=== PATIENT | female | born 1985 | race Caucasian/White ===

== ENCOUNTER 2019-07-26 02:26 | Emergency (ER) | payer SELFPAY ==
--- NOTE | 2019-07-26 02:51 | ER ---
Nurse's Notes [facility] Name: Ara Plunkett Age: 34 yrs Sex: Female : 1985 Arrival Date: 07/26/2019 Time: 02:29 Bed 20 Private MD: Diagnosis: Dental caries Presentation: 07/26 02:40 Presenting complaint: Patient states: "I am having sever tooth pain that travels down jd3 my neck.". Transition of care: patient was not received from another setting of care. Onset of symptoms was July 26, 2019. Risk Assessment: Do you want to hurt yourself or someone else? Patient reports no desire to harm self or others. Initial Sepsis Screen: Does the patient meet any 2 criteria? No. Patient's initial sepsis screen is negative. Does the patient have a suspected source of infection? No. Patient's initial sepsis screen is negative. Care prior to arrival: None. 02:40 Method Of Arrival: Ambulatory jd3 02:40 Acuity: CHARISSA 4 jd3 Triage Assessment: 03:12 EENT: Reports pain in mouth. 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 - Social history:: Smoking status: Patient uses tobacco products, smokes one pack cigarettes per day. - Ebola Screening: : Patient negative for fever greater than or equal to 101.5 degrees Fahrenheit, and additional compatible Ebola Virus Disease symptoms. Screenin:09 Abuse screen: Denies threats or abuse. Nutritional screening: No deficits noted. jd3 Tuberculosis screening: No symptoms or risk factors identified. Fall Risk Ambulatory Aid- None/Bed Rest/Nurse Assist (0 pts). Gait- Normal/Bed Rest/Wheelchair (0 pts) Mental Status- Oriented to own ability (0 pts). Total Hannah Fall Scale indicates No Risk (0-24 pts). Assessment: 02:40 General: Appears in no apparent distress. uncomfortable, well nourished, Behavior is jd3 calm, cooperative, appropriate for age. Pain: Complains of pain in mouth Pain radiates to neck Quality of pain is described as radiating, sharp. Neuro: Level of Consciousness is awake, alert, obeys commands, Oriented to person, place, time, situation. Cardiovascular: Capillary refill < 3 seconds Patient's skin is warm and dry. Respiratory: Airway is patent Respiratory effort is even, unlabored, Respiratory pattern is regular, symmetrical, Denies cough, shortness of breath labored breathing. GI: No signs and/or symptoms were reported involving the gastrointestinal system. : No signs and/or symptoms were reported regarding the genitourinary system. EENT: Oral mucosa is moist. Poor dentition noted. Absence of teeth noted - lower right second molar and lower right first molar and lower right second bicuspid and lower right first bicuspid. Derm: Skin is intact, Skin is dry, Skin is normal, Skin temperature is warm. Musculoskeletal: Circulation, motion, and sensation intact. Range of motion: intact in all extremities. 03:11 Reassessment: Patient appears in no apparent distress at this time. Patient and/or jd3 family updated on plan of care and expected duration. Pain level reassessed. Patient is alert, oriented x 3, equal unlabored respirations, skin warm/dry/pink. reported understanding of discharge instructions. Vital Signs: 02:42 BP 136 / 90; Pulse 95; Resp 19 S; Temp 98.1(O); Pulse Ox 100% on R/A; Weight 81.65 kg jd3 (R); Height 5 ft. 2 in. (157.48 cm) (R); Pain 10/10; 02:42 Body Mass Index 32.92 (81.65 kg, 157.48 cm) jd3 ED Course: 02:29 Patient arrived in ED. ag3 02:30 Brannon Cooper MD is Attending Physician. kdr 02:38 Dillon Wilde, VÍCTOR is Primary Nurse. jd3 02:41 Triage completed. jd3 02:42 Arm band placed on. jd3 02:49 Royal Ayers DDS is Referral Physician. kdr 03:12 No provider procedures requiring assistance completed. Patient did not have IV access jd3 during this emergency room visit. 03:13 Patient has correct armband on for positive identification. Bed in low position. Call jd3 light in reach. Side rails up X 1. Adult w/ patient. Administered Medications: 02:56 Drug: Amoxicillin 500 mg Route: PO; jd3 03:09 Follow up: Response: Medication administered at discharge. jd3 02:56 Drug: Flagyl 500 mg Route: PO; jd3 03:09 Follow up: Response: Medication administered at discharge. jd3 02:56 Drug: Nyssa 10 mg-325 mg 1 tabs Route: PO; jd3 03:09 Follow up: Response: Medication administered at discharge.; RASS: Restless (+1) jd3 Outcome: 02:50 Discharge ordered by . kdr 03:12 Discharged to home ambulatory, with family. jd3 03:12 Condition: stable 03:12 Discharge instructions given to patient, family, Instructed on discharge instructions, follow up and referral plans. medication usage, Demonstrated understanding of instructions, follow-up care, medications, Prescriptions given X 3. 03:13 Patient left the ED. jd3 Signatures: Brannon Cooper MD MD kdr Dillon Wilde RN RN jd3 Sandee Jacome ag3
--- NOTE | 2019-07-26 02:52 | EDPHYS ---
Physician Documentation [facility] Name: Ara Plunkett Age: 34 yrs Sex: Female : 1985 Arrival Date: 07/26/2019 Time: 02:29 Bed 20 Private MD: ED Physician Brannon Cooper HPI: 07/26 02:42 This 34 yrs old Female presents to ER via Ambulatory with complaints of kdr Toothache. 02:42 The patient presents with broken tooth/teeth, pain, swelling. The problem is located in kdr the lower right first bicuspid, lower right second bicuspid, lower right first molar and lower right second molar. Onset: The symptoms/episode began/occurred gradually, 3 day(s) ago. Duration: The symptoms are continuous, and are steadily getting worse. Modifying factors: The symptoms are alleviated by nothing, the symptoms are aggravated by chewing. Associated signs and symptoms: Pertinent positives: pain, Right facial pain. Severity of symptoms: At their worst the symptoms were moderate, in the emergency department the symptoms are unchanged. The patient has experienced similar episodes in the past, a few times. The patient has not recently seen a physician. 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 - Social history:: Smoking status: Patient uses tobacco products, smokes one pack cigarettes per day. - Ebola Screening: : Patient negative for fever greater than or equal to 101.5 degrees Fahrenheit, and additional compatible Ebola Virus Disease symptoms. ROS: 02:42 Constitutional: Negative for fever, chills, and weight loss, Eyes: Negative for injury, kdr pain, redness, and discharge, Neck: Negative for injury, pain, and swelling, Cardiovascular: Negative for chest pain, palpitations, and edema, Respiratory: Negative for shortness of breath, cough, wheezing, and pleuritic chest pain, Abdomen/GI: Negative for abdominal pain, nausea, vomiting, diarrhea, and constipation, Back: Negative for injury and pain, Skin: Negative for injury, rash, and discoloration, Neuro: Negative for headache, weakness, numbness, tingling, and seizure activity. Psych: Negative for depression, anxiety, suicide ideation, homicidal ideation, and hallucinations, Allergy/Immunology: Negative for hives, rash, and allergies, Endocrine: Negative for neck swelling, polydipsia, polyuria, polyphagia, and marked weight changes, Hematologic/Lymphatic: Negative for swollen nodes, abnormal bleeding, and unusual bruising. 02:42 ENT: Positive for dental pain, Negative for drainage from ear(s), tinnitus, rhinorrhea, difficulty swallowing, difficulty handling secretions. Exam: 02:42 Constitutional: This is a well developed, well nourished patient who is awake, alert, kdr and in no acute distress. Head/Face: Normocephalic, atraumatic. Eyes: Pupils equal round and reactive to light, extra-ocular motions intact. Lids and lashes normal. Conjunctiva and sclera are non-icteric and not injected. Cornea within normal limits. Periorbital areas with no swelling, redness, or edema. Neck: Trachea midline, no thyromegaly or masses palpated, and no cervical lymphadenopathy. Supple, full range of motion without nuchal rigidity, or vertebral point tenderness. No Meningismus. Chest/axilla: Normal chest wall appearance and motion. Nontender with no deformity. No lesions are appreciated. 02:42 ENT: All of upper teeth have been pulled. Remaining teeth on mandible have serious decay. Vital Signs: 02:42 BP 136 / 90; Pulse 95; Resp 19 S; Temp 98.1(O); Pulse Ox 100% on R/A; Weight 81.65 kg jd3 (R); Height 5 ft. 2 in. (157.48 cm) (R); Pain 10/10; 02:42 Body Mass Index 32.92 (81.65 kg, 157.48 cm) jd3 MDM: 02:42 Data reviewed: vital signs, nurses notes. Counseling: I had a detailed discussion with kdr the patient and/or guardian regarding: the historical points, exam findings, and any diagnostic results supporting the discharge/admit diagnosis, the need for outpatient follow up. 02:50 Patient medically screened. kdr Administered Medications: 02:56 Drug: Amoxicillin 500 mg Route: PO; jd3 03:09 Follow up: Response: Medication administered at discharge. jd3 02:56 Drug: Flagyl 500 mg Route: PO; jd3 03:09 Follow up: Response: Medication administered at discharge. jd3 02:56 Drug: Columbiana 10 mg-325 mg 1 tabs Route: PO; jd3 03:09 Follow up: Response: Medication administered at discharge.; RASS: Restless (+1) jd3 Disposition: 07/26/19 02:50 Discharged to Home. Impression: Dental caries. - Condition is Stable. - Discharge Instructions: Dental Pain, [id number]. - Prescriptions for Amoxicillin 500 mg Oral Capsule - take 1 capsule by ORAL route every 8 hours for 10 days; 30 tablet. Flagyl 500 mg Oral Tablet - take 1 tablet by ORAL route every 6 hours for 10 days; 40 tablet. Tramadol 50 mg Oral Tablet - take 1 tablet by ORAL route every 8 hours as needed; 18 tablet. - Medication Reconciliation Form, Thank You Letter, Antibiotic Education, Prescription Opioid Use form. - Follow up: Private Physician; When: 2 - 3 days; Reason: If symptoms return, Further diagnostic work-up, Recheck today's complaints, Continuance of care, Re-evaluation by your physician. Follow up: Royal Ayers DDS; When: 2 - 3 days; Reason: If symptoms return, Further diagnostic work-up, Recheck today's complaints, Continuance of care, Re-evaluation by your physician. - Problem is an acute exacerbation. - Symptoms have improved. Signatures: Brannon Cooper MD MD kdr Davies, Jonathon, RN RN jd3 Corrections: (The following items were deleted from the chart) 03:13 02:50 07/26/2019 02:50 Discharged to Home. Impression: Dental caries. Condition is jd3 Stable. Forms are Medication Reconciliation Form, Thank You Letter, Antibiotic Education, Prescription Opioid Use. Follow up: Private Physician; When: 2 - 3 days; Reason: If symptoms return, Further diagnostic work-up, Recheck today's complaints, Continuance of care, Re-evaluation by your physician. Follow up: Royal Ayers; When: 2 - 3 days; Reason: If symptoms return, Further diagnostic work-up, Recheck today's complaints, Continuance of care, Re-evaluation by your physician. Problem is an acute exacerbation. Symptoms have improved. kdr
[2019-07-26] MEDS ORDERED: metroNIDAZOLE 500 MG TABLET ONE (02:53)
[2019-07-26] MEDS ORDERED: HYDROCODONE/APAP 10/325 TAB ONE (02:54)
[2019-07-26] MEDS ORDERED: AMOXICILLIN TRIHYDR 250 MG CAP ONE (02:54)
== END 2019-07-26 03:13 | disposition home or self-care (01) ==
LOC: ER 02:26
DX: K02.9 Dental caries, unspecified (principal); E11.9 Type 2 diabetes mellitus without complications; F17.210 Nicotine dependence, cigarettes, uncomplicated
CPT/HCPCS: 99283

== ENCOUNTER 2019-07-26 21:41 | Emergency (ER) | payer SELFPAY ==
--- OUTSIDE RECORDS SUMMARY | 2019-07-26 21:43 | XMS REPORT | Clinical Summary ---
:1985 Author Organization [facility] Address [address] [place] [address] Care Team Providers Name Role Phone Pcp, No Primary Care Provider Unavailable Allergies No Known Allergies Medications Medication Sig Dispensed Refills Start Date End Date Status metFORMIN Take 1 tablet 30 tablet 3 04/09/2018 (GLUCOPHAGE-XR) (750 mg total) 9 750 MG 24 hr by mouth daily tablet with breakfast. fluconazole Take one today 2 tablet 0 06/15/2018 Discontinued (DIFLUCAN) 150 MG and another 24 9 tablet hours after all antibiotic are finished.. metFORMIN Take 1 tablet 30 tablet 11 06/15/2018 (GLUCOPHAGE-XR) (750 mg total) 9 750 MG 24 hr by mouth daily tablet with breakfast. fluconazole Take 1 tablet 1 tablet 0 12/21/2018 (DIFLUCAN) 150 MG (150 mg total) 9 tablet by mouth daily for 1 dose Take in 3 days, 12/24/18. cephalexin Take 1 capsule 40 capsule 0 12/21/2018 (KEFLEX) 500 MG (500 mg total) 9 capsule by mouth 4 (four) times daily for 10 days. Active Problems Problem Noted Date Pyelonephritis 04/04/2018 Type 2 diabetes mellitus with hyperglycemia, without long-term current use 10/2018 of insulin Leukocytosis, unspecified type 04/04/2018 Encounters Date Type Specialty Care Team Description 12/21/2018 Emergency Emergency Medicine Asuncion Rivera MD Acute cystitis without hematuria (Primary Dx); Hyperglycemia; Vulvovaginitis 12/21/2018 Travel after 07/25/2018 Social History Tobacco Use Types Packs/Day Years Used Date Current Every Day Smoker 2 Smokeless Tobacco: Never Used Alcohol Use Drinks/Week oz/Week Comments No Sex Assigned at Date Recorded Not on file Job Start Date Occupation Industry Not on file Not on file Not on file Travel History Travel Start Travel End No recent travel history available. Last Filed Vital Signs Vital Sign Reading Time Taken Blood Pressure 135/70 12/21/2018 2:03 PM [employer] Pulse 70 12/21/2018 2:03 PM [employer] Temperature 36.8 C (98.2 F) 12/21/2018 1:07 PM [employer] Respiratory Rate 16 12/21/2018 2:03 PM [employer] Oxygen Saturation 100% 12/21/2018 2:03 PM [employer] Inhaled Oxygen Concentration - - Weight 81.6 kg (180 lb) 12/21/2018 9:07 AM [employer] Height 157.5 cm (5' 2") 12/21/2018 9:07 AM [employer] Body Mass Index 32.92 12/21/2018 9:07 AM [employer] Plan of Treatment Not on file Procedures Procedure Name Priority Date/Time Associated Comments Diagnosis POCT-GLUCOSE METER Routine 12/21/2018 2:03 PM Results for this [employer] procedure are in the results section. POCT-GLUCOSE METER Routine 12/21/2018 1:06 PM Results for this [employer] procedure are in the results section. BASIC METABOLIC STAT 12/21/2018 9:47 AM Results for this PANEL (7) [employer] procedure are in the results section. WET PREP STAT 12/21/2018 9:45 AM Results for this [employer] procedure are in the results section. POCT-GLUCOSE METER Routine 12/21/2018 9:21 AM Results for this [employer] procedure are in the results section. SCREEN, STAT 12/21/2018 9:17 AM Results for this URINE [employer] procedure are in the results section. URINALYSIS W/ REFLEX STAT 12/21/2018 9:17 AM Results for this URINE CULTURE [employer] procedure are in the results section. URINE CULTURE STAT 12/21/2018 9:17 AM Results for this [employer] procedure are in the results section. after 07/25/2018 Results POC-Glucose meter (12/21/2018 2:03 PM [employer])Only the most recent of3 resultswithin the time period is included. POC-Glucose Meter 379 (H)Comment: TESTED AT 70 - 110 mg/dL [facility] [address] [facility] [id number] Specimen Blood Performing Organization Address City/State/Zipcode Phone Number [facility] [address] [place] [address] CENTER Basic Metabolic Panel (12/21/2018 9:47 AM [employer]) Sodium 134 (L) 135 - 148 meq/L [facility] Potassium 3.7 3.5 - 5.5 meq/L [facility] Chloride 99 98 - 106 meq/L [facility] CO2 24 20 - 31 meq/L [facility] BUN 6 (L) 10 - 26 mg/dL [facility] Creatinine 0.85 0.50 - 1.20 mg/dL [facility] Glucose 388 (H) 70 - 110 mg/dL [facility] Calcium 9.5 8.5 - 10.5 mg/dL [facility] EGFR 76Comment: ESTIMATED GFR IS NOT mL/min/1.73 sq m [facility] ACCURATE CREATININE CLEARANCE IN PREDICTING GLOMERULAR FILTRATION RATE. ESTIMATED GFR IS NOT APPLICABLE FOR DIALYSIS PATIENTS. Specimen Blood Performing Organization Address [facility] Phone Number [facility] [address] [place] [address] [phone] Wet prep, genital (12/21/2018 9:45 AM [employer]) WBC - wet prep Few white blood cells seen [facility] Clue cells - wet prep Few clue cells seen [facility] Yeast - wet prep No budding yeast seen [facility] Trichomonas - wet prep No Trichomonas seen [facility] Bacteria - wet prep Many bacteria seen [facility] Specimen Genital Performing Organization Address [facility] Phone Number [facility] [address] [place] [address] Urinalysis w/Microscopic + Reflex to Culture (12/21/2018 9:17 AM [employer]) Color, UA Yellow [facility] Clarity, UA Slightly Hazy [facility] Specific Dazey, UA 1.010 1.001 - 1.035 [facility] pH, UA 5.0 5.0 - 8.0 [facility] Protein, UA Negative Negative [facility] Glucose, UA >=1000 mg/dL (A) Negative [facility] Ketones, UA Negative Negative [facility] Bilirubin, UA Negative Negative [facility] Blood, UA Trace (A) Negative [facility] Nitrite, UA Positive (A) Negative [facility] Leukocytes, UA Negative Negative [facility] Urobilinogen, UA 0.2 0.2 - 1.0 mg/dL [facility] RBC, UA 2 /HPF [facility] WBC, UA 25 /HPF [facility] Bacteria, UA Many [facility] Specimen Source [facility] Specimen Urine Narrative Performed At Urinalysis was performed using the [employer] [facility] instrumentation. Microscopy was performed manually. Performing Organization Address [facility] Phone Number [facility] [address] [place] [address] [phone] Screen, urine (12/21/2018 9:17 AM [employer]) Preg Test, Ur Negative [facility] Specimen Urine Performing Organization Address [facility] Number [facility] [address] [place] [address] Urine culture (12/21/2018 9:17 AM [employer]) Result >100,000 col/mL Escherichia coli (A) [facility] Specimen Urine Organism Antibiotic Method Susceptibility Escherichia coli Amikacin <=2: Susceptible Escherichia coli Ampicillin + Sulbactam >=32: Resistant Escherichia coli Aztreonam <=1: Susceptible Escherichia coli Cefazolin 8: Susceptible Escherichia coli Cefepime <=1: Susceptible Escherichia coli Cefoxitin <=4: Susceptible Escherichia coli Ceftazidime <=1: Susceptible Escherichia coli Ceftriaxone <=1: Susceptible Escherichia coli Ertapenem <=0.5: Susceptible Escherichia coli Gentamicin >=16: Resistant Escherichia coli Levofloxacin >=8: Resistant Escherichia coli Meropenem <=0.25: Susceptible Escherichia coli Nitrofurantoin <=16: Susceptible Escherichia coli Piperacillin + Tazobactam Resistant Escherichia coli Tobramycin Resistant Escherichia coli Trimethoprim + Sulfamethoxazole >=320: Resistant Performing Organization Address [facility] [place] [facility] Phone Number [facility] [address] [place], [place] [address] [phone] after 07/25/2018 Advance Directives For more information, please contact:[address] [place], [place] [phone] Code Status Date Activated Date Inactivated Comments Full Code 04/04/2018 5:20 PM 04/09/2018 3:29 PM This code status was determined by: Patient
[2019-07-26] MEDS ORDERED: ONDANSETRON 4 MG (ODT) TAB ONE (22:07)
--- NOTE | 2019-07-26 23:46 | ER ---
Nurse's Notes [facility] Name: Ara Plunkett Age: 34 yrs Sex: Female : 1985 Arrival Date: 07/26/2019 Time: 21:45 Bed 23 Private MD: Diagnosis: Nausea and vomiting Presentation: 07/26 22:03 Presenting complaint: Patient states: I was here for a dental abscess and after I la1 started taking the abx I began vomiting. I am also having a pounding LEBRON. Transition of care: patient was not received from another setting of care. Onset of symptoms was July 26, 2019. Risk Assessment: Do you want to hurt yourself or someone else? Patient reports no desire to harm self or others. Initial Sepsis Screen: Does the patient meet any 2 criteria? No. Patient's initial sepsis screen is negative. Does the patient have a suspected source of infection? No. Patient's initial sepsis screen is negative. Care prior to arrival: None. 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 - Social history:: Smoking status: Patient/guardian denies using tobacco. - Ebola Screening: : No symptoms or risks identified at this time. Screenin/02 23:00 Abuse screen: Denies threats or abuse. Denies injuries from another. Nutritional screening: No deficits noted. Tuberculosis screening: No symptoms or risk factors identified. Fall Risk None identified. Assessment: 23:00 General: Appears in no apparent distress. Behavior is calm, cooperative, appropriate wh for age. Pain: Denies pain. Neuro: Level of Consciousness is awake, alert, obeys commands. Cardiovascular: Capillary refill < 3 seconds. Respiratory: Airway is patent Respiratory effort is even, unlabored, Respiratory pattern is regular, symmetrical. GI: Abdomen is flat, non-distended. GI: Abdomen is Reports nausea, vomiting, since this afternoon. : No signs and/or symptoms were reported regarding the genitourinary system. EENT: No signs and/or symptoms were reported regarding the EENT system. Derm: Skin is intact, is healthy with good turgor, Skin is pink, warm \T\ dry. normal. Musculoskeletal: Range of motion: intact in all extremities. 07/27 00:06 Reassessment: Patient appears in no apparent distress at this time. No changes from previously documented assessment. Patient and/or family updated on plan of care and expected duration. Pain level reassessed. Patient is alert, oriented x 3, equal unlabored respirations, skin warm/dry/pink. Patient states feeling better. Patient states symptoms have improved. Vital Signs: 07/26 22:04 BP 138 / 92; Pulse 89; Resp 16; Temp 97.5; Pulse Ox 100% on R/A; Weight 79.38 kg; la1 Height 5 ft. 2 in. (157.48 cm); 23:00 BP 133 / 95; Pulse 88; Resp 18; Pulse Ox 99% on R/A; 07/27 00:00 BP 120 / 66; Pulse 81; Resp 18; Pulse Ox 99% on R/A; wh 07/26 22:04 Body Mass Index 32.01 (79.38 kg, 157.48 cm) la1 ED Course: 07/26 21:45 Patient arrived in ED. cf2 22:03 Triage completed. la1 22:04 Arm band placed on right wrist. la1 22:39 Umair Dorsey PA is PHCP. jr8 22:39 Josiah Barney MD is Attending Physician. jr8 22:41 Vel Christensen is Primary Nurse. 23:00 Patient has correct armband on for positive identification. Bed in low position. Call light in reach. Side rails up X 1. Pulse ox on. NIBP on. 23:00 No provider procedures requiring assistance completed. Patient did not have IV access during this emergency room visit. Administered Medications: 22:07 Drug: Zofran 4 mg Route: PO; la1 23:45 Follow up: Response: No adverse reaction; Nausea is decreased 07/27 00:09 Follow up: Response: No adverse reaction; Nausea is decreased Outcome: 07/26 23:46 Discharge ordered by . eileen 07/27 00:08 Discharged to home ambulatory. Condition: good Discharge instructions given to patient, Instructed on discharge instructions, follow up and referral plans. medication usage, POC Nausea Demonstrated understanding of instructions, follow-up care, medications, POC Prescriptions given X 1. 00:12 Patient left the ED. Signatures: Umair Dorsey PA PA jr8 Jose Stringer RN RN la1 Vel Christensen June Oneill cf2 Corrections: (The following items were deleted from the chart) 00:08 0902 22:04 PMHx: Diabetes - NIDDM; mark
--- NOTE | 2019-07-26 23:47 | EDPHYS ---
Physician Documentation [facility] Name: Ara Plunkett Age: 34 yrs Sex: Female : 1985 Arrival Date: 07/26/2019 Time: 21:45 Bed 23 Private MD: ED Physician Josiah Barney HPI: 07/26 23:47 This 34 yrs old Female presents to ER via Ambulatory with complaints of Nausea/Vomiting.jr8 23:47 The patient presents to the emergency department with nausea, vomiting. Onset: The jr8 symptoms/episode began/occurred acutely, today. Possible causes: antibiotics, Flagyl, amoxil. The symptoms are aggravated by nothing. The symptoms are alleviated by nothing. Associated signs and symptoms: The patient has no apparent associated signs or symptoms. Severity of symptoms: At their worst the symptoms were mild in the emergency department the symptoms are unchanged. The patient has not experienced similar symptoms in the past. The patient has been recently seen by a physician:. Patient seen today for dental abscess and was put on pain medication and Abx. Stated that after taking her medication started to vomit. 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 - Social history:: Smoking status: Patient/guardian denies using tobacco. - Ebola Screening: : No symptoms or risks identified at this time. ROS: 07/26 23:47 Eyes: Negative for injury, pain, redness, and discharge, ENT: Negative for injury, jr8 pain, and discharge, Neck: Negative for injury, pain, and swelling, Cardiovascular: Negative for chest pain, palpitations, and edema, Respiratory: Negative for shortness of breath, cough, wheezing, and pleuritic chest pain, Back: Negative for injury and pain, MS/Extremity: Negative for injury and deformity, Skin: Negative for injury, rash, and discoloration, Neuro: Negative for headache, weakness, numbness, tingling, and seizure. Abdomen/GI: Positive for nausea and vomiting, Negative for abdominal pain, abdominal distension, anorexia, dysphagia, hematemesis, black/tarry stool, rectal pain, rectal bleeding, bowel incontinence, flatulence. Exam: 23:47 Eyes: Pupils equal round and reactive to light, extra-ocular motions intact. Lids and jr8 lashes normal. Conjunctiva and sclera are non-icteric and not injected. Cornea within normal limits. Periorbital areas with no swelling, redness, or edema. ENT: Nares patent. No nasal discharge, no septal abnormalities noted. Tympanic membranes are normal and external auditory canals are clear. Oropharynx with no redness, swelling, or masses, exudates, or evidence of obstruction, uvula midline. Mucous membranes moist. Neck: Trachea midline, no thyromegaly or masses palpated, and no cervical lymphadenopathy. Supple, full range of motion without nuchal rigidity, or vertebral point tenderness. No Meningismus. Cardiovascular: Regular rate and rhythm with a normal S1 and S2. No gallops, murmurs, or rubs. Normal PMI, no JVD. No pulse deficits. Respiratory: Lungs have equal breath sounds bilaterally, clear to auscultation and percussion. No rales, rhonchi or wheezes noted. No increased work of breathing, no retractions or nasal flaring. Abdomen/GI: Soft, non-tender, with normal bowel sounds. No distension or tympany. No guarding or rebound. No evidence of tenderness throughout. Back: No spinal tenderness. No costovertebral tenderness. Full range of motion. Skin: Warm, dry with normal turgor. Normal color with no rashes, no lesions, and no evidence of cellulitis. MS/ Extremity: Pulses equal, no cyanosis. Neurovascular intact. Full, normal range of motion. Neuro: Awake and alert, GCS 15, oriented to person, place, time, and situation. Cranial nerves II-XII grossly intact. Motor strength 5/5 in all extremities. Sensory grossly intact. Cerebellar exam normal. Normal gait. Vital Signs: 22:04 BP 138 / 92; Pulse 89; Resp 16; Temp 97.5; Pulse Ox 100% on R/A; Weight 79.38 kg; la1 Height 5 ft. 2 in. (157.48 cm); 23:00 BP 133 / 95; Pulse 88; Resp 18; Pulse Ox 99% on R/A; wh 07/27 00:00 BP 120 / 66; Pulse 81; Resp 18; Pulse Ox 99% on R/A; 07/26 22:04 Body Mass Index 32.01 (79.38 kg, 157.48 cm) la1 MDM: 07/26 22:39 Patient medically screened. [facility] 23:43 Data reviewed: vital signs, nurses notes, and as a result, I will discharge patient. [facility] Data interpreted: Pulse oximetry: on room air is 100 %. Interpretation: normal. Counseling: I had a detailed discussion with the patient and/or guardian regarding: the historical points, exam findings, and any diagnostic results supporting the discharge/admit diagnosis, the need for outpatient follow up, a dentist, to return to the emergency department if symptoms worsen or persist or if there are any questions or concerns that arise at home. 23:43 ED course: Discussed with patient to stop the flagyl and continue the Amoxil. Will add jr8 zofran as needed. To Eat before taking her medication. Administered Medications: 22:07 Drug: Zofran 4 mg Route: PO; [facility] 23:45 Follow up: Response: No adverse reaction; Nausea is decreased 07/27 00:09 Follow up: Response: No adverse reaction; Nausea is decreased Disposition: 06:32 Co-signature as Attending Physician, Josiah Barney MD. [email or web address] Disposition: 07/26/19 23:46 Discharged to Home. Impression: Nausea and vomiting. - Condition is Stable. - Discharge Instructions: Nausea and Vomiting, Adult. - Prescriptions for Zofran ODT 4 mg Oral tablet,disintegrating - place 1 tablet by TRANSLINGUAL route every 8 hours As needed; 12 tablet. - Medication Reconciliation Form, Thank You Letter, Antibiotic Education, Prescription Opioid Use form. - Follow up: Private Physician; When: 2 - 3 days; Reason: Recheck today's complaints, Continuance of care, Re-evaluation by your physician. - Problem is new. - Symptoms have improved. Signatures: Dispatcher [employer] EDMS Josiah Barney MD MD pkl Umair Dorsey PA PA 8 Jose Stringer RN RN pr1 Vel Christensen Corrections: (The following items were deleted from the chart) 07/26 23:43 23:29 IV Saline Lock ordered. [facility] 43 23:29 Labs collected and sent ordered. [facility] 44 23:29 Urine Test ordered. [facility] 23:44 23:29 Urine Dipstick-Ancillary ordered. jr8 07/27 00:08 07/26 22:04 PMHx: Diabetes - NIDDM; la1 07/27 00:12 07/26 23:46 07/26/2019 23:46 Discharged to Home. Impression: Nausea and vomiting. Condition is Stable. Forms are Medication Reconciliation Form, Thank You Letter, Antibiotic Education, Prescription Opioid Use. Follow up: Private Physician; When: 2 - 3 days; Reason: Recheck today's complaints, Continuance of care, Re-evaluation by your physician. Problem is new. Symptoms have improved. jr8
== END 2019-07-27 00:12 | disposition home or self-care (01) ==
LOC: ER 21:41
DX: R11.2 Nausea with vomiting, unspecified (principal)
CPT/HCPCS: 99283

== ENCOUNTER 2019-07-27 13:56 | Emergency (ER) | payer SELFPAY ==
--- OUTSIDE RECORDS SUMMARY | 2019-07-27 13:58 | XMS REPORT | Clinical Summary ---
:1985 Author Organization [facility] Address [address] [place] [address] Care Team Providers Name Role Phone Pcp, [...] (Primary Dx); Hyperglycemia; Vulvovaginitis 12/21/2018 Travel after 07/26/2018 Social History Tobacco Use Types Packs/Day Years [...] Taken Blood Pressure 135/70 12/21/2018 2:03 PM SNUFF MAKER Pulse 70 12/21/2018 2:03 PM SNUFF MAKER Temperature 36.8 C (98.2 F) 12/21/2018 1:07 PM SNUFF MAKER Respiratory Rate 16 12/21/2018 2:03 PM SNUFF MAKER Oxygen Saturation 100% 12/21/2018 2:03 PM SNUFF MAKER Inhaled Oxygen Concentration - - Weight 81.6 kg (180 lb) 12/21/2018 9:07 AM SNUFF MAKER Height 157.5 cm (5' 2") 12/21/2018 9:07 AM SNUFF MAKER Body Mass Index 32.92 12/21/2018 9:07 AM SNUFF MAKER Plan of Treatment Not on file Procedures Procedure Name Priority Date/Time Associated Comments Diagnosis POCT-GLUCOSE METER Routine 12/21/2018 2:03 PM Results for this SNUFF MAKER procedure are in the results section. POCT-GLUCOSE METER Routine 12/21/2018 1:06 PM Results for this SNUFF MAKER procedure are in the results section. BASIC METABOLIC STAT 12/21/2018 9:47 AM Results for this PANEL (7) SNUFF MAKER procedure are in the results section. WET PREP STAT 12/21/2018 9:45 AM Results for this SNUFF MAKER procedure are in the results section. POCT-GLUCOSE METER Routine 12/21/2018 9:21 AM Results for this SNUFF MAKER procedure are in the results section. SCREEN, STAT 12/21/2018 9:17 AM Results for this URINE SNUFF MAKER procedure are in the results section. URINALYSIS W/ REFLEX STAT 12/21/2018 9:17 AM Results for this URINE CULTURE SNUFF MAKER procedure are in the results section. URINE CULTURE STAT 12/21/2018 9:17 AM Results for this SNUFF MAKER procedure are in the results section. after 07/26/2018 Results POC-Glucose meter (12/21/2018 2:03 PM SNUFF MAKER)Only the most recent of3 resultswithin the time period is included. POC-Glucose Meter 379 (H)Comment: TESTED AT 70 - 110 mg/dL [facility] [id number] [facility] [id number] Specimen Blood Performing Organization Address City/State/Zipcode Phone Number [facility] [address] [place] [address] [phone] CENTER Basic Metabolic Panel (12/21/2018 9:47 AM SNUFF MAKER) Sodium 134 (L) 135 - 148 meq/L [facility] Potassium 3.7 3.5 - 5.5 meq/L [facility] Chloride 99 98 - 106 meq/L [facility] CO2 24 20 - 31 meq/L [facility] BUN 6 (L) 10 - 26 mg/dL [facility] Creatinine 0.85 0.50 - 1.20 mg/dL [facility] Glucose 388 (H) 70 - 110 mg/dL [facility] Calcium 9.5 8.5 - 10.5 mg/dL [facility] EGFR 76Comment: ESTIMATED GFR IS NOT mL/min/1.73 sq m [facility] ACCURATE CREATININE CLEARANCE IN PREDICTING GLOMERULAR FILTRATION RATE. ESTIMATED GFR IS NOT APPLICABLE FOR DIALYSIS PATIENTS. Specimen Blood Performing Organization Address [facility] Phone Number [facility] [address] [place] [address] Wet prep, genital (12/21/2018 9:45 AM SNUFF MAKER) WBC - wet prep Few white blood cells seen [facility] Clue cells - wet prep Few clue cells seen [facility] Yeast - wet prep No budding yeast seen [facility] Trichomonas - wet prep No Trichomonas seen [facility] Bacteria - wet prep Many bacteria seen [facility] Specimen Genital Performing Organization Address [facility] Phone Number [facility] [address] [place] [address] Urinalysis w/Microscopic + Reflex to Culture (12/21/2018 9:17 AM SNUFF MAKER) Color, UA Yellow [facility] Clarity, UA Slightly Hazy [facility] Specific Chandler, UA 1.010 1.001 - 1.035 [facility] pH, UA 5.0 5.0 - 8.0 [facility] Protein, UA Negative Negative [facility] Glucose, UA >=1000 mg/dL (A) Negative [facility] Ketones, UA Negative Negative [facility] Bilirubin, UA Negative Negative [facility] Blood, UA Trace (A) Negative [facility] Nitrite, UA Positive (A) Negative [facility] Leukocytes, UA Negative Negative [facility] Urobilinogen, UA 0.2 0.2 - 1.0 mg/dL [facility] RBC, UA 2 /HPF [facility] WBC, UA 25 /HPF [facility] Bacteria, UA Many [facility] Specimen Source [facility] Specimen Urine Narrative Performed At Urinalysis was performed using the [employer] [facility] instrumentation. Microscopy was performed manually. Performing Organization Address [facility] Phone Number [facility] [address] [place] [address] [phone] Screen, urine (12/21/2018 9:17 AM SNUFF MAKER) Preg Test, Ur Negative [facility] Specimen Urine Performing Organization Address [facility] Number [facility] [address] [place] [address] Urine culture (12/21/2018 9:17 AM SNUFF MAKER) Result >100,000 col/mL Escherichia coli (A) [facility] Specimen Urine Organism Antibiotic Method Susceptibility [...] + Sulfamethoxazole >=320: Resistant Performing Organization Address [facility] Phone Number [facility] [address] [place], [place] [phone] after 07/26/2018 Advance Directives For more information, please contact:[address] [place], [place] [phone] Code Status Date Activated Date Inactivated Comments Full Code 04/04/2018 5:20 PM 04/09/2018 3:29 PM This code status was determined by: Patient
[2019-07-27 16:31] LABS: Urine Blood NEGATIVE (NEG); Urine Glucose 2+ (NEG); Urine Protein NEGATIVE (NEG); Urine Specific Gravity <1.005 (1.005-1.030)
[2019-07-27] MEDS ORDERED: METOCLOPRAMIDE 10 MG/2mL INJ ONE (16:34)
[2019-07-27] MEDS ORDERED: DIPHENHYDRAMINE 50 MG/ML VIAL ONE (16:34)
[2019-07-27] MEDS ORDERED: NA CHLORIDE 0.9% 1,000 ML ONE ×2 (16:34→18:36)
[2019-07-27 16:56] LABS: Absolute Lymphocytes (CBC) 2.5 K/uL (0.7-4.9); Hematocrit 41.1 % (36.0-45.0); Lymphocytes % 29.1 % (15.3-44.8); MPV 8.1 fL (7.6-11.3); RBC Red Blood Cell Count 4.63 M/uL (3.86-4.86)
[2019-07-27 18:19] LABS: ALT/SGPT 14 U/L (12-78); AST/SGOT 8 U/L (15-37); Albumin 3.3 g/dL (3.4-5.0); Alkaline Phosphatase 86 U/L (45-117); BUN Blood Urea Nitrogen 6 mg/dL (7-18); Bicarbonate 27 mmol/L (21-32); Bilirubin Direct 0.1 mg/dL (0-0.2); Bilirubin Total 0.5 mg/dL (0.2-1.0); Lipase 155 U/L (73-393); Potassium 3.5 mmol/L (3.5-5.1); Protein, Total 7.3 g/dL (6.4-8.2); Sodium Level 135 mmol/L (136-145); Troponin (Emerg Dept Use Only) < 0.02 ng/mL (0.0-0.045)
[2019-07-27 18:23] LABS: Glucose Level 422 mg/dL (74-106)
--- NOTE | 2019-07-27 18:47 | RAD REPORT ---
EXAM DESCRIPTION: CT - Abdomen Pelvis W Contrast - 07/27/2019 6:19 pm CLINICAL HISTORY: abdominal pain, vomiting COMPARISON: None. TECHNIQUE: Biphasic, helical CT imaging of the abdomen and pelvis was performed following 100 ml non -ionic IV contrast. Oral contrast was given. All CT scans are performed using dose optimization technique as appropriate and may include automated exposure control or mA/KV adjustment according to patient size. FINDINGS: No suspicious findings in the lung bases. The liver, spleen, and pancreas show no suspicious findings. Gallbladder is normal size. No wall thic kening or edema. Patient has several gallstones present but no evidence for active gallbladder proces s. No biliary tree dilatation. No hydronephrosis or obstructing calculi. No perinephric stranding seen. Both kidneys show a slightly heterogeneous enhancement pattern over what is typically encounter. Minimal pyelonephritis is possib le but would need correlation with clinical and laboratory findings. No solid mass lesion. No bladder wall thickening or enhancement. No cystitis findings. No adrenal abnormality is present. Uterus and right ovary show no suspicious findings. Left ovary is normal size. There is a small amoun t of strandy fluid in the cul-de-sac and left adnexa. Quantity is not outside of normal range. Patien t potentially has a ruptured or leaking left ovarian cyst. No dilated bowel loops or bowel wall thickening. No appendicitis findings. No free air, free fluid or inflammatory stranding. No hernia, mass or bulky lymphadenopathy. No suspicious bony findings. IMPRESSION: Slight heterogeneity of the bilateral renal parenchymal enhancement pattern. A mild pyel onephritis is possible but needs correlation with clinical and laboratory findings. No cyst I disc or bladder abnormality seen. Cholelithiasis without evidence for active gallbladder disease. Minimal amount of strandy fluid in the cul de sac and left adnexum. Quantity not outside of normal ra nge but could be from a leaking left ovarian cyst.
[2019-07-27] MEDS ORDERED: KETOROLAC 30 MG/ML INJ ONE (20:22)
[2019-07-27] MEDS ORDERED: NA CHLORIDE 0.9% 100 ML IV ONE (20:26)
[2019-07-27] MEDS ORDERED: CEFTRIAXONE 1000 MG/VIAL ONE (20:26)
--- NOTE | 2019-07-27 20:53 | ER ---
Nurse's Notes [facility] Name: Ara Plunkett Age: 34 yrs Sex: Female : 1985 Arrival Date: 07/27/2019 Time: 14:02 Bed 24 Private MD: Diagnosis: Acute Pyelonephritis Presentation: 07/27 14:10 Presenting complaint: N/V x 3 days. Not tolerating fluids. Denies fever. Transition of hb care: patient was not received from another setting of care. Onset of symptoms was July 25, 2019. Risk Assessment: Do you want to hurt yourself or someone else? Patient reports no desire to harm self or others. Initial Sepsis Screen: Does the patient meet any 2 criteria? No. Patient's initial sepsis screen is negative. Does the patient have a suspected source of infection? No. Patient's initial sepsis screen is negative. Care prior to arrival: None. 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 - Social history:: Smoking status: Patient/guardian denies using tobacco. - Ebola Screening: : No symptoms or risks identified at this time. Screenin:20 Abuse screen: Denies threats or abuse. Nutritional screening: No deficits noted. tw2 Tuberculosis screening: No symptoms or risk factors identified. Fall Risk None identified. Assessment: 16:18 General: Appears in no apparent distress. uncomfortable, Behavior is calm, cooperative, tw2 appropriate for age. Pain: Complains of pain in abdomen. Neuro: Level of Consciousness is awake, alert, obeys commands, Oriented to person, place, time, situation. Cardiovascular: Heart tones S1 S2 Patient's skin is warm and dry. Respiratory: Airway is patent Respiratory effort is even, unlabored, Respiratory pattern is regular, symmetrical, Breath sounds are clear bilaterally. GI: Bowel sounds present X 4 quads. Abd is soft X 4 quads Reports lower abdominal pain, upper abdominal pain, nausea, vomiting. : No signs and/or symptoms were reported regarding the genitourinary system. EENT: No signs and/or symptoms were reported regarding the EENT system. Derm: No signs and/or symptoms reported regarding the dermatologic system. Musculoskeletal: Range of motion: intact in all extremities. 17:22 Reassessment: Patient appears in no apparent distress at this time. Patient and/or tw2 family updated on plan of care and expected duration. Pain level reassessed. Patient is alert, oriented x 3, equal unlabored respirations, skin warm/dry/pink. Patient states feeling better. 18:29 Reassessment: Patient appears in no apparent distress at this time. Patient and/or tw2 family updated on plan of care and expected duration. Pain level reassessed. Patient is alert, oriented x 3, equal unlabored respirations, skin warm/dry/pink. 20:00 Reassessment: Patient appears in no apparent distress at this time. Patient and/or mg2 family updated on plan of care and expected duration. Pain level reassessed. Patient is alert, oriented x 3, equal unlabored respirations, skin warm/dry/pink. Vital Signs: 14:12 BP 149 / 102; Pulse 89; Resp 16; Temp 98.8; Pulse Ox 100% on R/A; Weight 79.38 kg; hb Height 5 ft. 2 in. (157.48 cm); Pain 7/10; 16:13 BP 134 / 88; Pulse 86; Resp 17; Temp 98.0; Pulse Ox 99% on R/A; tw2 17:22 BP 124 / 68; Pulse 86; Resp 17; Pulse Ox 100% on R/A; Pain 5/10; tw2 18:28 BP 140 / 74; Pulse 90; Resp 17; Pulse Ox 100% on R/A; Pain 6/10; tw2 14:12 Body Mass Index 32.01 (79.38 kg, 157.48 cm) hb ED Course: 14:02 Patient arrived in ED. mr 14:11 Triage completed. hb 14:12 Arm band placed on. hb 16:05 Bed in low position. Call light in reach. Adult w/ patient. Pulse ox on. NIBP on. tw2 16:07 Michael Emmanuel PA is PHCP. [facility] 16:07 Reno Kirkpatrick MD is Attending Physician. [facility] 16:09 Ling Zaldivar RN is Primary Nurse. tw2 17:36 Radiology exam delayed due to lab results not completed at this time. (BUN/Creatinine) nj test not completed at this time. 17:54 Radiology exam delayed due to lab results not completed at this time. (BUN/Creatinine) nj test not completed at this time. 18:24 CT Abd/Pelvis - IV Contrast Only In Process Unspecified. EDMS 19:15 Report given to VÍCTOR Carson. tw2 21:11 No provider procedures requiring assistance completed. IV discontinued, intact, mg2 bleeding controlled, No redness/swelling at site. Pressure dressing applied. Administered Medications: 16:42 Drug: NS 0.9% 1000 ml Route: IV; Rate: 1 bolus; Site: right antecubital; tw2 17:30 Follow up: Response: No adverse reaction; IV Status: Completed infusion; IV Intake: tw2 1000ml 16:42 Drug: Reglan 10 mg Route: IVP; Site: right antecubital; tw2 18:34 Follow up: Response: No adverse reaction tw2 16:42 Drug: diphenhydrAMINE 12.5 mg Route: IVP; Site: right antecubital; tw2 18:34 Follow up: Response: No adverse reaction tw2 18:39 Drug: NS 0.9% 1000 ml Route: IV; Rate: 1 bolus; Site: right antecubital; tw2 21:11 Follow up: Response: No adverse reaction; IV Status: Completed infusion; IV Intake: mg2 1000ml 20:24 Drug: Ketorolac 30 mg Route: IVP; Site: right antecubital; rv 20:46 Follow up: Response: No adverse reaction; Marked relief of symptoms mg2 20:37 Drug: Rocephin - (cefTRIAXone) 2 grams Route: IVPB; Infused Over: 30 mins; Site: right mg2 antecubital; 21:10 Follow up: Response: No adverse reaction; Marked relief of symptoms; IV Status: mg2 Completed infusion Point of Care Testing: Blood Glucose: 19:58 Blood Glucose: 292 mg/dL; mg2 Ranges: Intake: 17:30 IV: 1000ml; Total: 1000ml. tw2 21:11 IV: 1000ml; Total: 2000ml. mg2 Outcome: 20:52 Discharge ordered by . [email or web address] 21:11 Discharged to home ambulatory, with family. mg2 21:11 Condition: stable 21:11 Discharge instructions given to patient, Instructed on discharge instructions, follow up and referral plans. medication usage, Demonstrated understanding of instructions, follow-up care, medications, Prescriptions given X 2. 21:12 Patient left the ED. mg2 Signatures: Dispatcher [employer] EDMS Michael Emmanuel PA PA jmm Rivera, Mary mr CottonIdalmis RN RN Ling Zaldivar RN RN tw2 Adam Mckenzie Michele RN RN mg2 Gómez Sidhu RN RN rv
--- NOTE | 2019-07-27 20:54 | EDPHYS ---
Physician Documentation [facility] Name: Ara Plunkett Age: 34 yrs Sex: Female : 1985 Arrival Date: 07/27/2019 Time: 14:02 Bed 24 Private MD: ED Physician Reno Kirkpatrick HPI: 07/27 16:27 This 34 yrs old Female presents to ER via Ambulatory with complaints of jmm Abdominal Pain. 16:27 The patient presents with abdominal pain. Onset: The symptoms/episode began/occurred jmm gradually, 2 day(s) ago. The symptoms do not radiate. Modifying factors: The symptoms are alleviated by nothing, the symptoms are aggravated by food. This is a 34 year old female with a history of dm that presents to the ED with complaints of vomiting, abdominal pain which began this past Friday. Patient is currently on amoxicillin, flagyl, for dental infection. Patient evaluated yesterday and prescribed zofran without relief. . 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 - Social history:: Smoking status: Patient/guardian denies using tobacco. - Ebola Screening: : No symptoms or risks identified at this time. ROS: 16:29 Constitutional: Negative for fever, chills, and weight loss, Cardiovascular: Negative jmm for chest pain, palpitations, and edema, Respiratory: Negative for shortness of breath, cough, wheezing, and pleuritic chest pain. 16:29 Back: Negative for injury and pain, MS/Extremity: Negative for injury and deformity. 16:29 Abdomen/GI: Positive for abdominal pain, nausea and vomiting. 16:29 All other systems are negative. Exam: 16:29 Constitutional: This is a well developed, well nourished patient who is awake, alert, jmm and in no acute distress. Head/Face: atraumatic. Eyes: EOMI, no conjunctival erythema appreciated ENT: Moist Mucus Membranes Neck: Trachea midline, Supple Chest/axilla: Normal chest wall appearance and motion. Cardiovascular: Regular rate and rhythm. No edema appreciated Respiratory: Normal respirations, no respiratory distress appreciated 16:29 Back: Normal ROM Skin: General appearance color normal MS/ Extremity: Moves all extremities, no obvious deformities appreciated, no edema noted to the lower extremities Neuro: Awake and alert, normal gait Psych: Behavior is normal, Mood is normal, Patient is cooperative and pleasant 16:29 Abdomen/GI: Inspection: abdomen appears normal, Bowel sounds: normal, Palpation: soft, mild abdominal tenderness, in all quadrants. Vital Signs: 14:12 BP 149 / 102; Pulse 89; Resp 16; Temp 98.8; Pulse Ox 100% on R/A; Weight 79.38 kg; hb Height 5 ft. 2 in. (157.48 cm); Pain 7/10; 16:13 BP 134 / 88; Pulse 86; Resp 17; Temp 98.0; Pulse Ox 99% on R/A; tw2 17:22 BP 124 / 68; Pulse 86; Resp 17; Pulse Ox 100% on R/A; Pain 5/10; tw2 18:28 BP 140 / 74; Pulse 90; Resp 17; Pulse Ox 100% on R/A; Pain 6/10; tw2 14:12 Body Mass Index 32.01 (79.38 kg, 157.48 cm) hb MDM: 16:20 Patient medically screened. [facility] 16:30 Data reviewed: vital signs, nurses notes. [facility] 20:50 Data reviewed: lab test result(s), radiologic studies, CT scan. ED course: Patient delia tolerates PO in the ED. Patient is alert and non toxic in appearance in the ED. Patient given strict return precautions. Patient understood and agrees with the plan of care. . 07/27 16:19 Order name: Urine Dipstick--Ancillary (enter results) 1 07/27 16:26 Order name: Basic Metabolic Panel; Complete Time: 18:33 [facility] 07/27 16:26 Order name: CBC with Diff; Complete Time: 17:19 [facility] 07/27 16:26 Order name: Creatinine for Radiology; Complete Time: 17:19 [facility] 07/27 16:26 Order name: Hepatic Function; Complete Time: 18:33 [facility] 07/27 16:26 Order name: Lipase; Complete Time: 18:33 [facility] 07/27 16:26 Order name: Troponin (emerg Dept Use Only); Complete Time: 18:33 [facility] 07/27 16:29 Order name: Test, Serum; Complete Time: 17:26 [facility] 07/27 16:32 Order name: Urine Dipstick-Ancillary [facility] 07/27 17:26 Order name: CT Abd/Pelvis - IV Contrast Only; Complete Time: 20:46 [facility] 07/27 16:26 Order name: IV Saline Lock; Complete Time: 17:19 [facility] 07/27 16:26 Order name: Labs collected and sent; Complete Time: 17:20 [facility] Administered Medications: 16:42 Drug: NS 0.9% 1000 ml Route: IV; Rate: 1 bolus; Site: right antecubital; tw2 17:30 Follow up: Response: No adverse reaction; IV Status: Completed infusion; IV Intake: tw2 1000ml 16:42 Drug: Reglan 10 mg Route: IVP; Site: right antecubital; tw2 18:34 Follow up: Response: No adverse reaction tw2 16:42 Drug: diphenhydrAMINE 12.5 mg Route: IVP; Site: right antecubital; tw2 18:34 Follow up: Response: No adverse reaction tw2 18:39 Drug: NS 0.9% 1000 ml Route: IV; Rate: 1 bolus; Site: right antecubital; tw2 21:11 Follow up: Response: No adverse reaction; IV Status: Completed infusion; IV Intake: mg2 1000ml 20:24 Drug: Ketorolac 30 mg Route: IVP; Site: right antecubital; rv 20:46 Follow up: Response: No adverse reaction; Marked relief of symptoms mg2 20:37 Drug: Rocephin - (cefTRIAXone) 2 grams Route: IVPB; Infused Over: 30 mins; Site: right mg2 antecubital; 21:10 Follow up: Response: No adverse reaction; Marked relief of symptoms; IV Status: mg2 Completed infusion Point of Care Testing: Blood Glucose: 19:58 Blood Glucose: 292 mg/dL; mg2 Ranges: Critical Glucose Levels:Adult <50 mg/dl or >400 mg/dl <40 mg/dl or >180 mg/dl Disposition: 21:51 Co-signature as Attending Physician, Reno Kirkpatrick MD Available for consultation at ps1 all times . Disposition: 07/27/19 20:52 Discharged to Home. Impression: Acute Pyelonephritis. - Condition is Stable. - Discharge Instructions: Pyelonephritis, Adult. - Prescriptions for Cipro 500 mg Oral Tablet - take 1 tablet by ORAL route every 12 hours for 7 days; 20 tablet. promethazine 25 mg Rectal suppository - insert 1 suppository by RECTAL route 2 times per day; 20 suppository. - Medication Reconciliation Form, Thank You Letter, Antibiotic Education, Prescription Opioid Use, Work release form, Family Work Release form. - Follow up: Private Physician; When: 2 - 3 days; Reason: Recheck today's complaints, Continuance of care, Re-evaluation by your physician. Signatures: Dispatcher [employer] EDMS Michael Emmanuel PA PA jmm Baxter, Heather, RN RN hb Ling Zaldivar RN RN tw2 Reno Kirkpatrick MD MD ps1 Urbano Espinoza RN RN mg2 Gómez Sidhu RN RN rv Corrections: (The following items were deleted from the chart) 21:12 20:52 07/27/2019 20:52 Discharged to Home. Impression: Acute Pyelonephritis. Condition mg2 is Stable. Forms are Work release form, Family Work Release, Medication Reconciliation Form, Thank You Letter, Antibiotic Education, Prescription Opioid Use. Follow up: Private Physician; When: 2 - 3 days; Reason: Recheck today's complaints, Continuance of care, Re-evaluation by your physician. delia
== END 2019-07-27 21:12 | disposition home or self-care (01) ==
LOC: ER 13:56
DX: N10 Acute pyelonephritis (principal); E11.9 Type 2 diabetes mellitus without complications
CPT/HCPCS: 36415; 74177; 80048; 80076; 81003; 82962; 83690; 84484; 84703; 85025; 96361; 96365; 96375; 99284; J2765; J7030; Q9967

== ENCOUNTER 2019-11-25 23:22 | Emergency (ER) | payer SELFPAY ==
[2019-11-26] MEDS ORDERED: dexAMETHasone 10 MG/ML VIAL ONE (00:32)
[2019-11-26] MEDS ORDERED: MORPHINE 2 MG/ML SYR ONE ×2 (00:32→01:35)
[2019-11-26] MEDS ORDERED: DIAZEPAM 5 MG TABLET ONE (00:32)
[2019-11-26] MEDS ORDERED: KETOROLAC 30 MG/ML INJ ONE (00:33)
[2019-11-26] MEDS ORDERED: ONDANSETRON 4 MG/2 ML VIAL ONE (00:33)
[2019-11-26 00:36] LABS: Absolute Lymphocytes (CBC) 2.7 K/uL (0.7-4.9); Basophils % 0.7 % (0-1.3); Hematocrit 41.8 % (36.0-45.0); Lymphocytes % 28.9 % (15.3-44.8); MPV 8.1 fL (7.6-11.3); RBC Red Blood Cell Count 4.66 M/uL (3.86-4.86)
[2019-11-26 00:54] LABS: Albumin 3.6 g/dL (3.4-5.0); Bilirubin Total 0.3 mg/dL (0.2-1.0); Potassium 3.3 mmol/L (3.5-5.1); Protein, Total 7.5 g/dL (6.4-8.2)
[2019-11-26] MEDS ORDERED: POTASSIUM 25 MEQ EFFERV TAB ONE (01:25)
[2019-11-26] MEDS ORDERED: INSULIN -REGULAR HUMAN 50 UNIT/0.5 ML ML ONE (01:26)
--- NOTE | 2019-11-26 01:51 | ER ---
Nurse's Notes [facility] Name: Ara Plunkett Age: 34 yrs Sex: Female : 1985 Arrival Date: 11/25/2019 Time: 23:24 Bed 23 Private MD: Diagnosis: Sciatica, right side;Vomiting;Diarrhea, unspecified;Type 2 diabetes mellitus;Hypokalemia Presentation: 11/26 00:08 Presenting complaint: Patient states: "My head and back have been killing me and now it tr5 is radiating down my right leg.". Transition of care: patient was not received from another setting of care. Onset of symptoms was November 26, 2019. Risk Assessment: Do you want to hurt yourself or someone else? Patient reports no desire to harm self or others. Initial Sepsis Screen: Does the patient meet any 2 criteria? No. Patient's initial sepsis screen is negative. Does the patient have a suspected source of infection? No. Patient's initial sepsis screen is negative. Care prior to arrival: None. 00:08 Method Of Arrival: Ambulatory tr5 00:08 Acuity: CHARISSA 3 tr5 Historical: - Allergies: 01:07 No Known Allergies; tr5 - Home Meds: 01:07 Metformin Oral [Active]; tr5 - PMHx: 01:07 Diabetes - NIDDM; tr5 - PSHx: 01:07 None; tr5 - Immunization history:: Adult Immunizations up to date. - Family history:: Significant other has/had. - Social history:: Smoking status: Patient uses tobacco products, smokes one-half pack cigarettes per day. - Ebola Screening: : No symptoms or risks identified at this time. - Hospitalizations: : No recent hospitalization is reported. Screenin:07 Abuse screen: Denies threats or abuse. Nutritional screening: No deficits noted. tr5 Tuberculosis screening: No symptoms or risk factors identified. Fall Risk None identified. Assessment: 00:50 General: Appears uncomfortable, Behavior is calm, cooperative. Pain: Complains of pain tr5 in scalp and back Pain radiates to right leg Pain currently is 10 out of 10 on a pain scale. Neuro: Level of Consciousness is awake, alert, obeys commands, Oriented to person, place, time, Operations Lieutenant are equal bilaterally Moves all extremities. Cardiovascular: Heart tones present Capillary refill < 3 seconds Pulses are all present. Edema is absent. Respiratory: Airway is patent Respiratory effort is even, unlabored, Respiratory pattern is regular, symmetrical. GI: No signs and/or symptoms were reported involving the gastrointestinal system. : No signs and/or symptoms were reported regarding the genitourinary system. EENT: No signs and/or symptoms were reported regarding the EENT system. Derm: No signs and/or symptoms reported regarding the dermatologic system. Musculoskeletal: Reports pain in back and right leg. 01:56 Reassessment: Patient appears in no apparent distress at this time. Patient is alert, tr5 oriented x 3, equal unlabored respirations, skin warm/dry/pink. Patient states feeling better. Vital Signs: 11/25 23:42 BP 128 / 75 LA (auto/lg); Pulse 95 MON; Resp 18 S; Temp 98.2(O); Pulse Ox 99% on R/A; jp3 Weight 79.38 kg (R); Height 5 ft. 2 in. (157.48 cm) (R); Pain 8/10; 11/26 01:07 BP 130 / 84; Pulse 78; Resp 17; Pulse Ox 100% on R/A; tr5 01:56 BP 129 / 77; Pulse 79; Resp 16; Temp 97.8(O); Pulse Ox 99% on R/A; tr5 11/25 23:42 Body Mass Index 32.01 (79.38 kg, 157.48 cm) jp3 ED Course: 11/25 23:24 Patient arrived in ED. cl3 23:43 Safety checks: Family/friend present: yes. Patient has correct armband on for positive jp3 identification. Bed in low position. Call light in reach. Side rails up X 1. Side rails up X2. Warm blanket given. Verbal reassurance given. Pulse ox on. NIBP on. 23:43 Patient maintains SpO2 saturation greater than 95% on room air. jp3 23:47 Rashad Melgoza MD is Attending Physician. bobbi 23:55 Celio Rincon, VÍCTOR is Primary Nurse. tr5 11/26 00:08 Arm band placed on Patient placed. tr5 00:30 Initial lab(s) drawn, by me, sent to lab. Inserted saline lock: 20 gauge in right tr5 antecubital area, using aseptic technique. 01:10 Lumbar Spine (3 Views) XRAY In Process Unspecified. EDMS 01:32 Nikolas East MD is Referral Physician. bobbi 01:47 Triage completed. tr5 01:50 No provider procedures requiring assistance completed. Patient did not have IV access tr5 during this emergency room visit. Administered Medications: 00:34 Drug: morphine 2 mg {Note: RASS:0.} Route: IVP; Site: right antecubital; tr5 01:00 Follow up: Response: Pain is decreased; RASS: Alert and Calm (0) tr5 00:34 Drug: Zofran 4 mg Route: IVP; Site: right antecubital; tr5 01:20 Follow up: Response: Marked relief of symptoms tr5 00:50 Drug: TORadol 30 mg Route: IVP; Site: right antecubital; tr5 01:20 Follow up: Response: Marked relief of symptoms tr5 00:50 Drug: Valium 5 mg Route: PO; tr5 01:20 Follow up: Response: Marked relief of symptoms tr5 00:50 Drug: Decadron - Dexamethasone 10 mg Route: IVP; Site: right antecubital; tr5 01:21 Follow up: Response: Marked relief of symptoms tr5 01:30 Drug: morphine 2 mg Route: IVP; Site: right antecubital; tr5 01:30 Drug: Insulin Regular Human 10 units {Co-Signature: tr5 (Celio Rincon RN).} Route: bb IVP; Site: right antecubital; 01:30 Drug: Potassium Effervescent Tablet 50 mEq Route: PO; tr5 Outcome: 01:32 Discharge ordered by . bobbi 01:50 Discharged to home ambulatory. tr5 01:50 Condition: stable 02:01 Discharge instructions given to patient, Instructed on discharge instructions, follow bb up and referral plans. medication usage, Demonstrated understanding of instructions, follow-up care, medications, Prescriptions given X 4. 02:02 Patient left the ED. bb Addendum: 11/29/2019 10:27 Addendum: Culture Results: Bacteria is resistant to, has intermediate sensitivity, or a a5 is not tested against prescribed antibiotics. Report given to NAZ for further evaluation and then to skin piler for follow up with patient. Phone call Attempt #1 spoke to patient, pt reports urinary symptoms but reported FSBG at home has been around 700 and states "I know the steroids they gave me are making my blood sugar go up". Spoke to ALLISON Warren and pt was instructed to come back to ER to follow up due to not having a PCP. Pt states "she will come back to ER later today". Signatures: Dispatcher [employer] Rashad Graham MD MD cha Ballard, Brenda, RN RN bb Amelia Monroy RN RN aa5 Luis Echols 3 Celio Rincon RN RN tr5 Alexander Cooper 3 Celio Rincon RN tr5
--- NOTE | 2019-11-26 01:52 | EDPHYS ---
Physician Documentation [facility] Name: Ara Plunkett Age: 34 yrs Sex: Female : 1985 Arrival Date: 11/25/2019 Time: 23:24 Bed 23 Private MD: ZACHARY Physician Rashad Melgoza HPI: 11/26 00:05 This 34 yrs old Female presents to ER via Unassigned with complaints of Back bobbi Pain, Headache. 00:05 The patient presents with pain and decreased range of motion. The symptoms are located bobbi in the lumbar area and right low back. Onset: The symptoms/episode began/occurred yesterday. Location: right low back. Severity of symptoms: At their worst the symptoms were mild, moderate, in the emergency department the symptoms are unchanged. The patient has not experienced similar symptoms in the past. Historical: - Allergies: 01:07 No Known Allergies; tr5 - Home Meds: 01:07 Metformin Oral [Active]; tr5 - PMHx: 01:07 Diabetes - NIDDM; tr5 - PSHx: 01:07 None; tr5 - Immunization history:: Adult Immunizations up to date. - Family history:: Significant other has/had. - Social history:: Smoking status: Patient uses tobacco products, smokes one-half pack cigarettes per day. - Ebola Screening: : No symptoms or risks identified at this time. - Hospitalizations: : No recent hospitalization is reported. ROS: 00:08 Constitutional: Negative for fever, chills, and weight loss, Eyes: Negative for injury, bobbi pain, redness, and discharge, ENT: Negative for injury, pain, and discharge, Neck: Negative for injury, pain, and swelling, Cardiovascular: Negative for chest pain, palpitations, and edema, Respiratory: Negative for shortness of breath, cough, wheezing, and pleuritic chest pain, : Negative for injury, bleeding, discharge, and swelling, MS/Extremity: Negative for injury and deformity, Skin: Negative for injury, rash, and discoloration, Neuro: Negative for headache, weakness, numbness, tingling, and seizure, Psych: Negative for depression, anxiety, suicide ideation, homicidal ideation, and hallucinations, Allergy/Immunology: Negative for hives, rash, and allergies, Endocrine: Negative for neck swelling, polydipsia, polyuria, polyphagia, and marked weight changes, Hematologic/Lymphatic: Negative for swollen nodes, abnormal bleeding, and unusual bruising. 00:08 Abdomen/GI: Positive for nausea and vomiting, diarrhea. Exam: 00:08 Constitutional: This is a well developed, well nourished patient who is awake, alert, bobbi and in no acute distress. Head/Face: Normocephalic, atraumatic. Eyes: Pupils equal round and reactive to light, extra-ocular motions intact. Lids and lashes normal. Conjunctiva and sclera are non-icteric and not injected. Cornea within normal limits. Periorbital areas with no swelling, redness, or edema. ENT: Nares patent. No nasal discharge, no septal abnormalities noted. Tympanic membranes are normal and external auditory canals are clear. Oropharynx with no redness, swelling, or masses, exudates, or evidence of obstruction, uvula midline. Mucous membranes moist. Neck: Trachea midline, no thyromegaly or masses palpated, and no cervical lymphadenopathy. Supple, full range of motion without nuchal rigidity, or vertebral point tenderness. No Meningismus. Chest/axilla: Normal chest wall appearance and motion. Nontender with no deformity. No lesions are appreciated. Cardiovascular: Regular rate and rhythm with a normal S1 and S2. No gallops, murmurs, or rubs. Normal PMI, no JVD. No pulse deficits. Respiratory: Lungs have equal breath sounds bilaterally, clear to auscultation and percussion. No rales, rhonchi or wheezes noted. No increased work of breathing, no retractions or nasal flaring. Abdomen/GI: Soft, non-tender, with normal bowel sounds. No distension or tympany. No guarding or rebound. No evidence of tenderness throughout. Skin: Warm, dry with normal turgor. Normal color with no rashes, no lesions, and no evidence of cellulitis. MS/ Extremity: Pulses equal, no cyanosis. Neurovascular intact. Full, normal range of motion. Neuro: Awake and alert, GCS 15, oriented to person, place, time, and situation. Cranial nerves II-XII grossly intact. Motor strength 5/5 in all extremities. Sensory grossly intact. Cerebellar exam normal. Normal gait. Psych: Awake, alert, with orientation to person, place and time. Behavior, mood, and affect are within normal limits. 00:08 Back: pain, that is mild, that is moderate, ROM is painful, normal spinal alignment noted, CVA tenderness, is absent, muscle spasm, is appreciated in the left low back, left mid back, right mid back and right low back. Vital Signs: 11/25 23:42 BP 128 / 75 LA (auto/lg); Pulse 95 MON; Resp 18 S; Temp 98.2(O); Pulse Ox 99% on R/A; jp3 Weight 79.38 kg (R); Height 5 ft. 2 in. (157.48 cm) (R); Pain 8/10; 11/26 01:07 BP 130 / 84; Pulse 78; Resp 17; Pulse Ox 100% on R/A; tr5 01:56 BP 129 / 77; Pulse 79; Resp 16; Temp 97.8(O); Pulse Ox 99% on R/A; tr5 11/25 23:42 Body Mass Index 32.01 (79.38 kg, 157.48 cm) jp3 MDM: 11/25 23:47 Patient medically screened. [facility] 11/26 00:11 Data reviewed: vital signs, nurses notes, lab test result(s), radiologic studies, plain bobbi films. 11/26 00:04 Order name: CBC with Diff [facility] 11/26 00:04 Order name: Comprehensive Metabolic Panel; Complete Time: 01:15 [facility] 11/26 00:04 Order name: Urine Culture [facility] 11/26 00:04 Order name: Lumbar Spine (3 Views) XRAY [facility] 11/26 00:46 Order name: CBC with Automated Diff EDMS Administered Medications: 00:34 Drug: morphine 2 mg {Note: RASS:0.} Route: IVP; Site: right antecubital; tr5 01:00 Follow up: Response: Pain is decreased; RASS: Alert and Calm (0) tr5 00:34 Drug: Zofran 4 mg Route: IVP; Site: right antecubital; tr5 01:20 Follow up: Response: Marked relief of symptoms tr5 00:50 Drug: TORadol 30 mg Route: IVP; Site: right antecubital; tr5 01:20 Follow up: Response: Marked relief of symptoms tr5 00:50 Drug: Valium 5 mg Route: PO; tr5 01:20 Follow up: Response: Marked relief of symptoms tr5 00:50 Drug: Decadron - Dexamethasone 10 mg Route: IVP; Site: right antecubital; tr5 01:21 Follow up: Response: Marked relief of symptoms tr5 01:30 Drug: morphine 2 mg Route: IVP; Site: right antecubital; tr5 01:30 Drug: Insulin Regular Human 10 units {Co-Signature: tr5 (Celio Rincon RN).} Route: bb IVP; Site: right antecubital; 01:30 Drug: Potassium Effervescent Tablet 50 mEq Route: PO; tr5 Disposition: 11/26/19 01:32 Discharged to Home. Impression: Sciatica, right side, Vomiting, Diarrhea, unspecified, Type 2 diabetes mellitus, Hypokalemia. - Condition is Stable. - Discharge Instructions: Food Choices to Help Relieve Diarrhea, Adult, Type 2 Diabetes Mellitus, Diagnosis, Adult, Diarrhea, Adult, Nausea and Vomiting, Adult, Sciatica, Nausea and Vomiting, Adult, [id number], Diarrhea, Adult, [id number], Type 2 Diabetes Mellitus, Diagnosis, Adult, [id number]. - Prescriptions for Tylenol- Codeine #3 300-30 mg Oral Tablet - take 2 tablet by ORAL route every 6 hours As needed; 30 tablet. Zofran 4 mg Oral Tablet - take 1 tablet by ORAL route every 12 hours As needed; 20 tablet. Medrol (Owen) 4 mg Oral Tablets, Dose Pack - take 1 tablet by ORAL route as directed - follow package instructions; 1 packet. Cyclobenzaprine 5 mg Oral Tablet - take 1 tablet by ORAL route 3 times per day As needed; 15 tablet. - Medication Reconciliation Form, Thank You Letter, Antibiotic Education, Prescription Opioid Use form. - Follow up: Private Physician; When: 2 - 3 days; Reason: Recheck today's complaints, Continuance of care, Re-evaluation by your physician. Follow up: Nikolas East; When: 2 - 3 days; Reason: Recheck today's complaints, Re-evaluation by your physician. - Problem is new. - Symptoms have improved. Signatures: Dispatcher [employer] Rashad Graham MD MD cha Ballard, Brenda, RN RN bb Rodriguez, Tommie, RN RN tr5 Celio Rincon RN tr5 Corrections: (The following items were deleted from the chart) 02:02 01:32 11/26/2019 01:32 Discharged to Home. Impression: Sciatica, right side; Vomiting; bb Diarrhea, unspecified; Type 2 diabetes mellitus; Hypokalemia. Condition is Stable. Discharge Instructions: Food Choices to Help Relieve Diarrhea, Adult, Diarrhea, Adult, Nausea and Vomiting, Adult, Sciatica, Nausea and Vomiting, Adult, [id number], Diarrhea, Adult, [id number], Type 2 Diabetes Mellitus, Diagnosis, Adult, Type 2 Diabetes Mellitus, Diagnosis, Adult, [id number]. Prescriptions for Tylenol-Codeine #3 300-30 mg Oral Tablet - take 2 tablet by ORAL route every 6 hours As needed; 30 tablet, Zofran 4 mg Oral Tablet - take 1 tablet by ORAL route every 12 hours As needed; 20 tablet, Medrol (Owen) 4 mg Oral Tablets, Dose Pack - take 1 tablet by ORAL route as directed - follow package instructions; 1 packet, Cyclobenzaprine 5 mg Oral Tablet - take 1 tablet by ORAL route 3 times per day As needed; 15 tablet. and Forms are Medication Reconciliation Form, Thank You Letter, Antibiotic Education, Prescription Opioid Use. Follow up: Private Physician; When: 2 - 3 days; Reason: Recheck today's complaints, Continuance of care, Re-evaluation by your physician. Follow up: Nikolas East; When: 2 - 3 days; Reason: Recheck today's complaints, Re-evaluation by your physician. Problem is new. Symptoms have improved. bobbi
[2019-11-26 02:13] VITALS: BP 129/77; TEMP 97.8; O2SAT 99
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
== END 2019-11-26 02:02 | disposition home or self-care (01) ==
LOC: ER 23:22
DX: M54.31 Sciatica, right side (principal); E87.6 Hypokalemia; R19.7 Diarrhea, unspecified; E11.9 Type 2 diabetes mellitus without complications; F17.210 Nicotine dependence, cigarettes, uncomplicated
CPT/HCPCS: 36415; 72100; 80053; 85025; 87077; 87086; 87088; 87186; 96374; 96375; 99284; J1100; J2270; J2405

== ENCOUNTER 2019-11-29 20:27 | Emergency (ER) | payer SELFPAY ==
[2019-11-29 21:24] LABS: Basophils % 0.7 % (0-1.3); Hematocrit 41.8 % (36.0-45.0); Lymphocytes % 29.2 % (15.3-44.8); MPV 7.8 fL (7.6-11.3); RBC Red Blood Cell Count 4.56 M/uL (3.86-4.86)
[2019-11-29] MEDS ORDERED: CEFTRIAXONE/SWI 1gm 1 GM/10 ML SYR ONE (21:53)
[2019-11-29] MEDS ORDERED: NA CHLORIDE 0.9% 1,000 ML ONE (21:53)
[2019-11-29 22:05] LABS: ALT/SGPT 29 U/L (12-78); AST/SGOT 20 U/L (15-37); Albumin 3.3 g/dL (3.4-5.0); Alkaline Phosphatase 141 U/L (45-117); BUN Blood Urea Nitrogen 12 mg/dL (7-18); Bicarbonate 28 mmol/L (21-32); Bilirubin Direct < 0.1 mg/dL (0-0.2); Bilirubin Total 0.2 mg/dL (0.2-1.0); Lipase 213 U/L (73-393); Potassium 3.2 mmol/L (3.5-5.1); Protein, Total 7.5 g/dL (6.4-8.2); Sodium Level 134 mmol/L (136-145)
[2019-11-29 22:11] LABS: Glucose Level 484 mg/dL (74-106)
[2019-11-29] MEDS ORDERED: INSULIN -REGULAR HUMAN 50 UNIT/0.5 ML ML ONE (22:23)
[2019-11-29] MEDS ORDERED: ONDANSETRON 4 MG/2 ML VIAL ONE (22:24)
[2019-11-29] MEDS ORDERED: MORPHINE 4 MG/ML SYR ONE (22:24)
--- NOTE | 2019-11-29 23:26 | ER ---
Nurse's Notes [facility] Name: Ara Plunkett Age: 34 yrs Sex: Female : 1985 Arrival Date: 11/29/2019 Time: 20:28 Bed 14 Private MD: Diagnosis: Hyperglycemia, unspecified;Urinary tract infection, site not specified Presentation: 11/29 20:40 Risk Assessment: Do you want to hurt yourself or someone else? Patient reports no jb4 desire to harm self or others. Initial Sepsis Screen: Does the patient meet any 2 criteria? No. Patient's initial sepsis screen is negative. Does the patient have a suspected source of infection? No. Patient's initial sepsis screen is negative. Care prior to arrival: None. 20:46 Presenting complaint: Patient states: I was called this morning and told to come back dm5 in if I felt bad. My blood sugar has been high. It read 600 at home. I just don't feel well and I have pain in my lower back. I have also had shortness of breath today. Transition of care: patient was not received from another setting of care. Onset of symptoms was November 29, 2019. 20:46 Method Of Arrival: Ambulatory dm5 20:46 Acuity: CHARISSA 3 dm5 Historical: - Allergies: 21:30 No Known Allergies; jb4 - Home Meds: 20:48 Metformin Oral [Active]; dm5 - PMHx: 20:48 Diabetes - NIDDM; dm5 - PSHx: 20:48 None; dm5 Screenin:40 Abuse screen: Denies threats or abuse. Nutritional screening: No deficits noted. jb4 Tuberculosis screening: No symptoms or risk factors identified. Fall Risk None identified. Assessment: 20:40 General: Appears in no apparent distress. uncomfortable, Behavior is calm, cooperative, jb4 appropriate for age. Pain: Complains of pain in low back area Pain does not radiate. Pain currently is 8 out of 10 on a pain scale. Neuro: Level of Consciousness is awake, alert, obeys commands, Oriented to person, place, time, situation. Cardiovascular: Patient's skin is warm and dry. Respiratory: Airway is patent Respiratory effort is even, unlabored, Respiratory pattern is regular, symmetrical. GI: No signs and/or symptoms were reported involving the gastrointestinal system. : No signs and/or symptoms were reported regarding the genitourinary system. EENT: No signs and/or symptoms were reported regarding the EENT system. Derm: Skin is intact, Skin is pink, warm \T\ dry. Musculoskeletal: Circulation, motion, and sensation intact. Range of motion: intact in all extremities. 22:00 Reassessment: Patient appears in no apparent distress at this time. Patient and/or jb4 family updated on plan of care and expected duration. Pain level reassessed. Patient is alert, oriented x 3, equal unlabored respirations, skin warm/dry/pink. 23:00 Reassessment: Patient appears in no apparent distress at this time. Patient and/or jb4 family updated on plan of care and expected duration. Pain level reassessed. Patient is alert, oriented x 3, equal unlabored respirations, skin warm/dry/pink. 23:54 Reassessment: Patient appears in no apparent distress at this time. Patient and/or jb4 family updated on plan of care and expected duration. Pain level reassessed. Patient is alert, oriented x 3, equal unlabored respirations, skin warm/dry/pink. Vital Signs: 20:48 BP 121 / 94; Pulse 81; Resp 20; Temp 98.3(O); Pulse Ox 99% on R/A; Weight 79.38 kg; dm5 Height 5 ft. 2 in. (157.48 cm); Pain 8/10; 21:45 BP 118 / 86; Pulse 88; Resp 16; Pulse Ox 96% on R/A; jb4 22:30 BP 136 / 93; Pulse 75; Resp 16; Pulse Ox 100% on R/A; jb4 23:30 BP 128 / 84; Pulse 80; Resp 16; Pulse Ox 100% on R/A; jb4 20:48 Body Mass Index 32.01 (79.38 kg, 157.48 cm) dm5 ED Course: 20:28 Patient arrived in ED. ds1 20:40 Patient has correct armband on for positive identification. Bed in low position. Call jb4 light in reach. Side rails up X 1. 20:47 Triage completed. dm5 20:48 Arm band placed on right wrist. dm5 20:48 Notified primary nurse of point of care results. Notified Charge Nurse of blood sugar dm5 449. 20:51 Celina Driver FNP-C is [facility]. kb 20:51 Rashad Melgoza MD is Attending Physician. kb 20:54 Alejandro Dhillon, RN is Primary Nurse. jb4 23:55 No provider procedures requiring assistance completed. IV discontinued, intact, jb4 bleeding controlled, No redness/swelling at site. Pressure dressing applied. Administered Medications: 21:55 Drug: Rocephin 1 grams Route: IV; Rate: calculated rate; Site: right antecubital; jb4 21:57 Follow up: Response: No adverse reaction; IV Status: Completed infusion; IV Intake: [id number] 21:59 Drug: NS 0.9% 1000 ml Route: IV; Rate: 1000 ml; Site: right antecubital; jb4 23:00 Follow up: Response: No adverse reaction; IV Status: Completed infusion; IV Intake: jb4 1000ml 22:28 Drug: Insulin Regular Human 5 units {Co-Signature: (Vel Christensen).} Route: IVP; jb4 Site: right antecubital; 23:30 Follow up: Response: No adverse reaction; Blood sugar is lowered jb4 22:29 Drug: Zofran 4 mg Route: IVP; Site: right antecubital; jb4 23:00 Follow up: Response: No adverse reaction jb4 22:32 Drug: morphine 4 mg {Note: rass score 0.} Route: IVP; Site: right antecubital; jb4 23:00 Follow up: Response: No adverse reaction; Pain is decreased; RASS: Alert and Calm (0) jb4 Intake: :57 IV: 10ml; Total: 10ml. jb4 23:00 IV: 1000ml; Total: 1010ml. jb4 Outcome: 23:26 Discharge ordered by . kb 23:55 Discharged to home ambulatory, with family. jb4 23:55 Condition: stable 23:55 Discharge instructions given to patient, family, Instructed on discharge instructions, follow up and referral plans. medication usage, Demonstrated understanding of instructions, follow-up care, medications, Prescriptions given X 1. 0107 00:14 Patient left the ED. jb4 Signatures: Celina Driver FNP-C FNP-Ckb Markwardt, Deana, VÍCTOR RN Betsey Bell ds Alejandro Dhillon RN RN [facility] Winsy Habalo wh
--- NOTE | 2019-11-29 23:27 | EDPHYS ---
Physician Documentation [facility] Name: Ara Plunkett Age: 34 yrs Sex: Female : 1985 Arrival Date: 11/29/2019 Time: 20:28 Bed 14 Private MD: ZACHARY Physician Rashad Melgoza HPI: 11/29 21:49 This 34 yrs old Female presents to ER via Ambulatory with complaints of kb Dizziness, Back Pain. 21:49 The patient presents with urinary symptoms, dysuria, frequency. Onset: The kb symptoms/episode began/occurred 3 day(s) ago. Modifying factors: The symptoms are alleviated by nothing, the symptoms are aggravated by urinating. Associated signs and symptoms: Pertinent positives: dysuria, urinary frequency. Severity of symptoms: At their worst the symptoms were moderate, in the emergency department the symptoms are unchanged. The patient has experienced similar episodes in the past. The patient has been recently seen at the [facility] Emergency Department, this week, for similar complaints labs were performed, X-rays were performed. Pt reports she hasn't been feeling well. States she has this feeling when her sugar is high and it has been high for a few days. States she came here 3 days ago and thought she had a UTI then, but was told it was sciatica and given steriods, muscle relaxers and pain medication. Was called this morning and was told her urine test was positive for UTI and to come back to the ER. States the steroids she was on make her feel out of it and make her sugar high as well. Historical: - Allergies: 21:30 No Known Allergies; jb4 - Home Meds: 20:48 Metformin Oral [Active]; dm5 - PMHx: 20:48 Diabetes - NIDDM; dm5 - PSHx: 20:48 None; dm5 ROS: 21:48 Constitutional: Negative for fever, chills, and weight loss, ENT: Negative for injury, kb pain, and discharge, Neck: Negative for injury, pain, and swelling, Cardiovascular: Negative for chest pain, palpitations, and edema, Respiratory: Negative for shortness of breath, cough, wheezing, and pleuritic chest pain, Abdomen/GI: Negative for abdominal pain, nausea, vomiting, diarrhea, and constipation, MS/Extremity: Negative for injury and deformity, Skin: Negative for injury, rash, and discoloration, Neuro: Negative for headache, weakness, numbness, tingling, and seizure. 21:48 Back: Positive for pain at rest, pain with movement. 21:48 : Positive for urinary frequency, burning with urination, foul smelling urine. Exam: 21:46 Constitutional: This is a well developed, well nourished patient who is awake, alert, kb and in no acute distress. Head/Face: Normocephalic, atraumatic. ENT: Nares patent. No nasal discharge, no septal abnormalities noted. Tympanic membranes are normal and external auditory canals are clear. Oropharynx with no redness, swelling, or masses, exudates, or evidence of obstruction, uvula midline. Mucous membranes moist. Neck: Trachea midline, no thyromegaly or masses palpated, and no cervical lymphadenopathy. Supple, full range of motion without nuchal rigidity, or vertebral point tenderness. No Meningismus. Chest/axilla: Normal chest wall appearance and motion. Nontender with no deformity. No lesions are appreciated. Cardiovascular: Regular rate and rhythm with a normal S1 and S2. No gallops, murmurs, or rubs. Normal PMI, no JVD. No pulse deficits. Respiratory: Lungs have equal breath sounds bilaterally, clear to auscultation and percussion. No rales, rhonchi or wheezes noted. No increased work of breathing, no retractions or nasal flaring. Skin: Warm, dry with normal turgor. Normal color with no rashes, no lesions, and no evidence of cellulitis. MS/ Extremity: Pulses equal, no cyanosis. Neurovascular intact. Full, normal range of motion. Neuro: Awake and alert, GCS 15, oriented to person, place, time, and situation. Cranial nerves II-XII grossly intact. Motor strength 5/5 in all extremities. Sensory grossly intact. Cerebellar exam normal. Normal gait. 21:46 Back: pain, that is mild, of the right low back, ROM is normal, normal spinal alignment noted. 21:48 Abdomen/GI: Inspection: abdomen appears normal, Bowel sounds: normal, in all quadrants, kb Palpation: soft, in all quadrants, mild abdominal tenderness, in all quadrants. Vital Signs: 20:48 BP 121 / 94; Pulse 81; Resp 20; Temp 98.3(O); Pulse Ox 99% on R/A; Weight 79.38 kg; dm5 Height 5 ft. 2 in. (157.48 cm); Pain 8/10; 21:45 BP 118 / 86; Pulse 88; Resp 16; Pulse Ox 96% on R/A; jb4 22:30 BP 136 / 93; Pulse 75; Resp 16; Pulse Ox 100% on R/A; jb4 23:30 BP 128 / 84; Pulse 80; Resp 16; Pulse Ox 100% on R/A; jb4 20:48 Body Mass Index 32.01 (79.38 kg, 157.48 cm) dm5 MDM: 20:52 Patient medically screened. kb 21:46 Data reviewed: vital signs, nurses notes. Data interpreted: Pulse oximetry: on room air kb is 99 %. Interpretation: normal. 23:25 Counseling: I had a detailed discussion with the patient and/or guardian regarding: the kb historical points, exam findings, and any diagnostic results supporting the discharge/admit diagnosis, lab results, the need for outpatient follow up, a family practitioner, to return to the emergency department if symptoms worsen or persist or if there are any questions or concerns that arise at home. 11/29 20:51 Order name: Basic Metabolic Panel; Complete Time: 22:12 bb 11/29 20:51 Order name: CBC with Diff; Complete Time: 21:32 bb 11/29 20:51 Order name: Creatinine for Radiology; Complete Time: 21:46 bb 11/29 20:51 Order name: Hepatic Function; Complete Time: 22:12 bb 11/29 20:51 Order name: Lipase; Complete Time: 22:12 11/29 20:53 Order name: Glucose, Ancillary Testing; Complete Time: 20:53 EDMS 11/29 20:51 Order name: IV Saline Lock; Complete Time: 21:19 bb 11/29 20:51 Order name: Labs collected and sent; Complete Time: 21:20 bb 11/29 23:39 Order name: Glucose, Ancillary Testing; Complete Time: 23:40 EDMS 11/29 23:16 Order name: Blood Glucose Level; Complete Time: 23:25 kb Administered Medications: 21:55 Drug: Rocephin 1 grams Route: IV; Rate: calculated rate; Site: right antecubital; jb4 21:57 Follow up: Response: No adverse reaction; IV Status: Completed infusion; IV Intake: [id number] 21:59 Drug: NS 0.9% 1000 ml Route: IV; Rate: 1000 ml; Site: right antecubital; jb4 23:00 Follow up: Response: No adverse reaction; IV Status: Completed infusion; IV Intake: jb4 1000ml 22:28 Drug: Insulin Regular Human 5 units {Co-Signature: (Vel Christensen).} Route: IVP; jb4 Site: right antecubital; 23:30 Follow up: Response: No adverse reaction; Blood sugar is lowered jb4 22:29 Drug: Zofran 4 mg Route: IVP; Site: right antecubital; jb4 23:00 Follow up: Response: No adverse reaction jb4 22:32 Drug: morphine 4 mg {Note: rass score 0.} Route: IVP; Site: right antecubital; jb4 23:00 Follow up: Response: No adverse reaction; Pain is decreased; RASS: Alert and Calm (0) [facility] Disposition: 11/30 06:59 Co-signature as Attending Physician, Rashad Melgoza MD I agree with the assessment and bobbi plan of care. Disposition: 11/29/19 23:26 Discharged to Home. Impression: Hyperglycemia, unspecified, Urinary tract infection, site not specified. - Condition is Stable. - Discharge Instructions: Urinary Tract Infection, Adult, Ednn-[id number], Hyperglycemia, [id number]. - Prescriptions for Bactrim DS 800- 160 mg Oral Tablet - take 1 tablet by ORAL route every 12 hours for 10 days; 20 tablet. - Medication Reconciliation Form, Thank You Letter, Antibiotic Education, Prescription Opioid Use form. - Follow up: Emergency Department; When: As needed; Reason: Worsening of condition. Follow up: Private Physician; When: 2 - 3 days; Reason: Recheck today's complaints, Continuance of care, Re-evaluation by your physician. Signatures: Dispatcher [employer] Celina Diana FNP-C FNP-Ckb Markwardt, Deana, RN RN Rashad Higgins MD MD cha Ballard, Brenda, RN RN bb Bryson, James, RN RN jb [facility] Corrections: (The following items were deleted from the chart) 11/29 21:49 21:46 Constitutional: This is a well developed, well nourished patient who is awake, kb alert, and in no acute distress. Head/Face: Normocephalic, atraumatic. ENT: Nares patent. No nasal discharge, no septal abnormalities noted. Tympanic membranes are normal and external auditory canals are clear. Oropharynx with no redness, swelling, or masses, exudates, or evidence of obstruction, uvula midline. Mucous membranes moist. Neck: Trachea midline, no thyromegaly or masses palpated, and no cervical lymphadenopathy. Supple, full range of motion without nuchal rigidity, or vertebral point tenderness. No Meningismus. Chest/axilla: Normal chest wall appearance and motion. Nontender with no deformity. No lesions are appreciated. Cardiovascular: Regular rate and rhythm with a normal S1 and S2. No gallops, murmurs, or rubs. Normal PMI, no JVD. No pulse deficits. Respiratory: Lungs have equal breath sounds bilaterally, clear to auscultation and percussion. No rales, rhonchi or wheezes noted. No increased work of breathing, no retractions or nasal flaring. Abdomen/GI: Soft, non-tender, with normal bowel sounds. No distension or tympany. No guarding or rebound. No evidence of tenderness throughout. Skin: Warm, dry with normal turgor. Normal color with no rashes, no lesions, and no evidence of cellulitis. MS/ Extremity: Pulses equal, no cyanosis. Neurovascular intact. Full, normal range of motion. Neuro: Awake and alert, GCS 15, oriented to person, place, time, and situation. Cranial nerves II-XII grossly intact. Motor strength 5/5 in all extremities. Sensory grossly intact. Cerebellar exam normal. Normal gait. kb 21:49 21:46 Back: pain, that is mild, of the right low back, ROM is normal, normal spinal kb alignment noted, kb 11/30 00:14 11/29 23:26 11/29/2019 23:26 Discharged to Home. Impression: Hyperglycemia, jb4 unspecified; Urinary tract infection, site not specified. Condition is Stable. Discharge Instructions: Urinary Tract Infection, Adult, Uapy-zu-[id number], Hyperglycemia, [id number]. Prescriptions for Augmentin 875-125 mg Oral Tablet - take 1 tablet by ORAL route every 12 hours for 10 days; 20 tablet. and Forms are Medication Reconciliation Form, Thank You Letter, Antibiotic Education, Prescription Opioid Use. Follow up: Emergency Department; When: As needed; Reason: Worsening of condition. Follow up: Private Physician; When: 2 - 3 days; Reason: Recheck today's complaints, Continuance of care, Re-evaluation by your physician. kb
[2019-11-30 01:11] VITALS: TEMP 98.3
[2019-11-30 01:12] VITALS: O2SAT 100
[2019-11-30 01:13] VITALS: BP 128/84
== END 2019-11-30 00:14 | disposition home or self-care (01) ==
LOC: ER 20:27
DX: N39.0 Urinary tract infection, site not specified (principal); E11.65 Type 2 diabetes mellitus with hyperglycemia
CPT/HCPCS: 36415; 80048; 80076; 82947; 83690; 85025; 96361; 96374; 96375; 99283; J0696; J2405; J7030

== ENCOUNTER 2019-12-03 17:45 | Emergency (ER) | payer SELFPAY ==
[2019-12-03] MEDS ORDERED: ONDANSETRON 4 MG/2 ML VIAL ONE (19:52)
[2019-12-03] MEDS ORDERED: NA CHLORIDE 0.9% 1,000 ML ONE (19:52)
[2019-12-03] MEDS ORDERED: MORPHINE 4 MG/ML SYR ONE (19:53)
[2019-12-03 20:03] LABS: Absolute Lymphocytes (CBC) 3.1 K/uL (0.7-4.9); Basophils % 1.5 % (0-1.3); Lymphocytes % 25.2 % (15.3-44.8); MPV 7.6 fL (7.6-11.3); RBC Red Blood Cell Count 4.53 M/uL (3.86-4.86)
[2019-12-03 20:41] LABS: Albumin 3.6 g/dL (3.4-5.0); Bilirubin Direct 0.1 mg/dL (0-0.2); Bilirubin Total 0.3 mg/dL (0.2-1.0); Potassium 3.8 mmol/L (3.5-5.1); Protein, Total 7.6 g/dL (6.4-8.2)
[2019-12-03] MEDS ORDERED: INSULIN -REGULAR HUMAN 50 UNIT/0.5 ML ML ONE (21:13)
[2019-12-03 22:16] LABS: Urine Blood NEGATIVE (NEG); Urine Glucose 2+ (NEG); Urine Protein NEGATIVE (NEG); Urine Specific Gravity 1.015 (1.005-1.030)
--- NOTE | 2019-12-03 22:39 | ER ---
Nurse's Notes [facility] Name: Ara Plunkett Age: 34 yrs Sex: Female : 1985 Arrival Date: 12/03/2019 Time: 17:46 Bed 13 Private MD: Diagnosis: Abdominal and pelvic pain Presentation: 12/03 18:07 Presenting complaint: Patient states: LLQ pain that began yesterday. pt also reports aa5 nausea/vomiting. Denies diarrhea. Reports being on antibiotics for recent UTI. Transition of care: patient was not received from another setting of care. Onset of symptoms was December 02, 2019. Risk Assessment: Do you want to hurt yourself or someone else? Patient reports no desire to harm self or others. Initial Sepsis Screen: Does the patient meet any 2 criteria? No. Patient's initial sepsis screen is negative. Does the patient have a suspected source of infection? No. Patient's initial sepsis screen is negative. Care prior to arrival: None. 18:07 Method Of Arrival: Ambulatory aa5 18:07 Acuity: CHARISSA 3 aa5 Triage Assessment: 23:26 General: Behavior is calm. rv [employer]: 18:09 LMP 11/23/2019 aa5 Historical: - Allergies: 18:09 Flagyl; aa5 - PMHx: 18:09 Diabetes - NIDDM; aa5 - PSHx: 18:09 None; aa5 - Immunization history:: Flu vaccine is not up to date. - Social history:: Smoking status: Patient uses tobacco products, smokes one pack cigarettes per day. - Ebola Screening: : No symptoms or risks identified at this time. Screenin:40 Abuse screen: Denies threats or abuse. Denies injuries from another. Nutritional rv screening: No deficits noted. Tuberculosis screening: No symptoms or risk factors identified. Fall Risk None identified. Assessment: 21:00 General: Appears in no apparent distress. uncomfortable. rv 21:00 Pain: Complains of pain in abdomen. Neuro: Level of Consciousness is awake, alert, rv obeys commands, Oriented to person, place, time, situation. Cardiovascular: Patient's skin is warm and dry. Respiratory: Airway is patent. GI: Bowel sounds present X 4 quads. Abd is soft and non tender X 4 quads. Derm: Skin is intact. Vital Signs: 18:09 BP 118 / 88; Pulse 93; Resp 16 S; Temp 98.7(TE); Pulse Ox 99% on R/A; Weight 79.38 kg aa5 (R); Height 5 ft. 2 in. (157.48 cm) (R); Pain 9/10; 21:00 BP 138 / 87; Pulse 79; Resp 16; Pulse Ox 100% on R/A; rv 21:30 BP 141 / 69; Pulse 83; Resp 17; Pulse Ox 100% on R/A; rv 22:00 BP 134 / 83; Pulse 84; Resp 16; Pulse Ox 100% on R/A; rv 23:23 BP 131 / 86; Pulse 81; Resp 16; Pulse Ox 99% on R/A; rv 18:09 Body Mass Index 32.01 (79.38 kg, 157.48 cm) aa5 ED Course: 17:46 Patient arrived in ED. jg7 18:09 Triage completed. aa5 18:09 Arm band placed on. aa5 19:17 Brannon Cooper MD is Attending Physician. kdr 19:29 Gómez Sidhu RN is Primary Nurse. rv 19:45 Radiology exam delayed due to lab results not completed at this time. test vm2 not completed at this time. 21:02 Radiology exam delayed due to test not completed at this time. vm2 21:30 No provider procedures requiring assistance completed. Inserted saline lock: 20 gauge rv in right antecubital area, using aseptic technique. Blood collected. 21:40 CT Abd/Pelvis - IV Contrast Only In Process Unspecified. EDMS 21:40 Patient has correct armband on for positive identification. Pulse ox on. NIBP on. rv 23:26 IV discontinued, intact, bleeding controlled, No redness/swelling at site. Pressure rv dressing applied. Administered Medications: 19:56 Drug: morphine 4 mg {Note: rass 0.} Route: IVP; Site: left antecubital; rv 23:24 Follow up: Response: No adverse reaction; RASS: Alert and Calm (0) rv 19:56 Drug: Zofran 4 mg Route: IVP; Site: left antecubital; rv 23:25 Follow up: Response: No adverse reaction rv 19:56 Drug: NS 0.9% 1000 ml Route: IV; Rate: 1 bolus; Site: left antecubital; rv 23:25 Follow up: IV Status: Completed infusion rv 21:15 Drug: Insulin Regular Human 8 units {Co-Signature: rv (Gómez Sidhu RN).} Route: wh IVP; Site: right antecubital; 23:25 Follow up: Response: No adverse reaction rv Point of Care Testing: Blood Glucose: 18:10 Blood Glucose: 415 mg/dL; aa5 Ranges: Outcome: 22:38 Discharge ordered by MD. kdr 23:26 Discharged to home ambulatory, with family. rv 23:26 Condition: good 23:26 Discharge instructions given to patient, Instructed on discharge instructions, follow up and referral plans. medication usage, Demonstrated understanding of instructions, follow-up care, medications, Prescriptions given X 3. 23:27 Patient left the ED. rv Signatures: Dispatcher [employer] EDMS Brannon Cooper MD MD kdr Calderon, Audri RN RN aa5 Bess Mart Vel Robert Ronaldo, RN RN rv Gutierrez, Jessica jMonisha Sidhu RN rv Corrections: (The following items were deleted from the chart) 22:12 22:00 BP 141 / 69; Pulse 83bpm; Resp 17bpm; Pulse Ox 100% RA; rv rv
--- NOTE | 2019-12-03 22:39 | EDPHYS ---
Physician Documentation [facility] Name: Ara Plunkett Age: 34 yrs Sex: Female : 1985 Arrival Date: 12/03/2019 Time: 17:46 Bed 13 Private MD: ED Physician Brannon Cooper HPI: 12/03 20:08 This 34 yrs old Female presents to ER via Ambulatory with complaints of kdr Abdominal Pain. 20:08 The patient presents with abdominal pain in the left upper quadrant, in the left lower kdr quadrant. Onset: The symptoms/episode began/occurred gradually, 4 day(s) ago. The symptoms radiate to the left flank. Associated signs and symptoms: Pertinent positives: nausea and vomiting, Pertinent negatives: blood in stools, chest pain, constipation, diarrhea, dysuria, fever, palpitations, shortness of breath, vaginal discharge, vomiting, vomiting blood. The symptoms are described as achy, crampy, steady, vague. Severity of pain: At its worst the pain was moderate in the emergency department the pain is unchanged. The patient has not experienced similar symptoms in the past. The patient has been recently seen at the [facility] Emergency Department, this week. 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 - Social history:: Smoking status: Patient uses tobacco products, smokes one pack cigarettes per day. - Ebola Screening: : No symptoms or risks identified at this time. ROS: 20:08 Constitutional: Negative for fever, chills, and weight loss, Eyes: Negative for injury, kdr pain, redness, and discharge, Neck: Negative for injury, pain, and swelling, Cardiovascular: Negative for chest pain, palpitations, and edema, Respiratory: Negative for shortness of breath, cough, wheezing, and pleuritic chest pain, Back: Negative for injury and pain, : Negative for injury, bleeding, discharge, and swelling, MS/Extremity: Negative for injury and deformity, Skin: Negative for injury, rash, and discoloration, Neuro: Negative for headache, weakness, numbness, tingling, and seizure activity. Psych: Negative for depression, anxiety, suicide ideation, homicidal ideation, and hallucinations, Allergy/Immunology: Negative for hives, rash, and allergies, Endocrine: Negative for neck swelling, polydipsia, polyuria, polyphagia, and marked weight changes, Hematologic/Lymphatic: Negative for swollen nodes, abnormal bleeding, and unusual bruising. 20:08 Abdomen/GI: Positive for abdominal pain, nausea and vomiting. Exam: 20:08 Constitutional: This is a well developed, well nourished patient who is awake, alert, kdr and in no acute distress. Head/Face: Normocephalic, atraumatic. Eyes: Pupils equal round and reactive to light, extra-ocular motions intact. Lids and lashes normal. Conjunctiva and sclera are non-icteric and not injected. Cornea within normal limits. Periorbital areas with no swelling, redness, or edema. ENT: Nares patent. No nasal discharge, no septal abnormalities noted. Tympanic membranes are normal and external auditory canals are clear. Oropharynx with no redness, swelling, or masses, exudates, or evidence of obstruction, uvula midline. Mucous membranes moist. Neck: Trachea midline, no thyromegaly or masses palpated, and no cervical lymphadenopathy. Supple, full range of motion without nuchal rigidity, or vertebral point tenderness. No Meningismus. Chest/axilla: Normal chest wall appearance and motion. Nontender with no deformity. No lesions are appreciated. Cardiovascular: Regular rate and rhythm with a normal S1 and S2. No gallops, murmurs, or rubs. Normal PMI, no JVD. No pulse deficits. Respiratory: Lungs have equal breath sounds bilaterally, clear to auscultation and percussion. No rales, rhonchi or wheezes noted. No increased work of breathing, no retractions or nasal flaring. Back: No spinal tenderness. No costovertebral tenderness. Full range of motion. Skin: Warm, dry with normal turgor. Normal color with no rashes, no lesions, and no evidence of cellulitis. MS/ Extremity: Pulses equal, no cyanosis. Neurovascular intact. Full, normal range of motion. Neuro: Awake and alert, GCS 15, oriented to person, place, time, and situation. Cranial nerves II-XII grossly intact. Motor strength 5/5 in all extremities. Sensory grossly intact. Cerebellar exam normal. Normal gait. Psych: Awake, alert, with orientation to person, place and time. Behavior, mood, and affect are within normal limits. 20:08 Abdomen/GI: Inspection: abdomen appears normal, Bowel sounds: active, diminished, in kdr all quadrants, Palpation: soft, mild abdominal tenderness, in the posterior aspect of left lateral abdomen, anterior aspect of left lateral abdomen, left upper quadrant and left lower quadrant, mass, is not appreciated, rebound tenderness, is not appreciated. Vital Signs: 18:09 BP 118 / 88; Pulse 93; Resp 16 S; Temp 98.7(TE); Pulse Ox 99% on R/A; Weight 79.38 kg aa5 (R); Height 5 ft. 2 in. (157.48 cm) (R); Pain 9/10; 21:00 BP 138 / 87; Pulse 79; Resp 16; Pulse Ox 100% on R/A; rv 21:30 BP 141 / 69; Pulse 83; Resp 17; Pulse Ox 100% on R/A; rv 22:00 BP 134 / 83; Pulse 84; Resp 16; Pulse Ox 100% on R/A; rv 23:23 BP 131 / 86; Pulse 81; Resp 16; Pulse Ox 99% on R/A; rv 18:09 Body Mass Index 32.01 (79.38 kg, 157.48 cm) aa5 MDM: 20:08 Data reviewed: vital signs, nurses notes, lab test result(s), radiologic studies. kdr Counseling: I had a detailed discussion with the patient and/or guardian regarding: the historical points, exam findings, and any diagnostic results supporting the discharge/admit diagnosis, lab results, radiology results. 22:38 Patient medically screened. kdr 22:40 Special discussion: Based on the patient's Hx, exam, and Dx evaluation, there is no kdr indication for emergent surgery or inpatient Tx. It is understood by the patient/guardian that if the Sx's persist or worsen they need to return immediately for re-evaluation. ED course: The patient improved with the interventions given and was happy with the plan for discharge and follow-up. 12/03 18:24 Order name: Glucose, Ancillary Testing; Complete Time: 20:55 EDMS 12/03 19:33 Order name: Basic Metabolic Panel; Complete Time: 20:55 kdr 12/03 19:33 Order name: CBC with Diff; Complete Time: 20:55 kdr 12/03 19:33 Order name: Creatinine for Radiology; Complete Time: 20:55 kdr 12/03 19:33 Order name: Hepatic Function; Complete Time: 20:55 kdr 12/03 19:33 Order name: Lipase; Complete Time: 20:55 kdr 12/03 19:39 Order name: CT Abd/Pelvis - IV Contrast Only kdr 12/03 21:19 Order name: Urine Dipstick--Ancillary (enter results); Complete Time: 22:36 eb 12/03 21:20 Order name: Urine --Ancillary (enter results); Complete Time: 22:36 eb 12/03 23:01 Order name: Glucose, Ancillary Testing; Complete Time: 00:41 EDMS 12/03 19:33 Order name: IV Saline Lock; Complete Time: 21: kdr 12/03 19:33 Order name: Labs collected and sent; Complete Time: 21:10 kdr 12/03 19:39 Order name: Urine Dipstick-Ancillary (obtain specimen); Complete Time: 21: kdr 12/03 19:39 Order name: Urine Test (obtain specimen); Complete Time: 21: kdr 12/03 22:37 Order name: Blood Glucose Level; Complete Time: 22:49 kdr Administered Medications: 19:56 Drug: morphine 4 mg {Note: rass 0.} Route: IVP; Site: left antecubital; rv 23:24 Follow up: Response: No adverse reaction; RASS: Alert and Calm (0) rv 19:56 Drug: Zofran 4 mg Route: IVP; Site: left antecubital; rv 23:25 Follow up: Response: No adverse reaction rv 19:56 Drug: NS 0.9% 1000 ml Route: IV; Rate: 1 bolus; Site: left antecubital; rv 23:25 Follow up: IV Status: Completed infusion rv 21:15 Drug: Insulin Regular Human 8 units {Co-Signature: rv (Gómez Sidhu RN).} Route: wh IVP; Site: right antecubital; 23:25 Follow up: Response: No adverse reaction rv Point of Care Testing: Blood Glucose: 18:10 Blood Glucose: 415 mg/dL; aa5 Ranges: Critical Glucose Levels:Adult <50 mg/dl or >400 mg/dl <40 mg/dl or >180 mg/dl Disposition: 12/03/19 22:38 Discharged to Home. Impression: Abdominal and pelvic pain. - Condition is Stable. - Discharge Instructions: Abdominal Pain, Adult, [id number], Hyperglycemia, [id number]. - Prescriptions for Pepcid 20 mg Oral Tablet - take 1 tablet by ORAL route every 12 hours for 5 days; 10 tablet. Zofran 4 mg Oral Tablet - take 1 tablet by ORAL route every 12 hours As needed; 6 tablet. Tramadol 50 mg Oral Tablet - take 1 tablet by ORAL route every 8 hours as needed; 12 tablet. - Medication Reconciliation Form, Thank You Letter, Prescription Opioid Use form. - Follow up: Private Physician; When: 2 - 3 days; Reason: If symptoms return, Further diagnostic work-up, Recheck today's complaints, Continuance of care, Re-evaluation by your physician. - Problem is an ongoing problem. - Symptoms have improved. Signatures: Dispatcher [employer] EDMS Brannon Cooper MD MD kdr Calderon, Audri, RN RN aa5 Vel Christensen Ronaldo, RN RN rv Gómez Sidhu RN rv Corrections: (The following items were deleted from the chart) 20:12 20:08 Constitutional: Negative for chills, and weight loss she has had fever today kdr Eyes: Negative for injury, pain, redness, and discharge, ENT: Negative for injury, pain, and discharge, Neck: Negative for injury, pain, and swelling, Cardiovascular: Negative for chest pain, palpitations, and edema, Abdomen/GI: Negative for abdominal pain, nausea, vomiting, diarrhea, and constipation, Back: Negative for injury and pain, : Negative for injury, bleeding, discharge, and swelling, MS/Extremity: Negative for injury and deformity, Skin: Negative for injury, rash, and discoloration, Neuro: Negative for headache, weakness, numbness, tingling, and seizure activity. Psych: Negative for depression, anxiety, suicide ideation, homicidal ideation, and hallucinations, Allergy/Immunology: Negative for hives, rash, and allergies, Endocrine: Negative for neck swelling, polydipsia, polyuria, polyphagia, and marked weight changes, Hematologic/Lymphatic: Negative for swollen nodes, abnormal bleeding, and unusual bruising, kdr 20:12 20:08 Respiratory: Positive for cough, with no reported sputum, Negative for dyspnea on kdr exertion, hemoptysis, orthopnea, pleurisy, shortness of breath, sputum production, wheezing, kdr 23:27 22:38 12/03/2019 22:38 Discharged to Home. Impression: Abdominal and pelvic pain. rv Condition is Stable. Forms are Medication Reconciliation Form, Thank You Letter, Antibiotic Education, Prescription Opioid Use. Follow up: Private Physician; When: 2 - 3 days; Reason: If symptoms return, Further diagnostic work-up, Recheck today's complaints, Continuance of care, Re-evaluation by your physician. Problem is an ongoing problem. Symptoms have improved. kdr
[2019-12-03 23:33] VITALS: TEMP 98.7
[2019-12-03 23:38] VITALS: BP 131/86; O2SAT 99
--- NOTE | 2019-12-06 11:47 | RAD REPORT ---
EXAM DESCRIPTION: CT - Abdomen Pelvis W Contrast - 12/04/2019 8:24 am CLINICAL HISTORY: The patient is 34 years old and is Female; ABD PAIN TECHNIQUE: Axial computed tomography images of the abdomen and pelvis with intravenous contrast. S agittal and coronal reformatted images were created and reviewed. This CT exam was performed using one or more of the following dose reduction techniques: automated exposure control, adjustment of t he mA and/or kV according to patient size, and/or use of iterative reconstruction technique. COMPARISON: July 27, 2019 FINDINGS: Lung bases: Unremarkable. No mass. No consolidation. ABDOMEN: Liver: Unremarkable. No mass. Gallbladder and bile ducts: Multiple gallstones seen. No ductal dilation. Pancreas: Unremarkable. No mass. No ductal dilation. Spleen: Unremarkable. No splenomegaly. Adrenals: Unremarkable. No mass. Kidneys and ureters: Unremarkable. No solid mass. No hydronephrosis. Stomach and bowel: Unremarkable. No obstruction. No mucosal thickening. PELVIS: Appendix: No findings to suggest acute appendicitis. Bladder: Unremarkable. No mass. Reproductive: Unremarkable as visualized. ABDOMEN and PELVIS: Intraperitoneal space: Unremarkable. No free air. No significant fluid collection. Bones/joints: No acute fracture. No dislocation. Soft tissues: Unremarkable. Vasculature: Unremarkable. No abdominal aortic aneurysm. Lymph nodes: Unremarkable. No enlarged lymph nodes. IMPRESSION: 1. No acute intra-abdominal abnormality. 2. Cholelithiasis. 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 The interpreting radiologist is f ully responsible for the content of the report.
== END 2019-12-03 23:27 | disposition home or self-care (01) ==
LOC: ER 17:45
DX: R10.9 Unspecified abdominal pain (principal); R10.2 Pelvic and perineal pain; Z88.3 Allergy status to other anti-infective agents
CPT/HCPCS: 36415; 74177; 80048; 80076; 81003; 81025; 82947; 83690; 85025; 99284; J2405; J7030; Q9967

== ENCOUNTER 2020-01-21 21:17 | Emergency (ER) | payer SELFPAY ==
[2020-01-21] MEDS ORDERED: NA CHLORIDE 0.9% 1,000 ML ONE (22:37)
[2020-01-21] MEDS ORDERED: MAGNE/ALUM HYDROXD 30 ML UCUP ONE (22:46)
[2020-01-21] MEDS ORDERED: LIDOCAINE VISCOUS 2% SOLN 15 ML UDC ONE (22:46)
[2020-01-21 22:47] LABS: Basophils % 0.8 % (0-1.3); Hematocrit 38.2 % (36.0-45.0); Lymphocytes % 16.7 % (15.3-44.8); MPV 8.3 fL (7.6-11.3); RBC Red Blood Cell Count 4.36 M/uL (3.86-4.86)
[2020-01-21 22:48] LABS: Protime INR 0.96
[2020-01-21 23:15] LABS: ALT/SGPT 8 U/L (12-78); AST/SGOT 12 U/L (15-37); Albumin 3.4 g/dL (3.4-5.0); Alkaline Phosphatase 102 U/L (45-117); BUN Blood Urea Nitrogen 5 mg/dL (7-18); Bicarbonate 23 mmol/L (21-32); Bilirubin Direct 0.1 mg/dL (0-0.2); Bilirubin Total 0.5 mg/dL (0.2-1.0); Glucose Level 398 mg/dL (74-106); NT PRO-BNP 71 pg/mL (<125); Potassium 3.5 mmol/L (3.5-5.1); Protein, Total 7.3 g/dL (6.4-8.2); Sodium Level 135 mmol/L (136-145); Troponin (Emerg Dept Use Only) < 0.02 ng/mL (0.0-0.045)
[2020-01-21 23:19] LABS: Magnesium 1.4 mg/dL (1.8-2.4)
[2020-01-21] MEDS ORDERED: MAGNESIUM OXIDE 400 MG TAB ONE (23:41)
--- NOTE | 2020-01-22 01:10 | EDPHYS ---
Physician Documentation [facility] Name: Ara Plunkett Age: 34 yrs Sex: Female : 1985 Arrival Date: 01/21/2020 Time: 21:18 Bed 19 Private MD: ED Physician Landon Duval HPI: 06:27 This 34 yrs old Female presents to ER via Ambulatory with complaints of Chest tw4 Pain. 06:27 The patient or guardian reports chest pain that is located primarily in the anterior tw4 chest wall. The pain does not radiate. Associated signs and symptoms: The patient has no apparent associated signs or symptoms. The chest pain is described as burning. Duration: The patient or guardian reports a single episode. Modifying factors: The symptoms are alleviated by nothing. the symptoms are aggravated by nothing. The patient has not experienced similar symptoms in the past. 06:27 Severity of pain: At its worst the pain was mild in the emergency department the pain tw4 is unchanged. Pt states her symptoms started after she took of her fathers Lexapro tablets. Pt does not normally tale Lexapro. 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 - Social history:: Smoking status: Patient reports the use of cigarette tobacco products, smokes one pack cigarettes per day. ROS: 06:27 Constitutional: Negative for fever, chills, and weight loss, Eyes: Negative for injury, tw4 pain, redness, and discharge, Neck: Negative for injury, pain, and swelling, Respiratory: Negative for shortness of breath, cough, wheezing, and pleuritic chest pain, Abdomen/GI: Negative for abdominal pain, nausea, vomiting, diarrhea, and constipation, Back: Negative for injury and pain, MS/Extremity: Negative for injury and deformity, Skin: Negative for injury, rash, and discoloration. Cardiovascular: Positive for chest pain, Negative for edema, orthopnea, palpitations, paroxysmal nocturnal dyspnea. Exam: 06:27 Constitutional: This is a well developed, well nourished patient who is awake, alert, tw4 and in no acute distress. Head/Face: Normocephalic, atraumatic. Chest/axilla: Normal chest wall appearance and motion. Nontender with no deformity. No lesions are appreciated. Cardiovascular: Regular rate and rhythm with a normal S1 and S2. No gallops, murmurs, or rubs. Normal PMI, no JVD. No pulse deficits. Respiratory: Lungs have equal breath sounds bilaterally, clear to auscultation and percussion. No rales, rhonchi or wheezes noted. No increased work of breathing, no retractions or nasal flaring. Abdomen/GI: Soft, non-tender, with normal bowel sounds. No distension or tympany. No guarding or rebound. No evidence of tenderness throughout. Back: No spinal tenderness. No costovertebral tenderness. Full range of motion. MS/ Extremity: Pulses equal, no cyanosis. Neurovascular intact. Full, normal range of motion. Neuro: Awake and alert, GCS 15, oriented to person, place, time, and situation. Cranial nerves II-XII grossly intact. Motor strength 5/5 in all extremities. Sensory grossly intact. Cerebellar exam normal. Normal gait. Vital Signs: 01/21 21:45 BP 142 / 78; Pulse 94; Resp 16; Temp 97.9; Pulse Ox 99% ; Pain 9/10; rv 22:30 BP 132 / 100; Pulse 84; Resp 16; Pulse Ox 97% on R/A; rv 23:30 BP 126 / 74; Pulse 93; Resp 16; Pulse Ox 97% on R/A; rv MDM: 21:48 Patient medically screened. tw4 06:31 Differential diagnosis: acute pericarditis, anxiety, esophagitis, gastritis, peptic tw4 ulcer disease, pericarditis. HEART Score: History: Slightly Suspicious (0), ECG: Normal (0), Age: < or = 45 years (0), Risk Factors: No Risk Factors Known (0), Troponin: < or = 1 x Normal Limit (0), Total Score = 0. Data reviewed: vital signs, nurses notes. Data reviewed: lab test result(s), cardiac enzymes, CBC, electrolytes. Data interpreted: Pulse oximetry: Interpretation:. Counseling: I had a detailed discussion with the patient and/or guardian regarding: the historical points, exam findings, and any diagnostic results supporting the discharge/admit diagnosis. Special discussion: Based on the patient's history, exam, and Dx evaluation, there is no indication for emergent intervention or inpatient Tx. It is understood by the patient/guardian that if the Sx's persist or worsen they need to return immediately for re-evaluation. I discussed with the patient/guardian in detail that at this point there is no indication for admission to the hospital. It is understood, however, that if the symptoms persist or worsen the patient needs to return immediately for re-evaluation. 01/21 22:27 Order name: Basic Metabolic Panel; Complete Time: 23:38 01/21 23:39 Interpretation: Normal except: NA 135; GLUC 398; BUN 5; GFR 79. 01/21 22:27 Order name: CBC with Diff; Complete Time: :38 01/21 23:39 Interpretation: Normal except: WBC 12.3; PLT 464; GEMA% 75.2; NEUT A 9.3. 01/21 22:27 Order name: LFT's; Complete Time: 23:38 01/21 23:40 Interpretation: Normal except: AST 12; ALT 8; GLOB 3.9; A/G 0.9. 01/21 22:27 Order name: Magnesium; Complete Time: :38 01/21 22:27 Order name: NT PRO-BNP; Complete Time: :38 01/21 22:27 Order name: PT-INR; Complete Time: :38 01/21 22:27 Order name: Troponin (emerg Dept Use Only); Complete Time: :01/21 22:27 Order name: EKG; Complete Time: :01/21 22:27 Order name: Cardiac monitoring; Complete Time: :01/21 22:27 Order name: EKG - Nurse/Tech; Complete Time: :01/21 22:27 Order name: IV Saline Lock; Complete Time: :01/21 22:27 Order name: Labs collected and sent; Complete Time: :01/21 22:27 Order name: O2 Per Protocol; Complete Time: :01/21 22:27 Order name: O2 Sat Monitoring; Complete Time: 22:28 tw4 EC:27 Rhythm is regular. QRS [place] is Normal. CA interval is normal. QRS interval is normal. tw4 QT interval is normal. No Q waves. T waves are Normal. No ST changes noted. Clinical impression: Normal ECG. Interpreted by me. Reviewed by me. Administered Medications: 01/21 23:00 Drug: NS 0.9% 1000 ml Route: IV; Rate: 1 bolus; Site: right antecubital; rv 23:48 Follow up: IV Status: Completed infusion; IV Intake: 1000ml rv 23:15 Drug: GI Cocktail without - (Maalox Suspension 30 ml, Lidocaine Liquid 2 % 15 rv ml) Route: PO; 01:20 Follow up: Response: No adverse reaction rv 01/21 23:42 Drug: Magnesium Oxide 400 mg Route: PO; rv 01:20 Follow up: Response: No adverse reaction rv Disposition: 01/22/20 01:08 Discharged to Home. Impression: Gastritis, unspecified, medication side effect unspecified. - Condition is Stable. - Discharge Instructions: Gastritis, Adult, [id number]. - Prescriptions for Carafate 1 gram Oral Tablet - take 1 tablet by ORAL route 4 times per day take on an empty stomach, beginning on waking and last dose at bedtime; 100 tablet. - Medication Reconciliation Form, Thank You Letter, Antibiotic Education, Prescription Opioid Use form. - Follow up: Private Physician; When: Upon discharge from the Emergency Department; Reason: If symptoms return, Recheck today's complaints, Continuance of care, Re-evaluation by your physician. - Problem is new. - Symptoms have improved. Signatures: Dispatcher [employer] [facility] Landon Duval MD MD tw4 Gómez Sidhu RN RN rv Corrections: (The following items were deleted from the chart) 01:11 01:08 01/22/2020 01:08 Discharged to Home. Impression: Gastritis, unspecified. tw4 Condition is Stable. Forms are Medication Reconciliation Form, Thank You Letter, Antibiotic Education, Prescription Opioid Use. Follow up: Private Physician; When: Upon discharge from the Emergency Department; Reason: If symptoms return, Recheck today's complaints, Continuance of care, Re-evaluation by your physician. Problem is new. Symptoms have improved. tw4 01:21 01:11 01/22/2020 01:08 Discharged to Home. Impression: Gastritis, unspecified; rv medication side effect unspecified. Condition is Stable. Forms are Medication Reconciliation Form, Thank You Letter, Antibiotic Education, Prescription Opioid Use. Follow up: Private Physician; When: Upon discharge from the Emergency Department; Reason: If symptoms return, Recheck today's complaints, Continuance of care, Re-evaluation by your physician. Problem is new. Symptoms have improved. tw4
--- NOTE | 2020-01-22 01:10 | ER ---
Nurse's Notes [facility] Name: Ara Plunkett Age: 34 yrs Sex: Female : 1985 Arrival Date: 01/21/2020 Time: 21:18 Bed 19 Private MD: Diagnosis: Gastritis, unspecified;medication side effect unspecified Presentation: 01/21 21:35 Chief complaint: Patient states: SUDDEN CHEST PAIN WHILE AT REST. DESCRIBED rv STABBING, ON AND OFF, 9/10 PAIN SCALE. WITH BURNING SENSATION ALL OVER THE BODY. Coronavirus screen: The patient has NOT traveled to [place] in the past 14 days. Proceed with normal triage procedures. The patient has NOT had contact with known and/or suspected case of Coronavirus. Proceed with normal triage procedures. Ebola Screen: No symptoms or risks identified at this time. Risk Assessment: Do you want to hurt yourself or someone else? Patient reports no desire to harm self or others. 21:35 Method Of Arrival: Ambulatory rv 21:35 Acuity: CHARISSA 3 rv 01:08 Initial Sepsis Screen: Does the patient meet any 2 criteria? No. Patient's initial rv sepsis screen is negative. Does the patient have a suspected source of infection? No. Patient's initial sepsis screen is negative. 01:08 Onset of symptoms was January 21, 2020 at 20:00. 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 - Social history:: Smoking status: Patient reports the use of cigarette tobacco products, smokes one pack cigarettes per day. Screenin:39 Abuse screen: Denies threats or abuse. Denies injuries from another. Nutritional rv screening: No deficits noted. Tuberculosis screening: No symptoms or risk factors identified. Fall Risk None identified. Assessment: 21:38 General: Appears in no apparent distress. comfortable, Behavior is calm, cooperative. rv Pain: Complains of pain in chest Pain does not radiate. Pain currently is 9 out of 10 on a pain scale. Quality of pain is described as stabbing, Pain began suddenly, 1 hour ago. Neuro: Level of Consciousness is awake, alert, obeys commands, Oriented to person, place, time, situation. Cardiovascular: Patient's skin is warm and dry. Rhythm is sinus rhythm Chest pain is described as severe, quality is stabbing, is located in chest wall began 1 hour prior to arrival episodes are intermittent. Respiratory: Airway is patent Breath sounds are clear bilaterally. Derm: Skin is intact. 23:48 Reassessment: Patient appears in no apparent distress at this time. Patient is alert, rv oriented x 3, equal unlabored respirations, skin warm/dry/pink. Patient states feeling better. Patient states symptoms have improved. 01:06 Reassessment: Patient appears in no apparent distress at this time. Patient and/or rv family updated on plan of care and expected duration. Pain level reassessed. Patient is alert, oriented x 3, equal unlabored respirations, skin warm/dry/pink. GCS 15, AMBULATORY. STATED TO BE FEELING BETTER AFTER THE MEDICATION. TEST RESULTS EXPLAINED TO THE PATIENT. Patient denies pain at this time. Patient states feeling better. Patient states symptoms have improved. Vital Signs: 01/21 21:45 BP 142 / 78; Pulse 94; Resp 16; Temp 97.9; Pulse Ox 99% ; Pain 9/10; rv 22:30 BP 132 / 100; Pulse 84; Resp 16; Pulse Ox 97% on R/A; rv 23:30 BP 126 / 74; Pulse 93; Resp 16; Pulse Ox 97% on R/A; rv ED Course: 21:18 Patient arrived in ED. cl3 21:30 Gómez Sidhu, RN is Primary Nurse. rv 21:36 Triage completed. rv 21:37 Arm band placed on Patient placed Patient notified of wait time. rv 21:40 Patient has correct armband on for positive identification. Bed in low position. Call rv light in reach. Side rails up X 1. Adult w/ patient. lag screwer on. Pulse ox on. NIBP on. 21:40 Patient maintains SpO2 saturation greater than 95% on room air. rv 21:41 EKG done, by ED staff, reviewed by Landon Duval MD. ds4 21:48 Landon Duval MD is Attending Physician. tw4 22:28 Initial lab(s) drawn, by me, sent to lab. Inserted saline lock: 20 gauge in right rv antecubital area, using aseptic technique. Blood collected. 23:19 Notified ED physician of a critical lab result(s). Magnesium of 1.4 Dr Duval notified. bb 01:08 No provider procedures requiring assistance completed. IV discontinued, intact, rv bleeding controlled, No redness/swelling at site. Pressure dressing applied. Administered Medications: 01/21 23:00 Drug: NS 0.9% 1000 ml Route: IV; Rate: 1 bolus; Site: right antecubital; rv 23:48 Follow up: IV Status: Completed infusion; IV Intake: 1000ml rv 23:15 Drug: GI Cocktail without - (Maalox Suspension 30 ml, Lidocaine Liquid 2 % 15 rv ml) Route: PO; 01:20 Follow up: Response: No adverse reaction rv 01/21 23:42 Drug: Magnesium Oxide 400 mg Route: PO; rv 01:20 Follow up: Response: No adverse reaction rv Intake: 01/21 23:48 IV: 1000ml; Total: 1000ml. rv Outcome: 01:08 Discharge ordered by [email or web address] 01:08 Discharged to home ambulatory. rv 01:08 Condition: good 01:08 Discharge instructions given to patient, family, Instructed on discharge instructions, follow up and referral plans. Demonstrated understanding of instructions, follow-up care. 01:21 Patient left the ED. rv Signatures: Sara Bourgeois, RN RN Tyler Jenkins ds4 Landon Duval MD MD tw4 Gómez Sidhu RN RN rv Lewis, Charde cl3
[2020-01-22 01:25] VITALS: TEMP 97.9
[2020-01-22 01:27] VITALS: O2SAT 97
[2020-01-22 01:29] VITALS: BP 126/74
--- NOTE | 2020-01-22 11:00 | EKG ---
Test Date: 2020-01-21 Test Time: 21:40:27 Food Chemist: ESTRADA MEASUREMENT RESULTS: Intervals: Rate: 95 WA: 134 QRSD: 84 QT: 372 QTc: 467 [place]: P: 39 WA: 134 QRS: 55 T: 16 INTERPRETIVE STATEMENTS: Normal sinus rhythm Normal ECG No previous ECG available for comparison Electronically Signed On 01-22-20 10:59:45 SKATE BOARDER by Juan Ray
== END 2020-01-22 01:21 | disposition home or self-care (01) ==
LOC: ER 21:17
DX: K29.70 Gastritis, unspecified, without bleeding (principal); T43.225A Adverse effect of selective serotonin reuptake inhibitors, initial encounter; Z88.8 Allergy status to other drugs, medicaments and biological substances
CPT/HCPCS: 36415; 80048; 80076; 83735; 83880; 84484; 85025; 85610; 93005; 96360; 99285; J7030

== ENCOUNTER 2020-02-19 22:37 | Emergency (ER) | payer SELFPAY ==
--- OUTSIDE RECORDS SUMMARY | 2020-02-19 22:41 | XMS REPORT | Summary of Care ---
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 [address] [place] [phone] Reason for Visit Reason Comments Chest Pain Auth/Cert Status Reason Specialty Diagnoses / Referred By Referred To Procedures Contact Contact [facility] [address] [place] [address] [place] [address] Encounter Details Date Type Department Care Team Description 02/19/2020 Emergency [facility]-Emergency 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, 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 Chest pain, unspecified type (Primary Dx); Department [address] [place], [place] [phone] Allergies Active Allergy Reactions Severity Noted Date Comments Metronidazole Hcl Unknown - See comments 02/19/2020 documented as of this encounter (statuses as of 02/19/2020) Medications Not on filedocumented as of this encounter (statuses as of 02/19/2020) Active Problems Not on filedocumented as of this encounter (statuses as of 02/19/2020) Social History Tobacco Use Types Packs/Day Years Used Date Never Assessed Sex Assigned at Date Recorded Not on file Job Start Date Occupation Industry Not on file Not on file Not on file Travel History Travel Start Travel End No recent travel history available. documented as of this encounter Last Filed Vital Signs Vital Sign Reading Time Taken Comments Blood Pressure 128/70 02/19/2020 3:00 AM CDT Pulse 91 02/19/2020 3:00 AM CDT Temperature 37.2 C (99 F) 02/19/2020 1:45 AM CDT Respiratory Rate 11 02/19/2020 3:00 AM CDT Oxygen Saturation 100% 02/19/2020 3:00 AM CDT Inhaled Oxygen Concentration - - Weight 79.4 kg (175 lb) 02/19/2020 1:45 AM CDT Height 157.5 cm (5' 2") 02/19/2020 1:45 AM CDT Body Mass Index 32.01 02/19/2020 1:45 AM CDT documented in this encounter Discharge Instructions Brannon Kim FNP - 02/19/2020 DIAGNOSIS ICD-10-CM ICD-9-CM 1. Chest pain, unspecified type R07.9 786.50 2. Hyperglycemia R73.9 790.29 NO LIFE-THREATENING FINDINGS ON TODAY'S EXAM. 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 FOLLOW-UP RECOMMENDATIONS: RECOMMEND FOLLOW-UP WITH A PRIMARY CARE PROVIDER OR SPECIALIST IN 2-5 DAYS, ESPECIALLY IF NO IMPROVEMENT IN SYMPTOMS. TO FOLLOW-UP WITHIN THE [facility], TRY THESE OPTIONS (CLINIC APPOINTMENTS AVAILABLE ON [id number]-GMAI BASIS): 1. SCHEDULE AN APPOINTMENT ONLINE AT WWW.[facility] 2. OR CALL THE [facility] AT OR 3. OR CALL YOUR [facility] PHYSICIAN'S OFFICE DIRECTLY IF YOU ARE ALREADY AN ESTABLISHED [facility] PATIENT. OR, YOU MAY FOLLOW-UP WITH A PROVIDER OF YOUR CHOICE, SUCH : 1. A PHYSICIAN OF YOUR CHOICE 2. [facility], . LOCATIONS IN [facility] 3. [facility], [address], [place], [place]; [phone] RETURN TO ER FOR WORSENING OF SYMPTOMS. AttachmentsThe following attachments cannot be sent through Care Everywhere.Chest Pain, Uncertain Cause (Polish)Hyperglycemia (High Blood Sugar ) (Polish)documented in this encounter Plan of Treatment Name Type Priority Associated Diagnoses Date/Time XR CHEST 2 VW IMAGING STAT Chest pain, unspecified type 02/19/2020 2:12 AM CDT Health Maintenance Due Date Last Done Comments VARICELLA VACCINES (1 of 2 - 1984 2-dose childhood series) DTaP,Tdap,and Td Vaccines (1 - 1994 Tdap) PAP SMEAR 2004 INFLUENZA VACCINE (#1) 2019 PNEUMOCOCCAL 0-64 YEARS COMBINED Aged Out No longer eligible based on SERIES patient's age to complete this topic documented as of this encounter Procedures Procedure Name Priority Date/Time Associated Diagnosis Comments POCT GLUCOSE(AGE LIYAH 02/19/2020 4:08 Hyperglycemia Results for this >30DAYS) AM CDT procedure are in the results section. POCT GLUCOSE Routine 02/19/2020 4:05 Results for this (AUTOMATED) AM CDT procedure are in the results section. ACUTE CARE VENOUS STAT 02/19/2020 3:33 Chest pain, Results for this BLOOD GAS AM CDT unspecified type procedure are in Hyperglycemia the results section. XR CHEST 2 VW STAT 02/19/2020 2:12 Chest pain, AM CDT unspecified type Procedure Note - [facility], Radiant Results Inft User - 02/19/2020 2:59 AM CDT Chest EXAM: XR CHEST 2 VW COMPARISON: None TECHNIQUE: PA and lateral radiographs of the of the chest were obtained. HISTORY: chest pain FINDINGS: Lungs: The lungs are clear. No pleural effusion or pneumothorax is identified. Heart/Mediastinum: The cardiomediastinal silhouette is normal in size. Bones: No acute osseous abnormality is seen. IMPRESSION No acute cardiopulmonary abnormality. Preliminary Report Dictated by Resident: Virginia Colmenares Ikwuagwu POCT TEST [facility] 02/19/2020 2:02 AM Chest pain, Results for this CDT unspecified type procedure are in the results section. ADC / LCC - DRUG STAT 02/19/2020 2:01 AM Chest pain, Results for this SCREEN TRIAGE CDT unspecified type procedure are in the results section. URINALYSIS STAT 02/19/2020 2:01 AM Chest pain, Results for this CDT unspecified type procedure are in the results section. CBC WITH DIFFERENTIAL STAT 02/19/2020 1:54 AM Chest pain, Results for this CDT unspecified type procedure are in the results section. CBC WITH DIFFERENTIAL Routine 02/19/2020 1:54 AM Chest pain, Results for this CDT unspecified type procedure are in the results section. COMP. METABOLIC PANEL STAT 02/19/2020 1:54 AM Chest pain, Results for this (34978) CDT unspecified type procedure are in the results section. TROPONIN I STAT 02/19/2020 1:54 AM Chest pain, Results for this CDT unspecified type procedure are in the results section. EKG-12 LEAD LIYAH 02/19/2020 1:52 AM CDT documented in this encounter Results POCT GLUCOSE(AGE >30DAYS) (02/19/2020 4:08 AM CDT) POCT Glu (age>30days) 190 (A) 70 - 110 mg/dL Specimen Blood - CAPILLARY POCT GLUCOSE (AUTOMATED) (02/19/2020 4:05 AM CDT) POCT GLU 190 (H) 70 - 110 mg/dL [facility] Specimen Blood Performing Organization Address City/[facility] Cent[facility]ode Phone Number [facility] CLIA: [id number], [address] [place] [address] [phone] LABORATORY [facility] ACUTE CARE VENOUS BLOOD GAS (02/19/2020 3:33 AM CDT) PH 7.36 7.32 - 7.42 [facility] PCO2 LEANDRA 37 (L) 41 - 51 mmHg [facility] PO2 LEANDRA 52 (H) 25 - 40 mmHg [facility] HCO3 LEANDRA 20 (L) 24 - 28 mEq/L [facility] AC VBE(BEAKER) -4.5 mEq/L [facility] Specimen Blood - VENOUS Performing Organization Address City/[facility]/Zipcode Phone Number [facility] CLIA: [id number], [address] [place] [address] [phone] POCT TEST (02/19/2020 2:02 AM CDT) POCT PREG neg On board controls acceptable present with C Line Specimen Urine - URINE, CLEAN CATCH ADC / LCC - DRUG SCREEN TRIAGE (02/19/2020 2:01 AM CDT) BENZO U Negative Negative [facility] MONSERRAT U Negative Negative [facility] AMPHET Negative Negative [facility] THC Negative Negative [facility] METHADONE Negative Negative [facility] Meth U Negative Negative [facility] OPIATES Negative Negative [facility] Cocaine Metabolite Negative Negative [facility] PROPOXY Negative Negative [facility] Tric U Negative Negative [facility] PCP Negative Negative [facility] OXYCOD Negative Negative [facility] Specimen Urine - URINE, CLEAN CATCH Narrative Performed At Urine Drug Cutoff Ranges [facility] Benzodiazepines: 150 ng/mL Barbiturates: 200 ng/mL Amphetamine: 500 ng/mL Cannabinoids: 50 ng/mL Methadone: 200 ng/mL Methamphetamine: 500 ng/mL Opiates: 100 ng/mL or 2000 ng/mL Cocaine: 150 ng/mL Propoxyphene: 300 ng/mL Tricyclics: 300 ng/mL Oxycodone: 100 ng/mL PCP: 25 ng/mL The results are to be used only for medical (i.e., treatment) purposes. Unconfirmed screening results must not be used for non-medical purposes (e.g., employment testing, legal testing). Performing Organization Address City/State/Zipcode Phone Number [facility] CLIA: [id number], [address] [place] [address] URINALYSIS (02/19/2020 2:01 AM CDT) APPEARANCE Clear Clear [facility] COLOR Straw (A) Yellow [facility] PH 6.0 4.8 - 8.0 [facility] SP GRAVITY 1.024 1.003 - 1.030 [facility] GLU U QUAL 500 mg/dL (A) Normal [facility] BLOOD Negative Negative [facility] KETONES 5 mg/dL (A) Negative [facility] PROTEIN Negative Negative [facility] UROBILIN Normal Normal [facility] BILIRUBIN Negative Negative [facility] NITRITE Negative Negative [facility] LEUK TANISHA Negative Negative [facility] RBC/HPF <1 0 - 3 HPF [facility] WBC/HPF 1 0 - 5 HPF [facility] BACTERIA Negative Negative [facility] SQ EPITH <1 HPF [facility] YEAST BUD <1 <=1 HPF [facility] Specimen Urine - URINE, CLEAN CATCH Performing Organization Address City/State/Zipcode Phone Number [facility] CLIA: [id number], [address] [place] [address] [phone] CBC WITH DIFFERENTIAL (02/19/2020 1:54 AM CDT) WBC 12.52 (H) 4.30 - 11.10 [facility] 10*3/L [facility] RBC 4.76 3.93 - 5.25 [facility] 10*6/L [facility] HGB 14.2 11.6 - 15.0 [facility] g/dL [facility] HCT 40.4 35.7 - 45.2 % [facility] MCV 84.9 80.6 - 95.5 fL [facility] MCH 29.8 25.9 - 32.8 pg [facility] MCHC 35.1 31.6 - 35.1 [facility] g/dL [facility] RDW-SD 35.6 (L) 39.0 - 49.9 fL [facility] RDW-CV 11.5 (L) 12.0 - 15.5 % [facility] PLT 508 (H) 166 - 358 [facility] 10*3/L [facility] MPV 9.6 9.5 - 12.9 fL [facility] NRBC/100 WBC 0.0 0.0 - 10.0 /100 [facility] WBCs [facility] NRBC x10^3 <0.01 10*3/L [facility] GRAN MAT (NEUT) % 76.5 % [facility] IMM GRAN % 0.40 % [facility] LYMPH % 16.5 % [facility] MONO % 5.0 % [facility] EOS % 1.0 % [facility] BASO % 0.6 % [facility] GRAN MAT x10^3(ANC) 9.58 (H) 1.88 - 7.09 [facility] 10*3/uL HOSPITAL LAB[facility]ATORY IMM GRAN x10^3 0.05 0.00 - 0.06 [facility] 10*3/uL HOSPITAL [facility]ORY LYMPH x10^3 2.06 1.32 - 3.29 [facility] 10*3/uL H[facility]ITAL [facility] MONO x10^3 0.63 0.33 - 0.92 [facility] 10*3/uL HOSPITAL LAB[facility]ORY EOS x10^3 0.13 0.03 - 0.39 [facility] 10*3/uL HOSPITAL LAB[facility]ATORY BASO x10^3 0.07 0.01 - 0.[address]3/uL [facility] Specimen Blood - VENOUS Performing Organization Address City/[facility] Phone Number [facility] CLIA: [id number], [address] [place] [address] TROPONIN I (02/19/2020 1:54 AM CDT) TROPONIN I 0.000 <=0.034 ng/mL [facility] Specimen Blood - VENOUS Narrative Performed At Equal or Less than 0.034 ng/ml---Normal [facility] Note: Cardiac troponin begins to rise 3-4 hours after the onset of ischemia. Repeat in 4-6 hours if the sample was drawn within 3-4 hours of the onset of the symptom and found normal. Between 0.035 and 0.120 ng/mL--- Borderline. Questionable myocardial injury or necrosis Note: Serial measurement may be necessary to confirm or exclude the diagnosis of myocardial injury or necrosis; Clinical correlation (symptoms, EKGs, imaging studies, and others) required; Repeat in 4-6 hours if clinically indicated. Equal or Higher than 0.121 ng/mL---Abnormal. Myocardial Injury or Necrosis Likely Biotin has been reported to cause a negative bias, interpret results relative to patient's use of biotin. Performing Organization Address City/State/[facility] Phone Number [facility] CLIA: [id number], [address] [place] [address] COMP. METABOLIC PANEL ([id number]) (02/19/2020 1:54 AM CDT) NA 137 135 - 145 [facility] mmol/L [facility] K 3.2 (L) 3.5 - 5.0 [facility] mmol/L [facility] CL 99 98 - 108 mmol/L [facility] CO2 TOTAL 24 23 - 31 mmol/L [facility] AGAP 14 2 - 16 [facility] BUN 5 (L) 7 - 23 mg/dL [facility] GLUCOSE 447 (H) 70 - 110 mg/dL [facility] CREATININE 0.61 0.50 - 1.04 [facility] mg/dL [facility] TOTAL BILI 0.4 0.1 - 1.1 mg/dL [facility] CALCIUM 10.4 8.6 - 10.6 [facility] mg/dL [facility] T PROTEIN 7.7 6.3 - 8.2 g/dL [facility] ALBUMIN 4.6 3.5 - 5.0 g/dL [facility] ALK PHOS 132 (H) 34 - 122 U/L [facility] ALTv 12 5 - 35 U/L [facility] AST(SGOT) 26 13 - 40 U/L [facility] eGFR Calculation 111.0 mL/min/1.73m2 [facility] [place]) eGFR Calculation 134.5 mL/min/1.73m2 [facility] () [facility] Specimen Blood - VENOUS Narrative Performed At Association of Glomerular Filtration Rate (GFR) [facility] and Staging of Kidney Disease* + + +- + | GFR (mL/min/1.73 m2) | With Kidney Damage | Without Kidney Damage + + +- + | >90 | Stage one | Normal + + +- + | 60-89 | Stage two | Decreased GFR + + +- + | 30-59 | Stage three | Stage three + + +- + | 15-29 | Stage four | Stage four + + +- + | <15 (or dialysis) | Stage five | Stage five + + +- + *Each stage assumes the associated GFR level has been in effect for at least three months. Stages 1 to 5, with or without kidney disease, indicate chronic kidney disease. Notes: Determination of stages one and two (with eGFR >59mL/min/1.73 m2) requires estimation of kidney damage for at least three months as defined by structural or functional abnormalities of the kidney, manifested by either: Pathological abnormalities or Markers of kidney damage (including abnormalities in the composition of the blood or urine or abnormalities in imaging tests). Performing Organization Address City/State/Zipcode Phone Number [facility] CLIA: [id number], [address] [place] [address] [phone] documented in this encounter Visit Diagnoses Diagnosis Chest pain, unspecified type - Primary Hyperglycemia Other abnormal glucose documented in this encounter Administered Medications Medication Order MAR Action Action Date Dose Rate Site aspirin tablet 325 mg Given 02/19/2020 2:00 AM CDT 325 mg 325 mg, Oral, ONCE, 1 dose, 02/19/20 at 0300, STAT famotidine (PEPCID (PF)) injection 20 mg Given 02/19/2020 2:01 AM CDT 20 mg 20 mg, Slow IV Push, ONCE, 1 dose, 02/19/20 at 0300, LIYAH insulin regular human (HUMULIN R) Given 02/19/2020 2:52 AM CDT 10 Units injection 10 Units 10 Units, Slow IV Push, ONCE, 1 dose, 02/19/20 at 0345, LIYAH KCL (KLOR-CON M20) tablet 40 mEq Given 02/19/2020 2:51 AM CDT 40 mEq 40 mEq, Oral, ONCE, 1 dose, 02/19/20 at 0345, LIYAH ketorolac (TORADOL) injection 30 mg Given 02/19/2020 2:00 AM CDT 30 mg 30 mg, Slow IV Push, ONCE, 1 dose, 02/19/20 at 0300, Routine, modular set crew member approving Restricted medication: LORRIE SEAY maalox:diphenhydrAMINE:lidocaine 2 % viscous Given 02/19/2020 2:00 AM CDT 15 mL 1:1:1 ([employer] BLM) oral suspension 15 mL 15 mL, Oral, ONCE, 1 dose, 02/19/20 at 0300, Routine morpHINE injection 4 mg Given 02/19/2020 3:25 AM CDT 4 mg 4 mg, Slow IV Push, ONCE, 1 dose, 02/19/20 at 0430, STAT NaCl 0.9% (NS) bolus infusion New Bag 02/19/2020 2:29 AM CDT 1,000 mL 999 mL/hr 1,000 mL at 999 mL/hr, 1,000 mL, IV Infusion, ONCE, 1 dose, 02/19/20 at 0230, STAT documented in this encounter Insurance Payer Benefit Plan / Subscriber ID Effective Phone Address Type Group Dates MEDICAID MEDICAID PENDING [phone] [place] [phone] documented as of this encounter
[2020-02-19 23:15] LABS: Urine Blood NEGATIVE (NEG); Urine Glucose 2+ (NEG); Urine Protein NEGATIVE (NEG)
--- NOTE | 2020-02-19 23:37 | EDPHYS ---
Physician Documentation [facility] Name: Ara Plunkett Age: 34 yrs Sex: Female : 1985 Arrival Date: 02/19/2020 Time: 22:41 Bed 13 Private MD: ED Physician Alex Lemons HPI: 02/18 23:28 This 34 yrs old Female presents to ER via Ambulatory with complaints of Back rn Pain. 23:28 The patient presents with pain that is acute. rn 23:29 The symptoms are located in the low back. Onset: The symptoms/episode began/occurred 5 rn day(s) ago. The pain radiates to the right leg and left leg. Associated signs and symptoms: The patient has no apparent associated signs or symptoms, Pertinent positives: numbness, tingling, Pertinent negatives: abdominal pain, fever, hematuria, incontinence, urinary retention, vomiting, weakness. The problem was sustained without known cause. Modifying factors: The patient symptoms are alleviated by nothing, the patient symptoms are aggravated by any movement. Severity of symptoms: At their worst the symptoms were moderate, in the emergency department the symptoms are unchanged. The patient has not experienced similar symptoms in the past. Reports low back pain, radiates down both legs, began several days ago, no injury, no bowel/bladder issues, no weakness, ambulatory, denies drug use. Also longstanding diabetic that is poorly controlled. . 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 - Social history:: Smoking status: Patient reports the use of cigarette tobacco products, smokes one pack cigarettes per day. - Family history:: not pertinent. - Hospitalizations: : No recent hospitalization is reported. ROS: 23:29 Constitutional: Negative for fever, chills, and weight loss, Eyes: Negative for injury, rn pain, redness, and discharge, Neck: Negative for injury, pain, and swelling, Cardiovascular: Negative for chest pain, palpitations, and edema, Respiratory: Negative for shortness of breath, cough, wheezing, and pleuritic chest pain, Abdomen/GI: Negative for abdominal pain, nausea, vomiting, diarrhea, and constipation, Back: Negative for injury MS/Extremity: Negative for injury and deformity, Skin: Negative for injury, rash, and discoloration, Neuro: Negative for headache, weakness, and seizure. Exam: 23:29 Constitutional: This is a well developed, well nourished patient who is awake, alert, rn and in no acute distress. Ambulatory to room and bathroom. Head/Face: Normocephalic, atraumatic. Abdomen/GI: soft, non-tender Back: No spinal tenderness. No costovertebral tenderness. Skin: Warm, dry, and no evidence of cellulitis. MS/ Extremity: Pulses equal, no cyanosis. Neurovascular intact. Full, normal range of motion. Equal circumference. Neuro: Awake and alert, GCS 15, oriented to person, place, time, and situation. Cranial nerves II-XII grossly intact. Motor strength 5/5 in all extremities. Sensory grossly intact. Cerebellar exam normal. Normal gait. Vital Signs: 22:51 BP 136 / 86; Pulse 97; Resp 17 S; Temp 97.2(TE); Pulse Ox 100% on R/A; Weight 77.11 kg ca1 (R); Height 5 ft. 2 in. (157.48 cm) (R); Pain 9/10; 23:55 BP 119 / 83; Pulse 90; Resp 16; Pulse Ox 99% ; rr5 22:51 Body Mass Index 31.09 (77.11 kg, 157.48 cm) ca1 MDM: 22:43 Patient medically screened. rn 23:29 Differential diagnosis: Fatigue sprain, disc disorder, muscle strain, muscle spasm, rn radiculopathy, diabetic polyneuropathy. Data reviewed: vital signs, nurses notes, lab test result(s), and as a result, I will discharge patient. Counseling: I had a detailed discussion with the patient and/or guardian regarding: the historical points, exam findings, and any diagnostic results supporting the discharge/admit diagnosis, the need for outpatient follow up, to return to the emergency department if symptoms worsen or persist or if there are any questions or concerns that arise at home. Special discussion: I discussed with the patient/guardian in detail that at this point there is no indication for admission to the hospital. It is understood, however, that if the symptoms persist or worsen the patient needs to return immediately for re-evaluation. Based on the history and exam findings, there is no indication for further emergent testing or inpatient evaluation. I discussed with the patient/guardian the need to see the back specialist for further evaluation of the symptoms. I discussed with the patient/guardian the need to see the primary care provider for further evaluation of the symptoms. ED course: No signs or symptoms of cord compression, is poorly controlled diabetic, could equally be radiculopathy and diabetic polyneuropathy, urged her to f/u with pc for tighter glucose control. UA neg for infection or .. 23:39 ED course: PMPaware shows scores of 120/060/000/210, no active narcotic or sedative rn prescriptions.. 02/18 23:09 Order name: Urine Dipstick--Ancillary (enter results); Complete Time: 23:27 mt 02/18 22:58 Order name: Urine Dipstick-Ancillary (obtain specimen); Complete Time: 23:07 rn Administered Medications: 23:37 Drug: Flexeril 10 mg Route: PO; rr5 23:58 Follow up: Response: No adverse reaction rr5 Disposition: 02/19/20 23:36 Discharged to Home. Impression: Low back pain, Diabetes mellitus due to underlying condition with diabetic polyneuropathy, Radiculopathy, lumbosacral region. - Condition is Stable. - Discharge Instructions: Back Pain, Adult, Lumbosacral Radiculopathy, Peripheral Neuropathy. - Prescriptions for Cyclobenzaprine 10 mg Oral Tablet - take 1 tablet by ORAL route every 8 hours As needed; 15 tablet. - Medication Reconciliation Form, Thank You Letter, Antibiotic Education, Prescription Opioid Use form. - Follow up: Private Physician; When: As needed; Reason: Recheck today's complaints, Re-evaluation by your physician. - Problem is new. - Symptoms are unchanged. Signatures: Dispatcher [employer] EDMS Alex Lemons MD MD rn Roque, Raymond, RN RN rr5 Suyapa Gonzalez RN RN ca1 Corrections: (The following items were deleted from the chart) 23:58 23:36 02/19/2020 23:36 Discharged to Home. Impression: Low back pain; Diabetes mellitus rr5 due to underlying condition with diabetic polyneuropathy; Radiculopathy, lumbosacral region. Condition is Stable. Forms are Medication Reconciliation Form, Thank You Letter, Antibiotic Education, Prescription Opioid Use. Follow up: Private Physician; When: As needed; Reason: Recheck today's complaints, Re-evaluation by your physician. Problem is new. Symptoms are unchanged. rn
--- NOTE | 2020-02-19 23:37 | ER ---
Nurse's Notes [facility] Name: Ara Plunkett Age: 34 yrs Sex: Female : 1985 Arrival Date: 02/19/2020 Time: 22:41 Bed 13 Private MD: Diagnosis: Low back pain;Diabetes mellitus due to underlying condition with diabetic polyneuropathy;Radiculopathy, lumbosacral region Presentation: 02/18 22:51 Chief complaint: Patient states: low back pain more in the middle then goes to the R. ca1 Shooting pain on both legs then feels numb and hot. Denies fever. Coronavirus screen: Patient denies fever greater than 100.4F, cough, shortness of breath, or difficulty breathing. Proceed with normal triage process. Ebola Screen: Patient negative for fever greater than or equal to 101.5 degrees Fahrenheit, and additional compatible Ebola Virus Disease symptoms Patient denies exposure to infectious person. Patient denies travel to an Ebola-affected area in the 21 days before illness onset. No symptoms or risks identified at this time. Initial Sepsis Screen: Does the patient meet any 2 criteria? No. Patient's initial sepsis screen is negative. Does the patient have a suspected source of infection? No. Patient's initial sepsis screen is negative. Risk Assessment: Do you want to hurt yourself or someone else? Patient reports no desire to harm self or others. Onset of symptoms was February 19, 2020. 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 - Social history:: Smoking status: Patient reports the use of cigarette tobacco products, smokes one pack cigarettes per day. - Family history:: not pertinent. - Hospitalizations: : No recent hospitalization is reported. Screenin:27 Abuse screen: Denies threats or abuse. Denies injuries from another. Nutritional rr5 screening: No deficits noted. Tuberculosis screening: No symptoms or risk factors identified. Fall Risk None identified. Total Hannah Fall Scale indicates No Risk (0-24 pts). Assessment: 22:50 General: Appears in no apparent distress. uncomfortable, Behavior is calm, cooperative, rr5 appropriate for age. 22:50 Pain: Complains of pain in left low back and right low back Pain radiates to left leg rr5 Pain currently is 9 out of 10 on a pain scale. Quality of pain is described as aching, numb, Pain began gradually, Is intermittent. Neuro: Level of Consciousness is awake, alert, obeys commands, Oriented to person, place, time, situation. Cardiovascular: Capillary refill < 3 seconds Patient's skin is warm and dry. Respiratory: Airway is patent Respiratory effort is even, unlabored, Respiratory pattern is regular, symmetrical. GI: No signs and/or symptoms were reported involving the gastrointestinal system. : No signs and/or symptoms were reported regarding the genitourinary system. EENT: No signs and/or symptoms were reported regarding the EENT system. Derm: Skin is intact, is healthy with good turgor, Skin temperature is warm. Musculoskeletal: Capillary refill < 3 seconds, Reports pain in back Pain is 9 out of 10 on a pain scale. 02/19 00:00 Reassessment: Patient appears in no apparent distress at this time. Patient is alert, rr5 oriented x 3, equal unlabored respirations, skin warm/dry/pink. discharge instruction given and explained without complaints made. Patient states symptoms have improved. Vital Signs: 02/18 22:51 BP 136 / 86; Pulse 97; Resp 17 S; Temp 97.2(TE); Pulse Ox 100% on R/A; Weight 77.11 kg ca1 (R); Height 5 ft. 2 in. (157.48 cm) (R); Pain 9/10; 23:55 BP 119 / 83; Pulse 90; Resp 16; Pulse Ox 99% ; rr5 22:51 Body Mass Index 31.09 (77.11 kg, 157.48 cm) ca1 ED Course: 22:41 Patient arrived in ED. ag3 22:43 Alex Lemons MD is Attending Physician. rn 22:53 Triage completed. ca1 22:54 Arm band placed on right wrist. ca1 23:00 Patient has correct armband on for positive identification. Bed in low position. Call rr5 light in reach. 23:00 Urine collected: clean catch specimen, clear. rr5 23:05 Abe Westfall, RN is Primary Nurse. rr5 23:59 No provider procedures requiring assistance completed. Patient did not have IV access rr5 during this emergency room visit. Administered Medications: 23:37 Drug: Flexeril 10 mg Route: PO; rr5 23:58 Follow up: Response: No adverse reaction rr5 Outcome: 23:36 Discharge ordered by . rn 23:57 Discharged to home ambulatory. rr5 23:57 Condition: stable 23:57 Discharge instructions given to patient, Instructed on discharge instructions, follow up and referral plans. medication usage, Demonstrated understanding of instructions, follow-up care, medications, Prescriptions given X 1. 23:58 Patient left the ED. rr5 Signatures: Alex Lemons MD MD rn Sandee Jacome Raymond, RN RN rr5 Suyapa Gonzalez RN RN ca1
[2020-02-19] MEDS ORDERED: CYCLOBENZAPRINE 10 MG TAB ONE (23:39)
[2020-02-20 00:39] VITALS: BP 136/86; TEMP 97.2; O2SAT 100
== END 2020-02-19 23:58 | disposition home or self-care (01) ==
LOC: ER 22:37
DX: M54.17 Radiculopathy, lumbosacral region (principal); E11.42 Type 2 diabetes mellitus with diabetic polyneuropathy; F17.210 Nicotine dependence, cigarettes, uncomplicated; Z88.8 Allergy status to other drugs, medicaments and biological substances
CPT/HCPCS: 81003; 99283

== ENCOUNTER 2020-03-18 16:30 | Emergency (ER) | payer SELFPAY ==
[2020-03-18] MEDS ORDERED: NA CHLORIDE 0.9% 1,000 ML ONE ×2 (17:36→18:29)
[2020-03-18] MEDS ORDERED: KETOROLAC 30 MG/ML INJ ONE (17:36)
[2020-03-18 17:48] LABS: Absolute Lymphocytes (CBC) 1.8 K/uL (0.7-4.9); Basophils % 0.8 % (0-1.3); Hematocrit 41.4 % (36.0-45.0); Lymphocytes % 15.5 % (15.3-44.8); MPV 8.3 fL (7.6-11.3); RBC Red Blood Cell Count 4.65 M/uL (3.86-4.86)
[2020-03-18] MEDS ORDERED: ONDANSETRON 4 MG/2 ML VIAL ONE ×2 (17:53→18:08)
[2020-03-18 17:59] LABS: Urine Blood NEGATIVE (NEG); Urine Glucose 2+ (NEG); Urine Protein NEGATIVE (NEG); Urine Specific Gravity 1.005 (1.005-1.030); Urine pH 5.5 (5.0-7.0)
[2020-03-18 18:03] LABS: ALT/SGPT 10 U/L (12-78); AST/SGOT 4 U/L (15-37); Albumin 3.4 g/dL (3.4-5.0); Alkaline Phosphatase 131 U/L (45-117); BUN Blood Urea Nitrogen 9 mg/dL (7-18); Bicarbonate 24 mmol/L (21-32); Bilirubin Direct < 0.1 mg/dL (0-0.2); Bilirubin Total 0.3 mg/dL (0.2-1.0); Lipase 168 U/L (73-393); Protein, Total 7.7 g/dL (6.4-8.2); Sodium Level 131 mmol/L (136-145)
[2020-03-18] MEDS ORDERED: INSULIN -REGULAR HUMAN 50 UNIT/0.5 ML ML ONE (18:08)
[2020-03-18 18:09] LABS: Glucose Level 627 mg/dL (74-106)
[2020-03-18 18:11] LABS: Urine Bacteria <20 /HPF (<20); Urine Culture Reflex Order NOT NEEDED; Urine RBC NONE SEEN /HPF (NONE SEEN)
[2020-03-18] MEDS ORDERED: ACETAMINOPHEN 325 MG TABLET ONE (18:29)
[2020-03-18] MEDS ORDERED: FENTANYL CITR 100 MCG/2 ML ONE (21:00)
--- NOTE | 2020-03-18 21:44 | ER ---
Nurse's Notes [facility] Name: Ara Plunkett Age: 34 yrs Sex: Female : 1985 Arrival Date: 03/18/2020 Time: 16:33 Bed 6 Private MD: Diagnosis: Cholelithiasis;Low back pain;Diabetes mellitus due to underlying condition with hyperglycemia-poorly controlled Presentation: 03/18 16:44 Chief complaint: Patient states: Left lower back pain for 3 days. States she thinks she ll1 might have a kidney infection. No fever. Blood sugar has been high for 2 days, above 600 today at home. + dry mouth. Coronavirus screen: Proceed with normal triage. Patient denies a cough. Patient denies shortness of breath or difficulty breathing. Patient denies measured and/or subjective temperature greater than 100.4F prior to today's visit. Patient denies travel on a cruise ship or to a country the [facility] currently lists as an affected area. Patient denies contact with known and/or suspected case of COVID-19. Ebola Screen: Patient denies travel to an Ebola-affected area in the 21 days before illness onset. Initial Sepsis Screen: Does the patient meet any 2 criteria? No. Patient's initial sepsis screen is negative. Does the patient have a suspected source of infection? No. Patient's initial sepsis screen is negative. Risk Assessment: Do you want to hurt yourself or someone else? Patient reports no desire to harm self or others. Onset of symptoms was March 15, 2020. 16:44 Method Of Arrival: Ambulatory 1 16:44 Acuity: CHARISSA 3 ll1 Historical: - Allergies: 16:47 Flagyl; ll1 16:47 steroids; ll1 - PMHx: 16:47 Diabetes - NIDDM; ll1 - PSHx: 16:47 None; ll1 - Social history:: Smoking status: Patient reports the use of cigarette tobacco products, smokes one-half pack cigarettes per day, Patient/guardian denies using alcohol, street drugs. Screenin:28 Abuse screen: Denies threats or abuse. Denies injuries from another. Nutritional ph screening: No deficits noted. Tuberculosis screening: No symptoms or risk factors identified. Fall Risk None identified. Assessment: 18:27 General: Appears in no apparent distress. comfortable, obese, Behavior is calm, ph cooperative, appropriate for age, Denies fever, chills. Pain: Complains of pain in low back area and mid back area. Neuro: Level of Consciousness is awake, alert, obeys commands, Oriented to person, place, time, situation. Cardiovascular: Capillary refill < 3 seconds in bilateral fingers Patient's skin is warm and dry. Respiratory: Airway is patent Respiratory effort is even, unlabored, Respiratory pattern is regular, symmetrical. GI: Reports diarrhea, nausea, vomiting, Patient currently denies abdominal pain. : Reports pain in lower back urinary frequency. Derm: Skin is intact, Skin is pink, warm \T\ dry. Musculoskeletal: Circulation, motion, and sensation intact. Range of motion: intact in all extremities. 19:05 Reassessment: Patient appears in no apparent distress at this time. Patient and/or jb4 family updated on plan of care and expected duration. Pain level reassessed. Patient is alert, oriented x 3, equal unlabored respirations, skin warm/dry/pink. 20:00 Reassessment: Patient appears in no apparent distress at this time. Patient and/or jb4 family updated on plan of care and expected duration. Pain level reassessed. Patient is alert, oriented x 3, equal unlabored respirations, skin warm/dry/pink. 20:50 Reassessment: PT reports pain is 8/10, provider notified, see MAR for orders. jb4 21:00 Reassessment: Patient appears in no apparent distress at this time. Patient and/or jb4 family updated on plan of care and expected duration. Pain level reassessed. Patient is alert, oriented x 3, equal unlabored respirations, skin warm/dry/pink. 21:40 Reassessment: No changes from previously documented assessment. Patient and/or family jb4 updated on plan of care and expected duration. Pain level reassessed. Patient is alert, oriented x 3, equal unlabored respirations, skin warm/dry/pink. Patient states feeling better. Vital Signs: 16:44 BP 131 / 90; Pulse 90; Resp 19; Temp 98.9; Pulse Ox 98% ; Pain 9/10; ll1 19:30 BP 115 / 61; Pulse 89; Resp 17; Pulse Ox 98% on R/A; rr5 20:30 BP 115 / 76; Pulse 83; Resp 16; Temp 98.8; Pulse Ox 99% ; rr5 21:40 BP 119 / 71; Pulse 88; Resp 16; Pulse Ox 99% on R/A; Pain 7/10; jb4 ED Course: 16:33 Patient arrived in ED. mr 16:34 Rashad Sandoval PA is PHCP. cp 16:34 Rashad Melgoza MD is Attending Physician. cp 16:47 Triage completed. ll1 16:47 Arm band placed on Patient placed in an exam room, on a stretcher. ll1 17:00 Idalmis Cotton, RN is Primary Nurse. hb 17:14 Malini Baca, RN is Primary Nurse. ph 17:35 Initial lab(s) drawn, by co, sent to lab. Inserted saline lock: 22 gauge in right ph antecubital area, using aseptic technique. Blood collected. 18:28 Patient has correct armband on for positive identification. Bed in low position. Call ph light in reach. Side rails up X 1. Pulse ox on. NIBP on. Door closed. Noise minimized. 19:06 Primary Nurse role handed off by Malini Baca RN jb4 19:06 Alejandro Dhillon, RN is Primary Nurse. jb4 21:40 US Abdomen Limited: RUQ In Process Unspecified. EDMS 21:42 Alejandro Nguyễn MD is Referral Physician. cp 21:55 No provider procedures requiring assistance completed. IV discontinued, intact, jb4 bleeding controlled, No redness/swelling at site. Pressure dressing applied. Administered Medications: 17:42 Drug: NS 0.9% 1000 ml Route: IV; Rate: 1 bolus; Site: right antecubital; ph 19:30 Follow up: Response: No adverse reaction; IV Status: Completed infusion; IV Intake: jb4 1000ml 17:43 Drug: TORadol - Ketorolac 15 mg Route: IVP; Site: right antecubital; ph 18:29 Follow up: Response: No adverse reaction ph 18:05 Drug: Zofran (Ondansetron) 4 mg Route: IVP; Site: right antecubital; ph 18:30 Follow up: Response: No adverse reaction ph 18:09 Drug: Insulin Regular Human 10 units {Co-Signature: em (Luis Donis RN).} Route: IVP; hb Site: right antecubital; 19:30 Follow up: Response: No adverse reaction; Blood sugar is lowered jb4 18:28 Drug: NS 0.9% 1000 ml Route: IV; Rate: 1 bolus; Site: right antecubital; em 19:30 Follow up: Response: No adverse reaction; IV Status: Completed infusion; IV Intake: jb4 1000ml 18:28 Drug: Tylenol 650 mg Route: PO; em 19:30 Follow up: Response: No adverse reaction jb4 20:59 Drug: fentaNYL (PF) 25 mcg {Note: Rass score 0.} Route: IVP; Site: right antecubital; jb4 21:45 Follow up: Response: No adverse reaction; Pain is decreased; RASS: Alert and Calm (0) jb4 22:03 Drug: [place]den (7.5 mg-325 mg) 1 tabs {Note: Rass score 0 .} Route: PO; jb4 22:03 Follow up: Response: Medication administered at discharge. jb4 Intake: 19:30 IV: 1000ml; Total: 1000ml. jb4 19:30 IV: 1000ml; Total: 2000ml. jb4 Outcome: 21:43 Discharge ordered by MD. cp 21:55 Discharged to home ambulatory, with family. jb4 21:55 Condition: stable 21:55 Discharge instructions given to patient, Instructed on discharge instructions, follow up and referral plans. medication usage, Demonstrated understanding of instructions, follow-up care, medications, Prescriptions given X 3. 22:04 Patient left the ED. jb4 Signatures: Dispatcher [employer] SHARAD Uri Milena leahy Luis Donis RN RN Malini Baca RN RN ph Page, Corey, PA PA cp Baxter, Heather, RN RN hb Bryson, James, RN RN jb4 Abe Westfall RN RN rr5 Robert Cooper RN RN ll1 Luis Donis RN
--- NOTE | 2020-03-18 21:45 | EDPHYS ---
Physician Documentation [facility] Name: Ara Plunkett Age: 34 yrs Sex: Female : 1985 Arrival Date: 03/18/2020 Time: 16:33 Bed 6 Private MD: ZACHARY Physician Rashad Melgoza HPI: 03/18 16:56 This 34 yrs old Female presents to ER via Ambulatory with complaints of High cp Blood Sugar, Back Pain. 16:56 The patient presents with pain that is acute, with no known mechanism of injury. The cp symptoms are located in the low back area and mid back area. Onset: The symptoms/episode began/occurred 3 day(s) ago. 16:56 The pain radiates to the right leg. Associated signs and symptoms: Pertinent positives: cp dysuria, Pertinent negatives: chest pain, constipation, fever, incontinence, numbness, urinary retention, weakness. The problem was sustained from unknown cause. The patient or guardian reports hyperglycemia, that was potentially precipitated by admits to not taking metformin daily and as prescribed and not currently having a family physician. Associated signs and symptoms: Pertinent positives: abdominal pain. Historical: - Allergies: 16:47 Flagyl; ll1 16:47 steroids; ll1 - PMHx: 16:47 Diabetes - NIDDM; ll1 - PSHx: 16:47 None; ll1 - Social history:: Smoking status: Patient reports the use of cigarette tobacco products, smokes one-half pack cigarettes per day, Patient/guardian denies using alcohol, street drugs. ROS: 17:10 Constitutional: Negative for body aches, chills, fever, poor PO intake. cp 17:10 Eyes: Negative for injury, pain, redness, and discharge. cp 17:10 ENT: Negative for drainage from ear(s), ear pain, sore throat, difficulty swallowing, difficulty handling secretions. 17:10 Cardiovascular: Negative for chest pain, palpitations. 17:10 Respiratory: Negative for cough, shortness of breath, wheezing. 17:10 Abdomen/GI: Positive for abdominal pain, Negative for vomiting, diarrhea, constipation, anorexia, black/tarry stool, rectal bleeding, bowel incontinence. 17:10 Back: Positive for pain at rest, pain with movement, of the low back area and mid back area. 17:10 : Positive for burning with urination, Negative for difficulty urinating, bladder incontinence, vaginal bleeding, vaginal discharge. 17:10 Neuro: Negative for altered mental status, headache, numbness, weakness. 17:10 All other systems are negative. Exam: 17:15 Constitutional: The patient appears in no acute distress, alert, awake, cp non-diaphoretic, non-toxic, well developed, well nourished, obese. 17:15 Head/Face: Normocephalic, atraumatic. cp 17:15 Eyes: Periorbital structures: appear normal, Conjunctiva: normal, no exudate, no injection, Sclera: no appreciated abnormality, Lids and lashes: appear normal, bilaterally. 17:15 ENT: External ear(s): are unremarkable, Nose: is normal, Mouth: is normal, Posterior pharynx: is normal, airway is patent, no erythema, no exudate. 17:15 Neck: ROM/movement: is normal, is supple, without pain, no range of motions limitations, no nuchal rigidity. 17:15 Chest/axilla: Inspection: normal, Palpation: is normal, no crepitus, no tenderness. 17:15 Cardiovascular: Rate: normal, Rhythm: regular. 17:15 Respiratory: the patient does not display signs of respiratory distress, Respirations: normal, no use of accessory muscles, no retractions, labored breathing, is not present, Breath sounds: are clear throughout, no decreased breath sounds, no stridor, no wheezing. 17:15 Abdomen/GI: Inspection: abdomen appears normal, Bowel sounds: active, all quadrants, Palpation: soft, in all quadrants, mild abdominal tenderness, in the right upper quadrant, rebound tenderness, is not appreciated, voluntary guarding, is not appreciated, involuntary guarding, is not appreciated. 17:15 Back: pain, that is moderate, of the low back area and mid back area, ROM is normal, Straight leg raises: of both lower extremities does not illicit pain. 17:15 Skin: no rash present. 17:15 Neuro: Orientation: to person, place \T\ time. Mentation: is normal, Motor: moves all fours, strength is normal, Sensation: is normal, Deep tendon reflexes are 2+ (normal) in the right patellar, right Achilles, left patellar and left Achilles. Vital Signs: 16:44 BP 131 / 90; Pulse 90; Resp 19; Temp 98.9; Pulse Ox 98% ; Pain 9/10; ll1 19:30 BP 115 / 61; Pulse 89; Resp 17; Pulse Ox 98% on R/A; rr5 20:30 BP 115 / 76; Pulse 83; Resp 16; Temp 98.8; Pulse Ox 99% ; rr5 21:40 BP 119 / 71; Pulse 88; Resp 16; Pulse Ox 99% on R/A; Pain 7/10; jb4 MDM: 16:42 Patient medically screened. cp 17:15 Differential diagnosis: Cholelithiasis chronic back pain, DKA, hyperglycemia, Obesity cp Pyelonephritis Ureterolithiasis UTI. 21:33 Data reviewed: vital signs, nurses notes, lab test result(s), US tech reports multiple cp gallstones w/o gallbladder wall thickening or pericholecystic fluid. 21:41 ED course: Patient has narcotic score of 120 and sedative score of 60 according to cp website of [place] prescription monitoring program. 21:42 Counseling: I had a detailed discussion with the patient and/or guardian regarding: the cp historical points, exam findings, and any diagnostic results supporting the discharge/admit diagnosis, lab results, radiology results, the need for outpatient follow up, for definitive care, a family practitioner, a general surgeon, to return to the emergency department if symptoms worsen or persist or if there are any questions or concerns that arise at home. 21:42 Response to treatment: the patient's symptoms have markedly improved after treatment, cp Pain improved and blood glucose improved, and as a result, I will discharge patient. 03/18 16:57 Order name: Urine Microscopic Only; Complete Time: 18:15 03/18 20:03 Interpretation: Reviewed. 03/18 16:57 Order name: Basic Metabolic Panel; Complete Time: 18:15 03/18 18:16 Interpretation: Normal except: NA 131; GLUC 627; GFR 56. 03/18 16:57 Order name: CBC with Diff; Complete Time: 17:56 03/18 17:57 Interpretation: Normal except: WBC 11.6; PLT 420; GEMA% 77.4; NEUT A 9.0. 03/18 16:57 Order name: Creatinine for Radiology; Complete Time: 18:15 03/18 16:57 Order name: Hepatic Function; Complete Time: 18:15 03/18 18:28 Interpretation: Normal except: AST 4; ALT 10; ALK 131; GLOB 4.3; A/G 0.8. 03/18 16:57 Order name: Lipase; Complete Time: 18:15 cp 03/18 17:42 Order name: Glucose; Complete Time: 18:15 ph 03/18 17:49 Order name: Urine Dipstick--Ancillary (enter results) 03/18 17:50 Order name: Urine Dipstick-Ancillary; Complete Time: 20:03 EDMS 03/18 20:03 Interpretation: Normal except: UGLUC 2+. cp 03/18 17:54 Order name: Glucose, Ancillary Testing; Complete Time: 17:56 EDMS 03/18 17:57 Interpretation: Abnormal: GLUC,ANCIL > 500. 03/18 19:07 Order name: US Abdomen Limited: RUQ 03/18 19:46 Order name: Glucose, Ancillary Testing; Complete Time: 19:55 EDMS 03/18 19:55 Interpretation: Abnormal: GLUC,ANCIL 228. 03/18 16:57 Order name: Accucheck Blood Glucose; Complete Time: 17:43 cp 03/18 16:57 Order name: Urine Dipstick-Ancillary (obtain specimen); Complete Time: 17:27 cp 03/18 16:57 Order name: NPO; Complete Time: 17:27 03/18 16:57 Order name: IV Saline Lock; Complete Time: 17:43 cp 03/18 16:57 Order name: Labs collected and sent; Complete Time: 17:43 cp Administered Medications: 17:42 Drug: NS 0.9% 1000 ml Route: IV; Rate: 1 bolus; Site: right antecubital; ph 19:30 Follow up: Response: No adverse reaction; IV Status: Completed infusion; IV Intake: jb4 1000ml 17:43 Drug: TORadol - Ketorolac 15 mg Route: IVP; Site: right antecubital; ph 18:29 Follow up: Response: No adverse reaction ph 18:05 Drug: Zofran (Ondansetron) 4 mg Route: IVP; Site: right antecubital; ph 18:30 Follow up: Response: No adverse reaction ph 18:09 Drug: Insulin Regular Human 10 units {Co-Signature: em (Luis Donis RN).} Route: IVP; hb Site: right antecubital; 19:30 Follow up: Response: No adverse reaction; Blood sugar is lowered jb4 18:28 Drug: NS 0.9% 1000 ml Route: IV; Rate: 1 bolus; Site: right antecubital; em 19:30 Follow up: Response: No adverse reaction; IV Status: Completed infusion; IV Intake: jb4 1000ml 18:28 Drug: Tylenol 650 mg Route: PO; em 19:30 Follow up: Response: No adverse reaction jb4 20:59 Drug: fentaNYL (PF) 25 mcg {Note: Rass score 0.} Route: IVP; Site: right antecubital; jb4 21:45 Follow up: Response: No adverse reaction; Pain is decreased; RASS: Alert and Calm (0) jb4 22:03 Drug: [place] (7.5 mg-325 mg) 1 tabs {Note: Rass score 0 .} Route: PO; jb4 22:03 Follow up: Response: Medication administered at discharge. [facility] Disposition: 03/18/20 21:43 Discharged to Home. Impression: Cholelithiasis, Low back pain, Diabetes mellitus due to underlying condition with hyperglycemia - poorly controlled. - Condition is Stable. - Discharge Instructions: Back Pain, Adult, Biliary Colic, Adult, Cholelithiasis, Blood Glucose Monitoring, Adult, Diabetes Mellitus and Food, Back Exercises. - Prescriptions for Naprosyn 500 mg Oral Tablet - take 1 tablet by ORAL route 2 times per day take with food; 20 tablet. Metformin 1,000 mg Oral Tablet - take 1 tablet by ORAL route every 12 hours with morning and evening meals; 60 tablet. Tramadol 50 mg Oral Tablet - take 1 tablet by ORAL route every 8 hours as needed; 20 tablet. - Medication Reconciliation Form, Thank You Letter, Antibiotic Education, Prescription Opioid Use form. - Follow up: Alejandro Nguyễn MD; When: 2 - 3 days; Reason: cholelithiasis. Follow up: Private Physician; When: 1 - 2 days; Reason: diabetes. Addendum: 03/20/2020 09:52 Co-signature as Attending Physician, Rashad Melgoza MD I agree with the assessment and c chapman plan of care. Signatures: Dispatcher [employer] Rashad Graham MD MD cha Munoz, Edgar RN RN Malini Baca RN RN Rashad Tavarez PA PA cp Idalmis Cotton RN RN Alejandro Dhillon RN RN jb4 Robert Cooper RN RN ll1 Luis Donis RN Corrections: (The following items were deleted from the chart) 03/18 22:04 21:43 03/18/2020 21:43 Discharged to Home. Impression: Cholelithiasis; Low back pain; jb4 Diabetes mellitus due to underlying condition with hyperglycemia - poorly controlled. Condition is Stable. Forms are Medication Reconciliation Form, Thank You Letter, Antibiotic Education, Prescription Opioid Use. Follow up: Alejandro Nguyễn; When: 2 - 3 days; Reason: cholelithiasis. Follow up: Private Physician; When: 1 - 2 days; Reason: diabetes. cp
[2020-03-18] MEDS ORDERED: HYDROCODONE/APAP 7.5/325 MG TAB ONE (21:56)
--- NOTE | 2020-03-18 22:04 | RAD REPORT ---
EXAM DESCRIPTION: US - Abdomen Exam Limited - 03/18/2020 9:40 pm CLINICAL HISTORY: Abdominal pain. COMPARISON: November 2019 CT FINDINGS: Multiple gallstones. The gallbladder wall is not thickened The biliary tree is normal caliber. IMPRESSION: Cholelithiasis without evidence cholecystitis
[2020-03-18 22:37] VITALS: TEMP 98.8; O2SAT 99
[2020-03-18 22:38] VITALS: BP 119/71
== END 2020-03-18 22:04 | disposition home or self-care (01) ==
LOC: ER 16:30
DX: K80.20 Calculus of gallbladder without cholecystitis without obstruction (principal); E11.65 Type 2 diabetes mellitus with hyperglycemia; F17.210 Nicotine dependence, cigarettes, uncomplicated; Z88.8 Allergy status to other drugs, medicaments and biological substances
CPT/HCPCS: 36415; 76705; 80048; 80076; 81003; 81015; 82947; 83690; 85025; 96361; 96374; 96375; 99284; J2405; J3010; J7030

== ENCOUNTER 2020-04-07 22:05 | Emergency (ER) | payer SELFPAY ==
--- OUTSIDE RECORDS SUMMARY | 2020-04-07 22:08 | XMS REPORT | Clinical Summary ---
:1985 [facility] Address [address] [place] [address] Care Team Providers Name Role Phone Pcp Primary Care Provider Unavailable Allergies No Known Allergies Medications Medication Sig Dispensed Refills Start Date End Date Status metFORMIN Take 1 tablet 30 tablet 3 04/09/2018 04/09/2019 Expi red (GLUCOPHAGE-XR) 750 (750 mg total) MG 24 hr tablet by mouth daily with breakfast. metFORMIN Take 1 tablet 30 tablet 11 06/15/2018 06/15/2019 Expi red (GLUCOPHAGE-XR) 750 (750 mg total) MG 24 hr tablet by mouth daily with breakfast. Active Problems Problem Noted Date Pyelonephritis 04/04/2018 Type 2 diabetes mellitus with hyperglycemia, without l gary-term current use 04/04/2018 of insulin Leukocytosis, unspecified type 04/04/2018 Social History Tobacco Use Types Packs/Day Years Used Date Current Every Day Smoker 2 Smokeless Tobacco: Never Used Alcohol Use Drinks/Week oz/Week Comments No Sex Assigned at Date Recorded Not on file Job Start Date Occupation Industry Not on file Not on file Not on file Travel History Travel Start Travel End No recent travel history available. Last Filed Vital Signs Not on file Plan of Treatment Not on file Results Not on fileafter 04/07/2019 Advance Directives For more information, please contact:[email or web address] [id number] [place], [place] [phone] Code Status Date Activated Date Inactivated Comments Full Code 04/04/2018 5:20 PM 04/09/2018 3:29 PM This code status was determined by: Patient
[2020-04-07] MEDS ORDERED: MORPHINE 2 MG/ML SYR ONE ×2 (22:47→23:58)
[2020-04-07] MEDS ORDERED: ONDANSETRON 4 MG/2 ML VIAL ONE (22:47)
[2020-04-07 22:56] LABS: Absolute Lymphocytes (CBC) 3.4 K/uL (0.7-4.9); Basophils % 1.2 % (0-1.3); Lymphocytes % 29.6 % (15.3-44.8); MPV 8.1 fL (7.6-11.3); RBC Red Blood Cell Count 4.54 M/uL (3.86-4.86)
[2020-04-07 23:17] LABS: ALT/SGPT 13 U/L (12-78); AST/SGOT 12 U/L (15-37); Albumin 3.3 g/dL (3.4-5.0); Alkaline Phosphatase 98 U/L (45-117); BUN Blood Urea Nitrogen 4 mg/dL (7-18); Bicarbonate 26 mmol/L (21-32); Bilirubin Direct < 0.1 mg/dL (0-0.2); Bilirubin Total 0.2 mg/dL (0.2-1.0); Glucose Level 395 mg/dL (74-106); Lipase 238 U/L (73-393); Potassium 3.4 mmol/L (3.5-5.1); Protein, Total 7.3 g/dL (6.4-8.2); Sodium Level 137 mmol/L (136-145)
[2020-04-07 23:17] LABS: Urine Blood NEGATIVE (NEG); Urine Glucose 2+ (NEG); Urine Protein NEGATIVE (NEG); Urine Specific Gravity 1.015 (1.005-1.030); Urine pH 5.5 (5.0-7.0)
[2020-04-07 23:32] LABS: Urine Bacteria 20-50 /HPF (<20); Urine Culture Reflex Order REFLEXED
[2020-04-07] MEDS ORDERED: KCL 20 MEQ/100 mL IVPB 20 MEQ/100 ML BAG IV ONE (23:34)
[2020-04-07] MEDS ORDERED: NA CHLORIDE 0.9% 1,000 ML ONE (23:35)
[2020-04-08 00:19] LABS: Urine Yeast FEW (NONE SEEN)
--- NOTE | 2020-04-08 01:01 | ER ---
Nurse's Notes [facility] Name: Ara Plunkett Age: 35 yrs Sex: Female : 1985 Arrival Date: 04/07/2020 Time: 22:24 Bed 18 Private MD: Diagnosis: Urinary tract infection, site not specified;Diabetes mellitus due to underlying condition with hyperglycemia Presentation: 04/07 22:34 Chief complaint: Patient states: Left flank pain for 2 days, worse for 2 hours. + N/V ll1 this am. No fever. + dysuria with urinary frequency. Coronavirus screen: Proceed with normal triage. Patient denies a cough. Patient denies shortness of breath or difficulty breathing. Patient denies measured and/or subjective temperature greater than 100.4F prior to today's visit. Patient denies travel on a cruise ship or to a country the [facility] currently lists as an affected area. Patient denies contact with known and/or suspected case of COVID-19. Ebola Screen: Patient denies travel to an Ebola-affected area in the 21 days before illness onset. Initial Sepsis Screen: Does the patient meet any 2 criteria? HR > 90 bpm. No. Patient's initial sepsis screen is negative. Does the patient have a suspected source of infection? No. Patient's initial sepsis screen is negative. Risk Assessment: Do you want to hurt yourself or someone else? Patient reports no desire to harm self or others. Onset of symptoms was April 05, 2020. 22:34 Method Of Arrival: Ambulatory ll1 22:34 Acuity: CHARISSA 3 ll1 Triage Assessment: 22:37 General: Appears uncomfortable, Behavior is calm, cooperative, appropriate for age. ll1 Pain: Complains of pain in left flank Pain currently is 10 out of 10 on a pain scale. Quality of pain is described as squeezing, tender, Pain began 2-3 days ago. Is intermittent. Neuro: No deficits noted. Cardiovascular: No deficits noted. Respiratory: No deficits noted. GI: Abdomen is flat, Bowel sounds present X 4 quads. Abd is soft Abdomen is tender to palpation in right lower quadrant and left lower quadrant Reports lower abdominal pain, nausea, vomiting. : Reports burning with urination, urinary frequency. Musculoskeletal: Circulation, motion, and sensation intact. Capillary refill < 3 seconds, Reports pain in left lower back/left flank. 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 - Social history:: Smoking status: Patient denies any tobacco usage or history of. Smoking status: Patient reports the use of cigarette tobacco products, smokes one-half pack cigarettes per day, Patient/guardian denies using alcohol, street drugs. Screenin:36 Abuse screen: Denies threats or abuse. Nutritional screening: No deficits noted. ll1 Tuberculosis screening: No symptoms or risk factors identified. Fall Risk None identified. IV access (20 points). Total Hannah Fall Scale indicates No Risk (0-24 pts). Assessment: 22:45 General: Appears uncomfortable, Behavior is calm, cooperative. Pain: Complains of pain ll1 in left flank Pain currently is 10 out of 10 on a pain scale. Quality of pain is described as aching, squeezing, Pain began 2-3 days ago. Is intermittent. Neuro: No deficits noted. Cardiovascular: No deficits noted. Respiratory: No deficits noted. GI: Abdomen is flat, Bowel sounds present X 4 quads. Abd is soft Abdomen is tender to palpation in right lower quadrant and left lower quadrant Reports lower abdominal pain, nausea, vomiting, Patient currently denies constipation, diarrhea. : Reports burning with urination, urinary frequency. 23:45 Reassessment: No changes from previously documented assessment. Patient and/or family ll1 updated on plan of care and expected duration. Pain level reassessed. Patient is alert, oriented x 3, equal unlabored respirations, skin warm/dry/pink. 04/08 01:06 Reassessment: Patient appears in no apparent distress at this time. Patient and/or sg family updated on plan of care and expected duration. Pain level reassessed. orders received to repeat bolus 1 liter, administer abx and potassium PO, also ordered to discharge patient to home per ALLISON PARKER. pt to be dispo when orders are completed. 01:26 Reassessment: Patient appears in no apparent distress at this time. pt requesting more sg pain medication at this time for back, ERP notified awaiting new orders at this time. 02:22 Reassessment: Patient appears in no apparent distress at this time. awaiting IVF to sg complete infusion as ordered prior to DC to home. Vital Signs: 04/07 22:34 BP 128 / 72; Pulse 95; Resp 17; Temp 98.2; Pulse Ox 98% ; Pain 10/10; ll1 04/08 00:00 BP 134 / 81; Pulse 85; Resp 16; Pulse Ox 99% ; Pain 8/10; ll1 02:00 BP 136 / 77; Pulse 82; Resp 16; Temp 98.1; Pulse Ox 100% on R/A; sg ED Course: 04/07 22:24 Patient arrived in ED. ds1 22:26 Robert Cooper RN is Primary Nurse. ll1 22:27 Rashad Sandoval PA is PHCP. cp 22:27 Rashad Melgoza MD is Attending Physician. cp 22:36 Triage completed. ll1 22:36 Arm band placed on Patient placed in an exam room, on a stretcher. ll1 22:37 Patient has correct armband on for positive identification. Bed in low position. Call 1 light in reach. Side rails up X 1. Pulse ox on. NIBP on. 22:49 Initial lab(s) drawn, by me, sent to lab. Inserted saline lock: 22 gauge in right lt1 antecubital area, using aseptic technique. 23:53 CT Stone Protocol In Process Unspecified. EDMS 04/08 00:55 Primary Nurse role handed off by Robert Cooper RN sg 00:55 Fidencio Dinero, VÍCTOR is Primary Nurse. sg 02:30 No provider procedures requiring assistance completed. IV discontinued, intact, sg bleeding controlled, No redness/swelling at site. Pressure dressing applied. Administered Medications: 04/07 22:58 Drug: Zofran (Ondansetron) 4 mg Route: IVP; Site: right antecubital; 1 23:49 Follow up: Response: No adverse reaction ll1 22:59 Drug: morphine 2 mg Route: IVP; Site: right antecubital; ll1 23:50 Follow up: Response: No adverse reaction; RASS: Alert and Calm (0) ll1 23:49 Drug: Potassium Chloride 10 mEq Route: IV; Rate: calculated rate; Site: right ll1 antecubital; 04/08 01:30 Follow up: Response: No adverse reaction; IV Status: Completed infusion 04/07 23:49 Drug: NS 0.9% 1000 ml Route: IV; Rate: 1 bolus; Site: right antecubital; ll1 04/08 00:15 Follow up: Response: No adverse reaction; IV Status: Completed infusion; IV Intake: sg 1000ml 00:00 Drug: morphine 2 mg {Note: RASS 0.} Route: IVP; Site: right antecubital; 1 01:15 Drug: Rocephin 1 grams Route: IV; Rate: calculated rate; Site: right antecubital; sg 01:28 Follow up: Response: No adverse reaction; IV Status: Completed infusion; IV Intake: 20mlsg 01:15 Drug: DiFLUcan 200 mg Route: PO; sg 01:15 Drug: NS 0.9% 1000 ml Route: IV; Rate: 1 bolus; Site: right antecubital; 01:23 Drug: Potassium Effervescent Tablet 25 mEq Route: PO; sg 02:10 Drug: Bishop 10 mg-325 mg 1 tabs Route: PO; sg Intake: 00:15 IV: 1000ml; Total: 1000ml. sg 01:28 IV: 20ml; Total: 1020ml. sg Outcome: 01:00 Discharge ordered by . cp 02:30 Discharged to home ambulatory. sg 02:30 Condition: good 02:30 Discharge instructions given to patient, Instructed on discharge instructions, follow up and referral plans. medication usage, safety practices, Demonstrated understanding of instructions, follow-up care, medications, Prescriptions given X 3. 02:39 Patient left the ED. sg Signatures: Dispatcher [employer] EDFidencio Robins RN RN sg Betsey Harris ds1 Rashad Sandoval PA PA cp Tran, Leah lt1 Robert Cooper RN RN ll1
--- NOTE | 2020-04-08 01:01 | EDPHYS ---
Physician Documentation [facility] Name: Ara Plunkett Age: 35 yrs Sex: Female : 1985 Arrival Date: 04/07/2020 Time: 22:24 Bed 18 Private MD: ZACHARY Physician Rashad Melgoza HPI: 04/07 22:33 This 35 yrs old Female presents to ER via Unassigned with complaints of Flank cp Pain. 22:33 The patient complains of pain in the left flank and left side of abdomen. cp 22:33 The pain radiates to the left low back. Onset: The symptoms/episode began/occurred 2 cp day(s) ago. 22:33 Associated signs and symptoms: Pertinent positives: dysuria, urinary frequency, nausea, cp vomiting, Pertinent negatives: diarrhea, pain radiating to the lower extremities. 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 - Social history:: Smoking status: Patient denies any tobacco usage or history of. Smoking status: Patient reports the use of cigarette tobacco products, smokes one-half pack cigarettes per day, Patient/guardian denies using alcohol, street drugs. ROS: 22:40 Constitutional: Negative for body aches, chills, fever, poor PO intake. cp 22:40 Eyes: Negative for injury, pain, redness, and discharge. cp 22:40 ENT: Negative for drainage from ear(s), ear pain, sore throat. 22:40 Respiratory: Negative for cough, shortness of breath, wheezing. 22:40 Abdomen/GI: Positive for abdominal pain, nausea and vomiting, Negative for diarrhea, constipation, active vomiting. 22:40 Back: Positive for flank pain, on the left, Negative for injury or acute deformity. 22:40 : Positive for urinary symptoms, urinary frequency. 22:40 Neuro: Negative for dizziness, headache, weakness. 22:40 All other systems are negative. Exam: 22:45 Constitutional: The patient appears in no acute distress, alert, awake, non-toxic, well cp developed, well nourished. 22:45 Head/Face: Normocephalic, atraumatic. cp 22:45 Eyes: Periorbital structures: appear normal, Conjunctiva: normal, no exudate, no injection, Sclera: no appreciated abnormality, Lids and lashes: appear normal, bilaterally. 22:45 ENT: External ear(s): are unremarkable, Nose: is normal, Mouth: Lips: moist, Oral mucosa: pink and intact, moist, Posterior pharynx: is normal, airway is patent, no erythema, no exudate. 22:45 Chest/axilla: Inspection: normal, Palpation: is normal, no crepitus, no tenderness. 22:45 Cardiovascular: Rate: normal, Rhythm: regular. 22:45 Respiratory: the patient does not display signs of respiratory distress, Respirations: normal, no use of accessory muscles, no retractions, labored breathing, is not present, Breath sounds: are clear throughout, no decreased breath sounds. 22:45 Abdomen/GI: Inspection: abdomen appears normal, Bowel sounds: active, all quadrants, Palpation: soft, in all quadrants, moderate abdominal tenderness, in the anterior aspect of left lateral abdomen, left upper quadrant and left lower quadrant, rebound tenderness, is not appreciated, involuntary guarding, is not appreciated. 22:45 Skin: no rash present. Vital Signs: 22:34 BP 128 / 72; Pulse 95; Resp 17; Temp 98.2; Pulse Ox 98% ; Pain 10/10; ll1 16 00:00 BP 134 / 81; Pulse 85; Resp 16; Pulse Ox 99% ; Pain 8/10; ll1 02:00 BP 136 / 77; Pulse 82; Resp 16; Temp 98.1; Pulse Ox 100% on R/A; sg MDM: 04/07 22:28 Patient medically screened. cp 23:00 Differential diagnosis: nephrolithiasis, pyelonephritis, UTI, diverticulitis. cp 04/08 01:00 Data reviewed: vital signs, nurses notes, lab test result(s), radiologic studies, CT cp scan, and as a result, I will discharge patient. 01:00 Counseling: I had a detailed discussion with the patient and/or guardian regarding: the cp historical points, exam findings, and any diagnostic results supporting the discharge/admit diagnosis, lab results, radiology results, to return to the emergency department if symptoms worsen or persist or if there are any questions or concerns that arise at home. Response to treatment: the patient's symptoms have markedly improved after treatment, and as a result, I will discharge patient. 04/07 22:35 Order name: Basic Metabolic Panel; Complete Time: 23:21 04/08 00:51 Interpretation: Normal except: K 3.4; GLUC 395; BUN 4; GFR 66. 04/07 22:35 Order name: CBC with Diff; Complete Time: 23:21 04/08 00:52 Interpretation: Normal except: WBC 11.3; PLT 449. 04/07 22:35 Order name: Hepatic Function; Complete Time: 23:21 04/07 22:35 Order name: Lipase; Complete Time: 23:21 04/07 22:35 Order name: Urine Microscopic Only; Complete Time: 00:50 04/08 00:50 Interpretation: Normal except: UWBC 5-10; URBC 5-10; UBACT 20-50; SQEPI 5-10; BUD cp PRESENT. 04/07 22:49 Order name: Urine Dipstick--Ancillary (enter results); Complete Time: 23:21 [facility] 04/07 22:49 Order name: Urine --Ancillary (enter results); Complete Time: 23:21 [facility] 04/07 23:24 Order name: CT Stone Protocol 04/07 23:33 Order name: Urine Culture [facility] 04/08 01:10 Order name: Glucose, Ancillary Testing; Complete Time: 01:55 [facility] 04/07 22:35 Order name: IV Saline Lock; Complete Time: 22:50 04/07 22:35 Order name: Labs collected and sent; Complete Time: 22:50 04/07 22:35 Order name: Urine Dipstick-Ancillary (obtain specimen); Complete Time: 22:47 04/07 22:35 Order name: Urine Test (obtain specimen); Complete Time: 22:47 04/08 00:51 Order name: Accucheck Blood Glucose; Complete Time: 01:03 cp Administered Medications: 04/07 22:58 Drug: Zofran (Ondansetron) 4 mg Route: IVP; Site: right antecubital; ll1 23:49 Follow up: Response: No adverse reaction ll1 22:59 Drug: morphine 2 mg Route: IVP; Site: right antecubital; ll1 23:50 Follow up: Response: No adverse reaction; RASS: Alert and Calm (0) 1 23:49 Drug: Potassium Chloride 10 mEq Route: IV; Rate: calculated rate; Site: right ll1 antecubital; 04/08 01:30 Follow up: Response: No adverse reaction; IV Status: Completed infusion sg 04/07 23:49 Drug: NS 0.9% 1000 ml Route: IV; Rate: 1 bolus; Site: right antecubital; 1 04/08 00:15 Follow up: Response: No adverse reaction; IV Status: Completed infusion; IV Intake: sg 1000ml 00:00 Drug: morphine 2 mg {Note: RASS 0.} Route: IVP; Site: right antecubital; 1 01:15 Drug: Rocephin 1 grams Route: IV; Rate: calculated rate; Site: right antecubital; sg 01:28 Follow up: Response: No adverse reaction; IV Status: Completed infusion; IV Intake: 20mlsg 01:15 Drug: DiFLUcan 200 mg Route: PO; sg 01:15 Drug: NS 0.9% 1000 ml Route: IV; Rate: 1 bolus; Site: right antecubital; sg 01:23 Drug: Potassium Effervescent Tablet 25 mEq Route: PO; sg 02:10 Drug: [place] 10 mg-325 mg 1 tabs Route: PO; sg Disposition: 09:10 Co-signature as Attending Physician, Rashad Melgoza MD I agree with the assessment and bobbi plan of care. Disposition: 04/08/20 01:00 Discharged to Home. Impression: Urinary tract infection, site not specified, Diabetes mellitus due to underlying condition with hyperglycemia. - Condition is Stable. - Discharge Instructions: Urinary Tract Infection, Adult, Blood Glucose Monitoring, Adult, Diabetes Mellitus and Food. - Prescriptions for Ibuprofen 800 mg Oral Tablet - take 1 tablet by ORAL route every 8 hours As needed take with food; 30 tablet. Bactrim DS 800- 160 mg Oral Tablet - take 1 tablet by ORAL route every 12 hours for 7 days; 14 tablet. Zofran 4 mg Oral Tablet - take 1 tablet by ORAL route every 12 hours As needed; 20 tablet. - Medication Reconciliation Form, Thank You Letter, Antibiotic Education, Prescription Opioid Use form. - Follow up: Private Physician; When: 2 - 3 days; Reason: Recheck today's complaints. - Problem is new. - Symptoms have improved. Signatures: Dispatcher [employer] EDFidencio Robins RN RN Rashad Lopez MD MD cha Page, Corey, PA PA cp Lewis, Lynsay RN RN ll1 Corrections: (The following items were deleted from the chart) 02:39 01:00 04/08/2020 01:00 Discharged to Home. Impression: Urinary tract infection, site sg not specified; Diabetes mellitus due to underlying condition with hyperglycemia. Condition is Stable. Forms are Medication Reconciliation Form, Thank You Letter, Antibiotic Education, Prescription Opioid Use. Follow up: Private Physician; When: 2 - 3 days; Reason: Recheck today's complaints. Problem is new. Symptoms have improved. cp
[2020-04-08] MEDS ORDERED: CEFTRIAXONE/SWI 1gm 1 GM/10 ML SYR ONE (01:15)
[2020-04-08] MEDS ORDERED: FLUCONAZOLE 100 MG TAB ONE (01:15)
[2020-04-08] MEDS ORDERED: POTASSIUM 25 MEQ EFFERV TAB ONE ×2 (01:15→02:15)
[2020-04-08] MEDS ORDERED: NA CHLORIDE 0.9% 1,000 ML ONE (01:16)
[2020-04-08] MEDS ORDERED: HYDROCODONE/APAP 10/325 TAB ONE (02:03)
[2020-04-08 03:22] VITALS: BP 136/77; TEMP 98.1; O2SAT 100
--- NOTE | 2020-04-08 19:36 | RAD REPORT ---
EXAM DESCRIPTION: CT - Stone Protocol - 04/08/2020 5:36 am CLINICAL HISTORY: Left flank pain COMPARISON: 12/03/2019. TECHNIQUE: CT ABDOMEN PELVIS WITHOUT IV CONTRAST on 04/07/2020 11:24 PM CDT This exam was performed according to our departmental dose-optimization program, which includes autom ated exposure control, adjustment of the mA and/or kV according to patient size and/or use of iterati ve reconstruction technique. FINDINGS: Lower lungs are clear. Abdomen: The liver is normal in appearance. There is no biliary dilatation. Gallbladder contains pablo ral gas containing stones. The pancreas and spleen are normal in appearance. The adrenal glands and k idneys are unremarkable. Abdominal aorta is normal in course and caliber without aneurysm. There is no free air. There is no r etroperitoneal adenopathy. Pelvis: There is no bowel obstruction. Urinary bladder is unremarkable. There is no free fluid. Uteru s is normal in size there is trace free pelvic fluid. Appendix is normal. Skeleton: There are no acute osseous findings. No suspicious bony lesions. IMPRESSION: No acute inflammatory process. No renal or ureteral calculi. Electronically signed by: Christopher Horn MD 04/08/2020 12:10 AM CDT Due to temporary technical issues with the PACS/Fluency reporting system, reports are being signed by the in house radiologist as a courtesy to ensure prompt reporting. The interpreting radiologist is f ully responsible for the content of the report.
== END 2020-04-08 02:39 | disposition home or self-care (01) ==
LOC: ER 22:05
DX: N39.0 Urinary tract infection, site not specified (principal); E11.65 Type 2 diabetes mellitus with hyperglycemia; Z88.8 Allergy status to other drugs, medicaments and biological substances
CPT/HCPCS: 36415; 74176; 76377; 80048; 80076; 81003; 81015; 81025; 82947; 83690; 85025; 87086; 87088; 96365; 96366; 96375; 99284; J0696; J2270; J2405; J7030

== ENCOUNTER 2020-05-16 01:45 | Emergency (ER) | payer SELFPAY ==
--- NOTE | 2020-05-16 02:31 | EDPHYS ---
Physician Documentation [facility] Name: Ara Plunkett Age: 35 yrs Sex: Female : 1985 Arrival Date: 05/16/2020 Time: 01:47 Bed 5 Private MD: ED Physician Papito Castro HPI: 05/16 02:49 This 35 yrs old Female presents to ER via Ambulatory with complaints of snw Breathing Difficulty. 02:49 The patient has shortness of breath at rest. Onset: The symptoms/episode began/occurred snw s/p taking Bactrim and Naproxen together. Duration: The symptoms are continuous. Associated signs and symptoms: Pertinent positives: itching, chest tightness. Severity of symptoms: At their worst the symptoms were mild. It is unknown whether or not the patient has had similar symptoms in the past. The patient has been recently seen by a physician: with different complaint(s), and apparently was diagnosed with dental abscess, given Naproxen and Bactrim. 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 - Social history:: Smoking status: Patient reports the use of cigarette tobacco products, smokes one pack cigarettes per day. ROS: 02:47 Constitutional: Negative for fever, chills, and weight loss, Eyes: Negative for injury, snw pain, redness, and discharge. 02:47 Neck: Negative for injury, pain, and swelling. 02:47 Respiratory: Negative for shortness of breath, cough, wheezing, and pleuritic chest pain, Abdomen/GI: Negative for abdominal pain, nausea, vomiting, diarrhea, and constipation, Back: Negative for injury and pain, : Negative for injury, bleeding, discharge, and swelling, MS/Extremity: Negative for injury and deformity, Neuro: Negative for headache, weakness, numbness, tingling, and seizure. 02:47 ENT: Positive for Teeth pain 02:47 Cardiovascular: Positive for chest pain. 02:47 Skin: Positive for itching. Exam: 02:44 Constitutional: This is a well developed, well nourished patient who is awake, alert, snw and in no acute distress. Head/Face: Normocephalic, atraumatic. Eyes: Pupils equal round and reactive to light, extra-ocular motions intact. Lids and lashes normal. Conjunctiva and sclera are non-icteric and not injected. Cornea within normal limits. Periorbital areas with no swelling, redness, or edema. Neck: Trachea midline, no thyromegaly or masses palpated, and no cervical lymphadenopathy. Supple, full range of motion without nuchal rigidity, or vertebral point tenderness. No Meningismus. Chest/axilla: Normal chest wall appearance and motion. Nontender with no deformity. No lesions are appreciated. Cardiovascular: Mildly tachycardic rate and rhythm with a normal S1 and S2. No gallops, murmurs, or rubs. Normal PMI, no JVD. No pulse deficits. Respiratory: Lungs have equal breath sounds bilaterally, clear to auscultation and percussion. No rales, rhonchi or wheezes noted. No increased work of breathing, no retractions or nasal flaring. Abdomen/GI: Soft, non-tender, with normal bowel sounds. No distension or tympany. No guarding or rebound. No evidence of tenderness throughout. Back: No spinal tenderness. No costovertebral tenderness. Full range of motion. Skin: Warm, dry with normal turgor. Normal color with no rashes, no lesions, and no evidence of cellulitis. MS/ Extremity: Pulses equal, no cyanosis. Neurovascular intact. Full, normal range of motion. Neuro: Awake and alert, GCS 15, oriented to person, place, time, and situation. Cranial nerves II-XII grossly intact. Motor strength 5/5 in all extremities. Sensory grossly intact. Cerebellar exam normal. Normal gait. Psych: Awake, alert, with orientation to person, place and time. Behavior, mood, and affect are within normal limits. 02:44 ENT: External ear(s): are unremarkable, Nose: is normal, Mouth: is normal, Posterior pharynx: is normal, Dental exam: dental caries, that is moderate, specifically in the diffusely, teeth decayed to gumline, Voice: is normal. Vital Signs: 02:15 BP 134 / 76; Pulse 94; Resp 17 S; Temp 98.4(TE); Pulse Ox 100% on R/A; Weight 72.57 kg jd3 (R); Height 5 ft. 2 in. (157.48 cm) (R); Pain 7/10; 02:15 Body Mass Index 29.26 (72.57 kg, 157.48 cm) jd3 MDM: 02:30 Patient medically screened. snw Administered Medications: 02:31 Drug: Atarax 25 mg Route: PO; jd3 02:45 Follow up: Response: Medication administered at discharge. jd3 02:31 Drug: Pepcid 20 mg Route: PO; jd3 02:45 Follow up: Response: Medication administered at discharge. jd3 Disposition: 06:43 Co-signature as Attending Physician, Papito Castro MD. 7 Disposition: 05/16/20 02:30 Discharged to Home. Impression: Allergy status to drugs, medicaments and biological substances. - Condition is Stable. - Discharge Instructions: Allergies, Adult, Dental Abscess, Drug Allergy. - Prescriptions for Clindamycin HCl 150 mg Oral Capsule - take 1 capsule by ORAL route every 6 hours for 10 days; 40 capsule. Zyrtec 10 mg Oral Tablet - take 1 tablet by ORAL route once daily As needed; 20 tablet. Pepcid 20 mg Oral Tablet - take 1 tablet by ORAL route once daily; 20 tablet. - Medication Reconciliation Form, Thank You Letter, Antibiotic Education, Prescription Opioid Use form. - Follow up: Emergency Department; When: As needed; Reason: Worsening of condition. Follow up: Private Physician; When: 1 - 2 days; Reason: Recheck today's complaints, Continuance of care, Re-evaluation by your physician. Signatures: Itzel Russo, DAVIDE-C VETERINARY PATHOLOGIST-Tannerw Dillon Wilde RN RN jd3 Holmes, Maurice, MD MD [facility] Corrections: (The following items were deleted from the chart) 02:45 02:30 05/16/2020 02:30 Discharged to Home. Impression: Allergy status to drugs, jd3 medicaments and biological substances. Condition is Stable. Forms are Medication Reconciliation Form, Thank You Letter, Antibiotic Education, Prescription Opioid Use. Follow up: Emergency Department; When: As needed; Reason: Worsening of condition. Follow up: Private Physician; When: 1 - 2 days; Reason: Recheck today's complaints, Continuance of care, Re-evaluation by your physician. snw 02:49 02:44 Constitutional: This is a well developed, well nourished patient who is awake, snw alert, and in no acute distress. Head/Face: Normocephalic, atraumatic. Eyes: Pupils equal round and reactive to light, extra-ocular motions intact. Lids and lashes normal. Conjunctiva and sclera are non-icteric and not injected. Cornea within normal limits. Periorbital areas with no swelling, redness, or edema. Neck: Trachea midline, no thyromegaly or masses palpated, and no cervical lymphadenopathy. Supple, full range of motion without nuchal rigidity, or vertebral point tenderness. No Meningismus. Chest/axilla: Normal chest wall appearance and motion. Nontender with no deformity. No lesions are appreciated. Respiratory: Lungs have equal breath sounds bilaterally, clear to auscultation and percussion. No rales, rhonchi or wheezes noted. No increased work of breathing, no retractions or nasal flaring. Abdomen/GI: Soft, non-tender, with normal bowel sounds. No distension or tympany. No guarding or rebound. No evidence of tenderness throughout. Back: No spinal tenderness. No costovertebral tenderness. Full range of motion. Skin: Warm, dry with normal turgor. Normal color with no rashes, no lesions, and no evidence of cellulitis. MS/ Extremity: Pulses equal, no cyanosis. Neurovascular intact. Full, normal range of motion. Neuro: Awake and alert, GCS 15, oriented to person, place, time, and situation. Cranial nerves II-XII grossly intact. Motor strength 5/5 in all extremities. Sensory grossly intact. Cerebellar exam normal. Normal gait. Psych: Awake, alert, with orientation to person, place and time. Behavior, mood, and affect are within normal limits. snw
--- NOTE | 2020-05-16 02:31 | ER ---
Nurse's Notes [facility] Name: Ara Plunkett Age: 35 yrs Sex: Female : 1985 Arrival Date: 05/16/2020 Time: 01:47 Bed 5 Private MD: Diagnosis: Allergy status to drugs, medicaments and biological substances Presentation: 05/16 02:10 Chief complaint: Patient states: "I have an abcessed tooth and I took Bactrim with jd3 Naproxin and now I am having an allergic reaction. I have taken the 2 medication together before with no reaction, but now I am itching everywhere and having chest pressure/pain and throat pain. I took one 25 mg Benadryl and it help for a minute, but then it stopped and it got worse.". Coronavirus screen: Proceed with normal triage. Ebola Screen: Patient negative for fever greater than or equal to 101.5 degrees Fahrenheit, and additional compatible Ebola Virus Disease symptoms. Initial Sepsis Screen: Does the patient meet any 2 criteria? No. Patient's initial sepsis screen is negative. Does the patient have a suspected source of infection? No. Patient's initial sepsis screen is negative. Risk Assessment: Do you want to hurt yourself or someone else? Patient reports no desire to harm self or others. Onset of symptoms was May 16, 2020. 02:10 Method Of Arrival: Ambulatory jd3 02:10 Acuity: CHARISSA 3 jd3 Triage Assessment: 02:20 Respiratory: Onset: The symptoms/episode began/occurred today, the patient has mild jd3 shortness of breath. 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 - Social history:: Smoking status: Patient reports the use of cigarette tobacco products, smokes one pack cigarettes per day. Screenin:20 Abuse screen: Denies threats or abuse. Nutritional screening: No deficits noted. jd3 Tuberculosis screening: No symptoms or risk factors identified. Fall Risk Ambulatory Aid- None/Bed Rest/Nurse Assist (0 pts). Gait- Normal/Bed Rest/Wheelchair (0 pts) Mental Status- Oriented to own ability (0 pts). Total Hannah Fall Scale indicates No Risk (0-24 pts). Assessment: 02:17 General: Appears in no apparent distress. uncomfortable, Behavior is calm, cooperative, jd3 appropriate for age. Pain: Complains of pain in chest Quality of pain is described as pressure. Neuro: Level of Consciousness is awake, alert, obeys commands, Oriented to person, place, time, situation. Cardiovascular: Heart tones S1 S2 present Capillary refill < 3 seconds Patient's skin is warm and dry. Respiratory: Reports shortness of breath at rest Airway is patent Respiratory effort is unlabored, labored, Respiratory pattern is regular, symmetrical, Breath sounds are clear bilaterally. Denies cough. GI: Abdomen is round non-distended, Abd is soft and non tender X 4 quads. Reports nausea, vomiting. : No signs and/or symptoms were reported regarding the genitourinary system. EENT: No signs and/or symptoms were reported regarding the EENT system. Derm: Skin is intact, Skin is dry, Skin is normal, Skin temperature is warm Reports itching. Musculoskeletal: Circulation, motion, and sensation intact. Range of motion: intact in all extremities. 02:45 Reassessment: Patient appears in no apparent distress at this time. Patient and/or jd3 family updated on plan of care and expected duration. Pain level reassessed. Patient is alert, oriented x 3, equal unlabored respirations, skin warm/dry/pink. even and steady gait upon discharge. Patient states feeling better. Vital Signs: 02:15 BP 134 / 76; Pulse 94; Resp 17 S; Temp 98.4(TE); Pulse Ox 100% on R/A; Weight 72.57 kg jd3 (R); Height 5 ft. 2 in. (157.48 cm) (R); Pain 7/10; 02:15 Body Mass Index 29.26 (72.57 kg, 157.48 cm) jd3 ED Course: 01:47 Patient arrived in ED. ag3 02:10 Dillon Wilde RN is Primary Nurse. jd3 02:14 Triage completed. jd3 02:16 Arm band placed on. jd3 02:20 Patient has correct armband on for positive identification. Bed in low position. Call jd3 light in reach. Side rails up X 1. Adult w/ patient. Pulse ox on. NIBP on. 02:34 Papito Castro MD is Attending Physician. snw 02:34 Itzel Russo F[facility]-C [facility] snw 02:44 No provider procedures requiring assistance completed. Patient did not have IV access jd3 during this emergency room visit. Administered Medications: 02:31 Drug: Atarax 25 mg Route: PO; jd3 02:45 Follow up: Response: Medication administered at discharge. jd3 02:31 Drug: Pepcid 20 mg Route: PO; jd3 02:45 Follow up: Response: Medication administered at discharge. jd3 Outcome: 02:30 Discharge ordered by . snw 02:44 Discharged to home ambulatory, with family. jd3 02:44 Condition: stable 02:44 Discharge instructions given to patient, family, Instructed on discharge instructions, follow up and referral plans. medication usage, Demonstrated understanding of instructions, follow-up care, medications, Prescriptions given X 3. 02:45 Patient left the ED. jd3 Signatures: Itzel Russo FNP-C MANUFACTURING TECHNICIAN-Csnw Dillon Wilde RN RN Sandee Prado3
--- OUTSIDE RECORDS SUMMARY | 2020-05-16 02:35 | XMS REPORT | Clinical Summary ---
:1985 Author Organization [facility] Address [address] [place] [address] Care Team Providers Name Role Phone Pcp Primary Care Provider Unavailable Allergies No Known Allergies Medications Medication Sig Dispensed Refills Start Date End Date Status metFORMIN Take 1 tablet 30 tablet 11 [...] Not on file Results Not on fileafter 05/16/2019 Advance Directives For more information, please contact:[facility]Want[place] [address] [place], [place] [phone] Code Status Date Activated Date Inactivated Comments Full Code 04/04/2018 5:20 PM 04/09/2018 3:29 PM This code status was determined by: Patient
[2020-05-16] MEDS ORDERED: hydrOXYzine HCL 25 MG TAB ONE (02:36)
[2020-05-16] MEDS ORDERED: FAMOTIDINE 20 MG TAB ONE (02:37)
[2020-05-16 03:14] VITALS: BP 134/76; TEMP 98.4; O2SAT 100
== END 2020-05-16 02:45 | disposition home or self-care (01) ==
LOC: ER 01:45
DX: L29.9 Pruritus, unspecified (principal); Z91.09 Other allergy status, other than to drugs and biological substances; F17.210 Nicotine dependence, cigarettes, uncomplicated; E11.9 Type 2 diabetes mellitus without complications; Z88.8 Allergy status to other drugs, medicaments and biological substances
CPT/HCPCS: 99283

== ENCOUNTER 2020-05-22 23:40 | Emergency (ER) | payer SELFPAY ==
--- OUTSIDE RECORDS SUMMARY | 2020-05-22 23:42 | XMS REPORT | Clinical Summary ---
:1985 Author Organization [facility] Address [address] [place] [address] Care Team Providers Name Role Phone Pcp [...] Not on file Results Not on fileafter 05/22/2019 Advance Directives For more information, please contact:[facility] [place] [address] [facility] [address] [place], [place] [phone] Code Status Date Activated Date Inactivated Comments Full Code 04/04/2018 5:20 PM 04/09/2018 3:29 PM This code status was determined by: Patient
[2020-05-23 00:27] LABS: Protime INR 0.92
[2020-05-23 00:29] LABS: Absolute Lymphocytes (CBC) 2.9 K/uL (0.7-4.9); Basophils % 1.2 % (0-1.3); Hematocrit 41.2 % (36.0-45.0); Lymphocytes % 30.7 % (15.3-44.8); MPV 8.1 fL (7.6-11.3); RBC Red Blood Cell Count 4.64 M/uL (3.86-4.86)
[2020-05-23 00:40] LABS: ALT/SGPT 16 U/L (12-78); AST/SGOT 20 U/L (15-37); Albumin 3.4 g/dL (3.4-5.0); Alkaline Phosphatase 112 U/L (45-117); BUN Blood Urea Nitrogen 7 mg/dL (7-18); Bicarbonate 22 mmol/L (21-32); Bilirubin Direct < 0.1 mg/dL (0-0.2); Bilirubin Total 0.3 mg/dL (0.2-1.0); Glucose Level 366 mg/dL (74-106); Lipase 213 U/L (73-393); NT PRO-BNP 18 pg/mL (<125); Potassium 3.6 mmol/L (3.5-5.1); Protein, Total 7.6 g/dL (6.4-8.2); Sodium Level 138 mmol/L (136-145); Troponin (Emerg Dept Use Only) < 0.02 ng/mL (0.0-0.045)
[2020-05-23] MEDS ORDERED: FENTANYL CITR 100 MCG/2 ML ONE (01:56)
[2020-05-23] MEDS ORDERED: ONDANSETRON 4 MG/2 ML VIAL ONE (02:14)
--- NOTE | 2020-05-23 03:42 | EDPHYS ---
Physician Documentation [facility] Name: Ara Plunkett Age: 35 yrs Sex: Female : 1985 Arrival Date: 05/22/2020 Time: 23:41 Bed 7 Private MD: ED Physician Papito Castro HPI: 05/23 00:29 This 35 yrs old Female presents to ER via Ambulatory with complaints of jr8 Abdominal pain. 00:29 The patient presents with abdominal pain in the epigastric area, in the right upper jr8 quadrant. Onset: The symptoms/episode began/occurred gradually, 5 day(s) ago, and became worse today. The symptoms radiate to right back. Associated signs and symptoms: Pertinent positives: chest pain. The symptoms are described as stabbing. Modifying factors: The symptoms are alleviated by nothing, the symptoms are aggravated by nothing. Severity of pain: At its worst the pain was moderate in the emergency department the pain is unchanged. The patient has not experienced similar symptoms in the past. The patient has not recently seen a physician. 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 - Social history:: Smoking status: Patient reports the use of cigarette tobacco products, smokes one-half pack cigarettes per day, Patient/guardian denies using alcohol, street drugs. ROS: 05/23 00:29 Eyes: Negative for injury, pain, redness, and discharge, ENT: Negative for injury, jr8 pain, and discharge, Neck: Negative for injury, pain, and swelling, Respiratory: Negative for shortness of breath, cough, wheezing, and pleuritic chest pain, Back: Negative for injury and pain, MS/Extremity: Negative for injury and deformity, Skin: Negative for injury, rash, and discoloration, Neuro: Negative for headache, weakness, numbness, tingling, and seizure. Cardiovascular: Positive for chest pain, Negative for edema, orthopnea, palpitations, paroxysmal nocturnal dyspnea. Abdomen/GI: Positive for abdominal pain, Negative for nausea, vomiting, and diarrhea, abdominal cramps, abdominal distension. Exam: 00:29 Eyes: Pupils equal round and reactive to light, extra-ocular motions intact. Lids and jr8 lashes normal. Conjunctiva and sclera are non-icteric and not injected. Cornea within normal limits. Periorbital areas with no swelling, redness, or edema. ENT: Nares patent. No nasal discharge, no septal abnormalities noted. Tympanic membranes are normal and external auditory canals are clear. Oropharynx with no redness, swelling, or masses, exudates, or evidence of obstruction, uvula midline. Mucous membranes moist. Neck: Trachea midline, no thyromegaly or masses palpated, and no cervical lymphadenopathy. Supple, full range of motion without nuchal rigidity, or vertebral point tenderness. No Meningismus. Chest/axilla: Normal chest wall appearance and motion. Nontender with no deformity. No lesions are appreciated. Cardiovascular: Regular rate and rhythm with a normal S1 and S2. No gallops, murmurs, or rubs. Normal PMI, no JVD. No pulse deficits. Respiratory: Lungs have equal breath sounds bilaterally, clear to auscultation and percussion. No rales, rhonchi or wheezes noted. No increased work of breathing, no retractions or nasal flaring. Back: No spinal tenderness. No costovertebral tenderness. Full range of motion. Skin: Warm, dry with normal turgor. Normal color with no rashes, no lesions, and no evidence of cellulitis. MS/ Extremity: Pulses equal, no cyanosis. Neurovascular intact. Full, normal range of motion. Neuro: Awake and alert, GCS 15, oriented to person, place, time, and situation. Cranial nerves II-XII grossly intact. Motor strength 5/5 in all extremities. Sensory grossly intact. Cerebellar exam normal. Normal gait. 00:29 Abdomen/GI: Inspection: obese Bowel sounds: active, all quadrants, Palpation: soft, in all quadrants, mild abdominal tenderness, in the epigastric area, moderate abdominal tenderness, in the right upper quadrant, mass, is not appreciated, rebound tenderness, is not appreciated, voluntary guarding, is not appreciated, involuntary guarding, is not appreciated, no appreciated organomegaly, Indicators: McBurney's point is not tender, Ritchie's sign is positive, Rovsing's sign is negative, Liver: tenderness, is not appreciated. Vital Signs: 00:02 BP 135 / 82; Pulse 68; Resp 18; Temp 97.6; Pulse Ox 98% ; Weight 72.57 kg; Height 5 ft. ao 3 in. (160.02 cm); 01:18 BP 141 / 94; Pulse 88; Resp 16; Temp 98.4(O); Pulse Ox 98% ; Pain 7/10; ao 02:01 BP 133 / 89; Pulse 91; Resp 16; Pulse Ox 97% ; ao 02:10 BP 132 / 87; Pulse 85; Resp 16; Pulse Ox 16% ; ao 04:00 BP 134 / 86; Pulse 82; Resp 18; Temp 98.3; Pulse Ox 98% ; ao 00:02 Body Mass Index 28.34 (72.57 kg, 160.02 cm) ao MDM: 05/22 23:53 Patient medically screened. [facility] 05/23 03:41 Data reviewed: vital signs, nurses notes, lab test result(s), EKG, radiologic studies, [facility] CT scan. Data interpreted: Pulse oximetry: on room air is 97 %. Interpretation: normal. Counseling: I had a detailed discussion with the patient and/or guardian regarding: the historical points, exam findings, and any diagnostic results supporting the discharge/admit diagnosis, lab results, radiology results, the need for outpatient follow up, a general surgeon, to return to the emergency department if symptoms worsen or persist or if there are any questions or concerns that arise at home. Response to treatment: the patient's symptoms have markedly improved after treatment. 05/22 23:55 Order name: Basic Metabolic Panel; Complete Time: 01:05/22 23:55 Order name: CBC with Diff; Complete Time: 00:45 05/22 23:55 Order name: LFT's; Complete Time: :05/22 23:55 Order name: Magnesium; Complete Time: :05/22 23:55 Order name: NT PRO-BNP; Complete Time: 01:05/22 23:55 Order name: PT-INR; Complete Time: 00:45 05/22 23:55 Order name: Troponin (emerg Dept Use Only); Complete Time: 01:05/22 23:55 Order name: XRAY Chest (1 view) 05/22 23:55 Order name: COVID-19 [facility] 05/23 00:22 Order name: Lipase; Complete Time: 01:00 EDMS 05/23 01:24 Order name: CT Abd/Pelvis - IV Contrast Only 05/23 02:32 Order name: Urine --Ancillary (enter results); Complete Time: 03:49 tt3 05/23 02:32 Order name: Urine Dipstick--Ancillary (enter results); Complete Time: 03:49 tt3 05/22 23:55 Order name: EKG; Complete Time: 23:56 05/22 23:55 Order name: Cardiac monitoring; Complete Time: 00:16 05/22 23:55 Order name: EKG - Nurse/Tech; Complete Time: 00:03 05/22 23:55 Order name: IV Saline Lock; Complete Time: 00:17 05/22 23:55 Order name: Labs collected and sent; Complete Time: 00:03 05/22 23:55 Order name: O2 Per Protocol; Complete Time: 00:03 05/22 23:55 Order name: O2 Sat Monitoring; Complete Time: 00:03 05/23 02:24 Order name: Urine Test (obtain specimen); Complete Time: 02:47 05/23 02:24 Order name: Urine Dipstick-Ancillary (obtain specimen); Complete Time: 02:47 Administered Medications: 02:01 Drug: fentaNYL (PF) 50 mcg Route: IVP; Site: left antecubital; ao 02:48 Follow up: Response: No adverse reaction; RASS: Alert and Calm (0) ao Disposition: 05:27 Co-signature as Attending Physician, Papito Castro MD. [email or web address] Disposition: 05/23/20 03:42 Discharged to Home. Impression: Cholelithiasis, Upper abdominal pain, unspecified. - Condition is Stable. - Discharge Instructions: Abdominal Pain, Adult, Cholelithiasis. - Prescriptions for Tylenol- Codeine #3 300-30 mg Oral Tablet - take 2 tablets by ORAL route every 6 hours As needed; 20 tablet. Zofran 4 mg Oral Tablet - take 1 tablet by ORAL route every 12 hours As needed; 20 tablet. - Medication Reconciliation Form, Thank You Letter, Antibiotic Education, Prescription Opioid Use form. - Follow up: Alejandro Nguyễn MD; When: 2 - 3 days; Reason: Recheck today's complaints, Continuance of care, Re-evaluation by your physician. - Problem is new. - Symptoms have improved. Signatures: Dispatcher [employer] [facility] Umair Dorsey PA PA jr8 Kailash Herrera, VÍCTOR RN ao Papito Castro MD MD [email or web address] Corrections: (The following items were deleted from the chart) 00:21 00:17 LIPASE+C.LAB.BRZ ordered. [facility] EDOR 04:01 03:42 05/23/2020 03:42 Discharged to Home. Impression: Cholelithiasis; Upper abdominal ao pain, unspecified. Condition is Stable. Forms are Medication Reconciliation Form, Thank You Letter, Antibiotic Education, Prescription Opioid Use. Follow up: Alejandro Nguyễn; When: 2 - 3 days; Reason: Recheck today's complaints, Continuance of care, Re-evaluation by your physician. Problem is new. Symptoms have improved. jr8
--- NOTE | 2020-05-23 03:42 | ER ---
Nurse's Notes [facility] Name: Ara Plunkett Age: 35 yrs Sex: Female : 1985 Arrival Date: 05/22/2020 Time: 23:41 Bed 7 Private MD: Diagnosis: Cholelithiasis;Upper abdominal pain, unspecified Presentation: 05/22 23:55 Chief complaint: Patient states: CP for 3 day with SOB. Pt also CO N/D. Patient denies ao fever. Coronavirus screen: Patient reports a cough. Patient reports shortness of breath or difficulty breathing. Patient reports a measured and/or subjective temperature greater than 100.4F. Patient denies travel on a cruise ship or to a country the [facility] currently lists as an affected area. Patient denies contact with known and/or suspected case of COVID-19. Ebola Screen: Patient negative for fever greater than or equal to 101.5 degrees Fahrenheit, and additional compatible Ebola Virus Disease symptoms Patient denies exposure to infectious person. Initial Sepsis Screen: Does the patient meet any 2 criteria? No. Patient's initial sepsis screen is negative. Does the patient have a suspected source of infection? No. Patient's initial sepsis screen is negative. Risk Assessment: Do you want to hurt yourself or someone else? Patient reports no desire to harm self or others. Onset of symptoms is unknown. 23:55 Method Of Arrival: Ambulatory ao 23:55 Acuity: CHARISSA 3 ao SUB PRIOR: 05/23 03:59 LMP N/A - ao Historical: - Allergies: 05/22 23:58 Flagyl; ao 23:58 steroids; ao - Home Meds: 23:58 metformin 500 mg Oral tab 1 tab three times a day [Active]; ao - PMHx: 23:58 Diabetes - NIDDM; ao - Immunization history:: Adult Immunizations up to date. - Social history:: Smoking status: Patient reports the use of cigarette tobacco products, smokes one-half pack cigarettes per day, Patient/guardian denies using alcohol, street drugs. Screenin:57 Abuse screen: Denies threats or abuse. Denies injuries from another. Nutritional ao screening: No deficits noted. Tuberculosis screening: No symptoms or risk factors identified. Fall Risk None identified. Assessment: 23:58 General: Appears in no apparent distress. comfortable, Behavior is calm, cooperative, ao appropriate for age. Pain: Complains of pain in chest Pain does not radiate. Pain currently is 6 out of 10 on a pain scale. Quality of pain is described as pressure, Pain began 2-3 days ago. Neuro: Level of Consciousness is awake, alert, obeys commands, Oriented to person, place, time, situation, none Speech is normal, Facial symmetry appears normal, Pupils are PERRLA. Cardiovascular: Capillary refill < 3 seconds Patient's skin is warm and dry. Respiratory: Airway is patent Respiratory effort is even, unlabored, Respiratory pattern is regular, symmetrical. GI: Abdomen is non-distended. : No signs and/or symptoms were reported regarding the genitourinary system. EENT: No signs and/or symptoms were reported regarding the EENT system. Derm: No signs and/or symptoms reported regarding the dermatologic system. Musculoskeletal: Circulation, motion, and sensation intact. Range of motion: intact in all extremities. 05/23 01:16 Reassessment: Patient appears in no apparent distress at this time. No changes from ao previously documented assessment. Patient and/or family updated on plan of care and expected duration. Pain level reassessed. Provided with a cup of wather. 01:27 Reassessment: Spoke with patient's , Graham Mercado, given update on plan of care lp1 for patient with access code. 04:00 Reassessment: Patient appears in no apparent distress at this time. DC instructions ao given to patient. Patient agree with the POC and to follow up with PCP. Vital Signs: 00:02 BP 135 / 82; Pulse 68; Resp 18; Temp 97.6; Pulse Ox 98% ; Weight 72.57 kg; Height 5 ft. ao 3 in. (160.02 cm); 01:18 BP 141 / 94; Pulse 88; Resp 16; Temp 98.4(O); Pulse Ox 98% ; Pain 7/10; ao 02:01 BP 133 / 89; Pulse 91; Resp 16; Pulse Ox 97% ; ao 02:10 BP 132 / 87; Pulse 85; Resp 16; Pulse Ox 16% ; ao 04:00 BP 134 / 86; Pulse 82; Resp 18; Temp 98.3; Pulse Ox 98% ; ao 00:02 Body Mass Index 28.34 (72.57 kg, 160.02 cm) ao ED Course: 05/22 23:41 Patient arrived in ED. cl3 23:47 Umair Dorsey PA is PHCP. jr8 23:47 Papito Castro MD is Attending Physician. jr8 23:55 Kailash Herrera, RN is Primary Nurse. ao 23:56 Missed attempt(s): 20 gauge in left antecubital area. Bleeding controlled, band aid rv applied, catheter tip intact. Patient maintains SpO2 saturation greater than 95% on room air. 23:57 Triage completed. ao 23:58 Arm band placed on right wrist. Patient notified of wait time. ao 23:59 Patient has correct armband on for positive identification. quality assurance monitor final on. Pulse ao ox on. NIBP on. 05/23 00:13 XRAY Chest (1 view) In Process Unspecified. EDMS 02:00 Inserted saline lock: 20 gauge in right antecubital area, using aseptic technique. ao 02:58 CT Abd/Pelvis - IV Contrast Only In Process Unspecified. EDMS 03:42 Alejandro Nguyễn MD is Referral Physician. jr8 03:59 No provider procedures requiring assistance completed. IV discontinued, intact, ao bleeding controlled, No redness/swelling at site. Pressure dressing applied. Administered Medications: 02:01 Drug: fentaNYL (PF) 50 mcg Route: IVP; Site: left antecubital; ao 02:48 Follow up: Response: No adverse reaction; RASS: Alert and Calm (0) ao Outcome: 03:42 Discharge ordered by . jr8 03:59 Discharged to home ambulatory. ao 03:59 Condition: stable 03:59 Discharge instructions given to patient, Instructed on discharge instructions, follow up and referral plans. Demonstrated understanding of instructions, follow-up care, medications, Prescriptions given X 2. 04:01 Patient left the ED. ao Addendum: 05/24/2020 17:28 Addendum: Other attempted to contact pt regarding negative COVID-19. Left voice mail. dimitris m5 05/25/2020 12:30 Addendum: Other notified pt of negative COVID19 swab results. d m5 Signatures: Dispatcher [employer] EDMS Marilee Kim RN RN dm5 Nat Snider RN RN lp1 Umair Dorsey PA PA jr8 Kailash Herrera RN RN Gómez Spain, RN RN rv Kenneth, Alexander cl3
[2020-05-23 03:43] LABS: Urine Blood NEGATIVE (NEG); Urine Glucose 2+ (NEG); Urine Protein NEGATIVE (NEG)
[2020-05-23 04:27] VITALS: TEMP 98.4
[2020-05-23 05:26] VITALS: BP 132/87; O2SAT 16
--- NOTE | 2020-05-23 08:01 | RAD REPORT ---
EXAM DESCRIPTION: Laura Single View05/23/2020 12:13 am CLINICAL HISTORY: Chest pain COMPARISON: none FINDINGS: The lungs appear clear of acute infiltrate. The heart is normal size IMPRESSION: No acute abnormalities displayed
--- NOTE | 2020-05-23 10:35 | RAD REPORT ---
EXAM DESCRIPTION: CT - Abdomen Pelvis W Contrast - 05/23/2020 6:12 am CLINICAL HISTORY: ABD PAIN TECHNIQUE: Contiguous axial images obtained through the abdomen and pelvis following the uneventful administration of IV contrast. Coronal and sagittal reformatted images were provided. This exam was performed according to our departmental dose-optimization program, which includes autom ated exposure control, adjustment of the mA and/or kV according to patient size and/or use of iterati ve reconstruction technique. COMPARISON: 04/07/2020 FINDINGS: Lung bases: Clear Liver: Unremarkable Gallbladder and biliary system: Multiple gallstones. No gallbladder wall thickening or pericholecysti c fluid. Pancreas: Unremarkable Spleen: Unremarkable Adrenals: Unremarkable Kidneys: Normal renal cortical enhancement. No calculi. No hydronephrosis. Bowel: No obstruction. No appreciable mucosal thickening. Appendix: Normal caliber appendix. No findings to suggest acute appendicitis. Urinary bladder: Unremarkable Reproductive: Unremarkable as visualized Lymph nodes: No pathologically enlarged lymph nodes. Peritoneum: No focal fluid collection. No free air. Vessels: Minimal atherosclerotic disease. No abdominal aortic aneurysm. Abdominal wall: Unremarkable Bones: Unremarkable IMPRESSION: 1. No acute abnormality identified within the abdomen and pelvis. 2. Other findings as above. Electronically signed by: Jayson Overton MD 05/23/2020 3:13 AM CDT Due to temporary technical issues with the PACS/Fluency reporting system, reports are being signed by the in house radiologist without review as a courtesy to ensure prompt reporting. The interpreting r adiologist is fully responsible for the content of the report.
--- NOTE | 2020-05-24 07:19 | EKG ---
Test Date: 2020-05-22 Test Time: 23:51:52 [employer] Testing: RO MEASUREMENT RESULTS: Intervals: Rate: 89 NE: 140 QRSD: 80 QT: 362 QTc: 440 [place]: P: 83 NE: 140 QRS: 94 T: 77 INTERPRETIVE STATEMENTS: Normal sinus rhythm Rightward axis Borderline ECG Compared to ECG 01/21/2020 21:40:27 Right-axis deviation now present Electronically Signed On 05-24-20 07:16:04 CDT by Juan Ray
== END 2020-05-23 04:01 | disposition home or self-care (01) ==
LOC: ER 23:40
DX: K80.20 Calculus of gallbladder without cholecystitis without obstruction (principal); Z20.828 Contact with and (suspected) exposure to other viral communicable diseases; E11.9 Type 2 diabetes mellitus without complications; F17.210 Nicotine dependence, cigarettes, uncomplicated; Z88.8 Allergy status to other drugs, medicaments and biological substances
CPT/HCPCS: 36415; 71045; 74177; 80048; 80076; 81003; 81025; 83690; 83735; 83880; 84484; 85025; 85610; 93005; 96374; 99285; J2405; J3010; Q9967; U0002

== ENCOUNTER 2020-08-07 17:14 | Emergency (ER) | payer SELFPAY ==
--- OUTSIDE RECORDS SUMMARY | 2020-08-07 17:17 | XMS REPORT | Clinical Summary ---
:1985 Author [email or web address] Address [address] [place] [address] Care Team Providers Name Role Phone Pcp Primary Care Provider Unavailable Allergies No Known Allergies Medications No known medications Active Problems Problem Noted Date Pyelonephritis 04/04/2018 [...] Not on file Results Not on fileafter 08/07/2019 Advance Directives For more information, please contact:[facility] [employer] [facility]Clear[facility] Hospital[facility] [address] [phone] Code Status Date Activated Date Inactivated Comments Full Code 04/04/2018 5:20 PM 04/09/2018 3:29 PM This code status was determined by: Patient
[2020-08-07 18:40] LABS: Absolute Lymphocytes (CBC) 2.1 K/uL (0.7-4.9); Basophils % 0.7 % (0-1.3); Lymphocytes % 25.4 % (15.3-44.8); MPV 8.2 fL (7.6-11.3); RBC Red Blood Cell Count 4.61 M/uL (3.86-4.86)
[2020-08-07] MEDS ORDERED: KETOROLAC 30 MG/ML INJ ONE (18:54)
[2020-08-07] MEDS ORDERED: NA CHLORIDE 0.9% 500 ML ONE (18:54)
[2020-08-07] MEDS ORDERED: ONDANSETRON 4 MG/2 ML VIAL ONE (18:54)
[2020-08-07 18:59] LABS: Albumin 3.5 g/dL (3.4-5.0); Bilirubin Direct 0.1 mg/dL (0-0.2); Bilirubin Total 0.4 mg/dL (0.2-1.0); Potassium 3.4 mmol/L (3.5-5.1); Protein, Total 7.6 g/dL (6.4-8.2)
[2020-08-07 19:07] LABS: Urine RBC <5 /HPF (NONE SEEN)
[2020-08-07 19:08] LABS: Urine Bacteria <20 /HPF (<20); Urine Culture Reflex Order REFLEXED
--- NOTE | 2020-08-07 19:14 | RAD REPORT ---
EXAM DESCRIPTION: CTAbdomen Pelvis W Contrast - 08/07/2020 6:35 pm CLINICAL HISTORY: Abdominal pain. Abd pain;Flank pain COMPARISON: Abdomen Pelvis W Contrast dated 05/23/2020; Abdomen Pelvis W Contrast dated 12/03/2019 ; Abdomen Pelvis W Contrast dated 07/27/2019 TECHNIQUE: Biphasic CT imaging of the abdomen and pelvis was performed with 100 ml non-ionic IV cont rast. All CT scans are performed using dose optimization technique as appropriate and may include automated exposure control or mA/KV adjustment according to patient size. FINDINGS: The lung bases are clear.Cholelithiasis. The liver, spleen, pancreas, adrenal glands and kidneys are within normal limits. No bowel obstruction, free air, free fluid or abscess. The appendix is normal. No evidence of signi ficant lymphadenopathy. No suspicious bony findings. IMPRESSION: No acute intra-abdominal or pelvic finding. Cholelithiasis.
[2020-08-07] MEDS ORDERED: CEFTRIAXONE/SWI 1gm 1 GM/10 ML SYR ONE (19:18)
--- NOTE | 2020-08-07 19:29 | EDPHYS ---
Physician Documentation [facility] Name: Ara Plunkett Age: 35 yrs Sex: Female : 1985 Arrival Date: 08/07/2020 Time: 17:15 Bed 19 Private MD: ZACHARY Physician Rashad Melgoza HPI: 08/07 18:35 This 35 yrs old Female presents to ER via Ambulatory with complaints of jr8 Abdominal Pain, Urinary Problem. 18:35 The patient presents with abdominal pain in the left lower quadrant. Onset: The jr8 symptoms/episode began/occurred gradually, 1 week(s) ago, and became worse and became persistent. The symptoms radiate to the left flank. Associated signs and symptoms: Pertinent positives: dysuria, nausea. The symptoms are described as shooting. Modifying factors: The symptoms are alleviated by nothing, the symptoms are aggravated by movement. Severity of pain: At its worst the pain was moderate in the emergency department the pain is unchanged. The patient has not experienced similar symptoms in the past. The patient has not recently seen a physician. Historical: - Allergies: 17:35 Flagyl; ca1 17:35 steroids; ca1 17:35 Bactrim; ca1 - Home Meds: 17:35 metformin 1,000 mg oral tab 1 tab three times a day [Active]; ca1 - PMHx: 17:35 Diabetes - NIDDM; ca1 - PSHx: 17:35 None; ca1 - Immunization history:: Adult Immunizations up to date. - Social history:: Smoking status: Patient reports the use of cigarette tobacco products, smokes one-half pack cigarettes per day. ROS: 18:35 Eyes: Negative for injury, pain, redness, and discharge, ENT: Negative for injury, jr8 pain, and discharge, Neck: Negative for injury, pain, and swelling, Cardiovascular: Negative for chest pain, palpitations, and edema, Respiratory: Negative for shortness of breath, cough, wheezing, and pleuritic chest pain, MS/Extremity: Negative for injury and deformity, Skin: Negative for injury, rash, and discoloration, Neuro: Negative for headache, weakness, numbness, tingling, and seizure. 18:35 Abdomen/GI: Positive for abdominal pain, nausea, Negative for vomiting, diarrhea, constipation, abdominal cramps, abdominal distension, anorexia, hematemesis, black/tarry stool, rectal pain, rectal bleeding, bowel incontinence, flatulence. 18:35 Back: Positive for flank pain, on the left. 18:35 : Positive for urinary symptoms, hematuria. Exam: 18:35 Eyes: Pupils equal round and reactive to light, extra-ocular motions intact. Lids and jr8 lashes normal. Conjunctiva and sclera are non-icteric and not injected. Cornea within normal limits. Periorbital areas with no swelling, redness, or edema. ENT: Nares patent. No nasal discharge, no septal abnormalities noted. Tympanic membranes are normal and external auditory canals are clear. Oropharynx with no redness, swelling, or masses, exudates, or evidence of obstruction, uvula midline. Mucous membranes moist. Neck: Trachea midline, no thyromegaly or masses palpated, and no cervical lymphadenopathy. Supple, full range of motion without nuchal rigidity, or vertebral point tenderness. No Meningismus. Cardiovascular: Regular rate and rhythm with a normal S1 and S2. No gallops, murmurs, or rubs. Normal PMI, no JVD. No pulse deficits. Respiratory: Lungs have equal breath sounds bilaterally, clear to auscultation and percussion. No rales, rhonchi or wheezes noted. No increased work of breathing, no retractions or nasal flaring. Skin: Warm, dry with normal turgor. Normal color with no rashes, no lesions, and no evidence of cellulitis. MS/ Extremity: Pulses equal, no cyanosis. Neurovascular intact. Full, normal range of motion. Neuro: Awake and alert, GCS 15, oriented to person, place, time, and situation. Cranial nerves II-XII grossly intact. Motor strength 5/5 in all extremities. Sensory grossly intact. Cerebellar exam normal. Normal gait. 18:35 Abdomen/GI: Inspection: abdomen appears normal, Bowel sounds: active, all quadrants, Palpation: soft, in all quadrants, moderate abdominal tenderness, in the left lower quadrant, mass, is not appreciated, rebound tenderness, is not appreciated, voluntary guarding, is not appreciated, involuntary guarding, is not appreciated, no appreciated organomegaly, Indicators: McBurney's point is not tender, Ritchie's sign is negative, Rovsing's sign is negative, Liver: tenderness, is not appreciated. 18:35 Back: pain, that is mild, of the left flank, CVA tenderness, that is moderate, is noted on the left. Vital Signs: 17:31 BP 113 / 76; Pulse 101; Resp 17 S; Temp 97.8(TE); Pulse Ox 100% on R/A; Weight 72.57 kg ca1 (R); Height 5 ft. 2 in. (157.48 cm); Pain 9/10; 19:43 BP 112 / 71; Pulse 89; Resp 18; Temp 98; Pulse Ox 99% ; rv 17:31 Body Mass Index 29.26 (72.57 kg, 157.48 cm) ca1 MDM: 17:54 Patient medically screened. bobbi 19:28 Data reviewed: vital signs, nurses notes, lab test result(s), radiologic studies, CT jr8 scan. Data interpreted: Pulse oximetry: on room air is 100 %. Interpretation: normal. Counseling: I had a detailed discussion with the patient and/or guardian regarding: the historical points, exam findings, and any diagnostic results supporting the discharge/admit diagnosis, lab results, radiology results, the need for outpatient follow up, a family practitioner, to return to the emergency department if symptoms worsen or persist or if there are any questions or concerns that arise at home. Response to treatment: the patient's symptoms have mildly improved after treatment. 08/07 18:03 Order name: Basic Metabolic Panel; Complete Time: 19:01 [facility] 08/07 18:03 Order name: CBC with Diff; Complete Time: 18:53 [facility] 08/07 18:03 Order name: Hepatic Function; Complete Time: 19:01 [facility] 08/07 18:03 Order name: Lipase; Complete Time: 19:01 [facility] 08/07 18:03 Order name: Urine Microscopic Only; Complete Time: 19:10 [facility] 08/07 18:37 Order name: Urine Dipstick--Ancillary (enter results); Complete Time: 20:40 08/07 18:03 Order name: IV Saline Lock; Complete Time: 18:50 [facility] 08/07 18:03 Order name: CT Abd/Pelvis - IV Contrast Only; Complete Time: 19:28 [facility] 08/07 18:37 Order name: Urine --Ancillary (enter results); Complete Time: 20:40 08/07 19:09 Order name: Urine Culture [facility] 08/07 18:03 Order name: Labs collected and sent; Complete Time: 18:50 08/07 18:03 Order name: Urine Test (obtain specimen); Complete Time: 18:50 08/07 18:03 Order name: Urine Dipstick-Ancillary (obtain specimen); Complete Time: 18:50 Administered Medications: 18:45 Drug: NS 0.9% 500 ml Route: IV; Rate: bolus; Site: right antecubital; aa5 19:43 Follow up: IV Status: Completed infusion; IV Intake: 500ml rv 18:45 Drug: TORadol - Ketorolac 15 mg Route: IVP; Site: right antecubital; aa5 19:44 Follow up: Response: No adverse reaction rv 18:45 Drug: Zofran (Ondansetron) 4 mg Route: IVP; Site: right antecubital; aa5 19:44 Follow up: Response: No adverse reaction rv 19:12 Drug: Rocephin 1 grams Route: IV; Rate: calculated rate; Site: right antecubital; rv 19:43 Follow up: Response: No adverse reaction; IV Status: Completed infusion rv Disposition: 08/08 08:16 Co-signature as Attending Physician, Rashad Melgoza MD I agree with the assessment and bobbi plan of care. Disposition: 08/07/20 19:29 Discharged to Home. Impression: Acute cystitis with hematuria. - Condition is Stable. - Discharge Instructions: Urinary Tract Infection, Adult. - Prescriptions for Zofran 4 mg Oral Tablet - take 1 tablet by ORAL route every 12 hours As needed; 20 tablet. Cipro 500 mg Oral Tablet - take 1 tablet by ORAL route every 12 hours for 7 days; 14 tablet. - Medication Reconciliation Form, Thank You Letter, Antibiotic Education, Prescription Opioid Use form. - Follow up: Private Physician; When: 2 - 3 days; Reason: Recheck today's complaints, Continuance of care, Re-evaluation by your physician. - Problem is new. - Symptoms have improved. Signatures: Dispatcher [employer] Rashad Graham MD MD cha Calderon, Audri RN RN aa5 Umair Dorsey PA PA jr8 Gómez Sidhu RN RN rv AcobSuyapa RN RN ca1 Corrections: (The following items were deleted from the chart) 08/07 19:44 19:29 08/07/2020 19:29 Discharged to Home. Impression: Acute cystitis with hematuria. rv Condition is Stable. Forms are Medication Reconciliation Form, Thank You Letter, Antibiotic Education, Prescription Opioid Use. Follow up: Private Physician; When: 2 - 3 days; Reason: Recheck today's complaints, Continuance of care, Re-evaluation by your physician. Problem is new. Symptoms have improved. jr8
--- NOTE | 2020-08-07 19:29 | ER ---
Nurse's Notes [facility] Name: Ara Plunkett Age: 35 yrs Sex: Female : 1985 Arrival Date: 08/07/2020 Time: 17:15 Bed 19 Private MD: Diagnosis: Acute cystitis with hematuria Presentation: 08/07 17:31 Chief complaint: Patient states: Left lower back pain, radiating to the LLQ x 1 week. ca1 Has been worse in the past few days. Reports burning with urination, blood with urine. Denies fever. Reports nausea. Coronavirus screen: Client denies travel out of the [place] in the last 14 days. At this time, the client does not indicate any symptoms associated with coronavirus-19. Ebola Screen: Patient negative for fever greater than or equal to 101.5 degrees Fahrenheit, and additional compatible Ebola Virus Disease symptoms Patient denies exposure to infectious person. Patient denies travel to an Ebola-affected area in the 21 days before illness onset. No symptoms or risks identified at this time. Initial Sepsis Screen: Does the patient meet any 2 criteria? No. Patient's initial sepsis screen is negative. Does the patient have a suspected source of infection? No. Patient's initial sepsis screen is negative. Risk Assessment: Do you want to hurt yourself or someone else? Patient reports no desire to harm self or others. Onset of symptoms was August 07, 2020. 17:31 Method Of Arrival: Ambulatory ca1 17:31 Acuity: CHARISSA 3 ca1 Historical: - Allergies: 17:35 Flagyl; ca1 17:35 steroids; ca1 17:35 Bactrim; ca1 - Home Meds: 17:35 metformin 1,000 mg oral tab 1 tab three times a day [Active]; ca1 - PMHx: 17:35 Diabetes - NIDDM; ca1 - PSHx: 17:35 None; ca1 - Immunization history:: Adult Immunizations up to date. - Social history:: Smoking status: Patient reports the use of cigarette tobacco products, smokes one-half pack cigarettes per day. Screenin:14 Abuse screen: Denies threats or abuse. Nutritional screening: No deficits noted. tw2 Tuberculosis screening: No symptoms or risk factors identified. Fall Risk None identified. Assessment: 18:00 General: Appears uncomfortable, Behavior is calm, cooperative. Pain: Complains of pain aa5 in left flank Pain radiates to left lower quadrant Pain currently is 9 out of 10 on a pain scale. Quality of pain is described as sharp, shooting, Pain began 1 week ago Is continuous. Neuro: Level of Consciousness is awake, alert, obeys commands, Oriented to person, place, time, situation. Cardiovascular: Heart tones S1 S2 present Rhythm is regular. Respiratory: Airway is patent Respiratory effort is even, unlabored, Respiratory pattern is regular, symmetrical. GI: Abdomen is round non-distended, Bowel sounds present X 4 quads. Abd is soft and non tender X 4 quads. Reports nausea. : Reports burning with urination, blood in urine. EENT: No signs and/or symptoms were reported regarding the EENT system. Derm: Skin is pink, warm \T\ dry. Musculoskeletal: Range of motion: intact in all extremities. 18:45 Reassessment: Patient is alert, oriented x 3, equal unlabored respirations, skin aa5 warm/dry/pink. Pt back from CT scan . Vital Signs: 17:31 BP 113 / 76; Pulse 101; Resp 17 S; Temp 97.8(TE); Pulse Ox 100% on R/A; Weight 72.57 kg ca1 (R); Height 5 ft. 2 in. (157.48 cm); Pain 9/10; 19:43 BP 112 / 71; Pulse 89; Resp 18; Temp 98; Pulse Ox 99% ; rv 17:31 Body Mass Index 29.26 (72.57 kg, 157.48 cm) ca1 ED Course: 17:15 Patient arrived in ED. as 17:34 Triage completed. ca1 17:35 Arm band placed on right wrist. ca1 17:53 Umair Dorsey PA is PHCP. jr8 17:53 Rashad Melgoza MD is Attending Physician. jr8 18:00 Patient has correct armband on for positive identification. Bed in low position. Call aa5 light in reach. Side rails up X 1. 18:18 Amelia Monroy, RN is Primary Nurse. aa5 18:25 Initial lab(s) drawn, by il, sent to lab. Inserted saline lock: 20 gauge in right aa5 antecubital area, using aseptic technique. Blood collected. IV inserted by VÍCTOR Akhtar. 18:35 CT Abd/Pelvis - IV Contrast Only In Process Unspecified. EDMS 19:03 Report given to VÍCTOR Magaña. aa5 19:43 No provider procedures requiring assistance completed. IV discontinued, intact, rv bleeding controlled, No redness/swelling at site. Pressure dressing applied. Administered Medications: 18:45 Drug: NS 0.9% 500 ml Route: IV; Rate: bolus; Site: right antecubital; aa5 19:43 Follow up: IV Status: Completed infusion; IV Intake: 500ml rv 18:45 Drug: TORadol - Ketorolac 15 mg Route: IVP; Site: right antecubital; aa5 19:44 Follow up: Response: No adverse reaction rv 18:45 Drug: Zofran (Ondansetron) 4 mg Route: IVP; Site: right antecubital; aa5 19:44 Follow up: Response: No adverse reaction rv 19:12 Drug: Rocephin 1 grams Route: IV; Rate: calculated rate; Site: right antecubital; rv 19:43 Follow up: Response: No adverse reaction; IV Status: Completed infusion rv Intake: 19:43 IV: 500ml; Total: 500ml. rv Outcome: 19:29 Discharge ordered by . eileen 19:43 Discharged to home ambulatory. rv 19:43 Condition: good 19:43 Discharge instructions given to patient, Instructed on discharge instructions, follow up and referral plans. medication usage, Demonstrated understanding of instructions, follow-up care, medications, Prescriptions given X 2. 19:44 Patient left the ED. rv Signatures: Dispatcher [employer] EDMary Senior Audri, RN RN aa5 Umair Dorsey PA PA jr8 Ling Zaldivar RN RN tw2 Gómez Sidhu, VÍCTOR RN rv Suyapa Gonzalez RN RN ca1
[2020-08-07 19:34] LABS: Urine Blood 2+ (NEG); Urine Glucose 2+ (NEG); Urine Protein 1+ (NEG); Urine Specific Gravity 1.015 (1.005-1.030)
[2020-08-07 21:38] VITALS: BP 112/71; TEMP 98; O2SAT 99
== END 2020-08-07 19:44 | disposition home or self-care (01) ==
LOC: ER 17:14
DX: N30.01 Acute cystitis with hematuria (principal); E11.9 Type 2 diabetes mellitus without complications; F17.210 Nicotine dependence, cigarettes, uncomplicated; Z88.1 Allergy status to other antibiotic agents; Z88.8 Allergy status to other drugs, medicaments and biological substances
CPT/HCPCS: 36415; 74177; 80048; 80076; 81003; 81015; 81025; 82565; 83690; 85025; 87086; 87088; 96365; 96375; 99284; J0696; J2405; J7040; Q9967

== ENCOUNTER 2020-09-18 05:28 | Emergency (ER) | payer SELFPAY ==
--- OUTSIDE RECORDS SUMMARY | 2020-09-18 05:31 | XMS REPORT | Clinical Summary ---
:1985 Author Organization [facility] Address [address] [place] [address] Care Team Providers Name Role Phone Pcp [...] Assigned at Date Recorded Not on file Last Filed Vital Signs Not on file Plan of Treatment Not on file Results Not on fileafter 09/18/2019 Advance Directives For more information, please contact: [phone] Code Status Date Activated Date Inactivated Comments Full Code 04/04/2018 5:20 PM 04/09/2018 3:29 PM This code status was determined by: Patient
--- OUTSIDE RECORDS SUMMARY | 2020-09-18 05:31 | XMS REPORT | Summary of Care ---
:1985 Author Organization [facility] - [facility] Address [address] [place] [id number] Care Team Providers Name Role Phone Pcp, Patient Does Not Have A Primary Care Provider +[id number] Reason for Referral MRI/CAT Scan (STAT) Status Reason Specialty Diagnoses / Referred By Referred To Procedures Contact Contact New Request Diagnostic Diagnoses Abdominal pain, unspecified abdominal location Mya Monte, Radiology Procedures CT ABDOMEN PELVIS W CONTRAST PAC [address] [place] [address] [place] [address] Reason for Visit Reason Comments LOW BACK PAIN Auth/Cert Status Reason Specialty Diagnoses / Referred By Referred To Procedures Contact Contact Emergency Medicine Ad[facility] Em ergency Dept [address] [place] [address] Fax: Encounter Details Date Type Department Care Team Description 09/16/2020 Emergency ADC-Emergency Mya Monte, PAC Biliary calculus of other site without o bstruction (Primary Dx); Department [address] [place] [address] Abdominal pain, unspecified abdominal lo cation; [address] [place] [address] [phone] Type 2 diabetes mellitus with other spec ified complication, unspecified whether intermediate designer insulin use Drive [phone] [place], [place] [address] [phone] Allergies Active Allergy Reactions Severity Noted Date Comments Metronidazole Hcl Unknown - See comments 02/19/2020 Ketorolac Anxiety 09/16/2020 documented as of this encounter (statuses as of 09/16/2020) Medications Medication Sig Dispensed Refills Start Date End Date Status dicyclomine 20 mg Take 1 tablet by 30 tablet 0 09/16/2020 Active tabletIndications: mouth 4 (four) Abdominal pain, times daily as unspecified abdominal needed for location, Biliary Abdominal pain. calculus of other site without obstruction ondansetron (ZOFRAN) Take 1 tablet by 20 tablet 0 09/16/2020 Active 4 mg mouth every 8 tabletIndications: (eight) hours as Abdominal pain, needed for Nausea unspecified abdominal and Vomiting (N/V). location, Biliary calculus of other site without obstruction metFORMIN 500 mg Take 1 tablet by 30 tablet 0 09/16/2020 Active tabletIndications: mouth 2 (two) times Abdominal pain, daily. unspecified abdominal location, Biliary calculus of other site without obstruction, Type 2 diabetes mellitus with other specified complication, unspecified whether fpc insulin use documented as of this encounter (statuses as of 09/16/2020) Active Problems No known active problemsdocumented as of this encounter (statuses as of 09/16/2020) Social History Tobacco Use Types Packs/Day Years Used Date Never Assessed Sex Assigned at Date Recorded Not on file COVID-19 Exposure Response Date Recorded In the last month, have you been in contact with No / Unsure 09/16/2020 12:17 AM CDT someone who was confirmed or suspected to have Coronavirus / COVID-19? documented as of this encounter Last Filed Vital Signs Vital Sign Reading Time Taken Comments Blood Pressure 136/84 09/16/2020 2:28 AM CDT Pulse 90 09/16/2020 2:28 AM CDT Temperature 37.2 C (99 F) 09/16/2020 12:23 AM CDT Respiratory Rate 16 09/16/2020 2:28 AM CDT Oxygen Saturation 99% 09/16/2020 2:28 AM CDT Inhaled Oxygen Concentration - - Weight 71.2 kg (157 lb) 09/16/2020 12:23 AM CDT Height 157.5 cm (5' 2") 09/16/2020 12:23 AM CDT Body Mass Index 28.72 09/16/2020 12:23 AM CDT documented in this encounter Discharge Instructions Mya Reyes PAC - 09/16/2020 DIAGNOSIS 1. Abdominal pain 2. Gallstones 3. Diabetes NO LIFE-THREATENING FINDINGS ON TODAY'S EXAM. PROCEDURES IN THE ER TODAY: none MEDICATIONS ADMINISTERED IN THE ER TODAY: Fentanyl 50 mcg IV Insulin 10 units IV fluids Zofran 4mg IV YOUR PRESCRIPTIONS AND [id number] MEDICATION RECOMMENDATIONS: Patient's Medications START taking these medications DICYCLOMINE 20 MG TABLET Take 1 tablet by mouth 4 (four) times daily as needed for Abdominal pain. ONDANSETRON (ZOFRAN) 4 MG TABLET Take 1 tablet by mouth every 8 (eight) hours as needed for Nausea and Vomiting (N/V). CONTINUE taking these medications which have NOT CHANGED No medications on file START taking Modified Medications as Prescribed No medications on file STOP taking these medications No medications on file SPECIAL CARE INSTRUCTIONS: Take the medication as prescribed for pain and nausea. Drink clear fluids and eat bland foods only as tolerated. Return to the ER if your pain worsens despite treatment, if you have vomiting that prevents you fromkeeping fluids down, if you develop a fever with your abdominal pain or if you are unable to drink enough fluids to urinate at least 3 times every 24 hours. Follow up with a general surgeon for further evaluation and treatment options for your gallstones. FOLLOW-UP RECOMMENDATIONS: RECOMMEND FOLLOW-UP WITH A PRIMARY CARE PROVIDER OR SPECIALIST IN 2-5 DAYS, ESPECIALLY IF NO IMPROVEMENT IN SYMPTOMS. TO FOLLOW-UP WITHIN THE [facility], TRY THESE OPTIONS (CLINIC APPOINTMENTS AVAILABLE ON ETQY-EY-ENUD BASIS): 1. SCHEDULE AN APPOINTMENT ONLINE AT [email or web address] 2. OR CALL THE [facility] AT OR 3. OR CALL YOUR [facility] PHYSICIAN'S OFFICE DIRECTLY IF YOU ARE ALREADY AN ESTABLISHED [facility] PATIENT. OR, YOU MAY FOLLOW-UP WITH A PROVIDER OF YOUR CHOICE, SUCH : 1. A PHYSICIAN OF YOUR CHOICE 2. [facility], . LOCATIONS IN [facility] 3. [facility], [address], [place]; [phone] RETURN TO ER FOR WORSENING OF SYMPTOMS. AttachmentsThe following attachments cannot be sent through Care Everywhere. Abdominal Pain, Adult (Citizen [place])Gallstones, Discharge Instructions ([place]izen [place]) documented in this encounter ED Notes Shasha John RN - 09/16/2020 12:17 AM CDTCC: patient states that she is having lower back pain where the right side radiates to the front andthe left side stays in the back and goes down her leg. She states she has had this issue in the pastwhere it was a UTI and gallbladder issues. PMHx: DM Type 2, anxiety PSH: none MEDS: metformin LMP: 08/28/20 Tetanus: UTD Awake, alert, oriented, resp reg unlabored, skin warm and dry, color appropriate for race, moves allext without difficulty, amb with no assistance Appears in no distress documented in this encounter Miscellaneous Notes ED Nurse Note - Celia Cho RN - 09/16/2020 2:27 AM CDTPt given printed and verbal discharge instructions regarding biliary calculus, abdominal pain, and DM, encouraged hydration. Prescriptions provided. Pt verbalized understanding of instructions, pt awake alert oriented, resp reg unlabored, skin w/d, color appropriate for race, moves all ext well, pt encouraged to follow up with PCP. Advised to seek medical attention for new/prolonged/worsening of symptoms. Symptoms addressed. No adverse reaction to meds given in ER noted upon discharge. PIV d'cd, dressing to site, catheter intact. Pt leaving amb with steady gait, in no apparent distress. D Nurse Note - Celia Cho RN - 09/16/2020 1:25 AM CDTInformed provider of patient stating that her chest "feels heavy, I think I am having a panic attack." No new orders at this time. documented in this encounter Plan of Treatment Name Type Priority Associated Diagnoses Date/Ti me CT ABDOMEN PELVIS W IMAGING STAT Abdominal pain, 09/16 1:20 AM CONTRAST unspecified abdominal CDT location Health Maintenance Due Date Last Done Comments VARICELLA VACCINES ( of 2 - 1984 2-dose childhood series) Depression Screening 1995 DTaP,Tdap,and Td Vaccines ( - 2002 Tdap) PAP SMEAR 2004 INFLUENZA VACCINE (#1) 2020 PNEUMOCOCCAL 0-64 YEARS COMBINED Aged Out No longer eligible based on SERIES patient's age to complete this topic documented as of this encounter Procedures Procedure Name Priority Date/Time Associated Diagnosis Comme nts POCT GLUCOSE Routine 09/16/2020 2:08 AM Results for this (AUTOMATED) CDT procedure are i n the results section. CT ABDOMEN PELVIS W STAT 09/16/2020 1:20 AM Abdominal pain , CONTRAST CDT unspecified abdominal location Procedure Note - [facility], Radia nt Results Inft User - 09/16/2020 1:47 AM CDT EXAM: CT ABDOMEN AND PELVIS WITH CONTRAST HISTORY: 35-year-old female with acute abdominal pain COMPARISON: None. TECHNIQUE AND FINDINGS: Cont iguous axial imaging from the level of the lung bases through the pubic symp hysis was performed after the uncomplicated administration of 120 cc of intravenous Omnipaque contrast. Coronal and sagittal reconstructions wer e obtained. Auto mA and/or iterative reconstruction were used to reduce radiation dose. FINDINGS: LOWER THORAX: The lung bases are clear. No cardiomegaly. LIVER: No focal hepatic lesi ons. Normal contour. GALLBLADDER AND BILIARY TREE : No biliary ductal dilation. The gallbladder contains stones with no abno rmal distention or wall thickening. SPLEEN: No splenomegaly. PANCREAS: No ductal dilation or masses. ADRENAL GLANDS: No adrenal n odules. KIDNEYS: No hydronephrosis, stones, or masses. PERITONEUM AND RETROPERITONE UM: No free air or fluid. LYMPH NODES: No lymphadenopa thy. GI TRACT: No dilation or wal l thickening. The appendix is normal. PELVIS/BLADDER: A 1.2 cm cor pus luteum is noted on the right side. The uterus and adnexa are otherw ise unremarkable. No significant wall thickening. VESSELS: Unremarkable. BONES AND SOFT TISSUES: No s uspicious lytic or sclerotic bony lesions. IMPRESSION 1. No acute findings in the abdomen or pelvis. 2. Cholelithiasis without e vidence of acute cholecystitis. Preliminary Report Dictated by Resident: Aracelis Pandya POCT TEST Routine 09/16/2020 12:50 AM Abdominal pain , Results for this CDT unspecified procedure are i n abdominal location the resul ts section. URINALYSIS STAT 09/16/2020 12:38 AM Abdominal pain, Resul ts for this CDT unspecified procedure are i n abdominal location the resul ts section. CBC WITH DIFF STAT 09/16/2020 12:38 AM Abdominal pain, Resu lts for this CDT unspecified procedure are i n abdominal location the resul ts section. COMP. METABOLIC STAT 09/16/2020 12:38 AM Abdominal pain, Re sults for this PANEL (33727) CDT unspecified procedure are in abdominal location the resul ts section. LIPASE STAT 09/16/2020 12:38 AM Abdominal pain, Resul ts for this CDT unspecified procedure are i n abdominal location the resul ts section. NOTICE OF PRIVACY Routine 09/16/2020 12:08 AM PRACTICES CDT CONSENT/REFUSAL FOR Routine 09/16/2020 12:07 AM DIAGNOSIS AND CDT TREATMENT documented in this encounter Results POCT GLUCOSE (AUTOMATED) (09/16/2020 2:08 AM CDT) Pathologist Sig nature POCT GLU 377 (H) 70 - 110 mg/dL [facility] Specimen Blood Performing Organization Address City/State/Zipcode Phone Number [facility] CLIA: [id number] [place] [address] POCT Test (09/16/2020 12:50 AM CDT) Pathologist Sig nature POCT PREG negative On board controls acceptable present with C Line POCT PREG LOT # [id number] POCT PREG TEST DATE 02/21/2022 Specimen Urine - URINE, CLEAN CATCH Urinalysis (09/16/2020 12:38 AM CDT) Pathologist Sig nature APPEARANCE Clear Clear [facility] COLOR Straw (A) Yellow [facility] PH 6.0 4.8 - 8.0 [facility] SP GRAVITY 1.032 (H) 1.003 - 1.030 [facility] GLU U QUAL 500 mg/dL (A) Normal [facility] BLOOD Negative Negative [facility] KETONES Negative Negative [facility] PROTEIN Negative Negative [facility] UROBILIN Normal Normal [facility] BILIRUBIN Negative Negative [facility] NITRITE Negative Negative [facility] LEUK TANISHA Negative Negative [facility] RBC/HPF 3 0 - 3 HPF [facility] WBC/HPF <1 0 - 5 HPF [facility] BACTERIA Few (A) Negative [facility] SQ EPITH 1 HPF [facility] Specimen Urine - URINE, CLEAN CATCH Performing Organization Address City/[facility]/Zipcode Phone Number [facility] CLIA: [id number] [place] [address] Lipase, Serum (09/16/2020 12:38 AM CDT) Pathologist Sig [facility] LIPASE 104 0 - 220 U/L [facility] Specimen Blood - VENOUS Performing Organization Address City/[facility]/Zipcode Phone Number [facility] CLIA: [id number] [place] [address] LABORATORY [address] [facility] CBC with Differential (09/16/2020 12:38 AM CDT) Pathologist Sig nature WBC 12.04 (H) 4.30 - 11.10 [facility] 10*3/L [facility] RBC 4.55 3.93 - 5.25 [facility] 10*6/L [facility] HGB 13.8 11.6 - 15.0 [facility] g/dL [facility] HCT 38.4 35.7 - 45.2 % [facility] MCV 84.4 80.6 - 95.5 fL [facility] MCH 30.3 25.9 - 32.8 pg [facility] MCHC 35.9 (H) 31.6 - 35.1 [facility] g/dL [facility] RDW-SD 36.2 (L) 39.0 - 49.9 fL [facility] RDW-CV 11.9 (L) 12.0 - 15.5 % [facility] PLT 474 (H) 166 - 358 [facility] 10*3/L [facility] MPV 9.7 9.5 - 12.9 fL [facility] NRBC/100 WBC 0.0 0.0 - 10.0 /100 [facility] WBCs [facility] NRBC x10^3 <0.01 10*3/L [facility] GRAN MAT (NEUT) % 66.1 % [facility] IMM GRAN % 0.40 % [facility] LYMPH % 24.0 % [facility] MONO % 6.1 % [facility] EOS % 2.7 % [facility] BASO % 0.7 % [facility] GRAN MAT x10^3(ANC) 7.96 (H) 1.88 - 7.09 [facility] 10*3/uL [facility] IMM GRAN x10^3 0.05 0.00 - 0.06 [facility] 10*3/uL HOSPITAL LABORATORY LYMPH x10^3 2.89 1.32 - 3.29 [facility] 10*3/uL [facility] MONO x10^3 0.73 0.33 - 0.92 [facility] 10*3/uL [facility] EOS x10^3 0.33 0.03 - 0.39 [facility] 10*3/uL [facility] BASO x10^3 0.08 (H) 0.01 - 0.[address]3/uL [facility] Specimen Blood - VENOUS Performing Organization Address City/State/Zipcode Phone Number [facility] CLIA: [id number] [place], [place] [id number] LABORATORY [address] Complete Metabolic Panel (09/16/2020 12:38 AM CDT) [facility] NA 132 (L) 135 - 145 [facility] mmol/L [facility] K 3.6 3.5 - 5.0 [facility] mmol/L [facility] CL 102 98 - 108 mmol/L [facility] CO2 TOTAL 21 (L) 23 - 31 mmol/L [facility] AGAP 9 2 - 16 [facility] BUN 7 7 - 23 mg/dL [facility] GLUCOSE 424 (H) 70 - 110 mg/dL [facility] CREATININE 0.59 0.50 - 1.04 [facility] mg/dL [facility] TOTAL BILI 0.5 0.1 - 1.1 mg/dL [facility] CALCIUM 9.4 8.6 - 10.6 [facility] mg/dL [facility] T PROTEIN 7.4 6.3 - 8.2 g/dL [facility] ALBUMIN 4.0 3.5 - 5.0 g/dL [facility] ALK PHOS 107 34 - 122 U/L [facility] ALTv 8 5 - 35 U/L [facility] AST(SGOT) 17 13 - 40 U/L [facility] [place] eGFR Calculation 114.7 mL/min/1.73m2 [facility] ([facility] LABORATORY [place]) eGFR Calculation 139.0 mL/min/1.73m2 [facility] () [facility] Specimen Blood - VENOUS Narrative Performed At [facility] [place] of Glomerular Filtration Rate (GFR) [facility] and Staging of Kidney Disease* [...] tests). Performing Organization Address City/State/Zipcode Phone Number [facility] CLIA: [id number] [place] [address] documented in this encounter Visit Diagnoses Diagnosis Biliary calculus of other site without o bstruction - Primary Abdominal pain, unspecified abdominal lo cation Type 2 diabetes mellitus with other spec ified complication, unspecified whether fpc insulin use documented in this encounter Administered Medications Medication Order MAR Action Action Date Dose Rate Site dicyclomine (BENTYL) Given 09/16/2020 2:20 AM 20 mg Left injection 20 mg CDT Dorsogluteal-IM 20 mg, Intramuscular, ONCE, 1 dose, 09/16/20 at 0315, Routine FENTanyl PF (SUBLIMAZE (PF)) injection 50 Given 09/16/2020 1:08 AM CDT 50 mcg mcg 50 mcg, Slow IV Push, ONCE, 1 dose, 09/16/20 at 0200, STAT insulin regular human (HUMULIN R) Given 09/16/2020 2:20 AM CDT 10 Units Abdomen-SC injection 10 Units 10 Units, Subcutaneous, ONCE, 1 dose, 09/16/20 at 0300, STAT iohexol (OMNIPAQUE 350 BULK-100 mL) Given 09/16/2020 1:16 AM CD T 120 mL injection 120 mL 120 mL, Intravenous, ONCE, 1 dose, 09/16/20 at 0130, Routine NaCl 0.9% (NS) bolus infusion New Bag 09/16/2020 1:07 AM CDT 1,000 mL 999 mL/hr 1,000 mL at 999 mL/hr, 1,000 mL, IV Infusion, ONCE, 1 dose, 09/16/20 at 0200, STAT ondansetron (ZOFRAN (PF)) injection 4 mg Given 09/16/2020 1:07 AM CDT 4 mg 4 mg, Slow IV Push, ONCE, 1 dose, 09/16/20 at 0200, LIYAH documented in this encounter
[2020-09-18] MEDS ORDERED: MORPHINE 4 MG/ML SYR ONE (06:45)
[2020-09-18] MEDS ORDERED: ONDANSETRON 4 MG/2 ML VIAL ONE ×2 (06:45→08:58)
[2020-09-18] MEDS ORDERED: FAMOTIDINE 20 MG/2 ML VIAL IV ONE (06:46)
[2020-09-18] MEDS ORDERED: NA CHLORIDE 0.9% 1,000 ML ONE ×2 (06:46→08:28)
[2020-09-18 07:05] LABS: Absolute Lymphocytes (CBC) 1.6 K/uL (0.7-4.9); Basophils % 0.5 % (0-1.3); Hematocrit 41.3 % (36.0-45.0); Lymphocytes % 11.6 % (15.3-44.8); RBC Red Blood Cell Count 4.63 M/uL (3.86-4.86)
[2020-09-18 07:40] LABS: Albumin 3.5 g/dL (3.4-5.0); Bilirubin Direct 0.1 mg/dL (0-0.2); Bilirubin Total 0.5 mg/dL (0.2-1.0); Potassium 3.9 mmol/L (3.5-5.1); Protein, Total 8.1 g/dL (6.4-8.2)
[2020-09-18 07:49] LABS: Urine Blood NEGATIVE (NEG); Urine Glucose 2+ (NEG); Urine Protein NEGATIVE (NEG)
[2020-09-18] MEDS ORDERED: INSULIN -REGULAR HUMAN 50 UNIT/0.5 ML ML ONE (08:28)
[2020-09-18] MEDS ORDERED: BISACODYL 10 MG RECTAL SUPP ONE (08:28)
[2020-09-18] MEDS ORDERED: CEFTRIAXONE/SWI 1gm 1 GM/10 ML SYR ONE (08:28)
[2020-09-18] MEDS ORDERED: LACTULOSE 20 GM/30 ML UCUP ONE ×2 (08:29→10:16)
--- NOTE | 2020-09-18 09:44 | RAD REPORT ---
EXAM DESCRIPTION: CTAbdomen Pelvis W Contrast - 09/18/2020 8:54 am CLINICAL HISTORY: Abdominal pain. Abd pain;Constipation COMPARISON: Abdomen Pelvis W Contrast dated 08/07/2020; Abdomen Pelvis W Contrast dated 05/23/2020 ; Abdomen Pelvis W Contrast dated 12/03/2019; Abdomen Pelvis W Contrast dated 07/27/2019 TECHNIQUE: Biphasic CT imaging of the abdomen and pelvis was performed with 100 ml non-ionic IV cont rast. All CT scans are performed using dose optimization technique as appropriate and may include automated exposure control or mA/KV adjustment according to patient size. FINDINGS: The lung bases are clear. The liver, spleen, pancreas, adrenal glands and kidneys are within normal limits. Cholelithiasis. No bowel obstruction, free air, free fluid or abscess. The appendix is normal. No evidence of signi ficant lymphadenopathy. There is a significant amount of stool impacted in the rectum with mild surro unding inflammation in the perirectal fat. No suspicious bony findings. IMPRESSION: Significant stool impacted in the rectum with surrounding inflammation in the perirectal fat suggest stercoral colitis.
--- NOTE | 2020-09-18 10:05 | EDPHYS ---
Physician Documentation [facility] Name: Ara Plunkett Age: 35 yrs Sex: Female : 1985 Arrival Date: 09/18/2020 Time: 05:30 Bed 15 Private MD: ZACHARY Physician Rashad Melgoza HPI: 09/18 06:01 This 35 yrs old Female presents to ER via Ambulatory with complaints of mh7 Constipation. Abdominal Pain. 06:01 The patient presents with abdominal pain that is diffuse. Onset: The symptoms/episode mh7 began/occurred yesterday. The symptoms do not radiate. Associated signs and symptoms: Pertinent positives: constipation, nausea, Pertinent negatives: anorexia, blood in stools, chest pain, diarrhea, dysuria, fever, headache, hematuria, palpitations, shortness of breath, vaginal discharge, vomiting, vomiting blood. The symptoms are described as intermittent, vague, waxing/waning. Modifying factors: The symptoms are alleviated by nothing, the symptoms are aggravated by nothing. Severity of pain: At its worst the pain was moderate last night, in the emergency department the pain is unchanged. Historical: - Allergies: 05:39 Flagyl; jb4 05:39 Bactrim; jb4 05:39 steroids; jb4 05:39 Toradol; jb4 - Home Meds: 05:39 metformin 1,000 mg Oral tab 1 tab three times a day [Active]; jb4 - PMHx: 05:39 Diabetes - NIDDM; jb4 - PSHx: 05:39 None; jb4 - Immunization history:: Adult Immunizations up to date. - Social history:: Smoking status: Patient reports the use of cigarette tobacco products, smokes one pack cigarettes per day. Patient/guardian denies using alcohol, street drugs. ROS: 06:01 Constitutional: Negative for fever, chills, and weight loss, Eyes: Negative for injury, mh7 pain, redness, and discharge, ENT: Negative for injury, pain, and discharge, Neck: Negative for injury, pain, and swelling, Cardiovascular: Negative for chest pain, palpitations, and edema, Respiratory: Negative for shortness of breath, cough, wheezing, and pleuritic chest pain, Back: Negative for injury and pain, : Negative for injury, bleeding, discharge, and swelling, MS/Extremity: Negative for injury and deformity, Skin: Negative for injury, rash, and discoloration, Neuro: Negative for headache, weakness, numbness, tingling, and seizure, Psych: Negative for depression, anxiety, suicide ideation, homicidal ideation, and hallucinations, Allergy/Immunology: Negative for hives, rash, and allergies, Endocrine: Negative for neck swelling, polydipsia, polyuria, polyphagia, and marked weight changes, Hematologic/Lymphatic: Negative for swollen nodes, abnormal bleeding, and unusual bruising. Exam: 06:01 Head/Face: Normocephalic, atraumatic. Eyes: Pupils equal round and reactive to light, mh7 extra-ocular motions intact. Lids and lashes normal. Conjunctiva and sclera are non-icteric and not injected. Cornea within normal limits. Periorbital areas with no swelling, redness, or edema. Neck: Trachea midline, no thyromegaly or masses palpated, and no cervical lymphadenopathy. Supple, full range of motion without nuchal rigidity, or vertebral point tenderness. No Meningismus. Chest/axilla: Normal chest wall appearance and motion. Nontender with no deformity. No lesions are appreciated. Cardiovascular: Regular rate and rhythm with a normal S1 and S2. No gallops, murmurs, or rubs. Normal PMI, no JVD. No pulse deficits. Respiratory: Lungs have equal breath sounds bilaterally, clear to auscultation and percussion. No rales, rhonchi or wheezes noted. No increased work of breathing, no retractions or nasal flaring. 06:01 Back: No spinal tenderness. No costovertebral tenderness. Full range of motion. Skin: Warm, dry with normal turgor. Normal color with no rashes, no lesions, and no evidence of cellulitis. MS/ Extremity: Pulses equal, no cyanosis. Neurovascular intact. Full, normal range of motion. Neuro: Awake and alert, GCS 15, oriented to person, place, time, and situation. Cranial nerves II-XII grossly intact. Motor strength 5/5 in all extremities. Sensory grossly intact. Cerebellar exam normal. Normal gait. Psych: Awake, alert, with orientation to person, place and time. Behavior, mood, and affect are within normal limits. 06:01 Constitutional: The patient appears in no acute distress, alert, awake, uncomfortable. 06:01 Abdomen/GI: Inspection: abdomen appears normal, Bowel sounds: normal, in all quadrants, Palpation: moderate abdominal tenderness, in all quadrants, Rectal exam: rectal tone normal, Stool: brown, guaiac negative, hemorrhoid(s), are not appreciated, mass, is not appreciated, swelling, is not appreciated, tenderness, that is mild, fecal impaction, is not appreciated, the exam is chaperoned by an wet process technician, Indicators: McBurney's point is not tender, Ritchie's sign is negative, Rovsing's sign is negative, Obturator sign is negative, Psoas sign is negative, Liver: no appreciated palpable abnormalities, Hernia: not appreciated. 06:17 ECG was reviewed by the Attending Physician. [facility] Vital Signs: 05:39 BP 121 / 86; Pulse 102; Resp 16; Temp 97.7(O); Pulse Ox 100% on R/A; Weight 71.21 kg jb4 (R); Height 5 ft. 2 in. (157.48 cm) (R); Pain 10/10; 08:00 BP 132 / 86; Pulse 93; Resp 16; Pulse Ox 100% ; bp 09:00 BP 119 / 66; Pulse 86; Resp 17; Pulse Ox 100% ; bp 05:39 Body Mass Index 28.72 (71.21 kg, 157.48 cm) jb4 MDM: 05:58 Patient medically screened. 7 07:20 Patient medically screened. bobbi 07:22 Differential diagnosis: acute coronary syndrome, cholecystitis, Cholelithiasis, bobbi diverticulitis, Hepatitis, non-specific abd pain, Peptic Ulcer Disease, urinary tract infection. Data reviewed: vital signs, nurses notes, lab test result(s), EKG, radiologic studies, CT scan. Data interpreted: teletypesetter monitor: rate is 102 beats/min, rhythm is regular, Pulse oximetry: on room air is 100 %. Test interpretation: by ED physician or midlevel provider: ECG, plain radiologic studies. Counseling: I had a detailed discussion with the patient and/or guardian regarding: the historical points, exam findings, and any diagnostic results supporting the discharge/admit diagnosis, lab results, radiology results. 09/18 06:00 Order name: Basic Metabolic Panel; Complete Time: 07:59 [facility] 09/18 06:00 Order name: CBC with Diff; Complete Time: 07:21 [facility] 09/18 06:00 Order name: Hepatic Function; Complete Time: 07:59 [facility] 09/18 06:00 Order name: Lipase; Complete Time: 07:59 [facility] 09/18 06:52 Order name: Urine Dipstick--Ancillary (enter results); Complete Time: 07:59 [facility] 09/18 06:52 Order name: Urine --Ancillary (enter results); Complete Time: 07:59 [facility] 09/18 07:01 Order name: CT Abd/Pelvis - PO and IV Contrast [facility] 09/18 06:00 Order name: IV Saline Lock; Complete Time: 07:03 [facility] 09/18 06:00 Order name: Labs collected and sent; Complete Time: 07:03 [facility] 09/18 06:00 Order name: Urine Dipstick-Ancillary (obtain specimen); Complete Time: 07:03 [facility] 09/18 06:00 Order name: Urine Test (obtain specimen); Complete Time: 07:03 [facility] 09/18 06:00 Order name: EKG - Nurse/Tech; Complete Time: 06:30 mh7 EC:17 Rate is 89 beats/min. Rhythm is regular, Normal Sinus Rhythm. QRS [place] is Normal. NE mh7 interval is normal. QRS interval is normal. QT interval is normal. No Q waves. T waves are Normal. No ST changes noted. Clinical impression: Normal ECG. Administered Medications: 06:50 Drug: Pepcid 20 mg Route: IVP; Site: right antecubital; jb4 08:09 Follow up: Response: No adverse reaction bp 06:51 Drug: Zofran (Ondansetron) 4 mg Route: IVP; Site: right antecubital; jb4 08:09 Follow up: Response: Nausea is decreased bp 06:54 Drug: NS 0.9% 1000 ml Route: IV; Rate: 1000 ml; Site: right antecubital; jb4 06:54 Drug: morphine 4 mg Route: IVP; Site: right antecubital; jb4 08:09 Follow up: Response: Pain is decreased bp 07:45 Drug: Lactulose 30 grams Volume: 45 ml; Route: PO; bp 08:48 Follow up: Response: No adverse reaction bp 07:45 Drug: Dulcolax Suppository 10 mg Route: [place]; bp 08:49 Follow up: Response: No adverse reaction bp 08:15 Drug: NS 0.9% 1000 ml Route: IV; Rate: 1 bolus; Site: right antecubital; bp 09:15 Follow up: IV Status: Completed infusion iw 08:15 Drug: Rocephin 1 grams Route: IV; Rate: per protocol; Site: right antecubital; bp 08:15 Drug: Insulin Regular Human 10 units {Co-Signature: aa5 (Amelia Monroy RN).} Route: bp IVP; Site: right antecubital; 08:49 Follow up: Response: No adverse reaction bp 08:48 Drug: Zofran (Ondansetron) 4 mg Route: IVP; Site: right antecubital; bp 08:49 Follow up: Response: No adverse reaction bp 10:10 Drug: Lactulose 30 grams Volume: 45 ml; Route: PO; bp Point of Care Testing: Guaiac: 05:58 Stool Guaiac: Negative; Stool Hemoccult Control: Pass; mw2 Disposition: 09/18/20 10:04 Discharged to Home. Impression: Constipation - impaction, Abdominal tenderness, Type 1 diabetes mellitus, Left sided colitis with other complication - impaction. - Condition is Stable. - Discharge Instructions: Abdominal Pain, Adult, Constipation, Adult, Type 1 Diabetes Mellitus, Diagnosis, Adult, Constipation, Adult, [id number], Abdominal Pain, Adult, Etce-oc-Qftn, Type 1 Diabetes Mellitus, Diagnosis, Adult, Bheo-sb-Rihw. - Prescriptions for Augmentin 875- 125 mg Oral Tablet - take 1 tablet by ORAL route every 12 hours for 7 days; 14 tablet. Lactulose 10 gram/15 mL Oral Solution - take 30 milliliters by ORAL route every 12 hours; 300 milliliter. Miralax 17 gram/dose Oral - take 1 packet by ORAL route once daily dilute powder in 8 ounces of water or juice; 14 packet. Dulcolax 10 mg Rectal Suppository - insert 1 suppository by RECTAL route every 12 hours As needed; 12 suppository. - Medication Reconciliation Form, Thank You Letter, Antibiotic Education, Prescription Opioid Use form. - Follow up: Private Physician; When: 2 - 3 days; Reason: Recheck today's complaints, Continuance of care, Re-evaluation by your physician. Follow up: Torri Angel; When: 2 - 3 days; Reason: Recheck today's complaints, Re-evaluation by your physician. - Problem is new. - Symptoms have improved. Signatures: Dispatcher [employer] EDRashad Hutchison MD MD cha Williams, Irene, RN RN iw Alejandro Dhillon RN RN jb4 Ad Mancilla, VÍCTOR RN Papito Jorgensen MD MD mh7 Amelia Monroy RN aa5 Corrections: (The following items were deleted from the chart) 11:28 10:04 09/18/2020 10:04 Discharged to Home. Impression: Constipation - impaction; iw Abdominal tenderness; Type 1 diabetes mellitus; Left sided colitis with other complication - impaction. Condition is Stable. Discharge Instructions: Abdominal Pain, Adult, Constipation, Adult, Type 1 Diabetes Mellitus, Diagnosis, Adult, Constipation, Adult, Qqfq-rk-Ortn, Abdominal Pain, Adult, Yvfz-gt-Uncc, Type 1 Diabetes Mellitus, Diagnosis, Adult, Huwz-mk-Euzl. Prescriptions for Augmentin 875-125 mg Oral Tablet - take 1 tablet by ORAL route every 12 hours for 7 days; 14 tablet, Lactulose 10 gram/15 mL Oral Solution - take 30 milliliter by ORAL route once daily; 300 milliliter, Miralax 17 gram/dose Oral - take 1 packet by ORAL route once daily dilute powder in 8 ounces of water or juice; 14 packet. and Forms are Medication Reconciliation Form, Thank You Letter, Antibiotic Education, Prescription Opioid Use. Follow up: Private Physician; When: 2 - 3 days; Reason: Recheck today's complaints, Continuance of care, Re-evaluation by your physician. Follow up: Torri Angel; When: 2 - 3 days; Reason: Recheck today's complaints, Re-evaluation by your physician. Problem is new. Symptoms have improved. bobbi
--- NOTE | 2020-09-18 10:05 | ER ---
Nurse's Notes [facility] Name: Ara Plunkett Age: 35 yrs Sex: Female : 1985 Arrival Date: 09/18/2020 Time: 05:30 Bed 15 Private MD: Diagnosis: Constipation-impaction;Abdominal tenderness;Type 1 diabetes mellitus;Left sided colitis with other complication-impaction Presentation: 09/18 05:39 Chief complaint: Patient states: I am constipated and have been trying to have a bowel jb4 movement since 5pm yesterday. Now it has become very painful and I still haven't passed a bowel movement. Coronavirus screen: Client denies travel out of the [place] in the last 14 days. Ebola Screen: Patient negative for fever greater than or equal to 101.5 degrees Fahrenheit, and additional compatible Ebola Virus Disease symptoms. Initial Sepsis Screen: Does the patient meet any 2 criteria? HR > 90 bpm. Yes Does the patient have a suspected source of infection? Yes: Acute abdominal pain. Risk Assessment: Do you want to hurt yourself or someone else? Patient reports no desire to harm self or others. Onset of symptoms was September 17, 2020. Care prior to arrival: None. Transition of care: patient was not received from another setting of care. 05:39 Method Of Arrival: Ambulatory jb4 05:39 Acuity: CHARISSA 3 jb4 Historical: - Allergies: 05:39 Flagyl; jb4 05:39 Bactrim; jb4 05:39 steroids; jb4 05:39 Toradol; jb4 - Home Meds: 05:39 metformin 1,000 mg Oral tab 1 tab three times a day [Active]; jb4 - PMHx: 05:39 Diabetes - NIDDM; jb4 - PSHx: 05:39 None; jb4 - Immunization history:: Adult Immunizations up to date. - Social history:: Smoking status: Patient reports the use of cigarette tobacco products, smokes one pack cigarettes per day. Patient/guardian denies using alcohol, street drugs. Screenin:43 Abuse screen: Denies threats or abuse. Nutritional screening: No deficits noted. jb4 Tuberculosis screening: No symptoms or risk factors identified. Fall Risk None identified. Assessment: 05:42 General: Appears in no apparent distress. uncomfortable, Behavior is calm, cooperative, jb4 appropriate for age. Pain: Complains of pain in abdomen Pain does not radiate. Pain currently is 10 out of 10 on a pain scale. Quality of pain is described as crampy. Neuro: Level of Consciousness is awake, alert, obeys commands, Oriented to person, place, time, situation. Cardiovascular: Patient's skin is warm and dry. Respiratory: Airway is patent Respiratory effort is even, unlabored, Respiratory pattern is regular, symmetrical. GI: Abdomen is flat, non-distended. : No signs and/or symptoms were reported regarding the genitourinary system. EENT: No signs and/or symptoms were reported regarding the EENT system. Derm: Skin is intact, Skin is pink, warm \T\ dry. Musculoskeletal: Circulation, motion, and sensation intact. Range of motion: intact in all extremities. 07:00 Reassessment: Patient appears in no apparent distress at this time. Patient and/or bp family updated on plan of care and expected duration. Pain level reassessed. RECD REPORT FROM YANDEL RENEE. 35YO WF P/W CONSTIPATION. CT PENDING. 07:45 Reassessment: PO CONTRAST COMPLETE, CT NOTIFIED. bp 09:00 Reassessment: PT IN CT. PT MEDICATED FOR NAUSEA. bp 10:10 Reassessment: D/C ON HOLD FOR MEDICATION EFFICACY. bp 11:08 Reassessment: pt remains in bathroom at this time. iw Vital Signs: 05:39 BP 121 / 86; Pulse 102; Resp 16; Temp 97.7(O); Pulse Ox 100% on R/A; Weight 71.21 kg jb4 (R); Height 5 ft. 2 in. (157.48 cm) (R); Pain 10/10; 08:00 BP 132 / 86; Pulse 93; Resp 16; Pulse Ox 100% ; bp 09:00 BP 119 / 66; Pulse 86; Resp 17; Pulse Ox 100% ; bp 05:39 Body Mass Index 28.72 (71.21 kg, 157.48 cm) jb4 ED Course: 05:30 Patient arrived in ED. cl3 05:35 Papito Castro MD is Attending Physician. mh7 05:39 Alejandro Dhillon, VÍTCOR is Primary Nurse. jb4 05:39 Arm band placed on right wrist. jb4 05:41 Triage completed. jb4 05:43 Patient has correct armband on for positive identification. Placed in gown. Bed in low jb4 position. Call light in reach. Side rails up X 1. Pulse ox on. NIBP on. 06:52 Inserted saline lock: 20 gauge in right antecubital area, using aseptic technique. oe Blood collected. 07:01 Primary Nurse role handed off by Alejandro Dhillon, VÍCTOR bp 07:01 Ad Mancilla, RN is Primary Nurse. bp 07:19 Attending Physician role handed off by Papito Castro MD bobbi 07:19 Rashad Melgoza MD is Attending Physician. bobbi 08:54 CT Abd/Pelvis - PO and IV Contrast In Process Unspecified. EDMS 10:03 Torri Angel MD is Referral Physician. bobbi 11:27 No provider procedures requiring assistance completed. IV discontinued, intact, iw bleeding controlled, No redness/swelling at site. Pressure dressing applied. Administered Medications: 06:50 Drug: Pepcid 20 mg Route: IVP; Site: right antecubital; jb4 08:09 Follow up: Response: No adverse reaction bp 06:51 Drug: Zofran (Ondansetron) 4 mg Route: IVP; Site: right antecubital; jb4 08:09 Follow up: Response: Nausea is decreased bp 06:54 Drug: NS 0.9% 1000 ml Route: IV; Rate: 1000 ml; Site: right antecubital; jb4 06:54 Drug: morphine 4 mg Route: IVP; Site: right antecubital; jb4 08:09 Follow up: Response: Pain is decreased bp 07:45 Drug: Lactulose 30 grams Volume: 45 ml; Route: PO; bp 08:48 Follow up: Response: No adverse reaction bp 07:45 Drug: Dulcolax Suppository 10 mg Route: [place]; bp 08:49 Follow up: Response: No adverse reaction bp 08:15 Drug: NS 0.9% 1000 ml Route: IV; Rate: 1 bolus; Site: right antecubital; bp 09:15 Follow up: IV Status: Completed infusion iw 08:15 Drug: Rocephin 1 grams Route: IV; Rate: per protocol; Site: right antecubital; bp 08:15 Drug: Insulin Regular Human 10 units {Co-Signature: aa5 (Amelia Monroy RN).} Route: bp IVP; Site: right antecubital; 08:49 Follow up: Response: No adverse reaction bp 08:48 Drug: Zofran (Ondansetron) 4 mg Route: IVP; Site: right antecubital; bp 08:49 Follow up: Response: No adverse reaction bp 10:10 Drug: Lactulose 30 grams Volume: 45 ml; Route: PO; bp Point of Care Testing: Guaiac: 05:58 Stool Guaiac: Negative; Stool Hemoccult Control: Pass; mw2 Outcome: 10:04 Discharge ordered by . bobbi 11:28 Discharged to home ambulatory. iw 11:28 Condition: good 11:28 Discharge instructions given to patient, Instructed on discharge instructions, follow up and referral plans. medication usage, Demonstrated understanding of instructions, follow-up care, medications, Prescriptions given X 4. 11:28 Patient left the ED. iw Signatures: Dispatcher [employer] EDMS Rashad Melgoza MD MD cha Williams, Irene, RN RN Alejandro Dhillon RN RN jb4 Mars Reis Brian, RN RN Ingrid Rios mw2 Alexander Cooper cl3 Papito Castro MD MD mh7 Amelia Monroy RN aa5
[2020-09-18 11:33] VITALS: TEMP 97.7; O2SAT 100
[2020-09-18 11:36] VITALS: BP 119/66
== END 2020-09-18 11:28 | disposition home or self-care (01) ==
LOC: ER 05:28
DX: K56.41 Fecal impaction (principal); K51.518 Left sided colitis with other complication; E13.9 Other specified diabetes mellitus without complications; F17.210 Nicotine dependence, cigarettes, uncomplicated; Z88.1 Allergy status to other antibiotic agents; Z88.5 Allergy status to narcotic agent; Z88.8 Allergy status to other drugs, medicaments and biological substances
CPT/HCPCS: 36415; 74177; 80048; 80076; 81003; 81025; 83690; 85025; 93005; 96361; 96374; 96375; 99284; J0696; J2405; J7030; Q9967

== ENCOUNTER 2020-10-03 12:43 | Emergency (ER) | payer SELFPAY ==
--- OUTSIDE RECORDS SUMMARY | 2020-10-03 12:45 | XMS REPORT | Clinical Summary ---
:1985 Author Organization [facility] Address [address] [place] [address] Care Team Providers Name Role Phone Asked, No Pcp Primary Care Provider Unavailable Allergies Active Allergy Reactions Severity Noted Date Comments Sulfamethoxazole-Trimethoprim Hives 09/29/2020 Metronidazole Hives 09/29/2020 Ketorolac Hives 09/29/2020 Medications Medication Sig Dispensed Refills Start Date End Date Status metFORMIN (GLUCOPHAGE) Take 500 mg by 0 Active 500 mg tablet mouth 2 (two) times a day with meals. Active Problems Not on file Encounters Date Type Specialty Care Team Description 09/29/2020 Emergency Emergency Medicine Ezra Persaud (Primary Dx); MD Donny Chest pain, uns pecified type; Hyperglycemia; History of diab etes mellitus; Thrombocytosis (HCC) after 10/03/2019 Surgical History Surgery Date Site/Laterality Comments NO PAST SURGERIES Medical History Medical History Date Comments Diabetes mellitus (HCC) Gallstones Social History Tobacco Use Types Packs/Day Years Used Date Current Every Day Smoker Smokeless Tobacco: Never Used Alcohol Use Drinks/Week oz/Week Comments Not Currently Sex Assigned at Date Recorded Not on file Last Filed Vital Signs Vital Sign Reading Time Taken Comments Blood Pressure 145/81 09/29/2020 7:00 PM [employer]STRUMENTATION MECHANIC Pulse 83 09/29/2020 7:00 PM [employer]ICAL AND INSTRUMENTATION MECHANIC Temperature 36.6 C (97.9 F) 09/29/2020 2:23 PM [employer] AND INSTRUMENTATION MECHANIC Respiratory Rate 16 09/29/2020 7:00 PM [employer] AND INSTRUMENTATION MECHANIC Oxygen Saturation 99% 09/29/2020 7:00 PM [employer] AND INSTRUMENTATION MECHANIC Inhaled Oxygen Concentration - - Weight 71.2 kg (157 lb) 09/29/2020 2:19 PM [employer]ICAL AND INSTRUMENTATION MECHANIC Height 157.5 cm (5' 2") 09/29/2020 2:19 PM [employer] AND INSTRUMENTATION MECHANIC Body Mass Index 28.72 09/29/2020 2:19 PM [employer] AND INSTRUMENTATION MECHANIC Plan of Treatment Health Maintenance Due Date Last Done Comments CERVICAL CANCER SCREENING 2004 INFLUENZA VACCINE 06/24/2020 Procedures Procedure Name Priority Date/Time Associated Comments Diagnosis POC GLUCOSE Routine 09/29/2020 7:13 Results for this PM [employer]UMENTATION [employer]CHANIC procedure are i n the results section. TROPONIN Timed 09/29/2020 6:54 Results for this PM [employer]STRUMENTATION MECHANIC procedure are i n the results section. CT RENAL STONE PROTOCOL STAT 09/29/2020 5:17 Results for this PM [employer]STRUMENTATION [employer]CHANIC procedure are i n the results section. HCG QUALITATIVE, URINE STAT 09/29/2020 4:13 R esults for this SCREEN PM [employer] INSTRUMENTATION MECHANIC procedure are i n the results section. URINALYSIS SCREEN AND STAT 09/29/2020 4:13 Re sults for this MICROSCOPY, WITH REFLEX PM [employer] INSTRUMENTATION MECHANIC proc edure are in TO CULTURE the results section. TROPONIN, I-STAT STAT 09/29/2020 4:09 Results for this PM [employer]STRUMENTATION [employer]CHANIC procedure are i n the results section. LIPASE LEVEL STAT 09/29/2020 4:09 Results for this PM [employer]STRUMENTATION [employer]CHANIC procedure are i n the results section. CREATINE KINASE, TOTAL STAT 09/29/2020 4:09 R esults for this (CPK) PM [employer]STRUMENTATION MECHANIC procedure are i n the results section. ESTIMATED GFR STAT 09/29/2020 4:09 Results fo r this PM [employer]STRUMENTATION MECHANIC procedure are i n the results section. HC COMPLETE BLD COUNT STAT 09/29/2020 4:09 Re sults for this W/AUTO DIFF PM [employer] INSTRUMENTATION MECHANIC procedure are i n the results section. B NATRIURETIC PEPTIDE STAT 09/29/2020 4:09 Re sults for this PM [employer]STRUMENTATION MECHANIC procedure are i n the results section. COMPREHENSIVE METABOLIC STAT 09/29/2020 4:09 Results for this PANEL PM [employer] INSTRUMENTATION MECHANIC procedure are i n the results section. XR CHEST 1 VW PORTABLE STAT 09/29/2020 4:01 R esults for this PM [employer]UMENTATION MECHANIC procedure are i n the results section. ECG ED PRELIMINARY Routine 09/29/2020 2:33 Resul ts for this INTERPRETATION PM [employer] INSTRUMENTATION MECHANIC procedure are in the results section. ECG 12-LEAD STAT 09/29/2020 2:09 Results for this PM [employer]STRUMENTATION MECHANIC procedure are i n the results section. after 10/03/2019 Results POC glucose (09/29/2020 7:13 PM ELECTRICAL AND INSTRUMENTATION MECHANIC) Pathologist Sig nature POC glucose 207 (H) 65 - 99 mg/dL [facility] Comment: [facility] Palaeontologist Name: [facility] Device ID: [id number] Chartable: Notified nurse Specimen Blood Performing Organization Address City/State/ZIP Code Phon e Number [facility] DEPARTMENT OF , [address] [place] [address] 5 PATHOLOGY AND GENOMIC MEDICINE [facility] THE [address] [facility] [address] Troponin (09/29/2020 6:54 PM ELECTRICAL AND INSTRUMENTATION MECHANIC) Troponin <0.006 0.000 - 0.040 [place] Comment: ng/mL [facility] In patients suspected of having a myocardial inf arction, along with all HOSPITAL other appropriate clinical measures and actions includ ing ECG and other diagnostics as appropriate, measure Ultra TnI at 0 hrs and at 3 hrs. Myocardial infarction VERY LIKELY The 0 hr TnI level is > 0.10 ng/mL Myocardial infarction LIKELY The 0 hr TnI level is > 0.04 ng/mL and 3 hr level is i ncreased or decreased by at least 0.020 ng/mL Myocardial infarction VERY UNLIKELY Both the 0 hr and 3 hr TnI levels <= 0.04 ng/mL(within normal limits) OR 0 hr is > 0.04 ng/mL and 3 hr is increased OR decreased by less than 0.020 ng/mL Specimen Plasma Performing Organization Address City/State/ZIP Code Phon e Number [facility] DEPARTMENT OF , [address] [place] [address] 5 PATHOLOGY AND GENOMIC MEDICINE [facility] THE [address] [facility] [address] CT Renal Stone Protocol (09/29/2020 5:17 PM ELECTRICAL AND INSTRUMENTATION MECHANIC) Specimen Narrative Performed At Examination: CT RENAL STONE PROTOCOL [facility] Clinical history: flank pain, abd pain Comparison: None Technique: Multiple computerized axial tomographic rafy ges were obtained of the abdomen and pelvis without IV or enteric contra st according to renal calculus protocol.Sagittal and coronal computeri zed reformatted images were also obtained. CT scans are performed using radiation dose reduction techniques. Technical factors are evaluated and adjusted to ensu re appropriate moderation of exposure. Automated dose management te chnology is applied to adjust radiation exposure whi le achieving a diagnostic quality image. IMPRESSION: The visualized lung bases are clear. Abdomen: 1. There is no evidence of renal or ur eteral calculus or obstruction. 2. Limited evaluation of the unenhanced liver, splee n, adrenal glands, and pancreas is otherwise grossly unremarkable, though not considered to diagnostic standards given specialized n oncontrast protocol. 3. Multiple gallstones are present. The pancreatic a nd biliary ducts are not dilated. The abdominal aorta is normal caliber . The bowel is not dilated. There is no evidence of acute a ppendicitis. 4. There is no significant abdominal w all defect, hernia, or abscess. Pelvis: The unenhanced uterus and bladder are grossly unremark able. Multiple phleboliths are scattered throughout the pelvis. There is no acute osseous pathology. CONCLUSION: No evidence of renal or ureteral calculus or obstructi on. Please see above. [facility]-[id number] Procedure Note Interface, Radiology Results Incoming - 09/29/2020 5:46 PM ELECTRICAL AND INSTRUMENTATION MECHANIC Examination: CT RENAL STONE PROTOCOL Clinical history: flank pain, abd pain Comparison: None Technique: Multiple computerized axial t omographic images were obtained of the abdomen and pelvis without IV or enteric contrast according to renal calculus protocol.Sagittal and coronal computerized reformatted images were also obtained. CT scans are performed using radiation d ose reduction techniques. Technical factors are evaluated and adjusted to ensure appropriate moderation of exposure. Automated dose management technology is applied to adjust radiation exposure while achie ving a diagnostic quality image. IMPRESSION: The visualized lung bases are clear. Abdomen: 1. There is no evidence of renal or ure teral calculus or obstruction. 2. Limited evaluation of the unenhanced liver, spleen, adrenal glands, and pancreas is otherwise grossly unremarkable, though not considered to diagnostic standards given specialized noncontrast protocol. 3. Multiple gallstones are present. The pancreatic and biliary ducts are not dilated. The abdominal aorta is normal caliber. The bowel is not dilated. There is no evidence of acute appendicitis. 4. There is no significant abdominal wa ll defect, hernia, or abscess. Pelvis: The unenhanced uterus and bladder are gr ossly unremarkable. Multiple phleboliths are scattered throughout the pelvis. There is no acute osseous pathology. CONCLUSION: No evidence of renal or ureteral calculu s or obstruction. Please see above. [facility]-[id number] Performing Organization Address City/State/ZIP Code Phon e Number [facility] [address] [place] [address] Urinalysis screen and microscopy, with reflex to culture (09/29/2020 4:13 PM ELECTRICAL AND INSTRUMENTATION MECHANIC) Specimen site Clean catch [facility] Color, UA Yellow [facility] Appearance, UA Clear [facility] Specific gravity, UA 1.028 1.001 - 1.035 [facility] pH, UA 5.0 5.0 - 8.5 [facility] Protein, UA 1+ (A) Negative [facility] Glucose, UA 3+ (A) Negative [facility] Ketones, UA Trace (A) Negative [facility] Bilirubin, UA Negative Negative [facility] Blood, UA Negative Negative [facility] Nitrite, UA Negative Negative [facility] Urobilinogen, UA <2.0 <2.0 [facility] Leukocyte esterase, Negative Negative [facility] Epithelial cells, UA 1 /HPF [facility] WBC, UA 2 0 - 5 /HPF [facility] RBC, UA 1 0 - 5 /HPF [facility] Yeast, UA None seen [facility] Yeast with None seen [facility] pseudohyphae, [facility] Specimen Urine Performing Organization Address City/State/ZIP [place] [address], [address] [place] [address] 5 PATHOLOGY AND GENOMIC MEDICINE [facility] THE [address] [address] [facility] [address] hCG qualitative, urine screen (09/29/2020 4:13 PM ELECTRICAL AND INSTRUMENTATION MECHANIC) Pathologist [facility] hCG qualitative, NegativeComment: [facility] [place] urine Sensitivity of HCG [facility] test: 25 mIU/ml HOSPITAL Specimen Urine Performing Organization Address City/[facility]/ZIP Code Phon e Number [facility] [place] [address], [address] [place] [address] 5 PATHOLOGY AND GENOMIC MEDICINE [place] [address] [address] [place] [address] Estimated GFR (09/29/2020 4:09 PM ELECTRICAL AND INSTRUMENTATION MECHANIC) Pathologist [facility] Estimated GFR >=90 mL/min/1.73 [place] Comment: m2 JEW THE Catergory Units Interpretation [facility] G1 >=90 Normal or high HOSPITAL G2 60-89 Mildly decreased G3a 45-59 Mildly to moderately decreas ed G3b 30-44 Moderately to severely decre ased G4 15-29 Severely decreased G5 <15 Kidney failure The eGFR was calculated using the Chronic Kidney Disea se Epidemiology Collaboration (CKD-EPI) equation. Interpretation is based on recommendations of the National Kidney Foundation-Kidney Disease Outcomes Vignesh lity Initiative (NKF-KDOQI) published in 2014. Specimen Plasma Performing Organization Address City/[facility] Phon e Number [facility] DEPARTMENT OF [facility], [address] [place] [address] 5 PATHOLOGY AND GENOMIC MEDICINE [place] [address] [address] [place] [address] Troponin, I-Stat (09/29/2020 4:09 PM ELECTRICAL AND INSTRUMENTATION MECHANIC) Pathologist [facility] Troponin, I-Stat 0.00 0.00 - 0.08 [place] Comment: ng/mL [facility] THE 0.09 - 1.49 ng/ml May indicate increa sed risk of acute [facility] coronary syndrome. HOSPITAL >=1.5 ng/ml Consistent with acute myocardial infarction. The diagnostic value of a single normal or non-diagnos tic result is questionable. Serial samples at 2-6 hour i ntervals are required to rule out acute myocardial injury. Specimen Plasma Performing Organization Address City/[facility]/ZIP Code Phon e Number [facility] [place] [address], [address] [place] [address] 5 PATHOLOGY AND GENOMIC MEDICINE [place] [address] [address] [place] [address] CBC with platelet and differential (09/29/2020 4:09 PM ELECTRICAL AND INSTRUMENTATION MECHANIC) WBC 12.08 (H) 4.50 - 11.00 [place] k/uL [facility] RBC 4.84 4.20 - 5.50 [place] m/uL [facility] HGB 14.6 12.0 - 16.0 [place] g/dL [facility] HCT 42.6 37.0 - 47.0 % [facility] MCV 88.0 82.0 - 100.0 [place] fL [facility] MCH 30.2 27.0 - 34.0 pg [facility] MCHC 34.3 31.0 - 37.0 [place] g/dL [facility] RDW - SD 39.1 37.0 - 55.0 fL [facility] MPV 9.7 8.8 - 13.2 fL [facility] Platelet count 541 (H) 150 - 400 k/uL [facility] Nucleated RBC 0.00 /100 WBC [facility] Neutrophils 80.3 (H) 39.0 - 69.0 % [facility] Lymphocytes 14.8 (L) 25.0 - 45.0 % [facility] Monocytes 3.3 0.0 - 10.0 % [facility] Eosinophils 0.9 0.0 - 5.0 % [facility] Basophils 0.5 0.0 - 1.0 % [facility] Immature granulocytes 0.2Comment: 0.0 - 1.0 % [place] "Immature [facility] granulocytes"[facility] (promyelocytes HOSPITAL , myelocytes, metamyelocytes ) Specimen Plasma Performing Organization Address City/State/ZIP Code Phon e Number [facility] [place] [address], [address], [place] [address] 5 PATHOLOGY AND GENOMIC MEDICINE [facility] [address] [address] [facility] [address] B natriuretic peptide (09/29/2020 4:09 PM ELECTRICAL AND INSTRUMENTATION MECHANIC) Pathologist Sig nature BNP 36 0 - 100 pg/mL [facility] Specimen Blood Performing Organization Address City/State/ZIP Code Phon e Number [facility] [place] [address], [address] [place] [address] 5 PATHOLOGY AND GENOMIC MEDICINE [facility] THE [address] [address] [facility] [address] Lipase level (09/29/2020 4:09 PM ELECTRICAL AND INSTRUMENTATION MECHANIC) Pathologist Sig nature Lipase 32 13 - 60 U/L [facility] Specimen Plasma Performing Organization Address City/[facility] Phon e Number [facility] [place] [address], [address] [place] [address] 5 PATHOLOGY AND GENOMIC MEDICINE [facility] THE [address] [facility] [address] Creatine kinase, total (CPK) (09/29/2020 4:09 PM ELECTRICAL AND INSTRUMENTATION MECHANIC) Pathologist Sig nature Creatine kinase 39 26 - 192 U/L [facility] Specimen Plasma Performing Organization Address [facility] Phon e Number [facility] [place] [address], [address] [place] [address] 5 PATHOLOGY AND GENOMIC MEDICINE [facility] THE [address] [facility] [address] Comprehensive metabolic panel (09/29/2020 4:09 PM ELECTRICAL AND INSTRUMENTATION MECHANIC) Sodium 136 135 - 148 [place] mEq/L [facility] Potassium 3.3 (L) 3.5 - 5.0 [place] mEq/L [facility] Chloride 101 98 - 112 [place] mEq/L [facility] CO2 24 24 - 31 mEq/L [facility] Anion gap 11 7 - 15 mEq/L [facility] BUN 5 (L) 6 - 20 mg/dL [facility] Creatinine 0.62 0.50 - 0.90 [place] mg/dL [facility] Glucose 289 (H) 65 - 99 mg/dL [facility] Calcium 9.5 8.3 - 10.2 [place] mg/dL [facility] Protein 8.3 6.3 - 8.3 [place] Comment: g/dL [facility] Dewitt 4.6-7.0 g/dL HOSPITAL 1 week 4.4-7.6 g/dL 7 months-1year 5.1-7.3 g/dL 1-2 years 5.6-7.5 g/dL >3 years 6.0-8.0 g/dL 18-150 6.3-8.3 g/dL Albumin 4.1 3.5 - 5.0 [place] g/dL [facility] A/G ratio 1.0 0.7 - 3.8 [facility] Alkaline phosphatase 117 (H) 35 - 104 U/L [facility] AST 20 10 - 35 U/L [facility] ALT 7 5 - 50 U/L [facility] Total bilirubin 0.5 0.0 - 1.2 [place] mg/dL [facility] Specimen Plasma Performing Organization Address City/State/ZIP Code [place] [address], [address] [place] [address] 5 PATHOLOGY AND GENOMIC MEDICINE [facility] THE [address] [address] [facility] [address] XR Chest 1 Vw Portable (09/29/2020 4:01 PM ELECTRICAL AND INSTRUMENTATION MECHANIC) Specimen Narrative Performed At EXAMINATION: XR CHEST 1 VW PORTABLE [facility] CLINICAL HISTORY:35 years Female ches t pain [facility] COMPARISON: None IMPRESSION: Cardiomediastinal silhouette and pulmonary vasculature are within normal limits. Lungs are clear. Bones are unr emarkable. [facility]-[id number] Procedure Note Hm Interface, Radiology Results Incoming - 09/29/2020 4:07 PM ELECTRICAL AND INSTRUMENTATION MECHANIC EXAMINATION: XR CHEST 1 VW PORTABLE CLINICAL HISTORY:35 years Female chest pain [facility] COMPARISON: None IMPRESSION: Cardiomediastinal silhouette and pulmona ry vasculature are within normal limits. Lungs are clear. Bones are unremarkable. [id number] Performing Organization Address City/State/ZIP Code Phon e Number [facility] [address] [place] [address] ECG ED Preliminary Interpretation - Not an Order (09/29/2020 2:33 PM ELECTRICAL AND INSTRUMENTATION MECHANIC) Narrative Performed At Ezra Persaud MD 09/30/2020 8:15 AM ECG ED Preliminary Interpretation - Not an Order Performed by: Ezra Persaud MD Authorized by: Ezra Persaud MD ECG reviewed by ED Physician in the abse nce of a tile and marble setter: yes Interpretation: Interpretation: normal Rate: ECG rate: 81 ECG rate assessment: normal Rhythm: Rhythm: sinus rhythm Ectopy: Ectopy: none QRS: QRS axis: Normal QRS intervals: Normal Conduction: Conduction: normal ST segments: ST segments: Normal T waves: T waves: non-specific ECG 12 lead (09/29/2020 2:09 PM ELECTRICAL AND INSTRUMENTATION MECHANIC) Pathologist Sig nature Ventricular rate 81 [facility] Atrial rate 81 [facility] MO interval 138 [facility] QRSD interval 88 [facility] QT interval 390 [facility] QTC interval 453 [facility] P axis 1 29 [facility] QRS axis 1 70 [facility] T wave axis 24 [facility] EKG impression Normal sinus [facility] rhythm-Nonspecific T wave abnormality-Abnormal ECG-No previous ECGs available-Electronicall y Signed By Lake Lawson MD ([id number]) on 09/30/2020 9:08:53 AM Specimen Narrative Performed At This result has an attachment that is no t available. 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
--- OUTSIDE RECORDS SUMMARY | 2020-10-03 12:45 | XMS REPORT | Clinical Summary ---
:1985 Author Organization [facility] Address [address] [place] [address] Care Team Providers Name Role Phone Pcp [...] Signs Not on file Plan of Treatment Health Maintenance Due Date Last Done Comments PNEUMOCOCCAL VACCINE 0-64 YRS (1 of 1 - PPSV23) 1989 DIABETIC EYE EXAM 1993 DIABETIC FOOT EXAM 1993 URINE MICROALBUMIN 1993 LIPID PANEL 2003 CERVICAL CANCER SCREENING PAP ONLY (Age 21-65) 2004 HEMOGLOBIN A1C 04/04/2018 INFLUENZA VACCINE (#1) 2020 Results Not on fileafter 10/03/2019 Advance Directives For more information, please contact: [phone] Code Status Date Activated Date Inactivated Comments Full Code 04/04/2018 5:20 PM 04/09/2018 3:29 PM This code status was determined by: Patient
--- OUTSIDE RECORDS SUMMARY | 2020-10-03 12:46 | XMS REPORT | Summary of Care ---
:1985 Author Organization [facility] - [facility] Address [address] [place] [address] Care Team Providers Name Role Phone Pcp, Patient Does Not Have A Primary Care Provider +[id number] Reason for Referral MRI/CAT Scan (STAT) Status Reason Specialty Diagnoses / Referred By Referred To Procedures Contact Contact New Request Diagnostic Diagnoses Abdominal pain, unspecified abdominal location Mya Monte, Radiology Procedures CT ABDOMEN PELVIS W CONTRAST PAC [address] [place] [address] [place] [address] Reason for Visit Reason Comments LOW BACK PAIN Auth/Cert Status Reason Specialty Diagnoses / Referred By Referred To Procedures Contact Contact Emergency Medicine [facility] Em ergency Dept [address] [place] [address] Fax: Encounter Details Date Type Department Care Team Description 09/16/2020 Emergency ADC-Emergency Mya Monte, PAC Biliary calculus of other site without o bstruction (Primary Dx); Department [address] [place] [address] Abdominal pain, unspecified abdominal lo cation; [address] [place] [address] [phone] Type 2 diabetes mellitus with other spec ified complication, unspecified whether technician terminal and repeater insulin use Drive [phone] [place], [place] [address] [phone] Allergies Active Allergy Reactions Severity Noted Date [...] mellitus with other specified complication, unspecified whether mcc insulin use documented as of this encounter [...] fluids Zofran 4mg IV YOUR PRESCRIPTIONS AND [id number] MEDICATION RECOMMENDATIONS: Patient's Medications START taking these [...] IMPROVEMENT IN SYMPTOMS. TO FOLLOW-UP WITHIN THE [facility], TRY THESE OPTIONS (CLINIC APPOINTMENTS AVAILABLE ON [id number] BASIS): 1. SCHEDULE AN APPOINTMENT ONLINE AT [email or web address] 2. OR CALL THE [facility] AT OR 3. OR CALL YOUR [facility] PHYSICIAN'S OFFICE DIRECTLY IF YOU ARE ALREADY AN ESTABLISHED [facility] PATIENT. OR, YOU MAY FOLLOW-UP WITH A PROVIDER OF YOUR CHOICE, SUCH : 1. A PHYSICIAN OF YOUR CHOICE 2. [facility], . LOCATIONS IN [facility] 3. [facility], [address], [place]; [phone] RETURN TO ER FOR WORSENING OF SYMPTOMS. AttachmentsThe following attachments cannot be sent through Care Everywhere. Abdominal Pain, Adult (Singaporean)Gallstones, Discharge Instructions (Singaporean) documented in this encounter ED Notes Shasha [...] Abdominal pain, Re sults for this PANEL (39001) CDT unspecified procedure are in abdominal location [...] GLU 377 (H) 70 - 110 mg/dL [facility] Specimen Blood Performing Organization Address City/State/Zipcode Phone Number [facility] CLIA: [id number] [place] [address] POCT Test (09/16/2020 12:50 AM CDT) Pathologist Sig nature POCT PREG negative On board controls acceptable present with C Line POCT PREG LOT # [id number] POCT PREG TEST DATE 02/21/2022 Specimen Urine - URINE, CLEAN CATCH Urinalysis (09/16/2020 12:38 AM CDT) Pathologist Sig nature APPEARANCE Clear Clear [facility] COLOR Straw (A) Yellow [facility] PH 6.0 4.8 - 8.0 [facility] SP GRAVITY 1.032 (H) 1.003 - 1.030 [facility] GLU U QUAL 500 mg/dL (A) Normal [facility] BLOOD Negative Negative [facility] KETONES Negative Negative [facility] PROTEIN Negative Negative [facility] UROBILIN Normal Normal [facility] BILIRUBIN Negative Negative [facility] NITRITE Negative Negative [facility] LEUK TANISHA Negative Negative [facility] RBC/HPF 3 0 - 3 HPF [facility] WBC/HPF <1 0 - 5 HPF [facility] BACTERIA Few (A) Negative [facility] SQ EPITH 1 HPF [facility] Specimen Urine - URINE, CLEAN CATCH Performing Organization Address City/[facility]/Zipcode Phone Number [facility] CLIA: [id number] [place] [address] Lipase, Serum (09/16/2020 12:38 AM CDT) Pathologist Sig [facility] LIPASE 104 0 - 220 U/L [facility] Specimen Blood - VENOUS Performing Organization Address City/[facility]/Zipcode Phone Number [facility] CLIA: [id number] [place] [address] LAB[address] [facility] CBC with Differential (09/16/2020 12:38 AM CDT) Pathologist Sig nature WBC 12.04 (H) 4.30 - 11.10 [facility] 10*3/L [facility] RBC 4.55 3.93 - 5.25 [facility] 10*6/L [facility] HGB 13.8 11.6 - 15.0 [facility] g/dL [facility] HCT 38.4 35.7 - 45.2 % [facility] MCV 84.4 80.6 - 95.5 fL [facility] MCH 30.3 25.9 - 32.8 pg [facility] MCHC 35.9 (H) 31.6 - 35.1 [facility] g/dL [facility] RDW-SD 36.2 (L) 39.0 - 49.9 fL [facility] RDW-CV 11.9 (L) 12.0 - 15.5 % [facility] PLT 474 (H) 166 - 358 [facility] 10*3/L [facility] MPV 9.7 9.5 - 12.9 fL [facility] NRBC/100 WBC 0.0 0.0 - 10.0 /100 [facility] WBCs [facility] NRBC x10^3 <0.01 10*3/L [facility] GRAN MAT (NEUT) % 66.1 % [facility] IMM GRAN % 0.40 % [facility] LYMPH % 24.0 % [facility] MONO % 6.1 % [facility] EOS % 2.7 % [facility] BASO % 0.7 % [facility] GRAN MAT x10^3(ANC) 7.96 (H) 1.88 - 7.09 [facility] 10*3/uL [facility] IMM GRAN x10^3 0.05 0.00 - 0.06 [facility] 10*3/uL HOSPITAL LABORATORY LYMPH x10^3 2.89 1.32 - 3.29 [facility] 10*3/uL [facility] MONO x10^3 0.73 0.33 - 0.92 [facility] 10*3/uL [facility] EOS x10^3 0.33 0.03 - 0.39 [facility] 10*3/uL [facility] BASO x10^3 0.08 (H) 0.01 - 0.[address]3/uL [facility] Specimen Blood - VENOUS Performing Organization Address City/State/Zipcode Phone Number [facility] CLIA: [id number] [place], [place] [id number] LABORATORY [address] Complete Metabolic Panel (09/16/2020 12:38 AM CDT) [facility] NA 132 (L) 135 - 145 [facility] mmol/L [facility] K 3.6 3.5 - 5.0 [facility] mmol/L [facility] CL 102 98 - 108 mmol/L [facility] CO2 TOTAL 21 (L) 23 - 31 mmol/L [facility] AGAP 9 2 - 16 [facility] BUN 7 7 - 23 mg/dL [facility] GLUCOSE 424 (H) 70 - 110 mg/dL [facility] CREATININE 0.59 0.50 - 1.04 [facility] mg/dL [facility] TOTAL BILI 0.5 0.1 - 1.1 mg/dL [facility] CALCIUM 9.4 8.6 - 10.6 [facility] mg/dL [facility] T PROTEIN 7.4 6.3 - 8.2 g/dL [facility] ALBUMIN 4.0 3.5 - 5.0 g/dL [facility] ALK PHOS 107 34 - 122 U/L [facility] ALTv 8 5 - 35 U/L [facility] AST(SGOT) 17 13 - 40 U/L [facility] eGFR Calculation 114.7 mL/min/1.73m2 [facility] [place]) eGFR Calculation 139.0 mL/min/1.73m2 [facility] () [facility] Specimen Blood - VENOUS Narrative Performed At [facility] of Glomerular Filtration Rate (GFR) [facility] and Staging of Kidney Disease* [...] tests). Performing Organization Address City/State/Zipcode Phone Number [facility] CLIA: [id number] [place] [address] documented in this encounter Visit Diagnoses Diagnosis Biliary calculus of other site without o bstruction - Primary Abdominal pain, unspecified abdominal lo cation Type 2 diabetes mellitus with other spec ified complication, unspecified whether mcc insulin use documented in this encounter Administered [...]
[2020-10-03] MEDS ORDERED: MORPHINE 2 MG/ML SYR ONE ×2 (15:55→18:12)
[2020-10-03] MEDS ORDERED: NA CHLORIDE 0.9% 1,000 ML ONE ×2 (15:55→16:11)
[2020-10-03] MEDS ORDERED: ONDANSETRON 4 MG/2 ML VIAL ONE (15:55)
[2020-10-03] MEDS ORDERED: FENTANYL CITR 100 MCG/2 ML ONE (16:11)
[2020-10-03 16:13] LABS: Absolute Lymphocytes (CBC) 2.7 K/uL (0.7-4.9); Basophils % 1.3 % (0-1.3); Hematocrit 39.8 % (36.0-45.0); Lymphocytes % 27.6 % (15.3-44.8); RBC Red Blood Cell Count 4.51 M/uL (3.86-4.86)
[2020-10-03 16:15] LABS: Urine Blood NEGATIVE (NEG); Urine Glucose 2+ (NEG); Urine Protein NEGATIVE (NEG)
[2020-10-03 16:24] LABS: ALT/SGPT 10 U/L (12-78); AST/SGOT 10 U/L (15-37); Albumin 3.6 g/dL (3.4-5.0); Alkaline Phosphatase 95 U/L (45-117); BUN Blood Urea Nitrogen 6 mg/dL (7-18); Bicarbonate 28 mmol/L (21-32); Bilirubin Direct < 0.1 mg/dL (0-0.2); Bilirubin Total 0.4 mg/dL (0.2-1.0); Glucose Level 302 mg/dL (74-106); Magnesium 1.5 mg/dL (1.8-2.4); Potassium 3.5 mmol/L (3.5-5.1); Protein, Total 7.6 g/dL (6.4-8.2); Sodium Level 140 mmol/L (136-145); Troponin (Emerg Dept Use Only) < 0.02 ng/mL (0.0-0.045)
[2020-10-03] MEDS ORDERED: MAGNESIUM SULFATE 1 gm IVPB 1 GM/100 ML BAG IV ONE (17:09)
[2020-10-03] MEDS ORDERED: LORazepam 2 MG/ML VIAL ONE (17:16)
--- NOTE | 2020-10-03 17:30 | RAD REPORT ---
EXAM DESCRIPTION: CT - Abdomen Pelvis Wo Contrast - 10/03/2020 5:15 pm CLINICAL HISTORY: Abdominal pain COMPARISON: August 2020 TECHNIQUE: Computed axial tomography of the abdomen and pelvis was obtained. IV and oral contrast we re not requested. All CT scans are performed using dose optimization technique as appropriate and may include automated exposure control or mA/KV adjustment according to patient size. FINDINGS: The evaluation of solid organs, vessels and bowel is limited secondary to the lack of con trast administration. The liver, spleen, pancreas, adrenals and kidneys appear grossly normal. The appendix is normal. There is no evidence of diverticulitis. Gallstones. No gallbladder wall thickening IMPRESSION: Cholelithiasis without evidence cholecystitis
--- NOTE | 2020-10-03 17:38 | RAD REPORT ---
EXAM DESCRIPTION: Laura Single View10/03/2020 4:33 pm CLINICAL HISTORY: Chest pain COMPARISON: April 2020 FINDINGS: The lungs appear clear of acute infiltrate. The heart is normal size IMPRESSION: No acute abnormalities displayed
--- NOTE | 2020-10-03 17:49 | EDPHYS ---
Physician Documentation [facility] Name: Ara Plunkett Age: 35 yrs Sex: Female : 1985 Arrival Date: 10/03/2020 Time: 13:23 Bed 17 Private MD: ZACHARY Physician Rashad Melgoza HPI: 10/03 15:30 This 35 yrs old Female presents to ER via Ambulatory with complaints of bobbi Dizziness. 15:30 The patient presents with feeling faint, generalized weakness. Onset: The bobbi symptoms/episode began/occurred 2 day(s) ago. 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 - Social history:: Smoking status: Patient reports the use of cigarette tobacco products, smokes one-half pack cigarettes per day. ROS: 15:32 Constitutional: Negative for fever, chills, and weight loss, Eyes: Negative for injury, bobbi pain, redness, and discharge, ENT: Negative for injury, pain, and discharge, Neck: Negative for injury, pain, and swelling, Cardiovascular: Negative for chest pain, palpitations, and edema, : Negative for injury, bleeding, discharge, and swelling, Skin: Negative for injury, rash, and discoloration, Neuro: Negative for headache, weakness, numbness, tingling, and seizure, Psych: Negative for depression, anxiety, suicide ideation, homicidal ideation, and hallucinations, Allergy/Immunology: Negative for hives, rash, and allergies, Endocrine: Negative for neck swelling, polydipsia, polyuria, polyphagia, and marked weight changes, Hematologic/Lymphatic: Negative for swollen nodes, abnormal bleeding, and unusual bruising. 15:32 Cardiovascular: Positive for chest pain, with cough. 15:32 Respiratory: Positive for pleurisy. 15:32 Abdomen/GI: Positive for abdominal pain. 15:42 MS/extremity: Positive for decreased range of motion, pain. bobbi Exam: 15:42 Constitutional: This is a well developed, well nourished patient who is awake, alert, bobbi and in no acute distress. Head/Face: Normocephalic, atraumatic. Eyes: Pupils equal round and reactive to light, extra-ocular motions intact. Lids and lashes normal. Conjunctiva and sclera are non-icteric and not injected. Cornea within normal limits. Periorbital areas with no swelling, redness, or edema. ENT: Nares patent. No nasal discharge, no septal abnormalities noted. Tympanic membranes are normal and external auditory canals are clear. Oropharynx with no redness, swelling, or masses, exudates, or evidence of obstruction, uvula midline. Mucous membranes moist. Neck: Trachea midline, no thyromegaly or masses palpated, and no cervical lymphadenopathy. Supple, full range of motion without nuchal rigidity, or vertebral point tenderness. No Meningismus. Chest/axilla: Normal chest wall appearance and motion. Nontender with no deformity. No lesions are appreciated. Respiratory: Lungs have equal breath sounds bilaterally, clear to auscultation and percussion. No rales, rhonchi or wheezes noted. No increased work of breathing, no retractions or nasal flaring. Female : Normal external genitalia. MS/ Extremity: Pulses equal, no cyanosis. Neurovascular intact. Full, normal range of motion. Neuro: Awake and alert, GCS 15, oriented to person, place, time, and situation. Cranial nerves II-XII grossly intact. Motor strength 5/5 in all extremities. Sensory grossly intact. Cerebellar exam normal. Normal gait. Psych: Awake, alert, with orientation to person, place and time. Behavior, mood, and affect are within normal limits. 15:42 Cardiovascular: Rate: normal, Rhythm: regular, Pulses: no pulse deficits are appreciated, Heart sounds: normal, Edema: is not appreciated, JVD: is not appreciated. 15:42 Abdomen/GI: Inspection: abdomen appears normal, Bowel sounds: normal, Palpation: mild abdominal tenderness, in the suprapubic area, right lower quadrant and left lower quadrant. 15:42 Back: ROM is painful, normal spinal alignment noted, CVA tenderness, is noted on the left, muscle spasm, is not present. 15:42 Musculoskeletal/extremity: DVT Exam: No signs of deep vein thrombosis. no pain, no swelling, no tenderness, negative Homans' sign noted on exam, no appreciated bluish discoloration, no erythema, no increased warmth. 15:52 ECG was reviewed by the Attending Physician. bobbi Vital Signs: 13:25 BP 129 / 80; Pulse 84; Resp 16 S; Temp 97.8(TE); Pulse Ox 100% on R/A; Weight 71.21 kg ca1 (R); Height 5 ft. 2 in. (157.48 cm) (R); Pain 10/10; 15:14 BP 135 / 91; Pulse 87; Resp 16; Pulse Ox 100% on R/A; ll2 15:15 BP 140 / 91; Pulse 80; Resp 16; Temp 98.7(O); Pulse Ox 100% on R/A; mh5 16:46 BP 161 / 88; Pulse 74; Resp 17; Pulse Ox 100% ; Pain 6/10; ll2 16:57 BP 155 / 100; Pulse 89; Resp 18; Pulse Ox 100% on R/A; mh5 18:00 BP 141 / 86; Pulse 85; Resp 16; Pulse Ox 100% on R/A; ll2 13:25 Body Mass Index 28.72 (71.21 kg, 157.48 cm) ca1 MDM: 15:08 Patient medically screened. bobbi 15:44 Differential diagnosis: abnormal EKG, anxiety, chest wall pain, chronic back pain, bbobi gastritis, pancreatitis, pulmonary embolus, Obesity Pyelonephritis Ureterolithiasis unstable angina. Data reviewed: vital signs, nurses notes, lab test result(s), EKG, radiologic studies, CT scan, plain films. 15:45 HEART Score: History: Slightly Suspicious (0), ECG: Normal (0), Age: < or = 45 years bobbi (0), Risk Factors: 1 or 2 risk factors (1), [DM] [+ Family HX] Troponin: < or = 1 x Normal Limit (0). Differential diagnosis: cardiac arrhythmia, generalized weakness, idiopathic dizziness, near-syncope. The patient's deep vein thrombosis risk score was calculated as follows: Total Score: 0. This patient was found to be at low risk for a deep vein thrombosis by using the Well's assessment criteria. The patient's pulmonary embolism risk score was calculated as follows: Total Score: 0-2 points. This patient was found to be at low risk for a pulmonary embolism by using the Well's assessment criteria. DAVID Risk Score: TOTAL SCORE = 0. Data interpreted: surveillance monitor: rate is 80 beats/min, rhythm is regular, Pulse oximetry: on room air is 100 %. Test interpretation: by ED physician or midlevel provider: ECG, plain radiologic studies. 10/03 15:12 Order name: Urine Dipstick--Ancillary (enter results); Complete Time: 16:45 [facility] 10/03 15:12 Order name: Urine --Ancillary (enter results); Complete Time: 16:45 [facility] 10/03 15:29 Order name: Basic Metabolic Panel; Complete Time: 16:[address] [facility] 10/03 15:29 Order name: CBC with Diff; Complete Time: 16:[address] [facility] 10/03 15:29 Order name: LFT's; Complete Time: 16:[address] [facility] 10/03 15:29 Order name: Magnesium; Complete Time: 16:[address] [facility] 10/03 15:29 Order name: Troponin (emerg Dept Use Only); Complete Time: 16:[address] [facility] 10/03 15:29 Order name: XRAY Chest (1 view); Complete Time: 17:[address] [facility] 10/03 15:29 Order name: D-Dimer; Complete Time: 16:[address] [facility] 10/03 17:02 Order name: CT Abd/Pelvis - Without Contrast; Complete Time: 17:[address] [facility] 10/03 15:29 Order name: EKG; Complete Time: 15:[address] [facility] 10/03 15:29 Order name: Cardiac monitoring; Complete Time: 15:[address] [facility] 10/03 15:29 Order name: EKG - Nurse/Tech; Complete Time: 15:[address] [facility] 10/03 15:29 Order name: IV Saline Lock; Complete Time: 15:[address] [facility] 10/03 15:29 Order name: Labs collected and sent; Complete Time: 15:[address] [facility] 10/03 15:29 Order name: O2 Per Protocol; Complete Time: 15:[address] [facility] 10/03 15:29 Order name: O2 Sat Monitoring; Complete Time: 15:[address] [facility] 10/03 15:29 Order name: Urine Dipstick-Ancillary (obtain specimen); Complete Time: 15:[address] [facility] 10/03 15:29 Order name: Urine Test (obtain specimen); Complete Time: 15:[address] [facility] EC:52 Rate is 75 beats/min. Rhythm is regular. QRS [place] is Normal. [place] interval is normal. QRS bobbi interval is normal. QT interval is normal. No Q waves. T waves are Normal. No ST changes noted. Clinical impression: NSR w/ Non-specific ST/T Changes and No evidence of ischemia. Interpreted by me. Reviewed by me. Administered Medications: 16:00 Drug: NS 0.9% 1000 ml Route: IV; Rate: 1 bolus; Site: right antecubital; ll2 17:15 Follow up: IV Pause: 10/03/2020 17:15; IV Pause Reason: Patient to CT jl7 18:20 Follow up: Response: No adverse reaction; IV Status: Completed infusion; IV Intake: jl7 1000ml 16:00 Drug: morphine 2 mg Route: IVP; Site: right antecubital; ll2 16:30 Follow up: Response: No adverse reaction; Pain is decreased ll2 16:00 Drug: Zofran (Ondansetron) 4 mg Route: IVP; Site: right antecubital; ll2 16:34 Follow up: Response: No adverse reaction ll2 16:34 Follow up: Response: Nausea is decreased ll2 17:00 Drug: Magnesium Sulfate 1 grams Route: IVPB; Infused Over: 1 hrs; Site: right ll2 antecubital; 17:15 Follow up: IV Pause: 10/03/2020 17:15; IV Pause Reason: Patient to CT jl7 18:20 Follow up: Response: No adverse reaction; IV Status: Completed infusion jl7 17:07 Drug: Ativan 1 mg Route: IVP; Site: right antecubital; ll2 17:29 Follow up: Response: No adverse reaction; Anxiety decreased ll2 18:04 Drug: morphine 2 mg Route: IVP; Site: left antecubital; ll2 18:20 Follow up: Response: No adverse reaction; Pain is decreased [facility] Disposition: 10/03/20 17:48 Discharged to Home. Impression: Weakness, Abdominal tenderness, Sciatica, left side, Pleurisy, Type 2 diabetes mellitus, Hypomagnesemia, Anxiety disorder, unspecified, Cholelithiasis. - Condition is Stable. - Discharge Instructions: Abdominal Pain, Adult, Type 2 Diabetes Mellitus, Diagnosis, Adult, Hypomagnesemia, Pleurisy, Sciatica, Weakness, Cholelithiasis, Cholelithiasis, Nxdd-sk-Qsdx, Abdominal Pain, Adult, Rtbq-oi-Qpgk, Weakness, Nwkr-nd-Cpmd, Sciatica, Eotz-wj-Fysr, Type 2 Diabetes Mellitus, Diagnosis, Adult, Oogc-qk-Csrb, Radicular Pain. - Prescriptions for Bentyl 20 mg Oral Tablet - take 1 tablet by ORAL route every 6 hours As needed; 20 tablet. Tylenol 325 mg Oral Tablet - take 2 tablet by ORAL route every 6 hours as needed; 1 bottle. Cyclobenzaprine 5 mg Oral Tablet - take 1 tablet by ORAL route 3 times per day As needed; 15 tablet. Hydroxyzine HCl 25 mg Oral Tablet - take 1 tablet by ORAL route every 6 hours As needed; 30 tablet. - Medication Reconciliation Form, Thank You Letter, Antibiotic Education, Prescription Opioid Use form. - Follow up: Private Physician; When: 2 - 3 days; Reason: Recheck today's complaints, Continuance of care, Re-evaluation by your physician. Follow up: Tom Beltre MD; When: 2 - 3 days; Reason: Recheck today's complaints, Re-evaluation by your physician. - Problem is new. - Symptoms have improved. 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 EDOK EDMS 17:05 15:30 Abdomen Pelvis W Con+CT.RAD.BRZ ordered. [facility] EDMS 18:49 17:48 10/03/2020 17:48 Discharged to Home. Impression: Weakness; Abdominal tenderness; jl7 Sciatica, left side; Pleurisy; Type 2 diabetes mellitus; Hypomagnesemia; Anxiety disorder, unspecified; Cholelithiasis. Condition is Stable. Discharge Instructions: Abdominal Pain, Adult, Type 2 Diabetes Mellitus, Diagnosis, Adult, Pleurisy, Sciatica, Weakness, Abdominal Pain, Adult, Peaj-vu-Wbuy, Weakness, Zieo-fm-Utcj, Sciatica, Jqzr-il-Ygli, Type 2 Diabetes Mellitus, Diagnosis, Adult, Nteo-tp-Ocmg, Radicular Pain, Hypomagnesemia. Prescriptions for Bentyl 20 mg Oral Tablet - take 1 tablet by ORAL route every 6 hours As needed; 20 tablet, Tylenol 325 mg Oral Tablet - take 2 tablet by ORAL route every 6 hours as needed; 1 bottle, Cyclobenzaprine 5 mg Oral Tablet - take 1 tablet by ORAL route 3 times per day As needed; 15 tablet, Hydroxyzine HCl 25 mg Oral Tablet - take 1 tablet by ORAL route every 6 hours As needed; 30 tablet. and Forms are Medication Reconciliation Form, Thank You Letter, Antibiotic Education, Prescription Opioid Use. Follow up: Private Physician; When: 2 - 3 days; Reason: Recheck today's complaints, Continuance of care, Re-evaluation by your physician. Follow up: Tom Beltre; When: 2 - 3 days; Reason: Recheck today's complaints, Re-evaluation by your physician. Problem is new. Symptoms have improved. bobbi
--- NOTE | 2020-10-03 17:49 | ER ---
Nurse's Notes [facility] Name: Ara Plunkett Age: 35 yrs Sex: Female : 1985 Arrival Date: 10/03/2020 Time: 13:23 Bed 17 Private MD: Diagnosis: Weakness;Abdominal tenderness;Sciatica, left side;Pleurisy;Type 2 diabetes mellitus;Hypomagnesemia;Anxiety disorder, unspecified;Cholelithiasis Presentation: 10/03 13:25 Chief complaint: Patient states: Dizzy, lightheaded and queazy x 1 week. Pain on upper ca1 L side of back started this morning. Denies fever. Coronavirus screen: Client denies travel out of the [place] in the last 14 days. At this time, the client does not indicate any symptoms associated with coronavirus-19. The client reports previous COVID testing was negative. Date of collection: July 2020. Ebola Screen: Patient negative for fever greater than or equal to 101.5 degrees Fahrenheit, and additional compatible Ebola Virus Disease symptoms Patient denies exposure to infectious person. Patient denies travel to an Ebola-affected area in the 21 days before illness onset. No symptoms or risks identified at this time. Initial Sepsis Screen: Does the patient meet any 2 criteria? No. Patient's initial sepsis screen is negative. Does the patient have a suspected source of infection? No. Patient's initial sepsis screen is negative. Risk Assessment: Do you want to hurt yourself or someone else? Patient reports no desire to harm self or others. Onset of symptoms was October 03, 2020. 13:25 Method Of Arrival: Ambulatory ca1 13:25 Acuity: CHARISSA 3 ca1 SURVEY ANALYST: 13:28 [facility] 09/28/2020 ca1 Historical: - Allergies: 13:28 Bactrim; ca1 13:28 Flagyl; ca1 13:28 steroids; ca1 13:28 Toradol; ca1 - Home Meds: 13:28 metformin 500 mg oral tab 1 tab three times a day [Active]; ca1 - PMHx: 13:28 Diabetes - NIDDM; ca1 - PSHx: 13:28 None; ca1 - Immunization history:: Adult Immunizations up to date, Flu vaccine is not up to date. - Social history:: Smoking status: Patient reports the use of cigarette tobacco products, smokes one-half pack cigarettes per day. Screenin:14 Abuse screen: Denies threats or abuse. Nutritional screening: No deficits noted. ll2 Tuberculosis screening: No symptoms or risk factors identified. Fall Risk None identified. Assessment: 15:10 General: Appears in no apparent distress. Behavior is calm, cooperative, appropriate ll2 for age. Pain: Complains of pain in low back area Pain radiates to right leg and left leg. Neuro: Level of Consciousness is awake, alert, obeys commands, Oriented to person, place, time, situation. Cardiovascular: Patient's skin is warm and dry. Respiratory: Airway is patent Respiratory effort is even, unlabored, Respiratory pattern is regular, symmetrical. GI: No signs and/or symptoms were reported involving the gastrointestinal system. : Denies burning with urination, urinary frequency, urgency. EENT: No signs and/or symptoms were reported regarding the EENT system. Derm: Skin is intact, is healthy with good turgor, Skin is pink, warm \T\ dry. Musculoskeletal: Circulation, motion, and sensation intact. Range of motion: intact in all extremities. 16:35 Reassessment: Patient and/or family updated on plan of care and expected duration. Pain ll2 level reassessed. Patient is alert, oriented x 3, equal unlabored respirations, skin warm/dry/pink. pt states she is feeling less nausea, but a little bit panicked. 17:30 Reassessment: Patient and/or family updated on plan of care and expected duration. Pain ll2 level reassessed. Patient is alert, oriented x 3, equal unlabored respirations, skin warm/dry/pink. 18:05 Reassessment: Patient and/or family updated on plan of care and expected duration. Pain ll2 level reassessed. Patient is alert, oriented x 3, equal unlabored respirations, skin warm/dry/pink. pt states she is feeling much more relaxed, request made for second dose of pain med for lower back pain. Vital Signs: 13:25 BP 129 / 80; Pulse 84; Resp 16 S; Temp 97.8(TE); Pulse Ox 100% on R/A; Weight 71.21 kg ca1 (R); Height 5 ft. 2 in. (157.48 cm) (R); Pain 10/10; 15:14 BP 135 / 91; Pulse 87; Resp 16; Pulse Ox 100% on R/A; ll2 15:15 BP 140 / 91; Pulse 80; Resp 16; Temp 98.7(O); Pulse Ox 100% on R/A; mh5 16:46 BP 161 / 88; Pulse 74; Resp 17; Pulse Ox 100% ; Pain 6/10; ll2 16:57 BP 155 / 100; Pulse 89; Resp 18; Pulse Ox 100% on R/A; mh5 18:00 BP 141 / 86; Pulse 85; Resp 16; Pulse Ox 100% on R/A; ll2 13:25 Body Mass Index 28.72 (71.21 kg, 157.48 cm) ca1 ED Course: 13:23 Patient arrived in ED. ca1 13:27 Triage completed. ca1 13:28 Arm band placed on right wrist. ca1 14:57 Yesenia Fleming, RN is Primary Nurse. ll2 15:08 Rashad Melgoza MD is Attending Physician. bobbi 15:11 Urine collected: clean catch specimen, cloudy. mh5 15:12 Patient has correct armband on for positive identification. Placed in gown. Bed in low mh5 position. Call light in reach. Side rails up X 1. Warm blanket given. Pulse ox on. NIBP on. 15:16 Urine --Ancillary (enter results) Sent. mh5 15:16 Urine Dipstick--Ancillary (enter results) Sent. mh5 15:40 Missed attempt(s): 24 gauge in left wrist. Bleeding controlled, band aid applied, jp3 catheter tip intact. 15:41 EKG done, by ED staff, reviewed by Rashad Melgoza MD. mh5 15:55 Initial lab(s) drawn, by la, sent to lab. Inserted saline lock: 24 gauge in left jp3 antecubital area, using aseptic technique. Blood collected. 16:33 XRAY Chest (1 view) In Process Unspecified. EDMS 17:15 CT Abd/Pelvis - Without Contrast In Process Unspecified. EDMS 17:48 Tom Beltre MD is Referral Physician. bobbi 18:25 No provider procedures requiring assistance completed. IV discontinued, intact, jl7 bleeding controlled, No redness/swelling at site. Pressure dressing applied. Administered Medications: 16:00 Drug: NS 0.9% 1000 ml Route: IV; Rate: 1 bolus; Site: right antecubital; ll2 17:15 Follow up: IV Pause: 10/03/2020 17:15; IV Pause Reason: Patient to CT jl7 18:20 Follow up: Response: No adverse reaction; IV Status: Completed infusion; IV Intake: jl7 1000ml 16:00 Drug: morphine 2 mg Route: IVP; Site: right antecubital; ll2 16:30 Follow up: Response: No adverse reaction; Pain is decreased ll2 16:00 Drug: Zofran (Ondansetron) 4 mg Route: IVP; Site: right antecubital; ll2 16:34 Follow up: Response: No adverse reaction ll2 16:34 Follow up: Response: Nausea is decreased ll2 17:00 Drug: Magnesium Sulfate 1 grams Route: IVPB; Infused Over: 1 hrs; Site: right ll2 antecubital; 17:15 Follow up: IV Pause: 10/03/2020 17:15; IV Pause Reason: Patient to CT jl7 18:20 Follow up: Response: No adverse reaction; IV Status: Completed infusion jl7 17:07 Drug: Ativan 1 mg Route: IVP; Site: right antecubital; ll2 17:29 Follow up: Response: No adverse reaction; Anxiety decreased ll2 18:04 Drug: morphine 2 mg Route: IVP; Site: left antecubital; ll2 18:20 Follow up: Response: No adverse reaction; Pain is decreased jl7 Intake: 18:20 IV: 1000ml; Total: 1000ml. jl7 Outcome: 17:48 Discharge ordered by MD. martines 18:25 Discharged to home via wheelchair, with family. jl7 18:25 Condition: stable 18:25 Discharge instructions given to patient, Instructed on discharge instructions, follow up and referral plans. medication usage, Demonstrated understanding of instructions, follow-up care, medications, Prescriptions given X 4. 18:49 Patient left the ED. jl7 Signatures: Dispatcher [employer] EDMS Rashad Melgoza MD MD cha Martinez, Maria 5 Yumiko Richardson RN RN jl7 Luis Echols jp3 Suyapa Gonzalez RN RN ca1 Yesenia Fleming RN RN ll2 Corrections: (The following items were deleted from the chart) 17:30 17:29 Response: No adverse reaction; Pain is decreased ll2 ll2 18:49 18:25 Discharge instructions given to patient, Instructed on discharge instructions, jl7 follow up and referral plans. medication usage, Demonstrated understanding of instructions, follow-up care, medications, Prescriptions given X 3, jl7
[2020-10-03 21:55] VITALS: O2SAT 100
[2020-10-03 21:59] VITALS: TEMP 98.7
[2020-10-03 22:13] VITALS: BP 141/86
--- NOTE | 2020-10-04 07:25 | EKG ---
Test Date: 2020-10-03 Test Time: 15:48:27 [employer] Tree [employer]er: SHAWNA MEASUREMENT RESULTS: Intervals: Rate: 75 [place]: 156 QRSD: 70 QT: 368 QTc: 410 [place]: P: 27 [place]: 156 QRS: 64 T: 43 INTERPRETIVE STATEMENTS: Normal sinus rhythm Septal infarct, age undetermined Abnormal ECG Compared to ECG 09/18/2020 06:15:38 Myocardial infarct finding now present Electronically Signed On 10-04-20 07:24:25 YARDING ENGINEER by Juan Ray
== END 2020-10-03 18:49 | disposition home or self-care (01) ==
LOC: ER 12:43
DX: R53.1 Weakness (principal); K80.20 Calculus of gallbladder without cholecystitis without obstruction; R09.1 Pleurisy; M54.32 Sciatica, left side; E83.42 Hypomagnesemia; E11.9 Type 2 diabetes mellitus without complications; F41.9 Anxiety disorder, unspecified; R10.819 Abdominal tenderness, unspecified site; F17.210 Nicotine dependence, cigarettes, uncomplicated; Z88.1 Allergy status to other antibiotic agents; Z88.5 Allergy status to narcotic agent; Z88.8 Allergy status to other drugs, medicaments and biological substances
CPT/HCPCS: 36415; 71045; 74176; 80048; 80076; 81003; 81025; 83735; 84484; 85025; 85379; 93005; 99284; J2270; J2405; J3010; J3475; J7030

== ENCOUNTER 2020-10-31 20:59 | Emergency (ER) | payer SELFPAY ==
--- OUTSIDE RECORDS SUMMARY | 2020-10-31 21:02 | XMS REPORT | Clinical Summary ---
:1985 Author Organization [facility] Address [address] [place] [address] Care Team Providers Name Role Phone Asked, [...] of diab etes mellitus; Thrombocytosis (HCC) after 10/31/2019 Surgical History Surgery Date Site/Laterality Comments NO [...] Comments Blood Pressure 145/81 09/29/2020 7:00 PM RETAIL BANKING MANAGER Pulse 83 09/29/2020 7:00 PM RETAIL BANKING MANAGER Temperature 36.6 C (97.9 F) 09/29/2020 2:23 PM RETAIL BANKING MANAGER Respiratory Rate 16 09/29/2020 7:00 PM RETAIL BANKING MANAGER Oxygen Saturation 99% 09/29/2020 7:00 PM RETAIL BANKING MANAGER Inhaled Oxygen Concentration - - Weight 71.2 kg (157 lb) 09/29/2020 2:19 PM RETAIL BANKING MANAGER Height 157.5 cm (5' 2") 09/29/2020 2:19 PM RETAIL BANKING MANAGER Body Mass Index 28.72 09/29/2020 2:19 PM RETAIL BANKING MANAGER Plan of Treatment Health Maintenance Due Date Last Done Comments DIABETES: RETINAL EYE EXAM 1993 DIABETIC FOOT EXAM 1993 URINE MICROALBUMIN 1993 CERVICAL CANCER SCREENING 2004 INFLUENZA VACCINE 06/24/2020 Procedures Procedure Name Priority Date/Time Associated Comments Diagnosis POC GLUCOSE Routine 09/29/2020 7:13 Results for this PM RETAIL BANKING MANAGER procedure are i n the results section. TROPONIN Timed 09/29/2020 6:54 Results for this PM RETAIL BANKING MANAGER procedure are i n the results section. CT RENAL STONE PROTOCOL STAT 09/29/2020 5:17 Results for this PM RETAIL BANKING MANAGER procedure are i n the results section. HCG QUALITATIVE, URINE STAT 09/29/2020 4:13 R esults for this SCREEN PM RETAIL BANKING MANAGER procedure are i n the results section. URINALYSIS SCREEN AND STAT 09/29/2020 4:13 Re sults for this MICROSCOPY, WITH REFLEX PM RETAIL BANKING MANAGER proc edure are in TO CULTURE the results section. TROPONIN, I-STAT STAT 09/29/2020 4:09 Results for this PM RETAIL BANKING MANAGER procedure are i n the results section. LIPASE LEVEL STAT 09/29/2020 4:09 Results for this PM RETAIL BANKING MANAGER procedure are i n the results section. CREATINE KINASE, TOTAL STAT 09/29/2020 4:09 R esults for this (CPK) PM RETAIL BANKING MANAGER procedure are i n the results section. ESTIMATED GFR STAT 09/29/2020 4:09 Results fo r this PM RETAIL BANKING MANAGER procedure are i n the results section. HC COMPLETE BLD COUNT STAT 09/29/2020 4:09 Re sults for this W/AUTO DIFF PM RETAIL BANKING MANAGER procedure are i n the results section. B NATRIURETIC PEPTIDE STAT 09/29/2020 4:09 Re sults for this PM RETAIL BANKING MANAGER procedure are i n the results section. COMPREHENSIVE METABOLIC STAT 09/29/2020 4:09 Results for this PANEL PM RETAIL BANKING MANAGER procedure are i n the results section. XR CHEST 1 VW PORTABLE STAT 09/29/2020 4:01 R esults for this PM RETAIL BANKING MANAGER procedure are i n the results section. ECG ED PRELIMINARY Routine 09/29/2020 2:33 Resul ts for this INTERPRETATION PM RETAIL BANKING MANAGER procedure are in the results section. ECG 12-LEAD STAT 09/29/2020 2:09 Results for this PM RETAIL BANKING MANAGER procedure are i n the results section. after 10/31/2019 Results POC glucose (09/29/2020 7:13 PM RETAIL BANKING MANAGER) Pathologist Sig nature POC glucose 207 (H) 65 - 99 mg/dL [facility] [place] Comment: [facility] Civil Technician Name: Marina [facility] Device ID: [id number] Chartable: Notified nurse Specimen Blood Performing Organization Address City/[facility]/ZIP Code [place] [address], [address] [place] [address] 5 PATHOLOGY AND GENOMIC MEDICINE [place] [address] [facility] [address] Troponin (09/29/2020 6:54 PM RETAIL BANKING MANAGER) Troponin <0.006 0.000 - 0.040 [place] Comment: ng/mL MARNIE [facility] In patients suspected of having a [...] Code [place] [address], [address] [place] [address] 5 PATHOLOGY AND GENOMIC MEDICINE [facility] THE [address] [facility] [address] [address] Renal Stone Protocol (09/29/2020 5:17 PM RETAIL BANKING MANAGER) Specimen Narrative Performed At Examination: CT RENAL STONE PROTOCOL [facility] Clinical history: flank pain, abd pain [...] calculus or obstructi on. Please see above. [facility]-[id number] Procedure Note Interface, Radiology Results Incoming - 09/29/2020 5:46 PM RETAIL BANKING MANAGER Examination: CT RENAL STONE PROTOCOL Clinical history: [...] calculu s or obstruction. Please see above. [facility]-[id number] Performing Organization Address City/State/ZIP Code Phon e Number [facility] [address] [place] [address] Urinalysis screen and microscopy, with reflex to culture (09/29/2020 4:13 PM RETAIL BANKING MANAGER) Specimen site Clean catch [facility] Color, UA Yellow [facility] Appearance, UA Clear [facility] Specific gravity, UA 1.028 1.001 - 1.035 [facility] pH, UA 5.0 5.0 - 8.5 [facility] Protein, UA 1+ (A) Negative [facility] Glucose, UA 3+ (A) Negative [facility] Ketones, UA Trace (A) Negative [facility] Bilirubin, UA Negative Negative [facility] Blood, UA Negative Negative [facility] Nitrite, UA Negative Negative [facility] Urobilinogen, UA <2.0 <2.0 [facility] Leukocyte esterase, Negative Negative [facility] Epithelial cells, UA 1 /HPF [facility] WBC, UA 2 0 - 5 /HPF [facility] RBC, UA 1 0 - 5 /HPF [facility] Yeast, UA None seen [facility] Yeast with None seen [facility] pseudohyphae, UA [facility] Specimen Urine Performing Organization Address City/State/ZIP [place] [address], [address] [place], [place] [address] 5 PATHOLOGY AND GENOMIC MEDICINE [facility] THE [address] [facility] [address] hCG qualitative, urine screen (09/29/2020 4:13 PM RETAIL BANKING MANAGER) Pathologist [facility] hCG qualitative, NegativeComment: [facility] [place] urine Sensitivity of HCG [facility] test: 25 mIU/ml HOSPITAL Specimen Urine Performing Organization Address City/[facility]/ZIP Code Phon e Number [facility] [place] [place] [address], [address] [place] [address] 5 PATHOLOGY AND GENOMIC MEDICINE [place] [facility] [address] [facility] [address] Estimated GFR (09/29/2020 4:09 PM RETAIL BANKING MANAGER) Pathologist [facility] Estimated GFR >=90 mL/min/1.73 [place] Comment: m2 [facility] Catergory Units Interpretation HERN[facility]NDE[facility] DLANDS G1 [...] in 2014. Specimen Plasma Performing Organization Address [facility] Phon e Number [facility] [place] [address], [address] [place] [address] PATHOLOGY AND GENOMIC MEDICINE [place] [facility] [address] [facility] [address] Troponin, I-Stat (09/29/2020 4:09 PM RETAIL BANKING MANAGER) Pathologist [facility] Troponin, I-Stat 0.00 0.00 - 0.08 [place] Comment: ng/mL [facility] 0.09 - 1.49 ng/ml May indicate increa sed risk of acute [facility] coronary syndrome. HOSPITAL >=1.5 ng/ml Consistent with acute myocardial infarction. The diagnostic value of a single normal or non-diagnos tic result is questionable. Serial samples at 2-6 hour i ntervals are required to rule out acute myocardial injury. Specimen Plasma Performing Organization Address City/[facility]/ZIP Code Phon e Number [facility] [place] [address], [address] [place] [address] PATHOLOGY AND GENOMIC MEDICINE [facility] THE [address] [facility] [address] CBC with platelet and differential (09/29/2020 4:09 PM RETAIL BANKING MANAGER) WBC 12.08 (H) 4.50 - 11.00 JAFFE k/uL [facility] RBC 4.84 4.20 - 5.50 [place] m/uL [facility] HGB 14.6 12.0 - 16.0 [place] g/dL [facility] HCT 42.6 37.0 - 47.0 % [facility] MCV 88.0 82.0 - 100.0 JAFFE fL [facility] MCH 30.2 27.0 - 34.0 pg [facility] MCHC 34.3 31.0 - 37.0 [place] g/dL [facility] RDW - SD 39.1 37.0 - 55.0 fL [facility] MPV 9.7 8.8 - 13.2 fL [facility] Platelet count 541 (H) 150 - 400 k/uL [facility] Nucleated RBC 0.00 /100 WBC [facility] Neutrophils 80.3 (H) 39.0 - 69.0 % [facility] Lymphocytes 14.8 (L) 25.0 - 45.0 % [facility] Monocytes 3.3 0.0 - 10.0 % [facility] Eosinophils 0.9 0.0 - 5.0 % [facility] Basophils 0.5 0.0 - 1.0 % [facility] Immature granulocytes 0.2Comment: 0.0 - 1.0 % [place] "Immature [facility] granulocytes" [facility] (promyelocytes HOSPITAL , myelocytes, metamyelocytes ) Specimen Plasma Performing Organization Address City/State/ZIP Code [facility] [place] [address], [address] [place] [address] 5 PATHOLOGY AND GENOMIC MEDICINE [facility] THE [address] [facility] [address] B natriuretic peptide (09/29/2020 4:09 PM RETAIL BANKING MANAGER) Pathologist Sig nature BNP 36 0 - 100 pg/mL [facility] Specimen Blood Performing Organization Address City/[facility]/ZIP [facility] Phon e Number [facility] [place] [address], [address] [place] [address] 5 PATHOLOGY AND GENOMIC MEDICINE [facility] [address] [facility] [address] Lipase level (09/29/2020 4:09 PM RETAIL BANKING MANAGER) Pathologist Sig nature Lipase 32 13 - 60 U/L [facility] Specimen Plasma Performing Organization Address City/State/ZIP [place] [address], [address] [place] [address] 5 PATHOLOGY AND GENOMIC MEDICINE [facility] [address] [facility] [address] Creatine kinase, total (CPK) (09/29/2020 4:09 PM RETAIL BANKING MANAGER) Pathologist Sig nature Creatine kinase 39 26 - 192 U/L [facility] Specimen Plasma Performing Organization Address City/[facility] Code Phon e Number [facility] [place] [address], [address] [place] [address] 5 PATHOLOGY AND GENOMIC MEDICINE [facility] [address] [facility] [address] Comprehensive metabolic panel (09/29/2020 4:09 PM RETAIL BANKING MANAGER) Sodium 136 135 - 148 [place] mEq/L [facility] Potassium 3.3 (L) 3.5 - 5.0 [place] mEq/L [facility] Chloride 101 98 - 112 [place] mEq/L [facility] CO2 24 24 - 31 mEq/L [facility] Anion gap 11 7 - 15 mEq/L [facility] BUN 5 (L) 6 - 20 mg/dL [facility] Creatinine 0.62 0.50 - 0.90 [place] mg/dL [facility] Glucose 289 (H) 65 - 99 mg/dL [facility] Calcium 9.5 8.3 - 10.2 [place] mg/dL [facility] Protein 8.3 6.3 - 8.3 [place] Comment: g/dL [facility] [place] 4.6-7.0 g/dL HOSPITAL 1 week 4.4-7.6 g/dL 7 months-1year 5.1-7.3 g/dL 1-2 years 5.6-7.5 g/dL >3 years 6.0-8.0 g/dL 18-150 6.3-8.3 g/dL Albumin 4.1 3.5 - 5.0 [place] g/dL [facility] A/G ratio 1.0 0.7 - 3.8 [facility] Alkaline phosphatase 117 (H) 35 - 104 U/L [facility] AST 20 10 - 35 U/L [facility] ALT 7 5 - 50 U/L [facility] Total bilirubin 0.5 0.0 - 1.2 [place] mg/dL [facility] Specimen Plasma Performing Organization Address City/[facility]/ZIP [place] [address], [address] [place] [address] 5 PATHOLOGY AND GENOMIC MEDICINE [facility] [address] [facility] [address] XR Chest 1 Vw Portable (09/29/2020 4:01 PM RETAIL BANKING MANAGER) Specimen Narrative Performed At EXAMINATION: XR CHEST 1 VW PORTABLE [facility] CLINICAL HISTORY:35 years Female ches t pain [facility] COMPARISON: None IMPRESSION: Cardiomediastinal silhouette and pulmonary vasculature are within normal limits. Lungs are clear. Bones are unr emarkable. [id number] Procedure Note Interface, Radiology Results Incoming - 09/29/2020 4:07 PM RETAIL BANKING MANAGER EXAMINATION: XR CHEST 1 VW PORTABLE CLINICAL HISTORY:35 years Female chest pain [facility] COMPARISON: None IMPRESSION: Cardiomediastinal silhouette and pulmona ry vasculature are within normal limits. Lungs are clear. Bones are unremarkable. [id number] Performing Organization Address City/State/ZIP Code Phon e Number [facility] [address] [place] [address] ECG ED Preliminary Interpretation - Not an Order (09/29/2020 2:33 PM RETAIL BANKING MANAGER) Narrative Performed At Ezra Persaud MD 09/30/2020 8:15 AM ECG ED Preliminary Interpretation - Not an Order Performed by: Ezra Persaud MD Authorized by: Ezra Persaud MD ECG reviewed by ED Physician in the abse nce of a anesthesiologist physician: yes Interpretation: Interpretation: normal Rate: ECG rate: 81 ECG rate assessment: normal Rhythm: Rhythm: sinus rhythm Ectopy: Ectopy: none QRS: QRS axis: Normal QRS intervals: Normal Conduction: Conduction: normal ST segments: ST segments: Normal T waves: T waves: non-specific ECG 12 lead (09/29/2020 2:09 PM RETAIL BANKING MANAGER) Pathologist Sig nature Ventricular rate 81 [facility] Atrial rate [address] [facility] interval 138 [facility] QRSD interval 88 [facility] QT interval 390 [facility] QTC interval 453 [facility] P axis 1 29 [facility] QRS axis 1 70 [facility] T wave axis 24 [facility] EKG impression Normal sinus [facility] rhythm-Nonspecific T wave abnormality-Abnormal ECG-No previous ECGs available-Electronicall y Signed By Lake Lawson MD ([id number]) on 09/30/2020 9:08:53 AM Specimen Narrative Performed At This result has an attachment that is no t available. Performing Organization Address City/State/ZIP Code Phon e Number [facility] MUSE [address] [place] [address] after 10/31/2019 Advance Directives For more information, please contact: [phone] Type Date Recorded Patient Human Resources Analyst Explanati on Advance Directives, Living Will 09/29/2020 5:11 PM and Medical Power of Medical Translator
--- OUTSIDE RECORDS SUMMARY | 2020-10-31 21:03 | XMS REPORT | Summary of Care ---
:1985 Author Organization [facility] - Health Address [address] [place] [address] Care Team Providers Name Role Phone Pcp, Patient Does Not Have A Primary Care Provider +[id number] 0-0000 Reason for Visit Reason Comments Back Pain radiates down the left leg t o the knee. 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; [address] Type 2 mario betes mellitus with hyperglycemia, without long-term current use of insulin [id number] [place] [address] [place], [place] [phone] Allergies Active Allergy Reactions Severity Noted Date Comments Metronidazole Hcl Unknown - See comments 02/19/2020 Sulfa (Sulfonamide Antibiotics) Unknown - See comments 10/12/2020 Ketorolac Anxiety 09/16/2020 documented as of this encounter (statuses as of 10/13/2020) Medications Medication Sig Dispensed Refills Start Date End Date Status dicyclomine 20 mg Take 1 tablet by 30 tablet 0 09/16/2020 Active tabletIndications: mouth 4 (four) Abdominal pain, times daily as unspecified abdominal needed for location, Biliary Abdominal pain. calculus of other site without obstruction ondansetron (ZOFRAN) 4 Take 1 tablet by 20 tablet 0 09/16/2020 Active mg tabletIndications: mouth every 8 Abdominal pain, (eight) hours as unspecified abdominal needed for Nausea location, Biliary and Vomiting calculus of other site (N/V). without obstruction metFORMIN 500 mg Take 1 tablet by 30 tablet 0 09/16/2020 Active tabletIndications: mouth 2 (two) Abdominal pain, times daily. unspecified abdominal location, Biliary calculus of other site without obstruction, Type 2 diabetes mellitus with other specified complication, unspecified whether custodial insulin use ibuprofen 600 mg Take 1 tablet by 20 tablet 0 10/13/2020 Active tabletIndications: mouth every 6 Acute left-sided low (six) hours as back pain with needed for Pain left-sided sciatica (scale 4-6). methocarbamoL Take 1 tablet by 20 tablet 0 10/13/2020 Active (ROBAXIN) 500 mg mouth 3 (three) tabletIndications: times daily as Acute left-sided low needed for Pain back pain with (scale 4-6). left-sided sciatica acetaminophen-codeine Take 1 tablet by 15 tablet 0 10/13/2020 Active (TYLENOL-CODEINE #3) mouth every 8 300-30 mg (eight) hours as tabletIndications: needed for Pain acute pain (scale 4-6). Indications: acute pain documented as of this encounter (statuses as of 10/13/2020) Active Problems No known active problemsdocumented as of this encounter (statuses as of 10/13/2020) Social History Tobacco Use Types Packs/Day Years Used Date Never Assessed Sex Assigned at Date Recorded Not on file COVID-19 Exposure Response Date Recorded In the last month, have you been in contact with No / Unsure 10/12/2020 10:44 PM AQUATIC DIRECTOR someone who was confirmed or suspected to have Coronavirus / COVID-19? documented as of this encounter Last Filed Vital Signs Vital Sign Reading Time Taken Comments Blood Pressure 140/83 10/13/2020 2:00 AM AQUATIC DIRECTOR Pulse 96 10/13/2020 2:00 AM AQUATIC DIRECTOR Temperature 37 C (98.6 F) 10/12/2020 10:48 PM AQUATIC DIRECTOR Respiratory Rate 23 10/13/2020 2:00 AM AQUATIC DIRECTOR Oxygen Saturation 100% 10/13/2020 2:00 AM AQUATIC DIRECTOR Inhaled Oxygen Concentration - - Weight 71.2 kg (157 lb) 10/12/2020 10:48 PM AQUATIC DIRECTOR Height 157.5 cm (5' 2") 10/12/2020 10:48 PM AQUATIC DIRECTOR Body Mass Index 28.72 10/12/2020 10:48 PM AQUATIC DIRECTOR documented in this encounter Discharge Instructions FranciscoMadan grandeDAVIDE - 10/13/2020DIAGNOSIS 1. Left sided lower back pain with sciatica 2. Diabetes type 2 with hyperglycemia NO LIFE-THREATENING FINDINGS ON TODAY'S EXAM. PROCEDURES IN THE ER TODAY: None MEDICATIONS ADMINISTERED IN THE ER TODAY: Solumedrol Robaxin Ibuprofen Acetaminophen /codeine YOUR PRESCRIPTIONS AND DCVI-CSD-CXRWCGM MEDICATION RECOMMENDATIONS: Robaxin Ibuprofen Acetaminophen /codeine SPECIAL CARE INSTRUCTIONS: Take all medications with food Do not drive or drink alcohol when taking Acetaminophen with codeine or robaxin Use warm compresses and ice pack for pain relief FOLLOW-UP RECOMMENDATIONS: RECOMMEND FOLLOW-UP WITH A PRIMARY CARE PROVIDER IN 2-5 DAYS, ESPECIALLY IF NO IMPROVEMENT IN SYMPTOMS. TO FOLLOW-UP WITHIN THE [facility], TRY THESE OPTIONS (CLINIC APPOINTMENTS AVAILABLE ON EFNU-QM-PESV BASIS): 1. SCHEDULE AN APPOINTMENT ONLINE AT WWW[facility] 2. OR CALL THE [facility] ACCESS CENTER AT OR 3. OR CALL YOUR [facility] PHYSICIAN'S OFFICE DIRECTLY IF YOU ARE ALREADY AN ESTABLISHED [facility] PATIENT. OR, YOU MAY FOLLOW-UP WITH A PROVIDER OF YOUR CHOICE, SUCH : 1. A PHYSICIAN OF YOUR CHOICE 2. [facility], . LOCATIONS IN [facility] 3. [facility], [address] [place] [address]; [phone] RETURN TO ER FOR WORSENING OF SYMPTOMS. Weakness in legs, unable to urinate, or control your urine or stool, numbness around your vagina/pelvis area or any other concerning symptoms AttachmentsThe following attachments cannot be sent through Care Everywhere.Back Pain (Low): Self-Care (Togolese)Lumbar Radiculopathy, Understanding (Togolese) Sciatica (Togolese)Hyperglycemia (High Blood Sugar) (Togolese)documented in this encounter ED Notes Eloisa Jaureugi, RN - 10/12/2020 10:53 PM CSTPatient presents as an alert and oriented female that reports atraumatic pain originating in the left lower back and radiating down the left leg to the knee. Patient denies any Hx. Of pain like this inthe past. documented in this encounter Miscellaneous Notes ED Nurse Note - Celia Cho, RN - 10/13/2020 2:01 AM CSTPt given printed and verbal discharge instructions regarding hyperglycemia and left sided lower backpain with sciatica, encouraged hydration. Pt verbalized understanding of instructions, pt awake [...] with steady gait, in no apparent distress. documented in this encounter Plan of Treatment Name Type Priority Associated Diagnoses Order S chedule EKG-12 LEAD ROUTINE HEART STATION LIYAH Acute left-sided low ONCE for 1 Occurrences ONCE back pain with starting 09/25 left-sided sciat ica until 10/13/2020 Hyperglycemia Health Maintenance Due Date Last Done Comments VARICELLA VACCINES (1 of - 1984 2-dose childhood series) Depression Screening 1995 DTaP,Tdap,and Td Vaccines (1 - 2002 Tdap) PAP SMEAR 2004 INFLUENZA VACCINE (#1) 2020 PNEUMOCOCCAL 0-64 YEARS COMBINED Aged Out No longer eligible based on SERIES patient's age to complete this topic documented as of this encounter Procedures Procedure Name Priority Date/Time Associated Diagnosis Comme nts POCT GLUCOSE(AGE LIYAH 10/13/2020 1:43 AM Acute left-sided low Results for this 0-30DAYS) AQUATIC DIRECTOR back pain with procedure are in left-sided sciatica the resu lts section. POCT GLUCOSE Routine 10/13/2020 1:42 AM Results for this (AUTOMATED) AQUATIC DIRECTOR procedure are i n the results section. CBC WITH DIFF STAT 10/13/2020 1:15 AM Acute left-sided low Results for this AQUATIC DIRECTOR back pain with procedure are in left-sided sciat ica the results Hyperglycemia section. COMP. METABOLIC STAT 10/13/2020 1:15 AM Acute left-sided l ow Results for this PANEL (36621) AQUATIC DIRECTOR back pain with procedure ar e in left-sided sciat ica the results Hyperglycemia section. POCT GLUCOSE Routine 10/13/2020 12:22 AM Results for this (AUTOMATED) AQUATIC DIRECTOR procedure are i n the results section. POCT TEST LIYAH 10/12/2020 11:45 PM Acute left-alberto ed low Results for this AQUATIC DIRECTOR back pain with procedure are in left-sided sciatica the resu lts section. NOTICE OF PRIVACY Routine 10/12/2020 10:45 PM PRACTICES AQUATIC DIRECTOR CONSENT/REFUSAL FOR Routine 10/12/2020 10:44 PM DIAGNOSIS AND AQUATIC DIRECTOR TREATMENT CONSENT/REFUSAL FOR Routine 10/12/2020 10:44 PM DIAGNOSIS AND AQUATIC DIRECTOR TREATMENT documented in this encounter Results POCT GLUCOSE(AGE 0-30DAYS) (10/13/2020 1:43 AM AQUATIC DIRECTOR) Pathologist Sig [employer] R&D POCT Glu (age 0-30days) 337 (A) 40 - 110 mg/dl Specimen Blood - CAPILLARY POCT GLUCOSE (AUTOMATED) (10/13/2020 1:42 AM AQUATIC DIRECTOR) [facility] [employer] R&D POCT GLU 337 (H) 70 - 110 mg/dL [facility] Specimen Blood Performing Organization Address City/State/Zipcode Phone Number [facility] CLIA: [id number] [place], [place] [id number] LABORATORY [address] COMP. METABOLIC PANEL (81710) (10/13/2020 1:15 AM AQUATIC DIRECTOR) Pathologist Sig [employer] NA 133 (L) 135 - 145 [facility] mmol/L [facility] K 3.9 3.5 - 5.0 [facility] mmol/L [facility] CL 97 (L) 98 - 108 mmol/L [facility] CO2 TOTAL 26 23 - 31 mmol/L [facility] AGAP 10 2 - 16 [facility] BUN 11 7 - 23 mg/dL [facility] GLUCOSE 432 (H) 70 - 110 mg/dL [facility] CREATININE 0.72 0.50 - 1.04 [facility] mg/dL [facility] TOTAL BILI 0.7 0.1 - 1.1 mg/dL [facility] CALCIUM 9.7 8.6 - 10.6 [facility] mg/dL [facility] T PROTEIN 7.8 6.3 - 8.2 g/dL [facility] ALBUMIN 4.4 3.5 - 5.0 g/dL [facility] ALK PHOS 118 34 - 122 U/L [facility] ALTv 7 5 - 35 U/L [facility] AST(SGOT) 15 13 - 40 U/L [facility] eGFR Calculation 91.1 mL/min/1.73m2 [facility] (Non-[facility] LABORATORY [place]) eGFR Calculation 110.5 mL/min/1.73m2 [facility] () [facility] Specimen Blood - VENOUS Narrative Performed At Association of Glomerular Filtration Rate (GFR) [facility] and Staging of Kidney Disease* + [...] tests). Performing Organization Address City/State/Zipcode Phone Number [facility] CLIA: [id number] [place] [address] CBC WITH DIFF (10/13/2020 1:15 AM AQUATIC DIRECTOR) [facility] nature WBC 10.84 4.30 - 11.10 [facility] 10*3/L [facility] RBC 4.65 3.93 - 5.25 [facility] 10*6/L [facility] HGB 13.9 11.6 - 15.0 [facility] g/dL [facility] HCT 40.4 35.7 - 45.2 % [facility] MCV 86.9 80.6 - 95.5 fL [facility] MCH 29.9 25.9 - 32.8 pg [facility] MCHC 34.4 31.6 - 35.1 [facility] g/dL [facility] RDW-SD 37.6 (L) 39.0 - 49.9 fL [facility] RDW-CV 11.8 (L) 12.0 - 15.5 % [facility] PLT 438 (H) 166 - 358 [facility] 10*3/L [facility] MPV 9.6 9.5 - 12.9 fL [facility] NRBC/100 WBC 0.0 0.0 - 10.0 /100 [facility] WBCs [facility] NRBC x10^3 <0.01 10*3/L [facility] GRAN MAT (NEUT) % 75.0 % [facility] IMM GRAN % 0.50 % [facility] LYMPH % 16.7 % [facility] MONO % 4.8 % [facility] EOS % 2.4 % [facility] BASO % 0.6 % [facility] GRAN MAT x10^3(ANC) 8.14 (H) 1.88 - 7.09 [facility] 10*3/uL [facility] IMM GRAN x10^3 0.05 0.00 - 0.06 [facility] 10*3/uL HOSPITAL LABORATORY LYMPH x10^3 1.81 1.32 - 3.29 [facility] 10*3/uL HOSPITAL LABORATORY MONO x10^3 0.52 0.33 - 0.92 [facility] 10*3/uL HOSPITAL LABORATORY EOS x10^3 0.26 0.03 - 0.39 [facility] 10*3/uL HOSPITAL LABORATORY BASO x10^3 0.06 0.01 - 0.07 [facility] 10*3/uL [facility] Specimen Blood - VENOUS Performing Organization Address City/State/Zipcode Phone Number [facility] CLIA: [id number] [place] [address] POCT GLUCOSE (AUTOMATED) (10/13/2020 12:22 AM AQUATIC DIRECTOR) Pathologist Sig nature POCT GLU 445 (H) 70 - 110 mg/dL [facility] Specimen Blood Performing Organization Address City/State/Zipcode Phone Number [facility] CLIA: [id number] [place] [address] POCT TEST (10/12/2020 11:45 PM AQUATIC DIRECTOR) Pathologist Sig nature POCT PREG negative On board controls acceptable positive with C Line POCT PREG LOT # [id number] POCT PREG TEST DATE 03-23-2022 Specimen Urine - URINE, CLEAN CATCH documented in this encounter Visit Diagnoses Diagnosis Acute left-sided low back pain with left -sided sciatica - Primary Hyperglycemia Other abnormal glucose Type 2 diabetes mellitus with hyperglyce misti, without long-term current use of insulin documented in this encounter Administered Medications Medication Order MAR Action Action Date Dose Rate Site acetaminophen-codeine (TYLENOL Given 10/12/2020 11:47 PM AQUATIC DIRECTOR 1 t ablet #3) 300-30 mg tablet 1 tablet 1 tablet, Oral, ONCE, 1 dose, Joselyn 10/12/20 at 2330, LIYAH ibuprofen (IBU) tablet 800 mg Given 10/12/2020 11:47 PM AQUATIC DIRECTOR 800 mg 800 mg, Oral, ONCE, 1 dose, Joselyn 10/12/20 at 2330, LIYAH insulin regular human (HUMULIN R) injection Given 09/25 1:18 AM AQUATIC DIRECTOR 5 Units 5 Units 5 Units, Slow IV Push, ONCE, 1 dose, Fri10/13/20 at 0045, STAT methocarbamoL (ROBAXIN) tablet 500 mg Given 10/12/2020 11:46 PM AQUATIC DIRECTOR 500 mg 500 mg, Oral, ONCE, 1 dose, Joselyn 10/12/20 at 2330, LIYAH methylprednisolone sod succ Given 10/12/2020 11:47 PM 125 mg Right Dorsogluteal-IM (SOLU-MEDROL) injection 125 AQUATIC DIRECTOR mg 125 mg, Intramuscular, ONCE, 1 dose, Joselyn 10/12/20 at 2330, STAT NaCl 0.9% (NS) IV infusion 1,000 New Bag 10/13/2020 1:[address] 1,000 mL 999 mL/hr mL at 999 mL/hr, Intravenous, ONCE, 1 dose, Fri10/13/20 at 0030, Routine documented in this encounter
--- OUTSIDE RECORDS SUMMARY | 2020-10-31 21:03 | XMS REPORT | Clinical Summary ---
:1985 Author Organization [facility] Address [address] [place] [address] Care Team Providers Name Role Phone Pcp [...] VACCINE (#1) 2020 Results Not on fileafter 10/31/2019 Advance Directives For more information, please contact: [phone] Code Status Date Activated Date Inactivated Comments Full Code 04/04/2018 5:20 PM 04/09/2018 3:29 PM This code status was determined by: Patient
--- OUTSIDE RECORDS SUMMARY | 2020-10-31 21:04 | XMS REPORT | Summary of Care ---
:1985 Author Organization [facility] - Health Address [address] [place] [id number] Care Team Providers Name Role Phone Pcp, Patient Does Not Have A Primary Care Provider +[id number] Reason for Referral MRI/CAT Scan (STAT) Status Reason Specialty Diagnoses / Referred By Referred To Procedures Contact Contact New Request Diagnostic Diagnoses Palpitations Elevated d-dimer Reno Kirkpatrick, Radiology Procedures CT CHEST PULMONARY ANGIOGRAM DO [address] [facility]. [address] [place] [id number] Reason for Visit Reason Comments Palpitations Auth/Cert Status Reason Specialty Diagnoses / Referred By Referred To Procedures Contact Contact Emergency Medicine [facility] Em ergency Dept [address] [place] [address] Fax: Encounter Details Date Type Department Care Team Description 10/13/2020 Emergency ADC-Emergency Reno Kirkpatrick, Palpitations (Primary Dx); Department [address] [facility]. Elevated d-dimer; 132 [facility] [address] [place] [address] [place], [place] [id number] Allergies Active Allergy Reactions Severity Noted Date [...] mellitus with other specified complication, unspecified whether terminal manager insulin use ibuprofen 600 mg Take 1 [...] been in contact with No / Unsure 10/13/2020 12:50 PM DEGREE CLERK someone who was confirmed or suspected to have Coronavirus / COVID-19? documented as of this encounter Last Filed Vital Signs Vital Sign Reading Time Taken Comments Blood Pressure 127/78 10/13/2020 4:30 PM DEGREE CLERK Pulse 105 10/13/2020 4:30 PM DEGREE CLERK Temperature 37.6 C (99.7 F) 10/13/2020 12:51 PM DEGREE CLERK Respiratory Rate 20 10/13/2020 4:30 PM DEGREE CLERK Oxygen Saturation 99% 10/13/2020 4:30 PM DEGREE CLERK Inhaled Oxygen Concentration - - Weight 72.6 kg (160 lb) 10/13/2020 12:51 PM DEGREE CLERK Height 157.5 cm (5' 2") 10/13/2020 12:51 PM DEGREE CLERK Body Mass Index 29.26 10/13/2020 12:51 PM DEGREE CLERK documented in this encounter Discharge Instructions Reno Yoon DO - 10/13/2020 Do not eat any carbohydrates tonight other than vegetables. No sweet drinks. Drink water only. Take your Metformin at dinner. Check your blood sugar. If it is greater than 500 then return to the emergency department. DIAGNOSIS Diagnoses that have been ruled out: None Diagnoses that are still under consideration: None Final diagnoses: Palpitations Elevated d-dimer Hyperglycemia NO LIFE-THREATENING FINDINGS ON TODAY'S EXAM. PROCEDURES IN THE ER TODAY: Orders Placed This Encounter Procedures CT CHEST PULMONARY ANGIOGRAM CBC WITH DIFF COMP. METABOLIC PANEL (17720) D-DIMER LIPASE MAGNESIUM N-TERMINAL PRO-BNP TROPONIN I BASIC METABOLIC PANEL (NA, K, CL, CO2, GLUCOSE, BUN, CREATININE, CA) POCT GLUCOSE(AGE >30DAYS) POCT GLUCOSE (AUTOMATED) POCT GLUCOSE(AGE >30DAYS) POCT GLUCOSE (AUTOMATED) MEDICATIONS ADMINISTERED IN THE ER TODAY AND DISCHARGE MEDICATIONS: Orders Placed This Encounter Medications DISCONTD: insulin NPH (HUMULIN N) injection 10 Units NaCl 0.9% (NS) bolus infusion 1,000 mL insulin regular human (HUMULIN R) injection 10 Units iohexol (OMNIPAQUE 350 BULK-100 mL) injection 100 mL FOLLOW-UP RECOMMENDATIONS: RECOMMEND FOLLOW-UP WITH A PRIMARY CARE PROVIDER OR SPECIALIST IN 2-5 DAYS, ESPECIALLY IF NO IMPROVEMENT IN SYMPTOMS. MAY FOLLOW-UP WITH A PROVIDER OF YOUR CHOICE, SUCH : 1. A PHYSICIAN OF YOUR CHOICE 2. [facility], . LOCATIONS IN [facility] 3. [facility], [address], [place]; [phone] OR, IF YOU WISH TO FOLLOW-UP WITHIN THE [facility], MAY TRY THESE OPTIONS (CLINIC APPOINTMENTS AVAILABLE ON HWDS-SU-GLHL BASIS): 1. SCHEDULE AN APPOINTMENT ONLINE AT [facility] 2. OR CALL THE [facility] ACCESS CENTER AT OR 3. OR CALL YOUR [facility] PHYSICIAN'S OFFICE DIRECTLY IF YOU ARE ALREADY AN ESTABLISHED [facility] PATIENT. RETURN TO ER FOR WORSENING OF SYMPTOMS. AttachmentsThe following attachments cannot be sent through Care Everywhere. Checking Your Blood Sugar, [id number] (Kittitian)Hyperglycemia (High Blood Sugar) (Kittitian)documented in this encounter ED Notes Heike Rodriguez RN - 10/13/2020 12:50 PM CSTPatient states: "I was here earlier today and I got a steroid shot for my sciatica. I've been havingpalpitations since I left. I was checking on my Stepsss watch and it was saying 111" Pmhx: sciatica, type 2 diabetes. Reno Ferrell DO - 10/13/2020 12:39 PM CST EMERGENCY DEPARTMENT ENCOUNTER [facility] Patient Name: Ara Mercado Date of : 1985 35 year old Exam Room:TX2/TX2 Primary Care Physician: PATIENT DOES NOT HAVE A PCP Pre- Hospital Patient Escorted by: Self [9] Mode of Arrival: Personal means [1] EMS Treatment Prior to ED Arrival: ECONOMICS LECTURER treatment: Medication (comment) ECONOMICS LECTURER treatment comments: solumedrol shot today, hydroxizine at 1000 Chief Complaint Chief Complaint Patient presents with Palpitations HPI 35-year-old female presenting with palpitations. Patient was given Solu-Medrol earlier in the nightfor sciatic pain. She states then she had palpitation shortly after receiving the shot. She was discharged after heart rate came down however she has had palpitations over the last several hours. Heart rate is trending around 110-120. She denies any chest pain. She is anxious about her heart ratebeing elevated. Past Medical History / Immunizations No past medical history on file. Tetanus received in last 5 years: Yes Childhood immunizations: Up-to-date Past Surgical History No past surgical history on file. Allergies Allergies Allergen Reactions Flagyl [Metronidazole Hcl] Unknown - See comments Sulfa (Sulfonamide Antibiotics) Unknown - See comments Toradol [Ketorolac] Anxiety Social History Substance & Sexual Activity No substance use or sexual activity history on file. Review of Systems Review of Systems Constitutional: Negative for chills, fatigue and fever. HENT: Negative for sore throat. Eyes: Negative for pain. Respiratory: Negative for cough, chest tightness, shortness of breath and stridor. Breasts: Negative for pain. Cardiovascular: Positive for palpitations. Negative for chest pain. Gastrointestinal: Negative for abdominal pain, constipation and diarrhea. Genitourinary: Negative for bladder incontinence, vaginal discharge and difficulty urinating. Musculoskeletal: Negative for back pain. Skin: Negative for color change and wound. Neurological: Negative for dizziness, seizures, weakness, light-headedness and headaches. Psychiatric/Behavioral: The patient is nervous/anxious. Physical Exam BP 127/78 | Pulse 105 | Temp 37.6 C (99.7 F) (Oral) | Resp 20 | Ht 1.575 m (5' 2") | Wt 72.6 kg (160 lb) | SpO2 99% | BMI 29.26 kg/m Physical Exam Vitals signs and nursing note reviewed. Constitutional: General: She is not in acute distress. Appearance: She is well-developed. She is not diaphoretic. HENT: Head: Normocephalic and atraumatic. Right Ear: External ear normal. Left Ear: External ear normal. Nose: Nose normal. Eyes: General: No scleral icterus. Conjunctiva/sclera: Conjunctivae normal. Pupils: Pupils are equal, round, and reactive to light. Neck: Musculoskeletal: Normal range of motion and neck supple. Cardiovascular: Rate and Rhythm: Regular rhythm. Tachycardia present. Heart sounds: Normal heart sounds. Pulmonary: Effort: Pulmonary effort is normal. Breath sounds: Normal breath sounds. Abdominal: General: Bowel sounds are normal. Palpations: Abdomen is soft. Tenderness: There is no abdominal tenderness. Musculoskeletal: Normal range of motion. Skin: General: Skin is warm and dry. Neurological: Mental Status: She is alert and oriented to person, place, and time. Cranial Nerves: No cranial nerve deficit. Deep Tendon Reflexes: Reflexes are normal and symmetric. Psychiatric: Behavior: Behavior normal. Thought Content: Thought content normal. Labs Recent Results (from the past 24 hour(s)) POCT TEST Collection Time: 10/12/20 11:45 PM Result Value Ref Range POCT PREG negative On board controls acceptable with C Line positive POCT PREG LOT # [id number] POCT PREG TEST DATE 03-23-2022 POCT GLUCOSE (AUTOMATED) Collection Time: 10/13/20 12:22 AM Result Value Ref Range POCT GLU 445 (H) 70 - 110 mg/dL CBC WITH DIFF Collection Time: 10/13/20 1:15 AM Result Value Ref Range WBC 10.84 4.30 - 11.10 10*3/L RBC 4.65 3.93 - 5.25 10*6/L HGB 13.9 11.6 - 15.0 g/dL HCT 40.4 35.7 - 45.2 % MCV 86.9 80.6 - 95.5 fL MCH 29.9 25.9 - 32.8 pg MCHC 34.4 31.6 - 35.1 g/dL RDW-SD 37.6 (L) 39.0 - 49.9 fL RDW-CV 11.8 (L) 12.0 - 15.5 % PLT 438 (H) 166 - 358 10*3/L MPV 9.6 9.5 - 12.9 fL NRBC/100 WBC 0.0 0.0 - 10.0 /100 WBCs NRBC x10^3 <0.01 10*3/L GRAN MAT (NEUT) % 75.0 % IMM GRAN % 0.50 % LYMPH % 16.7 % MONO % 4.8 % EOS % 2.4 % BASO % 0.6 % GRAN MAT x10^3(ANC) 8.14 (H) 1.88 - 7.09 10*3/uL IMM GRAN x10^3 0.05 0.00 - 0.06 10*3/uL LYMPH x10^3 1.81 1.32 - 3.29 10*3/uL MONO x10^3 0.52 0.33 - 0.92 10*3/uL EOS x10^3 0.26 0.03 - 0.39 10*3/uL BASO x10^3 0.06 0.01 - 0.07 10*3/uL COMP. METABOLIC PANEL (42261) Collection Time: 10/13/20 1:15 AM Result Value Ref Range NA 133 (L) 135 - 145 mmol/L K 3.9 3.5 - 5.0 mmol/L CL 97 (L) 98 - 108 mmol/L CO2 TOTAL 26 23 - 31 mmol/L AGAP 10 2 - 16 BUN 11 7 - 23 mg/dL GLUCOSE 432 (H) 70 - 110 mg/dL CREATININE 0.72 0.50 - 1.04 mg/dL TOTAL BILI 0.7 0.1 - 1.1 mg/dL CALCIUM 9.7 8.6 - 10.6 mg/dL T PROTEIN 7.8 6.3 - 8.2 g/dL ALBUMIN 4.4 3.5 - 5.0 g/dL ALK PHOS 118 34 - 122 U/L ALTv 7 5 - 35 U/L AST(SGOT) 15 13 - 40 U/L eGFR Calculation (Non-) 91.1 mL/min/1.73m2 eGFR Calculation () 110.5 mL/min/1.73m2 POCT GLUCOSE (AUTOMATED) Collection Time: 10/13/20 1:42 AM Result Value Ref Range POCT GLU 337 (H) 70 - 110 mg/dL POCT GLUCOSE(AGE 0-30DAYS) Collection Time: 10/13/20 1:43 AM Result Value Ref Range POCT Glu (age 0-30days) 337 (A) 40 - 110 mg/dl CBC WITH DIFF Collection Time: 10/13/20 1:04 PM Result Value Ref Range WBC 11.70 (H) 4.30 - 11.10 10*3/L RBC 4.84 3.93 - 5.25 10*6/L HGB 14.5 11.6 - 15.0 g/dL HCT 42.0 35.7 - 45.2 % MCV 86.8 80.6 - 95.5 fL MCH 30.0 25.9 - 32.8 pg MCHC 34.5 31.6 - 35.1 g/dL RDW-SD 37.4 (L) 39.0 - 49.9 fL RDW-CV 11.8 (L) 12.0 - 15.5 % PLT 475 (H) 166 - 358 10*3/L MPV 9.9 9.5 - 12.9 fL NRBC/100 WBC 0.0 0.0 - 10.0 /100 WBCs NRBC x10^3 <0.01 10*3/L GRAN MAT (NEUT) % 95.8 % IMM GRAN % 0.30 % LYMPH % 3.4 % MONO % 0.4 % EOS % 0.0 % BASO % 0.1 % GRAN MAT x10^3(ANC) 11.20 (H) 1.88 - 7.09 10*3/uL IMM GRAN x10^3 0.04 0.00 - 0.06 10*3/uL LYMPH x10^3 0.40 (L) 1.32 - 3.29 10*3/uL MONO x10^3 0.05 (L) 0.33 - 0.92 10*3/uL EOS x10^3 <0.03 (L) 0.03 - 0.39 10*3/uL BASO x10^3 <0.03 0.01 - 0.07 10*3/uL COMP. METABOLIC PANEL (70231) Collection Time: 10/13/20 1:04 PM Result Value Ref Range NA 127 (L) 135 - 145 mmol/L K 4.9 3.5 - 5.0 mmol/L CL 93 (L) 98 - 108 mmol/L CO2 TOTAL 15 (L) 23 - 31 mmol/L AGAP 19 (H) 2 - 16 BUN 14 7 - 23 mg/dL GLUCOSE 764 (HH) 70 - 110 mg/dL CREATININE 0.68 0.50 - 1.04 mg/dL TOTAL BILI 0.7 0.1 - 1.1 mg/dL CALCIUM 10.0 8.6 - 10.6 mg/dL T PROTEIN 8.3 (H) 6.3 - 8.2 g/dL ALBUMIN 4.7 3.5 - 5.0 g/dL ALK PHOS 132 (H) 34 - 122 U/L ALTv 19 5 - 35 U/L AST(SGOT) 30 13 - 40 U/L eGFR Calculation (Non-) 97.4 mL/min/1.73m2 eGFR Calculation () 118.0 mL/min/1.73m2 D-DIMER Collection Time: 10/13/20 1:04 PM Result Value Ref Range D-DIMER 0.41 (H) <0.41 g/mL (FEU) LIPASE Collection Time: 10/13/20 1:04 PM Result Value Ref Range LIPASE 79 0 - 220 U/L MAGNESIUM Collection Time: 10/13/20 1:04 PM Result Value Ref Range MAGNESIUM 1.7 1.7 - 2.4 mg/dL N-TERMINAL PRO-BNP Collection Time: 10/13/20 1:04 PM Result Value Ref Range NT-proBNP 358 (H) <=125 pg/mL TROPONIN I Collection Time: 10/13/20 1:04 PM Result Value Ref Range TROPONIN I <0.012 <=0.034 ng/mL BASIC METABOLIC PANEL (NA, K, CL, CO2, GLUCOSE, BUN, CREATININE, CA) Collection Time: 10/13/20 2:51 PM Result Value Ref Range NA 129 (L) 135 - 145 mmol/L K 5.1 (H) 3.5 - 5.0 mmol/L CL 97 (L) 98 - 108 mmol/L CO2 TOTAL 20 (L) 23 - 31 mmol/L AGAP 12 2 - 16 BUN 13 7 - 23 mg/dL GLUCOSE 574 (HH) 70 - 110 mg/dL CREATININE 0.65 0.50 - 1.04 mg/dL CALCIUM 10.0 8.6 - 10.6 mg/dL eGFR Calculation (Non-) 102.6 mL/min/1.73m2 eGFR Calculation () 124.3 mL/min/1.73m2 POCT GLUCOSE (AUTOMATED) Collection Time: 10/13/20 3:58 PM Result Value Ref Range POCT GLU 458 (HH) 70 - 110 mg/dL POCT GLUCOSE(AGE >30DAYS) Collection Time: 10/13/20 3:59 PM Result Value Ref Range POCT Glu (age>30days) 458 (A) 70 - 110 mg/dL POCT GLUCOSE(AGE >30DAYS) Collection Time: 10/13/20 4:37 PM Result Value Ref Range POCT Glu (age>30days) 410 (A) 70 - 110 mg/dL POCT GLUCOSE (AUTOMATED) Collection Time: 10/13/20 4:37 PM Result Value Ref Range POCT GLU 410 (H) 70 - 110 mg/dL Imaging [facility] Encounter on 10/13/20 CT CHEST PULMONARY ANGIOGRAM Narrative PROCEDURE: CT ANGIO CHEST WITH CONTRAST - PE PROTOCOL 10/13/2020 2:22 PM CLINICAL INDICATION: Palpitation. PE suspected, intermediate prob, positive D-dimer COMPARISON: None. TECHNIQUE AND FINDINGS: Multidetector helical CT scan of the chest was performed following the intravenous administration of Omnipaque 350, according to pulmonary angiography protocol. Coronal and sagittal series were acquired. FINDINGS: This examination for the diagnosis of pulmonary embolism is adequate. PULMONARY ARTERIES: No pulmonary embolism is seen. the pulmonary artery diameter is within normal limits. No right heart strain. LOWER NECK: No actionable nodule is present in the imaged portion of the thyroid lobes. PULMONARY PARENCHYMA/PLEURA/ AIRWAY: The pulmonary parenchyma is normal. The central airways are patent No pleural fluid is present. No pneumothorax is seen. MEDIASTINUM/ NODES: No mediastinal mass is seen. No enlarged lymph nodes are present. CARDIOVASCULAR: The cardiac chambers are normal in size. No pericardial fluid or thickening is present. The great vessels are normal in caliber. UPPER ABDOMEN: No pathologic process is present in the imaged portion of the upper abdomen. BONES/ CHEST WALL: No aggressive osseous lesion is present. Impression No pulmonary emboli. Clear lungs. Orders and Treatments Orders Placed This Encounter Procedures CT CHEST PULMONARY ANGIOGRAM CBC WITH DIFF COMP. METABOLIC PANEL (64517) D-DIMER LIPASE MAGNESIUM N-TERMINAL PRO-BNP TROPONIN I BASIC METABOLIC PANEL (NA, K, CL, CO2, GLUCOSE, BUN, CREATININE, CA) POCT GLUCOSE(AGE >30DAYS) POCT GLUCOSE (AUTOMATED) POCT GLUCOSE(AGE >30DAYS) POCT GLUCOSE (AUTOMATED) Orders Placed This Encounter Medications DISCONTD: insulin NPH (HUMULIN N) injection 10 Units NaCl 0.9% (NS) bolus infusion 1,000 mL insulin regular human (HUMULIN R) injection 10 Units iohexol (OMNIPAQUE 350 BULK-100 mL) injection 100 mL Procedures See ED Procedure Note Notes & MDM Patient was evaluated for an emergency medical condition related to Palpitations . Differential diagnoses considered by presenting complaints but not limited to: Palpitations, hyperglycemia, medication effect from steroids, thromboembolic disease, and others. ED Course as of Oct 13 1649FriOct 13, 2020 1357 BG 760. IVF and Sq Insulin ordered. [PS] ED Course User Index [PS] Reno Kirkpatrick DO Labs:were ordered, and resulted, any relevant abnormalities were considered. Imaging:Ordered, and resulted, any relevant abnormalities were considered. IV fluids: not indicated Procedures:were not performed. Assessment: 35-year-old female presenting with palpitations and hyperglycemia likely secondary to steroid effect. Labs and imaging reviewed and consistent with hyperglycemia. Patient was given subcu insulin and IV fluids. Blood sugars trended down. CT scan for PE done as her D-dimer was mildly elevated. Negative for pulmonary embolism. Encouraged to drink water and avoid carbohydrate rich meals and drinks. Return precautions given if symptoms worsen as documented discharge instructions. Patient go to [facility] for further evaluation of her palpitations. History, physical exam findings, results of visit, differential diagnosis, medication regimens and plan of future care have been considered. Additional MDM may be found in the ED course. Differential diagnosis considered and final disposition made based on information gathered during evaluation and may not be completely ruled out or specifically listed. Vital signs were rechecked before final disposition and determined to be stable. Diagnosis ICD-10-CM ICD-9-CM 1. Palpitations R00.2 785.1 2. Elevated d-dimer R79.89 790.92 3. Hyperglycemia R73.9 790.29 Disposition & Follow Up ED Disposition ED Disposition Condition Comment Disch - Home Stable Patient's Medications START taking these medications No medications on file CONTINUE taking these medications which have NOT CHANGED ACETAMINOPHEN-CODEINE (TYLENOL-CODEINE #3) 300-30 MG TABLET Take 1 tablet by mouth every 8 (eight) hours as needed for Pain (scale 4-6). Indications: acute pain DICYCLOMINE 20 MG TABLET Take 1 tablet by mouth 4 (four) times daily as needed for Abdominal pain. IBUPROFEN 600 MG TABLET Take 1 tablet by mouth every 6 (six) hours as needed for Pain (scale 4-6). METFORMIN 500 MG TABLET Take 1 tablet by mouth 2 (two) times daily. METHOCARBAMOL (ROBAXIN) 500 MG TABLET Take 1 tablet by mouth 3 (three) times daily as needed forPain (scale 4-6). ONDANSETRON (ZOFRAN) 4 MG TABLET Take 1 tablet by mouth every 8 (eight) hours as needed for Nausea and Vomiting (N/V). START taking Modified Medications as Prescribed No medications on file STOP taking these medications No medications on file Contact information for follow-up ADC-Emergency Department Specialty: Emergency Medicine [address] [place] [id number] Instructions: If symptoms worsen as documented in the discharge Reno Kirkpatrick DO 10/13/2020 1:23 PM ACTIVE COVID-19 PANDEMIC. documented in this encounter Miscellaneous Notes ED Nurse Note - Talita Cruz RN - 10/13/2020 4:56 PM CSTPt discharged with diagnosis of palpitations, elevated d-dimer, and hyperglycemia. Printed and verbal instructions reviewed with and given to patient. No new prescriptions provided for this visit. Pt verbalized understanding of teaching and recommended follow-up. Denies questions or concerns at this time. Pt ambulatory at discharge, appears in no apparent distress. No ataxia noted. EE CLERK documented in this encounter Plan of Treatment Name Type Priority Associated Diagnoses Order S chedule EKG-12 LEAD ROUTINE HEART STATION STAT Palpitations ONCE fo r 1 Occurrences ONCE starting 2019 until 0 Health Maintenance Due Date Last Done Comments [...] Associated Diagnosis Comme nts POCT GLUCOSE Routine 10/13/2020 4:37 Results for this (AUTOMATED) PM DEGREE CLERK procedure are i n the results section. POCT GLUCOSE(AGE LIYAH 10/13/2020 4:37 Hyperglycemia Result s for this >30DAYS) PM DEGREE CLERK procedure are i n the results section. POCT GLUCOSE(AGE LIYAH 10/13/2020 3:59 Hyperglycemia Result s for this >30DAYS) PM DEGREE CLERK procedure are i n the results section. POCT GLUCOSE Routine 10/13/2020 3:58 Results for this (AUTOMATED) PM DEGREE CLERK procedure are i n the results section. BASIC METABOLIC STAT 10/13/2020 2:51 Hyperglycemia Results for this PANEL (NA, K, CL, PM DEGREE CLERK procedure are in CO2, GLUCOSE, BUN, the resul ts CREATININE, CA) section. CT CHEST PULMONARY STAT 10/13/2020 2:29 Palpitations Results for this ANGIOGRAM PM DEGREE CLERK Elevated d-dimer procedure a re in the results section. N-TERMINAL PRO-BNP STAT 10/13/2020 1:04 Palpitations Resul ts for this PM DEGREE CLERK procedure are i n the results section. D-DIMER STAT 10/13/2020 1:04 Palpitations Results for this PM DEGREE CLERK procedure are i n the results section. CBC WITH DIFF STAT 10/13/2020 1:04 Palpitations Results fo r this PM DEGREE CLERK procedure are i n the results section. COMP. METABOLIC STAT 10/13/2020 1:04 Palpitations Results for this PANEL (76994) PM DEGREE CLERK procedure are in the results section. TROPONIN I STAT 10/13/2020 1:04 Palpitations Results for this PM DEGREE CLERK procedure are i n the results section. MAGNESIUM STAT 10/13/2020 1:04 Palpitations Results for this PM DEGREE CLERK procedure are i n the results section. LIPASE STAT 10/13/2020 1:04 Palpitations Results for this PM DEGREE CLERK procedure are i n the results section. CONSENT/REFUSAL Routine 10/13/2020 12:39 FOR DIAGNOSIS AND PM DEGREE CLERK TREATMENT documented in this encounter Results POCT GLUCOSE (AUTOMATED) (10/13/2020 4:37 PM DEGREE CLERK) [facility] Em[employer]ense POCT GLU 410 (H) 70 - 110 mg/dL [facility] Specimen Blood Performing Organization Address City/State/Zipcode Phone Number [facility] CLIA: [id number] [place] [address] [address] POCT GLUCOSE(AGE >30DAYS) (10/13/2020 4:37 PM DEGREE CLERK) Pathologist Sig [employer]ense POCT Glu (age>30days) 410 (A) 70 - 110 mg/dL Specimen Blood - VENOUS POCT GLUCOSE(AGE >30DAYS) (10/13/2020 3:59 PM DEGREE CLERK) [facility] Em[employer]ense POCT Glu (age>30days) 458 (A) 70 - 110 mg/dL Specimen Blood - VENOUS POCT GLUCOSE (AUTOMATED) (10/13/2020 3:58 PM DEGREE CLERK) Pathologist Sig nature POCT GLU 458 (HH) 70 - 110 mg/dL [facility] Specimen Blood Performing Organization Address City/State/Zipcode Phone Number [facility] CLIA: [id number] [place] [address] BASIC METABOLIC PANEL (NA, K, CL, CO2, GLUCOSE, BUN, CREATININE, CA) (10/13/2020 2:51 PM DEGREE CLERK) NA 129 (L) 135 - 145 [facility] mmol/L [facility] K 5.1 (H) 3.5 - 5.0 [facility] mmol/L [facility] CL 97 (L) 98 - 108 mmol/L [facility] CO2 TOTAL 20 (L) 23 - 31 mmol/L [facility] AGAP 12 2 - 16 [facility] BUN 13 7 - 23 mg/dL [facility] GLUCOSE 574 (HH) 70 - 110 mg/dL [facility] CREATININE 0.65 0.50 - 1.04 [facility] mg/dL [facility] CALCIUM 10.0 8.6 - 10.6 [facility] mg/dL [facility] eGFR Calculation 102.6 mL/min/1.73m2 [facility] ([facility] LABORATORY [place]) eGFR Calculation 124.3 mL/min/1.73m2 [facility] () [facility] Specimen Blood - VENOUS Narrative Performed At Association of Glomerular Filtration Rate (GFR) [facility] and Staging of Kidney Disease* [...] tests). Performing Organization Address City/State/Zipcode Phone Number [facility] CLIA: [id number] [place] [address] CHEST PULMONARY ANGIOGRAM (10/13/2020 2:29 PM DEGREE CLERK) Specimen Impressions Performed At PACS/VR/DOSE No pulmonary emboli. Clear lungs. Narrative Performed At PROCEDURE: CT ANGIO CHEST WITH CONTRAST - PE PROTOCOL 10/13/2020 2:22 PM PACS/VR/DOSE CLINICAL INDICATION: Palpitation. PE suspected, interm ediate prob, positive D-dimer COMPARISON: None. TECHNIQUE AND FINDINGS: Multidetector he lical CT scan of the chest was performed following the intravenous admi nistration of Omnipaque 350, according to pulmonary angiography bradly col. Coronal and sagittal series were acquired. FINDINGS: This examination for the diagnosis of pu lmonary embolism is adequate. PULMONARY ARTERIES: No pulmonary embolis m is seen. the pulmonary artery diameter is within normal limits. No rig ht heart strain. LOWER NECK: No actionable nodule is pres ent in the imaged portion of the thyroid lobes. PULMONARY PARENCHYMA/PLEURA/ AIRWAY: The pulmonary p arenchyma is normal. The central airways are patent No pleural fluid is pre sent. No pneumothorax is seen. MEDIASTINUM/ NODES: No mediastinal mass is seen. No enlarged lymph nodes are present. CARDIOVASCULAR: The cardiac chambers are normal in siz e. No pericardial fluid or thickening is present. The grea t vessels are normal in caliber. UPPER ABDOMEN: No pathologic process is present in the imaged portion of the upper abdomen. BONES/ CHEST WALL: No aggressive osseous lesion is present. Procedure Note [facility], Radiant Results Inft User - 2019 2:40 PM DEGREE CLERK PROCEDURE: CT ANGIO CHEST WITH CONTRAST - PE PROTOCOL 10/13/2020 2:22 PM CLINICAL INDICATION: Palpitation. PE mariam pected, intermediate prob, positive D-dimer COMPARISON: None. TECHNIQUE AND FINDINGS: Multidetector he lical CT scan of the chest was performed following the intravenous admi nistration of Omnipaque 350, according to pulmonary angiography bradly col. Coronal and sagittal series were acquired. FINDINGS: This examination for the diagnosis of pu lmonary embolism is adequate. PULMONARY ARTERIES: No pulmonary embolis m is seen. the pulmonary artery diameter is within normal limits. No rig ht heart strain. LOWER NECK: No actionable nodule is pres ent in the imaged portion of the thyroid lobes. PULMONARY PARENCHYMA/PLEURA/ AIRWAY: The pulmonary parenchyma is normal. The central airways are patent No pleura l fluid is present. No pneumothorax is seen. MEDIASTINUM/ NODES: No mediastinal mass is seen. No enlarged lymph nodes are present. CARDIOVASCULAR: The cardiac chambers are normal in size. No pericardial fluid or thickening is present. The grea t vessels are normal in caliber. UPPER ABDOMEN: No pathologic process is present in the imaged portion of the upper abdomen. BONES/ CHEST WALL: No aggressive osseous lesion is present. IMPRESSION No pulmonary emboli. Clear lungs. Performing Organization Address [facility] Phone Number PACS/VR/DOSE TROPONIN I (10/13/2020 1:04 PM DEGREE CLERK) Pathologist Sig nature TROPONIN I <0.012 <=0.034 ng/mL [facility] Specimen Blood - VENOUS Narrative Performed At Equal or Less than 0.034 ng/ml---Normal [facility] Note: Cardiac troponin begins to rise 3-4 hours after the onset of ischemia. Repeat in 4-6 hours if the sample was drawn within 3-4 hours of the onset of the symptom and found normal. Between 0.035 and 0.120 ng/mL--- Borderline. Questionable myocardial injury or necros is Note: Serial measurement may be necessary to [...] patient's use of biotin. Performing Organization Address [facility]/Zipcode Phone Number [facility] CLIA: [id number] [place] [address] N-TERMINAL PRO-BNP (10/13/2020 1:04 PM DEGREE CLERK) Pathologist Sig nature NT-proBNP 358 (H) <=125 pg/mL [facility] Specimen Blood - VENOUS Narrative Performed At Biotin has been reported to cause a negative [facility] bias, interpret results relative to patient's use of biotin. Performing Organization Address [facility] Phone Number [facility] CLIA: [id number] [place] [address] MAGNESIUM (10/13/2020 1:04 PM DEGREE CLERK) Pathologist Sig nature MAGNESIUM 1.7 1.7 - 2.4 mg/dL [facility] Specimen Blood - VENOUS Performing Organization Address [facility] Phone Number [facility] CLIA: [id number] [place] [address] LIPASE (10/13/2020 1:04 PM DEGREE CLERK) Pathologist Sig nature LIPASE 79 0 - 220 U/L [facility] Specimen Blood - VENOUS Performing Organization Address [facility] Phone Number [facility] CLIA: [id number] [place] [address] D-DIMER (10/13/2020 1:04 PM DEGREE CLERK) Pathologist Sig nature D-DIMER 0.41 (H) <0.41 g/mL (FEU) [facility] Specimen Blood - VENOUS Narrative Performed At This test may be used in conjunction with a [facility] clinical pretest probability (PTP) assessment model to exclude venous thromboembolism (VTE) in patients suspected of deep venous thrombosis (DVT) and pulmonary embolism (PE) A D-Dimer value less than 0.50 g/ml (FEU) has a negative predicative value of 96 to 100% (95% CI)and 97 to 100% (95% CI) as an aid in the diagnosis of deep vein thrombosis (DVT) and pulmonary embolism when there is low or moderate pretest probability of PE or DVT. D-Dimer values are expressed in initial fibrinogen equivalent units (FEU)" The assay results should be used with other information, including the clinical context, in forming a diagnosis. Performing Organization Address [facility] Phone Number [facility] CLIA: [id number] [place] [address] COMP. METABOLIC PANEL (86253) (10/13/2020 1:04 PM DEGREE CLERK) NA 127 (L) 135 - 145 [facility] mmol/L [facility] K 4.9 3.5 - 5.0 [facility] mmol/L [facility] CL 93 (L) 98 - 108 mmol/L [facility] CO2 TOTAL 15 (L) 23 - 31 mmol/L [facility] AGAP 19 (H) 2 - 16 [facility] BUN 14 7 - 23 mg/dL [facility] GLUCOSE 764 (HH) 70 - 110 mg/dL [facility] CREATININE 0.68 0.50 - 1.04 [facility] mg/dL [facility] TOTAL BILI 0.7 0.1 - 1.1 mg/dL [facility] CALCIUM 10.0 8.6 - 10.6 [facility] mg/dL [facility] T PROTEIN 8.3 (H) 6.3 - 8.2 g/dL [facility] ALBUMIN 4.7 3.5 - 5.0 g/dL [facility] ALK PHOS 132 (H) 34 - 122 U/L [facility] ALTv 19 5 - 35 U/L [facility] AST(SGOT) 30 13 - 40 U/L [facility] eGFR Calculation 97.4 mL/min/1.73m2 [facility] [place] eGFR Calculation 118.0 mL/min/1.73m2 [facility] ([facility]) [facility] Specimen Blood - VENOUS Narrative Performed At Association of Glomerular Filtration Rate (GFR) [facility] and Staging of Kidney Disease* [...] tests). Performing Organization Address City/State/Zipcode Phone Number [facility] CLIA: [id number] [place] [address] CBC WITH DIFF (10/13/2020 1:04 PM DEGREE CLERK) Pathologist Sig nature WBC 11.70 (H) 4.30 - 11.10 [facility] 10*3/L [facility] RBC 4.84 3.93 - 5.25 [facility] 10*6/L [facility] HGB 14.5 11.6 - 15.0 [facility] g/dL [facility] HCT 42.0 35.7 - 45.2 % [facility] MCV 86.8 80.6 - 95.5 fL [facility] MCH 30.0 25.9 - 32.8 pg [facility] MCHC 34.5 31.6 - 35.1 [facility] g/dL [facility] RDW-SD 37.4 (L) 39.0 - 49.9 fL [facility] RDW-CV 11.8 (L) 12.0 - 15.5 % [facility] PLT 475 (H) 166 - 358 [facility] 10*3/L [facility] MPV 9.9 9.5 - 12.9 fL [facility] NRBC/100 WBC 0.0 0.0 - 10.0 /100 [facility] WBCs [facility] NRBC x10^3 <0.01 10*3/L [facility] GRAN MAT (NEUT) % 95.8 % [facility] IMM GRAN % 0.30 % [facility] LYMPH % 3.4 % [facility] MONO % 0.4 % [facility] EOS % 0.0 % [facility] BASO % 0.1 % [facility] GRAN MAT x10^3(ANC) 11.20 (H) 1.88 - 7.09 [facility] 10*3/uL [facility] IMM GRAN x10^3 0.04 0.00 - 0.06 [facility] 10*3/uL [facility] LYMPH x10^3 0.40 (L) 1.32 - 3.29 [facility] 10*3/uL [facility] MONO x10^3 0.05 (L) 0.33 - 0.92 [facility] 10*3/uL [facility] EOS x10^3 <0.03 (L) 0.03 - 0.39 [facility] 10*3/uL [facility] BASO x10^3 <0.03 0.01 - 0.[address]/[facility] LABORATORY Specimen Blood - VENOUS Performing Organization Address City/State/Zipcode Phone Number [facility] CLIA: [id number] [place], [place] [id number] LABORATORY [address] documented in this encounter Visit Diagnoses Diagnosis Palpitations - Primary Elevated d-dimer Abnormal coagulation profile Hyperglycemia Other abnormal glucose documented in this encounter Administered Medications Medication Order MAR Action Action Date Dose Rate Site insulin regular human Given 10/13/2020 2:12 PM 10 Units Abdomen-SC (HUMULIN R) injection 10 DEGREE CLERK Units 10 Units, Subcutaneous, ONCE, 1 dose, Fri10/13/20 at 1515, LIYAH iohexol (OMNIPAQUE 350 BULK-100 mL) Given 10/13/2020 2:26 PM CS T 100 mL injection 100 mL 100 mL, Intravenous, ONCE, 1 dose, Fri10/13/20 at 1445, Routine NaCl 0.9% (NS) bolus infusion New Bag 10/13/2020 2:11 PM DEGREE CLERK 1,000 mL 999 mL/hr 1,000 mL at 999 mL/hr, 1,000 mL, IV Piggyback, ONCE, 1 dose, Fri10/13/20 at 1515, STAT documented in this encounter
[2020-10-31 21:31] LABS: Absolute Lymphocytes (CBC) 2.6 K/uL (0.7-4.9); Basophils % 1.2 % (0-1.3); Hematocrit 41.1 % (36.0-45.0); Lymphocytes % 25.6 % (15.3-44.8); MPV 8.1 fL (7.6-11.3); RBC Red Blood Cell Count 4.78 M/uL (3.86-4.86)
[2020-10-31 21:43] LABS: ALT/SGPT 7 U/L (12-78); AST/SGOT 16 U/L (15-37); Albumin 3.6 g/dL (3.4-5.0); Alkaline Phosphatase 92 U/L (45-117); BUN Blood Urea Nitrogen 5 mg/dL (7-18); Bicarbonate 25 mmol/L (21-32); Bilirubin Direct < 0.1 mg/dL (0-0.2); Bilirubin Total 0.4 mg/dL (0.2-1.0); Glucose Level 372 mg/dL (74-106); Magnesium 1.8 mg/dL (1.8-2.4); Potassium 3.5 mmol/L (3.5-5.1); Protein, Total 7.5 g/dL (6.4-8.2); Sodium Level 137 mmol/L (136-145)
[2020-10-31] MEDS ORDERED: NA CHLORIDE 0.9% 1,000 ML ONE (21:48)
[2020-10-31 21:55] LABS: NT PRO-BNP 22 pg/mL (<125); Troponin (Emerg Dept Use Only) < 0.02 ng/mL (0.0-0.045)
[2020-10-31 21:57] LABS: Urine Blood NEGATIVE (NEG); Urine Glucose 3+ (NEG); Urine Protein NEGATIVE (NEG)
[2020-10-31 22:08] LABS: Barbiturates NEGATIVE (NEGATIVE); Benzodiazepines NEGATIVE (NEGATIVE); Cocaine NEGATIVE (NEGATIVE); METHAMPHETAM NEGATIVE (NEGATIVE); Methadone NEGATIVE (NEGATIVE); Opiates NEGATIVE (NEGATIVE); Phencyclidine NEGATIVE (NEGATIVE); THC Cannibis NEGATIVE (NEGATIVE)
[2020-10-31] MEDS ORDERED: MORPHINE 4 MG/ML SYR ONE (22:23)
[2020-10-31] MEDS ORDERED: ONDANSETRON 4 MG/2 ML VIAL ONE (22:23)
[2020-10-31 22:39] LABS: Lipase 145 U/L (73-393)
[2020-10-31] MEDS ORDERED: DIPHENHYDRAMINE 50 MG/ML VIAL ONE (22:40)
[2020-10-31] MEDS ORDERED: FAMOTIDINE 20 MG/2 ML VIAL IV ONE (22:52)
--- NOTE | 2020-10-31 23:01 | EDPHYS ---
Physician Documentation [facility] Name: Ara Plunkett Age: 35 yrs Sex: Female : 1985 Arrival Date: 10/31/2020 Time: 20:59 Bed 28 Private MD: ED Physician Rashad Melgoza HPI: 10/31 22:25 This 35 yrs old Female presents to ER via Ambulatory with complaints of bobbi racing heartbeat, lightheaded. 22:25 The patient presents with abdominal pain in the upper abdomen, in the lower abdomen. bobbi Onset: The symptoms/episode began/occurred 1 day(s) ago. The symptoms do not radiate. Associated signs and symptoms: Pertinent positives: nausea. The symptoms are described as crampy. Modifying factors: The symptoms are alleviated by nothing, the symptoms are aggravated by nothing. Severity of pain: At its worst the pain was mild in the emergency department the pain has resolved. The patient has not experienced similar symptoms in the past. 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 - Social history:: Smoking status: Patient reports the use of cigarette tobacco products, smokes one-half pack cigarettes per day, Patient/guardian denies using alcohol, street drugs, IV drugs. - Family history:: not pertinent. ROS: 22:25 Constitutional: Negative for fever, chills, and weight loss, Eyes: Negative for injury, bobbi pain, redness, and discharge, ENT: Negative for injury, pain, and discharge, Neck: Negative for injury, pain, and swelling, Cardiovascular: Negative for chest pain, palpitations, and edema, Respiratory: Negative for shortness of breath, cough, wheezing, and pleuritic chest pain, Back: Negative for injury and pain, : Negative for injury, bleeding, discharge, and swelling, MS/Extremity: Negative for injury and deformity, Skin: Negative for injury, rash, and discoloration, Neuro: Negative for headache, weakness, numbness, tingling, and seizure, Psych: Negative for depression, anxiety, suicide ideation, homicidal ideation, and hallucinations, Allergy/Immunology: Negative for hives, rash, and allergies, Endocrine: Negative for neck swelling, polydipsia, polyuria, polyphagia, and marked weight changes, Hematologic/Lymphatic: Negative for swollen nodes, abnormal bleeding, and unusual bruising. 22:25 Abdomen/GI: Positive for abdominal pain, nausea, of the right upper quadrant and left upper quadrant. Exam: 22:25 Constitutional: This is a well developed, well nourished patient who is awake, alert, bobbi and in no acute distress. Head/Face: Normocephalic, atraumatic. Eyes: Pupils equal round and reactive to light, extra-ocular motions intact. Lids and lashes normal. Conjunctiva and sclera are non-icteric and not injected. Cornea within normal limits. Periorbital areas with no swelling, redness, or edema. ENT: Nares patent. No nasal discharge, no septal abnormalities noted. Tympanic membranes are normal and external auditory canals are clear. Oropharynx with no redness, swelling, or masses, exudates, or evidence of obstruction, uvula midline. Mucous membranes moist. Neck: Trachea midline, no thyromegaly or masses palpated, and no cervical lymphadenopathy. Supple, full range of motion without nuchal rigidity, or vertebral point tenderness. No Meningismus. Chest/axilla: Normal chest wall appearance and motion. Nontender with no deformity. No lesions are appreciated. Cardiovascular: Regular rate and rhythm with a normal S1 and S2. No gallops, murmurs, or rubs. Normal PMI, no JVD. No pulse deficits. Respiratory: Lungs have equal breath sounds bilaterally, clear to auscultation and percussion. No rales, rhonchi or wheezes noted. No increased work of breathing, no retractions or nasal flaring. Back: No spinal tenderness. No costovertebral tenderness. Full range of motion. Skin: Warm, dry with normal turgor. Normal color with no rashes, no lesions, and no evidence of cellulitis. MS/ Extremity: Pulses equal, no cyanosis. Neurovascular intact. Full, normal range of motion. Neuro: Awake and alert, GCS 15, oriented to person, place, time, and situation. Cranial nerves II-XII grossly intact. Motor strength 5/5 in all extremities. Sensory grossly intact. Cerebellar exam normal. Normal gait. Psych: Awake, alert, with orientation to person, place and time. Behavior, mood, and affect are within normal limits. 22:25 Abdomen/GI: Inspection: abdomen appears normal, Bowel sounds: normal, Palpation: mild abdominal tenderness, in all quadrants, Liver: no appreciated palpable abnormalities, Hernia: not appreciated. 23:01 ECG was reviewed by the Attending Physician. [facility] Vital Signs: 21:10 BP 130 / 88; Pulse 106; Resp 18; Temp 98.6; Pulse Ox 100% on R/A; Weight 45.36 kg; mg2 Height 5 ft. 2 in. (157.48 cm); 22:22 BP 136 / 84; Pulse 101; Resp 18; Pulse Ox 100% on R/A; mg2 23:17 BP 130 / 80; Pulse 95; Resp 18; Temp 98; Pulse Ox 100% on R/A; Pain 0/10; mg2 21:10 Body Mass Index 18.29 (45.36 kg, 157.48 cm) mg2 MDM: 21:07 Patient medically screened. bobbi 22:27 Differential diagnosis: cholecystitis, Cholelithiasis, non-specific abd pain. Data [facility] reviewed: vital signs, nurses notes, lab test result(s), EKG, radiologic studies, plain films. Data interpreted: desk monitor: rate is 101 beats/min, rhythm is regular, Pulse oximetry: on room air is 100 %. Test interpretation: by ED physician or midlevel provider: ECG, plain radiologic studies. Counseling: I had a detailed discussion with the patient and/or guardian regarding: the historical points, exam findings, and any diagnostic results supporting the discharge/admit diagnosis, lab results. 10/31 21:09 Order name: Basic Metabolic Panel [facility] 10/31 21: Order name: CBC with Diff [facility] 10/31 21: Order name: LFT's [facility] 10/31 21: Order name: Magnesium [facility] 10/31 21: Order name: NT PRO-BNP [facility] 10/31 21: Order name: Troponin (emerg Dept Use Only) [facility] 10/31 21: Order name: TSH [facility] 10/31 21: Order name: Urine Culture [facility] 12/08 21:09 Order name: D-Dimer [facility] 10/31 21:09 Order name: UDS [facility] 10/31 21:32 Order name: CBC with Automated Diff; Complete Time: 22:24 EDMI 10/31 21:44 Order name: Basic Metabolic Panel; Complete Time: 22:56 EDMI 10/31 21:44 Order name: Liver (Hepatic) Function; Complete Time: 22:56 EDMI 10/31 21:44 Order name: Magnesium; Complete Time: 22:56 EDMI 10/31 21:09 Order name: XRAY Chest (1 view) [facility] 10/31 21:51 Order name: Urine --Ancillary (enter results) [facility] 10/31 21:51 Order name: Urine Dipstick--Ancillary (enter results) [facility] 10/31 21:58 Order name: Urine --Ancillary; Complete Time: 22:24 EDMI 10/31 21:58 Order name: Urine Dipstick-Ancillary; Complete Time: 22:24 EDMI 10/31 22:08 Order name: Urine Drug Screen; Complete Time: 22:24 EDMI 10/31 22:10 Order name: D-Dimer; Complete Time: 22:24 EDMI 10/31 22:12 Order name: Troponin (Emerg Dept Use Only); Complete Time: 22:29 EDMI 10/31 22:12 Order name: NT PRO-BNP; Complete Time: 22:29 EDMI 10/31 22:12 Order name: Thyroid Stimulating Hormone; Complete Time: 22:29 EDMI 10/31 22:29 Order name: Abdomen with Erect XRAY [facility] 10/31 21:09 Order name: EKG; Complete Time: 21:10 [facility] 10/31 21:09 Order name: Cardiac monitoring; Complete Time: 21:19 [facility] 10/31 21:09 Order name: EKG - Nurse/Tech; Complete Time: 21:19 [facility] 10/31 21:09 Order name: IV Saline Lock; Complete Time: 21:19 [facility] 10/31 21:09 Order name: Labs collected and sent; Complete Time: 21:19 [facility] 10/31 21:09 Order name: O2 Per Protocol; Complete Time: 21:19 [facility] 10/31 21:09 Order name: O2 Sat Monitoring; Complete Time: 21:19 [facility] 10/31 21:09 Order name: Urine Dipstick-Ancillary (obtain specimen); Complete Time: 21:51 [facility] 10/31 21:09 Order name: Urine Test (obtain specimen); Complete Time: 21:51 [facility] EC:01 Rate is 102 beats/min. Rhythm is regular. QRS Cardale is Normal. NV interval is normal. bobbi QRS interval is normal. QT interval is normal. No Q waves. T waves are Normal. No ST changes noted. Clinical impression: NSR w/ Non-specific ST/T Changes and No evidence of ischemia. Interpreted by me. Reviewed by me. Administered Medications: 21:32 Drug: NS 0.9% 1000 ml Route: IV; Rate: 1 bolus; Site: left forearm; mg2 23:05 Follow up: Response: No adverse reaction; IV Status: Completed infusion; IV Intake: mg2 1000ml 22:11 Drug: morphine 4 mg Route: IVP; Site: left forearm; mg2 23:04 Follow up: Response: No adverse reaction mg2 22:11 Drug: Zofran (Ondansetron) 4 mg Route: IVP; Site: left forearm; mg2 23:04 Follow up: Response: No adverse reaction mg2 22:30 Drug: Benadryl 12.5 mg Route: IVP; Site: left forearm; mg2 23:04 Follow up: Response: No adverse reaction mg2 22:31 Drug: Pepcid 20 mg Route: IVP; Site: left forearm; mg2 23:04 Follow up: Response: No adverse reaction mg2 23:10 Drug: Insulin Regular Human 10 units {Co-Signature: [email or web address] (Dillon Wilde RN).} Route: mg2 IVP; Site: left forearm; 23:16 Follow up: Response: No adverse reaction; Medication administered at discharge. mg2 Disposition: 10/31/20 23:00 Discharged to Home. Impression: Abdominal tenderness, Functional dyspepsia, Gastroparesis, Type 2 diabetes mellitus, Cholelithiasis. - Condition is Stable. - Discharge Instructions: Abdominal Pain, Adult, Type 2 Diabetes Mellitus, Diagnosis, Adult, Indigestion, Nausea and Vomiting, Adult, Abdominal Pain, Adult, [id number], Indigestion, [id number], Type 2 Diabetes Mellitus, Diagnosis, Adult, [id number], Gastroparesis. - Prescriptions for Bentyl 20 mg Oral Tablet - take 1 tablet by ORAL route every 6 hours As needed; 20 tablet. Pepcid 20 mg Oral Tablet - take 1 tablet by ORAL route every 12 hours for 10 days; 20 tablet. Zofran 4 mg Oral Tablet - take 1 tablet by ORAL route every 12 hours As needed; 20 tablet. - Medication Reconciliation Form, Thank You Letter, Antibiotic Education, Prescription Opioid Use form. - Follow up: Private Physician; When: 2 - 3 days; Reason: Recheck today's complaints, Continuance of care, Re-evaluation by your physician. Follow up: Alejandro Nguyễn MD; When: 2 - 3 days; Reason: Recheck today's complaints, Re-evaluation by your physician. - Problem is new. - Symptoms have improved. Signatures: Dispatcher [employer] EDMS Rashad Melgoza MD MD cha Gardose, Michele RN RN mg2 Dillon Wilde RN [email or web address] Corrections: (The following items were deleted from the chart) 23:18 23:00 10/31/2020 23:00 Discharged to Home. Impression: Abdominal tenderness; Functional mg2 dyspepsia; Gastroparesis; Type 2 diabetes mellitus; Cholelithiasis. Condition is Stable. Forms are Medication Reconciliation Form, Thank You Letter, Antibiotic Education, Prescription Opioid Use. Follow up: Private Physician; When: 2 - 3 days; Reason: Recheck today's complaints, Continuance of care, Re-evaluation by your physician. Follow up: Alejandro Nguyễn; When: 2 - 3 days; Reason: Recheck today's complaints, Re-evaluation by your physician. Problem is new. Symptoms have improved. bobbi
--- NOTE | 2020-10-31 23:01 | ER ---
Nurse's Notes [facility] Name: Ara Plunkett Age: 35 yrs Sex: Female : 1985 Arrival Date: 10/31/2020 Time: 20:59 Bed 28 Private MD: Diagnosis: Abdominal tenderness;Functional dyspepsia;Gastroparesis;Type 2 diabetes mellitus;Cholelithiasis Presentation: 10/31 21:10 Chief complaint: Patient states: my heart is racing, i have headache and been vomiting mg2 for 4 days. Coronavirus screen: Client denies travel out of the [place] in the last 14 days. Ebola Screen: No symptoms or risks identified at this time. Initial Sepsis Screen: Does the patient meet any 2 criteria? No. Patient's initial sepsis screen is negative. Does the patient have a suspected source of infection? No. Patient's initial sepsis screen is negative. Risk Assessment: Do you want to hurt yourself or someone else? Patient reports no desire to harm self or others. Onset of symptoms was October 2020. 21:10 Method Of Arrival: Ambulatory mg2 21:10 Acuity: CHARISSA 3 mg2 Triage Assessment: 21:19 General: Appears in no apparent distress. comfortable, Behavior is calm, cooperative. mg2 Pain: Complains of pain in headache. EENT: No signs and/or symptoms were reported regarding the EENT system. Neuro: Level of Consciousness is awake, alert, obeys commands, Oriented to person, place, time, situation. Cardiovascular: Capillary refill < 3 seconds Patient's skin is warm and dry. Cardiovascular: Reports palpitations. Respiratory: Airway is patent Respiratory effort is even, unlabored, Respiratory pattern is regular, symmetrical. GI: Reports vomiting. : No signs and/or symptoms were reported regarding the genitourinary system. Derm: Skin is intact, is healthy with good turgor, Skin is pink, warm \T\ dry. normal. Musculoskeletal: Circulation, motion, and sensation intact. Capillary refill < 3 seconds. 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 - Social history:: Smoking status: Patient reports the use of cigarette tobacco products, smokes one-half pack cigarettes per day, Patient/guardian denies using alcohol, street drugs, IV drugs. - Family history:: not pertinent. Screenin:20 Abuse screen: Denies threats or abuse. Denies injuries from another. Nutritional mg2 screening: No deficits noted. Tuberculosis screening: No symptoms or risk factors identified. Fall Risk IV access (20 points). Assessment: 21:20 General: see triage note. mg2 Vital Signs: 21:10 BP 130 / 88; Pulse 106; Resp 18; Temp 98.6; Pulse Ox 100% on R/A; Weight 45.36 kg; mg2 Height 5 ft. 2 in. (157.48 cm); 22:22 BP 136 / 84; Pulse 101; Resp 18; Pulse Ox 100% on R/A; mg2 23:17 BP 130 / 80; Pulse 95; Resp 18; Temp 98; Pulse Ox 100% on R/A; Pain 0/10; mg2 21:10 Body Mass Index 18.29 (45.36 kg, 157.48 cm) mg2 ED Course: 20:59 Patient arrived in ED. am2 21:07 Rashad Melgoza MD is Attending Physician. bobbi 21:11 Triage completed. mg2 21:12 Urbano Espinoza, RN is Primary Nurse. mg2 21:12 Arm band placed on. mg2 21:20 Patient has correct armband on for positive identification. mg2 21:20 No provider procedures requiring assistance completed. Inserted saline lock: 20 gauge mg2 in left forearm, using aseptic technique. Blood collected. 21:44 XRAY Chest (1 view) In Process Unspecified. EDMS 22:50 Abdomen with Erect XRAY In Process Unspecified. EDMS 23:00 Alejandro Nguyễn MD is Referral Physician. bobbi 23:17 IV discontinued, intact, bleeding controlled, No redness/swelling at site. Pressure mg2 dressing applied. Administered Medications: 21:32 Drug: NS 0.9% 1000 ml Route: IV; Rate: 1 bolus; Site: left forearm; mg2 23:05 Follow up: Response: No adverse reaction; IV Status: Completed infusion; IV Intake: mg2 1000ml 22:11 Drug: morphine 4 mg Route: IVP; Site: left forearm; mg2 23:04 Follow up: Response: No adverse reaction mg2 22:11 Drug: Zofran (Ondansetron) 4 mg Route: IVP; Site: left forearm; mg2 23:04 Follow up: Response: No adverse reaction mg2 22:30 Drug: Benadryl 12.5 mg Route: IVP; Site: left forearm; mg2 23:04 Follow up: Response: No adverse reaction mg2 22:31 Drug: Pepcid 20 mg Route: IVP; Site: left forearm; mg2 23:04 Follow up: Response: No adverse reaction mg2 23:10 Drug: Insulin Regular Human 10 units {Co-Signature: lobo (Dillon Wilde RN).} Route: mg2 IVP; Site: left forearm; 23:16 Follow up: Response: No adverse reaction; Medication administered at discharge. mg2 Intake: 23:05 IV: 1000ml; Total: 1000ml. mg2 Outcome: 23:00 Discharge ordered by . bobbi 23:17 Discharged to home ambulatory. mg2 23:17 Condition: good 23:17 Discharge instructions given to patient, Instructed on discharge instructions, follow up and referral plans. medication usage, Demonstrated understanding of instructions, follow-up care, medications, Prescriptions given X 3. 23:18 Patient left the ED. mg2 Addendum: 11/05/2020 14:33 Addendum: Culture Results: Positive urine culture. Phone call Attempt #1 left voice a a5 mail. Signatures: Dispatcher [employer] Rashad Graham MD MD cha Calderon, Audri, RN RN aa5 Nicole Price Michele, VÍCTOR RN mg2 Dillon Wilde RN jd3
[2020-10-31] MEDS ORDERED: INSULIN -REGULAR HUMAN 50 UNIT/0.5 ML ML ONE (23:22)
--- NOTE | 2020-11-01 08:20 | RAD REPORT ---
EXAM DESCRIPTION: RAD - Chest Single View - 10/31/2020 9:44 pm CLINICAL HISTORY: PALPITATIONS COMPARISON: Portable October 03 TECHNIQUE: AP portable chest image was obtained 10/31/2020 9:44 pm . FINDINGS: Lungs are clear. Heart and vasculature are normal. No measurable pleural effusion and no p neumothorax. No acute bony abnormality seen. No acute aortic findings suspected. IMPRESSION: No acute cardiopulmonary process. No significant change from comparison study.
--- NOTE | 2020-11-01 08:25 | RAD REPORT ---
EXAM DESCRIPTION: RAD - Abdomen W Erect - 10/31/2020 10:53 pm CLINICAL HISTORY: ABD PAIN COMPARISON: No comparisons TECHNIQUE: Supine and upright views of the abdomen were obtained. FINDINGS: Bowel gas pattern is nonspecific with no obstruction, free air or pneumatosis. No abnormal calcifications. Patient has multiple phleboliths in the pelvis. Theoretically, 1 of the phleboliths could be a distal ureteral calculus if the patient has any renal colic symptoms. No soft tissue abnor mality. No significant bony finding. IMPRESSION: Negative two-view abdomen examination.
--- NOTE | 2020-11-01 11:42 | EKG ---
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
== END 2020-10-31 23:18 | disposition home or self-care (01) ==
LOC: ER 20:59
DX: K30 Functional dyspepsia (principal); K80.20 Calculus of gallbladder without cholecystitis without obstruction; E11.43 Type 2 diabetes mellitus with diabetic autonomic (poly)neuropathy; K31.84 Gastroparesis; F17.210 Nicotine dependence, cigarettes, uncomplicated; Z88.1 Allergy status to other antibiotic agents; Z88.5 Allergy status to narcotic agent; Z88.6 Allergy status to analgesic agent
CPT/HCPCS: 36415; 71045; 74019; 80048; 80076; 80307; 81003; 81025; 83690; 83735; 83880; 84439; 84443; 84484; 85025; 85379; 87077; 87086; 87088; 87186; 93005; 96361; 96374; 96375; 99284; J1200; J2405; J7030

== ENCOUNTER 2020-11-07 21:06 | Emergency (ER) | payer SELFPAY ==
--- OUTSIDE RECORDS SUMMARY | 2020-11-07 21:09 | XMS REPORT | Clinical Summary ---
:1985 Author Organization [facility] Address [address] [place] [address] Care Team Providers Name Role Phone Pcp [...] VACCINE (#1) 2020 Results Not on fileafter 11/07/2019 Advance Directives For more information, please contact: [phone] Code Status Date Activated Date Inactivated Comments Full Code 04/04/2018 5:20 PM 04/09/2018 3:29 PM This code status was determined by: Patient
--- OUTSIDE RECORDS SUMMARY | 2020-11-07 21:09 | XMS REPORT | Clinical Summary ---
:1985 Author Organization [facility] Address [address] [place] [address] Care Team Providers Name Role Phone Asked, [...] of diab etes mellitus; Thrombocytosis (HCC) after 11/07/2019 Surgical History Surgery Date Site/Laterality Comments NO [...] Comments Blood Pressure 145/81 09/29/2020 7:00 PM ASSOCIATE SOFTWARE DEVELOPER Pulse 83 09/29/2020 7:00 PM ASSOCIATE SOFTWARE DEVELOPER Temperature 36.6 C (97.9 F) 09/29/2020 2:23 PM ASSOCIATE SOFTWARE DEVELOPER Respiratory Rate 16 09/29/2020 7:00 PM ASSOCIATE SOFTWARE DEVELOPER Oxygen Saturation 99% 09/29/2020 7:00 PM ASSOCIATE SOFTWARE DEVELOPER Inhaled Oxygen Concentration - - Weight 71.2 kg (157 lb) 09/29/2020 2:19 PM ASSOCIATE SOFTWARE DEVELOPER Height 157.5 cm (5' 2") 09/29/2020 2:19 PM ASSOCIATE SOFTWARE DEVELOPER Body Mass Index 28.72 09/29/2020 2:19 PM ASSOCIATE SOFTWARE DEVELOPER Plan of Treatment Health Maintenance Due Date Last Done Comments DIABETES: RETINAL EYE EXAM 1993 DIABETIC FOOT EXAM 1993 URINE MICROALBUMIN 1993 CERVICAL CANCER SCREENING 2004 INFLUENZA VACCINE 06/24/2020 Procedures Procedure Name Priority Date/Time Associated Comments Diagnosis POC GLUCOSE Routine 09/29/2020 7:13 Results for this PM ASSOCIATE SOFTWARE DEVELOPER procedure are i n the results section. TROPONIN Timed 09/29/2020 6:54 Results for this PM ASSOCIATE SOFTWARE DEVELOPER procedure are i n the results section. CT RENAL STONE PROTOCOL STAT 09/29/2020 5:17 Results for this PM ASSOCIATE SOFTWARE DEVELOPER procedure are i n the results section. HCG QUALITATIVE, URINE STAT 09/29/2020 4:13 R esults for this SCREEN PM ASSOCIATE SOFTWARE DEVELOPER procedure are i n the results section. URINALYSIS SCREEN AND STAT 09/29/2020 4:13 Re sults for this MICROSCOPY, WITH REFLEX PM ASSOCIATE SOFTWARE DEVELOPER proc edure are in TO CULTURE the results section. TROPONIN, I-STAT STAT 09/29/2020 4:09 Results for this PM ASSOCIATE SOFTWARE DEVELOPER procedure are i n the results section. LIPASE LEVEL STAT 09/29/2020 4:09 Results for this PM ASSOCIATE SOFTWARE DEVELOPER procedure are i n the results section. CREATINE KINASE, TOTAL STAT 09/29/2020 4:09 R esults for this (CPK) PM ASSOCIATE SOFTWARE DEVELOPER procedure are i n the results section. ESTIMATED GFR STAT 09/29/2020 4:09 Results fo r this PM ASSOCIATE SOFTWARE DEVELOPER procedure are i n the results section. HC COMPLETE BLD COUNT STAT 09/29/2020 4:09 Re sults for this W/AUTO DIFF PM ASSOCIATE SOFTWARE DEVELOPER procedure are i n the results section. B NATRIURETIC PEPTIDE STAT 09/29/2020 4:09 Re sults for this PM ASSOCIATE SOFTWARE DEVELOPER procedure are i n the results section. COMPREHENSIVE METABOLIC STAT 09/29/2020 4:09 Results for this PANEL PM ASSOCIATE SOFTWARE DEVELOPER procedure are i n the results section. XR CHEST 1 VW PORTABLE STAT 09/29/2020 4:01 R esults for this PM ASSOCIATE SOFTWARE DEVELOPER procedure are i n the results section. ECG ED PRELIMINARY Routine 09/29/2020 2:33 Resul ts for this INTERPRETATION PM ASSOCIATE SOFTWARE DEVELOPER procedure are in the results section. ECG 12-LEAD STAT 09/29/2020 2:09 Results for this PM ASSOCIATE SOFTWARE DEVELOPER procedure are i n the results section. after 11/07/2019 Results POC glucose (09/29/2020 7:13 PM ASSOCIATE SOFTWARE DEVELOPER) Pathologist Sig nature POC glucose 207 (H) 65 - 99 mg/dL [place] Comment: [facility] Manager Employee Benefits Name: [employer] [facility] Device ID: [id number] Chartable: Notified nurse Specimen Blood Performing Organization Address City/[facility]/ZIP Code [place] [address], [address] [place] [address] 5 PATHOLOGY AND GENOMIC MEDICINE [place] [address] [facility] [address] Troponin (09/29/2020 6:54 PM ASSOCIATE SOFTWARE DEVELOPER) Troponin <0.006 0.000 - 0.040 [place] Comment: ng/mL [facility] In patients suspected of having a [...] Code [place] [address], [address] [place] [address] 5 PATHOLOGY AND GENOMIC MEDICINE [facility] THE [address] [facility] [address] CT Renal Stone Protocol (09/29/2020 5:17 PM ASSOCIATE SOFTWARE DEVELOPER) Specimen Narrative Performed At Examination: CT RENAL [...] calculus or obstructi on. Please see above. [facility]-[id number] Procedure Note Interface, Radiology Results Incoming - 09/29/2020 5:46 PM ASSOCIATE SOFTWARE DEVELOPER Examination: CT RENAL STONE PROTOCOL Clinical history: [...] calculu s or obstruction. Please see above. [facility]-[id number] Performing Organization Address City/State/ZIP Code Phon e Number [facility] [address] [place] [address] Urinalysis screen and microscopy, with reflex to culture (09/29/2020 4:13 PM ASSOCIATE SOFTWARE DEVELOPER) Specimen site Clean catch [facility] Color, UA Yellow [facility] Appearance, UA Clear [facility] Specific gravity, UA 1.028 1.001 - 1.[address] [facility] pH, UA 5.0 5.0 - 8.[address] [facility] Protein, UA 1+ (A) Negative [facility] Glucose, UA 3+ (A) Negative [facility] Ketones, UA Trace (A) Negative [facility] Bilirubin, UA Negative Negative [facility] Blood, UA Negative Negative [facility] Nitrite, UA Negative Negative [facility] Urobilinogen, UA <2.0 <2.[address] [facility] Leukocyte esterase, Negative Negative [facility] Epithelial cells, UA 1 /HPF [facility] WBC, UA 2 0 - 5 /HPF [facility] RBC, UA 1 0 - 5 /HPF [facility] Yeast, UA None seen [facility] Yeast with None seen [facility] pseudohyphae, UA [facility][1] Specimen Urine Performing Organization Address City/State/ZIP [place] [address], [address] [place], [place] [address] 5 PATHOLOGY AND GENOMIC MEDICINE [facility] THE [address] [facility] [address] hCG qualitative, urine screen (09/29/2020 4:13 PM ASSOCIATE SOFTWARE DEVELOPER) Pathologist [facility] [place] hCG qualitative, NegativeComment: [place] urine Sensitivity of HCG [facility] test: 25 mIU/ml HOSPITAL Specimen Urine Performing Organization Address City/[facility]/ZIP Code Phon e [place] [address], [address] [place] [address] 5 PATHOLOGY AND GENOMIC MEDICINE [place] [facility] [address] [facility] [address] Estimated GFR (09/29/2020 4:09 PM ASSOCIATE SOFTWARE DEVELOPER) Pathologist [facility] [place] Estimated GFR >=90 mL/min/1.73 [place] Comment: m2 [facility] Catergory Units Interpretation HERN[facility]NDEZ DLANDS G1 [...] in 2014. Specimen Plasma Performing Organization Address [facility] Phon e [place] [address], [address] [place] [address] PATHOLOGY AND GENOMIC MEDICINE [place] [facility] [address] [facility] [address] Troponin, I-Stat (09/29/2020 4:09 PM ASSOCIATE SOFTWARE DEVELOPER) Pathologist [facility] [place] Troponin, I-Stat 0.00 0.00 - 0.08 [place] Comment: ng/mL [facility] 0.09 - 1.49 ng/ml May indicate increa sed risk of acute [facility] coronary syndrome. HOSPITAL >=1.5 ng/ml Consistent with acute myocardial infarction. The diagnostic value of a single normal or non-diagnos tic result is questionable. Serial samples at 2-6 hour i ntervals are required to rule out acute myocardial injury. Specimen Plasma Performing Organization Address City/[facility]/ZIP Code Phon [place] [address], [address] [place] [address] PATHOLOGY AND GENOMIC MEDICINE [facility] THE [address] [facility] [address] CBC with platelet and differential (09/29/2020 4:09 PM ASSOCIATE SOFTWARE DEVELOPER) WBC 12.08 (H) 4.50 - 11.00 JAFFE k/uL [facility] RBC 4.84 4.20 - 5.50 [place] m/uL [facility] HGB 14.6 12.0 - 16.0 [place] g/dL [facility] HCT 42.6 37.0 - 47.0 % [facility] MCV 88.0 82.0 - 100.0 JAFFE fL [facility] MCH 30.2 27.0 - 34.[address] [facility] MCHC 34.3 31.0 - 37.0 [place] g/dL [facility] RDW - SD 39.1 37.0 - 55.[address] [facility] MPV 9.7 8.8 - 13.[address] [facility] Platelet count 541 (H) 150 - 400 k/uL [facility] Nucleated RBC 0.00 /[address] [facility] Neutrophils 80.3 (H) 39.0 - 69.0 % [facility] Lymphocytes 14.8 (L) 25.0 - 45.0 % [facility] Monocytes 3.3 0.0 - 10.0 % [facility] Eosinophils 0.9 0.0 - 5.0 % [facility] Basophils 0.5 0.0 - 1.0 % [facility] Immature granulocytes 0.2Comment: 0.0 - 1.0 % [place] "Immature [facility] THE granulocytes" [facility] (promyelocytes HOSPITAL , myelocytes, metamyelocytes ) Specimen Plasma Performing Organization Address City/State/ZIP Code [facility] [place] [address], [address] [place], [place] [address] 5 PATHOLOGY AND GENOMIC MEDICINE [facility] THE [address] [facility] [address] B natriuretic peptide (09/29/2020 4:09 PM ASSOCIATE SOFTWARE DEVELOPER) Pathologist Sig nature BNP 36 0 - 100 pg/mL [facility] Specimen Blood Performing Organization Address City/[facility]/ZIP [facility] Phon e [place] [address], [address] [place] [address] 5 PATHOLOGY AND GENOMIC MEDICINE [facility] THE [address] [facility] [address] Lipase level (09/29/2020 4:09 PM ASSOCIATE SOFTWARE DEVELOPER) Pathologist Sig nature Lipase 32 13 - 60 U/L [facility] Specimen Plasma Performing Organization Address City/State/ZIP [place] [address], [address] [place] [address] 5 PATHOLOGY AND GENOMIC MEDICINE [facility] [address] [facility] [address] Creatine kinase, total (CPK) (09/29/2020 4:09 PM ASSOCIATE SOFTWARE DEVELOPER) Pathologist Sig nature Creatine kinase 39 26 - 192 U/L [facility] Specimen Plasma Performing Organization Address City/[facility] Code Phon [place] [address], [address] [place] [address] 5 PATHOLOGY AND GENOMIC MEDICINE [facility] THE [address] [facility] [address] Comprehensive metabolic panel (09/29/2020 4:09 PM ASSOCIATE SOFTWARE DEVELOPER) Sodium 136 135 - 148 [place] mEq/L [facility] Potassium 3.3 (L) 3.5 - 5.0 [place] mEq/L [facility] Chloride 101 98 - 112 [place] mEq/L [facility] CO2 24 24 - 31 mEq/L [facility] Anion gap 11 7 - 15 mEq/L [facility] BUN 5 (L) 6 - 20 mg/dL [facility] Creatinine 0.62 0.50 - 0.90 [place] mg/dL [facility] Glucose 289 (H) 65 - 99 mg/dL [facility] Calcium 9.5 8.3 - 10.2 [place] mg/dL [facility] Protein 8.3 6.3 - 8.3 [place] Comment: g/dL [facility] [place] 4.6-7.0 g/dL HOSPITAL 1 week 4.4-7.6 g/dL 7 months-1year 5.1-7.3 g/dL 1-2 years 5.6-7.5 g/dL >3 years 6.0-8.0 g/dL 18-150 6.3-8.3 g/dL Albumin 4.1 3.5 - 5.0 [place] g/dL [facility] A/G ratio 1.0 0.7 - 3.[address] [facility] Alkaline phosphatase 117 (H) 35 - 104 U/L [facility] AST 20 10 - 35 U/L [facility] ALT 7 5 - 50 U/L [facility] Total bilirubin 0.5 0.0 - 1.2 [place] mg/dL [facility] Specimen Plasma Performing Organization Address City/[facility]/[place]IP [place] [address], [address] [place], [place] [address] PATHOLOGY AND GENOMIC MEDICINE [facility] THE [address] [facility] [address] XR Chest 1 Vw Portable (09/29/2020 4:01 PM ASSOCIATE SOFTWARE DEVELOPER) Specimen Narrative Performed At EXAMINATION: XR CHEST 1 VW PORTABLE [facility] CLINICAL HISTORY:35 years Female ches t pain [facility] COMPARISON: None IMPRESSION: Cardiomediastinal silhouette and pulmonary vasculature are within normal limits. Lungs are clear. Bones are unr emarkable. [id number] Procedure Note Interface, Radiology Results Incoming - 09/29/2020 4:07 PM ASSOCIATE SOFTWARE DEVELOPER EXAMINATION: XR CHEST 1 VW PORTABLE CLINICAL HISTORY:35 years Female chest pain [facility] COMPARISON: None IMPRESSION: Cardiomediastinal silhouette and pulmona ry vasculature are within normal limits. Lungs are clear. Bones are unremarkable. [id number] Performing Organization Address City/State/ZIP Code Phon e Number [facility] [address] [place] [address] ECG ED Preliminary Interpretation - Not an Order (09/29/2020 2:33 PM ASSOCIATE SOFTWARE DEVELOPER) Narrative Performed At Ezra Persaud MD 09/30/2020 8:15 AM ECG ED Preliminary Interpretation - Not an Order Performed by: Ezra Persaud MD Authorized by: Ezra Persaud MD ECG reviewed by ED Physician in the abse nce of a clinical professor: yes Interpretation: Interpretation: normal Rate: ECG rate: 81 ECG rate assessment: normal Rhythm: Rhythm: sinus rhythm Ectopy: Ectopy: none QRS: QRS axis: Normal QRS intervals: Normal Conduction: Conduction: normal ST segments: ST segments: Normal T waves: T waves: non-specific ECG 12 lead (09/29/2020 2:09 PM ASSOCIATE SOFTWARE DEVELOPER) Pathologist Sig nature Ventricular rate 81 [facility] Atrial rate 81 [facility] ME interval 138 [facility] QRSD interval 88 [facility] QT interval 390 [facility] QTC interval 453 [facility] P axis 1 29 [facility] QRS axis 1 70 [facility] T wave axis 24 [facility] EKG impression Normal sinus [facility] rhythm-Nonspecific T wave abnormality-Abnormal ECG-No previous ECGs available-Electronicall y Signed By Lake Lawson MD ([id number]) on 09/30/2020 9:08:53 AM Specimen Narrative Performed At This result has an attachment that is no t available. Performing Organization Address City/State/ZIP Code Phon e Number [facility] MUSE [address] [place] [address] after 11/07/2019 Advance Directives For more information, please contact: [phone] Type Date Recorded Patient Studio Operations Engineer In Charge Explanati on Advance Directives, Living Will 09/29/2020 5:11 PM and Medical Power of Precinct Commanding Officer
--- OUTSIDE RECORDS SUMMARY | 2020-11-07 21:11 | XMS REPORT | Summary of Care ---
:1985 Author Organization [facility] Address [address] [place] [id number] Care Team Providers Name Role Phone Pcp, Patient Does Not Have A Primary Care Provider +[id number] Reason for Referral MRI/CAT Scan (STAT) Status Reason Specialty Diagnoses / Referred By Referred To Procedures Contact Contact New Request Diagnostic Diagnoses Generalized abdominal pain Tatum Venegas Radiology Procedures CT ABDOMEN PELVIS W CONTRAST MD Vinicio [address] [place] [address] Reason for Visit Reason Comments LOW BACK PAIN Leg Pain Abdominal Pain Auth/Cert Status Reason Specialty Diagnoses / Referred By Referred To Procedures Contact Contact Emergency Medicine [facility] Em ergency Dept [address] [place] [address] Fax: Encounter Details Date Type Department Care Team Description 11/07/2020 Emergency ADC-Emergency Tatum Venegas Generaliz ed abdominal pain (Primary Dx); Department Lumbar radiculopathy [address] [place] [address] [phone] Allergies Active Allergy Reactions Severity Noted Date Comments Metronidazole Hcl Unknown - See comments 02/19/2020 Sulfa (Sulfonamide Antibiotics) Unknown - See comments 10/12/2020 Ketorolac Anxiety 09/16/2020 documented as of this encounter (statuses as of 11/07/2020) Medications Medication Sig Dispensed Refills Start Date [...] mellitus with other specified complication, unspecified whether longterm insulin use ibuprofen 600 mg Take 1 [...] acute pain (scale 4-6). Indications: acute pain traMADoL (ULTRAM) 50 Take 1 tablet by 20 tablet 0 11/07/2020 Active mg tabletIndications: mouth every 6 acute pain (six) hours as needed for Pain (scale 7-10). Indications: acute pain dicyclomine 20 mg Take 1 tablet by 20 tablet 0 11/07/2020 Active tabletIndications: mouth every 6 Generalized abdominal (six) hours as pain needed for Abdominal pain. ondansetron (ZOFRAN) 4 Take 1 tablet by 12 tablet 0 11/07/2020 Active mg tabletIndications: mouth every 8 Generalized abdominal (eight) hours as pain needed for Nausea and Vomiting (N/V). methocarbamoL Take 1 tablet by 20 tablet 0 11/07/2020 Active (ROBAXIN) 500 mg mouth every 6 tabletIndications: (six) hours as Lumbar radiculopathy needed (MUSCLE SPASM). documented as of this encounter (statuses as of 11/07/2020) Active Problems No known active problemsdocumented as of this encounter (statuses as of 11/07/2020) Social History Tobacco Use Types Packs/Day Years Used Date Never Assessed Sex Assigned at Date Recorded Not on file COVID-19 Exposure Response Date Recorded In the last month, have you been in contact with No / Unsure 11/07/2020 1:54 AM ELECTRO WINNING OPERATOR someone who was confirmed or suspected to have Coronavirus / COVID-19? documented as of this encounter Last Filed Vital Signs Vital Sign Reading Time Taken Comments Blood Pressure 139/89 11/07/2020 4:30 AM ELECTRO WINNING OPERATOR Pulse 91 11/07/2020 4:30 AM ELECTRO WINNING OPERATOR Temperature 36.7 C (98.1 F) 11/07/2020 1:58 AM ELECTRO WINNING OPERATOR Respiratory Rate 16 11/07/2020 4:30 AM ELECTRO WINNING OPERATOR Oxygen Saturation 99% 11/07/2020 4:30 AM ELECTRO WINNING OPERATOR Inhaled Oxygen Concentration - - Weight 68 kg (150 lb) 11/07/2020 1:58 AM ELECTRO WINNING OPERATOR Height 160 cm (5' 3") 11/07/2020 1:58 AM ELECTRO WINNING OPERATOR Body Mass Index 26.57 11/07/2020 1:58 AM ELECTRO WINNING OPERATOR documented in this encounter Discharge Instructions Tatum Pena MD - 11/07/2020 DIAGNOSIS Diagnoses that have been ruled out: None Diagnoses that are still under consideration: None Final diagnoses: Generalized abdominal pain Lumbar radiculopathy NO LIFE-THREATENING FINDINGS ON TODAY'S EXAM. PROCEDURES IN THE ER TODAY: Orders Placed This Encounter Procedures CT ABDOMEN PELVIS W CONTRAST URINALYSIS POCT TEST CBC WITH DIFF COMP. METABOLIC PANEL (94817) LIPASE MEDICATIONS ADMINISTERED IN THE ER TODAY AND DISCHARGE MEDICATIONS: Orders Placed This Encounter Medications dicyclomine (BENTYL) injection 20 mg iohexol (OMNIPAQUE 350 BULK-150 mL) injection 120 mL FENTanyl PF (SUBLIMAZE (PF)) injection 50 mcg ondansetron (ZOFRAN (PF)) injection 4 mg traMADoL (ULTRAM) 50 mg tablet dicyclomine 20 mg tablet ondansetron (ZOFRAN) 4 mg tablet methocarbamoL (ROBAXIN) 500 mg tablet FOLLOW-UP RECOMMENDATIONS: RECOMMEND FOLLOW-UP WITH YOUR PRIMARY CARE PROVIDER OR WITH DR CHOW , GASTROENTEROLOGY SPECIALIST OR WITH DR ARVIZU, ORTHOPEDIC APPLICATIONS PACKAGER IN 2-5 DAYS, ESPECIALLY IF NO IMPROVEMENT IN SYMPTOMS DISCUSSED MAY FOLLOW-UP WITH A PROVIDER OF YOUR CHOICE, SUCH : 1. A PHYSICIAN OF YOUR CHOICE 2. [facility], . LOCATIONS IN [facility] 3. [facility], [address] [place] [address]; [phone] OR, IF YOU WISH TO FOLLOW-UP WITHIN THE [facility], MAY TRY THESE OPTIONS (CLINIC APPOINTMENTS AVAILABLE ON FNMI-BC-OCMG BASIS): 1. SCHEDULE AN APPOINTMENT ONLINE AT [email or web address] 2. OR CALL THE [facility] ACCESS CENTER AT OR 3. OR CALL YOUR [facility] PHYSICIAN'S OFFICE DIRECTLY IF YOU ARE ALREADY AN ESTABLISHED [facility] PATIENT. RETURN TO ER FOR WORSENING OF SYMPTOMS documented in this encounter ED Notes Shasha John RN - 11/07/2020 1:54 AM CSTCC: Patient states that she was seen for sciatica on 10/12/20. She states it has not gotten any better, has had no relief, and the pain is hurting again. PMHx: DM Type 2, sciatica, anxiety PSH: none MEDS: metformin and hydroxyzine LMP: 10/21/20 Tetanus: UTD Awake, alert, oriented, resp reg unlabored, skin warm and dry, color appropriate for race, moves allext without difficulty, amb with no assist Appears in no distress Tatum Hill MD - 11/07/2020 1:46 AM CST [facility] Emergency Department Note Patient Name: Ara Mercado Date of : 1985 35 year old female Treatment Room: TX1/TX1 Primary Care Physician: PATIENT DOES NOT HAVE A PCP Patient Escorted by: Self [9] Mode of Arrival: Personal means [1] EMS Treatment Prior to ED Arrival: PERFORMANCE REPORTER treatment: None Travel and Exposure Screening: Symptoms Does patient have any of these symptoms?: (not recorded) Exposure Screening Has patient had contact with someone with a communicable disease in the last month?: (not recorded) Diseases exposed to:: (not recorded) Is Patient ?: (not recorded) Exposure Date: (not recorded) Chief Complaint: Chief Complaint Patient presents with LOW BACK PAIN Leg Pain Abdominal Pain History of Present Illness: Ara Mercado is a 35 year old female who presented to the ED for evaluation of diffuse abdominalpain X3 days. Pain is diffuse, rated at 9/.10, intermittent. No fever or chills. No melena. No knownaggravating or relieving factors. Also rep(orts low back pain that radiates to LLE that has been diagnosed as sciatica. Pain has not improved since last ED visit and patient has not followed up as recommended. No cauda equina symptoms Past Medical History/Immunizations: No past medical history on file. Tetanus received in last 5 years: Yes Childhood immunizations: Up-to-date Allergies: Allergies Allergen Reactions Flagyl [Metronidazole Hcl] Unknown - See comments Sulfa (Sulfonamide Antibiotics) Unknown - See comments Toradol [Ketorolac] Anxiety Past Social History: Substance & Sexual Activity No substance use or sexual activity history on file. Past Surgical History: No past surgical history on file. Review of Systems: Review of Systems Constitutional: Positive for appetite change. Negative for activity change, chills, fatigue, fever and unexpected weight change. HENT: Negative. Eyes: Negative. Respiratory: Negative. Breasts: Negative. Cardiovascular: Negative. Gastrointestinal: Positive for abdominal pain and nausea. Negative for abdominal distention, anal bleeding, blood in stool, constipation, diarrhea, rectal pain and vomiting. Genitourinary: Negative. Musculoskeletal: Positive for back pain. Skin: Negative. Neurological: Negative. Psychiatric/Behavioral: Negative. Endocrine: Endocrine negative Physical Exam: ED Triage Vitals [11/07/20 0158] Weight 68 kg (150 lb) Actual or estimated Estimated by patient/family report Height 1.6 m (5' 3") BP (!) 149/115 Pulse 106 Resp 14 Temp 36.7 C (98.1 F) Temp source Oral SpO2 97 % Measured on Room air Physical Exam Vitals signs and nursing note reviewed. Constitutional: General: She is not in acute distress. Appearance: Normal appearance. She is well-developed and normal weight. She is not ill-appearing,toxic-appearing or diaphoretic. HENT: Head: Normocephalic and atraumatic. Nose: Nose normal. No congestion or rhinorrhea. Mouth/Throat: Mouth: Mucous membranes are moist. Pharynx: Oropharynx is clear. No oropharyngeal exudate or posterior oropharyngeal erythema. Eyes: General: No scleral icterus. Right eye: No discharge. Left eye: No discharge. Conjunctiva/sclera: Conjunctivae normal. Pupils: Pupils are equal, round, and reactive to light. Neck: Musculoskeletal: Normal range of motion and neck supple. No neck rigidity or muscular tenderness. Thyroid: No thyromegaly. Cardiovascular: Rate and Rhythm: Normal rate and regular rhythm. Pulses: Normal pulses. Heart sounds: Normal heart sounds. No murmur. Pulmonary: Effort: Pulmonary effort is normal. No respiratory distress. Breath sounds: Normal breath sounds. No stridor. No wheezing, rhonchi or rales. Chest: Chest wall: No tenderness. Abdominal: General: Bowel sounds are normal. There is no distension. Palpations: Abdomen is soft. There is no mass. Tenderness: There is no abdominal tenderness. There is no right CVA tenderness, left CVA tenderness, guarding or rebound. Hernia: No hernia is present. Musculoskeletal: Normal range of motion. General: No swelling, tenderness, deformity or signs of injury. Right lower leg: No edema. Left lower leg: No edema. Lymphadenopathy: Cervical: No cervical adenopathy. Skin: General: Skin is warm and dry. Capillary Refill: Capillary refill takes less than 2 seconds. Coloration: Skin is not jaundiced or pale. Findings: No bruising, erythema, lesion or rash. Neurological: General: No focal deficit present. Mental Status: She is alert and oriented to person, place, and time. Cranial Nerves: No cranial nerve deficit. Sensory: No sensory deficit. Motor: No weakness or abnormal muscle tone. Coordination: Coordination normal. Gait: Gait normal. Deep Tendon Reflexes: Reflexes normal. Psychiatric: Behavior: Behavior normal. Thought Content: Thought content normal. Judgment: Judgment normal. Radiology: Hospital Encounter on 11/07/20 CT ABDOMEN PELVIS W CONTRAST Narrative EXAM: CT ABDOMEN PELVIS W CONTRAST HISTORY: 35 years -old Female with Abd pain, acute, generalized TECHNIQUE: Contrast - IV contrast was given, no oral contrast was given Portal venous phase - abdomen and pelvis Reconstructions - coronal and sagittal planes COMPARISON: 09/16/2020 FINDINGS: Thoracic: Included images of the lower chest demonstrate no abnormalities. Hepatobiliary: The liver is unremarkable without focal lesion. Noncalcified cholelithiasis, similar prior. No biliary dilation. Pancreas: No abnormality identified in the pancreas. Spleen: No abnormality identified in the spleen. Adrenals: No abnormality identified in either adrenal gland. Genitourinary: No parenchymal abnormality identified in either kidney. Left dromedary hump.2 No hydronephrosis. Mild circumferential urinary bladder wall thickening. Trace free fluid within the pelvis. The uterus is unremarkable. A 1.6 cm left corpus luteum. Unremarkable right ovary. Gastrointestinal: No evidence of bowel obstruction or perienteric inflammation. The appendix is normal (2:93). Vascular/Lymphatics: No enlarged lymph nodes by CT size criteria. Abdominal aorta is normal in caliber. MSK/Body Wall: No concerning bony lesion identified. Peritoneum/Other: No extraluminal air. No extraluminal fluid. Impression 1. No acute findings within the abdomen and pelvis. 2. Cholelithiasis. Normal appendix. Preliminary Report Dictated by Resident: Virginia Yunwuagwu Lab Results (24h): Recent Results (from the past 24 hour(s)) URINALYSIS Collection Time: 11/07/20 2:51 AM Result Value Ref Range APPEARANCE Clear Clear COLOR Doris (A) Yellow PH 6.0 4.8 - 8.0 SP GRAVITY 1.022 1.003 - 1.030 GLU U QUAL 500 mg/dL (A) Normal BLOOD Negative Negative KETONES Negative Negative PROTEIN Negative Negative UROBILIN 2.0 mg/dL (A) Normal BILIRUBIN Negative Negative NITRITE Positive (A) Negative LEUK TANISHA Negative Negative RBC/HPF 1 0 - 3 HPF WBC/HPF 4 0 - 5 HPF BACTERIA Moderate (A) Negative MUCOUS Slight (A) Negative LPF SQ EPITH 1 HPF CBC WITH DIFF Collection Time: 11/07/20 2:51 AM Result Value Ref Range WBC 8.60 4.30 - 11.10 10*3/L RBC 5.10 3.93 - 5.25 10*6/L HGB 15.0 11.6 - 15.0 g/dL HCT 43.5 35.7 - 45.2 % MCV 85.3 80.6 - 95.5 fL MCH 29.4 25.9 - 32.8 pg MCHC 34.5 31.6 - 35.1 g/dL RDW-SD 36.6 (L) 39.0 - 49.9 fL RDW-CV 11.9 (L) 12.0 - 15.5 % PLT 484 (H) 166 - 358 10*3/L MPV 9.4 (L) 9.5 - 12.9 fL NRBC/100 WBC 0.0 0.0 - 10.0 /100 WBCs NRBC x10^3 <0.01 10*3/L GRAN MAT (NEUT) % 55.5 % IMM GRAN % 0.30 % LYMPH % 32.3 % MONO % 7.4 % EOS % 3.8 % BASO % 0.7 % GRAN MAT x10^3(ANC) 4.76 1.88 - 7.09 10*3/uL IMM GRAN x10^3 0.03 0.00 - 0.06 10*3/uL LYMPH x10^3 2.78 1.32 - 3.29 10*3/uL MONO x10^3 0.64 0.33 - 0.92 10*3/uL EOS x10^3 0.33 0.03 - 0.39 10*3/uL BASO x10^3 0.06 0.01 - 0.07 10*3/uL COMP. METABOLIC PANEL (41553) Collection Time: 11/07/20 2:51 AM Result Value Ref Range NA 136 135 - 145 mmol/L K 3.5 3.5 - 5.0 mmol/L CL 99 98 - 108 mmol/L CO2 TOTAL 28 23 - 31 mmol/L AGAP 9 2 - 16 BUN 5 (L) 7 - 23 mg/dL GLUCOSE 330 (H) 70 - 110 mg/dL CREATININE 0.58 0.50 - 1.04 mg/dL TOTAL BILI 0.6 0.1 - 1.1 mg/dL CALCIUM 10.0 8.6 - 10.6 mg/dL T PROTEIN 7.9 6.3 - 8.2 g/dL ALBUMIN 4.5 3.5 - 5.0 g/dL ALK PHOS 102 34 - 122 U/L ALTv 5 5 - 35 U/L AST(SGOT) 19 13 - 40 U/L eGFR Calculation (Non-) 117.0 mL/min/1.73m2 eGFR Calculation () 141.8 mL/min/1.73m2 LIPASE Collection Time: 11/07/20 2:51 AM Result Value Ref Range LIPASE 106 0 - 220 U/L POCT TEST Collection Time: 11/07/20 3:13 AM Result Value Ref Range POCT PREG negative On board controls acceptable with C Line present POCT PREG LOT # [id number] POCT PREG TEST DATE 07/24/2022 Orders and Treatments: Orders Placed This Encounter Procedures CT ABDOMEN PELVIS W CONTRAST URINALYSIS POCT TEST CBC WITH DIFF COMP. METABOLIC PANEL (52348) LIPASE Orders Placed This Encounter Medications dicyclomine (BENTYL) injection 20 mg iohexol (OMNIPAQUE 350 BULK-150 mL) injection 120 mL FENTanyl PF (SUBLIMAZE (PF)) injection 50 mcg ondansetron (ZOFRAN (PF)) injection 4 mg traMADoL (ULTRAM) 50 mg tablet dicyclomine 20 mg tablet ondansetron (ZOFRAN) 4 mg tablet methocarbamoL (ROBAXIN) 500 mg tablet ED COURSE MDM: Coding Scoring Tools: No data recorded Diagnosis/Impression: ICD-10-CM ICD-9-CM 1. Generalized abdominal pain R10.84 789.07 2. Lumbar radiculopathy M54.16 724.4 Disposition/Condition: ED Disposition ED Disposition Condition Comment Disch - Home Stable Discharge Medications: Patient's Medications START taking these medications DICYCLOMINE 20 MG TABLET Take 1 tablet by mouth every 6 (six) hours as needed for Abdominal pain. METHOCARBAMOL (ROBAXIN) 500 MG TABLET Take 1 tablet by mouth every 6 (six) hours as needed (MUSCLE SPASM). ONDANSETRON (ZOFRAN) 4 MG TABLET Take 1 tablet by mouth every 8 (eight) hours as needed for Nausea and Vomiting (N/V). TRAMADOL (ULTRAM) 50 MG TABLET Take 1 tablet by mouth every 6 (six) hours as needed for Pain (scale 7-10). Indications: acute pain CONTINUE taking these medications which have NOT [...] taking these medications No medications on file Follow-up: Electronically signed by: Tatum Venegas MD 11/07/2020 4:39 AM TRO WINNING OPERATOR documented in this encounter Miscellaneous Notes ED Nurse Note - Celia Cho RN - 11/07/2020 5:18 AM CSTPt given printed and verbal discharge instructions regarding generalized abdominal pain and lumbar radiculopathy, encouraged hydration. Prescriptions provided. Discussed tramadol and robaxin side affects and to avoid driving/operating machinery/or engaging in activities requiring alertness while taking. Pt verbalized understanding of instructions, pt awake [...] Treatment Name Type Priority Associated Diagnoses Date/Ti ks CT ABDOMEN PELVIS W IMAGING STAT Generalized abdominal 11/07/2020 3:40 AM CONTRAST pain ELECTRO WINNING OPERATOR Health Maintenance Due Date Last Done Comments VARICELLA VACCINES ( - 1984 2-dose childhood series) Depression Screening 1995 DTaP,Tdap,and Td Vaccines (1 - 2002 Tdap) PAP SMEAR 2004 INFLUENZA VACCINE (#1) 2020 PNEUMOCOCCAL 0-64 YEARS COMBINED Aged Out No longer eligible based on SERIES patient's age to complete this topic documented as of this encounter Procedures Procedure Name Priority Date/Time Associated Diagnosis Comme nts CT ABDOMEN PELVIS W STAT 11/07/2020 3:40 AM Generalized ab dominal CONTRAST ELECTRO WINNING OPERATOR pain Procedure Note - [facility], Radia nt Results Inft User - 11/07/2020 3:53 AM ELECTRO WINNING OPERATOR EXAM: CT ABDOMEN PELVIS W CONTRAST HISTORY: 35 years -old Femal e with Abd pain, acute, generalized TECHNIQUE: Contrast - IV con trast was given, no oral contrast was given Portal venous phase - abdome n and pelvis Reconstructions - coronal an d sagittal planes COMPARISON: 09/16/2020 FINDINGS: Thoracic: Included images of the lower chest demonstrate no abnormalities. Hepatobiliary: The liver is unremarkable without focal lesion. Noncalcified cholelithiasis, similar prio r. No biliary dilation. Pancreas: No abnormality stephanie ntified in the pancreas. Spleen: No abnormality ident ified in the spleen. Adrenals: No abnormality stephanie ntified in either adrenal gland. Genitourinary: No parenchyma l abnormality identified in either kidney. Left dromedary hump.2 No hydronep hrosis. Mild circumferential urinary bladder wall thickening. Trace free fluid within the pelvis. The uterus is unremarkable. A 1.6 cm left corpus luteum. Unremarkable right ovary. Gastrointestinal: No evidenc e of bowel obstruction or perienteric inflammation. The appendix i s normal (2:93). Vascular/Lymphatics: No enla rged lymph nodes by CT size criteria. Abdominal aorta is normal in caliber. MSK/Body Wall: No concerning bony lesion identified. Peritoneum/Other: No extralu pepe air. No extraluminal fluid. IMPRESSION 1. No acute findings within the abdomen and pelvis. 2. Cholelithiasis. Normal a ppendix. Preliminary Report Dictated by Resident: Virginia Colmenares Ikwuagwu POCT TEST LIYAH 11/07/2020 3:13 AM Generalized R esults for this ELECTRO WINNING OPERATOR abdominal pain procedure are in the results section. URINALYSIS STAT 11/07/2020 2:51 AM Generalized Results for this ELECTRO WINNING OPERATOR abdominal pain procedure are in the results section. CBC WITH DIFF STAT 11/07/2020 2:51 AM Generalized Results for this ELECTRO WINNING OPERATOR abdominal pain procedure are in the results section. COMP. METABOLIC STAT 11/07/2020 2:51 AM Generalized Resul ts for this PANEL (15131) ELECTRO WINNING OPERATOR abdominal pain procedure ar e in the results section. LIPASE STAT 11/07/2020 2:51 AM Generalized Results for this ELECTRO WINNING OPERATOR abdominal pain procedure are in the results section. CONSENT/REFUSAL FOR Routine 11/07/2020 1:45 AM DIAGNOSIS AND ELECTRO WINNING OPERATOR TREATMENT documented in this encounter Results POCT TEST (11/07/2020 3:13 AM ELECTRO WINNING OPERATOR) Pathologist Sig nature POCT PREG negative On board controls acceptable present with C Line POCT PREG LOT # [id number] POCT PREG TEST DATE 07/24/2022 Specimen Urine - URINE, CLEAN CATCH LIPASE (11/07/2020 2:51 AM ELECTRO WINNING OPERATOR) Pathologist Sig nature LIPASE 106 0 - 220 U/L [facility] Specimen Blood - VENOUS Performing Organization Address City/State/Zipcode Phone Number [facility] CLIA: [id number] [place] [address] COMP. METABOLIC PANEL ([id number]) (11/07/2020 2:51 AM ELECTRO WINNING OPERATOR) Pathologist Sig nature NA 136 135 - 145 [facility] mmol/L [facility] K 3.5 3.5 - 5.0 [facility] mmol/L [facility] CL 99 98 - 108 mmol/L [facility] CO2 TOTAL 28 23 - 31 mmol/L [facility] AGAP 9 2 - 16 [facility] BUN 5 (L) 7 - 23 mg/dL [facility] GLUCOSE 330 (H) 70 - 110 mg/dL [facility] CREATININE 0.58 0.50 - 1.04 [facility] mg/dL [facility] TOTAL BILI 0.6 0.1 - 1.1 mg/dL [facility] CALCIUM 10.0 8.6 - 10.6 [facility] mg/dL [facility] T PROTEIN 7.9 6.3 - 8.2 g/dL [facility] ALBUMIN 4.5 3.5 - 5.0 g/dL [facility] ALK PHOS 102 34 - 122 U/L [facility] ALTv 5 5 - 35 U/L [facility] AST(SGOT) 19 13 - 40 U/L [facility] [place] [place] eGFR Calculation 117.0 mL/min/1.73m2 [facility] [place]) eGFR Calculation 141.8 mL/min/1.73m2 [facility] () [facility] Specimen Blood - VENOUS Narrative Performed At [facility] [place] [facility] Glomerular Filtration Rate (GFR) [facility] and Staging of Kidney Disease* [...] tests). Performing Organization Address City/State/Zipcode Phone Number [facility] CLIA: [id number] [place] [address] CBC WITH DIFF (11/07/2020 2:51 AM ELECTRO WINNING OPERATOR) Pathologist [facility] nature WBC 8.60 4.30 - 11.10 [facility] 10*3/L [facility] RBC 5.10 3.93 - 5.25 [facility] 10*6/L [facility] HGB 15.0 11.6 - 15.0 [facility] g/dL [facility] HCT 43.5 35.7 - 45.2 % [facility] MCV 85.3 80.6 - 95.5 fL [facility] MCH 29.4 25.9 - 32.8 pg [facility] MCHC 34.5 31.6 - 35.1 [facility] g/dL [facility] RDW-SD 36.6 (L) 39.0 - 49.9 fL [facility] RDW-CV 11.9 (L) 12.0 - 15.5 % [facility] PLT 484 (H) 166 - 358 [facility] 10*3/L [facility] MPV 9.4 (L) 9.5 - 12.9 fL [facility] NRBC/100 WBC 0.0 0.0 - 10.0 /100 [facility] WBCs [facility] NRBC x10^3 <0.01 10*3/L [facility] GRAN MAT (NEUT) % 55.5 % [facility] IMM GRAN % 0.30 % [facility] LYMPH % 32.3 % [facility] MONO % 7.4 % [facility] EOS % 3.8 % [facility] BASO % 0.7 % [facility] GRAN MAT x10^3(ANC) 4.76 1.88 - 7.09 [facility] 10*3/uL [facility] IMM GRAN x10^3 0.03 0.00 - 0.06 [facility] 10*3/uL [facility] LYMPH x10^3 2.78 1.32 - 3.29 [facility] 10*3/uL [facility] MONO x10^3 0.64 0.33 - 0.92 [facility] 10*3/uL [facility] EOS x10^3 0.33 0.03 - 0.39 [facility] 10*3/uL [facility] BASO x10^3 0.06 0.01 - 0.07 [facility] 10*3/uL [facility] Specimen Blood - VENOUS Performing Organization Address City/State/Zipcode Phone Number [facility] CLIA: [id number] [place] [address] URINALYSIS (11/07/2020 2:51 AM ELECTRO WINNING OPERATOR) Pathologist Sig nature APPEARANCE Clear Clear [facility] COLOR Doris (A) Yellow [facility] PH 6.0 4.8 - 8.0 [facility] SP GRAVITY 1.022 1.003 - 1.030 [facility] GLU U QUAL 500 mg/dL (A) Normal [facility] BLOOD Negative Negative [facility] KETONES Negative Negative [facility] PROTEIN Negative Negative [facility] UROBILIN 2.0 mg/dL (A) Normal [facility] BILIRUBIN Negative Negative [facility] NITRITE Positive (A) Negative [facility] LEUK TANISHA Negative Negative [facility] RBC/HPF 1 0 - 3 HPF [facility] WBC/HPF 4 0 - 5 HPF [facility] BACTERIA Moderate (A) Negative [facility] MUCOUS Slight (A) Negative LPF [facility] SQ EPITH 1 HPF [facility] Specimen Urine - URINE, CLEAN CATCH Performing Organization Address City/State/Zipcode Phone Number [facility] CLIA: [id number] [place] [address] documented in this encounter Visit Diagnoses Diagnosis Generalized abdominal pain - Primary Abdominal pain, generalized Lumbar radiculopathy Thoracic or lumbosacral neuritis or radi culitis, unspecified documented in this encounter Administered Medications Medication Order MAR Action Action Date Dose Rate Site dicyclomine (BENTYL) Given 11/07/2020 3:14 AM 20 mg Right injection 20 mg ELECTRO WINNING OPERATOR Dorsogluteal-IM 20 mg, Intramuscular, QID, First dose on Fri11/07/20 at 0800, Until Discontinued, Routine Medication Order MAR Action Action Date Dose Rate Site FENTanyl PF (SUBLIMAZE (PF)) Given 11/07/2020 4:37 AM ELECTRO WINNING OPERATOR 50 mc g injection 50 mcg 50 mcg, Slow IV Push, ONCE, 1 dose, Fri11/07/20 at 0530, Routine iohexol (OMNIPAQUE 350 BULK-150 mL) Given 11/07/2020 3:45 AM CS T 120 mL injection 120 mL 120 mL, Intravenous, ONCE, 1 dose, Fri11/07/20 at 0345, Routine ondansetron (ZOFRAN (PF)) injection 4 mg Given 11/07/2020 4:37 AM ELECTRO WINNING OPERATOR 4 mg 4 mg, Slow IV Push, ONCE, 1 dose, 11/07/20 at 0530, LIYAH documented in this encounter Insurance Payer Benefit Plan / Subscriber ID Effective Phone Address T ype Group Dates MEDICAID MEDICAID PENDING [id number] Pending [place] [address] documented as of this encounter
[2020-11-07] MEDS ORDERED: DIPHENHYDRAMINE 50 MG/ML VIAL ONE (21:45)
[2020-11-07] MEDS ORDERED: FAMOTIDINE 20 MG/2 ML VIAL IV ONE (21:45)
[2020-11-07] MEDS ORDERED: NA CHLORIDE 0.9% 1,000 ML ONE (21:45)
--- NOTE | 2020-11-07 22:42 | ER ---
Nurse's Notes [facility] Name: Ara Plunkett Age: 35 yrs Sex: Female : 1985 Arrival Date: 11/07/2020 Time: 21:07 Bed 5 Private MD: Diagnosis: Allergic reaction to tramadol Presentation: 11/07 21:16 Chief complaint: Patient states: took a tramadol for sciatica and began having em shortness of breath, chest pain, N/V, dizzy and became hot, reports taking Tramadol for pain before but has not has anything like this, was covid negative in Aug. Coronavirus screen: difficulty breathing, vomiting. Ebola Screen: Patient negative for fever greater than or equal to 101.5 degrees Fahrenheit, and additional compatible Ebola Virus Disease symptoms Patient denies exposure to infectious person. Patient denies travel to an Ebola-affected area in the 21 days before illness onset. No symptoms or risks identified at this time. Initial Sepsis Screen: Does the patient meet any 2 criteria? HR > 90 bpm. Does the patient have a suspected source of infection? No. Patient's initial sepsis screen is negative. Risk Assessment: Do you want to hurt yourself or someone else? Patient reports no desire to harm self or others. Onset of symptoms was November 07, 2020. 21:16 Method Of Arrival: Ambulatory em 21:16 Acuity: CHARISSA 3 em Triage Assessment: 21:37 General: Appears in no apparent distress. comfortable, Behavior is calm, cooperative. mg2 Respiratory: the patient has mild shortness of breath. 21:37 Respiratory: Onset: The symptoms/episode began/occurred gradually. 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 - Social history:: Smoking status: Patient reports the use of cigarette tobacco products, smokes one-half pack cigarettes per day. Screenin:36 Abuse screen: Denies threats or abuse. Denies injuries from another. Nutritional mg2 screening: No deficits noted. Tuberculosis screening: No symptoms or risk factors identified. Fall Risk IV access (20 points). Assessment: 21:36 General: Appears in no apparent distress. comfortable, Behavior is calm, cooperative. mg2 Pain: Denies pain. Neuro: Level of Consciousness is awake, alert, obeys commands, Oriented to person, place, time, situation. Cardiovascular: Capillary refill < 3 seconds Patient's skin is warm and dry. Respiratory: Reports shortness of breath Airway is patent Respiratory effort is even, unlabored, Respiratory pattern is regular, symmetrical. GI: No signs and/or symptoms were reported involving the gastrointestinal system. : No signs and/or symptoms were reported regarding the genitourinary system. EENT: No signs and/or symptoms were reported regarding the EENT system. Derm: Skin is intact, is healthy with good turgor, Skin is pink, warm \T\ dry. normal. Musculoskeletal: Circulation, motion, and sensation intact. Capillary refill < 3 seconds. 21:36 Cardiovascular: Rhythm is regular. rr5 21:37 Respiratory: Breath sounds are clear. mg2 22:05 Reassessment: Patient appears in no apparent distress at this time. Patient and/or rr5 family updated on plan of care and expected duration. Pain level reassessed. Patient is alert, oriented x 3, equal unlabored respirations, skin warm/dry/pink. 22:55 Reassessment: Patient appears in no apparent distress at this time. Patient is alert, rr5 oriented x 3, equal unlabored respirations, skin warm/dry/pink. discharge instruction given and explained without complaints made. Vital Signs: 21:16 BP 136 / 94; Pulse 108; Resp 20; Temp 98.2(O); Pulse Ox 99% on R/A; Weight 68.04 kg; em Height 5 ft. 2 in. (157.48 cm); Pain 8/10; 22:00 BP 131 / 89; Pulse 99; Resp 19; Pulse Ox 99% ; rr5 22:55 BP 126 / 85; Pulse 95; Resp 17; Pulse Ox 99% ; rr5 21:16 Body Mass Index 27.44 (68.04 kg, 157.48 cm) em ED Course: 21:07 Patient arrived in ED. bp1 21:11 [facility] kb 21:11 Landon Duval MD is Attending Physician. kb 21:17 Urbano Espinoza, RN is Primary Nurse. mg2 21:18 Triage completed. em 21:19 Arm band placed on. em 21:30 Inserted saline lock: 20 gauge in right forearm, using aseptic technique. mg2 21:35 No provider procedures requiring assistance completed. mg2 21:37 Patient has correct armband on for positive identification. mg2 22:55 IV discontinued, intact, bleeding controlled, No redness/swelling at site. Pressure rr5 dressing applied. Administered Medications: 21:35 Drug: NS 0.9% 1000 ml Route: IV; Rate: 1000 ml; Site: right forearm; mg2 22:10 Follow up: Response: No adverse reaction; IV Status: Completed infusion; IV Intake: rr5 1000ml 21:35 Drug: Pepcid 20 mg Route: IVP; Site: right forearm; mg2 22:30 Follow up: Response: No adverse reaction rr5 21:35 Drug: Benadryl 12.5 mg Route: IVP; Site: right forearm; mg2 22:30 Follow up: Response: No adverse reaction rr5 Intake: 22:10 IV: 1000ml; Total: 1000ml. rr5 Outcome: 22:41 Discharge ordered by . kb 22:55 Discharged to home ambulatory. rr5 22:55 Condition: stable 22:55 Discharge instructions given to patient, Instructed on discharge instructions, follow up and referral plans. medication usage, Demonstrated understanding of instructions, follow-up care, medications, Prescriptions given X 1. 23:02 Patient left the ED. rr5 Signatures: Celina Driver FNP-Dedra AUGUSTINE-Luis Ray RN RN Urbano Espinoza, [facility] Abe Westfall RN RN rr5 Vanessa Cantu [facility]
--- NOTE | 2020-11-07 22:42 | EDPHYS ---
Physician Documentation [facility] Name: Ara Plunkett Age: 35 yrs Sex: Female : 1985 Arrival Date: 11/07/2020 Time: 21:07 Bed 5 Private MD: ED Physician Landon Duval HPI: 11/07 21:27 This 35 yrs old Female presents to ER via Ambulatory with complaints of kb Shortness Of Breath, Breathing Difficulty, Chest Pain. 21:27 The patient presents with chest pain, shortness of breath, lightheadedness. Onset: The kb symptoms/episode began/occurred just prior to arrival. Associated signs and symptoms: Pertinent positives: chest pain, light headed, shortness of breath. Possible causes: tramadol. At home the patient or guardian has treated the symptoms with nothing. Severity of symptoms: At their worst the symptoms were moderate in the emergency department the symptoms are unchanged. The patient has not experienced similar symptoms in the past. The patient has not recently seen a physician. Pt reports she took a tramadol, 20 minutes later started having shortness of breath, chest tightness and lightheadedness. States she has anxiety attacks and she wasn't sure if it was that or the medicine so she came in to get checked out. 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 - Social history:: Smoking status: Patient reports the use of cigarette tobacco products, smokes one-half pack cigarettes per day. ROS: 21:26 Constitutional: Negative for fever, chills, and weight loss, Abdomen/GI: Negative for kb abdominal pain, nausea, vomiting, diarrhea, and constipation, Back: Negative for injury and pain, MS/Extremity: Negative for injury and deformity, Skin: Negative for injury, rash, and discoloration. 21:26 Cardiovascular: Positive for chest pain, Negative for edema, orthopnea, palpitations, paroxysmal nocturnal dyspnea. 21:26 Respiratory: Positive for shortness of breath, Negative for cough, dyspnea on exertion, hemoptysis, orthopnea, pleurisy, sputum production, wheezing. 21:26 Neuro: Positive for lightheaded. Exam: 21:26 Constitutional: This is a well developed, well nourished patient who is awake, alert, kb and in no acute distress. Head/Face: Normocephalic, atraumatic. Chest/axilla: Normal chest wall appearance and motion. Nontender with no deformity. No lesions are appreciated. Cardiovascular: Regular rate and rhythm with a normal S1 and S2. No gallops, murmurs, or rubs. Normal PMI, no JVD. No pulse deficits. Respiratory: Lungs have equal breath sounds bilaterally, clear to auscultation and percussion. No rales, rhonchi or wheezes noted. No increased work of breathing, no retractions or nasal flaring. Abdomen/GI: Soft, non-tender, with normal bowel sounds. No distension or tympany. No guarding or rebound. No evidence of tenderness throughout. Skin: Warm, dry with normal turgor. Normal color with no rashes, no lesions, and no evidence of cellulitis. MS/ Extremity: Pulses equal, no cyanosis. Neurovascular intact. Full, normal range of motion. Neuro: Awake and alert, GCS 15, oriented to person, place, time, and situation. Cranial nerves II-XII grossly intact. Motor strength 5/5 in all extremities. Sensory grossly intact. Cerebellar exam normal. Normal gait. Vital Signs: 21:16 BP 136 / 94; Pulse 108; Resp 20; Temp 98.2(O); Pulse Ox 99% on R/A; Weight 68.04 kg; em Height 5 ft. 2 in. (157.48 cm); Pain 8/10; 22:00 BP 131 / 89; Pulse 99; Resp 19; Pulse Ox 99% ; rr5 22:55 BP 126 / 85; Pulse 95; Resp 17; Pulse Ox 99% ; rr5 21:16 Body Mass Index 27.44 (68.04 kg, 157.48 cm) em MDM: 21:17 Patient medically screened. kb 21:27 Data reviewed: vital signs, nurses notes. Data interpreted: Pulse oximetry: on room air kb is 99 %. Interpretation: normal. Counseling: I had a detailed discussion with the patient and/or guardian regarding: the historical points, exam findings, and any diagnostic results supporting the discharge/admit diagnosis, the need for outpatient follow up, a family practitioner, to return to the emergency department if symptoms worsen or persist or if there are any questions or concerns that arise at home. 22:41 ED course: PT feeling better after treatment, symptoms resolved. karolina 11/07 21:26 Order name: IV Start; Complete Time: 21:35 kb Administered Medications: 21:35 Drug: NS 0.9% 1000 ml Route: IV; Rate: 1000 ml; Site: right forearm; mg2 22:10 Follow up: Response: No adverse reaction; IV Status: Completed infusion; IV Intake: rr5 1000ml 21:35 Drug: Pepcid 20 mg Route: IVP; Site: right forearm; mg2 22:30 Follow up: Response: No adverse reaction rr5 21:35 Drug: Benadryl 12.5 mg Route: IVP; Site: right forearm; mg2 22:30 Follow up: Response: No adverse reaction rr5 Disposition: 11/08 03:16 Co-signature as Attending Physician, Landon Duval MD I agree with the assessment and tw4 plan of care. Disposition: 11/07/20 22:41 Discharged to Home. Impression: Allergic reaction to tramadol. - Condition is Stable. - Discharge Instructions: Allergies, [id number]. - Prescriptions for Pepcid 20 mg Oral Tablet - take 1 tablet by ORAL route every 12 hours for 5 days; 10 tablet. - Medication Reconciliation Form, Thank You Letter, Antibiotic Education, Prescription Opioid Use form. - Follow up: Emergency Department; When: As needed; Reason: Worsening of condition. Follow up: Private Physician; When: 2 - 3 days; Reason: Recheck today's complaints, Continuance of care, Re-evaluation by your physician. Signatures: Celina Driver, DAVIDE-C PRICE CHECKER-Luis Ray RN RN em Wadley, Terrence, MD MD tw4 Urbano Espinoza RN RN mg2 Abe Westfall RN RN rr5 Corrections: (The following items were deleted from the chart) 11/07 23:02 22:41 11/07/2020 22:41 Discharged to Home. Impression: Allergic reaction to tramadol. rr5 Condition is Stable. Forms are Medication Reconciliation Form, Thank You Letter, Antibiotic Education, Prescription Opioid Use. Follow up: Emergency Department; When: As needed; Reason: Worsening of condition. Follow up: Private Physician; When: 2 - 3 days; Reason: Recheck today's complaints, Continuance of care, Re-evaluation by your physician. kb
[2020-11-09 21:58] VITALS: BP 136/94; TEMP 98.2; O2SAT 99
== END 2020-11-07 23:02 | disposition home or self-care (01) ==
LOC: ER 21:06
DX: R07.9 Chest pain, unspecified (principal); Z88.5 Allergy status to narcotic agent; E11.9 Type 2 diabetes mellitus without complications; Z72.0 Tobacco use; Z88.1 Allergy status to other antibiotic agents; Z88.8 Allergy status to other drugs, medicaments and biological substances
CPT/HCPCS: 96361; 96374; 96375; 99283; J1200; J7030

== ENCOUNTER 2020-11-11 16:20 | Emergency (ER) | payer SELFPAY ==
--- OUTSIDE RECORDS SUMMARY | 2020-11-11 16:23 | XMS REPORT | Clinical Summary ---
:1985 Author Organization [facility] Address [address] [place] [address] Care Team Providers Name Role Phone Asked, [...] of diab etes mellitus; Thrombocytosis (HCC) after 11/11/2019 Surgical History Surgery Date Site/Laterality Comments NO [...] Comments Blood Pressure 145/81 09/29/2020 7:00 PM JAVASCRIPT DEVELOPER Pulse 83 09/29/2020 7:00 PM JAVASCRIPT DEVELOPER Temperature 36.6 C (97.9 F) 09/29/2020 2:23 PM JAVASCRIPT DEVELOPER Respiratory Rate 16 09/29/2020 7:00 PM JAVASCRIPT DEVELOPER Oxygen Saturation 99% 09/29/2020 7:00 PM JAVASCRIPT DEVELOPER Inhaled Oxygen Concentration - - Weight 71.2 kg (157 lb) 09/29/2020 2:19 PM JAVASCRIPT DEVELOPER Height 157.5 cm (5' 2") 09/29/2020 2:19 PM JAVASCRIPT DEVELOPER Body Mass Index 28.72 09/29/2020 2:19 PM JAVASCRIPT DEVELOPER Plan of Treatment Health Maintenance Due Date Last Done Comments DIABETES: RETINAL EYE EXAM 1993 DIABETIC FOOT EXAM 1993 URINE MICROALBUMIN 1993 COVID-19 VACCINE (#1) 1999 CERVICAL CANCER SCREENING 2004 INFLUENZA VACCINE 06/24/2020 Procedures Procedure Name Priority Date/Time Associated Comments Diagnosis POC GLUCOSE Routine 09/29/2020 7:13 Results for this PM JAVASCRIPT DEVELOPER procedure are i n the results section. TROPONIN Timed 09/29/2020 6:54 Results for this PM JAVASCRIPT DEVELOPER procedure are i n the results section. CT RENAL STONE PROTOCOL STAT 09/29/2020 5:17 Results for this PM JAVASCRIPT DEVELOPER procedure are i n the results section. HCG QUALITATIVE, URINE STAT 09/29/2020 4:13 R esults for this SCREEN PM JAVASCRIPT DEVELOPER procedure are i n the results section. URINALYSIS SCREEN AND STAT 09/29/2020 4:13 Re sults for this MICROSCOPY, WITH REFLEX PM JAVASCRIPT DEVELOPER proc edure are in TO CULTURE the results section. TROPONIN, I-STAT STAT 09/29/2020 4:09 Results for this PM JAVASCRIPT DEVELOPER procedure are i n the results section. LIPASE LEVEL STAT 09/29/2020 4:09 Results for this PM JAVASCRIPT DEVELOPER procedure are i n the results section. CREATINE KINASE, TOTAL STAT 09/29/2020 4:09 R esults for this (CPK) PM JAVASCRIPT DEVELOPER procedure are i n the results section. ESTIMATED GFR STAT 09/29/2020 4:09 Results fo r this PM JAVASCRIPT DEVELOPER procedure are i n the results section. HC COMPLETE BLD COUNT STAT 09/29/2020 4:09 Re sults for this W/AUTO DIFF PM JAVASCRIPT DEVELOPER procedure are i n the results section. B NATRIURETIC PEPTIDE STAT 09/29/2020 4:09 Re sults for this PM JAVASCRIPT DEVELOPER procedure are i n the results section. COMPREHENSIVE METABOLIC STAT 09/29/2020 4:09 Results for this PANEL PM JAVASCRIPT DEVELOPER procedure are i n the results section. XR CHEST 1 VW PORTABLE STAT 09/29/2020 4:01 R esults for this PM JAVASCRIPT DEVELOPER procedure are i n the results section. ECG ED PRELIMINARY Routine 09/29/2020 2:33 Resul ts for this INTERPRETATION PM JAVASCRIPT DEVELOPER procedure are in the results section. ECG 12-LEAD STAT 09/29/2020 2:09 Results for this PM JAVASCRIPT DEVELOPER procedure are i n the results section. after 11/11/2019 Results POC glucose (09/29/2020 7:13 PM JAVASCRIPT DEVELOPER) Pathologist Sig nature POC glucose 207 (H) 65 - 99 mg/dL [place] Comment: [facility] Retail Greeting Card Merchandiser Name: [facility] Device ID: [id number] Chartable: Notified nurse Specimen Blood Performing Organization Address City/[facility]/ZIP [place] [address], [address] [place] [address] 5 PATHOLOGY AND GENOMIC MEDICINE RAPHINE [place] [address] [facility] [address] Troponin (09/29/2020 6:54 PM JAVASCRIPT DEVELOPER) Troponin <0.006 0.000 - 0.040 [place] Comment: ng/mL MARNIE RODRIGUEZ In patients suspected of having a myocardial [...] 0.020 ng/mL Specimen Plasma Performing Organization Address City/[facility]/ZIP Code [place] [address], [address] [place] [address] 5 PATHOLOGY AND GENOMIC MEDICINE RAPHINE [place] [address] [facility] [address] [address] Renal Stone Protocol (09/29/2020 5:17 PM JAVASCRIPT DEVELOPER) Specimen Narrative Performed At Examination: CT [...] calculus or obstructi on. Please see above. [id number] Procedure Note Interface, Radiology Results Incoming - 09/29/2020 5:46 PM JAVASCRIPT DEVELOPER Examination: CT RENAL STONE PROTOCOL Clinical [...] calculu s or obstruction. Please see above. [id number] Performing Organization Address City/State/ZIP Code Phon e Number [facility] [address] [place] [address] Urinalysis screen and microscopy, with reflex to culture (09/29/2020 4:13 PM JAVASCRIPT DEVELOPER) Specimen site Clean catch [facility] Color, UA Yellow [facility] Appearance, UA Clear [facility] Specific gravity, UA 1.028 1.001 - 1.035 [facility] pH, UA 5.0 5.0 - 8.5 [facility] Protein, UA 1+ (A) Negative [facility] Glucose, UA 3+ (A) Negative [facility] Ketones, UA Trace (A) Negative [facility] Bilirubin, UA Negative Negative [facility] Blood, UA Negative Negative [facility] Nitrite, UA Negative Negative [facility] Urobilinogen, UA <2.0 <2.0 [facility] Leukocyte esterase, Negative Negative [facility] UA [facility] Epithelial cells, UA 1 /HPF [facility] WBC, UA 2 0 - 5 /HPF [facility] RBC, UA 1 0 - 5 /HPF [facility] Yeast, UA None seen [facility] Yeast with None seen [facility] pseudohyphae, UA [facility] Specimen Urine Performing Organization Address City/State/[place] [address], [address] [place] [address] 5 PATHOLOGY AND GENOMIC MEDICINE [facility] THE [address] [address] [facility] [address] hCG qualitative, urine screen (09/29/2020 4:13 PM JAVASCRIPT DEVELOPER) Pathologist [facility] hCG qualitative, NegativeComment: [place] urine Sensitivity of HCG [facility] [place] [facility] test: 25 mIU/ml HOSPITAL Specimen Urine Performing Organization Address City/[facility]/ZIP [facility] [place] [address], [address] [place] [address] 5 PATHOLOGY AND GENOMIC MEDICINE RAPHINE [place] THE [address] [address] [facility] [address] Estimated GFR (09/29/2020 4:09 PM JAVASCRIPT DEVELOPER) [facility] Estimated GFR >=90 mL/min/1.73 RAPHINE Comment: m2 [facility]FUCI[facility]ISM THE Catergory Units Interpretation HERNÁNDEZ DLANDS G1 [...] in 2014. Specimen Plasma Performing Organization Address [facility] [place] [address], [address] [place] [address] 5 PATHOLOGY AND GENOMIC MEDICINE RAPHINE [place] THE [address] [address] [facility] [address] Troponin, I-Stat (09/29/2020 4:09 PM JAVASCRIPT DEVELOPER) [facility] Troponin, I-Stat 0.00 0.00 - 0.08 RAPHINE Comment: ng/mL [place] THE 0.09 - 1.49 ng/ml May indicate increa sed risk of acute [facility] coronary syndrome. HOSPITAL >=1.5 ng/ml Consistent with acute myocardial infarction. The diagnostic value of a single normal or non-diagnos tic result is questionable. Serial samples at 2-6 hour i ntervals are required to rule out acute myocardial injury. Specimen Plasma Performing Organization Address City/[facility]/ZIP [place] [address], [address] [place] [address] 5 PATHOLOGY AND GENOMIC MEDICINE [facility] THE [address] [address] [facility] [address] CBC with platelet and differential (09/29/2020 4:09 PM JAVASCRIPT DEVELOPER) WBC 12.08 (H) 4.50 - 11.00 JAFFE k/uL [facility] RBC 4.84 4.20 - 5.50 RAPHINE m/uL [facility] HGB 14.6 12.0 - 16.0 RAPHINE g/dL [facility] HCT 42.6 37.0 - 47.0 % [facility] MCV 88.0 82.0 - 100.0 RAPHINE fL [facility] MCH 30.2 27.0 - 34.0 pg [facility] MCHC 34.3 31.0 - 37.0 RAPHINE g/dL [facility] RDW - SD 39.1 37.0 - 55.0 fL [facility] MPV 9.7 8.8 - 13.2 fL [facility] Platelet count 541 (H) 150 - 400 k/uL [facility] Nucleated RBC 0.00 /100 WBC [facility] Neutrophils 80.3 (H) 39.0 - 69.0 % [facility] Lymphocytes 14.8 (L) 25.0 - 45.0 % [facility] Monocytes 3.3 0.0 - 10.0 % [facility] Eosinophils 0.9 0.0 - 5.0 % [facility] Basophils 0.5 0.0 - 1.0 % [facility] Immature granulocytes 0.2Comment: 0.0 - 1.0 % RAPHINE "Immature [facility] granulocytes" [facility] (promyelocytes HOSPITAL , myelocytes, metamyelocytes ) Specimen Plasma Performing Organization Address City/State/ZIP [place] [address], [address] [place] [address] 5 PATHOLOGY AND GENOMIC MEDICINE [facility] THE [address] [address] [facility] [address] B natriuretic peptide (09/29/2020 4:09 PM JAVASCRIPT DEVELOPER) Pathologist Sig nature BNP 36 0 - 100 pg/mL [facility] Specimen Blood Performing Organization Address City/[facility]/ZIP Code Phon e Number [facility] [place] [place] [address], [address] [place] [address] 5 PATHOLOGY AND GENOMIC MEDICINE [facility] THE [address] [address] [facility] [address] Lipase level (09/29/2020 4:09 PM JAVASCRIPT DEVELOPER) Pathologist Sig nature Lipase 32 13 - 60 U/L [facility] Specimen Plasma Performing Organization Address City/State/ZIP Code Phon e Number [facility] [place] [address], [address] [place] [address] 5 PATHOLOGY AND GENOMIC MEDICINE [facility] THE [address] [place] [phone] Creatine kinase, total (CPK) (09/29/2020 4:09 PM JAVASCRIPT DEVELOPER) Pathologist Sig nature Creatine kinase 39 26 - 192 U/L [facility] Specimen Plasma Performing Organization Address City/[facility] Phon e Number [facility] DEPARTMENT OF [facility], [address] [place] [address] 5 PATHOLOGY AND GENOMIC MEDICINE [facility] THE [address] [facility] [address] Comprehensive metabolic panel (09/29/2020 4:09 PM JAVASCRIPT DEVELOPER) Sodium 136 135 - 148 RAPHINE mEq/L [facility] Potassium 3.3 (L) 3.5 - 5.0 RAPHINE mEq/L [facility] Chloride 101 98 - 112 RAPHINE mEq/L [facility] CO2 24 24 - 31 mEq/L [facility] Anion gap 11 7 - 15 mEq/L [facility] BUN 5 (L) 6 - 20 mg/dL [facility] Creatinine 0.62 0.50 - 0.90 RAPHINE mg/dL [facility] Glucose 289 (H) 65 - 99 mg/dL [facility] Calcium 9.5 8.3 - 10.2 RAPHINE mg/dL [facility] Protein 8.3 6.3 - 8.3 RAPHINE Comment: g/dL [facility] 4.6-7.0 g/dL HOSPITAL 1 week 4.4-7.6 g/dL 7 months-1year 5.1-7.3 g/dL 1-2 years 5.6-7.5 g/dL >3 years 6.0-8.0 g/dL 18-150 6.3-8.3 g/dL Albumin 4.1 3.5 - 5.0 RAPHINE g/dL [facility] A/G ratio 1.0 0.7 - 3.8 [facility] Alkaline phosphatase 117 (H) 35 - 104 U/L [facility] AST 20 10 - 35 U/L [facility] ALT 7 5 - 50 U/L [facility] Total bilirubin 0.5 0.0 - 1.2 RAPHINE mg/dL [facility] Specimen Plasma Performing Organization Address City/[facility]/ZIP [place] [address], [address] [place] [address] 5 PATHOLOGY AND GENOMIC MEDICINE [facility] THE [address] [address] [facility] [address] XR Chest 1 Vw Portable (09/29/2020 4:01 PM JAVASCRIPT DEVELOPER) Specimen Narrative Performed At EXAMINATION: XR CHEST 1 VW PORTABLE [facility] CLINICAL HISTORY:35 years Female ches t pain [facility] COMPARISON: None IMPRESSION: Cardiomediastinal silhouette and pulmonary vasculature are within normal limits. Lungs are clear. Bones are unr emarkable. [facility]-[id number] Procedure Note Interface, Radiology Results Incoming - 09/29/2020 4:07 PM JAVASCRIPT DEVELOPER EXAMINATION: XR CHEST 1 VW PORTABLE CLINICAL HISTORY:35 years Female chest pain [facility] COMPARISON: None IMPRESSION: Cardiomediastinal silhouette and pulmona ry vasculature are within normal limits. Lungs are clear. Bones are unremarkable. [id number] Performing Organization Address City/State/ZIP Code Phon e Number [facility] [address] [place] [address] ECG ED Preliminary Interpretation - Not an Order (09/29/2020 2:33 PM JAVASCRIPT DEVELOPER) Narrative Performed At Ezra Persaud MD 09/30/2020 8:15 AM ECG ED Preliminary Interpretation - Not an Order Performed by: Ezra Persaud MD Authorized by: Ezra Persaud MD ECG reviewed by ED Physician in the abse nce of a obstetrician/gynecologist: yes Interpretation: Interpretation: normal Rate: ECG rate: 81 ECG rate assessment: normal Rhythm: Rhythm: sinus rhythm Ectopy: Ectopy: none QRS: QRS axis: Normal QRS intervals: Normal Conduction: Conduction: normal ST segments: ST segments: Normal T waves: T waves: non-specific ECG 12 lead (09/29/2020 2:09 PM JAVASCRIPT DEVELOPER) Pathologist Sig nature Ventricular rate 81 [facility] Atrial rate 81 [facility] MA interval 138 [facility] QRSD interval 88 [...] Organization Address City/State/ZIP Code Phon e Number [facility] MUSE [address] [place] [address] after 11/11/2019 Advance Directives For more information, please contact: [phone] Type Date Recorded 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
--- OUTSIDE RECORDS SUMMARY | 2020-11-11 16:23 | XMS REPORT | Clinical Summary ---
:1985 Author Organization [facility] Address [address] [place] [address] Care Team Providers Name Role Phone MD Paulino Primary Care Provider Unavailable Allergies No Known [...] VACCINE (#1) 2020 Results Not on fileafter 11/11/2019 Advance Directives For more information, please contact: [phone] Code Status Date Activated Date Inactivated Comments Full Code 04/04/2018 5:20 PM 04/09/2018 3:29 PM This code status was determined by: Patient
[2020-11-11 17:02] LABS: Protime INR 1.01
[2020-11-11] MEDS ORDERED: NA CHLORIDE 0.9% 1,000 ML ONE ×2 (17:04→18:01)
[2020-11-11] MEDS ORDERED: ONDANSETRON 4 MG/2 ML VIAL ONE ×2 (17:04→20:05)
[2020-11-11 17:18] LABS: Absolute Lymphocytes (CBC) 1.8 K/uL (0.7-4.9); Basophils % 0.8 % (0-1.3); Hematocrit 43.9 % (36.0-45.0); Lymphocytes % 15.8 % (15.3-44.8); MPV 8.5 fL (7.6-11.3)
[2020-11-11 17:20] LABS: ALT/SGPT 9 U/L (12-78); AST/SGOT 7 U/L (15-37); Alkaline Phosphatase 109 U/L (45-117); BUN Blood Urea Nitrogen 10 mg/dL (7-18); Bicarbonate 23 mmol/L (21-32); Bilirubin Direct 0.1 mg/dL (0-0.2); Bilirubin Total 0.7 mg/dL (0.2-1.0); Magnesium 1.9 mg/dL (1.8-2.4); NT PRO-BNP 18 pg/mL (<125); Potassium 3.9 mmol/L (3.5-5.1); Protein, Total 8.2 g/dL (6.4-8.2); Sodium Level 132 mmol/L (136-145); Troponin (Emerg Dept Use Only) < 0.02 ng/mL (0.0-0.045)
[2020-11-11 17:21] LABS: Glucose Level 528 mg/dL (74-106)
[2020-11-11 17:29] LABS: Barbiturates NEGATIVE (NEGATIVE); Benzodiazepines NEGATIVE (NEGATIVE); Cocaine NEGATIVE (NEGATIVE); METHAMPHETAM NEGATIVE (NEGATIVE); Methadone NEGATIVE (NEGATIVE); Opiates NEGATIVE (NEGATIVE); Phencyclidine NEGATIVE (NEGATIVE); THC Cannibis NEGATIVE (NEGATIVE)
[2020-11-11 17:47] LABS: Urine Bacteria <20 /HPF (<20); Urine RBC <5 /HPF (NONE SEEN)
[2020-11-11 17:53] LABS: Urine Blood TRACE (NEG); Urine Glucose 2+ (NEG); Urine Protein NEGATIVE (NEG)
[2020-11-11 17:56] LABS: Blood Morphology Comment NOT SEEN (NOT SEEN); Platelet Estimate ADEQ; White Blood Cell Scan OK (OK)
[2020-11-11] MEDS ORDERED: INSULIN -REGULAR HUMAN 50 UNIT/0.5 ML ML ONE (18:01)
--- NOTE | 2020-11-11 18:01 | RAD REPORT ---
EXAM DESCRIPTION: RAD - Chest Single View - 11/11/2020 5:26 pm CLINICAL HISTORY: CHEST PAIN, irregular pulse, smoking history, hypertension COMPARISON: Portable October 31 TECHNIQUE: AP portable chest image was obtained 11/11/2020 5:26 pm . FINDINGS: Lungs are clear. Heart and vasculature are normal. No measurable pleural effusion and no p neumothorax. No acute bony abnormality seen. No acute aortic findings suspected. IMPRESSION: No acute cardiopulmonary process. No significant change from comparison study.
[2020-11-11] MEDS ORDERED: FENTANYL CITR 100 MCG/2 ML ONE (19:53)
--- NOTE | 2020-11-11 21:22 | RAD REPORT ---
EXAM DESCRIPTION: CT - Chest For Pe Angio - 11/11/2020 8:10 pm CLINICAL HISTORY: Chest pain;SOB COMPARISON: Chest Single View dated 11/11/2020 TECHNIQUE: Dynamically enhanced 3 mm thick images of the chest were obtained during administration o f approximately 150mL Isovue 370 IV contrast. Coronal and oblique MIP reconstruction images were gene rated and reviewed. Exam utilizes a protocol to evaluate the pulmonary arterial tree. All CT scans are performed using dose optimization technique as appropriate and may include automated exposure control or mA/KV adjustment according to patient size. FINDINGS: No pulmonary emboli are identified. The aorta as imaged shows no acute or suspicious finding. No pericardial thickening or effusion. No infiltrate or mass in the lung parenchyma. No pleural effusion or pleural thickening. No mediastinal or hilar suspicious masses. No chest wall masses or abnormal axillary lymphadenopathy. IMPRESSION: No pulmonary emboli identified. No other significant or suspicious findings.
--- NOTE | 2020-11-11 21:34 | ER ---
Nurse's Notes [facility] Name: Ara Plunkett Age: 35 yrs Sex: Female : 1985 Arrival Date: 11/11/2020 Time: 16:21 Bed 8 Private MD: Diagnosis: Other chest pain;Diabetes mellitus due to underlying condition with hyperglycemia Presentation: 11/11 16:27 Chief complaint: Patient states: midsternal CP, "lump in my throat", BP 143/115 sv HR-118-131 that started a couple of hours ago. Coronavirus screen: Client denies travel out of the [place] in the last 14 days. At this time, the client does not indicate any symptoms associated with coronavirus-19. Ebola Screen: No symptoms or risks identified at this time. Risk Assessment: Do you want to hurt yourself or someone else? Patient reports no desire to harm self or others. Onset of symptoms was November 11, 2020. 16:27 Method Of Arrival: Wheelchair sv 16:27 Acuity: CHARISSA 3 sv 17:04 Initial Sepsis Screen: Does the patient meet any 2 criteria? HR > 90 bpm. No. Patient's tw2 initial sepsis screen is negative. Does the patient have a suspected source of infection? No. Patient's initial sepsis screen is negative. Historical: - Allergies: 16:29 Bactrim; sv 16:29 Flagyl; sv 16:29 Morphine; sv 16:29 steroids; sv 16:29 Toradol; sv 16:29 tramadol; sv - PMHx: 16:29 Diabetes - NIDDM; sv - PSHx: 16:29 None; sv - Immunization history:: Flu vaccine is not up to date. - Social history:: Smoking status: Patient reports the use of cigarette tobacco products, smokes one-half pack cigarettes per day. Screenin:29 Abuse screen: Denies threats or abuse. Nutritional screening: No deficits noted. tw2 Tuberculosis screening: No symptoms or risk factors identified. Fall Risk None identified. Assessment: 16:29 Reassessment: provider at bedside at this time. tw2 16:41 General: Appears in no apparent distress. well groomed, Behavior is calm, cooperative, tw2 appropriate for age. 17:04 Pain: Complains of pain in "my throat and a tightness in my chest" Pain does not tw2 radiate. Pain began 2-3 days ago. Neuro: Level of Consciousness is awake, alert, obeys commands, Oriented to person, place, time, situation. Cardiovascular: Heart tones S1 S2 Patient's skin is warm and dry. Respiratory: Airway is patent Respiratory effort is even, unlabored, Respiratory pattern is regular, symmetrical, Breath sounds are clear bilaterally. GI: Reports nausea. : No signs and/or symptoms were reported regarding the genitourinary system. EENT: Reports. Derm: No signs and/or symptoms reported regarding the dermatologic system. Musculoskeletal: Range of motion: intact in all extremities. 18:04 Reassessment: Patient appears in no apparent distress at this time. No changes from tw2 previously documented assessment. Patient and/or family updated on plan of care and expected duration. Pain level reassessed. Patient is alert, oriented x 3, equal unlabored respirations, skin warm/dry/pink. 18:54 Reassessment: pt states "my chest still is hurting can you let the provider know", tw2 provider notified. 19:45 General: Appears in no apparent distress. Pain: Complains of pain in chest Pain lp1 currently is 9 out of 10 on a pain scale. Quality of pain is described as sharp. Neuro: Level of Consciousness is awake, alert, obeys commands, Oriented to person, place, time, situation. Cardiovascular: Patient's skin is warm and dry. Respiratory: Respiratory effort is even, unlabored. Derm: Skin is pink, warm \\T\\ dry. 19:50 Reassessment: Patient requests Zofran due to fear of Fentanyl making her nauseous; lp1 Provider verbal order for Zofran 4mg IV now. 20:50 Reassessment: Patient aware of waiting for CT results. lp1 21:49 Reassessment: Patient appears in no apparent distress at this time. Patient is alert, lp1 oriented x 3, equal unlabored respirations, skin warm/dry/pink. Patient states feeling better. Vital Signs: 16:27 Weight 68.04 kg; Height 5 ft. 2 in. (157.48 cm); Pain 7/10; sv 16:30 BP 145 / 103; Pulse 114; Resp 18; Temp 98.0(TE); Pulse Ox 100% on R/A; dh3 16:50 BP 139 / 95; Pulse 106; Resp 17; Pulse Ox 100% on R/A; tw2 17:42 BP 128 / 81; Pulse 99; Resp 16; Pulse Ox 100% on R/A; tw2 17:53 Temp 98.8(O); tw2 19:45 BP 132 / 88; Pulse 107; Resp 14; Pulse Ox 100% on R/A; Pain 9/10; lp1 21:30 BP 125 / 94; Pulse 96; Resp 17; Temp 98.7(O); Pulse Ox 100% on R/A; lp1 16:27 Body Mass Index 27.44 (68.04 kg, 157.48 cm) sv ED Course: 16:21 Patient arrived in ED. ds1 16:23 Rashad Sandoval PA is PHCP. cp 16:23 Alex Lemons MD is Attending Physician. cp 16:28 Triage completed. sv 16:29 Arm band placed on. tw2 16:42 Bed in low position. Call light in reach. bus monitor on. Pulse ox on. NIBP on. tw2 16:48 Ling Zaldivar RN is Primary Nurse. tw2 16:48 Initial lab(s) drawn, by me, sent to lab. Inserted saline lock: 20 gauge in right dh3 antecubital area, using aseptic technique. Blood collected. 17:00 Urine collected: clean catch specimen, clear. dh3 17:03 Patient maintains SpO2 saturation greater than 95% on room air. tw2 17:26 XRAY Chest (1 view) In Process Unspecified. EDMS 19:00 Report given to VÍCTOR Johns. tw2 19:59 No provider procedures requiring assistance completed. lp1 20:10 CT Chest For PE Angio In Process Unspecified. EDMS 21:50 IV discontinued, No redness/swelling at site. Pressure dressing applied. lp1 Administered Medications: 16:50 Drug: NS 0.9% 1000 ml Route: IV; Rate: 1 bolus; Site: right antecubital; tw2 18:53 Follow up: Response: No adverse reaction; IV Status: Completed infusion; IV Intake: tw2 1000ml 16:50 Drug: Zofran (Ondansetron) 4 mg Route: IVP; Site: right antecubital; tw2 18:27 Follow up: Response: No adverse reaction; Nausea is decreased tw2 17:46 CANCELLED (Physician Discretion): Tylenol 1000 mg PO once cp 17:50 Drug: Insulin Regular Human 7 units {Co-Signature: tw2 (Ling Zaldivar RN).} Route: IVP; ph Site: right antecubital; 19:49 Follow up: Response: Blood sugar is lowered lp1 17:52 Drug: NS 0.9% 1000 ml Route: IV; Rate: 1 bolus; Site: right antecubital; ph 19:37 Follow up: IV Status: Completed infusion; IV Intake: 1000ml lp1 19:57 Drug: Zofran (Ondansetron) 4 mg Route: IVP; Site: right antecubital; lp1 20:15 Follow up: Response: No adverse reaction lp1 19:58 Drug: fentaNYL (PF) 25 mcg {Note: RASS 0.} Route: IVP; Site: right antecubital; lp1 20:15 Follow up: Response: Pain is decreased lp1 Intake: 18:53 IV: 1000ml; Total: 1000ml. tw2 19:37 IV: 1000ml; Total: 2000ml. lp1 Outcome: 21:34 Discharge ordered by MD. cp 21:51 Discharged to home ambulatory. lp1 21:51 Condition: good 21:51 Discharge instructions given to patient, Instructed on discharge instructions, follow up and referral plans. medication usage, Demonstrated understanding of instructions, follow-up care, medications, Prescriptions given X 1. 21:52 Patient left the ED. lp1 Addendum: 11/15/2020 12:04 Addendum: COVID-19 Result: Negative result given to RN to notify pt. Contacted by: deanna Gray RN. Notified pt of negative COVID 19 swab results. Pt advised that even with a negative test result they should remain in isolation until symptom free for 3 days without medication. Pt also advised to return to the ED for worsening symptoms. Signatures: Dispatcher [employer] EDMS Marina Rios RN RN Betsey Harris ds1 Nat Snider RN RN lp1 Malini Baca RN RN Rashad Sandoval PA PA cp Wise, Tara, RN RN tw2 Margarita Jenkins 3 Ling Zaldivar RN tw2 Corrections: (The following items were deleted from the chart) 11/11 17:05 16:41 General: Appears in no apparent distress. well groomed, Behavior is calm, tw2 cooperative, appropriate for age, tw2
--- NOTE | 2020-11-11 21:35 | EDPHYS ---
Physician Documentation [facility] Name: Ara Plunkett Age: 35 yrs Sex: Female : 1985 Arrival Date: 11/11/2020 Time: 16:21 Bed 8 Private MD: ED Physician Alex Lemons HPI: 11/11 16:45 This 35 yrs old Female presents to ER via Wheelchair with complaints of High cp Blood Pressure, Irregular Pulse. 16:45 The patient has elevated blood pressure and discovered this at home, with a home device.cp 16:45 Onset: The symptoms/episode began/occurred today. Associated signs and symptoms: cp Pertinent positives: chest pain, racing heart. Severity of symptoms: in the emergency department the blood pressure is unchanged, despite home interventions. Historical: - Allergies: 16:29 Bactrim; sv 16:29 Flagyl; sv 16:29 Morphine; sv 16:29 steroids; sv 16:29 Toradol; sv 16:29 tramadol; sv - PMHx: 16:29 Diabetes - NIDDM; sv - PSHx: 16:29 None; sv - Immunization history:: Flu vaccine is not up to date. - Social history:: Smoking status: Patient reports the use of cigarette tobacco products, smokes one-half pack cigarettes per day. ROS: 16:50 Constitutional: Negative for body aches, chills, fever, poor PO intake. cp 16:50 Eyes: Negative for injury, pain, redness, and discharge. cp 16:50 ENT: Negative for ear pain, sore throat, difficulty swallowing, difficulty handling secretions. 16:50 Cardiovascular: Positive for chest pain, palpitations, Negative for edema. 16:50 Respiratory: Positive for shortness of breath, Negative for cough, wheezing. 16:50 Abdomen/GI: Positive for nausea, Negative for abdominal pain, vomiting, diarrhea, constipation. 16:50 Back: Negative for pain at rest, pain with movement. 16:50 Neuro: Negative for altered mental status, loss of consciousness, syncope, weakness. 16:50 All other systems are negative. Exam: 16:40 ECG was reviewed by the Attending Physician. cp 16:55 Constitutional: The patient appears in no acute distress, alert, awake, cp non-diaphoretic, non-toxic, well developed, well nourished. 16:55 Head/Face: Normocephalic, atraumatic. cp 16:55 Eyes: Periorbital structures: appear normal, Conjunctiva: normal, no exudate, no injection, Sclera: no appreciated abnormality, Lids and lashes: appear normal, bilaterally. 16:55 ENT: External ear(s): are unremarkable, Nose: is normal, Posterior pharynx: Airway: no evidence of obstruction, patent. 16:55 Neck: ROM/movement: is normal, is supple, without pain, no range of motions limitations. 16:55 Chest/axilla: Inspection: normal, Palpation: is normal, no crepitus, no tenderness. 16:55 Cardiovascular: Rate: tachycardic, Rhythm: regular, Edema: is not appreciated, JVD: is not appreciated. 16:55 Respiratory: the patient does not display signs of respiratory distress, Respirations: normal, no use of accessory muscles, no retractions, labored breathing, is not present, Breath sounds: are clear throughout, no decreased breath sounds, no stridor, no wheezing. 16:55 Abdomen/GI: Inspection: abdomen appears normal, Palpation: abdomen is soft and non-tender, in all quadrants. 16:55 Back: pain, is absent, ROM is normal. 16:55 Neuro: Orientation: to person, place \T\ time. Mentation: is normal, Cerebellar function: is grossly normal, Motor: moves all fours, strength is normal, Sensation: is normal. Vital Signs: 16:27 Weight 68.04 kg; Height 5 ft. 2 in. (157.48 cm); Pain 7/10; sv 16:30 BP 145 / 103; Pulse 114; Resp 18; Temp 98.0(TE); Pulse Ox 100% on R/A; dh3 16:50 BP 139 / 95; Pulse 106; Resp 17; Pulse Ox 100% on R/A; tw2 17:42 BP 128 / 81; Pulse 99; Resp 16; Pulse Ox 100% on R/A; tw2 17:53 Temp 98.8(O); tw2 19:45 BP 132 / 88; Pulse 107; Resp 14; Pulse Ox 100% on R/A; Pain 9/10; lp1 21:30 BP 125 / 94; Pulse 96; Resp 17; Temp 98.7(O); Pulse Ox 100% on R/A; lp1 16:27 Body Mass Index 27.44 (68.04 kg, 157.48 cm) sv MDM: 16:33 Patient medically screened. cp 17:00 Differential diagnosis: cardiac arrythmia, electrolyte abnormality, pulmonary embolism. cp 21:33 Data reviewed: vital signs, nurses notes, lab test result(s), EKG, radiologic studies, cp CT scan, plain films. 21:33 Test interpretation: by ED physician or midlevel provider: ECG. Counseling: I had a cp detailed discussion with the patient and/or guardian regarding: the historical points, exam findings, and any diagnostic results supporting the discharge/admit diagnosis, lab results, radiology results, to return to the emergency department if symptoms worsen or persist or if there are any questions or concerns that arise at home. Response to treatment: the patient's symptoms have markedly improved after treatment. Special discussion: Based on the patient's history, exam, and Dx evaluation, there is no indication for emergent intervention or inpatient Tx. It is understood by the patient/guardian that if the Sx's persist or worsen they need to return immediately for re-evaluation. 11/11 16:38 Order name: Basic Metabolic Panel cp 11/11 16:38 Order name: CBC with Diff cp 11/11 16:38 Order name: LFT's cp 11/11 16:38 Order name: Magnesium cp 11/11 16:38 Order name: NT PRO-BNP; Complete Time: 17:31 cp 11/11 16:38 Order name: PT-INR; Complete Time: 20:56 cp 11/11 16:38 Order name: Troponin (emerg Dept Use Only); Complete Time: 17:31 cp 11/11 16:38 Order name: COVID-19 cp 11/11 16:38 Order name: Urine Microscopic Only; Complete Time: 18:48 cp 11/11 16:38 Order name: UDS; Complete Time: 17:31 cp 11/11 16:38 Order name: Influenza Screen (a \T\ B); Complete Time: 18:48 cp 11/11 16:40 Order name: Basic Metabolic Panel; Complete Time: 17:31 EDMS 11/11 17:34 Interpretation: Normal except: NA 132; GLUC 528; GFR 56. cp 11/11 16:40 Order name: CBC with Automated Diff; Complete Time: 18:48 EDMS 11/11 17:36 Interpretation: Normal except: WBC 11.1; RBC 5.00; PLT 417; GEMA% 76.4; NEUT A 8.5. 12/ 16:40 Order name: Liver (Hepatic) Function; Complete Time: 17:31 EDMS 19 16:38 Order name: XRAY Chest (1 view); Complete Time: 18:48 / 16:40 Order name: Magnesium; Complete Time: 17:31 EDMS 11/11 17:21 Order name: CBC Smear Scan; Complete Time: 18:48 EDMS 11/11 17:23 Order name: Urine Dipstick--Ancillary (enter results); Complete Time: 18:48 eb 11/11 17:23 Order name: Urine --Ancillary (enter results); Complete Time: 18:48 11/11 18:57 Order name: LAB Add On 11/11 18:59 Order name: D-Dimer; Complete Time: 20:56 EDMS 11/11 19:08 Order name: CT Chest For PE Angio; Complete Time: 21:27 / 21:27 Interpretation: Report reviewed. 11/11 19:53 Order name: Glucose, Ancillary Testing; Complete Time: 20:56 EDMS 11/11 16:38 Order name: EKG; Complete Time: 16:41 11/11 16:38 Order name: Cardiac monitoring; Complete Time: 16:39 11/11 16:38 Order name: EKG - Nurse/Tech; Complete Time: 16:39 11/11 16:38 Order name: IV Saline Lock; Complete Time: 16:54 11/11 16:38 Order name: Labs collected and sent; Complete Time: 16:54 11/11 16:38 Order name: O2 Per Protocol; Complete Time: 16:54 11/11 16:38 Order name: O2 Sat Monitoring; Complete Time: 16:54 11/11 16:38 Order name: Urine Dipstick-Ancillary (obtain specimen); Complete Time: 17:39 11/11 16:38 Order name: Urine Test (obtain specimen); Complete Time: 17:39 11/11 19:18 Order name: Accucheck Blood Glucose; Complete Time: 19:49 cp EC:40 Rate is 104 beats/min. Rhythm is regular. ME interval is normal. QRS interval is cp normal. QT interval is normal. T waves are Inverted in leads III, aVR. Interpreted by me. Reviewed by me. Administered Medications: 16:50 Drug: NS 0.9% 1000 ml Route: IV; Rate: 1 bolus; Site: right antecubital; tw2 18:53 Follow up: Response: No adverse reaction; IV Status: Completed infusion; IV Intake: tw2 1000ml 16:50 Drug: Zofran (Ondansetron) 4 mg Route: IVP; Site: right antecubital; tw2 18:27 Follow up: Response: No adverse reaction; Nausea is decreased tw2 17:46 CANCELLED (Physician Discretion): Tylenol 1000 mg PO once cp 17:50 Drug: Insulin Regular Human 7 units {Co-Signature: tw2 (Ling Zaldivar RN).} Route: IVP; ph Site: right antecubital; 19:49 Follow up: Response: Blood sugar is lowered lp1 17:52 Drug: NS 0.9% 1000 ml Route: IV; Rate: 1 bolus; Site: right antecubital; ph 19:37 Follow up: IV Status: Completed infusion; IV Intake: 1000ml lp1 19:57 Drug: Zofran (Ondansetron) 4 mg Route: IVP; Site: right antecubital; lp1 20:15 Follow up: Response: No adverse reaction lp1 19:58 Drug: fentaNYL (PF) 25 mcg {Note: RASS 0.} Route: IVP; Site: right antecubital; lp1 20:15 Follow up: Response: Pain is decreased lp1 Disposition: 11/12 07:34 Co-signature as Attending Physician, Alex Lemons MD. rn Disposition: 11/11/20 21:34 Discharged to Home. Impression: Other chest pain, Diabetes mellitus due to underlying condition with hyperglycemia. - Condition is Stable. - Discharge Instructions: Nonspecific Chest Pain. - Prescriptions for Cyclobenzaprine 10 mg Oral Tablet - take 1 tablet by ORAL route every 8 hours As needed; 20 tablet. - Medication Reconciliation Form, Thank You Letter, Antibiotic Education, Prescription Opioid Use form. - Follow up: Private Physician; When: 1 - 2 days; Reason: Recheck today's complaints. - Problem is new. - Symptoms have improved. Signatures: Dispatcher [employer] Bhavik Mcculloughie, RN RN Alex Lemons MD MD rn Pena, Laura, RN RN lp1 Malini Baca RN RN Rashad Tavarez PA PA cp Ling Zaldivar RN RN tw2 Ling Zaldivar RN tw2 Corrections: (The following items were deleted from the chart) 11/11 17:46 17:45 Tylenol 1000 mg PO once ordered. cp cp 18:59 18:57 D-DIMER+COAG.LAB.BRZ ordered. EDMN EDMS 21:52 21:34 11/11/2020 21:34 Discharged to Home. Impression: Other chest pain; Diabetes lp1 mellitus due to underlying condition with hyperglycemia. Condition is Stable. Forms are Medication Reconciliation Form, Thank You Letter, Antibiotic Education, Prescription Opioid Use. Follow up: Private Physician; When: 1 - 2 days; Reason: Recheck today's complaints. Problem is new. Symptoms have improved. cp
--- NOTE | 2020-11-13 07:36 | EKG ---
Test Date: 2020-11-11 Test Time: 16:34:23 Bakery Demonstrator: JOAN MEASUREMENT RESULTS: Intervals: Rate: 104 MA: 134 QRSD: 80 QT: 324 QTc: 426 [place]: P: 49 MA: 134 QRS: 62 T: 25 INTERPRETIVE STATEMENTS: Sinus tachycardia Otherwise normal ECG Compared to ECG 10/31/2020 21:11:31 No significant changes Electronically Signed On 11-13-20 07:34:37 LOCATE TECHNICIAN by Juan Ray
[2020-11-14 03:55] VITALS: O2SAT 100
[2020-11-14 04:01] VITALS: BP 125/94; TEMP 98.7
== END 2020-11-11 21:52 | disposition home or self-care (01) ==
LOC: ER 16:20
DX: E11.65 Type 2 diabetes mellitus with hyperglycemia (principal); Z20.828 Contact with and (suspected) exposure to other viral communicable diseases; F17.210 Nicotine dependence, cigarettes, uncomplicated; Z88.1 Allergy status to other antibiotic agents; Z88.5 Allergy status to narcotic agent; Z88.6 Allergy status to analgesic agent; Z88.8 Allergy status to other drugs, medicaments and biological substances
CPT/HCPCS: 36415; 71045; 71275; 80048; 80076; 80307; 81003; 81015; 81025; 82947; 83735; 83880; 84484; 85025; 85379; 85610; 87804; 93005; 96361; 96374; 96375; 99285; J2405; J3010; J7030; Q9967; U0002

== ENCOUNTER 2020-12-15 22:48 | Emergency (ER) | payer SELFPAY ==
--- OUTSIDE RECORDS SUMMARY | 2020-12-15 22:50 | XMS REPORT | Clinical Summary ---
:1985 Author Organization [facility] Address [address] [place] [address] Care Team Providers Name Role Phone Pcp, MD Primary Care Provider Unavailable Allergies No Known [...] VACCINE (#1) 2020 Results Not on fileafter 12/15/2019 Advance Directives For more information, please contact: [phone] Code Status Date Activated Date Inactivated Comments Full Code 04/04/2018 5:20 PM 04/09/2018 3:29 PM This code status was determined by: Patient
--- OUTSIDE RECORDS SUMMARY | 2020-12-15 22:50 | XMS REPORT | Clinical Summary ---
:1985 Author Organization [facility] Address [address] [place] [address] Care Team Providers Name Role Phone Asked, [...] of diab etes mellitus; Thrombocytosis (HCC) after 12/15/2019 Surgical History Surgery Date Site/Laterality Comments NO [...] Comments Blood Pressure 145/81 09/29/2020 7:00 PM SUPPORT SPECIALIST Pulse 83 09/29/2020 7:00 PM SUPPORT SPECIALIST Temperature 36.6 C (97.9 F) 09/29/2020 2:23 PM SUPPORT SPECIALIST Respiratory Rate 16 09/29/2020 7:00 PM SUPPORT SPECIALIST Oxygen Saturation 99% 09/29/2020 7:00 PM SUPPORT SPECIALIST Inhaled Oxygen Concentration - - Weight 71.2 kg (157 lb) 09/29/2020 2:19 PM SUPPORT SPECIALIST Height 157.5 cm (5' 2") 09/29/2020 2:19 PM SUPPORT SPECIALIST Body Mass Index 28.72 09/29/2020 2:19 PM SUPPORT SPECIALIST Plan of Treatment Health Maintenance Due Date Last Done Comments DIABETES: RETINAL EYE EXAM 1993 DIABETIC FOOT EXAM 1993 URINE MICROALBUMIN 1993 COVID-19 VACCINE (1 of 2) 1999 CERVICAL CANCER SCREENING 2004 INFLUENZA VACCINE 06/24/2020 Procedures Procedure Name Priority Date/Time Associated Comments Diagnosis POC GLUCOSE Routine 09/29/2020 7:13 Results for this PM SUPPORT SPECIALIST procedure are i n the results section. TROPONIN Timed 09/29/2020 6:54 Results for this PM SUPPORT SPECIALIST procedure are i n the results section. CT RENAL STONE PROTOCOL STAT 09/29/2020 5:17 Results for this PM SUPPORT SPECIALIST procedure are i n the results section. HCG QUALITATIVE, URINE STAT 09/29/2020 4:13 R esults for this SCREEN PM SUPPORT SPECIALIST procedure are i n the results section. URINALYSIS SCREEN AND STAT 09/29/2020 4:13 Re sults for this MICROSCOPY, WITH REFLEX PM SUPPORT SPECIALIST proc edure are in TO CULTURE the results section. TROPONIN, I-STAT STAT 09/29/2020 4:09 Results for this PM SUPPORT SPECIALIST procedure are i n the results section. LIPASE LEVEL STAT 09/29/2020 4:09 Results for this PM SUPPORT SPECIALIST procedure are i n the results section. CREATINE KINASE, TOTAL STAT 09/29/2020 4:09 R esults for this (CPK) PM SUPPORT SPECIALIST procedure are i n the results section. ESTIMATED GFR STAT 09/29/2020 4:09 Results fo r this PM SUPPORT SPECIALIST procedure are i n the results section. HC COMPLETE BLD COUNT STAT 09/29/2020 4:09 Re sults for this W/AUTO DIFF PM SUPPORT SPECIALIST procedure are i n the results section. B NATRIURETIC PEPTIDE STAT 09/29/2020 4:09 Re sults for this PM SUPPORT SPECIALIST procedure are i n the results section. COMPREHENSIVE METABOLIC STAT 09/29/2020 4:09 Results for this PANEL PM SUPPORT SPECIALIST procedure are i n the results section. XR CHEST 1 VW PORTABLE STAT 09/29/2020 4:01 R esults for this PM SUPPORT SPECIALIST procedure are i n the results section. ECG ED PRELIMINARY Routine 09/29/2020 2:33 Resul ts for this INTERPRETATION PM SUPPORT SPECIALIST procedure are in the results section. ECG 12-LEAD STAT 09/29/2020 2:09 Results for this PM SUPPORT SPECIALIST procedure are i n the results section. after 12/15/2019 Results POC glucose (09/29/2020 7:13 PM SUPPORT SPECIALIST) Pathologist Sig nature POC glucose 207 (H) 65 - 99 mg/dL LD [place] Comment: [facility] Clicker Operator Name: [facility] Device ID: [id number] Chartable: Notified nurse Specimen Blood Performing Organization Address City/[facility] [place] [address], [address] [place] [address] 5 PATHOLOGY AND GENOMIC MEDICINE [place] [address] [facility] [address] Troponin (09/29/2020 6:54 PM SUPPORT SPECIALIST) Troponin <0.006 0.000 - 0.040 LD [place] [...] 0.020 ng/mL Specimen Plasma Performing Organization Address City/[facility]/ZIP Code [place] [address], [address] [place] [address] 5 PATHOLOGY AND GENOMIC MEDICINE [place] [address] [facility] [phone] [address] Renal Stone Protocol (09/29/2020 5:17 PM SUPPORT SPECIALIST) Specimen Narrative Performed At Examination: CT RENAL [...] calculus or obstructi on. Please see above. [facility]-[id number] Procedure Note Interface, Radiology Results Incoming - 09/29/2020 5:46 PM SUPPORT SPECIALIST Examination: CT RENAL STONE PROTOCOL Clinical history: [...] calculu s or obstruction. Please see above. [facility]-[id number] Performing Organization Address City/State/ZIP Code Phon e Number [facility] [address] [place] [address] Urinalysis screen and microscopy, with reflex to culture (09/29/2020 4:13 PM SUPPORT SPECIALIST) Specimen site Clean catch [facility] Color, UA Yellow [facility] Appearance, UA Clear [facility] Specific gravity, UA 1.028 1.001 - 1.035 [facility] pH, UA 5.0 5.0 - 8.5 [facility] Protein, UA 1+ (A) Negative [facility] Glucose, UA 3+ (A) Negative [facility] Ketones, UA Trace (A) Negative [facility] Bilirubin, UA Negative Negative [facility] Blood, UA Negative Negative [facility] Nitrite, UA Negative Negative [facility] Urobilinogen, UA <2.0 <2.0 [facility] Leukocyte esterase, Negative Negative [facility] Epithelial cells, UA 1 /HPF [facility] WBC, UA 2 0 - 5 /HPF [facility] RBC, UA 1 0 - 5 /HPF [facility] Yeast, UA None seen [facility] Yeast with None seen [facility] pseudohyphae, UA [facility] Specimen Urine Performing Organization Address City/State/ZIP [place] [address], [address] [place] [address] 5 PATHOLOGY AND GENOMIC MEDICINE [place] [address] [address] [address] [facility] [address] hCG qualitative, urine screen (09/29/2020 4:13 PM SUPPORT SPECIALIST) Pathologist [facility] hCG qualitative, NegativeComment: LD GRAHAMIST urine Sensitivity of HCG [facility] test: 25 mIU/ml HOSPITAL Specimen Urine Performing Organization Address City/[facility]/ZIP [facility] [place] [address], [address] [address] 5 PATHOLOGY AND GENOMIC MEDICINE [place] [address] [address] [address] [facility] [address] Estimated GFR (09/29/2020 4:09 PM SUPPORT SPECIALIST) [facility] Estimated GFR >=90 mL/min/1.73 RU[place] Comment: m2 ORTHODOXY THE Catergory Units Interpretation [facility] G1 [...] in 2014. Specimen Plasma Performing Organization Address [facility] Phon e Number TW DEPARTMENT OF , [address] [place] [address] 5 PATHOLOGY AND GENOMIC MEDICINE [place] [address] [facility] [address] Troponin, I-Stat (09/29/2020 4:09 PM SUPPORT SPECIALIST) [facility] Troponin, I-Stat 0.00 0.00 - 0.08 RU[place] Comment: ng/mL [place]Y THE 0.09 - 1.49 ng/ml May indicate increa sed risk of acute [facility] coronary syndrome. HOSPITAL >=1.5 ng/ml Consistent with acute myocardial infarction. The diagnostic value of a single normal or non-diagnos tic result is questionable. Serial samples at 2-6 hour i ntervals are required to rule out acute myocardial injury. Specimen Plasma Performing Organization Address City/[facility]/ZIP Code [place] [address], [address] [address] 5 PATHOLOGY AND GENOMIC MEDICINE [facility] THE [address] [address] [facility] [address] CBC with platelet and differential (09/29/2020 4:09 PM SUPPORT SPECIALIST) WBC 12.08 (H) 4.50 - 11.00 JAFFE k/uL [facility] RBC 4.84 4.20 - 5.50 RUBY m/uL [facility] HGB 14.6 12.0 - 16.0 RUBY g/dL [facility] HCT 42.6 37.0 - 47.0 % [facility] MCV 88.0 82.0 - 100.0 RUBY fL [facility] MCH 30.2 27.0 - 34.0 pg [facility] MCHC 34.3 31.0 - 37.0 RUBY g/dL [facility] RDW - SD 39.1 37.0 - 55.0 fL [facility] MPV 9.7 8.8 - 13.2 fL [facility] Platelet count 541 (H) 150 - 400 k/uL [facility] Nucleated RBC 0.00 /100 WBC [facility] Neutrophils 80.3 (H) 39.0 - 69.0 % [facility] Lymphocytes 14.8 (L) 25.0 - 45.0 % [facility] Monocytes 3.3 0.0 - 10.0 % [facility] Eosinophils 0.9 0.0 - 5.0 % [facility] Basophils 0.5 0.0 - 1.0 % [facility] Immature granulocytes 0.2Comment: 0.0 - 1.0 % RUBY "Immature [facility] granulocytes" [facility] (promyelocytes HOSPITAL , myelocytes, metamyelocytes ) Specimen Plasma Performing Organization Address City/State/ZIP Code [place] [address], [address] [place] [address] 5 PATHOLOGY AND GENOMIC MEDICINE [facility] THE [address] [address] [facility] [address] B natriuretic peptide (09/29/2020 4:09 PM SUPPORT SPECIALIST) Pathologist Sig nature BNP 36 0 - 100 pg/mL [facility] Specimen Blood Performing Organization Address City/State/ZIP Code Phon e Number [facility] [address], [address] [place] [address] 5 PATHOLOGY AND GENOMIC MEDICINE [facility] THE [address] [address] [facility] [address] Lipase level (09/29/2020 4:09 PM SUPPORT SPECIALIST) Pathologist Sig nature Lipase 32 13 - 60 U/L [facility] Specimen Plasma Performing Organization Address City/State/ZIP Code Phon e Number [facility] [place] [address], [address] [place] [address] 5 PATHOLOGY AND GENOMIC MEDICINE [facility] [address] [place] [phone] Creatine kinase, total (CPK) (09/29/2020 4:09 PM SUPPORT SPECIALIST) Pathologist Sig nature Creatine kinase 39 26 - 192 U/L [facility] Specimen Plasma Performing Organization Address City/[facility] Phon e Number [facility] [place] [address], [address] [place] [address] 5 PATHOLOGY AND GENOMIC MEDICINE [facility] THE [address] [address] [facility] [address] Comprehensive metabolic panel (09/29/2020 4:09 PM SUPPORT SPECIALIST) Sodium 136 135 - 148 RU[place] mEq/L [facility] Potassium 3.3 (L) 3.5 - 5.0 RUBY mEq/L [facility] Chloride 101 98 - 112 RU[place] mEq/L [facility] CO2 24 24 - 31 mEq/L [facility] Anion gap 11 7 - 15 mEq/L [facility] BUN 5 (L) 6 - 20 mg/dL [facility] Creatinine 0.62 0.50 - 0.90 RUBY mg/dL [facility] Glucose 289 (H) 65 - 99 mg/dL [facility] Calcium 9.5 8.3 - 10.2 RUBY mg/dL [facility] Protein 8.3 6.3 - 8.3 [place] Comment: [facility] 4.6-7.[facility] g/dL HOS[facility] 1 week 4.4-7.6 g/dL 7 months-1year 5.1-7.3 g/dL 1-2 years 5.6-7.5 g/dL >3 years 6.0-8.0 g/dL 18-150 6.3-8.3 g/dL Albumin 4.1 3.5 - 5.0 RUBY g/dL [facility] A/G ratio 1.0 0.7 - 3.8 [facility] Alkaline phosphatase 117 (H) 35 - 104 U/L [facility] AST 20 10 - 35 U/L [facility] ALT 7 5 - 50 U/L [facility] Total bilirubin 0.5 0.0 - 1.2 RUBY mg/dL [facility] Specimen Plasma Performing Organization Address City/State/ZIP [place] [address], [address] [place] [address] 5 PATHOLOGY AND GENOMIC MEDICINE [facility] THE [address] [address] [facility] [phone] XR Chest 1 Vw Portable (09/29/2020 4:01 PM SUPPORT SPECIALIST) Specimen Narrative Performed At EXAMINATION: XR CHEST 1 VW PORTABLE [facility] CLINICAL HISTORY:35 years Female ches t pain [facility] COMPARISON: None IMPRESSION: Cardiomediastinal silhouette and pulmonary vasculature are within normal limits. Lungs are clear. Bones are unr emarkable. [id number] Procedure Note Interface, Radiology Results Incoming - 09/29/2020 4:07 PM SUPPORT SPECIALIST EXAMINATION: XR CHEST 1 VW PORTABLE CLINICAL HISTORY:35 years Female chest pain [facility] COMPARISON: None IMPRESSION: Cardiomediastinal silhouette and pulmona ry vasculature are within normal limits. Lungs are clear. Bones are unremarkable. [id number] Performing Organization Address City/State/ZIP Code Phon e Number [facility] [address] [place] [address] ECG ED Preliminary Interpretation - Not an Order (09/29/2020 2:33 PM SUPPORT SPECIALIST) Narrative Performed At Ezra Persaud MD 09/30/2020 8:15 AM ECG ED Preliminary Interpretation - Not an Order Performed by: Ezra Persaud MD Authorized by: Ezar Persaud MD ECG reviewed by ED Physician in the abse nce of a lighting equipment operator: yes Interpretation: Interpretation: normal Rate: ECG rate: 81 ECG rate assessment: normal Rhythm: Rhythm: sinus rhythm Ectopy: Ectopy: none QRS: QRS axis: Normal QRS intervals: Normal Conduction: Conduction: normal ST segments: ST segments: Normal T waves: T waves: non-specific ECG 12 lead (09/29/2020 2:09 PM SUPPORT SPECIALIST) Pathologist Sig nature Ventricular rate 81 [facility] Atrial rate 81 [facility] WI interval 138 [facility] QRSD interval 88 [facility] QT interval 390 [facility] QTC interval 453 [facility] P axis 1 29 [facility] QRS axis 1 70 [facility] T wave axis 24 [facility] EKG impression Normal sinus [facility] rhythm-Nonspecific T wave abnormality-Abnormal ECG-No previous ECGs available-Electronicall y Signed By Lake Lawson MD ([id number]) on 09/30/2020 9:08:53 AM Specimen Narrative Performed At This result has an attachment that is no t available. Performing Organization Address City/State/ZIP Code Phon e Number [facility] M[address] [place] [address] after 12/15/2019 Advance Directives For more information, please contact: [phone] Type Date Recorded Patient Manager Military Explanati on Advance Directives, Living Will 09/29/2020 5:11 PM and Medical Power of Health Researcher
[2020-12-15] MEDS ORDERED: NA CHLORIDE 0.9% 1,000 ML ONE (23:43)
[2020-12-15] MEDS ORDERED: LIDOCAINE 1% 20 ML MDV ONE (23:44)
[2020-12-15 23:54] LABS: Absolute Lymphocytes (CBC) 3.3 K/uL (0.7-4.9); Basophils % 0.8 % (0-1.3); Hematocrit 41.5 % (36.0-45.0); Lymphocytes % 31.1 % (15.3-44.8); MPV 8.2 fL (7.6-11.3); RBC Red Blood Cell Count 4.75 M/uL (3.86-4.86)
[2020-12-16 00:05] LABS: ALT/SGPT 8 U/L (12-78); AST/SGOT 8 U/L (15-37); Albumin 3.6 g/dL (3.4-5.0); Alkaline Phosphatase 101 U/L (45-117); BUN Blood Urea Nitrogen 8 mg/dL (7-18); Bicarbonate 27 mmol/L (21-32); Bilirubin Direct < 0.1 mg/dL (0-0.2); Bilirubin Total 0.4 mg/dL (0.2-1.0); Glucose Level 317 mg/dL (74-106); Potassium 3.6 mmol/L (3.5-5.1); Sodium Level 137 mmol/L (136-145)
[2020-12-16] MEDS ORDERED: FENTANYL CITR 100 MCG/2 ML ONE (00:33)
[2020-12-16] MEDS ORDERED: ONDANSETRON 4 MG/2 ML VIAL ONE (00:35)
[2020-12-16 00:47] LABS: Urine Blood 3+ (NEG); Urine Glucose 2+ (NEG); Urine Protein NEGATIVE (NEG); Urine pH 5.5 (5.0-7.0)
[2020-12-16] MEDS ORDERED: CEPHALEXIN 250 MG CAP ONE (01:11)
--- NOTE | 2020-12-16 01:28 | EDPHYS ---
Physician Documentation [facility] Name: Ara Mercado Age: 35 yrs Sex: Female : 1985 Arrival Date: 12/15/2020 Time: 22:52 Bed 18 Private MD: ED Physician Papito Castro HPI: 12/16 00:15 This 35 yrs old Female presents to ER via Ambulatory with complaints of Boil, mh7 General Weakness. 00:15 The patient presents with an abscess of the Left groin. Description: erythematous, mh7 fluctuant, raised, swollen. Onset: The symptoms/episode began/occurred 3 week(s) ago. Possible cause(s): unknown. Associated signs and symptoms: Pertinent positives: drainage, erythema, swelling, Pertinent negatives: foreign body sensation, fever, headache, nausea, shortness of breath, vomiting. Modifying factors: the symptoms are alleviated by nothing, the symptoms are aggravated by touching. Severity of symptoms: At their worst the symptoms were moderate, 14 day(s) ago, in the emergency department the symptoms have improved, moderately. MANAGER CASE: 12/15 23:09 LMP 12/15/2020 lp1 Historical: - Allergies: 23:06 Morphine; lp1 23:06 Flagyl; lp1 23:06 Bactrim; lp1 23:06 steroids; lp1 23:06 Toradol; lp1 23:06 tramadol; lp1 - Home Meds: 23:06 metformin 500 mg Oral tab 1 tab three times a day [Active]; lp1 - PMHx: 23:06 Diabetes - NIDDM; lp1 - PSHx: 23:06 None; lp1 - Immunization history:: Adult Immunizations up to date. - Social history:: Smoking status: Patient reports the use of cigarette tobacco products, smokes one-half pack cigarettes per day. ROS: 12/16 00:15 Constitutional: Negative for fever, chills, and weight loss, Eyes: Negative for injury, mh7 pain, redness, and discharge, ENT: Negative for injury, pain, and discharge, Neck: Negative for injury, pain, and swelling, Cardiovascular: Negative for chest pain, palpitations, and edema, Respiratory: Negative for shortness of breath, cough, wheezing, and pleuritic chest pain, Abdomen/GI: Negative for abdominal pain, nausea, vomiting, diarrhea, and constipation, Back: Negative for injury and pain, : Negative for injury, bleeding, discharge, and swelling, MS/Extremity: Negative for injury and deformity, Neuro: Negative for headache, weakness, numbness, tingling, and seizure, Psych: Negative for depression, anxiety, suicide ideation, homicidal ideation, and hallucinations, Allergy/Immunology: Negative for hives, rash, and allergies, Endocrine: Negative for neck swelling, polydipsia, polyuria, polyphagia, and marked weight changes, Hematologic/Lymphatic: Negative for swollen nodes, abnormal bleeding, and unusual bruising. Exam: 00:15 Constitutional: This is a well developed, well nourished patient who is awake, alert, mh7 and in no acute distress. Head/Face: Normocephalic, atraumatic. Eyes: Pupils equal round and reactive to light, extra-ocular motions intact. Lids and lashes normal. Conjunctiva and sclera are non-icteric and not injected. Cornea within normal limits. Periorbital areas with no swelling, redness, or edema. Neck: Trachea midline, no thyromegaly or masses palpated, and no cervical lymphadenopathy. Supple, full range of motion without nuchal rigidity, or vertebral point tenderness. No Meningismus. Chest/axilla: Normal chest wall appearance and motion. Nontender with no deformity. No lesions are appreciated. Cardiovascular: Regular rate and rhythm with a normal S1 and S2. No gallops, murmurs, or rubs. Normal PMI, no JVD. No pulse deficits. Respiratory: Lungs have equal breath sounds bilaterally, clear to auscultation and percussion. No rales, rhonchi or wheezes noted. No increased work of breathing, no retractions or nasal flaring. 00:15 Abdomen/GI: Soft, non-tender, with normal bowel sounds. No distension or tympany. No guarding or rebound. No evidence of tenderness throughout. Back: No spinal tenderness. No costovertebral tenderness. Full range of motion. 00:15 MS/ Extremity: Pulses equal, no cyanosis. Neurovascular intact. Full, normal range of motion. Neuro: Awake and alert, GCS 15, oriented to person, place, time, and situation. Cranial nerves II-XII grossly intact. Motor strength 5/5 in all extremities. Sensory grossly intact. Cerebellar exam normal. Normal gait. Psych: Awake, alert, with orientation to person, place and time. Behavior, mood, and affect are within normal limits. 00:15 : CVA tenderness, is absent, Pelvic Exam: External exam: is normal, Bladder: is normal. 00:15 Skin: abscess, that is small, approximately 2 cm(s), of the left groin, with fluctuance, that is moderate, with induration. Vital Signs: 12/15 23:06 BP 122 / 89; Pulse 105; Resp 16; Temp 98.4(O); Pulse Ox 100% on R/A; Weight 68.95 kg lp1 (R); Height 5 ft. 2 in. (157.48 cm); Pain 9/10; 12/16 01:07 BP 114 / 70; Pulse 93; Resp 17; Pulse Ox 100% on R/A; mg2 01:39 BP 115 / 72; Pulse 89; Resp 18; Temp 98; Pulse Ox 100% on R/A; mg2 12/15 23:06 Body Mass Index 27.80 (68.95 kg, 157.48 cm) lp1 Procedures: 01:11 I \T\ D: Incision and drainage was performed for an abscess of the left groin Prepped [facility] with Betadine, Anesthetized with 5 ml's 1% Lidocaine. Incised with #11 blade. Drained small amount purulent fluid. Loculations removed. Cultures obtained. Abscess cavity explored. Packed with iodoform gauze, Dressing: non-Adherent dressing, the patient tolerated the procedure well. MDM: 01:11 Differential diagnosis: abscess, cellulitis, insect bite. Data reviewed: vital signs, [facility] lab test result(s), finger stick glucose, CBC, electrolytes, urinalysis, bacteruria, UPT: negative. Data interpreted: Pulse oximetry: on room air is 100 %. Counseling: I had a detailed discussion with the patient and/or guardian regarding: the historical points, exam findings, and any diagnostic results supporting the discharge/admit diagnosis, lab results, the need for outpatient follow up, to return to the emergency department if symptoms worsen or persist or if there are any questions or concerns that arise at home. Response to treatment: the patient's symptoms have markedly improved after treatment. 01:28 Patient medically screened. [facility] 12/15 23:25 Order name: CBC with Diff; Complete Time: 00:20 mh7 12/15 23:25 Order name: Basic Metabolic Panel; Complete Time: 00:20 mh7 12/15 23:25 Order name: LFT's; Complete Time: 00:20 mh7 12/15 23:27 Order name: Glucose, Ancillary Testing; Complete Time: 00:20 EDMS 12/16 00:07 Order name: Wound Culture jb5 12/16 00:42 Order name: Urine --Ancillary (enter results); Complete Time: 00:50 tt3 12/16 00:42 Order name: Urine Dipstick--Ancillary (enter results); Complete Time: 00:50 tt3 12/16 01:17 Order name: Glucose, Ancillary Testing; Complete Time: 01:18 EDMS 12/15 23:25 Order name: Urine Dipstick-Ancillary (obtain specimen); Complete Time: 00:40 mh7 12/15 23:25 Order name: Urine Test (obtain specimen); Complete Time: 00:40 mh7 12/16 01:10 Order name: Accucheck Blood Glucose; Complete Time: 01:13 mh7 Administered Medications: 12/15 23:40 Drug: NS 0.9% 1000 ml Route: IV; Rate: 1000 ml; Site: right wrist; mg2 12/16 01:06 Follow up: Response: No adverse reaction; IV Status: Completed infusion; IV Intake: mg2 1000ml 12/15 23:50 Drug: Lidocaine (1 %) 10 ml {Note: administered by the provider.} Volume: 5 ml; Route: mg2 Infiltration; 12/16 00:00 Follow up: Response: No adverse reaction mg2 00:20 Drug: Zofran (Ondansetron) 4 mg Route: IVP; Site: right wrist; mg2 01:01 Follow up: Response: No adverse reaction mg2 00:21 Drug: fentaNYL (PF) 25 mcg Route: IVP; Site: right wrist; mg2 01:06 Follow up: Response: No adverse reaction mg2 01:07 Drug: KeFLEX 500 mg Route: PO; mg2 01:07 Follow up: Response: No adverse reaction mg2 Disposition: 12/16/20 01:28 Discharged to Home. Impression: Left Groin Abscess, Diabetes with Hyperglycemia, UTI. - Condition is Stable. - Discharge Instructions: Skin Abscess, [id number], Urinary Tract Infection, Adult, [id number], Diabetes Mellitus and Food, Hyperglycemia, [id number]. - Prescriptions for Keflex 500 mg Oral Capsule - take 1 capsule by ORAL route every 6 hours for 10 days; 40 capsule. Cipro 500 mg Oral Tablet - take 1 tablet by ORAL route every 12 hours for 7 days; 14 tablet. - Medication Reconciliation Form, Thank You Letter, Antibiotic Education, Prescription Opioid Use form. - Follow up: Private Physician; When: 48 Hours; Reason: Wound Recheck, Worsening of condition, Recheck today's complaints, Continuance of care, Re-evaluation by your physician. Follow up: Emergency Department; When: 48 Hours; Reason: Wound Recheck, Worsening of condition. - Problem is new. - Symptoms have improved. Signatures: Dispatcher [employer] EDMS Nat Snider RN RN lp1 Urbano Espinoza RN RN mg2 Papito Castro MD MD mh7 Corrections: (The following items were deleted from the chart) 01:40 01:28 12/16/2020 01:28 Discharged to Home. Impression: Left Groin Abscess; Diabetes mg2 with Hyperglycemia; UTI. Condition is Stable. Forms are Medication Reconciliation Form, Thank You Letter, Antibiotic Education, Prescription Opioid Use. Follow up: Private Physician; When: 48 Hours; Reason: Wound Recheck, Worsening of condition, Recheck today's complaints, Continuance of care, Re-evaluation by your physician. Follow up: Emergency Department; When: 48 Hours; Reason: Wound Recheck, Worsening of condition. Problem is new. Symptoms have improved. mh7
--- NOTE | 2020-12-16 01:28 | ER ---
Nurse's Notes [facility] Name: Ara Mercado Age: 35 yrs Sex: Female : 1985 Arrival Date: 12/15/2020 Time: 22:52 Bed 18 Private MD: Diagnosis: Left Groin Abscess;Diabetes with Hyperglycemia;UTI Presentation: 12/15 23:04 Chief complaint: Patient states: Abscess to left groin/labia area x 3 weeks; reports lp1 some draining from site; Denies any fever; reports feeling fatigue. Ebola Screen: No symptoms or risks identified at this time. Risk Assessment: Do you want to hurt yourself or someone else? Patient reports no desire to harm self or others. Onset of symptoms was December 15, 2020. 23:04 Method Of Arrival: Ambulatory lp1 23:04 Acuity: CHARISSA 3 lp1 23:06 Coronavirus screen: Client denies travel out of the [place] in the last 14 days. At this lp1 time, the client does not indicate any symptoms associated with coronavirus-19. Initial Sepsis Screen: Does the patient meet any 2 criteria? No. Patient's initial sepsis screen is negative. Does the patient have a suspected source of infection? No. Patient's initial sepsis screen is negative. [employer]: 23:09 LMP 12/15/2020 lp1 Historical: - Allergies: 23:06 Morphine; lp1 23:06 Flagyl; lp1 23:06 Bactrim; lp1 23:06 steroids; lp1 23:06 Toradol; lp1 23:06 tramadol; lp1 - Home Meds: 23:06 metformin 500 mg Oral tab 1 tab three times a day [Active]; lp1 - PMHx: 23:06 Diabetes - NIDDM; lp1 - PSHx: 23:06 None; lp1 - Immunization history:: Adult Immunizations up to date. - Social history:: Smoking status: Patient reports the use of cigarette tobacco products, smokes one-half pack cigarettes per day. Screenin:09 Abuse screen: Denies threats or abuse. Denies injuries from another. Nutritional lp1 screening: No deficits noted. Tuberculosis screening: No symptoms or risk factors identified. 12/16 00:01 Fall Risk IV access (20 points). mg2 Assessment: 01/22 23:17 General: Appears in no apparent distress. comfortable, Behavior is calm, cooperative. mg2 Pain: Complains of pain in left labia aspect. Neuro: Level of Consciousness is awake, alert, obeys commands, Oriented to person, place, time, situation. Cardiovascular: Capillary refill < 3 seconds Patient's skin is warm and dry. Respiratory: Airway is patent Respiratory effort is even, unlabored, Respiratory pattern is regular, symmetrical. GI: No signs and/or symptoms were reported involving the gastrointestinal system. : No signs and/or symptoms were reported regarding the genitourinary system. EENT: No signs and/or symptoms were reported regarding the EENT system. Derm: Abscess located on left groin near left labia aspect is quarter sized, is hot to touch, is red, is raised. Musculoskeletal: Circulation, motion, and sensation intact. Capillary refill < 3 seconds. Vital Signs: 23:06 BP 122 / 89; Pulse 105; Resp 16; Temp 98.4(O); Pulse Ox 100% on R/A; Weight 68.95 kg lp1 (R); Height 5 ft. 2 in. (157.48 cm); Pain 9/10; 12/16 01:07 BP 114 / 70; Pulse 93; Resp 17; Pulse Ox 100% on R/A; mg2 01:39 BP 115 / 72; Pulse 89; Resp 18; Temp 98; Pulse Ox 100% on R/A; mg2 12/15 23:06 Body Mass Index 27.80 (68.95 kg, 157.48 cm) lp1 ED Course: 12/15 22:52 Patient arrived in ED. am2 23:05 Triage completed. lp1 23:06 Arm band placed on. lp1 23:11 Urbano Espinoza, VÍCTOR is Primary Nurse. mg2 23:12 Papito Castro MD is Attending Physician. mh7 23:40 Inserted saline lock: 20 gauge in right wrist, using aseptic technique. Blood collected.jb5 12/16 00:00 Assist provider with I \T\ D: of an abscess on left groin aspect Set up I\T\D tray. mg 2 Performed by Papito Castro MD Culture sent to lab. Wound packed. 4X4s, Dressing with 4X4s, Patient tolerated well. 00:01 Patient has correct armband on for positive identification. Placed in gown. mg2 00:05 Dressings: 4X4s X 1; pelvis. jb5 01:39 Door closed. mg2 01:39 IV discontinued, intact, bleeding controlled, No redness/swelling at site. Pressure mg2 dressing applied. Administered Medications: 12/15 23:40 Drug: NS 0.9% 1000 ml Route: IV; Rate: 1000 ml; Site: right wrist; mg2 12/16 01:06 Follow up: Response: No adverse reaction; IV Status: Completed infusion; IV Intake: mg2 1000ml 12/15 23:50 Drug: Lidocaine (1 %) 10 ml {Note: administered by the provider.} Volume: 5 ml; Route: mg2 Infiltration; 12/16 00:00 Follow up: Response: No adverse reaction mg2 00:20 Drug: Zofran (Ondansetron) 4 mg Route: IVP; Site: right wrist; mg2 01:01 Follow up: Response: No adverse reaction mg2 00:21 Drug: fentaNYL (PF) 25 mcg Route: IVP; Site: right wrist; mg2 01:06 Follow up: Response: No adverse reaction mg2 01:07 Drug: KeFLEX 500 mg Route: PO; mg2 01:07 Follow up: Response: No adverse reaction mg2 Intake: 01:06 IV: 1000ml; Total: 1000ml. mg2 Outcome: 01:28 Discharge ordered by . mh7 01:39 Discharged to home ambulatory. mg2 01:39 Condition: stable 01:39 Discharge instructions given to patient, Instructed on discharge instructions, follow up and referral plans. medication usage, wound care, Demonstrated understanding of instructions, follow-up care, medications, wound care, Prescriptions given X 2. 01:40 Patient left the ED. mg2 Addendum: 12/19/2020 07:45 Addendum: Culture Results: Positive urine culture. No further action required. Bacteria s s sensitive to prescribed antibiotic. Signatures: Adriane Coronado RN RN ss Nat Snider RN RN lp1 Beatriz Perez jb5 Nicole Price Michele, RN RN mg2 Papito Castro MD MD mh7
[2020-12-16 01:59] VITALS: O2SAT 100
[2020-12-16 02:02] VITALS: BP 115/72; TEMP 98
== END 2020-12-16 01:40 | disposition home or self-care (01) ==
LOC: ER 22:48
PROC: 0J9C0ZZ Drainage of Pelvic Region Subcutaneous Tissue and Fascia, Open Approach (ICD-10-PCS; principal; 2020-12-16)
DX: L02.214 Cutaneous abscess of groin (principal); E11.65 Type 2 diabetes mellitus with hyperglycemia; N39.0 Urinary tract infection, site not specified; F17.210 Nicotine dependence, cigarettes, uncomplicated; Z88.1 Allergy status to other antibiotic agents; Z88.5 Allergy status to narcotic agent; Z88.8 Allergy status to other drugs, medicaments and biological substances
CPT/HCPCS: 36415; 80048; 80076; 81003; 81025; 82947; 85025; 87070; 87077; 87186; 87205; 96361; 96374; 96375; 99284; J2405; J3010; J7030

== ENCOUNTER 2020-12-26 21:05 | Emergency (ER) | payer SELFPAY ==
--- OUTSIDE RECORDS SUMMARY | 2020-12-26 21:08 | XMS REPORT | Clinical Summary ---
:1985 Author Organization [facility] Address [address] [place] [address] Care Team Providers Name Role Phone Asked, [...] of diab etes mellitus; Thrombocytosis (HCC) after 12/26/2019 Surgical History Surgery Date Site/Laterality Comments NO [...] Comments Blood Pressure 145/81 09/29/2020 7:00 PM ENGLISH INSTRUCTOR Pulse 83 09/29/2020 7:00 PM ENGLISH INSTRUCTOR Temperature 36.6 C (97.9 F) 09/29/2020 2:23 PM ENGLISH INSTRUCTOR Respiratory Rate 16 09/29/2020 7:00 PM ENGLISH INSTRUCTOR Oxygen Saturation 99% 09/29/2020 7:00 PM ENGLISH INSTRUCTOR Inhaled Oxygen Concentration - - Weight 71.2 kg (157 lb) 09/29/2020 2:19 PM ENGLISH INSTRUCTOR Height 157.5 cm (5' 2") 09/29/2020 2:19 PM ENGLISH INSTRUCTOR Body Mass Index 28.72 09/29/2020 2:19 PM ENGLISH INSTRUCTOR Plan of Treatment Health Maintenance Due Date Last Done Comments DIABETES: RETINAL EYE EXAM 1993 DIABETIC FOOT EXAM 1993 URINE MICROALBUMIN 1993 COVID-19 VACCINE (1 of 2) 1999 CERVICAL CANCER SCREENING 2004 INFLUENZA VACCINE 06/24/2020 Procedures Procedure Name Priority Date/Time Associated Comments Diagnosis POC GLUCOSE Routine 09/29/2020 7:13 Results for this PM ENGLISH INSTRUCTOR procedure are i n the results section. TROPONIN Timed 09/29/2020 6:54 Results for this PM ENGLISH INSTRUCTOR procedure are i n the results section. CT RENAL STONE PROTOCOL STAT 09/29/2020 5:17 Results for this PM ENGLISH INSTRUCTOR procedure are i n the results section. HCG QUALITATIVE, URINE STAT 09/29/2020 4:13 R esults for this SCREEN PM ENGLISH INSTRUCTOR procedure are i n the results section. URINALYSIS SCREEN AND STAT 09/29/2020 4:13 Re sults for this MICROSCOPY, WITH REFLEX PM ENGLISH INSTRUCTOR proc edure are in TO CULTURE the results section. TROPONIN, I-STAT STAT 09/29/2020 4:09 Results for this PM ENGLISH INSTRUCTOR procedure are i n the results section. LIPASE LEVEL STAT 09/29/2020 4:09 Results for this PM ENGLISH INSTRUCTOR procedure are i n the results section. CREATINE KINASE, TOTAL STAT 09/29/2020 4:09 R esults for this (CPK) PM ENGLISH INSTRUCTOR procedure are i n the results section. ESTIMATED GFR STAT 09/29/2020 4:09 Results fo r this PM ENGLISH INSTRUCTOR procedure are i n the results section. HC COMPLETE BLD COUNT STAT 09/29/2020 4:09 Re sults for this W/AUTO DIFF PM ENGLISH INSTRUCTOR procedure are i n the results section. B NATRIURETIC PEPTIDE STAT 09/29/2020 4:09 Re sults for this PM ENGLISH INSTRUCTOR procedure are i n the results section. COMPREHENSIVE METABOLIC STAT 09/29/2020 4:09 Results for this PANEL PM ENGLISH INSTRUCTOR procedure are i n the results section. XR CHEST 1 VW PORTABLE STAT 09/29/2020 4:01 R esults for this PM ENGLISH INSTRUCTOR procedure are i n the results section. ECG ED PRELIMINARY Routine 09/29/2020 2:33 Resul ts for this INTERPRETATION PM ENGLISH INSTRUCTOR procedure are in the results section. ECG 12-LEAD STAT 09/29/2020 2:09 Results for this PM ENGLISH INSTRUCTOR procedure are i n the results section. after 12/26/2019 Results POC glucose (09/29/2020 7:13 PM ENGLISH INSTRUCTOR) Pathologist Sig nature POC glucose 207 (H) 65 - 99 mg/dL [facility] [place] Comment: [facility] Metrology Specialist Name: Marina [facility] Device ID: [id number] Chartable: Notified nurse Specimen Blood Performing Organization Address City/[facility] [place] [id number], [address] [place] [address] 5 PATHOLOGY AND GENOMIC MEDICINE [place] [address] [facility] [address] Troponin (09/29/2020 6:54 PM ENGLISH INSTRUCTOR) Troponin <0.006 0.000 - 0.040 [place] [...] 0.020 ng/mL Specimen Plasma Performing Organization Address City/[facility]/ZIP [place] [address], [address] [place] [address] 5 PATHOLOGY AND GENOMIC MEDICINE [place] [address] [facility] [address] [address] Renal Stone Protocol (09/29/2020 5:17 PM ENGLISH INSTRUCTOR) Specimen Narrative Performed At Examination: CT RENAL [...] calculus or obstructi on. Please see above. [facility]-[id number] Procedure Note Interface, Radiology Results Incoming - 09/29/2020 5:46 PM ENGLISH INSTRUCTOR Examination: CT RENAL STONE PROTOCOL Clinical history: [...] calculu s or obstruction. Please see above. [facility]-[id number] Performing Organization Address City/State/ZIP Code Phon e Number [facility] [address] [place] [address] Urinalysis screen and microscopy, with reflex to culture (09/29/2020 4:13 PM ENGLISH INSTRUCTOR) Specimen site Clean catch [facility] Color, UA Yellow [facility] Appearance, UA Clear [facility] Specific gravity, UA 1.028 1.001 - 1.035 [facility] pH, UA 5.0 5.0 - 8.5 [facility] Protein, UA 1+ (A) Negative [facility] Glucose, UA 3+ (A) Negative [facility] Ketones, UA Trace (A) Negative [facility] Bilirubin, UA Negative Negative [facility] Blood, UA Negative Negative [facility] Nitrite, UA Negative Negative [facility] Urobilinogen, UA <2.0 <2.0 [facility] Leukocyte esterase, Negative Negative [facility] Epithelial cells, UA 1 /HPF [facility] WBC, UA 2 0 - 5 /HPF [facility] RBC, UA 1 0 - 5 /HPF [facility] Yeast, UA None seen [facility] Yeast with None seen [facility] pseudohyphae, UA [facility] Specimen Urine Performing Organization Address City/State/ZIP [place] [address], [address] [place] [address] 5 PATHOLOGY AND GENOMIC MEDICINE [place] [address] [address] [facility] [address] hCG qualitative, urine screen (09/29/2020 4:13 PM ENGLISH INSTRUCTOR) Pathologist [facility] hCG qualitative, NegativeComment: LD [facility] urine Sensitivity of HCG [facility] test: 25 mIU/ml HOSPITAL Specimen Urine Performing Organization Address City/[facility]/ZIP [facility] [place] [address], [address] [place] [address] 5 PATHOLOGY AND GENOMIC MEDICINE [place] [address] [address] [facility] [address] Estimated GFR (09/29/2020 4:09 PM ENGLISH INSTRUCTOR) [facility] Estimated GFR >=90 mL/min/1.73 [place] Comment: m2 [facility] [facility] Catergory Units Interpretation [facility] DL[facility] G1 [...] in 2014. Specimen Plasma Performing Organization Address [facility] Phon e Number TW DEPARTMENT OF , [address] [place] [address] 5 PATHOLOGY AND GENOMIC MEDICINE [place] [address] [facility] [address] Troponin, I-Stat (09/29/2020 4:09 PM ENGLISH INSTRUCTOR) [facility] Troponin, I-Stat 0.00 0.00 - 0.08 [place] Comment: ng/mL [facility] 0.09 - 1.49 ng/ml May indicate increa sed risk of acute [facility] coronary syndrome. HOSPITAL >=1.5 ng/ml Consistent with acute myocardial infarction. The diagnostic value of a single normal or non-diagnos tic result is questionable. Serial samples at 2-6 hour i ntervals are required to rule out acute myocardial injury. Specimen Plasma Performing Organization Address City/[facility]/ZIP Code [place] [address], [address] [place] [address] 5 PATHOLOGY AND GENOMIC MEDICINE [facility] THE [address] [address] [facility] [address] CBC with platelet and differential (09/29/2020 4:09 PM ENGLISH INSTRUCTOR) WBC 12.08 (H) 4.50 - 11.00 JAFFE k/uL [facility] RBC 4.84 4.20 - 5.50 [place] m/uL [facility] HGB 14.6 12.0 - 16.0 [place] g/dL [facility] HCT 42.6 37.0 - 47.0 % [facility] MCV 88.0 82.0 - 100.0 [place] fL [facility] MCH 30.2 27.0 - 34.0 pg [facility] MCHC 34.3 31.0 - 37.0 [place] g/dL [facility] RDW - SD 39.1 37.0 - 55.0 fL [facility] MPV 9.7 8.8 - 13.2 fL [facility] Platelet count 541 (H) 150 - 400 k/uL [facility] Nucleated RBC 0.00 /100 WBC [facility] Neutrophils 80.3 (H) 39.0 - 69.0 % [facility] Lymphocytes 14.8 (L) 25.0 - 45.0 % [facility] Monocytes 3.3 0.0 - 10.0 % [facility] Eosinophils 0.9 0.0 - 5.0 % [facility] Basophils 0.5 0.0 - 1.0 % [facility] Immature granulocytes 0.2Comment: 0.0 - 1.0 % [place] "Immature [facility] granulocytes" [facility] (promyelocytes HOSPITAL , myelocytes, metamyelocytes ) Specimen Plasma Performing Organization Address City/State/ZIP Code [place] [address], [address] [place] [address] 5 PATHOLOGY AND GENOMIC MEDICINE [facility] THE [address] [address] [facility] [address] B natriuretic peptide (09/29/2020 4:09 PM ENGLISH INSTRUCTOR) Pathologist Sig nature BNP 36 0 - 100 pg/mL [facility] Specimen Blood Performing Organization Address City/State/ZIP Code Phon e Number [facility] [place] [address], [address] [place] [address] 5 PATHOLOGY AND GENOMIC MEDICINE [facility] THE [address] [address] [facility] [address] Lipase level (09/29/2020 4:09 PM ENGLISH INSTRUCTOR) Pathologist Sig nature Lipase 32 13 - 60 U/L [facility] Specimen Plasma Performing Organization Address City/State/ZIP Code Phon e Number [facility] [place] [address], [address] [place] [address] 5 PATHOLOGY AND GENOMIC MEDICINE [facility] THE [address] [place] [phone] Creatine kinase, total (CPK) (09/29/2020 4:09 PM ENGLISH INSTRUCTOR) Pathologist Sig nature Creatine kinase 39 26 - 192 U/L [facility] Specimen Plasma Performing Organization Address City/[facility] Phon e Number [facility] [place] [address], [address] [place] [address] 5 PATHOLOGY AND GENOMIC MEDICINE [facility] THE [address] [address] [facility] [address] Comprehensive metabolic panel (09/29/2020 4:09 PM ENGLISH INSTRUCTOR) Sodium 136 135 - 148 [place] mEq/L [facility] Potassium 3.3 (L) 3.5 - 5.0 [place] mEq/L [facility] Chloride 101 98 - 112 [place] mEq/L [facility] CO2 24 24 - 31 mEq/L [facility] Anion gap 11 7 - 15 mEq/L [facility] BUN 5 (L) 6 - 20 mg/dL [facility] Creatinine 0.62 0.50 - 0.90 [place] mg/dL [facility] Glucose 289 (H) 65 - 99 mg/dL [facility] Calcium 9.5 8.3 - 10.2 [place] mg/dL [facility] Protein 8.3 6.3 - 8.3 [place] Comment: g/dL [facility] 4.6-7.0 g/dL HOSPITAL 1 week 4.4-7.6 g/dL 7 months-1year 5.1-7.3 g/dL 1-2 years 5.6-7.5 g/dL >3 years 6.0-8.0 g/dL 18-150 6.3-8.3 g/dL Albumin 4.1 3.5 - 5.0 [place] g/dL [facility] A/G ratio 1.0 0.7 - 3.8 [facility] Alkaline phosphatase 117 (H) 35 - 104 U/L [facility] AST 20 10 - 35 U/L [facility] ALT 7 5 - 50 U/L [facility] Total bilirubin 0.5 0.0 - 1.2 [place] mg/dL [facility] Specimen Plasma Performing Organization Address City/State/ZIP [place] [address], [address] [place] [address] 5 PATHOLOGY AND GENOMIC MEDICINE [facility] THE [address] [address] [facility] [address] XR Chest 1 Vw Portable (09/29/2020 4:01 PM ENGLISH INSTRUCTOR) Specimen Narrative Performed At EXAMINATION: XR CHEST 1 VW PORTABLE [facility] CLINICAL HISTORY:35 years Female ches t pain [facility] COMPARISON: None IMPRESSION: Cardiomediastinal silhouette and pulmonary vasculature are within normal limits. Lungs are clear. Bones are unr emarkable. [facility]-[id number] Procedure Note Interface, Radiology Results Incoming - 09/29/2020 4:07 PM ENGLISH INSTRUCTOR EXAMINATION: XR CHEST 1 VW PORTABLE CLINICAL HISTORY:35 years Female chest pain [facility] COMPARISON: None IMPRESSION: Cardiomediastinal silhouette and pulmona ry vasculature are within normal limits. Lungs are clear. Bones are unremarkable. [id number] Performing Organization Address City/State/ZIP Code Phon e Number [facility] [address] [place] [address] ECG ED Preliminary Interpretation - Not an Order (09/29/2020 2:33 PM ENGLISH INSTRUCTOR) Narrative Performed At Ezra Persaud MD 09/30/2020 8:15 AM ECG ED Preliminary Interpretation - Not an Order Performed by: Ezra Persaud MD Authorized by: Ezra Persaud MD ECG reviewed by ED Physician in the abse nce of a rebar bender: yes Interpretation: Interpretation: normal Rate: ECG rate: 81 ECG rate assessment: normal Rhythm: Rhythm: sinus rhythm Ectopy: Ectopy: none QRS: QRS axis: Normal QRS intervals: Normal Conduction: Conduction: normal ST segments: ST segments: Normal T waves: T waves: non-specific ECG 12 lead (09/29/2020 2:09 PM ENGLISH INSTRUCTOR) Pathologist Sig nature Ventricular rate 81 [facility] Atrial rate 81 [facility] WY interval 138 [facility] QRSD interval 88 [facility] QT interval 390 [facility] QTC interval 453 [facility] P axis 1 29 [facility] QRS axis 1 70 [facility] T wave axis 24 [facility] EKG impression Normal sinus [facility] rhythm-Nonspecific T wave abnormality-Abnormal ECG-No previous ECGs available-Electronicall y Signed By Lake Lawson MD ([id number]) on 09/30/2020 9:08:53 AM Specimen Narrative Performed At This result has an attachment that is no t available. Performing Organization Address City/State/ZIP Code Phon e Number [facility] MUSE [address] [place] [address] after 12/26/2019 Advance Directives For more information, please contact: [phone] Type Date Recorded Patient Demolitionist Explanati on Advance Directives, Living Will 09/29/2020 5:11 PM and Medical Power of Bookkeeping Clerks Supervisor
--- OUTSIDE RECORDS SUMMARY | 2020-12-26 21:08 | XMS REPORT | Clinical Summary ---
:1985 Author Organization [facility] Address [address] [place] [address] Care Team Providers Name Role Phone Pcp, [...] VACCINE (#1) 2020 Results Not on fileafter 12/26/2019 Advance Directives For more information, please contact: [phone] Code Status Date Activated Date Inactivated Comments Full Code 04/04/2018 5:20 PM 04/09/2018 3:29 PM This code status was determined by: Patient
--- NOTE | 2020-12-26 21:58 | ER ---
Nurse's Notes [facility] Name: Ara Mercado Age: 35 yrs Sex: Female : 1985 Arrival Date: 12/26/2020 Time: 21:08 Bed Waiting Private MD: Diagnosis: Presentation: 12/26 21:57 Note Registration Nicole states, "she left 5 minutes after she got registered". ca1 ED Course: 21:08 Patient arrived in ED. am2 21:57 Patient's name was called from [facility]. No response. Unable to locate patient. Will ca1 disposition as left without being seen by a provider. Administered Medications: No medications were administered Outcome: 21:58 Patient left the ED. ca1 Signatures: Nicole Price am2 Suyapa Gonzalez RN RN ca1
== END 2020-12-26 21:58 | disposition left against medical advice (07) ==
LOC: ER 21:05
DX: R69 Illness, unspecified (principal); Z53.21 Procedure and treatment not carried out due to patient leaving prior to being seen by health care provider

== ENCOUNTER 2020-12-31 21:00 | Emergency (ER) | payer SELFPAY ==
--- OUTSIDE RECORDS SUMMARY | 2020-12-31 21:03 | XMS REPORT | Clinical Summary ---
:1985 Author Organization [facility] Address [address] [place] [address] Care Team Providers Name Role Phone Asked, [...] of diab etes mellitus; Thrombocytosis (HCC) after 12/31/2019 Surgical History Surgery Date Site/Laterality Comments NO [...] Comments Blood Pressure 145/81 09/29/2020 7:00 PM POWER BARKER OPERATOR Pulse 83 09/29/2020 7:00 PM POWER BARKER OPERATOR Temperature 36.6 C (97.9 F) 09/29/2020 2:23 PM POWER BARKER OPERATOR Respiratory Rate 16 09/29/2020 7:00 PM POWER BARKER OPERATOR Oxygen Saturation 99% 09/29/2020 7:00 PM POWER BARKER OPERATOR Inhaled Oxygen Concentration - - Weight 71.2 kg (157 lb) 09/29/2020 2:19 PM POWER BARKER OPERATOR Height 157.5 cm (5' 2") 09/29/2020 2:19 PM POWER BARKER OPERATOR Body Mass Index 28.72 09/29/2020 2:19 PM POWER BARKER OPERATOR Plan of Treatment Health Maintenance Due Date Last Done Comments DIABETES: RETINAL EYE EXAM 1993 DIABETIC FOOT EXAM 1993 URINE MICROALBUMIN 1993 COVID-19 VACCINE (1 of 2) 1999 HEPATITIS C SCREENING 2001 CERVICAL CANCER SCREENING 2004 INFLUENZA VACCINE 06/24/2020 Procedures Procedure Name Priority Date/Time Associated Comments Diagnosis POC GLUCOSE Routine 09/29/2020 7:13 Results for this PM POWER BARKER OPERATOR procedure are i n the results section. TROPONIN Timed 09/29/2020 6:54 Results for this PM POWER BARKER OPERATOR procedure are i n the results section. CT RENAL STONE PROTOCOL STAT 09/29/2020 5:17 Results for this PM POWER BARKER OPERATOR procedure are i n the results section. HCG QUALITATIVE, URINE STAT 09/29/2020 4:13 R esults for this SCREEN PM POWER BARKER OPERATOR procedure are i n the results section. URINALYSIS SCREEN AND STAT 09/29/2020 4:13 Re sults for this MICROSCOPY, WITH REFLEX PM POWER BARKER OPERATOR proc edure are in TO CULTURE the results section. TROPONIN, I-STAT STAT 09/29/2020 4:09 Results for this PM POWER BARKER OPERATOR procedure are i n the results section. LIPASE LEVEL STAT 09/29/2020 4:09 Results for this PM POWER BARKER OPERATOR procedure are i n the results section. CREATINE KINASE, TOTAL STAT 09/29/2020 4:09 R esults for this (CPK) PM POWER BARKER OPERATOR procedure are i n the results section. ESTIMATED GFR STAT 09/29/2020 4:09 Results fo r this PM POWER BARKER OPERATOR procedure are i n the results section. HC COMPLETE BLD COUNT STAT 09/29/2020 4:09 Re sults for this W/AUTO DIFF PM POWER BARKER OPERATOR procedure are i n the results section. B NATRIURETIC PEPTIDE STAT 09/29/2020 4:09 Re sults for this PM POWER BARKER OPERATOR procedure are i n the results section. COMPREHENSIVE METABOLIC STAT 09/29/2020 4:09 Results for this PANEL PM POWER BARKER OPERATOR procedure are i n the results section. XR CHEST 1 VW PORTABLE STAT 09/29/2020 4:01 R esults for this PM POWER BARKER OPERATOR procedure are i n the results section. ECG ED PRELIMINARY Routine 09/29/2020 2:33 Resul ts for this INTERPRETATION PM POWER BARKER OPERATOR procedure are in the results section. ECG 12-LEAD STAT 09/29/2020 2:09 Results for this PM POWER BARKER OPERATOR procedure are i n the results section. after 12/31/2019 Results POC glucose (09/29/2020 7:13 PM POWER BARKER OPERATOR) Pathologist Sig nature POC glucose 207 (H) 65 - 99 mg/dL [place] Comment: [facility] Bottle Caser Name: [facility] Device ID: [id number] Chartable: Notified nurse Specimen Blood Performing Organization Address [facility] [place] [address], [address] [place] [address] 5 PATHOLOGY AND GENOMIC MEDICINE [facility] THE [address] [facility] [address] Troponin (09/29/2020 6:54 PM POWER BARKER OPERATOR) Troponin <0.006 0.000 - 0.040 [place] Comment: ng/mL [facility] In patients suspected of having a myocardial [...] 0.020 ng/mL Specimen Plasma Performing Organization Address City/[facility]/ZIP Code [place] [address], [address] [place] [address] 5 PATHOLOGY AND GENOMIC MEDICINE [facility] THE [address] [address] [facility] [address] CT Renal Stone Protocol (09/29/2020 5:17 PM POWER BARKER OPERATOR) Specimen Narrative Performed At Examination: CT RENAL [...] calculus or obstructi on. Please see above. [facility]-[id number] Procedure Note Interface, Radiology Results Incoming - 09/29/2020 5:46 PM POWER BARKER OPERATOR Examination: CT RENAL STONE PROTOCOL Clinical history: [...] calculu s or obstruction. Please see above. [facility]-[id number] Performing Organization Address City/State/ZIP Code Phon e Number [facility] [address] [place] [address] Urinalysis screen and microscopy, with reflex to culture (09/29/2020 4:13 PM POWER BARKER OPERATOR) Specimen site Clean catch [facility] Color, UA Yellow [facility] Appearance, UA Clear [facility] Specific gravity, UA 1.028 1.001 - 1.035 [facility] pH, UA 5.0 5.0 - 8.5 [facility] Protein, UA 1+ (A) Negative [facility] Glucose, UA 3+ (A) Negative [facility] Ketones, UA Trace (A) Negative [facility] Bilirubin, UA Negative Negative [facility] Blood, UA Negative Negative [facility] Nitrite, UA Negative Negative [facility] Urobilinogen, UA <2.0 <2.0 [facility] Leukocyte esterase, Negative Negative [facility] UA [facility] Epithelial cells, UA 1 /HPF [facility] WBC, UA 2 0 - 5 /HPF [facility] RBC, UA 1 0 - 5 /HPF [facility] Yeast, UA None seen [facility] Yeast with None seen [facility] pseudohyphae, UA [facility] Specimen Urine Performing Organization Address City/State/ZIP [place] [address], [address] [place] [address] 5 PATHOLOGY AND GENOMIC MEDICINE [place] [facility] [address] [address] [facility] [phone] hCG qualitative, urine screen (09/29/2020 4:13 PM POWER BARKER OPERATOR) Pathologist [facility] hCG qualitative, NegativeComment: [place] urine Sensitivity of HCG [facility] test: 25 mIU/ml HOSPITAL Specimen Urine Performing Organization Address [facility] Phon e Number [facility] [place] [place] [address], [address] [place] [address] 5 PATHOLOGY AND GENOMIC MEDICINE [place] [facility] [address] [place] [phone] Estimated GFR (09/29/2020 4:09 PM POWER BARKER OPERATOR) [facility] Estimated GFR >=90 mL/min/1.73 [place] Comment: m2 [facility] Catergory Units Interpretation [facility] G1 [...] in 2014. Specimen Plasma Performing Organization Address [facility] Phon e Number [facility] [place] [address], [address] [place] [address] 5 PATHOLOGY AND GENOMIC MEDICINE [place] [facility] [address] [place] [phone] Troponin, I-Stat (09/29/2020 4:09 PM POWER BARKER OPERATOR) [facility] Troponin, I-Stat 0.00 0.00 - 0.08 [place] Comment: ng/mL [facility] 0.09 - 1.49 ng/ml May indicate increa sed risk of acute [facility] coronary syndrome. HOSPITAL >=1.5 ng/ml Consistent with acute myocardial infarction. The diagnostic value of a single normal or non-diagnos tic result is questionable. Serial samples at 2-6 hour i ntervals are required to rule out acute myocardial injury. Specimen Plasma Performing Organization Address City/[facility] Code Phon e Number [facility] [place] [address], [address] [place] [address] 5 PATHOLOGY AND GENOMIC MEDICINE [facility] THE [address] [address] [facility] [phone] CBC with platelet and differential (09/29/2020 4:09 PM POWER BARKER OPERATOR) WBC 12.08 (H) 4.50 - 11.00 [facility]FF[facility] k/uL [facility] RBC 4.84 4.20 - 5.50 [place] m/uL [facility] HGB 14.6 12.0 - 16.0 [place] g/dL [facility] HCT 42.6 37.0 - 47.0 % [facility] MCV 88.0 82.0 - 100.0 [place] fL [facility] MCH 30.2 27.0 - 34.0 pg [facility] MCHC 34.3 31.0 - 37.0 [place] g/dL [facility] RDW - SD 39.1 37.0 - 55.0 fL [facility] MPV 9.7 8.8 - 13.2 fL [facility] Platelet count 541 (H) 150 - 400 k/uL [facility] Nucleated RBC 0.00 /100 WBC [facility] Neutrophils 80.3 (H) 39.0 - 69.0 % [facility] Lymphocytes 14.8 (L) 25.0 - 45.0 % [facility] Monocytes 3.3 0.0 - 10.0 % [facility] Eosinophils 0.9 0.0 - 5.0 % [facility] Basophils 0.5 0.0 - 1.0 % [facility] Immature granulocytes 0.2Comment: 0.0 - 1.0 % [place] "Immature [facility] granulocytes" [facility] (promyelocytes HOSPITAL , myelocytes, metamyelocytes ) Specimen Plasma Performing Organization Address City/State/ZIP Code Phon e Number [facility] [place] [address], [address] [place] [address] 5 PATHOLOGY AND GENOMIC MEDICINE [facility] [address] [facility] [phone] B natriuretic peptide (09/29/2020 4:09 PM POWER BARKER OPERATOR) Pathologist Sig nature BNP 36 0 - 100 pg/mL [facility] Specimen Blood Performing Organization Address City/State/ZIP Code Phon e Number [facility] [place] [address], [address] [place] [address] 5 PATHOLOGY AND GENOMIC MEDICINE [facility] THE [address] [address] [facility] [phone] Lipase level (09/29/2020 4:09 PM POWER BARKER OPERATOR) Pathologist Sig nature Lipase 32 13 - 60 U/L [facility] Specimen Plasma Performing Organization Address City/State/ZIP Code Phon e Number [facility] DEPARTMENT OF [facility], [address] [place] [address] 5 PATHOLOGY AND GENOMIC MEDICINE [facility] [address] [facility] [phone] Creatine kinase, total (CPK) (09/29/2020 4:09 PM POWER BARKER OPERATOR) Pathologist Sig nature Creatine kinase 39 26 - 192 U/L [facility] Specimen Plasma Performing Organization Address City/[facility] Phon e Number [facility] DEPARTMENT OF [facility], [address] [place] [address] 5 PATHOLOGY AND GENOMIC MEDICINE [facility] [address] [facility] [phone] Comprehensive metabolic panel (09/29/2020 4:09 PM POWER BARKER OPERATOR) Sodium 136 135 - 148 [place] mEq/L [facility] Potassium 3.3 (L) 3.5 - 5.0 [place] mEq/L [facility] Chloride 101 98 - 112 [place] mEq/L [facility] CO2 24 24 - 31 mEq/L [facility] Anion gap 11 7 - 15 mEq/L [facility] BUN 5 (L) 6 - 20 mg/dL [facility] Creatinine 0.62 0.50 - 0.90 [place] mg/dL [facility] Glucose 289 (H) 65 - 99 mg/dL [facility] Calcium 9.5 8.3 - 10.2 [place] mg/dL [facility] Protein 8.3 6.3 - 8.3 [place] Comment: g/dL [facility] [place] 4.6-7.0 g/dL HOSPITAL 1 week 4.4-7.6 g/dL 7 months-1year 5.1-7.3 g/dL 1-2 years 5.6-7.5 g/dL >3 years 6.0-8.0 g/dL 18-150 6.3-8.3 g/dL Albumin 4.1 3.5 - 5.0 [place] g/dL [facility] A/G ratio 1.0 0.7 - 3.8 [facility] Alkaline phosphatase 117 (H) 35 - 104 U/L [facility] AST 20 10 - 35 U/L [facility] ALT 7 5 - 50 U/L [facility] Total bilirubin 0.5 0.0 - 1.2 [place] mg/dL [facility] Specimen Plasma Performing Organization Address City/State/Z[place] [address], [address] [place] [address] 5 PATHOLOGY AND GENOMIC MEDICINE [facility] THE [address] [address] [facility] [phone] XR Chest 1 Vw Portable (09/29/2020 4:01 PM POWER BARKER OPERATOR) Specimen Narrative Performed At EXAMINATION: XR CHEST 1 VW PORTABLE [facility] CLINICAL HISTORY:35 years Female ches t pain [facility] COMPARISON: None IMPRESSION: Cardiomediastinal silhouette and pulmonary vasculature are within normal limits. Lungs are clear. Bones are unr emarkable. [id number] Procedure Note Interface, Radiology Results Incoming - 09/29/2020 4:07 PM POWER BARKER OPERATOR EXAMINATION: XR CHEST 1 VW PORTABLE CLINICAL HISTORY:35 years Female chest pain [facility] COMPARISON: None IMPRESSION: Cardiomediastinal silhouette and pulmona ry vasculature are within normal limits. Lungs are clear. Bones are unremarkable. [id number] Performing Organization Address City/State/ZIP Code Phon e Number [facility] [address] [place] [address] ECG ED Preliminary Interpretation - Not an Order (09/29/2020 2:33 PM POWER BARKER OPERATOR) Narrative Performed At Ezra Persaud MD 09/30/2020 8:15 AM ECG ED Preliminary Interpretation - Not an Order Performed by: Ezra Persaud MD Authorized by: Ezra Persaud MD ECG reviewed by ED Physician in the abse nce of a advertising project manager: yes Interpretation: Interpretation: normal Rate: ECG rate: 81 ECG rate assessment: normal Rhythm: Rhythm: sinus rhythm Ectopy: Ectopy: none QRS: QRS axis: Normal QRS intervals: Normal Conduction: Conduction: normal ST segments: ST segments: Normal T waves: T waves: non-specific ECG 12 lead (09/29/2020 2:09 PM POWER BARKER OPERATOR) Pathologist Sig nature Ventricular rate 81 [facility] Atrial rate 81 [facility] FL interval 138 [facility] QRSD interval 88 [facility] QT interval 390 [facility] QTC interval 453 [facility] P axis 1 29 [facility] QRS axis 1 70 [facility] T wave axis 24 [facility] EKG impression Normal sinus [facility] rhythm-Nonspecific T wave abnormality-Abnormal ECG-No previous ECGs available-Electronicall y Signed By Lake Lawson MD ([id number]) on 09/30/2020 9:08:53 AM Specimen Narrative Performed At This result has an attachment that is no t available. Performing Organization Address City/State/ZIP Code Phon e Number [facility] MUSE [address] [place] [address] after 12/31/2019 Advance Directives For more information, please contact: [phone] Type Date Recorded Patient Oil Well Engineer Explanati on Advance Directives, Living Will 09/29/2020 5:11 PM and Medical Power of Loan Interviewer Mortgage
--- OUTSIDE RECORDS SUMMARY | 2020-12-31 21:03 | XMS REPORT | Clinical Summary ---
:1985 Author Organization [facility] Address [address] [place] [address] Care Team Providers Name Role Phone Pcp, [...] VACCINE (#1) 2020 Results Not on fileafter 12/31/2019 Advance Directives For more information, please contact: [phone] Code Status Date Activated Date Inactivated Comments Full Code 04/04/2018 5:20 PM 04/09/2018 3:29 PM This code status was determined by: Patient
--- OUTSIDE RECORDS SUMMARY | 2020-12-31 21:05 | XMS REPORT | Summary of Care ---
:1985 Author Organization [facility] Address [address] [place] [address] Care Team Providers Name Role Phone Pcp, Patient Does Not Have A Primary Care Provider [id number] Reason for Visit Reason Comments Abscess Auth/Cert Status Reason Specialty Diagnoses / Referred By Referred To Procedures Contact Contact Emergency Medicine Ad[facility] Em ergency Dept [address] [place] [address] Fax: Encounter Details Date Type Department Care Team Description 12/26/2020 - Emergency ADC-Emergency Samson Abdalla, Wound chec k, abscess (Primary Dx); 12/27/2020 Department PAC Dysuria [address] [place], [place] [address] [place] [address] [phone] Allergies Active Allergy Reactions Severity Noted Date Comments Metronidazole Hcl Unknown - See comments 02/19/2020 Morphine Hives 12/26/2020 Sulfa (Sulfonamide Antibiotics) Unknown - See comments 10/12/2020 Ketorolac Anxiety 09/16/2020 Tramadol Palpitations 12/26/2020 documented as of this encounter (statuses as of 12/27/2020) Medications Medication Sig Dispensed Refills Start Date [...] mellitus with other specified complication, unspecified whether long-term insulin use ibuprofen 600 mg Take 1 [...] as of this encounter (statuses as of 12/27/2020) Active Problems No known active problemsdocumented as of this encounter (statuses as of 12/27/2020) Social History Tobacco Use Types Packs/Day Years Used Date Never Assessed Sex Assigned at Date Recorded Not on file COVID-19 Exposure Response Date Recorded In the last month, have you been in contact with No / Unsure 12/26/2020 9:45 PM SODIUM METHYLATE OPERATOR someone who was confirmed or suspected to have Coronavirus / COVID-19? documented as of this encounter Last Filed Vital Signs Vital Sign Reading Time Taken Comments Blood Pressure 112/81 12/26/2020 9:49 PM SODIUM METHYLATE OPERATOR Pulse 105 12/26/2020 9:49 PM SODIUM METHYLATE OPERATOR Temperature 37.2 C (98.9 F) 12/26/2020 9:49 PM SODIUM METHYLATE OPERATOR Respiratory Rate 20 12/26/2020 9:49 PM SODIUM METHYLATE OPERATOR Oxygen Saturation 98% 12/26/2020 9:49 PM SODIUM METHYLATE OPERATOR Inhaled Oxygen Concentration - - Weight 68.4 kg (150 lb 12.8 oz) 12/26/2020 9:49 PM SODIUM METHYLATE OPERATOR Height 157.5 cm (5' 2") 12/26/2020 9:49 PM SODIUM METHYLATE OPERATOR Body Mass Index 27.58 12/26/2020 9:49 PM SODIUM METHYLATE OPERATOR documented in this encounter Discharge Instructions AttachmentsThe following attachments cannot be sent through Care Everywhere. Wound Care (Panamanian)Diabetes, Diet (Panamanian)documented in this encounter ED Notes Nicole Santana RN - 12/26/2020 9:45 PM CSTCC: Pt reports abscess in groin packed on 12/15/20, not healing well despite taking keflex. Pt also states, "It still hurts, and so does my back. I think I may have a UTI." PMHx: NIDDM, anxiety PSH: none MEDS:xanax and metforming LMP: 12/14/20 Tetanus: UTD Awake, alert, oriented, resp reg unlabored, skin warm, color appropriate for race, moves all ext without difficulty, amb with steady gait Appears in no distress UM METHYLATE OPERATOR documented in this encounter Miscellaneous Notes ED Nurse Note - Nicole Santana RN - 12/27/2020 12:08 AM CSTPt given printed and verbal discharge instructions regarding wound check/dysuria, encouraged hydration, Pt verbalized understanding of instructions,pt encouraged to follow up with pcp Advised to seek medical attention for new/prolonged/worsening of symptoms, Awake, alert oriented, resp reg unlabored, skin w/d, pt leaving in no apparent distress, UM METHYLATE OPERATOR documented in this encounter Plan of Treatment Health Maintenance Due Date Last Done Comments VARICELLA VACCINES (1 of 2 - 1984 2-dose childhood series) Depression Screening 1995 SARS-CoV-2 (COVID-19) Vaccine (1 1999 of 2) DTaP,Tdap,and Td Vaccines (1 - 2002 Tdap) PAP SMEAR 2004 INFLUENZA VACCINE (#1) 2020 PNEUMOCOCCAL 0-64 YEARS COMBINED Aged Out No longer eligible based on SERIES patient's age to complete this topic documented as of this encounter Procedures Procedure Name Priority Date/Time Associated Comments Diagnosis URINALYSIS STAT 12/26/2020 10:02 PM Dysuria Results for this SODIUM METHYLATE OPERATOR procedure are i n the results section. NOTICE OF PRIVACY Routine 12/26/2020 9:44 PM PRACTICES SODIUM METHYLATE OPERATOR CONSENT/REFUSAL FOR Routine 12/26/2020 9:41 PM DIAGNOSIS AND SODIUM METHYLATE OPERATOR TREATMENT CONSENT/REFUSAL FOR Routine 12/26/2020 9:41 PM DIAGNOSIS AND SODIUM METHYLATE OPERATOR TREATMENT CONSENT/REFUSAL FOR Routine 12/26/2020 9:41 PM DIAGNOSIS AND SODIUM METHYLATE OPERATOR TREATMENT documented in this encounter Results URINALYSIS (12/26/2020 10:02 PM SODIUM METHYLATE OPERATOR) Pathologist Sig nature APPEARANCE Clear Clear [facility] COLOR Straw (A) Yellow [facility] PH 6.0 4.8 - 8.0 [facility] SP GRAVITY 1.026 1.003 - 1.030 [facility] [...] HPF [facility] WBC/HPF 1 0 - 5 HPF [facility] BACTERIA Few (A) Negative [facility] SQ EPITH 4 HPF [facility] YEAST BUD 1 <=1 HPF [facility] Specimen Urine - URINE, CLEAN CATCH Performing Organization Address City/State/Zipcode Phone Number [facility] CLIA: [id number] [place] [address] documented in this encounter Visit Diagnoses Diagnosis Wound check, abscess - Primary Encounter for other specified aftercare Dysuria documented in this encounter
[2020-12-31 22:16] LABS: Absolute Lymphocytes (CBC) 3.2 K/uL (0.7-4.9); Basophils % 0.8 % (0-1.3); Hematocrit 37.4 % (36.0-45.0); Lymphocytes % 29.3 % (15.3-44.8); RBC Red Blood Cell Count 4.32 M/uL (3.86-4.86)
[2020-12-31 22:17] LABS: Protime INR 1.01
[2020-12-31] MEDS ORDERED: ACETAMINOPHEN 500 MG TAB ONE (22:20)
[2020-12-31] MEDS ORDERED: NA CHLORIDE 0.9% 1,000 ML ONE (22:20)
[2020-12-31] MEDS ORDERED: ONDANSETRON 4 MG/2 ML VIAL ONE (22:20)
[2020-12-31 22:33] LABS: ALT/SGPT 8 U/L (12-78); AST/SGOT 10 U/L (15-37); Albumin 3.4 g/dL (3.4-5.0); Alkaline Phosphatase 93 U/L (45-117); BUN Blood Urea Nitrogen 12 mg/dL (7-18); Bicarbonate 26 mmol/L (21-32); Bilirubin Direct < 0.1 mg/dL (0-0.2); Bilirubin Total 0.3 mg/dL (0.2-1.0); Glucose Level 271 mg/dL (74-106); Magnesium 1.5 mg/dL (1.8-2.4); NT PRO-BNP 57 pg/mL (<125); Protein, Total 7.3 g/dL (6.4-8.2); Sodium Level 138 mmol/L (136-145); Troponin (Emerg Dept Use Only) < 0.02 ng/mL (0.0-0.045)
[2020-12-31 23:19] LABS: Urine Blood NEGATIVE (NEG); Urine Glucose 2+ (NEG); Urine Protein NEGATIVE (NEG); Urine Specific Gravity 1.025 (1.005-1.030)
[2020-12-31 23:50] LABS: SARS-COV-2 RT PCR NEGATIVE (NEGATIVE)
[2020-12-31 23:56] LABS: Barbiturates NEGATIVE (NEGATIVE); Benzodiazepines POSITIVE (NEGATIVE); Cocaine NEGATIVE (NEGATIVE); METHAMPHETAM NEGATIVE (NEGATIVE); Methadone NEGATIVE (NEGATIVE); Opiates NEGATIVE (NEGATIVE); Phencyclidine NEGATIVE (NEGATIVE); THC Cannibis NEGATIVE (NEGATIVE)
--- NOTE | 2021-01-01 00:59 | EDPHYS ---
Physician Documentation [facility] Name: Ara Mercado Age: 35 yrs Sex: Female : 1985 Arrival Date: 12/31/2020 Time: 21:21 Bed 26 Private MD: ED Physician Papito Castro HPI: 12/31 22:06 This 35 yrs old Female presents to ER via Ambulatory with complaints of Chest mh7 Pain. 22:07 The patient or guardian reports chest pain that is located primarily in the anterior mh7 chest wall, right. The pain does not radiate. Associated signs and symptoms: Pertinent positives: cough, nausea, sore throat, generalized fatigue, Pertinent negatives: abdominal pain, diaphoresis, dizziness, headache, lower extremity pain, lower extremity swelling, lightheadedness, near syncope, palpitations, recent travel, shortness of breath, syncope, vomiting. The chest pain is described as aching. Duration: The patient or guardian reports a single episode, that is still ongoing, Started 3 days ago. Modifying factors: The symptoms are alleviated by nothing. Has not tried taking any medication. the symptoms are aggravated by movement, palpation of area. Severity of pain: At its worst the pain was moderate 3 day(s) ago, in the emergency department the pain is unchanged. Historical: - Allergies: 21:25 Bactrim; ea 21:25 Flagyl; ea 21:25 Morphine; ea 21:25 steroids; ea 21:25 Toradol; ea 21:25 tramadol; ea - Home Meds: 21:25 metformin 500 mg Oral tab 1 tab three times a day [Active]; ea - PMHx: 21:25 Diabetes - NIDDM; ea - Immunization history:: Adult Immunizations unknown. - Social history:: Smoking status: Patient denies any tobacco usage or history of. ROS: 22:07 Constitutional: Negative for fever, chills, and weight loss, Eyes: Negative for injury, mh7 pain, redness, and discharge, Neck: Negative for injury, pain, and swelling, Respiratory: Negative for shortness of breath, cough, wheezing, and pleuritic chest pain, Back: Negative for injury and pain, : Negative for injury, bleeding, discharge, and swelling, MS/Extremity: Negative for injury and deformity, Skin: Negative for injury, rash, and discoloration, Neuro: Negative for headache, weakness, numbness, tingling, and seizure, Psych: Negative for depression, anxiety, suicide ideation, homicidal ideation, and hallucinations, Allergy/Immunology: Negative for hives, rash, and allergies, Endocrine: Negative for neck swelling, polydipsia, polyuria, polyphagia, and marked weight changes, Hematologic/Lymphatic: Negative for swollen nodes, abnormal bleeding, and unusual bruising. Exam: 22:07 Constitutional: This is a well developed, well nourished patient who is awake, alert, mh7 and in no acute distress. Head/Face: Normocephalic, atraumatic. Eyes: Pupils equal round and reactive to light, extra-ocular motions intact. Lids and lashes normal. Conjunctiva and sclera are non-icteric and not injected. Cornea within normal limits. Periorbital areas with no swelling, redness, or edema. ENT: Nares patent. No nasal discharge, no septal abnormalities noted. Tympanic membranes are normal and external auditory canals are clear. Oropharynx with no redness, swelling, or masses, exudates, or evidence of obstruction, uvula midline. Mucous membranes moist. Neck: Trachea midline, no thyromegaly or masses palpated, and no cervical lymphadenopathy. Supple, full range of motion without nuchal rigidity, or vertebral point tenderness. No Meningismus. 22:07 Cardiovascular: Regular rate and rhythm with a normal S1 and S2. No gallops, murmurs, or rubs. Normal PMI, no JVD. No pulse deficits. Respiratory: Lungs have equal breath sounds bilaterally, clear to auscultation and percussion. No rales, rhonchi or wheezes noted. No increased work of breathing, no retractions or nasal flaring. Abdomen/GI: Soft, non-tender, with normal bowel sounds. No distension or tympany. No guarding or rebound. No evidence of tenderness throughout. Back: No spinal tenderness. No costovertebral tenderness. Full range of motion. Skin: Warm, dry with normal turgor. Normal color with no rashes, no lesions, and no evidence of cellulitis. MS/ Extremity: Pulses equal, no cyanosis. Neurovascular intact. Full, normal range of motion. Neuro: Awake and alert, GCS 15, oriented to person, place, time, and situation. Cranial nerves II-XII grossly intact. Motor strength 5/5 in all extremities. Sensory grossly intact. Cerebellar exam normal. Normal gait. Psych: Awake, alert, with orientation to person, place and time. Behavior, mood, and affect are within normal limits. 22:07 Chest/axilla: Inspection: normal, Palpation: tenderness, that is moderate, of the anterior aspect of right upper chest, that totally reproduces the patient's complaints, Axilla: are normal, Lymph nodes: lymphadenopathy is not appreciated. Vital Signs: 21:22 BP 117 / 80; Pulse 90; Resp 18; Temp 98.6; Pulse Ox 100% ; Weight 68.04 kg; Height 5 ea ft. 2 in. (157.48 cm); 01/01 00:24 BP 120 / 81; Pulse 70; Resp 18; Pulse Ox 98% ; ea 01:04 BP 120 / 62; Pulse 78; Resp 18; Pulse Ox 99% ; ea 12/31 21:22 Body Mass Index 27.44 (68.04 kg, 157.48 cm) ea MDM: 00:56 Differential diagnosis: acute myocardial infarction, acute pericarditis, anxiety, chest mh7 wall pain, costochondritis, myocarditis, pneumonia, pulmonary embolus. HEART Score: History: Slightly Suspicious (0), ECG: Normal (0), Age: < or = 45 years (0), Risk Factors: 1 or 2 risk factors (1), [DM] Troponin: < or = 1 x Normal Limit (0), Total Score = 1. Data reviewed: vital signs, nurses notes, old medical records, lab test result(s), cardiac enzymes, CBC, electrolytes, Flu: negative urinalysis, urine drug screen, EKG, radiologic studies, plain films. Data interpreted: Pulse oximetry: on room air is 98 %. Interpretation: normal. Counseling: I had a detailed discussion with the patient and/or guardian regarding: the historical points, exam findings, and any diagnostic results supporting the discharge/admit diagnosis, lab results, radiology results, the need for outpatient follow up, to return to the emergency department if symptoms worsen or persist or if there are any questions or concerns that arise at home. Response to treatment: the patient's symptoms have resolved after treatment, the patient's blood pressure is in an acceptable range, mental status has returned to baseline, the patient no longer shows bradycardia, the patient is not short of breath, the patient is not tachycardic, the patient's pain is gone, the patient's temperature has normalized. 00:59 Patient medically screened. [facility] 12/31 21:53 Order name: Basic Metabolic Panel [facility] 12/31 21:53 Order name: CBC with Diff [facility] 12/31 21:53 Order name: LFT's [facility] 12/31 21:53 Order name: Magnesium [facility] 12/31 21:53 Order name: NT PRO-BNP; Complete Time: 22:54 [facility] 12/31 21:53 Order name: PT-INR; Complete Time: 23:44 [facility] 12/31 21:53 Order name: Troponin (emerg Dept Use Only); Complete Time: 22:54 [facility] 12/31 21:53 Order name: Rapid Strep; Complete Time: 23:44 [facility] 12/31 21:54 Order name: Basic Metabolic Panel; Complete Time: 22:54 EDIN 12/31 21:54 Order name: CBC with Automated Diff; Complete Time: 22:54 EDIN 12/31 21:54 Order name: Liver (Hepatic) Function; Complete Time: 22:54 EDMS 12/31 21:54 Order name: Magnesium; Complete Time: 22:54 EDMS 12/31 22:09 Order name: COVID-19 : Document "Date of Symptom Onset" if Symptomatic. ds4 12/31 21:48 Order name: EKG - Nurse/Tech; Complete Time: 21:48 mg2 12/31 21:53 Order name: XRAY Chest (1 view) [facility] 12/31 21:53 Order name: EKG; Complete Time: 21:55 [facility] 12/31 22:17 Order name: Urine --Ancillary (enter results); Complete Time: 23:44 tt3 12/31 22:17 Order name: Urine Dipstick--Ancillary (enter results); Complete Time: 23:44 tt3 12/31 23:00 Order name: UDS; Complete Time: 00:06 [facility] 12/31 23:15 Order name: D-Dimer [facility] 12/31 23:17 Order name: D-Dimer; Complete Time: 23:44 EDMS 12/31 23:27 Order name: Throat Culture [facility] 12/31 23:48 Order name: Troponin (emerg Dept Use Only); Complete Time: 00:43 ea 12/31 23:51 Order name: COVID-19/FLU A+B; Complete Time: 00:06 EDIN 12/31 21:53 Order name: Cardiac monitoring; Complete Time: 22:00 [facility] 12/31 21:53 Order name: IV Saline Lock; Complete Time: 22:00 [facility] 12/31 21:53 Order name: Labs collected and sent; Complete Time: 22:00 [facility] 12/31 21:53 Order name: O2 Per Protocol; Complete Time: 22:00 [facility] 12/31 21:53 Order name: O2 Sat Monitoring; Complete Time: 22:00 [facility] 12/31 21:53 Order name: Urine Dipstick-Ancillary (obtain specimen); Complete Time: 22:14 [facility] 12/31 21:53 Order name: Urine Test (obtain specimen); Complete Time: 22:14 [facility] Administered Medications: 12/31 22:13 Drug: NS 0.9% 1000 ml Route: IV; Rate: 1000 ml; Site: left forearm; [facility] [place] 01/01 00:50 Follow up: Response: No adverse reaction; IV Status: Completed infusion 12/31 22:13 Drug: Zofran (Ondansetron) 4 mg Route: IVP; Site: left forearm; [facility] [place] 01/01 00:00 Follow up: Response: No adverse reaction 12/31 22:13 Drug: Tylenol 1000 mg Route: PO; [facility] 01/01 00:00 Follow up: Response: No adverse reaction Disposition: 01/01/21 00:59 Discharged to Home. Impression: Chest pain, unspecified. - Condition is Stable. - Discharge Instructions: Chest Wall Pain, Nonspecific Chest Pain, [id number]. - Prescriptions for Robaxin 500 mg Oral Tablet - take 1 tablet by ORAL route every 6 hours As needed; 20 tablet. - Medication Reconciliation Form, Thank You Letter, Antibiotic Education, Prescription Opioid Use form. - Follow up: Private Physician; When: 1 - 2 days; Reason: Worsening of condition, Recheck today's complaints, Continuance of care, Re-evaluation by your physician. - Problem is new. - Symptoms have improved. Signatures: Dispatcher [facility] Jose Stringer, DAVIDE-C [employer] Kathy Perkins RN RN ea Gardose, Michele, RN RN [facility] [place] Papito Castro MD MD mh7 Corrections: (The following items were deleted from the chart) 12/31 23:04 22:10 CORONAVIRUS ordered. [facility] EDIN 23:05 21:55 Influenza Screen (A \\T\\ B)+[id number].LAB.BRZ ordered. [facility] EDIN 23:17 23:16 D-Dimer ordered. [facility] 01/01 01:04 00:59 01/01/2021 00:59 Discharged to Home. Impression: Chest pain, unspecified. ea Condition is Stable. Forms are Medication Reconciliation Form, Thank You Letter, Antibiotic Education, Prescription Opioid Use. Follow up: Private Physician; When: 1 - 2 days; Reason: Worsening of condition, Recheck today's complaints, Continuance of care, Re-evaluation by your physician. Problem is new. Symptoms have improved. mh7
--- NOTE | 2021-01-01 00:59 | ER ---
Nurse's Notes [facility] Name: Ara Mercado Age: 35 yrs Sex: Female : 1985 Arrival Date: 12/31/2020 Time: 21:21 Bed 26 Private MD: Diagnosis: Chest pain, unspecified Presentation: 12/31 21:22 Chief complaint: Patient states: Pt reports she started having chest pain three hours ea ago, states she is achy and is also nauseous. Coronavirus screen: At this time, the client does not indicate any symptoms associated with coronavirus-19. Ebola Screen: No symptoms or risks identified at this time. Initial Sepsis Screen: Does the patient meet any 2 criteria? No. Patient's initial sepsis screen is negative. Does the patient have a suspected source of infection? No. Patient's initial sepsis screen is negative. Risk Assessment: Do you want to hurt yourself or someone else? Patient reports no desire to harm self or others. Onset of symptoms was December 31, 2020. 21:22 Method Of Arrival: Ambulatory ea 21:22 Acuity: CHARISSA 3 ea Historical: - Allergies: 21:25 Bactrim; ea 21:25 Flagyl; ea 21:25 Morphine; ea 21:25 steroids; ea 21:25 Toradol; ea 21:25 tramadol; ea - Home Meds: 21:25 metformin 500 mg Oral tab 1 tab three times a day [Active]; ea - PMHx: 21:25 Diabetes - NIDDM; ea - Immunization history:: Adult Immunizations unknown. - Social history:: Smoking status: Patient denies any tobacco usage or history of. Screenin:25 Abuse screen: Denies threats or abuse. Nutritional screening: No deficits noted. ea Tuberculosis screening: No symptoms or risk factors identified. Fall Risk None identified. Assessment: 21:47 General: Appears in no apparent distress. comfortable, Behavior is calm, cooperative. mg2 Pain: Complains of pain in chest Pain does not radiate. Pain began gradually, 3 hours ago. Neuro: Level of Consciousness is awake, alert, obeys commands, Oriented to person, place, time, situation. Cardiovascular: Capillary refill < 3 seconds Patient's skin is warm and dry. Respiratory: Airway is patent Respiratory effort is even, unlabored, Respiratory pattern is regular, symmetrical. GI: No signs and/or symptoms were reported involving the gastrointestinal system. : No signs and/or symptoms were reported regarding the genitourinary system. EENT: No signs and/or symptoms were reported regarding the EENT system. Derm: Skin is intact, is healthy with good turgor, Skin is pink, warm \T\ dry. normal. Musculoskeletal: Circulation, motion, and sensation intact. Capillary refill < 3 seconds. 23:43 Reassessment: Patient and/or family updated on plan of care and expected duration. Pain ea level reassessed. Patient is alert, oriented x 3, equal unlabored respirations, skin warm/dry/pink. 01/01 00:23 Reassessment: Patient and/or family updated on plan of care and expected duration. Pain ea level reassessed. Patient is alert, oriented x 3, equal unlabored respirations, skin warm/dry/pink. 01:03 Reassessment: Patient and/or family updated on plan of care and expected duration. Pain ea level reassessed. Patient is alert, oriented x 3, equal unlabored respirations, skin warm/dry/pink. Discharge instruction given to patient verbalized the understanding of instruction. Pt left ED ambulatory tolerating well. Vital Signs: 12/31 21:22 BP 117 / 80; Pulse 90; Resp 18; Temp 98.6; Pulse Ox 100% ; Weight 68.04 kg; Height 5 ea ft. 2 in. (157.48 cm); 01/01 00:24 BP 120 / 81; Pulse 70; Resp 18; Pulse Ox 98% ; ea 01:04 BP 120 / 62; Pulse 78; Resp 18; Pulse Ox 99% ; ea 12/31 21:22 Body Mass Index 27.44 (68.04 kg, 157.48 cm) ea ED Course: 12/31 21:21 Patient arrived in ED. bp1 21:24 Papito Castro MD is Attending Physician. mh7 21:25 Triage completed. ea 21:25 Arm band placed on right wrist. Patient placed in an exam room, on a stretcher, on ea pulse oximetry. 21:26 Patient maintains SpO2 saturation greater than 95% on room air. ea 21:48 Patient has correct armband on for positive identification. equipment monitor phototypesetting on. Pulse mg2 ox on. NIBP on. Door closed. Warm blanket given. 21:48 EKG done, by ED staff, reviewed by Papito Castro MD. mg2 22:20 COVID swab sent to lab. Flu and/or RSV swab sent to lab. mg2 22:58 XRAY Chest (1 view) In Process Unspecified. EDMS 23:17 Kathy Perkins, RN is Primary Nurse. ea 01/01 01:03 No provider procedures requiring assistance completed. IV discontinued, intact, ea bleeding controlled, No redness/swelling at site. Pressure dressing applied. Administered Medications: 12/31 22:13 Drug: NS 0.9% 1000 ml Route: IV; Rate: 1000 ml; Site: left forearm; mg2 01/01 00:50 Follow up: Response: No adverse reaction; IV Status: Completed infusion ea 12/31 21:13 Drug: Zofran (Ondansetron) 4 mg Route: IVP; Site: left forearm; [facility] [place] 01/01 00:00 Follow up: Response: No adverse reaction ea 12/31 21:13 Drug: Tylenol 1000 mg Route: PO; [facility] [place] 01/01 00:00 Follow up: Response: No adverse reaction ea Outcome: 00:59 Discharge ordered by . mh7 01:04 Discharged to home ambulatory, with family. ea 01:04 Condition: stable 01:04 Discharge instructions given to patient, Instructed on discharge instructions, follow up and referral plans. medication usage, Demonstrated understanding of instructions, follow-up care, medications, Prescriptions given X 1. 01:04 Patient left the ED. ea Signatures: Dispatcher [employer] EDMS Kathy Perkins RN RN ea Gardose, Michele, RN RN [facility] [place] Vanessa Cantu Maurice, MD MD mh7
[2021-01-01 01:24] VITALS: TEMP 98.6
[2021-01-01 01:27] VITALS: BP 120/62; O2SAT 99
--- NOTE | 2021-01-01 08:25 | RAD REPORT ---
EXAM DESCRIPTION: RAD - Chest Single View - 12/31/2020 10:58 pm CLINICAL HISTORY: CHEST PAIN Chest pain. COMPARISON: Chest Single View dated 11/11/2020; Chest Single View dated 10/31/2020; Chest Single View dated 10/03/2020; Chest Single View dated 05/23/2020 FINDINGS: Portable technique limits examination quality. The lungs are grossly clear. The heart is normal in size. No displaced fractures. IMPRESSION: No acute intrathoracic process suspected.
== END 2021-01-01 01:04 | disposition home or self-care (01) ==
LOC: ER 21:00
DX: R07.9 Chest pain, unspecified (principal); Z20.822 Contact with and (suspected) exposure to COVID-19; E11.9 Type 2 diabetes mellitus without complications; Z79.84 Long term (current) use of oral hypoglycemic drugs
CPT/HCPCS: 0240U; 36415; 71045; 80048; 80076; 80307; 81003; 81025; 83735; 83880; 84484; 85025; 85379; 85610; 87070; 87081; 93005; 96361; 96374; 99285; J2405; J7030

== ENCOUNTER 2021-01-04 19:46 | Emergency (ER) | payer SELFPAY ==
--- NOTE | 2021-01-04 20:42 | ER ---
Nurse's Notes [facility] Name: Ara Mercado Age: 35 yrs Sex: Female : 1985 Arrival Date: 01/04/2021 Time: 19:47 Bed 25 Private MD: Diagnosis: Dental caries;Other specified disorders of teeth and supporting structures Presentation: 01/04 20:20 Chief complaint: Patient states: lower jaw pain that started this morning, denies fever em or any other symptoms. Coronavirus screen: Client denies travel out of the [place] in the last 14 days. Ebola Screen: Patient negative for fever greater than or equal to 101.5 degrees Fahrenheit, and additional compatible Ebola Virus Disease symptoms Patient denies exposure to infectious person. Patient denies travel to an Ebola-affected area in the 21 days before illness onset. No symptoms or risks identified at this time. Initial Sepsis Screen: Does the patient meet any 2 criteria? HR > 90 bpm. No. Patient's initial sepsis screen is negative. Does the patient have a suspected source of infection? No. Patient's initial sepsis screen is negative. Risk Assessment: Do you want to hurt yourself or someone else? Patient reports no desire to harm self or others. Onset of symptoms was January 04, 2021. 20:20 Method Of Arrival: Ambulatory em 20:20 Acuity: CHARISSA 4 em Historical: - Allergies: 20:21 Bactrim; em 20:21 Flagyl; em 20:21 Morphine; em 20:21 steroids; em 20:21 Toradol; em 20:21 tramadol; em - PMHx: 20:21 Diabetes - NIDDM; gallstones; em - PSHx: 20:21 None; em - Immunization history:: Adult Immunizations not up to date. - Social history:: Smoking status: Patient reports the use of cigarette tobacco products, smokes one-half pack cigarettes per day. Screenin:39 Abuse screen: Denies threats or abuse. Denies injuries from another. Nutritional zb screening: No deficits noted. Tuberculosis screening: No symptoms or risk factors identified. Fall Risk None identified. Assessment: 20:35 General: Appears in no apparent distress. uncomfortable, Behavior is calm, cooperative, zb appropriate for age. Pain: Complains of pain in chin, right jaw and left jaw Pain currently is 10 out of 10 on a pain scale. Quality of pain is described as aching, tender, throbbing, Pain began 1 day ago. Is continuous, Aggravated by eating, drinking, Also complains of decreased appetite, nausea, Current management is with Tylenol, Advil. Neuro: Level of Consciousness is awake, alert, obeys commands, Oriented to person, place, time, situation. Cardiovascular: Patient's skin is warm and dry. Respiratory: Airway is patent Respiratory effort is even, unlabored, Respiratory pattern is regular, symmetrical. GI: Reports nausea, Patient currently denies abdominal pain. : No signs and/or symptoms were reported regarding the genitourinary system. EENT: Oral mucosa is moist. Poor dentition noted. Derm: Skin is intact, Skin is dry, Skin is normal. Derm: Musculoskeletal: Range of motion:. 20:52 Reassessment: d/c awaiting IM completion wait time. zb Vital Signs: 20:20 BP 145 / 86; Pulse 92; Resp 18; Temp 97.8; Pulse Ox 99% on R/A; Weight 69.85 kg; Height em 5 ft. 2 in. (157.48 cm); Pain 10/10; 20:56 BP 147 / 89; Pulse 95; Resp 16; Pulse Ox 97% on R/A; zb 20:20 Body Mass Index 28.17 (69.85 kg, 157.48 cm) em ED Course: 19:47 Patient arrived in ED. am4 20:17 Rashad Sandoval PA is PHCP. cp 20:17 Rashad Melgoza MD is Attending Physician. cp 20:21 Triage completed. em 20:21 Arm band placed on. em 20:35 Roxie Ocasio RN is Primary Nurse. zb 20:39 Patient has correct armband on for positive identification. Pulse ox on. NIBP on. Door zb closed. Noise minimized. 21:08 No provider procedures requiring assistance completed. Patient did not have IV access zb during this emergency room visit. Administered Medications: 20:42 Drug: Clindamycin 600 mg Route: IM; Site: left deltoid; zb 21:08 Follow up: Response: No adverse reaction zb 20:49 Drug: Hydrocodone-Acetaminophen (7.5 mg-325 mg) 1 tabs Route: PO; zb 21:08 Follow up: Response: No adverse reaction; Pain is decreased zb Outcome: 20:41 Discharge ordered by . jean marie 21:09 Discharged to home ambulatory. zb 21: Condition: stable 21:09 Discharge instructions given to patient, Instructed on discharge instructions, follow up and referral plans. medication usage, Demonstrated understanding of instructions, follow-up care, medications, Prescriptions given X 3. 21:09 Patient left the ED. zb Signatures: Luis oDnis RN RN Rashad Scales PA PA cp Brown, Zipporah, RN RN zb Martinez, Ashley formerly [facility]
--- NOTE | 2021-01-04 20:42 | EDPHYS ---
Physician Documentation [facility] Name: Ara Mercado Age: 35 yrs Sex: Female : 1985 Arrival Date: 01/04/2021 Time: 19:47 Bed 25 Private MD: ED Physician Rashad Melgoza HPI: 01/04 20:35 This 35 yrs old Female presents to ER via Ambulatory with complaints of Jaw cp Pain. 20:35 The patient presents with pain. The problem is located in the lower jaw. cp 20:35 Onset: The symptoms/episode began/occurred this morning. Duration: The symptoms are cp continuous, and are steadily getting worse. Associated signs and symptoms: Pertinent negatives: chills, dysphagia, fever, inability to eat, swelling, facial, vomiting. Severity of symptoms: in the emergency department the symptoms are unchanged, despite home interventions. Historical: - Allergies: 20:21 Bactrim; em 20:21 Flagyl; em 20:21 Morphine; em 20:21 steroids; em 20:21 Toradol; em 20:21 tramadol; em - PMHx: 20:21 Diabetes - NIDDM; gallstones; em - PSHx: 20:21 None; em - Immunization history:: Adult Immunizations not up to date. - Social history:: Smoking status: Patient reports the use of cigarette tobacco products, smokes one-half pack cigarettes per day. ROS: 20:35 Constitutional: Negative for body aches, chills, fever, poor PO intake. cp 20:35 Eyes: Negative for injury, pain, redness, and discharge. cp 20:35 ENT: Positive for lower jaw pain, Negative for drainage from ear(s), ear pain, sore throat, difficulty swallowing, difficulty handling secretions. 20:35 Cardiovascular: Negative for chest pain, palpitations. 20:35 Respiratory: Negative for cough, shortness of breath, wheezing. 20:35 Abdomen/GI: Negative for nausea, vomiting, and diarrhea. 20:35 Skin: Negative for rash. 20:35 Neuro: Negative for altered mental status, headache, weakness. 20:35 All other systems are negative. Exam: 20:38 Constitutional: The patient appears in no acute distress, alert, awake, non-toxic, well cp developed, well nourished. 20:38 Head/Face: Normocephalic, atraumatic. cp 20:38 Eyes: Periorbital structures: appear normal, Conjunctiva: normal, no exudate, no injection. 20:38 ENT: External ear(s): are unremarkable, Ear canal(s): are normal, clear, TM's: cp dullness, bilaterally, Nose: is normal, Mouth: Lips: moist, Oral mucosa: moist, abscess, is not appreciated, no trismus appreciated, no swelling or tenderness to palpation noted submental area, Posterior pharynx: Airway: no evidence of obstruction, patent, Dental exam: abscess, is not appreciated, dental caries, that is severe, specifically in the diffusely lower jaw, gum swelling, that is mild, diffusely, specifically in the lower jaw, pain, that is moderate, specifically in the multiple anterior teeth of lower jaw, Voice: is normal. 20:38 Neck: ROM/movement: is normal, is supple, without pain, no range of motions cp limitations, no nuchal rigidity, Lymph nodes: no appreciated lymphadenopathy. 20:38 Chest/axilla: Inspection: normal, Palpation: is normal, no crepitus, no tenderness. 20:38 Cardiovascular: Rate: normal, Rhythm: regular. 20:38 Respiratory: the patient does not display signs of respiratory distress, Respirations: normal, no use of accessory muscles, no retractions, labored breathing, is not present, Breath sounds: are clear throughout, no decreased breath sounds. 20:38 Abdomen/GI: Inspection: abdomen appears normal, Palpation: abdomen is soft and non-tender, in all quadrants. 20:38 Skin: no rash present. 20:38 Neuro: Orientation: to person, place \T\ time. Mentation: is normal. Vital Signs: 20:20 BP 145 / 86; Pulse 92; Resp 18; Temp 97.8; Pulse Ox 99% on R/A; Weight 69.85 kg; Height em 5 ft. 2 in. (157.48 cm); Pain 10/10; 20:56 BP 147 / 89; Pulse 95; Resp 16; Pulse Ox 97% on R/A; zb 20:20 Body Mass Index 28.17 (69.85 kg, 157.48 cm) em MDM: 20:18 Patient medically screened. bobbi 20:39 ED course: Review of [place] prescription monitor website does not display any results cp for patient. 20:40 Differential diagnosis: dental caries, gingivitis, dental abscess, pericoronitis. cp 20:40 Data reviewed: vital signs, nurses notes, and as a result, I will discharge patient. cp Counseling: I had a detailed discussion with the patient and/or guardian regarding: the historical points, exam findings, and any diagnostic results supporting the discharge/admit diagnosis, the need for outpatient follow up, for definitive care, maxillary and facial surgery, to return to the emergency department if symptoms worsen or persist or if there are any questions or concerns that arise at home. Response to treatment: the patient's symptoms have mildly improved after treatment, and as a result, I will discharge patient. ED course: VSS. Patient appears non-toxic and no signs respiratory compromise. Will discharge to home for continued monitoring. Administered Medications: 20:42 Drug: Clindamycin 600 mg Route: IM; Site: left deltoid; zb 21:08 Follow up: Response: No adverse reaction zb 20:49 Drug: Hydrocodone-Acetaminophen (7.5 mg-325 mg) 1 tabs Route: PO; zb 21:08 Follow up: Response: No adverse reaction; Pain is decreased zb Disposition: 01/05 14:39 Co-signature as Attending Physician, Rashad Melgoza MD I agree with the assessment and bobbi plan of care. Disposition: 01/04/21 20:41 Discharged to Home. Impression: Dental caries, Other specified disorders of teeth and supporting structures. - Condition is Stable. - Discharge Instructions: Dental Caries, Adult, Dental Pain. - Prescriptions for Peridex 0.12 % Mucous Membrane mouthwash - place 15 milliliter by MUCOUS MEMBRANE route 2 times per day (after meals), swish in mouth for 30 seconds then spit out; 1 bottle. Clindamycin HCl 300 mg Oral Capsule - take 1 capsule by ORAL route every 6 hours for 10 days; 40 capsule. Tylenol- Codeine #3 300-30 mg Oral Tablet - take 2 tablets by ORAL route every 8-12 hours As needed; 12 tablet. - Medication Reconciliation Form, Thank You Letter, Antibiotic Education, Prescription Opioid Use form. - Follow up: Private Physician; When: 1 - 2 days; Reason: Recheck today's complaints. - Problem is new. - Symptoms have improved. Signatures: Rashad Melgoza MD MD cha Munoz, Edgar, RN Rashad Peña PA PA cp Roxie Ocasio RN RN zb Corrections: (The following items were deleted from the chart) 01/04 21:09 20:41 01/04/2021 20:41 Discharged to Home. Impression: Dental caries; Other specified zb disorders of teeth and supporting structures. Condition is Stable. Forms are Medication Reconciliation Form, Thank You Letter, Antibiotic Education, Prescription Opioid Use. Follow up: Private Physician; When: 1 - 2 days; Reason: Recheck today's complaints. Problem is new. Symptoms have improved. cp 01/05 15:01 01/04 20:38 ENT: External ear(s): are unremarkable, Ear canal(s): are normal, clear, cp TM's: dullness, bilaterally, Nose: is normal, Mouth: Lips: moist, Oral mucosa: moist, abscess, is not appreciated, no trismus appreciated, no swelling or tenderness to palpation noted submental area, Posterior pharynx: Airway: no evidence of obstruction, patent, Dental exam: dental caries, that is severe, specifically in the diffusely lower jaw, pain, that is moderate, specifically in the multiple anterior teeth of lower jaw, cp
[2021-01-04 21:13] VITALS: TEMP 97.8
[2021-01-04 21:14] VITALS: BP 147/89; O2SAT 97
== END 2021-01-04 21:09 | disposition home or self-care (01) ==
LOC: ER 19:46
DX: K02.9 Dental caries, unspecified (principal); K08.89 Other specified disorders of teeth and supporting structures; Z88.1 Allergy status to other antibiotic agents; Z88.6 Allergy status to analgesic agent; Z88.8 Allergy status to other drugs, medicaments and biological substances; E11.9 Type 2 diabetes mellitus without complications; F17.210 Nicotine dependence, cigarettes, uncomplicated
CPT/HCPCS: 96372; 99283

== ENCOUNTER 2021-01-21 20:54 | Emergency (ER) | payer SELFPAY ==
[2021-01-21 22:46] LABS: Absolute Lymphocytes (CBC) 3.3 K/uL (0.7-4.9); Basophils % 0.7 % (0-1.3); Hematocrit 38.6 % (36.0-45.0); Lymphocytes % 27.8 % (15.3-44.8); MPV 8.2 fL (7.6-11.3); RBC Red Blood Cell Count 4.44 M/uL (3.86-4.86)
[2021-01-21 22:48] LABS: Protime INR 0.99
[2021-01-21 23:00] LABS: ALT/SGPT 13 U/L (12-78); AST/SGOT 15 U/L (15-37); Albumin 3.4 g/dL (3.4-5.0); Alkaline Phosphatase 108 U/L (45-117); BUN Blood Urea Nitrogen 8 mg/dL (7-18); Bicarbonate 26 mmol/L (21-32); Bilirubin Direct < 0.1 mg/dL (0-0.2); Bilirubin Total 0.3 mg/dL (0.2-1.0); Glucose Level 309 mg/dL (74-106); Lipase 115 U/L (73-393); Magnesium 1.6 mg/dL (1.8-2.4); NT PRO-BNP 27 pg/mL (<125); Potassium 3.8 mmol/L (3.5-5.1); Protein, Total 7.4 g/dL (6.4-8.2); Sodium Level 138 mmol/L (136-145); Troponin (Emerg Dept Use Only) < 0.02 ng/mL (0.0-0.045)
[2021-01-21] MEDS ORDERED: FENTANYL CITR 100 MCG/2 ML ONE (23:00)
[2021-01-21] MEDS ORDERED: ONDANSETRON 4 MG/2 ML VIAL ONE (23:02)
[2021-01-21 23:38] LABS: Urine Bacteria <20 /HPF (<20); Urine RBC NONE SEEN /HPF (NONE SEEN); Urine Urothelial Cells <5 /HPF (NONE SEEN)
[2021-01-22] MEDS ORDERED: FENTANYL CITR 100 MCG/2 ML ONE (00:09)
[2021-01-22] MEDS ORDERED: NA CHLORIDE 0.9% 1,000 ML ONE (00:43)
[2021-01-22] MEDS ORDERED: HYDROCODONE/APAP 7.5/325 MG TAB ONE (02:50)
[2021-01-22] MEDS ORDERED: CIPROFLOXACIN HCL 500 MG TAB ONE (03:22)
[2021-01-22] MEDS ORDERED: MAGNESIUM OXIDE 400 MG TAB ONE (03:22)
[2021-01-22] MEDS ORDERED: ONDANSETRON 4 MG/2 ML VIAL ONE (04:01)
--- NOTE | 2021-01-22 04:42 | EDPHYS ---
Physician Documentation [facility] Name: Ara Mercado Age: 35 yrs Sex: Female : 1985 Arrival Date: 01/21/2021 Time: 20:56 Bed 14 Private MD: ED Physician Papito Castro HPI: 01/21 22:00 This 35 yrs old Female presents to ER via Ambulatory with complaints of Chest cp Pain. 22:00 The patient or guardian reports chest pain that is located primarily in the substernal cp area. 22:00 The pain does not radiate. Duration: The patient or guardian reports a single episode, cp that is still ongoing, onset 1900 today. 22:00 The patient complains of pain in the right flank. cp 22:00 The pain radiates to the right side of abdomen. Onset: The symptoms/episode cp began/occurred today, at 15:00. Associated signs and symptoms: Pertinent positives: nausea, Pertinent negatives: diarrhea, dysuria, fever, hematuria, pain radiating to the lower extremities, vomiting. 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 - Social history:: Smoking status: Patient reports the use of cigarette tobacco products, smokes one-half pack cigarettes per day, Patient/guardian denies using alcohol, street drugs, IV drugs. ROS: 22:05 Constitutional: Negative for body aches, chills, fever, poor PO intake. cp 22:05 Eyes: Negative for injury, pain, redness, and discharge. cp 22:05 ENT: Negative for ear pain, sore throat, difficulty swallowing, difficulty handling secretions. 22:05 Cardiovascular: Positive for chest pain, Negative for edema, palpitations. 22:05 Respiratory: Negative for cough, shortness of breath, wheezing. 22:05 Abdomen/GI: Positive for abdominal pain. 22:05 Back: Positive for flank pain, on the right. 22:05 : Negative for urinary symptoms. 22:05 Neuro: Negative for altered mental status, headache, syncope, weakness. 22:05 All other systems are negative. Exam: 21:50 ECG was reviewed by the Attending Physician. cp 22:08 Constitutional: The patient appears in no acute distress, alert, awake, cp non-diaphoretic, non-toxic, well developed, well nourished, uncomfortable. 22:08 Head/Face: Normocephalic, atraumatic. cp 22:08 Eyes: Periorbital structures: appear normal, Conjunctiva: normal, no exudate, no injection, Sclera: no appreciated abnormality, Lids and lashes: appear normal, bilaterally. 22:08 ENT: External ear(s): are unremarkable, Nose: is normal, Mouth: Lips: moist, Oral mucosa: moist, Posterior pharynx: Airway: no evidence of obstruction, patent. 22:08 Neck: ROM/movement: is normal, is supple, without pain, no range of motions limitations. 22:08 Chest/axilla: Inspection: normal, Palpation: crepitus, is not appreciated, tenderness, that is moderate, of the anterior aspect of right upper chest, anterior aspect of left upper chest and mid-sternal area, that partially reproduces the patient's complaints. 22:08 Cardiovascular: Rate: tachycardic, Rhythm: regular, Heart sounds: murmur, not appreciated, Edema: is not appreciated, JVD: is not appreciated. 22:08 Respiratory: the patient does not display signs of respiratory distress, Respirations: normal, no use of accessory muscles, no retractions, labored breathing, is not present, Breath sounds: are clear throughout, no decreased breath sounds, no stridor, no wheezing. 22:08 Abdomen/GI: Inspection: abdomen appears normal, Bowel sounds: active, all quadrants, Palpation: soft, in all quadrants, moderate abdominal tenderness, in the posterior aspect of right lateral abdomen, anterior aspect of right lateral abdomen, right upper quadrant and right lower quadrant, rebound tenderness, is not appreciated, involuntary guarding, is not appreciated. 22:08 Skin: cellulitis, is not appreciated, no rash present. Vital Signs: 20:59 BP 132 / 75; Pulse 103; Resp 18; Temp 98.1; Pulse Ox 100% on R/A; Weight 67.59 kg; mg2 Height 5 ft. 2 in. (157.48 cm); Pain 9/10; 21:30 BP 122 / 77; Pulse 100; Resp 20; Pulse Ox 100% on R/A; ll2 23:00 BP 125 / 77; Pulse 100; Resp 20; Pulse Ox 100% on R/A; ll2 01/22 01:00 BP 120 / 85; Pulse 93; Resp 18; Pulse Ox 98% on R/A; jb4 02:00 BP 127 / 96; Pulse 94; Resp 16; Pulse Ox 98% on R/A; jb4 03:00 BP 98 / 68; Pulse 101; Resp 18; Pulse Ox 99% on R/A; jb4 04:00 BP 108 / 76; Pulse 99; Resp 18; Pulse Ox 98% on R/A; jb4 01/21 20:59 Body Mass Index 27.25 (67.59 kg, 157.48 cm) mg2 MDM: 01/21 21:30 Patient medically screened. cp 01/22 03:00 Transition of care: After a detail discussion of the patient's case, care is cp transferred to Papito Castro MD. 04:38 Differential diagnosis: acute myocardial infarction, acute pericarditis, anxiety, chest mh7 wall pain, costochondritis, myocarditis, pericarditis, pneumonia. HEART Score: History: Slightly Suspicious (0), ECG: Normal (0), Age: < or = 45 years (0), Risk Factors: 1 or 2 risk factors (1), [DM] Troponin: < or = 1 x Normal Limit (0), Total Score = 1. Data reviewed: vital signs, nurses notes, lab test result(s), cardiac enzymes, CBC, electrolytes, urinalysis, EKG, radiologic studies, CT scan, plain films. Data interpreted: Pulse oximetry: on room air is 98 %. Interpretation: normal. Counseling: I had a detailed discussion with the patient and/or guardian regarding: the historical points, exam findings, and any diagnostic results supporting the discharge/admit diagnosis, lab results, radiology results, the need for outpatient follow up, to return to the emergency department if symptoms worsen or persist or if there are any questions or concerns that arise at home. Response to treatment: the patient's symptoms have resolved after treatment, the patient's blood pressure is in an acceptable range, mental status has returned to baseline, the patient no longer shows bradycardia, the patient is not short of breath, the patient is not tachycardic, the patient's pain is gone, the patient's temperature has normalized. 01/21 22:03 Order name: Basic Metabolic Panel 01/21 22:03 Order name: CBC with Diff 01/21 22:03 Order name: LFT's; Complete Time: 23:39 cp 01/21 23:40 Interpretation: Normal except: GLOB 4.0; A/G 0.9. cp 01/21 22:03 Order name: Magnesium; Complete Time: 23:39 01/21 22:03 Order name: NT PRO-BNP; Complete Time: 23:39 cp 01/21 22:03 Order name: PT-INR; Complete Time: 02:48 01/21 22:03 Order name: Troponin (emerg Dept Use Only); Complete Time: 23:39 01/21 22:03 Order name: Lipase; Complete Time: 23:39 01/21 22:03 Order name: Urine Microscopic Only; Complete Time: 23:39 01/21 22:03 Order name: Basic Metabolic Panel; Complete Time: 23:39 EDMS 01/21 23:40 Interpretation: Normal except: GLUC 309; GFR 87. 01/21 22:03 Order name: CBC with Automated Diff; Complete Time: 23:39 EDMS 01/22 02:48 Interpretation: Abnormal: WBC 11.80. 01/21 23:43 Order name: LAB Add On 01/21 23:44 Order name: D-Dimer; Complete Time: 02:48 EDMS 01/21 21:30 Order name: EKG; Complete Time: 21:31 cp 01/21 21:30 Order name: EKG - Nurse/Tech; Complete Time: 23:02 01/21 22:03 Order name: XRAY Chest (1 view) 01/21 22:03 Order name: Cardiac monitoring; Complete Time: 22:14 01/21 22:03 Order name: IV Saline Lock; Complete Time: 23:01 01/21 22:03 Order name: Labs collected and sent; Complete Time: 23:01 cp 01/22 00:06 Order name: CT Abd/Pelvis - IV Contrast Only cp 01/22 01:45 Order name: Troponin I; Complete Time: 04:29 cp 01/21 22:03 Order name: O2 Per Protocol; Complete Time: 23:01 cp 01/21 22:03 Order name: O2 Sat Monitoring; Complete Time: 23:01 cp 01/21 22:03 Order name: Urine Dipstick-Ancillary (obtain specimen); Complete Time: 23:01 cp 01/21 22:03 Order name: Urine Test (obtain specimen); Complete Time: 23:01 cp 01/22 02:49 Order name: PO challenge; Complete Time: 02:53 cp EC/28 21:50 Rate is 94 beats/min. Rhythm is regular. MO interval is normal. QRS interval is normal. cp QT interval is normal. T waves are Inverted in lead aVR. Interpreted by me. Reviewed by me. Administered Medications: 22:45 Drug: fentaNYL (PF) 25 mcg Route: IVP; Site: right hand; ll2 23:45 Follow up: Response: No adverse reaction 2 01/22 00:08 Drug: fentaNYL (PF) 25 mcg Route: IVP; Site: right hand; ll2 01:22 Follow up: Response: No adverse reaction ll2 01:00 Drug: NS 0.9% 1000 ml Route: IV; Rate: 1 bolus; Site: right hand; ll2 02:30 Follow up: Response: No adverse reaction; IV Status: Completed infusion; IV Intake: jb4 1000ml 02:36 Drug: Hydrocodone-Acetaminophen (7.5 mg-325 mg) 1 tabs Route: PO; jb4 03:00 Follow up: Response: No adverse reaction; Pain is decreased; RASS: Alert and Calm (0) jb4 03:00 Drug: Magnesium 400 mg Route: PO; jb4 03:30 Follow up: Response: No adverse reaction jb4 03:00 Drug: Cipro 500 mg Route: PO; jb4 03:30 Follow up: Response: No adverse reaction jb4 03:50 Drug: Zofran (Ondansetron) 4 mg Route: IVP; Site: right hand; jb4 04:20 Follow up: Response: No adverse reaction; Nausea is decreased jb4 Disposition: 07:06 Co-signature as Attending Physician, Papito Castro MD. mh7 Disposition: 01/22/21 04:41 Discharged to Home. Impression: Chest pain, unspecified, Cholelithiasis, Diabetes with Hyperglycemia. - Condition is Stable. - Discharge Instructions: Cholelithiasis, Encm-bw-Gfws, Nonspecific Chest Pain, Wlzh-yx-Walw, Hyperglycemia, Amyp-tu-Reem. - Prescriptions for Zofran ODT 4 mg Oral tablet,disintegrating - place 1 tablet by TRANSLINGUAL route every 8 hours As needed; 6 tablet. Bentyl 20 mg Oral Tablet - take 1 tablet by ORAL route every 6 hours As needed; 20 tablet. - Medication Reconciliation Form, Thank You Letter, Antibiotic Education, Prescription Opioid Use form. - Follow up: Private Physician; When: 1 - 2 days; Reason: Worsening of condition, Recheck today's complaints, Continuance of care, Re-evaluation by your physician. Follow up: Tom Bletre MD; When: 1 - 2 days; Reason: Worsening of condition, Recheck today's complaints. - Problem is new. - Symptoms have improved. Signatures: Dispatcher [employer] [facility] Rashad Sandoval PA PA cp Bryson, James RN RN jb4 Urbano Espinoza RN RN mg2 Yesenia Fleming RN RN ll2 Papito Castro MD MD 7 Corrections: (The following items were deleted from the chart) 01/21 23:44 23:43 D-DIMER+COAG.LAB.BRZ ordered. [facility] EDMS 23:51 23:42 Abdomen Pelvis W Con+CT.RAD.BRZ ordered. [facility] 01/22 04:43 04:41 01/22/2021 04:41 Discharged to Home. Impression: Chest pain, unspecified; mh7 Cholelithiasis. Condition is Stable. Forms are Medication Reconciliation Form, Thank You Letter, Antibiotic Education, Prescription Opioid Use. Follow up: Private Physician; When: 1 - 2 days; Reason: Worsening of condition, Recheck today's complaints, Continuance of care, Re-evaluation by your physician. Follow up: Tom Beltre; When: 1 - 2 days; Reason: Worsening of condition, Recheck today's complaints. Problem is new. Symptoms have improved. 7 05:02 04:43 01/22/2021 04:41 Discharged to Home. Impression: Chest pain, unspecified; jb4 Cholelithiasis; Diabetes with Hyperglycemia. Condition is Stable. Discharge Instructions: Cholelithiasis, Iwxr-rw-Rgou, Nonspecific Chest Pain, Qnab-mu-Hdls. Prescriptions for Zofran ODT 4 mg Oral tablet,disintegrating - place 1 tablet by TRANSLINGUAL route every 8 hours As needed; 6 tablet, Bentyl 20 mg Oral Tablet - take 1 tablet by ORAL route every 6 hours As needed; 20 tablet. and Forms are Medication Reconciliation Form, Thank You Letter, Antibiotic Education, Prescription Opioid Use. Follow up: Private Physician; When: 1 - 2 days; Reason: Worsening of condition, Recheck today's complaints, Continuance of care, Re-evaluation by your physician. Follow up: Tom Beltre; When: 1 - 2 days; Reason: Worsening of condition, Recheck today's complaints. Problem is new. Symptoms have improved. mh7
--- NOTE | 2021-01-22 04:42 | ER ---
Nurse's Notes [facility] Name: Ara Mercado Age: 35 yrs Sex: Female : 1985 Arrival Date: 01/21/2021 Time: 20:56 Bed 14 Private MD: Diagnosis: Chest pain, unspecified;Cholelithiasis;Diabetes with Hyperglycemia Presentation: 01/21 20:59 Chief complaint: Patient states: i started having midsternal chest pain since 7 pm. i mg2 thought it's a panic attack and took xanax but it was not helping. my right flank has been hurting too since 3 pm. Coronavirus screen: Client denies travel out of the [place] in the last 14 days. At this time, the client does not indicate any symptoms associated with coronavirus-19. Ebola Screen: No symptoms or risks identified at this time. Initial Sepsis Screen: Does the patient meet any 2 criteria? No. Patient's initial sepsis screen is negative. Does the patient have a suspected source of infection? No. Patient's initial sepsis screen is negative. Risk Assessment: Do you want to hurt yourself or someone else? Patient reports no desire to harm self or others. Onset of symptoms was January 21, 2021. 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 - Social history:: Smoking status: Patient reports the use of cigarette tobacco products, smokes one-half pack cigarettes per day, Patient/guardian denies using alcohol, street drugs, IV drugs. Screenin:00 Abuse screen: Denies threats or abuse. Nutritional screening: No deficits noted. ll2 Tuberculosis screening: No symptoms or risk factors identified. Fall Risk None identified. Assessment: 21:30 General: Appears in no apparent distress. Behavior is calm, cooperative, appropriate ll2 for age. Pain: Complains of pain in chest. Pain: Pain does not radiate. Pain began suddenly. Neuro: Level of Consciousness is awake, alert, obeys commands, Oriented to person, place, time, situation. Cardiovascular: Patient's skin is warm and dry. Respiratory: Airway is patent Respiratory effort is even, unlabored, Respiratory pattern is regular, symmetrical. GI: No signs and/or symptoms were reported involving the gastrointestinal system. : No signs and/or symptoms were reported regarding the genitourinary system. EENT: No signs and/or symptoms were reported regarding the EENT system. Derm: Skin is intact, is healthy with good turgor, Skin is dry, Skin is pink, warm \T\ dry. Musculoskeletal: Circulation, motion, and sensation intact. Range of motion: intact in all extremities. 22:30 Reassessment: Patient and/or family updated on plan of care and expected duration. Pain ll2 level reassessed. Patient is alert, oriented x 3, equal unlabored respirations, skin warm/dry/pink. 01/22 01:00 Reassessment: Report received from VÍCTOR Patterson. jb4 01:00 Reassessment: Patient appears in no apparent distress at this time. Patient and/or jb4 family updated on plan of care and expected duration. Pain level reassessed. Patient is alert, oriented x 3, equal unlabored respirations, skin warm/dry/pink. 01:56 Reassessment: Patient appears in no apparent distress at this time. Patient and/or jb4 family updated on plan of care and expected duration. Pain level reassessed. Patient is alert, oriented x 3, equal unlabored respirations, skin warm/dry/pink. 03:00 Reassessment: Patient appears in no apparent distress at this time. Patient and/or jb4 family updated on plan of care and expected duration. Pain level reassessed. Patient is alert, oriented x 3, equal unlabored respirations, skin warm/dry/pink. 04:00 Reassessment: Patient appears in no apparent distress at this time. Patient and/or jb4 family updated on plan of care and expected duration. Pain level reassessed. Patient is alert, oriented x 3, equal unlabored respirations, skin warm/dry/pink. Patient states feeling better. 04:57 Reassessment: Patient appears in no apparent distress at this time. Patient and/or jb4 family updated on plan of care and expected duration. Pain level reassessed. Patient is alert, oriented x 3, equal unlabored respirations, skin warm/dry/pink. Vital Signs: 01/21 20:59 BP 132 / 75; Pulse 103; Resp 18; Temp 98.1; Pulse Ox 100% on R/A; Weight 67.59 kg; mg2 Height 5 ft. 2 in. (157.48 cm); Pain 9/10; 21:30 BP 122 / 77; Pulse 100; Resp 20; Pulse Ox 100% on R/A; ll2 23:00 BP 125 / 77; Pulse 100; Resp 20; Pulse Ox 100% on R/A; ll2 03 01:00 BP 120 / 85; Pulse 93; Resp 18; Pulse Ox 98% on R/A; jb4 02:00 BP 127 / 96; Pulse 94; Resp 16; Pulse Ox 98% on R/A; jb4 03:00 BP 98 / 68; Pulse 101; Resp 18; Pulse Ox 99% on R/A; jb4 04:00 BP 108 / 76; Pulse 99; Resp 18; Pulse Ox 98% on R/A; jb4 01/21 20:59 Body Mass Index 27.25 (67.59 kg, 157.48 cm) mg2 ED Course: 01/21 20:56 Patient arrived in ED. cl3 21:02 Triage completed. mg2 21:03 Patient has correct armband on for positive identification. mg2 21:19 Rashad Sandoval PA is PHCP. cp 21:19 Papito Castro MD is Attending Physician. cp 21:37 Yesenia Fleming, VÍCTOR is Primary Nurse. ll2 22:00 No provider procedures requiring assistance completed. Patient maintains SpO2 ll2 saturation greater than 95% on room air. 22:28 Inserted saline lock: 24 gauge in right hand, using aseptic technique. Blood collected. mg2 22:45 XRAY Chest (1 view) In Process Unspecified. EDMS 23:01 CBC with Diff Sent. ll2 23:01 Basic Metabolic Panel Sent. ll2 23:27 Arm band placed on right wrist. EKG completed in triage. Results shown to . ll2 23:27 hand brush filler on. Pulse ox on. NIBP on. ll2 01/22 00:50 Missed attempt(s): 22 gauge in left antecubital area. Missed attempt(s): 18 gauge in jb4 right antecubital area. Missed attempt(s): 20 gauge in left forearm. Bleeding controlled, band aid applied, catheter tip intact. 01:32 Accessed peripheral vein via ultrasound, utilizing dynamic ultrasound technique using bb 20G Nexia IV catheter per hospital protocol. Flushes easily. 02:11 CT Abd/Pelvis - IV Contrast Only In Process Unspecified. EDMS 04:40 Tom Beltre MD is Referral Physician. [facility] 04:57 IV discontinued, intact, bleeding controlled, No redness/swelling at site. Pressure jb4 dressing applied. Administered Medications: 01/21 22:45 Drug: fentaNYL (PF) 25 mcg Route: IVP; Site: right hand; ll2 23:45 Follow up: Response: No adverse reaction 2 01/22 00:08 Drug: fentaNYL (PF) 25 mcg Route: IVP; Site: right hand; ll2 01:22 Follow up: Response: No adverse reaction 2 01:00 Drug: NS 0.9% 1000 ml Route: IV; Rate: 1 bolus; Site: right hand; ll2 02:30 Follow up: Response: No adverse reaction; IV Status: Completed infusion; IV Intake: jb4 1000ml 02:36 Drug: Hydrocodone-Acetaminophen (7.5 mg-325 mg) 1 tabs Route: PO; jb4 03:00 Follow up: Response: No adverse reaction; Pain is decreased; RASS: Alert and Calm (0) jb4 03:00 Drug: Magnesium 400 mg Route: PO; jb4 03:30 Follow up: Response: No adverse reaction jb4 03:00 Drug: Cipro 500 mg Route: PO; jb4 03:30 Follow up: Response: No adverse reaction jb4 03:50 Drug: Zofran (Ondansetron) 4 mg Route: IVP; Site: right hand; jb4 04:20 Follow up: Response: No adverse reaction; Nausea is decreased jb4 Intake: 02:30 IV: 1000ml; Total: 1000ml. jb4 Outcome: 04:41 Discharge ordered by . 7 04:57 Discharged to home ambulatory. jb4 04:57 Condition: stable 04:57 Discharge instructions given to patient, Instructed on discharge instructions, follow up and referral plans. medication usage, Demonstrated understanding of instructions, follow-up care, medications, Prescriptions given X 2. 05:02 Patient left the ED. jb4 Signatures: Dispatcher [employer] EDMS Sara Bourgeois, RN RN bb Rashad Sandoval PA PA cp Bryson, James, RN RN jb4 Urbano Espinoza RN RN mg2 Alexander Cooper 3 Yesenia Fleming RN RN ll2 Papito Castro MD MD 7 Corrections: (The following items were deleted from the chart) 01/21 21:03 20:59 Pulse 103bpm; Resp 18bpm; Pulse Ox 100% RA; Temp 98.1F; 67.59 kg; Height 5 ft. 2 mg2 in.; BMI: 27.2; Pain 9/10; mg2 21:03 21:02 LMP 12/2020 mg2 mg2
[2021-01-22 07:42] VITALS: TEMP 98.1
[2021-01-22 07:50] VITALS: BP 108/76; O2SAT 98
--- NOTE | 2021-01-22 08:13 | RAD REPORT ---
EXAM DESCRIPTION: RAD - Chest Single View - 01/21/2021 10:44 pm CLINICAL HISTORY: CHEST PAIN COMPARISON: December 31 TECHNIQUE: AP portable chest image was obtained 01/21/2021 10:44 pm . FINDINGS: Lungs are clear. Heart and vasculature are normal. No measurable pleural effusion and no p neumothorax. No acute bony abnormality seen. No acute aortic findings suspected. IMPRESSION: No acute cardiopulmonary process. No significant change from comparison study.
--- NOTE | 2021-01-22 11:36 | RAD REPORT ---
EXAM DESCRIPTION: CT - Abdomen Pelvis W Contrast - 01/22/2021 5:43 am CLINICAL HISTORY: The patient is 35 years old and is Female; Abd pain;Flank pain TECHNIQUE: Axial computed tomography images of the abdomen and pelvis with intravenous contrast. S agittal and coronal reformatted images were created and reviewed. This CT exam was performed using one or more of the following dose reduction techniques: automated exposure control, adjustment of t he mA and/or kV according to patient size, and/or use of iterative reconstruction technique. COMPARISON: CT of the abdomen and pelvis November 11, 2020 FINDINGS: LUNG BASES: Unremarkable. No mass. No consolidation. ABDOMEN: LIVER: Unremarkable. No mass. GALLBLADDER AND BILE DUCTS: Multiple gallstones are present within the gallbladder. Air is noted with gallstones. There is no gallbladder wall thickening or pericholecystic fluid. PANCREAS: No ductal dilation. No mass. SPLEEN: Unremarkable. ADRENALS: Unremarkable. No mass. KIDNEYS AND URETERS: Unremarkable. The kidneys enhance symmetrically. No obstructing renal or ur eteral calculus is seen. No hydronephrosis or hydroureter. No perinephric fluid or stranding. STOMACH AND BOWEL: The stomach is well distended with food contents. The small bowel is normal i n caliber. A moderate amount stool is present throughout colon. There is no mucosal thickening or sandy dence of bowel obstruction. PELVIS: APPENDIX: The appendix is normal in caliber without surrounding inflammation. BLADDER: The bladder is moderately distended. REPRODUCTIVE: Unremarkable as visualized. ABDOMEN and PELVIS: INTRAPERITONEAL SPACE: Unremarkable. No free air. No significant fluid collection. BONES/JOINTS: No acute fracture. SOFT TISSUES: The soft tissues are normal. VASCULATURE: Multiple calcified phleboliths are present within the pelvis. No abdominal aortic aneurysm. LYMPH NODES: Unremarkable. No enlarged lymph nodes. IMPRESSION: 1. No acute findings on this contrasted CT of the abdomen and pelvis to explain the pa tient's symptoms. 2. Cholelithiasis without CT evidence to suggest cholecystitis. Electronically signed by: Lulu Watkins MD 01/22/2021 2:25 AM TRIPE SCRAPER Due to temporary technical issues with the PACS/Fluency reporting system, reports are being signed by the in house radiologist without review as a courtesy to ensure prompt reporting. The interpreting r adiologist is fully responsible for the content of the report.
--- NOTE | 2021-01-22 17:09 | EKG ---
Test Date: 2021-01-21 Test Time: 21:43:21 Production Posting Clerk: OTTO MEASUREMENT RESULTS: Intervals: Rate: 94 IA: 142 QRSD: 82 QT: 352 QTc: 440 Mize: P: 50 IA: 142 QRS: 74 T: 39 INTERPRETIVE STATEMENTS: Normal sinus rhythm Normal ECG Compared to ECG 12/31/2020 21:28:57 No significant changes Electronically Signed On 01-22-21 17:06:15 PRINT SHOP MANAGER by Juan Ray
== END 2021-01-22 05:02 | disposition home or self-care (01) ==
LOC: ER 20:54
DX: K80.20 Calculus of gallbladder without cholecystitis without obstruction (principal); E11.65 Type 2 diabetes mellitus with hyperglycemia; F17.210 Nicotine dependence, cigarettes, uncomplicated; Z88.1 Allergy status to other antibiotic agents; Z88.5 Allergy status to narcotic agent; Z88.8 Allergy status to other drugs, medicaments and biological substances
CPT/HCPCS: 36415; 71045; 74177; 80048; 80076; 81015; 83690; 83735; 83880; 84484; 85025; 85379; 85610; 93005; 96361; 96374; 96375; 99285; J2405; J3010; J7030; Q9967

== ENCOUNTER 2021-02-12 02:16 | Emergency (ER) | payer SELFPAY ==
[2021-02-12 03:25] LABS: Protime INR 0.99
[2021-02-12 03:34] LABS: Basophils % 0.9 % (0-1.3); Hematocrit 37.4 % (36.0-45.0); Lymphocytes % 31.2 % (15.3-44.8); MPV 8.2 fL (7.6-11.3); RBC Red Blood Cell Count 4.29 M/uL (3.86-4.86)
[2021-02-12 03:38] LABS: ALT/SGPT 11 U/L (12-78); AST/SGOT 9 U/L (15-37); Albumin 3.4 g/dL (3.4-5.0); Alkaline Phosphatase 105 U/L (45-117); BUN Blood Urea Nitrogen 6 mg/dL (7-18); Bicarbonate 26 mmol/L (21-32); Bilirubin Direct < 0.1 mg/dL (0-0.2); Bilirubin Total 0.3 mg/dL (0.2-1.0); Glucose Level 350 mg/dL (74-106); Magnesium 1.6 mg/dL (1.8-2.4); NT PRO-BNP 70 pg/mL (<125); Potassium 3.7 mmol/L (3.5-5.1); Protein, Total 7.4 g/dL (6.4-8.2); Sodium Level 138 mmol/L (136-145); Troponin (Emerg Dept Use Only) < 0.02 ng/mL (0.0-0.045)
[2021-02-12] MEDS ORDERED: ACETAMINOPHEN 500 MG TAB ONE (03:43)
[2021-02-12] MEDS ORDERED: ONDANSETRON 4 MG/2 ML VIAL ONE (03:43)
[2021-02-12] MEDS ORDERED: NA CHLORIDE 0.9% 1,000 ML ONE (04:04)
[2021-02-12 04:28] LABS: Barbiturates NEGATIVE (NEGATIVE); Benzodiazepines POSITIVE (NEGATIVE); Cocaine NEGATIVE (NEGATIVE); METHAMPHETAM NEGATIVE (NEGATIVE); Methadone NEGATIVE (NEGATIVE); Opiates NEGATIVE (NEGATIVE); Phencyclidine NEGATIVE (NEGATIVE); THC Cannibis NEGATIVE (NEGATIVE)
[2021-02-12] MEDS ORDERED: FENTANYL CITR 100 MCG/2 ML ONE (04:50)
[2021-02-12 05:53] LABS: Urine Blood NEGATIVE (NEG); Urine Glucose 2+ (NEG); Urine Protein NEGATIVE (NEG); Urine Specific Gravity 1.015 (1.005-1.030); Urine pH 5.5 (5.0-7.0)
--- NOTE | 2021-02-12 06:55 | ER ---
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 Coronavirus screen: Client denies travel out of the [place] in the last 14 days. At this time, the client does not indicate any symptoms associated with coronavirus-19. Ebola Screen: No symptoms or risks identified at this time. Initial Sepsis Screen: Does the patient meet any 2 criteria? No. Patient's initial sepsis screen is negative. Does the patient have a suspected source of infection? No. Patient's initial sepsis screen is negative. Risk Assessment: Do you want to hurt yourself or someone else? Patient reports no desire to harm self or others. Onset of symptoms was February 12, 2021 at 02:00. 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 - Social history:: Smoking status: Patient reports the use of cigarette tobacco products, smokes one-half pack cigarettes per day. Screenin:37 Abuse screen: Denies threats or abuse. Denies injuries from another. Nutritional lp1 screening: No deficits noted. Tuberculosis screening: No symptoms or risk factors identified. 07:15 Fall Risk None identified. hb Assessment: 02:45 General: Appears in no apparent distress. Behavior is anxious. Pain: Complains of pain ea in chest Pain radiates to right arm Pain began 1 hour ago. Neuro: Level of Consciousness is awake, alert, obeys commands, Oriented to person, place, time. Cardiovascular: Patient's skin is warm and dry. Respiratory: Airway is patent Respiratory effort is even, unlabored, Respiratory pattern is regular, symmetrical. Derm: Skin is pink, warm \T\ dry. 04:34 Reassessment: Provider notified of patient complaint of continued pain to chest and lp1 right shoulder; Verbal order for Fentanyl 25mcg IV now. 05:50 Reassessment: Patient and/or family updated on plan of care and expected duration. Pain ea level reassessed. Patient is alert, oriented x 3, equal unlabored respirations, skin warm/dry/pink. 06:43 Reassessment: Patient and/or family updated on plan of care and expected duration. Pain ea level reassessed. Patient is alert, oriented x 3, equal unlabored respirations, skin warm/dry/pink. Awaiting on repeat troponin. 07:15 Reassessment: Patient appears in no apparent distress at this time. Patient and/or hb family updated on plan of care and expected duration. Pain level reassessed. Patient is alert, oriented x 3, equal unlabored respirations, skin warm/dry/pink. Vital Signs: 02:34 BP 133 / 93; Pulse 85; Resp 18; Temp 98.2(O); Pulse Ox 100% on R/A; Weight 68.4 kg (R); lp1 Height 5 ft. 2 in. (157.48 cm); Pain 9/10; 03:30 BP 129 / 73; Pulse 80; Resp 18; Pulse Ox 98% ; ea 07:15 BP 122 / 72; Pulse 71; Resp 16; Pulse Ox 99% on R/A; hb 02:34 Body Mass Index 27.58 (68.40 kg, 157.48 cm) lp1 ED Course: 02:20 Patient arrived in ED. am4 02:27 Papito Castro MD is Attending Physician. 7 02:36 Triage completed. lp1 02:36 Arm band placed on. lp1 02:37 Patient maintains SpO2 saturation greater than 95% on room air. lp1 02:45 Initial lab(s) drawn, by me, sent to lab. Inserted saline lock: 22 gauge in right em forearm, using aseptic technique. Blood collected. 02:46 Patient has correct armband on for positive identification. Bed in low position. Call ea light in reach. conveyor monitor on. Pulse ox on. NIBP on. 02:54 XRAY Chest (1 view) In Process Unspecified. EDMS 03:24 Kathy Perkins, RN is Primary Nurse. ea 05:41 IV discontinued, intact, bleeding controlled, No redness/swelling at site. Pressure em dressing applied. 07:15 No provider procedures requiring assistance completed. hb Administered Medications: 03:31 Drug: Zofran (Ondansetron) 4 mg Route: IVP; Site: right forearm; ea 03:31 Drug: Tylenol 1000 mg Route: PO; ea 03:53 Drug: NS 0.9% 1000 ml Route: IV; Rate: 1000 ml; Site: right forearm; ea 04:35 Drug: fentaNYL (PF) 25 mcg Route: IVP; Site: right forearm; lp1 06:00 Not Given (Duplicate Order): fentaNYL (PF) 25 mcg IVP once; RASS on ADMIN: Combtv4, ea Very Agttd3, Agttd2, Rstlss1, AlertClm0, Drwsy-1, Lt Sdtn-2, Mod Sdtn-3, Dp Sdtn-4, UnArsble-5 Outcome: 06:55 Discharge ordered by MD. villagran 07:20 Discharged to home ambulatory. hb 07:20 Condition: stable 07:20 Discharge instructions given to patient, Instructed on discharge instructions, follow up and referral plans. medication usage, Demonstrated understanding of instructions, follow-up care, medications. 07:22 Patient left the ED. Signatures: Dispatcher [employer] EDLuis Atkinson RN RN em Pena, Laura, RN RN lp1 Idalmis Cotton RN RN Kathy Perkins RN RN ea Holmes, Maurice, MD MD 7 [place] 4 Corrections: (The following items were deleted from the chart) 05:59 04:40 fentaNYL (PF) 25 mcg IVP in right antecubital ea ea
--- NOTE | 2021-02-12 06:55 | EDPHYS ---
Physician Documentation [facility] Name: Ara Mercado Age: 35 yrs Sex: Female : 1985 Arrival Date: 02/12/2021 Time: 02:20 Bed 7 Private MD: ED Physician Papito Castro HPI: 02/12 03:11 This 35 yrs old Female presents to ER via Wheelchair with complaints of Chest mh7 Pain, Arm Pain. 03:11 The patient or guardian reports chest pain that is located primarily in the anterior mh7 chest wall, right. The pain radiates to the right arm. Associated signs and symptoms: Pertinent positives: dizziness, nausea, Pertinent negatives: abdominal pain, cough, diaphoresis, headache, lower extremity pain, lower extremity swelling, near syncope, palpitations, recent travel, shortness of breath, syncope, vomiting. The chest pain is described as aching. Duration: The patient or guardian reports multiple episodes, that are intermittent, that wax and wane. Modifying factors: The symptoms are alleviated by nothing. the symptoms are aggravated by movement. Severity of pain: At its worst the pain was moderate today, in the emergency department the pain is unchanged. The patient has experienced similar episodes in the past, multiple times. 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 - Social history:: Smoking status: Patient reports the use of cigarette tobacco products, smokes one-half pack cigarettes per day. ROS: 03:11 Constitutional: Negative for fever, chills, and weight loss, Eyes: Negative for injury, mh7 pain, redness, and discharge, ENT: Negative for injury, pain, and discharge, Neck: Negative for injury, pain, and swelling, Respiratory: Negative for shortness of breath, cough, wheezing, and pleuritic chest pain, Back: Negative for injury and pain, : Negative for injury, bleeding, discharge, and swelling, Skin: Negative for injury, rash, and discoloration, Neuro: Negative for headache, weakness, numbness, tingling, and seizure, Psych: Negative for depression, anxiety, suicide ideation, homicidal ideation, and hallucinations, Allergy/Immunology: Negative for hives, rash, and allergies, Endocrine: Negative for neck swelling, polydipsia, polyuria, polyphagia, and marked weight changes, Hematologic/Lymphatic: Negative for swollen nodes, abnormal bleeding, and unusual bruising. Exam: 03:11 Constitutional: This is a well developed, well nourished patient who is awake, alert, mh7 and in no acute distress. Head/Face: Normocephalic, atraumatic. Eyes: Pupils equal round and reactive to light, extra-ocular motions intact. Lids and lashes normal. Conjunctiva and sclera are non-icteric and not injected. Cornea within normal limits. Periorbital areas with no swelling, redness, or edema. Neck: Trachea midline, no thyromegaly or masses palpated, and no cervical lymphadenopathy. Supple, full range of motion without nuchal rigidity, or vertebral point tenderness. No Meningismus. 03:11 Cardiovascular: Regular rate and rhythm with a normal S1 and S2. No gallops, murmurs, or rubs. Normal PMI, no JVD. No pulse deficits. Respiratory: Lungs have equal breath sounds bilaterally, clear to auscultation and percussion. No rales, rhonchi or wheezes noted. No increased work of breathing, no retractions or nasal flaring. Abdomen/GI: Soft, non-tender, with normal bowel sounds. No distension or tympany. No guarding or rebound. No evidence of tenderness throughout. Back: No spinal tenderness. No costovertebral tenderness. Full range of motion. Skin: Warm, dry with normal turgor. Normal color with no rashes, no lesions, and no evidence of cellulitis. 03:11 Neuro: Awake and alert, GCS 15, oriented to person, place, time, and situation. Cranial nerves II-XII grossly intact. Motor strength 5/5 in all extremities. Sensory grossly intact. Cerebellar exam normal. Normal gait. Psych: Awake, alert, with orientation to person, place and time. Behavior, mood, and affect are within normal limits. 03:11 Chest/axilla: Inspection: normal, Palpation: tenderness, that is moderate, of the anterior aspect of right upper chest, that totally reproduces the patient's complaints, Axilla: are normal, Lymph nodes: lymphadenopathy is not appreciated. 03:11 Musculoskeletal/extremity: Extremities: noted in the right shoulder: tenderness, ROM: limited active range of motion due to pain, in the right arm, limited passive range of motion due to pain, in the right arm, Circulation is intact in all extremities. Pulses: are normal with no appreciated deficits, Perfusion: the patient is normally perfused throughout, Perfusion: the extremity is normally perfused throughout, Calf tenderness, is absent, Edema, is not appreciated, Sensation intact. Compartment Syndrome exam of affected extremity: is normal. no numbness, no tingling, no sensation deficit, no palor, no weak pulses, Joints: the right shoulder displays tenderness, Weight bearing: able to fully bear weight, without difficulty, Tendon exam: specific tendon testing normal through active and passive range of motion Vital Signs: 02:34 BP 133 / 93; Pulse 85; Resp 18; Temp 98.2(O); Pulse Ox 100% on R/A; Weight 68.4 kg (R); lp1 Height 5 ft. 2 in. (157.48 cm); Pain 9/10; 03:30 BP 129 / 73; Pulse 80; Resp 18; Pulse Ox 98% ; ea 07:15 BP 122 / 72; Pulse 71; Resp 16; Pulse Ox 99% on R/A; hb 02:34 Body Mass Index 27.58 (68.40 kg, 157.48 cm) lp1 MDM: 06:52 Differential diagnosis: acute myocardial infarction, acute pericarditis, anxiety, mh7 coronary artery disease chest wall pain, congestive heart failure costochondritis, myocarditis, pericarditis, pneumonia, pneumothorax. HEART Score: History: Slightly Suspicious (0), ECG: Normal (0), Age: < or = 45 years (0), Risk Factors: 1 or 2 risk factors (1), [DM] Troponin: < or = 1 x Normal Limit (0), Total Score = 1. Data reviewed: vital signs, nurses notes, lab test result(s), cardiac enzymes, CBC, electrolytes, urinalysis, urine drug screen, UPT: negative EKG, radiologic studies, plain films. Data interpreted: Pulse oximetry: on room air is 98 %. Interpretation: normal. Counseling: I had a detailed discussion with the patient and/or guardian regarding: the historical points, exam findings, and any diagnostic results supporting the discharge/admit diagnosis, lab results, radiology results, the need for outpatient follow up, to return to the emergency department if symptoms worsen or persist or if there are any questions or concerns that arise at home. Response to treatment: the patient's symptoms have resolved after treatment, the patient's blood pressure is in an acceptable range, mental status has returned to baseline, the patient no longer shows bradycardia, the patient is not short of breath, the patient is not tachycardic, the patient's pain is gone, the patient's temperature has normalized. 06:55 Patient medically screened. [facility] 02/12 02:37 Order name: Basic Metabolic Panel 02/12 02:37 Order name: CBC with Diff ea 02/12 02:37 Order name: LFT's ea 02/12 02:37 Order name: Magnesium 02/12 02:37 Order name: NT PRO-BNP 02/12 02:37 Order name: PT-INR; Complete Time: 03:44 ea 02/12 02:37 Order name: Troponin (emerg Dept Use Only); Complete Time: 03:44 ea 02/12 02:37 Order name: Basic Metabolic Panel; Complete Time: 03:44 EDMS 02/12 02:37 Order name: CBC with Automated Diff; Complete Time: 04:01 EDWA 02/12 02:37 Order name: Liver (Hepatic) Function; Complete Time: 03:44 EDMS 02/12 02:37 Order name: Magnesium; Complete Time: 03:44 EDMS 02/12 02:37 Order name: NT PRO-BNP; Complete Time: 03:44 EDMS 02/12 03:04 Order name: UDS [facility] 02/12 03:04 Order name: Urine Drug Screen; Complete Time: 04:32 EDMS 02/12 02:37 Order name: XRAY Chest (1 view) 02/12 02:37 Order name: EKG; Complete Time: 02:38 ea 02/12 02:37 Order name: Cardiac monitoring; Complete Time: 02:37 ea 02/12 02:37 Order name: EKG - Nurse/Tech; Complete Time: 02:37 ea 02/12 02:37 Order name: IV Saline Lock; Complete Time: 03:45 ea 02/12 02:37 Order name: Labs collected and sent; Complete Time: 03:45 ea 02/12 02:37 Order name: O2 Per Protocol; Complete Time: 02:37 ea 02/12 03:59 Order name: Urine --Ancillary (enter results); Complete Time: 06:08 ds4 02/12 03:59 Order name: Urine Dipstick--Ancillary (enter results); Complete Time: 06:08 ds4 02/12 05:04 Order name: Troponin (emerg Dept Use Only) ea 02/12 05:04 Order name: Troponin (Emerg Dept Use Only); Complete Time: 06:44 EDMS 02/12 02:37 Order name: O2 Sat Monitoring; Complete Time: 02:37 ea 02/12 03:04 Order name: Urine Dipstick-Ancillary (obtain specimen); Complete Time: 03:58 mh7 02/12 03:04 Order name: Urine Test (obtain specimen); Complete Time: 03:58 mh7 Administered Medications: 03:31 Drug: Zofran (Ondansetron) 4 mg Route: IVP; Site: right forearm; ea 03:31 Drug: Tylenol 1000 mg Route: PO; ea 03:53 Drug: NS 0.9% 1000 ml Route: IV; Rate: 1000 ml; Site: right forearm; ea 04:35 Drug: fentaNYL (PF) 25 mcg Route: IVP; Site: right forearm; lp1 06:00 Not Given (Duplicate Order): fentaNYL (PF) 25 mcg IVP once; RASS on ADMIN: Combtv4, ea Very Agttd3, Agttd2, Rstlss1, AlertClm0, Drwsy-1, Lt Sdtn-2, Mod Sdtn-3, Dp Sdtn-4, UnArsble-5 Disposition: 02/12/21 06:55 Discharged to Home. Impression: Chest pain, unspecified, Musculoskeletal Pain. - Condition is Stable. - Discharge Instructions: Musculoskeletal Pain, Nonspecific Chest Pain, [id number]. - Work release form, Medication Reconciliation Form, Thank You Letter, Antibiotic Education, Prescription Opioid Use form. - Follow up: Private Physician; When: 1 - 2 days; Reason: Worsening of condition, Recheck today's complaints, Continuance of care, Re-evaluation by your physician. - Problem is an acute exacerbation. - Symptoms have improved. Signatures: Dispatcher [employer] EDMS Nat Snider RN RN lp1 Idalmis Cotton RN RN hb Kathy Perkins RN RN ea Holmes, Maurice, MD MD mh7 Corrections: (The following items were deleted from the chart) 07:22 06:55 02/12/2021 06:55 Discharged to Home. Impression: Chest pain, unspecified; hb Musculoskeletal Pain. Condition is Stable. Forms are Medication Reconciliation Form, Thank You Letter, Antibiotic Education, Prescription Opioid Use. Follow up: Private Physician; When: 1 - 2 days; Reason: Worsening of condition, Recheck today's complaints, Continuance of care, Re-evaluation by your physician. Problem is an acute exacerbation. Symptoms have improved. mh7
[2021-02-12 07:26] VITALS: TEMP 98.2
[2021-02-12 07:29] VITALS: BP 122/72; O2SAT 99
--- NOTE | 2021-02-12 13:03 | RAD REPORT ---
EXAM DESCRIPTION: Chest Single View 02/12/2021 2:59 AM CDT CLINICAL HISTORY: 35 years, Female, CHEST PAIN COMPARISON: None. FINDINGS: Single view of the chest was obtained portable. No prior films are available for compariso n. The cardiomediastinal silhouette demonstrate to be unremarkable. The heart is not enlarged. Th e thoracic aorta is unremarkable. Costophrenic angles are sharp. No areas of consolidation or geovany s are seen. The rest of the soft tissue and bony structures demonstrate to be unremarkable. IMPRESSION: NO ACUTE CARDIOPULMONARY DISEASE SEEN. Electronically signed by: Kvng Fry MD 02/12/2021 2:59 AM CDT Due to temporary technical issues with the PACS/Fluency reporting system, reports are being signed by the in house radiologist without review as a courtesy to ensure prompt reporting. The interpreting r adiologist is fully responsible for the content of the report.
== END 2021-02-12 07:22 | disposition home or self-care (01) ==
LOC: ER 02:16
DX: R07.9 Chest pain, unspecified (principal); M79.18 Myalgia, other site; E11.9 Type 2 diabetes mellitus without complications; F17.210 Nicotine dependence, cigarettes, uncomplicated; Z88.6 Allergy status to analgesic agent; Z88.8 Allergy status to other drugs, medicaments and biological substances; Z88.1 Allergy status to other antibiotic agents
CPT/HCPCS: 36415; 71045; 80048; 80076; 80307; 81003; 81025; 83735; 83880; 84484; 85025; 85610; 93005; 96374; 96375; 99285; J2405; J3010; J7030

== ENCOUNTER 2021-03-19 22:43 | Emergency (ER) | payer SELFPAY ==
[2021-03-19] MEDS ORDERED: ONDANSETRON 4 MG/2 ML VIAL ONE (23:59)
[2021-03-19] MEDS ORDERED: KETOROLAC 30 MG/ML INJ ONE (23:59)
[2021-03-20] MEDS ORDERED: NA CHLORIDE 0.9% 1,000 ML ONE
[2021-03-20] MEDS ORDERED: FAMOTIDINE 20 MG/2 ML VIAL IV ONE
[2021-03-20 00:10] LABS: Absolute Lymphocytes (CBC) 2.7 K/uL (0.7-4.9); Basophils % 0.9 % (0-1.3); Hematocrit 40.3 % (36.0-45.0); Lymphocytes % 28.6 % (15.3-44.8); MPV 8.6 fL (7.6-11.3); RBC Red Blood Cell Count 4.56 M/uL (3.86-4.86)
[2021-03-20 00:22] LABS: Urine Blood Negative (Negative); Urine Glucose 2+ (Negative); Urine Protein Negative (Negative); Urine Specific Gravity <=1.005 (1.005-1.030)
[2021-03-20] MEDS ORDERED: INSULIN -REGULAR HUMAN 50 UNIT/0.5 ML ML ONE (00:32)
[2021-03-20] MEDS ORDERED: FENTANYL CITR 100 MCG/2 ML ONE (00:32)
[2021-03-20 01:05] LABS: Urine Bacteria <20 /HPF (<20); Urine RBC <5 /HPF (NONE SEEN)
[2021-03-20 01:07] LABS: ALT/SGPT 9 U/L (12-78); AST/SGOT 11 U/L (15-37); Albumin 3.5 g/dL (3.4-5.0); Alkaline Phosphatase 116 U/L (45-117); BUN Blood Urea Nitrogen 8 mg/dL (7-18); Bicarbonate 24 mmol/L (21-32); Bilirubin Direct < 0.1 mg/dL (0-0.2); Bilirubin Total 0.3 mg/dL (0.2-1.0); Glucose Level 491 mg/dL (74-106); Lipase 156 U/L (73-393); Potassium 3.9 mmol/L (3.5-5.1); Protein, Total 7.7 g/dL (6.4-8.2); Sodium Level 133 mmol/L (136-145)
--- NOTE | 2021-03-20 02:42 | ER ---
Nurse's Notes [facility] Name: Ara Mercado Age: 35 yrs Sex: Female : 1985 Arrival Date: 03/19/2021 Time: 22:47 Bed 13 Private MD: Diagnosis: Diabetes mellitus due to underlying condition with hyperglycemia;Cholelithiasis;Radiculopathy;Low back pain Presentation: 03/19 23:32 Chief complaint: Patient states: blood sugar has been almost 600 X 2 days, also her iw legs have been hurting and she has pain/burning with urination X 2 days. Coronavirus screen: At this time, the client does not indicate any symptoms associated with coronavirus-19. Ebola Screen: Patient negative for fever greater than or equal to 101.5 degrees Fahrenheit, and additional compatible Ebola Virus Disease symptoms Patient denies exposure to infectious person. Patient denies travel to an Ebola-affected area in the 21 days before illness onset. No symptoms or risks identified at this time. Initial Sepsis Screen: Does the patient meet any 2 criteria? No. Patient's initial sepsis screen is negative. Does the patient have a suspected source of infection? No. Patient's initial sepsis screen is negative. Risk Assessment: Do you want to hurt yourself or someone else? Patient reports no desire to harm self or others. Onset of symptoms was March 15, 2021. 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 - Social history:: Smoking status: Patient reports the use of cigarette tobacco products, smokes one-half pack cigarettes per day. Screenin:30 Abuse screen: Denies threats or abuse. Nutritional screening: No deficits noted. jb4 Tuberculosis screening: No symptoms or risk factors identified. Fall Risk None identified. Assessment: 23:30 General: Appears in no apparent distress. uncomfortable, Behavior is calm, cooperative, jb4 appropriate for age. Pain: Complains of pain in left low back Pain does not radiate. Pain currently is 9 out of 10 on a pain scale. Neuro: Level of Consciousness is awake, alert, obeys commands, Oriented to person, place, time, situation. Cardiovascular: Patient's skin is warm and dry. Respiratory: Airway is patent Respiratory effort is even, unlabored, Respiratory pattern is regular, symmetrical. GI: No signs and/or symptoms were reported involving the gastrointestinal system. : No signs and/or symptoms were reported regarding the genitourinary system. EENT: No signs and/or symptoms were reported regarding the EENT system. Derm: Skin is intact, Skin is pink, warm \T\ dry. Musculoskeletal: Circulation, motion, and sensation intact. Range of motion: intact in all extremities. 03/20 00:30 Reassessment: Patient appears in no apparent distress at this time. Patient and/or jb4 family updated on plan of care and expected duration. Pain level reassessed. Patient is alert, oriented x 3, equal unlabored respirations, skin warm/dry/pink. Patient states feeling better. 01:15 Reassessment: Patient appears in no apparent distress at this time. Patient and/or jb4 family updated on plan of care and expected duration. Pain level reassessed. Patient is alert, oriented x 3, equal unlabored respirations, skin warm/dry/pink. Pt reports increase in leg pain. Provider notified, see MAR for orders. 02:30 Reassessment: Patient appears in no apparent distress at this time. Patient and/or jb4 family updated on plan of care and expected duration. Pain level reassessed. Patient is alert, oriented x 3, equal unlabored respirations, skin warm/dry/pink. Vital Signs: 03/19 23:45 BP 106 / 63; Pulse 89; Resp 16; Temp 97.3; Pulse Ox 98% on R/A; iw 03/20 01:00 BP 103 / 60; Pulse 92; Resp 16; Pulse Ox 100% on R/A; jb4 ED Course: 03/19 22:47 Patient arrived in ED. am4 23:12 Rashad Sandoval PA is PHCP. cp 23:12 Alex Lemons MD is Attending Physician. cp 23:30 Patient has correct armband on for positive identification. Bed in low position. Call jb4 light in reach. Side rails up X 1. Pulse ox on. NIBP on. 23:33 Triage completed. iw 23:34 Alejandro Dhillon, VÍCTOR is Primary Nurse. jb4 23:54 Inserted saline lock: 20 gauge in right antecubital area, using aseptic technique. dh4 Blood collected. 03/20 01:55 CT Stone Protocol In Process Unspecified. EDMS 03:03 No provider procedures requiring assistance completed. IV discontinued, intact, jb4 bleeding controlled, No redness/swelling at site. Pressure dressing applied. Administered Medications: 03/19 23:54 Not Given (pt reports allergy): TORadol - (ketorolac) 15 mg IVP once jb4 03/20 00:08 Drug: NS 0.9% 1000 ml Route: IV; Rate: 1 bolus; Site: right antecubital; jb4 01:00 Follow up: Response: No adverse reaction; IV Status: Completed infusion; IV Intake: jb4 1000ml 00:08 Drug: Zofran (Ondansetron) 4 mg Route: IVP; Site: right antecubital; jb4 00:30 Follow up: Response: No adverse reaction jb4 00:09 Drug: Pepcid (famotidine) 20 mg Route: IVP; Site: right antecubital; jb4 00:30 Follow up: Response: No adverse reaction jb4 00:21 Drug: fentaNYL (PF) 25 mcg Route: IVP; Site: right antecubital; jb4 01:00 Follow up: Response: No adverse reaction; Marked relief of symptoms; Pain is decreased; jb4 RASS: Alert and Calm (0) 00:21 Drug: Insulin Regular Human 10 units {Co-Signature: rr5 (Abe Westfall RN).} Route: jb4 IVP; Site: right antecubital; 01:30 Follow up: Response: No adverse reaction; Marked relief of symptoms; Blood sugar is jb4 lowered 01:30 Drug: fentaNYL (PF) 25 mcg Route: IVP; Site: right antecubital; jb4 02:00 Follow up: Response: No adverse reaction; Marked relief of symptoms; Pain is decreased jb4 03:01 Drug: HYDROcodone-acetaminophen 5 mg-325 mg 1 tabs Route: Feeding Tube; jb4 03:02 Follow up: Response: Medication administered at discharge. jb4 Intake: 01:00 IV: 1000ml; Total: 1000ml. jb4 Outcome: 02:40 Discharge ordered by . jean marie 03:03 Discharged to home ambulatory. jb4 03:03 Condition: stable 03:03 Discharge instructions given to patient, Instructed on discharge instructions, follow up and referral plans. medication usage, Demonstrated understanding of instructions, follow-up care, medications, Prescriptions given X 2. 03:04 Patient left the ED. jb4 Signatures: Dispatcher [employer] EDLyndsay Astudillo RN RN Rashad Ocampo PA PA cp Bryson, James, RN RN jb4 Hermilo Dorman4 [place] am4 bAe Westfall RN [email or web address]
--- NOTE | 2021-03-20 02:42 | EDPHYS ---
Physician Documentation [facility] Name: Ara Mercado Age: 35 yrs Sex: Female : 1985 Arrival Date: 03/19/2021 Time: 22:47 Bed 13 Private MD: ED Physician Alex Lemons HPI: 03/19 23:30 This 35 yrs old Female presents to ER via Ambulatory with complaints of High cp Blood Sugar, Leg Pain. 23:30 The patient or guardian reports hyperglycemia, that was potentially precipitated by not cp taking prescribed Metformin for past several months. Associated signs and symptoms: Pertinent positives: left side flank pain, bilateral leg pain. Current symptoms: In the emergency department the patient's symptoms are unchanged from the initial presentation, despite home interventions. 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 - Social history:: Smoking status: Patient reports the use of cigarette tobacco products, smokes one-half pack cigarettes per day. ROS: 23:35 Constitutional: Negative for body aches, chills, fever, poor PO intake. cp 23:35 Eyes: Negative for injury, pain, redness, and discharge. cp 23:35 ENT: Negative for ear pain, sore throat, difficulty swallowing, difficulty handling secretions. 23:35 Cardiovascular: Negative for chest pain. 23:35 Respiratory: Negative for cough, shortness of breath, wheezing. 23:35 Abdomen/GI: Negative for vomiting, diarrhea, constipation. 23:35 Back: Positive for flank pain, on the left. 23:35 MS/extremity: Positive for pain, of the right leg and left leg. 23:35 Skin: Negative for cellulitis, rash. 23:35 Neuro: Negative for altered mental status, headache, weakness. 23:35 All other systems are negative. Exam: 23:42 Constitutional: The patient appears in no acute distress, alert, awake, non-toxic, well cp developed, well nourished. 23:42 Head/Face: Normocephalic, atraumatic. cp 23:42 Eyes: Periorbital structures: appear normal, Conjunctiva: normal, no exudate, no injection, Sclera: no appreciated abnormality, Lids and lashes: appear normal, bilaterally. 23:42 ENT: External ear(s): are unremarkable, Nose: is normal, Mouth: Lips: moist, Oral mucosa: moist, Posterior pharynx: Airway: no evidence of obstruction, patent. 23:42 Chest/axilla: Inspection: normal, Palpation: is normal, no crepitus, no tenderness. 23:42 Cardiovascular: Rate: normal, Rhythm: regular. 23:42 Respiratory: the patient does not display signs of respiratory distress, Respirations: normal, no use of accessory muscles, no retractions, labored breathing, is not present, Breath sounds: are clear throughout, no decreased breath sounds, no stridor, no wheezing. 23:42 Abdomen/GI: Inspection: abdomen appears normal, Bowel sounds: active, all quadrants, Palpation: soft, in all quadrants, moderate abdominal tenderness, in the posterior aspect of left lateral abdomen and anterior aspect of left lateral abdomen, rebound tenderness, is not appreciated, involuntary guarding, is not appreciated. 23:42 Musculoskeletal/extremity: DVT Exam: No signs of deep vein thrombosis. no swelling, negative Homans' sign noted on exam, no erythema, no increased warmth, pain, of the right leg, of the left leg. 23:42 Skin: no rash present. 23:42 Neuro: Orientation: to person, place \T\ time. Mentation: is normal. Vital Signs: 23:45 BP 106 / 63; Pulse 89; Resp 16; Temp 97.3; Pulse Ox 98% on R/A; iw 03/20 01:00 BP 103 / 60; Pulse 92; Resp 16; Pulse Ox 100% on R/A; jb4 MDM: 03/19 23:20 Patient medically screened. cp 23:30 Differential diagnosis: DKA, UTI, cholecystitis, sciatica, bulging disc, kidney stone. cp 03/20 02:40 Data reviewed: vital signs, nurses notes, lab test result(s), radiologic studies, CT cp scan. 02:40 Counseling: I had a detailed discussion with the patient and/or guardian regarding: the cp historical points, exam findings, and any diagnostic results supporting the discharge/admit diagnosis, lab results, radiology results, the need for outpatient follow up, for definitive care, a family practitioner, to return to the emergency department if symptoms worsen or persist or if there are any questions or concerns that arise at home. Response to treatment: the patient's symptoms have markedly improved after treatment, and as a result, I will discharge patient. 03/19 23:22 Order name: Basic Metabolic Panel 03/19 23:22 Order name: CBC with Diff 03/19 23:22 Order name: Hepatic Function 03/19 23: Order name: Lipase 03/19 23:22 Order name: Urine Microscopic Only; Complete Time: 01:16 03/20 01:19 Interpretation: Reviewed. 03/19 23:22 Order name: Ketone, Serum; Complete Time: 01:16 03/20 00:56 Interpretation: ACET NEG; Reviewed. 03/19 23:23 Order name: Basic Metabolic Panel; Complete Time: 01:16 EDMS 03/20 01:16 Interpretation: Normal except: NA 133; GLUC 491; GFR 64. 03/19 23:23 Order name: CBC with Automated Diff; Complete Time: 00:56 EDMS 03/20 00:56 Interpretation: Reviewed. 03/19 23:23 Order name: Liver (Hepatic) Function; Complete Time: 01:16 EDMS 03/20 01:19 Interpretation: Normal except: AST 11; ALT 9; GLOB 4.2; A/G 0.8. 03/19 23:23 Order name: Lipase; Complete Time: 01:16 EDMS 03/20 00:04 Order name: Glucose, Ancillary Testing; Complete Time: 00:11 EDMS 03/20 00:11 Interpretation: Reviewed. 03/20 00:21 Order name: Urine Dipstick-Ancillary EDOH 03/20 00:22 Order name: Urine Dipstick-Ancillary; Complete Time: 00:56 EDMS 03/20 00:56 Interpretation: Normal except: UGLUC 2+. 03/20 00:23 Order name: Test, Serum; Complete Time: 01:27 mw2 03/19 23:22 Order name: IV Saline Lock; Complete Time: 23:55 cp 03/19 23:22 Order name: Labs collected and sent; Complete Time: 23:55 03/19 23:22 Order name: Urine Dipstick-Ancillary (obtain specimen); Complete Time: 01:19 cp 03/19 23:22 Order name: Urine Test (obtain specimen); Complete Time: 01:19 cp 03/19 23:58 Order name: CT Stone Protocol 03/19 23:59 Order name: Accucheck Blood Glucose; Complete Time: 00:10 cp 03/20 01:18 Order name: Fingerstick Glucose; Complete Time: 01:18 cp 03/20 01:31 Order name: Glucose, Ancillary Testing; Complete Time: 01:32 EDMS 03/20 01:32 Interpretation: Abnormal: GLUC,ANCIL 147. cp Administered Medications: 03/19 23:54 Not Given (pt reports allergy): TORadol - (ketorolac) 15 mg IVP once [facility] 03/20 00:08 Drug: NS 0.9% 1000 ml Route: IV; Rate: 1 bolus; Site: right antecubital; 4 01:00 Follow up: Response: No adverse reaction; IV Status: Completed infusion; IV Intake: jb4 1000ml 00:08 Drug: Zofran (Ondansetron) 4 mg Route: IVP; Site: right antecubital; jb4 00:30 Follow up: Response: No adverse reaction jb4 00:09 Drug: Pepcid (famotidine) 20 mg Route: IVP; Site: right antecubital; jb4 00:30 Follow up: Response: No adverse reaction 4 00:21 Drug: fentaNYL (PF) 25 mcg Route: IVP; Site: right antecubital; jb4 01:00 Follow up: Response: No adverse reaction; Marked relief of symptoms; Pain is decreased; 4 RASS: Alert and Calm (0) 00:21 Drug: Insulin Regular Human 10 units {Co-Signature: [email or web address] (Abe Westfall RN).} Route: jb4 IVP; Site: right antecubital; 01:30 Follow up: Response: No adverse reaction; Marked relief of symptoms; Blood sugar is jb4 lowered 01:30 Drug: fentaNYL (PF) 25 mcg Route: IVP; Site: right antecubital; jb4 02:00 Follow up: Response: No adverse reaction; Marked relief of symptoms; Pain is decreased jb4 03:01 Drug: HYDROcodone-acetaminophen 5 mg-325 mg 1 tabs Route: Feeding Tube; jb4 03:02 Follow up: Response: Medication administered at discharge. jb4 Disposition: 03:41 Co-signature as Attending Physician, Alex Lemons MD. rn Disposition: 03/20/21 02:40 Discharged to Home. Impression: Diabetes mellitus due to underlying condition with hyperglycemia, Cholelithiasis, Radiculopathy, Low back pain. - Condition is Stable. - Discharge Instructions: Back Pain, Adult, Hyperglycemia, Cholelithiasis, Blood Glucose Monitoring, Adult, Diabetes Mellitus and Food. - Prescriptions for Tylenol- Codeine #3 300-30 mg Oral Tablet - take 2 tablets by ORAL route every 8-12 hours As needed; 15 tablet. Cyclobenzaprine 10 mg Oral Tablet - take 1 tablet by ORAL route every 8 hours As needed; 20 tablet. - Medication Reconciliation Form, Thank You Letter, Antibiotic Education, Prescription Opioid Use form. - Follow up: Private Physician; When: 1 - 2 days; Reason: Recheck today's complaints. - Problem is new. - Symptoms have improved. Signatures: Dispatcher [employer] EDMS Lyndsay Zuluaga RN RN iw Nieto, Roman, MD MD rn Page, Corey, PA PA cp Bryson, James, RN RN jb4 Abe Westfall RN [email or web address] Corrections: (The following items were deleted from the chart) 02:46 02:40 03/20/2021 02:40 Discharged to Home. Impression: Diabetes mellitus due to cp underlying condition with hyperglycemia; Cholelithiasis. Condition is Stable. Forms are Medication Reconciliation Form, Thank You Letter, Antibiotic Education, Prescription Opioid Use. Follow up: Private Physician; When: 1 - 2 days; Reason: Recheck today's complaints. Problem is new. Symptoms have improved. cp 03:04 02:46 03/20/2021 02:40 Discharged to Home. Impression: Diabetes mellitus due to jb4 underlying condition with hyperglycemia; Cholelithiasis; Radiculopathy; Low back pain. Condition is Stable. Discharge Instructions: Back Pain, Adult, Cholelithiasis, Hyperglycemia, Blood Glucose Monitoring, Adult, Diabetes Mellitus and Food. Prescriptions for Tylenol-Codeine #3 300-30 mg Oral Tablet - take 2 tablets by ORAL route every 8-12 hours As needed; 15 tablet, Cyclobenzaprine 10 mg Oral Tablet - take 1 tablet by ORAL route every 8 hours As needed; 20 tablet. and Forms are Medication Reconciliation Form, Thank You Letter, Antibiotic Education, Prescription Opioid Use. Follow up: Private Physician; When: 1 - 2 days; Reason: Recheck today's complaints. Problem is new. Symptoms have improved. cp
[2021-03-20 03:14] VITALS: TEMP 97.3
[2021-03-20 03:15] VITALS: BP 103/60; O2SAT 100
[2021-03-20] MEDS ORDERED: HYDROCODONE/APAP 5/325 MG TAB ONE (03:15)
--- NOTE | 2021-03-20 15:17 | RAD REPORT ---
EXAM DESCRIPTION: CT - Stone Protocol - 03/20/2021 6:38 am COMPARISON: None. CLINICAL HISTORY: [facility] MAIN FLANK PAIN TECHNIQUE: CT of the abdomen and pelvis was acquired without IV contrast material, according to the renal stone protocol. Coronal and sagittal reconstructions were obtained. Automated exposure contro l was utilized on this examination as a dose lowering technique. FINDINGS: Lung bases: Clear. *Limited evaluation of the solid organs due to lack of IV contrast. Liver: Normal. Gallbladder and biliary: Multiple small gallstones are present. Unremarkable biliary tree. Pancreas: Normal. Spleen: Normal. Adrenal glands: Normal. Kidneys and ureters: No renal or ureteral calculi are present. Kidneys are normal. Stomach and Small Bowel: The stomach and small bowel are normal. Urinary bladder: Normal. Uterus and Adnexa: Normal. Colon and Appendix: The colon is unremarkable. No evidence of appendicitis. Peritoneal cavity: No ascites or free air. Retroperitoneum and lymph nodes: Normal. Vascular: Mild atherosclerosis. Musculoskeletal and soft tissues: Soft tissues are unremarkable. No aggressive bone lesions. No com pression fracture. IMPRESSION: 1. No obstructive uropathy or other acute intra-abdominal process. 2. Cholelithiasis. Electronically signed by: Carlos Rankin MD 03/20/2021 2:15 AM CDT Due to temporary technical issues with the PACS/Fluency reporting system, reports are being signed by the in house radiologists without review as a courtesy to insure prompt reporting. The interpreting radiologist is fully responsible for the content of the report.
== END 2021-03-20 03:04 | disposition home or self-care (01) ==
LOC: ER 22:43
DX: E11.65 Type 2 diabetes mellitus with hyperglycemia (principal); K80.20 Calculus of gallbladder without cholecystitis without obstruction; M54.16 Radiculopathy, lumbar region; F17.210 Nicotine dependence, cigarettes, uncomplicated; Z79.84 Long term (current) use of oral hypoglycemic drugs
CPT/HCPCS: 36415; 74176; 76377; 80048; 80076; 81003; 81015; 82010; 82947; 83690; 84703; 85025; 96361; 96374; 96375; 99284; J2405; J3010

== ENCOUNTER 2021-04-14 23:41 | Emergency (ER) | payer SELFPAY ==
[2021-04-15 00:34] LABS: Urine Blood Negative (Negative); Urine Glucose 2+ (Negative); Urine Protein Negative (Negative)
[2021-04-15] MEDS ORDERED: FENTANYL CITR 100 MCG/2 ML ONE (00:51)
[2021-04-15] MEDS ORDERED: ONDANSETRON 4 MG/2 ML VIAL ONE (00:51)
[2021-04-15] MEDS ORDERED: NA CHLORIDE 0.9% 1,000 ML ONE ×2 (00:51→02:07)
[2021-04-15 01:05] LABS: Absolute Lymphocytes (CBC) 2.8 K/uL (0.7-4.9); Hematocrit 40.2 % (36.0-45.0); Lymphocytes % 24.9 % (15.3-44.8); MPV 8.2 fL (7.6-11.3); RBC Red Blood Cell Count 4.63 M/uL (3.86-4.86)
[2021-04-15 01:35] LABS: ALT/SGPT 13 U/L (12-78); AST/SGOT 13 U/L (15-37); Albumin 3.4 g/dL (3.4-5.0); Alkaline Phosphatase 121 U/L (45-117); BUN Blood Urea Nitrogen 7 mg/dL (7-18); Bicarbonate 25 mmol/L (21-32); Bilirubin Direct < 0.1 mg/dL (0-0.2); Bilirubin Total 0.4 mg/dL (0.2-1.0); Lipase 138 U/L (73-393); Potassium 3.7 mmol/L (3.5-5.1); Protein, Total 7.6 g/dL (6.4-8.2); Sodium Level 135 mmol/L (136-145)
[2021-04-15 01:37] LABS: Glucose Level 453 mg/dL (74-106)
[2021-04-15] MEDS ORDERED: INSULIN -REGULAR HUMAN 50 UNIT/0.5 ML ML ONE (02:07)
--- NOTE | 2021-04-15 04:21 | ER ---
Nurse's Notes [facility] Name: Ara Mercado Age: 36 yrs Sex: Female : 1985 Arrival Date: 04/14/2021 Time: 23:45 Bed 19 Private MD: Diagnosis: Flank Pain;Hyperglycemia;Shoulder Strain Presentation: 04/15 00:01 Chief complaint: Patient states: she is having low back pain and thinks she has a UTI bb as she as burning with urination and it is cloudy also she was feeding seagulls on and threw some food up when she did she started having pain in her right shoulder. Coronavirus screen: At this time, the client does not indicate any symptoms associated with coronavirus-19. Ebola Screen: No symptoms or risks identified at this time. Initial Sepsis Screen: Does the patient meet any 2 criteria? No. Patient's initial sepsis screen is negative. Does the patient have a suspected source of infection? No. Patient's initial sepsis screen is negative. Risk Assessment: Do you want to hurt yourself or someone else? Patient reports no desire to harm self or others. Onset of symptoms was April 11, 2021. 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 - Social history:: Smoking status: Patient reports the use of cigarette tobacco products, smokes one-half pack cigarettes per day, Patient/guardian denies using alcohol, street drugs. Screenin:05 Abuse screen: Denies threats or abuse. Nutritional screening: No deficits noted. bb Tuberculosis screening: No symptoms or risk factors identified. Fall Risk None identified. Assessment: 00:05 General: Appears uncomfortable, Behavior is calm, cooperative. Pain: Complains of pain bb in back and right arm Pain currently is 9 out of 10 on a pain scale. Neuro: Level of Consciousness is awake, alert, obeys commands, Oriented to person, place, time, situation. Cardiovascular: Capillary refill < 3 seconds Patient's skin is warm and dry. Respiratory: Respiratory effort is even, unlabored, Respiratory pattern is regular. GI: No signs and/or symptoms were reported involving the gastrointestinal system. : Reports burning with urination. Derm: Skin is pink, warm \T\ dry. Musculoskeletal: Circulation, motion, and sensation intact. Reports pain in right shoulder. 02:00 Reassessment: Patient appears in no apparent distress at this time. Patient and/or wh family updated on plan of care and expected duration. Pain level reassessed. Patient is alert, oriented x 3, equal unlabored respirations, skin warm/dry/pink. 04:00 Reassessment: Patient appears in no apparent distress at this time. Patient and/or wh family updated on plan of care and expected duration. Pain level reassessed. Patient is alert, oriented x 3, equal unlabored respirations, skin warm/dry/pink. Vital Signs: 00:01 BP 132 / 85; Pulse 104; Resp 16 S; Temp 98.3(O); Pulse Ox 99% on R/A; Weight 68.49 kg bb (R); Height 5 ft. 2 in. (157.48 cm) (R); Pain 9/10; 01:30 BP 132 / 90; Pulse 96; Resp 18; Pulse Ox 99% on R/A; wh 03:00 BP 130 / 88; Pulse 96; Resp 18; Pulse Ox 100% on R/A; wh 04:30 BP 115 / 82; Pulse 94; Resp 18; Pulse Ox 100% on R/A; wh 00:01 Body Mass Index 27.62 (68.49 kg, 157.48 cm) ED Course: 04/14 23:45 Patient arrived in ED. cf2 04/15 00:03 Triage completed. bb 00:05 Arm band placed on Patient placed in an exam room, on a stretcher, on pulse oximetry. bb 00:05 Patient has correct armband on for positive identification. Bed in low position. Call bb light in reach. Pulse ox on. NIBP on. 00:07 Papito Castro MD is Attending Physician. mh7 00:35 Sara Bourgeois, RN is Primary Nurse. bb 00:40 Initial lab(s) drawn, by il, sent to lab. Urine collected: clean catch specimen, clear. bb Inserted saline lock: 20 gauge in right antecubital area, using aseptic technique. Blood collected. 00:41 Shoulder Right (2 View) XRAY In Process Unspecified. EDMS 01:23 CT Stone Protocol In Process Unspecified. EDMS 04:23 Fidencio Piña MD is Referral Physician. [facility] 04:42 No provider procedures requiring assistance completed. IV discontinued, intact, bleeding controlled, No redness/swelling at site. Administered Medications: 00:40 Drug: NS 0.9% 1000 ml Route: IV; Rate: 1000 ml; Site: right antecubital; 04:47 Follow up: Response: No adverse reaction; IV Status: Completed infusion 00:40 Drug: Zofran (Ondansetron) 4 mg Route: IVP; Site: right antecubital; 01:42 Follow up: Response: No adverse reaction 00:42 Drug: fentaNYL (PF) 25 mcg {Note: RASS 0.} Route: IVP; Site: right antecubital; 01:42 Follow up: Response: No adverse reaction; Pain is decreased; RASS: Alert and Calm (0) 01:52 Drug: NS 0.9% 1000 ml Route: IV; Rate: 1000 ml; Site: right antecubital; 03:57 Follow up: Response: No adverse reaction; IV Status: Completed infusion 01:54 Drug: Insulin Regular Human 10 units {Co-Signature: bb (Sara Bourgeois RN).} Route: Sub-Q; Site: left lower abdomen; 03:57 Follow up: Response: No adverse reaction; Blood sugar is lowered 02:29 Drug: fentaNYL (PF) 25 mcg {Note: RASS 0.} Route: IVP; Site: right antecubital; 03:57 Follow up: Response: No adverse reaction; Pain is decreased; RASS: Alert and Calm (0) Outcome: 04:20 Discharge ordered by . [facility] 04:43 Discharged to home ambulatory. 04:43 Condition: stable 04:43 Discharge instructions given to patient, Instructed on discharge instructions, follow up and referral plans. no drinking with medication, no driving heavy equipment, medication usage, POC Demonstrated understanding of instructions, follow-up care, medications, splint care, POC Prescriptions given X 2. 04:47 Patient left the ED. Signatures: Dispatcher [employer] Sara Jane RN RN bb Habalo, Winsy, RN RN June Oneill 2 Papito Castro MD MD mh7 Sara harvey
--- NOTE | 2021-04-15 04:22 | EDPHYS ---
Physician Documentation [facility] Name: Ara Mercado Age: 36 yrs Sex: Female : 1985 Arrival Date: 04/14/2021 Time: 23:45 Bed 19 Private MD: ED Physician Papito Castro HPI: 04/15 00:46 This 36 yrs old Female presents to ER via Ambulatory with complaints of Back mh7 Pain, Nausea, Shoulder Pain. 00:46 The patient complains of pain in the left flank. mh7 00:47 The pain does not radiate. Onset: The symptoms/episode began/occurred 4 day(s) ago. mh7 Modifying factors: The symptoms are alleviated by nothing. the symptoms are aggravated by movement, palpation/percussion. 00:47 Associated signs and symptoms: Pertinent positives: dysuria, nausea, Pertinent mh7 negatives: diarrhea, dizziness, fever, urinary frequency, headache, hematuria, pain radiating to the lower extremities, vomiting. Severity of pain: At its worst the pain was moderate 3 day(s) ago, in the emergency department the pain is unchanged. Also reports pain in her right shoulder after throwing some small objects. States that shoulder pain is worse with movement of right upper extremity or touching shoulder.. 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 - Social history:: Smoking status: Patient reports the use of cigarette tobacco products, smokes one-half pack cigarettes per day, Patient/guardian denies using alcohol, street drugs. ROS: 00:47 Constitutional: Negative for fever, chills, and weight loss, Eyes: Negative for injury, mh7 pain, redness, and discharge, ENT: Negative for injury, pain, and discharge, Neck: Negative for injury, pain, and swelling, Cardiovascular: Negative for chest pain, palpitations, and edema, Respiratory: Negative for shortness of breath, cough, wheezing, and pleuritic chest pain, Skin: Negative for injury, rash, and discoloration, Neuro: Negative for headache, weakness, numbness, tingling, and seizure, Psych: Negative for depression, anxiety, suicide ideation, homicidal ideation, and hallucinations, Allergy/Immunology: Negative for hives, rash, and allergies, Endocrine: Negative for neck swelling, polydipsia, polyuria, polyphagia, and marked weight changes, Hematologic/Lymphatic: Negative for swollen nodes, abnormal bleeding, and unusual bruising. Exam: 00:47 Constitutional: This is a well developed, well nourished patient who is awake, alert, mh7 and in no acute distress. Head/Face: Normocephalic, atraumatic. Eyes: Pupils equal round and reactive to light, extra-ocular motions intact. Lids and lashes normal. Conjunctiva and sclera are non-icteric and not injected. Cornea within normal limits. Periorbital areas with no swelling, redness, or edema. Neck: Trachea midline, no thyromegaly or masses palpated, and no cervical lymphadenopathy. Supple, full range of motion without nuchal rigidity, or vertebral point tenderness. No Meningismus. Chest/axilla: Normal chest wall appearance and motion. Nontender with no deformity. No lesions are appreciated. Cardiovascular: Regular rate and rhythm with a normal S1 and S2. No gallops, murmurs, or rubs. Normal PMI, no JVD. No pulse deficits. Respiratory: Lungs have equal breath sounds bilaterally, clear to auscultation and percussion. No rales, rhonchi or wheezes noted. No increased work of breathing, no retractions or nasal flaring. Abdomen/GI: Soft, non-tender, with normal bowel sounds. No distension or tympany. No guarding or rebound. No evidence of tenderness throughout. 00:47 Skin: Warm, dry with normal turgor. Normal color with no rashes, no lesions, and no evidence of cellulitis. 00:47 Neuro: Awake and alert, GCS 15, oriented to person, place, time, and situation. Cranial nerves II-XII grossly intact. Motor strength 5/5 in all extremities. Sensory grossly intact. Cerebellar exam normal. Normal gait. Psych: Awake, alert, with orientation to person, place and time. Behavior, mood, and affect are within normal limits. 00:47 Back: normal spinal alignment noted, CVA tenderness, that is mild, is noted on the left, muscle spasm, is not present. 00:47 Musculoskeletal/extremity: Extremities: noted in the right shoulder: decreased ROM, pain, tenderness, ROM: limited active range of motion due to pain, in the right shoulder, limited passive range of motion due to pain, in the right shoulder, Circulation is intact in all extremities. Sensation intact. Compartment Syndrome exam of affected extremity: is normal. no numbness, no tingling, no sensation deficit, no palor, no weak pulses, Joints: the right shoulder displays limited range of motion, painful range of motion, tenderness, Weight bearing: able to fully bear weight, without difficulty, Tendon exam: specific tendon testing normal through active and passive range of motion DVT Exam: no swelling, negative Homans' sign noted on exam, no appreciated bluish discoloration, no erythema, no increased warmth. Vital Signs: 00:01 BP 132 / 85; Pulse 104; Resp 16 S; Temp 98.3(O); Pulse Ox 99% on R/A; Weight 68.49 kg bb (R); Height 5 ft. 2 in. (157.48 cm) (R); Pain 9/10; 01:30 BP 132 / 90; Pulse 96; Resp 18; Pulse Ox 99% on R/A; wh 03:00 BP 130 / 88; Pulse 96; Resp 18; Pulse Ox 100% on R/A; wh 04:30 BP 115 / 82; Pulse 94; Resp 18; Pulse Ox 100% on R/A; wh 00:01 Body Mass Index 27.62 (68.49 kg, 157.48 cm) MDM: 04:19 Differential diagnosis: nephrolithiasis, pyelonephritis, UTI, diverticulitis. Data [facility] reviewed: vital signs, nurses notes, old medical records, lab test result(s), CBC, electrolytes, urinalysis, radiologic studies, CT scan. Data interpreted: Pulse oximetry: on room air is 99 %. Interpretation: normal. Counseling: I had a detailed discussion with the patient and/or guardian regarding: the historical points, exam findings, and any diagnostic results supporting the discharge/admit diagnosis, lab results, radiology results, the need for outpatient follow up, to return to the emergency department if symptoms worsen or persist or if there are any questions or concerns that arise at home. Response to treatment: the patient's symptoms have markedly improved after treatment. 04:20 Patient medically screened. [facility] 04/15 00:24 Order name: Basic Metabolic Panel; Complete Time: 01:39 [facility] 04/15 00:24 Order name: CBC with Diff; Complete Time: :39 [facility] 04/15 00:24 Order name: Hepatic Function; Complete Time: :39 [facility] 04/15 00:24 Order name: Lipase; Complete Time: :39 [facility] 04/15 00:33 Order name: Urine Dipstick-Ancillary; Complete Time: 01:39 [facility] 04/15 01:11 Order name: Urine --Ancillary (enter results) [facility] 04/15 00:25 Order name: Shoulder Right (2 View) XRAY [facility] 04/15 00:26 Order name: CT Stone Protocol [facility] 04/15 01:12 Order name: Urine --Ancillary; Complete Time: 01:39 [facility] 04/15 04:06 Order name: Glucose, Ancillary Testing; Complete Time: 04:18 [facility] 04/15 00:24 Order name: IV Saline Lock; Complete Time: 00:49 [facility] 04/15 00:24 Order name: Labs collected and sent; Complete Time: 00:48 [facility] 04/15 00:24 Order name: Urine Dipstick-Ancillary (obtain specimen); Complete Time: 00:29 [facility] 04/15 00:24 Order name: Urine Test (obtain specimen); Complete Time: 00:29 [facility] 04/15 04:21 Order name: Sling; Complete Time: 04:40 [facility] Administered Medications: 00:40 Drug: NS 0.9% 1000 ml Route: IV; Rate: 1000 ml; Site: right antecubital; bb 04:47 Follow up: Response: No adverse reaction; IV Status: Completed infusion wh 00:40 Drug: Zofran (Ondansetron) 4 mg Route: IVP; Site: right antecubital; bb 01:42 Follow up: Response: No adverse reaction 00:42 Drug: fentaNYL (PF) 25 mcg {Note: RASS 0.} Route: IVP; Site: right antecubital; bb 01:42 Follow up: Response: No adverse reaction; Pain is decreased; RASS: Alert and Calm (0) 01:52 Drug: NS 0.9% 1000 ml Route: IV; Rate: 1000 ml; Site: right antecubital; 03:57 Follow up: Response: No adverse reaction; IV Status: Completed infusion 01:54 Drug: Insulin Regular Human 10 units {Co-Signature: candice (Sara Bourgeois RN).} Route: Sub-Q; Site: left lower abdomen; 03:57 Follow up: Response: No adverse reaction; Blood sugar is lowered 02:29 Drug: fentaNYL (PF) 25 mcg {Note: RASS 0.} Route: IVP; Site: right antecubital; 03:57 Follow up: Response: No adverse reaction; Pain is decreased; RASS: Alert and Calm (0) Disposition: 04/15/21 04:20 Discharged to Home. Impression: Flank Pain, Hyperglycemia, Shoulder Strain. - Condition is Stable. - Discharge Instructions: Shoulder Sprain, Hyperglycemia, [id number], Flank Pain, [id number]. - Prescriptions for Tylenol- Codeine #3 300-30 mg Oral Tablet - take 1 tablet by ORAL route every 6 hours As needed; 10 tablet. Metformin 500 mg Oral Tablet - take 1 tablet by ORAL route 2 times per day Then take 1 tablet with morning meals AND evening meals; 30 tablet. - Medication Reconciliation Form, Thank You Letter, Antibiotic Education, Prescription Opioid Use form. - Follow up: Private Physician; When: 1 - 2 days; Reason: Worsening of condition, Recheck today's complaints, Continuance of care, Re-evaluation by your physician. Follow up: Fidencio Piña MD; When: 5 - 6 days; Reason: Worsening of condition, Recheck today's complaints. - Problem is new. - Symptoms have improved. Signatures: Dispatcher [employer] EDSara Zhang RN RN bb Habalo, Winsy, RN RN Papito Castro MD MD Monisha harvey Corrections: (The following items were deleted from the chart) 04:23 04:20 04/15/2021 04:20 Discharged to Home. Impression: Flank Pain; Hyperglycemia; 7 Shoulder Strain. Condition is Stable. Forms are Medication Reconciliation Form, Thank You Letter, Antibiotic Education, Prescription Opioid Use. Follow up: Private Physician; When: 1 - 2 days; Reason: Worsening of condition, Recheck today's complaints, Continuance of care, Re-evaluation by your physician. Problem is new. Symptoms have improved. 7 04:47 04:23 04/15/2021 04:20 Discharged to Home. Impression: Flank Pain; Hyperglycemia; wh Shoulder Strain. Condition is Stable. Discharge Instructions: Shoulder Sprain, Hyperglycemia, Fxqq-[id number], Flank Pain, Hkfg-rl-Hglc. Prescriptions for Tylenol-Codeine #3 300-30 mg Oral Tablet - take 1 tablet by ORAL route every 6 hours As needed; 10 tablet. and Forms are Medication Reconciliation Form, Thank You Letter, Antibiotic Education, Prescription Opioid Use. Follow up: Private Physician; When: 1 - 2 days; Reason: Worsening of condition, Recheck today's complaints, Continuance of care, Re-evaluation by your physician. Follow up: Fidencio Piña; When: 5 - 6 days; Reason: Worsening of condition, Recheck today's complaints. Problem is new. Symptoms have improved. 7
[2021-04-15 04:54] VITALS: TEMP 98.3
[2021-04-15 04:58] VITALS: O2SAT 100
[2021-04-15 04:59] VITALS: BP 115/82
--- NOTE | 2021-04-15 08:10 | RAD REPORT ---
EXAM DESCRIPTION: RAD - Shoulder Right 2 View - 04/15/2021 12:41 am CLINICAL HISTORY: Right shoulder pain FINDINGS: No fracture or dislocation is seen.
--- NOTE | 2021-04-15 19:46 | RAD REPORT ---
EXAM DESCRIPTION: CT - Stone Protocol - 04/15/2021 6:13 am COMPARISON: CT abdomen pelvis May 23, 2020 CLINICAL HISTORY: [facility] MAIN TECHNIQUE: Multiple helical axial images were obtained through the abdomen and pelvis without intrav enous contrast. Sagittal and coronal reformatted images are reviewed as well. All CT scans at this facility use dose modulation, iterative reconstruction, and/or weight-based dosi ng when appropriate to reduce radiation dose to as low as reasonably achievable. FINDINGS: Lung bases: Unremarkable. Liver: Homogenous attenuation is demonstrated. Gallbladder/biliary: Gallbladder appears normal in size. Several small stones in the gallbladder are present. No evidence of biliary ductal dilatation. Pancreas: Unremarkable. Spleen: Unremarkable. Adrenals: Unremarkable. Kidneys and ureters: No evidence of renal or ureteral stones. No hydronephrosis. Bladder: Unremarkable. Pelvic organs: Unremarkable. Bowel: No evidence of bowel obstruction. No bowel wall thickening. Appendix appears unremarkable. Peritoneum: No free air. No significant free fluid. Lymph nodes: Unremarkable. Vasculature: Minimal aortic atherosclerosis is noted. Soft tissues: Unremarkable. Bones: Unremarkable. IMPRESSION: 1. No evidence for an acute process within the abdomen or pelvis. 2. Cholelithiasis. Electronically signed by: Ed Panda MD 04/15/2021 2:27 AM CDT Due to temporary technical issues with the PACS/Fluency reporting system, reports are being signed by the in house radiologists without review as a courtesy to insure prompt reporting. The interpreting radiologist is fully responsible for the content of the report.
== END 2021-04-15 04:47 | disposition home or self-care (01) ==
LOC: ER 23:41
DX: E11.65 Type 2 diabetes mellitus with hyperglycemia (principal); S46.911A Strain of unspecified muscle, fascia and tendon at shoulder and upper arm level, right arm, initial encounter; F17.210 Nicotine dependence, cigarettes, uncomplicated; Z88.1 Allergy status to other antibiotic agents; Z88.5 Allergy status to narcotic agent; Z88.6 Allergy status to analgesic agent; Z88.8 Allergy status to other drugs, medicaments and biological substances
CPT/HCPCS: 36415; 74176; 76377; 80048; 80076; 81003; 81025; 82947; 83690; 85025; 96361; 96372; 96374; 96375; 99284; J2405; J3010; J7030

== ENCOUNTER 2021-05-17 20:35 | Emergency (ER) | payer SELFPAY ==
--- NOTE | 2021-05-17 21:52 | ER ---
Nurse's Notes [facility] Name: Ara Mercado Age: 36 yrs Sex: Female : 1985 Arrival Date: 05/17/2021 Time: 20:38 Bed 26 Private MD: Diagnosis: Pain in right shoulder;Candidiasis of vulva and vagina;Cyst of Bartholin's gland Presentation: 05/17 20:46 Chief complaint: Patient states: R shoulder pain that began months ago. Has been seen ss in the ER previously and reports pain had improved until recently. Also c/o vaginal bumps that are itchy that began 1 week ago. Coronavirus screen: Client denies travel out of the [place] in the last 14 days. Ebola Screen: Patient denies exposure to infectious person. Patient denies travel to an Ebola-affected area in the 21 days before illness onset. Initial Sepsis Screen: Does the patient meet any 2 criteria? No. Patient's initial sepsis screen is negative. Does the patient have a suspected source of infection? No. Patient's initial sepsis screen is negative. Risk Assessment: Do you want to hurt yourself or someone else? Patient reports no desire to harm self or others. Onset of symptoms is unknown. 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 - Social history:: Smoking status: Patient reports the use of cigarette tobacco products, smokes one pack cigarettes per day. Screenin:04 Abuse screen: Denies threats or abuse. Denies injuries from another. Nutritional ld1 screening: No deficits noted. Tuberculosis screening: No symptoms or risk factors identified. Fall Risk None identified. Assessment: 21:04 General: Appears in no apparent distress. uncomfortable, Behavior is calm, cooperative, ld1 appropriate for age. Pain: Complains of pain in anterior aspect of right shoulder Pain does not radiate. Pain Quality of pain is described as stabbing, throbbing, Pain began 2-3 days ago. Is continuous. Neuro: Level of Consciousness is awake, alert, obeys commands, Oriented to person, place, time, situation, Appropriate for age. Cardiovascular: Capillary refill < 3 seconds Patient's skin is warm and dry. Respiratory: Airway is patent Respiratory effort is even, unlabored, Respiratory pattern is regular, symmetrical. GI: Abdomen is flat, non-distended. : Reports vaginal itching, Vaginal bump. EENT: No signs and/or symptoms were reported regarding the EENT system. Derm: No signs and/or symptoms reported regarding the dermatologic system. Vital Signs: 20:46 BP 138 / 93; Pulse 97; Resp 14; Temp 98.2(TE); Pulse Ox 98% on R/A; Weight 68.49 kg; ss Height 5 ft. 2 in. (157.48 cm); Pain 9/10; 21:04 BP 128 / 90; Pulse 88; Resp 17; Pulse Ox 99% on R/A; Pain 9/10; ld1 20:46 Body Mass Index 27.62 (68.49 kg, 157.48 cm) ED Course: 20:38 Patient arrived in ED. es 20:47 Triage completed. ss 20:47 Arm band placed on left wrist. ss 21:01 Umair Dorsey PA is PHCP. jr8 21:01 Rashad Melgoza MD is Attending Physician. jr8 21:04 Linsey Nelson, VÍCTOR is Primary Nurse. ld1 21:04 Patient has correct armband on for positive identification. Placed in gown. Bed in low ld1 position. Call light in reach. Side rails up X2. Pulse ox on. NIBP on. Door closed. Noise minimized. Warm blanket given. 21:04 No provider procedures requiring assistance completed. ld1 22:13 Patient did not have IV access during this emergency room visit. ld1 Administered Medications: 22:08 Drug: Tylenol #3 (300 mg-30 mg) 2 tabs Route: PO; ld1 Outcome: 21:51 Discharge ordered by . jr8 22:09 Discharged to home ambulatory. ld1 22:09 Condition: stable 22:09 Discharge instructions given to patient, Instructed on discharge instructions, follow up and referral plans. medication usage, Demonstrated understanding of instructions, follow-up care, medications. 22:13 Patient left the ED. ld1 Signatures: Olga Guillen Shelby RN RN Umair Dorsey PA PA 8 Linsey Nelson RN RN ld1
--- NOTE | 2021-05-17 21:52 | EDPHYS ---
Physician Documentation [facility] Name: Ara Mercado Age: 36 yrs Sex: Female : 1985 Arrival Date: 05/17/2021 Time: 20:38 Bed 26 Private MD: ZACHARY Physician Rashad Melgoza HPI: 05/17 22:18 This 36 yrs old Female presents to ER via Ambulatory with complaints of jr8 Shoulder Pain, VAGINAL BUMPS. 22:18 The patient or guardian complains of decreased range of motion, pain, that is acute. jr8 right shoulder. Context: The problem was sustained at home, resulted from trying to push herself up from a laying position. Onset: The symptoms/episode began/occurred acutely. Modifying factors: the symptoms are alleviated by nothing. The symptoms are aggravated by movement. Associated signs and symptoms: The patient has no apparent associated signs or symptoms. Severity of symptoms: At their worst the symptoms were moderate, in the emergency department the symptoms are unchanged. The patient has not experienced similar symptoms in the past. The patient has not recently seen a physician. Stated that she also has been having uncontrolled vaginal itching despite OTC Vagisil and Monistat . 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 - Social history:: Smoking status: Patient reports the use of cigarette tobacco products, smokes one pack cigarettes per day. ROS: 22:18 Eyes: Negative for injury, pain, redness, and discharge, ENT: Negative for injury, jr8 pain, and discharge, Neck: Negative for injury, pain, and swelling, Cardiovascular: Negative for chest pain, palpitations, and edema, Respiratory: Negative for shortness of breath, cough, wheezing, and pleuritic chest pain, Abdomen/GI: Negative for abdominal pain, nausea, vomiting, diarrhea, and constipation, Back: Negative for injury and pain, Skin: Negative for injury, rash, and discoloration, Neuro: Negative for headache, weakness, numbness, tingling, and seizure. 22:18 : Positive for vaginal itching. 22:18 MS/extremity: Positive for decreased range of motion, pain, of the right shoulder. Exam: 22:18 Constitutional: This is a well developed, well nourished patient who is awake, alert, jr8 and in no acute distress. Chest/axilla: Normal chest wall appearance and motion. Nontender with no deformity. No lesions are appreciated. Cardiovascular: Regular rate and rhythm with a normal S1 and S2. No gallops, murmurs, or rubs. Normal PMI, no JVD. No pulse deficits. Respiratory: Lungs have equal breath sounds bilaterally, clear to auscultation and percussion. No rales, rhonchi or wheezes noted. No increased work of breathing, no retractions or nasal flaring. Abdomen/GI: Soft, non-tender, with normal bowel sounds. No distension or tympany. No guarding or rebound. No evidence of tenderness throughout. Back: No spinal tenderness. No costovertebral tenderness. Full range of motion. Skin: Warm, dry with normal turgor. Normal color with no rashes, no lesions, and no evidence of cellulitis. 22:18 : Pelvic Exam: External exam: Bartholin's cyst present, excoriation noted, no lesions, no ulcerations, no warts seen. 22:18 Musculoskeletal/extremity: Extremities: grossly normal except: noted in the right shoulder: decreased ROM, pain, tenderness, clavicular region extending into trap, Circulation is intact in all extremities. Sensation intact. Vital Signs: 20:46 BP 138 / 93; Pulse 97; Resp 14; Temp 98.2(TE); Pulse Ox 98% on R/A; Weight 68.49 kg; ss Height 5 ft. 2 in. (157.48 cm); Pain 9/10; 21:04 BP 128 / 90; Pulse 88; Resp 17; Pulse Ox 99% on R/A; Pain 9/10; ld1 20:46 Body Mass Index 27.62 (68.49 kg, 157.48 cm) MDM: 21:01 Patient medically screened. [facility] [place] 21:51 Data reviewed: vital signs, nurses notes, and as a result, I will discharge patient. jr8 Data interpreted: Pulse oximetry: on room air is 99 %. Interpretation: normal. Counseling: I had a detailed discussion with the patient and/or guardian regarding: the historical points, exam findings, and any diagnostic results supporting the discharge/admit diagnosis, the need for outpatient follow up, a family practitioner, to return to the emergency department if symptoms worsen or persist or if there are any questions or concerns that arise at home. 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 Last script was 04/14/21... Narc Score 240. Reasonable to jr8 give patient script at this time . Administered Medications: 22:08 Drug: Tylenol #3 (300 mg-30 mg) 2 tabs Route: PO; ld1 Disposition: 05/18 07:12 Co-signature as Attending Physician, Rashad Melgoza MD I agree with the assessment and bobbi plan of care. Disposition: 05/17/21 21:51 Discharged to Home. Impression: Pain in right shoulder, Candidiasis of vulva and vagina, Cyst of Bartholin's gland. - Condition is Stable. - Discharge Instructions: Bartholin Cyst or Abscess, Shoulder Pain, Vaginal Yeast Infection, Adult. - Prescriptions for Clindamycin HCl 300 mg Oral Capsule - take 1 capsule by ORAL route every 6 hours for 7 days; 28 capsule. Diflucan 150 mg Oral Tablet - take 1 tablet by ORAL route one time for 1 day; 1 tablet. Ibuprofen 800 mg Oral Tablet - take 1 tablet by ORAL route every 12 hours As needed take with food; 20 tablet. Tylenol- Codeine #3 300-30 mg Oral Tablet - take 2 tablets by ORAL route every 4-6 hours As needed; 16 tablet. - Medication Reconciliation Form, Thank You Letter, Antibiotic Education, Prescription Opioid Use form. - Follow up: Private Physician; When: 1 week; Reason: Recheck today's complaints, Continuance of care, Re-evaluation by your physician. - Problem is new. - Symptoms have improved. Signatures: Rashad Melgoza MD MD cha Smirch, Shelby, RN RN Umair Bliss PA PA jr8 Linsey Nelson RN RN ld1 Corrections: (The following items were deleted from the chart) 05/17 22:13 21:51 05/17/2021 21:51 Discharged to Home. Impression: Pain in right shoulder; ld1 Candidiasis of vulva and vagina; Cyst of Bartholin's gland. Condition is Stable. Forms are Medication Reconciliation Form, Thank You Letter, Antibiotic Education, Prescription Opioid Use. Follow up: Private Physician; When: 1 week; Reason: Recheck today's complaints, Continuance of care, Re-evaluation by your physician. Problem is new. Symptoms have improved. jr8
[2021-05-17] MEDS ORDERED: CODEINE 30MG/APAP 300MG TAB ONE (22:26)
[2021-05-17 23:23] VITALS: TEMP 98.2
[2021-05-17 23:25] VITALS: BP 128/90; O2SAT 99
== END 2021-05-17 22:13 | disposition home or self-care (01) ==
LOC: ER 20:35
DX: B37.3 Candidiasis of vulva and vagina (principal); N75.0 Cyst of Bartholin's gland; F17.210 Nicotine dependence, cigarettes, uncomplicated; Z88.1 Allergy status to other antibiotic agents; Z88.5 Allergy status to narcotic agent; Z88.6 Allergy status to analgesic agent; Z91.09 Other allergy status, other than to drugs and biological substances
CPT/HCPCS: 99283

== ENCOUNTER 2021-06-02 00:12 | Emergency (ER) | payer SELFPAY ==
--- NOTE | 2021-06-02 01:23 | ER ---
Nurse's Notes [facility] Name: Ara Mercado Age: 36 yrs Sex: Female : 1985 Arrival Date: 06/02/2021 Time: 00:14 Bed 19 Private MD: Diagnosis: Flank Pain;Dysuria Presentation: 06/02 00:54 Chief complaint: Patient states: bonnie. low back pain, reports burning with urination, em denies fever. Coronavirus screen: Client denies travel out of the [place] in the last 14 days. Ebola Screen: Patient negative for fever greater than or equal to 101.5 degrees Fahrenheit, and additional compatible Ebola Virus Disease symptoms Patient denies exposure to infectious person. Patient denies travel to an Ebola-affected area in the 21 days before illness onset. No symptoms or risks identified at this time. Initial Sepsis Screen: Does the patient meet any 2 criteria? HR > 90 bpm. No. Patient's initial sepsis screen is negative. Does the patient have a suspected source of infection? No. Patient's initial sepsis screen is negative. Risk Assessment: Do you want to hurt yourself or someone else? Patient reports no desire to harm self or others. Onset of symptoms was June 02, 2021. 00:54 Method Of Arrival: Ambulatory em 00:54 Acuity: CHARISSA 3 em Triage Assessment: 06:00 Pain: Complains of pain in suprapubic area and right flank. jm8 06:00 GI: Reports flank pain. 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 - Social history:: Smoking status: Patient reports the use of cigarette tobacco products, smokes one pack cigarettes per day. Screenin:00 Abuse screen: Denies threats or abuse. Nutritional screening: No deficits noted. ea Tuberculosis screening: No symptoms or risk factors identified. Fall Risk None identified. Assessment: 02:25 General: Appears uncomfortable, Behavior is calm, cooperative, appropriate for age. ea Neuro: Level of Consciousness is awake, alert, obeys commands, Oriented to person, place, time. Respiratory: Airway is patent Respiratory effort is even, unlabored, Respiratory pattern is regular, symmetrical. Derm: Skin is pink, warm \T\ dry. 03:45 Reassessment: Patient and/or family updated on plan of care and expected duration. Pain rr5 level reassessed. Patient is alert, oriented x 3, equal unlabored respirations, skin warm/dry/pink. Pt taken to CT. 04:05 Reassessment: Patient and/or family updated on plan of care and expected duration. Pain rr5 level reassessed. Patient is alert, oriented x 3, equal unlabored respirations, skin warm/dry/pink. Returned from CT. Vital Signs: 00:54 BP 130 / 79; Pulse 97; Resp 16; Temp 98.8; Pulse Ox 99% on R/A; Weight 70.31 kg; Height em 5 ft. 2 in. (157.48 cm); Pain 7/10; 04:33 BP 103 / 67; Pulse 88; Resp 16; Pulse Ox 100% on R/A; jm8 06:01 BP 100 / 63; Pulse 84; Resp 16; Pulse Ox 99% on R/A; jm8 00:54 Body Mass Index 28.35 (70.31 kg, 157.48 cm) em ED Course: 00:14 Patient arrived in ED. es 00:55 Triage completed. em 00:55 Arm band placed on. em 02:00 Patient has correct armband on for positive identification. Bed in low position. Call ea light in reach. 02:25 Kathy Perkins, VÍCTOR is Primary Nurse. ea 02:34 Papito Castor MD is Attending Physician. 7 03:08 Inserted saline lock: 20 gauge in right antecubital area, using aseptic technique. jb5 Blood collected. 03:09 Basic Metabolic Panel Sent. jb5 03:09 CBC with Diff Sent. jb5 03:09 Hepatic Function Sent. jb5 04:31 CT Stone Protocol In Process Unspecified. EDMS 06:00 No provider procedures requiring assistance completed. IV discontinued, intact, jm8 bleeding controlled, No redness/swelling at site. Administered Medications: 03:14 Drug: NS 0.9% 1000 ml Route: IV; Rate: 1000 ml; Site: right antecubital; ea 06:02 Follow up: Response: No adverse reaction 8 06:02 Follow up: IV Status: Completed infusion jm8 03:41 Drug: Zofran (Ondansetron) 4 mg Route: IVP; Site: right antecubital; em 06:01 Follow up: Response: No adverse reaction 8 03:43 Drug: fentaNYL (PF) 25 mcg Route: IVP; Site: right antecubital; em 06:01 Follow up: Response: No adverse reaction 8 Outcome: 01:23 Patient left the ED. ea 05:51 Discharge ordered by . sparkle 06:00 Discharged to home ambulatory. [email or web address] 06:00 Condition: good 06:00 Discharge instructions given to patient, Instructed on discharge instructions, follow up and referral plans. medication usage, Demonstrated understanding of instructions, follow-up care, medications, Prescriptions given X 2. 06:01 Patient left the ED. jm8 Signatures: Dispatcher [employer] Olga Hamm Edgar, RN RN Beatriz [id number] Kathy Perkins RN RN ea Roque, Raymond RN RN rr5 Papito Castro MD MD 7 Shen Flores RN RN jm8
[2021-06-02 01:30] VITALS: TEMP 98.8
[2021-06-02 02:59] LABS: Urine Blood Negative (Negative); Urine Glucose 2+ (Negative); Urine Protein Negative (Negative)
[2021-06-02 03:13] LABS: Absolute Lymphocytes (CBC) 2.3 K/uL (0.7-4.9); Basophils % 0.8 % (0-1.3); Hematocrit 38.9 % (36.0-45.0); Lymphocytes % 23.5 % (15.3-44.8); MPV 8.6 fL (7.6-11.3); RBC Red Blood Cell Count 4.46 M/uL (3.86-4.86)
[2021-06-02 03:29] LABS: ALT/SGPT 11 U/L (12-78); AST/SGOT 10 U/L (15-37); Albumin 3.3 g/dL (3.4-5.0); Alkaline Phosphatase 87 U/L (45-117); BUN Blood Urea Nitrogen 8 mg/dL (7-18); Bicarbonate 26 mmol/L (21-32); Bilirubin Direct < 0.1 mg/dL (0-0.2); Bilirubin Total 0.3 mg/dL (0.2-1.0); Glucose Level 391 mg/dL (74-106); Lipase 174 U/L (73-393); Potassium 3.3 mmol/L (3.5-5.1); Protein, Total 7.3 g/dL (6.4-8.2); Sodium Level 135 mmol/L (136-145)
[2021-06-02] MEDS ORDERED: NA CHLORIDE 0.9% 1,000 ML ONE (03:32)
[2021-06-02] MEDS ORDERED: ONDANSETRON 4 MG/2 ML VIAL ONE (03:59)
[2021-06-02] MEDS ORDERED: FENTANYL CITR 100 MCG/2 ML ONE (03:59)
--- NOTE | 2021-06-02 05:52 | EDPHYS ---
Physician Documentation [facility] Name: rAa Mercado Age: 36 yrs Sex: Female : 1985 Arrival Date: 06/02/2021 Time: 00:14 Bed 19 Private MD: ED Physician Papito Castro HPI: 06/02 03:54 This 36 yrs old Female presents to ER via Ambulatory with complaints of Low mh7 Back Pain, Nausea. 03:54 The patient complains of pain in the left flank and right flank. The pain radiates to mh7 the lower abdomen. Onset: The symptoms/episode began/occurred 10 day(s) ago. Modifying factors: The symptoms are alleviated by nothing. the symptoms are aggravated by nothing. 03:55 Associated signs and symptoms: Pertinent positives: dysuria, Pertinent negatives: mh7 diarrhea, dizziness, fever, urinary frequency, headache, hematuria, nausea, pain radiating to the lower extremities, vomiting. Severity of pain: At its worst the pain was moderate 4 day(s) ago, in the emergency department the pain is unchanged. 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 - Social history:: Smoking status: Patient reports the use of cigarette tobacco products, smokes one pack cigarettes per day. ROS: 03:55 Constitutional: Negative for fever, chills, and weight loss, Eyes: Negative for injury, mh7 pain, redness, and discharge, ENT: Negative for injury, pain, and discharge, Neck: Negative for injury, pain, and swelling, Cardiovascular: Negative for chest pain, palpitations, and edema, Respiratory: Negative for shortness of breath, cough, wheezing, and pleuritic chest pain, Abdomen/GI: Negative for abdominal pain, nausea, vomiting, diarrhea, and constipation, MS/Extremity: Negative for injury and deformity, Skin: Negative for injury, rash, and discoloration, Neuro: Negative for headache, weakness, numbness, tingling, and seizure, Psych: Negative for depression, anxiety, suicide ideation, homicidal ideation, and hallucinations, Allergy/Immunology: Negative for hives, rash, and allergies, Endocrine: Negative for neck swelling, polydipsia, polyuria, polyphagia, and marked weight changes, Hematologic/Lymphatic: Negative for swollen nodes, abnormal bleeding, and unusual bruising. Exam: 03:55 Constitutional: This is a well developed, well nourished patient who is awake, alert, mh7 and in no acute distress. Head/Face: Normocephalic, atraumatic. Eyes: Pupils equal round and reactive to light, extra-ocular motions intact. Lids and lashes normal. Conjunctiva and sclera are non-icteric and not injected. Cornea within normal limits. Periorbital areas with no swelling, redness, or edema. Neck: Trachea midline, no thyromegaly or masses palpated, and no cervical lymphadenopathy. Supple, full range of motion without nuchal rigidity, or vertebral point tenderness. No Meningismus. Chest/axilla: Normal chest wall appearance and motion. Nontender with no deformity. No lesions are appreciated. Cardiovascular: Regular rate and rhythm with a normal S1 and S2. No gallops, murmurs, or rubs. Normal PMI, no JVD. No pulse deficits. Respiratory: Lungs have equal breath sounds bilaterally, clear to auscultation and percussion. No rales, rhonchi or wheezes noted. No increased work of breathing, no retractions or nasal flaring. 03:55 Skin: Warm, dry with normal turgor. Normal color with no rashes, no lesions, and no evidence of cellulitis. MS/ Extremity: Pulses equal, no cyanosis. Neurovascular intact. Full, normal range of motion. Neuro: Awake and alert, GCS 15, oriented to person, place, time, and situation. Cranial nerves II-XII grossly intact. Motor strength 5/5 in all extremities. Sensory grossly intact. Cerebellar exam normal. Normal gait. Psych: Awake, alert, with orientation to person, place and time. Behavior, mood, and affect are within normal limits. 03:55 Abdomen/GI: Inspection: abdomen appears normal, Bowel sounds: normal, in all quadrants, Palpation: mild abdominal tenderness, in the suprapubic area, mass, is not appreciated, rebound tenderness, is not appreciated, voluntary guarding, is not appreciated, involuntary guarding, is not appreciated, no appreciated organomegaly, Rectal exam: the exam is deferred, because of patient request, Indicators: McBurney's point is not tender, Ritchie's sign is negative, Rovsing's sign is negative, Obturator sign is negative, Psoas sign is negative, Liver: no appreciated palpable abnormalities, Hernia: not appreciated. 03:55 Back: normal spinal alignment noted, CVA tenderness, that is mild, is noted bilaterally, muscle spasm, is not present. Vital Signs: 00:54 BP 130 / 79; Pulse 97; Resp 16; Temp 98.8; Pulse Ox 99% on R/A; Weight 70.31 kg; Height em 5 ft. 2 in. (157.48 cm); Pain 7/10; 04:33 BP 103 / 67; Pulse 88; Resp 16; Pulse Ox 100% on R/A; jm8 06:01 BP 100 / 63; Pulse 84; Resp 16; Pulse Ox 99% on R/A; jm8 00:54 Body Mass Index 28.35 (70.31 kg, 157.48 cm) em MDM: 05:49 Differential diagnosis: nephrolithiasis, pyelonephritis, UTI, Flank Pain. Data [facility] reviewed: vital signs, nurses notes, lab test result(s), CBC, electrolytes, urinalysis, radiologic studies, CT scan. Data interpreted: Pulse oximetry: on room air is 100 %. Interpretation: normal. Counseling: I had a detailed discussion with the patient and/or guardian regarding: the historical points, exam findings, and any diagnostic results supporting the discharge/admit diagnosis, lab results, radiology results, the need for outpatient follow up, to return to the emergency department if symptoms worsen or persist or if there are any questions or concerns that arise at home. Response to treatment: the patient's symptoms have markedly improved after treatment. 05:51 Patient medically screened. [facility] 06/02 02:36 Order name: Basic Metabolic Panel; Complete Time: 03:35 [facility] 06/02 02:36 Order name: CBC with Diff; Complete Time: 03:35 [facility] 06/02 02:36 Order name: Hepatic Function; Complete Time: 03:35 [facility] 06/02 02:36 Order name: Lipase; Complete Time: 03:35 [facility] 06/02 02:58 Order name: Urine Dipstick-Ancillary; Complete Time: 03:04 EDMS 06/02 03:00 Order name: Urine --Ancillary (enter results); Complete Time: 03:35 tt3 06/02 02:36 Order name: IV Saline Lock; Complete Time: 03:01 [facility] 06/02 02:36 Order name: Labs collected and sent; Complete Time: 03:01 [facility] 06/02 02:36 Order name: Urine Dipstick-Ancillary (obtain specimen); Complete Time: 03:01 [facility] 06/02 02:36 Order name: Urine Test (obtain specimen); Complete Time: 03:01 [facility] 06/02 03:37 Order name: CT Stone Protocol [facility] Administered Medications: 03:14 Drug: NS 0.9% 1000 ml Route: IV; Rate: 1000 ml; Site: right antecubital; ea 06:02 Follow up: Response: No adverse reaction [facility] 06:02 Follow up: IV Status: Completed infusion [facility] 03:41 Drug: Zofran (Ondansetron) 4 mg Route: IVP; Site: right antecubital; em 06:01 Follow up: Response: No adverse reaction 8 03:43 Drug: fentaNYL (PF) 25 mcg Route: IVP; Site: right antecubital; em 06:01 Follow up: Response: No adverse reaction 8 Disposition Summary: 06/02/21 05:51 Discharge Ordered Location: Home [facility] Problem: an ongoing problem [facility] Symptoms: have improved [facility] Condition: Stable [facility] Diagnosis - Flank Pain [facility] - Dysuria [facility] Followup: [facility] - With: Private Physician - When: 1 - 2 days - Reason: Worsening of condition, Recheck today's complaints, Continuance of care, Re-evaluation by your physician Discharge Instructions: - Discharge Summary Sheet [facility] - Dysuria [facility] - Flank Pain, Adult, [id number] [facility] Forms: - Medication Reconciliation Form [facility] - Thank You Letter [facility] - Antibiotic Education [facility] - Prescription Opioid Use [facility] Prescriptions: - Pyridium 200 mg Oral Tablet - take 1 tablet by ORAL route every 8 hours for 2 days; 6 tablet; Refills: 0, [facility] Product Selection Permitted - Cipro 500 mg Oral Tablet - take 1 tablet by ORAL route every 12 hours for 7 days; 14 tablet; Refills: 0, mh7 Product Selection Permitted Signatures: Dispatcher [employer] Luis Rogel RN Kathy Lopes RN RN ea Holmes, Maurice, MD MD 7 Shen Flores RN 8 Corrections: (The following items were deleted from the chart) 02:05 01:23 before being seen by provider douglas calhoun 02:05 01:23 wait time douglas calhoun
[2021-06-02 06:10] VITALS: BP 100/63; O2SAT 99
--- NOTE | 2021-06-02 22:30 | RAD REPORT ---
EXAM DESCRIPTION: CT - Stone Protocol - 06/02/2021 6:35 am CLINICAL HISTORY: 6 years Female, Flank pain;Abd pain COMPARISON: April 15, 2021 TECHNIQUE: Contiguous axial CT images of the abdomen and pelvis were obtained. Sagittal and coronal reformats were reviewed. This exam was performed according to our departmental dose-optimization pr ogram, which includes automated exposure control, adjustment of the mA and/or kV according to patient size and/or use of iterative reconstruction technique. FINDINGS: Lung bases: Clear. Liver: Unremarkable. No focal liver lesion. Gallbladder: Gallstones. No CT evidence of cholecystitis. Spleen: Unremarkable Pancreas: Pancreas is unremarkable. Adrenal glands: Within normal limits. Kidneys/ureters: Within normal limits Stomach/small bowel/colon: Stomach is unremarkable. Small bowel is unremarkable. Colon is unremar kable. Appendix: No evidence of appendicitis. Peritoneum: No free fluid. Vascular structures: within normal limits Lymph nodes: No abnormal lymph nodes. Bladder: Unremarkable. Pelvic organs: No acute abnormality Bones: No acute osseous abnormality. Soft tissues: Unremarkable.. IMPRESSION: No acute intra-abdominal abnormality. Electronically signed by: Alejandro Jimenez DO 06/02/2021 5:25 AM CDT Due to temporary technical issues with the PACS/Fluency reporting system, reports are being signed by the in house radiologists without review as a courtesy to insure prompt reporting. The interpreting radiologist is fully responsible for the content of the report.
== END 2021-06-02 06:01 | disposition home or self-care (01) ==
LOC: ER 00:12
DX: R30.0 Dysuria (principal); E11.9 Type 2 diabetes mellitus without complications; F17.210 Nicotine dependence, cigarettes, uncomplicated; Z88.1 Allergy status to other antibiotic agents; Z88.5 Allergy status to narcotic agent; Z88.8 Allergy status to other drugs, medicaments and biological substances
CPT/HCPCS: 36415; 74176; 76377; 80048; 80076; 81003; 81025; 83690; 85025; 96361; 96374; 96375; 99284; J2405; J3010; J7030

== ENCOUNTER 2021-08-05 17:38 | Emergency (ER) | payer SELFPAY ==
[2021-08-05 18:22] LABS: Absolute Lymphocytes (CBC) 2.4 K/uL (0.7-4.9); Basophils % 0.8 % (0-1.3); Hematocrit 36.7 % (36.0-45.0); Lymphocytes % 21.4 % (15.3-44.8); RBC Red Blood Cell Count 4.18 M/uL (3.86-4.86)
[2021-08-05] MEDS ORDERED: NA CHLORIDE 0.9% 2,000 ML ONE (18:28)
[2021-08-05 18:33] LABS: ALT/SGPT 9 U/L (12-78); AST/SGOT 13 U/L (15-37); Albumin 3.6 g/dL (3.4-5.0); Alkaline Phosphatase 102 U/L (45-117); BUN Blood Urea Nitrogen 5 mg/dL (7-18); Bicarbonate 26 mmol/L (21-32); Bilirubin Direct < 0.1 mg/dL (0-0.2); Bilirubin Total 0.3 mg/dL (0.2-1.0); Glucose Level 354 mg/dL (74-106); Lipase 148 U/L (73-393); Potassium 3.7 mmol/L (3.5-5.1); Protein, Total 7.5 g/dL (6.4-8.2); Sodium Level 138 mmol/L (136-145)
[2021-08-05] MEDS ORDERED: MORPHINE 2 MG/ML SYR ONE (18:46)
[2021-08-05] MEDS ORDERED: ONDANSETRON 4 MG/2 ML VIAL ONE (18:46)
[2021-08-05] MEDS ORDERED: FENTANYL CITR 100 MCG/2 ML ONE ×2 (18:53→20:23)
[2021-08-05] MEDS ORDERED: INSULIN -REGULAR HUMAN 50 UNIT/0.5 ML ML ONE (19:17)
[2021-08-05 19:18] LABS: Urine Blood Negative (Negative); Urine Glucose 3+ (Negative); Urine Protein Negative (Negative); Urine pH 5.5 (5.0-7.0)
--- NOTE | 2021-08-05 19:36 | RAD REPORT ---
EXAM DESCRIPTION: CTAbdomen Pelvis W Contrast - 08/05/2021 7:29 pm CLINICAL HISTORY: Abdominal pain. left side abdomen pain COMPARISON: Abdomen Pelvis W Contrast dated 01/22/2021; Abdomen Pelvis W Contrast dated 09/18/2020 ; Abdomen Pelvis W Contrast dated 08/07/2020; Abdomen Pelvis W Contrast dated 05/23/2020; Stone Pro tocol dated 06/02/2021 TECHNIQUE: Biphasic CT imaging of the abdomen and pelvis was performed with 100 ml non-ionic IV cont rast. All CT scans are performed using dose optimization technique as appropriate and may include automated exposure control or mA/KV adjustment according to patient size. FINDINGS: The lung bases are clear.Cholelithiasis. The liver, spleen, pancreas, adrenal glands and kidneys are within normal limits. No bowel obstruction, free air, free fluid or abscess. The appendix is normal. No evidence of signi ficant lymphadenopathy. No suspicious bony findings. IMPRESSION: Cholelithiasis is noted.
[2021-08-05 19:58] LABS: Urine Bacteria LOADED /HPF (<20); Urine RBC NONE SEEN /HPF (NONE SEEN)
[2021-08-05] MEDS ORDERED: CEFTRIAXONE 1000 MG/VIAL ONE (20:23)
--- NOTE | 2021-08-05 20:52 | EDPHYS ---
Physician Documentation [facility] Name: Ara Mercado Age: 36 yrs Sex: Female : 1985 Arrival Date: 08/05/2021 Time: 17:39 Bed 7 Private MD: ED Physician Alex Lemons HPI: 08/05 18:15 This 36 yrs old Female presents to ER via Ambulatory with complaints of cp Urinary Problem, Abscess. 18:15 The patient presents with abdominal pain in the left lower quadrant. cp 18:15 Onset: The symptoms/episode began/occurred 2 day(s) ago. The symptoms radiate to left cp back. 18:15 Associated signs and symptoms: Pertinent positives: nausea, Pertinent negatives: blood cp in stools, constipation, diarrhea, fever, vaginal discharge, vomiting. The symptoms are described as constant. Modifying factors: the symptoms are aggravated by movement, pressure. Severity of pain: in the emergency department the pain is a 10 / 10. Historical: - Immunization history:: Client reports receiving the 2nd dose of the Covid vaccine. - Social history:: Smoking status: Patient reports the use of cigarette tobacco products, smokes one pack cigarettes per day. ROS: 18:20 Constitutional: Negative for body aches, chills, fever, poor PO intake. cp 18:20 Eyes: Negative for injury, pain, redness, and discharge. cp 18:20 ENT: Negative for ear pain, sore throat, difficulty swallowing, difficulty handling secretions. 18:20 Cardiovascular: Negative for chest pain. 18:20 Respiratory: Negative for cough. 18:20 Abdomen/GI: Positive for abdominal pain, nausea, vomiting, and diarrhea, of the posterior aspect of left lateral abdomen, anterior aspect of left lateral abdomen and left lower quadrant, Negative for vomiting, diarrhea, constipation. 18:20 MS/extremity: Negative for injury or acute deformity, pain. 18:20 Neuro: Negative for altered mental status, headache, numbness, weakness. 18:20 All other systems are negative. Exam: 18:25 Constitutional: The patient appears in no acute distress, alert, awake, non-toxic, well cp developed, well nourished, uncomfortable. 18:25 Head/Face: Normocephalic, atraumatic. cp 18:25 Eyes: Periorbital structures: appear normal, Conjunctiva: normal, no exudate, no injection, Sclera: no appreciated abnormality, Lids and lashes: appear normal, bilaterally. 18:25 ENT: External ear(s): are unremarkable, Nose: is normal, Mouth: Lips: moist, Oral mucosa: pink and intact, moist, Posterior pharynx: Airway: no evidence of obstruction, patent. 18:25 Neck: ROM/movement: is normal, is supple, without pain, no range of motions limitations. 18:25 Chest/axilla: Inspection: normal, Palpation: is normal, no crepitus, no tenderness. 18:25 Cardiovascular: Rate: normal, Rhythm: regular. 18:25 Respiratory: the patient does not display signs of respiratory distress, Respirations: normal, no use of accessory muscles, no retractions, labored breathing, is not present, Breath sounds: are clear throughout, no decreased breath sounds, no stridor, no wheezing. 18:25 Abdomen/GI: Inspection: abdomen appears normal, Bowel sounds: active, all quadrants, Palpation: soft, in all quadrants, moderate abdominal tenderness, in the posterior aspect of left lateral abdomen, anterior aspect of left lateral abdomen and left lower quadrant, rebound tenderness, is not appreciated, involuntary guarding, is not appreciated. 18:25 Back: CVA tenderness, is absent. 18:25 Skin: no rash present. 18:25 Neuro: Orientation: to person, place \T\ time. Mentation: is normal, Motor: moves all fours, strength is normal, Sensation: is normal, Gait: is steady, at a normal pace, without difficulty. Vital Signs: 18:07 BP 155 / 86; Pulse 80; Resp 18; Temp 98.3; Pulse Ox 99% ; Weight 69.4 kg; Height 5 ft. ch5 2 in. (157.48 cm); Pain 10/10; 21:43 BP 114 / 74; Pulse 78; Resp 18; Temp 98; Pulse Ox 97% ; Pain 0/10; ms4 18:07 Body Mass Index 27.98 (69.40 kg, 157.48 cm) ch5 MDM: 17:47 Patient medically screened. cp 18:30 Differential diagnosis: appendicitis, cholecystitis, Cholelithiasis, diverticulitis, cp Ectopic , gastritis, Ovarian Torsion, Pelvic Inflammatory Disease, Pyelonephritis, Ureterolithiasis, urinary tract infection. 20:50 Data reviewed: vital signs, nurses notes, lab test result(s), radiologic studies, CT cp scan, and as a result, I will discharge patient. 20:50 Counseling: I had a detailed discussion with the patient and/or guardian regarding: the cp historical points, exam findings, and any diagnostic results supporting the discharge/admit diagnosis, lab results, radiology results, to return to the emergency department if symptoms worsen or persist or if there are any questions or concerns that arise at home. Response to treatment: the patient's symptoms have markedly improved after treatment, VSS. Pain improved. Will discharge to home for continued monitoring. 08/05 17:58 Order name: Urine Microscopic Only 08/05 17:58 Order name: Basic Metabolic Panel 08/05 17:58 Order name: CBC with Diff; Complete Time: 18:52 08/05 17:58 Order name: Hepatic Function; Complete Time: 19:39 08/05 18:35 Interpretation: Normal except: AST 13; ALT 9; GLOB 3.9; A/G 0.9. 08/05 17:58 Order name: Lipase; Complete Time: 19:39 08/05 17:58 Order name: Ketone, Serum; Complete Time: 19:39 08/05 17:58 Order name: Urine Microscopic Only; Complete Time: 20:11 EDIL 08/05 20:11 Interpretation: Normal except: UBACT LOADED. 08/05 17:58 Order name: Basic Metabolic Panel; Complete Time: 19:39 EDMS 08/05 18:35 Interpretation: Normal except: GLUC 354; BUN 5; GFR 61. 08/05 18:16 Order name: Glucose, Ancillary Testing; Complete Time: 18:35 EDIL 08/05 18:37 Order name: CT Abd/Pelvis - IV Contrast Only; Complete Time: 19:39 08/05 19:18 Order name: Urine --Ancillary (enter results); Complete Time: 19:39 tt3 08/05 19:18 Order name: Urine Dipstick-Ancillary; Complete Time: 19:39 EDMS 08/05 19:58 Order name: Urine Culture [facility] 08/05 20:22 Order name: Glucose, Ancillary Testing; Complete Time: 20:50 EDIL 08/05 17:58 Order name: Urine Dipstick-Ancillary (obtain specimen); Complete Time: 19:52 08/05 17:58 Order name: Urine Test (obtain specimen); Complete Time: 19:52 cp 08/05 17:58 Order name: IV Saline Lock; Complete Time: 18:20 cp 08/05 17:58 Order name: Labs collected and sent; Complete Time: 18:20 cp 08/05 19:53 Order name: Accucheck Blood Glucose; Complete Time: 20:10 cp 08/05 20:11 Order name: Accucheck Blood Glucose; Complete Time: 21:43 cp Administered Medications: 18:39 Drug: NS 0.9% 1000 ml Route: IV; Rate: 1 bolus; Site: left hand; ch5 18:39 Drug: NS 0.9% 1000 ml Route: IV; Rate: 1 bolus; Site: left hand; ch5 18:39 Not Given (Allergy to morphinee): morphine 2 mg IVP once; (PAIN>8) RASS on ADMN: ch5 Combtv4, Very Agttd3, Agttd2, Rstlss1, AlertClm0, Drwsy-1, LtSdtn-2, ModSdtn-3, DpSdtn-4, UnArsble-5 x2 18:40 Drug: fentaNYL (PF) 25 mcg Route: IVP; Site: left hand; ch5 18:40 Drug: Zofran (Ondansetron) 4 mg Route: IVP; Site: left hand; ch5 18:55 Drug: NovoLIN R (insulin regular human) 7 units {Co-Signature: tw2 (Ling Zaldivar RN).} ch5 Route: Sub-Q; Site: left upper arm; 20:10 Drug: Rocephin (cefTRIAXone) 1 grams Route: IV; Rate: calculated rate; Site: left hand; ms4 20:10 Drug: fentaNYL (PF) 25 mcg Route: IVP; Site: left hand; ms4 Disposition: 08/06 17:04 Co-signature as Attending Physician, Alex Lemons MD. rn Disposition Summary: 08/05/21 20:52 Discharge Ordered Location: Home cp Problem: new cp Symptoms: have improved cp Condition: Stable cp Diagnosis - UTI/ Urinary tract infection, site not specified cp - Diabetes mellitus due to underlying condition with hyperglycemia cp - Other cholelithiasis without obstruction cp Followup: cp - With: Private Physician - When: 2 - 3 days - Reason: Worsening of condition Discharge Instructions: - Urinary Tract Infection, Adult cp - Cholelithiasis cp - Discharge Summary Sheet ch5 - Blood Glucose Monitoring, Adult cp - Diabetes Mellitus and Nutrition, Adult cp Forms: - SBAR form ch5 - Medication Reconciliation Form cp - Thank You Letter cp - Antibiotic Education cp - Prescription Opioid Use cp Prescriptions: - Zofran 4 mg Oral Tablet - take 1 tablet by ORAL route every 12 hours As needed; 20 tablet; Refills: 0, cp Product Selection Permitted - Cipro 500 mg Oral Tablet - take 1 tablet by ORAL route every 12 hours for 7 days; 14 tablet; Refills: 0, cp Product Selection Permitted - dicyclomine 20 mg Oral Tablet - take 1 tablet by ORAL route 4 times per day; 30 tablet; Refills: 0, Product cp Selection Permitted Signatures: Dispatcher [employer] EDAlex Cartagena MD MD rn Page, Corey, PA PA cp Stroud, Mikaela, RN RN ms4 Lincoln Lee RN RN ch5 Ling Zaldivar RN tw2 Corrections: (The following items were deleted from the chart) 08/05 18:12 18:11 PMHx: Diabetes - NIDDM; ch5 ch5 18:12 18:11 PMHx: GALLSTONES; ch5 ch5
--- NOTE | 2021-08-05 20:52 | ER ---
Nurse's Notes [facility] Name: Ara Mercado Age: 36 yrs Sex: Female : 1985 Arrival Date: 08/05/2021 Time: 17:39 Bed 7 Private MD: Diagnosis: UTI/ Urinary tract infection, site not specified;Diabetes mellitus due to underlying condition with hyperglycemia;Other cholelithiasis without obstruction Presentation: 08/05 18:07 Chief complaint: Patient states: Possible bladder infection. Left sided flank pain. ch5 Denies painful urination but decrease in output. Coronavirus screen: Vaccine status: Patient reports receiving the 2nd dose of the covid vaccine. Client denies travel out of the [place] in the last 14 days. Ebola Screen: Patient negative for fever greater than or equal to 101.5 degrees Fahrenheit, and additional compatible Ebola Virus Disease symptoms Patient denies exposure to infectious person. Patient denies travel to an Ebola-affected area in the 21 days before illness onset. No symptoms or risks identified at this time. Initial Sepsis Screen: Does the patient meet any 2 criteria? No. Patient's initial sepsis screen is negative. Does the patient have a suspected source of infection? Yes: Dysuria/Frequency/Urgency/UTI. Risk Assessment: Do you want to hurt yourself or someone else? Patient reports no desire to harm self or others. 18:07 Method Of Arrival: Ambulatory [facility] 18:07 Acuity: CHARISSA 3 ch5 21:44 Onset of symptoms. ms4 Triage Assessment: 18:10 General: Appears uncomfortable, Behavior is cooperative. Pain: Pain currently is 10 out ch5 of 10 on a pain scale. Historical: - Immunization history:: Client reports receiving the 2nd dose of the Covid vaccine. - Social history:: Smoking status: Patient reports the use of cigarette tobacco products, smokes one pack cigarettes per day. Screenin:12 Abuse screen: Denies threats or abuse. Denies injuries from another. Nutritional 5 screening: No deficits noted. Tuberculosis screening: No symptoms or risk factors identified. Fall Risk None identified. Assessment: 18:11 Reassessment: No changes from previously documented assessment. General: C/O possible ch5 abscess on vagina. Vital Signs: 18:07 BP 155 / 86; Pulse 80; Resp 18; Temp 98.3; Pulse Ox 99% ; Weight 69.4 kg; Height 5 ft. ch5 2 in. (157.48 cm); Pain 10/10; 21:43 BP 114 / 74; Pulse 78; Resp 18; Temp 98; Pulse Ox 97% ; Pain 0/10; ms4 18:07 Body Mass Index 27.98 (69.40 kg, 157.48 cm) ch5 ED Course: 17:39 Patient arrived in ED. rg4 17:42 Rashad Sandovla PA is PHCP. cp 17:42 Alex Lemons MD is Attending Physician. cp 18:07 Lincoln Lee, VÍCTOR is Primary Nurse. ch5 18:10 Triage completed. ch5 18:10 Arm band placed on. ch5 18:10 Initial lab(s) drawn, by ks, sent to lab. Inserted saline lock: 20 gauge in right dh3 antecubital area, using aseptic technique. Blood collected. 18:12 Placed in gown. Bed in low position. Call light in reach. Side rails up X2. ch5 18:12 No provider procedures requiring assistance completed. ch5 18:15 Missed attempt(s): 22 gauge in left forearm. Bleeding controlled, band aid applied, dh3 catheter tip intact. 18:40 Inserted saline lock: 22 gauge in left hand, using aseptic technique. ch5 18:59 Basic Metabolic Panel Sent. ch5 19:21 CT Abd/Pelvis - IV Contrast Only Sent. ms4 19:28 CT Abd/Pelvis - IV Contrast Only In Process Unspecified. EDMS 21:44 intact, bleeding controlled. ms4 Administered Medications: 18:39 Drug: NS 0.9% 1000 ml Route: IV; Rate: 1 bolus; Site: left hand; ch5 18:39 Drug: NS 0.9% 1000 ml Route: IV; Rate: 1 bolus; Site: left hand; ch5 18:39 Not Given (Allergy to morphinee): morphine 2 mg IVP once; (PAIN>8) RASS on ADMN: 5 Combtv4, Very Agttd3, Agttd2, Rstlss1, AlertClm0, Drwsy-1, LtSdtn-2, ModSdtn-3, DpSdtn-4, UnArsble-5 x2 18:40 Drug: fentaNYL (PF) 25 mcg Route: IVP; Site: left hand; ch5 18:40 Drug: Zofran (Ondansetron) 4 mg Route: IVP; Site: left hand; ch5 18:55 Drug: NovoLIN R (insulin regular human) 7 units {Co-Signature: tw2 (Ling Zaldivar RN).} ch5 Route: Sub-Q; Site: left upper arm; 20:10 Drug: Rocephin (cefTRIAXone) 1 grams Route: IV; Rate: calculated rate; Site: left hand; ms4 20:10 Drug: fentaNYL (PF) 25 mcg Route: IVP; Site: left hand; ms4 Outcome: 20:52 Discharge ordered by MD. cp 21:44 Discharged to home ambulatory. ms4 21:44 Condition: stable 21:44 Discharge instructions given to patient, Instructed on discharge instructions, follow up and referral plans. Demonstrated understanding of instructions, follow-up care, medications. 21:44 Patient left the ED. ms4 Addendum: 08/08/2021 16:23 Addendum: Culture Results: Positive urine culture. No further action required. Bacteria s s sensitive to prescribed antibiotic. Phone call Attempt #1 No answer. Left VM. ALLISON Rene recommends to stop taking Cipro and call in new prescription, Macrobid 100 mg PO BID x 7 days # 14, no refills. Signatures: Dispatcher [employer] EDOH Adriane Coronado, RN RN Rashad Dumont PA PA cp Garcia, Rubi Margarita Rodriguez 3 Marsha Villasenor RN RN ms4 Lincoln Lee RN RN ch5 Ling Zaldivar RN tw2 Corrections: (The following items were deleted from the chart) 08/05 18:12 18:11 PMHx: Diabetes - NIDDM; ch5 ch5 18:12 18:11 PMHx: GALLSTONES; ch5 ch5
[2021-08-05 21:55] VITALS: BP 114/74; TEMP 98; O2SAT 97
== END 2021-08-05 21:44 | disposition home or self-care (01) ==
LOC: ER 17:38
DX: N39.0 Urinary tract infection, site not specified (principal); K80.80 Other cholelithiasis without obstruction; E11.65 Type 2 diabetes mellitus with hyperglycemia; F17.210 Nicotine dependence, cigarettes, uncomplicated
CPT/HCPCS: 36415; 74177; 80048; 80076; 81003; 81015; 81025; 82010; 82947; 83690; 85025; 87077; 87086; 87088; 87186; 96372; 96374; 96375; 99284; J2270; J2405; J3010; J7030; Q9967

== ENCOUNTER 2021-08-10 20:34 | Emergency (ER) | payer SELFPAY ==
--- NOTE | 2021-08-10 21:53 | RAD REPORT ---
EXAM DESCRIPTION: Laura Single View08/10/2021 9:41 pm CLINICAL HISTORY: Chest pain COMPARISON: January 2021 FINDINGS: The lungs appear clear of acute infiltrate. The heart is normal size IMPRESSION: No acute abnormalities displayed
--- NOTE | 2021-08-10 21:55 | RAD REPORT ---
EXAM DESCRIPTION: RAD - Humerus Right - 08/10/2021 9:41 pm CLINICAL HISTORY: Right arm pain FINDINGS: No fracture is seen. No bony abnormality displayed
[2021-08-10 22:16] LABS: Basophils % 0.5 % (0-1.3); Hematocrit 36.8 % (36.0-45.0); Lymphocytes % 27.8 % (15.3-44.8); MPV 7.4 fL (7.6-11.3); RBC Red Blood Cell Count 4.21 M/uL (3.86-4.86)
[2021-08-10 22:18] LABS: Protime INR 1.05
[2021-08-10 22:40] LABS: ALT/SGPT 8 U/L (12-78); AST/SGOT 9 U/L (15-37); Albumin 3.4 g/dL (3.4-5.0); Alkaline Phosphatase 82 U/L (45-117); BUN Blood Urea Nitrogen 6 mg/dL (7-18); Bicarbonate 26 mmol/L (21-32); Bilirubin Direct < 0.1 mg/dL (0-0.2); Bilirubin Total 0.3 mg/dL (0.2-1.0); Glucose Level 257 mg/dL (74-106); Magnesium 1.7 mg/dL (1.8-2.4); NT PRO-BNP 54 pg/mL (<125); Potassium 3.4 mmol/L (3.5-5.1); Sodium Level 139 mmol/L (136-145); Troponin (Emerg Dept Use Only) < 0.02 ng/mL (0.0-0.045)
[2021-08-10] MEDS ORDERED: FENTANYL CITR 100 MCG/2 ML ONE (23:02)
[2021-08-10] MEDS ORDERED: ONDANSETRON 4 MG/2 ML VIAL ONE (23:03)
--- NOTE | 2021-08-11 01:39 | EDPHYS ---
Physician Documentation [facility] Name: Ara Mercado Age: 36 yrs Sex: Female : 1985 Arrival Date: 08/10/2021 Time: 20:36 Bed 26 Private MD: ED Physician Papito Castro HPI: 08/10 22:22 This 36 yrs old Female presents to ER via Ambulatory with complaints of Chest kb Pain, Shoulder Injury, Shoulder Pain. 22:22 The patient or guardian reports chest pain that is located primarily in the substernal kb area. The pain does not radiate. Associated signs and symptoms: The patient has no apparent associated signs or symptoms. The chest pain is described as sharp. Duration: The patient or guardian reports a single episode. Modifying factors: The symptoms are alleviated by nothing. the symptoms are aggravated by palpation of area. Severity of pain: At its worst the pain was mild in the emergency department the pain is unchanged. The patient has not experienced similar symptoms in the past. Pt reports she fell on Friday and has had right shoulder pain since then. 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 Historical: - Allergies: 20:46 Bactrim; em 20:46 Morphine; em 20:46 Flagyl; em 20:46 Toradol; em 20:46 tramadol; em - PMHx: 20:46 Diabetes mellitus; Gallstone; em - PSHx: 20:46 None; em - Immunization history:: Adult Immunizations up to date. - Social history:: Smoking status: Patient denies any tobacco usage or history of. ROS: 22:22 Constitutional: Negative for fever, chills, and weight loss. kb 22:22 Cardiovascular: Positive for chest pain, Negative for edema, orthopnea, palpitations, paroxysmal nocturnal dyspnea. 22:22 MS/extremity: Positive for pain, of the anterior aspect of right shoulder. 22:22 All other systems are negative. Exam: 22:21 Constitutional: This is a well developed, well nourished patient who is awake, alert, kb and in no acute distress. Head/Face: Normocephalic, atraumatic. ENT: Moist Mucous membranes Cardiovascular: Regular rate and rhythm with a normal S1 and S2. No gallops, murmurs, or rubs. No pulse deficits. Respiratory: Respirations even and unlabored. No increased work of breathing, no retractions or nasal flaring. Skin: Warm, dry with normal turgor. Normal color. Neuro: Awake and alert, GCS 15, oriented to person, place, time, and situation. Moves all extremities. Normal gait. Psych: Awake, alert, with orientation to person, place and time. Behavior, mood, and affect are within normal limits. 22:21 Chest/axilla: Inspection: normal, Palpation: tenderness, that is mild, of the mid-sternal area. 22:21 ECG was reviewed by the Attending Physician. 22:21 Musculoskeletal/extremity: Extremities: grossly normal except: noted in the anterior aspect of right shoulder: decreased ROM, pain, ROM: limited active range of motion due to pain, in the anterior aspect of right shoulder, Circulation is intact in all extremities. Sensation intact. Vital Signs: 20:45 Pulse 93; Resp 18; Temp 97.8; Pulse Ox 99% on R/A; Weight 68.04 kg; Height 5 ft. 2 in. em (157.48 cm); 20:49 BP 138 / 77; em 22:27 BP 116 / 84; Pulse 88; Resp 12; Temp 99.2; Pulse Ox 98% on R/A; Weight 69.4 kg; Height wr 5 ft. 2 in. (157.48 cm); 23:33 BP 121 / 62; Pulse 85; Resp 12; Temp 99.2; Pulse Ox 98% ; wr 08/11 01:49 BP 119 / 69; Pulse 83; Resp 14; Temp 98; Pulse Ox 100% ; wr 08/10 22:27 Body Mass Index 27.98 (69.40 kg, 157.48 cm) wr MDM: 08/10 20:50 Patient medically screened. kb 22:22 Data reviewed: vital signs, nurses notes. Data interpreted: Pulse oximetry: on room air kb is 99 %. Interpretation: normal. 08/11 01:37 Counseling: I had a detailed discussion with the patient and/or guardian regarding: the kb historical points, exam findings, and any diagnostic results supporting the discharge/admit diagnosis, lab results, radiology results, the need for outpatient follow up, a family practitioner, to return to the emergency department if symptoms worsen or persist or if there are any questions or concerns that arise at home. 08/10 21:05 Order name: Basic Metabolic Panel; Complete Time: 22:44 kb 08/10 21:05 Order name: CBC with Diff; Complete Time: 22:31 kb 08/10 21:05 Order name: LFT's; Complete Time: 22:44 kb 08/10 21:05 Order name: Magnesium; Complete Time: 22:44 kb 08/10 21:05 Order name: NT PRO-BNP; Complete Time: 22:44 kb 08/10 21:05 Order name: PT-INR; Complete Time: 22:31 kb 08/10 21:05 Order name: Humerus Right XRAY; Complete Time: 21:56 kb 08/10 21:05 Order name: Troponin (emerg Dept Use Only); Complete Time: 22:44 kb 08/10 21:05 Order name: XRAY Chest (1 view); Complete Time: 21:56 kb 08/10 23:49 Order name: Troponin (emerg Dept Use Only) kb 08/10 23:49 Order name: Troponin (Emerg Dept Use Only); Complete Time: 01:37 EDMS 08/10 21:05 Order name: EKG; Complete Time: 21:05 kb 08/10 21:05 Order name: Cardiac monitoring; Complete Time: 21:14 kb 08/10 21:05 Order name: EKG - Nurse/Tech; Complete Time: 22:25 kb 08/10 21:05 Order name: IV Saline Lock; Complete Time: 22:25 kb 08/10 21:05 Order name: Labs collected and sent; Complete Time: 22:25 kb 08/10 21:05 Order name: O2 Per Protocol; Complete Time: 21:14 kb 08/10 21:05 Order name: O2 Sat Monitoring; Complete Time: 21:14 kb 08/10 23:49 Order name: EKG; Complete Time: 23:49 kb 08/10 23:49 Order name: EKG - Nurse/Tech; Complete Time: 00:37 kb EC/17 22:21 Rate is 79 beats/min. Rhythm is regular. QRS [place] is Normal. OK interval is normal at kb 150 msec. QRS interval is normal at 86 msec. QT interval is normal at 382 msec. Administered Medications: 22:46 Drug: Zofran (Ondansetron) 4 mg Route: IVP; Site: left antecubital; wr 22:47 Drug: fentaNYL (PF) 25 mcg Route: IVP; Site: left antecubital; wr 08/11 01:42 Drug: [place] (HYDROcodone-acetaminophen) 10 mg-325 mg 1 tabs Route: PO; wr 01:43 Drug: NS 0.9% 1000 ml Route: IV; Rate: 1000 ml; Site: right antecubital; Disposition: 05:54 Co-signature as Attending Physician, Papito Castro MD. [email or web address] Disposition Summary: 08/11/21 01:38 Discharge Ordered Location: Home kb Condition: Stable kb Diagnosis - Chest pain, unspecified kb - Pain in right shoulder kb Followup: kb - With: Emergency Department - When: As needed - Reason: Worsening of condition Followup: kb - With: Private Physician - When: 2 - 3 days - Reason: Recheck today's complaints, Continuance of care, Re-evaluation by your physician Discharge Instructions: - Discharge Summary Sheet kb - Shoulder Pain, [id number] kb - Nonspecific Chest Pain, Adult, [id number] kb Forms: - Medication Reconciliation Form kb - Thank You Letter kb - Antibiotic Education kb - Prescription Opioid Use kb Signatures: Dispatcher [employer] Celina Diana, GRAVURE PRESS OPERATOR-C GRAVURE PRESS OPERATOR-Luis Ray, RN RN Papito Becker MD MD [facility] Maria M Rodrigez
--- NOTE | 2021-08-11 01:39 | ER ---
Nurse's Notes [facility] Name: Ara Mercado Age: 36 yrs Sex: Female : 1985 Arrival Date: 08/10/2021 Time: 20:36 Bed 26 Private MD: Diagnosis: Chest pain, unspecified;Pain in right shoulder Presentation: 08/10 20:45 Chief complaint: Patient states: chest pain that started about 1 hour ago, reports em falling on Friday and having right shoulder pain. Coronavirus screen: Vaccine status: Patient reports receiving the 2nd dose of the covid vaccine. Ebola Screen: Patient negative for fever greater than or equal to 101.5 degrees Fahrenheit, and additional compatible Ebola Virus Disease symptoms Patient denies exposure to infectious person. Patient denies travel to an Ebola-affected area in the 21 days before illness onset. No symptoms or risks identified at this time. Initial Sepsis Screen: Does the patient meet any 2 criteria? HR > 90 bpm. No. Patient's initial sepsis screen is negative. Does the patient have a suspected source of infection? No. Patient's initial sepsis screen is negative. Risk Assessment: Do you want to hurt yourself or someone else? Patient reports no desire to harm self or others. Onset of symptoms was August 10, 2021. 20:45 Method Of Arrival: Ambulatory em 20:45 Acuity: CHARISSA 3 em Triage Assessment: 22:28 General: Appears uncomfortable, well groomed, Behavior is cooperative. Cardiovascular: wr Reports chest pain, nausea, shortness of breath. 22:29 Pain: Complains of pain in chest and right arm Pain. wr Historical: - Allergies: 20:46 Bactrim; em 20:46 Morphine; em 20:46 Flagyl; em 20:46 Toradol; em 20:46 tramadol; em - PMHx: 20:46 Diabetes mellitus; Gallstone; em - PSHx: 20:46 None; em - Immunization history:: Adult Immunizations up to date. - Social history:: Smoking status: Patient denies any tobacco usage or history of. Screenin:31 Abuse screen: Denies. Nutritional screening: No deficits noted. wr 23:32 Tuberculosis screening: No symptoms or risk factors identified. Fall Risk wr Assessment: 23:31 Pain: Pain began 1 hour ago. wr Vital Signs: 20:45 Pulse 93; Resp 18; Temp 97.8; Pulse Ox 99% on R/A; Weight 68.04 kg; Height 5 ft. 2 in. em (157.48 cm); 20:49 BP 138 / 77; em 22:27 BP 116 / 84; Pulse 88; Resp 12; Temp 99.2; Pulse Ox 98% on R/A; Weight 69.4 kg; Height wr 5 ft. 2 in. (157.48 cm); 23:33 BP 121 / 62; Pulse 85; Resp 12; Temp 99.2; Pulse Ox 98% ; wr 08/11 01:49 BP 119 / 69; Pulse 83; Resp 14; Temp 98; Pulse Ox 100% ; wr 08/10 22:27 Body Mass Index 27.98 (69.40 kg, 157.48 cm) wr ED Course: 08/10 20:36 Patient arrived in ED. cf2 20:46 Triage completed. em 20:46 Arm band placed on. em 20:50 Celina Driver [facility]C [facility] kb 20:50 Papito Castro MD is Attending Physician. kb 21:41 Humerus Right XRAY In Process Unspecified. EDMS 21:41 XRAY Chest (1 view) In Process Unspecified. EDMS 22:25 Basic Metabolic Panel Sent. wr 22:25 CBC with Diff Sent. wr 22:25 LFT's Sent. wr 22:26 Magnesium Sent. wr 22:26 NT PRO-BNP Sent. wr 22:26 PT-INR Sent. wr 22:26 Troponin (emerg Dept Use Only) Sent. wr 23:17 Melissa Madison is Primary Nurse. kh1 Administered Medications: 22:46 Drug: Zofran (Ondansetron) 4 mg Route: IVP; Site: left antecubital; wr 22:47 Drug: fentaNYL (PF) 25 mcg Route: IVP; Site: left antecubital; wr 08/11 01:42 Drug: Lavon (HYDROcodone-acetaminophen) 10 mg-325 mg 1 tabs Route: PO; wr 01:43 Drug: NS 0.9% 1000 ml Route: IV; Rate: 1000 ml; Site: right antecubital; wr Outcome: 01:38 Discharge ordered by . kb 03:03 Patient left the ED. em Signatures: Dispatcher [employer] EDMS Celina Driver, AUTOMATION QTP TESTER-C AUTOMATION QTP TESTER-Ckb Luis Donis, RN RN June Hamilton 2 Melissa Madison [facility] Maria M Rodrigez
[2021-08-11] MEDS ORDERED: HYDROCODONE/APAP 10/325 TAB ONE (01:47)
[2021-08-11] MEDS ORDERED: NA CHLORIDE 0.9% 1,000 ML ONE (01:47)
[2021-08-11 03:30] VITALS: BP 119/69; TEMP 98; O2SAT 100
== END 2021-08-11 03:03 | disposition home or self-care (01) ==
LOC: ER 20:34
DX: M25.511 Pain in right shoulder (principal); E11.9 Type 2 diabetes mellitus without complications; W19.XXXA Unspecified fall, initial encounter; Z88.1 Allergy status to other antibiotic agents; Z88.5 Allergy status to narcotic agent
CPT/HCPCS: 36415; 71045; 80048; 80076; 83735; 83880; 84484; 85025; 85610; 93005; 96374; 96375; 99284; J2405; J3010; J7030

== ENCOUNTER 2021-08-31 18:52 | Emergency (ER) | payer SELFPAY ==
[2021-08-31 19:34] LABS: Urine Blood Negative (Negative); Urine Glucose 2+ (Negative); Urine Protein Negative (Negative); Urine Specific Gravity 1.015 (1.005-1.030)
[2021-08-31 20:08] LABS: Albumin 3.6 g/dL (3.4-5.0); Bilirubin Direct 0.1 mg/dL (0-0.2); Bilirubin Total 0.4 mg/dL (0.2-1.0); Potassium 4.1 mmol/L (3.5-5.1); Protein, Total 7.6 g/dL (6.4-8.2)
[2021-08-31] MEDS ORDERED: ONDANSETRON 4 MG/2 ML VIAL ONE ×2 (20:17→22:34)
[2021-08-31] MEDS ORDERED: NA CHLORIDE 0.9% 1,000 ML ONE ×2 (20:17→21:47)
[2021-08-31] MEDS ORDERED: FENTANYL CITR 100 MCG/2 ML ONE ×2 (20:17→21:46)
[2021-08-31 20:24] LABS: Absolute Lymphocytes (CBC) 2.6 K/uL (0.7-4.9); Basophils % 1.2 % (0-1.3); Hematocrit 38.4 % (36.0-45.0); Lymphocytes % 21.3 % (15.3-44.8); MPV 8.1 fL (7.6-11.3); RBC Red Blood Cell Count 4.36 M/uL (3.86-4.86)
--- NOTE | 2021-08-31 20:28 | RAD REPORT ---
EXAM DESCRIPTION: US - Abdomen Exam Limited - 08/31/2021 8:21 pm CLINICAL HISTORY: Abdominal pain. COMPARISON: 2019 FINDINGS: Multiple gallstones. The gallbladder wall is not thickened. Gallbladder is contracted The biliary tree is normal caliber. IMPRESSION: Cholelithiasis
[2021-08-31 21:08] LABS: Urine Specific Gravity/Preg 1.015 (1.005-1.030)
[2021-08-31] MEDS ORDERED: NA CHLORIDE 0.9% 500 ML ONE (21:47)
[2021-08-31] MEDS ORDERED: INSULIN -REGULAR HUMAN 50 UNIT/0.5 ML ML ONE (21:47)
--- NOTE | 2021-08-31 23:23 | ER ---
Nurse's Notes [facility] Name: Ara Mercado Age: 36 yrs Sex: Female : 1985 Arrival Date: 08/31/2021 Time: 18:58 Bed 16 Private MD: Diagnosis: Cholelithiasis. Diabetes Presentation: 08/31 19:03 Chief complaint: Patient states: R flank pain for 2 hours, + nausea. No fever. ll1 Coronavirus screen: Vaccine status: Patient reports receiving the 2nd dose of the covid vaccine. Client denies travel out of the [place] in the last 14 days. nausea, Client presents with at least one sign or symptom that may indicate coronavirus-19. Standard/surgical mask placed on the client. Ebola Screen: Patient denies travel to an Ebola-affected area in the 21 days before illness onset. 19:03 Method Of Arrival: Ambulatory ll1 19:04 Initial Sepsis Screen: Does the patient meet any 2 criteria? HR > 90 bpm. No. Patient's ll1 initial sepsis screen is negative. Does the patient have a suspected source of infection? Yes: Acute abdominal pain. Risk Assessment: Do you want to hurt yourself or someone else? Patient reports no desire to harm self or others. Onset of symptoms was August 31, 2021. 19:04 Acuity: CHARISSA 3 ll1 20:13 Note lab called critical glucose 461. df1 23:07 Note Blood glucose POC 101. Provider notified. Pt to eat snack and juice. 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 - Social history:: Smoking status: Patient reports the use of cigarette tobacco products, smokes one-half pack cigarettes per day. Screenin:05 Abuse screen: Denies threats or abuse. Nutritional screening: No deficits noted. df1 Tuberculosis screening: No symptoms or risk factors identified. Fall Risk None identified. Assessment: 20:04 General: Appears uncomfortable, Behavior is calm, cooperative. Pain: Complains of pain df1 in right upper quadrant Pain does not radiate. Neuro: No deficits noted. Cardiovascular: No deficits noted. Respiratory: Respiratory effort is even, unlabored, Respiratory pattern is regular, Breath sounds are clear bilaterally. GI: Bowel sounds present X 4 quads. Abdomen is tender to palpation in right upper quadrant Reports nausea, Patient currently denies vomiting. : No deficits noted. EENT: No deficits noted. Derm: No deficits noted. Musculoskeletal: No deficits noted. Vital Signs: 19:03 BP 136 / 83; Pulse 114; Resp 17; Temp 97.7; Pulse Ox 98% ; Weight 70.76 kg; Height 5 ll1 ft. 2 in. (157.48 cm); Pain 10/10; 20:01 BP 139 / 93; Pulse 97; Resp 18; Pulse Ox 97% on R/A; df1 20:51 BP 101 / 67; Pulse 94; Resp 18; Pulse Ox 99% on R/A; Pain 7/10; df1 21:30 BP 113 / 76; Pulse 92; Resp 18; Pulse Ox 97% on R/A; df1 23:08 BP 111 / 68; Pulse 88; Resp 18; Pulse Ox 100% on R/A; df1 23:58 BP 115 / 72; Pulse 91; Resp 18; Pulse Ox 98% on R/A; df1 19:03 Body Mass Index 28.53 (70.76 kg, 157.48 cm) ll1 ED Course: 18:58 Patient arrived in ED. ja2 19:03 Arm band placed on. ll1 19:04 Triage completed. ll1 19:06 Tanya Espinoza, VÍCTOR is Primary Nurse. tc5 19:16 Josiah Barney MD is Attending Physician. pkl 19:59 Urine --Ancillary (enter results) Sent. df1 20:05 Patient has correct armband on for positive identification. Placed in gown. Bed in low df1 position. Call light in reach. Side rails up X 1. Adult w/ patient. 20:21 US Abdomen Limited In Process Unspecified. EDMS 21:53 CT Abd/Pelvis - IV Contrast Only Sent. df1 21:58 CT Abd/Pelvis - IV Contrast Only In Process Unspecified. EDMS 23:21 Tom Beltre MD is Referral Physician. pkl 23:35 Primary Nurse role handed off by Tanya Espinoza, VÍCTOR bb 23:38 Leslie Mclaughlin is Primary Nurse. df1 09/01 00:43 No provider procedures requiring assistance completed. IV discontinued, intact. df1 Administered Medications: 08/31 19:58 Drug: fentaNYL (PF) 25 mcg Route: IVP; Site: right antecubital; df1 20:50 Follow up: Response: Pain is unchanged, physician notified df1 19:58 Drug: Zofran (Ondansetron) 4 mg Route: IVP; Site: right antecubital; df1 20:49 Follow up: Response: Nausea is decreased df1 19:59 Drug: NS 0.9% 1000 ml Route: IV; Rate: 1000 ml; Site: right antecubital; df1 20:51 Follow up: IV Status: Completed infusion; IV Intake: 1000ml df1 20:00 Drug: Insulin Regular Human 10 units {Co-Signature: sj1 (Stefani Camejo RN).} Route: IVP; df1 Site: right antecubital; 22:19 Follow up: Response: Blood sugar is lowered df1 21:29 Drug: fentaNYL (PF) 25 mcg Route: IVP; Site: right antecubital; df1 22:18 Follow up: Response: No adverse reaction; Pain is decreased df1 21:29 Drug: NS 0.9% 500 ml Route: IV; Rate: bolus; Site: right antecubital; df1 22:18 Follow up: IV Status: Completed infusion; IV Intake: 500ml df1 21:29 Drug: NS 0.9% 1000 ml Route: IV; Rate: 125 ml/hr; Site: right antecubital; df1 22:18 Drug: Zofran (Ondansetron) 4 mg Route: IVP; Site: right antecubital; df1 23:38 Follow up: Response: No adverse reaction; Nausea is decreased df1 23:38 Drug: Zosyn (piperacillin-tazobactam) 3.375 grams Route: IVPB; Infused Over: 60 mins; df1 Site: right antecubital; Intake: 20:51 IV: 1000ml; Total: 1000ml. df1 22:18 IV: 500ml; Total: 1500ml. df1 Outcome: 23:22 Discharge ordered by . adalberto 09/01 00:43 Discharged to home ambulatory. df1 Condition: stable Discharge instructions given to Instructed on discharge instructions, follow up and referral plans. medication usage, Prescriptions given X 2. 00:44 Patient left the ED. df1 Signatures: Dispatcher [employer] EDMS Josiah Barney MD MD pkl Ballard, Brenda, RN RN Robert Rojas RN RN ll1 Shasha Taylor Dawn df1 Tanya Espinoza RN RN tc5 Stefani Camejo RN sj1
--- NOTE | 2021-08-31 23:23 | EDPHYS ---
Physician Documentation [facility] Name: Ara Mercado Age: 36 yrs Sex: Female : 1985 Arrival Date: 08/31/2021 Time: 18:58 Bed 16 Private MD: ED Physician Josiah Barney HPI: 08/31 21:46 This 36 yrs old Female presents to ER via Ambulatory with complaints of pkl Abdominal Pain. 21:46 The patient presents with abdominal pain in the upper abdomen, in the lower abdomen. pkl Onset: The symptoms/episode began/occurred just prior to arrival, 2 hour(s) ago. Associated signs and symptoms: Pertinent positives: nausea. 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 - Social history:: Smoking status: Patient reports the use of cigarette tobacco products, smokes one-half pack cigarettes per day. ROS: 21:46 Eyes: Negative for injury, pain, redness, and discharge, ENT: Negative for injury, pkl pain, and discharge, Neck: Negative for injury, pain, and swelling, Cardiovascular: Negative for chest pain, palpitations, and edema, Respiratory: Negative for shortness of breath, cough, wheezing, and pleuritic chest pain. 21:46 Abdomen/GI: Positive for abdominal pain, nausea, of the right upper quadrant, right lower quadrant and left lower quadrant. 21:46 Back: Negative for acute changes. 21:46 : Negative for urinary symptoms. 21:46 MS/extremity: Negative for acute changes. 21:46 Skin: Negative for rash. 21:46 Neuro: Negative for altered mental status, loss of consciousness. Exam: 21:46 Head/Face: Normocephalic, atraumatic. Eyes: Pupils equal round and reactive to light, pkl extra-ocular motions intact. Lids and lashes normal. Conjunctiva and sclera are non-icteric and not injected. Cornea within normal limits. Periorbital areas with no swelling, redness, or edema. ENT: Nares patent. No nasal discharge, no septal abnormalities noted. Tympanic membranes are normal and external auditory canals are clear. Oropharynx with no redness, swelling, or masses, exudates, or evidence of obstruction, uvula midline. Mucous membranes moist. Neck: Trachea midline, no thyromegaly or masses palpated, and no cervical lymphadenopathy. Supple, full range of motion without nuchal rigidity, or vertebral point tenderness. No Meningismus. Chest/axilla: Normal chest wall appearance and motion. Nontender with no deformity. No lesions are appreciated. Cardiovascular: Regular rate and rhythm with a normal S1 and S2. No gallops, murmurs, or rubs. Normal PMI, no JVD. No pulse deficits. Respiratory: Lungs have equal breath sounds bilaterally, clear to auscultation and percussion. No rales, rhonchi or wheezes noted. No increased work of breathing, no retractions or nasal flaring. 21:46 Abdomen/GI: Bowel sounds: normal, Palpation: soft, moderate abdominal tenderness, in the right upper quadrant, right lower quadrant and left lower quadrant. 21:46 Back: Exam negative for acute changes. 21:46 : Exam negative for acute changes. 21:46 Musculoskeletal/extremity: Exam is negative for acute changes. 21:46 Skin: Exam negative for rash. 21:46 Neuro: Orientation: is normal, Mentation: is normal, Cranial nerves: grossly normal, Motor: is normal. Vital Signs: 19:03 BP 136 / 83; Pulse 114; Resp 17; Temp 97.7; Pulse Ox 98% ; Weight 70.76 kg; Height 5 ll1 ft. 2 in. (157.48 cm); Pain 10/10; 20:01 BP 139 / 93; Pulse 97; Resp 18; Pulse Ox 97% on R/A; df1 20:51 BP 101 / 67; Pulse 94; Resp 18; Pulse Ox 99% on R/A; Pain 7/10; df1 21:30 BP 113 / 76; Pulse 92; Resp 18; Pulse Ox 97% on R/A; df1 23:08 BP 111 / 68; Pulse 88; Resp 18; Pulse Ox 100% on R/A; df1 23:58 BP 115 / 72; Pulse 91; Resp 18; Pulse Ox 98% on R/A; df1 19:03 Body Mass Index 28.53 (70.76 kg, 157.48 cm) ll1 MDM: 19:17 Patient medically screened. pkl 23:14 Data reviewed: vital signs, nurses notes, lab test result(s), radiologic studies, CT pkl scan, ultrasound. ED course: Talked to Dr. Beltre ( Surgeon ) Will see patient in his office next week.. 23:16 ED course: Discussed lab and imaging studies with patient. Advised to follow up with [facility] Dr. Beltre next week. Patient understood instructions. 08/31 19:25 Order name: Basic Metabolic Panel; Complete Time: 21:10 pkl 08/31 19:25 Order name: CBC with Diff; Complete Time: 21:10 pkl 08/31 19:25 Order name: Hepatic Function; Complete Time: 21:10 pkl 08/31 19:25 Order name: Lipase; Complete Time: 21:10 pkl 08/31 19:34 Order name: Urine Dipstick-Ancillary; Complete Time: 21:10 EDMS 08/31 19:37 Order name: Urine --Ancillary (enter results) 08/31 19:26 Order name: US Abdomen Limited; Complete Time: 21:10 pkl 08/31 19:38 Order name: Urine --Ancillary; Complete Time: 21:10 EDMS 08/31 21:18 Order name: CT Abd/Pelvis - IV Contrast Only pk 08/31 22:29 Order name: Glucose, Ancillary Testing; Complete Time: 22:53 EDMS 08/31 22:48 Order name: Glucose, Ancillary Testing; Complete Time: 22:53 EDMS 08/31 23:15 Order name: Glucose, Ancillary Testing; Complete Time: 00:27 EDMS 08/31 23:47 Order name: Glucose, Ancillary Testing; Complete Time: 00:27 EDMS 08/31 19:25 Order name: IV Saline Lock; Complete Time: 19:59 pkl 08/31 19:25 Order name: Labs collected and sent; Complete Time: 19:59 pkl 08/31 19:25 Order name: Urine Dipstick-Ancillary (obtain specimen); Complete Time: 19:36 pkl Administered Medications: 19:58 Drug: fentaNYL (PF) 25 mcg Route: IVP; Site: right antecubital; df1 20:50 Follow up: Response: Pain is unchanged, physician notified df1 19:58 Drug: Zofran (Ondansetron) 4 mg Route: IVP; Site: right antecubital; df1 20:49 Follow up: Response: Nausea is decreased df1 19:59 Drug: NS 0.9% 1000 ml Route: IV; Rate: 1000 ml; Site: right antecubital; df1 20:51 Follow up: IV Status: Completed infusion; IV Intake: 1000ml df1 20:00 Drug: Insulin Regular Human 10 units {Co-Signature: sj1 (Stefani Camejo RN).} Route: IVP; df1 Site: right antecubital; 22:19 Follow up: Response: Blood sugar is lowered df1 21:29 Drug: fentaNYL (PF) 25 mcg Route: IVP; Site: right antecubital; df1 22:18 Follow up: Response: No adverse reaction; Pain is decreased df1 21:29 Drug: NS 0.9% 500 ml Route: IV; Rate: bolus; Site: right antecubital; df1 22:18 Follow up: IV Status: Completed infusion; IV Intake: 500ml df1 21:29 Drug: NS 0.9% 1000 ml Route: IV; Rate: 125 ml/hr; Site: right antecubital; df1 22:18 Drug: Zofran (Ondansetron) 4 mg Route: IVP; Site: right antecubital; df1 23:38 Follow up: Response: No adverse reaction; Nausea is decreased df1 23:38 Drug: Zosyn (piperacillin-tazobactam) 3.375 grams Route: IVPB; Infused Over: 60 mins; df1 Site: right antecubital; Disposition Summary: 08/31/21 23:22 Discharge Ordered Location: Home pkl Condition: Stable pkl Diagnosis - Cholelithiasis. Diabetes pkl Followup: pkl - With: Tom Beltre MD - When: 5 - 6 days - Reason: Re-evaluation by your physician Discharge Instructions: - Discharge Summary Sheet pkl Forms: - Medication Reconciliation Form pkl - Thank You Letter pkl - Antibiotic Education pkl - Prescription Opioid Use pkl Prescriptions: - Augmentin 875-125 mg Oral Tablet - take 1 tablet by ORAL route every 12 hours for 7 days; 14 tablet; Refills: 0, pkl Product Selection Permitted - Glipizide 5 mg Oral Tablet - take 1 tablet by ORAL route once daily before a meal; 30 tablet; Refills: 0, pkl Product Selection Permitted Signatures: Dispatcher [employer] EDMS Josiah Barney MD MD pkl Robert Cooper RN RN ll1 Leslie Mclaughlin df1 Stefani Camejo RN sj1 Corrections: (The following items were deleted from the chart) 21:32 21:27 Chest Angio+CT.RAD.BRZ ordered. EDMS EDMS 23:21 23:21 HEMOGLOBIN A1C+CHEM A1C.LAB.BRZ ordered. EDMS EDMS
[2021-08-31] MEDS ORDERED: NA CHLORIDE 0.9% 100 ML ONE (23:50)
[2021-08-31] MEDS ORDERED: PIPERACIL/TAZO 3.375 GM VIAL IV ONE (23:50)
[2021-09-01] MEDS ORDERED: FENTANYL CITR 100 MCG/2 ML ONE (00:32)
[2021-09-01 00:58] VITALS: TEMP 97.7
[2021-09-01 01:05] VITALS: BP 115/72; O2SAT 98
--- NOTE | 2021-09-01 21:57 | RAD REPORT ---
EXAM DESCRIPTION: CT ABDOMEN AND PELVIS WITH CONTRAST. CLINICAL HISTORY: Abdominal pain. COMPARISON: CT abdomen and pelvis 06/02/2021. TECHNIQUE: Axial CT imaging of the abdomen and pelvis performed with intravenous contrast. Reformatt ed coronal and sagittal images reviewed. Arterial and venous phase imaging completed. A dose reduction technique was utilized with automated exposure control according to patient size. FINDINGS: Clear lung bases. Heart is normal in size. Unremarkable liver. Gallbladder contains numerous cholesterol stones without evidence of cholecystiti s or biliary dilatation. Normal spleen and pancreas. Normal adrenal glands. There are faint areas of cortical hypoattenuation within the lateral right kidney and superior pole and posterior cortex of th e left kidney compatible with early/mild pyelonephritis. No hydronephrosis, stone or mass. Normal aorta and inferior vena cava caliber. No retroperitoneal lymphadenopathy. Mesenteric vessels a re well-opacified. Unremarkable stomach. Small bowel loops appear normal. Normal appendix in the right lower quadrant. C olon appears normal. There is no ascites or free air. Normal bladder, uterus, and ovaries. Unremarkable spine, sacrum, bon y pelvis, hips. IMPRESSION: 1. Mild bilateral pyelonephritis. 2. Cholelithiasis without cholecystitis. Electronically signed by: Lisa Chan DO 08/31/2021 10:47 PM CDT Due to temporary technical issues with the PACS/Fluency reporting system, reports are being signed by the in house radiologists without review as a courtesy to insure prompt reporting. The interpreting radiologist is fully responsible for the content of the report.
== END 2021-09-01 00:44 | disposition home or self-care (01) ==
LOC: ER 18:52
DX: K80.20 Calculus of gallbladder without cholecystitis without obstruction (principal); E11.9 Type 2 diabetes mellitus without complications; F17.210 Nicotine dependence, cigarettes, uncomplicated; Z88.1 Allergy status to other antibiotic agents; Z88.5 Allergy status to narcotic agent
CPT/HCPCS: 36415; 74177; 76705; 80048; 80076; 81003; 81025; 82947; 83690; 85025; 96361; 96374; 96375; 99284; J2405; J2543; J3010; J7030; J7040; Q9967

== ENCOUNTER 2021-09-10 17:15 | Emergency (ER) | payer SELFPAY ==
[2021-09-10 18:11] LABS: Urine Blood Negative (Negative); Urine Glucose 2+ (Negative); Urine Protein Negative (Negative); Urine Specific Gravity 1.015 (1.005-1.030); Urine pH 5.5 (5.0-7.0)
[2021-09-10 18:28] LABS: Urine Specific Gravity/Preg 1.015 (1.005-1.030)
[2021-09-10 18:50] LABS: Absolute Lymphocytes (CBC) 2.9 K/uL (0.7-4.9); Hematocrit 37.3 % (36.0-45.0); Lymphocytes % 24.4 % (15.3-44.8); RBC Red Blood Cell Count 4.27 M/uL (3.86-4.86)
[2021-09-10] MEDS ORDERED: FENTANYL CITR 100 MCG/2 ML ONE ×2 (19:11→21:04)
[2021-09-10] MEDS ORDERED: NA CHLORIDE 0.9% 1,000 ML ONE (19:11)
[2021-09-10] MEDS ORDERED: ONDANSETRON 4 MG/2 ML VIAL ONE (19:11)
--- NOTE | 2021-09-10 19:15 | RAD REPORT ---
EXAM DESCRIPTION: US - Abdomen Exam Limited - 09/10/2021 6:26 pm CLINICAL HISTORY: ABD PAIN COMPARISON: Abdomen Exam Limited dated 09/07/2021 FINDINGS: Multiple variably sized gallstones are present filling most of the gallbladder lumen. Gall bladder is not dilated. There is no wall thickening or pericholecystic fluid. No common duct stone or biliary tree dilatation identified. IMPRESSION: Cholelithiasis without evidence for acute cholecystitis. No biliary tree abnormality.
[2021-09-10 20:27] LABS: ALT/SGPT 11 U/L (12-78); AST/SGOT 13 U/L (15-37); Albumin 3.4 g/dL (3.4-5.0); Alkaline Phosphatase 93 U/L (45-117); BUN Blood Urea Nitrogen 7 mg/dL (7-18); Bicarbonate 27 mmol/L (21-32); Bilirubin Direct < 0.1 mg/dL (0-0.2); Bilirubin Total 0.2 mg/dL (0.2-1.0); Glucose Level 296 mg/dL (74-106); Lipase 137 U/L (73-393); Potassium 4.3 mmol/L (3.5-5.1); Protein, Total 7.1 g/dL (6.4-8.2); Sodium Level 139 mmol/L (136-145)
--- NOTE | 2021-09-10 20:41 | ER ---
Nurse's Notes [facility] Name: Ara Mercado Age: 36 yrs Sex: Female : 1985 Arrival Date: 09/10/2021 Time: 17:28 Bed External Waiting Private MD: Diagnosis: Other cholelithiasis without obstruction Presentation: 09/10 17:35 Chief complaint: Patient states: right upper and lower quadrant abdominal pain, lower ld1 right side back pain. Coronavirus screen: At this time, the client does not indicate any symptoms associated with coronavirus-19. Ebola Screen: No symptoms or risks identified at this time. Initial Sepsis Screen: Does the patient meet any 2 criteria? No. Patient's initial sepsis screen is negative. Does the patient have a suspected source of infection? No. Patient's initial sepsis screen is negative. Risk Assessment: Do you want to hurt yourself or someone else? Patient reports no desire to harm self or others. Onset of symptoms was September 10, 2021. 17:35 Method Of Arrival: Ambulatory ld1 17:35 Acuity: CHARISSA 3 ld1 Triage Assessment: 17:38 General: Appears in no apparent distress. uncomfortable, Behavior is calm, cooperative, ld1 appropriate for age. Pain: Complains of pain in right mid back, right low back, right upper quadrant and right lower quadrant Pain does not radiate. Pain currently is 9 out of 10 on a pain scale. Quality of pain is described as stabbing, throbbing, Pain began Friday09/05/2021 Is continuous. EENT: No signs and/or symptoms were reported regarding the EENT system. Neuro: Level of Consciousness is awake, alert, obeys commands, Oriented to person, place, time, situation. Cardiovascular: Capillary refill < 3 seconds Patient's skin is warm and dry. Respiratory: Airway is patent Respiratory effort is even, unlabored, Respiratory pattern is regular, symmetrical. GI: Abdomen is non-distended, obese. : No signs and/or symptoms were reported regarding the genitourinary system. Derm: No signs and/or symptoms reported regarding the dermatologic system. Musculoskeletal: No signs and/or symptoms reported regarding the musculoskeletal system. 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 - Social history:: Smoking status: Patient reports the use of cigarette tobacco products, smokes one-half pack cigarettes per day, Patient/guardian denies using alcohol, street drugs. Screenin:45 Abuse screen: Denies threats or abuse. Denies injuries from another. Nutritional bp screening: No deficits noted. Tuberculosis screening: No symptoms or risk factors identified. Fall Risk None identified. Assessment: 17:45 General: SEE TRIAGE NOTE. bp 18:45 Reassessment: No changes from previously documented assessment. Patient and/or family bp updated on plan of care and expected duration. Pain level reassessed. U/S COMPLETE. Vital Signs: 17:35 BP 114 / 88; Pulse 107; Resp 18; Temp 99.7(O); Pulse Ox 98% on R/A; Weight 70.76 kg; ld1 Height 5 ft. 2 in. (157.48 cm); Pain 9/10; 18:45 BP 130 / 82; Pulse 91; Resp 16; Pulse Ox 99% ; bp 19:56 BP 128 / 83; Pulse 88; Resp 18; Pulse Ox 100% on R/A; df1 17:35 Body Mass Index 28.53 (70.76 kg, 157.48 cm) ld1 ED Course: 17:28 Patient arrived in ED. ds1 17:32 Celina Driver FNP-C is PHCP. kb 17:32 Scott Mcbride MD is Attending Physician. kb 17:38 Triage completed. ld1 17:38 Arm band placed on right wrist. ld1 17:58 Ad Mancilla, RN is Primary Nurse. bp 18:01 Patient placed in an exam room, on a stretcher. ll1 18:15 Patient has correct armband on for positive identification. Placed in gown. Bed in low mh5 position. Call light in reach. Side rails up X 1. Warm blanket given. Pulse ox on. NIBP on. 18:22 US Abdomen Limited Sent. mh5 18:26 US Abdomen Limited In Process Unspecified. EDMS 18:45 Inserted saline lock: 22 gauge in right forearm, using aseptic technique. Blood bp collected. 21:16 No provider procedures requiring assistance completed. IV discontinued, intact. df1 Administered Medications: 18:45 Drug: NS 0.9% 1000 ml Route: IV; Rate: 1000 ml; Site: right forearm; bp 18:45 Drug: Zofran (Ondansetron) 4 mg Route: IVP; Site: right forearm; bp 18:45 Drug: fentaNYL (PF) 25 mcg Route: IVP; Site: right forearm; bp 20:40 Drug: fentaNYL (PF) 25 mcg Route: IVP; Site: right antecubital; df1 21:16 Follow up: Response: Pain is decreased df1 Outcome: 20:40 Discharge ordered by . kb 21:16 Discharged to home ambulatory. df1 21:16 Condition: good 21:16 Discharge instructions given to patient, Instructed on discharge instructions, follow up and referral plans. medication usage, Demonstrated understanding of instructions, follow-up care, medications, Prescriptions given X 2. 21:19 Patient left the ED. df1 Signatures: Dispatcher [employer] EDMS Celina Driver, RUNNER ONIvonneC RUNNER ON-Betsey Suarez ds1 Mariah Land [facility] Ad Mancilla RN RN bp Lewis, Lynsay, RN RN 1 Linsey Nelson RN RN ld1 Leslie Mclaughlin df1
--- NOTE | 2021-09-10 20:41 | EDPHYS ---
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 17:49 The patient presents with abdominal pain in the right upper quadrant. The patient has kb not recently seen a physician. 17:49 Onset: The symptoms/episode began/occurred 4 day(s) ago. The symptoms radiate to right kb mid back. Associated signs and symptoms: none. The symptoms are described as constant. Modifying factors: The symptoms are alleviated by nothing, the symptoms are aggravated by nothing. Severity of pain: At its worst the pain was moderate in the emergency department the pain is unchanged. The patient has not experienced similar symptoms in the past. Pt states she is having gallbladder pain. States it started 5 days ago, was seen here and the surgeon gave her the option of staying or following outpatient. Pt went home, but states the pain hasn't gotten any better. . 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 - Social history:: Smoking status: Patient reports the use of cigarette tobacco products, smokes one-half pack cigarettes per day, Patient/guardian denies using alcohol, street drugs. ROS: 17:48 Constitutional: Negative for fever, chills, and weight loss. kb 17:48 Abdomen/GI: Positive for abdominal pain, Negative for nausea, vomiting, and diarrhea. 17:48 All other systems are negative. Exam: 17:48 Constitutional: This is a well developed, well nourished patient who is awake, alert, kb and in no acute distress. Head/Face: Normocephalic, atraumatic. ENT: Moist Mucous membranes Respiratory: Respirations even and unlabored. No increased work of breathing, no retractions or nasal flaring. Skin: Warm, dry with normal turgor. Normal color. MS/ Extremity: Pulses equal, no cyanosis. Neurovascular intact. Full, normal range of motion. Neuro: Awake and alert, GCS 15, oriented to person, place, time, and situation. Moves all extremities. Normal gait. Psych: Awake, alert, with orientation to person, place and time. Behavior, mood, and affect are within normal limits. 17:48 Abdomen/GI: Inspection: abdomen appears normal, Bowel sounds: normal, in all quadrants, Palpation: soft, in all quadrants, moderate abdominal tenderness, in the right upper quadrant, left upper quadrant and right lower quadrant. Vital Signs: 17:35 BP 114 / 88; Pulse 107; Resp 18; Temp 99.7(O); Pulse Ox 98% on R/A; Weight 70.76 kg; ld1 Height 5 ft. 2 in. (157.48 cm); Pain 9/10; 18:45 BP 130 / 82; Pulse 91; Resp 16; Pulse Ox 99% ; bp 19:56 BP 128 / 83; Pulse 88; Resp 18; Pulse Ox 100% on R/A; df1 17:35 Body Mass Index 28.53 (70.76 kg, 157.48 cm) ld1 MDM: 17:42 Patient medically screened. kb 17:48 Data reviewed: vital signs, nurses notes. Data interpreted: Pulse oximetry: on room air kb is 98 %. Interpretation: normal. 20:38 Counseling: I had a detailed discussion with the patient and/or guardian regarding: the kb historical points, exam findings, and any diagnostic results supporting the discharge/admit diagnosis, lab results, radiology results, the need for outpatient follow up, a general surgeon, to return to the emergency department if symptoms worsen or persist or if there are any questions or concerns that arise at home. ED course: Pt will call Dr Beltre's office in the morning for appt. . 09/10 17:34 Order name: Basic Metabolic Panel; Complete Time: 20:32 kb 09/10 17:34 Order name: CBC with Diff; Complete Time: 19:37 kb 09/10 17:34 Order name: Hepatic Function; Complete Time: 20:32 kb 09/10 17:34 Order name: Lipase; Complete Time: 20:32 kb 09/10 18:11 Order name: Urine Dipstick-Ancillary; Complete Time: 18:13 EDMS 09/10 18:11 Order name: Urine --Ancillary (enter results); Complete Time: 18:30 bd 09/10 17:34 Order name: IV Saline Lock; Complete Time: 18:38 kb 09/10 17:34 Order name: Labs collected and sent; Complete Time: 18:38 kb 09/10 17:34 Order name: US Abdomen Limited; Complete Time: 19:16 kb 09/10 18:55 Order name: Labs - recollect needed: recollect lavender top; Complete Time: 20:33 bd Administered Medications: 18:45 Drug: NS 0.9% 1000 ml Route: IV; Rate: 1000 ml; Site: right forearm; bp 18:45 Drug: Zofran (Ondansetron) 4 mg Route: IVP; Site: right forearm; bp 18:45 Drug: fentaNYL (PF) 25 mcg Route: IVP; Site: right forearm; bp 20:40 Drug: fentaNYL (PF) 25 mcg Route: IVP; Site: right antecubital; df1 21:16 Follow up: Response: Pain is decreased df1 Disposition: 09/11 14:24 Co-signature as Attending Physician, Scott Mcbride MD I agree with the assessment and sp3 plan of care. Disposition Summary: 09/10/21 20:40 Discharge Ordered Location: Home kb Condition: Stable kb Diagnosis - Other cholelithiasis without obstruction kb Followup: kb - With: Emergency Department - When: As needed - Reason: Worsening of condition Followup: kb - With: Private Physician - When: 2 - 3 days - Reason: Recheck today's complaints, Continuance of care, Re-evaluation by your physician Discharge Instructions: - Discharge Summary Sheet kb - Cholelithiasis, [id number] kb Forms: - Medication Reconciliation Form kb - Thank You Letter kb - Antibiotic Education kb - Prescription Opioid Use kb Prescriptions: - Zofran 4 mg Oral Tablet - take 1 tablet by ORAL route every 6 hours As needed; 20 tablet; Refills: 0, kb Product Selection Permitted - dicyclomine 20 mg Oral Tablet - take 1 tablet by ORAL route every 6 hours As needed; 20 tablet; Refills: 0, kb Product Selection Permitted Signatures: Dispatcher [employer] Celina Diana, ADALI BREAD WRAPPING MACHINE FEEDER-Lynn Raines Brian, RN RN bp Linsey Nelson RN RN ld1 Scott Mcbride MD MD sp3 Leslie Mclaughlin df1
[2021-09-10 21:26] VITALS: TEMP 99.7
[2021-09-10 21:30] VITALS: BP 128/83; O2SAT 100
== END 2021-09-10 21:19 | disposition home or self-care (01) ==
LOC: ER 17:15
DX: K80.80 Other cholelithiasis without obstruction (principal); E11.9 Type 2 diabetes mellitus without complications; F17.210 Nicotine dependence, cigarettes, uncomplicated; Z88.1 Allergy status to other antibiotic agents; Z88.5 Allergy status to narcotic agent; Z88.8 Allergy status to other drugs, medicaments and biological substances
CPT/HCPCS: 36415; 76705; 80048; 80076; 81003; 81025; 83690; 85025; 99284; J2405; J3010; J7030

== ENCOUNTER 2021-09-18 20:31 | Emergency (ER) | payer SELFPAY ==
[2021-09-18 21:34] LABS: Urine Blood Trace-intact (Negative); Urine Glucose 3+ (Negative); Urine Protein Negative (Negative); Urine Specific Gravity 1.015 (1.005-1.030)
[2021-09-18 21:47] LABS: Absolute Lymphocytes (CBC) 2.4 K/uL (0.7-4.9); Basophils % 0.7 % (0-1.3); Hematocrit 38.8 % (36.0-45.0); Lymphocytes % 23.7 % (15.3-44.8); MPV 7.6 fL (7.6-11.3); RBC Red Blood Cell Count 4.39 M/uL (3.86-4.86)
[2021-09-18] MEDS ORDERED: NA CHLORIDE 0.9% 1,000 ML ONE (22:07)
[2021-09-18] MEDS ORDERED: MORPHINE 4 MG/ML SYR ONE (22:07)
[2021-09-18] MEDS ORDERED: ONDANSETRON 4 MG/2 ML VIAL ONE (22:07)
[2021-09-18] MEDS ORDERED: MEPERIDINE HCL 25 MG/ML SYR ONE (22:11)
[2021-09-18 22:15] LABS: ALT/SGPT 12 U/L (12-78); AST/SGOT 10 U/L (15-37); Albumin 3.4 g/dL (3.4-5.0); Alkaline Phosphatase 107 U/L (45-117); BUN Blood Urea Nitrogen 7 mg/dL (7-18); Bicarbonate 28 mmol/L (21-32); Bilirubin Direct < 0.1 mg/dL (0-0.2); Bilirubin Total 0.3 mg/dL (0.2-1.0); Lipase 179 U/L (73-393); Potassium 3.9 mmol/L (3.5-5.1); Protein, Total 7.6 g/dL (6.4-8.2); Sodium Level 139 mmol/L (136-145)
[2021-09-18 22:21] LABS: Glucose Level 434 mg/dL (74-106)
[2021-09-18] MEDS ORDERED: FAMOTIDINE 20 MG/2 ML VIAL IV ONE (22:29)
[2021-09-18] MEDS ORDERED: Levofloxacin500mg IV 500 MG/100 ML BAG IV ONE (22:29)
[2021-09-18] MEDS ORDERED: INSULIN GLARGINE 100 UNITS/ML SQ ONE (22:56)
[2021-09-18] MEDS ORDERED: INSULIN -REGULAR HUMAN 50 UNIT/0.5 ML ML ONE (22:57)
--- NOTE | 2021-09-19 00:20 | EDPHYS ---
Physician Documentation [facility] Name: Ara Mercado Age: 36 yrs Sex: Female : 1985 Arrival Date: 09/18/2021 Time: 20:36 Bed 23 Private MD: ZACHARY Physician Rashad Melgoza HPI: 09/18 21:50 This 36 yrs old Female presents to ER via Ambulatory with complaints of bobbi Abdominal Pain, Flank Pain, Nausea/Vomiting. 21:50 The patient presents with abdominal pain in the upper abdomen, in the lower abdomen, bobbi abdominal distention in the upper abdomen, in the lower abdomen. Onset: The symptoms/episode began/occurred yesterday. The patient complains of pain in the left mid back. The pain radiates to the left mid back. Onset: The symptoms/episode began/occurred yesterday. Modifying factors: The symptoms are alleviated by nothing. the symptoms are aggravated by nothing. Associated signs and symptoms: Pertinent positives: nausea. 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 - Social history:: Smoking status: Patient reports the use of cigarette tobacco products, smokes one pack cigarettes per day. Patient/guardian denies using alcohol, street drugs. - Family history:: not pertinent. ROS: 21:50 Constitutional: Negative for fever, chills, and weight loss, Eyes: Negative for injury, bobbi pain, redness, and discharge, ENT: Negative for injury, pain, and discharge, Neck: Negative for injury, pain, and swelling, Cardiovascular: Negative for chest pain, palpitations, and edema, Respiratory: Negative for shortness of breath, cough, wheezing, and pleuritic chest pain, Back: Negative for injury and pain, : Negative for injury, bleeding, discharge, and swelling, MS/Extremity: Negative for injury and deformity, Skin: Negative for injury, rash, and discoloration, Neuro: Negative for headache, weakness, numbness, tingling, and seizure, Psych: Negative for depression, anxiety, suicide ideation, homicidal ideation, and hallucinations, Allergy/Immunology: Negative for hives, rash, and allergies, Endocrine: Negative for neck swelling, polydipsia, polyuria, polyphagia, and marked weight changes, Hematologic/Lymphatic: Negative for swollen nodes, abnormal bleeding, and unusual bruising. 21:50 Abdomen/GI: Positive for abdominal pain, nausea and vomiting, of the right upper quadrant, left upper quadrant, right lower quadrant and left lower quadrant. Exam: 21:50 Constitutional: This is a well developed, well nourished patient who is awake, alert, bobbi and in no acute distress. Head/Face: Normocephalic, atraumatic. Eyes: Pupils equal round and reactive to light, extra-ocular motions intact. Lids and lashes normal. Conjunctiva and sclera are non-icteric and not injected. Cornea within normal limits. Periorbital areas with no swelling, redness, or edema. ENT: Nares patent. No nasal discharge, no septal abnormalities noted. Tympanic membranes are normal and external auditory canals are clear. Oropharynx with no redness, swelling, or masses, exudates, or evidence of obstruction, uvula midline. Mucous membranes moist. Neck: Trachea midline, no thyromegaly or masses palpated, and no cervical lymphadenopathy. Supple, full range of motion without nuchal rigidity, or vertebral point tenderness. No Meningismus. Chest/axilla: Normal chest wall appearance and motion. Nontender with no deformity. No lesions are appreciated. Cardiovascular: Regular rate and rhythm with a normal S1 and S2. No gallops, murmurs, or rubs. Normal PMI, no JVD. No pulse deficits. Respiratory: Lungs have equal breath sounds bilaterally, clear to auscultation and percussion. No rales, rhonchi or wheezes noted. No increased work of breathing, no retractions or nasal flaring. Abdomen/GI: Soft, non-tender, with normal bowel sounds. No distension or tympany. No guarding or rebound. No evidence of tenderness throughout. Back: No spinal tenderness. No costovertebral tenderness. Full range of motion. Skin: Warm, dry with normal turgor. Normal color with no rashes, no lesions, and no evidence of cellulitis. MS/ Extremity: Pulses equal, no cyanosis. Neurovascular intact. Full, normal range of motion. Neuro: Awake and alert, GCS 15, oriented to person, place, time, and situation. Cranial nerves II-XII grossly intact. Motor strength 5/5 in all extremities. Sensory grossly intact. Cerebellar exam normal. Normal gait. Psych: Awake, alert, with orientation to person, place and time. Behavior, mood, and affect are within normal limits. Vital Signs: 20:57 BP 137 / 91; Pulse 84; Resp 18 S; Temp 98.7; Pulse Ox 98% on R/A; Weight 72.57 kg (R); 1 Height 5 ft. 2 in. (157.48 cm) (R); Pain 09/02; 21:14 BP 154 / 94; Pulse 82; Resp 20; Pulse Ox 100% on R/A; cc4 21:30 BP 169 / 86; Pulse 81; Resp 18; Pulse Ox 100% on R/A; cc4 22:30 BP 163 / 96; Pulse 82; Resp 20; Pulse Ox 100% on R/A; cc4 23:50 BP 155 / 93; Pulse 86; Resp 20; Pulse Ox 100% on R/A; cc4 09/19 00:35 BP 134 / 76; Pulse 82; Resp 20; Temp 98.5; Pulse Ox 100% on R/A; cc4 09/18 20:57 Body Mass Index 29.26 (72.57 kg, 157.48 cm) [facility] MDM: 09/18 21:15 Patient medically screened. bobbi 21:52 Differential diagnosis: pancreatitis, appendicitis, bowel obstruction, coronary artery bobbi disease, cholecystitis, Cholelithiasis, diverticulitis, gastritis. Data reviewed: vital signs, nurses notes, lab test result(s), radiologic studies, CT scan. Data interpreted: ekg monitor: rate is 84 beats/min, rhythm is regular, Pulse oximetry: on room air is 98 %. Counseling: I had a detailed discussion with the patient and/or guardian regarding: the historical points, exam findings, and any diagnostic results supporting the discharge/admit diagnosis, lab results, radiology results. 09/18 21:17 Order name: Basic Metabolic Panel; Complete Time: 22:38 [facility] 09/18 21:17 Order name: CBC with Diff; Complete Time: 22:20 [facility] 09/18 21:17 Order name: Hepatic Function; Complete Time: 22:38 [facility] 09/18 21:17 Order name: Lipase; Complete Time: 22:38 [facility] 09/18 21:34 Order name: Urine Dipstick-Ancillary; Complete Time: 21:48 EDWA 09/18 21:50 Order name: CT Abd/Pelvis - IV Contrast Only [facility] 09/18 22:08 Order name: COVID-19 (Coronavirus) Document "Date of Onset" if Symptomatic em 09/18 22:31 Order name: SARS-COV-2 RT PCR EDWA 09/18 23:51 Order name: Glucose, Ancillary Testing; Complete Time: 00:03 EDWA 09/18 21:17 Order name: IV Saline Lock; Complete Time: 21:37 [facility] 09/18 21:17 Order name: Labs collected and sent; Complete Time: 21:38 [facility] 09/18 21:17 Order name: Urine Test (obtain specimen); Complete Time: 21:38 [facility] 09/18 21:17 Order name: Urine Dipstick-Ancillary (obtain specimen); Complete Time: 21:38 [facility] 09/19 00:06 Order name: Blood Glucose Level bobbi Administered Medications: 21:50 Drug: NS 0.9% 1000 ml Route: IV; Rate: 1 bolus; Site: right antecubital; [facility] 09/19 00:35 Follow up: IV Status: Completed infusion; IV Intake: 1000ml [facility] 01:09 Follow up: IV Status: Completed infusion; IV Intake: 1000ml [facility] 09/18 21:50 Drug: Zofran (Ondansetron) 4 mg Route: IVP; Site: right antecubital; 4 09/19 00:35 Follow up: Response: No adverse reaction; Nausea is decreased [facility] 09/18 21:50 Drug: Demerol (meperidine) 25 mg Route: IVP; Site: right antecubital; 4 09/19 00:35 Follow up: Response: No adverse reaction; Pain is decreased [facility] 09/18 21:59 CANCELLED (Duplicate Order): Demerol (meperidine) 25 mg IVP once; RASS on ADMIN: cc4 Combtv4, Very Agttd3, Agttd2, Rstlss1, AlertClm0, Drwsy-1, Lt Sdtn-2, Mod Sdtn-3, Dp Sdtn-4, UnArsble-5 22:05 Drug: levofloxacin 500 mg Volume: 100 ml; Route: IVPB; Infused Over: 60 mins; Site: cc4 right antecubital; 09/19 00:35 Follow up: Urine output 350 ml; Response: No adverse reaction; IV Status: Completed cc4 infusion; IV Intake: 100ml 09/18 22:05 Drug: Pepcid (famotidine) 20 mg Route: IVP; Site: right antecubital; cc4 09/19 00:35 Follow up: Response: No adverse reaction; Pain is decreased cc4 09/18 22:33 Drug: Insulin Regular Human 10 units {Co-Signature: ld1 (Linsey Nelson RN).} Route: cc4 IVP; Site: right antecubital; 09/19 00:35 Follow up: Response: No adverse reaction; Blood sugar is lowered cc4 09/18 22:33 Drug: LanTUS (insulin glargine) 30 units Route: Sub-Q; Site: right upper arm; cc4 09/19 00:35 Follow up: Response: No adverse reaction; Blood sugar is lowered cc4 00:05 Drug: Demerol (meperidine) 25 mg Route: IVP; Site: right antecubital; cc4 00:35 Follow up: Response: No adverse reaction; Pain is decreased cc4 00:05 Drug: Zofran (Ondansetron) 4 mg Route: IVP; Site: right antecubital; cc4 00:35 Follow up: Response: No adverse reaction; Nausea is decreased cc4 01:03 Not Given (Discharged homee): NS 0.9% 1000 ml IV at 1 bolus Per protocol; 1000 mL bolus cc4 Disposition Summary: 09/19/21 00:20 Discharge Ordered Location: Home bobbi Problem: new bobbi Symptoms: have improved bobbi Condition: Stable bobbi Diagnosis - Type 1 diabetes mellitus with hyperglycemia bobbi - Other cholelithiasis without obstruction bobbi - Abdominal pain, Generalized bobbi - Vomiting bobbi - Nausea with vomiting, unspecified bobbi Followup: bobbi - With: Private Physician - When: 2 - 3 days - Reason: Recheck today's complaints, Continuance of care, Re-evaluation by your physician Followup: bobbi - With: Tom Beltre MD - When: 2 - 3 days - Reason: Recheck today's complaints, Continuance of care, Re-evaluation by your physician Discharge Instructions: - Discharge Summary Sheet bobbi - Abdominal Pain, Adult bobbi - Hyperglycemia bobbi - Nausea and Vomiting, Adult bobbi - Cholelithiasis bobbi - Cholelithiasis, [id number] bobbi - Nausea and Vomiting, Adult, [id number] [facility] Forms: - Medication Reconciliation Form [facility] - Thank You Letter [facility] - Antibiotic Education [facility] - Prescription Opioid Use [facility] Prescriptions: - Pepcid 20 mg Oral Tablet - take 1 tablet by ORAL route every 12 hours for 15 days; 30 tablet; Refills: 0, [facility] Product Selection Permitted - Zofran 4 mg Oral Tablet - take 1 tablet by ORAL route every 12 hours As needed; 20 tablet; Refills: 0, [facility] Product Selection Permitted - dicyclomine 20 mg Oral Tablet - take 1 tablet by ORAL route 4 times per day; 28 tablet; Refills: 0, Product [facility] Selection Permitted Signatures: Dispatcher [employer] EDRashad Hutchison MD MD cha Attema, Lee, DUST MOP MAKER-C DUST MOP MAKER-Cla1 Zunilda Bob RN RN cc4 Stefani Camejo RN RN sj1 Linsey Nelson RN ld1 Corrections: (The following items were deleted from the chart) 09/18 21:59 21:58 Demerol (meperidine) 25 mg IVP once; RASS on ADMIN: Combtv4, Very Agttd3, Agttd2, cc4 Rstlss1, AlertClm0, Drwsy-1, Lt Sdtn-2, Mod Sdtn-3, Dp Sdtn-4, UnArsble-5 ordered. cc 21:59 21:58 Demerol (meperidine) 25 mg IVP once; RASS on ADMIN: Combtv4, Very Agttd3, Agttd2, cc4 Rstlss1, AlertClm0, Drwsy-1, Lt Sdtn-2, Mod Sdtn-3, Dp Sdtn-4, UnArsble-5 given. cc 21:59 21:59 Demerol (meperidine) 25 mg IVP once; RASS on ADMIN: Combtv4, Very Agttd3, Agttd2, cc4 Rstlss1, AlertClm0, Drwsy-1, Lt Sdtn-2, Mod Sdtn-3, Dp Sdtn-4, UnArsble-5 ordered. cc4 22:31 22:30 CORONAVIRUS ordered. EDMS EDMS
--- NOTE | 2021-09-19 00:20 | ER ---
Nurse's Notes [facility] Name: Ara Mercado Age: 36 yrs Sex: Female : 1985 Arrival Date: 09/18/2021 Time: 20:36 Bed 23 Private MD: Diagnosis: Type 1 diabetes mellitus with hyperglycemia;Other cholelithiasis without obstruction;Abdominal pain, Generalized;Vomiting;Nausea with vomiting, unspecified Presentation: 09/18 20:57 Chief complaint: Patient states: c/o of nausea, vomiting, and bilat flank / back pain sj1 since yesterday. Hx of gallstones. Coronavirus screen: Vaccine status: Patient reports receiving the 2nd dose of the covid vaccine. Ebola Screen: No symptoms or risks identified at this time. Initial Sepsis Screen: Does the patient meet any 2 criteria? No. Patient's initial sepsis screen is negative. Does the patient have a suspected source of infection? No. Patient's initial sepsis screen is negative. Risk Assessment: Do you want to hurt yourself or someone else? Patient reports no desire to harm self or others. Onset of symptoms was September 17, 2021. 20:57 Method Of Arrival: Ambulatory [facility] 20:57 Acuity: CHARISSA 3 sj1 Triage Assessment: 21:01 General: Appears uncomfortable, Behavior is cooperative, appropriate for age. Pain: sj1 Complains of pain in bilat flank pain Pain radiates to abdomen Pain currently is 10 out of 10 on a pain scale. at worst was 10 out of 10 on a pain scale. level that patient reports is acceptable is 0 out of 10 on a pain scale. Quality of pain is described as aching, Pain began 1 day ago. Is continuous. Neuro: Level of Consciousness is awake, alert, obeys commands, Oriented to person, place, time, situation. GI: Reports lower abdominal pain, nausea, vomiting. : No signs and/or symptoms were reported regarding the genitourinary system. MAT ROLLER: 21:01 LMP 09/14/2021 sj1 Historical: - Allergies: 21:01 Amoxicillin; sj1 21:01 Bactrim; sj1 21:01 Flagyl; sj1 21:01 Morphine; sj1 21:01 Toradol; sj1 21:01 tramadol; sj1 - Home Meds: 21:01 gabapentin 300 mg Oral cap 1 cap 3 times per day [Active]; sj1 - PMHx: 21:01 diabetes mellitus; gallstone; neuropathy; sj1 - PSHx: 21:01 None; sj1 - Immunization history:: Adult Immunizations up to date. - Social history:: Smoking status: Patient reports the use of cigarette tobacco products, smokes one pack cigarettes per day. Patient/guardian denies using alcohol, street drugs. - Family history:: not pertinent. Screenin:03 Abuse screen: Denies threats or abuse. Denies injuries from another. Nutritional sj1 screening: No deficits noted. Tuberculosis screening: No symptoms or risk factors identified. Fall Risk None identified. Assessment: 21:04 GI: Abdomen is tender to palpation. sj1 21:17 General: Appears distressed, uncomfortable, Behavior is cooperative. Pain: Complains of cc4 pain in right upper quadrant abdomen and right mid back from right upper quad abdomen into right mid back. Neuro: No deficits noted. Level of Consciousness is awake, alert, obeys commands, Oriented to person, place, time, situation. Cardiovascular: No deficits noted. Denies chest pain. Respiratory: No deficits noted. Airway is patent Breath sounds are clear bilaterally. GI: Abdomen is non-distended, Bowel sounds present X 4 quads. Abd is soft X 4 quads Abdomen is tender to palpation in epigastric area and right upper quadrant Reports upper abdominal pain, nausea. : Denies burning with urination. EENT: No deficits noted. Eyes Clear. Clear. Derm: No deficits noted. Skin is intact. Musculoskeletal: No deficits noted. Capillary refill < 3 seconds, Range of motion: intact in all extremities. 21:17 General: # 22 g angiocath saline lock inserted right AC x 1 attempt with no difficulty cc4 per Luis, charge nurse; blood collected \\T\\ sent to lab; urine obtained with dipstick and test done-negative;; IV NS hung to saline lock \\T\\ bolus rate with no infiltration noted ; medicated for pain \\T\\ nausea as ordered; monitor applied with NSR noted with no ectopy noted.. 22:00 Reassessment: Reports right upper abd. pain \\T\\ back pain decreased to "6" on pain scale cc4 with decreased nausea; eating ice chips with no vomiting. 23:40 General: Accucheck glucose 206.. cc4 09/19 00:05 Reassessment: Tearful; awake/alert; c/o right upper abdominal quad pain; Demerol 25mg \\T\\ cc4 Zofran 4mg given slow IVP; IV NS patent \\T\\ bolus rate with no s/sx's of infection/infiltration right arm AC; VSS. Pain: Complains of pain in right upper quadrant and abdomen Pain radiates to right mid back Pain currently is 10 out of 10 on a pain scale. Quality of pain is described as aching, crampy, Pain began Intermittent for months. Is continuous, Alleviated by nothing. Aggravated by eating. 00:35 Reassessment: Reports right upper quad abdominal pain \\T\\ back pain decreased to "7" on cc4 pain scale; voices no c/o nausea; Rx' s 3 + discharge instructions given with V/U; IV D/C'd right AC with no bleeding noted; NAD; VSS. Vital Signs: 09/18 20:57 BP 137 / 91; Pulse 84; Resp 18 S; Temp 98.7; Pulse Ox 98% on R/A; Weight 72.57 kg (R); 1 Height 5 ft. 2 in. (157.48 cm) (R); Pain 10/10; 21:14 BP 154 / 94; Pulse 82; Resp 20; Pulse Ox 100% on R/A; cc4 21:30 BP 169 / 86; Pulse 81; Resp 18; Pulse Ox 100% on R/A; cc4 22:30 BP 163 / 96; Pulse 82; Resp 20; Pulse Ox 100% on R/A; cc4 23:50 BP 155 / 93; Pulse 86; Resp 20; Pulse Ox 100% on R/A; cc4 09/19 00:35 BP 134 / 76; Pulse 82; Resp 20; Temp 98.5; Pulse Ox 100% on R/A; cc4 09/18 20:57 Body Mass Index 29.26 (72.57 kg, 157.48 cm) [facility] ED Course: 09/18 20:36 Patient arrived in ED. bp1 21:01 Triage completed. sj1 21:01 Arm band placed on right wrist. sj1 21:03 Patient has correct armband on for positive identification. Placed in gown. Bed in low sj position. Call light in reach. Side rails up X 1. 21:14 Devika Chavez, RN is Primary Nurse. dc2 21:15 Rashad Melgoza MD is Attending Physician. bobbi 21:37 Basic Metabolic Panel Sent. cc4 21:37 CBC with Diff Sent. cc4 21:37 Hepatic Function Sent. cc4 21:37 Lipase Sent. cc4 21:37 Initial lab(s) drawn, by me, sent to lab. Inserted saline lock: 22 gauge in right em antecubital area, using aseptic technique. Blood collected. 22:23 CT Abd/Pelvis - IV Contrast Only Sent. cc4 22:25 COVID-19 (Coronavirus) Document "Date of Onset" if Symptomatic Sent. cc4 22:55 CT Abd/Pelvis - IV Contrast Only In Process Unspecified. EDMS 09/19 00:20 Tom Beltre MD is Referral Physician. bobbi 00:35 No provider procedures requiring assistance completed. cc4 00:35 IV discontinued, intact, bleeding controlled, No redness/swelling at site. Pressure cc4 dressing applied. Administered Medications: 09/18 21:50 Drug: NS 0.9% 1000 ml Route: IV; Rate: 1 bolus; Site: right antecubital; cc4 09/19 00:35 Follow up: IV Status: Completed infusion; IV Intake: 1000ml cc4 01:09 Follow up: IV Status: Completed infusion; IV Intake: 1000ml cc4 09/18 21:50 Drug: Zofran (Ondansetron) 4 mg Route: IVP; Site: right antecubital; cc4 09/19 00:35 Follow up: Response: No adverse reaction; Nausea is decreased cc4 09/18 21:50 Drug: Demerol (meperidine) 25 mg Route: IVP; Site: right antecubital; cc4 09/19 00:35 Follow up: Response: No adverse reaction; Pain is decreased cc4 09/18 21:59 CANCELLED (Duplicate Order): Demerol (meperidine) 25 mg IVP once; RASS on ADMIN: cc4 Combtv4, Very Agttd3, Agttd2, Rstlss1, AlertClm0, Drwsy-1, Lt Sdtn-2, Mod Sdtn-3, Dp Sdtn-4, UnArsble-5 22:05 Drug: levofloxacin 500 mg Volume: 100 ml; Route: IVPB; Infused Over: 60 mins; Site: cc4 right antecubital; 09/19 00:35 Follow up: Urine output 350 ml; Response: No adverse reaction; IV Status: Completed cc4 infusion; IV Intake: 100ml 09/18 22:05 Drug: Pepcid (famotidine) 20 mg Route: IVP; Site: right antecubital; cc4 09/19 00:35 Follow up: Response: No adverse reaction; Pain is decreased cc4 09/18 22:33 Drug: Insulin Regular Human 10 units {Co-Signature: ld1 (Linsey Nelson RN).} Route: cc4 IVP; Site: right antecubital; 09/19 00:35 Follow up: Response: No adverse reaction; Blood sugar is lowered cc4 09/18 22:33 Drug: LanTUS (insulin glargine) 30 units Route: Sub-Q; Site: right upper arm; cc4 09/19 00:35 Follow up: Response: No adverse reaction; Blood sugar is lowered cc4 00:05 Drug: Demerol (meperidine) 25 mg Route: IVP; Site: right antecubital; cc4 00:35 Follow up: Response: No adverse reaction; Pain is decreased cc4 00:05 Drug: Zofran (Ondansetron) 4 mg Route: IVP; Site: right antecubital; cc4 00:35 Follow up: Response: No adverse reaction; Nausea is decreased cc4 01:03 Not Given (Discharged homee): NS 0.9% 1000 ml IV at 1 bolus Per protocol; 1000 mL bolus cc4 Intake: 00:35 IV: 100ml; Total: 100ml. cc4 00:35 IV: 1000ml; Total: 1100ml. cc4 01:09 IV: 1000ml; Total: 2100ml. cc4 Output: 00:35 Urine: 350ml; Total: 350ml. cc4 Outcome: 00:20 Discharge ordered by . bobbi 00:35 Discharged to home ambulatory. cc4 00:35 Condition: improved 00:35 Discharge instructions given to patient, Instructed on discharge instructions, follow up and referral plans. medication usage, Demonstrated understanding of instructions, follow-up care, medications, Prescriptions given X 3. 01:12 Patient left the ED. cc4 Signatures: Dispatcher InStaff Rashad Graham MD MD cha Munoz, Edgar, RN RN Vanessa Boo Christie RN RN cc4 Devika Chavez RN RN dc2 Stefani Camejo RN RN sj1 Linsey Nelson RN ld1 Corrections: (The following items were deleted from the chart) 09/18 21:59 21:50 Demerol (meperidine) 25 mg IVP in right antecubital cc4 cc4 22:00 21:50 Zofran (Ondansetron) 4 mg IVP in right antecubital cc4 cc4
[2021-09-19] MEDS ORDERED: MEPERIDINE HCL 25 MG/ML SYR ONE (00:26)
[2021-09-19] MEDS ORDERED: ONDANSETRON 4 MG/2 ML VIAL ONE (00:26)
[2021-09-19] MEDS ORDERED: NA CHLORIDE 0.9% 0 ML ONE (00:26)
[2021-09-19 05:18] VITALS: O2SAT 100
[2021-09-19 05:24] VITALS: BP 134/76; TEMP 98.5
--- NOTE | 2021-09-19 11:42 | RAD REPORT ---
EXAM DESCRIPTION: CT - Abdomen Pelvis W Contrast - 09/19/2021 7:21 am CLINICAL HISTORY: The patient is 36 years old and is Female; ABD PAIN TECHNIQUE: Axial computed tomography images of the abdomen and pelvis with intravenous contrast. S agittal and coronal reformatted images were created and reviewed. This CT exam was performed using one or more of the following dose reduction techniques: automated exposure control, adjustment of t he mA and/or kV according to patient size, and/or use of iterative reconstruction technique. Delayed imaging was performed. DLP: 1481 mGy*cm COMPARISON: CT abdomen and pelvis dated August 31, 2021. FINDINGS: LUNG BASES: Lung bases are clear. HEART: Visualized heart is normal. ABDOMEN: LIVER: Unremarkable. No mass. GALLBLADDER AND BILE DUCTS: Cholelithiasis. No acute cholecystitis. No ductal dilation. PANCREAS: Unremarkable. No mass. No ductal dilation. SPLEEN: Unremarkable. No splenomegaly. ADRENALS: Unremarkable. No mass. KIDNEYS AND URETERS: Unremarkable. No solid mass. No hydronephrosis. STOMACH AND BOWEL: Unremarkable. No obstruction. No mucosal thickening. PELVIS: APPENDIX: The appendix is seen and is within normal limits. BLADDER: Unremarkable. No mass. REPRODUCTIVE: Unremarkable as visualized. ABDOMEN and PELVIS: INTRAPERITONEAL SPACE: Unremarkable. No free air. No significant fluid collection. BONES/JOINTS: No acute fracture. No dislocation. SOFT TISSUES: Unremarkable. VASCULATURE: No abdominal aortic aneurysm. LYMPH NODES: Unremarkable. No enlarged lymph nodes. IMPRESSION: 1. No acute abdominal or pelvic abnormality. 2. Cholelithiasis. No acute cholecystitis. Electronically signed by: Kenji Otero DO 09/18/2021 11:20 PM CDT Due to temporary technical issues with the PACS/Fluency reporting system, reports are being signed by the in house radiologists without review as a courtesy to insure prompt reporting. The interpreting radiologist is fully responsible for the content of the report.
== END 2021-09-19 01:12 | disposition home or self-care (01) ==
LOC: ER 20:31
DX: E10.65 Type 1 diabetes mellitus with hyperglycemia (principal); K80.80 Other cholelithiasis without obstruction; R11.2 Nausea with vomiting, unspecified; F17.210 Nicotine dependence, cigarettes, uncomplicated; Z20.822 Contact with and (suspected) exposure to COVID-19; Z88.1 Allergy status to other antibiotic agents; Z88.5 Allergy status to narcotic agent; Z88.8 Allergy status to other drugs, medicaments and biological substances
CPT/HCPCS: 36415; 74177; 80048; 80076; 81003; 82947; 83690; 85025; 96365; 96366; 96372; 96375; 99284; J1815; J2175; J2405; J7030; Q9967; U0003

== ENCOUNTER 2021-09-19 15:20 | Emergency (ER) | payer SELFPAY ==
[2021-09-19] MEDS ORDERED: FENTANYL CITR 100 MCG/2 ML ONE ×2 (16:57→20:40)
[2021-09-19] MEDS ORDERED: NA CHLORIDE 0.9% 1,000 ML ONE (16:57)
[2021-09-19] MEDS ORDERED: ONDANSETRON 4 MG/2 ML VIAL ONE (16:57)
[2021-09-19] MEDS ORDERED: DIPHENHYDRAMINE 50 MG/ML VIAL ONE (16:57)
[2021-09-19 17:20] LABS: Basophils % 1.2 % (0-1.3); Hematocrit 40.4 % (36.0-45.0); MPV 8.2 fL (7.6-11.3); RBC Red Blood Cell Count 4.58 M/uL (3.86-4.86)
[2021-09-19 17:36] LABS: ALT/SGPT 12 U/L (12-78); AST/SGOT 17 U/L (15-37); Albumin 3.2 g/dL (3.4-5.0); Alkaline Phosphatase 96 U/L (45-117); BUN Blood Urea Nitrogen 7 mg/dL (7-18); Bicarbonate 26 mmol/L (21-32); Bilirubin Direct < 0.1 mg/dL (0-0.2); Bilirubin Total 0.2 mg/dL (0.2-1.0); Glucose Level 257 mg/dL (74-106); Magnesium 1.8 mg/dL (1.8-2.4); NT PRO-BNP 665 pg/mL (<125); Potassium 3.6 mmol/L (3.5-5.1); Protein, Total 7.4 g/dL (6.4-8.2); Sodium Level 138 mmol/L (136-145); Troponin (Emerg Dept Use Only) < 0.02 ng/mL (0.0-0.045)
--- NOTE | 2021-09-19 17:37 | RAD REPORT ---
EXAM DESCRIPTION: RAD - Chest Single View - 09/19/2021 5:30 pm CLINICAL HISTORY: CHEST PAIN Chest pain. COMPARISON: Chest Single View dated 08/10/2021; Chest Single View dated 02/12/2021; Chest Single View dated 01/21/2021; Chest Single View dated 12/31/2020 FINDINGS: Portable technique limits examination quality. The lungs are grossly clear. The heart is normal in size. No displaced fractures. IMPRESSION: No acute intrathoracic process suspected.
[2021-09-19 18:08] LABS: Barbiturates NEGATIVE (NEGATIVE); Benzodiazepines NEGATIVE (NEGATIVE); Cocaine NEGATIVE (NEGATIVE); METHAMPHETAM NEGATIVE (NEGATIVE); Methadone NEGATIVE (NEGATIVE); Opiates NEGATIVE (NEGATIVE); Phencyclidine NEGATIVE (NEGATIVE); THC Cannibis NEGATIVE (NEGATIVE)
--- NOTE | 2021-09-19 21:11 | ER ---
Nurse's Notes [facility] Name: Ara Mercado Age: 36 yrs Sex: Female : 1985 Arrival Date: 09/19/2021 Time: 15:22 Bed 15 Private MD: Diagnosis: Chest pain, unspecified Presentation: 09/19 15:38 Chief complaint: Patient states: my chest is hurting. it started about 45 minutes ago. tw2 i feel lightheaded, dizzy, nauseous. i feel like crap. i was in here this morning because of my gallbladder and i hope it is not related to that. Coronavirus screen: At this time, the client does not indicate any symptoms associated with coronavirus-19. Ebola Screen: Patient denies travel to an Ebola-affected area in the 21 days before illness onset. Initial Sepsis Screen: Does the patient meet any 2 criteria? No. Patient's initial sepsis screen is negative. Does the patient have a suspected source of infection? No. Patient's initial sepsis screen is negative. Risk Assessment: Do you want to hurt yourself or someone else? Patient reports no desire to harm self or others. Onset of symptoms was September 19, 2021. 15:38 Method Of Arrival: Ambulatory tw2 15:38 Acuity: CHARISSA 3 tw2 Triage Assessment: 15:40 General: Appears uncomfortable, Behavior is calm, cooperative, appropriate for age. tw2 Pain: Complains of pain in mid-sternal area. Cardiovascular: Reports chest pain, "it feels like someone is sitting on it". Historical: - Allergies: 15:39 Amoxicillin; tw2 15:39 Bactrim; tw2 15:39 Flagyl; tw2 15:39 Morphine; tw2 15:39 Toradol; tw2 15:39 tramadol; tw2 - Home Meds: 15:39 gabapentin 300 mg Oral cap 1 cap 3 times per day [Active]; tw2 - PMHx: 15:39 diabetes mellitus; neuropathy; gallstone; tw2 - PSHx: 15:39 None; tw2 - Immunization history:: Client reports receiving the 2nd dose of the Covid vaccine. - Social history:: Smoking status: Patient reports the use of cigarette tobacco products, smokes one pack cigarettes per day. Screenin:01 Abuse screen: Denies threats or abuse. Denies injuries from another. Nutritional tw5 screening: No deficits noted. Tuberculosis screening: No symptoms or risk factors identified. Fall Risk None identified. Assessment: 17:01 General: Reports " I was here yesterday for galbladder pain, but today it is chest tw5 pain. I am tired of being in the ER.". Pain: Complains of pain in chest Pain began gradually. Pain: Pain does not radiate. Pain currently is 8 out of 10 on a pain scale. Cardiovascular: Capillary refill < 3 seconds is brisk in bilateral fingers Pulses are palpable in right radial artery and left radial artery. Respiratory: Airway is patent Trachea midline Respiratory effort is even, unlabored, Respiratory pattern is regular. 17:28 General: Appears in no apparent distress. Behavior is calm, cooperative. Pain: Pain tw5 currently is 10 out of 10 on a pain scale. 18:04 Reassessment: Patient states feeling better. Patient states symptoms have improved. tw5 Pain: Complains of pain in back and chest Pain currently is 6 out of 10 on a pain scale. 18:45 Reassessment: ' The pain is starting to come back". Pain: Pain currently is 8 out of 10 tw5 on a pain scale. Quality of pain is described as heavy. Vital Signs: 15:38 BP 130 / 91; Pulse 89; Resp 18; Temp 97.8(TE); Pulse Ox 100% on R/A; Weight 72.57 kg tw2 (R); Height 5 ft. 2 in. (157.48 cm); Pain 10/10; 18:04 BP 157 / 79; Pulse 82; Resp 14; Pulse Ox 98% on R/A; Pain 6/10; tw5 18:45 BP 143 / 75; Pulse 82; Resp 12; Pulse Ox 99% on R/A; Pain 8/10; tw5 21:34 BP 118 / 71; Pulse 78; Resp 16; Temp 98.6; Pulse Ox 99% ; Pain 1/10; bs2 15:38 Body Mass Index 29.26 (72.57 kg, 157.48 cm) tw2 ED Course: 15:22 Patient arrived in ED. mr 15:39 Triage completed. tw2 15:40 Arm band placed on. tw2 15:44 Rashad Sandoval PA is PHCP. cp 15:44 Alex Lemons MD is Attending Physician. cp 16:24 Marissa Wilkins is Primary Nurse. tw5 17:01 No apparent distress. Awaiting lab results. tw5 17:01 Patient has correct armband on for positive identification. Placed in gown. Bed in low tw5 position. Call light in reach. Side rails up X 1. conditioning machine operator on. Pulse ox on. NIBP on. Door closed. Noise minimized. Lights dimmed. Warm blanket given. Verbal reassurance given. 17:01 Missed attempt(s): 20 gauge in right antecubital area. 22 gauge in right upper arm. tw5 Bleeding controlled, band aid applied, catheter tip intact. 17:01 Initial lab(s) drawn, by me, sent to lab. Urine collected: clean catch specimen. tw5 17:26 Accessed peripheral vein via ultrasound, utilizing dynamic ultrasound technique using jd3 20G Nexia IV catheter ,sterile technique, per hospital protocol. Clean \\T\\ dry. Dressing intact. Good blood return. Flushes easily. left AC. 17:32 UDS Sent. tw5 17:33 Basic Metabolic Panel Sent. tw5 17:33 CBC with Diff Sent. tw5 17:33 LFT's Sent. tw5 17:33 Magnesium Sent. tw5 17:33 Troponin (emerg Dept Use Only) Sent. tw5 17:33 XRAY Chest (1 view) Sent. tw5 17:33 PT-INR Sent. tw5 17:33 NT PRO-BNP Sent. tw5 19:22 Troponin (emerg Dept Use Only) Sent. bs2 21:34 No provider procedures requiring assistance completed. IV discontinued, intact, bs2 bleeding controlled, No redness/swelling at site. Pressure dressing applied. Patient maintains SpO2 saturation greater than 95% on room air. Administered Medications: 17:28 Drug: NS 0.9% 1000 ml Route: IV; Rate: 1 bolus; Site: left upper arm; tw5 20:32 Follow up: IV Status: Completed infusion bs2 17:29 Drug: Zofran (Ondansetron) 4 mg Route: IVP; Site: left upper arm; tw5 20:32 Follow up: Response: No adverse reaction bs2 17:36 Drug: Benadryl (diphenhydrAMINE) 12.5 mg Route: IVP; Site: left upper arm; tw5 20:32 Follow up: Response: No adverse reaction bs2 17:37 Drug: fentaNYL (PF) 25 mcg Route: IVP; Site: left upper arm; tw5 20:32 Follow up: Response: No adverse reaction bs2 20:20 Drug: fentaNYL (PF) 25 mcg Route: IVP; Site: left antecubital; bs2 21:33 Follow up: Response: No adverse reaction bs2 Outcome: 21:10 Discharge ordered by . jean marie 21:34 Discharged to home ambulatory, with family. bs2 21:34 Condition: improved 21:34 Discharge instructions given to patient, Instructed on discharge instructions, follow up and referral plans. medication usage, Demonstrated understanding of instructions, follow-up care, medications, Prescriptions given X 1. 21:35 Patient left the ED. bs2 Signatures: Milena Grewal Corey, PA PA cp Wise, Tara RN RN tw2 Dillon Wilde RN RN jKatlin Inman RN RN bs2 Marissa Wilkins tw5 Corrections: (The following items were deleted from the chart) 19:06 18:45 BP 143 / 75; Pulse 12bpm; Resp 82bpm; Pulse Ox 99% RA; Pain 8/10; tw5 tw5
--- NOTE | 2021-09-19 21:11 | EDPHYS ---
Physician Documentation [facility] Name: Ara Mercado Age: 36 yrs Sex: Female : 1985 Arrival Date: 09/19/2021 Time: 15:22 Bed 15 Private MD: ED Physician Alex Lemons HPI: 09/19 16:05 This 36 yrs old Female presents to ER via Ambulatory with complaints of Chest cp Pain. 16:05 The patient or guardian reports chest pain that is located primarily in the substernal cp area. 16:05 The pain does not radiate. The chest pain is described as a heaviness. cp 16:05 Duration: The patient or guardian reports a single episode, that is still ongoing, and cp unchanged. 16:05 The patient has been recently seen at the [facility] Emergency cp Department, yesterday, for abdominal pain. Historical: - Allergies: 15:39 Amoxicillin; tw2 15:39 Bactrim; tw2 15:39 Flagyl; tw2 15:39 Morphine; tw2 15:39 Toradol; tw2 15:39 tramadol; tw2 - Home Meds: 15:39 gabapentin 300 mg Oral cap 1 cap 3 times per day [Active]; tw2 - PMHx: 15:39 diabetes mellitus; neuropathy; gallstone; tw2 - PSHx: 15:39 None; tw2 - Immunization history:: Client reports receiving the 2nd dose of the Covid vaccine. - Social history:: Smoking status: Patient reports the use of cigarette tobacco products, smokes one pack cigarettes per day. ROS: 16:10 Constitutional: Negative for body aches, chills, fever, poor PO intake. cp 16:10 Eyes: Negative for injury, pain, redness, and discharge. cp 16:10 ENT: Negative for ear pain, sore throat, difficulty swallowing, difficulty handling secretions. 16:10 Cardiovascular: Positive for chest pain, Negative for edema, palpitations. 16:10 Respiratory: Negative for cough, shortness of breath, wheezing. 16:10 Abdomen/GI: Positive for nausea, Negative for abdominal pain, vomiting, diarrhea, constipation. 16:10 Back: Negative for radiated pain. 16:10 Neuro: Positive for dizziness, Negative for altered mental status, headache, syncope, weakness. 16:10 All other systems are negative. Exam: 16:03 ECG was reviewed by the Attending Physician. cp 16:12 Constitutional: The patient appears in no acute distress, alert, awake, cp non-diaphoretic, non-toxic, well developed, well nourished. 16:12 Head/Face: Normocephalic, atraumatic. cp 16:12 Eyes: Periorbital structures: appear normal, Conjunctiva: normal, no exudate, no injection, Sclera: no appreciated abnormality, Lids and lashes: appear normal, bilaterally. 16:12 ENT: External ear(s): are unremarkable, Nose: is normal, Mouth: Lips: moist, Oral mucosa: pink and intact, moist, Posterior pharynx: Airway: no evidence of obstruction, patent. 16:12 Chest/axilla: Inspection: normal, Palpation: crepitus, is not appreciated, tenderness, is not appreciated. 16:12 Cardiovascular: Rate: normal, Rhythm: regular, Edema: is not appreciated, JVD: is not appreciated. 16:12 Respiratory: the patient does not display signs of respiratory distress, Respirations: normal, no use of accessory muscles, no retractions, labored breathing, is not present, Breath sounds: are clear throughout, no decreased breath sounds, no stridor, no wheezing. 16:12 Abdomen/GI: Inspection: abdomen appears normal, Bowel sounds: active, all quadrants, Palpation: soft, in all quadrants, mild abdominal tenderness, in the epigastric area and right upper quadrant, rebound tenderness, is not appreciated, involuntary guarding, is not appreciated. 16:12 Back: pain, is absent, ROM is normal. 16:12 Neuro: Orientation: to person, place \T\ time. Mentation: is normal, Motor: moves all fours, strength is normal, Sensation: is normal. Vital Signs: 15:38 BP 130 / 91; Pulse 89; Resp 18; Temp 97.8(TE); Pulse Ox 100% on R/A; Weight 72.57 kg tw2 (R); Height 5 ft. 2 in. (157.48 cm); Pain 10/10; 18:04 BP 157 / 79; Pulse 82; Resp 14; Pulse Ox 98% on R/A; Pain 6/10; tw5 18:45 BP 143 / 75; Pulse 82; Resp 12; Pulse Ox 99% on R/A; Pain 8/10; tw5 21:34 BP 118 / 71; Pulse 78; Resp 16; Temp 98.6; Pulse Ox 99% ; Pain 1/10; bs2 15:38 Body Mass Index 29.26 (72.57 kg, 157.48 cm) tw2 MDM: 15:45 Patient medically screened. cp 17:00 Differential diagnosis: abnormal EKG, acute myocardial infarction, acute pericarditis, cp anxiety, chest wall pain, pleurisy, pneumonia, pneumothorax, pulmonary embolus. 21:10 Data reviewed: vital signs, nurses notes, lab test result(s), EKG, radiologic studies, cp plain films. 21:10 Test interpretation: by ED physician or midlevel provider: ECG, plain radiologic cp studies. 21:10 Counseling: I had a detailed discussion with the patient and/or guardian regarding: the cp historical points, exam findings, and any diagnostic results supporting the discharge/admit diagnosis, lab results, radiology results, to return to the emergency department if symptoms worsen or persist or if there are any questions or concerns that arise at home. Response to treatment: the patient's symptoms have markedly improved after treatment. Special discussion: Based on the patient's history, exam, and Dx evaluation, there is no indication for emergent intervention or inpatient Tx. It is understood by the patient/guardian that if the Sx's persist or worsen they need to return immediately for re-evaluation. 09/19 16:01 Order name: Basic Metabolic Panel cp 09/19 16:01 Order name: CBC with Diff cp 09/19 16:01 Order name: LFT's cp 09/19 16:01 Order name: Magnesium cp 09/19 16:01 Order name: NT PRO-BNP cp 09/19 16:01 Order name: PT-INR cp 09/19 16:01 Order name: Troponin (emerg Dept Use Only) cp 09/19 16:01 Order name: UDS cp 09/19 17:22 Order name: CBC with Automated Diff; Complete Time: 18:41 EDMS 09/19 18:41 Interpretation: Normal except: PLT 421. cp 09/19 17:24 Order name: Protime (+INR); Complete Time: 18:41 EDMS 09/19 17:37 Order name: Basic Metabolic Panel; Complete Time: 18:41 EDMS 09/19 18:42 Interpretation: Normal except: GFR 60; GLUC 257. cp 09/19 17:37 Order name: Liver (Hepatic) Function; Complete Time: 18:41 EDMS 09/19 18:42 Interpretation: Normal except: ALB 3.2; GLOB 4.2; A/G 0.8. cp 09/19 17:37 Order name: Troponin (Emerg Dept Use Only); Complete Time: 18:41 EDMS 09/19 18:43 Interpretation: Within normal limits: TROPED < 0.02. cp 09/19 17:37 Order name: NT PRO-BNP; Complete Time: 18:41 EDMS 09/19 18:42 Interpretation: Abnormal: NT PRO-BNP 665. 09/19 15:46 Order name: EKG; Complete Time: 16:46 09/19 15:46 Order name: EKG - Nurse/Tech; Complete Time: 15:56 09/19 16:01 Order name: XRAY Chest (1 view) 09/19 16:01 Order name: Cardiac monitoring; Complete Time: 16:58 cp 09/19 16:01 Order name: IV Saline Lock; Complete Time: 17:33 cp 09/19 16:01 Order name: Labs collected and sent; Complete Time: 17:33 cp 09/19 16:01 Order name: O2 Per Protocol; Complete Time: 17:37 09/19 17:37 Order name: Magnesium; Complete Time: 18:41 EDMS 09/19 18:43 Interpretation: MG 1.8; Reviewed. 09/19 17:38 Order name: RAD; Complete Time: 18:41 EDMS 09/19 18:09 Order name: Urine Drug Screen; Complete Time: 18:41 EDMS 09/19 19:00 Order name: Troponin (emerg Dept Use Only); Complete Time: 21:09 cp 09/19 16:01 Order name: O2 Sat Monitoring; Complete Time: 17:37 cp EC:03 Rate is 75 beats/min. Rhythm is regular. WI interval is normal. QRS interval is normal. cp QT interval is normal. T waves are Inverted in lead aVR. Interpreted by me. Reviewed by me. Administered Medications: 17:28 Drug: NS 0.9% 1000 ml Route: IV; Rate: 1 bolus; Site: left upper arm; tw5 20:32 Follow up: IV Status: Completed infusion bs2 17:29 Drug: Zofran (Ondansetron) 4 mg Route: IVP; Site: left upper arm; tw5 20:32 Follow up: Response: No adverse reaction bs2 17:36 Drug: Benadryl (diphenhydrAMINE) 12.5 mg Route: IVP; Site: left upper arm; tw5 20:32 Follow up: Response: No adverse reaction bs2 17:37 Drug: fentaNYL (PF) 25 mcg Route: IVP; Site: left upper arm; tw5 20:32 Follow up: Response: No adverse reaction bs2 20:20 Drug: fentaNYL (PF) 25 mcg Route: IVP; Site: left antecubital; bs2 21:33 Follow up: Response: No adverse reaction bs2 Disposition Summary: 09/19/21 21:10 Discharge Ordered Location: Home cp Problem: new cp Symptoms: have improved cp Condition: Stable cp Diagnosis - Chest pain, unspecified cp Followup: cp - With: Private Physician - When: 1 - 2 days - Reason: Recheck today's complaints Discharge Instructions: - Discharge Summary Sheet cp - Nonspecific Chest Pain, Adult cp Forms: - Medication Reconciliation Form cp - Thank You Letter cp - Antibiotic Education cp - Prescription Opioid Use cp Prescriptions: - Medrol (Owen) 4 mg Oral Tablets, Dose Pack - take 1 tablet by ORAL route as directed - follow package instructions; 1 cp packet; Refills: 0, Product Selection Permitted Addendum: 09/23/2021 13:55 Co-signature as Attending Physician, Alex Lemons MD I agree with the assessment and r n plan of care. Attestation: The patient's history, exam findings, diagnostics, and a summary of any interventions or procedures was reviewed in detail with Rashad COOPER. Signatures: Dispatcher [employer] Alex Rojas MD MD rn Page, Corey, PA PA cp Ling Zaldivar RN RN tw2 Katlin Haney RN RN bs2 Marissa Wilkins tw5 Corrections: (The following items were deleted from the chart) 09/20 16:40 09/19 16:10 Abdomen/GI: Negative for abdominal pain, nausea, vomiting, and diarrhea, cp cp 09/20 16:40 09/19 16:10 Neuro: Negative for altered mental status, headache, syncope, weakness, cp cp
[2021-09-19 21:44] VITALS: O2SAT 99
[2021-09-19 21:46] VITALS: BP 118/71; TEMP 98.6
[2021-09-27] MEDS ORDERED: ACETAMINOPHEN 325 MG TABLET ONE (20:51)
[2021-10-02] MEDS ORDERED: FENTANYL CITR 100 MCG/2 ML ONE (21:26)
[2021-10-02] MEDS ORDERED: ONDANSETRON 4 MG/2 ML VIAL ONE (21:27)
== END 2021-09-19 21:35 | disposition home or self-care (01) ==
LOC: ER 15:20
DX: R07.9 Chest pain, unspecified (principal); E10.40 Type 1 diabetes mellitus with diabetic neuropathy, unspecified; F17.210 Nicotine dependence, cigarettes, uncomplicated; Z88.1 Allergy status to other antibiotic agents; Z88.5 Allergy status to narcotic agent; Z88.8 Allergy status to other drugs, medicaments and biological substances
CPT/HCPCS: 36415; 71045; 80048; 80076; 80307; 83735; 83880; 84484; 85025; 85610; 93005; 99285; J1200; J2405; J3010; J7030

== ENCOUNTER 2021-10-02 19:59 | Emergency (ER) | payer SELFPAY ==
[2021-10-02 21:54] LABS: Absolute Lymphocytes (CBC) 2.3 K/uL (0.7-4.9); Basophils % 0.7 % (0-1.3); Hematocrit 33.5 % (36.0-45.0); Lymphocytes % 24.7 % (15.3-44.8); MPV 7.1 fL (7.6-11.3); RBC Red Blood Cell Count 3.78 M/uL (3.86-4.86)
[2021-10-02 22:43] LABS: ALT/SGPT 13 U/L (12-78); AST/SGOT 13 U/L (15-37); Albumin 2.9 g/dL (3.4-5.0); Alkaline Phosphatase 93 U/L (45-117); BUN Blood Urea Nitrogen 5 mg/dL (7-18); Bicarbonate 28 mmol/L (21-32); Bilirubin Direct < 0.1 mg/dL (0-0.2); Bilirubin Total 0.2 mg/dL (0.2-1.0); Glucose Level 307 mg/dL (74-106); Lipase 106 U/L (73-393); Potassium 3.7 mmol/L (3.5-5.1); Protein, Total 6.8 g/dL (6.4-8.2); Sodium Level 139 mmol/L (136-145)
--- NOTE | 2021-10-03 00:31 | EDPHYS ---
Physician Documentation [facility] Name: Ara Mercado Age: 36 yrs Sex: Female : 1985 Arrival Date: 10/02/2021 Time: 20:02 Bed 20 Private MD: ED Physician Scott Mcbride HPI: 10/02 21:15 This 36 yrs old Female presents to ER via Ambulatory with complaints of Post sp3 Surgical Pain. 21:15 36-year-old female with a history of diabetes who also had a laparoscopic sp3 cholecystectomy performed at [facility] on September 23 with discharge on September 24 with return to the [facility] ED on September 24 evening for emesis and epigastric pain who was admitted back at [facility] and discharged September 27 after getting an NG tube and treatment for gastroparesis and poor gastric emptying as well as gastritis now presents here for diffuse abdominal pain. Patient is not having any emesis, diarrhea, fever, back pain, syncope, near syncope, rash, any other symptoms at this time. Patient states that she "did not have enough gas" to get to [facility] so she is coming here. Patient has multiple visits in the past and her past history is well-documented.. 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 - Social history:: Smoking status: Patient reports the use of cigarette tobacco products, smokes one pack cigarettes per day. Patient/guardian denies using alcohol. ROS: 21:18 Constitutional: Negative for fever, chills, and weight loss, Eyes: Negative for injury, sp3 pain, redness, and discharge, ENT: Negative for injury, pain, and discharge, Neck: Negative for injury, pain, and swelling, Cardiovascular: Negative for chest pain, palpitations, and edema, Respiratory: Negative for shortness of breath, cough, wheezing, and pleuritic chest pain, Back: Negative for injury and pain, : Negative for injury, bleeding, discharge, and swelling, MS/Extremity: Negative for injury and deformity, Skin: Negative for injury, rash, and discoloration, Neuro: Negative for headache, weakness, numbness, tingling, and seizure, Psych: Negative for depression, anxiety, suicide ideation, homicidal ideation, and hallucinations, Allergy/Immunology: Negative for hives, rash, and allergies. 21:18 All other systems are negative. Exam: 21:19 Constitutional: This is a well developed, well nourished patient who is awake, alert, sp3 and in no acute distress. Head/Face: Normocephalic, atraumatic. Eyes: Pupils equal round and reactive to light, extra-ocular motions intact. Lids and lashes normal. Conjunctiva and sclera are non-icteric and not injected. Cornea within normal limits. Periorbital areas with no swelling, redness, or edema. ENT: Nares patent. No nasal discharge, no septal abnormalities noted. External auditory canals are clear. Oropharynx with no redness, swelling, or masses, exudates, or evidence of obstruction, uvula midline. Mucous membranes moist. Neck: Trachea midline, no thyromegaly or masses palpated, and no cervical lymphadenopathy. Supple, full range of motion without nuchal rigidity, or vertebral point tenderness. No Meningismus. Chest/axilla: Normal chest wall appearance and motion. Nontender with no deformity. No lesions are appreciated. Cardiovascular: Regular rate and rhythm with a normal S1 and S2. No gallops, murmurs, or rubs. Normal PMI, no JVD. No pulse deficits. Respiratory: Lungs have equal breath sounds bilaterally, clear to auscultation and percussion. No rales, rhonchi or wheezes noted. No increased work of breathing, no retractions or nasal flaring. Back: No spinal tenderness. No costovertebral tenderness. Full range of motion. Skin: Warm, dry with normal turgor. Normal color with no rashes, no lesions, and no evidence of cellulitis. MS/ Extremity: Pulses equal, no cyanosis. Neurovascular intact. Full, normal range of motion. Neuro: Awake and alert, GCS 15, oriented to person, place, time, and situation. Cranial nerves II-XII grossly intact. Motor strength 5/5 in all extremities. Sensory grossly intact. Cerebellar exam normal. Normal gait. Psych: Awake, alert, with orientation to person, place and time. Behavior, mood, and affect are within normal limits. 21:19 Abdomen/GI: Surgical sites are well-healing without any evidence of infection with mild ecchymoses surrounding them. Abdomen is diffusely tender but without any peritoneal signs including rebound or guarding. Bowel sounds are present and normal.. Vital Signs: 20:22 BP 149 / 94; Pulse 86; Resp 18; Temp 98.5(TE); Pulse Ox 100% on R/A; Weight 76.66 kg; ld1 Height 5 ft. 2 in. (157.48 cm); Pain 9/10; 20:52 BP 146 / 89; Pulse 88; Resp 20; Temp 98.3; Pulse Ox 98% on R/A; sl2 21:45 BP 142 / 79; Pulse 81; Resp 18; Pulse Ox 98% on R/A; cc4 22:45 BP 128 / 65; Pulse 81; Resp 18; Pulse Ox 100% on R/A; cc4 10/03 00:35 BP 148 / 79; Pulse 82; Resp 18; Temp 98.2; Pulse Ox 100% on R/A; cc4 10/02 20:22 Body Mass Index 30.91 (76.66 kg, 157.48 cm) ld1 MDM: 10/02 21:02 Patient medically screened. sp3 21:19 Data reviewed: vital signs, nurses notes. ED course: 36-year-old female now postop day sp3 9 from a cholecystectomy at [facility] now with abdominal pain. Will obtain CT scan of the abdomen pelvis to assess and obtain laboratory values. She is allergic to multiple pain medications and so will receive fentanyl x1 IV. If there are additional findings on her work-up we will give more pain medication otherwise we will try and limit narcotics secondary to her existing postop complications last week. Patient is okay with the plan and has a follow-up appointment on October 07 with her surgeon at [facility].. 10/03 00:28 ED course: CT Scan reviewed which demonstrates no significant abnormality. I do not sp3 believe patient has UTI and is afebrile at this time. Will discharge home with PCP follow-up and surgeon follow-up at [facility].. 10/02 21:08 Order name: Basic Metabolic Panel; Complete Time: 23:26 sp3 10/02 21:08 Order name: CBC with Diff; Complete Time: 23:26 sp3 10/02 21:08 Order name: Hepatic Function; Complete Time: 23:26 sp3 10/02 21:08 Order name: Lipase; Complete Time: 23:26 sp3 10/02 21:08 Order name: CT Abd/Pelvis - IV Contrast Only sp3 10/02 21:08 Order name: IV Saline Lock; Complete Time: 21:13 sp3 10/02 21:08 Order name: Labs collected and sent; Complete Time: 21:46 sp3 Administered Medications: 10/02 21:30 Drug: fentaNYL (PF) 50 mcg Route: IVP; Site: right forearm; sl2 22:00 Follow up: Response: No adverse reaction; Pain is decreased cc4 21:30 Drug: Zofran (Ondansetron) 4 mg Route: IVP; Site: right forearm; sl2 22:00 Follow up: Response: No adverse reaction cc4 Disposition Summary: 10/03/21 00:30 Discharge Ordered Location: Home sp3 Condition: Stable sp3 Diagnosis - Abdominal pain, Generalized sp3 Followup: sp3 - With: Private Physician - When: Upon discharge from the Emergency Department - Reason: Recheck today's complaints, Re-evaluation by your physician Discharge Instructions: - Discharge Summary Sheet sp3 - Abdominal Pain, Adult sp3 Forms: - Medication Reconciliation Form sp3 - Thank You Letter sp3 - Antibiotic Education sp3 - Prescription Opioid Use sp3 Signatures: Dispatcher [employer] EDMS Linsey Nelson RN RN ld1 Scott Mcbride MD MD sp3 Pavithra Zuniga RN RN sl2 Zunilda Bob RN cc4
--- NOTE | 2021-10-03 00:31 | ER ---
Nurse's Notes [facility] Name: Ara Mercado Age: 36 yrs Sex: Female : 1985 Arrival Date: 10/02/2021 Time: 20:02 Bed 20 Private MD: Diagnosis: Abdominal pain, Generalized Presentation: 10/02 20:22 Chief complaint: Patient states: I had my gallbladder removed, then I had complications ld1 and now my entire abdomen hurts. I am also extremely dizzy. Coronavirus screen: At this time, the client does not indicate any symptoms associated with coronavirus-19. Ebola Screen: No symptoms or risks identified at this time. Initial Sepsis Screen: Does the patient meet any 2 criteria? No. Patient's initial sepsis screen is negative. Does the patient have a suspected source of infection? No. Patient's initial sepsis screen is negative. Risk Assessment: Do you want to hurt yourself or someone else? Patient reports no desire to harm self or others. Onset of symptoms was October 02, 2021. 20:22 Method Of Arrival: Ambulatory ld1 20:22 Acuity: CHARISSA 3 ld1 Triage Assessment: 20:24 General: Appears in no apparent distress. uncomfortable, Behavior is calm, cooperative, ld1 appropriate for age. Pain: Complains of pain in abdomen Pain does not radiate. Pain currently is 9 out of 10 on a pain scale. Quality of pain is described as throbbing, Pain began gradually, Is continuous. EENT: No signs and/or symptoms were reported regarding the EENT system. Neuro: Level of Consciousness is awake, alert, obeys commands, Oriented to person, place, time, situation, Appropriate for age. Cardiovascular: Capillary refill < 3 seconds Patient's skin is warm and dry. Respiratory: Airway is patent Respiratory effort is even, unlabored, Respiratory pattern is regular, symmetrical. GI: Abdomen is round non-distended, Reports lower abdominal pain, upper abdominal pain, nausea, vomiting. : No signs and/or symptoms were reported regarding the genitourinary system. Derm: No signs and/or symptoms reported regarding the dermatologic system. Musculoskeletal: No signs and/or symptoms reported regarding the musculoskeletal system. 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 - Social history:: Smoking status: Patient reports the use of cigarette tobacco products, smokes one pack cigarettes per day. Patient/guardian denies using alcohol. Screenin:52 Abuse screen: Denies threats or abuse. Nutritional screening: No deficits noted. cc4 Tuberculosis screening: No symptoms or risk factors identified. Fall Risk None identified. Assessment: 20:52 General: Appears uncomfortable, Behavior is calm, cooperative, Reports pain of abdomen sl2 9/10 on pain scale s/p cholecystectomy 09/23/2021. Pain: Complains of pain in abdomen Pain does not radiate. Pain currently is 9 out of 10 on a pain scale. at worst was 10 out of 10 on a pain scale. level that patient reports is acceptable is 0 out of 10 on a pain scale. Quality of pain is described as aching, Pain began reports intermittent abdominal pain since cholecystectomy 09/23/2021. Is intermittent, Alleviated by medications, Aggravated by denies anything aggravating pain. Neuro: No deficits noted. Level of Consciousness is awake, alert, obeys commands, Oriented to person, place, time, situation. Cardiovascular: Denies chest pain, nausea, vomiting. Respiratory: No deficits noted. Airway is patent Respiratory effort is even, unlabored. GI: Abdomen is round bruised on epigastric area, umbilical area and right upper quadrant approx. 1/2 inch incisional lines x 3 noted of abdominal \\T\\ intact with dermabond with sm. amt bruising noted of sites. : Denies burning with urination. EENT: No deficits noted. Eyes clear. Nares are clear Oral mucosa is moist. Derm: Skin S/P cholecystectomy 09/23/2021 with incisional lines x 3 noted intact with dermabond \\T\\ small amount bruising noted of incisional lines approximately 1/2" in length each. Musculoskeletal: No deficits noted. Capillary refill < 3 seconds, Range of motion: intact in all extremities, Reports swelling BLE since surgery; no edema noted \\T\\ present. 21:20 Reassessment: # 22 g diffusics inserted right inner FA per Tyler, registered pharmacy technician x 1 with sl2 inability to draw blood, anthony. well; lab notified to send engine repairer service to draw blood. 21:30 Reassessment: c/o abdominal pain 9/10 on pain scale; fentanyl 50 mcg/zofran 4 mg given sl2 slow IVP each; SR's x 2 up; stretcher low position; \\T\\ bedside. 21:45 Reassessment: blood drawn for lab per engine repairer service, tol. gonzales. sl2 22:00 Reassessment: Resting quietly; reports abdominal pain decreasing to 7/10 on pain scale. sl2 Patient states feeling better. 22:45 Reassessment: to CT via stretcher. cc4 23:00 Reassessment: Patient appears in no apparent distress at this time. Returned from CT cc4 via stretcher. 10/03 00:05 Reassessment: Patient appears in no apparent distress at this time. Dr. Mcbride in to see.cc4 Vital Signs: 10/02 20:22 BP 149 / 94; Pulse 86; Resp 18; Temp 98.5(TE); Pulse Ox 100% on R/A; Weight 76.66 kg; ld1 Height 5 ft. 2 in. (157.48 cm); Pain 9/10; 20:52 BP 146 / 89; Pulse 88; Resp 20; Temp 98.3; Pulse Ox 98% on R/A; sl2 21:45 BP 142 / 79; Pulse 81; Resp 18; Pulse Ox 98% on R/A; cc4 22:45 BP 128 / 65; Pulse 81; Resp 18; Pulse Ox 100% on R/A; cc4 10/03 00:35 BP 148 / 79; Pulse 82; Resp 18; Temp 98.2; Pulse Ox 100% on R/A; cc4 10/02 20:22 Body Mass Index 30.91 (76.66 kg, 157.48 cm) ld1 ED Course: 10/02 20:02 Patient arrived in ED. bp1 20:23 Triage completed. ld1 20:24 Arm band placed on right wrist. ld1 20:47 Scott Mcbride MD is Attending Physician. sp3 20:52 Patient has correct armband on for positive identification. Bed in low position. Call cc4 light in reach. Side rails up X 1. 21:11 Inserted saline lock: 22 gauge in right forearm, using aseptic technique. ds4 21:21 Pavithra Zuniga, RN is Primary Nurse. sl2 21:22 CT Abd/Pelvis - IV Contrast Only Sent. sl2 21:58 Basic Metabolic Panel Sent. sl2 21:58 Hepatic Function Sent. sl2 21:58 Lipase Sent. sl2 23:29 CT Abd/Pelvis - IV Contrast Only In Process Unspecified. EDMS 11 00:35 No provider procedures requiring assistance completed. cc4 00:35 IV discontinued, intact, bleeding controlled, No redness/swelling at site. Pressure cc4 dressing applied. Administered Medications: 10/02 21:30 Drug: fentaNYL (PF) 50 mcg Route: IVP; Site: right forearm; sl2 22:00 Follow up: Response: No adverse reaction; Pain is decreased cc4 21:30 Drug: Zofran (Ondansetron) 4 mg Route: IVP; Site: right forearm; sl2 22:00 Follow up: Response: No adverse reaction cc4 Outcome: 10/03 00:30 Discharge ordered by . sp3 00:35 Discharged to home ambulatory, with . cc4 00:35 Condition: improved 00:35 Discharge instructions given to patient, Instructed on discharge instructions, follow up and referral plans. Demonstrated understanding of instructions, follow-up care. 00:41 Patient left the ED. cc4 Signatures: Dispatcher [employer] EDMO Tyler Machado ds4 Vanessa Cantu Lauren RN RN ld1 Scott Mcbride MD MD sp3 Zunilda Bob RN RN cc4 Pavithra Zuniga, VÍCTOR RN sl2
[2021-10-03 01:49] VITALS: BP 146/89; TEMP 98.3; O2SAT 98
--- NOTE | 2021-10-03 11:06 | RAD REPORT ---
EXAM DESCRIPTION: CT - Abdomen Pelvis W Contrast - 10/03/2021 6:18 am CLINICAL HISTORY: The patient is 36 years old and is Female; Postop cholecystectomy;Abd pain TECHNIQUE: Axial computed tomography images of the abdomen and pelvis with intravenous contrast. S agittal and coronal reformatted images were created and reviewed. This CT exam was performed using one or more of the following dose reduction techniques: automated exposure control, adjustment of t he mA and/or kV according to patient size, and/or use of iterative reconstruction technique. DLP: 1536 mGy*cm COMPARISON: CT abdomen and pelvis dated 05/19/2021. FINDINGS: LUNG BASES: Lung bases are clear. HEART: Visualized heart is normal. ABDOMEN: LIVER: Unremarkable. No mass. GALLBLADDER AND BILE DUCTS: Interval cholecystectomy. Small amount of fluid and stranding in the g allbladder fossa. No organized fluid collection. No ductal dilation. PANCREAS: Unremarkable. No mass. No ductal dilation. SPLEEN: Unremarkable. No splenomegaly. ADRENALS: Unremarkable. No mass. KIDNEYS AND URETERS: Ill-defined hypodensities and hyperenhancement of the superior pole of the ki dneys. No hydronephrosis. STOMACH AND BOWEL: Unremarkable. No obstruction. No mucosal thickening. PELVIS: APPENDIX: The appendix is seen and is within normal limits. BLADDER: Unremarkable. No mass. REPRODUCTIVE: Left ovarian corpus luteal cyst measuring 1.4 cm. ABDOMEN and PELVIS: INTRAPERITONEAL SPACE: Unremarkable. No free air. No significant fluid collection. BONES/JOINTS: No acute fracture. No dislocation. SOFT TISSUES: Unremarkable. VASCULATURE: Mild vascular calcifications. No abdominal aortic aneurysm. LYMPH NODES: Unremarkable. No enlarged lymph nodes. IMPRESSION: 1. Interval cholecystectomy. Small amount of fluid and stranding in the gallbladder fo ssa. No organized fluid collection. 2. Ill-defined hypodensities and hyperenhancement of the superior pole of the kidneys. Findings m ay be secondary to infectious or ischemic process. Correlate clinically. 3. Left ovarian corpus luteal cyst measuring 1.4 cm. No follow-up imaging is recommended. Reference: US recommendations based on Radiology 2010 Jul;256(3):943-54; CT/MR recommendations based on J Am Chandan Radiol 2013;10:675-681. Electronically signed by: Kenji Otero DO 10/02/2021 11:47 PM [facility] Due to temporary technical issues with the PACS/Fluency reporting system, reports are being signed by the in house radiologist without review as a courtesy to ensure prompt reporting. The interpreting r adiologist is fully responsible for the content of the report.
== END 2021-10-03 00:41 | disposition home or self-care (01) ==
LOC: ER 19:59
DX: R10.84 Generalized abdominal pain (principal); E11.9 Type 2 diabetes mellitus without complications; F17.210 Nicotine dependence, cigarettes, uncomplicated; Z88.0 Allergy status to penicillin; Z88.3 Allergy status to other anti-infective agents; Z88.6 Allergy status to analgesic agent; Z90.49 Acquired absence of other specified parts of digestive tract
CPT/HCPCS: 36415; 74177; 80048; 80076; 83690; 85025; 96374; 96375; 99284; Q9967

== ENCOUNTER 2021-10-30 17:41 | Emergency (ER) | payer SELFPAY ==
--- NOTE | 2021-10-30 19:37 | ER ---
Nurse's Notes [facility] Name: Ara Mercado Age: 36 yrs Sex: Female : 1985 Arrival Date: 10/30/2021 Time: 17:44 Bed Waiting Private MD: Diagnosis: Presentation: 10/30 18:14 Chief complaint: Patient states: I have been having left flank pain X 3 days. ld1 Coronavirus screen: At this time, the client does not indicate any symptoms associated with coronavirus-19. Ebola Screen: No symptoms or risks identified at this time. Initial Sepsis Screen: Does the patient meet any 2 criteria? No. Patient's initial sepsis screen is negative. Does the patient have a suspected source of infection? No. Patient's initial sepsis screen is negative. Risk Assessment: Do you want to hurt yourself or someone else? Patient reports no desire to harm self or others. Onset of symptoms was October 30, 2021. 18:14 Method Of Arrival: Ambulatory ld1 18:14 Acuity: CHARISSA 4 ld1 Triage Assessment: 18:15 General: Appears in no apparent distress. comfortable, Behavior is calm, cooperative, ld1 appropriate for age. Pain: Complains of pain in left low back Pain does not radiate. Pain currently is 7 out of 10 on a pain scale. Quality of pain is described as throbbing, Pain began gradually, Is continuous. EENT: No signs and/or symptoms were reported regarding the EENT system. Neuro: Level of Consciousness is awake, alert, obeys commands, Oriented to person, place, time, situation, Appropriate for age. Cardiovascular: Capillary refill < 3 seconds Patient's skin is warm and dry. Respiratory: Airway is patent Respiratory effort is even, unlabored, Respiratory pattern is regular, symmetrical. GI: Abdomen is round non-distended. : No signs and/or symptoms were reported regarding the genitourinary system. Derm: No signs and/or symptoms reported regarding the dermatologic system. Musculoskeletal: Reports pain in left low back. 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 - Social history:: Smoking status: Patient reports the use of cigarette tobacco products, smokes one pack cigarettes per day. Patient/guardian denies using alcohol. Vital Signs: 18:14 BP 123 / 87; Pulse 101; Resp 18; Temp 98.8(O); Pulse Ox 100% on R/A; Weight 70.76 kg; ld1 Height 5 ft. 2 in. (157.48 cm); Pain 7/10; 18:14 Body Mass Index 28.53 (70.76 kg, 157.48 cm) ld1 ED Course: 17:44 Patient arrived in ED. ds1 18:15 Triage completed. ld1 18:15 Arm band placed on right wrist. ld1 19:36 Patient's name was called from ER lobby. No response. Unable to locate patient. Will bb disposition as left without being seen by a provider. Administered Medications: No medications were administered Outcome: 19:36 Patient left the ED. bb Signatures: Betsey Harris ds1 Sara Bourgeois RN RN bb Linsey Nelson RN RN ld1
[2021-10-30 19:48] VITALS: BP 123/87; TEMP 98.8; O2SAT 100
== END 2021-10-30 19:36 | disposition left against medical advice (07) ==
LOC: ER 17:41
DX: Z53.21 Procedure and treatment not carried out due to patient leaving prior to being seen by health care provider (principal)
CPT/HCPCS: 99281

== ENCOUNTER 2021-11-07 02:48 | Emergency (ER) | payer SELFPAY ==
[2021-11-07] MEDS ORDERED: HYDROCODONE/APAP 10/325 TAB ONE (03:57)
[2021-11-07] MEDS ORDERED: IBUPROFEN 200 MG TAB PO ONE (03:57)
[2021-11-07] MEDS ORDERED: IBUPROFEN 400 MG TAB ONE (03:57)
[2021-11-07 04:07] LABS: Urine Blood Negative (Negative); Urine Glucose 3+ (Negative); Urine Protein Negative (Negative); Urine Specific Gravity 1.015 (1.005-1.030); Urine pH 5.5 (5.0-7.0)
--- NOTE | 2021-11-07 04:30 | EDPHYS ---
Physician Documentation [facility] Name: Ara Mercado Age: 36 yrs Sex: Female : 1985 Arrival Date: 11/07/2021 Time: 02:53 Bed 5 Private MD: ZACHARY Physician Rashad Melgoza HPI: 11/07 03:37 This 36 yrs old Female presents to ER via Ambulatory with complaints of Back bobbi Pain. 03:37 The patient presents with pain that is acute, with no known mechanism of injury. The bobbi symptoms are located in the low back. Onset: The symptoms/episode began/occurred 2 day(s) ago. The pain does not radiate. Associated signs and symptoms: The patient has no apparent associated signs or symptoms. Modifying factors: The patient symptoms are alleviated by remaining still, the patient symptoms are aggravated by any movement, bending. Severity of symptoms: At their worst the symptoms were mild, moderate, in the emergency department the symptoms are unchanged. The patient has not experienced similar symptoms in the past. 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 - Social history:: Smoking status: Patient reports the use of cigarette tobacco products, smokes one-half pack cigarettes per day. - Family history:: not pertinent. ROS: 03:37 Constitutional: Negative for fever, chills, and weight loss, Eyes: Negative for injury, bobbi pain, redness, and discharge, ENT: Negative for injury, pain, and discharge, Neck: Negative for injury, pain, and swelling, Cardiovascular: Negative for chest pain, palpitations, and edema, Respiratory: Negative for shortness of breath, cough, wheezing, and pleuritic chest pain, Abdomen/GI: Negative for abdominal pain, nausea, vomiting, diarrhea, and constipation, : Negative for injury, bleeding, discharge, and swelling, MS/Extremity: Negative for injury and deformity, Skin: Negative for injury, rash, and discoloration, Neuro: Negative for headache, weakness, numbness, tingling, and seizure, Psych: Negative for depression, anxiety, suicide ideation, homicidal ideation, and hallucinations, Allergy/Immunology: Negative for hives, rash, and allergies, Endocrine: Negative for neck swelling, polydipsia, polyuria, polyphagia, and marked weight changes, Hematologic/Lymphatic: Negative for swollen nodes, abnormal bleeding, and unusual bruising. 03:37 Back: Positive for pain at rest, pain with movement, flank pain, on the left, of the left low back and left mid back. Exam: 03:37 Constitutional: This is a well developed, well nourished patient who is awake, alert, bobbi and in no acute distress. Head/Face: Normocephalic, atraumatic. Eyes: Pupils equal round and reactive to light, extra-ocular motions intact. Lids and lashes normal. Conjunctiva and sclera are non-icteric and not injected. Cornea within normal limits. Periorbital areas with no swelling, redness, or edema. ENT: Nares patent. No nasal discharge, no septal abnormalities noted. Tympanic membranes are normal and external auditory canals are clear. Oropharynx with no redness, swelling, or masses, exudates, or evidence of obstruction, uvula midline. Mucous membranes moist. Neck: Trachea midline, no thyromegaly or masses palpated, and no cervical lymphadenopathy. Supple, full range of motion without nuchal rigidity, or vertebral point tenderness. No Meningismus. Chest/axilla: Normal chest wall appearance and motion. Nontender with no deformity. No lesions are appreciated. Cardiovascular: Regular rate and rhythm with a normal S1 and S2. No gallops, murmurs, or rubs. Normal PMI, no JVD. No pulse deficits. Respiratory: Lungs have equal breath sounds bilaterally, clear to auscultation and percussion. No rales, rhonchi or wheezes noted. No increased work of breathing, no retractions or nasal flaring. Abdomen/GI: Soft, non-tender, with normal bowel sounds. No distension or tympany. No guarding or rebound. No evidence of tenderness throughout. Female : Normal external genitalia. Skin: Warm, dry with normal turgor. Normal color with no rashes, no lesions, and no evidence of cellulitis. MS/ Extremity: Pulses equal, no cyanosis. Neurovascular intact. Full, normal range of motion. Neuro: Awake and alert, GCS 15, oriented to person, place, time, and situation. Cranial nerves II-XII grossly intact. Motor strength 5/5 in all extremities. Sensory grossly intact. Cerebellar exam normal. Normal gait. 03:37 Back: pain, that is moderate, ROM is painful, normal spinal alignment noted, CVA tenderness, that is mild, is noted on the left, muscle spasm, is appreciated in the left low back and left mid back. Vital Signs: 03:07 BP 127 / 90; Pulse 93; Resp 16; Temp 98.6; Pulse Ox 100% on R/A; Weight 70.76 kg; da3 Height 5 ft. 2 in. (157.48 cm); 03:52 BP 144 / 81; Pulse 93; Resp 18; Pulse Ox 99% on R/A; Pain 9/10; tw5 04:46 Resp 18; Pulse Ox 100% on R/A; tw5 03:07 Body Mass Index 28.53 (70.76 kg, 157.48 cm) da3 MDM: 03:32 Patient medically screened. bobbi 03:37 Differential diagnosis: Fatigue Osteoporosis Scoliosis spinal injury, sprain, bobbi Ureterolithiasis. Data reviewed: vital signs, nurses notes, lab test result(s), radiologic studies, plain films. Data interpreted: department director: rate is 93 beats/min, rhythm is regular, Pulse oximetry: on room air is 100 %. Test interpretation: by ED physician or midlevel provider: plain radiologic studies. Counseling: I had a detailed discussion with the patient and/or guardian regarding: the historical points, exam findings, and any diagnostic results supporting the discharge/admit diagnosis, lab results, radiology results, the need for outpatient follow up, for definitive care, a family practitioner, a neurologist. 11/07 04:07 Order name: Urine Dipstick-Ancillary; Complete Time: 04:28 EDMS 11/07 04:09 Order name: Urine --Ancillary (enter results) mw2 11/07 03:35 Order name: Urine Dipstick-Ancillary (obtain specimen); Complete Time: 04:01 [facility] 11/07 03:35 Order name: Lumbar Spine (3 Views) XRAY [facility] 11/07 03:35 Order name: Urine Test (obtain specimen); Complete Time: 04:01 [facility] Administered Medications: 04:00 Drug: [place] (HYDROcodone-acetaminophen) 10 mg-325 mg 1 tabs Route: PO; tw5 04:48 Follow up: Response: No adverse reaction; Pain is decreased; RASS: Alert and Calm (0) tw5 04:00 Drug: Motrin (ibuprofen) 600 mg Route: PO; tw5 04:48 Follow up: Response: No adverse reaction tw5 Disposition Summary: 11/07/21 04:29 Discharge Ordered Location: Home [facility] Problem: new [facility] Symptoms: have improved [facility] Condition: Stable bobbi Diagnosis - Fall on same level, unspecified bobbi - Low back pain bobbi Followup: bobbi - With: Private Physician - When: 2 - 3 days - Reason: Recheck today's complaints, Continuance of care, Re-evaluation by your physician Discharge Instructions: - Discharge Summary Sheet bobbi - Acute Back Pain, Adult bobbi - Musculoskeletal Pain bobbi - Fall Prevention in the Home, Adult [facility] - Fall Prevention in the Home, Adult, [id number] Forms: - Medication Reconciliation Form [facility] - Thank You Letter [facility] - Antibiotic Education [facility] - Prescription Opioid Use [facility] Prescriptions: - Ibuprofen 600 mg Oral Tablet - take 1 tablet by ORAL route every 6 hours As needed take with food; 30 tablet; [facility] Refills: 0, Product Selection Permitted - Cyclobenzaprine 5 mg Oral Tablet - take 1 tablet by ORAL route 3 times per day As needed; 15 tablet; Refills: 0, [facility] Product Selection Permitted - Tylenol-Codeine #3 300 mg-30 mg Oral - take 2 tablet by ORAL route every 4-6 hours; 20 tablet; Refills: 0, Product [facility] Selection Permitted Signatures: Dispatcher [employer] Rashad Graham MD MD cha Allan, David, RN RN Marissa Portillo tw5
--- NOTE | 2021-11-07 04:30 | ER ---
Nurse's Notes [facility] Name: Ara Mercado Age: 36 yrs Sex: Female : 1985 Arrival Date: 11/07/2021 Time: 02:53 Bed 5 Private MD: Diagnosis: Fall on same level, unspecified;Low back pain Presentation: 11/07 03:07 Chief complaint: Patient states: back Pain and cyst popped by vagina. Coronavirus da3 screen: Vaccine status: Patient reports receiving the 2nd dose of the covid vaccine. Ebola Screen: No symptoms or risks identified at this time. Initial Sepsis Screen: Does the patient meet any 2 criteria? No. Patient's initial sepsis screen is negative. Does the patient have a suspected source of infection? No. Patient's initial sepsis screen is negative. Risk Assessment: Do you want to hurt yourself or someone else? Patient reports no desire to harm self or others. Onset of symptoms was November 06, 2021 at 14:00. 03:07 Method Of Arrival: Ambulatory da3 03:07 Acuity: CHARISSA 3 da3 Triage Assessment: 03:07 General: Appears in no apparent distress. uncomfortable, Behavior is calm, cooperative. da3 Pain: Complains of pain in back and pelvis Pain currently is 10 out of 10 on a pain scale. Musculoskeletal: No deficits noted. 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 - Social history:: Smoking status: Patient reports the use of cigarette tobacco products, smokes one-half pack cigarettes per day. - Family history:: not pertinent. Screenin:52 Abuse screen: Denies threats or abuse. Denies injuries from another. Nutritional tw5 screening: No deficits noted. Tuberculosis screening: No symptoms or risk factors identified. Fall Risk Fall in past 12 months (25 points). Assessment: 03:48 General: Reports " I go to get out of the shower and rug goes out from me, I fell right tw5 on top of the toilet paper wise. I came up here on Friday but you guys were so busy that I left.. Pain: Pain. Neuro: Level of Consciousness is awake, alert, obeys commands. Respiratory: Airway is patent Trachea midline Respiratory effort is even, unlabored. Vital Signs: 03:07 BP 127 / 90; Pulse 93; Resp 16; Temp 98.6; Pulse Ox 100% on R/A; Weight 70.76 kg; da3 Height 5 ft. 2 in. (157.48 cm); 03:52 BP 144 / 81; Pulse 93; Resp 18; Pulse Ox 99% on R/A; Pain 9/10; tw5 04:46 Resp 18; Pulse Ox 100% on R/A; tw5 03:07 Body Mass Index 28.53 (70.76 kg, 157.48 cm) da3 ED Course: 02:53 Patient arrived in ED. es 03:07 Arm band placed on right wrist. da3 03:09 Triage completed. da3 03:32 Rashad Melgoza MD is Attending Physician. [facility] 03:47 Marissa Wilkins is Primary Nurse. tw5 03:52 Patient has correct armband on for positive identification. Placed in gown. Bed in low tw5 position. Call light in reach. Side rails up X 1. Pulse ox on. NIBP on. Door closed. Moved to private room. Warm blanket given. Verbal reassurance given. 04:12 Urine --Ancillary (enter results) Sent. tw5 04:46 No provider procedures requiring assistance completed. Patient did not have IV access tw5 during this emergency room visit. Administered Medications: 04:00 Drug: [place] (HYDROcodone-acetaminophen) 10 mg-325 mg 1 tabs Route: PO; tw5 04:48 Follow up: Response: No adverse reaction; Pain is decreased; RASS: Alert and Calm (0) tw5 04:00 Drug: Motrin (ibuprofen) 600 mg Route: PO; tw5 04:48 Follow up: Response: No adverse reaction tw5 Outcome: 04:29 Discharge ordered by . bobbi 04:46 Discharged to home ambulatory, with family. 04:46 Condition: good 04:46 Discharge instructions given to patient, Instructed on discharge instructions, follow up and referral plans. no drinking with medication, no driving heavy equipment, medication usage, Demonstrated understanding of instructions, follow-up care, medications, Prescriptions given X 3. 04:48 Patient left the ED. tw5 Signatures: Rashad Melgoza MD MD cha Salyer, Jose Garnica, RN RN da3 Marissa Wilkins tw5
[2021-11-07 05:20] LABS: Urine Specific Gravity/Preg 1.015 (1.005-1.030)
--- NOTE | 2021-11-07 07:34 | RAD REPORT ---
EXAM DESCRIPTION: RAD - Lumbar Spine 3 Views - 11/07/2021 4:21 am CLINICAL HISTORY: PAIN COMPARISON: Lumbar Spine 3 Views dated 11/26/2019 FINDINGS: No acute fracture. No malalignment. No significant focal degenerative changes. IMPRESSION: No acute osseous abnormality involving the lumbar spine.
[2021-11-07 08:39] VITALS: TEMP 98.6
[2021-11-07 08:40] VITALS: BP 144/81
[2021-11-07 08:42] VITALS: O2SAT 100
== END 2021-11-07 04:48 | disposition home or self-care (01) ==
LOC: ER 02:48
DX: M54.50 Low back pain, unspecified (principal); E11.9 Type 2 diabetes mellitus without complications; W18.30XA Fall on same level, unspecified, initial encounter
CPT/HCPCS: 72100; 81003; 81025; 99284

== ENCOUNTER 2021-11-14 21:44 | Emergency (ER) | payer SELFPAY ==
[2021-11-14] MEDS ORDERED: FENTANYL CITR 100 MCG/2 ML ONE (22:45)
[2021-11-14] MEDS ORDERED: DIAZEPAM 10 MG/2 ML INJ SYRINGE ONE (22:46)
[2021-11-14] MEDS ORDERED: ONDANSETRON 4 MG/2 ML VIAL ONE (22:46)
[2021-11-15] MEDS ORDERED: DIAZEPAM 10 MG/2 ML INJ SYRINGE ONE (00:48)
--- NOTE | 2021-11-15 02:23 | EDPHYS ---
Physician Documentation [facility] Name: Ara Mercado Age: 36 yrs Sex: Female : 1985 Arrival Date: 11/14/2021 Time: 21:47 Bed 8 Private MD: ED Physician Alex Lemons HPI: 11/14 22:32 This 36 yrs old Female presents to ER via Ambulatory with complaints of Low Back Pain, jmm Leg Pain. 22:32 The patient presents with pain that is acute. The symptoms are located in the low back. jmm Location: left flank and left low back. Onset: The symptoms/episode began/occurred acutely, 4 day(s) ago. Modifying factors: The patient symptoms are alleviated by nothing, the patient symptoms are aggravated by any movement. Associated signs and symptoms: Pertinent negatives: fever. 36-year-old female with a history of diabetes mellitus that presents emerged department with complaints of left hip pain and lower back pain which occurred after a fall. Patient states she was initially evaluated in the ED with no acute injuries appreciated. Patient states she is had progressively worsening pain.. 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 - Social history:: Smoking status: Patient reports the use of cigarette tobacco products, smokes one pack cigarettes per day. Patient/guardian denies using alcohol, street drugs. ROS: 22:32 Constitutional: Negative for fever, chills, and weight loss, Cardiovascular: Negative jmm for chest pain, palpitations, and edema, Respiratory: Negative for shortness of breath, cough, wheezing, and pleuritic chest pain, Abdomen/GI: Negative for abdominal pain, nausea, vomiting, diarrhea, and constipation. 22:32 Back: Positive for pain with movement. 22:32 All other systems are negative. Exam: 22:32 Constitutional: This is a well developed, well nourished patient who is awake, alert, jmm and in no acute distress. Head/Face: atraumatic. Eyes: EOMI, no conjunctival erythema appreciated ENT: Moist Mucus Membranes Neck: Trachea midline, Supple Chest/axilla: Normal chest wall appearance and motion. Cardiovascular: Regular rate and rhythm. No edema appreciated Respiratory: Normal respirations, no respiratory distress appreciated Abdomen/GI: Non distended, soft Back: Normal ROM 22:32 Back: pain, that is moderate, of the lumbar area. 22:32 Musculoskeletal/extremity: Pain appreciated on palpation of the left proximal femur region. 22:32 Skin: Appearance: Color: normal in color. 22:32 Neuro: Orientation: is normal, Mentation: is normal, Memory: is normal. 22:32 Psych: Behavior/mood is anxious. Vital Signs: 22:08 BP 127 / 82; Pulse 96; Resp 18; Temp 98.4(TE); Pulse Ox 100% on R/A; Weight 71.67 kg; ld1 Height 5 ft. 2 in. (157.48 cm); Pain 10/10; 22:59 BP 113 / 65; Pulse 68; Resp 20 S; Pulse Ox 98% on R/A; as6 11/15 00:42 BP 127 / 72; Pulse 87; Resp 18 S; Pulse Ox 100% on R/A; as6 02:14 BP 126 / 83; Pulse 88; Resp 16 S; Pulse Ox 100% on R/A; as6 11/14 22:08 Body Mass Index 28.90 (71.67 kg, 157.48 cm) ld1 MDM: 11/14 22:32 Patient medically screened. [facility] 11/15 02:21 Data reviewed: vital signs, nurses notes. Counseling: I had a detailed discussion with delia the patient and/or guardian regarding: the historical points, exam findings, and any diagnostic results supporting the discharge/admit diagnosis, radiology results, the need for outpatient follow up, to return to the emergency department if symptoms worsen or persist or if there are any questions or concerns that arise at home. 11/14 23:43 Order name: Urine --Ancillary (enter results); Complete Time: 00:02 2 11/14 22:33 Order name: CT Stone Protocol [facility] 11/14 22:33 Order name: Saline Lock; Complete Time: 22:58 [facility] 11/14 23:06 Order name: Urine Test (obtain specimen); Complete Time: 23:41 [facility] Administered Medications: 11/14 22:50 Drug: fentaNYL (PF) 50 mcg Route: IVP; Site: right antecubital; as6 22:50 Drug: Zofran (Ondansetron) 4 mg Route: IVP; Site: right antecubital; as6 22:50 Drug: Valium (diazepam) 2 mg Route: IVP; Site: right antecubital; as6 11/15 00:51 Drug: Valium (diazepam) 5 mg Route: IVP; Site: right antecubital; as6 Disposition: 04:41 Co-signature as Attending Physician, Alex Lemons MD I agree with the assessment and rn plan of care. Attestation: The patient's history, exam findings, diagnostics, and a summary of any interventions or procedures was reviewed in detail with Michael COOPER. Disposition Summary: 11/15/21 02:22 Discharge Ordered Location: Home [facility] Condition: Stable [facility] Diagnosis - Pain in left hip jm - Low back pain [facility] Followup: [facility] - With: Private Physician - When: 2 - 3 days - Reason: Recheck today's complaints, Continuance of care, Re-evaluation by your physician Discharge Instructions: - Discharge Summary Sheet [facility] - Musculoskeletal Pain [facility] Forms: - Medication Reconciliation Form [facility] - Thank You Letter [facility] - Antibiotic Education [facility] - Prescription Opioid Use [facility] Prescriptions: - gabapentin 100 mg Oral capsule - take 3 capsule by ORAL route every 8 hours; 30 capsule; Refills: 0, Product [facility] Selection Permitted - orphenadrine citrate 100 mg Oral Tablet Sustained Release - take 1 tablet by ORAL route 2 times per day As needed; 20 tablet; Refills: 0, [facility] Product Selection Permitted Signatures: Dispatcher [employer] Michael Beltran PA PA jmm Nieto, Roman, MD MD rn Dibbern, Lauren, RN RN ld1 Elver Ceja RN RN as6
--- NOTE | 2021-11-15 02:23 | ER ---
Nurse's Notes [facility] Name: Ara Mercado Age: 36 yrs Sex: Female : 1985 Arrival Date: 11/14/2021 Time: 21:47 Bed 8 Private MD: Diagnosis: Pain in left hip;Low back pain Presentation: 11/14 22:08 Chief complaint: Patient states: My left hip began hurting for four days, now it is ld1 hurting really bad. "I can't even touch it.". Coronavirus screen: At this time, the client does not indicate any symptoms associated with coronavirus-19. Ebola Screen: No symptoms or risks identified at this time. Initial Sepsis Screen: Does the patient meet any 2 criteria? No. Patient's initial sepsis screen is negative. Does the patient have a suspected source of infection? No. Patient's initial sepsis screen is negative. Risk Assessment: Do you want to hurt yourself or someone else? Patient reports no desire to harm self or others. Onset of symptoms was November 14, 2021. 22:08 Method Of Arrival: Ambulatory ld1 22:08 Acuity: CHARISSA 4 ld1 Triage Assessment: 22:09 General: Appears in no apparent distress. comfortable, Behavior is anxious. Pain: ld1 Complains of pain in left hip. Respiratory: Airway is patent Respiratory effort is even, unlabored. 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 - Social history:: Smoking status: Patient reports the use of cigarette tobacco products, smokes one pack cigarettes per day. Patient/guardian denies using alcohol, street drugs. Screenin:00 Abuse screen: Denies threats or abuse. Nutritional screening: No deficits noted. as6 Tuberculosis screening: No symptoms or risk factors identified. Fall Risk None identified. Assessment: 22:32 General: see triage assessment . as6 11/15 00:41 General: pt in pain to r flank "I am hurting bad, it feels like I wasn't given as6 anything" provider notified . 02:14 Reassessment: Patient and/or family updated on plan of care and expected duration. Pain as6 level reassessed. Patient is alert, oriented x 3, equal unlabored respirations, skin warm/dry/pink. pt resting with eyes closed. 02:55 General: Appears in no apparent distress. tw5 Vital Signs: 11/14 22:08 BP 127 / 82; Pulse 96; Resp 18; Temp 98.4(TE); Pulse Ox 100% on R/A; Weight 71.67 kg; ld1 Height 5 ft. 2 in. (157.48 cm); Pain 10/10; 22:59 BP 113 / 65; Pulse 68; Resp 20 S; Pulse Ox 98% on R/A; as6 11/15 00:42 BP 127 / 72; Pulse 87; Resp 18 S; Pulse Ox 100% on R/A; as6 02:14 BP 126 / 83; Pulse 88; Resp 16 S; Pulse Ox 100% on R/A; as6 11/14 22:08 Body Mass Index 28.90 (71.67 kg, 157.48 cm) ld1 ED Course: 11/14 21:47 Patient arrived in ED. ja2 22:09 Triage completed. ld1 22:09 Arm band placed on right wrist. ld1 22:15 Michael Emmanuel PA is PHCP. jmm 22:15 Alex Lemons MD is Attending Physician. jmm 22:27 Elver Ceja RN is Primary Nurse. as6 23:00 Bed in low position. Call light in reach. Side rails up X2. Pulse ox on. NIBP on. Warm as6 blanket given. 23:26 Inserted saline lock: 20 gauge in right antecubital area, using aseptic technique. as6 11/15 01:00 CT Stone Protocol In Process Unspecified. EDMS 02:55 No provider procedures requiring assistance completed. IV discontinued, intact, tw5 bleeding controlled, No redness/swelling at site. Pressure dressing applied. Administered Medications: 11/14 22:50 Drug: fentaNYL (PF) 50 mcg Route: IVP; Site: right antecubital; as6 22:50 Drug: Zofran (Ondansetron) 4 mg Route: IVP; Site: right antecubital; as6 22:50 Drug: Valium (diazepam) 2 mg Route: IVP; Site: right antecubital; as6 11/15 00:51 Drug: Valium (diazepam) 5 mg Route: IVP; Site: right antecubital; as6 Outcome: 02:22 Discharge ordered by . delia 02:55 Discharged to home ambulatory. tw 02:55 Condition: good 02:55 Condition: good 02:55 Discharge instructions given to patient, Instructed on discharge instructions, follow up and referral plans. Demonstrated understanding of instructions, follow-up care, medications, Prescriptions given X 2. 02:55 Patient left the ED. tw5 Signatures: Dispatcher [employer] EDMS Michael Emmanuel PA PA jmm Dibbern, Lauren, RN RN ld1 Shasha Taylor Tiffany tw5 Elver Ceja RN RN as6
[2021-11-15 03:03] VITALS: TEMP 98.4
[2021-11-15 03:06] VITALS: O2SAT 100
[2021-11-15 03:07] VITALS: BP 126/83
--- NOTE | 2021-11-15 12:34 | RAD REPORT ---
EXAM DESCRIPTION: CT - Stone Protocol - 11/15/2021 5:31 am CLINICAL HISTORY: 36 years, Female, low back pain, left hip pain COMPARISON: 10/02/2021. TECHNIQUE: Multiple transaxial tomograms of the abdomen and pelvis were performed from the lung base s to the symphysis pubis 3 mm slice thickness at 3 mm interval reconstruction, without administration of IV and oral contrast. Multiplanar reformats in the sagittal and coronal plane were generated and reviewed. This exam was performed according to our departmental dose-optimization protocol, which includes auto mated exposure control, adjustment of the mA and/or kV according to patient size and/or use of iterat yessenia reconstruction technique. FINDINGS: The lack of IV and oral contrast limits evaluation of solid organs, subtle lesions cannot be excluded. The lung bases demonstrate to be clear. Grossly the unopacified liver, pancreas, spleen and adrenal glands demonstrate to be within normal li mits, no significant focal lesions were identified. Surgical clips within the gallbladder fossa cor respond to previous cholecystectomy. The kidneys demonstrate grossly unremarkable. There is no evidence for nephrolithiasis and/or hydro nephrosis. No focal masses were demonstrated. The ureters displays normal appearance with normal caliber, no hydroureter was seen. Grossly the unopacified stomach, small bowel and large bowel demonstrate to be within normal limits. There is no evidence for bowel dilatation/or free air. The appendix is normal.. The urinary bladder demonstrate to be within normal limits. The uterus demonstrate to be within adonis l limits. No adnexal masses are identified. There are benign coarse ossifications within the pelvic f esther corresponding to phlebolith The aorta demonstrate to be within normal limits. There is no retr operitoneal lymphadenopathy. There is no evidence for ascites. The rest of the soft tissue demonstr ate to be grossly unremarkable. IMPRESSION: No evidence for nephrolithiasis and/or hydronephrosis. Status post cholecystectomy. Electronically signed by: Kvng Fry MD 11/15/2021 1:16 AM CAMP ADVISOR Due to temporary technical issues with the PACS/Fluency reporting system, reports are being signed by the in house radiologist without review as a courtesy to ensure prompt reporting. The interpreting r adiologist is fully responsible for the content of the report.
[2021-11-20 13:20] LABS: Urine Blood Negative (Negative); Urine Glucose 2+ (Negative); Urine Protein Negative (Negative)
== END 2021-11-15 02:55 | disposition home or self-care (01) ==
LOC: ER 21:44
DX: M54.50 Low back pain, unspecified (principal); E11.9 Type 2 diabetes mellitus without complications; F17.210 Nicotine dependence, cigarettes, uncomplicated
CPT/HCPCS: 74176; 76377; 81003; 81025; 96374; 96375; 99284; J2405; J3010; J3360

== ENCOUNTER 2021-12-12 01:30 | Emergency (ER) | payer SELFPAY ==
[2021-12-12 02:14] LABS: Urine Blood Trace-intact (Negative); Urine Glucose 3+ (Negative); Urine Protein Negative (Negative); Urine Specific Gravity 1.015 (1.005-1.030)
--- NOTE | 2021-12-12 02:39 | ER ---
Nurse's Notes [facility] Name: Ara Mercado Age: 36 yrs Sex: Female : 1985 Arrival Date: 12/12/2021 Time: 01:32 Bed 14 Private MD: Diagnosis: Cutaneous abscess of groin;Neuropathy Presentation: 12/12 01:51 Chief complaint: Patient states: C/o pain that started at the L lateral hip and ld1 radiates into the L groin x4 weeks, also reports an ongoing small skin erruption that 'pops then just comes back'. Hx DM, cholecystectomy. Coronavirus screen: Vaccine status: Patient reports being unvaccinated. Ebola Screen: Patient negative for fever greater than or equal to 101.5 degrees Fahrenheit, and additional compatible Ebola Virus Disease symptoms. Initial Sepsis Screen: Does the patient meet any 2 criteria? No. Patient's initial sepsis screen is negative. Does the patient have a suspected source of infection? No. Patient's initial sepsis screen is negative. Risk Assessment: Do you want to hurt yourself or someone else? Patient reports no desire to harm self or others. Onset of symptoms was November 19, 2021. 01:51 Method Of Arrival: Ambulatory ld1 01:51 Acuity: CHARISSA 4 ld1 Triage Assessment: 01:53 General: Appears uncomfortable, Behavior is cooperative. Pain: Complains of pain in ld1 pelvis Pain radiates to pelvis Pain currently is 9 out of 10 on a pain scale. Quality of pain is described as radiating, shooting, Pain began weeks. 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 - Social history:: Smoking status: Patient denies any tobacco usage or history of. Screenin:53 Abuse screen: Denies threats or abuse. Nutritional screening: No deficits noted. ld1 Tuberculosis screening: No symptoms or risk factors identified. Fall Risk No fall in past 12 months (0 pts). No secondary diagnosis (0 pts). IV access (20 points). Ambulatory Aid- None/Bed Rest/Nurse Assist (0 pts). Gait- Normal/Bed Rest/Wheelchair (0 pts) Mental Status- Oriented to own ability (0 pts). Total Hannah Fall Scale indicates No Risk (0-24 pts). Assessment: 03:03 Reassessment: All labs and imaging completed. Medicated po for pain. Cleared for sv1 discharge to home by the provider. . Vital Signs: 01:51 BP 150 / 84; Pulse 100; Resp 18; Temp 98.3; Pulse Ox 100% on R/A; Weight 69.85 kg; ld1 Height 5 ft. 2 in. (157.48 cm); 01:53 BP 155 / 88; Pulse 98; Resp 20; Temp 99.2; Pulse Ox 97% 0 lpm ; sv1 03:05 BP 126 / 89; Pulse 90; Resp 16; Pulse Ox 100% 0 lpm ; Pain 4/10; sv1 01:51 Body Mass Index 28.17 (69.85 kg, 157.48 cm) ld1 ED Course: 01:32 Patient arrived in ED. wm 01:43 [facility] kb 01:43 Alex Lemons MD is Attending Physician. kb 01:50 Fidencio Seymour, VÍCTOR is Primary Nurse. sv1 01:53 Triage completed. ld1 02:20 Urine --Ancillary (enter results) Sent. sv1 02:20 Arm band placed on right wrist. sv1 02:29 Hip Left 2 View XRAY In Process Unspecified. EDMS 03:03 No provider procedures requiring assistance completed. Patient did not have IV access sv1 during this emergency room visit. 03:03 Patient has correct armband on for positive identification. Bed in low position. Call sv1 light in reach. Side rails up X2. Adult w/ patient. Administered Medications: 03:00 Drug: [place] (HYDROcodone-acetaminophen) (7.5 mg-325 mg) 1 tabs Route: PO; sv1 03:05 Follow up: Response: No adverse reaction sv1 Point of Care Testing: Urine : 02:20 hCG Reading: Negative; Control Reading: Negative; sv1 Outcome: 02:38 Discharge ordered by MD. turcios 03:03 Discharged to home ambulatory, with family. sv1 03:03 Condition: good 03:03 Discharge instructions given to patient, family. 03:09 Patient left the ED. sv1 Signatures: Dispatcher [employer] EDCelina Valle FNP-C FNP-Linsey Vaughn RN RN ld1 Analia Kaminski Steven, RN RN sv1
--- NOTE | 2021-12-12 02:39 | EDPHYS ---
Physician Documentation [facility] [place] Name: Ara Mercado Age: 36 yrs Sex: Female : 1985 Arrival Date: 12/12/2021 Time: 01:32 Bed 14 Private MD: ED Physician Alex Lemons HPI: 12/12 02:04 This 36 yrs old Female presents to ER via Ambulatory with complaints of Low Back Pain, kb Hip Pain, Pelvic Pain. 02:04 The patient or guardian reports pain. that occurred at home, There is no obvious kb deformity, The patient is able to self ambulate. The patient is able to bear their full body weight. The complaints affect the left hip and left femoral area. Onset: The symptoms/episode began/occurred 4 week(s) ago. Modifying factors: The symptoms are alleviated by nothing, the symptoms are aggravated by nothing. Associated signs and symptoms: Loss of consciousness: the patient experienced no loss of consciousness. Severity of symptoms: At their worst the symptoms were moderate, in the emergency department the symptoms are unchanged. The patient has not experienced similar symptoms in the past. The patient has not recently seen a physician. Pt reports she has had a cyst on her left groin that comes up, pops and goes away then comes back again for a while. States she has had pain to left hip for 4 weeks. States it is a burning pain and makes the skin painful to touch.. 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 - Social history:: Smoking status: Patient denies any tobacco usage or history of. ROS: 01:56 Constitutional: Negative for fever, chills, and weight loss. kb 01:56 MS/extremity: Positive for pain, of the left femoral area and left hip. 02:01 Skin: Positive for abscess, of the left femoral area. kb 02:01 All other systems are negative. Exam: 02:03 Constitutional: This is a well developed, well nourished patient who is awake, alert, kb and in no acute distress. Head/Face: Normocephalic, atraumatic. ENT: Moist Mucous membranes Cardiovascular: Regular rate and rhythm with a normal S1 and S2. No gallops, murmurs, or rubs. No pulse deficits. Respiratory: Respirations even and unlabored. No increased work of breathing. Talking in full sentences Abdomen/GI: Soft, non-tender. No distention Neuro: Awake and alert, GCS 15, oriented to person, place, time, and situation. Moves all extremities. Normal gait. Psych: Awake, alert, with orientation to person, place and time. Behavior, mood, and affect are within normal limits. 02:03 Musculoskeletal/extremity: Extremities: grossly normal except: noted in the left hip and left femoral area: pain, tenderness, ROM: intact in all extremities, Circulation is intact in all extremities. Sensation intact. Weight bearing: able to fully bear weight. 02:03 Skin: abscess, that is small, of the left femoral area, with induration. Vital Signs: 01:51 BP 150 / 84; Pulse 100; Resp 18; Temp 98.3; Pulse Ox 100% on R/A; Weight 69.85 kg; ld1 Height 5 ft. 2 in. (157.48 cm); 01:53 BP 155 / 88; Pulse 98; Resp 20; Temp 99.2; Pulse Ox 97% 0 lpm ; sv1 03:05 BP 126 / 89; Pulse 90; Resp 16; Pulse Ox 100% 0 lpm ; Pain 4/10; sv1 01:51 Body Mass Index 28.17 (69.85 kg, 157.48 cm) ld1 MDM: 01:43 Patient medically screened. kb 01:50 Data reviewed: vital signs, nurses notes. Data interpreted: Pulse oximetry: on room air kb is 100 %. Interpretation: normal. 02:37 Counseling: I had a detailed discussion with the patient and/or guardian regarding: the kb historical points, exam findings, and any diagnostic results supporting the discharge/admit diagnosis, lab results, radiology results, the need for outpatient follow up, a family practitioner, to return to the emergency department if symptoms worsen or persist or if there are any questions or concerns that arise at home. 12/12 02:13 Order name: Urine Dipstick-Ancillary; Complete Time: 02:18 EDMS 12/12 02:16 Order name: Urine --Ancillary (enter results) lp1 12/12 01:51 Order name: Hip Left 2 View XRAY kb 12/12 02:02 Order name: Urine Dipstick-Ancillary (obtain specimen); Complete Time: 02:16 kb 12/12 02:02 Order name: Urine Test (obtain specimen); Complete Time: 02:16 kb Administered Medications: 03:00 Drug: Martin (HYDROcodone-acetaminophen) (7.5 mg-325 mg) 1 tabs Route: PO; sv1 03:05 Follow up: Response: No adverse reaction sv1 Point of Care Testing: Urine : 02:20 hCG Reading: Negative; Control Reading: Negative; sv1 Disposition: 03:37 Co-signature as Attending Physician, Alex Lemons MD. rn Disposition Summary: 12/12/21 02:38 Discharge Ordered Location: Home kb Condition: Stable kb Diagnosis - Cutaneous abscess of groin kb - Neuropathy kb Followup: kb - With: Emergency Department - When: As needed - Reason: Worsening of condition Followup: kb - With: Private Physician - When: 2 - 3 days - Reason: Recheck today's complaints, Continuance of care, Re-evaluation by your physician Discharge Instructions: - Discharge Summary Sheet kb - Skin Abscess, [id number] kb - Peripheral Neuropathy kb Forms: - Medication Reconciliation Form kb - Thank You Letter kb - Antibiotic Education kb - Prescription Opioid Use kb Prescriptions: - Doxycycline Hyclate 100 mg Oral Tablet - take 1 tablet by ORAL route every 12 hours for 7 days; 14 tablet; Refills: 0, kb Product Selection Permitted Signatures: Dispatcher [employer] EDSD Celina Driver FNP-C FNP-Alex Rosales MD MD rn Dibbern, Lauren, RN RN ld1 Fidencio Seymour RN RN sv1
[2021-12-12] MEDS ORDERED: HYDROCODONE/APAP 7.5/325 MG TAB ONE (02:57)
[2021-12-12 03:15] VITALS: TEMP 99.2
[2021-12-12 03:17] VITALS: BP 126/89; O2SAT 100
[2021-12-12 03:21] LABS: Urine Specific Gravity/Preg 1.015 (1.005-1.030)
--- NOTE | 2021-12-12 07:51 | RAD REPORT ---
EXAM DESCRIPTION: RAD - Hip Left 2 View - 12/12/2021 2:29 am CLINICAL HISTORY: PAIN COMPARISON: No comparisons FINDINGS: No acute fracture. No malalignment. No significant focal degenerative changes. IMPRESSION: No acute osseous abnormality involving the left hip.
== END 2021-12-12 03:09 | disposition home or self-care (01) ==
LOC: ER 01:30
DX: E11.40 Type 2 diabetes mellitus with diabetic neuropathy, unspecified (principal); L02.214 Cutaneous abscess of groin; Z88.1 Allergy status to other antibiotic agents; Z88.5 Allergy status to narcotic agent; Z88.8 Allergy status to other drugs, medicaments and biological substances
CPT/HCPCS: 81003; 81025; 99284

== ENCOUNTER 2021-12-24 01:08 | Emergency (ER) | payer SELFPAY ==
[2021-12-24 02:34] LABS: Urine Blood Negative (Negative); Urine Glucose 2+ (Negative); Urine Protein Negative (Negative)
[2021-12-24] MEDS ORDERED: ONDANSETRON 4 MG/2 ML VIAL ONE (02:36)
[2021-12-24] MEDS ORDERED: MEPERIDINE HCL 25 MG/ML SYR ONE (02:37)
--- NOTE | 2021-12-24 03:35 | ER ---
Nurse's Notes [facility] Name: Ara Mercado Age: 36 yrs Sex: Female : 1985 Arrival Date: 12/24/2021 Time: 01:11 Bed 6 Private MD: Diagnosis: Pain in left hip Presentation: 12/24 01:29 Chief complaint: Patient states: Left hip pain, burning sensation x 6 weeks, reports lp1 pain worse tonight; Pain with walking, palpation, "anything that rubs that area". Coronavirus screen: At this time, the client does not indicate any symptoms associated with coronavirus-19. Ebola Screen: No symptoms or risks identified at this time. Risk Assessment: Do you want to hurt yourself or someone else? Patient reports no desire to harm self or others. Onset of symptoms was December 24, 2021. 01:29 Method Of Arrival: Ambulatory lp1 01:29 Acuity: CHARISSA 4 lp1 01:32 Initial Sepsis Screen: Does the patient meet any 2 criteria? No. Patient's initial lp1 sepsis screen is negative. Does the patient have a suspected source of infection? No. Patient's initial sepsis screen is negative. 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 - Social history:: Smoking status: Patient reports the use of cigarette tobacco products, smokes one pack cigarettes per day. Screenin: Abuse screen: Denies threats or abuse. Denies injuries from another. Nutritional lp1 screening: No deficits noted. Tuberculosis screening: No symptoms or risk factors identified. Fall Risk None identified. Assessment: 01:33 General: Appears uncomfortable, Behavior is appropriate for age. Pain: Complains of lp1 pain in left hip Pain radiates to left femoral area Pain currently is 9 out of 10 on a pain scale. Quality of pain is described as burning. Neuro: Level of Consciousness is awake, alert, obeys commands. Cardiovascular: Patient's skin is warm and dry. Respiratory: Respiratory effort is even, unlabored. GI: No signs and/or symptoms were reported involving the gastrointestinal system. : No signs and/or symptoms were reported regarding the genitourinary system. EENT: No signs and/or symptoms were reported regarding the EENT system. Derm: Skin is pink, warm \\T\\ dry. Musculoskeletal: Circulation, motion, and sensation intact. Reports pain in left hip. 02:15 Reassessment: No changes from previously documented assessment. sm5 03:35 Reassessment: No changes from previously documented assessment. Patient is alert, sm5 oriented x 3, equal unlabored respirations, skin warm/dry/pink. Vital Signs: 01:32 BP 136 / 85; Pulse 99; Resp 18; Temp 98.3(TE); Pulse Ox 99% on R/A; Weight 72.57 kg lp1 (R); Height 5 ft. 2 in. (157.48 cm); Pain 9/10; 02:41 BP 133 / 84; Pulse 96; Resp 19; Pulse Ox 100% on R/A; sm5 03:36 BP 125 / 78; Pulse 82; Resp 17; Pulse Ox 100% on R/A; sm5 01:32 Body Mass Index 29.26 (72.57 kg, 157.48 cm) lp1 ED Course: 01:11 Patient arrived in ED. wm 01:30 Triage completed. lp1 01:30 Arm band placed on. lp1 01:32 Patient has correct armband on for positive identification. lp1 01:42 Renetta Barnes RN is Primary Nurse. sm5 01:44 Alexandru Fields NP is PHCP. pm1 01:44 Papito Castro MD is Attending Physician. pm1 02:00 Inserted saline lock: 20 gauge in right forearm, using aseptic technique. sm5 03:16 CT Stone Protocol In Process Unspecified. EDMS 03:58 No provider procedures requiring assistance completed. IV discontinued, intact, sm5 bleeding controlled, No redness/swelling at site. Pressure dressing applied. Administered Medications: 02:14 Not Given (Physician Discretion): fentaNYL (PF) 50 mcg IVP once; RASS on ADMIN: pm1 Combtv4, Very Agttd3, Agttd2, Rstlss1, AlertClm0, Drwsy-1, Lt Sdtn-2, Mod Sdtn-3, Dp Sdtn-4, UnArsble-5 02:40 Drug: Zofran (Ondansetron) 4 mg Route: IVP; Site: right forearm; sm5 02:40 Drug: Demerol (meperidine) 25 mg Route: IVP; Site: right forearm; sm5 03:55 Drug: Lidoderm Patch 5 % (700 mg/patch) 1 patches {Note: left hip.} Route: Topical; 5 Site: affected area; Outcome: 03:35 Discharge ordered by MD. pm1 03:58 Discharged to home ambulatory. sm5 03:58 Condition: stable 03:58 Discharge instructions given to patient, Instructed on discharge instructions, follow up and referral plans. medication usage, Demonstrated understanding of instructions, follow-up care, medications, Prescriptions given X 2. 03:59 Patient left the ED. 5 Signatures: Dispatcher [employer] EDMS Nat Snider RN RN lp1 Alexandru Fields NP NUCLEAR EQUIPMENT TEST ENGINEER pm1 Analia Kaminski Sarah, RN RN sm5 Corrections: (The following items were deleted from the chart) 01:34 01:32 Temp 98.3F Temporal; 72.57 kg Reported; Height 5 ft. 2 in.; BMI: 29.2; Pain 9/10; lp1 lp1
--- NOTE | 2021-12-24 03:36 | EDPHYS ---
Physician Documentation [facility] Name: Ara Mercado Age: 36 yrs Sex: Female : 1985 Arrival Date: 12/24/2021 Time: 01:11 Bed 6 Private MD: ED Physician Papito Castro HPI: 12/24 02:17 This 36 yrs old Female presents to ER via Ambulatory with complaints of Left Hip Pain. pm1 02:17 The patient or guardian reports pain. sustained from a fall, many weeks ago. Patient pm1 seen in the ER 6 weeks ago for the same complaint CT negative for any acute findings. Patient reports today pain has continued to the left buttocks radiating into the left groin. Described as burning sensation, anything that touches the area lightly causes pain, There is no obvious deformity, The patient is able to bear their full body weight. The complaints affect the left hip. Onset: The symptoms/episode began/occurred 6 week(s) ago. Modifying factors: The symptoms are alleviated by nothing, the symptoms are aggravated by touching of clothing. Associated signs and symptoms: Pertinent negatives: dysuria, fever. The patient has been recently seen by a physician: The patient has been recently seen at the [facility] Emergency Department, for unrelated complaints, left groin abscess. 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 - Social history:: Smoking status: Patient reports the use of cigarette tobacco products, smokes one pack cigarettes per day. ROS: 02:17 Constitutional: Negative for fever, chills, and weight loss, Cardiovascular: Negative pm1 for chest pain, palpitations, and edema, Respiratory: Negative for shortness of breath, cough, wheezing, and pleuritic chest pain, Abdomen/GI: Negative for abdominal pain, nausea, vomiting, diarrhea, and constipation, Back: Negative for injury and pain. 02:17 Skin: Negative for injury, rash, and discoloration. 02:17 MS/extremity: Positive for pain, of the left hip, Negative for decreased range of motion, deformity. 02:17 All other systems are negative. Exam: 02:17 Constitutional: This is a well developed, well nourished patient who is awake, alert, pm1 and in no acute distress. Head/Face: Normocephalic, atraumatic. 02:17 Skin: Warm, dry with normal turgor. Normal color with no rashes, no lesions, and no evidence of cellulitis. 02:17 Cardiovascular: Exam negative for acute changes, Rate: normal, Rhythm: regular, Pulses: no pulse deficits are appreciated. 02:17 Respiratory: Exam negative for acute changes, respiratory distress, shortness of breath. 02:17 Musculoskeletal/extremity: Extremities: grossly normal except: noted in the left gluteus misbah: tenderness, There is no evidence of decreased ROM, deformity. Vital Signs: 01:32 BP 136 / 85; Pulse 99; Resp 18; Temp 98.3(TE); Pulse Ox 99% on R/A; Weight 72.57 kg lp1 (R); Height 5 ft. 2 in. (157.48 cm); Pain 9/10; 02:41 BP 133 / 84; Pulse 96; Resp 19; Pulse Ox 100% on R/A; sm5 03:36 BP 125 / 78; Pulse 82; Resp 17; Pulse Ox 100% on R/A; sm5 01:32 Body Mass Index 29.26 (72.57 kg, 157.48 cm) lp1 MDM: 01:56 Patient medically screened. pm1 02:24 Data reviewed: vital signs. Data interpreted: Pulse oximetry: on room air is 99 %. pm1 Interpretation: normal. 03:34 Counseling: I had a detailed discussion with the patient and/or guardian regarding: the pm1 historical points, exam findings, and any diagnostic results supporting the discharge/admit diagnosis, radiology results, the need for outpatient follow up, to return to the emergency department if symptoms worsen or persist or if there are any questions or concerns that arise at home. 03:44 ED course: Patient requesting tramadol for prescription pain medication. Patient took pm1 sulfa and tramadol at the same time and she believes it was sulfa giving her the reaction. Reaction hives. 03:48 ED course: PMP[place] reviewed. pm1 12/24 02:33 Order name: Urine Dipstick-Ancillary EDMS 12/24 02:40 Order name: Urine --Ancillary (enter results) lp1 12/24 02:00 Order name: CT Stone Protocol pm1 12/24 02:41 Order name: Urine --Ancillary EDMS 12/24 02:00 Order name: Urine Dipstick-Ancillary (obtain specimen); Complete Time: 02:33 pm1 12/24 02:00 Order name: Urine Test (obtain specimen); Complete Time: 02:33 pm1 Administered Medications: 02:14 Not Given (Physician Discretion): fentaNYL (PF) 50 mcg IVP once; RASS on ADMIN: pm1 Combtv4, Very Agttd3, Agttd2, Rstlss1, AlertClm0, Drwsy-1, Lt Sdtn-2, Mod Sdtn-3, Dp Sdtn-4, UnArsble-5 02:40 Drug: Zofran (Ondansetron) 4 mg Route: IVP; Site: right forearm; sm5 02:40 Drug: Demerol (meperidine) 25 mg Route: IVP; Site: right forearm; sm5 03:55 Drug: Lidoderm Patch 5 % (700 mg/patch) 1 patches {Note: left hip.} Route: Topical; sm5 Site: affected area; Disposition: 04:25 Co-signature as Attending Physician, Papito Castro MD. mh7 Disposition Summary: 12/24/21 03:35 Discharge Ordered Location: Home pm1 Problem: new pm1 Symptoms: have improved pm1 Condition: Stable pm1 Diagnosis - Pain in left hip pm1 Followup: pm1 - With: Emergency Department - When: As needed - Reason: Worsening of condition Followup: pm1 - With: Private Physician - When: 2 - 3 days - Reason: Recheck today's complaints, Continuance of care, Re-evaluation by your physician Discharge Instructions: - Discharge Summary Sheet pm1 - Sciatica pm1 - Hip Pain pm1 Forms: - Medication Reconciliation Form pm1 - Thank You Letter pm1 - Antibiotic Education pm1 - Prescription Opioid Use pm1 Prescriptions: - Lidoderm 5 % Topical adhesive patch,medicated - apply 1 patch by TRANSDERMAL route once daily As needed 12 hours on and 12 pm1 hours off in a 24 hour period; 10 patch; Refills: 0, Product Selection Permitted - Tramadol 50 mg Oral Tablet - take 1 tablet by ORAL route every 8 hours as needed; 12 tablet; Refills: 0, pm1 Product Selection Permitted Signatures: Dispatcher [employer] Nat Root RN RN lp1 Alexandru Fields NP MARINE OILER pm1 Papito Castro MD MD 7 Renetta Barnes RN RN sm5
[2021-12-24] MEDS ORDERED: LIDOCAINE 4% PATCH ONE (03:45)
[2021-12-24 04:07] VITALS: TEMP 98.3
[2021-12-24 04:09] VITALS: O2SAT 100
[2021-12-24 04:10] VITALS: BP 125/78
--- NOTE | 2021-12-24 13:16 | RAD REPORT ---
EXAM DESCRIPTION: CT Abdomen and Pelvis Without Intravenous Contrast CLINICAL HISTORY: Left hip and flank pain TECHNIQUE: Axial computed tomography images of the abdomen and pelvis without intravenous contrast. Sagittal and coronal reformatted images were created and reviewed. This CT exam was performed usi ng one or more of the following dose reduction techniques: automated exposure control, adjustment o f the mA and/or kV according to patient size, and/or use of iterative reconstruction technique. COMPARISON: 11/15/2021 FINDINGS: Lung bases: Unremarkable. No mass. No consolidation. ABDOMEN: Liver: Unremarkable. Gallbladder and bile ducts: Prior cholecystectomy. No ductal dilation. Pancreas: Unremarkable. No ductal dilation. Spleen: Unremarkable. No splenomegaly. Adrenals: Unremarkable. No mass. Kidneys and ureters: Unremarkable. No obstructing stones. No hydronephrosis. Stomach and bowel: Moderate stool throughout the large bowel. No bowel obstruction. No mucosal th ickening. PELVIS: Appendix: Normal caliber appendix. No findings to suggest acute appendicitis. Bladder: Unremarkable. No stones. Reproductive: Bilateral ovarian cysts measuring 4.7 x 3.7 x 4.3 cm on the right and 2.3 x 2.2 x 1.8 cm on the left. The uterus is unremarkable as visualized. ABDOMEN and PELVIS: Intraperitoneal space: Unremarkable. No free air. No significant fluid collection. Bones/joints: No acute fracture. No dislocation. Soft tissues: Unremarkable. Vasculature: Minimal atherosclerotic disease. No abdominal aortic aneurysm. Lymph nodes: Unremarkable. No enlarged lymph nodes. IMPRESSION: 1. No renal, ureteral or bladder calculi. No evidence for renal obstruction. 2. Bilateral ovarian cysts measuring 4.7 x 3.7 x 4.3 cm on the right and 2.3 x 2.2 x 1.8 cm on the left. No follow-up imaging is recommended. Reference: JACR 2019;17(2):248-254 3. Other findings as above. Electronically signed by: Jayson Overton MD 12/24/2021 3:25 AM NIGHT TIME NANNY Due to temporary technical issues with the PACS/Fluency reporting system, reports are being signed by the in house radiologists without review as a courtesy to insure prompt reporting. The interpreting radiologist is fully responsible for the content of the report.
== END 2021-12-24 03:59 | disposition home or self-care (01) ==
LOC: ER 01:08
DX: M25.552 Pain in left hip (principal); E11.9 Type 2 diabetes mellitus without complications; G62.9 Polyneuropathy, unspecified; F17.210 Nicotine dependence, cigarettes, uncomplicated; Z88.0 Allergy status to penicillin; Z88.6 Allergy status to analgesic agent; Z90.49 Acquired absence of other specified parts of digestive tract
CPT/HCPCS: 74176; 76377; 81003; 81025; 96374; 96375; 99284; J2175; J2405

== ENCOUNTER 2022-01-22 13:44 | Emergency (ER) | payer SELFPAY ==
--- NOTE | 2022-01-22 14:52 | RAD REPORT ---
EXAM DESCRIPTION: US - Transvaginal Study Probe - 01/22/2022 2:32 pm CLINICAL HISTORY: ABD PAIN, pelvic pain COMPARISON: No comparisons TECHNIQUE: Endovaginal sonography was performed. FINDINGS: Endometrium is 4 mm in thickness with no mass, polyp or endometrial abnormality seen. No m yometrial mass identifiable. Uterus is 7.3 x 4.7 x 4.3 cm. Nabothian cysts are present. Both ovaries are identifiable. Normal blood flow seen in the ovarian stroma. Left ovary contains 1.6 cm and 2.5 cm anechoic cyst. There is some minimal reverberation artifact. No septation or mural nodu le seen. No adnexal mass or abnormal fluid. IMPRESSION: Benign-appearing anechoic left ovarian cyst 2.5 cm and 1.6 cm in size.
[2022-01-22 15:04] LABS: Absolute Lymphocytes (CBC) 2.1 K/uL (0.7-4.9); Hematocrit 39.8 % (36.0-45.0); Lymphocytes % 22.3 % (15.3-44.8); MPV 7.8 fL (7.6-11.3)
[2022-01-22 15:09] LABS: Sodium Level 134 mmol/L (136-145)
[2022-01-22 15:10] LABS: Potassium 4.1 mmol/L (3.5-5.1)
[2022-01-22 15:13] LABS: ALT/SGPT < 10 U/L (12-78); Albumin 3.4 g/dL (3.4-5.0); BUN Blood Urea Nitrogen 7 mg/dL (7-18); Bicarbonate 26 mmol/L (21-32); Lipase 152 U/L (73-393)
[2022-01-22 15:14] LABS: AST/SGOT 12 U/L (15-37); Bilirubin Direct < 0.1 mg/dL (0-0.2)
[2022-01-22 15:16] LABS: Glucose Level 410 mg/dL (74-106)
[2022-01-22 15:17] LABS: Alkaline Phosphatase 100 U/L (45-117); Bilirubin Total 0.3 mg/dL (0.2-1.0); Protein, Total 7.5 g/dL (6.4-8.2)
[2022-01-22] MEDS ORDERED: FENTANYL CITR 100 MCG/2 ML ONE ×2 (15:38→16:19)
[2022-01-22] MEDS ORDERED: NA CHLORIDE 0.9% 1,000 ML ONE (15:39)
[2022-01-22] MEDS ORDERED: ONDANSETRON 4 MG/2 ML VIAL ONE (15:39)
[2022-01-22] MEDS ORDERED: INSULIN -REGULAR HUMAN 50 UNIT/0.5 ML ML ONE (16:00)
[2022-01-22 16:09] LABS: Urine Blood Trace-intact (Negative); Urine Glucose 2+ (Negative); Urine Protein Trace (Negative); Urine Specific Gravity 1.015 (1.005-1.030); Urine pH 6.5 (5.0-7.0)
[2022-01-22 16:42] LABS: Urine Specific Gravity/Preg 1.015 (1.005-1.030)
[2022-01-22 16:43] LABS: Urine Bacteria <20 /HPF (<20); Urine RBC <5 /HPF (NONE SEEN)
--- NOTE | 2022-01-22 16:46 | RAD REPORT ---
EXAM DESCRIPTION: CT - Abdomen Pelvis W Contrast - 01/22/2022 4:26 pm CLINICAL HISTORY: ABD PAIN, pelvic pain, history of cholecystectomy COMPARISON: Abdomen Pelvis W Contrast dated 10/02/2021; Abdomen Pelvis W Contrast dated 08/31/2021 ; Transvaginal Study Probe dated 01/22/2022 TECHNIQUE: Biphasic, helical CT imaging of the abdomen and pelvis was performed following 100 ml non -ionic IV contrast. No oral contrast was administered. All CT scans are performed using dose optimization technique as appropriate and may include automated exposure control or mA/KV adjustment according to patient size. FINDINGS: No suspicious findings in the lung bases. The liver, spleen, and pancreas show no suspicious findings. Cholecystectomy clips are present. No ab normal biliary tree dilatation. No hydronephrosis or obstructing calculus. There are bilateral areas of diminished cortical enhanceme nt without associated cortical thinning. Mild bilateral pyelonephritis is most likely and needs corre lation with clinical and laboratory findings. No solid mass lesion of either kidney. No bladder wall thickening or enhancement. No bladder calculi seen. No adrenal abnormalities. No uterine or right ova megan significant finding. Left ovary contains a 2.9 centimeter cyst with a smaller adjacent 1.8 centi meter cyst. These are correlates to the earlier ultrasound study. No tubal dilatation. No dilated bowel loops or bowel wall thickening. No appendicitis findings. No free air, free fluid or inflammatory stranding. No hernia, mass or bulky lymphadenopathy. No suspicious bony findings. IMPRESSION: Mild bilateral pyelonephritis is evident and needs correlation with clinical and laborat ory findings. No cystitis or bladder abnormality seen. Small left ovarian cysts are present matching the earlier ultrasound study.
--- NOTE | 2022-01-22 17:11 | ER ---
Nurse's Notes [facility] Name: Ara Mercado Age: 36 yrs Sex: Female : 1985 Arrival Date: 01/22/2022 Time: 13:47 Bed 6 Private MD: Diagnosis: Tubulo-interstitial nephritis, not specified as acute or chronic;Other ovarian cysts;Hyperglycemia, unspecified Presentation: 01/22 13:55 Chief complaint: Patient states: Left hip pain x 1 month, left lower abdomen to groin jl7 pain since last night, reports nausea, denies vomiting \T\ diarrhea. Coronavirus screen: At this time, the client does not indicate any symptoms associated with coronavirus-19. Ebola Screen: No symptoms or risks identified at this time. Initial Sepsis Screen: Does the patient meet any 2 criteria? No. Patient's initial sepsis screen is negative. Does the patient have a suspected source of infection? No. Patient's initial sepsis screen is negative. Risk Assessment: Do you want to hurt yourself or someone else? Patient reports no desire to harm self or others. Onset of symptoms was January 21, 2022. 13:55 Method Of Arrival: Ambulatory [facility] 13:55 Acuity: CHARISSA 3 jl7 Triage Assessment: 14:00 General: Appears in no apparent distress. uncomfortable, Behavior is calm, cooperative, jl7 appropriate for age. Pain: Complains of pain in left lower quadrant Pain currently is 9 out of 10 on a pain scale. Historical: - Allergies: 14:00 Amoxicillin; jl7 14:00 Bactrim; jl7 14:00 Flagyl; jl7 14:00 Morphine; jl7 14:00 Toradol; jl7 14:00 tramadol; jl7 - Home Meds: 14:00 glipizide 5 mg Oral tab 1 tab [Active]; gabapentin 300 mg Oral cap 1 cap 3 times per jl7 day [Active]; - PMHx: 14:00 diabetes mellitus; gallstone; neuropathy; jl7 - PSHx: 14:00 Cholecystectomy; jl7 - Immunization history:: Client reports receiving the 2nd dose of the Covid vaccine. - Social history:: Smoking status: Patient reports the use of cigarette tobacco products, smokes one pack cigarettes per day. Screenin:26 Abuse screen: Denies threats or abuse. Nutritional screening: No deficits noted. ke1 Tuberculosis screening: No symptoms or risk factors identified. Fall Risk No fall in past 12 months (0 pts). No secondary diagnosis (0 pts). IV access (20 points). Ambulatory Aid- None/Bed Rest/Nurse Assist (0 pts). Gait- Normal/Bed Rest/Wheelchair (0 pts) Mental Status- Oriented to own ability (0 pts). Total Hannah Fall Scale indicates No Risk (0-24 pts). Assessment: 14:18 Reassessment: IN ULTRASOUND. ke1 14:35 General: Appears uncomfortable, Behavior is appropriate for age. Pain: Complains of ke1 pain in abdomen left Pain does not radiate. Pain currently is 7 out of 10 on a pain scale. Neuro: Level of Consciousness is awake, alert, Oriented to person, place, time, situation. Cardiovascular: Heart tones S1 S2 present Capillary refill < 3 seconds Patient's skin is warm and dry. 14:35 Respiratory: Airway is patent Breath sounds are clear bilaterally. GI: Abdomen is ke1 obese, Bowel sounds present X 4 quads. Abd is soft Abdomen is tender to palpation in left upper quadrant and left lower quadrant. : No deficits noted. Derm: No deficits noted. Musculoskeletal: Range of motion: intact in all extremities. Vital Signs: 13:55 BP 134 / 88; Pulse 99; Resp 17; Temp 99.3(O); Pulse Ox 98% on R/A; Weight 72.57 kg; jl7 Height 5 ft. 2 in. (157.48 cm); Pain 9/10; 14:20 BP 146 / 101; Pulse 101; Resp 18; Pulse Ox 99% ; ke1 16:47 BP 129 / 79; Pulse 98; Resp 18; Pulse Ox 99% ; ke1 13:55 Body Mass Index 29.26 (72.57 kg, 157.48 cm) jl7 ED Course: 13:47 Patient arrived in ED. ds1 13:52 Cel[facility]C [facility] kb 13:52 Ana Faust MD is Attending Physician. kb 14:00 Triage completed. jl7 14:00 Arm band placed on right wrist. jl7 14:14 Yulisa See, VÍCTOR is Primary Nurse. ke1 14:32 US Transvaginal Study (Probe) In Process Unspecified. EDMS 15:20 Inserted saline lock: 22 gauge in right upper arm, using aseptic technique. jd3 16:26 CT Abd/Pelvis - IV Contrast Only In Process Unspecified. EDMS 17:12 No provider procedures requiring assistance completed. ke1 17:21 Urine --Ancillary (enter results) Sent. jg9 17:21 Basic Metabolic Panel Sent. jg9 17:21 Hepatic Function Sent. jg9 17:21 Lipase Sent. jg9 Administered Medications: 15:35 Drug: fentaNYL (PF) 50 mcg Route: IVP; Site: right antecubital; ke1 16:00 Follow up: Response: Pain is unchanged, physician notified ke1 15:35 Drug: Zofran (Ondansetron) 4 mg Route: IVP; Site: right antecubital; ke1 16:00 Follow up: Response: Nausea is decreased ke1 15:35 Drug: NS 0.9% 1000 ml Route: IV; Rate: 1000 ml; Site: right antecubital; ke1 16:03 Drug: Insulin Regular Human 5 units {Co-Signature: ld1 (Linsey Nelson RN).} Route: ke1 IVP; Site: right antecubital; 17:13 Follow up: Response: Blood sugar is lowered ke1 16:18 Drug: fentaNYL (PF) 50 mcg Route: IVP; Site: right antecubital; ke1 17:00 Follow up: Response: Pain is decreased ke1 17:25 Drug: Cipro (ciprofloxacin) 500 mg Route: PO; ke1 17:25 Follow up: Response: Medication administered at discharge. ke1 Outcome: 17:10 Discharge ordered by . kb 17:26 Patient left the ED. ke1 Signatures: Dispatcher [employer] EDMS Celina Driver, ADALI PUSHER RUNNER-Betsey Suarez ds1 Yumiko Richardson RN RN jl7 Dillon Wilde RN RN jd3 Beatriz Small RN RN jg9 Yulisa See RN RN ke1 Linsey Nelson RN ld1 Corrections: (The following items were deleted from the chart) 15:07 14:35 Cardiovascular: Heart tones S1 S2 present ke1 ke1 16:47 14:20 BP 146 / 101; ke1 ke1
--- NOTE | 2022-01-22 17:11 | EDPHYS ---
Physician Documentation [facility] Name: Ara Mercado Age: 36 yrs Sex: Female : 1985 Arrival Date: 01/22/2022 Time: 13:47 Bed 6 Private MD: ED Physician Ana Faust HPI: 01/22 17:09 This 36 yrs old Female presents to ER via Ambulatory with complaints of L Side Pain, kb Hip Pain. 17:09 The symptoms are described as constant. Modifying factors: The symptoms are alleviated kb by nothing, the symptoms are aggravated by nothing. Severity of pain: At its worst the pain was moderate in the emergency department the pain is unchanged. The patient has not experienced similar symptoms in the past. The patient has not recently seen a physician. 17:09 The patient presents with abdominal pain in the left lower quadrant. Onset: The kb symptoms/episode began/occurred yesterday. The symptoms do not radiate. Associated signs and symptoms: Pertinent positives: nausea, Pertinent negatives: constipation, diarrhea, fever, vaginal discharge, vomiting. Historical: - Allergies: 14:00 Amoxicillin; jl7 14:00 Bactrim; jl7 14:00 Flagyl; jl7 14:00 Morphine; jl7 14:00 Toradol; jl7 14:00 tramadol; jl7 - Home Meds: 14:00 glipizide 5 mg Oral tab 1 tab [Active]; gabapentin 300 mg Oral cap 1 cap 3 times per jl7 day [Active]; - PMHx: 14:00 diabetes mellitus; gallstone; neuropathy; jl7 - PSHx: 14:00 Cholecystectomy; jl7 - Immunization history:: Client reports receiving the 2nd dose of the Covid vaccine. - Social history:: Smoking status: Patient reports the use of cigarette tobacco products, smokes one pack cigarettes per day. ROS: 17:07 Constitutional: Negative for fever, chills, and weight loss. kb 17:07 Abdomen/GI: Positive for abdominal pain, nausea, Negative for vomiting, diarrhea, constipation, abdominal cramps. 17:07 All other systems are negative. Exam: 17:08 Constitutional: This is a well developed, well nourished patient who is awake, alert, kb and in no acute distress. Head/Face: Normocephalic, atraumatic. ENT: Moist Mucous membranes Cardiovascular: Regular rate and rhythm with a normal S1 and S2. No gallops, murmurs, or rubs. No pulse deficits. Respiratory: Respirations even and unlabored. No increased work of breathing. Talking in full sentences Skin: Warm, dry with normal turgor. Normal color. MS/ Extremity: Pulses equal, no cyanosis. Neurovascular intact. Full, normal range of motion. Neuro: Awake and alert, GCS 15, oriented to person, place, time, and situation. Moves all extremities. Normal gait. Psych: Awake, alert, with orientation to person, place and time. Behavior, mood, and affect are within normal limits. 17:08 Abdomen/GI: Inspection: abdomen appears normal, Bowel sounds: normal, in all quadrants, Palpation: soft, in all quadrants, moderate abdominal tenderness, in the left lower quadrant. Vital Signs: 13:55 BP 134 / 88; Pulse 99; Resp 17; Temp 99.3(O); Pulse Ox 98% on R/A; Weight 72.57 kg; jl7 Height 5 ft. 2 in. (157.48 cm); Pain 9/10; 14:20 BP 146 / 101; Pulse 101; Resp 18; Pulse Ox 99% ; ke1 16:47 BP 129 / 79; Pulse 98; Resp 18; Pulse Ox 99% ; ke1 13:55 Body Mass Index 29.26 (72.57 kg, 157.48 cm) jl7 MDM: 13:52 Patient medically screened. kb 17:07 Data reviewed: vital signs, nurses notes. Data interpreted: Pulse oximetry: on room air kb is 99 %. Interpretation: normal. Counseling: I had a detailed discussion with the patient and/or guardian regarding: the historical points, exam findings, and any diagnostic results supporting the discharge/admit diagnosis, lab results, radiology results, the need for outpatient follow up, a family practitioner, an OB/Gyne specialist, to return to the emergency department if symptoms worsen or persist or if there are any questions or concerns that arise at home. 01/22 14:06 Order name: Basic Metabolic Panel kb 01/22 14:06 Order name: CBC with Diff; Complete Time: 15:07 kb 01/22 14:06 Order name: Hepatic Function kb 01/22 14:06 Order name: Lipase kb 01/22 14:06 Order name: Urine Microscopic Only; Complete Time: 16:47 kb 01/22 14:07 Order name: Basic Metabolic Panel; Complete Time: 15:17 EDMS 01/22 14:06 Order name: US Transvaginal Study (Probe); Complete Time: 14:56 kb 01/22 14:07 Order name: Liver (Hepatic) Function; Complete Time: 15:17 EDMS 01/22 14:07 Order name: Lipase; Complete Time: 15:17 EDMS 01/22 15:07 Order name: CT Abd/Pelvis - IV Contrast Only; Complete Time: 16:47 kb 01/22 16:09 Order name: Urine Dipstick-Ancillary; Complete Time: 16:11 EDMS 01/22 16:13 Order name: Urine --Ancillary (enter results) bd 01/22 16:14 Order name: Urine --Ancillary; Complete Time: 16:47 EDMS 01/22 17:04 Order name: Glucose, Ancillary Testing; Complete Time: 17:06 EDMS 01/22 14:06 Order name: IV Saline Lock; Complete Time: 16:25 kb 01/22 14:06 Order name: Labs collected and sent; Complete Time: 16:26 kb 01/22 14:06 Order name: Urine Dipstick-Ancillary (obtain specimen); Complete Time: 16:19 kb 01/22 14:06 Order name: Urine Test (obtain specimen); Complete Time: 16:19 kb 01/22 16:47 Order name: Blood Glucose Level; Complete Time: 16:54 kb Administered Medications: 15:35 Drug: fentaNYL (PF) 50 mcg Route: IVP; Site: right antecubital; ke1 16:00 Follow up: Response: Pain is unchanged, physician notified ke1 15:35 Drug: Zofran (Ondansetron) 4 mg Route: IVP; Site: right antecubital; ke1 16:00 Follow up: Response: Nausea is decreased ke1 15:35 Drug: NS 0.9% 1000 ml Route: IV; Rate: 1000 ml; Site: right antecubital; ke1 16:03 Drug: Insulin Regular Human 5 units {Co-Signature: ld1 (Linsey Nelson RN).} Route: ke1 IVP; Site: right antecubital; 17:13 Follow up: Response: Blood sugar is lowered ke1 16:18 Drug: fentaNYL (PF) 50 mcg Route: IVP; Site: right antecubital; ke1 17:00 Follow up: Response: Pain is decreased ke1 17:25 Drug: Cipro (ciprofloxacin) 500 mg Route: PO; ke1 17:25 Follow up: Response: Medication administered at discharge. ke1 Disposition Summary: 01/22/22 17:10 Discharge Ordered Location: Home kb Condition: Stable kb Diagnosis - Tubulo-interstitial nephritis, not specified as acute or chronic kb - Other ovarian cysts kb - Hyperglycemia, unspecified kb Followup: kb - With: Emergency Department - When: As needed - Reason: Worsening of condition Followup: kb - With: Private Physician - When: 2 - 3 days - Reason: Recheck today's complaints, Continuance of care, Re-evaluation by your physician Discharge Instructions: - Discharge Summary Sheet kb - Pyelonephritis, Adult, [id number] kb - Ovarian Cyst, [id number] kb - Hyperglycemia, [id number] kb Forms: - Medication Reconciliation Form kb - Thank You Letter kb - Antibiotic Education kb - Prescription Opioid Use kb Prescriptions: - Cipro 500 mg Oral Tablet - take 1 tablet by ORAL route every 12 hours for 7 days; 14 tablet; Refills: 0, kb Product Selection Permitted Signatures: Dispatcher [employer] Celina Diana, DAVIDE-C BECK OPERATOR-Yumiko Hernandez RN RN jl7 Yulisa See RN RN ke1 Linsey Nelson RN ld1
[2022-01-22] MEDS ORDERED: CIPROFLOXACIN HCL 500 MG TAB ONE (17:19)
[2022-01-22 17:35] VITALS: TEMP 99.3
[2022-01-22 17:36] VITALS: O2SAT 99
[2022-01-22 17:37] VITALS: BP 129/79
== END 2022-01-22 17:26 | disposition home or self-care (01) ==
LOC: ER 13:44
DX: N12 Tubulo-interstitial nephritis, not specified as acute or chronic (principal); N83.299 Other ovarian cyst, unspecified side; E11.65 Type 2 diabetes mellitus with hyperglycemia; F17.210 Nicotine dependence, cigarettes, uncomplicated; Z88.1 Allergy status to other antibiotic agents; Z88.5 Allergy status to narcotic agent
CPT/HCPCS: 36415; 74177; 76830; 80048; 80076; 81003; 81015; 81025; 82947; 83690; 85025; 96374; 96375; 99284; J2405; J3010; J7030; Q9967

== ENCOUNTER 2022-02-03 21:26 | Emergency (ER) | payer SELFPAY ==
[2022-02-03 22:12] LABS: Urine Blood Negative (Negative); Urine Glucose 2+ (Negative); Urine Protein 1+ (Negative); Urine Specific Gravity 1.015 (1.005-1.030); Urine pH 6.5 (5.0-7.0)
[2022-02-03] MEDS ORDERED: FAMOTIDINE 20 MG/2 ML VIAL IV ONE (23:16)
[2022-02-03] MEDS ORDERED: NA CHLORIDE 0.9% 1,000 ML ONE (23:16)
[2022-02-03] MEDS ORDERED: ONDANSETRON 4 MG/2 ML VIAL ONE (23:16)
[2022-02-03 23:18] LABS: Absolute Lymphocytes (CBC) 2.6 K/uL (0.7-4.9); Hematocrit 39.6 % (36.0-45.0); MPV 7.9 fL (7.6-11.3); RBC Red Blood Cell Count 4.53 M/uL (3.86-4.86)
[2022-02-03 23:19] LABS: Protime INR 0.98
[2022-02-03 23:27] LABS: Barbiturates NEGATIVE (NEGATIVE); Benzodiazepines NEGATIVE (NEGATIVE); Cocaine NEGATIVE (NEGATIVE); METHAMPHETAM NEGATIVE (NEGATIVE); Methadone NEGATIVE (NEGATIVE); Opiates NEGATIVE (NEGATIVE); Phencyclidine NEGATIVE (NEGATIVE); THC Cannibis NEGATIVE (NEGATIVE)
[2022-02-03] MEDS ORDERED: FENTANYL CITR 100 MCG/2 ML ONE (23:28)
[2022-02-03 23:50] LABS: Urine Specific Gravity/Preg 1.015 (1.005-1.030)
[2022-02-03 23:51] LABS: Urine Bacteria <20 /HPF (<20); Urine RBC NONE SEEN /HPF (NONE SEEN)
[2022-02-04 00:12] LABS: SARS-COV-2 RT PCR NEGATIVE (NEGATIVE)
[2022-02-04 00:12] LABS: AST/SGOT 12 U/L (15-37); Alkaline Phosphatase 97 U/L (45-117); BUN Blood Urea Nitrogen 8 mg/dL (7-18); Bicarbonate 25 mmol/L (21-32); Bilirubin Total 0.3 mg/dL (0.2-1.0); Glucose Level 357 mg/dL (74-106); Lipase 157 U/L (73-393); Magnesium 1.8 mg/dL (1.8-2.4); NT PRO-BNP 91 pg/mL (<125); Potassium 3.4 mmol/L (3.5-5.1); Protein, Total 6.9 g/dL (6.4-8.2); Sodium Level 136 mmol/L (136-145)
[2022-02-04 00:13] LABS: ALT/SGPT < 10 U/L (12-78); Bilirubin Direct < 0.1 mg/dL (0-0.2); Troponin High Sensitivity < 3.00 pg/mL (<58.9)
[2022-02-04] MEDS ORDERED: MEPERIDINE HCL 25 MG/ML SYR ONE (00:46)
[2022-02-04] MEDS ORDERED: MAGNES/ALUMIN/SIMET 30ML UCUP ONE (01:18)
[2022-02-04] MEDS ORDERED: LIDOCAINE VISCOUS 2% SOLN 15 ML UDC ONE (01:18)
[2022-02-04] MEDS ORDERED: ONDANSETRON 4 MG/2 ML VIAL ONE (01:18)
--- NOTE | 2022-02-04 02:18 | ER ---
Nurse's Notes [facility] Name: Ara Mercado Age: 36 yrs Sex: Female : 1985 Arrival Date: 02/03/2022 Time: 21:30 Bed 20 Private MD: Diagnosis: Abdominal pain, Generalized;Nausea with vomiting, unspecified;Other specified diabetes mellitus with hyperglycemia Presentation: 02/03 21:48 Chief complaint: Patient states: "I have chest pain and I've been vomiting all day.". ab2 Coronavirus screen: Vaccine status: Patient reports receiving the 2nd dose of the covid vaccine. Client denies travel out of the [place] in the last 14 days. At this time, the client does not indicate any symptoms associated with coronavirus-19. Ebola Screen: Patient negative for fever greater than or equal to 101.5 degrees Fahrenheit, and additional compatible Ebola Virus Disease symptoms Patient denies exposure to infectious person. Patient denies travel to an Ebola-affected area in the 21 days before illness onset. No symptoms or risks identified at this time. Initial Sepsis Screen: Does the patient meet any 2 criteria? No. Patient's initial sepsis screen is negative. Does the patient have a suspected source of infection? No. Patient's initial sepsis screen is negative. Risk Assessment: Do you want to hurt yourself or someone else? Patient reports no desire to harm self or others. Onset of symptoms is unknown. 21:48 Method Of Arrival: Wheelchair ab2 21:48 Acuity: CHARISSA 3 ab2 Triage Assessment: 21:49 General: Appears in no apparent distress. uncomfortable, Behavior is calm, appropriate ab2 for age. Pain: Complains of pain in chest Pain currently is 9 out of 10 on a pain scale. Cardiovascular: Reports chest pain. GI: Reports nausea, vomiting. Historical: - Allergies: 21:49 Amoxicillin; ab2 21:49 Bactrim; ab2 21:49 Flagyl; ab2 21:49 Morphine; ab2 21:49 Toradol; ab2 21:49 tramadol; ab2 - PMHx: 21:49 diabetes mellitus; gallstone; neuropathy; ab2 - PSHx: 21:49 Cholecystectomy; ab2 - Immunization history:: Adult Immunizations up to date. - Social history:: Smoking status: Patient reports the use of cigarette tobacco products, smokes one pack cigarettes per day. Screenin:42 Abuse screen: Denies threats or abuse. Nutritional screening: No deficits noted. sf1 Tuberculosis screening: No symptoms or risk factors identified. Fall Risk None identified. Assessment: 23:42 General: Appears in no apparent distress. Behavior is cooperative. Neuro: No deficits sf1 noted. Cardiovascular: No deficits noted. Respiratory: No deficits noted. GI: Abdomen is non-distended, Reports epigastric pain, indigestion, nausea, vomiting. : No deficits noted. EENT: No deficits noted. Derm: No deficits noted. Musculoskeletal: No deficits noted. Vital Signs: 21:48 BP 129 / 83; Pulse 87; Resp 18; Temp 98.2; Pulse Ox 99% on R/A; Weight 72.57 kg; Height ab2 5 ft. 2 in. (157.48 cm); Pain 9/10; 23:42 BP 141 / 82; Pulse 78; Resp 18; Pulse Ox 100% on R/A; sf1 02/04 01:39 BP 134 / 66; Pulse 83; Resp 18; Pulse Ox 100% on R/A; sf1 02/03 21:48 Body Mass Index 29.26 (72.57 kg, 157.48 cm) ab2 ED Course: 02/03 21:30 Patient arrived in ED. wm 21:49 Triage completed. ab2 21:50 Arm band placed on left wrist. ab2 21:52 Rylie Jung, VÍCTOR is Primary Nurse. sf1 22:03 EKG completed in triage. Results shown to MD. sf1 22:07 Papito Castro MD is Attending Physician. mh7 22:26 Inserted saline lock: 22 gauge in right hand, using aseptic technique. Blood collected. sf1 22:40 CBC with Automated Diff Sent. sf1 22:40 Basic Metabolic Panel Sent. sf1 22:40 Lipase Sent. sf1 22:40 Urine Drug Screen Sent. sf1 22:40 Urine Microscopic Only Sent. sf1 22:40 Basic Metabolic Panel Sent. sf1 22:40 CBC with Diff Sent. sf1 22:41 LFT's Sent. sf1 22:41 Magnesium Sent. sf1 22:41 NT PRO-BNP Sent. sf1 22:41 PT-INR Sent. sf1 22:41 Troponin HS Sent. sf1 22:44 XRAY Chest (1 view) In Process Unspecified. EDMS 23:08 CBC with Automated Diff Sent. sf1 23:08 Basic Metabolic Panel Sent. sf1 23:08 Lipase Sent. sf1 23:08 Urine Drug Screen Sent. sf1 23:08 Urine Microscopic Only Sent. sf1 23:29 COVID-19/FLU A+B (Document "Date of Onset" if Symptomatic) Sent. sf1 23:42 Patient has correct armband on for positive identification. sf1 23:46 Warm blanket given. sf1 02/04 00:39 Abdomen In Process Unspecified. EDMS 02:28 No provider procedures requiring assistance completed. IV discontinued, intact, sf1 bleeding controlled, No redness/swelling at site. Pressure dressing applied. Administered Medications: 02/03 23:29 Drug: Zofran (Ondansetron) 4 mg Route: IVP; Site: right hand; sf1 23:29 Drug: NS 0.9% 1000 ml Route: IV; Rate: 1000 ml; Site: right hand; sf1 23:29 Drug: fentaNYL (PF) 50 mcg Route: IVP; Site: right hand; sf1 23:30 Drug: Pepcid (famotidine) 20 mg Route: IVP; Site: right hand; sf1 02/04 00:54 Drug: Demerol (meperidine) 12.5 mg Route: IVP; Site: right hand; sf1 01:22 Drug: Zofran (Ondansetron) 4 mg Route: IVP; Site: right hand; sf1 01:39 Drug: GI Cocktail without - (Maalox Suspension 30 ml, Lidocaine Liquid 2 % 15 sf1 ml) Route: PO; Outcome: 02:18 Discharge ordered by . sparkle 02:28 Discharged to home ambulatory. sf1 02:28 Condition: good 02:28 Discharge instructions given to patient, Instructed on discharge instructions, follow up and referral plans. Demonstrated understanding of instructions, follow-up care, medications, Prescriptions given X 3. 02:29 Patient left the ED. sf1 Signatures: Dispatcher [employer] EDMS Papito Castro MD MD 7 Analia Kaminski Alexis ab2 Rylie Jung RN RN sf1 Corrections: (The following items were deleted from the chart) 02/03 22:26 22:26 Inserted saline lock: 22 gauge in right hand, using aseptic technique. sf1 sf1
--- NOTE | 2022-02-04 02:19 | EDPHYS ---
Physician Documentation [facility] Name: Ara Mercado Age: 36 yrs Sex: Female : 1985 Arrival Date: 02/03/2022 Time: 21:30 Bed 20 Private MD: ED Physician Papito Castro HPI: 02/03 22:56 This 36 yrs old Female presents to ER via Wheelchair with complaints of mh7 Nausea/Vomiting, Chest Pain > 30 y/o, Low Back Pain. 22:56 The patient presents to the emergency department with nausea, that is moderate, mh7 vomiting, that is intermittent, described as clear fluid, diarrhea, that is intermittent, abdominal pain, of the epigastric area and left lower quadrant, described as intermittent, vague,\\E\\ waxing and waning, and radiates to the Left lower back. Onset: The symptoms/episode began/occurred 2 day(s) ago. Possible causes: unknown. The symptoms are aggravated by movement, food , The symptoms are alleviated by nothing. Associated signs and symptoms: Pertinent negatives: anorexia, belching, constipation, dysuria, fever, flatulence, GI bleeding, hematuria, vaginal discharge. Severity of symptoms: At their worst the symptoms were moderate yesterday, in the emergency department the symptoms have improved moderately. Historical: - Allergies: 21:49 Amoxicillin; ab2 21:49 Bactrim; ab2 21:49 Flagyl; ab2 21:49 Morphine; ab2 21:49 Toradol; ab2 21:49 tramadol; ab2 - PMHx: 21:49 diabetes mellitus; gallstone; neuropathy; ab2 - PSHx: 21:49 Cholecystectomy; ab2 - Immunization history:: Adult Immunizations up to date. - Social history:: Smoking status: Patient reports the use of cigarette tobacco products, smokes one pack cigarettes per day. ROS: 22:56 Constitutional: Negative for fever, chills, and weight loss, Eyes: Negative for injury, mh7 pain, redness, and discharge, ENT: Negative for injury, pain, and discharge, Neck: Negative for injury, pain, and swelling, Respiratory: Negative for shortness of breath, cough, wheezing, and pleuritic chest pain. 22:56 : Negative for injury, bleeding, discharge, and swelling, MS/Extremity: Negative for injury and deformity, Skin: Negative for injury, rash, and discoloration, Neuro: Negative for headache, weakness, numbness, tingling, and seizure, Psych: Negative for depression, anxiety, suicide ideation, homicidal ideation, and hallucinations, Allergy/Immunology: Negative for hives, rash, and allergies, Endocrine: Negative for neck swelling, polydipsia, polyuria, polyphagia, and marked weight changes, Hematologic/Lymphatic: Negative for swollen nodes, abnormal bleeding, and unusual bruising. 22:56 Cardiovascular: Positive for chest pain, of the epigastric area. Exam: 22:56 Constitutional: This is a well developed, well nourished patient who is awake, alert, mh7 and in no acute distress. Head/Face: Normocephalic, atraumatic. Eyes: Pupils equal round and reactive to light, extra-ocular motions intact. Lids and lashes normal. Conjunctiva and sclera are non-icteric and not injected. Cornea within normal limits. Periorbital areas with no swelling, redness, or edema. Neck: Trachea midline, no thyromegaly or masses palpated, and no cervical lymphadenopathy. Supple, full range of motion without nuchal rigidity, or vertebral point tenderness. No Meningismus. Chest/axilla: Normal chest wall appearance and motion. Nontender with no deformity. No lesions are appreciated. Cardiovascular: Regular rate and rhythm with a normal S1 and S2. No gallops, murmurs, or rubs. Normal PMI, no JVD. No pulse deficits. Respiratory: Lungs have equal breath sounds bilaterally, clear to auscultation and percussion. No rales, rhonchi or wheezes noted. No increased work of breathing, no retractions or nasal flaring. 22:56 Skin: Warm, dry with normal turgor. Normal color with no rashes, no lesions, and no evidence of cellulitis. MS/ Extremity: Pulses equal, no cyanosis. Neurovascular intact. Full, normal range of motion. Neuro: Awake and alert, GCS 15, oriented to person, place, time, and situation. Cranial nerves II-XII grossly intact. Motor strength 5/5 in all extremities. Sensory grossly intact. Cerebellar exam normal. Normal gait. 22:56 Abdomen/GI: Inspection: abdomen appears normal, Bowel sounds: normal, in all quadrants, Palpation: moderate abdominal tenderness, in the epigastric area and left lower quadrant, mass, is not appreciated, rebound tenderness, is not appreciated, voluntary guarding, is not appreciated, involuntary guarding, is not appreciated, no appreciated organomegaly, Rectal exam: the exam is deferred, because of patient request, Indicators: McBurney's point is not tender, Ritchie's sign is negative, Rovsing's sign is negative, Obturator sign is negative, Psoas sign is negative, Liver: no appreciated palpable abnormalities, Hernia: not appreciated. 22:56 Back: normal spinal alignment noted, CVA tenderness, that is moderate, is noted on the left, muscle spasm, is not present, Straight leg raises: of both lower extremities does not illicit pain. 22:56 ECG was reviewed by the Attending Physician. [facility] Vital Signs: 21:48 BP 129 / 83; Pulse 87; Resp 18; Temp 98.2; Pulse Ox 99% on R/A; Weight 72.57 kg; Height ab2 5 ft. 2 in. (157.48 cm); Pain 9/10; 23:42 BP 141 / 82; Pulse 78; Resp 18; Pulse Ox 100% on R/A; sf1 02/04 01:39 BP 134 / 66; Pulse 83; Resp 18; Pulse Ox 100% on R/A; sf1 02/03 21:48 Body Mass Index 29.26 (72.57 kg, 157.48 cm) ab2 MDM: 02:16 Differential diagnosis: Nonspecific abd pain, gastritis, pancreatitis, diverticulitis, 7 viral gastroenteritis, gastroenteritis. Data reviewed: vital signs, nurses notes, old medical records, lab test result(s), cardiac enzymes, CBC, electrolytes, Flu: negative urinalysis, urine drug screen, UPT: negative EKG, radiologic studies, CT scan, plain films. Data interpreted: Pulse oximetry: on room air is 100 %. Interpretation: normal. Counseling: I had a detailed discussion with the patient and/or guardian regarding: the historical points, exam findings, and any diagnostic results supporting the discharge/admit diagnosis, lab results, radiology results, the need for outpatient follow up, to return to the emergency department if symptoms worsen or persist or if there are any questions or concerns that arise at home. Response to treatment: the patient's symptoms have resolved after treatment, the patient's blood pressure is in an acceptable range, mental status has returned to baseline, the patient no longer shows bradycardia, the patient is not short of breath, the patient is not tachycardic, the patient's pain is gone, the patient's temperature has normalized. 02:18 Patient medically screened. [facility] 02/03 22:11 Order name: Urine Dipstick-Ancillary; Complete Time: 22:13 [facility] 02/03 22:15 Order name: Urine --Ancillary (enter results); Complete Time: 00:24 [facility] 02/03 22:17 Order name: Basic Metabolic Panel [facility] 02/03 22:17 Order name: CBC with Diff [facility] 02/03 22:17 Order name: LFT's; Complete Time: 00:24 [facility] 02/03 22:17 Order name: Magnesium; Complete Time: 00:24 [facility] 02/03 22:17 Order name: NT PRO-BNP; Complete Time: 00:24 [facility] 02/03 22:17 Order name: PT-INR; Complete Time: 23:49 [facility] 02/03 22:17 Order name: Troponin HS; Complete Time: 00:24 [facility] 02/03 22:17 Order name: Urine Drug Screen; Complete Time: 23:49 [facility] 02/03 22:17 Order name: Urine Microscopic Only; Complete Time: 00:24 [facility] 02/03 22:17 Order name: Lipase; Complete Time: 00:24 [facility] 02/03 22:17 Order name: Basic Metabolic Panel; Complete Time: 00:24 [facility] 02/03 22:17 Order name: CBC with Automated Diff; Complete Time: 23:49 [facility] 02/03 22:17 Order name: XRAY Chest (1 view) [facility] 02/03 22:17 Order name: EKG; Complete Time: 22:17 [facility] 02/03 22:17 Order name: Cardiac monitoring; Complete Time: 22:27 [facility] 02/03 22:17 Order name: EKG - Nurse/Tech; Complete Time: 22:27 [facility] 02/03 22:17 Order name: IV Saline Lock; Complete Time: 22:27 [facility] 02/03 22:17 Order name: Labs collected and sent; Complete Time: 22:27 [facility] 02/03 22:48 Order name: COVID-19/FLU A+B (Document "Date of Onset" if Symptomatic); Complete Time: [facility] 00:24 02/04 00:27 Order name: Abdomen EDMS 02/03 22:17 Order name: O2 Per Protocol; Complete Time: [facility] 02/03 22:17 Order name: O2 Sat Monitoring; Complete Time: : [facility] 02/03 22:17 Order name: Urine Dipstick-Ancillary (obtain specimen); Complete Time: : [facility] 02/03 22:17 Order name: Urine Test (obtain specimen); Complete Time: : mh7 EC/13 22:56 Rate is 84 beats/min. Rhythm is regular, Normal Sinus Rhythm with No ectopy. QRS [place] [facility] is Normal. ND interval is normal. QRS interval is normal. QT interval is normal. No Q waves. T waves are Normal. No ST changes noted. Clinical impression: Normal ECG. Administered Medications: 23:29 Drug: Zofran (Ondansetron) 4 mg Route: IVP; Site: right hand; sf1 23:29 Drug: NS 0.9% 1000 ml Route: IV; Rate: 1000 ml; Site: right hand; sf1 23:29 Drug: fentaNYL (PF) 50 mcg Route: IVP; Site: right hand; sf1 23:30 Drug: Pepcid (famotidine) 20 mg Route: IVP; Site: right hand; sf1 02/04 00:54 Drug: Demerol (meperidine) 12.5 mg Route: IVP; Site: right hand; sf1 01:22 Drug: Zofran (Ondansetron) 4 mg Route: IVP; Site: right hand; sf1 01:39 Drug: GI Cocktail without - (Maalox Suspension 30 ml, Lidocaine Liquid 2 % 15 sf1 ml) Route: PO; Disposition Summary: 02/04/22 02:18 Discharge Ordered Location: Home [facility] Problem: an acute exacerbation [facility] Symptoms: have improved mh Condition: Stable [facility] Diagnosis - Abdominal pain, Generalized 7 - Nausea with vomiting, unspecified mh7 - Other specified diabetes mellitus with hyperglycemia [facility] Followup: [facility] - With: Private Physician - When: 1 - 2 days - Reason: Worsening of condition, Recheck today's complaints, Continuance of care, Re-evaluation by your physician Discharge Instructions: - Discharge Summary Sheet mh7 - Hyperglycemia mh7 - Nausea and Vomiting, Adult [facility] - Nausea and Vomiting, Adult, [id number] [facility] - Diabetes Mellitus and Nutrition, Adult [facility] - Abdominal Pain, Adult, [id number] [facility] Forms: - Medication Reconciliation Form [facility] - Thank You Letter [facility] - Antibiotic Education [facility] - Prescription Opioid Use [facility] Prescriptions: - ondansetron 4 mg Oral tablet,disintegrating - place 1 tablet by TRANSLINGUAL route every 8 hours As needed; 10 tablet; 7 Refills: 0, Product Selection Permitted - Pepcid 20 mg Oral Tablet - take 1 tablet by ORAL route every 12 hours for 5 days; 10 tablet; Refills: 0, [facility] Product Selection Permitted - dicyclomine 20 mg Oral Tablet - take 1 tablet by ORAL route 4 times per day As needed; 20 tablet; Refills: 0, [facility] Product Selection Permitted Signatures: Dispatcher [employer] Papito Carrera MD MD 7 Сергей Maya Samantha, RN RN sf1 Pavithra Ocasio PA PA sb3 Corrections: (The following items were deleted from the chart) 00:27 02/03 23:05 Abdomen Pelvis W Con+CT.RAD.BRZ ordered. EDMS EDMS
[2022-02-04 02:40] VITALS: TEMP 98.2
[2022-02-04 02:41] VITALS: O2SAT 100
[2022-02-04 02:43] VITALS: BP 134/66
--- NOTE | 2022-02-04 13:03 | RAD REPORT ---
EXAM DESCRIPTION: XR Chest, 1 View CLINICAL HISTORY: The patient is 36 years old and is Female; CHEST PAIN TECHNIQUE: Frontal view of the chest. COMPARISON: No relevant prior studies available. FINDINGS: Lungs: Unremarkable. No consolidation. Pleural space: Unremarkable. No pneumothorax. Heart: Unremarkable. Mediastinum: Unremarkable. Bones/joints: Unremarkable. IMPRESSION: No acute findings in the chest. Electronically signed by: Ezra Dudley MD 02/04/2022 6:42 AM CDT Due to temporary technical issues with the PACS/Fluency reporting system, reports are being signed by the in house radiologist without review as a courtesy to ensure prompt reporting. The interpreting r adiologist is fully responsible for the content of the report.
--- NOTE | 2022-02-04 14:43 | RAD REPORT ---
EXAM DESCRIPTION: CT ABDOMEN PELVIS WITHOUT IV CONTRAST Exam date: 02/03/2022 11:04 PM CDT COMPARISON: CT abdomen pelvis January 22, 2022 CLINICAL HISTORY: Diarrhea, abdominal pain, vomiting TECHNIQUE: Multiple helical axial images were obtained through the abdomen and pelvis without intrav enous contrast. Sagittal and coronal reformatted images are reviewed as well. All CT scans at this facility use dose modulation, iterative reconstruction, and/or weight-based dosi ng when appropriate to reduce radiation dose to as low as reasonably achievable. Findings: Lung bases: Unremarkable. Liver: Homogenous attenuation is demonstrated. Gallbladder/biliary: Gallbladder is surgically absent. No evidence of biliary ductal dilatation. Pancreas: Unremarkable. Spleen: Unremarkable. Adrenals: Unremarkable. Kidneys and ureters: No evidence of renal or ureteral stones. No hydronephrosis. Bladder: Unremarkable. Pelvic organs: Unremarkable. Bowel: No evidence of bowel obstruction. No bowel wall thickening. Appendix appears unremarkable. Peritoneum: No free air. No significant free fluid. Lymph nodes: Unremarkable. Vasculature: Mild aortic atherosclerosis is present. Soft tissues: Unremarkable. Bones: Unremarkable. IMPRESSION: No evidence for an acute process within the abdomen or pelvis. Electronically signed by: Ed Panda MD 02/04/2022 2:00 AM CDT Due to temporary technical issues with the PACS/Fluency reporting system, reports are being signed by the in house radiologist without review as a courtesy to ensure prompt reporting. The interpreting r adiologist is fully responsible for the content of the report.
== END 2022-02-04 02:29 | disposition home or self-care (01) ==
LOC: ER 21:26
DX: E13.65 Other specified diabetes mellitus with hyperglycemia (principal); R10.84 Generalized abdominal pain; R07.9 Chest pain, unspecified; F17.210 Nicotine dependence, cigarettes, uncomplicated; Z20.822 Contact with and (suspected) exposure to COVID-19; Z88.1 Allergy status to other antibiotic agents; Z88.5 Allergy status to narcotic agent
CPT/HCPCS: 0240U; 36415; 71045; 74176; 80048; 80076; 80307; 81003; 81015; 81025; 83690; 83735; 83880; 84484; 85025; 85610; 93005; 96374; 96375; 99284; J2175; J2405; J3010; J7030

== ENCOUNTER 2022-02-19 19:52 | Emergency (ER) | payer SELFPAY ==
[2022-02-19 21:31] LABS: Urine Blood Trace-intact (Negative); Urine Glucose 2+ (Negative); Urine Protein 1+ (Negative); Urine Specific Gravity 1.015 (1.005-1.030); Urine pH 5.5 (5.0-7.0)
[2022-02-19] MEDS ORDERED: ONDANSETRON 4 MG (ODT) TAB ONE (21:34)
[2022-02-19] MEDS ORDERED: MEPERIDINE HCL 25 MG/ML SYR ONE (21:34)
[2022-02-19 21:54] LABS: Urine Bacteria 20-50 /HPF (<20); Urine RBC <5 /HPF (NONE SEEN); Urine Yeast PRESENT (NONE SEEN)
--- NOTE | 2022-02-19 22:27 | ER ---
Nurse's Notes [facility] Name: Ara Mercado Age: 36 yrs Sex: Female : 1985 Arrival Date: 02/19/2022 Time: 19:55 Bed 11 Private MD: Diagnosis: Low back pain;UTI/ Urinary tract infection, site not specified Presentation: 02/19 21:13 Chief complaint: Patient states: " I am having lower back pain that is shooting to my vc1 left hip and groin area.". Coronavirus screen: Vaccine status: Patient reports being unvaccinated. At this time, the client does not indicate any symptoms associated with coronavirus-19. Ebola Screen: No symptoms or risks identified at this time. Risk Assessment: Do you want to hurt yourself or someone else? Patient reports no desire to harm self or others. 21:13 Method Of Arrival: Ambulatory vc1 21:13 Acuity: CHARISSA 3 vc1 Triage Assessment: 21:22 General: Appears uncomfortable, Behavior is calm, cooperative, appropriate for age. vc1 Neuro: Level of Consciousness is awake, alert, obeys commands, Oriented to person, place, time, situation, Appropriate for age. Cardiovascular: Denies chest pain. Musculoskeletal: Reports pain in right low back and left low back. Historical: - Allergies: 21:16 Bactrim; vc1 21:16 Amoxicillin; vc1 21:16 Toradol; vc1 21:16 Tramadol HCl; vc1 21:16 Morphine; vc1 - Immunization history:: Adult Immunizations up to date. - Social history:: Smoking status: Patient reports the use of cigarette tobacco products, smokes one-half pack cigarettes per day. Screenin:35 Abuse screen: Denies threats or abuse. Denies injuries from another. Nutritional lg3 screening: No deficits noted. Tuberculosis screening: No symptoms or risk factors identified. Fall Risk None identified. Assessment: 21:17 General: Appears in no apparent distress. comfortable, Behavior is calm, cooperative, ld1 appropriate for age. Pain: Complains of pain in left low back, right low back and left femoral area Pain does not radiate. Pain currently is 8 out of 10 on a pain scale. Neuro: Level of Consciousness is awake, alert, obeys commands, Oriented to person, place, time, situation. Cardiovascular: Capillary refill < 3 seconds Patient's skin is warm and dry. Rhythm is regular. Respiratory: Airway is patent Respiratory effort is even, unlabored. GI: Abdomen is round non-distended. : No signs and/or symptoms were reported regarding the genitourinary system. EENT: No signs and/or symptoms were reported regarding the EENT system. Derm: No signs and/or symptoms reported regarding the dermatologic system. Musculoskeletal: No signs and/or symptoms reported regarding the musculoskeletal system. 22:29 Reassessment: Patient appears in no apparent distress at this time. Patient and/or ld1 family updated on plan of care and expected duration. Pain level reassessed. Patient is alert, oriented x 3, equal unlabored respirations, skin warm/dry/pink. Patient states feeling better. Vital Signs: 21:13 Weight 73.48 kg; Height 5 ft. 2 in. (157.48 cm); Pain 9/10; vc1 21:25 BP 130 / 76 RA Sitting (auto/reg); Pulse 86 MON; Resp 16 S; Temp 97.3(O); Pulse Ox 97% ds4 on R/A; Weight 73.48 kg (R); Height 5 ft. 2 in. (157.48 cm); Pain 9/10; 22:29 BP 135 / 86; Pulse 92; Resp 18; Pulse Ox 100% on R/A; ld1 21:25 Body Mass Index 29.63 (73.48 kg, 157.48 cm) ds4 ED Course: 19:55 Patient arrived in ED. jj6 20:29 Triage completed. lg3 20:37 Umair Dorsey PA is PHCP. jr8 20:37 Rashad Melgoza MD is Attending Physician. jr8 20:59 Umair Dorsey PA is PHCP. jr8 20:59 Rashad Melgoza MD is Attending Physician. jr8 21:07 Linsey Nelson, VÍCTOR is Primary Nurse. ld1 21:23 Arm band placed on right wrist. vc1 22:36 No provider procedures requiring assistance completed. Patient did not have IV access ld1 during this emergency room visit. Administered Medications: 21:34 Drug: Demerol (meperidine) 50 mg Route: IM; Site: right deltoid; ld1 21:34 Drug: Zofran (Ondansetron) 4 mg Route: PO; ld1 22:36 Drug: DiFLUcan (fluconazole) 150 mg Route: PO; ld1 Outcome: 22:27 Discharge ordered by . eileen 22:36 Discharged to home ambulatory. ld1 22:36 Condition: stable 22:36 Discharge instructions given to patient, family, Instructed on discharge instructions, follow up and referral plans. medication usage, Demonstrated understanding of instructions, follow-up care, medications, Prescriptions given X 3. 22:37 Patient left the ED. ld1 Signatures: Umair Dorsey PA PA jr8 Tyler Machado ds4 Yesenia Gaines RN RN lg3 Linsey Nelson RN RN ld1 Beatriz Demarcoj6 Lora Victor RN RN vc1 Corrections: (The following items were deleted from the chart) 20:42 20:27 Chief complaint: Patient states: pain in port. nausea and heartburn. current 3 hospice nurse told her that she needed to come and been seen. [facility] 20:42 20:27 Coronavirus screen: Client denies travel out of the [place] in the last 14 days. At [facility] this time, the client does not indicate any symptoms associated with coronavirus-19. [facility] 20:42 20:27 Ebola Screen: No symptoms or risks identified at this time. [place] [id number] 20:42 20:27 Initial Sepsis Screen: Does the patient meet any 2 criteria? No. Patient's [facility] initial sepsis screen is negative. Does the patient have a suspected source of infection? No. Patient's initial sepsis screen is negative. [facility] 20:42 20:27 Risk Assessment: Do you want to hurt yourself or someone else? Patient reports no [facility] desire to harm self or others. [facility] 20:42 20:27 Onset of symptoms was February 19, 2022 [place] [id number] 20:42 20:27 Method Of Arrival: Ambulatory [place] [address] 20:42 20:27 BP 119 / 76; Pulse 84bpm; Resp 16bpm; Spontaneous; Pulse Ox 99% RA; Temp 98.3F 3 Oral; 67.59 kg Reported; Height 5 ft. 5 in. Reported; BMI: 24.7; Pain 10/10; [facility] 20:42 20:27 Acuity: CHARISSA 3 lg3 lg3 20:43 20:29 Allergies: Amoxicillin; lg3 lg3 20:43 20:29 Allergies: Bactrim; lg3 lg3 20:43 20:29 Allergies: Flagyl; lg3 lg3 20:43 20:29 Allergies: Morphine; lg3 lg3 20:43 20:29 Allergies: Toradol; lg3 lg3 20:43 20:29 Allergies: tramadol; lg3 lg3 20:43 20:29 Home Meds: glipizide 5 mg Oral tab 1 tab; lg3 lg3 20:43 20:29 Home Meds: gabapentin 300 mg Oral cap 1 cap 3 times per day; lg3 lg3 20:43 20:29 Home Meds: dilaudid; lg3 lg3 20:43 20:29 Home Meds: Methadone Oral; lg3 lg3 20:43 20:29 PMHx: diabetes mellitus; lg3 lg3 20:43 20:29 PMHx: gallstone; lg3 lg3 20:43 20:29 PMHx: neuropathy; lg3 lg3 20:43 20:29 PMHx: vulvular cancer; lg3 lg3 20:43 20:29 PSHx: Cholecystectomy; lg3 lg3 20:43 20:29 Immunization history: Adult Immunizations up to date, Client reports receiving lg3 the 2nd dose of the Covid vaccine, pfizer X3 lg3 20:43 20:29 Social history: Smoking status: Patient reports the use of cigarette tobacco lg3 products, smokes one-half pack cigarettes per day, Patient/guardian denies using alcohol, lg3 20:43 20:29 General: Appears in no apparent distress. comfortable, Behavior is calm, lg3 cooperative, lg3 20:43 20:29 Pain: Complains of pain in right shoulder lg3 lg3 20:43 20:29 EENT: No deficits noted. No signs and/or symptoms were reported regarding the lg3 EENT system. lg3 20:43 20:29 Neuro: No deficits noted. Level of Consciousness is awake, alert, obeys commands, lg3 Oriented to person, place, time, situation, lg3 20:43 20:29 Cardiovascular: No deficits noted. Denies chest pain, shortness of breath, lg3 lg3 20:43 20:29 Respiratory: No deficits noted. Airway is patent Trachea midline Respiratory lg3 effort is even, unlabored, Respiratory pattern is regular, symmetrical, lg3 20:43 20:29 GI: No deficits noted. Abdomen is round non-distended, lg3 lg3 20:43 20:29 : No deficits noted. No signs and/or symptoms were reported regarding the lg3 genitourinary system. lg3 20:43 20:29 Derm: Skin is intact, is thin, Skin is dry, port noted to right clavicle area lg3 lg3 20:43 20:29 Musculoskeletal: Circulation, motion, and sensation intact. Capillary refill < 3 lg3 seconds, Range of motion: intact in all extremities, lg3 20:43 20:29 LMP N/A - Hysterectomy lg3 lg3 20:44 20:29 Arm band placed on left wrist. lg3 lg3 21:22 21:18 Social history: Smoking status: Patient denies any tobacco usage or history of. vc1 ld1
--- NOTE | 2022-02-19 22:27 | EDPHYS ---
Physician Documentation [facility] Name: Ara Mercado Age: 36 yrs Sex: Female : 1985 Arrival Date: 02/19/2022 Time: 19:55 Bed 11 Private MD: ZACHARY Physician Rashad Melgoza HPI: 02/19 22:22 This 36 yrs old Female presents to ER via Ambulatory with complaints of Back Pain, Hip jr8 Pain. 22:22 The patient presents with pain that is acute. The symptoms are located in the low back. jr8 Onset: The symptoms/episode began/occurred acutely, today. The pain radiates to the left leg. Associated signs and symptoms: The patient has no apparent associated signs or symptoms. Modifying factors: The patient symptoms are alleviated by nothing, the patient symptoms are aggravated by any movement. Severity of symptoms: At their worst the symptoms were moderate, in the emergency department the symptoms are unchanged. The patient has experienced similar episodes in the past, several times. The patient has not recently seen a physician. This is a 36-year-old female patient that presented emergency room with low back pain and left leg pain radiating to the inguinal region and down her left leg. Patient stated that it started abruptly today. Has had several episodes in the past. Patient has been seen multiple times in the emergency room for similar symptoms in the past as well. Denies any new symptoms at this time.. Historical: - Allergies: 21:16 Bactrim; vc1 21:16 Amoxicillin; vc1 21:16 Toradol; vc1 21:16 Tramadol HCl; vc1 21:16 Morphine; vc1 - Immunization history:: Adult Immunizations up to date. - Social history:: Smoking status: Patient reports the use of cigarette tobacco products, smokes one-half pack cigarettes per day. ROS: 22:22 Eyes: Negative for injury, pain, redness, and discharge, ENT: Negative for injury, jr8 pain, and discharge, Neck: Negative for injury, pain, and swelling, Cardiovascular: Negative for chest pain, palpitations, and edema, Respiratory: Negative for shortness of breath, cough, wheezing, and pleuritic chest pain, Abdomen/GI: Negative for abdominal pain, nausea, vomiting, diarrhea, and constipation, Skin: Negative for injury, rash, and discoloration, Neuro: Negative for headache, weakness, numbness, tingling, and seizure. 22:22 MS/Extremity: Negative for injury and deformity. 22:22 Back: Positive for decreased range of motion, pain at rest, pain with movement, radiated pain. Exam: 22:22 Cardiovascular: Regular rate and rhythm with a normal S1 and S2. No gallops, murmurs, jr8 or rubs. Normal PMI, no JVD. No pulse deficits. Respiratory: Lungs have equal breath sounds bilaterally, clear to auscultation and percussion. No rales, rhonchi or wheezes noted. No increased work of breathing, no retractions or nasal flaring. Abdomen/GI: Soft, non-tender, with normal bowel sounds. No distension or tympany. No guarding or rebound. No evidence of tenderness throughout. Skin: Warm, dry with normal turgor. Normal color with no rashes, no lesions, and no evidence of cellulitis. MS/ Extremity: Pulses equal, no cyanosis. Neurovascular intact. Full, normal range of motion. Neuro: Awake and alert, GCS 15, oriented to person, place, time, and situation. Cranial nerves II-XII grossly intact. Motor strength 5/5 in all extremities. Sensory grossly intact. 22:22 Constitutional: The patient appears alert, awake, in obvious pain. 22:22 Back: pain, that is moderate, of the low back area, ROM is painful, normal spinal alignment noted, CVA tenderness, is absent. Vital Signs: 21:13 Weight 73.48 kg; Height 5 ft. 2 in. (157.48 cm); Pain 9/10; vc1 21:25 BP 130 / 76 RA Sitting (auto/reg); Pulse 86 MON; Resp 16 S; Temp 97.3(O); Pulse Ox 97% ds4 on R/A; Weight 73.48 kg (R); Height 5 ft. 2 in. (157.48 cm); Pain 9/10; 22:29 BP 135 / 86; Pulse 92; Resp 18; Pulse Ox 100% on R/A; ld1 21:25 Body Mass Index 29.63 (73.48 kg, 157.48 cm) ds4 MDM: 21:00 Patient medically screened. [facility] 22:22 Data reviewed: vital signs, nurses notes, lab test result(s), and as a result, I will jr8 discharge patient. Data interpreted: Pulse oximetry: on room air is 97 %. Interpretation: normal. Counseling: I had a detailed discussion with the patient and/or guardian regarding: the historical points, exam findings, and any diagnostic results supporting the discharge/admit diagnosis, lab results, the need for outpatient follow up, a family practitioner, to return to the emergency department if symptoms worsen or persist or if there are any questions or concerns that arise at home. 22:26 ED course: Patient hemodynamically stable. Physical exam reveals pain to lower back jr8 radiating down. Most likely musculoskeletal chronic in nature. Patient doing better after medication. Patient also noted to have yeast infection and urinary tract infection which will be treated for as well. To come back if she were to have worsening of pain any point time. Patient good platelets time will follow up otherwise.. 02/19 21:28 Order name: Urine Microscopic Only; Complete Time: 22:24 jr8 02/19 21:31 Order name: Urine Dipstick-Ancillary; Complete Time: 22:24 EDMS 02/19 21:56 Order name: Urine Culture EDMS 02/19 21:28 Order name: Urine Dipstick-Ancillary (obtain specimen); Complete Time: 21:29 jr8 02/19 21:28 Order name: Urine Test (obtain specimen); Complete Time: 21:29 jr8 Administered Medications: 21:34 Drug: Demerol (meperidine) 50 mg Route: IM; Site: right deltoid; ld1 21:34 Drug: Zofran (Ondansetron) 4 mg Route: PO; ld1 22:36 Drug: DiFLUcan (fluconazole) 150 mg Route: PO; ld1 Disposition Summary: 02/19/22 22:27 Discharge Ordered Location: Home jr8 Problem: new jr8 Symptoms: have improved jr8 Condition: Stable jr8 Diagnosis - Low back pain jr8 - UTI/ Urinary tract infection, site not specified jr8 Followup: jr8 - With: Private Physician - When: 5 - 6 days - Reason: Recheck today's complaints, Continuance of care, Re-evaluation by your physician Discharge Instructions: - Discharge Summary Sheet jr8 - Acute Back Pain, Adult jr8 - Musculoskeletal Pain jr8 - Urinary Tract Infection, Adult jr8 - Heat Therapy jr8 Forms: - Medication Reconciliation Form jr8 - Thank You Letter jr8 - Antibiotic Education jr8 - Prescription Opioid Use jr8 Prescriptions: - Skelaxin 800 mg Oral Tablet - take 1 tablet by ORAL route every 8 hours As needed; 30 tablet; Refills: 0, jr8 Product Selection Permitted - Medrol (Owen) 4 mg Oral Tablets, Dose Pack - take 1 tablet by ORAL route as directed - follow package instructions; 1 jr8 packet; Refills: 0, Product Selection Permitted - Macrobid 100 mg Oral Capsule - take 1 capsule by ORAL route every 12 hours for 7 days; 14 capsule; Refills: 0, jr8 Product Selection Permitted Addendum: 02/21/2022 06:37 Co-signature as Attending Physician, Rashad Melgoza MD I agree with the assessment and c chapman plan of care. Signatures: Dispatcher [employer] EDRashad Hutchison MD MD cha Roszak, Josh, PA PA jr8 Yesenia Gaines RN RN lg3 Linsey Nelson RN RN ld1 Lora Victor RN RN vc1 Corrections: (The following items were deleted from the chart) 02/19 20:43 20:29 Allergies: Amoxicillin; lg3 lg3 20:43 20:29 Allergies: Bactrim; lg3 lg3 20:43 20:29 Allergies: Flagyl; lg3 lg3 20:43 20:29 Allergies: Morphine; lg3 lg3 20:43 20:29 Allergies: Toradol; lg3 lg3 20:43 20:29 Allergies: tramadol; lg3 lg3 20:43 20:29 Home Meds: glipizide 5 mg Oral tab 1 tab; lg3 lg3 20:43 20:29 Home Meds: gabapentin 300 mg Oral cap 1 cap 3 times per day; lg3 lg3 20:43 20:29 Home Meds: dilaudid; lg3 lg3 20:43 20:29 Home Meds: Methadone Oral; lg3 lg3 20:43 20:29 PMHx: diabetes mellitus; lg3 lg3 20:43 20:29 PMHx: gallstone; lg3 lg3 20:43 20:29 PMHx: neuropathy; lg3 lg3 20:43 20:29 PMHx: vulvular cancer; lg3 lg3 20:43 20:29 PSHx: Cholecystectomy; lg3 lg3 20:43 20:29 Immunization history: Adult Immunizations up to date, Client reports receiving lg3 the 2nd dose of the Covid vaccine, pfizer X3 lg3 20:43 20:29 Social history: Smoking status: Patient reports the use of cigarette tobacco lg3 products, smokes one-half pack cigarettes per day, Patient/guardian denies using alcohol, lg3 21:22 21:18 Social history: Smoking status: Patient denies any tobacco usage or history of. vc1 ld1
[2022-02-19] MEDS ORDERED: FLUCONAZOLE 100 MG TAB ONE (22:35)
[2022-02-19 23:46] VITALS: TEMP 97.3
[2022-02-19 23:47] VITALS: BP 135/86; O2SAT 100
== END 2022-02-19 22:37 | disposition home or self-care (01) ==
LOC: ER 19:52
DX: N39.0 Urinary tract infection, site not specified (principal); F17.210 Nicotine dependence, cigarettes, uncomplicated; Z88.1 Allergy status to other antibiotic agents; Z88.5 Allergy status to narcotic agent
CPT/HCPCS: 81003; 81015; 87086; 87088; 96372; 99283; J2175

== ENCOUNTER 2022-02-21 15:40 | Emergency (ER) | payer SELFPAY ==
[2022-02-21 16:35] LABS: Urine Blood Trace-lysed (Negative); Urine Glucose 3+ (Negative); Urine Protein 1+ (Negative); Urine Specific Gravity 1.015 (1.005-1.030)
[2022-02-21] MEDS ORDERED: ONDANSETRON 4 MG/2 ML VIAL ONE (16:45)
[2022-02-21] MEDS ORDERED: FENTANYL CITR 100 MCG/2 ML ONE (16:45)
[2022-02-21] MEDS ORDERED: NA CHLORIDE 0.9% 1,000 ML ONE ×2 (16:45→18:51)
[2022-02-21 17:07] LABS: Urine Bacteria <20 /HPF (<20); Urine RBC NONE SEEN /HPF (NONE SEEN)
[2022-02-21 17:25] LABS: Urine Specific Gravity/Preg 1.015 (1.005-1.030)
--- NOTE | 2022-02-21 17:34 | RAD REPORT ---
EXAM DESCRIPTION: CT - Stone Protocol - 02/21/2022 5:16 pm CLINICAL HISTORY: low back pain;Abd pain COMPARISON: Abdomen Pelvis Wo Contrast dated 02/04/2022; Abdomen Pelvis W Contrast dated 01/22/2022 ; Stone Protocol dated 04/15/2021 TECHNIQUE: Axial 3 mm thick images were obtained without oral or IV contrast. The [id number] span s the entirety of the system including uppermost abdomen and lung bases. All CT scans are performed using dose optimization technique as appropriate and may include automated exposure control or mA/KV adjustment according to patient size. FINDINGS: No hydronephrosis is present and no obstructing ureteral calculi. No nonobstructing calcul i seen. The slight fullness of the pelvis and calices on the right matches the examination from February 04 and March of 2021 No suspicious renal masses. Isodense masses and pyelonephritis are not excluded o n a stone protocol CT scan. No significant adrenal finding. No urinary bladder suspicious finding. No uterine or left ovarian significant finding. Right ovary is enlarged compared to prior imaging and appears to contain a cyst up to 2.9 cm in size. No cyst rupture or hemorrhage findings. No fallopian tube dilatation. Trace amount of fluid in the cul de sac is within physiologic limits. Imaged portions of the liver, spleen and pancreas show no suspicious findings on non-contrast imaging . Cholecystectomy clips are present. No abnormal biliary tree dilatation. No suspicious bowel findings. No appendicitis findings. No hernia, mass or bulky lymphadenopathy noted. No free air, pneumatosis or focal inflammatory strand ing. No significant bony abnormality. IMPRESSION: Noncontrast CT abdomen and pelvis imaging shows no acute or emergent finding. Right ovary has enlarged since prior imaging and appears to contain a cyst up to 2.9 cm in size. No c yst rupture or hemorrhage findings. This is most likely physiologic. Isodense masses and pyelonephritis are not excluded on stone protocol technique.
[2022-02-21 18:14] LABS: AST/SGOT 7 U/L (15-37); Albumin 3.2 g/dL (3.4-5.0); Alkaline Phosphatase 93 U/L (45-117); BUN Blood Urea Nitrogen 8 mg/dL (7-18); Bicarbonate 24 mmol/L (21-32); Bilirubin Total 0.3 mg/dL (0.2-1.0); Glucose Level 389 mg/dL (74-106); Lipase 174 U/L (73-393); Potassium 4.4 mmol/L (3.5-5.1); Protein, Total 7.4 g/dL (6.4-8.2); Sodium Level 135 mmol/L (136-145)
[2022-02-21 18:20] LABS: ALT/SGPT < 10 U/L (12-78)
[2022-02-21 18:30] LABS: Absolute Lymphocytes (CBC) 2.9 K/uL (0.7-4.9); Hematocrit 35.2 % (36.0-45.0); Lymphocytes % 22.5 % (15.3-44.8); MPV 8.9 fL (7.6-11.3); RBC Red Blood Cell Count 3.98 M/uL (3.86-4.86)
[2022-02-21] MEDS ORDERED: LIDOCAINE 4% PATCH ONE (18:51)
[2022-02-21] MEDS ORDERED: INSULIN -REGULAR HUMAN 50 UNIT/0.5 ML ML ONE (18:51)
[2022-02-21 18:54] LABS: White Blood Cell Scan OK (OK)
[2022-02-21 18:55] LABS: Blood Morphology Comment NOT SEEN (NOT SEEN); Platelet Estimate ADEQ
[2022-02-21] MEDS ORDERED: FAMOTIDINE 20 MG/2 ML VIAL IV ONE (20:03)
--- NOTE | 2022-02-21 20:30 | RAD REPORT ---
EXAM DESCRIPTION: US - Transvaginal Study Probe - 02/21/2022 8:05 pm CLINICAL HISTORY: lower abdomen pain COMPARISON: Transvaginal Study Probe dated 01/22/2022; Stone Protocol dated 02/21/2022 TECHNIQUE: Endovaginal sonography was performed. FINDINGS: A 2.8 centimeter right ovarian cyst is present with septations. Doppler evaluation shows n o abnormal blood flow within the septations or along the rim of the cyst. Blood flow is seen in the r ight ovarian stroma. Normal size left ovary is seen with normal ovarian stroma blood flow pattern. Normal size uterus is present. No endometrial or myometrial suspicious finding. No blood or fluid in the cul de sac. IMPRESSION: Minimally complex 2.8 cm right ovarian cyst. Sonographic re-evaluation after 3-4 menstrual cycles could be performed to evaluate for involution.
[2022-02-21] MEDS ORDERED: MEPERIDINE HCL 25 MG/ML SYR ONE (21:13)
[2022-02-21] MEDS ORDERED: DIPHENHYDRAMINE 50 MG/ML VIAL ONE (21:47)
[2022-02-21] MEDS ORDERED: METHYLPREDNISOLONE 125 MG INJ ONE (21:47)
--- NOTE | 2022-02-21 22:08 | ER ---
Nurse's Notes [facility] Name: Ara Mercado Age: 36 yrs Sex: Female : 1985 Arrival Date: 02/21/2022 Time: 15:42 Bed 12 Private MD: Diagnosis: Low back pain;Other and unspecified ovarian cysts;Lower abdominal pain, unspecified Presentation: 02/21 16:10 Chief complaint: Patient states: she is experiencing low back pain which stretches ap3 across her lower back. Patient reports she was evaluated in the ED for the same symptoms Friday of which she was dx with UTI and yeast infection. Patient reports her symptoms have not improved. Coronavirus screen: At this time, the client does not indicate any symptoms associated with coronavirus-19. Ebola Screen: No symptoms or risks identified at this time. Initial Sepsis Screen: Does the patient meet any 2 criteria? No. Patient's initial sepsis screen is negative. Does the patient have a suspected source of infection? Yes: Dysuria/Frequency/Urgency/UTI. Risk Assessment: Do you want to hurt yourself or someone else? Patient reports no desire to harm self or others. Onset of symptoms was February 19, 2022. 16:10 Method Of Arrival: Ambulatory ap3 16:10 Acuity: CHARISSA 4 ap3 19:27 Acuity: CHARISSA 3 ab2 Triage Assessment: 16:12 General: Appears in no apparent distress. uncomfortable, Behavior is calm, cooperative, ap3 appropriate for age. Pain: Complains of pain in low back area Pain currently is 10 out of 10 on a pain scale. Also complains of urinary frequency and burning with urination. Neuro: Level of Consciousness is awake, alert, obeys commands, Oriented to person, place, time, situation, Appropriate for age. Cardiovascular: Patient's skin is warm and dry. Respiratory: Airway is patent Respiratory effort is even, unlabored. : Reports urgency, urinary frequency. METAPHYSICIAN: 16:14 LMP 01/28/2022 ap3 Historical: - Allergies: 16:12 Amoxicillin; ap3 16:12 Bactrim; ap3 16:12 Morphine; ap3 16:12 Toradol; ap3 16:12 Tramadol HCl; ap3 16:12 Flagyl; ap3 - Home Meds: 16:12 gabapentin oral [Active]; ap3 - PMHx: 16:12 Diabetes mellitus; ap3 - PSHx: 16:12 Cholecystectomy; ap3 - Immunization history:: Client reports receiving the 2nd dose of the Covid vaccine, Flu vaccine is not up to date. - Social history:: Smoking status: Patient reports the use of cigarette tobacco products, smokes one-half pack cigarettes per day. Screenin:14 Abuse screen: Denies threats or abuse. Nutritional screening: No deficits noted. ap3 Tuberculosis screening: No symptoms or risk factors identified. 20:03 Fall Risk None identified. tk1 Assessment: 16:15 General: patient provided with urine specimen cup and education on proper urine ap3 collection. patient verbalized understanding. 20:03 General: Appears uncomfortable, obese, well groomed, well developed, well nourished, tk1 Behavior is calm, cooperative, appropriate for age. Pain: Complains of pain in low back area and bilateral lower abdomen Pain does not radiate. Pain currently is 9 out of 10 on a pain scale. Quality of pain is described as aching, Pain began 1 day ago. Is continuous. Neuro: Level of Consciousness is awake, alert, obeys commands, Oriented to person, place, time, Assistive Technology Trainer are equal bilaterally Moves all extremities. Gait is steady, Speech is normal. Cardiovascular: Capillary refill < 3 seconds is brisk in bilateral fingers. Respiratory: No deficits noted. Airway is patent Respiratory effort is even, unlabored, Respiratory pattern is regular, symmetrical. GI: Abdomen is round non-distended, Bowel sounds present X 4 quads. Abd is soft X 4 quads Reports lower abdominal pain, constipation. : No deficits noted. No signs and/or symptoms were reported regarding the genitourinary system. EENT: No deficits noted. No signs and/or symptoms were reported regarding the EENT system. Derm: No deficits noted. No signs and/or symptoms reported regarding the dermatologic system. Musculoskeletal: No deficits noted. No signs and/or symptoms reported regarding the musculoskeletal system. 21:52 Reassessment: Patient with hives to right forearm at IV site. ALLISON Ruiz notified. New tk1 orders received. 22:09 Reassessment: Decrease in hives to right forearm. Patient verbalized a decrease in tk1 itching. ALLISON Ruiz updated. D/C per MD order. Discharge/Prescription instructions given to patient. Verbalized understanding. Vital Signs: 16:10 BP 116 / 80; Pulse 93; Resp 19; Temp 98.8; Pulse Ox 99% ; Weight 73.48 kg; Height 5 ft. ap3 2 in. (157.48 cm); Pain 10/10; 19:30 BP 120 / ??? LA Supine (auto/reg); Pulse 75 MON; Resp 16 S; Temp 98; Pulse Ox 100% on tk1 R/A; Pain 9/10; 21:30 BP 119 / 68 LA Supine (auto/reg); Pulse 75 MON; Resp 18 S; Temp 98.3; Pulse Ox 100% ; tk1 Pain 7/10; 22:00 Pain 7/10; tk1 16:10 Body Mass Index 29.63 (73.48 kg, 157.48 cm) ap3 ED Course: 15:42 Patient arrived in ED. kz 15:49 Rashad Sandoval PA is PHCP. cp 15:49 Alex Lemons MD is Attending Physician. cp 16:12 Triage completed. ap3 16:14 Arm band placed on left wrist. ap3 16:17 Robert Cooper, VÍCTOR is Primary Nurse. ll1 16:17 Patient placed in an exam room, on a stretcher. ll1 16:18 Patient has correct armband on for positive identification. Bed in low position. ll1 Cardiac monitoring not applicable on this patient. 16:36 Urine Microscopic Only Sent. iw 17:17 CT Stone Protocol In Process Unspecified. EDMS 20:03 Awaiting: Pelvic Exam. tk1 20:03 Assist provider with pelvic exam:. IV is patent, is intact, with fluids infusing freely.tk1 20:07 US Transvaginal Study (Probe) In Process Unspecified. EDMS 21:13 Wet Prep Sent. tk1 21:13 GC (GONORR/CHLAMYDIA) Probe Sent. tk1 22:23 IV discontinued, intact, bleeding controlled, No redness/swelling at site. Pressure tk1 dressing applied. Administered Medications: 17:11 Drug: NS 0.9% 1000 ml Route: IV; Rate: 1 bolus; Site: right forearm; ll1 19:04 Follow up: Response: No adverse reaction; IV Status: Completed infusion; IV Intake: ll1 1000ml 17:11 Drug: Zofran (Ondansetron) 4 mg Route: IVP; Site: right forearm; ll1 17:39 Follow up: Response: No adverse reaction ll1 17:11 Drug: fentaNYL (PF) 25 mcg {Note: rass 0, pain 10/10.} Route: IVP; Site: right forearm; ll1 17:38 Follow up: Response: No adverse reaction; Pain is decreased; RASS: Alert and Calm (0) ll1 17:39 Drug: fentaNYL (PF) 25 mcg {Note: rass 0, pain 9/10.} Route: IVP; Site: right forearm; ll1 17:40 CANCELLED (Duplicate Order): fentaNYL (PF) 25 mcg IVP once; RASS on ADMIN: Combtv4, ll1 Very Agttd3, Agttd2, Rstlss1, AlertClm0, Drwsy-1, Lt Sdtn-2, Mod Sdtn-3, Dp Sdtn-4, UnArsble-5 19:00 Drug: Insulin Regular Human 10 units {Co-Signature: sellers (Tammie Kirby).} Route: IVP; ll1 Site: right forearm; 19:02 Drug: NS 0.9% 1000 ml Route: IV; Rate: 1 bolus; Site: right forearm; ll1 19:02 Drug: fentaNYL (PF) 25 mcg Route: IVP; Site: right forearm; ll1 19:03 Drug: Lidoderm Patch 5 % (700 mg/patch) 1 patches {Note: lower back.} Route: Topical; ll1 Site: affected area; 20:03 Drug: Pepcid (famotidine) 20 mg Route: IVP; Rate: 2 mg/min; Infused Over: 2 mins; Site: tk1 right antecubital; 20:45 Follow up: Response: No adverse reaction tk1 21:12 Drug: Demerol (meperidine) 25 mg Route: IVP; Rate: 12.5 mg/min; Infused Over: 2 mins; tk1 Site: right antecubital; 22:00 Follow up: Pain 7/10 Adult; Response: Pain is decreased tk1 22:00 Follow up: Response: RASS: Alert and Calm (0) tk1 21:53 Drug: Benadryl (diphenhydrAMINE) 25 mg Route: IVP; Rate: 12.5 mg/min; Infused Over: 2 tk1 mins; Site: right forearm; 22:24 Follow up: Response: Marked relief of symptoms tk1 21:53 Drug: SOLU-Medrol (methylPrednisoLONE) 125 mg Route: IVP; Rate: 1 ml/min; Infused Over: tk1 2 mins; Site: right forearm; 22:24 Follow up: Response: Marked relief of symptoms tk1 Intake: 19:04 IV: 1000ml; Total: 1000ml. ll1 Outcome: 22:08 Discharge ordered by . cp 22:23 Discharged to home ambulatory, with family. tk1 22:23 Condition: stable 22:23 Discharge instructions given to patient, Instructed on discharge instructions, follow up and referral plans. medication usage, Demonstrated understanding of instructions, follow-up care, medications, Prescriptions given X 3. 22:25 Patient left the ED. tw5 Signatures: Dispatcher [employer] EDLyndsay Astudillo, RN RN Rashad Ocampo PA PA cp Prokisch, Amanda, RN RN ap3 Robert Cooper RN RN ll1 Marissa Wilkins tw5 Aydee Bolden tk1 Сергей Maya Kelly kz Tammie Kirby tk1
--- NOTE | 2022-02-21 22:08 | EDPHYS ---
Physician Documentation [facility] Name: Ara Mercado Age: 36 yrs Sex: Female : 1985 Arrival Date: 02/21/2022 Time: 15:42 Bed 12 Private MD: ED Physician Alex Lemons HPI: 02/21 16:36 This 36 yrs old Female presents to ER via Ambulatory with complaints of Low Back Pain. cp 16:36 The patient presents with pain that is acute, with no known mechanism of injury. The cp symptoms are located in the low back. Onset: The symptoms/episode began/occurred 2 day(s) ago. 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 - Social history:: Smoking status: Patient reports the use of cigarette tobacco products, smokes one-half pack cigarettes per day. ROS: 16:45 Constitutional: Negative for body aches, chills, fever, poor PO intake. cp 16:45 Eyes: Negative for injury, pain, redness, and discharge. cp 16:45 ENT: Negative for drainage from ear(s), ear pain, sore throat, difficulty swallowing, difficulty handling secretions. 16:45 Cardiovascular: Negative for chest pain, palpitations. 16:45 Respiratory: Negative for cough, shortness of breath, wheezing. 16:45 Abdomen/GI: Positive for abdominal pain, of the right lower quadrant and left lower quadrant, Negative for vomiting, diarrhea, constipation. 16:45 Back: Positive for pain at rest, pain with movement, of the low back area. 16:45 : Positive for vaginal discharge, Negative for hematuria, burning with urination. 16:45 Neuro: Negative for altered mental status, headache, numbness, weakness. 16:45 All other systems are negative. Exam: 16:50 Constitutional: The patient appears in no acute distress, alert, awake, cp non-diaphoretic, non-toxic, well developed, well nourished. 16:50 Head/Face: Normocephalic, atraumatic. cp 16:50 Eyes: Periorbital structures: appear normal, Conjunctiva: normal, no exudate, no cp injection, Sclera: no appreciated abnormality, Lids and lashes: appear normal, bilaterally. 16:50 ENT: External ear(s): are unremarkable, Nose: is normal, Mouth: Lips: moist, Oral mucosa: pink and intact, moist, Posterior pharynx: Airway: no evidence of obstruction, patent. 16:50 Neck: ROM/movement: is normal, is supple, without pain, no range of motions limitations. 16:50 Chest/axilla: Inspection: normal. 16:50 Cardiovascular: Rate: normal, Rhythm: regular. 16:50 Respiratory: the patient does not display signs of respiratory distress, Respirations: normal, no use of accessory muscles, no retractions, labored breathing, is not present, Breath sounds: are clear throughout, no decreased breath sounds, no stridor, no wheezing. 16:50 Abdomen/GI: Inspection: abdomen appears normal, Bowel sounds: active, all quadrants, Palpation: soft, in all quadrants, moderate abdominal tenderness, in the right lower quadrant and left lower quadrant, rebound tenderness, is not appreciated, involuntary guarding, is not appreciated. 16:50 Back: pain, that is moderate, of the low back area, ROM is painful, Straight leg raises: of both lower extremities does not illicit pain. 16:50 Skin: cellulitis, is not appreciated, no rash present. 16:50 Neuro: Orientation: to person, place \T\ time. Mentation: is normal. 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 Vital Signs: 16:10 BP 116 / 80; Pulse 93; Resp 19; Temp 98.8; Pulse Ox 99% ; Weight 73.48 kg; Height 5 ft. ap3 2 in. (157.48 cm); Pain 10/10; 19:30 BP 120 / ??? LA Supine (auto/reg); Pulse 75 MON; Resp 16 S; Temp 98; Pulse Ox 100% on tk1 R/A; Pain 9/10; 21:30 BP 119 / 68 LA Supine (auto/reg); Pulse 75 MON; Resp 18 S; Temp 98.3; Pulse Ox 100% ; tk1 Pain 7/10; 22:00 Pain 7/10; tk1 16:10 Body Mass Index 29.63 (73.48 kg, 157.48 cm) ap3 MDM: 16:17 Patient medically screened. cp 17:00 Differential diagnosis: sciatica, Herniated disc UTI, PID, low back pain. cp 22:08 Data reviewed: vital signs, nurses notes, lab test result(s), radiologic studies, CT cp scan, ultrasound. 22:08 Counseling: I had a detailed discussion with the patient and/or guardian regarding: the cp historical points, exam findings, and any diagnostic results supporting the discharge/admit diagnosis, lab results, radiology results, the need for outpatient follow up, a family practitioner, to return to the emergency department if symptoms worsen or persist or if there are any questions or concerns that arise at home. Response to treatment: the patient's symptoms have markedly improved after treatment, VSS. Pain improved with meds. Low suspicion for PID as patient with no CMT, scant discharge on exam. Will discharge to home for continued monitoring. 02/21 16:18 Order name: Urine Microscopic Only; Complete Time: 17:48 cp 02/21 17:49 Interpretation: Reviewed. 02/21 16:36 Order name: Urine Dipstick-Ancillary; Complete Time: 17:48 EDMS 02/21 17:48 Interpretation: Normal except: UGLUC 3+; UBLD Trace-lysed; UPROT 1+. cp 02/21 16:36 Order name: CBC with Diff; Complete Time: 20:40 cp 02/21 18:40 Interpretation: Normal except: WBC 12.7; HCT 35.2; NEUT A 8.6. cp 02/21 16:36 Order name: CMP; Complete Time: 18:25 cp 02/21 18:25 Interpretation: Normal except: NA 135; GLUC 389; GFR 61; AST 7; ALT < 10; ALB 3.2; GLOB cp 4.2; A/G 0.8. 02/21 16:36 Order name: Lipase; Complete Time: 18:25 cp 02/21 16:36 Order name: CT Stone Protocol; Complete Time: 17:48 cp 02/21 16:58 Order name: Urine --Ancillary (enter results); Complete Time: 17:48 em1 02/21 18:48 Order name: GC (GONORR/CHLAMYDIA) Probe 02/21 18:48 Order name: Wet Prep; Complete Time: 22:07 cp 02/21 18:48 Order name: US Transvaginal Study (Probe); Complete Time: 20:40 cp 02/21 20:40 Interpretation: Reviewed report. cp 02/21 18:54 Order name: CBC Smear Scan; Complete Time: 20:40 EDMS 02/21 22:19 Order name: Glucose, Ancillary Testing EDSD 02/21 16:18 Order name: Urine Dipstick-Ancillary (obtain specimen); Complete Time: 16:35 cp 02/21 16:18 Order name: Urine Test (obtain specimen); Complete Time: 16:35 cp 02/21 16:36 Order name: IV Saline Lock; Complete Time: 16:37 cp 02/21 16:36 Order name: Labs collected and sent; Complete Time: 16:37 cp 02/21 18:48 Order name: Pelvic Exam Setup; Complete Time: 21:13 cp 02/21 21:37 Order name: Accucheck Blood Glucose cp Administered Medications: 17:11 Drug: NS 0.9% 1000 ml Route: IV; Rate: 1 bolus; Site: right forearm; ll1 19:04 Follow up: Response: No adverse reaction; IV Status: Completed infusion; IV Intake: ll1 1000ml 17:11 Drug: Zofran (Ondansetron) 4 mg Route: IVP; Site: right forearm; ll1 17:39 Follow up: Response: No adverse reaction ll1 17:11 Drug: fentaNYL (PF) 25 mcg {Note: rass 0, pain 10/10.} Route: IVP; Site: right forearm; ll1 17:38 Follow up: Response: No adverse reaction; Pain is decreased; RASS: Alert and Calm (0) ll1 17:39 Drug: fentaNYL (PF) 25 mcg {Note: rass 0, pain 9/10.} Route: IVP; Site: right forearm; ll1 17:40 CANCELLED (Duplicate Order): fentaNYL (PF) 25 mcg IVP once; RASS on ADMIN: Combtv4, ll1 Very Agttd3, Agttd2, Rstlss1, AlertClm0, Drwsy-1, Lt Sdtn-2, Mod Sdtn-3, Dp Sdtn-4, UnArsble-5 19:00 Drug: Insulin Regular Human 10 units {Co-Signature: tk1 (Aydee Bolden).} Route: IVP; ll1 Site: right forearm; 19:02 Drug: NS 0.9% 1000 ml Route: IV; Rate: 1 bolus; Site: right forearm; ll1 19:02 Drug: fentaNYL (PF) 25 mcg Route: IVP; Site: right forearm; ll1 19:03 Drug: Lidoderm Patch 5 % (700 mg/patch) 1 patches {Note: lower back.} Route: Topical; ll1 Site: affected area; 20:03 Drug: Pepcid (famotidine) 20 mg Route: IVP; Rate: 2 mg/min; Infused Over: 2 mins; Site: tk1 right antecubital; 20:45 Follow up: Response: No adverse reaction tk1 21:12 Drug: Demerol (meperidine) 25 mg Route: IVP; Rate: 12.5 mg/min; Infused Over: 2 mins; tk1 Site: right antecubital; 22:00 Follow up: Pain 7/10 Adult; Response: Pain is decreased tk1 22:00 Follow up: Response: RASS: Alert and Calm (0) tk1 21:53 Drug: Benadryl (diphenhydrAMINE) 25 mg Route: IVP; Rate: 12.5 mg/min; Infused Over: 2 tk1 mins; Site: right forearm; 22:24 Follow up: Response: Marked relief of symptoms tk1 21:53 Drug: SOLU-Medrol (methylPrednisoLONE) 125 mg Route: IVP; Rate: 1 ml/min; Infused Over: tk1 2 mins; Site: right forearm; 22:24 Follow up: Response: Marked relief of symptoms tk1 Disposition: 02/22 16:29 Co-signature as Attending Physician, Alex Lemons MD. rn Disposition Summary: 02/21/22 22:08 Discharge Ordered Location: Home cp Problem: new cp Symptoms: have improved cp Condition: Stable cp Diagnosis - Low back pain cp - Other and unspecified ovarian cysts cp - Lower abdominal pain, unspecified cp Followup: cp - With: Private Physician - When: 2 - 3 days - Reason: Recheck today's complaints Discharge Instructions: - Abdominal Pain, Adult cp - Acute Back Pain, Adult cp - Discharge Summary Sheet cs9 - Ovarian Cyst cp - Back Exercises cp Forms: - School release form cs9 - Medication Reconciliation Form cp - Thank You Letter cp - Antibiotic Education cp - Prescription Opioid Use cp Prescriptions: - Lidoderm 5 % Topical adhesive patch,medicated - apply 1 patch by TOPICAL route once daily; 1 box; Refills: 0, Product Selection cp Permitted - Cyclobenzaprine 10 mg Oral Tablet - take 1 tablet by ORAL route every 8 hours As needed; 30 tablet; Refills: 0, cp Product Selection Permitted - Tylenol-Codeine #3 300 mg-30 mg Oral - take 2 tablet by ORAL route every 8-10 hours; 15 tablet; Refills: 0, Product cp Selection Permitted Signatures: Dispatcher [employer] EDMS Alex Lemons MD MD rn Page, Corey, PA PA cp Nicole Benavides RN RN ap3 Robert Cooper RN RN ll1 Yuan, Aydee tk1 Aydee Bolden tk1 Corrections: (The following items were deleted from the chart) 02/21 17:40 17:35 fentaNYL (PF) 25 mcg IVP once; RASS on ADMIN: Combtv4, Very Agttd3, Agttd2, ll1 Rstlss1, AlertClm0, Drwsy-1, Lt Sdtn-2, Mod Sdtn-3, Dp Sdtn-4, UnArsble-5 ordered. cp
[2022-02-21 22:54] VITALS: O2SAT 100
[2022-02-21 22:55] VITALS: BP 119/68; TEMP 98.3
[2022-02-25 19:04] LABS: C.trachomatis RNA,TMA Not Detected (Not Detected)
== END 2022-02-21 22:25 | disposition home or self-care (01) ==
LOC: ER 15:40
DX: N83.299 Other ovarian cyst, unspecified side (principal); R10.30 Lower abdominal pain, unspecified; E11.9 Type 2 diabetes mellitus without complications; Z88.1 Allergy status to other antibiotic agents; Z88.5 Allergy status to narcotic agent; Z88.8 Allergy status to other drugs, medicaments and biological substances
CPT/HCPCS: 36415; 74176; 76377; 76830; 80053; 81003; 81015; 81025; 82947; 83690; 85025; 87210; 87490; 87590; 99284; J1200; J2175; J2405; J2930; J3010; J7030

== ENCOUNTER 2022-04-01 04:38 | Emergency (ER) | payer SELFPAY ==
[2022-04-01 05:43] LABS: Urine Blood Negative (Negative); Urine Glucose Negative (Negative); Urine Protein 1+ (Negative)
[2022-04-01 08:06] LABS: Urine Blood Trace-intact (Negative); Urine Glucose Trace (Negative); Urine Protein 1+ (Negative); Urine Specific Gravity >=1.030 (1.005-1.030); Urine pH 5.5 (5.0-7.0)
[2022-04-01 08:07] LABS: Absolute Lymphocytes (CBC) 1.9 K/uL (0.7-4.9); Hematocrit 36.5 % (36.0-45.0); Lymphocytes % 17.6 % (15.3-44.8); MPV 7.1 fL (7.6-11.3); RBC Red Blood Cell Count 4.18 M/uL (3.86-4.86)
[2022-04-01] MEDS ORDERED: FAMOTIDINE 20 MG/2 ML VIAL IV ONE (08:12)
[2022-04-01] MEDS ORDERED: ONDANSETRON 4 MG/2 ML VIAL ONE (08:12)
[2022-04-01] MEDS ORDERED: NA CHLORIDE 0.9% 1,000 ML ONE (08:12)
[2022-04-01 08:27] LABS: ALT/SGPT < 10 U/L (12-78); AST/SGOT 8 U/L (15-37); Albumin 3.1 g/dL (3.4-5.0); Alkaline Phosphatase 73 U/L (45-117); BUN Blood Urea Nitrogen 11 mg/dL (7-18); Bicarbonate 24 mmol/L (21-32); Bilirubin Total 0.2 mg/dL (0.2-1.0); Glucose Level 246 mg/dL (74-106); Lipase 196 U/L (73-393); Potassium 4.1 mmol/L (3.5-5.1); Protein, Total 7.5 g/dL (6.4-8.2); Sodium Level 137 mmol/L (136-145)
[2022-04-01] MEDS ORDERED: FENTANYL CITR 100 MCG/2 ML ONE (08:43)
--- NOTE | 2022-04-01 09:04 | RAD REPORT ---
EXAM DESCRIPTION: CTAbdomen Pelvis W Contrast - 04/01/2022 8:52 am CLINICAL HISTORY: Abdominal pain, acute, nonlocalized COMPARISON: Abdomen Pelvis W Contrast dated 01/22/2022; Abdomen Pelvis W Contrast dated 10/02/2021; Abdomen Pelvis W Contrast dated 09/18/2021; Abdomen Pelvis W Contrast dated 08/31/2021; Abdomen Pelvis W Contrast dated 07/27/2019 TECHNIQUE: CT of the abdomen and pelvis was performed. All CT scans are performed using dose optimization technique as appropriate and may include automated exposure control or mA/KV adjustment according to patient size. FINDINGS: Lower chest: No acute abnormality. Liver: No acute abnormality or suspicious lesions. Biliary: No biliary ductal dilatation. Stomach: No significant focal abnormality. Duodenum: No significant focal abnormality. Pancreas: No significant abnormality. Spleen: No significant abnormality. Adrenal: No suspicious lesions. Kidney/ureter: No hydronephrosis. No renal calculi. Patchy areas of hypoenhancement and cortical thin rocco in the kidneys bilaterally. Vascular: No aneurysm. Bowel: No significant focal abnormality. Normal appendix. Peritoneum: No ascites or free air. Bladder: Grossly unremarkable. Reproductive: No adnexal masses. Bones: No acute fracture. Other: n/a IMPRESSION: Patchy areas of hypoenhancement in the kidneys bilaterally with associated renal cortica l thinning may be sequela of either acute or prior pyelonephritis. Recommend correlation with urinaly sis. No other acute findings are identified.
--- NOTE | 2022-04-01 09:13 | EDPHYS ---
Physician Documentation [facility] Name: Ara Mercado Age: 36 yrs Sex: Female : 1985 Arrival Date: 04/01/2022 Time: 04:41 Bed 18 Private MD: ZACHARY Physician Rashad Melgoza HPI: 04/01 08:21 This 36 yrs old Female presents to ER via Ambulatory with complaints of Low bobbi Back Pain, Nausea/Vomiting. 08:21 The patient presents with pain that is acute, and decreased range of motion. 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 - Social history:: Smoking status: Patient reports the use of cigarette tobacco products. ROS: 08:22 Constitutional: Negative for fever, chills, and weight loss, Eyes: Negative for injury, bobbi pain, redness, and discharge, ENT: Negative for injury, pain, and discharge, Neck: Negative for injury, pain, and swelling, Cardiovascular: Negative for chest pain, palpitations, and edema, Respiratory: Negative for shortness of breath, cough, wheezing, and pleuritic chest pain, Back: Negative for injury and pain, : Negative for injury, bleeding, discharge, and swelling, MS/Extremity: Negative for injury and deformity, Skin: Negative for injury, rash, and discoloration, Neuro: Negative for headache, weakness, numbness, tingling, and seizure, Psych: Negative for depression, anxiety, suicide ideation, homicidal ideation, and hallucinations, Allergy/Immunology: Negative for hives, rash, and allergies, Endocrine: Negative for neck swelling, polydipsia, polyuria, polyphagia, and marked weight changes, Hematologic/Lymphatic: Negative for swollen nodes, abnormal bleeding, and unusual bruising. 08:22 Abdomen/GI: Positive for abdominal pain, nausea and vomiting, abdominal cramps, of the right lower quadrant and left lower quadrant. Exam: 08:22 Constitutional: This is a well developed, well nourished patient who is awake, alert, bobbi and in no acute distress. Head/Face: Normocephalic, atraumatic. Eyes: Pupils equal round and reactive to light, extra-ocular motions intact. Lids and lashes normal. Conjunctiva and sclera are non-icteric and not injected. Cornea within normal limits. Periorbital areas with no swelling, redness, or edema. ENT: Nares patent. No nasal discharge, no septal abnormalities noted. Tympanic membranes are normal and external auditory canals are clear. Oropharynx with no redness, swelling, or masses, exudates, or evidence of obstruction, uvula midline. Mucous membranes moist. Neck: Trachea midline, no thyromegaly or masses palpated, and no cervical lymphadenopathy. Supple, full range of motion without nuchal rigidity, or vertebral point tenderness. No Meningismus. Chest/axilla: Normal chest wall appearance and motion. Nontender with no deformity. No lesions are appreciated. Cardiovascular: Regular rate and rhythm with a normal S1 and S2. No gallops, murmurs, or rubs. Normal PMI, no JVD. No pulse deficits. Respiratory: Lungs have equal breath sounds bilaterally, clear to auscultation and percussion. No rales, rhonchi or wheezes noted. No increased work of breathing, no retractions or nasal flaring. Back: No spinal tenderness. No costovertebral tenderness. Full range of motion. Skin: Warm, dry with normal turgor. Normal color with no rashes, no lesions, and no evidence of cellulitis. MS/ Extremity: Pulses equal, no cyanosis. Neurovascular intact. Full, normal range of motion. Neuro: Awake and alert, GCS 15, oriented to person, place, time, and situation. Cranial nerves II-XII grossly intact. Motor strength 5/5 in all extremities. Sensory grossly intact. Cerebellar exam normal. Normal gait. Psych: Awake, alert, with orientation to person, place and time. Behavior, mood, and affect are within normal limits. 08:22 Abdomen/GI: Inspection: abdomen appears normal, Bowel sounds: normal, Palpation: mild abdominal tenderness, in the right lower quadrant and left lower quadrant, Liver: no appreciated palpable abnormalities, Hernia: not appreciated. Vital Signs: 04:51 BP 108 / 60; Pulse 91; Resp 16 S; Temp 98(TE); Pulse Ox 100% on R/A; Weight 74.84 kg bb (R); Height 5 ft. 2 in. (157.48 cm) (R); Pain 8/10; 04:51 Body Mass Index 30.18 (74.84 kg, 157.48 cm) bb MDM: 07:10 Patient medically screened. [facility] 08:23 Differential diagnosis: Herniated disc UTI, Nonspecific abd pain, pancreatitis, viral bobbi gastroenteritis, gastroenteritis. Data reviewed: vital signs, nurses notes, lab test result(s). 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 Counseling: I had a detailed discussion with the patient and/or guardian regarding: the historical points, exam findings, and any diagnostic results supporting the discharge/admit diagnosis, lab results. 04/01 05:43 Order name: Urine Dipstick-Ancillary; Complete Time: 07:11 EDCT 04/01 05:45 Order name: Urine --Ancillary (enter results) mw2 04/01 07:16 Order name: CBC with Diff; Complete Time: 08:21 [facility] 04/01 07:16 Order name: CMP; Complete Time: 09:09 [facility] 04/01 07:16 Order name: Lipase; Complete Time: 09:09 [facility] 04/01 08:06 Order name: Urine Dipstick-Ancillary; Complete Time: 08:21 EDCT 04/01 07:16 Order name: CT Abd/Pelvis - IV Contrast Only; Complete Time: 09:09 [facility] 04/01 07:16 Order name: IV Saline Lock; Complete Time: 08:14 [facility] 04/01 07:16 Order name: Labs collected and sent; Complete Time: 08:14 [facility] 04/01 07:16 Order name: Urine Dipstick-Ancillary (obtain specimen); Complete Time: 08:14 [facility] 04/01 07:16 Order name: Urine Test (obtain specimen); Complete Time: 08:14 [facility] Administered Medications: 08:13 Drug: NS 0.9% 1000 ml Route: IV; Rate: 1 bolus; Site: right forearm; chapman 08:13 Drug: Pepcid (famotidine) 20 mg Route: IVP; Site: right forearm; chapman 08:14 Follow up: Response: No adverse reaction chapman 08:14 Drug: Zofran (Ondansetron) 4 mg Route: IVP; Site: left forearm; chapman 08:14 Follow up: Response: No adverse reaction chapman 08:34 Drug: fentaNYL (PF) 50 mcg Route: IVP; Site: right forearm; chapman 08:48 Follow up: Response: No adverse reaction chapman 10:02 Drug: LevOfloxacin 500 mg Route: PO; chapman 10:03 Follow up: Response: No adverse reaction chapman 10:03 Drug: Rocephin (cefTRIAXone) 1 grams Route: IV; Rate: per protocol; Site: right forearm;chapman 10:03 Follow up: IV Status: Completed infusion chapman Disposition Summary: 04/01/22 09:12 Discharge Ordered Location: Home bobbi Problem: new bobbi Symptoms: have improved bobbi Condition: Stable bobbi Diagnosis - Abdominal pain, Generalized bobbi - Nausea with vomiting, unspecified bobbi - Type 2 diabetes mellitus with hyperglycemia bobbi - Obesity, unspecified bobbi - Pyelonephritis acute - acute/ chronic bobbi Followup: bobbi - With: Private Physician - When: 2 - 3 days - Reason: Recheck today's complaints, Continuance of care, Re-evaluation by your physician Followup: bobbi - With: Warner Bingham MD - When: 2 - 3 days - Reason: Recheck today's complaints, Re-evaluation by your physician Discharge Instructions: - Discharge Summary Sheet bobbi - Abdominal Pain, Adult bobbi - Type 2 Diabetes Mellitus, Diagnosis, Adult bobbi - Hyperglycemia bobbi - Nausea and Vomiting, Adult bobbi - Nausea, Adult bobbi - Obesity, Adult bobbi - Abdominal Pain, Adult, [id number] bobbi - Pyelonephritis, Adult bobbi - Pyelonephritis, Adult, [id number] bobbi Forms: - Medication Reconciliation Form bobbi - Thank You Letter bobbi - Antibiotic Education [facility] - Prescription Opioid Use [facility] Prescriptions: - Pepcid 20 mg Oral Tablet - take 1 tablet by ORAL route every 12 hours for 15 days; 30 tablet; Refills: 0, [facility] Product Selection Permitted - Zofran 4 mg Oral Tablet - take 1 tablet by ORAL route every 12 hours As needed; 20 tablet; Refills: 0, [facility] Product Selection Permitted - dicyclomine 20 mg Oral Tablet - take 1 tablet by ORAL route 4 times per day; 28 tablet; Refills: 0, Product [facility] Selection Permitted - levofloxacin 500 mg Oral Tablet - take 1 tablet by ORAL route once daily for 7 days; 7 tablet; Refills: 0, bobbi Product Selection Permitted Signatures: Dispatcher [employer] Rashad Graham MD MD cha Ballard, Brenda, RN RN bb Au-Stager, Heather, RN RN ha Corrections: (The following items were deleted from the chart) 04:56 04:54 PSHx: Cholecystectomy; 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
--- NOTE | 2022-04-01 09:13 | ER ---
Nurse's Notes [facility] Name: Ara Mercado Age: 36 yrs Sex: Female : 1985 Arrival Date: 04/01/2022 Time: 04:41 Bed 18 Private MD: Diagnosis: Abdominal pain, Generalized;Nausea with vomiting, unspecified;Type 2 diabetes mellitus with hyperglycemia;Obesity, unspecified;Pyelonephritis acute-acute/ chronic Presentation: 04/01 04:51 Chief complaint: Patient states: she has had low back pain x 2 days with nausea and bb vomiting 2 or 3 times a day, also has lower abdominal pain thinks she had fever yesterday. Coronavirus screen: At this time, the client does not indicate any symptoms associated with coronavirus-19. Ebola Screen: No symptoms or risks identified at this time. Initial Sepsis Screen: Does the patient meet any 2 criteria? No. Patient's initial sepsis screen is negative. Does the patient have a suspected source of infection? No. Patient's initial sepsis screen is negative. Risk Assessment: Do you want to hurt yourself or someone else? Patient reports no desire to harm self or others. Onset of symptoms was March 30, 2022. 04:51 Method Of Arrival: Ambulatory 04:51 Acuity: CHARISSA 3 bb Triage Assessment: 04:54 General: Appears in no apparent distress. uncomfortable. Pain: Complains of pain in bb back and abdomen Pain currently is 8 out of 10 on a pain scale. Neuro: Level of Consciousness is awake, alert, obeys commands, Oriented to person, place, time, situation. Cardiovascular: Capillary refill < 3 seconds Patient's skin is warm and dry. Respiratory: Respiratory effort is unlabored, Respiratory pattern is regular. GI: Reports lower abdominal pain, nausea, vomiting. Derm: Skin is pink, warm \T\ dry. Musculoskeletal: Circulation, motion, and sensation intact. 06:34 General: Appears uncomfortable, Behavior is calm, cooperative. 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 - Social history:: Smoking status: Patient reports the use of cigarette tobacco products. Screenin:33 Abuse screen: Denies threats or abuse. Denies injuries from another. Nutritional kd3 screening: No deficits noted. Tuberculosis screening: No symptoms or risk factors identified. Fall Risk None identified. Assessment: 06:49 General: Appears uncomfortable, Behavior is calm, cooperative. Pain: Complains of pain kd3 in abdomen and back. Neuro: Level of Consciousness is awake, alert, obeys commands, Oriented to person, place, time, situation. Cardiovascular: Patient's skin is warm and dry. Respiratory: Airway is patent Trachea midline Respiratory effort is even, unlabored, Respiratory pattern is regular, symmetrical. GI: Abdomen is flat, non-distended, Bowel sounds present X 4 quads. : No signs and/or symptoms were reported regarding the genitourinary system. EENT: No signs and/or symptoms were reported regarding the EENT system. Vital Signs: 04:51 BP 108 / 60; Pulse 91; Resp 16 S; Temp 98(TE); Pulse Ox 100% on R/A; Weight 74.84 kg bb (R); Height 5 ft. 2 in. (157.48 cm) (R); Pain 8/10; 04:51 Body Mass Index 30.18 (74.84 kg, 157.48 cm) ED Course: 04:41 Patient arrived in ED. kz 04:54 Triage completed. bb 04:54 Arm band placed on Patient placed in waiting room, Patient notified of wait time. bb 06:31 Jamilah Forde, RN is Primary Nurse. kd3 06:34 Patient has correct armband on for positive identification. kd3 06:41 Papito Castro MD is Attending Physician. mh7 07:10 Rashad Melgoza MD is Attending Physician. bobbi 07:43 Primary Nurse role handed off by Jamilah Forde, RN bd 07:44 Idalmis Jensen RN is Primary Nurse. chapman 08:54 CT Abd/Pelvis - IV Contrast Only In Process Unspecified. EDMS 09:12 Warner Bingham MD is Referral Physician. bobbi 10:03 No provider procedures requiring assistance completed. Inserted saline lock: 22 gauge chapman in right forearm, using aseptic technique. IV discontinued, intact, Pressure dressing applied. Administered Medications: 08:13 Drug: NS 0.9% 1000 ml Route: IV; Rate: 1 bolus; Site: right forearm; chapman 08:13 Drug: Pepcid (famotidine) 20 mg Route: IVP; Site: right forearm; chapman 08:14 Follow up: Response: No adverse reaction chapman 08:14 Drug: Zofran (Ondansetron) 4 mg Route: IVP; Site: left forearm; chapman 08:14 Follow up: Response: No adverse reaction chapman 08:34 Drug: fentaNYL (PF) 50 mcg Route: IVP; Site: right forearm; chapman 08:48 Follow up: Response: No adverse reaction chapman 10:02 Drug: LevOfloxacin 500 mg Route: PO; chapman 10:03 Follow up: Response: No adverse reaction chapman 10:03 Drug: Rocephin (cefTRIAXone) 1 grams Route: IV; Rate: per protocol; Site: right forearm;chapman 10:03 Follow up: IV Status: Completed infusion chapman Outcome: 09:12 Discharge ordered by . bobbi 10:03 Discharged to home chapman 10:03 Condition: good 10:03 Discharge instructions given to patient, Prescriptions given X 4. 10:04 Patient left the ED. chapman Signatures: Dispatcher [employer] EDMS Lynn Egan Corey, MD MD cha Ballard, Brenda RN RN Papito Roach MD MD mh7 Doucette, Kyli, RN RN kd3 Idalmis Jensen RN RN ha Zapata, Kelly kz Corrections: (The following items were deleted from the chart) 04:56 04:54 PSHx: Cholecystectomy; 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
[2022-04-01] MEDS ORDERED: CEFTRIAXONE 1000 MG/VIAL ONE ×2 (09:44)
[2022-04-01] MEDS ORDERED: IBUPROFEN 200 MG TAB PO ONE (09:44)
[2022-04-01] MEDS ORDERED: levoFLOXacin 500 MG TAB ONE (09:46)
[2022-04-01 10:25] VITALS: BP 108/60; TEMP 98; O2SAT 100
== END 2022-04-01 10:04 | disposition home or self-care (01) ==
LOC: ER 04:38
DX: E11.65 Type 2 diabetes mellitus with hyperglycemia (principal); N10 Acute pyelonephritis; R10.84 Generalized abdominal pain; E66.9 Obesity, unspecified; Z88.1 Allergy status to other antibiotic agents; Z88.5 Allergy status to narcotic agent; Z88.8 Allergy status to other drugs, medicaments and biological substances
CPT/HCPCS: 36415; 74177; 80053; 81003; 81025; 83690; 85025; 99284; J2405; J3010; J3490; J7030; Q9967

== ENCOUNTER 2022-04-14 02:36 | Emergency (ER) | payer SELFPAY ==
--- NOTE | 2022-04-14 03:19 | ER ---
Nurse's Notes [facility] Name: Ara Mercado Age: 37 yrs Sex: Female : 1985 Arrival Date: 04/14/2022 Time: 02:38 Bed 5 Private MD: Diagnosis: Dental caries, unspecified;Dysuria Presentation: 04/14 02:49 Chief complaint: Patient states: I have had right sided mouth pain since Friday. it is kd3 keeping me awake at night and I think I might have an abscess or an infection. I have had back pain that started on Friday. i might have a kidney infection or something. Coronavirus screen: Vaccine status: Patient reports receiving the 2nd dose of the covid vaccine. Ebola Screen: No symptoms or risks identified at this time. Initial Sepsis Screen: Does the patient meet any 2 criteria? No. Patient's initial sepsis screen is negative. Does the patient have a suspected source of infection? No. Patient's initial sepsis screen is negative. Risk Assessment: Do you want to hurt yourself or someone else? Patient reports no desire to harm self or others. Onset of symptoms was April 12, 2022. 02:49 Method Of Arrival: Ambulatory kd3 02:49 Acuity: CHARISSA 3 kd3 Triage Assessment: 02:52 General: Appears in no apparent distress. Behavior is calm, cooperative. Pain: kd3 Complains of pain in right side of mouth and lower back. Neuro: Level of Consciousness is awake, alert, obeys commands, Oriented to person, place, time, situation. Cardiovascular: Patient's skin is warm and dry. Respiratory: Airway is patent Trachea midline Respiratory effort is even, unlabored, Respiratory pattern is regular, symmetrical. 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 - Social history:: Smoking status: Patient reports the use of cigarette tobacco products, smokes one-half pack cigarettes per day. - Family history:: not pertinent. Screenin:51 Abuse screen: Denies threats or abuse. Denies injuries from another. Nutritional kd3 screening: No deficits noted. Tuberculosis screening: No symptoms or risk factors identified. Fall Risk None identified. Assessment: 02:59 Reassessment: see triage. Neuro: Level of Consciousness is awake, alert, obeys kd3 commands, Oriented to person, place, time, situation. Cardiovascular: Patient's skin is warm and dry. Respiratory: Airway is patent Trachea midline Respiratory effort is even, unlabored, Respiratory pattern is regular, symmetrical. Vital Signs: 02:58 BP 136 / 80; Pulse 92; Resp 17; Temp 98.9(O); Pulse Ox 100% on R/A; Weight 73.94 kg; kd3 Height 5 ft. 2 in. (157.48 cm); Pain 9/10; 02:58 Body Mass Index 29.81 (73.94 kg, 157.48 cm) kd3 ED Course: 02:38 Patient arrived in ED. kz 02:39 Rashad Melgoza MD is Attending Physician. bobbi 02:48 Jamilah Forde RN is Primary Nurse. kd3 02:50 Triage completed. kd3 02:51 Patient has correct armband on for positive identification. kd3 02:51 No provider procedures requiring assistance completed. kd3 02:53 Arm band placed on. kd3 03:35 Urine Culture Sent. kd3 03:36 Patient did not have IV access during this emergency room visit. kd3 Administered Medications: 03:26 Drug: [place] (HYDROcodone-acetaminophen) 10 mg-325 mg 1 tabs Route: PO; ke1 03:36 Follow up: Response: No adverse reaction kd3 03:26 Drug: LevOfloxacin 750 mg Route: PO; ke1 03:36 Follow up: Response: No adverse reaction kd3 Medication: 03:07 VIS not applicable for this client. kd3 Outcome: 03:18 Discharge ordered by . bobbi 03:35 Discharged to home ambulatory. kd3 03:35 Condition: stable 03:35 Discharge instructions given to patient, Instructed on discharge instructions, Demonstrated understanding of instructions, follow-up care, medications, Prescriptions given X 2. 03:54 Patient left the ED. ke1 Signatures: Rashad Melgoza MD MD cha Doucette, Kyli RN RN kd3 Yulisa See RN RN ke1 Erica Shane
--- NOTE | 2022-04-14 03:19 | EDPHYS ---
Physician Documentation [facility] Name: Ara Mercado Age: 37 yrs Sex: Female : 1985 Arrival Date: 04/14/2022 Time: 02:38 Bed 5 Private MD: ED Physician Rashad Melgoza HPI: 04/14 03:14 This 37 yrs old Female presents to ER via Ambulatory with complaints of Mouth bobbi Problem. 03:14 The patient presents with broken tooth/teeth, pain, redness, swelling. The problem is bobbi located in the lower right first bicuspid and lower right second bicuspid. Onset: The symptoms/episode began/occurred 3 day(s) ago. Duration: The symptoms are continuous, and are steadily getting worse. Modifying factors: The symptoms are alleviated by nothing, the symptoms are aggravated by chewing, food, talking. Associated signs and symptoms: The patient has no apparent associated signs or symptoms. Severity of symptoms: At their worst the symptoms were mild, moderate, in the emergency department the symptoms are unchanged. The patient has experienced similar episodes in the past, several times. 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 - Social history:: Smoking status: Patient reports the use of cigarette tobacco products, smokes one-half pack cigarettes per day. - Family history:: not pertinent. ROS: 03:14 Constitutional: Negative for fever, chills, and weight loss, Eyes: Negative for injury, bobbi pain, redness, and discharge, Neck: Negative for injury, pain, and swelling, Cardiovascular: Negative for chest pain, palpitations, and edema, Respiratory: Negative for shortness of breath, cough, wheezing, and pleuritic chest pain, Abdomen/GI: Negative for abdominal pain, nausea, vomiting, diarrhea, and constipation, Back: Negative for injury and pain, : Negative for injury, bleeding, discharge, and swelling, MS/Extremity: Negative for injury and deformity, Skin: Negative for injury, rash, and discoloration, Neuro: Negative for headache, weakness, numbness, tingling, and seizure, Psych: Negative for depression, anxiety, suicide ideation, homicidal ideation, and hallucinations, Allergy/Immunology: Negative for hives, rash, and allergies, Endocrine: Negative for neck swelling, polydipsia, polyuria, polyphagia, and marked weight changes, Hematologic/Lymphatic: Negative for swollen nodes, abnormal bleeding, and unusual bruising. 03:14 ENT: Positive for Gum pain Exam: 03:14 Constitutional: This is a well developed, well nourished patient who is awake, alert, bobbi and in no acute distress. Head/Face: Normocephalic, atraumatic. Eyes: Pupils equal round and reactive to light, extra-ocular motions intact. Lids and lashes normal. Conjunctiva and sclera are non-icteric and not injected. Cornea within normal limits. Periorbital areas with no swelling, redness, or edema. Neck: Trachea midline, no thyromegaly or masses palpated, and no cervical lymphadenopathy. Supple, full range of motion without nuchal rigidity, or vertebral point tenderness. No Meningismus. Chest/axilla: Normal chest wall appearance and motion. Nontender with no deformity. No lesions are appreciated. Cardiovascular: Regular rate and rhythm with a normal S1 and S2. No gallops, murmurs, or rubs. Normal PMI, no JVD. No pulse deficits. Respiratory: Lungs have equal breath sounds bilaterally, clear to auscultation and percussion. No rales, rhonchi or wheezes noted. No increased work of breathing, no retractions or nasal flaring. Abdomen/GI: Soft, non-tender, with normal bowel sounds. No distension or tympany. No guarding or rebound. No evidence of tenderness throughout. Back: No spinal tenderness. No costovertebral tenderness. Full range of motion. Skin: Warm, dry with normal turgor. Normal color with no rashes, no lesions, and no evidence of cellulitis. MS/ Extremity: Pulses equal, no cyanosis. Neurovascular intact. Full, normal range of motion. Neuro: Awake and alert, GCS 15, oriented to person, place, time, and situation. Cranial nerves II-XII grossly intact. Motor strength 5/5 in all extremities. Sensory grossly intact. Cerebellar exam normal. Normal gait. Psych: Awake, alert, with orientation to person, place and time. Behavior, mood, and affect are within normal limits. 03:14 ENT: Mouth: Gums: noted to have cellulitis, reddened, swollen, on the lower right first bicuspid and lower right second bicuspid. Vital Signs: 02:58 BP 136 / 80; Pulse 92; Resp 17; Temp 98.9(O); Pulse Ox 100% on R/A; Weight 73.94 kg; kd3 Height 5 ft. 2 in. (157.48 cm); Pain 9/10; 02:58 Body Mass Index 29.81 (73.94 kg, 157.48 cm) kd3 MDM: 03:04 Patient medically screened. [facility] 03:17 Differential diagnosis: dental caries, dental abscess. Data reviewed: vital signs, [facility] nurses notes, lab test result(s), urinalysis. Data interpreted: compliance monitor: not applicable for this patient encounter. rate is 92 beats/min, rhythm is regular, Pulse oximetry: on room air is 100 %. Counseling: I had a detailed discussion with the patient and/or guardian regarding: the historical points, exam findings, and any diagnostic results supporting the discharge/admit diagnosis, lab results, radiology results, the need for outpatient follow up, for definitive care, a dentist, an oral maxilofacial specialist. 04/14 03:14 Order name: Urine Culture [facility] 04/14 03:34 Order name: Urine Dipstick-Ancillary EDNE 04/14 03:14 Order name: Urine Dipstick-Ancillary (obtain specimen); Complete Time: 03:35 [facility] 04/14 03:39 Order name: Urine --Ancillary (enter results) 04/14 03:14 Order name: Urine Test (obtain specimen); Complete Time: 03:35 [facility] Administered Medications: 03:26 Drug: [place] (HYDROcodone-acetaminophen) 10 mg-325 mg 1 tabs Route: PO; ke1 03:36 Follow up: Response: No adverse reaction kd3 03:26 Drug: LevOfloxacin 750 mg Route: PO; ke1 03:36 Follow up: Response: No adverse reaction kd3 Disposition Summary: 04/14/22 03:18 Discharge Ordered Location: Home bobbi Problem: new bobbi Symptoms: have improved bobbi Condition: Stable bobbi Diagnosis - Dental caries, unspecified bobbi - Dysuria bobbi Followup: bobbi - With: Private Physician - When: 2 - 3 days - Reason: Recheck today's complaints, Continuance of care, Re-evaluation by your physician Discharge Instructions: - Discharge Summary Sheet bobbi - Dental Caries, Adult bobbi - Dental Pain bobbi - Dysuria bobbi Forms: - Medication Reconciliation Form bobbi - Thank You Letter bobbi - Antibiotic Education bobbi - Prescription Opioid Use [facility] Prescriptions: - levofloxacin 500 mg Oral Tablet - take 1 tablet by ORAL route once daily for 7 days; 7 tablet; Refills: 0, bobbi Product Selection Permitted - Tylenol-Codeine #3 300 mg-30 mg Oral - take 2 tablet by ORAL route every 6 hours; 2 tablet; Refills: 0, Product bobbi Selection Permitted Signatures: Dispatcher [employer] Rashad Graham MD MD cha Doucette, Kyli RN RN kd3 Yulisa See RN RN ke1
[2022-04-14] MEDS ORDERED: levoFLOXacin 750 MG TAB ONE (03:22)
[2022-04-14] MEDS ORDERED: HYDROCODONE/APAP 10/325 TAB ONE (03:23)
[2022-04-14 03:34] LABS: Urine Blood Trace-intact (Negative); Urine Glucose Trace (Negative); Urine Protein 1+ (Negative); Urine pH 5.5 (5.0-7.0)
[2022-04-14 04:01] VITALS: BP 136/80; TEMP 98.9; O2SAT 100
== END 2022-04-14 03:54 | disposition home or self-care (01) ==
LOC: ER 02:36
DX: K02.9 Dental caries, unspecified (principal); R30.0 Dysuria; Z88.1 Allergy status to other antibiotic agents; Z88.6 Allergy status to analgesic agent; E11.9 Type 2 diabetes mellitus without complications; F17.210 Nicotine dependence, cigarettes, uncomplicated
CPT/HCPCS: 81003; 81025; 87086; 87088; 99283

== ENCOUNTER 2022-04-14 06:55 | Emergency (ER) | payer SELFPAY ==
[2022-04-14] MEDS ORDERED: DIPHENHYDRAMINE 50 MG/ML VIAL ONE (08:00)
[2022-04-14] MEDS ORDERED: HYDROCODONE/APAP 7.5/325 MG TAB ONE (08:27)
--- NOTE | 2022-04-14 08:42 | EDPHYS ---
Physician Documentation [facility] Name: Ara Mercado Age: 37 yrs Sex: Female : 1985 Arrival Date: 04/14/2022 Time: 06:58 Bed 16 Private MD: ED Physician Ana Faust HPI: 04/14 07:44 This 37 yrs old Female presents to ER via Ambulatory with complaints of Allergic ma2 Reaction, . 07:44 Onset: The symptoms/episode began/occurred gradually, 1 day(s) ago. Associated signs ma2 and symptoms: Pertinent negatives: chest pain, headache, Light headed nausea. Severity of symptoms: At their worst the symptoms were mild in the emergency department the symptoms are unchanged. The patient has not experienced similar symptoms in the past. here with itching all over. 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 - Social history:: Smoking status: Patient reports the use of cigarette tobacco products, smokes one-half pack cigarettes per day. ROS: 07:44 Constitutional: Negative for fever, chills, and weight loss. ma2 07:44 All other systems are negative. Exam: 07:44 Constitutional: This is a well developed, well nourished patient who is awake, alert, ma2 and in no acute distress. Head/Face: Normocephalic, atraumatic. Eyes: Pupils equal round and reactive to light, extra-ocular motions intact. Lids and lashes normal. Conjunctiva and sclera are non-icteric and not injected. Cornea within normal limits. Periorbital areas with no swelling, redness, or edema. ENT: Nares patent. No nasal discharge, no septal abnormalities noted. Tympanic membranes are normal and external auditory canals are clear. Oropharynx with no redness, swelling, or masses, exudates, or evidence of obstruction, uvula midline. Mucous membranes moist. Neck: Trachea midline, no thyromegaly or masses palpated, and no cervical lymphadenopathy. Supple, full range of motion without nuchal rigidity, or vertebral point tenderness. No Meningismus. Chest/axilla: Normal chest wall appearance and motion. Nontender with no deformity. No lesions are appreciated. Cardiovascular: Regular rate and rhythm with a normal S1 and S2. No gallops, murmurs, or rubs. Normal PMI, no JVD. No pulse deficits. Respiratory: Lungs have equal breath sounds bilaterally, clear to auscultation and percussion. No rales, rhonchi or wheezes noted. No increased work of breathing, no retractions or nasal flaring. Abdomen/GI: Soft, non-tender, with normal bowel sounds. No distension or tympany. No guarding or rebound. No evidence of tenderness throughout. Skin: Warm, dry with normal turgor. Normal color with no rashes, no lesions, and no evidence of cellulitis. MS/ Extremity: Pulses equal, no cyanosis. Neurovascular intact. Full, normal range of motion. Neuro: Awake and alert, GCS 15, oriented to person, place, time, and situation. Cranial nerves II-XII grossly intact. Motor strength 5/5 in all extremities. Sensory grossly intact. Cerebellar exam normal. Normal gait. Vital Signs: 07:10 BP 133 / 90; Pulse 97; Resp 20; Temp 98.2(O); Pulse Ox 100% on R/A; Weight 73.94 kg; vg1 Height 5 ft. 2 in. (157.48 cm); Pain 8/10; 08:27 BP 151 / 93; Pulse 92; Resp 14; Pulse Ox 99% on R/A; ph 09:14 BP 139 / 87; Pulse 81; Resp 18; Temp 97.8; Pulse Ox 100% on R/A; ph 07:10 Body Mass Index 29.81 (73.94 kg, 157.48 cm) vg1 MDM: 07:04 Patient medically screened. ma2 07:44 Differential diagnosis: Mastocystosis non IgE mediated drug reaction urticaria, ma2 Vasovagal Reactions. Data reviewed: vital signs, nurses notes. Counseling: I had a detailed discussion with the patient and/or guardian regarding: the historical points, exam findings, and any diagnostic results supporting the discharge/admit diagnosis, the presence of at least one elevated blood pressure reading (>120/80) during this emergency department visit, the need for outpatient follow up. Response to treatment: the patient's symptoms have markedly improved after treatment. 04/14 08:11 Order name: Glucose, Ancillary Testing EDMS Administered Medications: 08:00 Drug: Benadryl (diphenhydrAMINE) 50 mg Route: IM; Site: left deltoid; ph 09:13 Follow up: Response: No adverse reaction; RASS: Drowsy (-1) ph 08:33 CANCELLED (Other Intervention Used): [place] (HYDROcodone-acetaminophen) (7.5 mg-325 mg) ph 2 tabs PO once 08:33 Drug: [place] (HYDROcodone-acetaminophen) (7.5 mg-325 mg) 1 tabs Route: PO; ph 09:13 Follow up: Response: No adverse reaction; RASS: Drowsy (-1) ph Disposition Summary: 04/14/22 08:41 Discharge Ordered Location: Home ma2 Condition: Stable ma2 Diagnosis - Allergic urticaria ma2 Followup: ma2 - With: Private Physician - When: Tomorrow - Reason: If symptoms return, Continuance of care Discharge Instructions: - Discharge Summary Sheet [email or web address] - Mirlande ma2 Forms: - Medication Reconciliation Form ma2 - Thank You Letter ma2 - Antibiotic Education ma2 - Prescription Opioid Use ma2 Prescriptions: - Benadryl 25 mg Oral Capsule - take 1 capsule by ORAL route every 6 hours As needed; 30 tablet; Refills: 0, ma2 Product Selection Permitted - Clindamycin HCl 300 mg Oral Capsule - take 1 capsule by ORAL route every 6 hours for 10 days; 40 capsule; Refills: 0, ma2 Product Selection Permitted Signatures: Dispatcher [employer] Malini Walls RN RN ph Ana Faust MD MD ma2 Bess Santiago RN RN vg1 Corrections: (The following items were deleted from the chart) 08:33 08:03 [place] (HYDROcodone-acetaminophen) (7.5 mg-325 mg) 2 tabs PO once ordered. ma2 ph 08:33 08:32 [place] (HYDROcodone-acetaminophen) (7.5 mg-325 mg) 2 tabs PO once given. ph ph 08:33 08:32 [place] (HYDROcodone-acetaminophen) (7.5 mg-325 mg) 2 tabs PO once ordered. ph ph
--- NOTE | 2022-04-14 08:42 | ER ---
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 Coronavirus screen: Vaccine status: Patient reports receiving the 2nd dose of the covid vaccine. Client denies travel out of the [place] in the last 14 days. Ebola Screen: Patient denies exposure to infectious person. Patient denies travel to an Ebola-affected area in the 21 days before illness onset. Onset: The symptoms/episode began/occurred just prior to arrival. Anaphylaxis evaluation, no signs or symptoms of anaphylaxis were noted. Initial Sepsis Screen: Does the patient meet any 2 criteria? No. Patient's initial sepsis screen is negative. Does the patient have a suspected source of infection? No. Patient's initial sepsis screen is negative. Risk Assessment: Do you want to hurt yourself or someone else? Patient reports no desire to harm self or others. Onset of symptoms was April 14, 2022. 07:10 Method Of Arrival: Ambulatory vg1 07:10 Acuity: CHARISSA 3 vg1 Triage Assessment: 07:13 General: Appears uncomfortable, Behavior is calm, cooperative. Pain: Complains of pain vg1 in chest Pain does not radiate. Pain currently is 8 out of 10 on a pain scale. Pain began gradually. EENT: Throat is clear. Neuro: Cantu Agitation-Sedation Scale (RASS): 0 - Alert and Calm Level of Consciousness is awake, alert, obeys commands, Oriented to person, place, time, situation. Cardiovascular: Patient's skin is warm and dry. Respiratory: Reports shortness of breath Airway is patent Respiratory effort is even, unlabored. GI: Abdomen is flat, Reports nausea, vomiting. : No signs and/or symptoms were reported regarding the genitourinary system. Derm: Skin is intact, is healthy with good turgor, Reports itching. Musculoskeletal: Circulation, motion, and sensation intact. 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 - Social history:: Smoking status: Patient reports the use of cigarette tobacco products, smokes one-half pack cigarettes per day. Screenin:26 Abuse screen: Denies threats or abuse. Denies injuries from another. Nutritional ph screening: No deficits noted. Tuberculosis screening: No symptoms or risk factors identified. Fall Risk None identified. Assessment: 08:29 General: Appears in no apparent distress. comfortable, Behavior is calm, cooperative, ph appropriate for age. Pain: Complains of pain in chest. Neuro: Level of Consciousness is awake, alert, obeys commands, Oriented to person, place, time, situation. Cardiovascular: Capillary refill < 3 seconds in bilateral fingers Patient's skin is warm and dry. Respiratory: Reports shortness of breath Airway is patent Respiratory effort is even, unlabored, Respiratory pattern is regular, symmetrical, Breath sounds are clear bilaterally. GI: No signs and/or symptoms were reported involving the gastrointestinal system. Derm: Skin is intact, is healthy with good turgor, Skin is pink, warm \\T\\ dry. Reports itching. Musculoskeletal: Circulation, motion, and sensation intact. Range of motion: intact in all extremities, Swelling absent. 09:12 Reassessment: Patient appears in no apparent distress at this time. Patient and/or ph family updated on plan of care and expected duration. Pain level reassessed. Patient is alert, oriented x 3, equal unlabored respirations, skin warm/dry/pink. Pt given new prescription for antibiotic, d/c home, states that she will follow up w/ dentist. Respiratory: Airway is patent Respiratory effort is even, unlabored, Respiratory pattern is regular, symmetrical. Vital Signs: 07:10 BP 133 / 90; Pulse 97; Resp 20; Temp 98.2(O); Pulse Ox 100% on R/A; Weight 73.94 kg; vg1 Height 5 ft. 2 in. (157.48 cm); Pain 8/10; 08:27 BP 151 / 93; Pulse 92; Resp 14; Pulse Ox 99% on R/A; ph 09:14 BP 139 / 87; Pulse 81; Resp 18; Temp 97.8; Pulse Ox 100% on R/A; ph 07:10 Body Mass Index 29.81 (73.94 kg, 157.48 cm) vg1 Vitals: 08:29 Cardiac Rhythm Assessment Sinus rhythm. ph ED Course: 06:58 Patient arrived in ED. kz 07:03 Rashad Melgoza MD is Attending Physician. bobbi 07:04 Attending Physician role handed off by Rashad Melgoza MD ma2 07:04 Ana Faust MD is Attending Physician. ma2 07:13 Triage completed. vg1 07:13 Arm band placed on. vg1 07:39 Malini Baca, RN is Primary Nurse. ph 08:26 Patient has correct armband on for positive identification. Bed in low position. Call ph light in reach. Side rails up X2. Client placed on continuous cardiac and pulse oximetry monitoring. NIBP monitoring applied. Door closed. Noise minimized. Warm blanket given. 08:27 No provider procedures requiring assistance completed. Patient did not have IV access ph during this emergency room visit. Administered Medications: 08:00 Drug: Benadryl (diphenhydrAMINE) 50 mg Route: IM; Site: left deltoid; ph 09:13 Follow up: Response: No adverse reaction; RASS: Drowsy (-1) ph 08:33 CANCELLED (Other Intervention Used): [place] (HYDROcodone-acetaminophen) (7.5 mg-325 mg) ph 2 tabs PO once 08:33 Drug: [place] (HYDROcodone-acetaminophen) (7.5 mg-325 mg) 1 tabs Route: PO; ph 09:13 Follow up: Response: No adverse reaction; RASS: Drowsy (-1) ph Medication: 08:26 VIS not applicable for this client. ph Outcome: 08:41 Discharge ordered by . ma2 09:13 Discharged to home ambulatory, with family. ph 09:13 Condition: good 09:13 Discharge instructions given to patient, Instructed on discharge instructions, follow up and referral plans. medication usage, Demonstrated understanding of instructions, follow-up care, medications, Prescriptions given X 2. 09:14 Patient left the ED. ph Signatures: Rashad Melgoza MD MD cha Hall, Patricia RN RN ph Ana Faust MD MD ma2 Bess Santiago RN RN vg1 Erica Shane Corrections: (The following items were deleted from the chart) 08:32 08:32 [place] (HYDROcodone-acetaminophen) (7.5 mg-325 mg) 2 tabs PO ph ph
[2022-04-14 09:32] VITALS: BP 139/87; TEMP 97.8; O2SAT 100
--- NOTE | 2022-04-15 11:26 | EKG ---
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
== END 2022-04-14 09:14 | disposition home or self-care (01) ==
LOC: ER 06:55
DX: L50.0 Allergic urticaria (principal); Z88.1 Allergy status to other antibiotic agents; Z88.6 Allergy status to analgesic agent; E11.9 Type 2 diabetes mellitus without complications; F17.210 Nicotine dependence, cigarettes, uncomplicated
CPT/HCPCS: 82947; 93005; 96372; 99283; J1200

== ENCOUNTER 2022-04-26 02:14 | Emergency (ER) | payer SELFPAY ==
[2022-04-26] MEDS ORDERED: HYDROCODONE/APAP 5/325 MG TAB ONE ×2 (02:44→02:49)
[2022-04-26] MEDS ORDERED: DIAZEPAM 5 MG TABLET ONE (02:44)
[2022-04-26 02:50] LABS: Urine Blood Trace-intact (Negative); Urine Glucose Negative (Negative); Urine Protein Negative (Negative); Urine pH 5.5 (5.0-7.0)
[2022-04-26 02:56] LABS: Urine Appearance Clear (Clear); Urine Bilirubin Negative (Negative); Urine Blood Trace-intact (Negative); Urine Color Yellow (Yellow); Urine Glucose Negative (Negative); Urine Protein Negative (Negative); Urine Specific Gravity 1.015 (1.005-1.030); Urine Urobilinogen 0.2 mg/dL (0.2-1.0); Urine pH 5.5 (5.0-7.0)
[2022-04-26 02:58] LABS: Urine Microscopic Reflex ORDER UMIC
[2022-04-26 03:07] LABS: Urine RBC <5 /HPF (NONE SEEN)
[2022-04-26 03:08] LABS: Urine Bacteria 20-50 /HPF (<20); Urine Mucus 1+ /HPF (NONE SEEN)
[2022-04-26] MEDS ORDERED: NA CHLORIDE 0.9% 50 ML ONE (05:17)
[2022-04-26] MEDS ORDERED: KETAMINE HCL 500 MG/5 ML VIAL ONE (05:17)
[2022-04-26] MEDS ORDERED: ONDANSETRON 4 MG/2 ML VIAL ONE (05:38)
--- NOTE | 2022-04-26 06:14 | ER ---
Nurse's Notes [facility] Name: Ara Mercado Age: 37 yrs Sex: Female : 1985 Arrival Date: 04/26/2022 Time: 02:18 Bed 6 Private MD: Diagnosis: Low back pain;Muscle spasm of back Presentation: 04/26 02:24 Chief complaint: Patient states: " I am having pain in my back. It has been going on tw5 for three days now. The last time I had pain that was similar to this was before I had my gallbladder removed.". Coronavirus screen: Vaccine status: Patient reports receiving the 2nd dose of the covid vaccine. [employer]. Ebola Screen: Patient negative for fever greater than or equal to 101.5 degrees Fahrenheit, and additional compatible Ebola Virus Disease symptoms Patient denies exposure to infectious person. Patient denies travel to an Ebola-affected area in the 21 days before illness onset. Initial Sepsis Screen: Does the patient meet any 2 criteria? No. Patient's initial sepsis screen is negative. Does the patient have a suspected source of infection? No. Patient's initial sepsis screen is negative. Risk Assessment: Do you want to hurt yourself or someone else? Patient reports no desire to harm self or others. Onset of symptoms was April 24, 2022. 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 - Social history:: Smoking status: Patient denies any tobacco usage or history of. Screenin:29 Abuse screen: Denies threats or abuse. Denies injuries from another. Nutritional tw5 screening: No deficits noted. Tuberculosis screening: No symptoms or risk factors identified. 02:55 Fall Risk None identified. as6 Assessment: 02:53 General: Appears uncomfortable, Behavior is calm, cooperative. Pain: Complains of pain as6 in right low back. Neuro: Cantu Agitation-Sedation Scale (RASS): 0 - Alert and Calm Level of Consciousness is awake, alert, obeys commands, Oriented to person, place, time, situation. Cardiovascular: JVD is absent Patient's skin is warm and dry. Respiratory: Respiratory effort is even, unlabored, Respiratory pattern is regular, symmetrical. Musculoskeletal: Reports pain in right low back. Vital Signs: 02:24 BP 138 / 80; Pulse 80; Resp 14; Temp 99(O); Pulse Ox 100% ; Weight 73.94 kg; Height 5 tw5 ft. 2 in. (157.48 cm); Pain 9/10; 04:00 BP 121 / 74; Pulse 91; Resp 18 S; Pulse Ox 97% on R/A; as6 05:00 BP 113 / 72; Pulse 78; Resp 18 S; Pulse Ox 96% on R/A; as6 06:00 BP 123 / 71; Pulse 74; Resp 18 S; Pulse Ox 99% on R/A; as6 02:24 Body Mass Index 29.81 (73.94 kg, 157.48 cm) tw5 ED Course: 02:18 Patient arrived in ED. bp1 02:18 Mahamed Mcclellan DO is Attending Physician. ms3 02:28 Triage completed. tw5 02:34 Elver Ceja, VÍCTOR is Primary Nurse. as6 02:55 Arm band placed on. as6 02:55 Bed in low position. Call light in reach. Side rails up X 1. Pulse ox on. NIBP on. as6 04:30 CT Abd/Pelvis - Without Contrast In Process Unspecified. EDMS 05:30 Inserted saline lock: 24 gauge in left upper arm, using aseptic technique. as6 06:20 No provider procedures requiring assistance completed. IV discontinued, intact, as6 bleeding controlled, No redness/swelling at site. Pressure dressing applied. Administered Medications: 02:45 Drug: HYDROcodone-acetaminophen 5 mg-325 mg 1 tabs Route: PO; as6 06:20 Follow up: Response: No adverse reaction as6 02:45 Drug: Valium (diazepam) 5 mg Route: PO; as6 06:19 Follow up: Response: No adverse reaction as6 05:21 Drug: Ketamine 10 mg Route: IVP; Infused Over: 10 mins; Site: left upper arm; kd3 06:19 Follow up: Response: No adverse reaction as6 05:35 Drug: Zofran (Ondansetron) 4 mg Route: IVP; Site: left upper arm; as6 06:19 Follow up: Response: No adverse reaction as6 Medication: 02:57 VIS not applicable for this client. as6 Outcome: 06:14 Discharge ordered by . ms3 06:20 Discharged to home via wheelchair, with family. as6 06:20 Condition: stable 06:20 Discharge instructions given to patient, Instructed on discharge instructions, follow up and referral plans. medication usage, Demonstrated understanding of instructions, follow-up care, medications, Prescriptions given X 1. 06:25 Patient left the ED. as6 Signatures: Dispatcher [employer] EDMS Mahamed Mcclellan DO DO ms3 Vanessa Cantu Tiffany tw5 Elver Ceja RN RN as6 Jamilah Forde RN RN kd3 Corrections: (The following items were deleted from the chart) 03:00 02:49 URINALYSIS+U.LAB.BRZ drawn and sent. as6 EDMS
--- NOTE | 2022-04-26 06:14 | EDPHYS ---
Physician Documentation [facility] Name: Ara Mercado Age: 37 yrs Sex: Female : 1985 Arrival Date: 04/26/2022 Time: 02:18 Bed 6 Private MD: ED Physician Mahamed Mcclellan HPI: 04/26 02:33 This 37 yrs old Female presents to ER via Ambulatory with complaints of Back Pain. ms3 02:33 The patient presents with pain that is acute, with no known mechanism of injury. The ms3 symptoms are located in the low back. Onset: The symptoms/episode began/occurred 3 day(s) ago. The pain does not radiate. Associated signs and symptoms: The patient has no apparent associated signs or symptoms. The problem was sustained without known cause. Modifying factors: The patient symptoms are alleviated by nothing, the patient symptoms are aggravated by nothing. 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 - Social history:: Smoking status: Patient denies any tobacco usage or history of. ROS: 02:33 Constitutional: Negative for fever, and chills. Neck: Negative for injury, pain, and ms3 swelling, Cardiovascular: Negative for chest pain, and palpitations. Respiratory: Negative for shortness of breath, cough, wheezing, and pleuritic chest pain, Abdomen/GI: Negative for abdominal pain, nausea, vomiting, diarrhea, and constipation, MS/Extremity: Negative for injury and deformity, Psych: Negative for depression, anxiety, suicide ideation, homicidal ideation, and hallucinations. 02:33 Back: Positive for pain at rest, pain with movement. 02:33 All other systems are negative. Exam: 02:33 Constitutional: This is a well developed, well nourished patient who is awake, alert, ms3 and in no acute distress. Head/Face: Normocephalic, atraumatic. Neck: Trachea midline, no cervical lymphadenopathy. Supple, full range of motion without nuchal rigidity, or vertebral point tenderness. No Meningismus. Chest/axilla: Normal chest wall appearance and motion. Nontender with no deformity. Cardiovascular: Regular rate and rhythm with a normal S1 and S2. No gallops, murmurs, or rubs. Normal PMI, no JVD. No pulse deficits. Respiratory: Lungs have equal breath sounds bilaterally, clear to auscultation and percussion. No rales, rhonchi or wheezes noted. No increased work of breathing, no retractions or nasal flaring. Abdomen/GI: Soft, non-tender, with normal bowel sounds. No distension or tympany. No guarding or rebound. No evidence of tenderness throughout. 02:33 Back: pain, that is moderate, ROM is normal, normal spinal alignment noted, muscle spasm, is appreciated in the right low back. Vital Signs: 02:24 BP 138 / 80; Pulse 80; Resp 14; Temp 99(O); Pulse Ox 100% ; Weight 73.94 kg; Height 5 tw5 ft. 2 in. (157.48 cm); Pain 9/10; 04:00 BP 121 / 74; Pulse 91; Resp 18 S; Pulse Ox 97% on R/A; as6 05:00 BP 113 / 72; Pulse 78; Resp 18 S; Pulse Ox 96% on R/A; as6 06:00 BP 123 / 71; Pulse 74; Resp 18 S; Pulse Ox 99% on R/A; as6 02:24 Body Mass Index 29.81 (73.94 kg, 157.48 cm) tw5 MDM: 02:31 Patient medically screened. ms3 02:33 Differential diagnosis: Muscle spasm. ms3 06:16 Data reviewed: vital signs, nurses notes, lab test result(s), radiologic studies. Data ms3 interpreted: Pulse oximetry: on room air is 100 %. Interpretation: normal. Counseling: I had a detailed discussion with the patient and/or guardian regarding: the historical points, exam findings, and any diagnostic results supporting the discharge/admit diagnosis, lab results, radiology results, the need for outpatient follow up, to return to the emergency department if symptoms worsen or persist or if there are any questions or concerns that arise at home. ED course: Discussed labs, CT, physical exam findings with patient. Patient to follow-up with PMD in 2 to 3 days. Patient understands and agrees with plan. All questions were answered. Return precautions discussed include worsening symptoms, or any other concerns. On reevaluation patient symptoms improved, patient is alert and oriented x4, no apparent distress, nontoxic, ambulatory in emergency department.. 04/26 02:50 Order name: Urine Dipstick-Ancillary; Complete Time: 03:25 EDMS 04/26 02:56 Order name: Urinalysis; Complete Time: 03:25 EDMS 04/26 03:01 Order name: Urine Microscopic Only; Complete Time: 03:25 EDMS 04/26 03:10 Order name: Urine Culture EDMS 04/26 02:31 Order name: Urine Dipstick-Ancillary (obtain specimen); Complete Time: 02:49 ms3 04/26 04:00 Order name: CT Abd/Pelvis - Without Contrast ms3 04/26 04:14 Order name: Urine --Ancillary (enter results); Complete Time: 05:26 [facility] 04/26 04:00 Order name: Urine Test (obtain specimen); Complete Time: 04:13 ms3 Administered Medications: 02:45 Drug: HYDROcodone-acetaminophen 5 mg-325 mg 1 tabs Route: PO; as6 06:20 Follow up: Response: No adverse reaction as6 02:45 Drug: Valium (diazepam) 5 mg Route: PO; as6 06:19 Follow up: Response: No adverse reaction as6 05:21 Drug: Ketamine 10 mg Route: IVP; Infused Over: 10 mins; Site: left upper arm; kd3 06:19 Follow up: Response: No adverse reaction as6 05:35 Drug: Zofran (Ondansetron) 4 mg Route: IVP; Site: left upper arm; as6 06:19 Follow up: Response: No adverse reaction as6 Disposition Summary: 04/26/22 06:14 Discharge Ordered Location: Home ms3 Condition: Stable ms3 Diagnosis - Low back pain ms3 - Muscle spasm of back ms3 Followup: ms3 - With: Private Physician - When: 2 - 3 days - Reason: Recheck today's complaints Discharge Instructions: - Discharge Summary Sheet ms3 - Acute Back Pain, Adult ms3 Forms: - Medication Reconciliation Form ms3 - Thank You Letter ms3 - Antibiotic Education ms3 - Prescription Opioid Use ms3 Prescriptions: - Cyclobenzaprine 5 mg Oral Tablet - take 1 tablet by ORAL route 3 times per day As needed; 15 tablet; Refills: 0, ms3 Product Selection Permitted Signatures: Dispatcher [employer] EDMS Mahamed Mcclellan DO DO ms3 FrankyNaomiMarissa tw5 Elver Ceja RN RN as6 Jamilah Forde RN RN kd3 Corrections: (The following items were deleted from the chart) 03:00 02:32 URINALYSIS+U.LAB.BRZ ordered. EDNJ EDNJ
[2022-04-26 06:29] VITALS: TEMP 99
[2022-04-26 06:34] VITALS: BP 123/71; O2SAT 99
--- NOTE | 2022-04-26 21:53 | RAD REPORT ---
EXAM DESCRIPTION: CT - Abdomen Pelvis Wo Contrast - 04/26/2022 6:07 am CLINICAL HISTORY: ABD PAIN TECHNIQUE: Contiguous axial images obtained through the abdomen and pelvis following the uneventful administration of IV contrast. Coronal and sagittal reformatted images were provided. This exam was performed according to our departmental dose-optimization program, which includes autom ated exposure control, adjustment of the mA and/or kV according to patient size and/or use of iterati ve reconstruction technique. COMPARISON: 04/07/2020 FINDINGS: Lung bases: Clear Liver: Unremarkable Gallbladder and biliary system: Multiple gallstones. No gallbladder wall thickening or pericholecysti c fluid. Pancreas: Unremarkable Spleen: Unremarkable Adrenals: Unremarkable Kidneys: Normal renal cortical enhancement. No calculi. No hydronephrosis. Bowel: No obstruction. No appreciable mucosal thickening. Appendix: Normal caliber appendix. No findings to suggest acute appendicitis. Urinary bladder: Unremarkable Reproductive: Unremarkable as visualized Lymph nodes: No pathologically enlarged lymph nodes. Peritoneum: No focal fluid collection. No free air. Vessels: Minimal atherosclerotic disease. No abdominal aortic aneurysm. Abdominal wall: Unremarkable Bones: Unremarkable IMPRESSION: 1. No acute abnormality identified within the abdomen and pelvis. 2. Other findings as above. Electronically signed by: Jayson Overton MD 05/23/2020 3:13 AM CDT Due to temporary technical issues with the PACS/Fluency reporting system, reports are being signed by the in house radiologists without review as a courtesy to insure prompt reporting. The interpreting radiologist is fully responsible for the content of the report.
== END 2022-04-26 06:25 | disposition home or self-care (01) ==
LOC: ER 02:14
DX: M62.830 Muscle spasm of back (principal); E11.9 Type 2 diabetes mellitus without complications; Z88.1 Allergy status to other antibiotic agents; Z88.5 Allergy status to narcotic agent
CPT/HCPCS: 74176; 81003; 81015; 81025; 87086; 87088; 96374; 96375; 99284; J2405

== ENCOUNTER 2022-05-13 16:02 | Emergency (ER) | payer SELFPAY ==
[2022-05-13 20:13] LABS: Urine Blood Negative (Negative); Urine Glucose Negative (Negative); Urine Protein Negative (Negative); Urine Specific Gravity 1.015 (1.005-1.030); Urine pH 5.5 (5.0-7.0)
[2022-05-13] MEDS ORDERED: CEFTRIAXONE 1000 MG/VIAL ONE (20:22)
[2022-05-13] MEDS ORDERED: MEPERIDINE HCL 25 MG/ML SYR ONE (20:22)
[2022-05-13] MEDS ORDERED: FAMOTIDINE 20 MG/2 ML VIAL IV ONE (20:23)
[2022-05-13] MEDS ORDERED: NA CHLORIDE 0.9% 500 ML ONE (20:23)
[2022-05-13] MEDS ORDERED: NA CHLORIDE 0.9% 50 ML ONE (20:23)
[2022-05-13] MEDS ORDERED: ONDANSETRON 4 MG/2 ML VIAL ONE (20:23)
[2022-05-13 20:48] LABS: Urine Specific Gravity/Preg 1.015 (1.005-1.030)
--- NOTE | 2022-05-13 21:27 | RAD REPORT ---
EXAM DESCRIPTION: [facility]Stone Protocol - 05/13/2022 9:10 pm CLINICAL HISTORY: Left flank pain COMPARISON: Abdomen Pelvis Wo Contrast dated 04/26/2022; Abdomen Pelvis W Contrast dated 04/01/2022; Stone Protocol dated 02/21/2022; Abdomen Pelvis Wo Contrast dated 02/04/2022 TECHNIQUE: CT of the abdomen and pelvis was performed without contrast. All CT scans are performed using dose optimization technique as appropriate and may include automated exposure control or mA/KV adjustment according to patient size. FINDINGS: Lower chest: No acute abnormality. Liver: No acute abnormality or suspicious lesions. Biliary: No biliary ductal dilatation. Cholecystectomy Stomach: No significant focal abnormality. Duodenum: No significant focal abnormality. Pancreas: No significant abnormality. Spleen: No significant abnormality. Adrenal: No suspicious lesions. Kidney/ureter: No hydronephrosis. No renal calculi. Retroperitoneum: No retroperitoneal adenopathy. Vascular: No aneurysm. Bowel: No significant focal abnormality. Normal appendix. Peritoneum: No ascites or free air. Bladder: Grossly unremarkable. Reproductive: No adnexal masses. Bones: No acute fracture. Other: n/a IMPRESSION: No acute intra-abdominal or pelvic finding. Normal appendix. No urinary tract calculi.
--- NOTE | 2022-05-13 21:49 | EDPHYS ---
Physician Documentation [facility] Name: Ara Mercado Age: 37 yrs Sex: Female : 1985 Arrival Date: 05/13/2022 Time: 16:03 Bed 27 Private MD: ED Physician Brannon Cooper HPI: 05/13 20:36 This 37 yrs old Female presents to ER via Ambulatory with complaints of Low Back Pain, kdr Nausea/Vomiting. 20:36 The patient presents with pain that is acute, with no known mechanism of injury. Onset: kdr The symptoms/episode began/occurred suddenly, this morning. Severity of symptoms: At their worst the symptoms were mild, in the emergency department the symptoms are unchanged. The patient has not experienced similar symptoms in the past. She complains of left flank pain and low back pain that started this morning. She has had several episodes prior to this. She believes it to be a kidney infection. She is also vomited x3 today. She denies fever cough or congestion. She has no other complaints and is otherwise appears stable and nontoxic. 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 - Social history:: Smoking status: Patient reports the use of cigarette tobacco products, smokes one pack cigarettes per day. ROS: 20:36 Constitutional: Negative for fever, chills, and weight loss, Eyes: Negative for injury, kdr pain, redness, and discharge, Neck: Negative for injury, pain, and swelling, Cardiovascular: Negative for chest pain, palpitations, and edema, Respiratory: Negative for shortness of breath, cough, wheezing, and pleuritic chest pain, Abdomen/GI: Negative for abdominal pain, nausea, vomiting, diarrhea, and constipation, : Negative for injury, bleeding, discharge, and swelling, MS/Extremity: Negative for injury and deformity, Skin: Negative for injury, rash, and discoloration, Neuro: Negative for headache, weakness, numbness, tingling, and seizure activity. Psych: Negative for depression, anxiety, suicide ideation, homicidal ideation, and hallucinations, Allergy/Immunology: Negative for hives, rash, and allergies, Endocrine: Negative for neck swelling, polydipsia, polyuria, polyphagia, and marked weight changes, Hematologic/Lymphatic: Negative for swollen nodes, abnormal bleeding, and unusual bruising. 20:36 Back: Positive for pain at rest, flank pain, on the left, radiated pain. Exam: 20:36 Constitutional: This is a well developed, well nourished patient who is awake, alert, kdr and in no acute distress. Head/Face: Normocephalic, atraumatic. Eyes: Pupils equal round and reactive to light, extra-ocular motions intact. Lids and lashes normal. Conjunctiva and sclera are non-icteric and not injected. Cornea within normal limits. Periorbital areas with no swelling, redness, or edema. Neck: Trachea midline, no thyromegaly or masses palpated, and no cervical lymphadenopathy. Supple, full range of motion without nuchal rigidity, or vertebral point tenderness. No Meningismus. Chest/axilla: Normal chest wall appearance and motion. Nontender with no deformity. No lesions are appreciated. Cardiovascular: Regular rate and rhythm with a normal S1 and S2. No gallops, murmurs, or rubs. Normal PMI, no JVD. No pulse deficits. Respiratory: Lungs have equal breath sounds bilaterally, clear to auscultation and percussion. No rales, rhonchi or wheezes noted. No increased work of breathing, no retractions or nasal flaring. Abdomen/GI: Soft, non-tender, with normal bowel sounds. No distension or tympany. No guarding or rebound. No evidence of tenderness throughout. Skin: Warm, dry with normal turgor. Normal color with no rashes, no lesions, and no evidence of cellulitis. MS/ Extremity: Pulses equal, no cyanosis. Neurovascular intact. Full, normal range of motion. Neuro: Awake and alert, GCS 15, oriented to person, place, time, and situation. Cranial nerves II-XII grossly intact. Motor strength 5/5 in all extremities. Sensory grossly intact. Cerebellar exam normal. Normal gait. Psych: Awake, alert, with orientation to person, place and time. Behavior, mood, and affect are within normal limits. 20:36 Back: pain, that is mild, of the left mid back. 23:24 : Pelvic Exam: External exam: is normal, Speculum exam: normal findings, no bleeding kdr is noted, no cervicitis, bimanual exam reveals no cervical motion tenderness, os that is closed, discharge, white, the nurse was present for the exam. Vital Signs: 17:21 BP 129 / 78; Pulse 93; Resp 18 S; Temp 98.2(TE); Pulse Ox 100% on R/A; Weight 76.2 kg aa5 (R); Height 5 ft. 2 in. (157.48 cm) (R); 20:30 BP 143 / 88; Pulse 88; Resp 18 S; Pulse Ox 96% on R/A; as6 22:30 BP 131 / 95; Pulse 84; Resp 18 S; Pulse Ox 96% on R/A; as6 05/14 00:00 BP 127 / 82; Pulse 93; Resp 16 S; Pulse Ox 99% on R/A; as6 05/13 17:21 Body Mass Index 30.73 (76.20 kg, 157.48 cm) aa5 MDM: 05/13 20:36 Data reviewed: vital signs, nurses notes, lab test result(s), radiologic studies. kdr Counseling: I had a detailed discussion with the patient and/or guardian regarding: the historical points, exam findings, and any diagnostic results supporting the discharge/admit diagnosis, lab results, radiology results, the need for outpatient follow up. 21:48 Patient medically screened. [facility] 05/13 19:43 Order name: CBC with Diff; Complete Time: 23:24 [facility] 05/13 19:43 Order name: Chem 7; Complete Time: 23:24 kdr 05/13 20:12 Order name: Urine --Ancillary (enter results); Complete Time: 20:58 [facility] 05/13 20:13 Order name: Urine Dipstick-Ancillary; Complete Time: 20:38 EDKY 05/13 19:43 Order name: CT Stone Protocol; Complete Time: 21:46 kdr 05/13 22:50 Order name: Wet Prep; Complete Time: 23:24 EDKY 05/13 17:24 Order name: Urine Dipstick-Ancillary (obtain specimen); Complete Time: 20:13 aa5 05/13 17:24 Order name: Urine Test (obtain specimen); Complete Time: 20:13 aa5 Administered Medications: 21:21 Drug: Pepcid (famotidine) 20 mg Route: IVP; Site: left antecubital; bb 23:48 Follow up: Response: No adverse reaction as6 21:36 Drug: Zofran (Ondansetron) 4 mg Route: IVP; Site: left antecubital; bb 23:48 Follow up: Response: No adverse reaction as6 21:36 Drug: NS 0.9% 500 ml Route: IV; Rate: bolus; Site: left antecubital; bb 23:48 Follow up: Response: No adverse reaction; IV Status: Completed infusion; IV Intake: as6 500ml 21:39 Drug: Demerol (meperidine) 25 mg Route: IVP; Site: left antecubital; bb 23:48 Follow up: Response: No adverse reaction as6 21:42 Drug: Rocephin - (cefTRIAXone) 1 grams Route: IVPB; Infused Over: 30 mins; Site: left bb antecubital; 23:49 Follow up: Response: No adverse reaction; IV Status: Completed infusion; IV Intake: [id number] 23:48 Drug: [place] (HYDROcodone-acetaminophen) 10 mg-325 mg 1 tabs Route: PO; as6 23:49 Follow up: Response: No adverse reaction; RASS: Alert and Calm (0) as6 Disposition Summary: 05/13/22 21:48 Discharge Ordered Location: Home kdr Problem: an acute exacerbation kdr Symptoms: have improved kdr Condition: Stable kdr Diagnosis - Left Flank Pain kdr Followup: kdr - With: Private Physician - When: 2 - 3 days - Reason: If symptoms return, Further diagnostic work-up, Recheck today's complaints, Continuance of care, Re-evaluation by your physician Discharge Instructions: - Discharge Summary Sheet kdr - Flank Pain, Adult, [id number] kdr Forms: - Medication Reconciliation Form kdr - Thank You Letter kdr Prescriptions: - Tylenol-Codeine #3 300 mg-30 mg Oral - take 1 tablet by ORAL route every 4-6 hours As needed; 10 tablet; Refills: 0, kdr Product Selection Permitted Signatures: Dispatcher [employer] EDKY Brannon Cooper MD MD kdr Sara Bourgeois RN RN bb Amelia Monroy, RN RN aa5 Elver Ceja RN RN as6 Corrections: (The following items were deleted from the chart) 22:50 22:01 Wet Prep+BA.LAB.KODY ordered. EDMS EDMS
--- NOTE | 2022-05-13 21:49 | ER ---
Nurse's Notes [facility] Name: Ara Mercado Age: 37 yrs Sex: Female : 1985 Arrival Date: 05/13/2022 Time: 16:03 Bed 27 Private MD: Diagnosis: Left Flank Pain Presentation: 05/13 17:21 Chief complaint: Patient states: lower back pain that began this morning. Pt states "I aa5 think I have a kidney infection". Pt denies any urinary symptoms. Reports nausea and vomited x 3 today. Coronavirus screen: vomiting. Ebola Screen: Patient denies travel to an Ebola-affected area in the 21 days before illness onset. Initial Sepsis Screen: Does the patient meet any 2 criteria? No. Patient's initial sepsis screen is negative. Does the patient have a suspected source of infection? No. Patient's initial sepsis screen is negative. Risk Assessment: Do you want to hurt yourself or someone else? Patient reports no desire to harm self or others. Onset of symptoms was April 2022. 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 - Social history:: Smoking status: Patient reports the use of cigarette tobacco products, smokes one pack cigarettes per day. Screenin/21 00:11 Abuse screen: Denies threats or abuse. Denies injuries from another. Nutritional as6 screening: No deficits noted. Tuberculosis screening: No symptoms or risk factors identified. Fall Risk None identified. Assessment: 05/13 21:00 General: Appears uncomfortable, Behavior is calm, cooperative. Pain: Complains of pain as6 in left mid back. Neuro: Cantu Agitation-Sedation Scale (RASS): 0 - Alert and Calm Level of Consciousness is awake, alert, obeys commands, Oriented to person, place, time, situation. Respiratory: Respiratory effort is even, unlabored. GI: Abdomen is flat, Reports nausea, vomiting. Vital Signs: 17:21 BP 129 / 78; Pulse 93; Resp 18 S; Temp 98.2(TE); Pulse Ox 100% on R/A; Weight 76.2 kg aa5 (R); Height 5 ft. 2 in. (157.48 cm) (R); 20:30 BP 143 / 88; Pulse 88; Resp 18 S; Pulse Ox 96% on R/A; as6 22:30 BP 131 / 95; Pulse 84; Resp 18 S; Pulse Ox 96% on R/A; as6 05/14 00:00 BP 127 / 82; Pulse 93; Resp 16 S; Pulse Ox 99% on R/A; as6 05/13 17:21 Body Mass Index 30.73 (76.20 kg, 157.48 cm) aa5 ED Course: 05/13 16:03 Patient arrived in ED. am2 17:20 Arm band placed on. aa5 17:23 Triage completed. aa5 19:29 Elver Ceja RN is Primary Nurse. as6 19:31 Brannon Cooper MD is Attending Physician. kdr 21:12 CT Stone Protocol In Process Unspecified. EDMS 21:35 Initial lab(s) drawn, by me, sent to lab. Inserted saline lock: 20 gauge in left bb antecubital area, using aseptic technique. Blood collected. 05/14 00:11 Bed in low position. Call light in reach. Side rails up X 1. NIBP on. as6 00:14 No provider procedures requiring assistance completed. IV discontinued, intact, as6 bleeding controlled, No redness/swelling at site. Pressure dressing applied. Administered Medications: 05/13 21:21 Drug: Pepcid (famotidine) 20 mg Route: IVP; Site: left antecubital; bb 23:48 Follow up: Response: No adverse reaction as6 21:36 Drug: Zofran (Ondansetron) 4 mg Route: IVP; Site: left antecubital; bb 23:48 Follow up: Response: No adverse reaction as6 21:36 Drug: NS 0.9% 500 ml Route: IV; Rate: bolus; Site: left antecubital; bb 23:48 Follow up: Response: No adverse reaction; IV Status: Completed infusion; IV Intake: as6 500ml 21:39 Drug: Demerol (meperidine) 25 mg Route: IVP; Site: left antecubital; bb 23:48 Follow up: Response: No adverse reaction as6 21:42 Drug: Rocephin - (cefTRIAXone) 1 grams Route: IVPB; Infused Over: 30 mins; Site: left bb antecubital; 23:49 Follow up: Response: No adverse reaction; IV Status: Completed infusion; IV Intake: [id number] 23:48 Drug: [place] (HYDROcodone-acetaminophen) 10 mg-325 mg 1 tabs Route: PO; as6 23:49 Follow up: Response: No adverse reaction; RASS: Alert and Calm (0) as6 Medication: 05/14 00:14 VIS not applicable for this client. as6 Intake: 05/13 23:48 IV: 500ml; Total: 500ml. as6 23:49 IV: 50ml; Total: 550ml. as6 Outcome: 21:48 Discharge ordered by . kdr 05/14 00:14 Discharged to home ambulatory. as6 Condition: stable Discharge instructions given to patient, Instructed on discharge instructions, follow up and referral plans. medication usage, Demonstrated understanding of instructions, follow-up care, medications, Prescriptions given X 1. 00:15 Patient left the ED. as6 Signatures: Dispatcher [employer] EDMS Brannon Cooper MD MD kdr Ballard, Brenda RN RN Amelia Groves RN RN [email or web address] Nicole Price Ashby, RN RN as6 Corrections: (The following items were deleted from the chart) 05/13 17:25 17:21 BP 129 / 78; Pulse 93bpm; Resp 18bpm; Spontaneous; Pulse Ox 100% RA; aa5 aa5
[2022-05-13 21:57] LABS: Absolute Lymphocytes (CBC) 2.8 K/uL (0.7-4.9); Hematocrit 38.9 % (36.0-45.0); Lymphocytes % 23.1 % (15.3-44.8); MPV 7.3 fL (7.6-11.3); RBC Red Blood Cell Count 4.43 M/uL (3.86-4.86)
[2022-05-13 22:11] LABS: Potassium 3.8 mmol/L (3.5-5.1)
[2022-05-13] MEDS ORDERED: HYDROCODONE/APAP 10/325 TAB ONE (23:47)
[2022-05-14 01:20] VITALS: TEMP 98.2
[2022-05-14 01:24] VITALS: BP 127/82; O2SAT 99
== END 2022-05-14 00:15 | disposition home or self-care (01) ==
LOC: ER 16:02
DX: R10.9 Unspecified abdominal pain (principal); R11.10 Vomiting, unspecified; E11.9 Type 2 diabetes mellitus without complications; F17.210 Nicotine dependence, cigarettes, uncomplicated; Z88.1 Allergy status to other antibiotic agents; Z88.5 Allergy status to narcotic agent
CPT/HCPCS: 36415; 74176; 76377; 80048; 81003; 81025; 85025; 87210; 96365; 96366; 96375; 99284; J2175; J2405; J3490; J7040

== ENCOUNTER 2022-05-28 16:45 | Emergency (ER) | payer SELFPAY ==
[2022-05-28 18:35] LABS: AST/SGOT 7 U/L (15-37); Albumin 3.4 g/dL (3.4-5.0); Alkaline Phosphatase 91 U/L (45-117); BUN Blood Urea Nitrogen 13 mg/dL (7-18); Bicarbonate 23 mmol/L (21-32); Bilirubin Total 0.2 mg/dL (0.2-1.0); Glomerular Filtration Rate 48 ml/min (=/>90); Glucose Level 224 mg/dL (74-106); Lipase 195 U/L (73-393); Potassium 3.8 mmol/L (3.5-5.1); Protein, Total 8.1 g/dL (6.4-8.2); Sodium Level 138 mmol/L (136-145)
[2022-05-28 18:38] LABS: ALT/SGPT < 10 U/L (12-78)
[2022-05-28 18:44] LABS: Absolute Lymphocytes (CBC) 2.1 K/uL (0.7-4.9); Lymphocytes % 16.1 % (15.3-44.8); MCV 89.5 fL (80-100); RBC Red Blood Cell Count 4.13 M/uL (3.86-4.86)
[2022-05-28 18:45] LABS: Urine Blood Negative (Negative); Urine Glucose Trace (Negative); Urine Protein 1+ (Negative); Urine Specific Gravity 1.025 (1.005-1.030); Urine pH 5.5 (5.0-7.0)
[2022-05-28] MEDS ORDERED: NA CHLORIDE 0.9% 1,000 ML ONE (18:54)
[2022-05-28] MEDS ORDERED: ONDANSETRON 4 MG/2 ML VIAL ONE (18:54)
[2022-05-28] MEDS ORDERED: FENTANYL CITR 100 MCG/2 ML ONE ×2 (18:54→19:55)
[2022-05-28 19:44] LABS: Urine Bacteria <20 /HPF (<20); Urine RBC NONE SEEN /HPF (NONE SEEN)
--- NOTE | 2022-05-28 20:17 | RAD REPORT ---
EXAM DESCRIPTION: CTAbdomen Pelvis W Contrast - 05/28/2022 8:03 pm CLINICAL HISTORY: Abdominal pain. RLQ abdominal pain COMPARISON: Abdomen Pelvis W Contrast dated 04/01/2022; Abdomen Pelvis W Contrast dated 01/22/2022; Abdomen Pelvis W Contrast dated 10/02/2021; Abdomen Pelvis W Contrast dated 09/18/2021 TECHNIQUE: Biphasic CT imaging of the abdomen and pelvis was performed with 100 ml non-ionic IV cont rast. All CT scans are performed using dose optimization technique as appropriate and may include automated exposure control or mA/KV adjustment according to patient size. FINDINGS: The lung bases are clear.Cholecystectomy. The liver, spleen, pancreas, adrenal glands and left kidney are within normal limits. Area of diminis hed density is seen in the midpole anterior right kidney and inferior cortex right kidney. No bowel obstruction, free air, free fluid or abscess. The appendix is normal. No evidence of signi ficant lymphadenopathy. No suspicious bony findings. IMPRESSION: Findings suspicious for right-sided pyelonephritis
[2022-05-28] MEDS ORDERED: CIPROFLOXACIN HCL 500 MG TAB ONE (20:48)
[2022-05-28] MEDS ORDERED: CODEINE 30MG/APAP 300MG TAB ONE (20:49)
--- NOTE | 2022-05-28 21:02 | ER ---
Nurse's Notes [facility] Name: Ara Mercado Age: 37 yrs Sex: Female : 1985 Arrival Date: 05/28/2022 Time: 16:47 Bed 17 Private MD: Diagnosis: Pyelonephritis acute;Other hemorrhoids Presentation: 05/28 17:06 Chief complaint: Patient states: Back pain X 1 week. Rectal pain X 3 days. Denies ld1 injury. Coronavirus screen: At this time, the client does not indicate any symptoms associated with coronavirus-19. Ebola Screen: No symptoms or risks identified at this time. Initial Sepsis Screen: Does the patient meet any 2 criteria? No. Patient's initial sepsis screen is negative. Does the patient have a suspected source of infection? No. Patient's initial sepsis screen is negative. Risk Assessment: Do you want to hurt yourself or someone else? Patient reports no desire to harm self or others. Onset of symptoms was May 28, 2022. 17:06 Method Of Arrival: Ambulatory ld1 17:06 Acuity: CHARISSA 3 ld1 Triage Assessment: 17:07 General: Appears in no apparent distress. comfortable, Behavior is calm, cooperative, ld1 appropriate for age. Pain: Complains of pain in back Pain does not radiate. Pain currently is 10 out of 10 on a pain scale. EENT: No signs and/or symptoms were reported regarding the EENT system. Neuro: Level of Consciousness is awake, alert, obeys commands, Oriented to person, place, time, situation. Cardiovascular: Capillary refill < 3 seconds Patient's skin is warm and dry. Respiratory: Airway is patent Respiratory effort is even, unlabored. GI: Abdomen is flat, non-distended. : No signs and/or symptoms were reported regarding the genitourinary system. Derm: No signs and/or symptoms reported regarding the dermatologic system. Musculoskeletal: No signs and/or symptoms reported regarding the musculoskeletal system. 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 - Social history:: Smoking status: Patient reports the use of cigarette tobacco products, smokes one-half pack cigarettes per day, Patient/guardian denies using alcohol. Screenin:54 Abuse screen: Denies threats or abuse. Denies injuries from another. Nutritional iw screening: No deficits noted. Tuberculosis screening: No symptoms or risk factors identified. Fall Risk IV access (20 points). Assessment: 18:16 General: Appears in no apparent distress. Behavior is calm, cooperative. Neuro: iw Cantu Agitation-Sedation Scale (RASS): Level of Consciousness is awake, alert, obeys commands. 18:53 Pain: Complains of pain in back, rectum. Cardiovascular: Patient's skin is warm and iw dry. Respiratory: Airway is patent Respiratory effort is even, unlabored. GI: Reports rectal pain. Derm: Skin is intact, is healthy with good turgor. Musculoskeletal: Range of motion: intact in all extremities. 20:47 Reassessment: No changes from previously documented assessment. Patient and/or family ll3 updated on plan of care and expected duration. Pain level reassessed. Patient is alert, oriented x 3, equal unlabored respirations, skin warm/dry/pink. Vital Signs: 17:06 BP 119 / 79; Pulse 105; Resp 18; Temp 98.4(TE); Pulse Ox 99% on R/A; Weight 77.11 kg; ld1 Height 5 ft. 2 in. (157.48 cm); Pain 8/10; 20:00 BP 122 / 69; Pulse 87; Resp 17; Pulse Ox 97% on R/A; ll3 17:06 Body Mass Index 31.09 (77.11 kg, 157.48 cm) ld1 ED Course: 16:47 Patient arrived in ED. rg4 16:48 Rashad Sandoval PA is PHCP. cp 16:48 Mahamed Mcclellan DO is Attending Physician. cp 17:07 Triage completed. ld1 17:07 Arm band placed on right wrist. ld1 18:00 Inserted saline lock: 22 gauge in left forearm, using aseptic technique. iw 18:16 Lyndsay Zuluaga, RN is Primary Nurse. iw 19:24 Primary Nurse role handed off by Lyndsay Zuluaga RN mw2 19:33 Alex Lemons MD is Attending Physician. cp 20:05 CT Abd/Pelvis - IV Contrast Only In Process Unspecified. EDMS 20:36 Yue Jamison, VÍCTOR is Primary Nurse. ll3 20:48 No provider procedures requiring assistance completed. IV discontinued, intact, ll3 bleeding controlled, Pressure dressing applied. 21:30 Patient has correct armband on for positive identification. Placed in gown. Bed in low ll3 position. Call light in reach. Side rails up X 1. Administered Medications: 18:53 Drug: fentaNYL (PF) 25 mcg Route: IVP; Site: left forearm; iw 18:53 Drug: Zofran (Ondansetron) 4 mg Route: IVP; Site: left forearm; iw 19:06 Drug: NS 0.9% 1000 ml Route: IV; Rate: 1 bolus; Site: left forearm; chapman 19:56 Drug: fentaNYL (PF) 25 mcg Route: IVP; Site: left forearm; ll3 21:29 Follow up: Response: No adverse reaction ll3 20:48 Drug: Cipro (ciprofloxacin) 500 mg Route: PO; ll3 21:29 Follow up: Response: No adverse reaction ll3 20:48 Drug: Tylenol #3 (300 mg-30 mg) 2 tabs Route: PO; ll3 21:29 Follow up: Response: No adverse reaction ll3 Medication: 20:48 VIS not applicable for this client. ll3 Outcome: 21:01 Discharge ordered by MD. cp 21:30 Discharged to home ambulatory, with family. ll3 21:30 Condition: stable 21:30 Discharge instructions given to patient, Instructed on discharge instructions, follow up and referral plans. medication usage, Demonstrated understanding of instructions, follow-up care, medications, Prescriptions given X 4. 21:30 Patient left the ED. ll3 Signatures: Dispatcher [employer] EDMS Lyndsay Zuluaga RN RN iw Rashad Sandoval PA PA cp Garcia, Rubi rg4 Ingrid Rios mw2 Linsey Nelson RN RN ld1 Yue Jamison RN RN ll3 Au-StagerIdalmis RN RN
--- NOTE | 2022-05-28 21:02 | EDPHYS ---
Physician Documentation [facility] Name: Ara Mercado Age: 37 yrs Sex: Female : 1985 Arrival Date: 05/28/2022 Time: 16:47 Bed 17 Private MD: ED Physician Alex Lemons HPI: 05/28 18:00 This 37 yrs old Female presents to ER via Ambulatory with complaints of Back Pain, cp Rectal Pain. 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 - Social history:: Smoking status: Patient reports the use of cigarette tobacco products, smokes one-half pack cigarettes per day, Patient/guardian denies using alcohol. Exam: 20:50 : Rectal exam: hemorrhoid(s), external, painful, thrombosed, small. cp Vital Signs: 17:06 BP 119 / 79; Pulse 105; Resp 18; Temp 98.4(TE); Pulse Ox 99% on R/A; Weight 77.11 kg; ld1 Height 5 ft. 2 in. (157.48 cm); Pain 8/10; 20:00 BP 122 / 69; Pulse 87; Resp 17; Pulse Ox 97% on R/A; ll3 17:06 Body Mass Index 31.09 (77.11 kg, 157.48 cm) ld1 MDM: 17:52 Patient medically screened. cp 05/28 17:52 Order name: CBC with Diff; Complete Time: 19:47 cp 05/28 19:47 Interpretation: Normal except: WBC 13.2; PLT 526; MPV 7.0; GEMA% 76.4; NEUT A 10.1. cp 05/28 17:52 Order name: CMP; Complete Time: 19:47 cp 05/28 19:47 Interpretation: Normal except: GLUC 224; CRE 1.42; GFR 48; AST 7; ALT < 10; GLOB 4.7; cp A/G 0.7. 05/28 17:52 Order name: Lipase; Complete Time: 19:47 05/28 17:52 Order name: Urine Microscopic Only; Complete Time: 19:47 05/28 19:48 Interpretation: Reviewed. 05/28 18:46 Order name: Urine Dipstick-Ancillary; Complete Time: 19:47 EDMS 05/28 20:39 Order name: Urine --Ancillary (enter results) 2 05/28 17:52 Order name: IV Saline Lock; Complete Time: 18:36 05/28 18:02 Order name: CT Abd/Pelvis - IV Contrast Only; Complete Time: 20:31 05/28 17:52 Order name: Labs collected and sent; Complete Time: 18:36 05/28 17:52 Order name: Urine Dipstick-Ancillary (obtain specimen); Complete Time: 18:36 05/28 17:52 Order name: Urine Test (obtain specimen); Complete Time: 18:46 05/28 18:23 Order name: Labs - recollect needed: recollect green; Complete Time: 18:36 eb Administered Medications: 18:53 Drug: fentaNYL (PF) 25 mcg Route: IVP; Site: left forearm; iw 18:53 Drug: Zofran (Ondansetron) 4 mg Route: IVP; Site: left forearm; iw 19:06 Drug: NS 0.9% 1000 ml Route: IV; Rate: 1 bolus; Site: left forearm; chapman 19:56 Drug: fentaNYL (PF) 25 mcg Route: IVP; Site: left forearm; ll3 21:29 Follow up: Response: No adverse reaction ll3 20:48 Drug: Cipro (ciprofloxacin) 500 mg Route: PO; ll3 21:29 Follow up: Response: No adverse reaction ll3 20:48 Drug: Tylenol #3 (300 mg-30 mg) 2 tabs Route: PO; ll3 21:29 Follow up: Response: No adverse reaction ll3 Disposition Summary: 05/28/22 21:01 Discharge Ordered Location: Home cp Problem: new cp Symptoms: have improved cp Condition: Stable cp Diagnosis - Pyelonephritis acute cp - Other hemorrhoids cp Followup: cp - With: Private Physician - When: 2 - 3 days - Reason: Recheck today's complaints Discharge Instructions: - Discharge Summary Sheet cp - High-Fiber Diet cp - Hemorrhoids cp - Pyelonephritis, Adult cp Forms: - Medication Reconciliation Form cp - Thank You Letter cp - Antibiotic Education cp - Prescription Opioid Use cp Prescriptions: - Zofran 4 mg Oral Tablet - take 1 tablet by ORAL route every 12 hours As needed; 20 tablet; Refills: 0, cp Product Selection Permitted - Cipro 500 mg Oral Tablet - take 1 tablet by ORAL route every 12 hours for 7 days; 14 tablet; Refills: 0, cp Product Selection Permitted - Anusol-HC 25 mg Rectal Suppository - insert 1 suppository by RECTAL route every 12 hours As needed; 20 suppository; cp Refills: 0, Product Selection Permitted - Tylenol-Codeine #3 300 mg-30 mg Oral - take 2 tablet by ORAL route every 8-10 hours As needed; 12 tablet; Refills: 0, cp Product Selection Permitted Signatures: Dispatcher [employer] Lyndsay Morales, RN RN Rashad Ocampo PA PA cp Yohana Ruth Lauren RN RN ld1 Yue Jamison RN RN ll3 Idalmis Jensen RN RN chapman
[2022-05-28 22:27] VITALS: TEMP 98.4
[2022-05-28 22:30] VITALS: BP 122/69; O2SAT 97
[2022-05-28 22:33] LABS: Urine Specific Gravity/Preg 1.025 (1.005-1.030)
== END 2022-05-28 21:30 | disposition home or self-care (01) ==
LOC: ER 16:45
DX: N10 Acute pyelonephritis (principal); K64.8 Other hemorrhoids; E11.9 Type 2 diabetes mellitus without complications; F17.210 Nicotine dependence, cigarettes, uncomplicated; Z88.1 Allergy status to other antibiotic agents; Z88.5 Allergy status to narcotic agent; Z88.8 Allergy status to other drugs, medicaments and biological substances
CPT/HCPCS: 36415; 74177; 80053; 81003; 81015; 81025; 83690; 85025; J2405; J3010; J7030; Q9967

== ENCOUNTER 2022-06-06 18:14 | Emergency (ER) | payer SELFPAY ==
[2022-06-06 18:56] LABS: Urine Blood 2+ (Negative); Urine Glucose Trace (Negative); Urine Protein 2+ (Negative); Urine Specific Gravity 1.025 (1.005-1.030); Urine pH 5.5 (5.0-7.0)
[2022-06-06 19:33] LABS: Urine Specific Gravity/Preg 1.025 (1.005-1.030)
[2022-06-06 20:34] LABS: Absolute Lymphocytes (CBC) 2.5 K/uL (0.7-4.9); Hematocrit 41.4 % (36.0-45.0); Lymphocytes % 18.2 % (15.3-44.8); MPV 7.2 fL (7.6-11.3); RBC Red Blood Cell Count 4.64 M/uL (3.86-4.86)
[2022-06-06] MEDS ORDERED: FENTANYL CITR 100 MCG/2 ML ONE (20:44)
[2022-06-06] MEDS ORDERED: FAMOTIDINE 20 MG/2 ML VIAL IV ONE (21:35)
[2022-06-06] MEDS ORDERED: HYDROMORPHONE HCL 1 MG/ML INJ ONE (21:35)
[2022-06-07 00:24] LABS: Urine Bacteria <20 /HPF (<20); Urine Mucus 2+ /HPF (None Seen)
[2022-06-07 01:11] LABS: Albumin 3.5 g/dL (3.4-5.0); Bilirubin Total 0.3 mg/dL (0.2-1.0); Potassium 4.2 mmol/L (3.5-5.1); Protein, Total 8.7 g/dL (6.4-8.2)
[2022-06-07] MEDS ORDERED: HYDROMORPHONE HCL 1 MG/ML INJ ONE (01:22)
[2022-06-07] MEDS ORDERED: ONDANSETRON 4 MG (ODT) TAB ONE (02:37)
[2022-06-07 06:04] LABS: Urine Blood Trace-lysed (Negative); Urine Glucose Negative (Negative); Urine Protein 1+ (Negative); Urine Specific Gravity 1.025 (1.005-1.030); Urine pH 5.5 (5.0-7.0)
[2022-06-07] MEDS ORDERED: MEPERIDINE HCL 25 MG/ML SYR ONE (06:26)
[2022-06-07] MEDS ORDERED: CEPHALEXIN 250 MG CAP ONE (06:27)
--- NOTE | 2022-06-07 06:34 | ER ---
Nurse's Notes [facility] Name: Ara Mercado Age: 37 yrs Sex: Female : 1985 Arrival Date: 06/06/2022 Time: 18:14 Bed 13 Private MD: Diagnosis: Low back pain Presentation: 06/06 18:38 Chief complaint: Patient states: low back pain since last time she as here on the , iw was diagnosed with a kidney infection at that time, was put on antibiotics, is still having pain/burning with urination. Coronavirus screen: At this time, the client does not indicate any symptoms associated with coronavirus-19. Ebola Screen: Patient negative for fever greater than or equal to 101.5 degrees Fahrenheit, and additional compatible Ebola Virus Disease symptoms Patient denies exposure to infectious person. Patient denies travel to an Ebola-affected area in the 21 days before illness onset. No symptoms or risks identified at this time. Initial Sepsis Screen: Does the patient meet any 2 criteria? No. Patient's initial sepsis screen is negative. Does the patient have a suspected source of infection? No. Patient's initial sepsis screen is negative. Risk Assessment: Do you want to hurt yourself or someone else? Patient reports no desire to harm self or others. Onset of symptoms was June 06, 2022. 18:38 Method Of Arrival: Ambulatory iw 18:38 Acuity: CHARISSA 3 iw Triage Assessment: 23:57 General: Appears in no apparent distress. Behavior is calm, cooperative. Neuro: Level kd3 of Consciousness is awake, alert, obeys commands, Oriented to person, place, time, situation. Respiratory: Airway is patent Trachea midline Respiratory effort is even, unlabored, Respiratory pattern is regular, symmetrical. 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 - Social history:: Smoking status: Patient reports the use of cigarette tobacco products. Screenin:56 Abuse screen: Denies threats or abuse. Denies injuries from another. Nutritional kd3 screening: No deficits noted. Tuberculosis screening: No symptoms or risk factors identified. Fall Risk IV access (20 points). Assessment: 23:56 Pain: Complains of pain in abdomen. kd3 Vital Signs: 18:38 BP 130 / 85; Pulse 92; Resp 16; Temp 98.6; Pulse Ox 100% ; Weight 77.11 kg; Height 5 iw ft. 2 in. (157.48 cm); Pain 8/10; 21:38 BP 154 / 81; Pulse 83; Resp 16; Pulse Ox 100% ; vc1 23:56 BP 135 / 82; Pulse 86; Resp 19; Pulse Ox 100% ; kd3 06/07 00:45 BP 151 / 91; Pulse 87; Resp 16; Pulse Ox 100% on R/A; kd3 04:05 BP 125 / 71; Pulse 84; Resp 18; Pulse Ox 100% ; kd3 05:10 BP 131 / 72; Pulse 79; Resp 18; Pulse Ox 100% on R/A; kd3 06:08 BP 132 / 81; Pulse 82; Resp 18; Pulse Ox 99% on R/A; kd3 06/06 18:38 Body Mass Index 31.09 (77.11 kg, 157.48 cm) iw ED Course: 06/06 18:14 Patient arrived in ED. am2 18:31 Rashad Sandoval PA is PHCP. cp 18:31 Luis Carlos Jimenez MD is Attending Physician. cp 18:39 Triage completed. iw 18:40 Arm band placed on. iw 19:43 Lora Victor, RN is Primary Nurse. vc1 20:27 Initial lab(s) drawn, by wi, sent to lab. Inserted saline lock: 20 gauge in right tw5 forearm, using aseptic technique. Blood collected. Ultrasound Guided IV. 23:56 Patient has correct armband on for positive identification. kd3 23:56 No provider procedures requiring assistance completed. kd3 06/07 01:50 CT Stone Protocol In Process Unspecified. EDMS 05:35 Attending Physician role handed off by Luis Carlos Jimenez MD 7 05:35 Papito Castro MD is Attending Physician. 7 06:33 Macro Ferrera DO is Referral Physician. 7 06:47 IV discontinued, intact, bleeding controlled, No redness/swelling at site. Pressure kd3 dressing applied. Administered Medications: 06/06 20:41 Drug: fentaNYL (PF) 25 mcg Route: IVP; Site: right antecubital; vc1 21:34 Drug: Dilaudid (HYDROmorphone) 1 mg Route: IVP; Site: right antecubital; vc1 21:34 Drug: Pepcid (famotidine) 20 mg Route: IVP; Site: right antecubital; vc1 06/07 01:17 CANCELLED (no iv acesss): Dilaudid (HYDROmorphone) 1 mg IVP once kd3 01:23 Drug: Dilaudid (HYDROmorphone) 1 mg Route: IM; Site: left vastus lateralis; kd3 06:48 Follow up: Response: No adverse reaction kd3 02:31 Drug: Zofran (Ondansetron) 4 mg Route: PO; kd3 06:48 Follow up: Response: No adverse reaction kd3 06:25 Drug: Demerol (meperidine) 25 mg Route: IM; Site: left vastus lateralis; kd3 06:48 Follow up: Response: No adverse reaction kd3 06:25 Drug: KeFLEX (cephalexin) 500 mg Route: PO; kd3 06:47 Follow up: Response: No adverse reaction kd3 Medication: 06/06 23:56 VIS not applicable for this client. kd3 Outcome: 06/07 06:33 Discharge ordered by . [facility] 06:47 Discharged to home ambulatory. kd3 06:47 Condition: stable 06:47 Discharge instructions given to patient, Instructed on discharge instructions, follow up and referral plans. Demonstrated understanding of instructions, follow-up care, Prescriptions given X 4. 06:48 Patient left the ED. kd3 Signatures: Dispatcher [employer] EDMS Lyndsay Zuluaga RN RN iw Page, Corey, PA PA cp Moreno, Amanda amPapito Jiménez MD MD [id number] Marissa Wilkins tw5 Jamilah Forde RN RN kd3 Lora Victor RN RN vc1
--- NOTE | 2022-06-07 06:34 | EDPHYS ---
Physician Documentation [facility] Name: Ara Mercado Age: 37 yrs Sex: Female : 1985 Arrival Date: 06/06/2022 Time: 18:14 Bed 13 Private MD: ED Physician Papito Castro HPI: 06/06 19:00 This 37 yrs old Female presents to ER via Ambulatory with complaints of Low Back Pain. cp 19:00 The patient presents with pain that is acute, with no known mechanism of injury. cp 19:00 The symptoms are located in the low back. The pain does not radiate. Associated signs cp and symptoms: Pertinent negatives: constipation, fever, incontinence, numbness, urinary retention, weakness. 19:00 The patient has been recently seen at the [facility] Emergency cp Department, for similar complaints labs were performed, CT scan was performed, was given a prescription for antibiotics, patient reports continued low back pain since visit on 05-28-2022. 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 - Social history:: Smoking status: Patient reports the use of cigarette tobacco products. ROS: 19:05 Constitutional: Negative for body aches, chills, fever, poor PO intake. cp 19:05 Eyes: Negative for injury, pain, redness, and discharge. cp 19:05 ENT: Negative for drainage from ear(s), ear pain, sore throat, difficulty swallowing, difficulty handling secretions. 19:05 Neck: Negative for pain with movement, pain at rest, stiffness. 19:05 Cardiovascular: Negative for chest pain, edema, palpitations. 19:05 Respiratory: Negative for cough, shortness of breath, wheezing. 19:05 Back: Positive for pain at rest, pain with movement, of the low back area and mid back area. 19:05 : Negative for bladder incontinence. 19:05 Skin: Negative for cellulitis, rash. 19:05 Neuro: Negative for altered mental status, dizziness, headache, numbness, tingling, weakness. 19:05 All other systems are negative. Exam: 19:10 Constitutional: The patient appears in no acute distress, alert, awake, non-toxic, well cp developed, well nourished, obese. 19:10 Head/Face: Normocephalic, atraumatic. cp 19:10 Eyes: Periorbital structures: appear normal, Conjunctiva: normal, no exudate, no injection, Sclera: no appreciated abnormality, Lids and lashes: appear normal, bilaterally. 19:10 ENT: External ear(s): are unremarkable, Nose: is normal, Mouth: Lips: moist, Oral mucosa: pink and intact, moist, Posterior pharynx: Airway: no evidence of obstruction, patent. 19:10 Chest/axilla: Inspection: normal. 19:10 Cardiovascular: Rate: normal. 19:10 Respiratory: the patient does not display signs of respiratory distress, Respirations: normal, no use of accessory muscles, no retractions, labored breathing, is not present, Breath sounds: are clear throughout, no decreased breath sounds, no stridor, no wheezing. 19:10 Abdomen/GI: Inspection: abdomen appears normal, Palpation: abdomen is soft and non-tender, in all quadrants. 19:10 Back: pain, that is moderate, of the low back area and mid back area, ROM is painful, with all movement. 19:10 Skin: cellulitis, is not appreciated, no rash present. 19:10 Neuro: Orientation: to person, place \T\ time. Mentation: is normal, Motor: moves all fours, strength is normal. Vital Signs: 18:38 BP 130 / 85; Pulse 92; Resp 16; Temp 98.6; Pulse Ox 100% ; Weight 77.11 kg; Height 5 iw ft. 2 in. (157.48 cm); Pain 8/10; 21:38 BP 154 / 81; Pulse 83; Resp 16; Pulse Ox 100% ; vc1 23:56 BP 135 / 82; Pulse 86; Resp 19; Pulse Ox 100% ; kd3 07/15 00:45 BP 151 / 91; Pulse 87; Resp 16; Pulse Ox 100% on R/A; kd3 04:05 BP 125 / 71; Pulse 84; Resp 18; Pulse Ox 100% ; kd3 05:10 BP 131 / 72; Pulse 79; Resp 18; Pulse Ox 100% on R/A; kd3 06:08 BP 132 / 81; Pulse 82; Resp 18; Pulse Ox 99% on R/A; kd3 06/06 18:38 Body Mass Index 31.09 (77.11 kg, 157.48 cm) iw MDM: 06/06 19:36 Patient medically screened. cp 21:00 Differential diagnosis: fracture, sciatica, Herniated disc UTI, pyelonephritis. cp 06/07 06:29 Data reviewed: vital signs, nurses notes, old medical records, lab test result(s), CBC, mh7 electrolytes, urinalysis, UPT: negative radiologic studies, CT scan. Data interpreted: Pulse oximetry: on room air is 99 %. Interpretation: normal. Counseling: I had a detailed discussion with the patient and/or guardian regarding: the historical points, exam findings, and any diagnostic results supporting the discharge/admit diagnosis, lab results, radiology results, the need for outpatient follow up, to return to the emergency department if symptoms worsen or persist or if there are any questions or concerns that arise at home. Response to treatment: the patient's symptoms have markedly improved after treatment. ED course: Feels better, well appearing, NAD, VSS, no focal neurological deficits. Tolerating PO intake without difficulty. Discussed all test results and findings. Patient requests to be discharged home at this time.. 06/06 18:41 Order name: CBC with Diff; Complete Time: 20:53 iw 06/06 20:53 Interpretation: Normal except: WBC 13.7; PLT 566; MPV 7.2; NEUT A 9.9. cp 06/06 18:41 Order name: CMP; Complete Time: 01:31 iw 06/06 18:41 Order name: Lipase; Complete Time: 01:31 iw 06/06 18:56 Order name: Urine --Ancillary (enter results); Complete Time: 20:53 ds4 06/06 18:57 Order name: Urine Dipstick-Ancillary; Complete Time: 20:53 EDMS 06/06 22:33 Interpretation: Normal except: UBLD 2+; UPROT 2+. cp 06/06 22:32 Order name: Urine Microscopic Only; Complete Time: 01:08 cp 06/07 01:09 Interpretation: Normal except: URBC 5-10. 06/07 00:28 Order name: Urine Culture EDIL 06/07 01:09 Order name: CT Stone Protocol 06/07 01:38 Order name: Glucose, Ancillary Testing; Complete Time: 04:19 EDMS 06/07 06:04 Order name: Urine Dipstick-Ancillary; Complete Time: 06:07 EDMS 06/07 06:09 Order name: Urine Culture 7 06/07 06:29 Order name: Urine Microscopic Only EDIL 06/06 18:41 Order name: IV Saline Lock; Complete Time: 20:29 iw 06/06 18:41 Order name: Labs collected and sent; Complete Time: 20:29 iw 06/06 18:41 Order name: Urine Dipstick-Ancillary (obtain specimen); Complete Time: 18:56 iw 06/06 18:41 Order name: Urine Test (obtain specimen); Complete Time: 18:56 06/07 01:13 Order name: CT Abd/Pelvis - Without Contrast ds4 Administered Medications: 06/06 20:41 Drug: fentaNYL (PF) 25 mcg Route: IVP; Site: right antecubital; vc1 21:34 Drug: Dilaudid (HYDROmorphone) 1 mg Route: IVP; Site: right antecubital; vc1 21:34 Drug: Pepcid (famotidine) 20 mg Route: IVP; Site: right antecubital; vc1 06/07 01:17 CANCELLED (no iv acesss): Dilaudid (HYDROmorphone) 1 mg IVP once kd3 01:23 Drug: Dilaudid (HYDROmorphone) 1 mg Route: IM; Site: left vastus lateralis; kd3 06:48 Follow up: Response: No adverse reaction kd3 02:31 Drug: Zofran (Ondansetron) 4 mg Route: PO; kd3 06:48 Follow up: Response: No adverse reaction kd3 06:25 Drug: Demerol (meperidine) 25 mg Route: IM; Site: left vastus lateralis; kd3 06:48 Follow up: Response: No adverse reaction kd3 06:25 Drug: KeFLEX (cephalexin) 500 mg Route: PO; kd3 06:47 Follow up: Response: No adverse reaction kd3 Disposition: 16:01 Attestation: The patient's history, exam findings, diagnostics, and a summary of any [facility] interventions or procedures was reviewed in detail with Rashad COOPER. Disposition Summary: 06/07/22 06:33 Discharge Ordered Location: Home [facility] Problem: an acute exacerbation [facility] Symptoms: have improved [facility] Condition: Stable [facility] Diagnosis - Low back pain [facility] Followup: [facility] - With: Private Physician - When: 1 - 2 days - Reason: Worsening of condition, Recheck today's complaints, Continuance of care, Re-evaluation by your physician Followup: [facility] - With: Marco Ferrera DO - When: 1 - 2 days - Reason: Worsening of condition, Recheck today's complaints Discharge Instructions: - Discharge Summary Sheet [facility] - Acute Back Pain, Adult [facility] Forms: - Medication Reconciliation Form [facility] - Thank You Letter [facility] - Antibiotic Education [facility] - Prescription Opioid Use [facility] - Work release form eb Prescriptions: - Cephalexin 500 mg Oral Capsule - take 1 capsule by ORAL route every 12 hours for 10 days; 20 capsule; Refills: [facility] 0, Product Selection Permitted - Reglan 10 mg Oral Tablet - take 1 tablet by ORAL route every 6-8 hours As needed take 30 minutes before [facility] meals and at bedtime; 12 tablet; Refills: 0, Product Selection Permitted - Cyclobenzaprine 10 mg Oral Tablet - take 1 tablet by ORAL route every 8 hours As needed; 30 tablet; Refills: 0, 7 Product Selection Permitted - Diclofenac Sodium 75 mg Oral Tablet Sustained Release - take 1 tablet by ORAL route 2 times per day; 30 tablet; Refills: 0, Product [facility] Selection Permitted Signatures: Dispatcher [employer] EDIL Lyndsay Zuluaga RN Rashad Gaston PA PA cp Holmes, Maurice, MD MD 7 Jamilah Forde RN RN kd3 Lora Victor RN RN vc1 Luis Carlos Jimenez MD MD [id number] Pavithra Ocasio PA PA [id number] Corrections: (The following items were deleted from the chart) 01:17 07 20:56 Abdomen Pelvis W Con+CT.RAD.BRZ ordered. EDIL EDIL 06/07 01:17 01:14 Dilaudid (HYDROmorphone) 1 mg IVP once ordered. kd3 kd3
[2022-06-07 06:43] LABS: Urine RBC 0 /HPF (None Seen)
[2022-06-07 06:44] LABS: Urine Bacteria <20 /HPF (<20)
[2022-06-07 07:02] VITALS: TEMP 98.6
[2022-06-07 07:23] VITALS: BP 132/81; O2SAT 99
--- NOTE | 2022-06-08 19:06 | RAD REPORT ---
EXAM DESCRIPTION: CT - Stone Protocol - 06/07/2022 7:40 am CLINICAL HISTORY: The patient is 37 years old and is Female; back pain TECHNIQUE: Axial computed tomography images of the abdomen and pelvis without intravenous contrast. Sagittal and coronal reformatted images were created and reviewed. This CT exam was performed usi ng one or more of the following dose reduction techniques: automated exposure control, adjustment o f the mA and/or kV according to patient size, and/or use of iterative reconstruction technique. COMPARISON: April 26, 2022. FINDINGS: Lung bases: Unremarkable. No mass. No consolidation. ABDOMEN: Liver: Unremarkable. Gallbladder and bile ducts: Unremarkable. No calcified stones. No ductal dilation. Pancreas: Unremarkable. No ductal dilation. Spleen: Unremarkable. No splenomegaly. Adrenals: Unremarkable. No mass. Kidneys and ureters: No nephrolithiasis, hydronephrosis or ureter stone. Stomach and bowel: No bowel dilatation or obstruction. No bowel wall thickening. PELVIS: Appendix: The visualized appendix is normal. No pericecal inflammation to suggest acute appendici tis. Bladder: Unremarkable. No stones. Reproductive: Tampon in the vagina. No adnexal mass. ABDOMEN and PELVIS: Intraperitoneal space: Unremarkable. No free air. No significant fluid collection. Bones/joints: L5-S1 posterior osteophytes. No acute fracture. No dislocation. Soft tissues: Unremarkable. Vasculature: Unremarkable. No abdominal aortic aneurysm. Lymph nodes: No pathologically enlarged lymph nodes. IMPRESSION: No nephrolithiasis, hydronephrosis or ureter stone. Electronically signed by: Marina Mera MD 06/07/2022 5:14 AM CDT Due to temporary technical issues with the PACS/Fluency reporting system, reports are being signed by the in house radiologists without review as a courtesy to insure prompt reporting. The interpreting radiologist is fully responsible for the content of the report.
== END 2022-06-07 06:48 | disposition home or self-care (01) ==
LOC: ER 18:14
DX: M54.50 Low back pain, unspecified (principal); E11.9 Type 2 diabetes mellitus without complications; Z72.0 Tobacco use; Z88.1 Allergy status to other antibiotic agents; Z88.5 Allergy status to narcotic agent
CPT/HCPCS: 36415; 74176; 76377; 80053; 81003; 81015; 81025; 82947; 83690; 85025; 87086; 87088; 96372; 96374; 96375; 99284; J1170; J2175; J3010; J3490; Q0162

== ENCOUNTER 2022-06-17 19:06 | Inpatient (IN) | payer SELFPAY ==
--- NOTE | 2022-06-17 22:04 | RAD REPORT ---
EXAM DESCRIPTION: RAD - Chest Single View - 06/17/2022 9:45 pm CLINICAL HISTORY: CHEST PAIN COMPARISON: March 05 TECHNIQUE: AP portable chest image was obtained 06/17/2022 9:45 pm . FINDINGS: Lungs are clear. Heart and vasculature are normal. No measurable pleural effusion and no p neumothorax. No acute bony abnormality seen. No acute aortic findings suspected. IMPRESSION: No acute cardiopulmonary process. No significant change from comparison study.
[2022-06-17] MEDS ORDERED: NA CHLORIDE 0.9% 1,000 ML ONE (22:37)
[2022-06-17] MEDS ORDERED: MEPERIDINE HCL 25 MG/ML SYR ONE ×2 (23:00→23:49)
[2022-06-17] MEDS ORDERED: ONDANSETRON 4 MG/2 ML VIAL ONE (23:00)
[2022-06-17 23:01] LABS: Absolute Lymphocytes (CBC) 2.5 K/uL (0.7-4.9); Lymphocytes % 17.1 % (15.3-44.8); MCV 89.8 fL (80-100); MPV 7.6 fL (7.6-11.3); RBC Red Blood Cell Count 4.23 M/uL (3.86-4.86)
[2022-06-17] MEDS ORDERED: FAMOTIDINE 20 MG/2 ML VIAL IV ONE (23:04)
[2022-06-17 23:13] LABS: Urine Blood Negative (Negative); Urine Glucose 3+ (Negative); Urine Protein 1+ (Negative); Urine Specific Gravity 1.015 (1.005-1.030); Urine pH 5.5 (5.0-7.0)
[2022-06-17 23:30] LABS: Potassium 3.7 mmol/L (3.5-5.1)
[2022-06-17 23:42] LABS: Troponin High Sensitivity 101.9 pg/mL (<58.9)
--- NOTE | 2022-06-18 00:09 | EDPHYS ---
Physician Documentation [facility] Name: Ara Mercado Age: 37 yrs Sex: Female : 1985 Arrival Date: 06/17/2022 Time: 19:10 Bed 26 Private MD: ED Physician Brannon Cooper HPI: 06/18 00:04 This 37 yrs old Female presents to ER via Ambulatory with complaints of Chest Pressure, kdr Abdominal Pain, Back Pain, Nausea. 00:04 Patient presents today with chest pressure abdominal pain that began earlier today. He kdr last for about 30 minutes. She is also vomited a few times today. Last Friday, she was diagnosed with COVID. She denies any fever or any cough or congestion. She denies any other specific complaints. She has had multiple ED visits for abdominal pain and back pain but she states nothing exactly like this. Onset: The symptoms/episode began/occurred today. Severity of symptoms: At their worst the symptoms were mild moderate just prior to arrival, in the emergency department the symptoms are unchanged. The patient has not experienced similar symptoms in the past. The patient has not recently seen a physician. 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 - Social history:: Smoking status: Patient denies any tobacco usage or history of. ROS: 06/18 00:04 Constitutional: Negative for fever, chills, and weight loss, Eyes: Negative for injury, kdr pain, redness, and discharge, ENT: Negative for injury, pain, and discharge, Neck: Negative for injury, pain, and swelling, Respiratory: Negative for shortness of breath, cough, wheezing, and pleuritic chest pain, Back: Negative for injury and pain, : Negative for injury, bleeding, discharge, and swelling, MS/Extremity: Negative for injury and deformity, Skin: Negative for injury, rash, and discoloration, Neuro: Negative for headache, weakness, numbness, tingling, and seizure activity. Psych: Negative for depression, anxiety, suicide ideation, homicidal ideation, and hallucinations, Allergy/Immunology: Negative for hives, rash, and allergies, Endocrine: Negative for neck swelling, polydipsia, polyuria, polyphagia, and marked weight changes, Hematologic/Lymphatic: Negative for swollen nodes, abnormal bleeding, and unusual bruising. Cardiovascular: Positive for chest pain, Negative for edema, orthopnea, palpitations, paroxysmal nocturnal dyspnea. Abdomen/GI: Positive for abdominal pain, nausea and vomiting, of the epigastric area, right upper quadrant and left upper quadrant, Negative for Exam: 06/17 23:55 ECG was reviewed by the Attending Physician. kdr 06/18 00:04 Constitutional: This is a well developed, well nourished patient who is awake, alert, kdr and in no acute distress. Head/Face: Normocephalic, atraumatic. Eyes: Pupils equal round and reactive to light, extra-ocular motions intact. Lids and lashes normal. Conjunctiva and sclera are non-icteric and not injected. Cornea within normal limits. Periorbital areas with no swelling, redness, or edema. Neck: Trachea midline, no thyromegaly or masses palpated, and no cervical lymphadenopathy. Supple, full range of motion without nuchal rigidity, or vertebral point tenderness. No Meningismus. Chest/axilla: Normal chest wall appearance and motion. Nontender with no deformity. No lesions are appreciated. Cardiovascular: Regular rate and rhythm with a normal S1 and S2. No gallops, murmurs, or rubs. Normal PMI, no JVD. No pulse deficits. Respiratory: Lungs have equal breath sounds bilaterally, clear to auscultation and percussion. No rales, rhonchi or wheezes noted. No increased work of breathing, no retractions or nasal flaring. Abdomen/GI: Soft, non-tender, with normal bowel sounds. No distension or tympany. No guarding or rebound. No evidence of tenderness throughout. Back: No spinal tenderness. No costovertebral tenderness. Full range of motion. Skin: Warm, dry with normal turgor. Normal color with no rashes, no lesions, and no evidence of cellulitis. MS/ Extremity: Pulses equal, no cyanosis. Neurovascular intact. Full, normal range of motion. Neuro: Awake and alert, GCS 15, oriented to person, place, time, and situation. Cranial nerves II-XII grossly intact. Motor strength 5/5 in all extremities. Sensory grossly intact. Cerebellar exam normal. Normal gait. Psych: Awake, alert, with orientation to person, place and time. Behavior, mood, and affect are within normal limits. Vital Signs: 06/17 19:26 BP 135 / 89; Pulse 108; Resp 18; Temp 98.2(TE); Pulse Ox 99% on R/A; Weight 77.11 kg; 1 Height 5 ft. 2 in. (157.48 cm); Pain 8/10; 22:20 BP 139 / 86; Pulse 89; Resp 20 S; Pulse Ox 100% on R/A; as6 23:47 BP 128 / 73; Pulse 90; Resp 18; Pulse Ox 100% on R/A; kd3 19:26 Body Mass Index 31.09 (77.11 kg, 157.48 cm) [facility] MDM: 06/18 00:04 Data reviewed: vital signs, nurses notes, lab test result(s), radiologic studies. kdr Counseling: I had a detailed discussion with the patient and/or guardian regarding: the historical points, exam findings, and any diagnostic results supporting the discharge/admit diagnosis, lab results, radiology results, the need for further work-up and treatment in the hospital. Medical screen evaluation completed. [facility] emergency medical condition absent. 00:08 Patient medically screened. [facility] 06/17 21:56 Order name: Basic Metabolic Panel; Complete Time: 00:22 kdr 06/17 21:56 Order name: CBC with Diff; Complete Time: 00:22 kdr 06/17 21:56 Order name: NT PRO-BNP; Complete Time: 00:22 kdr 06/17 21:56 Order name: Troponin HS; Complete Time: 00:22 kdr 06/17 23:13 Order name: Urine Dipstick-Ancillary; Complete Time: 00:22 EDMS 06/17 23:43 Order name: Urine Microscopic Only; Complete Time: 00:22 kd3 06/17 23:43 Order name: Urine Culture 3 06/18 01:26 Order name: SARS RAPID; Complete Time: 02:21 as6 06/18 03:18 Order name: Hemoglobin A1c; Complete Time: 03:31 EDOH 06/18 03:21 Order name: Creatine Phosphokinase; Complete Time: 05:06 EDMS 06/18 03:21 Order name: CKMB Creatine Kinase MB; Complete Time: 05:06 EDMS 06/18 03:21 Order name: Troponin High Sensitivity; Complete Time: 05:06 EDMS 06/18 03:21 Order name: Lipid Profile; Complete Time: 05:06 EDMS 06/18 03:21 Order name: C-Reactive Protein; Complete Time: 05:06 EDMS 06/17 21:04 Order name: Chest Single View XRAY; Complete Time: 00:22 lp1 06/18 03:21 Order name: Thyroid Stimulating Hormone; Complete Time: 05:06 EDMS 06/18 03:30 Order name: Sedimentation Rate, Westergren; Complete Time: 03:31 EDMS 06/18 03:34 Order name: T4 Free; Complete Time: 05:06 EDMS 06/18 06:33 Order name: Glucose, Ancillary Testing; Complete Time: 21:57 EDMS 06/18 12:10 Order name: Troponin High Sensitivity; Complete Time: 21:57 EDMS 06/18 12:12 Order name: Glucose, Ancillary Testing; Complete Time: 21:57 EDMS 06/18 13:14 Order name: CT; Complete Time: 21:57 EDMS 06/18 16:41 Order name: Glucose, Ancillary Testing; Complete Time: 21:57 EDMS 06/18 21:11 Order name: Glucose, Ancillary Testing; Complete Time: 21:57 EDMS 06/19 07:51 Order name: Glucose, Ancillary Testing EDOH 06/17 21:56 Order name: EKG; Complete Time: 21:57 kdr 06/17 21:56 Order name: Cardiac monitoring; Complete Time: 22:19 kdr 06/17 21:56 Order name: EKG - Nurse/Tech; Complete Time: 22: kdr 06/17 21:56 Order name: IV Saline Lock; Complete Time: :42 kdr 06/17 21:56 Order name: Labs collected and sent; Complete Time: 22:42 kdr 06/17 21:56 Order name: O2 Per Protocol; Complete Time: 22:09 kdr 06/17 21:56 Order name: O2 Sat Monitoring; Complete Time: 22: kdr 06/17 23:52 Order name: EKG - Nurse/Tech; Complete Time: 00:01 lp1 EC/25 23:55 Rate is 85 beats/min. Rhythm is regular, Normal Sinus Rhythm with No ectopy. QRS [place] kdr is Normal. MD interval is normal. QRS interval is normal. QT interval is normal. Clinical impression: Normal ECG. Administered Medications: 22:42 Drug: NS 0.9% 1000 ml Route: IV; Rate: 1 bolus; Site: right forearm; kd3 22:55 Drug: Demerol (meperidine) 25 mg Route: IVP; Site: right forearm; kd3 22:55 Drug: Zofran (Ondansetron) 4 mg Route: IVP; Site: right forearm; kd3 22:59 Drug: Pepcid (famotidine) 20 mg Route: IVP; Site: right forearm; kd3 23:44 Drug: Demerol (meperidine) 25 mg Route: IVP; Site: right forearm; kd3 06/18 00:09 Drug: Aspirin Chewable Tablet 324 mg Route: PO; kd3 00:09 Drug: Lopressor (metoprolol TARTRATE)) 25 mg Route: PO; kd3 Disposition Summary: 06/18/22 00:08 Hospitalization Ordered Hospitalization Status: Inpatient Admission kdr Condition: Fair kdr Problem: new kdr Symptoms: have improved kdr Bed/Room Type: Standard kdr Provider: Shen Mishra(06/18/22 01:25) kdr Location: Telemetry/MedSurg (Inpatient)(06/19/22 07:30) bd Room Assignment: 221(06/19/22 07:30) bd Diagnosis - Subsequent non-ST elevation (NSTEMI) myocardial infarction kdr - Unstable angina kdr Forms: - Medication Reconciliation Form kdr - SBAR form kdr Signatures: Dispatcher [employer] EDMS Lynn Egan bd Brannon Cooper MD MD kdr Nat Snider RN RN lp1 Roxana Santiago RN RN cg Jamilah Forde RN RN kd3 Pavithra Ocasio PA PA sb3 Lynn Vera, RN RN bh1 Corrections: (The following items were deleted from the chart) 01:25 00:08 Abe Lemons kdr kdr 01:38 00:08 Telemetry/MedSurg (Inpatient) kdr cg 01:38 00:08 kdr cg 0706/18 01:38 [facility] ER HOLD cg bd 06/19 01:38 ERHOLD- cg bd
--- NOTE | 2022-06-18 00:09 | ER ---
Nurse's Notes [facility] Name: Ara Mercado Age: 37 yrs Sex: Female : 1985 Arrival Date: 06/17/2022 Time: 19:10 Bed 26 Private MD: Diagnosis: Subsequent non-ST elevation (NSTEMI) myocardial infarction;Unstable angina Presentation: 06/17 19:26 Chief complaint: Patient states: CHEST PRESSURE FOR LAST 30 MINUTES, HAS BEEN VOMITING bh1 TODAY AND WAS DIAGNOSED WITH COVID LAST FRIDAY. Coronavirus screen: Vaccine status: Patient reports receiving the 2nd dose of the covid vaccine. Client reports previous positive COVID test result. Date of collection: June 14, 2022. Ebola Screen: Patient negative for fever greater than or equal to 101.5 degrees Fahrenheit, and additional compatible Ebola Virus Disease symptoms. Initial Sepsis Screen: Does the patient meet any 2 criteria? No. Patient's initial sepsis screen is negative. Does the patient have a suspected source of infection? No. Patient's initial sepsis screen is negative. Risk Assessment: Do you want to hurt yourself or someone else? Patient reports no desire to harm self or others. Onset of symptoms was June 17, 2022. 19:26 Method Of Arrival: Ambulatory [facility] 19:26 Acuity: CHARISSA 3 [facility] Triage Assessment: 19:28 General: Appears in no apparent distress. uncomfortable, Behavior is calm, cooperative, [facility] appropriate for age. Pain: Complains of pain in xiphoid area and mid-sternal area. Cardiovascular: No deficits noted. 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 - Social history:: Smoking status: Patient denies any tobacco usage or history of. Screenin:48 Abuse screen: Denies threats or abuse. Denies injuries from another. Nutritional kd3 screening: No deficits noted. Tuberculosis screening: No symptoms or risk factors identified. Fall Risk None identified. Assessment: 22:49 Pain: Pain does not radiate. Pain began gradually. kd3 Vital Signs: 19:26 BP 135 / 89; Pulse 108; Resp 18; Temp 98.2(TE); Pulse Ox 99% on R/A; Weight 77.11 kg; bh1 Height 5 ft. 2 in. (157.48 cm); Pain 8/10; 22:20 BP 139 / 86; Pulse 89; Resp 20 S; Pulse Ox 100% on R/A; as6 23:47 BP 128 / 73; Pulse 90; Resp 18; Pulse Ox 100% on R/A; kd3 19:26 Body Mass Index 31.09 (77.11 kg, 157.48 cm) 1 ED Course: 19:10 Patient arrived in ED. ja2 19:27 Brannon Cooper MD is Attending Physician. kdr 19:28 Triage completed. 1 19:28 Arm band placed on right wrist. 1 21:47 Chest Single View XRAY In Process Unspecified. EDMS 21:52 Jamilah Forde, VÍCTOR is Primary Nurse. kd3 22:42 Basic Metabolic Panel Sent. kd3 22:42 CBC with Diff Sent. kd3 22:42 NT PRO-BNP Sent. kd3 22:42 Troponin HS Sent. kd3 22:48 No provider procedures requiring assistance completed. Patient maintains SpO2 kd3 saturation greater than 95% on room air. 22:49 Patient has correct armband on for positive identification. Client placed on continuous kd3 cardiac and pulse oximetry monitoring. NIBP monitoring applied. 22:49 Inserted saline lock: 22 gauge in right forearm, using aseptic technique. Blood kd3 collected. 06/18 00:07 Abe Lemons MD is Hospitalizing Provider. kdr 00:54 Accessed peripheral vein via ultrasound, utilizing dynamic ultrasound technique using lp1 ,sterile technique, per hospital protocol. Clean \T\ dry. Dressing intact. Good blood return. Flushes easily. 20g IV to L AC. 01:25 Shen Mishra is Hospitalizing Provider. kdr 06/19 08:10 Patient admitted, IV remains in place. ha1 Administered Medications: 06/17 22:42 Drug: NS 0.9% 1000 ml Route: IV; Rate: 1 bolus; Site: right forearm; kd3 22:55 Drug: Demerol (meperidine) 25 mg Route: IVP; Site: right forearm; kd3 22:55 Drug: Zofran (Ondansetron) 4 mg Route: IVP; Site: right forearm; kd3 22:59 Drug: Pepcid (famotidine) 20 mg Route: IVP; Site: right forearm; kd3 23:44 Drug: Demerol (meperidine) 25 mg Route: IVP; Site: right forearm; kd3 06/18 00:09 Drug: Aspirin Chewable Tablet 324 mg Route: PO; kd3 00:09 Drug: Lopressor (metoprolol TARTRATE)) 25 mg Route: PO; kd3 Medication: 06/17 22:49 VIS not applicable for this client. kd3 Outcome: 06/18 00:08 Decision to Hospitalize by Provider. [facility] 06/19 08:09 Admitted to Med/surg accompanied by tech, via wheelchair, Report called to Joni ha1 08:10 Condition: stable ha1 08:11 Patient left the ED. ha1 Signatures: Dispatcher [employer] EDMS Brannon Cooper MD MD kdr Nat Snider RN RN lp1 Shasha Taylor Ashby, RN RN as6 Jamilah Forde RN RN kd3 [place] Restrepo RN RN ha1 Lynn Vera RN RN 1
[2022-06-18] MEDS ORDERED: ASPIRIN 81 MG CHEWABLE TABLET ONE (00:12)
[2022-06-18] MEDS ORDERED: METOPROLOL TAR 25 MG TAB ONE (00:12)
[2022-06-18 00:19] LABS: Urine Bacteria <20 /HPF (<20); Urine RBC <5 /HPF (None Seen)
--- NOTE | 2022-06-18 01:40 | P.HP ---
Certification for Inpatient Patient admitted to: Observation With expected LOS: <2 Midnights Patient will require the following post-hospital care: None Practitioner: I am a practitioner with admitting privileges, knowledge of patient current condition, hospital course, and medical plan of care. Services: Services provided to patient in accordance with Admission requirements found in Title 42 Section 412.3 of the Code of Federal Regulations Patient History Date of Service: 06/18/22 Reason for admission: Chest Pain History of Present Illness: Patient is a 37-year-old female with NIDDM who presented to the ED with complaints of chest pain that began 30 minutes prior to arrival. She reports the pain is midsternal and describes it as a pressure. She also complains of abdominal pain, nausea, vomiting, and back pain. She reports that she tested positive for COVID 3 days ago. Patient is frequently seen in the ED for abdominal pain and back pain, but states that this is different. Labs significant for WBC 14, creatinine 1.44, glucose 324, troponin HS 101.9. EKG shows NSR. She was given 324 mg aspirin and 25 mg Lopressor in ED. Patient reports that her chest pain is still present but has improved. ED provider wishes to admit patient for observation. Allergies ketorolac [From Toradol] Allergy (Verified 09/07/21 05:10) Anaphylaxis metronidazole [From Flagyl] Allergy (Verified 09/07/21 05:10) Anaphylaxis morphine Allergy (Verified 09/07/21 05:10) Anaphylaxis sulfamethoxazole [From Bactrim] Allergy (Verified 09/07/21 05:10) Anaphylaxis tramadol Allergy (Verified 09/07/21 05:10) Anaphylaxis trimethoprim [From Bactrim] Allergy (Verified 09/07/21 05:10) Anaphylaxis Home medications list reviewed: Yes - Past Medical/Surgical History Diabetic: Yes -: Type 2 Diabetes, Non-Insulin Dependent -: Cholecystectomy Psychosocial/ Personal History: Patient is . - Family History Father -: Heart disease - Social History Smoking Status: Never smoker Alcohol use: No CD- Drugs: No Caffeine use: Yes Place of Residence: Home Review of Systems Cardiovascular: Chest Pain Musculoskeletal: Back Pain, Leg Pain Physical Examination - Physical Exam General: Alert, In no apparent distress HEENT: Atraumatic, PERRLA, EOMI, Sclerae nonicteric Neck: Supple, Without JVD or thyroid abnormality Respiratory: Clear to auscultation bilaterally, Normal air movement Cardiovascular: No edema, Regular rate/rhythm, Normal S1 S2 Gastrointestinal: Normal bowel sounds, No tenderness Musculoskeletal: No tenderness Integumentary: No rashes Neurological: Normal speech, Normal strength at 5/5 x4 extr, Normal tone, Normal affect - Studies Laboratory Data (last 24 hrs) 06/17/22 22:40: WBC 14.3 H, Hgb 12.8, Hct 38.0, Plt Count 406 D 06/17/22 22:40: Sodium 136, Potassium 3.7, BUN 13, Creatinine 1.44 H, Glucose 324 H Assessment and Plan - Problems (Diagnosis) (1) Chest pain Current Visit: Yes Status: Acute Qualifiers: Chest pain type: unspecified Qualified Code(s): R07.9 - Chest pain, unspecified (2) Elevated troponin Current Visit: Yes Status: Acute (3) Type 2 diabetes mellitus Current Visit: Yes Status: Chronic Qualifiers: Diabetes mellitus jail insulin use: without predatory animal exterminator use Diabetes mellitus complication status: with hyperglycemia Qualified Code(s): E11.65 - Type 2 diabetes mellitus with hyperglycemia (4) COVID-19 Current Visit: Yes Status: Acute (5) ELAINE (acute kidney injury) Current Visit: Yes Status: Acute - Plan -Trend troponin q6h x 2 and check CPK and CKMB -Monitor on telemetry. Cardiology consulted -Therapeutic lovenox q12h -Gentle IV hydration for ELAINE -Patient reports testing positive for COVID 3 days ago. Tested negative here. Droplet precautions in place. -Moderate SS with diabetic diet. A1C pending -Aspirin and atorvastatin daily -Lipid panel and TSH pending -Reconcile and continue home medications -Lovenox for VTE ppx -Full code Discharge Plan: Home Plan to discharge in: 24 Hours - Advance Directives Does patient have a Living Will: No Does patient have a Durable POA for Healthcare: No - Code Status/Comfort Care Code Status Assessed: Yes (Full) Critical Care: No Time Spent Managing Pts Care (In Minutes): 50
[2022-06-18] MEDS ORDERED: HYDROMORPHONE HCL 0.5 MG/0.5 ML INJ IV PRN (01:45)
[2022-06-18] MEDS ORDERED: ACETAMINOPHEN 500 MG TAB PO PRN (01:45)
[2022-06-18 02:11] LABS: SARS-CoV-2 Antigen Rapid Res Negative (Negative)
[2022-06-18] MEDS ORDERED: CEFTRIAXONE 1,000 MG in NA CHLORIDE 0.9% 50 ML IVPB ONE (02:22)
[2022-06-18] MEDS: ONDANSETRON 4 MG/2 ML VIAL IV PRN ×4 (02:22→22:16)
[2022-06-18] MEDS ORDERED: HYDROMORPHONE HCL 0.5 MG/0.5 ML INJ ONE ×4 (02:24→22:20)
[2022-06-18] MEDS ORDERED: ONDANSETRON 4 MG/2 ML VIAL ONE ×4 (02:24→22:20)
[2022-06-18] MEDS: ENOXAPARIN 80 MG/0.8 ML SQ SCH ×3 (02:31→21:09)
[2022-06-18] MEDS ORDERED: ENOXAPARIN 80 MG/0.8 ML SQ ONE ×3 (02:35→21:15)
[2022-06-18] MEDS ORDERED: CEFTRIAXONE 1000 MG/VIAL ONE (02:41)
[2022-06-18 03:12] LABS: C-Reactive Protein 14.8 mg/L (<3.00); CKMB Creatine Kinase MB 1.4 ng/mL (1.0-3.6)
[2022-06-18 03:21] LABS: Thyroid Stimulating Hormone 11.2 uIU/mL (0.360-3.740); Troponin High Sensitivity 114.6 pg/mL (<58.9)
[2022-06-18 04:38] VITALS: BMI 31.1
[2022-06-18] MEDS ORDERED: HYDROCODONE/APAP 10/325 TAB ONE ×2 (05:41→11:28)
[2022-06-18] MEDS: NA CHLORIDE 0.9% 1,000 ML IV SCH ×2 (05:45→17:20)
[2022-06-18] MEDS ORDERED: NA CHLORIDE 0.9% 1,000 ML ONE (05:50)
[2022-06-18] MEDS: HYDROCODONE/APAP 10/325 TAB PO PRN ×2 (05:50→11:24)
[2022-06-18] MEDS: INSULIN -REGULAR HUMAN 50 UNIT/0.5 ML ML SQ SCH ×4 (07:30→21:00)
[2022-06-18] MEDS ORDERED: INSULIN -REGULAR HUMAN 50 UNIT/0.5 ML ML ONE ×2 (08:07→12:16)
[2022-06-18] MEDS: ASPIRIN EC 81 MG TAB PO SCH (09:00)
[2022-06-18] MEDS ORDERED: ASPIRIN EC 81 MG TAB PO ONE (10:10)
--- NOTE | 2022-06-18 12:37 | EKG ---
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
--- NOTE | 2022-06-18 13:12 | ECHO ---
HEIGHT: 5 ft 2 in WEIGHT: 169 lb 15.975 oz DATE OF STUDY: 06/18/[address]: Pavithra Ocasio 2-DIMENSIONAL: YES M.MODE: YES DOPPLER: YES COLOR FLOW: YES TDS: NO PORTABLE: YES DEFINITY: NO BUBBLE STUDY: NO DIAGNOSIS: CHEST PAIN, ELEVATED TROPONIN CARDIAC HISTORY: CATHERIZATION: SURGERY: PROSTHETIC VALVE: PACEMAKER: MEASUREMENTS (cm) DIASTOLIC (NORMALS) SYSTOLIC (NORMALS) IVSd 0.9 (0.6-1.2) LA Diam 3.3 (1.9-4.0) LVEF 55% LVIDd 3.9 (3.5-5.7) LVIDs 2.8 (2.0-3.5) %FS 28% LVPWd 1.0 (0.6-1.2) Ao Diam 2.7 (2.0-3.7) 2 DIMENSIONAL ASSESSMENT: RIGHT ATRIUM: NORMAL LEFT ATRIUM: NORMAL RIGHT VENTRICLE: NORMAL LEFT VENTRICLE: NORMAL TRICUSPID VALVE: MITRAL VALVE: PULMONIC VALVE: NORMAL AORTIC VALVE: NORMAL PERICARDIAL EFFUSION: NONE AORTIC ROOT: NORMAL LEFT VENTRICULAR WALL MOTION: NORMAL DOPPLER/COLOR FLOW: MILD MITRAL AND TRICUSPID REGURGITATION. COMMENTS: NORMAL LEFT VENTRICULAR EJECTION FRACTION 55-60%. NORMAL WALL MOTION. MILD MITRAL AND TRICUSPID REGURGITATION. NORMAL DIASTOLIC FUNCTION. TECHNOLOGIST: Herminio TORREZ
--- NOTE | 2022-06-18 13:13 | RAD REPORT ---
EXAM DESCRIPTION: CT - CT CHEST,ABD,PELVIS W/O - 06/18/2022 12:59 pm CLINICAL HISTORY: Chest pain, abdominal pain and back pain. COMPARISON: [place] Protocol dated 06/07/2022 TECHNIQUE: Axial noncontrast 5 millimeter thick images of the chest, abdomen and pelvis were obtaine d. Sagittal and coronal reformatted images were generated and reviewed. All CT scans are performed using dose optimization technique as appropriate and may include automate d exposure control or mA/KV adjustment according to patient size. FINDINGS: Lung braun are clear. No pneumothorax, pleural effusion or pleural based mass. No chest w all mass or axillary lymphadenopathy. No mediastinal or hilar mass or abnormal lymphadenopathy seen. No cardiomegaly or pericardial effusion. The liver, spleen and pancreas show no abnormalities on noncontrast imaging. Cholecystectomy clips ar e present. No biliary tree dilatation. No hydronephrosis or obstructing calculi. No nonobstructing re nal calculi, mass or acute renal finding identifiable. Isodense masses and pyelonephritis cannot be e xcluded on a noncontrast exam. Partially filled bladder is unremarkable. Uterus and ovaries show no s uspicious findings. No acute bowel findings. No free air, free fluid or inflammatory stranding. No mass or bulky lymphade nopathy. No hernias identifiable. Air is seen in the subcutaneous tissues right mid abdomen near the umbilicus presumed to be from a medication injection. No acute bone finding. IMPRESSION: CT chest, abdomen and pelvis imaging, as detailed above, shows no acute or emergent find ing.
[2022-06-18] MEDS: HYDROMORPHONE HCL 0.5 MG/0.5 ML INJ IV PRN ×3 (13:44→22:16)
--- NOTE | 2022-06-18 16:52 | P.PN ---
Date of Service: 06/18/22 Patient with nonspecific constitutional symptoms including abdominal pain, left flank pain, chest pain. Abdominal pain associated with nausea and vomiting. She has a prior history of abdominal pain nausea and vomiting. Status post lap cholecystectomy. Troponin trended flat. Echocardiogram is unremarkable with normal EF. Recent CT abdomen and pelvis shows right-sided pyelonephritis. Plan: Cardiology input appreciated. Patient's symptoms are noncardiac. UA shows no UTI Obtain CT chest abdomen and pelvis. Supportive measures. Cardiology input appreciated. Dr. Ray recommend stress test. Blood sugar control with insulin sliding scale.
[2022-06-18] MEDS ORDERED: ATORVASTATIN 40 MG TAB PO SCH (21:00)
[2022-06-18] MEDS ORDERED: ATORVASTATIN 20 MG TAB ONE (21:14)
[2022-06-19] MEDS ORDERED: PROMETHAZINE INJ 25 MG/ML AMP IV PRN (00:35)
[2022-06-19] MEDS ORDERED: PROMETHAZINE INJ 25 MG/ML AMP ONE (00:46)
[2022-06-19] MEDS: NA CHLORIDE 0.9% 1,000 ML IV SCH (06:40)
[2022-06-19] MEDS: INSULIN -REGULAR HUMAN 50 UNIT/0.5 ML ML SQ SCH ×2 (07:30→11:30)
[2022-06-19] MEDS: HYDROMORPHONE HCL 0.5 MG/0.5 ML INJ IV PRN ×2 (07:41→11:36)
[2022-06-19] MEDS: ONDANSETRON 4 MG/2 ML VIAL IV PRN ×2 (07:42→11:36)
[2022-06-19] MEDS ORDERED: ONDANSETRON 4 MG/2 ML VIAL ONE (07:45)
[2022-06-19] MEDS ORDERED: HYDROMORPHONE HCL 0.5 MG/0.5 ML INJ ONE (07:45)
[2022-06-19] MEDS: ASPIRIN EC 81 MG TAB PO SCH (09:00)
[2022-06-19 09:26] VITALS: O2SAT 100
[2022-06-19] MEDS ORDERED: REGADENOSON 0.4 MG/5 ML SYR IV ONE (10:00)
[2022-06-19] MEDS: ENOXAPARIN 80 MG/0.8 ML SQ SCH (11:36)
--- NOTE | 2022-06-19 13:09 | RAD REPORT ---
EXAM DESCRIPTION: NM - Rest Stress Cardiac Imaging - 06/19/2022 12:55 pm CLINICAL HISTORY: Chest pain COMPARISON: None. TECHNIQUE: The patient was administered 10.2 mCi of Tc 99m Sestamibi prior to resting SPECT imaging of the heart. The patient was then administered 31.2 mCi of Tc 99m Sestamibi following exercise or ph armacologic stress. Multiplanar SPECT images were reviewed. FINDINGS: The end diastolic volume is 57 ml, the end systolic volume is 18 ml, and the ejection frac tion is 68 %. No stress-induced ischemic changes are identifiable. Small areas of fixed diminished perfusion seen i n the anterior wall near the apex and in the inferior wall near the apex. These are unchanged between rest and stress imaging. IMPRESSION: No stress-induced ischemic change identified. Small areas fixed diminished perfusion anterior and inferior nicholson in the apex. End-diastolic volume was 57 mL with a 68% EF.
[2022-06-19 13:20] VITALS: BP 169/82; TEMP 97.7
--- NOTE | 2022-06-19 15:26 | P.DS ---
Admission Date: 06/18/22 Discharge Date: 06/19/22 Disposition: ROUTINE DISCHARGE Discharge Condition: FAIR Reason for Admission: Chest Pain Consultations: cardiology - Problems (1) Abdominal pain Status: Acute (2) Chest pain Status: Acute Qualifiers: Chest pain type: unspecified Qualified Code(s): R07.9 - Chest pain, unspecified (3) Elevated troponin Status: Acute (4) Type 2 diabetes mellitus Status: Chronic Qualifiers: Diabetes mellitus halfway insulin use: without termite exterminator use Diabetes mellitus complication status: with hyperglycemia Qualified Code(s): E11.65 - Type 2 diabetes mellitus with hyperglycemia Brief History of Present Illness: 37-year-old female with NIDDM who presented to the ED with complaints of chest pain that began 30 minutes prior to arrival. She was also complaining of abdominal pain, nausea, vomiting, and back pain. She reported that she tested positive for COVID 3 days prior. Patient is frequently seen in the ED for abdominal pain and back pain. Labs significant for WBC 14, creatinine 1.44, glucose 324, troponin HS 101.9. EKG shows NSR. She was given 324 mg aspirin and 25 mg Lopressor in ED. Patient was hospitalized for further management. Hospital Course: Patient placed under observation for ACS rule out. Troponin was mildly elevated but trended flat. Seen by cardiology, nuclear stress test performed which showed no stress induced ischemia. Patient's symptoms are non-specific and chronic. Vitals stable. She has tolerated diet and ambulatory. She is deemed stable for discharge. Vital Signs/Physical Exam: Temp Pulse Resp BP Pulse Ox 97.7 F 88 16 169/82 H 100 06/19/22 12:00 06/19/22 12:00 06/19/22 12:00 06/19/22 12:06/19/22 12:00 General: Alert, In no apparent distress, Oriented x3 HEENT: Mucous membr. moist/pink Neck: JVD not distended Respiratory: Clear to auscultation bilaterally, Normal air movement Cardiovascular: No edema, Regular rate/rhythm, Normal S1 S2 Gastrointestinal: Normal bowel sounds, Soft and benign, Non-distended Musculoskeletal: No swelling Integumentary: No rashes Neurological: Normal speech, Normal strength at 5/5 x4 extr Laboratory Data at Discharge: WBC 14.3 K/uL (4.3-10.9) H 06/17/22 22:40 Hgb 12.8 g/dL (12.0-15.0) 06/17/22 22:40 Hct 38.0 % (36.0-45.0) 06/17/22 22:40 Plt Count 406 K/uL (152-406) D 06/17/22 22:40 Sodium 136 mmol/L (136-145) 06/17/22 22:40 Potassium 3.7 mmol/L (3.5-5.1) 06/17/22 22:40 BUN 13 mg/dL (7-18) 06/17/22 22:40 Creatinine 1.44 mg/dL (0.55-1.3) H 06/17/22 22:40 Glucose 324 mg/dL (74-106) H 06/17/22 22:40 Triglycerides 131 mg/dL (<150) 06/18/22 02:31 Cholesterol 123 mg/dL (<200) 06/18/22 02:31 HDL Cholesterol 40 mg/dL (40-60) 06/18/22 02:31 Cholesterol/HDL Ratio 3.08 06/18/22 02:31 Home Medications: Diphenhydramine HCl [Benadryl Allergy] 25 mg PO BEDTIME 06/18/22 Gabapentin 100 mg PO BEDTIME 06/18/22 Gabapentin 300 mg PO TID 06/18/22 Losartan Potassium 25 mg PO DAILY 06/18/22 Atorvastatin Calcium [Lipitor] 40 mg PO BEDTIME #30 tab 06/19/22 New Medications: Atorvastatin Calcium [Lipitor] 40 mg PO BEDTIME #30 tab Diet: AHA Activity: Ad harmeet Followup: NONE,NONE [Primary Care Provider] - Time spent managing pt's care (in minutes): 38
--- NOTE | 2022-06-19 16:32 | EKG ---
Test Date: 2022-06-17 Test Time: 23:54:37 Resin Coater: ISABEL MEASUREMENT RESULTS: Intervals: Rate: 88 VT: 142 QRSD: 82 QT: 364 QTc: 440 Bard: P: 42 VT: 142 QRS: 68 T: 38 INTERPRETIVE STATEMENTS: Normal sinus rhythm Normal ECG Compared to ECG 06/17/2022 22:11:17 No significant changes Electronically Signed On 06-19-22 16:30:34 CDT by Juan Ray
--- NOTE | 2022-06-20 06:56 | TREADPHA ---
DX: CHEST PAIN Date of Study: 06/19/2022 Ht: 5' 2 " Wt: 170 lb 0 oz Consulting Physician: ALEJANDRO MEDICATIONS: GLIPIZIDE, GABAPENTIN HISTORY: 37 YEAR OLD FEMALE WITH COMPLAINTS OF CHEST PAIN. HISTORY OF DIABETES II PHYSICIAL EXAMINATION: RESTING B.P.: 144/78 RESTING H.R.: 79 RESTING EKG: NORMAL PROTOCOL: LEXISCAN EXERCISE TIME: 3:30 B.P. AT PEAK STRESS: 160/77 IMPRESSION: LEXISCAN INJECTED, CARDIOLITE INJECTED PER PROTOCOL. SEE NUCLEAR MEDICINE REPORT. DENIES CHEST PAIN. NO VENTRICULAR OR SUPRAVENTRICULAR TACHYCARDIA. NO PREMATURE VENTRICULAR COMPLEXES. PATIENT COMPLAINTS OF SHORTNESS OF BREATH AND NAUSEA.
--- NOTE | 2022-06-22 11:33 | CON ---
Date of Consultation: 06/18/2022 Reason For Consultation: Elevated troponin. History Of Present Illness: Ms. Mercado is 37, has a history of diabetes, hypertension, neuropathy, strong family history of heart disease, came in with atypical chest pain, abdominal pain, back pain, nausea, slightly elevated troponin. Denied PND, orthopnea, pedal edema, palpitations, or syncope. Denied any fever or chills. Allergies: SHE IS ALLERGIC TO TRAMADOL, FLAGYL, MORPHINE, BACTRIM. Past Medical History: As stated above. Medications: At home include glipizide and losartan. Review of Systems: Negative. Social History: Negative. Family History: Noncontributory. Physical Examination: Vital Signs: Stable, afebrile. HEENT: Negative. Neck: Supple. No bruit. Chest: Clear. Cardiac: Revealed a regular rhythm and rate. No murmurs, gallops, or rubs. Abdomen: Benign. Extremities: Revealed no clubbing, cyanosis, or edema. Diagnostic Data: As stated above. EKG is nonspecific. Chest x-ray is negative. Creatinine 1.4, gl ucose is 314. Troponin 114. Impression And Plan: Atypical chest pain in a patient with multiple risk factors including hypertens ion, diabetes, family history of heart disease, mildly elevated troponin, renal insufficiency, poorly controlled diabetes. She is on insulin, Lovenox, antibiotics, which I agree with. I think she need s to have an echocardiogram and a Lexiscan before we decide on further plan. ASTON/LENORE Voice ID: [id number] Report ID: [id number]
== END 2022-06-19 16:12 | disposition home or self-care (01) | DRG 313 ==
LOC: ER 19:06 → ERHOLD 06-18 01:32 → OBSVTOIN 06-18 12:47 → 2ND 06-19 07:47
PROVIDERS: ADMIT Internal Medicine; ATTEND Internal Medicine
DX: R07.9 Chest pain, unspecified (principal); U07.1 COVID-19; N17.9 Acute kidney failure, unspecified; R10.9 Unspecified abdominal pain; R11.2 Nausea with vomiting, unspecified; M54.9 Dorsalgia, unspecified; R77.8 Other specified abnormalities of plasma proteins; E11.65 Type 2 diabetes mellitus with hyperglycemia; Z90.49 Acquired absence of other specified parts of digestive tract; Z88.2 Allergy status to sulfonamides; Z20.822 Contact with and (suspected) exposure to COVID-19
CPT/HCPCS: 36415; 71045; 71250; 74176; 78452; 80048; 80061; 81003; 81015; 82550; 82553; 82947; 83036; 83880; 84439; 84443; 84484; 85025; 85652; 86140; 87086; 87088; 87811; 93005; 93017; 93306; 96374; 96375; 99285; A9500; G0378; J1170; J1815; J2175; J2405; J2550; J2785; J7030

== ENCOUNTER 2022-06-22 14:31 | Emergency (ER) | payer SELFPAY ==
[2022-06-22] MEDS ORDERED: ASPIRIN 81 MG CHEWABLE TABLET ONE (15:08)
[2022-06-22 15:22] LABS: Absolute Lymphocytes (CBC) 1.8 K/uL (0.7-4.9); Hematocrit 38.1 % (36.0-45.0); Lymphocytes % 13.9 % (15.3-44.8); MCV 87.9 fL (80-100); MPV 7.4 fL (7.6-11.3); RBC Red Blood Cell Count 4.33 M/uL (3.86-4.86)
[2022-06-22 15:28] LABS: Protime INR 0.93
[2022-06-22 15:45] LABS: ALT/SGPT 13 U/L (12-78); AST/SGOT 7 U/L (15-37); Albumin 3.3 g/dL (3.4-5.0); Alkaline Phosphatase 87 U/L (45-117); BUN Blood Urea Nitrogen 18 mg/dL (7-18); Bicarbonate 23 mmol/L (21-32); Bilirubin Total 0.2 mg/dL (0.2-1.0); Glomerular Filtration Rate 49 ml/min (=/>90); Glucose Level 341 mg/dL (74-106); Magnesium 1.9 mg/dL (1.8-2.4); NT PRO-BNP 141 pg/mL (<125); Potassium 4.1 mmol/L (3.5-5.1); Protein, Total 7.8 g/dL (6.4-8.2); Sodium Level 133 mmol/L (136-145); Troponin High Sensitivity 12.5 pg/mL (<58.9)
[2022-06-22] MEDS ORDERED: FENTANYL CITR 100 MCG/2 ML ONE (15:50)
[2022-06-22 15:51] LABS: Bilirubin Direct < 0.1 mg/dL (0-0.2)
--- NOTE | 2022-06-22 16:11 | RAD REPORT ---
EXAM DESCRIPTION: Laura Single View06/22/2022 3:45 pm CLINICAL HISTORY: Chest pain COMPARISON: June 17, 2022 FINDINGS: The lungs appear clear of acute infiltrate. The heart is normal size IMPRESSION: No acute abnormalities displayed
[2022-06-22] MEDS ORDERED: HYDROMORPHONE HCL 0.5 MG/0.5 ML INJ ONE (16:34)
[2022-06-22 16:35] LABS: Urine Blood Trace-intact (Negative); Urine Glucose 3+ (Negative); Urine Protein 2+ (Negative); Urine Specific Gravity 1.015 (1.005-1.030)
[2022-06-22] MEDS ORDERED: NA CHLORIDE 0.9% 1,000 ML ONE (16:35)
[2022-06-22] MEDS ORDERED: INSULIN -REGULAR HUMAN 50 UNIT/0.5 ML ML ONE (16:35)
[2022-06-22 17:06] LABS: Urine Specific Gravity/Preg 1.015 (1.005-1.030)
[2022-06-22 18:03] LABS: Urine Bacteria None Seen /HPF (<20); Urine RBC None Seen /HPF (None Seen)
--- NOTE | 2022-06-22 18:27 | EDPHYS ---
Physician Documentation [facility] Name: Ara Mercado Age: 37 yrs Sex: Female : 1985 Arrival Date: 06/22/2022 Time: 14:31 Bed 26 Private MD: ED Physician Marina Mei HPI: 06/22 14:55 This 37 yrs old Female presents to ER via Ambulatory with complaints of Chest Pain, jh7 Abdominal Pain. 14:55 Onset: The symptoms/episode began/occurred this morning. Patient presents with jh7 generalized chest pain and abdominal pain starting this morning. Reports that she was discharged from the hospital Friday, started on Lipitor, and cannot get in with her PCP until the . Describes chest pain as sternal.. Historical: - Allergies: 14:50 Amoxicillin; hb 14:50 Bactrim; hb 14:50 Flagyl; hb 14:50 Morphine; hb 14:50 Toradol; hb 14:50 Tramadol HCl; hb - PMHx: 14:50 diabetes mellitus; hb 14:51 NSTEMI; hb - PSHx: 14:50 Cholecystectomy; hb - Immunization history:: Adult Immunizations up to date. - Social history:: Smoking status: Patient reports the use of cigarette tobacco products, smokes one-half pack cigarettes per day. ROS: 14:55 Constitutional: Negative for fever, chills, and weight loss, ENT: Negative for injury, jh7 pain, and discharge, Neck: Negative for injury, pain, and swelling, Back: Negative for injury and pain, MS/Extremity: Negative for injury and deformity, Skin: Negative for injury, rash, and discoloration, Neuro: Negative for headache, weakness, numbness, tingling, and seizure. 14:55 Cardiovascular: Positive for chest pain, Negative for palpitations. 14:55 Abdomen/GI: Positive for abdominal pain, Negative for nausea, vomiting, and diarrhea. 14:55 All other systems are negative. Exam: 14:50 Constitutional: This is a well developed, well nourished patient who is awake, alert, jh7 and in no acute distress. Neck: Trachea midline, no thyromegaly or masses palpated, and no cervical lymphadenopathy. Supple, full range of motion without nuchal rigidity, or vertebral point tenderness. No Meningismus. Chest/axilla: Normal chest wall appearance and motion. Nontender with no deformity. No lesions are appreciated. Cardiovascular: Regular rate and rhythm with a normal S1 and S2. No gallops, murmurs, or rubs. Normal PMI, no JVD. No pulse deficits. Respiratory: Lungs have equal breath sounds bilaterally, clear to auscultation and percussion. No rales, rhonchi or wheezes noted. No increased work of breathing, no retractions or nasal flaring. Abdomen/GI: Soft, non-tender, with normal bowel sounds. No distension or tympany. No guarding or rebound. No evidence of tenderness throughout. Back: No spinal tenderness. No costovertebral tenderness. Full range of motion. Skin: Warm, dry with normal turgor. Normal color with no rashes, no lesions, and no evidence of cellulitis. MS/ Extremity: Pulses equal, no cyanosis. Neurovascular intact. Full, normal range of motion. Neuro: Awake and alert, GCS 15, oriented to person, place, time, and situation. Normal gait. 14:55 ECG was reviewed by the Attending Physician. [facility] Vital Signs: 14:41 BP 150 / 80; Pulse 98; Resp 20; Temp 97.8; Pulse Ox 100% on R/A; Weight 77.11 kg; hb Height 5 ft. 2 in. (157.48 cm); Pain 8/10; 17:13 BP 140 / 75; Pulse 89; Resp 18; Pulse Ox 100% ; chapman 14:41 Body Mass Index 31.09 (77.11 kg, 157.48 cm) hb MDM: 14:56 Patient medically screened. [facility] 18:20 Differential diagnosis: bacterial infection, pneumonia Acute [place], hyperglycemia. Data [facility] reviewed: vital signs, nurses notes, lab test result(s), EKG, radiologic studies, plain films. Data interpreted: quality assurance monitor: rhythm is normal sinus rhythm, Pulse oximetry: is 100 %. Interpretation: normal. Counseling: I had a detailed discussion with the patient and/or guardian regarding: the historical points, exam findings, and any diagnostic results supporting the discharge/admit diagnosis, the need for outpatient follow up, a third loader. Counseling: I had a detailed discussion with the patient and/or guardian regarding: to return to the emergency department if symptoms worsen or persist or if there are any questions or concerns that arise at home. Response to treatment: the patient's symptoms have resolved after treatment. 06/22 14:51 Order name: Basic Metabolic Panel; Complete Time: 15:56 [facility] 06/22 14:51 Order name: CBC with Diff; Complete Time: 15:33 [facility] 06/22 14:51 Order name: LFT's; Complete Time: 15:56 [facility] 06/22 14:51 Order name: Magnesium; Complete Time: 15:56 [facility] 06/22 14:51 Order name: NT PRO-BNP; Complete Time: 15:56 [facility] 06/22 14:51 Order name: PT-INR; Complete Time: 15:33 [facility] 06/22 14:51 Order name: Troponin HS; Complete Time: 15:56 [facility] 06/22 14:51 Order name: XRAY Chest (1 view); Complete Time: 16:23 [facility] 06/22 15:57 Order name: Lipase; Complete Time: 18:18 [facility] 06/22 15:57 Order name: Urine Microscopic Only; Complete Time: 18:18 [facility] 06/22 16:35 Order name: Urine --Ancillary (enter results); Complete Time: 17:16 eb 06/22 16:35 Order name: Urine Dipstick-Ancillary; Complete Time: 16:54 EDMS 06/22 18:06 Order name: Glucose, Ancillary Testing; Complete Time: 18:18 [facility] 06/22 14:51 Order name: EKG; Complete Time: 14:54 [facility] 06/22 14:51 Order name: Cardiac monitoring; Complete Time: 15:15 [facility] 06/22 14:51 Order name: EKG - Nurse/Tech; Complete Time: 14:51 [facility] 06/22 14:51 Order name: IV Saline Lock; Complete Time: 15:15 [facility] 06/22 14:51 Order name: Labs collected and sent; Complete Time: 15:15 [facility] 06/22 14:51 Order name: O2 Per Protocol; Complete Time: 15:15 [facility] 06/22 14:51 Order name: O2 Sat Monitoring; Complete Time: 15:15 [facility] 06/22 15:57 Order name: Urine Dipstick-Ancillary (obtain specimen); Complete Time: 17:00 [facility] 06/22 17:55 Order name: Blood Glucose Level; Complete Time: 17:56 jh7 EC:50 Rate is 95 beats/min. Rhythm is regular. QRS [place] is Normal. CO interval is normal at [facility] 136 msec. QRS interval is normal at 74 msec. QT interval is normal at 336 msec. No Q waves. T waves are Normal. No ST changes noted. Clinical impression: Normal ECG. Administered Medications: 15:15 Drug: Aspirin Chewable Tablet 324 mg Route: PO; hb 15:23 Follow up: Response: No adverse reaction chapman 15:47 Drug: fentaNYL (PF) 50 mcg Route: IVP; Site: left wrist; chapman 15:56 Follow up: Response: No adverse reaction chapman 16:30 Drug: Insulin Regular Human 5 units {Co-Signature: ss (Adriane Coronado RN).} Route: IVP; chapman Site: left wrist; 16:35 Follow up: Response: No adverse reaction chapman 16:31 Drug: Dilaudid (HYDROmorphone) 0.5 mg Route: IVP; Site: left wrist; ss 16:31 Follow up: Response: No adverse reaction 17:00 Drug: NS 0.9% 1000 ml Route: IV; Rate: 1 bolus; Site: left wrist; chapman Disposition: 06/23 10:40 Co-signature as Attending Physician, Marina Mei MD STAFF ATTESTATION STATEMENT I sd2 was immediately available on-site in the Emergency Department for consultation in the care of the patient. Marina Mei MD. Disposition Summary: 06/22/22 18:26 Discharge Ordered Location: Home [facility] Problem: new [facility] Symptoms: have improved [facility] Condition: Stable [facility] Diagnosis - Hyperglycemia, unspecified [facility] - Chest pain, unspecified 7 Followup: [facility] - With: Juan Ray MD - When: 2 - 3 days - Reason: Recheck today's complaints Discharge Instructions: - Discharge Summary Sheet [facility] - Nonspecific Chest Pain, Adult [facility] - Hyperglycemia [facility] Forms: - Medication Reconciliation Form [facility] - Thank You Letter [facility] Signatures: Dispatcher [employer] Adriane Ramires RN RN ss Idalmis Cotton RN RN sEtefani-Idalmis Pacheco RN RN ha Brown, Sophia, ALLISON PA sb3 Beatriz Mazariegos, OPTICAL WORKER OPTICAL WORKER [facility] Hamida, Marina, MD MD sd2 Adriane Smirch RN ss
--- NOTE | 2022-06-22 18:27 | ER ---
Nurse's Notes [facility] Name: Ara Mercado Age: 37 yrs Sex: Female : 1985 Arrival Date: 06/22/2022 Time: 14:31 Bed 26 Private MD: Diagnosis: Hyperglycemia, unspecified;Chest pain, unspecified Presentation: 06/22 14:41 Chief complaint: Right sided chest pain that started while watching television approx hb 30 minutes ago. Admitted 3 days ago for NSTEMI. Also c/o right flank pain and nausea x 2 days. Coronavirus screen: At this time, the client does not indicate any symptoms associated with coronavirus-19. Ebola Screen: No symptoms or risks identified at this time. Initial Sepsis Screen: Does the patient meet any 2 criteria? No. Patient's initial sepsis screen is negative. Does the patient have a suspected source of infection? No. Patient's initial sepsis screen is negative. Risk Assessment: Do you want to hurt yourself or someone else? Patient reports no desire to harm self or others. Onset of symptoms was June 22, 2022. 14:41 Method Of Arrival: Ambulatory hb 14:50 Acuity: CHARISSA 3 hb Historical: - Allergies: 14:50 Amoxicillin; hb 14:50 Bactrim; hb 14:50 Flagyl; hb 14:50 Morphine; hb 14:50 Toradol; hb 14:50 Tramadol HCl; hb - PMHx: 14:50 diabetes mellitus; hb 14:51 NSTEMI; hb - PSHx: 14:50 Cholecystectomy; hb - Immunization history:: Adult Immunizations up to date. - Social history:: Smoking status: Patient reports the use of cigarette tobacco products, smokes one-half pack cigarettes per day. Screenin:16 Abuse screen: Denies threats or abuse. Denies injuries from another. Nutritional hb screening: No deficits noted. Tuberculosis screening: No symptoms or risk factors identified. Fall Risk None identified. Assessment: 15:16 General: Appears in no apparent distress. Behavior is calm, cooperative. Pain: Pain hb currently is 7 out of 10 on a pain scale. Neuro: Level of Consciousness is awake, alert, obeys commands, Oriented to person, place, time, situation. Cardiovascular: Patient's skin is warm and dry. Respiratory: Respiratory effort is even, unlabored, Respiratory pattern is regular, symmetrical. GI: No signs and/or symptoms were reported involving the gastrointestinal system. : No signs and/or symptoms were reported regarding the genitourinary system. EENT: No signs and/or symptoms were reported regarding the EENT system. Derm: Skin is pink, warm \T\ dry. Musculoskeletal: No signs and/or symptoms reported regarding the musculoskeletal system. Vital Signs: 14:41 BP 150 / 80; Pulse 98; Resp 20; Temp 97.8; Pulse Ox 100% on R/A; Weight 77.11 kg; hb Height 5 ft. 2 in. (157.48 cm); Pain 8/10; 17:13 BP 140 / 75; Pulse 89; Resp 18; Pulse Ox 100% ; chapman 14:41 Body Mass Index 31.09 (77.11 kg, 157.48 cm) hb ED Course: 14:31 Patient arrived in ED. jj6 14:32 Michael Emmanuel PA is PHCP. [facility] 14:32 Marina Mei MD is Attending Physician. [facility] 14:37 Beatriz Mazariegos FNP is PHCP. 7 14:37 Marina Mei MD is Attending Physician. jh7 14:50 Triage completed. hb 14:51 Arm band placed on. hb 15:15 Inserted saline lock: 20 gauge in left wrist, using aseptic technique. Blood collected. hb Patient maintains SpO2 saturation greater than 95% on room air. 15:16 Patient has correct armband on for positive identification. hb 15:23 Idalmis Jensen, RN is Primary Nurse. chapman 15:26 Placed in gown. Bed in low position. Call light in reach. Door closed. Noise minimized. mb7 Warm blanket given. Client placed on continuous cardiac and pulse oximetry monitoring. NIBP monitoring applied. conveyor monitor on. 15:46 XRAY Chest (1 view) In Process Unspecified. EDMS 17:13 No provider procedures requiring assistance completed. chapman 17:56 Urine Microscopic Only Sent. chapman 18:25 Juan Ray MD is Referral Physician. 7 18:44 IV discontinued, intact. chapman Administered Medications: 15:15 Drug: Aspirin Chewable Tablet 324 mg Route: PO; hb 15:23 Follow up: Response: No adverse reaction chapman 15:47 Drug: fentaNYL (PF) 50 mcg Route: IVP; Site: left wrist; chapman 15:56 Follow up: Response: No adverse reaction chapman 16:30 Drug: Insulin Regular Human 5 units {Co-Signature: rocio (Adriane Coronado RN).} Route: IVP; chapman Site: left wrist; 16:35 Follow up: Response: No adverse reaction chapman 16:31 Drug: Dilaudid (HYDROmorphone) 0.5 mg Route: IVP; Site: left wrist; ss 16:31 Follow up: Response: No adverse reaction ss 17:00 Drug: NS 0.9% 1000 ml Route: IV; Rate: 1 bolus; Site: left wrist; chapman Medication: 17:14 VIS not applicable for this client. chapman Outcome: 18:26 Discharge ordered by MD. rascon 18:44 Discharged to home ambulatory. chapman 18:44 Condition: good 18:44 Discharge instructions given to patient. 18:44 Patient left the ED. chapman Signatures: Dispatcher [employer] EDMS Michael Emmanuel PA PA jmm Smirch, Shelby, RN RN Idalmis Cotton RN RN Beatriz Demarco j6 Milena Dominguez mb7 Idalmis Jensen RN RN chapman Beatriz Mazariegos FNP FNP Monisha chan Corrections: (The following items were deleted from the chart) 14:50 14:41 Chief complaint: Right sided chest pain x 30 minutes. Admitted 3 days ago for hb NSTEMI. Also c/o right flank pain and nausea x 2 days. hb
[2022-06-22 19:48] VITALS: TEMP 97.8; O2SAT 100
[2022-06-22 19:50] VITALS: BP 140/75
--- NOTE | 2022-06-24 12:24 | EKG ---
Test Date: 2022-06-22 Test Time: 14:50:36 Bagging Salvager: HB MEASUREMENT RESULTS: Intervals: Rate: 95 CO: 136 QRSD: 74 QT: 336 QTc: 422 [place]: P: 43 CO: 136 QRS: 53 T: 42 INTERPRETIVE STATEMENTS: Normal sinus rhythm Normal ECG Compared to ECG 06/17/2022 23:54:37 No significant changes Electronically Signed On 06-24-22 12:22:02 CDT by Nick Franco
== END 2022-06-22 18:44 | disposition home or self-care (01) ==
LOC: ER 14:31
DX: R07.89 Other chest pain (principal); E11.65 Type 2 diabetes mellitus with hyperglycemia; F17.210 Nicotine dependence, cigarettes, uncomplicated; Z88.1 Allergy status to other antibiotic agents; Z88.5 Allergy status to narcotic agent
CPT/HCPCS: 36415; 71045; 80048; 80076; 81003; 81015; 81025; 82947; 83690; 83735; 83880; 84484; 85025; 85610; 93005; 96374; 96375; 99285; J1170; J1815; J3010; J7030

== ENCOUNTER 2022-07-07 17:25 | Emergency (ER) | payer SELFPAY ==
[2022-07-07 18:55] LABS: Urine Blood Trace-intact (Negative); Urine Glucose 2+ (Negative); Urine Protein 2+ (Negative); Urine pH 5.5 (5.0-7.0)
[2022-07-07] MEDS ORDERED: HYDROMORPHONE HCL 1 MG/ML INJ ONE (20:13)
[2022-07-07] MEDS ORDERED: ONDANSETRON 4 MG/2 ML VIAL ONE (20:13)
[2022-07-07] MEDS ORDERED: NA CHLORIDE 0.9% 1,000 ML ONE (20:14)
[2022-07-07 21:26] LABS: Absolute Lymphocytes (CBC) 2.6 K/uL (0.7-4.9); Hematocrit 41.1 % (36.0-45.0); Lymphocytes % 22.1 % (15.3-44.8); MCV 89.1 fL (80-100); MPV 6.8 fL (7.6-11.3); RBC Red Blood Cell Count 4.62 M/uL (3.86-4.86)
[2022-07-07 21:39] LABS: Albumin 3.6 g/dL (3.4-5.0); Bilirubin Total 0.2 mg/dL (0.2-1.0); Potassium 3.9 mmol/L (3.5-5.1); Protein, Total 8.4 g/dL (6.4-8.2)
--- NOTE | 2022-07-07 22:05 | RAD REPORT ---
EXAM DESCRIPTION: CT - Stone Protocol - 07/07/2022 9:51 pm CLINICAL HISTORY: Flank pain. Abdominal/flank pain, hematuria COMPARISON: Stone Protocol dated 06/07/2022 TECHNIQUE: Axial images were obtained without oral or IV contrast. Lack of contrast limits solid org an and vascular assessment. The [id number] spans the entirety of the system partially obscuring uppermost abdomen and lung bases. Coronal reformatted images were obtained and reviewed. All CT scans are performed using dose optimization technique as appropriate and may include automated exposure control or mA/KV adjustment according to patient size. FINDINGS: The lower lung braun are clear. Cholecystectomy clips. Imaged portions of the liver and spleen show no suspicious findings on non-contrast imaging. The panc reas and adrenal glands are normal. No pathologic lymphadenopathy in the abdomen or pelvis. No urinary tract stones or obstructive uropathy. No bowel obstruction, free air, free fluid or abscess. Normal appendix noted.Mild stool retention thr oughout the colon. No significant bony abnormality. IMPRESSION: No urinary tract stones or obstructive uropathy.
--- NOTE | 2022-07-07 22:31 | ER ---
Nurse's Notes [facility] Name: Ara Mercado Age: 37 yrs Sex: Female : 1985 Arrival Date: 07/07/2022 Time: 17:28 Bed 16 Private MD: Diagnosis: Flank Pain;Lower abdominal pain, unspecified Presentation: 07/07 18:36 Chief complaint: Patient states: Pt reports bilateral lower abdominal pain radiating kb3 into bilateral flanks with urinary hesitancy and nausea x3 days. Coronavirus screen: Vaccine status: Patient reports receiving the 2nd dose of the covid vaccine. Client denies travel out of the [place] in the last 14 days. At this time, the client does not indicate any symptoms associated with coronavirus-19. Ebola Screen: Patient negative for fever greater than or equal to 101.5 degrees Fahrenheit, and additional compatible Ebola Virus Disease symptoms Patient denies exposure to infectious person. Patient denies travel to an Ebola-affected area in the 21 days before illness onset. No symptoms or risks identified at this time. Initial Sepsis Screen: Does the patient meet any 2 criteria? No. Patient's initial sepsis screen is negative. Does the patient have a suspected source of infection? No. Patient's initial sepsis screen is negative. Risk Assessment: Do you want to hurt yourself or someone else? Patient reports no desire to harm self or others. Onset of symptoms was July 05, 2022. 18:36 Method Of Arrival: Ambulatory kb3 18:36 Acuity: CHARISSA 3 kb3 Triage Assessment: 18:38 General: Appears in no apparent distress. uncomfortable, Behavior is calm, cooperative. kb3 Pain: Complains of pain in right lower quadrant and left lower quadrant Pain radiates to left low back and right low back Pain currently is 9 out of 10 on a pain scale. Quality of pain is described as crampy, stabbing, Pain began 2-3 days ago. Is continuous. GI: Reports diarrhea, nausea, vomiting. 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 kb3 Historical: - Allergies: 18:38 Amoxicillin; kb3 18:38 Bactrim; kb3 18:38 Flagyl; kb3 18:38 Morphine; kb3 18:38 Toradol; kb3 18:38 Tramadol HCl; kb3 - Home Meds: 18:38 glipizide 10 mg oral tab 1 tab once daily [Active]; gabapentin 300 mg oral cap 1 cap 3 kb3 times per day [Active]; Synthroid 25 mcg oral tab 1 tab once daily [Active]; Protonix 40 mg Oral TbEC 1 tab once daily [Active]; Robaxin 750 mg Oral tab 1 tab 4 times per day [Active]; aspirin 81 mg Oral chew [Active]; losartan 25 mg oral tab 2 tabs once daily [Active]; - PMHx: 18:38 diabetes mellitus; NSTEMI; Hypothyroidism; Hypertensive disorder; kb3 - Immunization history:: Adult Immunizations up to date, Client reports receiving the 2nd dose of the Covid vaccine, Last tetanus immunization: up to date. - Social history:: Smoking status: Patient reports the use of cigarette tobacco products, smokes one-half pack cigarettes per day, Patient/guardian denies using alcohol, street drugs. Vital Signs: 18:36 BP 132 / 81; Pulse 83; Resp 20; Temp 97; kb3 18:36 Pulse Ox 100% ; Weight 79.38 kg; Height 5 ft. 2 in. (157.48 cm); Pain 9/10; kb3 18:36 Body Mass Index 32.01 (79.38 kg, 157.48 cm) kb3 ED Course: 17:28 Patient arrived in ED. rg4 18:38 Triage completed. kb3 18:38 Arm band placed on right wrist. kb3 19:37 Papito Castro MD is Attending Physician. 7 19:45 Idalmis Cotton, RN is Primary Nurse. hb 21:15 Inserted saline lock: 24 gauge in right wrist, using aseptic technique. Blood collected.hb 21:53 Stone Protocol In Process Unspecified. EDMS Administered Medications: 21:15 Drug: NS 0.9% 1000 ml Route: IV; Rate: 1 bolus; Site: right antecubital; hb 21:16 Drug: Zofran (Ondansetron) 4 mg Route: IVP; Site: right wrist; hb 21:16 Drug: Dilaudid (HYDROmorphone) 1 mg Route: IVP; Site: right wrist; hb Outcome: 22:31 Discharge ordered by . 7 22:59 Patient left the ED. [facility] Signatures: Dispatcher [employer] EDMS Idalmis Cotton, RN RN hb Rabia Santiago rg4 Papito Castro MD MD mh7 Erica Forbes, VÍCTOR RN kb3
--- NOTE | 2022-07-07 22:31 | EDPHYS ---
Physician Documentation [facility] Name: Ara Mercado Age: 37 yrs Sex: Female : 1985 Arrival Date: 07/07/2022 Time: 17:28 Bed 16 Private MD: ED Physician Papito Castro HPI: 07/07 19:45 This 37 yrs old Female presents to ER via Ambulatory with complaints of Abdominal Pain, mh7 Nausea, Dizziness. 19:45 The patient complains of pain in the left flank and right flank. The pain radiates to mh7 the lower abdomen. Onset: The symptoms/episode began/occurred 3 day(s) ago. 19:45 Modifying factors: The symptoms are alleviated by nothing. the symptoms are aggravated mh7 by movement, palpation/percussion. Associated signs and symptoms: Pertinent positives: dizziness, urinary frequency, nausea, Pertinent negatives: diarrhea, dysuria, fever, headache, hematuria, pain radiating to the lower extremities, vomiting. Severity of pain: At its worst the pain was moderate 2 day(s) ago, in the emergency department the pain is unchanged. The patient has experienced similar episodes in the past, multiple times. 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 kb3 Historical: - Allergies: 18:38 Amoxicillin; kb3 18:38 Bactrim; kb3 18:38 Flagyl; kb3 18:38 Morphine; kb3 18:38 Toradol; kb3 18:38 Tramadol HCl; kb3 - Home Meds: 18:38 glipizide 10 mg oral tab 1 tab once daily [Active]; gabapentin 300 mg oral cap 1 cap 3 kb3 times per day [Active]; Synthroid 25 mcg oral tab 1 tab once daily [Active]; Protonix 40 mg Oral TbEC 1 tab once daily [Active]; Robaxin 750 mg Oral tab 1 tab 4 times per day [Active]; aspirin 81 mg Oral chew [Active]; losartan 25 mg oral tab 2 tabs once daily [Active]; - PMHx: 18:38 diabetes mellitus; NSTEMI; Hypothyroidism; Hypertensive disorder; kb3 - Immunization history:: Adult Immunizations up to date, Client reports receiving the 2nd dose of the Covid vaccine, Last tetanus immunization: up to date. - Social history:: Smoking status: Patient reports the use of cigarette tobacco products, smokes one-half pack cigarettes per day, Patient/guardian denies using alcohol, street drugs. ROS: 19:45 Constitutional: Negative for fever, chills, and weight loss, Eyes: Negative for injury, mh7 pain, redness, and discharge, ENT: Negative for injury, pain, and discharge, Neck: Negative for injury, pain, and swelling, Cardiovascular: Negative for chest pain, palpitations, and edema, Respiratory: Negative for shortness of breath, cough, wheezing, and pleuritic chest pain, : Negative for injury, bleeding, discharge, and swelling, MS/Extremity: Negative for injury and deformity, Skin: Negative for injury, rash, and discoloration, Neuro: Negative for headache, weakness, numbness, tingling, and seizure, Psych: Negative for depression, anxiety, suicide ideation, homicidal ideation, and hallucinations, Allergy/Immunology: Negative for hives, rash, and allergies, Endocrine: Negative for neck swelling, polydipsia, polyuria, polyphagia, and marked weight changes, Hematologic/Lymphatic: Negative for swollen nodes, abnormal bleeding, and unusual bruising. Exam: 19:45 Head/Face: Normocephalic, atraumatic. Eyes: Pupils equal round and reactive to light, mh7 extra-ocular motions intact. Lids and lashes normal. Conjunctiva and sclera are non-icteric and not injected. Cornea within normal limits. Periorbital areas with no swelling, redness, or edema. Neck: Trachea midline, no thyromegaly or masses palpated, and no cervical lymphadenopathy. Supple, full range of motion without nuchal rigidity, or vertebral point tenderness. No Meningismus. Chest/axilla: Normal chest wall appearance and motion. Nontender with no deformity. No lesions are appreciated. Cardiovascular: Regular rate and rhythm with a normal S1 and S2. No gallops, murmurs, or rubs. Normal PMI, no JVD. No pulse deficits. Respiratory: Lungs have equal breath sounds bilaterally, clear to auscultation and percussion. No rales, rhonchi or wheezes noted. No increased work of breathing, no retractions or nasal flaring. 19:45 Skin: Warm, dry with normal turgor. Normal color with no rashes, no lesions, and no evidence of cellulitis. MS/ Extremity: Pulses equal, no cyanosis. Neurovascular intact. Full, normal range of motion. Neuro: Awake and alert, GCS 15, oriented to person, place, time, and situation. Cranial nerves II-XII grossly intact. Motor strength 5/5 in all extremities. Sensory grossly intact. Cerebellar exam normal. Normal gait. Psych: Awake, alert, with orientation to person, place and time. Behavior, mood, and affect are within normal limits. 19:45 Constitutional: The patient appears in no acute distress, alert, awake, uncomfortable. 19:45 Abdomen/GI: Inspection: abdomen appears normal, Bowel sounds: normal, in all quadrants, Palpation: mild abdominal tenderness, in the suprapubic area, right lower quadrant and left lower quadrant, mass, is not appreciated, rebound tenderness, is not appreciated, voluntary guarding, is not appreciated, involuntary guarding, is not appreciated, no appreciated organomegaly, Indicators: McBurney's point is not tender, Ritchie's sign is negative, Rovsing's sign is negative, Obturator sign is negative, Psoas sign is negative, Liver: no appreciated palpable abnormalities, Hernia: not appreciated. 19:45 Back: normal spinal alignment noted, CVA tenderness, that is moderate, is noted bilaterally, muscle spasm, is not present. Vital Signs: 18:36 BP 132 / 81; Pulse 83; Resp 20; Temp 97; kb3 18:36 Pulse Ox 100% ; Weight 79.38 kg; Height 5 ft. 2 in. (157.48 cm); Pain 9/10; kb3 18:36 Body Mass Index 32.01 (79.38 kg, 157.48 cm) kb3 MDM: 22:29 Differential diagnosis: nephrolithiasis, pyelonephritis, UTI, diverticulitis. Data [facility] reviewed: vital signs, nurses notes, lab test result(s), CBC, electrolytes, urinalysis, UPT: negative EKG, radiologic studies, CT scan. Data interpreted: Pulse oximetry: on room air is 100 %. Interpretation: normal. Counseling: I had a detailed discussion with the patient and/or guardian regarding: the historical points, exam findings, and any diagnostic results supporting the discharge/admit diagnosis, lab results, radiology results, the need for outpatient follow up, to return to the emergency department if symptoms worsen or persist or if there are any questions or concerns that arise at home. Response to treatment: the patient's symptoms have resolved after treatment, the patient's blood pressure is in an acceptable range, mental status has returned to baseline, the patient no longer shows bradycardia, the patient is not short of breath, the patient is not tachycardic, the patient's pain is gone, the patient's temperature has normalized, the patient is now symptom free, patient is well hydrated. 22:31 Patient medically screened. [facility] 07/07 18:55 Order name: Urine Dipstick-Ancillary; Complete Time: 19:38 [facility] 07/07 19:39 Order name: Urine --Ancillary (enter results); Complete Time: 20:23 07/07 19:55 Order name: CBC with Diff; Complete Time: 21:59 [facility] 07/07 19:55 Order name: CMP; Complete Time: 21:59 [facility] 07/07 19:55 Order name: Lipase; Complete Time: 21:59 [facility] 07/07 21:25 Order name: Glucose, Ancillary Testing; Complete Time: 21:59 [facility] 07/07 18:47 Order name: Urine Dipstick-Ancillary (obtain specimen); Complete Time: 19:02 [facility] 07/07 19:55 Order name: IV Saline Lock; Complete Time: 21:15 [facility] 07/07 19:55 Order name: EKG; Complete Time: 19:57 [facility] 07/07 20:07 Order name: Stone Protocol; Complete Time: 22:24 [facility] 07/07 19:55 Order name: Labs collected and sent; Complete Time: 21:15 [facility] 07/07 19:55 Order name: Urine Test (obtain specimen); Complete Time: 19:59 [facility] 07/07 19:55 Order name: EKG - Nurse/Tech; Complete Time: 21:15 [facility] Administered Medications: 21:15 Drug: NS 0.9% 1000 ml Route: IV; Rate: 1 bolus; Site: right antecubital; hb 21:16 Drug: Zofran (Ondansetron) 4 mg Route: IVP; Site: right wrist; hb 21:16 Drug: Dilaudid (HYDROmorphone) 1 mg Route: IVP; Site: right wrist; hb Disposition Summary: 07/07/22 22:31 Discharge Ordered Location: Home [facility] Problem: an acute exacerbation [facility] Symptoms: have improved [facility] Condition: Stable [facility] Diagnosis - Flank Pain 7 - Lower abdominal pain, unspecified [facility] Followup: [facility] - With: Private Physician - When: 1 - 2 days - Reason: Worsening of condition, Recheck today's complaints, Continuance of care, Re-evaluation by your physician Discharge Instructions: - Discharge Summary Sheet [facility] - Abdominal Pain, Adult, [id number] [facility] - Flank Pain, Adult, [id number] [facility] Forms: - Medication Reconciliation Form [facility] - Thank You Letter [facility] - Antibiotic Education [facility] - Prescription Opioid Use [facility] - Work release form bb Prescriptions: - ondansetron 4 mg Oral tablet,disintegrating - place 1 tablet by TRANSLINGUAL route every 8 hours As needed; 12 tablet; 7 Refills: 0, Product Selection Permitted - dicyclomine 20 mg Oral Tablet - take 1 tablet by ORAL route 4 times per day As needed; 20 tablet; Refills: 0, mh7 Product Selection Permitted Signatures: Dispatcher [employer] EDIdalmis Leal, RN RN Papito Castro MD MD [facility] Erica Forbes RN RN kb3 Corrections: (The following items were deleted from the chart) 20:07 19:57 Abdomen Pelvis Wo Con+CT.RAD.BRZ ordered. EDMS EDMS
[2022-07-08 01:39] VITALS: BP 132/81; TEMP 97; O2SAT 100
--- NOTE | 2022-07-09 08:18 | EKG ---
Test Date: 2022-07-07 Test Time: 20:27:51 Hatch Tender: HB MEASUREMENT RESULTS: Intervals: Rate: 79 NH: 144 QRSD: 84 QT: 358 QTc: 410 [place]: P: 34 NH: 144 QRS: 47 T: 32 INTERPRETIVE STATEMENTS: Normal sinus rhythm Normal ECG Compared to ECG 06/22/2022 14:50:36 No significant changes Electronically Signed On 07-09-22 08:11:40 CDT by Juan Ray
== END 2022-07-07 22:59 | disposition home or self-care (01) ==
LOC: ER 17:25
DX: R10.30 Lower abdominal pain, unspecified (principal); R10.9 Unspecified abdominal pain; E11.9 Type 2 diabetes mellitus without complications; I10 Essential (primary) hypertension; E03.9 Hypothyroidism, unspecified; F17.210 Nicotine dependence, cigarettes, uncomplicated; Z79.82 Long term (current) use of aspirin; Z88.1 Allergy status to other antibiotic agents; Z88.5 Allergy status to narcotic agent; Z88.8 Allergy status to other drugs, medicaments and biological substances
CPT/HCPCS: 36415; 74176; 76377; 80053; 81003; 81025; 82947; 83690; 85025; 93005; 96374; 96375; 99284; J1170; J2405; J7030

== ENCOUNTER 2022-07-19 16:18 | Emergency (ER) | payer SELFPAY ==
[2022-07-19 17:16] LABS: Protime INR 0.91
--- NOTE | 2022-07-19 17:24 | RAD REPORT ---
EXAM DESCRIPTION: RAD - Chest Single View - 07/19/2022 5:14 pm CLINICAL HISTORY: CHEST PAIN, hypertension COMPARISON: Portable 06/22/2022 TECHNIQUE: AP portable chest image was obtained 07/19/2022 5:14 pm . FINDINGS: Lungs are clear. Heart and vasculature are normal. No measurable pleural effusion and no p neumothorax. No acute bony abnormality seen. No acute aortic findings suspected. IMPRESSION: No acute cardiopulmonary process. No significant change from comparison study.
[2022-07-19 17:29] LABS: Absolute Lymphocytes (CBC) 1.8 K/uL (0.7-4.9); Hematocrit 40.1 % (36.0-45.0); Lymphocytes % 12.7 % (15.3-44.8); MCV 89.9 fL (80-100); MPV 7.2 fL (7.6-11.3); RBC Red Blood Cell Count 4.46 M/uL (3.86-4.86)
[2022-07-19] MEDS ORDERED: METOCLOPRAMIDE 10 MG/2mL INJ ONE (17:34)
[2022-07-19] MEDS ORDERED: FENTANYL CITR 100 MCG/2 ML ONE ×2 (17:35→19:10)
[2022-07-19] MEDS ORDERED: NA CHLORIDE 0.9% 500 ML ONE ×2 (17:35→18:17)
[2022-07-19] MEDS ORDERED: NA CHLORIDE 0.9% 100 ML ONE (17:36)
[2022-07-19 17:37] LABS: Potassium 3.9 mmol/L (3.5-5.1); Troponin High Sensitivity 3.3 pg/mL (<58.9)
[2022-07-19 18:05] LABS: Urine Blood Negative (Negative); Urine Glucose 2+ (Negative); Urine Protein 1+ (Negative); Urine Specific Gravity 1.015 (1.005-1.030); Urine pH 5.5 (5.0-7.0)
[2022-07-19] MEDS ORDERED: INSULIN -REGULAR HUMAN 50 UNIT/0.5 ML ML ONE (18:16)
--- NOTE | 2022-07-19 19:05 | RAD REPORT ---
EXAM DESCRIPTION: CT - Chest Abdomen Pelvis W Cont - 07/19/2022 6:43 pm CLINICAL HISTORY: Abdominal pain, chest pain, hypertension COMPARISON: No comparisons TECHNIQUE: Following dynamic enhancement using 100 milliliters nonionic IV contrast, axial imaging o f the chest, abdomen and pelvis was performed. Biphasic technique was utilized through the abdomen. Oral contrast was administered. All CT scans are performed using dose optimization technique as appropriate and may include automated exposure control or mA/KV adjustment according to patient size. FINDINGS: Lungs are clear of mass and infiltrate. No pleural effusion, pleural thickening or pneumot horax. No significant aortic or pulmonary arterial tree finding. Mediastinal and hilar regions show n o mass or abnormal lymphadenopathy. No chest wall mass or axillary lymphadenopathy. The liver, spleen and pancreas show no suspicious findings. Cholecystectomy clips are present. No bonnie iary tree dilatation. Gallstones can be occult on CT imaging. No hydronephrosis or obstructing calculus. There is subtle heterogeneity in the bilateral renal paren chymal enhancement. No perinephric stranding. No solid mass lesions seen. Bilateral pyelonephritis is a consideration and needs correlation with clinical presentation and any corresponding UA abnormalit y. No urinary bladder wall thickening or mass. No adrenal abnormalities. Uterus and ovaries show no s uspicious findings. No dilated bowel loops or focal bowel wall thickening. No acute GI findings seen. No evidence for lan endicitis. No acute or destructive bony process. No significant vascular findings. IMPRESSION: Subtle heterogeneous decreased attenuation within areas of the bilateral renal parenchym a.Findings are suspicious for bilateral pyelonephritis, mild in degree, and correlation is needed wit h clinical presentation and any UA abnormalities. No cystitis findings. No acute or significant CT chest finding. 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
[2022-07-19 19:53] LABS: Urine Specific Gravity/Preg 1.015 (1.005-1.030)
[2022-07-19] MEDS ORDERED: HYDROMORPHONE HCL 0.5 MG/0.5 ML INJ ONE (21:12)
--- NOTE | 2022-07-19 22:12 | ER ---
Nurse's Notes [facility] Name: Ara Mercado Age: 37 yrs Sex: Female : 1985 Arrival Date: 07/19/2022 Time: 16:19 Bed 17 Private MD: Diagnosis: Elevated blood-pressure reading, without diagnosis of hypertension;Chest pain, unspecified;Abdominal pain, unspecified Presentation: 07/19 16:33 Chief complaint: Patient states: my chest is hurting in the middle, and my stomach is iw hurting in upper area and my back is hurting in lower area since yesterday . I'm dizzy and I have a pounding headache and i'm nauseous. Coronavirus screen: At this time, the client does not indicate any symptoms associated with coronavirus-19. Ebola Screen: Patient negative for fever greater than or equal to 101.5 degrees Fahrenheit, and additional compatible Ebola Virus Disease symptoms Patient denies exposure to infectious person. Patient denies travel to an Ebola-affected area in the 21 days before illness onset. No symptoms or risks identified at this time. Initial Sepsis Screen: Does the patient meet any 2 criteria? No. Patient's initial sepsis screen is negative. Does the patient have a suspected source of infection? No. Patient's initial sepsis screen is negative. Risk Assessment: Do you want to hurt yourself or someone else? Patient reports no desire to harm self or others. Onset of symptoms was July 19, 2022. 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 iw Historical: - Allergies: 16:35 Amoxicillin; iw 16:35 Bactrim; iw 16:35 Flagyl; iw 16:35 Morphine; iw 16:35 Toradol; iw 16:35 Tramadol HCl; iw - Home Meds: 16:35 aspirin 81 mg Oral chew [Active]; gabapentin 300 mg Oral cap 1 cap 3 times per day iw [Active]; glipizide 10 mg Oral tab 1 tab once daily [Active]; losartan 25 mg Oral tab 2 tabs once daily [Active]; Protonix 40 mg Oral TbEC 1 tab once daily [Active]; Robaxin 750 mg Oral tab 1 tab 4 times per day [Active]; Synthroid 25 mcg Oral tab 1 tab once daily [Active]; Vitamin B-12 Oral chew daily [Active]; - PMHx: 16:35 Hypertensive disorder; NSTEMI; Hypothyroidism; diabetes mellitus; iw - PSHx: 16:35 Cholecystectomy; iw - Immunization history:: Client reports receiving the 2nd dose of the Covid vaccine. - Social history:: Smoking status: Patient reports the use of cigarette tobacco products. Screenin:50 Abuse screen: Denies threats or abuse. em6 16:50 Nutritional screening: No deficits noted. Tuberculosis screening: No symptoms or risk em6 factors identified. Fall Risk IV access (20 points). Total Hannah Fall Scale indicates No Risk (0-24 pts). Assessment: 16:50 General: Appears distressed, uncomfortable, Behavior is cooperative, anxious. Pain: em6 Complains of pain in epigastric area Pain does not radiate. Pain currently is 10 out of 10 on a pain scale. Quality of pain is described as crushing, Pain began 2-3 days ago. Neuro: Cantu Agitation-Sedation Scale (RASS): 0 - Alert and Calm Level of Consciousness is awake, alert, obeys commands, Oriented to person, place, time, situation. Cardiovascular: Reports chest pain, Denies shortness of breath, Heart tones present Capillary refill < 3 seconds Patient's skin is warm and dry. Rhythm is sinus rhythm. Respiratory: Airway is patent Respiratory effort is even, unlabored, Respiratory pattern is regular, symmetrical, Breath sounds are clear bilaterally. GI: Bowel sounds present X 4 quads. Abd is soft and non tender X 4 quads. Reports upper abdominal pain. : No signs and/or symptoms were reported regarding the genitourinary system. EENT: No signs and/or symptoms were reported regarding the EENT system. Derm: No signs and/or symptoms reported regarding the dermatologic system. Musculoskeletal: Circulation, motion, and sensation intact. Range of motion: intact in all extremities. 18:00 Reassessment: No changes from previously documented assessment. Patient and/or family em6 updated on plan of care and expected duration. Pain level reassessed. Patient is alert, oriented x 3, equal unlabored respirations, skin warm/dry/pink. 19:00 Reassessment: Patient states symptoms have not improved. pain is at a 10 out of 10. em6 notified provider . 20:10 Reassessment: Patient and/or family updated on plan of care and expected duration. Pain ll3 level reassessed. Vital Signs: 16:33 BP 142 / 77; Pulse 92; Resp 16; Pulse Ox 100% ; Weight 78.93 kg; Height 5 ft. 2 in. iw (157.48 cm); Pain 8/10; 17:15 BP 134 / 84; Pulse 85; Resp 18; Pulse Ox 100% on R/A; em6 18:00 BP 143 / 83; Pulse 86; Resp 16; Pulse Ox 99% on R/A; em6 16:33 Body Mass Index 31.82 (78.93 kg, 157.48 cm) iw ED Course: 16:19 Patient arrived in ED. rg4 16:24 Brannon Cooper MD is Attending Physician. kdr 16:35 Triage completed. iw 16:36 Arm band placed on. iw 16:50 Patient has correct armband on for positive identification. Bed in low position. Call em6 light in reach. Side rails up X 1. Pulse ox on. NIBP on. Warm blanket given. 17:00 Missed attempt(s): 22 gauge in right antecubital area. Bleeding controlled, band aid jd3 applied, catheter tip intact. 17:08 Inserted saline lock: 22 gauge in left forearm, using aseptic technique. Blood jd3 collected. 17:16 XRAY Chest (1 view) In Process Unspecified. EDMS 18:45 CT Chest, Abdomen, Pelvis - W/Contrast In Process Unspecified. EDMS 19:12 Ranjeet Jensen, RN is Primary Nurse. fu 19:17 Attending Physician role handed off by Brannon Cooper MD ms3 19:17 Mahamed Mcclellan DO is Attending Physician. ms3 19:27 Patient maintains SpO2 saturation greater than 95% on room air. em6 22:00 No provider procedures requiring assistance completed. fu 22:05 Nick Franco MD is Referral Physician. ms3 22:20 IV discontinued, bleeding controlled, Pressure dressing applied. fu Administered Medications: 17:39 Drug: Reglan (metoCLOPramide) 20 mg Route: IVP; Site: left forearm; em6 18:20 Follow up: Response: No adverse reaction em6 17:39 Drug: NS 0.9% 500 ml Route: IV; Rate: bolus; Site: left forearm; em6 18:50 Follow up: Response: No adverse reaction; IV Status: Completed infusion; IV Intake: em6 500ml 17:40 Drug: fentaNYL (PF) 50 mcg Route: IVP; Site: left forearm; em6 18:20 Follow up: Response: No adverse reaction; RASS: Alert and Calm (0) em6 18:16 Drug: Insulin Regular Human 10 units {Co-Signature: lobo (Dillon Wilde RN).} Route: em6 IVP; Site: left forearm; 19:00 Follow up: Response: No adverse reaction em6 19:11 Drug: fentaNYL (PF) 50 mcg Route: IVP; Site: left forearm; em6 20:11 Follow up: Response: Pain is decreased fu 19:12 Drug: NS 0.9% 500 ml Route: IV; Rate: bolus; Site: left forearm; em6 21:10 Drug: Dilaudid (HYDROmorphone) 0.5 mg Route: IVP; Site: left forearm; fu Medication: 16:50 VIS not applicable for this client. em6 Intake: 18:50 IV: 500ml; Total: 500ml. em6 Outcome: 22:06 Discharge ordered by . ms3 22:20 Discharged to home ambulatory. fu 22:20 Condition: good 22:20 Discharge instructions given to patient, Instructed on discharge instructions, follow up and referral plans. Demonstrated understanding of instructions, follow-up care, Prescriptions given X 0 22:29 Patient left the ED. eh3 Signatures: Dispatcher [employer] EDMS Brannon Cooper MD MD kdr Williams, Irene RN Rabia Alegria 4 Dillon Wilde RN RN jd3 Ranjeet Jensen, RN Mahamed Orosco DO DO ms3 Yue Jamison RN RN 3 Reyna Baca RN RN 3 June Land RN RN em6 Dillon heatond3
--- NOTE | 2022-07-19 22:12 | EDPHYS ---
Physician Documentation [facility] Name: Ara Mercado Age: 37 yrs Sex: Female : 1985 Arrival Date: 07/19/2022 Time: 16:19 Bed 17 Private MD: ED Physician Mahamed Mcclellan HPI: 07/19 18:18 This 37 yrs old Female presents to ER via Ambulatory with complaints of Chest Pain, kdr Abdominal Pain, Back Pain. 18:18 Patient complains of chest pain, stomach pain and back pain. This is been going on kdr since yesterday. She also complains of bit dizziness and a pounding headache along with nausea. She states that the symptoms she is having now are similar to when she had her prior heart attack.. Onset: The symptoms/episode began/occurred yesterday. Severity of symptoms: At their worst the symptoms were mild moderate just prior to arrival, in the emergency department the symptoms are unchanged. The patient has experienced similar episodes in the past, a few times. The patient has not recently seen a physician. 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 iw Historical: - Allergies: 16:35 Amoxicillin; iw 16:35 Bactrim; iw 16:35 Flagyl; iw 16:35 Morphine; iw 16:35 Toradol; iw 16:35 Tramadol HCl; iw - Home Meds: 16:35 aspirin 81 mg Oral chew [Active]; gabapentin 300 mg Oral cap 1 cap 3 times per day iw [Active]; glipizide 10 mg Oral tab 1 tab once daily [Active]; losartan 25 mg Oral tab 2 tabs once daily [Active]; Protonix 40 mg Oral TbEC 1 tab once daily [Active]; Robaxin 750 mg Oral tab 1 tab 4 times per day [Active]; Synthroid 25 mcg Oral tab 1 tab once daily [Active]; Vitamin B-12 Oral chew daily [Active]; - PMHx: 16:35 Hypertensive disorder; NSTEMI; Hypothyroidism; diabetes mellitus; iw - PSHx: 16:35 Cholecystectomy; iw - Immunization history:: Client reports receiving the 2nd dose of the Covid vaccine. - Social history:: Smoking status: Patient reports the use of cigarette tobacco products. ROS: 18:18 Constitutional: Negative for fever, chills, and weight loss, Eyes: Negative for injury, kdr pain, redness, and discharge, ENT: Negative for injury, pain, and discharge, Neck: Negative for injury, pain, and swelling, Respiratory: Negative for shortness of breath, cough, wheezing, and pleuritic chest pain, Back: Negative for injury and pain, : Negative for injury, bleeding, discharge, and swelling, MS/Extremity: Negative for injury and deformity, Skin: Negative for injury, rash, and discoloration, Neuro: Negative for headache, weakness, numbness, tingling, and seizure activity. Psych: Negative for depression, anxiety, suicide ideation, homicidal ideation, and hallucinations, Allergy/Immunology: Negative for hives, rash, and allergies, Endocrine: Negative for neck swelling, polydipsia, polyuria, polyphagia, and marked weight changes, Hematologic/Lymphatic: Negative for swollen nodes, abnormal bleeding, and unusual bruising. 18:18 Cardiovascular: Positive for chest pain, Negative for edema, orthopnea, palpitations, paroxysmal nocturnal dyspnea. 18:18 Abdomen/GI: Positive for abdominal pain, nausea, Negative for black/tarry stool, rectal pain, rectal bleeding, bowel incontinence. Exam: 18:18 Constitutional: This is a well developed, well nourished patient who is awake, alert, kdr and in no acute distress. Head/Face: Normocephalic, atraumatic. Eyes: Pupils equal round and reactive to light, extra-ocular motions intact. Lids and lashes normal. Conjunctiva and sclera are non-icteric and not injected. Cornea within normal limits. Periorbital areas with no swelling, redness, or edema. Neck: Trachea midline, no thyromegaly or masses palpated, and no cervical lymphadenopathy. Supple, full range of motion without nuchal rigidity, or vertebral point tenderness. No Meningismus. Chest/axilla: Normal chest wall appearance and motion. Nontender with no deformity. No lesions are appreciated. Cardiovascular: Regular rate and rhythm with a normal S1 and S2. No gallops, murmurs, or rubs. Normal PMI, no JVD. No pulse deficits. Respiratory: Lungs have equal breath sounds bilaterally, clear to auscultation and percussion. No rales, rhonchi or wheezes noted. No increased work of breathing, no retractions or nasal flaring. Back: No spinal tenderness. No costovertebral tenderness. Full range of motion. Skin: Warm, dry with normal turgor. Normal color with no rashes, no lesions, and no evidence of cellulitis. MS/ Extremity: Pulses equal, no cyanosis. Neurovascular intact. Full, normal range of motion. Neuro: Awake and alert, GCS 15, oriented to person, place, time, and situation. Cranial nerves II-XII grossly intact. Motor strength 5/5 in all extremities. Sensory grossly intact. Cerebellar exam normal. Normal gait. Psych: Awake, alert, with orientation to person, place and time. Behavior, mood, and affect are within normal limits. 18:18 Abdomen/GI: Inspection: 21:05 ECG was reviewed by the Attending Physician. ms3 Vital Signs: 16:33 BP 142 / 77; Pulse 92; Resp 16; Pulse Ox 100% ; Weight 78.93 kg; Height 5 ft. 2 in. iw (157.48 cm); Pain 8/10; 17:15 BP 134 / 84; Pulse 85; Resp 18; Pulse Ox 100% on R/A; em6 18:00 BP 143 / 83; Pulse 86; Resp 16; Pulse Ox 99% on R/A; em6 16:33 Body Mass Index 31.82 (78.93 kg, 157.48 cm) iw MDM: 19:19 Patient medically screened. 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 07/20 08:24 Data reviewed: vital signs, nurses notes, lab test result(s), EKG, radiologic studies, ms3 and as a result, I will discharge patient. Data interpreted:. 07/19 16:43 Order name: Basic Metabolic Panel; Complete Time: 17:45 iw 07/19 16:43 Order name: CBC with Diff; Complete Time: 17:45 iw 07/19 16:43 Order name: PT-INR; Complete Time: 17:45 iw 07/19 16:43 Order name: Troponin HS; Complete Time: 17:45 iw 07/19 18:05 Order name: Urine Dipstick-Ancillary; Complete Time: 19:17 EDMS 07/19 18:07 Order name: Urine --Ancillary (enter results); Complete Time: 20:35 dh3 07/19 16:43 Order name: XRAY Chest (1 view); Complete Time: 17:45 iw 07/19 17:46 Order name: CT Chest, Abdomen, Pelvis - W/Contrast; Complete Time: 19:17 kdr 07/19 19:54 Order name: Glucose, Ancillary Testing; Complete Time: 20:35 EDMS 07/19 20:26 Order name: Troponin High Sensitivity; Complete Time: 21:32 ll3 07/19 16:43 Order name: EKG; Complete Time: 16:43 iw 07/19 16:43 Order name: Cardiac monitoring; Complete Time: 17:19 iw 07/19 16:43 Order name: EKG - Nurse/Tech; Complete Time: 17:19 iw 07/19 16:43 Order name: IV Saline Lock; Complete Time: 17:19 iw 07/19 16:43 Order name: Labs collected and sent; Complete Time: 17:19 iw 07/19 16:43 Order name: O2 Per Protocol; Complete Time: 17:19 iw 07/19 16:43 Order name: O2 Sat Monitoring; Complete Time: 17:19 iw 07/19 18:47 Order name: FSBS: 60 minutes from insulin infusion; Complete Time: 20:05 kdr EC/26 21:05 Rate is 84 beats/min. Rhythm is regular. QRS [place] is Normal. QRS interval is normal. ms3 Clinical impression: Normal ECG. Interpreted by me. Reviewed by me. Administered Medications: 17:39 Drug: Reglan (metoCLOPramide) 20 mg Route: IVP; Site: left forearm; em6 18:20 Follow up: Response: No adverse reaction em6 17:39 Drug: NS 0.9% 500 ml Route: IV; Rate: bolus; Site: left forearm; em6 18:50 Follow up: Response: No adverse reaction; IV Status: Completed infusion; IV Intake: em6 500ml 17:40 Drug: fentaNYL (PF) 50 mcg Route: IVP; Site: left forearm; em6 18:20 Follow up: Response: No adverse reaction; RASS: Alert and Calm (0) em6 18:16 Drug: Insulin Regular Human 10 units {Co-Signature: jd3 (Dillon Wilde RN).} Route: em6 IVP; Site: left forearm; 19:00 Follow up: Response: No adverse reaction em6 19:11 Drug: fentaNYL (PF) 50 mcg Route: IVP; Site: left forearm; em6 20:11 Follow up: Response: Pain is decreased fu 19:12 Drug: NS 0.9% 500 ml Route: IV; Rate: bolus; Site: left forearm; em6 21:10 Drug: Dilaudid (HYDROmorphone) 0.5 mg Route: IVP; Site: left forearm; fu Disposition Summary: 07/19/22 22:06 Discharge Ordered Location: Home ms3 Condition: Stable ms3 Diagnosis - Elevated blood-pressure reading, without diagnosis of hypertension ms3 - Chest pain, unspecified ms3 - Abdominal pain, unspecified ms3 Followup: ms3 - With: Nick Franco MD - When: 2 - 3 days - Reason: Recheck today's complaints Discharge Instructions: - Discharge Summary Sheet ms3 - Abdominal Pain, Adult ms3 - Nonspecific Chest Pain, Adult ms3 Forms: - Medication Reconciliation Form ms3 - Thank You Letter ms3 - Antibiotic Education ms3 - Prescription Opioid Use ms3 Signatures: Dispatcher [employer] EDMS Brannon Cooper MD MD [facility] Lyndsay Zuluaga, RN RN Ranjeet Jensen, RN RN fu Mahamed Mcclellan DO DO ms3 June Land, RN RN em6 Dillon Wilde RN jd3 Corrections: (The following items were deleted from the chart) 20:26 18:46 Troponin High Sensitivity+C.LAB.BRZ ordered. EDMS EDMS 22:07 22:06 Headache ms3 ms3
[2022-07-20 00:45] VITALS: BP 143/83; O2SAT 99
--- NOTE | 2022-07-20 15:19 | EKG ---
Test Date: 2022-07-19 Test Time: 17:16:32 Electrotype [place]: EM MEASUREMENT RESULTS: Intervals: Rate: 84 MI: 138 QRSD: 80 QT: 356 QTc: 420 [place]: P: 46 MI: 138 QRS: 87 T: 21 INTERPRETIVE STATEMENTS: Normal sinus rhythm Normal ECG Compared to ECG 07/07/2022 20:27:51 No significant changes Electronically Signed On 07-20-22 15:18:32 CDT by Nick Franco
== END 2022-07-19 22:29 | disposition home or self-care (01) ==
LOC: ER 16:18
DX: R07.89 Other chest pain (principal); I10 Essential (primary) hypertension; R10.9 Unspecified abdominal pain; E11.9 Type 2 diabetes mellitus without complications; I25.2 Old myocardial infarction; E03.9 Hypothyroidism, unspecified; Z72.0 Tobacco use; Z79.82 Long term (current) use of aspirin; Z88.1 Allergy status to other antibiotic agents; Z88.5 Allergy status to narcotic agent
CPT/HCPCS: 36415; 71045; 71260; 74177; 80048; 81003; 81025; 82947; 84484; 85025; 85610; 93005; 96361; 96374; 96375; 99285; J1170; J1815; J2765; J3010; J7040; Q9967

== ENCOUNTER → 2022-09-09 | Emergency (ER) | payer SELFPAY | LOC: ER 18:19 | DX: Z02.89 Encounter for other administrative examinations (principal); Z53.21 Procedure and treatment not carried out due to patient leaving prior to being seen by health care provider ==

== ENCOUNTER 2022-09-18 04:40 | Emergency (ER) | payer SELFPAY ==
[2022-09-18 05:58] LABS: Absolute Lymphocytes (CBC) 2.3 K/uL (0.7-4.9); Hematocrit 35.8 % (36.0-45.0); Lymphocytes % 22.4 % (15.3-44.8); MCV 89.2 fL (80-100); MPV 7.3 fL (7.6-11.3); RBC Red Blood Cell Count 4.01 M/uL (3.86-4.86)
[2022-09-18] MEDS ORDERED: FENTANYL CITR 100 MCG/2 ML ONE (06:00)
[2022-09-18] MEDS ORDERED: ONDANSETRON 4 MG/2 ML VIAL ONE (06:00)
--- NOTE | 2022-09-18 07:41 | EDPHYS ---
Physician Documentation [facility] Name: Ara Mercado Age: 37 yrs Sex: Female : 1985 Arrival Date: 09/18/2022 Time: 04:43 Bed 5 Private MD: Rashad Beach HPI: 09/18 05:07 This 37 yrs old Female presents to ER via Ambulatory with complaints of Mouth bobbi Problem, Sore Throat, Neck Problem. 05:07 The patient presents with broken tooth/teeth, swelling. The problem is located in the bobbi upper right third molar, upper right second molar, upper right first molar, upper right second bicuspid, upper right first bicuspid, upper right cuspid, upper right lateral incisor, upper right central incisor, upper left central incisor, upper left lateral incisor, upper left cuspid, upper left first bicuspid, upper left second bicuspid, upper left first molar, upper left second molar, upper left third molar, lower left third molar, lower left second molar, lower left first molar, lower left second bicuspid, lower left first bicuspid, lower left cuspid, lower left lateral incisor, lower left central incisor, lower right central incisor, lower right lateral incisor, lower right cuspid, lower right first bicuspid, lower right second bicuspid, lower right first molar, lower right second molar and lower right third molar. Onset: The symptoms/episode began/occurred 1 week(s) ago. Duration: The symptoms are continuous, and are steadily getting worse. Modifying factors: The symptoms are alleviated by nothing, the symptoms are aggravated by food, talking. Associated signs and symptoms: The patient has no apparent associated signs or symptoms. The patient has experienced similar episodes in the past. 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 - Family history:: not pertinent. ROS: 05:07 Constitutional: Negative for fever, chills, and weight loss, Eyes: Negative for injury, bobbi pain, redness, and discharge, Neck: Negative for injury, pain, and swelling, Cardiovascular: Negative for chest pain, palpitations, and edema, Respiratory: Negative for shortness of breath, cough, wheezing, and pleuritic chest pain, Abdomen/GI: Negative for abdominal pain, nausea, vomiting, diarrhea, and constipation, Back: Negative for injury and pain, : Negative for injury, bleeding, discharge, and swelling, MS/Extremity: Negative for injury and deformity, Skin: Negative for injury, rash, and discoloration, Neuro: Negative for headache, weakness, numbness, tingling, and seizure. Exam: 05:14 Constitutional: This is a well developed, well nourished patient who is awake, alert, bobbi and in no acute distress. Head/Face: Normocephalic, atraumatic. Eyes: Pupils equal round and reactive to light, extra-ocular motions intact. Lids and lashes normal. Conjunctiva and sclera are non-icteric and not injected. Cornea within normal limits. Periorbital areas with no swelling, redness, or edema. Neck: Trachea midline, no thyromegaly or masses palpated, and no cervical lymphadenopathy. Supple, full range of motion without nuchal rigidity, or vertebral point tenderness. No Meningismus. Chest/axilla: Normal chest wall appearance and motion. Nontender with no deformity. No lesions are appreciated. Cardiovascular: Regular rate and rhythm with a normal S1 and S2. No gallops, murmurs, or rubs. Normal PMI, no JVD. No pulse deficits. Respiratory: Lungs have equal breath sounds bilaterally, clear to auscultation and percussion. No rales, rhonchi or wheezes noted. No increased work of breathing, no retractions or nasal flaring. Abdomen/GI: Soft, non-tender, with normal bowel sounds. No distension or tympany. No guarding or rebound. No evidence of tenderness throughout. Back: No spinal tenderness. No costovertebral tenderness. Full range of motion. Skin: Warm, dry with normal turgor. Normal color with no rashes, no lesions, and no evidence of cellulitis. MS/ Extremity: Pulses equal, no cyanosis. Neurovascular intact. Full, normal range of motion. Neuro: Awake and alert, GCS 15, oriented to person, place, time, and situation. Cranial nerves II-XII grossly intact. Motor strength 5/5 in all extremities. Sensory grossly intact. Cerebellar exam normal. Normal gait. 05:14 ENT: Mouth: Oral mucosa: normal, pink and intact, moist, Gums: swollen, Posterior pharynx: is normal, no acute changes. 05:35 ECG was reviewed by the Attending Physician. [facility] Vital Signs: 04:55 BP 123 / 89; Pulse 97; Resp 16; Temp 98.9(O); Pulse Ox 99% ; Weight 79.38 kg; Height 5 vc1 ft. 2 in. (157.48 cm); 06:04 BP 113 / 73; Pulse 82; Resp 18; Pulse Ox 99% on R/A; kl 07:49 BP 122 / 82 LA Sitting (auto/reg); Pulse 88 LA; Resp 18 S; Temp 97.7(O); Pulse Ox 100% kc6 on R/A; Pain 7/10; 08:58 BP 116 / 83; Pulse 81; Resp 16 S; Pulse Ox 100% on R/A; Pain 7/10; kc6 04:55 Body Mass Index 32.01 (79.38 kg, 157.48 cm) vc1 MDM: 04:49 Patient medically screened. [facility] 05:15 Differential diagnosis: dental caries. Data reviewed: vital signs, nurses notes, lab bobbi test result(s), EKG. 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 Test interpretation: by ED physician or midlevel provider: ECG. Counseling: I had a detailed discussion with the patient and/or guardian regarding: the historical points, exam findings, and any diagnostic results supporting the discharge/admit diagnosis, lab results, the need for outpatient follow up, for definitive care, a family practitioner, an oral maxilofacial specialist. 09/18 05:13 Order name: CBC with Diff; Complete Time: 07:21 bobbi 09/18 05:13 Order name: Comprehensive Metabolic Panel [facility] 09/18 05:13 Order name: Troponin HS [facility] 09/18 05:24 Order name: Glucose, Ancillary Testing; Complete Time: 05:26 EDMS 09/18 07:34 Order name: Glucose, Ancillary Testing; Complete Time: 07:38 EDMS 09/18 05:13 Order name: EKG; Complete Time: 05:14 bobbi 09/18 05:13 Order name: EKG - Nurse/Tech; Complete Time: 05:44 bobbi EC:35 Rate is 89 beats/min. Rhythm is regular. QRS [place] is Normal. ND interval is normal. QRS bobbi interval is normal. QT interval is normal. No Q waves. T waves are Normal. No ST changes noted. Clinical impression: Normal ECG and No evidence of ischemia. Interpreted by me. Reviewed by me. Administered Medications: 05:40 Drug: Rocephin (cefTRIAXone) 1 grams Route: IV; Rate: per protocol; Site: right forearm;kl 06:40 Follow up: Response: No adverse reaction; IV Status: Completed infusion; IV Intake: [id number] 05:45 Drug: NS 0.9% 1000 ml Route: IV; Rate: 1 bolus; Site: right forearm; kl 06:45 Follow up: Response: No adverse reaction; IV Status: Completed infusion; IV Intake: kc6 1000ml 05:50 Drug: KeFLEX (cephalexin) 500 mg Route: PO; kl 06:50 Follow up: Response: No adverse reaction kc6 05:50 Drug: Eliquis (apixaban) 10 mg Route: PO; kl 06:50 Follow up: Response: No adverse reaction kc6 06:04 Drug: Zofran (Ondansetron) 4 mg Route: IVP; Site: right forearm; kl 06:29 Follow up: Response: No adverse reaction; Marked relief of symptoms kl 06:05 Drug: Insulin Regular Human 10 units {Co-Signature: ll3 (Yue Jamison RN).} Route: kl IVP; Site: right forearm; 07:05 Follow up: Response: No adverse reaction; Blood sugar is lowered kc6 06:05 Drug: Insulin Regular Human 10 units {Co-Signature: ll3 (Yue Jamison RN).} Route: kl Sub-Q; Site: right upper arm; 07:05 Follow up: Response: No adverse reaction; Blood sugar is lowered kc6 06:05 Drug: fentaNYL (PF) 50 mcg Route: IVP; Site: right forearm; kl 07:05 Follow up: Response: No adverse reaction; Pain is decreased kc6 08:00 Drug: [place] (HYDROcodone-acetaminophen) 10 mg-325 mg 1 tabs Route: PO; kc6 09:01 Follow up: Response: No adverse reaction; Pain is unchanged, physician notified; RASS: kc6 Alert and Calm (0) Disposition Summary: 09/18/22 07:40 Discharge Ordered Location: Home bobbi Problem: new bobbi Symptoms: have improved bobbi Condition: Stable bobbi Diagnosis - Type 2 diabetes mellitus with hyperglycemia bobbi - Acute embolism and thrombosis of other specified veins bobbi - Dental caries, unspecified bobbi - Dental root caries bobbi Followup: bobbi - With: Private Physician - When: 2 - 3 days - Reason: Recheck today's complaints, Continuance of care, Re-evaluation by your physician Followup: bobbi - With: - When: 2 - 3 days - Reason: Recheck today's complaints, Re-evaluation by your physician Followup: bobbi - With: - When: 2 - 3 days - Reason: Recheck today's complaints, Re-evaluation by your physician Discharge Instructions: - Discharge Summary Sheet bobbi - Deep Vein Thrombosis bobbi - Dental Caries, Adult bobbi - Dental Pain bobbi - Type 2 Diabetes Mellitus, Diagnosis, Adult bobbi - Hyperglycemia bobbi - Dental Pain, [id number] bobbi - Diabetes Mellitus and Nutrition, Adult bobbi - Diet and Dental Disease bobbi - Dental Caries, Adult, [id number] bobbi - Type 2 Diabetes Mellitus, Self Care, Adult, [id number] [facility] Forms: - Medication Reconciliation Form bobbi - Thank You Letter bobbi - Antibiotic Education bobbi - Prescription Opioid Use [facility] Prescriptions: - Cephalexin 500 mg Oral Capsule - take 1 capsule by ORAL route every 6 hours for 10 days; 40 capsule; Refills: 0, [facility] Product Selection Permitted - Eliquis 5 mg Oral tablet - take 1 tablet by ORAL route 2 times per day; 60 tablet; Refills: 0, Product [facility] Selection Permitted - Eliquis 5 mg Oral tablet - take 2 tablet by ORAL route 2 times per day for 7 days; 28 tablet; Refills: 0, [facility] Product Selection Permitted Signatures: Dispatcher [employer] Milla Smith RN RN kl Anderson, Corey, MD MD cha Calcote, Vanessa, RN RN vc1 Viki Gilmore RN RN kc6 Yue Jamison RN ll3
--- NOTE | 2022-09-18 07:41 | ER ---
Nurse's Notes [facility] Name: Ara Mercado Age: 37 yrs Sex: Female : 1985 Arrival Date: 09/18/2022 Time: 04:43 Bed 5 Private MD: Diagnosis: Type 2 diabetes mellitus with hyperglycemia;Acute embolism and thrombosis of other specified veins;Dental caries, unspecified;Dental root caries Presentation: 09/18 04:55 Chief complaint: Patient states: "I have burning and pain in the back of my throat and vc1 my mouth. I have 2 blood clots a couple of weeks ago and the pain is in the same area. I also think I have a yeast infection and a UTI.". Ebola Screen: No symptoms or risks identified at this time. Initial Sepsis Screen: Does the patient meet any 2 criteria? HR > 90 bpm. No. Patient's initial sepsis screen is negative. Does the patient have a suspected source of infection? Yes: Dysuria/Frequency/Urgency/UTI. Risk Assessment: Do you want to hurt yourself or someone else? Patient reports no desire to harm self or others. Onset of symptoms is unknown. 04:55 Method Of Arrival: Ambulatory vc1 04:55 Acuity: CHARISSA 3 vc1 09:27 Coronavirus screen: At this time, the client does not indicate any symptoms associated kc6 with coronavirus-19. Triage Assessment: 04:59 General: Appears in no apparent distress. uncomfortable, Behavior is calm, cooperative, vc1 appropriate for age. Pain: Complains of pain in left aspect of posterior pharynx, right aspect of posterior pharynx and tongue Quality of pain is described as burning. EENT: Reports difficulty swallowing pain when swallowing. Neuro: Level of Consciousness is awake, Oriented to person, place, time, situation, Appropriate for age. Cardiovascular: No deficits noted. Respiratory: Airway is patent Respiratory effort is even, unlabored, Respiratory pattern is regular, symmetrical. GI: No deficits noted. : Reports pain with urination, vaginal itching. Derm: No deficits noted. Musculoskeletal: No deficits noted. 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 - Family history:: not pertinent. Screenin:01 Abuse screen: Denies threats or abuse. Nutritional screening: No deficits noted. vc1 Tuberculosis screening: No symptoms or risk factors identified. Fall Risk None identified. Assessment: 05:02 General: Appears uncomfortable, well groomed, well developed, Behavior is calm, kl cooperative. Pain: Complains of pain in mouth and tongue and right aspect of posterior pharynx and left aspect of posterior pharynx Pain currently is 10 out of 10 on a pain scale. Neuro: No deficits noted. Cardiovascular: No deficits noted. Respiratory: No deficits noted. Airway is patent Trachea midline Respiratory effort is even, unlabored, Breath sounds are clear. GI: No deficits noted. No signs and/or symptoms were reported involving the gastrointestinal system. : No deficits noted. No signs and/or symptoms were reported regarding the genitourinary system. EENT: Oral mucosa is moist. Poor dentition noted. Dental caries noted in lower left second bicuspid (#20), lower left first bicuspid (#21), lower left lateral incisor (#23), lower right central incisor (#25), lower right lateral incisor (#26), lower right cuspid (#27), lower right first bicuspid (#28) and lower right second bicuspid (#29). 07:49 Reassessment: Patient appears in no apparent distress at this time. No changes from kc6 previously documented assessment. Patient and/or family updated on plan of care and expected duration. Pain level reassessed. Patient is alert, oriented x 3, equal unlabored respirations, skin warm/dry/pink. client stated her pain is 7/10 to the right neck and lower back. 08:57 Reassessment: Patient appears in no apparent distress at this time. No changes from kc6 previously documented assessment. Patient and/or family updated on plan of care and expected duration. Pain level reassessed. Patient is alert, oriented x 3, equal unlabored respirations, skin warm/dry/pink. client stated her pain is still 7/10. stated, "the norco hasn't really helped any.". 09:27 EENT: Throat is clear is pink. kc6 Vital Signs: 04:55 BP 123 / 89; Pulse 97; Resp 16; Temp 98.9(O); Pulse Ox 99% ; Weight 79.38 kg; Height 5 vc1 ft. 2 in. (157.48 cm); 06:04 BP 113 / 73; Pulse 82; Resp 18; Pulse Ox 99% on R/A; kl 07:49 BP 122 / 82 LA Sitting (auto/reg); Pulse 88 LA; Resp 18 S; Temp 97.7(O); Pulse Ox 100% kc6 on R/A; Pain 7/10; 08:58 BP 116 / 83; Pulse 81; Resp 16 S; Pulse Ox 100% on R/A; Pain 7/10; kc6 04:55 Body Mass Index 32.01 (79.38 kg, 157.48 cm) vc1 ED Course: 04:43 Patient arrived in ED. ja2 04:49 Rashad Melgoza MD is Attending Physician. bobbi 04:58 Triage completed. vc1 04:59 Arm band placed on right wrist. vc1 05:01 Patient has correct armband on for positive identification. Bed in low position. Pulse vc1 ox on. NIBP on. 05:20 Missed attempt(s): 22 gauge in left forearm. kl 05:25 Missed attempt(s): 22 gauge in left upper arm. kl 05:30 Inserted saline lock: 22 gauge in right forearm, using aseptic technique. Blood kl collected. 05:44 Troponin HS Sent. kl 05:44 Comprehensive Metabolic Panel Sent. kl 05:44 CBC with Diff Sent. kl 05:57 EKG done, by ED staff, reviewed by Rashad Melgoza MD. jw7 07:08 Dillon Wilde RN is Primary Nurse. jd3 07:40 Royal Ayers DDS is Referral Physician. bobbi 07:40 Nick Franco MD is Referral Physician. bobbi 09:26 No provider procedures requiring assistance completed. IV discontinued, intact, kc6 bleeding controlled, No redness/swelling at site. Pressure dressing applied. Administered Medications: 05:40 Drug: Rocephin (cefTRIAXone) 1 grams Route: IV; Rate: per protocol; Site: right forearm;kl 06:40 Follow up: Response: No adverse reaction; IV Status: Completed infusion; IV Intake: [id number] 05:45 Drug: NS 0.9% 1000 ml Route: IV; Rate: 1 bolus; Site: right forearm; kl 06:45 Follow up: Response: No adverse reaction; IV Status: Completed infusion; IV Intake: kc6 1000ml 05:50 Drug: KeFLEX (cephalexin) 500 mg Route: PO; kl 06:50 Follow up: Response: No adverse reaction kc6 05:50 Drug: Eliquis (apixaban) 10 mg Route: PO; kl 06:50 Follow up: Response: No adverse reaction kc6 06:04 Drug: Zofran (Ondansetron) 4 mg Route: IVP; Site: right forearm; kl 06:29 Follow up: Response: No adverse reaction; Marked relief of symptoms kl 06:05 Drug: Insulin Regular Human 10 units {Co-Signature: ll3 (Yue Jamison RN).} Route: kl IVP; Site: right forearm; 07:05 Follow up: Response: No adverse reaction; Blood sugar is lowered kc6 06:05 Drug: Insulin Regular Human 10 units {Co-Signature: ll3 (Yue Jamison RN).} Route: kl Sub-Q; Site: right upper arm; 07:05 Follow up: Response: No adverse reaction; Blood sugar is lowered kc6 06:05 Drug: fentaNYL (PF) 50 mcg Route: IVP; Site: right forearm; kl 07:05 Follow up: Response: No adverse reaction; Pain is decreased kc6 08:00 Drug: [place] (HYDROcodone-acetaminophen) 10 mg-325 mg 1 tabs Route: PO; kc6 09:01 Follow up: Response: No adverse reaction; Pain is unchanged, physician notified; RASS: kc6 Alert and Calm (0) Medication: 09:27 VIS not applicable for this client. kc6 Intake: 06:40 IV: 10ml; Total: 10ml. kc6 06:45 IV: 1000ml; Total: 1010ml. kc6 Outcome: 07:40 Discharge ordered by MD. martines 09:26 Discharged to home ambulatory. kc6 09:26 Condition: stable 09:26 Discharge instructions given to patient, Instructed on discharge instructions, follow up and referral plans. medication usage, Demonstrated understanding of instructions, follow-up care, medications, Prescriptions given X 3. 09:28 Patient left the ED. kc6 Signatures: Milla Cooper, RN Rashad Butler MD MD cha Davies, VÍCTOR Carranza RN jd3 Shasha Taylor Vanessa, RN RN vc1 Bonnie Mensah7 Viki Gilmore RN RN kc6 Yue Jamison RN ll3
[2022-09-18] MEDS ORDERED: HYDROCODONE/APAP 10/325 TAB ONE (08:04)
[2022-09-18 09:17] LABS: Albumin 2.7 g/dL (3.4-5.0); Bilirubin Total 0.1 mg/dL (0.2-1.0); Potassium 3.3 mmol/L (3.5-5.1); Protein, Total 6.9 g/dL (6.4-8.2)
[2022-09-18 09:57] VITALS: TEMP 97.7; O2SAT 100
[2022-09-18 09:59] VITALS: BP 116/83
--- NOTE | 2022-09-18 13:07 | EKG ---
Test Date: 2022-09-18 Test Time: 05:28:14 Health Program Director: JULIO MEASUREMENT RESULTS: Intervals: Rate: 89 FL: 148 QRSD: 92 QT: 374 QTc: 455 [place]: P: 41 FL: 148 QRS: 84 T: 23 INTERPRETIVE STATEMENTS: Normal sinus rhythm Normal ECG Compared to ECG 07/19/2022 17:16:32 No significant changes Electronically Signed On 09-18-22 13:06:09 CDT by Nick Franco
== END 2022-09-18 09:28 | disposition home or self-care (01) ==
LOC: ER 04:40
DX: E11.65 Type 2 diabetes mellitus with hyperglycemia (principal); I82.890 Acute embolism and thrombosis of other specified veins; K02.7 Dental root caries; K02.9 Dental caries, unspecified; F17.210 Nicotine dependence, cigarettes, uncomplicated
CPT/HCPCS: 36415; 80053; 82947; 84484; 85025; 93005; 96365; 96372; 96375; 99284; J2405; J3010

== ENCOUNTER 2022-09-28 17:42 | Emergency (ER) | payer SELFPAY ==
[2022-09-28 18:57] LABS: Absolute Lymphocytes (CBC) 2.6 K/uL (0.7-4.9); Hematocrit 39.1 % (36.0-45.0); Lymphocytes % 19.8 % (15.3-44.8); MCV 90.6 fL (80-100); MPV 7.5 fL (7.6-11.3); RBC Red Blood Cell Count 4.32 M/uL (3.86-4.86)
[2022-09-28 19:08] LABS: Urine Blood 2+ (Negative); Urine Glucose Trace (Negative); Urine Protein 1+ (Negative); Urine pH 5.5 (5.0-7.0)
[2022-09-28 19:09] LABS: Potassium 3.6 mmol/L (3.5-5.1)
[2022-09-28 19:12] LABS: Urine Mucus Slight /HPF (None Seen); Urine RBC <5 /HPF (None Seen)
[2022-09-28] MEDS ORDERED: ONDANSETRON 4 MG/2 ML VIAL ONE (19:44)
[2022-09-28] MEDS ORDERED: FENTANYL CITR 100 MCG/2 ML ONE (19:44)
[2022-09-28] MEDS ORDERED: NA CHLORIDE 0.9% 0 ML ONE (19:44)
--- NOTE | 2022-09-28 20:58 | RAD REPORT ---
EXAM DESCRIPTION: CTAbdomen Pelvis Wo Contrast - 09/28/2022 8:40 pm CLINICAL HISTORY: abd pain COMPARISON: Stone Protocol dated 07/07/2022; Stone Protocol dated 06/07/2022; Abdomen Pelvis W Contr ast dated 05/28/2022; Stone Protocol dated 05/13/2022; Abdomen Pelvis W Contrast dated 08/05/2021 TECHNIQUE: CT of the abdomen and pelvis was performed. All CT scans are performed using dose optimization technique as appropriate and may include automated exposure control or mA/KV adjustment according to patient size. FINDINGS: Lower chest: No acute abnormality. Liver: No acute abnormality or suspicious lesions. Biliary: Cholecystectomy Stomach: No significant focal abnormality. Duodenum: No significant focal abnormality. Pancreas: No significant abnormality. Spleen: No significant abnormality. Adrenal: No suspicious lesions. Kidney/ureter: No hydronephrosis. No renal calculi. Retroperitoneum: No retroperitoneal adenopathy. Vascular: No aneurysm. Bowel: No significant focal abnormality. Normal appendix. Peritoneum: No ascites or free air. Bladder: Grossly unremarkable. Reproductive: No adnexal masses. Bones: No acute fracture. Other: n/a IMPRESSION: No acute intra-abdominal or pelvic finding. Normal appendix.
--- NOTE | 2022-09-28 21:28 | EDPHYS ---
Physician Documentation [facility] Name: Ara Mercado Age: 37 yrs Sex: Female : 1985 Arrival Date: 09/28/2022 Time: 17:43 Bed 18 Private MD: ED Physician Brannon Cooper HPI: 09/28 21:54 This 37 yrs old Female presents to ER via Ambulatory with complaints of Vaginal kb Bleeding, Weakness, Diarrhea, Dizziness, Headache. 21:54 The patient presents with vaginal bleeding that is heavy. Onset: The symptoms/episode kb began/occurred 4 day(s) ago. Modifying factors: The symptoms are alleviated by nothing, the symptoms are aggravated by nothing. Associated signs and symptoms: Pertinent positives: diarrhea, vaginal bleeding, abd pain. Severity of symptoms: At their worst the symptoms were moderate, in the emergency department the symptoms are unchanged. The patient has not experienced similar symptoms in the past. The patient has not recently seen a physician. Pt reports heavier period than normal and lower abd pain for 4 days. Reports she has also had diarrhea. . 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 - Social history:: Smoking status: Patient reports the use of cigarette tobacco products, smokes one pack cigarettes per day. ROS: 21:54 Constitutional: Negative for fever, chills, and weight loss. kb 21:54 Abdomen/GI: Positive for abdominal pain, diarrhea, Negative for nausea and vomiting. 21:54 : Positive for vaginal bleeding. 21:54 All other systems are negative. Exam: 21:53 Constitutional: This is a well developed, well nourished patient who is awake, alert, kb and in no acute distress. Head/Face: Normocephalic, atraumatic. ENT: Moist Mucous membranes Cardiovascular: Regular rate and rhythm with a normal S1 and S2. No gallops, murmurs, or rubs. No pulse deficits. Respiratory: Respirations even and unlabored. No increased work of breathing. Talking in full sentences Skin: Warm, dry with normal turgor. Normal color. MS/ Extremity: Pulses equal, no cyanosis. Neurovascular intact. Full, normal range of motion. Neuro: Awake and alert, GCS 15, oriented to person, place, time, and situation. Moves all extremities. Normal gait. Psych: Awake, alert, with orientation to person, place and time. Behavior, mood, and affect are within normal limits. 21:53 Abdomen/GI: Inspection: abdomen appears normal, Bowel sounds: normal, Palpation: soft, in all quadrants, moderate abdominal tenderness, in the suprapubic area and right lower quadrant. Vital Signs: 17:59 BP 142 / 88; Pulse 99; Resp 20; Temp 99.0; Pulse Ox 100% ; Weight 80.74 kg; Height 5 kb3 ft. 2 in. (157.48 cm); Pain 9/10; 20:29 BP 121 / 77; Pulse 93; Resp 16 S; Pulse Ox 100% ; bb 21:25 BP 99 / 66; Pulse 73; Resp 16 S; Pulse Ox 97% on R/A; bb 21:48 BP 106 / 62; Pulse 69; Resp 16 S; Pulse Ox 99% on R/A; bb 17:59 Body Mass Index 32.56 (80.74 kg, 157.48 cm) kb3 [place] Coma Score: 19:21 Eye Response: spontaneous(4). Verbal Response: oriented(5). Motor Response: obeys db commands(6). Total: 15. MDM: 18:06 Patient medically screened. kb 21:53 Data reviewed: vital signs, nurses notes. Data interpreted: Pulse oximetry: on room air kb is 99 %. Interpretation: normal. Counseling: I had a detailed discussion with the patient and/or guardian regarding: the historical points, exam findings, and any diagnostic results supporting the discharge/admit diagnosis, lab results, radiology results, the need for outpatient follow up, a family practitioner, an OB/Gyne specialist, to return to the emergency department if symptoms worsen or persist or if there are any questions or concerns that arise at home. 09/28 18:21 Order name: CBC with Diff; Complete Time: 19:06 kb 09/28 18:21 Order name: Basic Metabolic Panel; Complete Time: 19:10 kb 09/28 18:21 Order name: Urine Microscopic Only; Complete Time: 19:14 kb 09/28 19:08 Order name: Urine Dipstick-Ancillary; Complete Time: 19:10 EDMS 09/28 19:09 Order name: Urine --Ancillary (enter results); Complete Time: 19:25 wm 09/28 18:21 Order name: IV Start; Complete Time: 18:58 kb 09/28 20:17 Order name: Abdomen ; Complete Time: 21:02 EDMS 09/28 18:21 Order name: Urine Dipstick-Ancillary (obtain specimen) 09/28 19:00 Order name: Labs - recollect needed: recollect T\T\S hemolyzed; Complete Time: 21:24 eb Administered Medications: 21:12 CANCELLED (Duplicate Order): fentaNYL (PF) 25 mcg IVP once snw 21:20 CANCELLED (Physician Discretion): NS 0.9% 1000 ml IV at 1000 ml once bb 21:21 Not Given (Other Intervention Used): Zofran (Ondansetron) 4 mg IVP once; over 2 minutes bb 21:21 Drug: fentaNYL (PF) 50 mcg Route: IM; Site: right gluteus; bb 21:50 Follow up: Response: No adverse reaction bb 21:21 Drug: Zofran (ondansetron) 4 mg Route: IM; Site: right gluteus; bb 21:50 Follow up: Response: No adverse reaction bb Disposition: 09/29 06:01 Co-signature as Attending Physician, Brannon Cooper MD I agree with the assessment and kdr plan of care. Disposition Summary: 09/28/22 21:27 Discharge Ordered Location: Home kb Condition: Stable kb Diagnosis - Dysmenorrhea, unspecified kb - Lower abdominal pain, unspecified kb Followup: kb - With: Emergency Department - When: As needed - Reason: Worsening of condition Followup: kb - With: Private Physician - When: 2 - 3 days - Reason: Recheck today's complaints, Continuance of care, Re-evaluation by your physician Discharge Instructions: - Discharge Summary Sheet kb - Abdominal Pain, Adult, [id number] kb - Dysmenorrhea, [id number] kb Forms: - Medication Reconciliation Form kb - Thank You Letter kb - Antibiotic Education kb - Prescription Opioid Use kb Signatures: Dispatcher [employer] EDMS Celina Driver, SPECIALIST EMPLOYEE LABOR RELATIONS-C SPECIALIST EMPLOYEE LABOR RELATIONS-Ckb Brannon Cooper MD MD kdr Waters, Shelly, SPECIALIST EMPLOYEE LABOR RELATIONS-C SPECIALIST EMPLOYEE LABOR RELATIONS-Sara Velazquez, RN RN bb Yohana Ruth Kelly, RN RN kb3 Corrections: (The following items were deleted from the chart) 09/28 20:17 18:22 Abdomen Pelvis W Con+CT.RAD.BRZ ordered. EDMS EDMS 21:12 19:10 fentaNYL (PF) 25 mcg IVP once ordered. kb snw 21:20 19:10 NS 0.9% 1000 ml IV at 1000 ml once ordered. kb bb
--- NOTE | 2022-09-28 21:28 | ER ---
Nurse's Notes [facility] Name: Ara Mercado Age: 37 yrs Sex: Female : 1985 Arrival Date: 09/28/2022 Time: 17:43 Bed 18 Private MD: Diagnosis: Dysmenorrhea, unspecified;Lower abdominal pain, unspecified Presentation: 09/28 17:59 Chief complaint: Patient states: Pt reports right lower abdominal pain x4 days with kb3 heavier menstrual bleeding than normal and diarrhea. Pt reports she has been on Eliquis for almost 1 month for a blood clot in her neck. Coronavirus screen: Vaccine status: Patient reports receiving the 2nd dose of the covid vaccine. Client denies travel out of the [place] in the last 14 days. Ebola Screen: Patient negative for fever greater than or equal to 101.5 degrees Fahrenheit, and additional compatible Ebola Virus Disease symptoms Patient denies exposure to infectious person. Patient denies travel to an Ebola-affected area in the 21 days before illness onset. Initial Sepsis Screen: Does the patient meet any 2 criteria? No. Patient's initial sepsis screen is negative. Does the patient have a suspected source of infection? No. Patient's initial sepsis screen is negative. Risk Assessment: Do you want to hurt yourself or someone else? Patient reports no desire to harm self or others. Onset of symptoms was September 24, 2022. 17:59 Method Of Arrival: Ambulatory kb3 17:59 Acuity: CHARISSA 3 kb3 Triage Assessment: 18:03 General: Appears in no apparent distress. Behavior is calm, cooperative. Pain: kb3 Complains of pain in right lower quadrant Pain does not radiate. Pain currently is 9 out of 10 on a pain scale. : Reports vaginal bleeding that is bright red, moderate flow. 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 - Social history:: Smoking status: Patient reports the use of cigarette tobacco products, smokes one pack cigarettes per day. Screenin:20 Abuse screen: Denies threats or abuse. Denies injuries from another. Nutritional db screening: No deficits noted. Tuberculosis screening: No symptoms or risk factors identified. Fall Risk None identified. No fall in past 12 months (0 pts). No secondary diagnosis (0 pts). IV access (20 points). Ambulatory Aid- None/Bed Rest/Nurse Assist (0 pts). Gait- Normal/Bed Rest/Wheelchair (0 pts) Mental Status- Oriented to own ability (0 pts). Total Hannah Fall Scale indicates No Risk (0-24 pts). Assessment: 17:55 Reassessment: Patient appears in no apparent distress at this time. Patient is alert, db oriented x 3, equal unlabored respirations, skin warm/dry/pink. patient states came in with vaginal bleeding more than normal with blood clots. States is on Eloquis for blood thinners. ambulatory. General: Appears in no apparent distress. Behavior is calm, cooperative, appropriate for age. Pain: Complains of pain in abdomen and pelvis. Neuro: No deficits noted. Level of Consciousness is awake, alert, obeys commands, Oriented to person, place, time, situation, Appropriate for age. Cardiovascular: No deficits noted. Respiratory: No deficits noted. GI: No deficits noted. Abdomen is flat, non-distended, Abd is soft Abd is non tender. : No deficits noted. Urine is clear. EENT: No deficits noted. No signs and/or symptoms were reported regarding the EENT system. Derm: No deficits noted. No signs and/or symptoms reported regarding the dermatologic system. Musculoskeletal: No deficits noted. No signs and/or symptoms reported regarding the musculoskeletal system. 19:21 : Reports vaginal bleeding that is. db 20:26 Reassessment: Patient is alert, oriented x 3, equal unlabored respirations, skin bb warm/dry/pink. attempted IV access unsucessfully Celina Driver NP notified. 21:24 Reassessment: Patient is alert, oriented x 3, equal unlabored respirations, skin bb warm/dry/pink. states she is still in pain Celina Villa WOM[facility]S [facility] C[facility] NURSE PRACTITIONER notified new orders received pt medicated see JAN. 21:49 Reassessment: Patient is alert, oriented x 3, equal unlabored respirations, skin bb warm/dry/pink. pt verbalized understanding of and agrees to plan of care discharge instructions given pt ambulated with steady gait to exit. Vital Signs: 17:59 BP 142 / 88; Pulse 99; Resp 20; Temp 99.0; Pulse Ox 100% ; Weight 80.74 kg; Height 5 kb3 ft. 2 in. (157.48 cm); Pain 9/10; 20:29 BP 121 / 77; Pulse 93; Resp 16 S; Pulse Ox 100% ; bb 21:25 BP 99 / 66; Pulse 73; Resp 16 S; Pulse Ox 97% on R/A; bb 21:48 BP 106 / 62; Pulse 69; Resp 16 S; Pulse Ox 99% on R/A; bb 17:59 Body Mass Index 32.56 (80.74 kg, 157.48 cm) kb3 [place] Coma Score: 19:21 Eye Response: spontaneous(4). Verbal Response: oriented(5). Motor Response: obeys db commands(6). Total: 15. ED Course: 17:43 Patient arrived in ED. as 18:03 Triage completed. kb3 18:03 Arm band placed on right wrist. kb3 18:06 Celina Driver FNP-C is [facility]. kb 18:06 Brannon Cooper MD is Attending Physician. kb 18:11 Joy Pires, VÍCTOR is Primary Nurse. db 18:40 Inserted saline lock: 20 gauge in right antecubital area, using aseptic technique. db Blood collected. 19:18 Patient has correct armband on for positive identification. Bed in low position. Call db light in reach. Side rails up X 1. Report given to Sara RENEE. 19:48 Radiology exam delayed due to IV insertion attempt and/or patient not having bq appropriate IV at this time. 20:00 T\T\S collected, blood band applied to patient. Missed attempt(s): 18 gauge in right bb antecubital area. Bleeding controlled, band aid applied, catheter tip intact. 20:41 Abdomen In Process Unspecified. EDMS 21:50 No provider procedures requiring assistance completed. Patient did not have IV access bb during this emergency room visit. Administered Medications: 21:12 CANCELLED (Duplicate Order): fentaNYL (PF) 25 mcg IVP once snw 21:20 CANCELLED (Physician Discretion): NS 0.9% 1000 ml IV at 1000 ml once bb 21:21 Not Given (Other Intervention Used): Zofran (Ondansetron) 4 mg IVP once; over 2 minutes bb 21:21 Drug: fentaNYL (PF) 50 mcg Route: IM; Site: right gluteus; bb 21:50 Follow up: Response: No adverse reaction bb 21:21 Drug: Zofran (ondansetron) 4 mg Route: IM; Site: right gluteus; bb 21:50 Follow up: Response: No adverse reaction bb Medication: 19:20 VIS not applicable for this client. db Outcome: 21:27 Discharge ordered by . kb 21:50 Discharged to home ambulatory. bb 21:50 Condition: stable 21:50 Discharge instructions given to patient, Instructed on discharge instructions, follow up and referral plans. Demonstrated understanding of instructions, follow-up care. 21:50 Patient left the ED. bb Signatures: Dispatcher [employer] EDMS Celina Driver, MANAGER ART-C MANAGER ART-CkMaci Montes Amelia as Ballard, Brenda, VÍCTOR RN bb Erica Forbes, RN RN kb3 Joy Pires, VÍCTOR RN db Itzel Sanches MANAGER ART-Csnw
[2022-09-28 22:47] VITALS: TEMP 99
[2022-09-28 22:59] VITALS: BP 106/62; O2SAT 99
== END 2022-09-28 21:50 | disposition home or self-care (01) ==
LOC: ER 17:42
DX: N94.6 Dysmenorrhea, unspecified (principal); R10.30 Lower abdominal pain, unspecified; F17.210 Nicotine dependence, cigarettes, uncomplicated; Z88.1 Allergy status to other antibiotic agents; Z88.5 Allergy status to narcotic agent
CPT/HCPCS: 36415; 74176; 80048; 81003; 81015; 81025; 82565; 85025; 96372; 99284; J2405; J3010; J7030

== ENCOUNTER 2022-10-20 17:09 | Emergency (ER) | payer SELFPAY ==
[2022-10-20 18:26] LABS: SARS-COV-2 RT PCR NEGATIVE (NEGATIVE)
[2022-10-20] MEDS ORDERED: NA CHLORIDE 0.9% 1,000 ML ONE (18:32)
[2022-10-20 18:59] LABS: Urine Blood 2+ (Negative); Urine Glucose Negative (Negative); Urine Protein Negative (Negative); Urine Specific Gravity 1.015 (1.005-1.030)
[2022-10-20 19:09] LABS: Urine RBC <5 /HPF (None Seen)
[2022-10-20] MEDS ORDERED: ACETAMINOPHEN 500 MG TAB ONE ×2 (19:41→19:45)
[2022-10-20 19:57] LABS: Absolute Lymphocytes (CBC) 2.6 K/uL (0.7-4.9); Hematocrit 33.6 % (36.0-45.0); Lymphocytes % 19.2 % (15.3-44.8); MCV 91.2 fL (80-100); MPV 7.6 fL (7.6-11.3); RBC Red Blood Cell Count 3.68 M/uL (3.86-4.86)
[2022-10-20 20:29] LABS: Albumin 2.9 g/dL (3.4-5.0); Bilirubin Total 0.3 mg/dL (0.2-1.0); Potassium 3.4 mmol/L (3.5-5.1); Protein, Total 7.1 g/dL (6.4-8.2)
--- NOTE | 2022-10-20 20:31 | EDPHYS ---
Physician Documentation [facility] Name: Ara Mercado Age: 37 yrs Sex: Female : 1985 Arrival Date: 10/20/2022 Time: 17:21 Bed 13 Private MD: ED Physician Mahamed Mcclellan HPI: 10/20 19:23 This 37 yrs old Female presents to ER via Ambulatory with complaints of dehydration, kb bodyaches, Vaginal Bleeding - x4 wks. 19:23 The patient or guardian reports cough, that is intermittent, described as moderate, flu kb symptoms, low-grade fever, myalgias. Onset: The symptoms/episode began/occurred 2 day(s) ago. The patient has not recently seen a physician. 19:24 Severity of symptoms: At their worst the symptoms were moderate, in the emergency kb department the symptoms are unchanged. Modifying factors: The symptoms are alleviated by nothing, the symptoms are aggravated by nothing. Associated signs and symptoms: Pertinent positives: diarrhea, fever, rhinorrhea, sore throat. The patient has not experienced similar symptoms in the past. Pt reports cough, congestion, bodyaches, decreased urine output, and dehydration for 2 days. Also reports vaginal bleeding for 4 weeks and diarrhea for one month. 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 - Social history:: Smoking status: unknown. ROS: 19:22 Cardiovascular: Negative for chest pain, palpitations, and edema. kb 19:22 Constitutional: Positive for body aches, chills, fatigue, fever, malaise. 19:22 ENT: Positive for rhinorrhea, sinus congestion. 19:22 Respiratory: Positive for cough, Negative for dyspnea on exertion, hemoptysis, orthopnea, pleurisy, shortness of breath, sputum production, wheezing. 19:22 Abdomen/GI: Positive for diarrhea, Negative for abdominal pain, nausea and vomiting. 19:22 : Positive for vaginal bleeding. 19:22 All other systems are negative. Exam: 19:22 Constitutional: This is a well developed, well nourished patient who is awake, alert, kb and in no acute distress. Head/Face: Normocephalic, atraumatic. ENT: Moist Mucous membranes Cardiovascular: Regular rate and rhythm with a normal S1 and S2. No gallops, murmurs, or rubs. No pulse deficits. Respiratory: Respirations even and unlabored. No increased work of breathing. Talking in full sentences Abdomen/GI: Soft, non-tender. No distention Skin: Warm, dry with normal turgor. Normal color. MS/ Extremity: Pulses equal, no cyanosis. Neurovascular intact. Full, normal range of motion. Neuro: Awake and alert, GCS 15, oriented to person, place, time, and situation. Moves all extremities. Normal gait. Psych: Awake, alert, with orientation to person, place and time. Behavior, mood, and affect are within normal limits. Vital Signs: 17:31 BP 132 / 76; Pulse 103; Resp 18; Temp 99.6; Pulse Ox 100% ; Weight 80.74 kg; Height 5 kb3 ft. 2 in. (157.48 cm); Pain 10/10; 19:10 BP 128 / 81 Supine; Pulse 95; tp1 19:10 BP 127 / 84 Sitting; Pulse 98; tp1 19:10 BP 123 / 85 Standing; Pulse 106; Resp 16; Pulse Ox 100% ; tp1 20:31 BP 126 / 84; Pulse 98; Resp 16; Pulse Ox 96% on R/A; tp1 17:31 Body Mass Index 32.56 (80.74 kg, 157.48 cm) kb3 MDM: 17:30 Patient medically screened. kb 19:23 Data reviewed: vital signs, nurses notes. Data interpreted: Pulse oximetry: on room air kb is 100 %. Interpretation: normal. Transition of care: After a detail discussion of the patient's case, care is transferred to Michael COOPER. 10/20 17:30 Order name: Urine Microscopic Only; Complete Time: 19:10 kb 10/20 17:30 Order name: COVID-19/FLU A+B; Complete Time: 18:36 kb 10/20 17:30 Order name: CBC with Diff; Complete Time: 19:58 kb 10/20 17:30 Order name: CMP; Complete Time: 20:29 kb 10/20 18:59 Order name: Urine Dipstick-Ancillary; Complete Time: 19:10 EDMS 10/20 17:30 Order name: Urine Dipstick-Ancillary (obtain specimen); Complete Time: 19:09 kb 10/20 17:30 Order name: Urine Test (obtain specimen); Complete Time: 19:09 kb 10/20 17:30 Order name: IV Saline Lock; Complete Time: 19:09 kb 10/20 17:30 Order name: Labs collected and sent; Complete Time: 19:09 kb 10/20 17:30 Order name: Orthostatics; Complete Time: 19:10 kb Administered Medications: 18:40 Drug: NS 0.9% 1000 ml Route: IV; Rate: 1000 ml; Site: right antecubital; tp1 20:48 Follow up: IV Status: Completed infusion; IV Intake: 550ml tp1 19:45 Drug: Tylenol 1000 mg Route: PO; tp1 20:32 Follow up: Response: Pain is unchanged, physician notified tp1 Disposition: 19:15 Co-signature as Attending Physician, Mahamed Mcclellan DO I was immediately available on-site ms3 in the Emergency Department for consultation in the care of the patient. Disposition Summary: 10/20/22 20:31 Discharge Ordered Location: Home [facility] Condition: Stable [facility] Diagnosis - Abnormal uterine and vaginal bleeding, unspecified [facility] Followup: [facility] - With: Nicolle Shaikh MD - When: 2 - 3 days - Reason: Recheck today's complaints, Continuance of care, Re-evaluation by your physician Discharge Instructions: - Discharge Summary Sheet [facility] - Abnormal Uterine Bleeding [facility] Forms: - Medication Reconciliation Form [facility] - Thank You Letter [facility] - Antibiotic Education [facility] - Prescription Opioid Use [facility] Prescriptions: - dicyclomine 20 mg Oral Tablet - take 1 tablet by ORAL route 3 times per day; 20 tablet; Refills: 0, Product [facility] Selection Permitted Signatures: Dispatcher [employer] EDMI Celina Driver FNP-C FNP-Ckb Mickail, Joel, PA PA jmm Sims, Marcus, DO DO ms3 Marissa Solomon RN RN tp1 Erica Forbes RN RN kb3 Corrections: (The following items were deleted from the chart) 19:26 19:24 Pt reports cough, congestion, bodyaches, diarrhea, decreased urine output, and kb dehydration for 2 days. Aslo reports vaginal bleeding for 4 weeks. kb
--- NOTE | 2022-10-20 20:31 | ER ---
Nurse's Notes [facility] Name: Ara Mercado Age: 37 yrs Sex: Female : 1985 Arrival Date: 10/20/2022 Time: 17:21 Bed 13 Private MD: Diagnosis: Abnormal uterine and vaginal bleeding, unspecified Presentation: 10/20 17:31 Chief complaint: Patient states: headache, body aches, diarrhea, decreased urination, kb3 cough and congestion x2 days. Also reports vaginal bleeding x4 weeks. Coronavirus screen: Vaccine status: Patient reports being unvaccinated. Client denies travel out of the [place] in the last 14 days. Ebola Screen: Patient negative for fever greater than or equal to 101.5 degrees Fahrenheit, and additional compatible Ebola Virus Disease symptoms Patient denies exposure to infectious person. Patient denies travel to an Ebola-affected area in the 21 days before illness onset. Initial Sepsis Screen: Does the patient meet any 2 criteria? No. Patient's initial sepsis screen is negative. Does the patient have a suspected source of infection? No. Patient's initial sepsis screen is negative. Risk Assessment: Do you want to hurt yourself or someone else? Patient reports no desire to harm self or others. Onset of symptoms was October 18, 2022. 17:31 Method Of Arrival: Ambulatory kb3 17:31 Acuity: CHARISSA 4 kb3 Triage Assessment: 17:33 General: Appears in no apparent distress. Behavior is calm, cooperative. Pain: kb3 Complains of pain in head, chest, abdomen, pelvis, right arm, left arm, right leg and left leg Pain does not radiate. Pain currently is 10 out of 10 on a pain scale. Quality of pain is described as aching. : Reports vaginal bleeding that is light flow, since 4 weeks. 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 - Social history:: Smoking status: unknown. Screenin:34 Abuse screen: Denies threats or abuse. Denies injuries from another. Nutritional kb3 screening: No deficits noted. Tuberculosis screening: No symptoms or risk factors identified. Fall Risk None identified. Assessment: 17:34 General: See triage note. kb3 17:34 Reassessment: Patient appears in no apparent distress at this time. No changes from kb3 previously documented assessment. 18:12 General: Pt moved to room 13 for further evaluation. kb3 18:35 General: Appears in no apparent distress. comfortable, Behavior is calm, cooperative. tp1 Pain: Complains of pain in lower back Pain does not radiate. Pain currently is 8 out of 10 on a pain scale. Quality of pain is described as dull. Neuro: Level of Consciousness is awake, alert, obeys commands, Oriented to person, place, time, situation. Cardiovascular: Patient's skin is warm and dry. Respiratory: Airway is patent Respiratory effort is even, unlabored. Respiratory:. GI: Abdomen is obese, Abd is soft and non tender X 4 quads. Reports diarrhea. : Reports vaginal bleeding that is moderate flow, 7 pads a day. EENT: Reports nasal congestion. Derm: Skin is pink, warm \T\ dry. Musculoskeletal: Circulation, motion, and sensation intact. 19:30 Reassessment: Patient appears in no apparent distress at this time. No changes from tp1 previously documented assessment. Patient and/or family updated on plan of care and expected duration. Pain level reassessed. Patient is alert, oriented x 3, equal unlabored respirations, skin warm/dry/pink. 20:32 Reassessment: Patient appears in no apparent distress at this time. No changes from tp1 previously documented assessment. Patient is alert, oriented x 3, equal unlabored respirations, skin warm/dry/pink. Vital Signs: 17:31 BP 132 / 76; Pulse 103; Resp 18; Temp 99.6; Pulse Ox 100% ; Weight 80.74 kg; Height 5 kb3 ft. 2 in. (157.48 cm); Pain 10/10; 19:10 BP 128 / 81 Supine; Pulse 95; tp1 19:10 BP 127 / 84 Sitting; Pulse 98; tp1 19:10 BP 123 / 85 Standing; Pulse 106; Resp 16; Pulse Ox 100% ; tp1 20:31 BP 126 / 84; Pulse 98; Resp 16; Pulse Ox 96% on R/A; tp1 17:31 Body Mass Index 32.56 (80.74 kg, 157.48 cm) kb3 ED Course: 17:21 Patient arrived in ED. am2 17:22 Celina Driver FNP-C is PHCP. kb 17:22 Mahamed Mcclellan DO is Attending Physician. kb 17:33 Triage completed. kb3 17:34 Arm band placed on right wrist. kb3 17:34 Patient has correct armband on for positive identification. kb3 17:34 No provider procedures requiring assistance completed. Patient did not have IV access kb3 during this emergency room visit. 18:29 Marissa Solomon, VÍCTOR is Primary Nurse. tp1 19:11 Inserted saline lock: 20 gauge in right antecubital area, using aseptic technique. tp1 19:22 PHCP role handed off by Celina Driver FNP-C [facility] 19:22 Michael Emmanuel PA is PHCP. jmm 20:31 Nicolle Shaikh MD is Referral Physician. m 20:48 IV discontinued, intact, bleeding controlled, No redness/swelling at site. Pressure tp1 dressing applied. Administered Medications: 18:40 Drug: NS 0.9% 1000 ml Route: IV; Rate: 1000 ml; Site: right antecubital; tp1 20:48 Follow up: IV Status: Completed infusion; IV Intake: 550ml tp1 19:45 Drug: Tylenol 1000 mg Route: PO; tp1 20:32 Follow up: Response: Pain is unchanged, physician notified tp1 Medication: 17:34 VIS not applicable for this client. kb3 Intake: 20:48 IV: 550ml; Total: 550ml. tp1 Outcome: 20:31 Discharge ordered by . [facility] 20:47 Discharged to home ambulatory. tp1 20:47 Condition: good 20:47 Discharge instructions given to patient, Instructed on discharge instructions, follow up and referral plans. medication usage, Demonstrated understanding of instructions, follow-up care, medications, Prescriptions given X 1. 20:48 Patient left the ED. tp1 Signatures: Celina Driver FNP-C FNP-Ckb Michael Emmanuel PA PA jmm Moreno, Amanda am2 Marissa Solomon RN RN tp1 Erica Forbes RN RN kb3 Corrections: (The following items were deleted from the chart) 19:53 19:10 BP 128 / 81 Supine; tp1 tp1 19:53 19:10 BP 127 / 84 Sitting; tp1 tp1 19:53 19:10 BP 123 / 85 Standing; tp1 tp1 19:53 19:10 Pulse 98bpm; Resp 16bpm; Pulse Ox 100%; tp1 tp1 20:32 20:31 Reassessment: Patient appears in no apparent distress at this time. No changes tp1 from previously documented assessment. Patient and/or family updated on plan of care and expected duration. Pain level reassessed. Patient is alert, oriented x 3, equal unlabored respirations, skin warm/dry/pink. tp1
[2022-10-20 21:08] VITALS: TEMP 99.6
[2022-10-20 21:20] VITALS: BP 126/84; O2SAT 96
== END 2022-10-20 20:48 | disposition home or self-care (01) ==
LOC: ER 17:09
DX: N93.9 Abnormal uterine and vaginal bleeding, unspecified (principal); Z20.822 Contact with and (suspected) exposure to COVID-19
CPT/HCPCS: 0240U; 36415; 80053; 81003; 81015; 85025; 96360; 96361; 99283; J7030

== ENCOUNTER 2022-10-31 13:15 | Emergency (ER) | payer SELFPAY ==
--- NOTE | 2022-10-31 14:07 | RAD REPORT ---
EXAM DESCRIPTION: RAD - Chest Pa And Lat (2 Views) - 10/31/2022 1:59 pm CLINICAL HISTORY: COUGH Chest pain. COMPARISON: Chest Single View dated 07/19/2022; Chest Single View dated 06/22/2022; Chest Single View dated 06/17/2022; Chest Single View dated 03/05/2022 FINDINGS: The lungs are clear. The heart is normal in size. Small hiatal hernia. No displaced fractu res. IMPRESSION: No acute or concerning finding suspected.
[2022-10-31] MEDS ORDERED: ONDANSETRON 4 MG/2 ML VIAL ONE (14:10)
[2022-10-31] MEDS ORDERED: HYDROCODONE/CHLORPHEN 5 ML/OSYR ONE (14:10)
[2022-10-31 14:20] LABS: Urine Blood 3+ (Negative); Urine Glucose Trace (Negative); Urine Protein Negative (Negative)
[2022-10-31] MEDS ORDERED: ONDANSETRON 4 MG (ODT) TAB ONE (14:22)
[2022-10-31 14:48] LABS: SARS-COV-2 RT PCR NEGATIVE (NEGATIVE)
[2022-10-31] MEDS ORDERED: KETOROLAC 30 MG/ML INJ ONE (15:12)
[2022-10-31] MEDS ORDERED: FENTANYL CITR 100 MCG/2 ML ONE ×2 (15:41→19:31)
[2022-10-31 16:41] LABS: Absolute Lymphocytes (CBC) 2.5 K/uL (0.7-4.9); Hematocrit 34.2 % (36.0-45.0); Lymphocytes % 19.3 % (15.3-44.8); MCV 92.3 fL (80-100); MPV 7.1 fL (7.6-11.3)
[2022-10-31 17:14] LABS: Albumin 3.4 g/dL (3.4-5.0); Bilirubin Total 0.4 mg/dL (0.2-1.0); Potassium 3.6 mmol/L (3.5-5.1); Protein, Total 8.1 g/dL (6.4-8.2)
--- NOTE | 2022-10-31 17:59 | RAD REPORT ---
EXAM DESCRIPTION: CT - Abdomen Pelvis Wo Contrast - 10/31/2022 5:47 pm CLINICAL HISTORY: Abdominal pain. Right flank pain COMPARISON: Abdomen Pelvis Wo Contrast dated 09/28/2022 TECHNIQUE: CT imaging of the abdomen and pelvis was performed without contrast. Solid organ, bowel a nd vascular assessment is limited due to lack of IV and oral contrast. All CT scans are performed using dose optimization technique as appropriate and may include automated exposure control or mA/KV adjustment according to patient size. FINDINGS: The lower lung braun are clear.Cholecystectomy clips. The liver, spleen, pancreas, adrenal glands and kidneys are within normal limits for a limited non-co ntrast examination. No bowel obstruction, free air, free fluid or abscess. The appendix is normal. [address] The osseous structures are within normal limits. IMPRESSION: No acute intra-abdominal or pelvic findings. 5 cm right ovarian cyst. A limited non-contrast examination was performed as detailed.
--- NOTE | 2022-10-31 18:57 | ER ---
Nurse's Notes [facility] Name: Ara Mercado Age: 37 yrs Sex: Female : 1985 Arrival Date: 10/31/2022 Time: 13:18 Bed 11 Private MD: Diagnosis: Low back pain;Acute upper respiratory infection, unspecified Presentation: 10/31 13:29 Chief complaint: Patient states: she has been sneezing, coughing, having body aches and ap3 other flu symptoms for three days now. Coronavirus screen: Client presents with at least one sign or symptom that may indicate coronavirus-19. Ebola Screen: No symptoms or risks identified at this time. Initial Sepsis Screen: Does the patient meet any 2 criteria? HR > 90 bpm. Does the patient have a suspected source of infection? No. Patient's initial sepsis screen is negative. Risk Assessment: Do you want to hurt yourself or someone else? Patient reports no desire to harm self or others. Onset of symptoms was October 28, 2022. 13:29 Method Of Arrival: Ambulatory ap3 13:29 Acuity: CHARISSA 4 ap3 Triage Assessment: 13:32 General: Appears ill, Behavior is cooperative. Pain: Complains of pain in generalized ap3 body aches. Neuro: Level of Consciousness is awake, alert, obeys commands, Oriented to person, place, time, situation, Speech is normal. Cardiovascular: Patient's skin is warm and dry. Respiratory: Reports cough that is Airway is patent Respiratory effort is even, unlabored, Respiratory pattern is regular, symmetrical. Historical: - Allergies: 13:30 Amoxicillin; ap3 13:30 Bactrim; ap3 13:30 Flagyl; ap3 13:30 Morphine; ap3 13:30 Toradol; ap3 13:30 Tramadol HCl; ap3 - PMHx: 13:30 diabetes mellitus; DVT; Hypertensive disorder; Hypothyroidism; NSTEMI; ap3 - PSHx: 13:30 Cholecystectomy; ap3 - Immunization history:: Client reports receiving the 2nd dose of the Covid vaccine, Flu vaccine is not up to date. - Social history:: Smoking status: Patient reports the use of cigarette tobacco products, smokes one-half pack cigarettes per day. Screenin:33 Abuse screen: Denies threats or abuse. Nutritional screening: No deficits noted. ap3 Tuberculosis screening: No symptoms or risk factors identified. Fall Risk None identified. Vital Signs: 13:29 BP 120 / 81; Pulse 104; Resp 19; Temp 98.4; Pulse Ox 100% ; Weight 80.29 kg; Height 5 ap3 ft. 2 in. (157.48 cm); 19:36 BP 122 / 91; Pulse 89; Resp 15; Pulse Ox 100% ; Pain 8/10; jl7 13:29 Body Mass Index 32.37 (80.29 kg, 157.48 cm) ap3 ED Course: 13:18 Patient arrived in ED. rg4 13:24 Alexandru Fields NP is PHCP. pm1 13:24 Alex Lemons MD is Attending Physician. pm1 13:30 Triage completed. ap3 13:33 Arm band placed on right wrist. ap3 13:37 Kathie Stevenson, VÍCTOR is Primary Nurse. kr3 13:56 Chest Pa And Lat (2 Views) XRAY In Process Unspecified. EDMS 17:47 Abdomen In Process Unspecified. EDMS 19:36 Patient has correct armband on for positive identification. jl7 19:36 No provider procedures requiring assistance completed. Patient did not have IV access jl7 during this emergency room visit. Administered Medications: 14:18 Drug: Tussionex Pennkinetic ER (chlorpheniramine-hydrocodone) Suspension 5 ml Route: PO;kr3 14:23 Drug: Zofran (Ondansetron) 4 mg Route: PO; kr3 17:07 Drug: fentaNYL (PF) 50 mcg {Note: Alexandru Fields changed order to IM .} Route: IVP; kr3 Site: Other; 19:32 Drug: fentaNYL (PF) 25 mcg Route: IM; Site: left deltoid; jl7 19:36 Follow up: Response: Medication administered at discharge. jl7 Medication: 19:36 VIS not applicable for this client. jl7 Outcome: 18:57 Discharge ordered by . pm1 19:37 Discharged to home ambulatory, with family. jl7 19:37 Condition: stable 19:37 Discharge instructions given to patient, family, Instructed on discharge instructions, follow up and referral plans. medication usage, Demonstrated understanding of instructions, follow-up care, medications, Prescriptions given X 1. 19:38 Patient left the ED. jl7 Signatures: Dispatcher [employer] Alexandru Shrestha, STEEL POURER STEEL POURER pm1 Rabia Santiago rg4 Yumiko Richardson, RN RN jl7 Nicole Benavides RN RN ap3 Kathie Stevenson, RN RN kr3
--- NOTE | 2022-10-31 18:58 | EDPHYS ---
Physician Documentation [facility] Name: Ara Mercado Age: 37 yrs Sex: Female : 1985 Arrival Date: 10/31/2022 Time: 13:18 Bed 11 Private MD: ED Physician Alex Lemons HPI: 10/31 13:32 This 37 yrs old Female presents to ER via Ambulatory with complaints of Flu Symptoms. pm1 13:32 The patient or guardian reports cough, flu symptoms. Onset: The symptoms/episode pm1 began/occurred 3 day(s) ago. Severity of symptoms: in the emergency department the symptoms are unchanged. Modifying factors: The symptoms are alleviated by nothing, the symptoms are aggravated by nothing. Associated signs and symptoms: Pertinent positives: diarrhea, nausea, sore throat, Pertinent negatives: chest pain, fever, vomiting, shortness of breath. The patient has not experienced similar symptoms in the past. The patient has not recently seen a physician. Historical: - Allergies: 13:30 Amoxicillin; ap3 13:30 Bactrim; ap3 13:30 Flagyl; ap3 13:30 Morphine; ap3 13:30 Toradol; ap3 13:30 Tramadol HCl; ap3 - PMHx: 13:30 diabetes mellitus; DVT; Hypertensive disorder; Hypothyroidism; NSTEMI; ap3 - PSHx: 13:30 Cholecystectomy; ap3 - Immunization history:: Client reports receiving the 2nd dose of the Covid vaccine, Flu vaccine is not up to date. - Social history:: Smoking status: Patient reports the use of cigarette tobacco products, smokes one-half pack cigarettes per day. ROS: 13:32 Eyes: Negative for injury, pain, redness, and discharge. pm1 13:32 Cardiovascular: Negative for chest pain, palpitations, and edema. 13:32 MS/Extremity: Negative for injury and deformity, Skin: Negative for injury, rash, and discoloration, Neuro: Negative for headache, weakness, numbness, tingling, and seizure. 13:32 Constitutional: Positive for body aches, Negative for fever. 13:32 ENT: Positive for sore throat, Negative for ear pain. 13:32 Respiratory: Positive for cough, Negative for shortness of breath. 13:32 Abdomen/GI: Positive for nausea, diarrhea, Negative for abdominal pain, vomiting. 13:32 Back: Positive for right lower back pain reproduced with coughing. 13:32 : Positive for urinary symptoms. 13:32 All other systems are negative. Exam: 13:32 Constitutional: This is a well developed, well nourished patient who is awake, alert, pm1 and in no acute distress. Head/Face: Normocephalic, atraumatic. 13:32 Respiratory: Lungs have equal breath sounds bilaterally, clear to auscultation and percussion. No rales, rhonchi or wheezes noted. No increased work of breathing, no retractions or nasal flaring. 13:32 Skin: Warm, dry with normal turgor. Normal color with no rashes, no lesions, and no evidence of cellulitis. MS/ Extremity: Pulses equal, no cyanosis. Neurovascular intact. Full, normal range of motion. 13:32 ENT: Posterior pharynx: no acute changes, Tonsils: are normal in appearance, erythema, is not appreciated, peritonsillar mass, is not appreciated. 13:32 Neck: Exam negative for acute changes, ROM/movement: no acute changes. 13:32 Cardiovascular: Exam negative for acute changes, Rate: tachycardic, Rhythm: regular, Pulses: no pulse deficits are appreciated, Heart sounds: normal, normal S1and S2. 13:32 Abdomen/GI: Inspection: obese Palpation: abdomen is soft and non-tender, in all quadrants. 13:32 Back: normal spinal alignment noted, muscle spasm, is appreciated in the right mid back. 13:32 Neuro: Exam negative for acute changes, Orientation: is normal, Mentation: is normal, Motor: is normal, moves all fours, Gait: is steady, at a normal pace, without difficulty. Vital Signs: 13:29 BP 120 / 81; Pulse 104; Resp 19; Temp 98.4; Pulse Ox 100% ; Weight 80.29 kg; Height 5 ap3 ft. 2 in. (157.48 cm); 19:36 BP 122 / 91; Pulse 89; Resp 15; Pulse Ox 100% ; Pain 8/10; jl7 13:29 Body Mass Index 32.37 (80.29 kg, 157.48 cm) ap3 MDM: 13:24 Patient medically screened. pm1 13:36 Data reviewed: vital signs. Data interpreted: Pulse oximetry: on room air is 100 %. pm1 Interpretation: normal. 18:56 Counseling: I had a detailed discussion with the patient and/or guardian regarding: the pm1 historical points, exam findings, and any diagnostic results supporting the discharge/admit diagnosis, lab results, radiology results, the need for outpatient follow up, to return to the emergency department if symptoms worsen or persist or if there are any questions or concerns that arise at home. 19:17 ED course: Patient requesting pain medication prior to going home. She reports right pm1 lower back pain increased with coughing. However she would like to have cough medication and pain medication for discharge. Patient reports no allergy to codeine. 19:21 ED course: [place] reviewed. Last narcotic prescription 07/01/2022. pm1 08 13:28 Order name: COVID-19/FLU A+B; Complete Time: 14:50 pm1 10/31 13:32 Order name: Strep; Complete Time: 14:06 pm1 10/31 14:08 Order name: Throat Culture EDMS 10/31 14:20 Order name: Urine Dipstick-Ancillary; Complete Time: 14:33 EDMS 10/31 14:31 Order name: Urine --Ancillary (enter results); Complete Time: 14:46 kj1 10/31 15:36 Order name: CBC with Diff; Complete Time: 16:48 pm1 10/31 13:32 Order name: Chest Pa And Lat (2 Views) XRAY; Complete Time: 14:19 pm1 10/31 15:36 Order name: CMP; Complete Time: 17:20 pm1 10/31 17:47 Order name: Abdomen ; Complete Time: 18:00 EDMS 10/31 17:49 Order name: Glucose, Ancillary Testing; Complete Time: 17:50 EDMS 10/31 13:32 Order name: Urine Dipstick-Ancillary (obtain specimen); Complete Time: 14:23 pm1 10/31 13:32 Order name: Urine Test (obtain specimen); Complete Time: 14:23 pm1 Administered Medications: 14:18 Drug: Tussionex Pennkinetic ER (chlorpheniramine-hydrocodone) Suspension 5 ml Route: PO;kr3 14:23 Drug: Zofran (Ondansetron) 4 mg Route: PO; kr3 17:07 Drug: fentaNYL (PF) 50 mcg {Note: Alexandru Fields changed order to IM .} Route: IVP; kr3 Site: Other; 19:32 Drug: fentaNYL (PF) 25 mcg Route: IM; Site: left deltoid; jl7 19:36 Follow up: Response: Medication administered at discharge. jl7 Disposition Summary: 10/31/22 18:57 Discharge Ordered Location: Home pm1 Problem: new pm1 Symptoms: have improved pm1 Condition: Stable pm1 Diagnosis - Low back pain pm1 - Acute upper respiratory infection, unspecified pm1 Followup: pm1 - With: Emergency Department - When: As needed - Reason: Worsening of condition Followup: pm1 - With: Private Physician - When: 2 - 3 days - Reason: Recheck today's complaints, Continuance of care, Re-evaluation by your physician Discharge Instructions: - Discharge Summary Sheet pm1 - Acute Back Pain, Adult pm1 - Upper Respiratory Infection, Adult pm1 Forms: - Medication Reconciliation Form pm1 - Thank You Letter pm1 - Antibiotic Education pm1 - Prescription Opioid Use pm1 Prescriptions: - Tessalon Perles 100 mg Oral Capsule - take 1 capsule by ORAL route every 8 hours As needed; 15 capsule; Refills: 0, pm1 Product Selection Permitted - Tylenol-Codeine #3 300 mg-30 mg Oral - take 2 tablet by ORAL route every 6 hours As needed; 20 tablet; Refills: 0, pm1 Product Selection Permitted Addendum: 11/03/2022 19:07 Co-signature as Attending Physician, Alex Lemons MD. r n Signatures: Dispatcher [employer] EDMS Alex Lemons MD MD rn Marinas, Patrick, [employer] pm1 Yumiko Richardson RN RN jl7 Nicole Benavides RN RN ap3 Kathie Stevenson RN RN kr3 Corrections: (The following items were deleted from the chart) 10/31 17:47 15:37 Abdomen Pelvis W Con+CT.RAD.BRZ ordered. EDRI EDMS
[2022-10-31 20:48] VITALS: TEMP 98.4; O2SAT 100
[2022-10-31 20:49] VITALS: BP 122/91
== END 2022-10-31 19:38 | disposition home or self-care (01) ==
LOC: ER 13:15
DX: J06.9 Acute upper respiratory infection, unspecified (principal); M54.50 Low back pain, unspecified; Z20.822 Contact with and (suspected) exposure to COVID-19; Z88.1 Allergy status to other antibiotic agents; Z88.5 Allergy status to narcotic agent; Z88.8 Allergy status to other drugs, medicaments and biological substances; F17.210 Nicotine dependence, cigarettes, uncomplicated
CPT/HCPCS: 0240U; 36415; 71046; 74176; 80053; 81003; 81025; 82947; 85025; 87070; 87081; 96372; 96374; 99283; J2405; J3010; Q0162

== ENCOUNTER 2022-11-04 14:17 | Emergency (ER) | payer SELFPAY ==
[2022-11-04 15:42] LABS: Absolute Lymphocytes (CBC) 1.6 K/uL (0.7-4.9); Hematocrit 32.6 % (36.0-45.0); Lymphocytes % 14.4 % (15.3-44.8); MCV 91.9 fL (80-100); MPV 7.1 fL (7.6-11.3); RBC Red Blood Cell Count 3.54 M/uL (3.86-4.86)
[2022-11-04] MEDS ORDERED: NA CHLORIDE 0.9% 1,000 ML ONE (15:42)
[2022-11-04] MEDS ORDERED: MORPHINE 4 MG/ML SYR ONE (15:42)
[2022-11-04] MEDS ORDERED: FENTANYL CITR 100 MCG/2 ML ONE ×2 (15:54→18:58)
[2022-11-04] MEDS ORDERED: ONDANSETRON 4 MG/2 ML VIAL ONE (15:56)
[2022-11-04 15:59] LABS: Albumin 3.1 g/dL (3.4-5.0); Bilirubin Total 0.2 mg/dL (0.2-1.0); Potassium 4.2 mmol/L (3.5-5.1); Protein, Total 7.6 g/dL (6.4-8.2)
[2022-11-04] MEDS ORDERED: DIAZEPAM 10 MG/2 ML INJ SYRINGE ONE (17:44)
[2022-11-04 17:55] LABS: Urine Blood Trace-intact (Negative); Urine Glucose Negative (Negative); Urine Protein Negative (Negative); Urine Specific Gravity 1.015 (1.005-1.030)
--- NOTE | 2022-11-04 18:42 | RAD REPORT ---
EXAM DESCRIPTION: CTAbdomen Pelvis W Contrast - 11/04/2022 6:16 pm CLINICAL HISTORY: back pain, vomiting, abdominal pain COMPARISON: Abdomen Pelvis W Contrast dated 05/28/2022; Abdomen Pelvis W Contrast dated 04/01/2022; Abdomen Pelvis W Contrast dated 01/22/2022; Abdomen Pelvis W Contrast dated 10/02/2021 TECHNIQUE: CT of the abdomen and pelvis was performed. All CT scans are performed using dose optimization technique as appropriate and may include automated exposure control or mA/KV adjustment according to patient size. FINDINGS: Lower chest: No acute abnormality. Liver: No acute abnormality or suspicious lesions. Biliary: Cholecystectomy Stomach: No significant focal abnormality. Duodenum: No significant focal abnormality. Pancreas: No significant abnormality. Spleen: No significant abnormality. Adrenal: No suspicious lesions. Kidney/ureter: No hydronephrosis. No renal calculi. Retroperitoneum: No retroperitoneal adenopathy. Vascular: No aneurysm. Bowel: No significant focal abnormality. Normal appendix. Peritoneum: No ascites or free air. Bladder: Grossly unremarkable. Reproductive: No adnexal masses. Bones: No acute fracture. Other: n/a IMPRESSION: No acute intra-abdominal or pelvic finding. Normal appendix.
--- NOTE | 2022-11-04 18:49 | EDPHYS ---
Physician Documentation [facility] Name: Ara Mercado Age: 37 yrs Sex: Female : 1985 Arrival Date: 11/04/2022 Time: 14:20 Bed DIS3 Private MD: ED Physician Mahamed Mcclellan HPI: 11/04 14:40 This 37 yrs old Female presents to ER via Ambulatory with complaints of Nausea/Vomiting.jmm 14:40 The patient presents to the emergency department with nausea, vomiting, abdominal pain. jmm Onset: The symptoms/episode began/occurred gradually, 1 day(s) ago. Possible causes: unknown. The symptoms are aggravated by nothing. The symptoms are alleviated by nothing. Associated signs and symptoms: Pertinent positives: abdominal pain, Pertinent negatives: fever. This is a 37 year old female with a history of dm, htn, that presents to the ED with complaints of lower back pain, abdominal pain, vomiting. Denies dysuria. . DIRECTOR OF ENTERTAINMENT: 14:38 LMP 10/25/2022 ld1 Historical: - Allergies: 14:38 Amoxicillin; ld1 14:38 Bactrim; ld1 14:38 Flagyl; ld1 14:38 Morphine; ld1 14:38 Toradol; ld1 14:38 Tramadol HCl; ld1 - PMHx: 14:38 diabetes mellitus; DVT; Hypertensive disorder; Hypothyroidism; NSTEMI; ld1 - PSHx: 14:38 Cholecystectomy; ld1 - Immunization history:: Adult Immunizations not immunized, Client reports receiving the 2nd dose of the Covid vaccine. - Social history:: Smoking status: Patient reports the use of cigarette tobacco products, smokes one pack cigarettes per day. ROS: 14:40 Constitutional: Negative for fever, chills, and weight loss, Cardiovascular: Negative jmm for chest pain, palpitations, and edema, Respiratory: Negative for shortness of breath, cough, wheezing, and pleuritic chest pain. 14:40 All other systems are negative. Exam: 14:40 Constitutional: This is a well developed, well nourished patient who is awake, alert, jmm and in no acute distress. Head/Face: atraumatic. Eyes: EOMI, no conjunctival erythema appreciated ENT: Moist Mucus Membranes Neck: Trachea midline, Supple Chest/axilla: Normal chest wall appearance and motion. Cardiovascular: Regular rate and rhythm. No edema appreciated Respiratory: Normal respirations, no respiratory distress appreciated Abdomen/GI: Non distended Back: Normal ROM Skin: General appearance color normal MS/ Extremity: Moves all extremities, no obvious deformities appreciated, no edema noted to the lower extremities Neuro: Awake and alert Psych: Behavior is normal, Mood is normal, Patient is cooperative and pleasant Vital Signs: 14:36 BP 110 / 76; Pulse 108; Resp 18; Temp 98.6(O); Pulse Ox 100% on R/A; Weight 80.29 kg; ld1 Height 5 ft. 2 in. (157.48 cm); Pain 8/10; 14:36 Body Mass Index 32.37 (80.29 kg, 157.48 cm) ld1 MDM: 14:44 Patient medically screened. [facility] 18:48 Data reviewed: vital signs, nurses notes. Counseling: I had a detailed discussion with [facility] the patient and/or guardian regarding: the historical points, exam findings, and any diagnostic results supporting the discharge/admit diagnosis, lab results, radiology results, the need for outpatient follow up, to return to the emergency department if symptoms worsen or persist or if there are any questions or concerns that arise at home. 11/04 14:44 Order name: CBC with Diff; Complete Time: 15:46 [facility] 11/04 14:44 Order name: CMP; Complete Time: 16:01 [facility] 11/04 14:44 Order name: Lipase; Complete Time: 16:01 [facility] 11/04 16:01 Order name: CT Abd/Pelvis - IV Contrast Only; Complete Time: 18:47 [facility] 11/04 17:55 Order name: Urine Dipstick-Ancillary; Complete Time: 17:56 [facility] 11/04 17:56 Order name: Urine --Ancillary (enter results) 11/04 14:44 Order name: IV Saline Lock; Complete Time: 15:30 [facility] 11/04 14:44 Order name: Labs collected and sent; Complete Time: 15:37 [facility] 11/04 14:44 Order name: Urine Dipstick-Ancillary (obtain specimen); Complete Time: 17:54 [facility] 11/04 14:44 Order name: Urine Test (obtain specimen); Complete Time: 17:54 [facility] Administered Medications: 16:02 Drug: NS 0.9% 1000 ml Route: IV; Rate: 1 bolus; Site: right forearm; iw 16:02 Drug: fentaNYL (PF) 50 mcg Route: IVP; Site: right forearm; iw 16:03 Drug: Zofran (Ondansetron) 4 mg Route: IVP; Site: right forearm; iw 17:48 Drug: Valium (diazepam) 5 mg Route: IVP; Site: right forearm; iw 18:59 Drug: fentaNYL (PF) 50 mcg Route: IVP; Site: right forearm; iw Disposition: 17:58 Co-signature as Attending Physician, Mahamed Mcclellan DO I was immediately available onsite ms3 in the emergency department for consultation in the care of the patient. Disposition Summary: 11/04/22 18:49 Discharge Ordered Location: Home [facility] Condition: Stable [facility] Diagnosis - Other abdominal pain [facility] Followup: [facility] - With: Private Physician - When: 2 - 3 days - Reason: Recheck today's complaints, Continuance of care, Re-evaluation by your physician Discharge Instructions: - Discharge Summary Sheet [facility] - Abdominal Pain, Adult [facility] Forms: - Medication Reconciliation Form [facility] - Thank You Letter [facility] - Antibiotic Education [facility] - Prescription Opioid Use [facility] Prescriptions: - ONDANSETRON 4 mg ODT - take 1 tablet by SUBLINGUAL route every 4-6 hours; 20 tablet; Refills: 0, [facility] Product Selection Permitted - Pepcid 20 mg Oral Tablet - take 1 tablet by ORAL route every 12 hours for 10 days; 20 tablet; Refills: 0, [facility] Product Selection Permitted - orphenadrine citrate 100 mg Oral Tablet Sustained Release - take 1 tablet by ORAL route 2 times per day As needed; 20 tablet; Refills: 0, [facility] Product Selection Permitted Signatures: Dispatcher [employer] Michael Beltran PA PA jmm Williams, Irene, RN RN iw Mahamed Mcclellan DO DO ms3 Linsey Nelson RN RN ld1
--- NOTE | 2022-11-04 18:49 | ER ---
Nurse's Notes [facility] Name: Ara Mercado Age: 37 yrs Sex: Female : 1985 Arrival Date: 11/04/2022 Time: 14:20 Bed DIS3 Private MD: Diagnosis: Other abdominal pain Presentation: 11/04 14:36 Chief complaint: Patient states: C/O congestion, N/V/D. Mid/lower back pain X 1 month - ld1 reports chronic back pain due to bone spurs. Coronavirus screen: At this time, the client does not indicate any symptoms associated with coronavirus-19. Ebola Screen: No symptoms or risks identified at this time. Initial Sepsis Screen: Does the patient meet any 2 criteria? No. Patient's initial sepsis screen is negative. Does the patient have a suspected source of infection? No. Patient's initial sepsis screen is negative. Risk Assessment: Do you want to hurt yourself or someone else? Patient reports no desire to harm self or others. Onset of symptoms was November 04, 2022 at 14:38. 14:36 Method Of Arrival: Ambulatory ld1 14:36 Acuity: CHARISSA 3 ld1 Triage Assessment: 14:38 General: Appears in no apparent distress. comfortable, Behavior is calm, cooperative, ld1 appropriate for age. Pain: Complains of pain in back Pain does not radiate. Pain currently is 8 out of 10 on a pain scale. Quality of pain is described as throbbing, Pain began suddenly. EENT: No signs and/or symptoms were reported regarding the EENT system. Neuro: Level of Consciousness is awake, alert, obeys commands, Oriented to person, place, time, situation. Cardiovascular: Capillary refill < 3 seconds Patient's skin is warm and dry. Respiratory: Airway is patent Respiratory effort is even, unlabored. GI: Abdomen is round non-distended, Reports diarrhea, nausea, vomiting. : No signs and/or symptoms were reported regarding the genitourinary system. Derm: No signs and/or symptoms reported regarding the dermatologic system. Musculoskeletal: No signs and/or symptoms reported regarding the musculoskeletal system. DOG WARDEN: 14:38 LMP 10/25/2022 ld1 Historical: - Allergies: 14:38 Amoxicillin; ld1 14:38 Bactrim; ld1 14:38 Flagyl; ld1 14:38 Morphine; ld1 14:38 Toradol; ld1 14:38 Tramadol HCl; ld1 - PMHx: 14:38 diabetes mellitus; DVT; Hypertensive disorder; Hypothyroidism; NSTEMI; ld1 - PSHx: 14:38 Cholecystectomy; ld1 - Immunization history:: Adult Immunizations not immunized, Client reports receiving the 2nd dose of the Covid vaccine. - Social history:: Smoking status: Patient reports the use of cigarette tobacco products, smokes one pack cigarettes per day. Assessment: 18:30 Reassessment: pt states she is still having pain , Michael COOPER notified. iw Vital Signs: 14:36 BP 110 / 76; Pulse 108; Resp 18; Temp 98.6(O); Pulse Ox 100% on R/A; Weight 80.29 kg; ld1 Height 5 ft. 2 in. (157.48 cm); Pain 8/10; 14:36 Body Mass Index 32.37 (80.29 kg, 157.48 cm) ld1 ED Course: 14:20 Patient arrived in ED. mr 14:38 Triage completed. ld1 14:38 Arm band placed on right wrist. ld1 14:40 Michael Emmanuel PA is PHCP. jmm 14:40 Mahamed Mcclellan DO is Attending Physician. jmm 15:30 Lyndsay Zuluaga, ÍVCTOR is Primary Nurse. iw 18:16 CT Abd/Pelvis - IV Contrast Only In Process Unspecified. EDMS 19:09 Primary Nurse role handed off by Lyndsay Zuluaga, RN mw2 19:16 Lyndsay Zuluaga, RN is Primary Nurse. iw 19:17 IV discontinued, intact, bleeding controlled, No redness/swelling at site. iw 19:17 No provider procedures requiring assistance completed. iw Administered Medications: 16:02 Drug: NS 0.9% 1000 ml Route: IV; Rate: 1 bolus; Site: right forearm; iw 16:02 Drug: fentaNYL (PF) 50 mcg Route: IVP; Site: right forearm; iw 16:03 Drug: Zofran (Ondansetron) 4 mg Route: IVP; Site: right forearm; iw 17:48 Drug: Valium (diazepam) 5 mg Route: IVP; Site: right forearm; iw 18:59 Drug: fentaNYL (PF) 50 mcg Route: IVP; Site: right forearm; iw Outcome: 18:49 Discharge ordered by . delia 19:16 Discharged to home ambulatory. iw 19:16 Condition: stable 19:16 Discharge instructions given to patient, Instructed on discharge instructions, follow up and referral plans. medication usage, Demonstrated understanding of instructions, follow-up care, medications, Prescriptions given X 3. 19:17 Patient left the ED. iw Signatures: Dispatcher [employer] EDMS Michael Emmanuel PA PA jmm Rivera, Mary mr Lyndsay Zuluaga, RN RN Ingrid Rios 2 Linsey Nelson RN RN ld1
[2022-11-04 19:21] VITALS: BP 110/76; TEMP 98.6; O2SAT 100
[2022-11-04 22:26] LABS: Urine Specific Gravity/Preg 1.015 (1.005-1.030)
== END 2022-11-04 19:17 | disposition home or self-care (01) ==
LOC: ER 14:17
DX: R10.9 Unspecified abdominal pain (principal); F17.210 Nicotine dependence, cigarettes, uncomplicated; I10 Essential (primary) hypertension; Z88.1 Allergy status to other antibiotic agents; Z88.5 Allergy status to narcotic agent; Z88.8 Allergy status to other drugs, medicaments and biological substances
CPT/HCPCS: 36415; 74177; 80053; 81003; 81025; 83690; 85025; 96374; 96375; 99283; J2405; J3010; J3360; J7030; Q9967

== ENCOUNTER 2022-11-11 12:30 | Emergency (ER) | payer SELFPAY ==
[2022-11-11] MEDS ORDERED: FAMOTIDINE 20 MG/2 ML VIAL IV ONE (13:07)
[2022-11-11] MEDS ORDERED: NA CHLORIDE 0.9% 1,000 ML ONE (13:08)
[2022-11-11 13:12] LABS: Urine Blood Negative (Negative); Urine Glucose Negative (Negative); Urine Protein Negative (Negative); Urine pH 6.5 (5.0-7.0)
[2022-11-11] MEDS ORDERED: FENTANYL CITR 100 MCG/2 ML ONE (13:57)
[2022-11-11 14:00] LABS: Urine Bacteria <20 /HPF (<20); Urine Crystals Unidentified Few /HPF (None Seen); Urine RBC <5 /HPF (None Seen)
[2022-11-11 14:07] LABS: Absolute Lymphocytes (CBC) 2.4 K/uL (0.7-4.9); Lymphocytes % 18.3 % (15.3-44.8); MCV 90.9 fL (80-100); MPV 7.1 fL (7.6-11.3); RBC Red Blood Cell Count 3.41 M/uL (3.86-4.86)
[2022-11-11 14:18] LABS: Albumin 3.2 g/dL (3.4-5.0); Bilirubin Total 0.3 mg/dL (0.2-1.0); Potassium 3.5 mmol/L (3.5-5.1); Protein, Total 7.5 g/dL (6.4-8.2)
[2022-11-11] MEDS ORDERED: PROMETHAZINE INJ 25 MG/ML AMP ONE (14:50)
--- NOTE | 2022-11-11 15:42 | EDPHYS ---
Physician Documentation [facility] Name: Ara Mercado Age: 37 yrs Sex: Female : 1985 Arrival Date: 11/11/2022 Time: 12:33 Bed 17 Private MD: ED Physician Mahamed Mcclellan HPI: 11/11 13:54 This 37 yrs old Female presents to ER via Ambulatory with complaints of snw Nausea/Vomiting, Dizziness. 13:54 The patient presents to the emergency department with nausea, vomiting, diarrhea. snw Onset: The symptoms/episode began/occurred acutely, 6 week(s) ago, and became persistent. Possible causes: unknown. The symptoms are aggravated by nothing. The symptoms are alleviated by nothing. Associated signs and symptoms: Pertinent positives: diarrhea, nausea, vomiting. Severity of symptoms: At their worst the symptoms were moderate severe. The patient has not experienced similar symptoms in the past. The patient has not recently seen a physician. 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 - Social history:: Smoking status: Patient reports the use of cigarette tobacco products, smokes one-half pack cigarettes per day. ROS: 13:53 Eyes: Negative for injury, pain, redness, and discharge, ENT: Negative for injury, snw pain, and discharge, Neck: Negative for injury, pain, and swelling, Cardiovascular: Negative for chest pain, palpitations, and edema, Respiratory: Negative for shortness of breath, cough, wheezing, and pleuritic chest pain, Back: Negative for injury and pain, : Negative for injury, bleeding, discharge, and swelling, MS/Extremity: Negative for injury and deformity, Skin: Negative for injury, rash, and discoloration, Neuro: Negative for headache, weakness, numbness, tingling, and seizure, Psych: Negative for depression, anxiety, suicide ideation, homicidal ideation, and hallucinations. 13:53 Constitutional: Positive for body aches, malaise, poor PO intake. 13:53 Abdomen/GI: Positive for abdominal pain, nausea and vomiting. Exam: 13:51 Head/Face: Normocephalic, atraumatic. Eyes: Pupils equal round and reactive to light, snw extra-ocular motions intact. Lids and lashes normal. Conjunctiva and sclera are non-icteric and not injected. Cornea within normal limits. Periorbital areas with no swelling, redness, or edema. Neck: Trachea midline, no thyromegaly or masses palpated, and no cervical lymphadenopathy. Supple, full range of motion without nuchal rigidity, or vertebral point tenderness. No Meningismus. Chest/axilla: Normal chest wall appearance and motion. Nontender with no deformity. No lesions are appreciated. Respiratory: Lungs have equal breath sounds bilaterally, clear to auscultation and percussion. No rales, rhonchi or wheezes noted. No increased work of breathing, no retractions or nasal flaring. 13:51 Back: No spinal tenderness. No costovertebral tenderness. Full range of motion. 13:51 Skin: Warm, dry with normal turgor. Normal color with no rashes, no lesions, and no evidence of cellulitis. MS/ Extremity: Pulses equal, no cyanosis. Neurovascular intact. Full, normal range of motion. Neuro: Awake and alert, GCS 15, oriented to person, place, time, and situation. Cranial nerves II-XII grossly intact. Motor strength 5/5 in all extremities. Sensory grossly intact. Cerebellar exam normal. Normal gait. Psych: Awake, alert, with orientation to person, place and time. Behavior, mood, and affect are within normal limits. 13:51 Constitutional: The patient appears alert, awake, listless, uncomfortable. 13:51 ENT: TM's: are normal, Nose: is normal, Mouth: Tongue: dry, Voice: is normal. 13:51 Cardiovascular: Rate: tachycardic, Rhythm: regular. 13:51 Abdomen/GI: Inspection: abdomen appears normal, Bowel sounds: normal, Palpation: moderate abdominal tenderness, in all quadrants. Vital Signs: 12:41 BP 110 / 78; Pulse 100; Resp 16; Temp 98.2; Pulse Ox 99% ; Weight 80.29 kg; Height 5 [facility] ft. 2 in. (157.48 cm); Pain 6/10; 14:00 BP 124 / 78; Pulse 94; Resp 15; Pulse Ox 98% on R/A; Pain 9/10; hb 14:55 BP 127 / 85; Pulse 94; Resp 17; Pulse Ox 100% on R/A; hb 15:45 BP 124 / 80; Pulse 88; Resp 16; Pulse Ox 99% on R/A; hb 12:41 Body Mass Index 32.37 (80.29 kg, 157.48 cm) [facility] MDM: 12:49 Patient medically screened. snw 15:44 Data reviewed: vital signs, nurses notes. Data interpreted: Pulse oximetry: on room air snw is 100 %. Interpretation: normal. Counseling: I had a detailed discussion with the patient and/or guardian regarding: the historical points, exam findings, and any diagnostic results supporting the discharge/admit diagnosis, lab results, the need for outpatient follow up, to return to the emergency department if symptoms worsen or persist or if there are any questions or concerns that arise at home. Special discussion: Based on the patient's Hx, exam, and Dx evaluation, there is no indication for emergent surgery or inpatient Tx. It is understood by the patient/guardian that if the Sx's persist or worsen they need to return immediately for re-evaluation. Based on the history and exam findings, there is no indication for further emergent testing or inpatient evaluation. 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 I discussed with the patient/guardian the need to see the primary care provider for further evaluation of the symptoms. 11/11 13:02 Order name: CBC with Diff; Complete Time: 14:17 snw 11/11 13:02 Order name: CMP; Complete Time: 14:19 snw 11/11 13:02 Order name: Lipase; Complete Time: 14:19 snw 11/11 13:02 Order name: Urine Microscopic Only; Complete Time: 14:12 snw 11/11 13:12 Order name: Urine Dipstick-Ancillary; Complete Time: 13:18 EDMS 11/11 13:17 Order name: Urine --Ancillary (enter results); Complete Time: 13:51 em1 11/11 13:02 Order name: IV Saline Lock; Complete Time: 13:53 snw 11/11 13:02 Order name: Labs collected and sent; Complete Time: 13:53 snw 11/11 13:02 Order name: Urine Dipstick-Ancillary (obtain specimen); Complete Time: 13:12 snw Administered Medications: 14:00 Drug: NS 0.9% 1000 ml Route: IV; Rate: 1 bolus; Site: left forearm; hb 15:20 Follow up: Response: No adverse reaction; IV Status: Completed infusion; IV Intake: hb 1000ml 14:00 Drug: Pepcid (famotidine) 20 mg Route: IVP; Site: left forearm; hb 14:30 Follow up: Response: No adverse reaction hb 14:00 Drug: fentaNYL (PF) 25 mcg Route: IVP; Site: left forearm; hb 14:55 Follow up: Response: No adverse reaction hb 14:49 Drug: Phenergan (promethazine) 25 mg Route: IM; Site: left deltoid; hb 15:40 Follow up: Response: No adverse reaction hb Disposition: 22:01 Co-signature as Attending Physician, Mahamed PRAKASH was immediately available on-site ms3 in the Emergency Department for consultation in the care of the patient. . Disposition Summary: 11/11/22 15:42 Discharge Ordered Location: Home snw Condition: Stable snw Diagnosis - Abdominal pain, Generalized snw - Vomiting snw Followup: snw - With: Emergency Department - When: As needed - Reason: Worsening of condition Followup: snw - With: Private Physician - When: 1 week - Reason: Recheck today's complaints, Continuance of care, Re-evaluation by your physician Followup: snw - With: Watson Oliver MD - When: 1 week - Reason: Recheck today's complaints, Continuance of care Discharge Instructions: - Discharge Summary Sheet snw - Abdominal Pain, Adult snw - Colic snw - Gas and Gas Pains, Pediatric snw - [place] Diet snw Forms: - Medication Reconciliation Form snw - Thank You Letter snw - Antibiotic Education snw - Prescription Opioid Use snw Prescriptions: - promethazine 25 mg Oral Tablet - take 1 tablet by ORAL route every 6 hours As needed; 20 tablet; Refills: 0, snw Product Selection Permitted - dicyclomine 20 mg Oral Tablet - take 1 tablet by ORAL route 3 times per day; 30 tablet; Refills: 0, Product snw Selection Permitted Signatures: Dispatcher [employer] EDMS Itzel Sanches, VACCINATOR-C VACCINATOR-Csnw Idalmis Cotton, RN RN Mahamed Mcclellan, DO WINN ms3 Shasha Castillo RN RN jh5 Corrections: (The following items were deleted from the chart) 14:34 14:18 Abdomen Pelvis W Con+CT.RAD.BRZ ordered. EDMS EDMS
--- NOTE | 2022-11-11 15:42 | ER ---
Nurse's Notes [facility] Name: Ara Mercado Age: 37 yrs Sex: Female : 1985 Arrival Date: 11/11/2022 Time: 12:33 Bed 17 Private MD: Diagnosis: Abdominal pain, Generalized;Vomiting Presentation: 11/11 12:41 Chief complaint: Patient states: I dont feel good, it's been going on for 3 weeks but jh5 it's gotten bad the last couple days. I have been vomiting, diarrhea, stomach hurting. Coronavirus screen: Vaccine status: Patient reports receiving the 2nd dose of the covid vaccine. Client denies travel out of the [place] in the last 14 days. Ebola Screen: Patient negative for fever greater than or equal to 101.5 degrees Fahrenheit, and additional compatible Ebola Virus Disease symptoms Patient denies exposure to infectious person. Patient denies travel to an Ebola-affected area in the 21 days before illness onset. Initial Sepsis Screen: Does the patient meet any 2 criteria? HR > 90 bpm. Does the patient have a suspected source of infection? No. Patient's initial sepsis screen is negative. Risk Assessment: Do you want to hurt yourself or someone else? Patient reports no desire to harm self or others. Onset of symptoms was October 21, 2022. 12:41 Method Of Arrival: Ambulatory [facility] 12:41 Acuity: CHARISSA 3 jh5 Triage Assessment: 12:44 General: Appears in no apparent distress. uncomfortable, slender, well groomed, well jh5 developed, Behavior is calm, cooperative, appropriate for age. Pain: Complains of pain in abdomen. GI: Reports diarrhea, nausea, vomiting. 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 - Social history:: Smoking status: Patient reports the use of cigarette tobacco products, smokes one-half pack cigarettes per day. Screenin:45 [facility] ED Fall Risk Assessment (Adult) Score/Fall Risk Level 0 - 2 = Low Risk hb Oriented to surroundings, Maintained a safe environment. Abuse screen: Denies threats or abuse. Denies injuries from another. Nutritional screening: No deficits noted. Tuberculosis screening: No symptoms or risk factors identified. Fall Risk Total Hannah Fall Scale indicates No Risk (0-24 pts). Assessment: 12:46 General: Appears in no apparent distress. Behavior is calm, cooperative. Pain: Pain hb currently is 6 out of 10 on a pain scale. Neuro: Level of Consciousness is awake, alert, obeys commands, Oriented to person, place, time, situation, Reports dizziness, headache. Cardiovascular: Patient's skin is warm and dry. Respiratory: Respiratory effort is even, unlabored, Respiratory pattern is regular, symmetrical. GI: Reports cramping, diarrhea, nausea, vomiting. : No signs and/or symptoms were reported regarding the genitourinary system. EENT: No signs and/or symptoms were reported regarding the EENT system. Derm: Skin is pink, warm \T\ dry. Musculoskeletal: No signs and/or symptoms reported regarding the musculoskeletal system. 13:37 Reassessment: Patient appears in no apparent distress at this time. Patient and/or hb family updated on plan of care and expected duration. Pain level reassessed. Patient is alert, oriented x 3, equal unlabored respirations, skin warm/dry/pink. 14:55 Reassessment: Patient appears in no apparent distress at this time. Patient and/or hb family updated on plan of care and expected duration. Pain level reassessed. Patient is alert, oriented x 3, equal unlabored respirations, skin warm/dry/pink. 15:45 Reassessment: Patient appears in no apparent distress at this time. Patient and/or hb family updated on plan of care and expected duration. Pain level reassessed. Patient is alert, oriented x 3, equal unlabored respirations, skin warm/dry/pink. Vital Signs: 12:41 BP 110 / 78; Pulse 100; Resp 16; Temp 98.2; Pulse Ox 99% ; Weight 80.29 kg; Height 5 jh5 ft. 2 in. (157.48 cm); Pain 6/10; 14:00 BP 124 / 78; Pulse 94; Resp 15; Pulse Ox 98% on R/A; Pain 9/10; hb 14:55 BP 127 / 85; Pulse 94; Resp 17; Pulse Ox 100% on R/A; hb 15:45 BP 124 / 80; Pulse 88; Resp 16; Pulse Ox 99% on R/A; hb 12:41 Body Mass Index 32.37 (80.29 kg, 157.48 cm) 5 ED Course: 12:33 Patient arrived in ED. as 12:38 Itzel Sanches FNP-C is PHCP. snw 12:38 Mahamed Mcclellan DO is Attending Physician. snw 12:44 Triage completed. jh5 12:44 Arm band placed on right wrist. 5 12:45 Idalmis Cotton, RN is Primary Nurse. hb 12:45 Patient has correct armband on for positive identification. hb 13:15 Urine Microscopic Only Sent. em6 13:20 Missed attempt(s): 24 gauge in left forearm. Bleeding controlled, band aid applied, hb catheter tip intact. 13:24 Missed attempt(s): 24 gauge in left forearm. Bleeding controlled, band aid applied, hb catheter tip intact. 13:32 Missed attempt(s): 24 gauge in right forearm. Bleeding controlled, band aid applied, hb catheter tip intact. 13:45 Missed attempt(s): 22 gauge in left wrist. jl7 13:53 Initial lab(s) drawn, by me, sent to lab. Inserted saline lock: 22 gauge in left jl7 forearm, using aseptic technique. Blood collected. 15:41 Watson Oliver MD is Referral Physician. snw 15:58 No provider procedures requiring assistance completed. IV discontinued, intact, hb bleeding controlled, No redness/swelling at site. Administered Medications: 14:00 Drug: NS 0.9% 1000 ml Route: IV; Rate: 1 bolus; Site: left forearm; hb 15:20 Follow up: Response: No adverse reaction; IV Status: Completed infusion; IV Intake: hb 1000ml 14:00 Drug: Pepcid (famotidine) 20 mg Route: IVP; Site: left forearm; hb 14:30 Follow up: Response: No adverse reaction hb 14:00 Drug: fentaNYL (PF) 25 mcg Route: IVP; Site: left forearm; hb 14:55 Follow up: Response: No adverse reaction hb 14:49 Drug: Phenergan (promethazine) 25 mg Route: IM; Site: left deltoid; hb 15:40 Follow up: Response: No adverse reaction hb Medication: 12:45 VIS not applicable for this client. hb Intake: 15:20 IV: 1000ml; Total: 1000ml. hb Outcome: 15:42 Discharge ordered by MD. fletcher 15:58 Discharged to home ambulatory. hb 15:58 Condition: stable 15:58 Discharge instructions given to patient, Instructed on discharge instructions, follow up and referral plans. medication usage, Demonstrated understanding of instructions, follow-up care, medications, Prescriptions given X 2. 15:58 Patient left the ED. hb Signatures: Itzel Sanches, ETHNOGRAPHER-C ETHNOGRAPHER-CsnMary Lozano Heather, RN RN hb Yumiko Richardson, RN RN jl7 Shasha Castillo, RN RN jh5 June Land, RN RN em6 Corrections: (The following items were deleted from the chart) 13:37 13:24 Missed attempt(s): 24 gauge in right forearm. Bleeding controlled, band aid hb applied, catheter tip intact. hb 13:37 13:32 Missed attempt(s): 24 gauge in left wrist. Bleeding controlled, band aid applied, hb catheter tip intact. hb
[2022-11-11 16:16] VITALS: TEMP 98.2
[2022-11-11 16:24] VITALS: BP 124/80; O2SAT 99
== END 2022-11-11 15:58 | disposition home or self-care (01) ==
LOC: ER 12:30
DX: R11.10 Vomiting, unspecified (principal); R10.84 Generalized abdominal pain
CPT/HCPCS: 36415; 80053; 81003; 81015; 81025; 83690; 85025; 96361; 96372; 96374; 96375; 99284; J2550; J3010; J7030

== ENCOUNTER 2022-11-29 00:44 | Emergency (ER) | payer SELFPAY ==
--- NOTE | 2022-11-29 01:19 | ER ---
Nurse's Notes [facility] Name: Ara Mercado Age: 37 yrs Sex: Female : 1985 Arrival Date: 11/29/2022 Time: 00:47 Bed 12 Private MD: Diagnosis: Disorder of teeth and supporting structures, unspecified Presentation: 11/29 00:50 Chief complaint: Patient states: "I think something going on in my mouth, it starts in tw5 the front and goes all the way back on the right side.". Coronavirus screen: Vaccine status: Patient reports receiving the 2nd dose of the covid vaccine. [employer]. Ebola Screen: Patient negative for fever greater than or equal to 101.5 degrees Fahrenheit, and additional compatible Ebola Virus Disease symptoms Patient denies exposure to infectious person. Patient denies travel to an Ebola-affected area in the 21 days before illness onset. Initial Sepsis Screen: Does the patient meet any 2 criteria? HR > 90 bpm. Does the patient have a suspected source of infection? No. Patient's initial sepsis screen is negative. Risk Assessment: Do you want to hurt yourself or someone else? Patient reports no desire to harm self or others. Onset of symptoms was November 28, 2022 at 10:00. 00:50 Acuity: CHARISSA 4 tw5 00:50 Method Of Arrival: Ambulatory tw5 Triage Assessment: 00:51 General: Appears uncomfortable, Behavior is calm, cooperative, appropriate for age. tw5 Pain: Pain currently is 10 out of 10 on a pain scale. EENT: Reports pain. 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 - Social history:: Smoking status: Patient reports the use of cigarette tobacco products, smokes one-half pack cigarettes per day. Screenin:[address] [facility] ED Fall Risk Assessment (Adult) History of falling in the last 3 months, tw5 including since admission. Abuse screen: Denies threats or abuse. Denies injuries from another. Nutritional screening: No deficits noted. Tuberculosis screening: No symptoms or risk factors identified. Assessment: 01:03 Reassessment: Patient appears in no apparent distress at this time. General: Appears tw5 uncomfortable, Behavior is calm, cooperative, appropriate for age. Neuro: No deficits noted. Cardiovascular: No deficits noted. Respiratory: No deficits noted. EENT: Poor dentition noted. 01:35 Reassessment: Patient denies pain at this time. Patient states feeling better. General: tw5 "My is taking me home.". Vital Signs: 00:50 Pulse 102; Resp 18; Temp 97.9; Pulse Ox 100% on R/A; Weight 79.83 kg; Height 5 ft. 2 tw5 in. (157.48 cm); Pain 10/10; 01:20 BP 153 / 76; tw5 00:50 Body Mass Index 32.19 (79.83 kg, 157.48 cm) tw5 ED Course: 00:47 Patient arrived in ED. ja2 00:49 Rashad Sandoval PA is PHCP. cp 00:49 Marina Mei MD is Attending Physician. cp 00:51 Triage completed. tw5 00:51 Arm band placed on. tw5 01:03 Marissa Wilkins is Primary Nurse. tw5 01:03 Patient has correct armband on for positive identification. Bed in low position. Call tw5 light in reach. Side rails up X 1. 01:03 No provider procedures requiring assistance completed. Patient did not have IV access tw5 during this emergency room visit. Administered Medications: 01:20 Drug: Dilaudid (HYDROmorphone) 1 mg Route: IM; Site: left deltoid; tw5 01:34 Follow up: Response: No adverse reaction; Pain is decreased; RASS: Alert and Calm (0) tw5 01:20 Drug: Clindamycin 300 mg Route: PO; tw5 01:35 Follow up: Response: No adverse reaction tw5 Medication: 01:03 VIS not applicable for this client. tw5 Outcome: 01:19 Discharge ordered by . cp 01:35 Discharged to home ambulatory. tw5 01:35 Condition: good 01:35 Discharge instructions given to patient, Instructed on discharge instructions, follow up and referral plans. medication usage, Demonstrated understanding of instructions, follow-up care, medications, Prescriptions given X 1. 01:35 Patient left the ED. tw5 Signatures: Rashad Sandoval PA PA cp Alexander, Jessica ja2 Wood, Tiffany tw5
--- NOTE | 2022-11-29 01:19 | EDPHYS ---
Physician Documentation [facility] Name: Ara Mercado Age: 37 yrs Sex: Female : 1985 Arrival Date: 11/29/2022 Time: 00:47 Bed 12 Private MD: ED Physician Marina Mei HPI: 11/29 01:15 This 37 yrs old Female presents to ER via Ambulatory with complaints of Toothache. cp 01:15 The patient presents with pain. The problem is located in the lower jaw. cp 01:15 Onset: The symptoms/episode began/occurred today. Duration: The symptoms are cp continuous, and are steadily getting worse. Associated signs and symptoms: Pertinent negatives: dysphagia, fever, vomiting. Severity of symptoms: in the emergency department the symptoms are unchanged, despite home interventions. 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 - Social history:: Smoking status: Patient reports the use of cigarette tobacco products, smokes one-half pack cigarettes per day. ROS: 01:15 Constitutional: Negative for body aches, chills, fever, poor PO intake. cp 01:15 ENT: Positive for dental pain, Negative for drainage from ear(s), ear pain, sore cp throat, difficulty swallowing, difficulty handling secretions. 01:15 Respiratory: Negative for cough, shortness of breath, wheezing. 01:15 Abdomen/GI: Negative for abdominal pain, nausea, vomiting, and diarrhea. 01:15 Eyes: Negative for injury, pain, redness, and discharge. cp 01:15 All other systems are negative. Exam: 01:17 Constitutional: The patient appears in no acute distress, alert, awake, non-toxic, well cp developed, well nourished, in obvious pain. 01:17 Head/face: Noted is swelling, that is mild, of the right lower jaw. cp 01:17 Eyes: Periorbital structures: appear normal, Conjunctiva: normal, no exudate, no injection, Sclera: no appreciated abnormality, Lids and lashes: appear normal, bilaterally. 01:17 ENT: External ear(s): are unremarkable, Nose: is normal, Mouth: Lips: moist, Oral mucosa: moist, Gums: on the right lower jaw gumline, mild swelling, Tongue: is normal, abscess, is not appreciated, Posterior pharynx: Airway: no evidence of obstruction, patent, Tonsils: are normal in appearance, swelling, is not appreciated, erythema, is not appreciated, exudate, is not appreciated, Dental exam: abscess, is not appreciated, dental caries, that is severe, diffusely, pain, that is severe, multiple teeth right lower jaw. 01:17 Neck: ROM/movement: is normal, is supple, without pain, no range of motions limitations, no meningismus. 01:17 Chest/axilla: Inspection: normal. 01:17 Cardiovascular: Rate: tachycardic, Rhythm: regular. 01:17 Respiratory: the patient does not display signs of respiratory distress, Respirations: normal, no use of accessory muscles, no retractions, labored breathing, is not present, Breath sounds: are clear throughout, no decreased breath sounds, no stridor, no wheezing. 01:17 Abdomen/GI: Exam negative for discomfort, distension, guarding, Inspection: abdomen appears normal. 01:17 Neuro: Orientation: to person, place \T\ time. Mentation: is normal. Vital Signs: 00:50 Pulse 102; Resp 18; Temp 97.9; Pulse Ox 100% on R/A; Weight 79.83 kg; Height 5 ft. 2 tw5 in. (157.48 cm); Pain 10/10; 01:20 BP 153 / 76; tw5 00:50 Body Mass Index 32.19 (79.83 kg, 157.48 cm) tw5 MDM: 00:55 Patient medically screened. cp 01:19 Data reviewed: vital signs, nurses notes. cp 01:19 Differential diagnosis: dental caries, dental abscess, sepsis. Counseling: I had a cp detailed discussion with the patient and/or guardian regarding: the historical points, exam findings, and any diagnostic results supporting the discharge/admit diagnosis, the need for outpatient follow up, for definitive care, a dentist, to return to the emergency department if symptoms worsen or persist or if there are any questions or concerns that arise at home. Administered Medications: 01:20 Drug: Dilaudid (HYDROmorphone) 1 mg Route: IM; Site: left deltoid; 01:34 Follow up: Response: No adverse reaction; Pain is decreased; RASS: Alert and Calm (0) 01:20 Drug: Clindamycin 300 mg Route: PO; 01:35 Follow up: Response: No adverse reaction Disposition: 02:22 STAFF ATTESTATION STATEMENT: I was immediately available onsite in the emergency sd2 department for consultation in the care of this patient. I did not see or examine this patient. Marina Mei MD. Disposition Summary: 11/29/22 01:19 Discharge Ordered Location: Home cp Problem: new cp Symptoms: have improved cp Condition: Stable cp Diagnosis - Disorder of teeth and supporting structures, unspecified cp Followup: cp - With: Private Physician - When: 1 - 2 days - Reason: Recheck today's complaints Discharge Instructions: - Discharge Summary Sheet cp - Dental Pain cp Forms: - Medication Reconciliation Form cp - Thank You Letter cp - Antibiotic Education cp - Prescription Opioid Use cp Prescriptions: - Clindamycin HCl 300 mg Oral Capsule - take 1 capsule by ORAL route every 6 hours for 10 days; 40 capsule; Refills: 0, cp Product Selection Permitted Signatures: Rashad Sandoval PA PA cp Wood, Tiffany Marina Mei MD MD sd2
[2022-11-29] MEDS ORDERED: HYDROMORPHONE HCL 0.5 MG/0.5 ML INJ ONE (01:24)
[2022-11-29 01:49] VITALS: TEMP 97.9; O2SAT 100
[2022-11-29 01:50] VITALS: BP 153/76
== END 2022-11-29 01:35 | disposition home or self-care (01) ==
LOC: ER 00:44
DX: K08.89 Other specified disorders of teeth and supporting structures (principal); Z72.0 Tobacco use; Z88.1 Allergy status to other antibiotic agents; Z88.5 Allergy status to narcotic agent
CPT/HCPCS: 96372; 99283; J1170

== ENCOUNTER 2022-12-03 21:44 | Emergency (ER) | payer SELFPAY ==
[2022-12-03] MEDS ORDERED: ONDANSETRON 4 MG/2 ML VIAL ONE (22:56)
[2022-12-03] MEDS ORDERED: NA CHLORIDE 0.9% 1,000 ML ONE (22:56)
[2022-12-03] MEDS ORDERED: DICYCLOMINE HCL 20 MG/2 ML AMP IM ONE (22:56)
[2022-12-03 23:57] LABS: Absolute Lymphocytes (CBC) 2.8 K/uL (0.7-4.9); Hematocrit 35.6 % (36.0-45.0); Lymphocytes % 21.4 % (15.3-44.8); MCV 90.9 fL (80-100); MPV 7.2 fL (7.6-11.3); RBC Red Blood Cell Count 3.92 M/uL (3.86-4.86)
[2022-12-04 00:14] LABS: Albumin 3.4 g/dL (3.4-5.0); Bilirubin Total 0.2 mg/dL (0.2-1.0); Protein, Total 8.5 g/dL (6.4-8.2); Troponin High Sensitivity 4.9 pg/mL (<58.9)
[2022-12-04 00:17] LABS: Magnesium 2.2 mg/dL (1.6-2.4); Potassium 3.2 mmol/L (3.5-5.1)
[2022-12-04] MEDS ORDERED: PROMETHAZINE INJ 25 MG/ML AMP ONE ×2 (00:55→01:08)
[2022-12-04] MEDS ORDERED: FENTANYL CITR 100 MCG/2 ML ONE (01:49)
--- NOTE | 2022-12-04 02:16 | ER ---
Nurse's Notes [facility] Name: Ara Mercado Age: 37 yrs Sex: Female : 1985 Arrival Date: 12/03/2022 Time: 21:46 Bed 4 Private MD: Diagnosis: Nausea with vomiting, unspecified;Dizziness Presentation: 12/03 22:01 Chief complaint: EMS states: "She was treated for a tooth abscess and has been on abx vc1 for four days. Her called saying she was weak and dizzy.". Coronavirus screen: Vaccine status: Patient reports receiving the 2nd dose of the covid vaccine. Pfizer muscle pain, Client presents with at least one sign or symptom that may indicate coronavirus-19. Standard/surgical mask placed on the client. Provider contacted for isolation considerations. Ebola Screen: No symptoms or risks identified at this time. 22:01 Method Of Arrival: EMS: [facility] vc1 22:04 Chief complaint: Spouse and/or significant other states: "She couldn't get out of bed vc1 she's been really weak and dizzy.". Risk Assessment: Do you want to hurt yourself or someone else? Patient reports no desire to harm self or others. Onset of symptoms was November 30, 2022. 22:04 Acuity: CHARISSA 3 vc1 22:08 Initial Sepsis Screen: Does the patient meet any 2 criteria? HR > 90 bpm. No. Patient's vc1 initial sepsis screen is negative. Does the patient have a suspected source of infection? Yes: Acute abdominal pain. Triage Assessment: 22:06 General: Appears uncomfortable, ill, Behavior is calm, cooperative, appropriate for vc1 age. Pain: Complains of pain in abdomen Pain currently is 10 out of 10 on a pain scale. Aggravated by eating, drinking, Noted to be grimacing. EENT: No deficits noted. No signs and/or symptoms were reported regarding the EENT system. Neuro: Level of Consciousness is awake, lethargic, Oriented to person, place, time, situation, Appropriate for age. Neuro: Reports dizziness, weakness. Cardiovascular: No deficits noted. Respiratory: Airway is patent Respiratory effort is even, unlabored, Respiratory pattern is regular, symmetrical. GI: Reports lower abdominal pain, upper abdominal pain, intolerance of fluids, intolerance of food, nausea. : No deficits noted. No signs and/or symptoms were reported regarding the genitourinary system. Derm: No deficits noted. No signs and/or symptoms reported regarding the dermatologic system. Musculoskeletal: No deficits noted. No signs and/or symptoms reported regarding the musculoskeletal system. 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 - Social history:: Smoking status: Patient reports the use of cigarette tobacco products, smokes one-half pack cigarettes per day. - Family history:: not pertinent. Screenin/11 01:37 [facility] ED Fall Risk Assessment (Adult) Score/Fall Risk Level 0 - 2 = Low Risk. Abuse as6 screen: Denies threats or abuse. Denies injuries from another. Nutritional screening: No deficits noted. Tuberculosis screening: No symptoms or risk factors identified. Assessment: 12/03 22:40 General: Appears uncomfortable, Behavior is calm, cooperative. Pain: Complains of pain as6 in abdomen. Neuro: Level of Consciousness is awake, alert, obeys commands, Oriented to person, place, time, situation. Cardiovascular: Capillary refill < 3 seconds Patient's skin is warm and dry. Respiratory: Respiratory effort is even, unlabored, Respiratory pattern is regular, symmetrical. GI: Reports lower abdominal pain, upper abdominal pain, nausea, vomiting. 23:00 General: several unsuccessful IV attempts. provider notified . as6 12/04 01:42 General: ""The medicine y'all have been giving me hasn't been working". as6 Vital Signs: 12/03 22:01 Weight 79.83 kg; Height 5 ft. 2 in. (157.48 cm); Pain 9/10; vc1 22:08 BP 97 / 78; Pulse 97; Resp 17; Temp 97.6(O); Pulse Ox 100% ; vc1 23:00 BP 111 / 79; Pulse 82; Resp 11 S; Pulse Ox 97% on R/A; as6 12/04 00:00 BP 102 / 67; Pulse 82; Resp 16 S; Pulse Ox 98% on R/A; as6 01:00 BP 106 / 84; Pulse 93; Resp 18 S; Pulse Ox 100% on R/A; as6 01:42 BP 109 / 83; Pulse 90; Resp 20 S; Pulse Ox 99% on R/A; as6 12/03 22:01 Body Mass Index 32.19 (79.83 kg, 157.48 cm) vc1 ED Course: 12/03 21:46 Patient arrived in ED. ja2 22:05 Triage completed. vc1 22:07 Arm band placed on left wrist. vc1 22:27 Elver Ceja, RN is Primary Nurse. as6 22:35 Pee Barraza MD is Attending Physician. rt 23:39 Chest Single View XRAY In Process Unspecified. EDMS 23:40 Initial lab(s) drawn, by me, sent to lab. wm 12/04 00:06 Call light in reach. Side rails up X 1. Adult w/ patient. Warm blanket given. Client wm placed on continuous cardiac and pulse oximetry monitoring. NIBP monitoring applied. bus monitor on. 00:07 EKG done, by ED staff, reviewed by Pee Barraza MD. wm 00:07 CMP Sent. wm 00:07 Magnesium Sent. wm 00:07 Troponin High Sensitivity Sent. wm 02:24 No provider procedures requiring assistance completed. Patient did not have IV access as6 during this emergency room visit. Administered Medications: 00:13 Drug: Bentyl (dicyclomine) 20 mg Route: IM; Site: right ventrogluteal; as6 02:24 Follow up: Response: No adverse reaction as6 01:20 Drug: Phenergan (promethazine) 12.5 mg Route: IM; Site: left deltoid; as6 02:24 Follow up: Response: No adverse reaction as6 01:53 Drug: fentaNYL (PF) 50 mcg Route: IM; Site: left deltoid; as6 02:24 Follow up: Response: No adverse reaction as6 02:24 Not Given (no IV ): NS 0.9% 1000 ml IV at 1 bolus Per protocol; 1000 mL bolus as6 02:24 Not Given (): Zofran (Ondansetron) 4 mg IVP once; over 2 minutes as6 Medication: 01:38 VIS not applicable for this client. as6 Outcome: 02:15 Discharge ordered by . rt 02:25 Discharged to home via wheelchair, with significant other. as6 02:25 Condition: stable 02:25 Discharge instructions given to patient, Instructed on discharge instructions, follow up and referral plans. medication usage, Demonstrated understanding of instructions, follow-up care, medications, Prescriptions given X 1. 02:26 Patient left the ED. as6 Signatures: Dispatcher [employer] EDMS Analia Kaminski Jessica ja2 Elver Ceja RN RN as6 Lora Victor RN RN vc1 Pee Barraza MD MD rt
--- NOTE | 2022-12-04 02:16 | EDPHYS ---
Physician Documentation [facility] Name: Ara Mercado Age: 37 yrs Sex: Female : 1985 Arrival Date: 12/03/2022 Time: 21:46 Bed 4 Private MD: ED Physician Pee Barraza HPI: 12/04 03:09 This 37 yrs old Female presents to ER via EMS with complaints of Weakness, Dizziness, rt Abdominal Pain. 03:09 Was recently diagnosed with an abscessed tooth, prescribed clindamycin. She has been rt taking that medicine. She subsequently developed a nausea and vomiting, later with abdominal pain. Patient states that she feels dizzy when she sits up, described as a lightheadedness. Patient states that she is unable to tolerate p.o. The patient states that she vomits when she takes Zofran. The patient denies other acute complaints at this time. Symptoms are moderate severity, no other aggravating or alleviating factors.. 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 - Social history:: Smoking status: Patient reports the use of cigarette tobacco products, smokes one-half pack cigarettes per day. - Family history:: not pertinent. ROS: 12/04 03:09 Constitutional: Negative for fever, chills, and weight loss, Eyes: Negative for injury, rt pain, redness, and discharge, Neck: Negative for injury, pain, and swelling, Cardiovascular: Negative for chest pain, palpitations, and edema, Respiratory: Negative for shortness of breath, cough, wheezing, and pleuritic chest pain, MS/Extremity: Negative for injury and deformity, Skin: Negative for injury, rash, and discoloration, Psych: Negative for depression, anxiety, suicide ideation, homicidal ideation, and hallucinations. ENT: Positive for dental pain, Negative for sore throat. Abdomen/GI: Positive for abdominal pain, nausea and vomiting. Neuro: Positive for near syncope, Negative for altered mental status. Exam: 03:09 Constitutional: This is a well developed, well nourished patient who is awake, alert, rt and in no acute distress. Head/Face: Normocephalic, atraumatic. Eyes: Pupils equal round and reactive to light, extra-ocular motions intact. Lids and lashes normal. Conjunctiva and sclera are non-icteric and not injected. Cornea within normal limits. Periorbital areas with no swelling, redness, or edema. ENT: Nares patent. No nasal discharge, no septal abnormalities noted. Tympanic membranes are normal and external auditory canals are clear. Oropharynx with no redness, swelling, or masses, exudates, or evidence of obstruction, uvula midline. Mucous membranes moist. Chest/axilla: Normal chest wall appearance and motion. Nontender with no deformity. No lesions are appreciated. Cardiovascular: Regular rate and rhythm with a normal S1 and S2. No gallops, murmurs, or rubs. Normal PMI, no JVD. No pulse deficits. Respiratory: Lungs have equal breath sounds bilaterally, clear to auscultation and percussion. No rales, rhonchi or wheezes noted. No increased work of breathing, no retractions or nasal flaring. Abdomen/GI: Soft, non-tender, with normal bowel sounds. No distension or tympany. No guarding or rebound. No evidence of tenderness throughout. Skin: Warm, dry with normal turgor. Normal color with no rashes, no lesions, and no evidence of cellulitis. MS/ Extremity: Pulses equal, no cyanosis. Neurovascular intact. Full, normal range of motion. Neuro: Awake and alert, GCS 15, oriented to person, place, time, and situation. Cranial nerves II-XII grossly intact. Motor strength 5/5 in all extremities. Sensory grossly intact. Cerebellar exam normal. Normal gait. Psych: Awake, alert, with orientation to person, place and time. Behavior, mood, and affect are within normal limits. 03:09 ECG was reviewed by the Attending Physician. Vital Signs: 12/03 22:01 Weight 79.83 kg; Height 5 ft. 2 in. (157.48 cm); Pain 9/10; vc1 22:08 BP 97 / 78; Pulse 97; Resp 17; Temp 97.6(O); Pulse Ox 100% ; vc1 23:00 BP 111 / 79; Pulse 82; Resp 11 S; Pulse Ox 97% on R/A; as6 12/04 00:00 BP 102 / 67; Pulse 82; Resp 16 S; Pulse Ox 98% on R/A; as6 01:00 BP 106 / 84; Pulse 93; Resp 18 S; Pulse Ox 100% on R/A; as6 01:42 BP 109 / 83; Pulse 90; Resp 20 S; Pulse Ox 99% on R/A; as6 12/03 22:01 Body Mass Index 32.19 (79.83 kg, 157.48 cm) vc1 MDM: 12/03 22:36 Patient medically screened. rt 12/04 03:09 Data reviewed: vital signs, nurses notes, old medical records, lab test result(s), EKG, rt radiologic studies. I considered the following discharge prescriptions or medication management in the emergency department Medications were administered in the Emergency Department. See MAR. Test considered but Not performed: Other Details Abdominal exam is benign, CT scan not indicated.. Counseling: I had a detailed discussion with the patient and/or guardian regarding: the need for outpatient follow up. Response to treatment: the patient's symptoms have mildly improved after treatment. ED course: Presents to the ED with nausea, vomiting after taking t clindamycin. The patient has a benign abdominal examination, CT scans not indicated rule out acute surgical pathology. I believe that her dizziness is due to a dehydration. Nausea is improving with treatment in the ED, believe that she is appropriate for oral repletion. Patient was a difficult IV stick, unable to give IV fluids. There are no medications for admission to the hospital. Patient was instructed to rehydrate orally. Labs are benign save for mildly elevated creatinine not meeting criteria for ELAINE. Potassium is mildly low, not requiring treatment in the ED. Her EKG is benign.. 12/03 22:47 Order name: CBC with Diff; Complete Time: 00:29 rt 12/03 22:47 Order name: CMP; Complete Time: 00:29 rt 12/03 22:47 Order name: Magnesium; Complete Time: 00:29 rt 12/03 22:47 Order name: Troponin High Sensitivity; Complete Time: 00:29 rt 12/03 22:47 Order name: Chest Single View XRAY rt 12/03 22:47 Order name: EKG; Complete Time: rt 12/03 22:47 Order name: EKG - Nurse/Tech; Complete Time: 00:07 rt EC:09 Rate is 80 beats/min. Rhythm is regular, Normal Sinus Rhythm with No ectopy. QRS [place] rt is Normal. [place] interval is normal. QRS interval is normal. QT interval is normal. No Q waves. T waves are Normal. No ST changes noted. Clinical impression: Normal ECG. Interpreted by me. Administered Medications: 00:13 Drug: Bentyl (dicyclomine) 20 mg Route: IM; Site: right ventrogluteal; as6 02:24 Follow up: Response: No adverse reaction as6 01:20 Drug: Phenergan (promethazine) 12.5 mg Route: IM; Site: left deltoid; as6 02:24 Follow up: Response: No adverse reaction as6 01:53 Drug: fentaNYL (PF) 50 mcg Route: IM; Site: left deltoid; as6 02:24 Follow up: Response: No adverse reaction as6 02:24 Not Given (no IV ): NS 0.9% 1000 ml IV at 1 bolus Per protocol; 1000 mL bolus as6 02:24 Not Given (): Zofran (Ondansetron) 4 mg IVP once; over 2 minutes as6 Disposition Summary: 12/04/22 02:15 Discharge Ordered Location: Home rt Problem: an ongoing problem rt Symptoms: have improved rt Condition: Stable rt Diagnosis - Nausea with vomiting, unspecified rt - Dizziness rt Followup: rt - With: Private Physician - When: 2 - 3 days - Reason: Discharge Instructions: - Discharge Summary Sheet rt - Dizziness rt - Nausea and Vomiting, Adult rt Forms: - Medication Reconciliation Form rt - Thank You Letter rt - Antibiotic Education rt - Prescription Opioid Use rt Prescriptions: - promethazine 25 mg Oral Tablet - take 1 tablet by ORAL route every 6 hours As needed; 20 tablet; Refills: 0, rt Product Selection Permitted Signatures: Dispatcher [employer] Elver Griffith RN RN as6 Lora Victor RN RN vc1 Pee Barraza MD MD rt
[2022-12-04 02:42] VITALS: TEMP 97.6
[2022-12-04 02:47] VITALS: BP 109/83; O2SAT 99
--- NOTE | 2022-12-04 14:53 | EKG ---
Test Date: 2022-12-03 Test Time: 23:58:14 Wall Man: MEASUREMENT RESULTS: Intervals: Rate: 80 AK: 158 QRSD: 90 QT: 362 QTc: 417 Korbel: P: 35 AK: 158 QRS: 44 T: 15 INTERPRETIVE STATEMENTS: Normal sinus rhythm Normal ECG Compared to ECG 09/18/2022 05:28:14 No significant changes Electronically Signed On 12-04-22 14:51:46 LINUX DEVOPS ENGINEER by Nick Franco
--- NOTE | 2022-12-04 20:35 | RAD REPORT ---
EXAM DESCRIPTION: XR Chest, 1 View CLINICAL HISTORY: The patient is 37 years old and is Female; CHEST PAIN TECHNIQUE: Frontal view of the chest. COMPARISON: No relevant prior studies available. FINDINGS: Lungs: Unremarkable. No consolidation. Pleural space: Unremarkable. No pneumothorax. Heart: Unremarkable. Mediastinum: Unremarkable. Bones/joints: Unremarkable. IMPRESSION: No acute findings in the chest. 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 The interpreting radiologist is fully responsible for the content of the report.
== END 2022-12-04 02:26 | disposition home or self-care (01) ==
LOC: ER 21:44
DX: R11.2 Nausea with vomiting, unspecified (principal); R42 Dizziness and giddiness; I10 Essential (primary) hypertension; F17.210 Nicotine dependence, cigarettes, uncomplicated
CPT/HCPCS: 36415; 71045; 80053; 83735; 84484; 85025; 93005; 96372; 99284; J0500; J2405; J2550; J3010; J7030

== ENCOUNTER 2022-12-18 13:27 | Emergency (ER) | payer SELFPAY ==
[2022-12-18 14:46] LABS: Urine Blood Negative (Negative); Urine Glucose 1+ (Negative); Urine Protein Negative (Negative); Urine Specific Gravity 1.015 (1.005-1.030)
[2022-12-18 15:08] LABS: Urine Specific Gravity/Preg 1.015 (1.005-1.030)
[2022-12-18] MEDS ORDERED: PROMETHAZINE INJ 25 MG/ML AMP ONE (15:13)
[2022-12-18] MEDS ORDERED: FENTANYL CITR 100 MCG/2 ML ONE ×2 (15:14→16:50)
[2022-12-18] MEDS ORDERED: NA CHLORIDE 0.9% 1,000 ML ONE (15:14)
[2022-12-18 15:16] LABS: Urine Bacteria None Seen /HPF (<20); Urine Mucus Slight /HPF (None Seen); Urine RBC <5 /HPF (None Seen)
[2022-12-18 15:27] LABS: Lymphocytes % 15.6 % (15.3-44.8); MCV 91.6 fL (80-100); MPV 7.7 fL (7.6-11.3)
--- NOTE | 2022-12-18 15:35 | RAD REPORT ---
EXAM DESCRIPTION: CT - Abdomen Pelvis Wo Contrast - 12/18/2022 3:19 pm CLINICAL HISTORY: Abdominal pain. flank pain COMPARISON: Abdomen Pelvis W Contrast dated 11/04/2022 TECHNIQUE: CT imaging of the abdomen and pelvis was performed without contrast. Solid organ, bowel a nd vascular assessment is limited due to lack of IV and oral contrast. All CT scans are performed using dose optimization technique as appropriate and may include automated exposure control or mA/KV adjustment according to patient size. FINDINGS: The lower lung braun are clear.Cholecystectomy clips. The liver, spleen, pancreas, adrenal glands and kidneys are within normal limits for a limited non-co ntrast examination.There is questioned very small calculus distal left ureter without hydronephrosis. No bowel obstruction, free air, free fluid or abscess. The appendix is normal. The osseous structures are within normal limits. IMPRESSION: Questionable tiny calculus (image 81/102) distal left ureter without hydronephrosis. A limited non-contrast examination was performed as detailed.
[2022-12-18 15:51] LABS: AST/SGOT 13 U/L (15-37); Albumin 3.1 g/dL (3.4-5.0); Alkaline Phosphatase 102 U/L (45-117); BUN Blood Urea Nitrogen 13 mg/dL (7-18); Bicarbonate 26 mmol/L (21-32); Bilirubin Total 0.3 mg/dL (0.2-1.0); Glomerular Filtration Rate 40 ml/min (=/>90); Lipase 174 U/L (73-393); Potassium 3.6 mmol/L (3.5-5.1); Protein, Total 7.5 g/dL (6.4-8.2); Sodium Level 135 mmol/L (136-145)
[2022-12-18 15:56] LABS: ALT/SGPT < 10 U/L (13-56)
[2022-12-18 16:07] LABS: Glucose Level 420 mg/dL (74-106)
--- NOTE | 2022-12-18 17:23 | ER ---
Nurse's Notes [facility] Name: Ara Mercado Age: 37 yrs Sex: Female : 1985 Arrival Date: 12/18/2022 Time: 13:29 Bed DIS5 Private MD: Diagnosis: Calculus of kidney with calculus of ureter;Hyperglycemia, unspecified Presentation: 12/18 14:02 Chief complaint: Patient states: I have some horrible back pain , pain radiates from iw the flank area to the back, n/v X 2 days. Coronavirus screen: At this time, the client does not indicate any symptoms associated with coronavirus-19. Ebola Screen: Patient negative for fever greater than or equal to 101.5 degrees Fahrenheit, and additional compatible Ebola Virus Disease symptoms Patient denies exposure to infectious person. Patient denies travel to an Ebola-affected area in the 21 days before illness onset. No symptoms or risks identified at this time. Initial Sepsis Screen: Does the patient meet any 2 criteria? No. Patient's initial sepsis screen is negative. Does the patient have a suspected source of infection? No. Patient's initial sepsis screen is negative. Risk Assessment: Do you want to hurt yourself or someone else? Patient reports no desire to harm self or others. Onset of symptoms was December 13, 2022. 14:02 Method Of Arrival: Ambulatory iw 14:02 Acuity: CHARISSA 3 iw Triage Assessment: 17:39 General: Appears in no apparent distress. Behavior is calm, cooperative. iw Historical: - Allergies: 14:03 Amoxicillin; iw 14:03 Bactrim; iw 14:03 Flagyl; iw 14:03 Morphine; iw 14:03 Toradol; iw 14:03 Tramadol HCl; iw - Home Meds: 14:03 Ozempic subcutaneous [Active]; Glipizide Oral [Active]; gabapentin oral [Active]; iw Lipitor Oral [Active]; losartan oral [Active]; levothyroxine oral [Active]; pantoprazole oral [Active]; - PMHx: 14:03 diabetes mellitus; DVT; Hypercholesterolemia; Hypertensive disorder; Hypothyroidism; iw NSTEMI; - PSHx: 14:03 Cholecystectomy; iw - Immunization history:: Client reports receiving the 2nd dose of the Covid vaccine. - Social history:: Smoking status: Patient reports the use of cigarette tobacco products. Screenin:39 [facility] ED Fall Risk Assessment (Adult) History of falling in the last 3 months, iw including since admission. Abuse screen: Denies threats or abuse. Denies injuries from another. Nutritional screening: No deficits noted. Tuberculosis screening: No symptoms or risk factors identified. Assessment: 17:39 Reassessment: Patient appears in no apparent distress at this time. Patient and/or iw family updated on plan of care and expected duration. Pain level reassessed. Patient is alert, oriented x 3, equal unlabored respirations, skin warm/dry/pink. Vital Signs: 14:05 BP 101 / 66; Pulse 104; Resp 16; Temp 97.9; Pulse Ox 100% on R/A; Weight 77.56 kg; iw Height 5 ft. 2 in. (157.48 cm); Pain 9/10; 17:38 BP 110 / 67; Pulse 93; Resp 16; Temp 98.4; Pulse Ox 100% on R/A; iw 14:05 Body Mass Index 31.27 (77.56 kg, 157.48 cm) iw ED Course: 13:29 Patient arrived in ED. mr 13:44 Pee Barraza MD is Attending Physician. rt 14:03 Triage completed. iw 14:05 Arm band placed on. iw 15:00 Missed attempt(s): 22 gauge in right forearm. Bleeding controlled, band aid applied, jl7 catheter tip intact. 15:10 Missed attempt(s): 22 gauge in left forearm. Bleeding controlled, band aid applied, jl7 catheter tip intact. 15:13 Missed attempt(s): 22 gauge in left antecubital area. Bleeding controlled, band aid jl7 applied, catheter tip intact. 15:17 Yumiko Richardson, VÍCTOR is Primary Nurse. jl7 15:18 Initial lab(s) drawn, by or, sent to lab. Inserted saline lock: 24 gauge in right hand, jl7 using aseptic technique. Blood collected. 15:21 CT Abd/Pelvis - Without Contrast In Process Unspecified. EDMS 17:22 Warner Bingham MD is Referral Physician. rt 17:39 No provider procedures requiring assistance completed. IV discontinued, intact, iw bleeding controlled, No redness/swelling at site. Pressure dressing applied. Administered Medications: 15:16 Drug: NS 0.9% 1000 ml Route: IV; Rate: 1 bolus; Site: left hand; ld1 15:16 Drug: Phenergan (promethazine) 12.5 mg Route: IVP; Site: left hand; ld1 15:16 Drug: fentaNYL (PF) 50 mcg Route: IVP; Site: left hand; ld1 16:28 Not Given (Duplicate Order): fentaNYL (PF) 50 mcg IVP once iw 16:49 Drug: fentaNYL (PF) 100 mcg Route: IVP; Site: left wrist; ld1 Medication: 17:39 VIS not applicable for this client. iw Outcome: 17:23 Discharge ordered by MD. rt 17:39 Discharged to home ambulatory, with family. iw 17:39 Condition: good 17:39 Discharge instructions given to patient, Instructed on discharge instructions, follow up and referral plans. medication usage, Demonstrated understanding of instructions, follow-up care, medications, Prescriptions given X 2. 17:40 Patient left the ED. iw Signatures: Dispatcher [employer] [facility] Uri Milena leahy Lyndsay Zuluaga RN RN iw Yumiko Richardson RN RN jl7 Linsey Nelson RN RN ld1 Pee Barraza MD MD rt Corrections: (The following items were deleted from the chart) 14:06 14:05 Pulse 104bpm; Resp 16bpm; Pulse Ox 100% RA; Temp 97.9F; 77.56 kg; Height 5 ft. 2 iw in.; BMI: 31.2; Pain 9/10; iw
--- NOTE | 2022-12-18 17:23 | EDPHYS ---
Physician Documentation [facility] Name: Ara Mercado Age: 37 yrs Sex: Female : 1985 Arrival Date: 12/18/2022 Time: 13:29 Bed DIS5 Private MD: ED Physician Pee Barraza HPI: 12/18 14:32 This 37 yrs old Female presents to ER via Ambulatory with complaints of Back Pain, rt Nausea. 14:32 The patient presents with pain that is acute, with no known mechanism of injury. The rt symptoms are located in the left mid back. Onset: The symptoms/episode began/occurred 4 day(s) ago. The pain radiates. Associated signs and symptoms: Pertinent positives: nausea, vomiting. Modifying factors: The patient symptoms are alleviated by OTC meds, Tylenol, the patient symptoms are aggravated by. Severity of symptoms: At their worst the symptoms were moderate. Patient presents to the ED with a left flank pain starting about 4 days ago. It was initially relieved with Tylenol. Today, she developed nausea and vomiting with worsening pains. The patient has never had a similar pain and states that is not localized to the abdomen. Symptoms are moderate in severity, no other aggravating relieving factors. Patient denies other acute complaints.. Historical: - Allergies: 14:03 Amoxicillin; iw 14:03 Bactrim; iw 14:03 Flagyl; iw 14:03 Morphine; iw 14:03 Toradol; iw 14:03 Tramadol HCl; iw - Home Meds: 14:03 Ozempic subcutaneous [Active]; Glipizide Oral [Active]; gabapentin oral [Active]; iw Lipitor Oral [Active]; losartan oral [Active]; levothyroxine oral [Active]; pantoprazole oral [Active]; - PMHx: 14:03 diabetes mellitus; DVT; Hypercholesterolemia; Hypertensive disorder; Hypothyroidism; iw NSTEMI; - PSHx: 14:03 Cholecystectomy; iw - Immunization history:: Client reports receiving the 2nd dose of the Covid vaccine. - Social history:: Smoking status: Patient reports the use of cigarette tobacco products. ROS: 14:33 Constitutional: Negative for fever, chills, and weight loss, Eyes: Negative for injury, rt pain, redness, and discharge, Cardiovascular: Negative for chest pain, palpitations, and edema, Respiratory: Negative for shortness of breath, cough, wheezing, and pleuritic chest pain, : Negative for injury, bleeding, discharge, and swelling, MS/Extremity: Negative for injury and deformity, Skin: Negative for injury, rash, and discoloration, Neuro: Negative for headache, weakness, numbness, tingling, and seizure, Psych: Negative for depression, anxiety, suicide ideation, homicidal ideation, and hallucinations. 14:33 Abdomen/GI: Positive for nausea and vomiting, Negative for abdominal pain. 14:33 Back: Positive for flank pain, Negative for injury or acute deformity. Exam: 14:33 Constitutional: This is a well developed, well nourished patient who is awake, alert, rt and in no acute distress. Head/Face: Normocephalic, atraumatic. Chest/axilla: Normal chest wall appearance and motion. Nontender with no deformity. No lesions are appreciated. Cardiovascular: Regular rate and rhythm with a normal S1 and S2. No gallops, murmurs, or rubs. Normal PMI, no JVD. No pulse deficits. Respiratory: Lungs have equal breath sounds bilaterally, clear to auscultation and percussion. No rales, rhonchi or wheezes noted. No increased work of breathing, no retractions or nasal flaring. Abdomen/GI: Soft, non-tender, with normal bowel sounds. No distension or tympany. No guarding or rebound. No evidence of tenderness throughout. Skin: Warm, dry with normal turgor. Normal color with no rashes, no lesions, and no evidence of cellulitis. MS/ Extremity: Pulses equal, no cyanosis. Neurovascular intact. Full, normal range of motion. Neuro: Awake and alert, GCS 15, oriented to person, place, time, and situation. Cranial nerves II-XII grossly intact. Motor strength 5/5 in all extremities. Sensory grossly intact. Cerebellar exam normal. Normal gait. Psych: Awake, alert, with orientation to person, place and time. Behavior, mood, and affect are within normal limits. 14:33 Back: CVA tenderness, that is moderate, is noted on the left. Vital Signs: 14:05 BP 101 / 66; Pulse 104; Resp 16; Temp 97.9; Pulse Ox 100% on R/A; Weight 77.56 kg; iw Height 5 ft. 2 in. (157.48 cm); Pain 9/10; 17:38 BP 110 / 67; Pulse 93; Resp 16; Temp 98.4; Pulse Ox 100% on R/A; iw 14:05 Body Mass Index 31.27 (77.56 kg, 157.48 cm) iw MDM: 14:09 Patient medically screened. rt 17:42 Differential diagnosis: UTI, [place], musculoskeletal pain. Data reviewed: vital signs, rt nurses notes, lab test result(s), radiologic studies. Test considered but Not performed: EKG: Symptoms not consistent with coronary disease, EKG not indicated. External Records Reviewed: Inpatient record: Reviewed prior visits. Care significantly affected by the following chronic conditions: Diabetes. Response to treatment: the patient's symptoms have markedly improved after treatment. ED course: Patient presents to the ED with a left flank pain. Patient has no evidence of infection in her urine, does have a small kidney stone in the left ureter, likely the etiology of her pain. Patient did have hyperglycemia without complication. It is significantly improving with IV fluids, she does not require admission for hyperglycemia. Pain is improving with treatment in the ED, stable for outpatient care, return precautions discussed. Creatinine mildly elevated, appears to be close to baseline.. 12/18 14:11 Order name: CBC with Diff; Complete Time: 15:37 rt 12/18 14:11 Order name: CMP; Complete Time: 16:07 rt 12/18 14:11 Order name: Test, Serum; Complete Time: 15:37 rt 12/18 14:11 Order name: UA MICROSCOPIC; Complete Time: 15:37 rt 12/18 14:11 Order name: Lactate w/ 2H reflex if indic.; Complete Time: 16:09 rt 12/18 14:11 Order name: Lipase; Complete Time: 16:07 rt 12/18 14:12 Order name: CT Abd/Pelvis - Without Contrast; Complete Time: 15:37 rt 12/18 14:46 Order name: Urine Dipstick-Ancillary; Complete Time: 15:37 EDMS 12/18 14:47 Order name: Urine --Ancillary (enter results); Complete Time: 15:37 bd 12/18 17:28 Order name: Glucose, Ancillary Testing; Complete Time: 17:37 EDMS 12/18 14:11 Order name: Urine Dipstick-Ancillary (obtain specimen); Complete Time: 15:16 rt 12/18 16:28 Order name: FSBS: after fluids complete ; Complete Time: 17:10 iw Administered Medications: 15:16 Drug: NS 0.9% 1000 ml Route: IV; Rate: 1 bolus; Site: left hand; ld1 15:16 Drug: Phenergan (promethazine) 12.5 mg Route: IVP; Site: left hand; ld1 15:16 Drug: fentaNYL (PF) 50 mcg Route: IVP; Site: left hand; ld1 16:28 Not Given (Duplicate Order): fentaNYL (PF) 50 mcg IVP once iw 16:49 Drug: fentaNYL (PF) 100 mcg Route: IVP; Site: left wrist; ld1 Disposition Summary: 12/18/22 17:23 Discharge Ordered Location: Home rt Problem: new rt Symptoms: have improved rt Condition: Stable rt Diagnosis - Calculus of kidney with calculus of ureter rt - Hyperglycemia, unspecified rt Followup: rt - With: Warner Bingham MD - When: 2 - 3 days - Reason: Discharge Instructions: - Discharge Summary Sheet rt - Hyperglycemia rt - Renal Colic rt Forms: - Medication Reconciliation Form rt - Thank You Letter rt - Antibiotic Education rt - Prescription Opioid Use rt Prescriptions: - Tylenol-Codeine #3 300 mg-30 mg Oral - take 1 tablet by ORAL route every 6 hours; 18 tablet; Refills: 0, Product rt Selection Permitted - ondansetron 4 mg Oral - take 4 milligrams by SUBLINGUAL route every 6 hours; 18 tablet; Refills: 0, rt Product Selection Permitted - promethazine 25 mg Oral Tablet - take 1 tablet by ORAL route every 6 hours As needed; 20 tablet; Refills: 0, rt Product Selection Permitted Signatures: Dispatcher [employer] Lyndsay Morales RN RN iw Linsey Nelson RN RN ld1 Pee Barraza MD MD rt
[2022-12-18 19:36] VITALS: BP 110/67; TEMP 98.4; O2SAT 100
== END 2022-12-18 17:40 | disposition home or self-care (01) ==
LOC: ER 13:27
DX: N20.2 Calculus of kidney with calculus of ureter (principal); E11.65 Type 2 diabetes mellitus with hyperglycemia; I10 Essential (primary) hypertension; F17.210 Nicotine dependence, cigarettes, uncomplicated
CPT/HCPCS: 36415; 74176; 80053; 81003; 81015; 81025; 82947; 83605; 83690; 84703; 85025; J2550; J3010; J7030

== ENCOUNTER 2022-12-21 18:11 | Emergency (ER) | payer SELFPAY ==
--- NOTE | 2022-12-21 18:56 | EDPHYS ---
Physician Documentation [facility] Name: Ara Mercado Age: 37 yrs Sex: Female : 1985 Arrival Date: 12/21/2022 Time: 18:12 Bed DX3 Private MD: ED Physician Brannon Cooper HPI: 12/21 19:04 This 37 yrs old Female presents to ER via Ambulatory with complaints of Abscess. kb 19:04 The patient presents with redness, swelling. The problem is located in the lower right kb central incisor. Onset: The symptoms/episode began/occurred this morning. Duration: The symptoms are continuous. Modifying factors: The symptoms are alleviated by nothing, the symptoms are aggravated by nothing. Associated signs and symptoms: Pertinent positives: pain, redness in area, swelling. Severity of symptoms: At their worst the symptoms were mild, in the emergency department the symptoms are unchanged. The patient has not experienced similar symptoms in the past. The patient has not recently seen a physician. Historical: - Allergies: 18:17 Amoxicillin; hb 18:17 Bactrim; hb 18:17 Flagyl; hb 18:17 Morphine; hb 18:17 Toradol; hb 18:17 Tramadol HCl; hb - PMHx: 18:17 diabetes mellitus; Hypercholesterolemia; Hypertensive disorder; DVT; Hypothyroidism; hb NSTEMI; - Immunization history:: Adult Immunizations up to date. - Social history:: Smoking status: Patient denies any tobacco usage or history of. ROS: 19:03 Constitutional: Negative for fever, chills, and weight loss. kb 19:03 ENT: Positive for dental pain. 19:03 All other systems are negative. Exam: 19:03 Constitutional: This is a well developed, well nourished patient who is awake, alert, kb and in no acute distress. Head/Face: Normocephalic, atraumatic. Cardiovascular: Regular rate and rhythm with a normal S1 and S2. No gallops, murmurs, or rubs. No pulse deficits. Respiratory: Respirations even and unlabored. No increased work of breathing. Talking in full sentences Abdomen/GI: Soft, non-tender. No distention Skin: Warm, dry with normal turgor. Normal color. MS/ Extremity: Pulses equal, no cyanosis. Neurovascular intact. Full, normal range of motion. Neuro: Awake and alert, GCS 15, oriented to person, place, time, and situation. Moves all extremities. Normal gait. 19:03 ENT: Mouth: Gums: reddened, swollen, on the lower right central incisor. Vital Signs: 18:16 BP 124 / 74; Pulse 102; Resp 16; Temp 98.6; Pulse Ox 100% on R/A; Weight 77.56 kg; hb Height 5 ft. 2 in. (157.48 cm); Pain 9/10; 18:16 Body Mass Index 31.28 (77.56 kg, 157.48 cm) hb MDM: 18:53 Patient medically screened. kb 19:02 Differential diagnosis: abscess, stomatitis. Data reviewed: vital signs, nurses notes. kb Counseling: I had a detailed discussion with the patient and/or guardian regarding: the historical points, exam findings, and any diagnostic results supporting the discharge/admit diagnosis, the need for outpatient follow up, a dentist, to return to the emergency department if symptoms worsen or persist or if there are any questions or concerns that arise at home. Administered Medications: 19:03 Drug: Viscous Lidocaine Liquid (4 %) 5 ml Route: Mucous Membrane; hb Disposition: 19:35 Co-signature as Attending Physician, Brannon Cooper MD I agree with the assessment and kdr plan of care. Disposition Summary: 12/21/22 18:55 Discharge Ordered Location: Home kb Condition: Stable kb Diagnosis - Dental abscess kb Followup: kb - With: Emergency Department - When: As needed - Reason: Worsening of condition Followup: kb - With: Private Physician - When: 2 - 3 days - Reason: Recheck today's complaints, Continuance of care, Re-evaluation by your physician Discharge Instructions: - Discharge Summary Sheet kb - Dental Abscess, [id number] kb Forms: - Medication Reconciliation Form kb - Thank You Letter kb - Antibiotic Education kb - Prescription Opioid Use kb Prescriptions: - Clindamycin HCl 300 mg Oral Capsule - take 1 capsule by ORAL route every 6 hours for 10 days; 40 capsule; Refills: 0, kb Product Selection Permitted Signatures: Celina Driver, CATARINOC Brannon Ashley MD MD [facility] Idalmis Cotton, RN RN
--- NOTE | 2022-12-21 18:56 | ER ---
Nurse's Notes [facility] Name: Ara Mercado Age: 37 yrs Sex: Female : 1985 Arrival Date: 12/21/2022 Time: 18:12 Bed DX3 Private MD: Diagnosis: Dental abscess Presentation: 12/21 18:16 Chief complaint: Abscess on lower gum line since this morning. Coronavirus screen: At hb this time, the client does not indicate any symptoms associated with coronavirus-19. Ebola Screen: No symptoms or risks identified at this time. Initial Sepsis Screen: Does the patient meet any 2 criteria? No. Patient's initial sepsis screen is negative. Does the patient have a suspected source of infection? No. Patient's initial sepsis screen is negative. Risk Assessment: Do you want to hurt yourself or someone else? Patient reports no desire to harm self or others. Onset of symptoms was December 21, 2022. 18:16 Method Of Arrival: Ambulatory hb 18:16 Acuity: CHARISSA 4 hb Triage Assessment: 18:17 General: Appears in no apparent distress. Behavior is calm, cooperative. Pain: Pain hb currently is 9 out of 10 on a pain scale. Neuro: Level of Consciousness is awake, alert, obeys commands, Oriented to person, place, time, situation. Cardiovascular: Patient's skin is warm and dry. Respiratory: Respiratory effort is even, unlabored, Respiratory pattern is regular, symmetrical. Historical: - Allergies: 18:17 Amoxicillin; hb 18:17 Bactrim; hb 18:17 Flagyl; hb 18:17 Morphine; hb 18:17 Toradol; hb 18:17 Tramadol HCl; hb - PMHx: 18:17 diabetes mellitus; Hypercholesterolemia; Hypertensive disorder; DVT; Hypothyroidism; hb NSTEMI; - Immunization history:: Adult Immunizations up to date. - Social history:: Smoking status: Patient denies any tobacco usage or history of. Screenin:07 [facility] ED Fall Risk Assessment (Adult) Score/Fall Risk Level 0 - 2 = Low Risk hb Oriented to surroundings, Maintained a safe environment. Abuse screen: Denies threats or abuse. Denies injuries from another. Nutritional screening: No deficits noted. Tuberculosis screening: No symptoms or risk factors identified. Assessment: 18:18 General: See triage assessment.. hb Vital Signs: 18:16 BP 124 / 74; Pulse 102; Resp 16; Temp 98.6; Pulse Ox 100% on R/A; Weight 77.56 kg; hb Height 5 ft. 2 in. (157.48 cm); Pain 9/10; 18:16 Body Mass Index 31.28 (77.56 kg, 157.48 cm) hb ED Course: 18:12 Patient arrived in ED. am2 18:17 Triage completed. hb 18:18 Arm band placed on. hb 18:50 Celina Driver FNP-C is [facility]. kb 18:50 Brannon Cooper MD is Attending Physician. kb 19:07 No provider procedures requiring assistance completed. Patient did not have IV access hb during this emergency room visit. Administered Medications: 19:03 Drug: Viscous Lidocaine Liquid (4 %) 5 ml Route: Mucous Membrane; hb Outcome: 18:55 Discharge ordered by . kb 19:07 Patient left the ED. hb Signatures: Celina Driver FNP-C FNP-Ckb Baxter, Heather, RN RN Nicole Price am2
[2022-12-21] MEDS ORDERED: LIDOCAINE VISCOUS 2% SOLN 15 ML UDC ONE (19:04)
[2022-12-21 19:32] VITALS: BP 124/74; TEMP 98.6; O2SAT 100
== END 2022-12-21 19:07 | disposition home or self-care (01) ==
LOC: ER 18:11
DX: K04.7 Periapical abscess without sinus (principal)
CPT/HCPCS: 99282

== ENCOUNTER 2022-12-30 01:50 | Emergency (ER) | payer SELFPAY ==
[2022-12-30] MEDS ORDERED: NA CHLORIDE 0.9% 1,000 ML ONE (02:40)
[2022-12-30] MEDS ORDERED: ONDANSETRON 4 MG/2 ML VIAL ONE (02:40)
[2022-12-30] MEDS ORDERED: FENTANYL CITR 100 MCG/2 ML ONE ×2 (02:40→04:09)
[2022-12-30 02:48] LABS: Hematocrit 35.5 % (36.0-45.0); Lymphocytes % 17.2 % (15.3-44.8); MCV 89.9 fL (80-100); MPV 7.7 fL (7.6-11.3); RBC Red Blood Cell Count 3.95 M/uL (3.86-4.86)
[2022-12-30 02:48] LABS: Urine Blood 1+ (Negative); Urine Glucose Negative (Negative); Urine Protein Negative (Negative); Urine pH 5.5 (5.0-7.0)
[2022-12-30] MEDS ORDERED: METOCLOPRAMIDE 10 MG/2mL INJ ONE (02:53)
[2022-12-30 03:02] LABS: AST/SGOT 15 U/L (15-37); Albumin 2.7 g/dL (3.4-5.0); Alkaline Phosphatase 99 U/L (45-117); BUN Blood Urea Nitrogen 8 mg/dL (7-18); Bicarbonate 26 mmol/L (21-32); Bilirubin Total 0.2 mg/dL (0.2-1.0); Glomerular Filtration Rate 54 ml/min (=/>90); Glucose Level 198 mg/dL (74-106); Lipase 107 U/L (73-393); Protein, Total 6.6 g/dL (6.4-8.2); Sodium Level 139 mmol/L (136-145)
[2022-12-30 03:03] LABS: ALT/SGPT < 10 U/L (13-56); Potassium 2.9 mmol/L (3.5-5.1)
[2022-12-30 03:05] LABS: Renal Epithelial <5 /HPF (None Seen); Urine Bacteria None Seen /HPF (<20); Urine RBC <5 /HPF (None Seen)
[2022-12-30] MEDS ORDERED: NA CHLORIDE 0.9% 50 ML ONE (04:09)
[2022-12-30] MEDS ORDERED: CEFTRIAXONE 1000 MG/VIAL ONE (04:09)
--- NOTE | 2022-12-30 04:26 | ER ---
Nurse's Notes [id number] Name: Ara Mercado Age: 37 yrs Sex: Female : 1985 Arrival Date: 12/30/2022 Time: 01:55 Bed 6 Private MD: Diagnosis: UTI/ Urinary tract infection, site not specified;Abdominal tenderness;Other specified noninfective gastroenteritis and colitis Presentation: 12/30 02:18 Chief complaint: Patient states: "I had an IUD put in Friday and the pain in my abdomen as6 and back isn't going away. I also have pain and numbness in my left leg". Coronavirus screen: At this time, the client does not indicate any symptoms associated with coronavirus-19. Ebola Screen: No symptoms or risks identified at this time. Initial Sepsis Screen: Does the patient meet any 2 criteria? No. Patient's initial sepsis screen is negative. Does the patient have a suspected source of infection? No. Patient's initial sepsis screen is negative. Risk Assessment: Do you want to hurt yourself or someone else? Patient reports no desire to harm self or others. Onset of symptoms was December 29, 2022. 02:18 Acuity: CHARISSA 3 as6 02:18 Method Of Arrival: Ambulatory as6 Historical: - Allergies: 02:07 Amoxicillin; as6 02:07 Bactrim; as6 02:07 Flagyl; as6 02:07 Morphine; as6 02:07 Toradol; as6 02:07 Tramadol HCl; as6 - Home Meds: 02:07 gabapentin Oral [Active]; Glipizide Oral [Active]; levothyroxine oral [Active]; Lipitor as6 Oral [Active]; losartan Oral [Active]; Ozempic subcutaneous [Active]; pantoprazole Oral [Active]; - PMHx: 02:07 diabetes mellitus; DVT; Hypercholesterolemia; Hypertensive disorder; Hypothyroidism; as6 NSTEMI; - PSHx: 02:07 Cholecystectomy; as6 - Immunization history:: Client reports receiving the 2nd dose of the Covid vaccine, pfizer Flu vaccine is not up to date. - Social history:: Smoking status: Patient reports the use of cigarette tobacco products, smokes one-half pack cigarettes per day. Screenin:20 [facility] ED Fall Risk Assessment (Adult) Score/Fall Risk Level 0 - 2 = Low Risk. Abuse as6 screen: Denies threats or abuse. Denies injuries from another. Nutritional screening: No deficits noted. Tuberculosis screening: No symptoms or risk factors identified. Assessment: 02:29 General: Appears uncomfortable, Behavior is calm, cooperative. Pain: Complains of pain as6 in back, abdomen and left leg Quality of pain is described as crampy. Neuro: Level of Consciousness is awake, alert, obeys commands, Oriented to person, place, time, situation. Cardiovascular: Capillary refill < 3 seconds Patient's skin is warm and dry. Respiratory: Airway is patent Trachea midline Respiratory effort is even, unlabored, Respiratory pattern is regular, symmetrical. GI: Reports lower abdominal pain, cramping. Musculoskeletal: Reports pain in left leg. 03:29 General: "I'm still hurting". as6 03:52 General: provider notified of pain . as6 Vital Signs: 02:18 BP 112 / 73; Pulse 101; Resp 17 S; Temp 98.4(O); Pulse Ox 100% on R/A; Weight 76.66 kg as6 (R); Height 5 ft. 2 in. (157.48 cm) (R); Pain 9/10; 03:51 BP 119 / 79; Pulse 94; Resp 18 S; Pulse Ox 100% on R/A; as6 04:49 BP 122 / 73; Pulse 88; Resp 18; Temp 98.2; Pulse Ox 100% on R/A; Pain 7/10; pf1 02:18 Body Mass Index 30.91 (76.66 kg, 157.48 cm) as6 ED Course: 01:55 Patient arrived in ED. [email or web address] 02:07 Elver Ceja, RN is Primary Nurse. as6 02:07 Arm band placed on. as6 02:09 Rashad Sandoval PA is PHCP. cp 02:10 Rashad Melgoza MD is Attending Physician. cp 02:20 Triage completed. as6 02:21 Placed in gown. Bed in low position. Call light in reach. Side rails up X 1. as6 02:30 Inserted saline lock: 22 gauge in right forearm, using aseptic technique. Blood as6 collected. done by ERT. 03:22 Transvaginal Study Probe In Process Unspecified. EDMS 03:23 US Extremity Venous Unilateral Ltd In Process Unspecified. EDMS 03:33 CT Abd/Pelvis - IV Contrast Only In Process Unspecified. EDMS 04:13 Urine Culture Sent. as6 04:26 Torri Angel MD is Referral Physician. bobbi 04:50 No provider procedures requiring assistance completed. IV discontinued, intact, pf1 bleeding controlled, No redness/swelling at site. Pressure dressing applied. Administered Medications: 02:42 Drug: NS 0.9% 1000 ml Route: IV; Rate: 1 bolus; Site: right forearm; as6 03:40 Follow up: Response: No adverse reaction; IV Status: Completed infusion; IV Intake: pf1 1000ml 02:42 Drug: fentaNYL (PF) 25 mcg Route: IVP; Site: right forearm; as6 03:40 Follow up: Response: No adverse reaction; Marked relief of symptoms; Pain is unchanged, pf1 physician notified; RASS: Alert and Calm (0) 02:48 Not Given (Patient Refused): Zofran (Ondansetron) 4 mg IVP once; over 2 minutes as6 02:52 Drug: Reglan (metoCLOPramide) 10 mg Route: IVP; Site: right forearm; as6 03:50 Follow up: Response: No adverse reaction; Marked relief of symptoms pf1 04:13 Drug: fentaNYL (PF) 50 mcg Route: IVP; Site: right forearm; as6 04:48 Follow up: Response: No adverse reaction; Marked relief of symptoms; Pain is unchanged, pf1 physician notified; RASS: Alert and Calm (0) 04:13 Not Given (Other Intervention Used): Zofran (Ondansetron) 4 mg IVP once; over 2 minutes as6 04:13 Drug: Rocephin (cefTRIAXone) 1 grams Route: IV; Rate: per protocol; Site: right forearm;as6 04:48 Follow up: Response: No adverse reaction pf1 04:48 Follow up: IV Status: Completed infusion; IV Intake: 10ml pf1 04:40 Drug: Cipro (ciprofloxacin) 500 mg Route: PO; pf1 04:48 Follow up: Response: No adverse reaction pf1 Medication: 02:20 VIS not applicable for this client. as6 Intake: 03:40 IV: 1000ml; Total: 1000ml. pf1 04:48 IV: 10ml; Total: 1010ml. pf1 Outcome: 04:26 Discharge ordered by . bobbi 04:50 Patient left the ED. pf1 04:51 Discharged to home ambulatory. pf1 04:51 Discharged to home ambulatory, with family. 04:51 Condition: improved 04:51 Discharge instructions given to patient, Instructed on discharge instructions, follow up and referral plans. medication usage, Demonstrated understanding of instructions, follow-up care, medications, Prescriptions given X 3. Signatures: Dispatcher [employer] EDAR Rashad Melgoza MD MD cha Page, Corey, PA Beatriz Chávez cp [email or web address] Elver Ceja, VÍCTOR RN as6 Columba taylor RN RN pf1
--- NOTE | 2022-12-30 04:26 | EDPHYS ---
Physician Documentation [facility] Name: Ara Mercado Age: 37 yrs Sex: Female : 1985 Arrival Date: 12/30/2022 Time: 01:55 Bed 6 Private MD: ZACHARY Physician Rashad Melgoza HPI: 12/30 02:15 This 37 yrs old Female presents to ER via Unassigned with complaints of Abdominal Pain, cp Low Back Pain, Left leg numbness. 02:15 The patient presents with abdominal pain in the lower abdomen. cp 02:15 Onset: The symptoms/episode began/occurred 2 day(s) ago. cp 02:15 The symptoms radiate to low back. cp 02:15 Associated signs and symptoms: Pertinent positives: left leg pain and numbness. cp 02:15 Patient reports having IUD placed by physician at [facility] this past Friday. Denies vaginal cp bleeding. Historical: - Allergies: 02:07 Amoxicillin; as6 02:07 Bactrim; as6 02:07 Flagyl; as6 02:07 Morphine; as6 02:07 Toradol; as6 02:07 Tramadol HCl; as6 - Home Meds: 02:07 gabapentin Oral [Active]; Glipizide Oral [Active]; levothyroxine oral [Active]; Lipitor as6 Oral [Active]; losartan Oral [Active]; Ozempic subcutaneous [Active]; pantoprazole Oral [Active]; - PMHx: 02:07 diabetes mellitus; DVT; Hypercholesterolemia; Hypertensive disorder; Hypothyroidism; as6 NSTEMI; - PSHx: 02:07 Cholecystectomy; as6 - Immunization history:: Client reports receiving the 2nd dose of the Covid vaccine, pfizer Flu vaccine is not up to date. - Social history:: Smoking status: Patient reports the use of cigarette tobacco products, smokes one-half pack cigarettes per day. ROS: 02:20 Constitutional: Negative for body aches, chills, fever, poor PO intake. cp 02:20 Cardiovascular: Negative for chest pain, edema, palpitations. cp 02:20 Respiratory: Negative for cough, shortness of breath, wheezing. 02:20 Abdomen/GI: Positive for abdominal pain, nausea, diarrhea, Negative for vomiting, constipation, black/tarry stool, rectal bleeding. 02:20 MS/extremity: Positive for pain, paresthesias, tenderness, of the left leg. 02:20 Eyes: Negative for injury, pain, redness, and discharge. cp 02:20 ENT: Negative for drainage from ear(s), ear pain, sore throat, difficulty swallowing, cp difficulty handling secretions. 02:20 : Negative for vaginal bleeding. 02:20 Neuro: Negative for altered mental status, dizziness, headache, weakness. 02:20 All other systems are negative. Exam: 02:25 Constitutional: The patient appears in no acute distress, alert, awake, cp non-diaphoretic, non-toxic, well developed, well nourished. 02:25 Head/Face: Normocephalic, atraumatic. cp 02:25 Eyes: Periorbital structures: appear normal, Conjunctiva: normal, no exudate, no injection, Sclera: no appreciated abnormality, Lids and lashes: appear normal, bilaterally. 02:25 ENT: External ear(s): are unremarkable, Nose: is normal, Mouth: Lips: moist, Oral mucosa: moist, Posterior pharynx: is normal, airway is patent. 02:25 Chest/axilla: Inspection: normal. 02:25 Cardiovascular: Rate: tachycardic, Rhythm: regular. 02:25 Respiratory: the patient does not display signs of respiratory distress, Respirations: normal, no use of accessory muscles, no retractions, labored breathing, is not present, Breath sounds: are clear throughout, no decreased breath sounds, no stridor, no wheezing. 02:25 Abdomen/GI: Inspection: abdomen appears normal, Bowel sounds: active, all quadrants, Palpation: soft, in all quadrants, moderate abdominal tenderness, in the right lower quadrant and left lower quadrant, rebound tenderness, is not appreciated, involuntary guarding, is not appreciated. 02:25 Back: pain, that is moderate, of the low back area, ROM is painful, with all movement. 02:25 Musculoskeletal/extremity: Extremities: grossly normal except: noted in the left leg: pain, tenderness, the left leg decreased sensation. 02:25 Skin: cellulitis, is not appreciated, no rash present. Vital Signs: 02:18 BP 112 / 73; Pulse 101; Resp 17 S; Temp 98.4(O); Pulse Ox 100% on R/A; Weight 76.66 kg as6 (R); Height 5 ft. 2 in. (157.48 cm) (R); Pain 9/10; 03:51 BP 119 / 79; Pulse 94; Resp 18 S; Pulse Ox 100% on R/A; as6 04:49 BP 122 / 73; Pulse 88; Resp 18; Temp 98.2; Pulse Ox 100% on R/A; Pain 7/10; pf1 02:18 Body Mass Index 30.91 (76.66 kg, 157.48 cm) as6 MDM: 02:17 Patient medically screened. cp 03:58 Differential diagnosis: sciatica. Data reviewed: vital signs, nurses notes, lab test bobbi result(s), radiologic studies, CT scan, ultrasound. Consideration of Admission/Observation Escalation of care including admission/observation considered. I considered the following discharge prescriptions or medication management in the emergency department Medications were administered in the Emergency Department. See MAR. Test considered but Not performed: MRI: NO MRI ABDOMEN ORDERED. Care significantly affected by the following chronic conditions: Diabetes. 12/30 02:19 Order name: CBC with Diff; Complete Time: 02:53 cp 12/30 03:11 Interpretation: Normal except: WBC 11.70; HGB 11.6; HCT 35.5; PLT 470; NEUT A 8.5. cp 12/30 02:19 Order name: CMP; Complete Time: 03:10 cp 12/30 03:11 Interpretation: Normal except: K 2.9; GLUC 198; CRE 1.30; GFR 54; ALT < 10; ALB 2.7; cp GLOB 3.9; A/G 0.7. 12/30 02:19 Order name: Lipase; Complete Time: 03:10 cp 12/30 02:19 Order name: Urine Microscopic Only; Complete Time: 03:10 cp 12/30 02:48 Order name: Urine Dipstick-Ancillary; Complete Time: 02:53 EDMS 02 02:48 Interpretation: Normal except: UBLD 1+; UNIT Positive. cp 12/30 02:19 Order name: CT Abd/Pelvis - IV Contrast Only cp 12/30 02:29 Order name: US Extremity Venous Unilateral Ltd cp 12/30 03:22 Order name: Transvaginal Study Probe EDOK 12/30 03:57 Order name: Urine Culture [facility] 12/30 02:19 Order name: IV Saline Lock; Complete Time: 02:33 cp 12/30 02:19 Order name: Labs collected and sent; Complete Time: 02:33 cp 12/30 02:19 Order name: Urine Dipstick-Ancillary (obtain specimen); Complete Time: 02:48 cp 12/30 02:19 Order name: Urine Test (obtain specimen); Complete Time: 02:48 cp Administered Medications: 02:42 Drug: NS 0.9% 1000 ml Route: IV; Rate: 1 bolus; Site: right forearm; as6 03:40 Follow up: Response: No adverse reaction; IV Status: Completed infusion; IV Intake: pf1 1000ml 02:42 Drug: fentaNYL (PF) 25 mcg Route: IVP; Site: right forearm; as6 03:40 Follow up: Response: No adverse reaction; Marked relief of symptoms; Pain is unchanged, pf1 physician notified; RASS: Alert and Calm (0) 02:48 Not Given (Patient Refused): Zofran (Ondansetron) 4 mg IVP once; over 2 minutes as6 02:52 Drug: Reglan (metoCLOPramide) 10 mg Route: IVP; Site: right forearm; as6 03:50 Follow up: Response: No adverse reaction; Marked relief of symptoms pf1 04:13 Drug: fentaNYL (PF) 50 mcg Route: IVP; Site: right forearm; as6 04:48 Follow up: Response: No adverse reaction; Marked relief of symptoms; Pain is unchanged, pf1 physician notified; RASS: Alert and Calm (0) 04:13 Not Given (Other Intervention Used): Zofran (Ondansetron) 4 mg IVP once; over 2 minutes as6 04:13 Drug: Rocephin (cefTRIAXone) 1 grams Route: IV; Rate: per protocol; Site: right forearm;as6 04:48 Follow up: Response: No adverse reaction pf1 04:48 Follow up: IV Status: Completed infusion; IV Intake: 10ml pf1 04:40 Drug: Cipro (ciprofloxacin) 500 mg Route: PO; pf1 04:48 Follow up: Response: No adverse reaction pf1 Disposition: 03:58 Co-signature as Attending Physician, Rashad Melgoza MD I agree with the assessment and bobbi plan of care. Disposition Summary: 12/30/22 04:26 Discharge Ordered Location: Home bobbi Problem: new bobbi Symptoms: have improved bobbi Condition: Stable bobbi Diagnosis - UTI/ Urinary tract infection, site not specified bobbi - Abdominal tenderness bobbi - Other specified noninfective gastroenteritis and colitis bobbi Followup: bobbi - With: Private Physician - When: 2 - 3 days - Reason: Recheck today's complaints, Continuance of care, Re-evaluation by your physician Followup: bobbi - With: Torri Angel MD - When: 2 - 3 days - Reason: Recheck today's complaints, Continuance of care, Re-evaluation by your physician Discharge Instructions: - Discharge Summary Sheet bobbi - Abdominal Pain, Adult bobbi - Dysuria bobbi - Urinary Tract Infection, Adult bobbi - Urinary Tract Infection, Adult, [id number] bobbi - Abdominal Pain, Adult, [id number] bobbi - Colitis [facility] Forms: - Medication Reconciliation Form [facility] - Thank You Letter [facility] - Antibiotic Education [facility] - Prescription Opioid Use [facility] Prescriptions: - Zofran 4 mg Oral Tablet - take 1 tablet by ORAL route every 12 hours As needed; 20 tablet; Refills: 0, [facility] Product Selection Permitted - dicyclomine 20 mg Oral Tablet - take 1 tablet by ORAL route 4 times per day; 28 tablet; Refills: 0, Product [facility] Selection Permitted - Cipro 500 mg Oral Tablet - take 1 tablet by ORAL route every 12 hours for 5 days; 10 tablet; Refills: 0, [facility] Product Selection Permitted Signatures: Dispatcher [employer] Rashad Graham MD MD cha Page, Corey, PA PA cp Slawson, Ashby, RN RN as6 Columba taylor RN RN pf1 Corrections: (The following items were deleted from the chart) 03:22 02:30 Pelvis Complete+[id number] ordered. EDOK SHARAD
[2022-12-30] MEDS ORDERED: CIPROFLOXACIN HCL 500 MG TAB ONE (04:47)
[2022-12-30 05:00] VITALS: O2SAT 100
[2022-12-30 05:16] VITALS: BP 122/73; TEMP 98.2
--- NOTE | 2022-12-30 14:23 | RAD REPORT ---
EXAM DESCRIPTION: CT abdomen and pelvis with IV contrast CLINICAL HISTORY: 37 years Female lower abdomen pain TECHNIQUE: Axial CT imaging of the abdomen and pelvis was performed following the administration of intravenous contrast.. Oral contrast was not administered. Sagittal and coronal reconstructed image s were then performed. The CT study is performed according to ALARA (as low as reasonably achievabl e) or ALARA/IMAGE GENTLY, with automatic adjustment of mA and/or kV according to patient size. Performed on: 12/30/2022 at 3:23 AM. COMPARISON: CT abdomen and pelvis without contrast performed on 12/18/2022 FINDINGS: Lung bases: The lung bases are clear. The heart is normal in size. Liver: The liver is normal in size and configuration. No focal hepatic abnormalities are identified. Liver attenuation is within normal limits. The hepatic and portal veins are patent. Spleen: The spleen is normal in size, configuration and attenuation. Gallbladder and bile duct: The gallbladder is surgically absent. There is no biliary ductal dilatat ion. Pancreas: The pancreas is grossly normal in size and configuration. Adrenal Glands: The adrenal glands are normal in size and configuration. Kidneys: The kidneys are normal in size and configuration. There is no evidence of hydronephrosis. Th ere is no evidence of nephrolithiasis. No definite solid or cystic renal mass lesions are identified. Stomach: The stomach is grossly normal. There is no definite hiatal hernia. Bowel: The bowel gas pattern is non specific and non obstructive. There is mild diffuse colonic wall thickening best appreciated involving the sigmoid portion of the colon likely due to colitis which ma y be infectious or inflammatory in nature. An ischemic etiology is considered less likely. The small bowel is normal in caliber and contour. Appendix: The appendix is normal. Free air: There is no evidence of free air. Free fluid: There is no evidence of free fluid. Vasculature: The aorta is normal in caliber and contour. The inferior vena cava is grossly unremarkab le. There are minimal atherosclerotic calcifications along the distal aorta. Lymphadenopathy: No pathologic lymphadenopathy is identified. Bladder: The bladder is incompletely distended on this examination. Reproductive: The uterus is grossly within normal limits. And intrauterine device is present in the u terine fundus in grossly satisfactory position. Bones: No acute osseous abnormalities are identified. Soft tissues: No acute soft tissue abnormalities are identified. IMPRESSION: 1. Mild diffuse colonic wall thickening best appreciated involving the sigmoid portion of the colon likely due to colitis which may be infectious or inflammatory in nature. An ischemic et iology is considered less likely. 2. Status post cholecystectomy. 3. Intrauterine device in grossly satisfactory position. Electronically signed by: Annette Grimm DO 12/30/2022 4:12 AM CLAMP CARRIER OPERATOR Due to temporary technical issues with the PACS/Fluency reporting system, reports are being signed by the in house radiologists without review as a courtesy to insure prompt reporting. The interpreting radiologist is fully responsible for the content of the report.
--- NOTE | 2022-12-30 15:10 | RAD REPORT ---
EXAM DESCRIPTION: US Pelvis Complete CLINICAL HISTORY: 37 years Female lower abdomen pain, IUD placed 2 days ago, LMP: An intrauterine de vice is present TECHNIQUE: Ultrasound imaging of the pelvis was performed endovaginally on 12/30/2022 at 3: 01 AM. COMPARISON: CT abdomen and pelvis performed on 12/18/2022 FINDINGS: The uterus is normal in size, shape and echogenicity and measures 6.2 x 3.3 x 4.7 cm. Th e endometrial complex measures 0.4 cm in thickness. There is no endometrial fluid. There is a linea r area of increased echogenicity within the endometrial canal consistent with a known intrauterine de vice. There is a cervical nabothian cyst measuring approximately 1 cm in diameter The right ovary measures 3.1 x 2.5 x 2.3 cm. The right ovary contains normal follicles. There is a dominant right ovarian follicle with a maximum dimension of 1.7 cm. Doppler imaging demonstrates no rmal spectral and color Doppler flow. The left ovary measures 2.1 x 1.2 x 1.8 cm. The left ovary contains normal follicles. Doppler rafy ging demonstrates normal spectral waveforms and color Doppler flow. There is no free fluid in the pelvis. IMPRESSION: 1. Intrauterine device present in grossly satisfactory position. 2. Otherwise, unremarkable pelvic ultrasound. Electronically signed by: Annette Grimm DO 12/30/2022 4:01 AM DIRECTOR WEIGHTS AND MEASURES Due to temporary technical issues with the PACS/Fluency reporting system, reports are being signed by the in house radiologists without review as a courtesy to insure prompt reporting. The interpreting radiologist is fully responsible for the content of the report.
--- NOTE | 2022-12-30 15:11 | RAD REPORT ---
EXAM DESCRIPTION: Extremity Venous Uni Ltd CLINICAL HISTORY: 37 years Female PAIN COMPARISON: None TECHNIQUE: Spectral analysis and color/grayscale sonographic images of the left leg were obtained ut ilizing a high-frequency linear array transducer supplemented with color Doppler, compression and aug mentation techniques. FINDINGS: Common femoral: normal Greater saphenous: normal Superficial femoral: normal Popliteal: normal Calf Veins: normal IMPRESSION: 1. No sonographic evidence for left lower extremity deep venous thrombosis. Electronically signed by: Tyler Jaquez MD 12/30/2022 3:32 AM REGIONAL TELECOMMUNICATIONS SPECIALIST Due to temporary technical issues with the PACS/Fluency reporting system, reports are being signed by the in house radiologists without review as a courtesy to insure prompt reporting. The interpreting radiologist is fully responsible for the content of the report.
== END 2022-12-30 04:50 | disposition home or self-care (01) ==
LOC: ER 01:50
DX: N39.0 Urinary tract infection, site not specified (principal); K52.89 Other specified noninfective gastroenteritis and colitis
CPT/HCPCS: 36415; 74177; 76830; 80053; 81003; 81015; 83690; 85025; 87086; 87088; 93971; J2405; J2765; J3010; J7030; Q9967

== ENCOUNTER 2023-01-02 03:41 | Inpatient (IN) | payer SELFPAY ==
[2023-01-02] MEDS ORDERED: HYDROCODONE/APAP 5/325 MG TAB ONE (04:23)
[2023-01-02] MEDS ORDERED: ONDANSETRON 4 MG/2 ML VIAL ONE ×3 (04:23→09:43)
[2023-01-02] MEDS ORDERED: METOCLOPRAMIDE 10 MG/2mL INJ ONE (04:27)
[2023-01-02 04:33] LABS: Absolute Lymphocytes (CBC) 2.9 K/uL (0.7-4.9); Hematocrit 35.9 % (36.0-45.0); Lymphocytes % 19.9 % (15.3-44.8); MCV 89.7 fL (80-100); MPV 7.3 fL (7.6-11.3)
[2023-01-02 04:52] LABS: AST/SGOT 13 U/L (15-37); Alkaline Phosphatase 108 U/L (45-117); BUN Blood Urea Nitrogen 7 mg/dL (7-18); Bicarbonate 27 mmol/L (21-32); Bilirubin Total 0.3 mg/dL (0.2-1.0); Glomerular Filtration Rate 53 ml/min (=/>90); Glucose Level 190 mg/dL (74-106); Lipase 248 U/L (73-393); Protein, Total 7.3 g/dL (6.4-8.2); Sodium Level 139 mmol/L (136-145)
[2023-01-02 04:58] LABS: ALT/SGPT < 10 U/L (13-56)
[2023-01-02 05:59] LABS: Urine Blood Trace-lysed (Negative); Urine Glucose Negative (Negative); Urine Protein Negative (Negative); Urine Specific Gravity 1.015 (1.005-1.030)
[2023-01-02] MEDS ORDERED: FENTANYL CITR 100 MCG/2 ML ONE (06:22)
--- NOTE | 2023-01-02 06:53 | EDPHYS ---
Physician Documentation [facility] Name: Ara Mercado Age: 37 yrs Sex: Female : 1985 Arrival Date: 01/02/2023 Time: 03:43 Bed 14 Private MD: ZACHARY Physician Rashad Melgoza HPI: 01/02 06:46 This 37 yrs old Female presents to ER via Ambulatory with complaints of Back bobbi Pain, Leg Pain, Nausea/Vomiting. 06:46 The patient presents with pain that is acute, with no known mechanism of injury. The bobbi symptoms are located in the left low back, left mid back, right mid back and right low back. Onset: The symptoms/episode began/occurred 3 day(s) ago. The pain radiates to the left low back, left mid back, right mid back and right low back. Associated signs and symptoms: Pertinent positives: abdominal pain. Modifying factors: The patient symptoms are alleviated by nothing, the patient symptoms are aggravated by movement. Severity of symptoms: At their worst the symptoms were mild, moderate, in the emergency department the symptoms are unchanged. The patient has experienced similar episodes in the past, several times. Historical: - Allergies: 03:56 Amoxicillin; jb4 03:56 Bactrim; jb4 03:56 Flagyl; jb4 03:56 Morphine; jb4 03:56 Toradol; jb4 03:56 Tramadol HCl; jb4 - Home Meds: 03:56 gabapentin Oral [Active]; Glipizide Oral [Active]; Lipitor Oral [Active]; losartan Oral jb4 [Active]; levothyroxine oral [Active]; Ozempic subcutaneous [Active]; pantoprazole Oral [Active]; - PMHx: 03:56 Hypercholesterolemia; DVT; Hypertensive disorder; Hypothyroidism; NSTEMI; diabetes jb4 mellitus; - PSHx: 03:56 Cholecystectomy; jb4 - Immunization history:: Adult Immunizations not up to date. - Social history:: Smoking status: Patient reports the use of cigarette tobacco products, smokes one-half pack cigarettes per day, Patient/guardian denies using alcohol, street drugs. - Family history:: not pertinent. ROS: 06:46 Constitutional: Negative for fever, chills, and weight loss, Eyes: Negative for injury, bobbi pain, redness, and discharge, ENT: Negative for injury, pain, and discharge, Neck: Negative for injury, pain, and swelling, Cardiovascular: Negative for chest pain, palpitations, and edema, Respiratory: Negative for shortness of breath, cough, wheezing, and pleuritic chest pain, : Negative for injury, bleeding, discharge, and swelling, MS/Extremity: Negative for injury and deformity, Skin: Negative for injury, rash, and discoloration, Neuro: Negative for headache, weakness, numbness, tingling, and seizure, Psych: Negative for depression, anxiety, suicide ideation, homicidal ideation, and hallucinations, Allergy/Immunology: Negative for hives, rash, and allergies, Endocrine: Negative for neck swelling, polydipsia, polyuria, polyphagia, and marked weight changes, Hematologic/Lymphatic: Negative for swollen nodes, abnormal bleeding, and unusual bruising. 06:46 Abdomen/GI: Positive for abdominal pain, nausea and vomiting, of the posterior aspect of right lateral abdomen, posterior aspect of left lateral abdomen, right lower quadrant and left lower quadrant. 06:46 Back: Positive for pain at rest, flank pain, bilaterally. 06:46 MS/extremity: Positive for pain, of the left leg. Exam: 06:46 Constitutional: This is a well developed, well nourished patient who is awake, alert, bobbi and in no acute distress. Head/Face: Normocephalic, atraumatic. Eyes: Pupils equal round and reactive to light, extra-ocular motions intact. Lids and lashes normal. Conjunctiva and sclera are non-icteric and not injected. Cornea within normal limits. Periorbital areas with no swelling, redness, or edema. ENT: Nares patent. No nasal discharge, no septal abnormalities noted. Tympanic membranes are normal and external auditory canals are clear. Oropharynx with no redness, swelling, or masses, exudates, or evidence of obstruction, uvula midline. Mucous membranes moist. Neck: Trachea midline, no thyromegaly or masses palpated, and no cervical lymphadenopathy. Supple, full range of motion without nuchal rigidity, or vertebral point tenderness. No Meningismus. Chest/axilla: Normal chest wall appearance and motion. Nontender with no deformity. No lesions are appreciated. Cardiovascular: Regular rate and rhythm with a normal S1 and S2. No gallops, murmurs, or rubs. Normal PMI, no JVD. No pulse deficits. Respiratory: Lungs have equal breath sounds bilaterally, clear to auscultation and percussion. No rales, rhonchi or wheezes noted. No increased work of breathing, no retractions or nasal flaring. Back: No spinal tenderness. No costovertebral tenderness. Full range of motion. Skin: Warm, dry with normal turgor. Normal color with no rashes, no lesions, and no evidence of cellulitis. MS/ Extremity: Pulses equal, no cyanosis. Neurovascular intact. Full, normal range of motion. Neuro: Awake and alert, GCS 15, oriented to person, place, time, and situation. Cranial nerves II-XII grossly intact. Motor strength 5/5 in all extremities. Sensory grossly intact. Cerebellar exam normal. Normal gait. Psych: Awake, alert, with orientation to person, place and time. Behavior, mood, and affect are within normal limits. 06:46 Abdomen/GI: Inspection: distension, Bowel sounds: normal, Palpation: mild abdominal tenderness, in the right lower quadrant and left lower quadrant, Liver: no appreciated palpable abnormalities, Hernia: not appreciated. Vital Signs: 03:54 BP 122 / 73; Pulse 100; Resp 16; Temp 99.0(O); Pulse Ox 100% on R/A; Weight 76.66 kg bp (R); Height 5 ft. 2 in. (157.48 cm); Pain 9/10; 05:00 BP 112 / 63; Pulse 96; Resp 16; Pulse Ox 100% on R/A; jb4 06:00 BP 106 / 81; Pulse 83; Resp 16; Pulse Ox 100% on R/A; jb4 08:00 BP 114 / 81; Pulse 87; Resp 16; Pulse Ox 100% ; bp 03:54 Body Mass Index 30.91 (76.66 kg, 157.48 cm) bp MDM: 05:41 Patient medically screened. bobbi 06:49 Differential diagnosis: chronic back pain, Obesity Pyelonephritis ruptured disc, bobbi sprain, Ureterolithiasis. Data reviewed: vital signs, nurses notes, lab test result(s), radiologic studies, CT scan, doppler. Consideration of Admission/Observation Patient was admitted/placed on observation. Escalation of care including admission/observation considered. I considered the following discharge prescriptions or medication management in the emergency department Medications were administered in the Emergency Department. See MAR. Test considered but Not performed: Ultrasound GALLBLADDER. Care significantly affected by the following chronic conditions: Hypertension, Obesity, HYPERCHOLESTEROLEMIA. 01/02 03:59 Order name: CBC with Diff; Complete Time: 05:42 jb4 01/02 03:59 Order name: CMP; Complete Time: 05:42 jb4 01/02 03:59 Order name: Lipase; Complete Time: 05:42 jb4 01/02 05:59 Order name: Urine Dipstick-Ancillary; Complete Time: 06:35 EDMS 01/02 06:46 Order name: SARS RAPID; Complete Time: 08:54 bobbi 01/02 08:09 Order name: CBC with Automated Diff EDMS 01/02 04:16 Order name: CT Abd/Pelvis - IV Contrast Only jb4 01/02 08:09 Order name: CBC with Automated Diff EDMS 01/02 08:09 Order name: Comprehensive Metabolic Panel EDMS 01/02 08:09 Order name: Comprehensive Metabolic Panel EDMS 01/02 03:59 Order name: IV Saline Lock; Complete Time: 04:12 jb4 01/02 03:59 Order name: Labs collected and sent; Complete Time: 04:12 jb4 01/02 04:05 Order name: Urine Dipstick-Ancillary (obtain specimen); Complete Time: 06:03 jb4 01/02 08:09 Order name: Regular EDMS Administered Medications: 04:29 Not Given (Other Intervention Used): Zofran (Ondansetron) 4 mg IVP once; over 2 minutes jb4 04:29 Drug: HYDROcodone-acetaminophen 5 mg-325 mg 1 tabs Route: PO; jb4 05:00 Follow up: Response: No adverse reaction; Marked relief of symptoms jb4 04:30 Drug: Reglan (metoCLOPramide) 10 mg Route: IVP; Site: right antecubital; jb4 05:00 Follow up: Response: No adverse reaction; Marked relief of symptoms jb4 06:29 Drug: fentaNYL (PF) 50 mcg Route: IVP; Site: right antecubital; jb4 07:00 Follow up: Response: No adverse reaction; Marked relief of symptoms jb4 06:29 Drug: Zofran (Ondansetron) 4 mg Route: IVP; Site: right antecubital; jb4 07:00 Follow up: Response: No adverse reaction; Marked relief of symptoms jb4 07:10 Drug: NS 0.9% 1000 ml Route: IV; Rate: 1 bolus; Site: right antecubital; jb4 14:51 Follow up: IV Status: Completed infusion; IV Intake: 1000ml bp 07:10 Drug: Pepcid (famotidine) 20 mg Route: IVP; Site: right antecubital; jb4 14:51 Follow up: Response: No adverse reaction bp 08:16 CANCELLED (CANCEL BY DR Mancini): Clindamycin 900 mg IVPB once over 30 mins; (mix in 50 bp mL) 08:16 Not Given (CANCEL BY DR Mancini): NS 0.9% with KCl 20 mEq/L 1000 ml IV at 125 ml/hr bp continuous 08:17 CANCELLED (CANCEL BY DR CAMERON): Potassium Chloride 20 mEq IV at per protocol once; bp administer over 1-2 hours 08:17 CANCELLED (CANCEL BY DR Mancini): Cipro (ciprofloxacin) 400 mg 200 ml IVPB once over 60 bp mins Disposition Summary: 01/02/23 06:52 Hospitalization Ordered Provider: Ana Cameron cha Condition: Fair bobbi Problem: new bobbi Symptoms: are unchanged bobbi Bed/Room Type: Standard bobbi Hospitalization Status: Inpatient Admission(01/02/23 07:03) bobbi Location: Telemetry/MedSurg (Inpatient)(01/02/23 13:49) em1 Room Assignment: 208(01/02/23 13:49) em1 Diagnosis - Abdominal pain, Generalized bobbi - Hypokalemia bobbi - Low back pain bobbi - Elevated white blood cell count bobbi - Left sided colitis bobbi - Vomiting bobbi Forms: - Medication Reconciliation Form bbobi - SBAR form bobbi Signatures: Dispatcher [employer] EDRashad Hutchison MD MD cha Martinez, Eric em1 Alejandro Dhillon RN RN jb4 dA Mancilla RN RN Pee Sol MD MD rt Corrections: (The following items were deleted from the chart) 07:02 06:52 Inpatient Admission bobbi obbbi 07:02 06:52 Telemetry/MedSurg (Inpatient) bobbi bobbi 07:02 06:52 bobbi bobbi 07:03 07:02 Observation bobbi bobbi 07:03 07:02 Telemetry/MedSurg (observation) bobbi bobbi 07:03 07:02 bobbi bobbi 08:16 06:45 Clindamycin 900 mg IVPB once over 30 mins; (mix in 50 mL) ordered. [facility] bp 08:16 07:11 Clindamycin 900 mg IVPB once over 30 mins; (mix in 50 mL) ordered. jb4 bp 08:17 06:37 Potassium Chloride 20 mEq IV at per protocol once; administer over 1-2 hours bp ordered. [facility] 08:17 06:45 Cipro (ciprofloxacin) 400 mg 200 ml IVPB once over 60 mins ordered. [facility] bp 08:17 07:11 Cipro (ciprofloxacin) 400 mg 200 ml IVPB once over 60 mins ordered. jb4 bp 08:17 07:11 Potassium Chloride 20 mEq IV at per protocol once; administer over 1-2 hours bp ordered. 4 09:23 07:03 Telemetry/MedSurg (Inpatient) [facility] bp 09:23 07:03 [facility] bp 13:49 09:23 [facility] ER HOLD bp em1 13:49 09:23 ERHOLD- bp em1
--- NOTE | 2023-01-02 06:53 | ER ---
Nurse's Notes [facility] Name: Ara Mecrado Age: 37 yrs Sex: Female : 1985 Arrival Date: 01/02/2023 Time: 03:43 Bed 14 Private MD: Diagnosis: Abdominal pain, Generalized;Hypokalemia;Low back pain;Elevated white blood cell count;Left sided colitis;Vomiting Presentation: 01/02 03:54 Chief complaint: Patient states: I was here the other day for the same thing. I am jb4 having back pain, N/V/D. It feels like it is getting worse. The pain is up to a 9/10. Coronavirus screen: Client presents with at least one sign or symptom that may indicate coronavirus-19. Standard/surgical mask placed on the client. Provider contacted for isolation considerations. Ebola Screen: No symptoms or risks identified at this time. Initial Sepsis Screen: Does the patient meet any 2 criteria? HR > 90 bpm. Yes Does the patient have a suspected source of infection? Yes: Acute abdominal pain. Risk Assessment: Do you want to hurt yourself or someone else? Patient reports no desire to harm self or others. Onset of symptoms was December 31, 2022. Transition of care: patient was not received from another setting of care. 03:54 Method Of Arrival: Ambulatory jb4 03:54 Acuity: CHARISSA 3 jb4 Historical: - Allergies: 03:56 Amoxicillin; jb4 03:56 Bactrim; jb4 03:56 Flagyl; jb4 03:56 Morphine; jb4 03:56 Toradol; jb4 03:56 Tramadol HCl; jb4 - Home Meds: 03:56 gabapentin Oral [Active]; Glipizide Oral [Active]; Lipitor Oral [Active]; losartan Oral jb4 [Active]; levothyroxine oral [Active]; Ozempic subcutaneous [Active]; pantoprazole Oral [Active]; - PMHx: 03:56 Hypercholesterolemia; DVT; Hypertensive disorder; Hypothyroidism; NSTEMI; diabetes jb4 mellitus; - PSHx: 03:56 Cholecystectomy; jb4 - Immunization history:: Adult Immunizations not up to date. - Social history:: Smoking status: Patient reports the use of cigarette tobacco products, smokes one-half pack cigarettes per day, Patient/guardian denies using alcohol, street drugs. - Family history:: not pertinent. Screenin:00 [facility] ED Fall Risk Assessment (Adult) History of falling in the last 3 months, bp including since admission No falls in past 3 months (0 pts). Abuse screen: Denies threats or abuse. Denies injuries from another. Nutritional screening: No deficits noted. Tuberculosis screening: No symptoms or risk factors identified. Assessment: 04:00 General: Appears in no apparent distress. uncomfortable, Behavior is calm, cooperative, jb4 appropriate for age. Pain: Complains of pain in back Pain does not radiate. Pain currently is 9 out of 10 on a pain scale. Quality of pain is described as aching. Neuro: Level of Consciousness is awake, alert, obeys commands, Oriented to person, place, time, situation. Cardiovascular: Patient's skin is warm and dry. Respiratory: Airway is patent Respiratory effort is even, unlabored, Respiratory pattern is regular, symmetrical. GI: No signs and/or symptoms were reported involving the gastrointestinal system. : No signs and/or symptoms were reported regarding the genitourinary system. EENT: No signs and/or symptoms were reported regarding the EENT system. Derm: Skin is intact, Skin is pink, warm \T\ dry. Musculoskeletal: Amputation of Range of motion: intact in all extremities. 05:46 Reassessment: Patient appears in no apparent distress at this time. Patient and/or jb4 family updated on plan of care and expected duration. Pain level reassessed. Patient is alert, oriented x 3, equal unlabored respirations, skin warm/dry/pink. 06:28 Reassessment: Patient appears in no apparent distress at this time. Patient and/or jb4 family updated on plan of care and expected duration. Pain level reassessed. Patient is alert, oriented x 3, equal unlabored respirations, skin warm/dry/pink. 07:00 Reassessment: RECD REPORT FROM YANDEL RENEE. 37YO WF P/W CHRONIC RECURRENT BACK PAIN. bp Vital Signs: 03:54 BP 122 / 73; Pulse 100; Resp 16; Temp 99.0(O); Pulse Ox 100% on R/A; Weight 76.66 kg bp (R); Height 5 ft. 2 in. (157.48 cm); Pain 9/10; 05:00 BP 112 / 63; Pulse 96; Resp 16; Pulse Ox 100% on R/A; jb4 06:00 BP 106 / 81; Pulse 83; Resp 16; Pulse Ox 100% on R/A; jb4 08:00 BP 114 / 81; Pulse 87; Resp 16; Pulse Ox 100% ; bp 03:54 Body Mass Index 30.91 (76.66 kg, 157.48 cm) bp ED Course: 03:43 Patient arrived in ED. jj6 03:54 Alejandro Dhillon, RN is Primary Nurse. jb4 03:56 Triage completed. jb4 03:56 Arm band placed on right wrist. jb4 04:12 CBC with Diff Sent. jb4 04:12 CMP Sent. jb4 04:12 Lipase Sent. jb4 05:34 CT Abd/Pelvis - IV Contrast Only In Process Unspecified. EDMS 05:40 Rashad Melgoza MD is Attending Physician. bobbi 06:51 Ana Cameron MD is Hospitalizing Provider. bobbi 07:00 Patient has correct armband on for positive identification. Bed in low position. Call bp light in reach. Side rails up X2. Adult w/ patient. 07:03 Primary Nurse role handed off by Alejandro Dhillon, RN bp 07:03 Ad Mancilla, VÍCTOR is Primary Nurse. bp 14:50 No provider procedures requiring assistance completed. Patient admitted, IV remains in bp place. Administered Medications: 04:29 Not Given (Other Intervention Used): Zofran (Ondansetron) 4 mg IVP once; over 2 minutes jb4 04:29 Drug: HYDROcodone-acetaminophen 5 mg-325 mg 1 tabs Route: PO; jb4 05:00 Follow up: Response: No adverse reaction; Marked relief of symptoms jb4 04:30 Drug: Reglan (metoCLOPramide) 10 mg Route: IVP; Site: right antecubital; jb4 05:00 Follow up: Response: No adverse reaction; Marked relief of symptoms jb4 06:29 Drug: fentaNYL (PF) 50 mcg Route: IVP; Site: right antecubital; jb4 07:00 Follow up: Response: No adverse reaction; Marked relief of symptoms jb4 06:29 Drug: Zofran (Ondansetron) 4 mg Route: IVP; Site: right antecubital; jb4 07:00 Follow up: Response: No adverse reaction; Marked relief of symptoms jb4 07:10 Drug: NS 0.9% 1000 ml Route: IV; Rate: 1 bolus; Site: right antecubital; jb4 14:51 Follow up: IV Status: Completed infusion; IV Intake: 1000ml bp 07:10 Drug: Pepcid (famotidine) 20 mg Route: IVP; Site: right antecubital; jb4 14:51 Follow up: Response: No adverse reaction bp 08:16 CANCELLED (CANCEL BY DR Mancini): Clindamycin 900 mg IVPB once over 30 mins; (mix in 50 bp mL) 08:16 Not Given (CANCEL BY DR Mancini): NS 0.9% with KCl 20 mEq/L 1000 ml IV at 125 ml/hr bp continuous 08:17 CANCELLED (CANCEL BY DR CAMERON): Potassium Chloride 20 mEq IV at per protocol once; bp administer over 1-2 hours 08:17 CANCELLED (CANCEL BY DR Mancini): Cipro (ciprofloxacin) 400 mg 200 ml IVPB once over 60 bp mins Medication: 14:51 VIS not applicable for this client. bp Intake: 14:51 IV: 1000ml; Total: 1000ml. bp Outcome: 06:52 Decision to Hospitalize by Provider. bobbi 14:50 Admitted to Med/surg accompanied by tech, via wheelchair, room 208, with chart, Report bp called to KNENEDY RENEE 14:50 Condition: stable 14:50 Instructed on the need for admit. 15:04 Patient left the ED. bp Signatures: Dispatcher [employer] EDND Rashad Melgoza MD MD cha Bryson, James, RN RN jb4 Ad Mancilla RN RN Beatriz Morocho jj6 Corrections: (The following items were deleted from the chart) 08:27 03:54 BP 122 / 73; Pulse 100bpm; Resp 16bpm; Pulse Ox 100% RA; Temp 99.0F Oral; 76.66 bp kg Reported; Height 5 ft. 2 in.; BMI: 30.9; Pain 9/10; jb4
[2023-01-02] MEDS ORDERED: NA CHLORIDE 0.9% 1,000 ML ONE ×2 (06:59→09:20)
[2023-01-02] MEDS ORDERED: CLINDAMYCIN 900MG/D5W 900 MG/50 ML IVPB IV ONE (06:59)
[2023-01-02] MEDS ORDERED: FAMOTIDINE 20 MG/2 ML VIAL IV ONE (06:59)
[2023-01-02 08:02] LABS: SARS-CoV-2 Antigen Rapid Res Negative (Negative)
[2023-01-02] MEDS ORDERED: ACETAMINOPHEN 500 MG TAB PO PRN (08:05)
[2023-01-02] MEDS ORDERED: ONDANSETRON 4 MG/2 ML VIAL IV PRN (08:05)
[2023-01-02] MEDS: Ciprofloxacin 200mg IV 200 MG/100 ML IV.SOLN. IV SCH ×2 (09:00→21:28)
[2023-01-02] MEDS: HYDROCODONE/APAP 10/325 TAB PO PRN ×3 (09:00→21:29)
[2023-01-02] MEDS: NA CHLORIDE 0.9% 1,000 ML IV SCH ×2 (09:00→18:20)
[2023-01-02] MEDS ORDERED: HYDROCODONE/APAP 10/325 TAB ONE (09:20)
[2023-01-02] MEDS ORDERED: Ciprofloxacin 200mg IV 200 MG/100 ML IV.SOLN. IV ONE (09:20)
[2023-01-02 10:11] VITALS: BMI 4780.4
[2023-01-02] MEDS ORDERED: ACETAMINOPHEN 500 MG TAB ONE (12:15)
--- NOTE | 2023-01-02 17:32 | RAD REPORT ---
EXAM DESCRIPTION: Sinus CT - Abdomen Pelvis W Contrast - 01/02/2023 7:08 am CLINICAL HISTORY: The patient is 37 years old and is Female; nausea, vomiting, diarrhea, back pain TECHNIQUE: Axial computed tomography images of the abdomen and pelvis with intravenous contrast. S agittal and coronal reformatted images were created and reviewed. This CT exam was performed using one or more of the following dose reduction techniques: automated exposure control, adjustment of t he mA and/or kV according to patient size, and/or use of iterative reconstruction technique. COMPARISON: No relevant prior studies available. FINDINGS: Lung bases: Unremarkable. No mass. No consolidation. ABDOMEN: Liver: Unremarkable. No mass. Gallbladder and bile ducts: Gallbladder is surgically absent. No ductal dilation. Pancreas: Unremarkable. No mass. No ductal dilation. Spleen: Unremarkable. No splenomegaly. Adrenals: Unremarkable. No mass. Kidneys and ureters: Unremarkable. No solid mass. No hydronephrosis. Stomach and bowel: Unremarkable. No obstruction. No mucosal thickening. PELVIS: Appendix: No findings to suggest acute appendicitis. Bladder: Unremarkable. Reproductive: IUD in the uterus. ABDOMEN and PELVIS: Intraperitoneal space: Unremarkable. No free air. No significant fluid collection. Bones/joints: No acute fracture. No dislocation. Soft tissues: Unremarkable. Vasculature: Multiple phleboliths. No abdominal aortic aneurysm. Lymph nodes: Unremarkable. No enlarged lymph nodes. IMPRESSION: No acute finding in the abdomen/pelvis. Electronically signed by: Ezra Dudley MD 01/02/2023 6:27 AM CLIENT LIAISON Due to temporary technical issues with the PACS/Fluency reporting system, reports are being signed by the in house radiologists without review as a courtesy to insure prompt reporting. The interpreting radiologist is fully responsible for the content of the report.
[2023-01-02] MEDS ORDERED: AMITRIPTYLINE 10 MG TAB PO PRN (18:15)
[2023-01-02] MEDS ORDERED: GABAPENTIN 300 MG CAP PO PRN (18:15)
--- NOTE | 2023-01-02 18:26 | P.HP ---
Certification for Inpatient Patient admitted to: Observation With expected LOS: <2 Midnights Patient will require the following post-hospital care: None Practitioner: I am a practitioner with admitting privileges, knowledge of patient current condition, hospital course, and medical plan of care. Services: Services provided to patient in accordance with Admission requirements found in Title 42 Section 412.3 of the Code of Federal Regulations Patient History Date of Service: 01/02/23 Reason for admission: Abdominal pain History of Present Illness: Pt is a 37yo who presents to the hospital with abdominal pain. Patient was in the emergency room a couple days ago there was a question of colitis on the CT scan. Repeat CT scan today does not show the colitis. Labs were completely stable. Patient wants to try to eat a diet. Will go ahead and start on a diet anticipate discharge home in the morning. Patient states she has lot of anxiety. She also had carotid chronic pain issues that she has had lower back injury. She is trying to follow up with the spine surgeon and a pain physician. She will need to do this as an outpatient. Monitor her for 24 hours per ER request. But thinks she should be able to go home in a.m. Allergies amoxicillin Allergy (Verified 08/31/22 00:11) Anaphylaxis ketorolac [From Toradol] Allergy (Verified 09/07/21 05:10) Anaphylaxis metronidazole [From Flagyl] Allergy (Verified 09/07/21 05:10) Anaphylaxis morphine Allergy (Verified 09/07/21 05:10) Anaphylaxis sulfamethoxazole [From Bactrim] Allergy (Verified 09/07/21 05:10) Anaphylaxis tramadol Allergy (Verified 09/07/21 05:10) Anaphylaxis trimethoprim [From Bactrim] Allergy (Verified 09/07/21 05:10) Anaphylaxis Home Medications: Diphenhydramine HCl [Benadryl Allergy] 25 mg PO BEDTIME 06/18/22 Gabapentin 300 mg PO Q8HR PRN 06/18/22 Losartan Potassium 25 mg PO DAILY 06/18/22 Amitriptyline HCl 10 mg PO BEDTIME PRN 08/31/22 Aspirin [Aspirin EC 81 MG] 81 mg PO DAILY 08/31/22 Chlorthalidone 25 mg PO DAILY 08/31/22 Glipizide [Glipizide Xl] 10 mg PO DAILY 08/31/22 Levonorgestrel - Ethinyl Estradiol 0.1-20 Mg-Mcg 1 tab PO DAILY 08/31/22 Levothyroxine Sodium [Levothyroxine] 25 mcg PO DAILY 08/31/22 Mecobalamin (B12 Active Oral) 1,000 mcg PO DAILY 08/31/22 Pantoprazole [Protonix Tab*] 40 mg PO DAILY 08/31/22 Promethazine/Dextromethorphan [Promethazine-Dm 6.25-15 mg/5Ml] 5 ml PO QID 08/31/22 methocarbamoL [Methocarbamol] 500 mg PO QID 08/31/22 Apixaban [Eliquis] 5 mg PO BID #74 tab 09/01/22 - Past Medical/Surgical History Diabetic: Yes -: Type 2 Diabetes, Non-Insulin Dependent -: CAD/NSTEMI -: HTN -: Cholecystectomy -: Cardiac cath Psychosocial/ Personal History: Patient is . - Family History Father Medical History: Heart disease - Social History Smoking Status: Never smoker Place of Residence: Home Review of Systems 10-point ROS is otherwise unremarkable Physical Examination - Vital Signs Temperature: 98.0 F Blood Pressure: 110/57 Pulse: 90 Respirations: 14 Pulse Ox (%): 100 - Physical Exam General: Alert, In no apparent distress, Oriented x3 HEENT: Atraumatic, PERRLA, Mucous membr. moist/pink, EOMI, Sclerae nonicteric Neck: Supple, 2+ carotid pulse no bruit, No LAD, Without JVD or thyroid abnormality Respiratory: Clear to auscultation bilaterally, Normal air movement Cardiovascular: Regular rate/rhythm, Normal S1 S2 Gastrointestinal: Normal bowel sounds, Soft and benign, Non-distended, No tenderness Musculoskeletal: No clubbing, No swelling, No tenderness Integumentary: No rashes Neurological: Normal gait, Normal speech, Normal strength at 5/5 x4 extr, Normal tone, Sensation intact, Cranial nerves 3-12 intact, Normal affect Lymphatics: No axilla or inguinal lymphadenopathy - Studies Laboratory Data (last 24 hrs) 01/02/23 04:10: Sodium 139, Potassium 3.0 L, BUN 7, Creatinine 1.31 H, Glucose 190 H, Total Bilirubin 0.3, AST 13 L, ALT < 10 L, Alkaline Phosphatase 108, Lipase 248 01/02/23 04:10: WBC 14.60 H, Hgb 12.2, Hct 35.9 L, Plt Count 492 H Assessment & Plan - Problems (Diagnosis) (1) Abdominal pain Current Visit: No Status: Acute (2) Hypertension Current Visit: No Status: Chronic Qualifiers: Hypertension type: primary hypertension Qualified Code(s): I10 - Essential (primary) hypertension (3) Type 2 diabetes mellitus Current Visit: No Status: Chronic Qualifiers: Diabetes mellitus long-term insulin use: with lobsterman use Diabetes mellitus complication status: with hyperglycemia Qualified Code(s): E11.65 - Type 2 diabetes mellitus with hyperglycemia; 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
[2023-01-02] MEDS: ONDANSETRON 4 MG/2 ML VIAL IV PRN (19:47)
[2023-01-02] MEDS ORDERED: METHYLPREDNISOLONE 40 MG INJ IV ONE (20:00)
[2023-01-02] MEDS: METHOCARBAMOL 500 MG PO SCH (21:00)
[2023-01-02] MEDS: DEXTROMETHORPHAN PO SCH (21:00)
[2023-01-02] MEDS: PROMETHAZINE PO SCH (21:00)
[2023-01-02] MEDS ORDERED: DIPHENHYDRAMINE 25 MG TAB/CAP PO SCH (21:00)
[2023-01-02] MEDS: [UNRECOGNIZED DRUG - OTHER] PO SCH (21:00)
[2023-01-02] MEDS: APIXABAN 5 MG TABLET PO SCH (21:29)
[2023-01-02] MEDS: GLIPIZIDE S.A. 5 MG TAB PO SCH (21:29)
[2023-01-02 23:12] VITALS: O2SAT 96
[2023-01-03] MEDS: METHYLPREDNISOLONE 40 MG INJ IV SCH ×2 (00:28→08:35)
[2023-01-03] MEDS: HYDROCODONE/APAP 10/325 TAB PO PRN ×2 (03:08→09:36)
[2023-01-03 03:44] LABS: Absolute Lymphocytes (CBC) 0.5 K/uL (0.7-4.9); Hematocrit 34.5 % (36.0-45.0); Lymphocytes % 4.9 % (15.3-44.8); MCV 90.7 fL (80-100); MPV 7.7 fL (7.6-11.3)
[2023-01-03 03:56] LABS: ALT/SGPT < 10 U/L (13-56); AST/SGOT 16 U/L (15-37); Alkaline Phosphatase 110 U/L (45-117); BUN Blood Urea Nitrogen 11 mg/dL (7-18); Bicarbonate 24 mmol/L (21-32); Bilirubin Total 0.3 mg/dL (0.2-1.0); Glomerular Filtration Rate 44 ml/min (=/>90); Potassium 3.6 mmol/L (3.5-5.1); Protein, Total 7.1 g/dL (6.4-8.2); Sodium Level 135 mmol/L (136-145)
[2023-01-03 03:57] LABS: Glucose Level 543 mg/dL (74-106)
[2023-01-03] MEDS ORDERED: GLUCAGON 1 MG/VIAL IM PRN ×2 (04:01→05:32)
[2023-01-03] MEDS ORDERED: NA CHLORIDE 0.9% 500 ML IV ONE (04:01)
[2023-01-03] MEDS ORDERED: D50W 25 GM/50 ML SYRINGE IV PRN ×2 (04:01→05:32)
[2023-01-03] MEDS ORDERED: INSULIN -REGULAR HUMAN 50 UNIT/0.5 ML ML IV ONE ×2 (04:02→05:32)
[2023-01-03] MEDS ORDERED: D10W 125 ML IV PRN (04:11)
[2023-01-03 04:15] LABS: Blood Morphology Comment NOTED (NOT SEEN); Platelet Estimate INCR; Rouleau NOTED; White Blood Cell Scan OK (OK)
[2023-01-03] MEDS: NA CHLORIDE 0.9% 1,000 ML IV SCH (04:23)
[2023-01-03] MEDS: ONDANSETRON 4 MG/2 ML VIAL IV PRN (04:29)
[2023-01-03] MEDS ORDERED: INSULIN -REGULAR HUMAN 50 UNIT/0.5 ML ML SQ ONE (05:33)
[2023-01-03] MEDS ORDERED: PROMETHAZINE INJ 25 MG/ML AMP IV ONE (05:35)
[2023-01-03 06:04] VITALS: TEMP 98
[2023-01-03] MEDS ORDERED: INSULIN -REGULAR HUMAN 50 UNIT/0.5 ML ML SQ SCH (07:30)
[2023-01-03] MEDS ORDERED: LEVOTHYROXINE SOD 0.025 MG TAB PO SCH (07:30)
[2023-01-03 08:12] VITALS: BP 109/61
[2023-01-03] MEDS: Ciprofloxacin 200mg IV 200 MG/100 ML IV.SOLN. IV SCH (08:34)
[2023-01-03] MEDS: APIXABAN 5 MG TABLET PO SCH (08:35)
[2023-01-03] MEDS: GLIPIZIDE S.A. 5 MG TAB PO SCH (08:41)
[2023-01-03] MEDS ORDERED: PANTOPRAZOLE 40MG TABLET PO SCH (09:00)
[2023-01-03] MEDS: PROMETHAZINE PO SCH (09:00)
[2023-01-03] MEDS ORDERED: LEVONORGESTREL ETHINYL ESTRADIOL PO SCH (09:00)
[2023-01-03] MEDS: DEXTROMETHORPHAN PO SCH (09:00)
[2023-01-03] MEDS: [UNRECOGNIZED DRUG - OTHER] PO SCH (09:00)
[2023-01-03] MEDS ORDERED: MECOBALAMIN 1000 MCG PO SCH (09:00)
[2023-01-03] MEDS: METHOCARBAMOL 500 MG PO SCH (09:00)
[2023-01-03] MEDS ORDERED: ASPIRIN EC 81 MG TAB PO SCH (09:00)
[2023-01-03] MEDS ORDERED: HOME MED 1 EA UNK (Levothyroxine Sodium [Levothyroxine] 25 MCG Capsule) PO SCH (09:00)
[2023-01-03] MEDS ORDERED: LOSARTAN POTASSIUM 50 MG TABLET PO SCH (09:00)
[2023-01-03] MEDS ORDERED: CHLORTHALIDONE 25 MG TAB PO SCH (09:00)
--- NOTE | 2023-01-05 09:17 | RAD REPORT ---
EXAM DESCRIPTION: Laura Single View01/03/2023 5:27 am CLINICAL HISTORY: Chest pain COMPARISON: November 2022 FINDINGS: The exam is being submitted to me now for interpretation. The lungs appear clear of acute infiltrate. The heart is normal size IMPRESSION: No acute abnormalities displayed
== END 2023-01-03 11:11 | disposition home or self-care (01) | DRG 392 ==
LOC: ER 03:41 → ERHOLD 08:05 → 2ND 14:49 → OBSVTOIN 18:41
PROVIDERS: ADMIT Hospitalist; ATTEND Hospitalist
DX: R10.84 Generalized abdominal pain (principal); E11.65 Type 2 diabetes mellitus with hyperglycemia; I10 Essential (primary) hypertension; E87.6 Hypokalemia; R11.10 Vomiting, unspecified; D72.829 Elevated white blood cell count, unspecified; M54.50 Low back pain, unspecified; G89.29 Other chronic pain; I25.10 Atherosclerotic heart disease of native coronary artery without angina pectoris; I25.2 Old myocardial infarction; F41.9 Anxiety disorder, unspecified; Z20.822 Contact with and (suspected) exposure to COVID-19; Z79.01 Long term (current) use of anticoagulants; Z79.82 Long term (current) use of aspirin; Z79.899 Other long term (current) drug therapy; Z88.0 Allergy status to penicillin; Z88.2 Allergy status to sulfonamides; Z88.3 Allergy status to other anti-infective agents; Z88.5 Allergy status to narcotic agent; Z88.8 Allergy status to other drugs, medicaments and biological substances; Z90.49 Acquired absence of other specified parts of digestive tract; Z82.49 Family history of ischemic heart disease and other diseases of the circulatory system
CPT/HCPCS: 36415; 71045; 74177; 80053; 81003; 82947; 83690; 85025; 87811; 96361; 96374; 96375; 99285; G0378; J0744; J1815; J2405; J2550; J2765; J2920; J3010; J7030; J7040; Q9967

== ENCOUNTER 2023-01-22 15:28 | Emergency (ER) | payer SELFPAY ==
--- NOTE | 2023-01-22 17:49 | RAD REPORT ---
EXAM DESCRIPTION: RAD - Chest Single View - 01/22/2023 5:35 pm CLINICAL HISTORY: Dizziness Chest pain. COMPARISON: Chest Single View dated 01/03/2023; Chest Single View dated 12/03/2022; Chest Pa And Lat ( 2 Views) dated 10/31/2022; Chest Single View dated 07/19/2022 FINDINGS: Portable technique limits examination quality. The lungs are grossly clear. The heart is normal in size. No displaced fractures. IMPRESSION: No acute intrathoracic process suspected.
[2023-01-22 17:54] LABS: Hematocrit 38.1 % (36.0-45.0); Lymphocytes % 19.6 % (15.3-44.8); MCV 89.9 fL (80-100); MPV 7.8 fL (7.6-11.3); RBC Red Blood Cell Count 4.24 M/uL (3.86-4.86)
[2023-01-22 18:21] LABS: Albumin 3.4 g/dL (3.4-5.0); Alkaline Phosphatase 118 U/L (45-117); BUN Blood Urea Nitrogen 11 mg/dL (7-18); Bicarbonate 25 mmol/L (21-32); Bilirubin Direct 0.1 mg/dL (0-0.2); Bilirubin Total 0.3 mg/dL (0.2-1.0); Glomerular Filtration Rate 40 ml/min (=/>90); Glucose Level 250 mg/dL (74-106); Protein, Total 8.2 g/dL (6.4-8.2); Sodium Level 131 mmol/L (136-145); Troponin High Sensitivity 3.2 pg/mL (<58.9)
[2023-01-22 18:33] LABS: ALT/SGPT < 10 U/L (13-56); AST/SGOT 14 U/L (15-37); Potassium 3.9 mmol/L (3.5-5.1)
[2023-01-22] MEDS ORDERED: DIAZEPAM 10 MG/2 ML INJ SYRINGE ONE (18:34)
[2023-01-22] MEDS ORDERED: ONDANSETRON 4 MG/2 ML VIAL ONE (18:34)
[2023-01-22] MEDS ORDERED: NA CHLORIDE 0.9% 1,000 ML ONE (18:34)
[2023-01-22 18:58] LABS: Urine Blood Trace-intact (Negative); Urine Glucose Negative (Negative); Urine Protein Negative (Negative); Urine pH 5.5 (5.0-7.0)
--- NOTE | 2023-01-22 20:03 | RAD REPORT ---
EXAM DESCRIPTION: CT - Head Brain Wo Cont - 01/22/2023 7:58 pm CLINICAL HISTORY: DIZZINESS Headache, drowsiness COMPARISON: No comparisons TECHNIQUE: All CT scans are performed using dose optimization technique as appropriate and may inclu de automated exposure control or mA/KV adjustment according to patient size. FINDINGS: No intracranial hemorrhage, hydrocephalus or extra-axial fluid collection.No areas of brai n edema or evidence of midline shift. The paranasal sinuses and mastoids are clear. The calvarium is intact. IMPRESSION: No acute intracranial abnormality.
--- NOTE | 2023-01-22 20:06 | RAD REPORT ---
EXAM DESCRIPTION: CT - Abdomen Pelvis Wo Contrast - 01/22/2023 7:58 pm CLINICAL HISTORY: Abdominal pain. FLANK PAIN COMPARISON: <Comparisons> TECHNIQUE: CT imaging of the abdomen and pelvis was performed without contrast. Solid organ, bowel a nd vascular assessment is limited due to lack of IV and oral contrast. All CT scans are performed using dose optimization technique as appropriate and may include automated exposure control or mA/KV adjustment according to patient size. FINDINGS: The lower lung braun are clear.Cholecystectomy clips. The liver, spleen, pancreas, adrenal glands and kidneys are within normal limits for a limited non-co ntrast examination. No bowel obstruction, free air, free fluid or abscess. The appendix is normal. IUD is present in the uterus. The osseous structures are within normal limits. IMPRESSION: No acute intra-abdominal or pelvic findings. A limited non-contrast examination was performed as detailed.
--- NOTE | 2023-01-22 21:12 | EDPHYS ---
Physician Documentation [facility] Name: Ara Mercado Age: 37 yrs Sex: Female : 1985 Arrival Date: 01/22/2023 Time: 15:32 Bed 4 Private MD: ZACHARY Physician Rashda Melgoza HPI: 01/22 16:27 This 37 yrs old Female presents to ER via Ambulatory with complaints of Dizziness, Back pm1 Pain. 16:27 The patient presents with sense of spinning. Onset: The symptoms/episode began/occurred pm1 yesterday. Context: occurs with tinnitus . Modifying factors: The symptoms are alleviated by holding head still, sitting down, the symptoms are aggravated by movement of head, standing up, changing position. Associated signs and symptoms: Pertinent positives: nausea, vomiting, Diarrhea. Right flank pain, Pertinent negatives: chest pain, shortness of breath, abdominal pain. Severity of symptoms: in the emergency department the symptoms are worse. The patient has not experienced similar symptoms in the past, Patient with history of chronic back pain. Reports right flank pain is different than her chronic low back pain but it does make the chronic pain worse. The patient has not recently seen a physician. RN RESIDENTIAL: 21:27 LMP 12/2022 as6 Historical: - Allergies: 16:34 Amoxicillin; ss 16:34 Bactrim; ss 16:34 Flagyl; ss 16:34 Morphine; ss 16:34 Toradol; ss 16:34 Tramadol HCl; ss - PMHx: 16:34 diabetes mellitus; DVT; Hypercholesterolemia; Hypertensive disorder; Hypothyroidism; ss NSTEMI; - PSHx: 16:34 Cholecystectomy; ss - Immunization history:: Client reports receiving the 2nd dose of the Covid vaccine. - Social history:: Smoking status: Patient reports the use of cigarette tobacco products, smokes one-half pack cigarettes per day. ROS: 16:27 Constitutional: Negative for fever, chills, and weight loss. pm1 16:27 Cardiovascular: Negative for chest pain, palpitations, and edema, Respiratory: Negative for shortness of breath, cough, wheezing, and pleuritic chest pain, Abdomen/GI: Negative for abdominal pain, nausea, vomiting, diarrhea, and constipation. 16:27 : Negative for injury, bleeding, discharge, and swelling, MS/Extremity: Negative for injury and deformity, Skin: Negative for injury, rash, and discoloration. 16:27 ENT: Positive for tinnitus, Negative for ear pain, rhinorrhea, sinus congestion, sinus pain, sore throat. 16:27 Back: Positive for flank pain, on the right. 16:27 Neuro: Positive for dizziness. 16:27 All other systems are negative. Exam: 16:27 Constitutional: This is a well developed, well nourished patient who is awake, alert, pm1 and in no acute distress. Head/Face: Normocephalic, atraumatic. 16:27 Skin: Warm, dry with normal turgor. Normal color with no rashes, no lesions, and no evidence of cellulitis. MS/ Extremity: Pulses equal, no cyanosis. Neurovascular intact. Full, normal range of motion. 16:27 Cardiovascular: Exam negative for acute changes, Rate: normal, Rhythm: regular, Pulses: no pulse deficits are appreciated, Heart sounds: normal. 16:27 Respiratory: Exam negative for acute changes, respiratory distress, shortness of breath, Breath sounds: are clear throughout. 16:27 Abdomen/GI: Exam negative for acute changes, Inspection: abdomen appears normal, Palpation: abdomen is soft and non-tender, in all quadrants. 16:27 Back: muscle spasm, is appreciated in the right low back. 16:27 Neuro: Exam negative for acute changes, Orientation: is normal, Mentation: is normal. Vital Signs: 16:32 BP 98 / 68; Pulse 105; Resp 16; Temp 98.0(TE); Pulse Ox 99% on R/A; Weight 76.2 kg; ss Height 5 ft. 2 in. (157.48 cm); Pain 9/10; 19:19 BP 94 / 72; Pulse 94; Resp 18 S; Pulse Ox 100% on R/A; as6 20:30 BP 100 / 58; Pulse 94; Resp 18 S; Pulse Ox 100% on R/A; ha1 21:07 BP 105 / 64; Pulse 99; Resp 18 S; Pulse Ox 100% on R/A; as6 16:32 Body Mass Index 30.73 (76.20 kg, 157.48 cm) ss MDM: 15:51 Patient medically screened. pm1 21:00 ED course: [place] reviewed. pm1 21:10 Data reviewed: vital signs. Counseling: I had a detailed discussion with the patient pm1 and/or guardian regarding: the historical points, exam findings, and any diagnostic results supporting the discharge/admit diagnosis, lab results, radiology results, the need for outpatient follow up, to return to the emergency department if symptoms worsen or persist or if there are any questions or concerns that arise at home. 01/22 16:27 Order name: CT Head Brain wo Cont pm1 01/22 16:27 Order name: Basic Metabolic Panel; Complete Time: 18:40 pm1 01/22 16:27 Order name: CBC with Diff; Complete Time: 17:58 pm1 01/22 16:27 Order name: LFT's; Complete Time: 18:40 pm1 01/22 16:27 Order name: Troponin HS; Complete Time: 18:40 pm1 01/22 16:27 Order name: XRAY Chest (1 view); Complete Time: 17:50 pm1 01/22 16:27 Order name: EKG; Complete Time: 16:29 pm1 01/22 16:27 Order name: Cardiac monitoring; Complete Time: 18:33 pm1 01/22 16:27 Order name: EKG - Nurse/Tech; Complete Time: 18:32 pm1 01/22 16:27 Order name: IV Saline Lock; Complete Time: 18:20 pm1 01/22 16:27 Order name: Labs collected and sent; Complete Time: 18:32 pm1 01/22 16:27 Order name: O2 Per Protocol; Complete Time: 18:32 pm1 01/22 16:27 Order name: O2 Sat Monitoring; Complete Time: 18:32 pm1 01/22 18:40 Order name: Urine Dipstick-Ancillary (obtain specimen); Complete Time: 18:58 pm1 01/22 18:40 Order name: Urine Test (obtain specimen); Complete Time: 18:59 pm1 01/22 18:59 Order name: Urine --Ancillary (enter results) bd 01/22 18:59 Order name: Urine Dipstick-Ancillary; Complete Time: 18:59 EDMS 01/22 19:40 Order name: Abdomen ; Complete Time: 20:06 EDMS 01/22 20:04 Order name: CT; Complete Time: 20:04 EDMS EC:39 Rate is 95 beats/min. Rhythm is regular, Normal Sinus Rhythm. QRS [place] is Normal. PA pm1 interval is normal. QRS interval is normal. QT interval is normal. No Q waves. No ST changes noted. Clinical impression: Normal sinus rhythm, nonspecific T wave abnormality, abnormal EKG. Administered Medications: 16:40 CANCELLED (Physician Discretion): NS 0.9% 500 ml IV at bolus once pm1 18:42 Drug: Zofran (Ondansetron) 4 mg Route: IVP; Site: left antecubital; hb 21:18 Follow up: Response: No adverse reaction as6 18:42 Drug: NS 0.9% 1000 ml Route: IV; Rate: 1000 ml; Site: left antecubital; hb 21:17 Follow up: Response: No adverse reaction; IV Status: Completed infusion; IV Intake: as6 1000ml 18:43 Drug: Valium (diazepam) 5 mg Route: IVP; Site: left antecubital; hb 21:18 Follow up: Response: No adverse reaction as6 21:16 Drug: Dilaudid (HYDROmorphone) 1 mg Route: IVP; Site: left antecubital; as6 21:17 Follow up: Response: No adverse reaction as6 21:16 Drug: Meclizine 50 mg Route: PO; as6 21:17 Follow up: Response: No adverse reaction as6 Disposition Summary: 01/22/23 21:11 Discharge Ordered Location: Home pm1 Problem: new pm1 Symptoms: have improved pm1 Condition: Stable pm1 Diagnosis - Benign paroxysmal vertigo pm1 - Low back pain pm1 Followup: pm1 - With: Emergency Department - When: As needed - Reason: Worsening of condition Followup: pm1 - With: Private Physician - When: 2 - 3 days - Reason: Recheck today's complaints, Continuance of care, Re-evaluation by your physician Discharge Instructions: - Discharge Summary Sheet pm1 - Chronic Back Pain pm1 - Benign Positional Vertigo pm1 - Flank Pain, Adult pm1 Forms: - Medication Reconciliation Form pm1 - Thank You Letter pm1 - Antibiotic Education pm1 - Prescription Opioid Use pm1 Prescriptions: - Meclizine 25 mg Oral Tablet - take 1 tablet by ORAL route every 8 hours As needed; 30 tablet; Refills: 0, pm1 Product Selection Permitted - Tylenol-Codeine #3 300 mg-30 mg Oral - take 2 tablet by ORAL route every 6 hours As needed; 20 tablet; Refills: 0, pm1 Product Selection Permitted Signatures: Dispatcher [employer] EDMS Adriane Coronado RN RN ss Alexandru Fields, BRANCH MECHANIC BRANCH MECHANIC pm1 Idalmis Cotton RN RN Elver Ceja RN RN as6 Corrections: (The following items were deleted from the chart) 16:40 16:28 NS 0.9% 500 ml IV at bolus once ordered. pm1 pm1 19:40 16:28 Abdomen Pelvis W Con+CT.RAD.BRZ ordered. EDMS EDMS
--- NOTE | 2023-01-22 21:12 | ER ---
Nurse's Notes [facility] Name: Ara Mercado Age: 37 yrs Sex: Female : 1985 Arrival Date: 01/22/2023 Time: 15:32 Bed 4 Private MD: Diagnosis: Benign paroxysmal vertigo;Low back pain Presentation: 01/22 16:32 Chief complaint: Patient states: dizziness that began yesterday and R mid back pain ss that began 1 week ago. Coronavirus screen: Client denies travel out of the [place] in the last 14 days. Ebola Screen: Patient denies exposure to infectious person. Patient denies travel to an Ebola-affected area in the 21 days before illness onset. Initial Sepsis Screen: Does the patient meet any 2 criteria? No. Patient's initial sepsis screen is negative. Does the patient have a suspected source of infection? No. Patient's initial sepsis screen is negative. Risk Assessment: Do you want to hurt yourself or someone else? Patient reports no desire to harm self or others. Onset of symptoms was January 15, 2023. 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 - Social history:: Smoking status: Patient reports the use of cigarette tobacco products, smokes one-half pack cigarettes per day. Screenin:43 [facility] ED Fall Risk Assessment (Adult) Score/Fall Risk Level 0 - 2 = Low Risk hb Oriented to surroundings, Maintained a safe environment. Abuse screen: Denies threats or abuse. Denies injuries from another. Nutritional screening: No deficits noted. Tuberculosis screening: No symptoms or risk factors identified. Assessment: 18:43 General: Appears in no apparent distress. Behavior is calm, cooperative. Pain: Pain hb currently is 7 out of 10 on a pain scale. Neuro: Level of Consciousness is awake, alert, obeys commands, Oriented to person, place, time, situation. Cardiovascular: Patient's skin is warm and dry. Respiratory: Respiratory effort is even, unlabored, Respiratory pattern is regular, symmetrical. GI: Reports lower abdominal pain, upper abdominal pain. : No signs and/or symptoms were reported regarding the genitourinary system. EENT: No signs and/or symptoms were reported regarding the EENT system. Derm: Skin is pink, warm \\T\\ dry. Musculoskeletal: No signs and/or symptoms reported regarding the musculoskeletal system. 19:20 General: "I medicine did nothing" provider notified . as6 19:30 General: Appears in no apparent distress. comfortable, Behavior is calm, cooperative. ha1 Pain: Complains of pain in back Pain does not radiate. Pain currently is 7 out of 10 on a pain scale. Quality of pain is described as throbbing. Neuro: Level of Consciousness is awake, alert, obeys commands, Oriented to person, place, time, situation. Neuro: Reports dizziness. Cardiovascular: Patient's skin is warm and dry. Respiratory: Airway is patent Respiratory effort is even, unlabored, Respiratory pattern is regular, symmetrical. GI: No signs and/or symptoms were reported involving the gastrointestinal system. Musculoskeletal: Circulation, motion, and sensation intact. Range of motion: intact in all extremities. 20:30 Reassessment: Patient and/or family updated on plan of care and expected duration. Pain ha1 level reassessed. Patient is alert, oriented x 3, equal unlabored respirations, skin warm/dry/pink. 21:07 General: pt asking for pain medicine. provider at bedside . as6 Vital Signs: 16:32 BP 98 / 68; Pulse 105; Resp 16; Temp 98.0(TE); Pulse Ox 99% on R/A; Weight 76.2 kg; ss Height 5 ft. 2 in. (157.48 cm); Pain 9/10; 19:19 BP 94 / 72; Pulse 94; Resp 18 S; Pulse Ox 100% on R/A; as6 20:30 BP 100 / 58; Pulse 94; Resp 18 S; Pulse Ox 100% on R/A; ha1 21:07 BP 105 / 64; Pulse 99; Resp 18 S; Pulse Ox 100% on R/A; as6 16:32 Body Mass Index 30.73 (76.20 kg, 157.48 cm) ED Course: 15:32 Patient arrived in ED. mr 15:50 Alexandru Fields, RICARDO is PHCP. pm1 15:50 Rashad Melgoza MD is Attending Physician. pm1 16:33 Triage completed. ss 16:34 Arm band placed on right wrist. ss 17:36 XRAY Chest (1 view) In Process Unspecified. EDMS 18:20 Inserted saline lock: 20 gauge in left antecubital area, using aseptic technique. ss ,using aseptic technique. VIA US GUIDED. 18:28 Idalmis Cotton, RN is Primary Nurse. hb 19:20 Bed in low position. Call light in reach. Side rails up X 1. Adult w/ patient. as6 19:50 Urine --Ancillary (enter results) Sent. pf1 21:17 No provider procedures requiring assistance completed. IV discontinued, intact, as6 bleeding controlled, No redness/swelling at site. Pressure dressing applied. Administered Medications: 16:40 CANCELLED (Physician Discretion): NS 0.9% 500 ml IV at bolus once pm1 18:42 Drug: Zofran (Ondansetron) 4 mg Route: IVP; Site: left antecubital; hb 21:18 Follow up: Response: No adverse reaction as6 18:42 Drug: NS 0.9% 1000 ml Route: IV; Rate: 1000 ml; Site: left antecubital; hb 21:17 Follow up: Response: No adverse reaction; IV Status: Completed infusion; IV Intake: as6 1000ml 18:43 Drug: Valium (diazepam) 5 mg Route: IVP; Site: left antecubital; hb 21:18 Follow up: Response: No adverse reaction as6 21:16 Drug: Dilaudid (HYDROmorphone) 1 mg Route: IVP; Site: left antecubital; as6 21:17 Follow up: Response: No adverse reaction as6 21:16 Drug: Meclizine 50 mg Route: PO; as6 21:17 Follow up: Response: No adverse reaction as6 Medication: 19:20 VIS not applicable for this client. as6 Intake: 21:17 IV: 1000ml; Total: 1000ml. as6 Outcome: 21:11 Discharge ordered by . pm1 21:17 Discharged to home ambulatory, with significant other. as6 21:17 Condition: stable 21:27 Discharge instructions given to patient, Instructed on discharge instructions, follow as6 up and referral plans. medication usage, Demonstrated understanding of instructions, follow-up care, medications, Prescriptions given X 1. 21:27 Patient left the ED. as6 Signatures: Dispatcher [employer] EDMA Milena Grewal mr HenrikAdriane soto RN RN ss Alexandru Fields, RICARDO COMPLEX CARE NURSE PRACTITIONER pm1 Idalmis Cotton RN RN Elver Ceja RN RN as6 [place] Restrepo RN RN ha1 Columba taylor RN RN pf1
[2023-01-22] MEDS ORDERED: MECLIZINE HCL 12.5 MG TAB ONE (21:17)
[2023-01-22] MEDS ORDERED: HYDROMORPHONE HCL 1 MG/ML INJ ONE (21:17)
[2023-01-22 21:58] VITALS: TEMP 98
[2023-01-22 22:00] VITALS: O2SAT 100
[2023-01-22 22:03] VITALS: BP 105/64
--- NOTE | 2023-01-23 17:27 | EKG ---
Test Date: 2023-01-22 Test Time: 18:39:15 Timber Buyer: HB MEASUREMENT RESULTS: Intervals: Rate: 95 RI: 148 QRSD: 98 QT: 366 QTc: 459 [place]: P: 31 RI: 148 QRS: 47 T: 18 INTERPRETIVE STATEMENTS: Normal sinus rhythm Nonspecific T wave abnormality Abnormal ECG Compared to ECG 12/03/2022 23:58:14 T-wave abnormality now present Electronically Signed On 01-23-23 17:25:51 SUBMARINE OPERATOR by Nick Franco
== END 2023-01-22 21:27 | disposition home or self-care (01) ==
LOC: ER 15:28
DX: H81.10 Benign paroxysmal vertigo, unspecified ear (principal); M54.50 Low back pain, unspecified; F17.210 Nicotine dependence, cigarettes, uncomplicated
CPT/HCPCS: 36415; 70450; 71045; 74176; 80048; 80076; 81003; 81025; 84484; 85025; 93005; J1170; J2405; J3360; J7030; J8597

== ENCOUNTER 2023-02-13 22:38 | Emergency (ER) | payer SELFPAY ==
[2023-02-13] MEDS ORDERED: HYDROCODONE/APAP 7.5/325 MG TAB ONE (23:25)
--- NOTE | 2023-02-13 23:57 | EDPHYS ---
Physician Documentation [facility] Name: Ara Mercado Age: 37 yrs Sex: Female : 1985 Arrival Date: 02/13/2023 Time: 22:39 Bed DX3 Private MD: ED Physician Alex Lemons HPI: 02/13 23:20 This 37 yrs old Female presents to ER via Ambulatory with complaints of Toothache. cp 23:20 The patient presents with pain. The problem is located in the left lower jaw. Onset: cp The symptoms/episode began/occurred gradually, and became worse today. Duration: The symptoms are continuous, and are steadily getting worse. Associated signs and symptoms: Pertinent positives: swelling, facial, Pertinent negatives: anorexia, dysphagia, fever. Severity of symptoms: in the emergency department the symptoms are unchanged, despite home interventions. Historical: - Allergies: 23:12 Amoxicillin; vc1 23:12 Bactrim; vc1 23:12 Flagyl; vc1 23:12 Morphine; vc1 23:12 Toradol; vc1 23:12 Tramadol HCl; vc1 - Home Meds: 23:12 gabapentin Oral [Active]; Glipizide Oral [Active]; levothyroxine oral [Active]; Lipitor vc1 Oral [Active]; losartan Oral [Active]; Ozempic subcutaneous [Active]; pantoprazole Oral [Active]; - PMHx: 23:12 diabetes mellitus; DVT; Hypercholesterolemia; Hypertensive disorder; Hypothyroidism; vc1 NSTEMI; - PSHx: 23:12 Cholecystectomy; vc1 - Immunization history:: Client reports receiving the 2nd dose of the Covid vaccine. - Social history:: Smoking status: Patient reports the use of cigarette tobacco products, smokes one-half pack cigarettes per day. ROS: 23:25 Constitutional: Negative for body aches, chills, fever, poor PO intake. cp 23:25 Eyes: Negative for injury, pain, redness, and discharge. cp 23:25 ENT: Positive for dental pain, Negative for drainage from ear(s), ear pain, sore throat, difficulty swallowing, difficulty handling secretions. 23:25 Cardiovascular: Negative for chest pain, palpitations. 23:25 Respiratory: Negative for cough, shortness of breath, wheezing. 23:25 Abdomen/GI: Negative for abdominal pain, vomiting, diarrhea, constipation. 23:25 Neuro: Negative for altered mental status, dizziness, headache, weakness. 23:25 All other systems are negative. Exam: 23:30 Constitutional: The patient appears in no acute distress, alert, awake, non-toxic, well cp developed, well nourished, uncomfortable. 23:30 Head/face: Noted is swelling, of the left jaw, of the very mild, tenderness, that is cp moderate, of the left jaw. 23:30 Eyes: Periorbital structures: appear normal, Conjunctiva: normal, no exudate, no injection, Sclera: no appreciated abnormality, Lids and lashes: appear normal, bilaterally. 23:30 ENT: External ear(s): are unremarkable, Ear canal(s): are normal, clear, TM's: dullness, bilaterally, Nose: is normal, Mouth: Lips: moist, Oral mucosa: pink and intact, moist, Gums: pink, Tongue: is normal, abscess, is not appreciated, Posterior pharynx: Airway: no evidence of obstruction, patent, Tonsils: are normal in appearance, swelling, is not appreciated, erythema, is not appreciated, exudate, is not appreciated, Dental exam: abscess, is not appreciated, dental caries, that is severe, diffusely, gum swelling, not appreciated, pain, that is moderate, specifically in the multiple teeth left lower jaw, all teeth of lower jaw worn down to gumline but no oral swelling and no abscess noted, Voice: is normal. 23:30 Neck: ROM/movement: is normal, is supple, no meningismus, no nuchal rigidity, Lymph nodes: no appreciated lymphadenopathy. 23:30 Chest/axilla: Inspection: normal. 23:30 Cardiovascular: Rate: tachycardic, Rhythm: regular. 23:30 Respiratory: the patient does not display signs of respiratory distress, Respirations: normal, no use of accessory muscles, no retractions, labored breathing, is not present, Breath sounds: are clear throughout, no decreased breath sounds, no stridor, no wheezing. Vital Signs: 23:10 BP 130 / 86; Pulse 105; Resp 15; Temp 97.9; Pulse Ox 98% on R/A; Weight 75.75 kg; vc1 Height 5 ft. 2 in. ; Pain 10/10; 23:10 Body Mass Index 30.54 (75.75 kg, 157.48 cm) vc1 23:10 Pain Scale: Adult vc1 MDM: 23:04 Patient medically screened. cp 23:30 Differential diagnosis: dental caries, gingivitis, dental abscess, cellulitis. cp 23:55 Data reviewed: vital signs, nurses notes. cp 23:55 Consideration of Admission/Observation Escalation of care including cp admission/observation considered. Test considered but Not performed: Labs: cbc, bmp. CT: facial bones. Care significantly affected by the following chronic conditions: dental disease. Counseling: I had a detailed discussion with the patient and/or guardian regarding: the historical points, exam findings, and any diagnostic results supporting the discharge/admit diagnosis, the need for outpatient follow up, for definitive care, a dentist, to return to the emergency department if symptoms worsen or persist or if there are any questions or concerns that arise at home. Response to treatment: the patient's symptoms have mildly improved after treatment, and as a result, I will discharge patient. ED course: Review of [place] prescription monitor website shows concern when inquiry made using patient's name and . Will not prescribe controlled pain meds. Administered Medications: 23:22 Drug: Hydrocodone-Acetaminophen PO (7.5 mg-325 mg) 1 tabs Route: PO; 02/14 00:02 Follow up: Response: No adverse reaction [facility] 02/13 23:22 Drug: Clindamycin PO 300 mg Route: PO; 02/14 00:02 Follow up: Response: No adverse reaction vc1 Disposition Summary: 02/13/23 23:56 Discharge Ordered Location: Home cp Problem: an ongoing problem cp Symptoms: have improved cp Condition: Stable cp Diagnosis - Disorder of teeth and supporting structures, unspecified cp Followup: cp - With: Private Physician - When: 1 - 2 days - Reason: Recheck today's complaints Discharge Instructions: - Discharge Summary Sheet cp - Dental Pain cp Forms: - Medication Reconciliation Form cp - Thank You Letter cp - Antibiotic Education cp - Prescription Opioid Use cp Prescriptions: - Clindamycin HCl 300 mg Oral Capsule - take 1 capsule by ORAL route every 6 hours for 10 days; 40 capsule; Refills: 0, cp Product Selection Permitted - Zofran 4 mg Oral Tablet - take 1 tablet by ORAL route every 12 hours As needed; 10 tablet; Refills: 0, cp Product Selection Permitted Signatures: Milla Cooper RN RN kl Rashad Sandoval PA PA cp Lora Victor, VÍCTOR RN vc1
--- NOTE | 2023-02-13 23:57 | ER ---
Nurse's Notes [facility] Name: Ara Mercado Age: 37 yrs Sex: Female : 1985 Arrival Date: 02/13/2023 Time: 22:39 Bed DX3 Private MD: Diagnosis: Disorder of teeth and supporting structures, unspecified Presentation: 02/13 23:10 Chief complaint: Patient states: "I have a toothache.". Coronavirus screen: Vaccine vc1 status: Patient reports receiving the 2nd dose of the covid vaccine. Pawzii Client denies travel out of the [place] in the last 14 days. At this time, the client does not indicate any symptoms associated with coronavirus-19. Ebola Screen: Patient negative for fever greater than or equal to 101.5 degrees Fahrenheit, and additional compatible Ebola Virus Disease symptoms Patient denies exposure to infectious person. Patient denies travel to an Ebola-affected area in the 21 days before illness onset. No symptoms or risks identified at this time. Initial Sepsis Screen: Does the patient meet any 2 criteria? No. Patient's initial sepsis screen is negative. Does the patient have a suspected source of infection? No. Patient's initial sepsis screen is negative. Risk Assessment: Do you want to hurt yourself or someone else? Patient reports no desire to harm self or others. Onset of symptoms is unknown. 23:10 Method Of Arrival: Ambulatory vc1 23:10 Acuity: CHARISSA 4 vc1 Triage Assessment: 23:15 General: Appears in no apparent distress. uncomfortable, Behavior is agitated. Pain: vc1 Complains of pain in left side of mouth. EENT: Reports pain in Left bottom side of mouth. Neuro: No deficits noted. Cardiovascular: No deficits noted. Respiratory: Airway is patent Respiratory effort is even, unlabored, Respiratory pattern is regular, symmetrical. GI: No deficits noted. No signs and/or symptoms were reported involving the gastrointestinal system. : No deficits noted. No signs and/or symptoms were reported regarding the genitourinary system. Derm: No deficits noted. No signs and/or symptoms reported regarding the dermatologic system. Musculoskeletal: No deficits noted. No signs and/or symptoms reported regarding the musculoskeletal system. Historical: - Allergies: 23:12 Amoxicillin; vc1 23:12 Bactrim; vc1 23:12 Flagyl; vc1 23:12 Morphine; vc1 23:12 Toradol; vc1 23:12 Tramadol HCl; vc1 - Home Meds: 23:12 gabapentin Oral [Active]; Glipizide Oral [Active]; levothyroxine oral [Active]; Lipitor vc1 Oral [Active]; losartan Oral [Active]; Ozempic subcutaneous [Active]; pantoprazole Oral [Active]; - PMHx: 23:12 diabetes mellitus; DVT; Hypercholesterolemia; Hypertensive disorder; Hypothyroidism; vc1 NSTEMI; - PSHx: 23:12 Cholecystectomy; vc1 - Immunization history:: Client reports receiving the 2nd dose of the Covid vaccine. - Social history:: Smoking status: Patient reports the use of cigarette tobacco products, smokes one-half pack cigarettes per day. Screenin:23 [facility] ED Fall Risk Assessment (Adult) History of falling in the last 3 months, kl including since admission No falls in past 3 months (0 pts) Confusion or Disorientation No (0 pts) Intoxicated or Sedated No (0 pts) Impaired Gait No (0 pts) Mobility Assist Device Used No (0 pt) Altered Elimination No (0 pt) Score/Fall Risk Level 0 - 2 = Low Risk Oriented to surroundings, Maintained a safe environment. Abuse screen: Denies threats or abuse. Nutritional screening: No deficits noted. Tuberculosis screening: No symptoms or risk factors identified. Assessment: 23:22 General: Appears distressed, uncomfortable, Behavior is cooperative. Pain: Complains of kl pain in left jaw Pain currently is 10 out of 10 on a pain scale. Vital Signs: 23:10 BP 130 / 86; Pulse 105; Resp 15; Temp 97.9; Pulse Ox 98% on R/A; Weight 75.75 kg; vc1 Height 5 ft. 2 in. ; Pain 10/10; 23:10 Body Mass Index 30.54 (75.75 kg, 157.48 cm) vc1 23:10 Pain Scale: Adult vc1 ED Course: 22:39 Patient arrived in ED. es 22:44 Rashad Sandoval PA is PHCP. cp 22:44 Alex Lemons MD is Attending Physician. cp 23:12 Triage completed. vc1 23:14 Arm band placed on left wrist. vc1 23:23 No provider procedures requiring assistance completed. Patient did not have IV access kl during this emergency room visit. 02/14 00:02 placed in chair. vc1 Administered Medications: 02/13 23:22 Drug: Hydrocodone-Acetaminophen PO (7.5 mg-325 mg) 1 tabs Route: PO; 02/14 00:02 Follow up: Response: No adverse reaction vc1 02/13 23:22 Drug: Clindamycin PO 300 mg Route: PO; 02/14 00:02 Follow up: Response: No adverse reaction vc1 Medication: 00:02 VIS not applicable for this client. vc1 Outcome: 02/13 23:56 Discharge ordered by MD. aj 02/14 00:02 Discharged to home ambulatory. vc1 Condition: unchanged Discharge instructions given to patient, Instructed on discharge instructions, follow up and referral plans. medication usage, Demonstrated understanding of instructions, follow-up care, medications, Prescriptions given X 2. 00:03 Patient left the ED. vc1 Signatures: Milla Cooper RN RN Olga Whitman Corey, PA PA cp Calcote, Vanessa RN RN vc1
[2023-02-14 00:34] VITALS: BP 130/86; TEMP 97.9; O2SAT 98
== END 2023-02-14 00:03 | disposition home or self-care (01) ==
LOC: ER 22:38
DX: K08.89 Other specified disorders of teeth and supporting structures (principal)
CPT/HCPCS: 99283

== ENCOUNTER 2023-04-18 23:10 | Emergency (ER) | payer SELFPAY ==
[2023-04-19 01:51] LABS: Urine Bilirubin NEGATIVE (Negative); Urine Blood Negative (Negative); Urine Clarity Clear (Clear); Urine Color Light-Yellow (Yellow); Urine Glucose 1+ (Negative); Urine Protein NEGATIVE (Negative); Urine Urobilinogen Normal (Normal)
[2023-04-19] MEDS ORDERED: DIAZEPAM 5 MG TABLET ONE (02:07)
--- NOTE | 2023-04-19 02:13 | ER ---
Nurse's Notes [facility] Name: Ara Mercado Age: 38 yrs Sex: Female : 1985 Arrival Date: 04/18/2023 Time: 23:10 Bed IW10 Private MD: Diagnosis: Low back pain;Dysuria Presentation: 04/18 23:35 Chief complaint: Patient states: lower back pain X1 week. Coronavirus screen: Client pf1 denies travel out of the [place] in the last 14 days. At this time, the client does not indicate any symptoms associated with coronavirus-19. Ebola Screen: No symptoms or risks identified at this time. Initial Sepsis Screen: Does the patient meet any 2 criteria? No. Patient's initial sepsis screen is negative. Does the patient have a suspected source of infection? No. Patient's initial sepsis screen is negative. Risk Assessment: Do you want to hurt yourself or someone else? Patient reports no desire to harm self or others. Onset of symptoms is unknown. 23:35 Method Of Arrival: Ambulatory pf1 23:35 Acuity: CHARISSA 3 pf1 Triage Assessment: 23:36 General: Appears in no apparent distress. uncomfortable, Behavior is calm, cooperative. pf1 Pain: Complains of pain in back. EENT: No deficits noted. No signs and/or symptoms were reported regarding the EENT system. Neuro: No deficits noted. Cantu Agitation-Sedation Scale (RASS): 0 - Alert and Calm Level of Consciousness is awake, alert, obeys commands, Oriented to person, place, time, situation. Cardiovascular: No deficits noted. Denies chest pain, shortness of breath, Capillary refill < 3 seconds Clubbing of nail beds is absent Patient's skin is warm and dry. Respiratory: No deficits noted. Airway is patent Respiratory effort is even, unlabored, Respiratory pattern is regular, symmetrical. GI: No deficits noted. No signs and/or symptoms were reported involving the gastrointestinal system. : No deficits noted. No signs and/or symptoms were reported regarding the genitourinary system. Derm: No deficits noted. No signs and/or symptoms reported regarding the dermatologic system. Skin is intact, is healthy with good turgor, Skin is dry, Skin is normal, Skin temperature is warm. Musculoskeletal: Circulation, motion, and sensation intact. Range of motion: intact in all extremities, Reports pain in back. 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 - Social history:: Smoking status: Patient reports the use of cigarette tobacco products, smokes one pack cigarettes per day. Patient/guardian denies using alcohol, street drugs. Screenin:45 [facility] ED Fall Risk Assessment (Adult) History of falling in the last 3 months, pf1 including since admission No falls in past 3 months (0 pts) Confusion or Disorientation No (0 pts) Intoxicated or Sedated No (0 pts) Impaired Gait No (0 pts) Mobility Assist Device Used No (0 pt) Altered Elimination No (0 pt) Score/Fall Risk Level 0 - 2 = Low Risk Oriented to surroundings, Maintained a safe environment, Educated pt \T\ family on fall prevention, incl call for assistance when getting out of bed, Assessed \T\ reinforced patient's understanding of fall precautions, Provided non-skid footwear, Hourly rounding (assess needs \T\ fall precautionary measures) done, Used ambulatory aids as needed (educated on \T\ assisted with), Used gait belt as appropriate. 23:45 Abuse screen: Denies threats or abuse. Nutritional screening: No deficits noted. pf1 Tuberculosis screening: No symptoms or risk factors identified. Assessment: 23:45 General: Appears in no apparent distress. uncomfortable, well groomed, well developed, pf1 Behavior is calm, cooperative, appropriate for age, quiet. 23:45 Pain: Complains of pain in lower back pain Pain began 1 week. Neuro: No deficits noted. pf1 Level of Consciousness is awake, alert, obeys commands, Oriented to person, place, time, situation. Cardiovascular: No deficits noted. Capillary refill < 3 seconds Patient's skin is warm and dry. Respiratory: No deficits noted. Airway is patent Trachea midline Respiratory effort is even, unlabored, Respiratory pattern is regular, symmetrical. GI: No deficits noted. No signs and/or symptoms were reported involving the gastrointestinal system. : No deficits noted. No signs and/or symptoms were reported regarding the genitourinary system. EENT: No deficits noted. No signs and/or symptoms were reported regarding the EENT system. Derm: No deficits noted. No signs and/or symptoms reported regarding the dermatologic system. Musculoskeletal: Reports pain in lower back. 04/19 01:30 Reassessment: Patient appears in no apparent distress at this time. Patient and/or pf1 family updated on plan of care and expected duration. Pain level reassessed. Patient is alert, oriented x 3, equal unlabored respirations, skin warm/dry/pink. Patient states symptoms have improved. Vital Signs: 04/18 23:35 BP 122 / 82; Pulse 84; Resp 17 S; Temp 97.8(TE); Pulse Ox 100% on R/A; Weight 74.39 kg pf1 (R); Height 5 ft. 2 in. (R); 23:35 Body Mass Index 30.00 (74.39 kg, 157.48 cm) pf1 ED Course: 23:11 Patient arrived in ED. ja2 23:24 Mahamed Mcclellan DO is Attending Physician. ms3 23:36 Triage completed. pf1 23:36 Arm band placed on left wrist. pf1 23:43 Radiology exam delayed due to test not completed at this time. [id number] 23:45 Patient has correct armband on for positive identification. Bed in low position. Call pf1 light in reach. 23:45 No provider procedures requiring assistance completed. pf1 23:45 Patient did not have IV access during this emergency room visit. pf1 04/19 00:34 Lumbar Spine (3 Views) XRAY In Process Unspecified. EDMS 02:12 Nam Mcbride DO is Referral Physician. ms3 Administered Medications: 00:33 CANCELLED (Other Intervention Used): HYDROcodone-acetaminophen PO 5 mg-325 mg 1 tabs PO la1 once 02:02 Drug: Diazepam PO 5 mg Route: PO; cg 02:40 Follow up: Response: No adverse reaction; Marked relief of symptoms; Pain is decreased; pf1 RASS: Alert and Calm (0) Medication: 04/18 23:45 VIS not applicable for this client. pf1 Outcome: 04/19 02:12 Discharge ordered by . ms3 02:40 Discharged to home ambulatory, with family. pf1 02:40 Condition: stable 02:40 Discharge instructions given to patient, Instructed on discharge instructions, follow up and referral plans. Demonstrated understanding of instructions, follow-up care, medications, Prescriptions given X 2. 04:23 Patient left the ED. pf1 Signatures: Dispatcher [employer] Roxana Crocker, RN RN cg Mahamed Mcclellan DO DO ms3 Shasha Taylor [facility] Columba Cramer, VÍCTOR RN pf1 Jose StringerP-[facility]
--- NOTE | 2023-04-19 02:13 | EDPHYS ---
Physician Documentation [facility] Name: Ara Mercado Age: 38 yrs Sex: Female : 1985 Arrival Date: 04/18/2023 Time: 23:10 Bed IW10 Private MD: ED Physician Mahamed Mcclellan HPI: 04/19 00:30 This 38 yrs old Female presents to ER via Ambulatory with complaints of Back Pain. ms3 00:30 38-year-old female past medical history of diabetes, DVT, hyperlipidemia, hypertension ms3 presents for lower back pain that has been ongoing for 1 week. Patient rates the pain a 9/10. Patient endorses nausea, vomiting, chills. Patient denies bowel or bladder incontinence, weakness, numbness.. 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 - Social history:: Smoking status: Patient reports the use of cigarette tobacco products, smokes one pack cigarettes per day. Patient/guardian denies using alcohol, street drugs. ROS: 04/19 00:30 Constitutional: Negative for fever, and chills. Neck: Negative for injury, pain, and ms3 swelling, Cardiovascular: Negative for chest pain, and palpitations. Respiratory: Negative for shortness of breath, cough, wheezing, and pleuritic chest pain, Abdomen/GI: Negative for abdominal pain, nausea, vomiting, diarrhea, and constipation, MS/Extremity: Negative for injury and deformity, Neuro: Negative for headache, weakness, numbness, tingling. Back: Positive for pain at rest, pain with movement. All other systems are negative. Exam: 00:30 Constitutional: This is a well developed, well nourished patient who is awake, alert, ms3 and in no acute distress. Head/Face: Normocephalic, atraumatic. Neck: Trachea midline, no cervical lymphadenopathy. Supple, full range of motion without nuchal rigidity, or vertebral point tenderness. No Meningismus. Chest/axilla: Normal chest wall appearance and motion. Nontender with no deformity. Cardiovascular: Regular rate and rhythm with a normal S1 and S2. No gallops, murmurs, or rubs. Normal PMI, no JVD. No pulse deficits. Respiratory: Lungs have equal breath sounds bilaterally, clear to auscultation and percussion. No rales, rhonchi or wheezes noted. No increased work of breathing, no retractions or nasal flaring. Abdomen/GI: Soft, non-tender, with normal bowel sounds. No distension or tympany. No guarding or rebound. No evidence of tenderness throughout. 00:30 Back: pain, that is moderate, of the right low back, vertebral tenderness, is not appreciated. Vital Signs: 04/18 23:35 BP 122 / 82; Pulse 84; Resp 17 S; Temp 97.8(TE); Pulse Ox 100% on R/A; Weight 74.39 kg pf1 (R); Height 5 ft. 2 in. (R); 23:35 Body Mass Index 30.00 (74.39 kg, 157.48 cm) pf1 MDM: 23:35 Patient medically screened. ms3 04/19 00:30 Differential diagnosis: Metastatic Disease Muscle spasm. ms3 04:02 Data reviewed: vital signs, nurses notes, radiologic studies, and as a result, I will ms3 discharge patient. Counseling: I had a detailed discussion with the patient and/or guardian regarding: the historical points, exam findings, and any diagnostic results supporting the discharge/admit diagnosis, radiology results, the need for outpatient follow up, to return to the emergency department if symptoms worsen or persist or if there are any questions or concerns that arise at home. Response to treatment: the patient's symptoms have mildly improved after treatment, and as a result, I will discharge patient. Special discussion: I discussed with the patient/guardian in detail that at this point there is no indication for admission to the hospital. It is understood, however, that if the symptoms persist or worsen the patient needs to return immediately for re-evaluation. 04/18 23:35 Order name: Urinalysis w/ reflexes; Complete Time: 02:07 ms3 04/18 23:35 Order name: Test, Urine; Complete Time: 02:07 ms3 04/18 23:35 Order name: Lumbar Spine (3 Views) XRAY ms3 Administered Medications: 00:33 CANCELLED (Other Intervention Used): HYDROcodone-acetaminophen PO 5 mg-325 mg 1 tabs PO la1 once 02:02 Drug: Diazepam PO 5 mg Route: PO; cg 02:40 Follow up: Response: No adverse reaction; Marked relief of symptoms; Pain is decreased; pf1 RASS: Alert and Calm (0) Disposition Summary: 04/19/23 02:12 Discharge Ordered Location: Home ms3 Condition: Stable ms3 Diagnosis - Low back pain ms3 - Dysuria ms3 Followup: ms3 - With: Nam Mcbride DO - When: 2 - 3 days - Reason: Recheck today's complaints Discharge Instructions: - Discharge Summary Sheet ms3 - Acute Back Pain, Adult ms3 Forms: - Medication Reconciliation Form ms3 - Thank You Letter ms3 - Antibiotic Education ms3 - Prescription Opioid Use ms3 Prescriptions: - Cyclobenzaprine 10 mg Oral Tablet - take 1 tablet by ORAL route every 8 hours As needed; 30 tablet; Refills: 0, ms3 Product Selection Permitted - Prednisone 20 mg Oral Tablet - take 2 tablets by ORAL route once daily for 5 days; 10 tablet; Refills: 0, ms3 Product Selection Permitted Signatures: Dispatcher [employer] EDSD Jsoe Stringer FNP-C FNP-Cla1 Roxana Santiago RN RN Mahamed Seo DO DO ms3 Columba Cramer RN RN pf1 Corrections: (The following items were deleted from the chart) 00:33 04/18 23:35 HYDROcodone-acetaminophen PO 5 mg-325 mg 1 tabs PO once ordered. ms3 la1
[2023-04-19 04:29] VITALS: BP 122/82; TEMP 97.8; O2SAT 100
--- NOTE | 2023-04-19 21:16 | RAD REPORT ---
EXAM DESCRIPTION: RAD - Lumbar Spine 3 Views - 04/19/2023 12:32 am CLINICAL HISTORY: LOWER BACK PAIN TECHNIQUE: Three views of the lumbar spine were submitted. COMPARISON: None available for comparison FINDINGS: Vertebra: No evidence of compression deformity or subluxation. Disc spaces: Mild narrowing of the L5-S1 intervertebral disc space. Soft tissues: There is an IUD in place. IMPRESSION: 1. Mild narrowing of the L5-S1 intervertebral disc space. 2. No evidence of acute compression deformity or subluxation. Electronically signed by: Luis Carlos Brannon MD 04/19/2023 12:51 AM CDT Due to temporary technical issues with the PACS/Fluency reporting system, reports are being signed by the in house radiologists without review as a courtesy to insure prompt reporting. The interpreting radiologist is fully responsible for the content of the report.
== END 2023-04-19 04:23 | disposition home or self-care (01) ==
LOC: ER 23:10
DX: M54.50 Low back pain, unspecified (principal); R30.0 Dysuria
CPT/HCPCS: 72100; 81003; 81025; 99283

== ENCOUNTER 2023-05-10 02:36 | Emergency (ER) | payer SELFPAY ==
[2023-05-10 03:45] LABS: Absolute Lymphocytes (CBC) 1.9 K/uL (0.7-4.9); Hematocrit 38.5 % (36.0-45.0); Lymphocytes % 16.5 % (15.3-44.8); MCV 92.9 fL (80-100); MPV 7.4 fL (7.6-11.3); RBC Red Blood Cell Count 4.15 M/uL (3.86-4.86)
[2023-05-10] MEDS ORDERED: ONDANSETRON 4 MG/2 ML VIAL ONE (03:59)
[2023-05-10 04:02] LABS: Albumin 3.5 g/dL (3.4-5.0); Bilirubin Total 0.5 mg/dL (0.2-1.0); Potassium 3.5 mEq/L (3.5-5.1); Protein, Total 7.9 g/dL (6.4-8.2)
[2023-05-10 04:12] LABS: Specific Gravity 1.017 (1.005-1.030)
[2023-05-10] MEDS ORDERED: NA CHLORIDE 0.9% 1,000 ML ONE (04:20)
[2023-05-10] MEDS ORDERED: DICYCLOMINE HCL 10 MG CAP ONE (04:20)
[2023-05-10] MEDS ORDERED: ACETAMINOPHEN 500 MG TAB ONE (04:20)
[2023-05-10 04:21] LABS: Specific Gravity 1.017 (1.005-1.030); Urine Bacteria <20 /HPF (<20); Urine Bilirubin NEGATIVE (Negative); Urine Blood Negative (Negative); Urine Clarity Extremely Turbid (Clear); Urine Color Yellow (Yellow); Urine Glucose NEGATIVE (Negative); Urine Mucus Slight /HPF (None Seen); Urine Protein TRACE (Negative); Urine RBC <5 /HPF (None Seen); Urine Urobilinogen Normal (Normal); Urine WBC Clump Occasional /HPF (None Seen); Urine pH 5.5 (5.0-7.0)
[2023-05-10] MEDS ORDERED: PHENAZOPYRIDINE 100MG TAB PO ONE (06:47)
[2023-05-10] MEDS ORDERED: PROMETHAZINE 25 MG TABLET ONE (06:47)
[2023-05-10] MEDS ORDERED: CEPHALEXIN 250 MG CAP ONE (06:47)
--- NOTE | 2023-05-10 06:57 | EDPHYS ---
Physician Documentation [facility] Name: Ara Mercado Age: 38 yrs Sex: Female : 1985 Arrival Date: 05/10/2023 Time: 02:36 Bed 8 Private MD: ED Physician Jordan Archer HPI: 05/10 02:53 This 38 yrs old Other Race Female presents to ER via Unassigned with complaints of sp4 Nausea/Vomiting. 06:38 Patient's with past medical history of diabetes, DVT, hypothyroidism, NSTEMI, hype sp4 cholesterolemia, presents with worsening lower abdominal pain, nausea vomiting diarrhea and pressure with urination. All that starting 6 days ago. Patient reports significant lower abdominal pain. Patient reported profuse watery nonbloody diarrhea . . 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 - Social history:: Smoking status: Patient reports the use of cigarette tobacco products, smokes one-half pack cigarettes per day. - Family history:: not pertinent. ROS: 06:38 Constitutional: Negative for fever, chills, and weight loss, Eyes: Negative for injury, sp4 pain, redness, and discharge, ENT: Negative for injury, pain, and discharge, Neck: Negative for injury, pain, and swelling, Cardiovascular: Negative for chest pain, palpitations, and edema, Respiratory: Negative for shortness of breath, cough, wheezing, and pleuritic chest pain, Abdomen/GI: Negative and constipation, positive for nausea vomiting and diarrhea Back: Negative for injury and pain, : Negative for injury, bleeding, discharge, and swelling, MS/Extremity: Negative for injury and deformity, Skin: Negative for injury, rash, and discoloration, Neuro: Negative for headache, weakness, numbness, tingling, and seizure, Psych: Negative for depression, anxiety, Allergy/Immunology: Negative for hives, rash, and allergies Endocrine: Negative for neck swelling, polydipsia, polyuria, polyphagia, and weight changes Hematologic/Lymphatic: Negative for swollen nodes, abnormal bleeding, and unusual bruising Exam: 06:38 Constitutional: This is a well developed, well nourished patient who is awake, alert, sp4 and in no acute distress. Head/Face: Normocephalic, atraumatic. Eyes: Pupils equal round and reactive to light, extra-ocular motions intact. Lids and lashes normal. Conjunctiva and sclera are not injected. Cornea within normal limits. Periorbital areas with no swelling, redness, or edema. ENT: Nares patent. No nasal discharge, no septal abnormalities noted. Tympanic membranes are normal and external auditory canals are clear. Oropharynx with no redness, swelling, or masses, exudates, or evidence of obstruction, uvula midline. Mucous membranes moist. Neck: Trachea midline, no thyromegaly or masses palpated, and no cervical lymphadenopathy. Supple, full range of motion without nuchal rigidity, or vertebral point tenderness. Chest/axilla: Normal chest wall appearance and motion. Nontender with no deformity. No lesions are appreciated. Cardiovascular: Regular rate and rhythm with a normal S1 and S2. No gallops, murmurs, or rubs. Normal PMI, no JVD. No pulse deficits. Respiratory: Lungs have equal breath sounds bilaterally, clear to auscultation and percussion. No rales, rhonchi or wheezes noted. No increased work of breathing, no retractions or nasal flaring. Abdomen/GI: Soft, non-tender, with normal bowel sounds. No distension or tympany. No guarding or rebound. No evidence of tenderness throughout. Back: No spinal tenderness. No costovertebral tenderness. Pelvic Exam: Normal external genitalia. Speculum exam with closed cervical os, no discharge or bleeding noted. Bimanual exam with normal adnexa, no adnexal or cervical motion tenderness. Normal uterus. Skin: Warm, dry with normal turgor. Normal color with no rashes, no lesions, and no evidence of cellulitis. MS/ Extremity: Pulses equal, no cyanosis. Neurovascular intact. Full, normal range of motion. Neuro: Awake and alert, GCS 15, oriented to person, place, time, and situation. Cranial nerves II-XII grossly intact. Motor strength 5/5 in all extremities. Sensory grossly intact. Psych: Awake, alert, with orientation to person, place and time. Behavior, mood, and affect are within normal limits Vital Signs: 03:01 BP 130 / 87; Pulse 100; Resp 18 S; Temp 98.1(TE); Pulse Ox 99% on R/A; Weight 73.48 kg as6 (R); Height 5 ft. 2 in. (R); Pain 8/10; 04:00 BP 111 / 76; Pulse 98; Resp 19 S; Pulse Ox 99% on R/A; ha1 05:00 BP 109 / 69; Pulse 86; Resp 16; Pulse Ox 100% on R/A; ha1 06:03 BP 102 / 59; Pulse 82; Resp 16; Pulse Ox 100% on R/A; jb4 07:06 BP 106 / 80; Pulse 87; Resp 16; Pulse Ox 100% ; jb4 03:01 Body Mass Index 29.63 (73.48 kg, 157.48 cm) as6 03:01 Pain Scale: Adult as6 MDM: 02:54 Patient medically screened. sp4 06:32 ED course: CT COMPARISON: Abdominal/pelvic CT, 01/22/2023 FINDINGS: Lower chest: The sp4 lower lung parenchyma appears unremarkable. There is no infiltrate, effusion or pneumothorax. The visualized cardiac and posterior mediastinal structures are unremarkable. ABDOMEN: Organs: The liver appears unremarkable. There is no evidence for mass or intrahepatic biliary ductal dilatation. The gallbladder has been surgically removed. The pancreas, adrenal glands and spleen appear unremarkable. Kidneys: The kidneys appear unremarkable. There is no evidence for hydronephrosis or stone. The ureters are normal along their entire course. Bowel: The large and small bowel of the abdomen and pelvis appears unremarkable. There is no evidence for bowel obstruction. The appendix is seen adjacent to the cecum and appears normal. PELVIS: The urinary bladder appears unremarkable. No intrapelvic free fluid or free air identified. No lymphadenopathy seen. There is an IUD in appropriate position. The uterus and adenexal structures are otherwise unremarkable. Bones and soft tissues: No acute osseous abnormalities are identified. The soft tissues are unremarkable. IMPRESSION: No evidence of obstructive uropathy or other acute process in the abdomen/pelvis. The patient's IUD appears in satisfactory position. Normal appendix. Status post cholecystectomy. Electronically signed by: Michael Katz MD 05/10/2023 5:42. 06:38 Differential diagnosis: gastritis, pancreatitis, diverticulitis, viral gastroenteritis, sp4 gastroenteritis. Data reviewed: vital signs, nurses notes, old medical records, lab test result(s), radiologic studies, CT scan. ED course: Patient's CAT scan revealed no evidence of obstructive uropathy, no acute process in abdomen or pelvis, IUD in place, normal appendix, status postcholecystectomy.. Labs revealed acute UTI.. ED course: Patient will be managed with p.o. Keflex, Pyridium, ondansetron for nausea, Lomotil for diarrhea.. 05/10 02:54 Order name: CBC with Diff; Complete Time: 06:29 sp4 05/10 02:54 Order name: CMP; Complete Time: 06:29 sp4 05/10 02:54 Order name: Lipase; Complete Time: 06:29 sp4 05/10 02:54 Order name: Test, Urine; Complete Time: 06:29 sp4 05/10 02:54 Order name: Urinalysis w/ reflexes; Complete Time: 06:29 sp4 05/10 04:24 Order name: Urine Culture [facility] 05/10 04:24 Order name: Abdomen [facility] 05/10 02:54 Order name: IV Saline Lock; Complete Time: 03:41 sp4 05/10 02:54 Order name: Labs collected and sent; Complete Time: 03:42 sp4 Administered Medications: 03:56 Drug: Ondansetron IVP 4 mg Route: IVP; Site: left forearm; kl 04:30 Follow up: Response: No adverse reaction; Nausea is decreased ha1 04:19 Drug: Acetaminophen PO 1000 mg Route: PO; kl 05:00 Follow up: Response: No adverse reaction; Pain is unchanged, physician notified ha1 04:19 Drug: Dicyclomine PO 20 mg Route: PO; kl 05:00 Follow up: Response: No adverse reaction ha1 04:19 Not Given (Patient Refused): Diphenoxylate-Atropine PO 2 tabs PO once kl 04:19 Drug: NS 0.9% IV 1000 ml Route: IV; Rate: 1 bolus; Site: left forearm; kl 06:42 Drug: Cephalexin PO 500 mg Route: PO; jb4 06:42 Drug: Phenazopyridine PO 200 mg Route: PO; jb4 06:42 Drug: Promethazine PO 25 mg Route: PO; jb4 Disposition Summary: 05/10/23 06:56 Discharge Ordered Location: Home sp4 Problem: new sp4 Symptoms: have improved sp4 Condition: Stable sp4 Diagnosis - UTI/ Urinary tract infection, site not specified sp4 - Acute cystitis sp4 Followup: sp4 - With: Private Physician - When: 7 - 10 days - Reason: Recheck today's complaints Discharge Instructions: - Discharge Summary Sheet sp4 - Urinary Tract Infection, Adult, [id number] sp4 Prescriptions: - Cephalexin 500 mg Oral Capsule - take 1 capsule by ORAL route every 12 hours for 10 days; 20 capsule; Refills: sp4 0, Product Selection Permitted - Pyridium 200 mg Oral Tablet - take 1 tablet by ORAL route every 8 hours for 3 days; 9 tablet; Refills: 0, sp4 Product Selection Permitted - Zofran 4 mg Oral Tablet - take 1 tablet by ORAL route every 6 hours As needed PRN nausea; 20 tablet; sp4 Refills: 0, Product Selection Permitted - Lomotil 2.5-0.025 mg Oral Tablet - take 1 tablet by ORAL route every 6 hours As needed; 20 tablet; Refills: 0, sp4 Product Selection Permitted Signatures: Dispatcher [employer] EDMilla Titus RN Alejandro Hanks RN RN jb4 Elver Ceja RN RN as6 Jordan Archer MD MD sp4 [place] Restrepo RN ha1 Corrections: (The following items were deleted from the chart) 04:24 04:04 Abdomen Pelvis W [id number] ordered. EDMS EDMS
--- NOTE | 2023-05-10 06:57 | ER ---
Nurse's Notes [facility] Name: Ara Mercado Age: 38 yrs Sex: Female : 1985 Arrival Date: 05/10/2023 Time: 02:36 Bed 8 Private MD: Diagnosis: UTI/ Urinary tract infection, site not specified;Acute cystitis Presentation: 05/10 03:01 Chief complaint: Patient states: n/v/ abdominal pain that started Friday but has gotten as6 worse today. Coronavirus screen: At this time, the client does not indicate any symptoms associated with coronavirus-19. Ebola Screen: No symptoms or risks identified at this time. Initial Sepsis Screen: Does the patient meet any 2 criteria? No. Patient's initial sepsis screen is negative. Does the patient have a suspected source of infection? No. Patient's initial sepsis screen is negative. Risk Assessment: Do you want to hurt yourself or someone else? Patient reports no desire to harm self or others. Onset of symptoms was May 10, 2023. 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 - Social history:: Smoking status: Patient reports the use of cigarette tobacco products, smokes one-half pack cigarettes per day. - Family history:: not pertinent. Screenin:41 [facility] ED Fall Risk Assessment (Adult) History of falling in the last 3 months, kl including since admission No falls in past 3 months (0 pts) Confusion or Disorientation No (0 pts) Intoxicated or Sedated No (0 pts) Impaired Gait No (0 pts) Mobility Assist Device Used No (0 pt) Altered Elimination No (0 pt) Score/Fall Risk Level 0 - 2 = Low Risk Oriented to surroundings, Maintained a safe environment. Abuse screen: Denies threats or abuse. Nutritional screening: No deficits noted. Tuberculosis screening: No symptoms or risk factors identified. Assessment: 03:40 Pain: Complains of pain in abdomen Pain currently is 10 out of 10 on a pain scale. GI: kl Abdomen is non-distended, Abd is soft Abdomen is tender to palpation X 4 quads. Reports intolerance of fluids, intolerance of food, nausea. 04:40 Reassessment: Patient and/or family updated on plan of care and expected duration. Pain ha1 level reassessed. Patient is alert, oriented x 3, equal unlabored respirations, skin warm/dry/pink. 05:32 Reassessment: Patient and/or family updated on plan of care and expected duration. Pain ha1 level reassessed. Patient is alert, oriented x 3, equal unlabored respirations, skin warm/dry/pink. 06:03 Reassessment: Patient appears in no apparent distress at this time. Patient and/or jb4 family updated on plan of care and expected duration. Pain level reassessed. Patient is alert, oriented x 3, equal unlabored respirations, skin warm/dry/pink. 07:05 Reassessment: Patient appears in no apparent distress at this time. Patient and/or jb4 family updated on plan of care and expected duration. Pain level reassessed. Patient is alert, oriented x 3, equal unlabored respirations, skin warm/dry/pink. Vital Signs: 03:01 BP 130 / 87; Pulse 100; Resp 18 S; Temp 98.1(TE); Pulse Ox 99% on R/A; Weight 73.48 kg as6 (R); Height 5 ft. 2 in. (R); Pain 8/10; 04:00 BP 111 / 76; Pulse 98; Resp 19 S; Pulse Ox 99% on R/A; ha1 05:00 BP 109 / 69; Pulse 86; Resp 16; Pulse Ox 100% on R/A; ha1 06:03 BP 102 / 59; Pulse 82; Resp 16; Pulse Ox 100% on R/A; jb4 07:06 BP 106 / 80; Pulse 87; Resp 16; Pulse Ox 100% ; jb4 03:01 Body Mass Index 29.63 (73.48 kg, 157.48 cm) as6 03:01 Pain Scale: Adult as6 ED Course: 02:39 Patient arrived in ED. ag3 02:53 Jordan Archer MD is Attending Physician. sp4 03:03 Triage completed. as6 03:04 Arm band placed on. as6 03:40 Inserted saline lock: 22 gauge in left forearm, using aseptic technique. Blood kl collected. Missed attempt(s): 24 gauge in left upper arm. 03:42 CBC with Diff Sent. kl 03:42 CMP Sent. kl 03:42 Lipase Sent. kl 04:04 Test, Urine Sent. kl 04:04 Urinalysis w/ reflexes Sent. kl 04:32 Abdomen In Process Unspecified. EDMS 07:05 Patient has correct armband on for positive identification. Bed in low position. Call jb4 light in reach. Side rails up X 1. 07:05 No provider procedures requiring assistance completed. IV discontinued, intact, jb4 bleeding controlled, No redness/swelling at site. Pressure dressing applied. Administered Medications: 03:56 Drug: Ondansetron IVP 4 mg Route: IVP; Site: left forearm; kl 04:30 Follow up: Response: No adverse reaction; Nausea is decreased ha1 04:19 Drug: Acetaminophen PO 1000 mg Route: PO; kl 05:00 Follow up: Response: No adverse reaction; Pain is unchanged, physician notified ha1 04:19 Drug: Dicyclomine PO 20 mg Route: PO; kl 05:00 Follow up: Response: No adverse reaction ha1 04:19 Not Given (Patient Refused): Diphenoxylate-Atropine PO 2 tabs PO once kl 04:19 Drug: NS 0.9% IV 1000 ml Route: IV; Rate: 1 bolus; Site: left forearm; kl 06:42 Drug: Cephalexin PO 500 mg Route: PO; jb4 06:42 Drug: Phenazopyridine PO 200 mg Route: PO; jb4 06:42 Drug: Promethazine PO 25 mg Route: PO; jb4 Medication: 07:05 VIS not applicable for this client. jb4 Outcome: 06:56 Discharge ordered by . sp4 07:05 Discharged to home ambulatory. jb4 07:05 Condition: stable 07:05 Discharge instructions given to patient, Instructed on discharge instructions, follow up and referral plans. medication usage, Demonstrated understanding of instructions, follow-up care, medications, Prescriptions given X 4. 07:06 Patient left the ED. jb4 Addendum: 05/13/2023 10:23 Addendum: Culture Results: Positive urine culture. No further action required. Other: a a5 No follow-up needed per ALLISON Enriquez. Bacteria is resistant to, has intermediate sensitivity, or is not tested against prescribed antibiotics. Report given to NAZ for further evaluation and then to tool marker for follow up with patient. Signatures: Dispatcher [employer] EDMS Milla Cooper, RN RN Amelia Pina RN RN aa5 Alejandro Dhillon RN RN jb4 Sandee Jacome3 Elver Ceja RN RN as6 [place] Restrepo RN RN ha1 Jordan Archer MD MD sp4
[2023-05-10 07:30] VITALS: TEMP 98.1
[2023-05-10 07:33] VITALS: O2SAT 100
[2023-05-10 07:35] VITALS: BP 106/80
--- NOTE | 2023-05-11 17:54 | RAD REPORT ---
EXAM DESCRIPTION: CT scan of the abdomen and pelvis without contrast CLINICAL HISTORY: ABD PAIN, VOMITING [facility] MAIN TECHNIQUE: Helical CT examination of the abdomen and pelvis was performed from the top of the domes of the diaphragm to the pubic symphysis without the administration of intravenous or oral contrast as per renal stone protocol. Sagittal and coronal reconstructions were performed for review. This exa m was performed according to our departmental dose-optimization program, which includes automated exp osure control, adjustment of the mA and/or kV according to patient size and/or use of iterative recon struction technique. COMPARISON: Abdominal/pelvic CT, 01/22/2023 FINDINGS: Lower chest: The lower lung parenchyma appears unremarkable. There is no infiltrate, e ffusion or pneumothorax. The visualized cardiac and posterior mediastinal structures are unremarkable . ABDOMEN: Organs: The liver appears unremarkable. There is no evidence for mass or intrahepatic biliary ducta l dilatation. The gallbladder has been surgically removed. The pancreas, adrenal glands and spl een appear unremarkable. Kidneys: The kidneys appear unremarkable. There is no evidence for hydronephrosis or stone. The ure ters are normal along their entire course. Bowel: The large and small bowel of the abdomen and pelvis appears unremarkable. There is no eviden ce for bowel obstruction. The appendix is seen adjacent to the cecum and appears normal. PELVIS: The urinary bladder appears unremarkable. No intrapelvic free fluid or free air identified. No lympha denopathy seen. There is an IUD in appropriate position. The uterus and adenexal structures are o therwise unremarkable. Bones and soft tissues: No acute osseous abnormalities are identified. The soft tissues are unremar kable. IMPRESSION: No evidence of obstructive uropathy or other acute process in the abdomen/pelvis. The patient's IUD appears in satisfactory position. Normal appendix. Status post cholecystectomy. Electronically signed by: Michael Katz MD 05/10/2023 5:42 AM CDT Due to temporary technical issues with the PACS/Fluency reporting system, reports are being signed by the in house radiologists without review as a courtesy to insure prompt reporting. The interpreting radiologist is fully responsible for the content of the report.
== END 2023-05-10 07:06 | disposition home or self-care (01) ==
LOC: ER 02:36
DX: N39.0 Urinary tract infection, site not specified (principal)
CPT/HCPCS: 36415; 74176; 80053; 81001; 81025; 83690; 85025; 87077; 87086; 87088; 87186; 96374; 99284; J2405; J7030; Q0169

== ENCOUNTER 2023-05-20 04:17 | Observation (INO) | payer SELFPAY ==
[2023-05-20] MEDS ORDERED: KETOROLAC 30 MG/ML INJ ONE (04:47)
[2023-05-20 06:04] LABS: Absolute Lymphocytes (CBC) 2.4 K/uL (0.7-4.9); Hematocrit 34.7 % (36.0-45.0); Lymphocytes % 16.4 % (15.3-44.8); MCV 93.5 fL (80-100); MPV 7.5 fL (7.6-11.3); RBC Red Blood Cell Count 3.71 M/uL (3.86-4.86)
[2023-05-20 06:18] LABS: Albumin 2.9 g/dL (3.4-5.0); Bilirubin Total 0.2 mg/dL (0.2-1.0); Potassium 3.2 mEq/L (3.5-5.1); Protein, Total 6.6 g/dL (6.4-8.2); Troponin High Sensitivity 3.3 pg/mL (<58.9)
--- NOTE | 2023-05-20 06:23 | ER ---
Nurse's Notes [facility] Name: Ara Mercado Age: 38 yrs Sex: Female : 1985 Arrival Date: 05/20/2023 Time: 04:17 Bed 16 Private MD: Diagnosis: Pain in right arm;Acute embolism and thrombosis of deep veins of right upper extremity;long term (current) use of anticoagulants-Eliquis;Elevated white blood cell count;Hypokalemia Presentation: 05/20 04:23 Chief complaint: Patient states: I have a terrible pain on my right arm. The pain ha1 radiates to my neck. I have had it for the past three days. 04:23 Coronavirus screen: Vaccine status: Patient reports being unvaccinated. Ebola Screen: ha1 No symptoms or risks identified at this time. Initial Sepsis Screen: Does the patient meet any 2 criteria? No. Patient's initial sepsis screen is negative. Does the patient have a suspected source of infection? No. Patient's initial sepsis screen is negative. Risk Assessment: Do you want to hurt yourself or someone else? Patient reports no desire to harm self or others. Onset of symptoms was May 17, 2023. 04:23 Method Of Arrival: Ambulatory ha1 04:23 Acuity: CHARISSA 3 ha1 Triage Assessment: 04:23 General: Appears uncomfortable, Behavior is calm, cooperative. Pain: Complains of pain ha1 in right arm Pain radiates to neck Pain currently is 9 out of 10 on a pain scale. Neuro: Level of Consciousness is awake, alert, obeys commands, Oriented to person, place, time, situation. Cardiovascular: Patient's skin is warm and dry. Respiratory: Airway is patent Respiratory effort is even, unlabored, Respiratory pattern is regular, symmetrical. GI: No signs and/or symptoms were reported involving the gastrointestinal system. Derm: Skin is pink, warm \T\ dry. Musculoskeletal: Circulation, motion, and sensation intact. Reports pain in right arm. Historical: - Allergies: 04:33 Amoxicillin; ha1 04:33 Bactrim; ha1 04:33 Flagyl; ha1 04:33 Morphine; ha1 04:33 Toradol; ha1 04:33 Tramadol HCl; ha1 - Home Meds: 04:33 Eliquis oral [Active]; gabapentin Oral [Active]; ha1 - PMHx: 04:33 diabetes mellitus; DVT; Hypercholesterolemia; Hypertensive disorder; Hypothyroidism; ha1 NSTEMI; - Immunization history:: Adult Immunizations unknown. - Social history:: Smoking status: unknown. - Family history:: not pertinent. Screenin:23 [facility] ED Fall Risk Assessment (Adult) History of falling in the last 3 months, ha1 including since admission No falls in past 3 months (0 pts) Confusion or Disorientation No (0 pts) Intoxicated or Sedated No (0 pts) Impaired Gait No (0 pts) Mobility Assist Device Used No (0 pt) Altered Elimination No (0 pt) Score/Fall Risk Level 0 - 2 = Low Risk. Abuse screen: Denies threats or abuse. Denies injuries from another. Nutritional screening: No deficits noted. Tuberculosis screening: No symptoms or risk factors identified. Assessment: 05:05 Reassessment: notified charge nurse of unsuccessful IV insertion. 1 05:58 Reassessment: Patient and/or family updated on plan of care and expected duration. Pain ha1 level reassessed. Patient is alert, oriented x 3, equal unlabored respirations, skin warm/dry/pink. Patient states feeling better. Patient states symptoms have improved. 06:45 Reassessment: Patient and/or family updated on plan of care and expected duration. Pain ha1 level reassessed. Patient is alert, oriented x 3, equal unlabored respirations, skin warm/dry/pink. pain 9/10. 07:23 Reassessment: attempted to give report. 1 Vital Signs: 04:23 BP 125 / 74; Pulse 100; Resp 20; Temp 97.9; Pulse Ox 100% ; Weight 65.77 kg; Height 5 ha1 ft. 4 in. ; 05:58 BP 124 / 78; Pulse 91; Resp 19 S; Pulse Ox 100% on R/A; ha1 06:45 BP 127 / 83; Pulse 91; Resp 18 S; Pulse Ox 100% on R/A; ha1 04:23 Body Mass Index 24.89 (65.77 kg, 162.56 cm) 1 NIH Stroke Scale Scores: 04:32 NIHSS Score: 0 [facility] ED Course: 04:19 Patient arrived in ED. ja2 04:25 Rashad Melgoza MD is Attending Physician. [facility] 04:28 Restrepo, [place], RN is Primary Nurse. ha1 04:33 Triage completed. ha1 04:50 Missed attempt(s): 20 gauge in left forearm. ha1 05:00 Missed attempt(s): 22 gauge in left antecubital area. ha1 05:52 PT-INR Sent. kd3 05:52 Comprehensive Metabolic Panel Sent. kd3 05:52 CBC with Diff Sent. kd3 06:14 UPPER EXTREMITY VENOUS UNILATE In Process Unspecified. EDMS 06:25 CT C Spine In Process Unspecified. EDMS 06:28 Initial Contact for transfer to [facility] . spoke with Ashley Fitzgeraldson. Stated that 1 it may be a long wait due to all the facilities being over capacitated and shift change. 06:37 Initial contact for transfer to [facility]. Didnt get the name of whom I spoke with. But ah1 she stated that they are also over capacitated and it may take a while. 06:[address] [facility]. stated that [facility] and [facility] are have no availability ah and that the [facility] is the only one she can try to get the patient in. 07:00 Miguel Choi MD is Hospitalizing Provider. [facility] 07:57 No provider procedures requiring assistance completed. ld1 07:57 Patient admitted, IV remains in place. ld1 07:58 Patient has correct armband on for positive identification. Placed in gown. Bed in low ld1 position. Call light in reach. Side rails up X2. business librarian on. Pulse ox on. NIBP on. Door closed. Noise minimized. Warm blanket given. 07:58 Arm band placed on right wrist. ld1 Administered Medications: 05:05 Drug: Ketorolac IVP 30 mg Route: IVP; Site: left forearm; ha1 06:45 Drug: Ondansetron IVP 4 mg Route: IVP; Site: left forearm; ha1 06:47 Drug: HYDROmorphone IVP 0.5 mg Route: IVP; Site: left forearm; ha1 06:50 Drug: NS 0.9% IV 500 ml Route: IV; Rate: bolus; Site: left forearm; ha1 06:50 Drug: NS 0.9% IV 1000 ml Route: IV; Rate: 125 ml/hr; Site: left forearm; ha1 06:50 Drug: Eliquis PO 5 mg Route: PO; ha1 06:50 Drug: Potassium PO Effervescent Tablet 25 mEq Route: PO; ha1 Medication: 07:58 VIS not applicable for this client. ld1 Outcome: 06:22 ER care complete, transfer ordered by . [facility] 07:01 Decision to Hospitalize by Provider. [facility] 07:57 Admitted to Med/surg accompanied by tech, via wheelchair, room 426, with chart, Report ld1 called to VÍCTOR Carson 07:57 Condition: stable 07:57 Instructed on the need for admit. 08:00 Patient left the ED. ld1 NIH Stroke Scale - NIH Stroke Score Date: 05/20/2023 Time: 04:32 Total Score = 0 10. Dysarthria (speech clarity - read or repeat words) - 0(Normal) 11. Extinction and Inattention (visual/tactile/auditory/spatial/personal) - 0(No abnormality) 1a. Level of Consciousness (LOC) - 0(Alert) 1b. Level of Consciousness (LOC) (Month \T\ Age) - 0(Both) 1c. LOC Commands (Open \T\ Closes Eyes/[place] Scarfer Tender) - 0(Both) 2. Best Gaze (Lateral Gaze Paresis) - 0(Normal) 3. Visual Field Loss - 0(No visual loss) 4. Facial Palsy - 0(Normal) 5a. Left Arm: Motor (10-second hold) - 0(No drift) 5b. Right Arm: Motor (10-second hold) - 0(No drift) 6a. Left Leg: Motor (5-second hold - always test supine) - 0(No drift) 6b. Right Leg: Motor (5-second hold - always test supine) - 0(No drift) 7. Limb Ataxia (finger/nose \T\ heel/serrano - test with eyes open) - 0(Absent) 8. Sensory Loss (pinprick arms/legs/face) - 0(Normal) 9. Best Language: Aphasia (description/naming/reading) - 0(No aphasia) Initials: [facility] Signatures: Dispatcher [employer] EDRashad Hutchison MD MD cha Sims, Lauren, RN RN ld1 Shasha Taylor2 Jamilah Forde RN RN kd3 [place] Restrepo RN RN ha1 Orlando Mercado ah1 Corrections: (The following items were deleted from the chart) 07:57 07:57 PSHx: Cholecystectomy; ld1 ld1
--- NOTE | 2023-05-20 06:23 | EDPHYS ---
Physician Documentation [facility] Name: Ara Mercado Age: 38 yrs Sex: Female : 1985 Arrival Date: 05/20/2023 Time: 04:17 Bed 16 Private MD: ZACHARY Physician Rashad Melgoza HPI: 05/20 04:31 This 38 yrs old Female presents to ER via Unassigned with complaints of Arm bobbi Pain. 04:31 The patient or guardian complains of decreased range of motion, pain. The complaints bobbi affect the right bicep, dorsal aspect of right forearm, right tricep and palmar aspect of right forearm. Context: The problem was sustained at an unknown location. Onset: The symptoms/episode began/occurred 2 day(s) ago. Treatment prior to arrival includes: no previous treatment. Modifying factors: The symptoms are alleviated by remaining still, the symptoms are aggravated by movement, lifting weight, bending arm. Associated signs and symptoms: The patient has no apparent associated signs or symptoms. Severity of symptoms: At their worst the symptoms were moderate, in the emergency department the symptoms are unchanged. The patient has not experienced similar symptoms in the past. Historical: - Allergies: 04:33 Amoxicillin; ha1 04:33 Bactrim; ha1 04:33 Flagyl; ha1 04:33 Morphine; ha1 04:33 Toradol; ha1 04:33 Tramadol HCl; ha1 - Home Meds: 04:33 Eliquis oral [Active]; gabapentin Oral [Active]; ha1 - PMHx: 04:33 diabetes mellitus; DVT; Hypercholesterolemia; Hypertensive disorder; Hypothyroidism; ha1 NSTEMI; - Immunization history:: Adult Immunizations unknown. - Social history:: Smoking status: unknown. - Family history:: not pertinent. ROS: 04:32 Constitutional: Negative for fever, chills, and weight loss, Eyes: Negative for injury, bobbi pain, redness, and discharge, ENT: Negative for injury, pain, and discharge, Neck: Negative for injury, pain, and swelling, Cardiovascular: Negative for chest pain, palpitations, and edema, Respiratory: Negative for shortness of breath, cough, wheezing, and pleuritic chest pain, Abdomen/GI: Negative for abdominal pain, nausea, vomiting, diarrhea, and constipation, Back: Negative for injury and pain, : Negative for injury, bleeding, discharge, and swelling, Skin: Negative for injury, rash, and discoloration, Neuro: Negative for headache, weakness, numbness, tingling, and seizure, Psych: Negative for depression, anxiety, suicide ideation, homicidal ideation, and hallucinations, Allergy/Immunology: Negative for hives, rash, and allergies, Endocrine: Negative for neck swelling, polydipsia, polyuria, polyphagia, and marked weight changes, Hematologic/Lymphatic: Negative for swollen nodes, abnormal bleeding, and unusual bruising. 04:32 MS/extremity: Positive for decreased range of motion, pain, tenderness, of the right arm. Exam: 04:32 Constitutional: This is a well developed, well nourished patient who is awake, alert, bobbi and in no acute distress. Head/Face: Normocephalic, atraumatic. Eyes: Pupils equal round and reactive to light, extra-ocular motions intact. Lids and lashes normal. Conjunctiva and sclera are non-icteric and not injected. Cornea within normal limits. Periorbital areas with no swelling, redness, or edema. ENT: Nares patent. No nasal discharge, no septal abnormalities noted. Tympanic membranes are normal and external auditory canals are clear. Oropharynx with no redness, swelling, or masses, exudates, or evidence of obstruction, uvula midline. Mucous membranes moist. Neck: Trachea midline, no thyromegaly or masses palpated, and no cervical lymphadenopathy. Supple, full range of motion without nuchal rigidity, or vertebral point tenderness. No Meningismus. Chest/axilla: Normal chest wall appearance and motion. Nontender with no deformity. No lesions are appreciated. Cardiovascular: Regular rate and rhythm with a normal S1 and S2. No gallops, murmurs, or rubs. Normal PMI, no JVD. No pulse deficits. Respiratory: Lungs have equal breath sounds bilaterally, clear to auscultation and percussion. No rales, rhonchi or wheezes noted. No increased work of breathing, no retractions or nasal flaring. Abdomen/GI: Soft, non-tender, with normal bowel sounds. No distension or tympany. No guarding or rebound. No evidence of tenderness throughout. Back: No spinal tenderness. No costovertebral tenderness. Full range of motion. Female : Normal external genitalia. Skin: Warm, dry with normal turgor. Normal color with no rashes, no lesions, and no evidence of cellulitis. Neuro: Awake and alert, GCS 15, oriented to person, place, time, and situation. Cranial nerves II-XII grossly intact. Motor strength 5/5 in all extremities. Sensory grossly intact. Cerebellar exam normal. Normal gait. Psych: Awake, alert, with orientation to person, place and time. Behavior, mood, and affect are within normal limits. 04:32 Musculoskeletal/extremity: ROM: limited active range of motion due to pain, limited passive range of motion due to pain, in the right arm, Circulation is intact in all extremities. Sensation intact. Compartment Syndrome exam of affected extremity: is normal. no numbness, no tingling, no sensation deficit, no palor, no weak pulses, Joints: Weight bearing: able to fully bear weight, without difficulty, DVT Exam: negative Homans' sign noted on exam, no appreciated bluish discoloration, no erythema, no increased warmth, pain, swelling, tenderness. 05:59 ECG was reviewed by the Attending Physician. [facility] Vital Signs: 04:23 BP 125 / 74; Pulse 100; Resp 20; Temp 97.9; Pulse Ox 100% ; Weight 65.77 kg; Height 5 ha1 ft. 4 in. ; 05:58 BP 124 / 78; Pulse 91; Resp 19 S; Pulse Ox 100% on R/A; ha1 06:45 BP 127 / 83; Pulse 91; Resp 18 S; Pulse Ox 100% on R/A; ha1 04:23 Body Mass Index 24.89 (65.77 kg, 162.56 cm) 1 NIH Stroke Scale Scores: 04:32 NIHSS Score: 0 [facility] MDM: 04:25 Patient medically screened. [facility] 06:00 Data reviewed: vital signs, nurses notes, lab test result(s), EKG, radiologic studies, [facility] ultrasound. 05/20 04:31 Order name: CBC with Diff; Complete Time: 06:22 [facility] 05/20 04:31 Order name: Comprehensive Metabolic Panel; Complete Time: 06:22 [facility] 05/20 04:31 Order name: PT-INR; Complete Time: 07:01 [facility] 05/20 04:31 Order name: Troponin High Sensitivity; Complete Time: 06:22 [facility] 05/20 04:31 Order name: CT C Spine [facility] 05/20 04:36 Order name: UPPER EXTREMITY VENOUS UNILATE [facility] 05/20 04:31 Order name: EKG; Complete Time: 04:31 [facility] 05/20 07:07 Order name: CONS Physician Consult [facility] 05/20 04:31 Order name: EKG - Nurse/Tech; Complete Time: 05:31 [facility] 05/20 04:31 Order name: Momo; Complete Time: 05:31 [facility] EC:59 Rate is 98 beats/min. Rhythm is regular. QRS [place] is Normal. [place] interval is normal. QRS bobbi interval is normal. QT interval is normal. No Q waves. T waves are Normal. No ST changes noted. Clinical impression: NSR w/ Non-specific ST/T Changes and No evidence of ischemia. Interpreted by me. Reviewed by me. Administered Medications: 05:05 Drug: Ketorolac IVP 30 mg Route: IVP; Site: left forearm; ha1 06:45 Drug: Ondansetron IVP 4 mg Route: IVP; Site: left forearm; ha1 06:47 Drug: HYDROmorphone IVP 0.5 mg Route: IVP; Site: left forearm; ha1 06:50 Drug: NS 0.9% IV 500 ml Route: IV; Rate: bolus; Site: left forearm; ha1 06:50 Drug: NS 0.9% IV 1000 ml Route: IV; Rate: 125 ml/hr; Site: left forearm; ha1 06:50 Drug: Eliquis PO 5 mg Route: PO; ha1 06:50 Drug: Potassium PO Effervescent Tablet 25 mEq Route: PO; ha1 Disposition Summary: 05/20/23 07:01 Hospitalization Ordered Hospitalization Status: Inpatient Admission bobbi Provider: Miguel Choi cha Location: Telemetry/MedSurg (observation) bobbi Condition: Fair(05/20/23 07:01) bobbi Problem: new(05/20/23 07:01) bobbi Symptoms: have improved(05/20/23 07:01) bobbi Bed/Room Type: Standard bobbi Room Assignment: 426(05/20/23 07:14) bd Diagnosis - Pain in right arm(05/20/23 07:01) bobbi - Acute embolism and thrombosis of deep veins of right upper extremity(05/20/23 07:01)bobbi - intermediate manager (current) use of anticoagulants - Eliquis bobbi - Elevated white blood cell count bobbi - Hypokalemia(05/20/23 07:02) bobbi Forms: - Medication Reconciliation Form bobbi - SBAR form bobbi NIH Stroke Scale - NIH Stroke Score Date: 05/20/2023 Time: 04:32 Total Score = 0 10. Dysarthria (speech clarity - read or repeat words) - 0(Normal) 11. Extinction and Inattention (visual/tactile/auditory/spatial/personal) - 0(No abnormality) 1a. Level of Consciousness (LOC) - 0(Alert) 1b. Level of Consciousness (LOC) (Month \T\ Age) - 0(Both) 1c. LOC Commands (Open \T\ Closes Eyes/Family Medicine Physician) - 0(Both) 2. Best Gaze (Lateral Gaze Paresis) - 0(Normal) 3. Visual Field Loss - 0(No visual loss) 4. Facial Palsy - 0(Normal) 5a. Left Arm: Motor (10-second hold) - 0(No drift) 5b. Right Arm: Motor (10-second hold) - 0(No drift) 6a. Left Leg: Motor (5-second hold - always test supine) - 0(No drift) 6b. Right Leg: Motor (5-second hold - always test supine) - 0(No drift) 7. Limb Ataxia (finger/nose \T\ heel/serrano - test with eyes open) - 0(Absent) 8. Sensory Loss (pinprick arms/legs/face) - 0(Normal) 9. Best Language: Aphasia (description/naming/reading) - 0(No aphasia) Initials: bobbi Signatures: Dispatcher [employer] EDMS Lynn Egan Corey, MD MD cha Sims, Lauren RN RN ld1 [place] Restrepo, VÍCTOR RN ha1 Corrections: (The following items were deleted from the chart) 04:36 04:31 Extremity Venous Uni Ltd+US.RAD.BRZ ordered. EDMS EDMS 06:23 06:22 to [facility] bobbi bobbi :59 06:22 [facility] bobbi bobbi :59 06:22 Higher level of care bobbi bobbi :59 06:22 Stable bobbi bobbi :59 06:22 new bobbi bobbi :59 06:22 are unchanged bobbi bobbi :59 06:22 Acute embolism and thrombosis of deep veins of right upper extremity [facility] 06:22 Pain in right arm [facility] 06:22 Pain in right forearm [facility] 06:23 to slh tele [facility] 06:23 Hypokalemia [facility] 07:14 07:01 [facility] 07:57 07:57 PSHx: Cholecystectomy; ld1 ld1
[2023-05-20] MEDS ORDERED: HYDROMORPHONE HCL 0.5 MG/0.5 ML INJ ONE (06:41)
[2023-05-20] MEDS ORDERED: NA CHLORIDE 0.9% 1,000 ML ONE (06:42)
[2023-05-20] MEDS ORDERED: APIXABAN 5 MG TABLET ONE (06:42)
[2023-05-20] MEDS ORDERED: POTASSIUM 25 MEQ EFFERV TAB ONE (06:42)
[2023-05-20] MEDS ORDERED: NA CHLORIDE 0.9% 500 ML ONE (06:42)
[2023-05-20 06:46] LABS: Protime INR 1.32
[2023-05-20] MEDS ORDERED: ONDANSETRON 4 MG/2 ML VIAL ONE (06:57)
--- NOTE | 2023-05-20 07:32 | RAD REPORT ---
EXAM DESCRIPTION: US - UPPER EXTREMITY VENOUS UNILATE - 05/20/2023 6:14 am CLINICAL HISTORY: PAIN Arm pain and swelling COMPARISON: Extremity Venous Uni Ltd dated 12/30/2022 FINDINGS: Right upper extremity venous system was interrogated with Doppler technique. Thrombus is p resent in the right brachial vein proximally. This likely represents thrombus. No additional areas of thrombus seen. IMPRESSION: Positive for proximal right brachials vein thrombus.
[2023-05-20] MEDS ORDERED: ACETAMINOPHEN 325 MG TABLET PO PRN (07:54)
[2023-05-20] MEDS: NA CHLORIDE 0.9% 1,000 ML IV SCH ×3 (08:53→23:23)
[2023-05-20] MEDS: FAMOTIDINE 20 MG/2 ML VIAL IV SCH ×2 (08:54→20:27)
[2023-05-20] MEDS: HYDROMORPHONE HCL 0.5 MG/0.5 ML INJ IV PRN ×2 (08:54→17:55)
[2023-05-20] MEDS: POTASSIUM 25 MEQ EFFERV TAB PO SCH ×3 (08:54→20:27)
[2023-05-20] MEDS: ASPIRIN EC 81 MG TAB PO SCH (08:54)
[2023-05-20] MEDS ORDERED: GABAPENTIN 300 MG CAP PO PRN (08:54)
[2023-05-20] MEDS: APIXABAN 5 MG TABLET PO SCH ×3 (08:55→20:27)
[2023-05-20] MEDS ORDERED: D50W 25 GM/50 ML SYRINGE IV PRN (08:56)
[2023-05-20] MEDS ORDERED: GLUCAGON 1 MG/VIAL IM PRN (08:56)
[2023-05-20] MEDS ORDERED: MORPHINE 4 MG/ML SYR IV PRN (08:58)
[2023-05-20] MEDS ORDERED: HOME MED 1 EA UNK (Glipizide [Glipizide Xl] 10 MG Tab.Er.24) PO SCH (09:00)
--- NOTE | 2023-05-20 09:04 | P.HP ---
Certification for Inpatient Patient admitted to: Observation With expected LOS: >2 Midnights Patient will require the following post-hospital care: None Practitioner: I am a practitioner with admitting privileges, knowledge of patient current condition, hospital course, and medical plan of care. Services: Services provided to patient in accordance with Admission requirements found in Title 42 Section 412.3 of the Code of Federal Regulations Patient History Date of Service: 05/20/23 Primary Care Provider: none Reason for admission: right upper extremity dvt History of Present Illness: Patient is a pleasant woman with a history of htn, dm2, ckd stage 3. She has had 2 blood clots in the past and is on eliquis. 3 days ago she started having pain in the right upper arm. It go worse and she came to the ER. Was found to have a right brachial vein thrombosis. The patient is on eliquis. has been recieving it through an assistance program. The patient has creatine of 1.4 Her baseline is about 1.3-1.4 So she is doing well from that regard. She is in pain from the blood clot Allergies amoxicillin Allergy (Verified 08/31/22 00:11) Anaphylaxis ketorolac [From Toradol] Allergy (Verified 09/07/21 05:10) Anaphylaxis metronidazole [From Flagyl] Allergy (Verified 09/07/21 05:10) Anaphylaxis morphine Allergy (Verified 09/07/21 05:10) Anaphylaxis sulfamethoxazole [From Bactrim] Allergy (Verified 09/07/21 05:10) Anaphylaxis tramadol Allergy (Verified 09/07/21 05:10) Anaphylaxis trimethoprim [From Bactrim] Allergy (Verified 09/07/21 05:10) Anaphylaxis Home Medications: Diphenhydramine HCl [Benadryl Allergy] 25 mg PO BEDTIME 06/18/22 Gabapentin 300 mg PO Q8HR PRN 06/18/22 Losartan Potassium 25 mg PO DAILY 06/18/22 Amitriptyline HCl 10 mg PO BEDTIME PRN 08/31/22 Aspirin [Aspirin EC 81 MG] 81 mg PO DAILY 08/31/22 Chlorthalidone 25 mg PO DAILY 08/31/22 Glipizide [Glipizide Xl] 10 mg PO DAILY 08/31/22 Levonorgestrel - Ethinyl Estradiol 0.1-20 Mg-Mcg 1 tab PO DAILY 10/08/22 Levothyroxine Sodium 25 mcg PO DAILY 08/31/22 Mecobalamin (B12 Active Oral) 1,000 mcg PO DAILY 08/31/22 Pantoprazole [Protonix Tab*] 40 mg PO DAILY 08/31/22 Promethazine/Dextromethorphan [Promethazine-Dm 6.25-15 mg/5Ml] 5 ml PO QID 08/31/22 methocarbamoL [Methocarbamol] 500 mg PO QID 08/31/22 Apixaban [Eliquis] 5 mg PO BID #74 tab 09/01/22 Hydrocodone 10/APAP 325 [[place] 10/325*] 1 tab PO Q6H PRN #30 tab 01/03/23 predniSONE [Deltasone] 20 mg PO BID #11 tab 01/03/23 - Past Medical/Surgical History Diabetic: Yes -: Type 2 Diabetes, Non-Insulin Dependent -: CAD/NSTEMI -: HTN -: Cholecystectomy -: Cardiac cath Psychosocial/ Personal History: Patient is . - Family History Father -: Heart disease - Social History Alcohol use: No CD- Drugs: No Caffeine use: Yes Review of Systems 10-point ROS is otherwise unremarkable Musculoskeletal: Arm Pain (right ) Physical Examination - Vital Signs Temperature: 97.9 F Blood Pressure: 127/83 Pulse: 91 Respirations: 18 - Physical Exam General: Alert, Mild distress HEENT: Atraumatic, PERRLA, Mucous membr. moist/pink, EOMI, Sclerae nonicteric Neck: Supple, 2+ carotid pulse no bruit, No LAD, Without JVD or thyroid abnormality Respiratory: Clear to auscultation bilaterally, Normal air movement Cardiovascular: Regular rate/rhythm, Normal S1 S2 Gastrointestinal: Normal bowel sounds, No tenderness Musculoskeletal: Tenderness (right upper extremity ) Integumentary: No rashes Neurological: Normal gait, Normal speech, Normal strength at 5/5 x4 extr, Normal tone, Normal affect Lymphatics: No axilla or inguinal lymphadenopathy - Studies Laboratory Data (last 24 hrs) 05/20/23 05:50: PT 14.5 H, INR 1.32 05/20/23 05:50: Sodium 136, Potassium 3.2 L, BUN 14, Creatinine 1.42 H, Glucose 192 H, Total Bilirubin 0.2, AST 18, ALT 13, Alkaline Phosphatase 114 06/27/23 05:50: WBC 14.50 H, Hgb 11.6 L, Hct 34.7 L, Plt Count 444 H Assessment and Plan - Problems (Diagnosis) (1) Deep vein thrombosis of right upper extremity Current Visit: Yes Status: Acute Plan: Patient will continue eliquis. Will start her on pain management. Will need an out patient work up with Hematology. However she is on the appropriate treatment Qualifiers: Affected thrombotic vein of extremity: brachial Chronicity: acute Qualified Code(s): I82.621 - Acute embolism and thrombosis of deep veins of right upper extremity (2) Hypertension Current Visit: No Status: Chronic Plan: continue chlorthalidone. Qualifiers: Hypertension type: primary hypertension (3) Type 2 diabetes mellitus Current Visit: No Status: Chronic Plan: will continue glipizide as she does not have insurance. Will start a sliding scale on the patient Qualifiers: Diabetes mellitus half-way insulin use: without ad terminal makeup operator use Diabetes mellitus complication status: without complication Qualified Code(s): E11.9 - Type 2 diabetes mellitus without complications (4) CKD (chronic kidney disease) stage 3, GFR 30-59 ml/min Current Visit: Yes Status: Acute Plan: gfr is at her baseline. Avoid nsaids and metformin Qualifiers: Chronic kidney disease stage 3 subtype: stage 3a (GFR 45-59) Qualified Code(s): N18.31 - Chronic kidney disease, stage 3a Discharge Plan: Home Plan to discharge in: 24 Hours - Advance Directives Does patient have a Living Will: No Does patient have a Durable POA for Healthcare: No - Code Status/Comfort Care Code Status Assessed: No Code Status: Full Code Physician Review: Patient Assessed, Agree with Above Assessment and Plan Critical Care: No Time Spent Managing Pts Care (In Minutes): 45
[2023-05-20 09:08] LABS: Potassium 3.5 mEq/L (3.5-5.1); Troponin High Sensitivity 3.2 pg/mL (<58.9)
[2023-05-20] MEDS ORDERED: D10W 125 ML IV PRN (09:09)
[2023-05-20] MEDS: ONDANSETRON 4 MG/2 ML VIAL IV PRN ×3 (09:28→23:23)
[2023-05-20] MEDS: CHLORTHALIDONE 25 MG TAB PO SCH (09:44)
[2023-05-20] MEDS: ACETAMINOPHEN 500 MG TAB PO SCH ×2 (09:44→17:01)
[2023-05-20] MEDS: INSULIN -REGULAR HUMAN 50 UNIT/0.5 ML ML SQ SCH ×3 (12:20→20:28)
--- NOTE | 2023-05-20 14:53 | RAD REPORT ---
EXAM DESCRIPTION: CT cervical spine without intravenous contrast CLINICAL HISTORY: 38 years Female PAIN TECHNIQUE: Multiple high-resolution thin axial CT images were performed through the cervical spine f ollowed by sagittal and coronal reconstructed images. The CT study is performed according to ALARA (a s low as reasonably achievable) or ALARA/IMAGE GENTLY, with automatic adjustment of mA and/or kV acco rding to patient size. Performed on: 05/20/2023 at 6:14 AM COMPARISON: None. FINDINGS: The cervical vertebrae are normal in height. There is normal alignment of the vertebrae. T here is no significant disc space narrowing throughout the cervical spine. Bone mineralization is nor mal. The atlanto-axial articulation is preserved and the odontoid process is intact. There is normal alignment of the facet joints on the parasagittal images. There are no significant de generative changes of the facet joints. There is no evidence of acute fracture or subluxation. There is no significant canal stenosis. There are small disc osteophyte complexes at C4-C5 and C5-C6. There is no significant neural foraminal stenosis. The prevertebral and paraspinal soft tissues are unremarkable. The lung apices are clear. IMPRESSION: 1. No evidence of acute osseous injury involving the cervical spine. 2. Small disc osteophyte complexes at C4-C5 and C5-C6. Electronically signed by: Annette Grimm DO 05/20/2023 6:50 AM CDT Due to temporary technical issues with the PACS/Fluency reporting system, reports are being signed by the in house radiologists without review as a courtesy to insure prompt reporting. The interpreting radiologist is fully responsible for the content of the report.
[2023-05-20] MEDS: HYDROCODONE/APAP 10/325 TAB PO PRN ×2 (14:59→21:14)
--- NOTE | 2023-05-20 20:36 | EKG ---
Test Date: 2023-05-20 Test Time: 04:44:38 Data Warehousing Specialist: MARISOL MEASUREMENT RESULTS: Intervals: Rate: 98 SC: 144 QRSD: 86 QT: 346 QTc: 441 [place]: P: 41 SC: 144 QRS: 86 T: 44 INTERPRETIVE STATEMENTS: Normal sinus rhythm Normal ECG Compared to ECG 01/22/2023 18:39:15 T-wave abnormality no longer present Electronically Signed On 05-20-23 20:32:49 CDT by Juan Ray
[2023-05-21] MEDS: ACETAMINOPHEN 500 MG TAB PO SCH ×3 (00:35→15:35)
[2023-05-21] MEDS: ONDANSETRON 4 MG/2 ML VIAL IV PRN ×2 (05:46→13:08)
[2023-05-21] MEDS: HYDROMORPHONE HCL 0.5 MG/0.5 ML INJ IV PRN ×2 (05:48)
[2023-05-21 06:24] LABS: Absolute Lymphocytes (CBC) 1.9 K/uL (0.7-4.9); Hematocrit 38.4 % (36.0-45.0); Lymphocytes % 15.9 % (15.3-44.8); MCV 94.7 fL (80-100); MPV 7.3 fL (7.6-11.3); RBC Red Blood Cell Count 4.05 M/uL (3.86-4.86)
[2023-05-21 06:39] LABS: Potassium 3.8 mEq/L (3.5-5.1)
[2023-05-21] MEDS: INSULIN -REGULAR HUMAN 50 UNIT/0.5 ML ML SQ SCH ×4 (07:30→19:33)
[2023-05-21] MEDS: NA CHLORIDE 0.9% 1,000 ML IV SCH ×3 (08:22→17:16)
[2023-05-21] MEDS: FAMOTIDINE 20 MG/2 ML VIAL IV SCH ×2 (08:23→19:32)
[2023-05-21] MEDS: CHLORTHALIDONE 25 MG TAB PO SCH (08:23)
[2023-05-21] MEDS: GLIPIZIDE S.A. 5 MG TAB PO SCH (08:24)
[2023-05-21] MEDS: POTASSIUM 25 MEQ EFFERV TAB PO SCH ×2 (08:24→19:33)
[2023-05-21] MEDS: ASPIRIN EC 81 MG TAB PO SCH (08:25)
[2023-05-21] MEDS: APIXABAN 5 MG TABLET PO SCH ×2 (08:25→19:33)
[2023-05-21 09:10] VITALS: BMI 30.4
--- NOTE | 2023-05-21 09:42 | P.PN ---
Subjective Date of Service: 05/21/23 Primary Care Provider: none Chief Complaint: right upper extremity dvt Subjective: New changes (nausea and vomitting this morning) patient was vomiting in the room this morning Review of Systems 10-point ROS is otherwise unremarkable Gastrointestinal: Nausea, Vomiting Physical Examination - Vital Signs Temperature: 96.8 F Blood Pressure: 124/80 Pulse: 92 Respirations: 16 Pulse Ox (%): 98 - Physical Exam General: Alert, In no apparent distress, Moderate distress HEENT: Atraumatic, PERRLA, EOMI Neck: Supple, JVD not distended Respiratory: Clear to auscultation bilaterally, Normal air movement Cardiovascular: Regular rate/rhythm, Normal S1 S2 Gastrointestinal: Normal bowel sounds, Tenderness Musculoskeletal: No tenderness Integumentary: No rashes Neurological: Normal speech, Normal tone, Normal affect Lymphatics: No axilla or inguinal lymphadenopathy Assessment And Plan - Current Problems (Diagnosis) (1) Nausea & vomiting Current Visit: Yes Status: Acute Plan: will keep her npo and continue fluids. check stool studies and order medications for nausea. Qualifiers: Vomiting type: unspecified Qualified Code(s): R11.2 - Nausea with vomiting, unspecified (2) Deep vein thrombosis of right upper extremity Current Visit: Yes Status: Acute Plan: Patient will continue eliquis. Will start her on pain management. Will need an out patient work up with Hematology. However she is on the appropriate treatment Qualifiers: Affected thrombotic vein of extremity: brachial Chronicity: acute Qualified Code(s): I82.621 - Acute embolism and thrombosis of deep veins of righ t upper extremity (3) Hypertension Current Visit: No Status: Chronic Plan: continue chlorthalidone. Qualifiers: Hypertension type: primary hypertension (4) Type 2 diabetes mellitus Current Visit: No Status: Chronic Plan: will continue glipizide as she does not have insurance. Will start a sliding scale on the patient 05/21 Actually well controlled. 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 Avoid nsaids and metformin 05/21 mild elevatiion today will continue iv fluids. Qualifiers: Chronic kidney disease stage 3 subtype: stage 3a (GFR 45-59) Qualified Code(s): N18.31 - Chronic kidney disease, stage 3a Discharge Plan: Home Plan to discharge in: 24 Hours - Code Status/Comfort Care Code Status Assessed: No Physician Review: Patient Assessed, Agree with Above Assessment and Plan Critical Care: No Time Spent Managing PTS Care (In Minutes): 20
[2023-05-21] MEDS: BISMUTH SUBSALICYL 262MG/15ML-240 ML BTL PO SCH ×2 (16:02→19:33)
[2023-05-21] MEDS: PROMETHAZINE 25 MG TABLET PO SCH ×2 (16:02→19:33)
[2023-05-21] MEDS: HYDROCODONE/APAP 7.5/325 MG TAB PO PRN ×2 (16:13→23:16)
--- NOTE | 2023-05-21 18:07 | EKG ---
Test Date: 2023-05-21 Test Time: 09:25:20 Sewer Line Photo Inspector: BETTY MEASUREMENT RESULTS: Intervals: Rate: 76 NE: 140 QRSD: 82 QT: 394 QTc: 443 [place]: P: 43 NE: 140 QRS: 61 T: 43 INTERPRETIVE STATEMENTS: Normal sinus rhythm Normal ECG Compared to ECG 05/20/2023 04:44:38 No significant changes Electronically Signed On 05-21-23 18:06:57 CDT by Nick Franco
--- NOTE | 2023-05-21 19:01 | CON ---
Date of Consultation: 05/21/2023 Reason For Consultation: DVT of upper extremity. History Of Present Illness: This is a 38-year-old female with history of hypertension, diabetes, chr onic kidney disease, history of DVT in the past. Started having pain in the right upper arm, became worse, so she presented to the emergency room, was found to have right brachial vein thrombosis. She was on Eliquis at home, but not sure if she was taking it on a regular basis or not as she was recei ving it through assistance program. Past Medical History: As outlined above in the HPI. Medications: Refer to reconciliation sheet for detailed list. Allergies: LISTS OF ALLERGIES WERE REVIEWED. Family History: No premature coronary artery disease or cancer. Social History: She does not smoke or drink. Does not use any drugs. Review of Systems: All systems reviewed and they were negative except what mentioned in HPI. Physical Examination: Vital Signs: Reviewed. Head and Neck: Pupils are equal, reactive to light. Intact eye movements. No JVD. No cervical lym phadenopathy. Neck is supple. Thyroid is not enlarged. Lungs: Clear to auscultation bilaterally. No rhonchi, wheezing, or crackles. No accessory muscle u se. Heart: Regular rate and rhythm. No extra sounds. Abdomen: Soft, nontender. Bowel sounds positive. No organomegaly. No masses or hernia. No rigidi ty or rebound. Extremities: There is edema involving right upper extremities. Lymph Nodes: No cervical or axillary lymphadenopathy. Neurologic: Alert, awake. No acute focal deficits appreciated. Investigations: BUN 14, creatinine 0.44, and hemoglobin is 12.9. Assessment And Recommendations: Proximal right brachial vein thrombosis. The patient definitely nee ds anticoagulation and it seems like there might be a concern about obtaining that request due to cos t as an outpatient and this patient is having unprovoked attacks of deep vein thrombosis. Definitely , she should be on anticoagulation for the rest of her life. Given the difficulty obtaining Eliquis that will question her compliance with it, as such I recommend switching her to Coumadin to overlap w ith Lovenox first therapeutic dose and to dose the Coumadin to get INR between 2 and 3 and this might be more affordable way of treating her deep vein thrombosis. Thank you for the consult. Cardiology will sign off. SR/MODL Voice ID: [id number] Report ID: [id number]
[2023-05-22] MEDS: ACETAMINOPHEN 500 MG TAB PO SCH ×2 (00:30→08:02)
[2023-05-22] MEDS: NA CHLORIDE 0.9% 1,000 ML IV SCH ×2 (02:32→08:00)
[2023-05-22] MEDS: INSULIN -REGULAR HUMAN 50 UNIT/0.5 ML ML SQ SCH (07:30)
[2023-05-22] MEDS: CHLORTHALIDONE 25 MG TAB PO SCH (08:01)
[2023-05-22] MEDS: FAMOTIDINE 20 MG/2 ML VIAL IV SCH (08:01)
[2023-05-22] MEDS: HYDROCODONE/APAP 7.5/325 MG TAB PO PRN (08:01)
[2023-05-22] MEDS: GLIPIZIDE S.A. 5 MG TAB PO SCH (08:02)
[2023-05-22] MEDS: ASPIRIN EC 81 MG TAB PO SCH (08:02)
[2023-05-22] MEDS: PROMETHAZINE 25 MG TABLET PO SCH (08:02)
[2023-05-22] MEDS: POTASSIUM 25 MEQ EFFERV TAB PO SCH ×2 (08:02→08:06)
[2023-05-22] MEDS: APIXABAN 5 MG TABLET PO SCH (08:02)
[2023-05-22] MEDS: BISMUTH SUBSALICYL 262MG/15ML-240 ML BTL PO SCH (08:03)
[2023-05-22 08:07] VITALS: BP 104/62; TEMP 98.2
[2023-05-22 09:53] VITALS: O2SAT 99
--- NOTE | 2023-05-22 11:44 | P.DS ---
Admission Date: 05/20/23 Discharge Date: 05/22/23 Primary Care Provider: none Disposition: ROUTINE DISCHARGE Discharge Condition: GOOD Reason for Admission: right upper extremity dvt - Problems (1) Nausea & vomiting Status: Acute Qualifiers: Vomiting type: unspecified Qualified Code(s): R11.2 - Nausea with vomiting, unspecified (2) Deep vein thrombosis of right upper extremity Status: Acute Qualifiers: Affected thrombotic vein of extremity: brachial Chronicity: acute Qualified Code(s): I82.621 - Acute embolism and thrombosis of deep veins of right upper extremity (3) Hypertension Status: Chronic Qualifiers: Hypertension type: primary hypertension (4) Type 2 diabetes mellitus Status: Chronic Qualifiers: Diabetes mellitus retirement insulin use: without retirement use Diabetes mellitus complication status: without complication Qualified Code(s): E11.9 - Type 2 diabetes mellitus without complications (5) CKD (chronic kidney disease) stage 3, GFR 30-59 ml/min Status: Acute Qualifiers: Chronic kidney disease stage 3 subtype: stage 3a (GFR 45-59) Qualified Code(s): N18.31 - Chronic kidney disease, stage 3a Brief History of Present Illness: Patient is a pleasant woman with a history of htn, dm2, ckd stage 3. She has had 2 blood clots in the past and is on eliquis. 3 days ago she started having pain in the right upper arm. It go worse and she came to the ER. Was found to have a right brachial vein thrombosis. The patient is on eliquis. has been recieving it through an assistance program. The patient has creatine of 1.4 Her baseline is about 1.3-1.4 So she is doing well from that regard. She is in pain from the blood clot Hospital Course: Patient admitted for a upper right extremity dvt. She is on eliquis. Sugars are well controlled. a1c is 7.7 She had some nausea and vomiting. She was kept an extra day to control this. Will be sent home with eliquis 10mg bid for 7 days. Than back to the regular dosage of 5mg po bid. She can follow up with me if she chooses. She does snore. Will need to refer to Hemoncology for her recurrent DVT despite eliquis therapy. Vital Signs/Physical Exam: Temp Pulse Resp BP Pulse Ox 98.2 F 99 H 14 104/62 94 05/22/23 08:00 05/22/23 08:00 05/22/23 09:01 05/22/23 08:00 05/22/23 09:01 General: Alert, In no apparent distress HEENT: Atraumatic, PERRLA, EOMI Neck: Supple, JVD not distended Respiratory: Clear to auscultation bilaterally, Normal air movement Cardiovascular: Regular rate/rhythm, Normal S1 S2 Gastrointestinal: Normal bowel sounds, No tenderness Musculoskeletal: No tenderness Integumentary: No rashes Neurological: Normal speech, Normal tone, Normal affect Lymphatics: No axilla or inguinal lymphadenopathy Laboratory Data at Discharge: WBC 11.80 thou/uL (4.3-10.9) H 05/21/23 06:02 Hgb 12.9 g/dL (12.0-15.0) D 05/21/23 06:02 Hct 38.4 % (36.0-45.0) 05/21/23 06:02 Plt Count 419 thou/uL (152-406) H 05/21/23 06:02 PT 14.5 SECONDS (9.5-12.5) H 05/20/23 05:50 INR 1.32 05/20/23 05:50 Sodium 136 mEq/L (136-145) 05/21/23 06:02 Potassium 3.8 mEq/L (3.5-5.1) 05/21/23 06:02 BUN 14 mg/dL (7-18) 05/21/23 06:02 Creatinine 1.44 mg/dL (0.55-1.02) H 05/21/23 06:02 Glucose 148 mg/dL (74-106) H 05/21/23 06:02 Total Bilirubin 0.2 mg/dL (0.2-1.0) 05/20/23 05:50 AST 18 U/L (15-37) 05/20/23 05:50 ALT 13 U/L (13-56) 05/20/23 05:50 Alkaline Phosphatase 114 U/L (45-117) 05/20/23 05:50 Triglycerides 94 mg/dL (<150) 05/21/23 06:02 Cholesterol 78 mg/dL (<200) 05/21/23 06:02 HDL Cholesterol 38 mg/dL (40-60) L 05/21/23 06:02 Cholesterol/HDL Ratio 2.05 05/21/23 06:02 Home Medications: Gabapentin 300 mg PO BID 06/18/22 Losartan Potassium 25 mg PO DAILY 06/18/22 Chlorthalidone 25 mg PO DAILY 08/31/22 Levothyroxine Sodium 25 mcg PO DAILY 08/31/22 Pantoprazole [Protonix Tab*] 40 mg PO DAILY 08/31/22 Apixaban [Eliquis] 5 mg PO BID #74 tab 09/01/22 Atorvastatin Calcium [Lipitor*] 10 mg PO BEDTIME 05/20/23 glipiZIDE [Glipizide] 10 mg PO BID 05/20/23 Diet: ADA Activity: Ad harmeet Followup: Miguel Choi MD [ACTIVE - CAN ADMIT] - 1-2 Weeks (call to schedule an appointment) Physician Review: Patient Assessed, Agree with Above Assessment and Plan Time spent managing pt's care (in minutes): 30
== END 2023-05-22 10:12 | disposition home or self-care (01) ==
LOC: ER 04:17 → ERHOLD 07:02 → 4TH 07:23
PROVIDERS: ADMIT Internal Medicine; ATTEND Internal Medicine
DX: I82.621 Acute embolism and thrombosis of deep veins of right upper extremity (principal); R11.2 Nausea with vomiting, unspecified; I10 Essential (primary) hypertension; E11.9 Type 2 diabetes mellitus without complications; N18.31 Chronic kidney disease, stage 3a; Z82.49 Family history of ischemic heart disease and other diseases of the circulatory system; Z79.01 Long term (current) use of anticoagulants
CPT/HCPCS: 36415; 72125; 80048; 80053; 80061; 82947; 83036; 84132; 84484; 85025; 85610; 93005; 93971; 96374; 96375; 99285; G0378; J1170; J1815; J2405; J7030; J7040; Q0169

== ENCOUNTER 2023-06-10 12:26 | Emergency (ER) | payer SELFPAY ==
[2023-06-10 14:10] LABS: Specific Gravity 1.015 (1.005-1.030); Urine Bacteria <20 /HPF (<20); Urine Bilirubin NEGATIVE (Negative); Urine Blood Negative (Negative); Urine Clarity Clear (Clear); Urine Color Light-Yellow (Yellow); Urine Glucose TRACE (Negative); Urine Protein NEGATIVE (Negative); Urine RBC <5 /HPF (None Seen); Urine Urobilinogen Normal (Normal); Urine pH 6.5 (5.0-7.0)
--- NOTE | 2023-06-10 15:41 | EDPHYS ---
Physician Documentation [facility] Name: Ara Mercado Age: 38 yrs Sex: Female : 1985 Arrival Date: 06/10/2023 Time: 12:26 Bed 4 Private MD: ED Physician Alex Lemons HPI: 06/10 13:43 This 38 yrs old Female presents to ER via Ambulatory with complaints of Arm Pain. rn 13:43 The patient or guardian complains of pain, that is acute. The patient or guardian rn complains of pain. The complaints affect the right upper/outer arm. 13:45 Onset: The symptoms/episode began/occurred today. Modifying factors: The symptoms are rn alleviated by nothing. the symptoms are aggravated by movement. Severity of symptoms: At their worst the symptoms were mild, in the emergency department the symptoms are unchanged. The patient has experienced a previous episode. The patient has not recently seen a physician. Pt reports right arm pain, has hx of blood clot in right arm, takes eliquis. Reports recent blood draw, and started to have arm pain today. No chest pain/sob. No hx of PE. . Historical: - Allergies: 12:46 Amoxicillin; aa5 12:46 Bactrim; aa5 12:46 Flagyl; aa5 12:46 Morphine; aa5 12:46 Toradol; aa5 12:46 Tramadol HCl; aa5 - Home Meds: 12:46 Eliquis oral [Active]; gabapentin Oral [Active]; losartan [Active]; lipitor [Active]; aa5 Synthroid Oral [Active]; pantoprazole [Active]; unknown diuretic [Active]; - PMHx: 12:46 diabetes mellitus; Hypercholesterolemia; Hypertensive disorder; Hypothyroidism; NSTEMI; aa5 Right arm blood clot; - Immunization history:: Adult Immunizations unknown. - Social history:: Smoking status: Patient reports the use of cigarette tobacco products, smokes one-half pack cigarettes per day. - Family history:: not pertinent. - Hospitalizations: : No recent hospitalization is reported. ROS: 13:45 Constitutional: Negative for fever, chills, and weight loss, Cardiovascular: Negative rn for chest pain, palpitations, and edema, Respiratory: Negative for shortness of breath, cough, wheezing, and pleuritic chest pain, Abdomen/GI: Negative for abdominal pain, nausea, vomiting, diarrhea, and constipation, Back: Negative for injury and pain, MS/Extremity: Negative for injury and deformity, Skin: Negative for injury, rash, and discoloration, Neuro: Negative for headache, weakness, numbness, tingling, and seizure. Exam: 13:45 Constitutional: This is a well developed, well nourished patient who is awake, alert, rn and in no acute distress. MS/ Extremity: Pulses equal, no cyanosis. Neurovascular intact. Full, normal range of motion. Mild tenderness right upper/outer arm, not tender along deep venous system, no cyanosis. Vital Signs: 12:46 BP 116 / 83; Pulse 100; Resp 18 S; Temp 97.3(TE); Pulse Ox 100% on R/A; Weight 72.57 kg aa5 (R); Height 5 ft. 2 in. (R); 13:30 BP 104 / 74; Pulse 93; Resp 16 S; Pulse Ox 96% on R/A; kc6 14:53 BP 108 / 77; kc6 15:49 BP 112 / 74; Pulse 84; Resp 18; Pulse Ox 99% on R/A; mb9 12:46 Body Mass Index 29.26 (72.57 kg, 157.48 cm) aa5 MDM: 12:49 Patient medically screened. rn 15:38 Differential diagnosis: DVT, thrombophlebitis. Data reviewed: vital signs, nurses rn notes, radiologic studies, ultrasound, and as a result, I will discharge patient. Counseling: I had a detailed discussion with the patient and/or guardian regarding: the historical points, exam findings, and any diagnostic results supporting the discharge/admit diagnosis, radiology results, the need for outpatient follow up, to return to the emergency department if symptoms worsen or persist or if there are any questions or concerns that arise at home. Special discussion: I discussed with the patient/guardian in detail that at this point there is no indication for admission to the hospital. It is understood, however, that if the symptoms persist or worsen the patient needs to return immediately for re-evaluation. Based on the history and exam findings, there is no indication for further emergent testing or inpatient evaluation. I discussed with the patient/guardian the need to see the manager women/oncologist for further evaluation of the symptoms. ED course: U/S shows same DVT RUE, no new DVT, no resp symptoms, taking eliquis, will dc home with return precautions and hematology. . 06/10 13:43 Order name: Urinalysis w/ reflexes; Complete Time: 14:54 rn 06/10 14:14 Order name: Urine Culture EDMS 06/10 13:36 Order name: UPPER EXTREMITY VENOUS UNILATE; Complete Time: 15:46 EDMS Administered Medications: 15:41 Drug: Monon PO 10 mg-325 mg 1 tabs Route: PO; mb9 15:41 Follow up: Response: No adverse reaction mb9 Disposition Summary: 06/10/23 15:40 Discharge Ordered Location: Home rn Problem: an ongoing problem rn Symptoms: have improved rn Condition: Stable rn Diagnosis - Acute embolism and thrombosis of deep veins of right upper extremity - Subacute, rn known, no change - UTI/ Urinary tract infection, site not specified rn Followup: rn - With: Private Physician - When: As needed - Reason: Recheck today's complaints, Re-evaluation by your physician Discharge Instructions: - Discharge Summary Sheet rn - Deep Vein Thrombosis rn - Urinary Tract Infection, Adult rn Forms: - Medication Reconciliation Form rn - Thank You Letter rn - Antibiotic furnace firer - Prescription Opioid Use rn - Patient Portal Instructions rn Prescriptions: - Cipro 500 mg Oral Tablet - take 1 tablet by ORAL route every 12 hours for 7 days; 14 tablet; Refills: 0, rn Product Selection Permitted Signatures: Dispatcher [employer] EDMS Alex Lemons MD MD rn Calderon, Audri, RN RN [email or web address] Milena Dominguez, RN RN mb9 Corrections: (The following items were deleted from the chart) 12:49 12:46 PMHx: DVT; aa5 aa5 13:36 12:54 Extremity Venous [email or web address] ordered. EDDE EDMS
--- NOTE | 2023-06-10 15:41 | ER ---
Nurse's Notes [facility] [place] Name: Ara Mercado Age: 38 yrs Sex: Female : 1985 Arrival Date: 06/10/2023 Time: 12:26 Bed 4 Private MD: Diagnosis: Acute embolism and thrombosis of deep veins of right upper extremity-Subacute, known, no change;UTI/ Urinary tract infection, site not specified Presentation: 06/10 12:46 Chief complaint: Patient states: right arm pain that began today. Pt states "I've had a aa5 blood clot in my arm before so my doctor wants to make sure it's not a blood clot". pt also states "I think I have a UTI". 12:46 Coronavirus screen: At this time, the client does not indicate any symptoms associated aa5 with coronavirus-19. Ebola Screen: Patient denies travel to an Ebola-affected area in the 21 days before illness onset. Initial Sepsis Screen: Does the patient meet any 2 criteria? HR > 90 bpm. Does the patient have a suspected source of infection? No. Patient's initial sepsis screen is negative. Risk Assessment: Do you want to hurt yourself or someone else? Patient reports no desire to harm self or others. Onset of symptoms was June 10, 2023. 12:46 Acuity: CHARISSA 3 aa5 12:46 Method Of Arrival: Ambulatory aa5 Historical: - Allergies: 12:46 Amoxicillin; aa5 12:46 Bactrim; aa5 12:46 Flagyl; aa5 12:46 Morphine; aa5 12:46 Toradol; aa5 12:46 Tramadol HCl; aa5 - Home Meds: 12:46 Eliquis oral [Active]; gabapentin Oral [Active]; losartan [Active]; lipitor [Active]; aa5 Synthroid Oral [Active]; pantoprazole [Active]; unknown diuretic [Active]; - PMHx: 12:46 diabetes mellitus; Hypercholesterolemia; Hypertensive disorder; Hypothyroidism; NSTEMI; aa5 Right arm blood clot; - Immunization history:: Adult Immunizations unknown. - Social history:: Smoking status: Patient reports the use of cigarette tobacco products, smokes one-half pack cigarettes per day. - Family history:: not pertinent. - Hospitalizations: : No recent hospitalization is reported. Screenin:45 [facility] ED Fall Risk Assessment (Adult) History of falling in the last 3 months, kc6 including since admission No falls in past 3 months (0 pts) Confusion or Disorientation No (0 pts) Intoxicated or Sedated No (0 pts) Impaired Gait No (0 pts) Mobility Assist Device Used No (0 pt) Altered Elimination No (0 pt) Score/Fall Risk Level 0 - 2 = Low Risk Oriented to surroundings, Maintained a safe environment, Educated pt \\T\\ family on fall prevention, incl call for assistance when getting out of bed, Assessed \\T\\ reinforced patient's understanding of fall precautions, Hourly rounding (assess needs \\T\\ fall precautionary measures) done. Abuse screen: Denies threats or abuse. Denies injuries from another. Nutritional screening: No deficits noted. Tuberculosis screening: No symptoms or risk factors identified. Assessment: 12:50 General: Appears in no apparent distress. comfortable, Behavior is calm, cooperative, kc6 appropriate for age. Pain: Complains of pain in right arm. Neuro: Level of Consciousness is awake, alert, obeys commands, Oriented to person, place, time, situation, Appropriate for age. Cardiovascular: Capillary refill < 3 seconds. Respiratory: Airway is patent Trachea midline Respiratory effort is even, unlabored, Respiratory pattern is regular, symmetrical. GI: No signs and/or symptoms were reported involving the gastrointestinal system. : No signs and/or symptoms were reported regarding the genitourinary system. EENT: No signs and/or symptoms were reported regarding the EENT system. Derm: No signs and/or symptoms reported regarding the dermatologic system. Skin is intact, is healthy with good turgor, Skin is pink, warm \\T\\ dry. Musculoskeletal: No signs and/or symptoms reported regarding the musculoskeletal system. Circulation, motion, and sensation intact. Capillary refill < 3 seconds, Range of motion: intact in all extremities. 13:30 Reassessment: Patient appears in no apparent distress at this time. No changes from kc6 previously documented assessment. Patient and/or family updated on plan of care and expected duration. Pain level reassessed. Patient is alert, oriented x 3, equal unlabored respirations, skin warm/dry/pink. 14:30 Reassessment: Patient appears in no apparent distress at this time. No changes from kc6 previously documented assessment. Patient and/or family updated on plan of care and expected duration. Pain level reassessed. Patient is alert, oriented x 3, equal unlabored respirations, skin warm/dry/pink. 15:49 Reassessment: No changes from previously documented assessment. Patient and/or family mb9 updated on plan of care and expected duration. Pain level reassessed. Patient is alert, oriented x 3, equal unlabored respirations, skin warm/dry/pink. Vital Signs: 12:46 BP 116 / 83; Pulse 100; Resp 18 S; Temp 97.3(TE); Pulse Ox 100% on R/A; Weight 72.57 kg aa5 (R); Height 5 ft. 2 in. (R); 13:30 BP 104 / 74; Pulse 93; Resp 16 S; Pulse Ox 96% on R/A; kc6 14:53 BP 108 / 77; kc6 15:49 BP 112 / 74; Pulse 84; Resp 18; Pulse Ox 99% on R/A; mb9 12:46 Body Mass Index 29.26 (72.57 kg, 157.48 cm) aa5 ED Course: 12:29 Patient arrived in ED. mg5 12:45 Patient has correct armband on for positive identification. Bed in low position. Call kc6 light in reach. Side rails up X 1. 12:46 Arm band placed on. aa5 12:49 Alex Lemons MD is Attending Physician. rn 12:50 Triage completed. aa5 12:52 Viki Gilmore, RN is Primary Nurse. kc6 14:40 UPPER EXTREMITY VENOUS UNILATE In Process Unspecified. EDMS 15:49 No provider procedures requiring assistance completed. Patient did not have IV access mb9 during this emergency room visit. Administered Medications: 15:41 Drug: [place] PO 10 mg-325 mg 1 tabs Route: PO; mb9 15:41 Follow up: Response: No adverse reaction mb9 Outcome: 15:40 Discharge ordered by . rn 15:49 Discharged to home ambulatory. mb9 15:49 Condition: stable 15:49 Discharge instructions given to patient, Instructed on discharge instructions, follow up and referral plans. Demonstrated understanding of instructions, follow-up care, medications, Prescriptions given X 1. 15:49 Patient left the ED. mb9 Signatures: Dispatcher [employer] EDMS Alex Lemons MD MD rn Calderon, Audri, RN RN aa5 Viki Gilmore RN RN kc6 Milena Dominguez RN RN mb9 Jada Yarbrough mg5 Corrections: (The following items were deleted from the chart) 12:49 12:46 PMHx: DVT; aa5 aa5
--- NOTE | 2023-06-10 15:45 | RAD REPORT ---
EXAM DESCRIPTION: US - UPPER EXTREMITY VENOUS UNILATE - 06/10/2023 2:43 pm CLINICAL HISTORY: PAIN Arm pain and swelling COMPARISON: <Comparisons> FINDINGS: Right upper extremity venous system was interrogated with Doppler technique. There continu es to be right radial vein thrombus. It appears unchanged since comparative study. 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
[2023-06-10] MEDS ORDERED: HYDROCODONE/APAP 10/325 TAB ONE (15:49)
[2023-06-10 16:15] VITALS: TEMP 97.3
[2023-06-10 16:19] VITALS: BP 112/74; O2SAT 99
== END 2023-06-10 15:49 | disposition home or self-care (01) ==
LOC: ER 12:26
DX: I82.621 Acute embolism and thrombosis of deep veins of right upper extremity (principal); N39.0 Urinary tract infection, site not specified
CPT/HCPCS: 81001; 87077; 87086; 87088; 87186; 93971; 99284

== ENCOUNTER 2023-07-01 16:27 | Emergency (ER) | payer SELFPAY ==
[2023-07-01] MEDS ORDERED: methocarbamoL 750 MG TAB ONE (19:32)
[2023-07-01] MEDS ORDERED: HYDROCODONE/APAP 10/325 TAB ONE (19:33)
[2023-07-01 20:02] LABS: Specific Gravity 1.016 (1.005-1.030); Urine Bacteria 20-50 /HPF (<20); Urine Bilirubin NEGATIVE (Negative); Urine Blood Negative (Negative); Urine Clarity Extremely Turbid (Clear); Urine Color Light-Yellow (Yellow); Urine Glucose 3+ (Negative); Urine Mucus Slight /HPF (None Seen); Urine Protein NEGATIVE (Negative); Urine RBC <5 /HPF (None Seen); Urine Urobilinogen Normal (Normal); Urine WBC Clump Rare /HPF (None Seen); Urine pH 5.5 (5.0-7.0)
--- NOTE | 2023-07-01 20:14 | ER ---
Nurse's Notes [facility] Name: Ara Mercado Age: 38 yrs Sex: Female : 1985 Arrival Date: 07/01/2023 Time: 16:27 Bed 21 Private MD: Diagnosis: Low back pain Presentation: 07/01 17:22 Chief complaint: Patient states: Nausea and back pain for 4 days, radiating to neck. No nj1 known injury. Dizziness on/off for months. Coronavirus screen: Vaccine status: Patient reports receiving the 2nd dose of the covid vaccine. Ebola Screen: Patient denies travel to an Ebola-affected area in the 21 days before illness onset. Initial Sepsis Screen: Does the patient meet any 2 criteria? HR > 90 bpm. No. Patient's initial sepsis screen is negative. Does the patient have a suspected source of infection? No. Patient's initial sepsis screen is negative. Risk Assessment: Do you want to hurt yourself or someone else? Patient reports no desire to harm self or others. Onset of symptoms was June 27, 2023. 17:22 Method Of Arrival: Ambulatory nj1 17:22 Acuity: CHARISSA 3 nj1 Historical: - Allergies: 17:26 Amoxicillin; nj1 17:26 Bactrim; nj1 17:26 Flagyl; nj1 17:26 Morphine; nj1 17:26 Toradol; nj1 17:26 Tramadol HCl; nj1 - PMHx: 17:26 diabetes mellitus; Hypercholesterolemia; Hypertensive disorder; Hypothyroidism; NSTEMI; nj1 Right arm blood clot; - PSHx: 17:26 Cholecystectomy; nj1 - Immunization history:: Client reports receiving the 2nd dose of the Covid vaccine. - Social history:: Smoking status: Patient reports the use of cigarette tobacco products, smokes one pack cigarettes per day. Screenin:04 [facility] ED Fall Risk Assessment (Adult) History of falling in the last 3 months, cm10 including since admission No falls in past 3 months (0 pts) Confusion or Disorientation No (0 pts) Intoxicated or Sedated No (0 pts) Impaired Gait No (0 pts) Mobility Assist Device Used No (0 pt) Altered Elimination No (0 pt) Score/Fall Risk Level 0 - 2 = Low Risk Oriented to surroundings, Maintained a safe environment, Hourly rounding (assess needs \T\ fall precautionary measures) done. Abuse screen: Denies threats or abuse. Denies injuries from another. Nutritional screening: No deficits noted. Tuberculosis screening: No symptoms or risk factors identified. Assessment: 19:04 General: Appears in no apparent distress. comfortable, Behavior is calm, cooperative. cm10 Pain: Complains of pain in back. Neuro: Level of Consciousness is awake, alert, obeys commands, Oriented to person, place, time, situation. Respiratory: No deficits noted. Airway is patent Respiratory effort is even, unlabored, Respiratory pattern is regular, symmetrical. Vital Signs: 17:22 BP 123 / 80; Pulse 110; Resp 18; Temp 98.6(TE); Pulse Ox 100% ; Weight 71.67 kg; Height nj1 5 ft. 2 in. ; Pain 8/10; 17:22 Body Mass Index 28.90 (71.67 kg, 157.48 cm) nj1 17:22 Pain Scale: Adult [facility] ED Course: 16:34 Patient arrived in ED. im 17:03 Brannon Cooper MD is Attending Physician. kdr 17:25 Triage completed. nj1 17:26 Arm band placed on right wrist. nj1 19:04 Joceline Land, RN is Primary Nurse. cm10 19:05 Patient has correct armband on for positive identification. Bed in low position. Call cm10 light in reach. Provided Education on: N/A. 19:29 Urinalysis w/ reflexes Sent. cm10 20:57 No provider procedures requiring assistance completed. Patient did not have IV access cm10 during this emergency room visit. Administered Medications: 19:29 Drug: [place] PO 10 mg-325 mg 1 tabs Route: PO; cm10 20:57 Follow up: Response: No adverse reaction cm10 19:29 Drug: Methocarbamol PO 750 mg Route: PO; cm10 20:57 Follow up: Response: No adverse reaction cm10 Medication: 19:04 VIS not applicable for this client. cm10 Outcome: 20:13 Discharge ordered by . kdr 20:57 Discharged to home ambulatory, with family. cm10 20:57 Condition: good 20:57 Discharge instructions given to patient, Instructed on discharge instructions, follow up and referral plans. medication usage, Demonstrated understanding of instructions, follow-up care, medications, Prescriptions given X 2. 20:58 Patient left the ED. cm10 Signatures: Brannon Cooper MD MD kdr Jaco, Norma, RN RN nj1 Henny Mueller Clarissa, RN RN cm10
--- NOTE | 2023-07-01 20:14 | EDPHYS ---
Physician Documentation [facility] Name: Ara Mercado Age: 38 yrs Sex: Female : 1985 Arrival Date: 07/01/2023 Time: 16:27 Bed 21 Private MD: ED Physician Brannon Cooper HPI: 07/01 21:06 This 38 yrs old Female presents to ER via Ambulatory with complaints of Back Pain, kdr Dizziness. 21:07 Patient states that she has had nausea and back pain for the last 4 days. The pain kdr starts in her low back and radiates up the right side of her back. The pain is right-sided and not midline and superior to her iliac crest. She denies any injury. She is occasionally dizzy off and on for the last few months but nothing focal or new in that regard. Patient appears mildly uncomfortable on her initial presentation but otherwise nontoxic. Patient is interacting appropriately with staff. 21:08 Onset: The symptoms/episode began/occurred gradually, 4 day(s) ago. Severity of kdr symptoms: At their worst the symptoms were mild moderate just prior to arrival, in the emergency department the symptoms are unchanged. The patient has experienced similar episodes in the past, a few times. The patient has not recently seen a physician. Historical: - Allergies: 17:26 Amoxicillin; nj1 17:26 Bactrim; nj1 17:26 Flagyl; nj1 17:26 Morphine; nj1 17:26 Toradol; nj1 17:26 Tramadol HCl; nj1 - PMHx: 17:26 diabetes mellitus; Hypercholesterolemia; Hypertensive disorder; Hypothyroidism; NSTEMI; nj1 Right arm blood clot; - PSHx: 17:26 Cholecystectomy; nj1 - Immunization history:: Client reports receiving the 2nd dose of the Covid vaccine. - Social history:: Smoking status: Patient reports the use of cigarette tobacco products, smokes one pack cigarettes per day. ROS: 21:08 Constitutional: Negative for fever, chills, and weight loss, Eyes: Negative for injury, kdr pain, redness, and discharge, Neck: Negative for injury, pain, and swelling, Cardiovascular: Negative for chest pain, palpitations, and edema, Respiratory: Negative for shortness of breath, cough, wheezing, and pleuritic chest pain, Abdomen/GI: Negative for abdominal pain, nausea, vomiting, diarrhea, and constipation, : Negative for injury, bleeding, discharge, and swelling, MS/Extremity: Negative for injury and deformity, Skin: Negative for injury, rash, and discoloration, Neuro: Negative for headache, weakness, numbness, tingling, and seizure activity. Psych: Negative for depression, anxiety, suicide ideation, homicidal ideation, and hallucinations, Allergy/Immunology: Negative for hives, rash, and allergies, Endocrine: Negative for neck swelling, polydipsia, polyuria, polyphagia, and marked weight changes, Hematologic/Lymphatic: Negative for swollen nodes, abnormal bleeding, and unusual bruising. 21:08 Back: Positive for decreased range of motion, pain at rest, pain with movement, of the right low back. Exam: 21:08 Constitutional: This is a well developed, well nourished patient who is awake, alert, kdr and in no acute distress. Head/Face: Normocephalic, atraumatic. Eyes: Pupils equal round and reactive to light, extra-ocular motions intact. Lids and lashes normal. Conjunctiva and sclera are non-icteric and not injected. Cornea within normal limits. Periorbital areas with no swelling, redness, or edema. Neck: Trachea midline, no thyromegaly or masses palpated, and no cervical lymphadenopathy. Supple, full range of motion without nuchal rigidity, or vertebral point tenderness. No Meningismus. Chest/axilla: Normal chest wall appearance and motion. Nontender with no deformity. No lesions are appreciated. Cardiovascular: Regular rate and rhythm with a normal S1 and S2. No gallops, murmurs, or rubs. Normal PMI, no JVD. No pulse deficits. Respiratory: Lungs have equal breath sounds bilaterally, clear to auscultation and percussion. No rales, rhonchi or wheezes noted. No increased work of breathing, no retractions or nasal flaring. Abdomen/GI: Soft, non-tender, with normal bowel sounds. No distension or tympany. No guarding or rebound. No evidence of tenderness throughout. Skin: Warm, dry with normal turgor. Normal color with no rashes, no lesions, and no evidence of cellulitis. MS/ Extremity: Pulses equal, no cyanosis. Neurovascular intact. Full, normal range of motion. Neuro: Awake and alert, GCS 15, oriented to person, place, time, and situation. Cranial nerves II-XII grossly intact. Motor strength 5/5 in all extremities. Sensory grossly intact. Cerebellar exam normal. Normal gait. Psych: Awake, alert, with orientation to person, place and time. Behavior, mood, and affect are within normal limits. 21:08 Back: pain, that is mild, that is moderate, of the right low back, ROM is painful, with all movement, normal spinal alignment noted, CVA tenderness, is absent, vertebral tenderness, is not appreciated, muscle spasm, is appreciated in the right low back. Vital Signs: 17:22 BP 123 / 80; Pulse 110; Resp 18; Temp 98.6(TE); Pulse Ox 100% ; Weight 71.67 kg; Height nj1 5 ft. 2 in. ; Pain 8/10; 17:22 Body Mass Index 28.90 (71.67 kg, 157.48 cm) nj1 17:22 Pain Scale: Adult nj1 MDM: 20:13 Patient medically screened. kdr 21:08 Data reviewed: vital signs, nurses notes. kdr 07/01 19:12 Order name: Urinalysis w/ reflexes kdr 07/01 20:06 Order name: Urine Culture EDMS Administered Medications: 19:29 Drug: [place] PO 10 mg-325 mg 1 tabs Route: PO; cm10 20:57 Follow up: Response: No adverse reaction cm10 19:29 Drug: Methocarbamol PO 750 mg Route: PO; cm10 20:57 Follow up: Response: No adverse reaction cm10 Disposition Summary: 07/01/23 20:13 Discharge Ordered Location: Home kdr Problem: new kdr Symptoms: are resolved kdr Condition: Fair kdr Diagnosis - Low back pain kdr Followup: kdr - With: Private Physician - When: 2 - 3 days - Reason: If symptoms return, Further diagnostic work-up, Recheck today's complaints, Continuance of care, Re-evaluation by your physician Discharge Instructions: - Discharge Summary Sheet kdr Forms: - Medication Reconciliation Form kdr - Thank You Letter kdr - Patient Portal Instructions kdr Prescriptions: - Diclofenac Sodium 75 mg Oral tablet,delayed release (DR/EC) - take 1 tablet by ORAL route 2 times per day As needed; 10 tablet; Refills: 0, kdr Product Selection Permitted - orphenadrine citrate 100 mg Oral tablet extended release - take 1 tablet by ORAL route 2 times per day As needed; 10 tablet; Refills: 0, kdr Product Selection Permitted Signatures: Dispatcher [employer] Brannon Pruitt MD MD kdr Caryl Valenzuela RN RN nj1 Joceline Land RN RN cm10
[2023-07-01 21:54] VITALS: BP 123/80; TEMP 98.6; O2SAT 100
== END 2023-07-01 20:58 | disposition home or self-care (01) ==
LOC: ER 16:27
DX: M54.50 Low back pain, unspecified (principal); R11.0 Nausea; Z88.1 Allergy status to other antibiotic agents; Z88.5 Allergy status to narcotic agent; Z88.8 Allergy status to other drugs, medicaments and biological substances; E11.9 Type 2 diabetes mellitus without complications; E78.00 Pure hypercholesterolemia, unspecified; I10 Essential (primary) hypertension; E03.9 Hypothyroidism, unspecified; Z72.0 Tobacco use
CPT/HCPCS: 81001; 87086; 87088

== ENCOUNTER 2023-07-18 00:15 | Emergency (ER) | payer SELFPAY ==
[2023-07-18] MEDS ORDERED: FENTANYL CITR 100 MCG/2 ML ONE ×2 (01:50→03:19)
[2023-07-18] MEDS ORDERED: ONDANSETRON 4 MG/2 ML VIAL ONE (01:50)
[2023-07-18] MEDS ORDERED: CYCLOBENZAPRINE 10 MG TAB ONE (01:50)
[2023-07-18 02:22] LABS: Absolute Lymphocytes (CBC) 2.7 K/uL (0.7-4.9); Lymphocytes % 18.9 % (15.3-44.8); MCV 93.5 fL (80-100); MPV 7.6 fL (7.6-11.3); Platelets 424 thou/uL (152-406); RBC Red Blood Cell Count 3.53 M/uL (3.86-4.86)
[2023-07-18 02:31] LABS: Albumin 2.8 g/dL (3.4-5.0); Bilirubin Total 0.3 mg/dL (0.2-1.0); C-Reactive Protein 10.8 mg/L (<3.00); Potassium 3.3 mEq/L (3.5-5.1); Protein, Total 6.5 g/dL (6.4-8.2)
[2023-07-18 02:40] LABS: Specific Gravity 1.012 (1.005-1.030)
[2023-07-18 02:45] LABS: Renal Epithelial <5 /HPF (None Seen); Specific Gravity 1.012 (1.005-1.030); Urine Bacteria 20-50 /HPF (<20); Urine Bilirubin NEGATIVE (Negative); Urine Blood Negative (Negative); Urine Clarity Turbid (Clear); Urine Color Light-Yellow (Yellow); Urine Glucose NEGATIVE (Negative); Urine Protein NEGATIVE (Negative); Urine RBC None Seen /HPF (None Seen); Urine Urobilinogen Normal (Normal)
[2023-07-18] MEDS ORDERED: DICYCLOMINE HCL 20 MG/2 ML AMP IM ONE (03:04)
[2023-07-18] MEDS ORDERED: METOCLOPRAMIDE 10 MG/2mL INJ ONE (03:04)
[2023-07-18] MEDS ORDERED: NA CHLORIDE 0.9% 1,000 ML ONE (03:04)
--- NOTE | 2023-07-18 03:44 | ER ---
Nurse's Notes [facility] Name: Ara Mercado Age: 38 yrs Sex: Female : 1985 Arrival Date: 07/18/2023 Time: 00:15 Bed 17 Private MD: Diagnosis: Low back pain;Musculoskeletal spinal pain, right paraspinal pain, elevated blood sugar Presentation: 07/18 00:49 Chief complaint: Patient states: back and right flank pain since 06/29 diagnosed with UTI kl reports took all antibiotics and is not better. Coronavirus screen: Vaccine status: Patient reports receiving the 2nd dose of the covid vaccine. Ebola Screen: Patient negative for fever greater than or equal to 101.5 degrees Fahrenheit, and additional compatible Ebola Virus Disease symptoms. Initial Sepsis Screen: Does the patient meet any 2 criteria? HR > 90 bpm. Does the patient have a suspected source of infection? Yes: Dysuria/Frequency/Urgency/UTI. Risk Assessment: Do you want to hurt yourself or someone else? Patient reports no desire to harm self or others. Onset of symptoms was June 29, 2023. 00:49 Method Of Arrival: Ambulatory 00:49 Acuity: CHARISSA 3 Triage Assessment: 00:55 General: Appears uncomfortable, Behavior is cooperative. Pain: Complains of pain in right flank. EENT: No deficits noted. Neuro: No deficits noted. Cardiovascular: No deficits noted. Respiratory: No deficits noted. GI: No deficits noted. GI: Reports nausea. : Reports pain urinary frequency. Historical: - Allergies: 00:52 Amoxicillin; 00:52 Bactrim; 00:52 Flagyl; 00:52 Morphine; kl 00:52 Toradol; 00:52 Tramadol HCl; kl - Home Meds: 00:52 Eliquis oral [Active]; gabapentin Oral [Active]; Lipitor [Active]; losartan [Active]; kl pantoprazole [Active]; Synthroid Oral [Active]; Unknown diuretic [Active]; - PMHx: 00:52 diabetes mellitus; Hypercholesterolemia; Hypertensive disorder; Hypothyroidism; NSTEMI; kl Right arm blood clot; - PSHx: 00:52 Cholecystectomy; kl - Immunization history:: Adult Immunizations not immunized. - Social history:: Smoking status: Patient reports the use of cigarette tobacco products, smokes one-half pack cigarettes per day. - Family history:: not pertinent. Screenin:12 [facility] ED Fall Risk Assessment (Adult) History of falling in the last 3 months, ha1 including since admission No falls in past 3 months (0 pts) Confusion or Disorientation No (0 pts) Intoxicated or Sedated No (0 pts) Impaired Gait No (0 pts) Mobility Assist Device Used No (0 pt) Altered Elimination No (0 pt) Score/Fall Risk Level 0 - 2 = Low Risk Oriented to surroundings, Maintained a safe environment, Educated pt \T\ family on fall prevention, incl call for assistance when getting out of bed. Abuse screen: Denies threats or abuse. Denies injuries from another. Nutritional screening: No deficits noted. Tuberculosis screening: No symptoms or risk factors identified. Assessment: 00:56 General: Appears uncomfortable, Behavior is calm, cooperative. Pain: Complains of pain ha1 in right low back Pain does not radiate. Pain currently is 10 out of 10 on a pain scale. Quality of pain is described as pressure, throbbing. Neuro: Level of Consciousness is awake, alert, obeys commands, Oriented to person, place, time, situation. Cardiovascular: Patient's skin is warm and dry. Respiratory: Airway is patent Respiratory effort is even, unlabored, Respiratory pattern is regular, symmetrical. GI: No signs and/or symptoms were reported involving the gastrointestinal system. Abdomen is round non-distended. : Urine is clear, Reports diagnosed with a UTI 30 days ago. Musculoskeletal: Circulation, motion, and sensation intact. 01:40 Reassessment: Patient and/or family updated on plan of care and expected duration. Pain ha1 level reassessed. Patient is alert, oriented x 3, equal unlabored respirations, skin warm/dry/pink. 02:08 Reassessment: Patient and/or family updated on plan of care and expected duration. Pain ha1 level reassessed. Patient is alert, oriented x 3, equal unlabored respirations, skin warm/dry/pink. Patient states feeling better. Patient states symptoms have improved. 02:43 Reassessment: going to CT. ha1 02:55 Reassessment: reports pain 8/10. Notified Dr. Barbara miller 03:35 Reassessment: Patient and/or family updated on plan of care and expected duration. Pain ha1 level reassessed. Patient is alert, oriented x 3, equal unlabored respirations, skin warm/dry/pink. Patient denies pain at this time. Patient states feeling better. Patient states symptoms have improved. Vital Signs: 00:49 BP 111 / 77; Pulse 104; Resp 16; Temp 98.1(O); Pulse Ox 100% on R/A; Weight 72.57 kg kl (R); Height 5 ft. 2 in. ; Pain 9/10; 01:40 BP 121 / 79; Pulse 102; Resp 18 S; Pulse Ox 98% on R/A; ha1 02:07 BP 121 / 81; Pulse 103; Resp 17 S; Pulse Ox 98% on R/A; ha1 03:00 BP 106 / 66; Pulse 102; Resp 18 S; Pulse Ox 100% on R/A; ha1 03:35 BP 108 / 69; Pulse 101; Resp 18 S; Pulse Ox 99% on R/A; ha1 00:49 Body Mass Index 29.26 (72.57 kg, 157.48 cm) 00:49 Pain Scale: Adult kl ED Course: 00:21 Patient arrived in ED. es 00:28 Jordan Archer MD is Attending Physician. sp4 00:52 Triage completed. kl 00:56 Patient has correct armband on for positive identification. Placed in gown. Bed in low ha1 position. Call light in reach. Side rails up X 1. 00:56 Arm band placed on right wrist. ha1 01:10 Missed attempt(s): 22 gauge in left antecubital area. ha1 01:15 Missed attempt(s): 22 gauge in left wrist. ha1 01:18 Jamaica Restrepo RN is Primary Nurse. ha1 01:42 Missed attempt(s): 22 gauge forearm. Bleeding controlled, band aid applied, catheter oe tip intact. 01:48 Inserted saline lock: 20 gauge in right wrist, using aseptic technique. Blood collected.oe 01:57 CBC with Diff Sent. oe 01:58 CMP Sent. oe 01:58 Urinalysis W/Microscopic Sent. oe 01:58 CRP Sent. oe 01:58 Test, Urine Sent. oe 03:02 CT Abd/Pelvis - Without Contrast In Process Unspecified. EDMS 03:59 No provider procedures requiring assistance completed. IV discontinued, intact, ha1 bleeding controlled, No redness/swelling at site. Pressure dressing applied. 04:00 Provided Education on: follow ups. ha1 Administered Medications: 01:43 Drug: Cyclobenzaprine PO 10 mg Route: PO; ha1 02:06 Follow up: Response: No adverse reaction ha1 01:45 Drug: Ondansetron IVP 4 mg Route: IVP; Site: right wrist; ha1 02:07 Follow up: Response: No adverse reaction ha1 01:48 Drug: fentaNYL (PF) IVP 100 mcg Route: IVP; Site: right wrist; ha1 02:07 Follow up: Response: No adverse reaction; Pain is decreased; RASS: Alert and Calm (0) ha1 02:45 Drug: NS 0.9% IV 1000 ml Route: IV; Rate: 1 bolus; Site: right wrist; ha1 03:57 Follow up: Response: No adverse reaction; IV Status: Completed infusion; IV Intake: ha1 1000ml 02:46 Drug: Dicyclomine IM 20 mg Route: IM; Site: right ventrogluteal; ha1 03:57 Follow up: Response: No adverse reaction ha1 02:48 Drug: metoCLOPramide IVP 10 mg Route: IVP; Site: right wrist; ha1 03:00 Follow up: Response: No adverse reaction ha1 03:05 Drug: fentaNYL (PF) IVP 100 mcg Route: IVP; Site: right wrist; ha1 03:35 Follow up: Response: No adverse reaction; Pain is decreased; RASS: Alert and Calm (0) ha1 Medication: 02:13 VIS not applicable for this client. ha1 Intake: 03:57 IV: 1000ml; Total: 1000ml. ha1 Outcome: 03:44 Discharge ordered by . sp4 03:59 Discharged to home ambulatory, with family. ha1 03:59 Condition: stable 03:59 Discharge instructions given to patient, family, Instructed on discharge instructions, follow up and referral plans. medication usage, Demonstrated understanding of instructions, follow-up care, medications, Prescriptions given X 2. 04:00 Patient left the ED. ha1 Signatures: Dispatcher [employer] Milla Smith RN RN kl Salyer, Edna es Espinosa, Orlando oe Ayala, Heidy, RN RN ha1 Potepalov, Sergey, MD MD sp4 Corrections: (The following items were deleted from the chart) 03:58 03:45 Reassessment: Patient and/or family updated on plan of care and expected ha1 duration. Pain level reassessed. Patient is alert, oriented x 3, equal unlabored respirations, skin warm/dry/pink. Patient denies pain at this time. Patient states feeling better. Patient states symptoms have improved. ha1
--- NOTE | 2023-07-18 03:45 | EDPHYS ---
Physician Documentation [facility] Name: Ara Mercado Age: 38 yrs Sex: Female : 1985 Arrival Date: 07/18/2023 Time: 00:15 Bed 17 Private MD: ED Physician Jordan Archer HPI: 07/18 00:28 This 38 yrs old Female presents to ER via Unassigned with complaints of Back sp4 Pain, Flank Pain. 00:36 38-year-old female presents with right lower back pain for the past 3 weeks. . sp4 01:44 Patient states she was here for the same complaint on 07/01/2023 and was treated for sp4 pain and sent home. Patient's pain has intensified she presents today with right lower back pain that is intense and has been worsening. Denied any other complaints such as vomiting or bladder pain. . Historical: - Allergies: 00:52 Amoxicillin; kl 00:52 Bactrim; kl 00:52 Flagyl; kl 00:52 Morphine; kl 00:52 Toradol; kl 00:52 Tramadol HCl; kl - Home Meds: 00:52 Eliquis oral [Active]; gabapentin Oral [Active]; Lipitor [Active]; losartan [Active]; kl pantoprazole [Active]; Synthroid Oral [Active]; Unknown diuretic [Active]; - PMHx: 00:52 diabetes mellitus; Hypercholesterolemia; Hypertensive disorder; Hypothyroidism; NSTEMI; kl Right arm blood clot; - PSHx: 00:52 Cholecystectomy; kl - Immunization history:: Adult Immunizations not immunized. - Social history:: Smoking status: Patient reports the use of cigarette tobacco products, smokes one-half pack cigarettes per day. - Family history:: not pertinent. ROS: 01:44 Constitutional: Negative for fever, chills, and weight loss, Back: Positive for right sp4 lower back pain.. 01:44 All other systems are negative. Exam: 01:44 Constitutional: This is a well developed, well nourished patient who is awake, alert, sp4 and in no acute distress. Head/Face: Normocephalic, atraumatic. Eyes: Pupils equal round and reactive to light, extra-ocular motions intact. Lids and lashes normal. Conjunctiva and sclera are not injected. Cornea within normal limits. Periorbital areas with no swelling, redness, or edema. ENT: Nares patent. No nasal discharge, no septal abnormalities noted. Tympanic membranes are normal and external auditory canals are clear. Oropharynx with no redness, swelling, or masses, exudates, or evidence of obstruction, uvula midline. Mucous membranes moist. Neck: Trachea midline, no thyromegaly or masses palpated, and no cervical lymphadenopathy. Supple, full range of motion without nuchal rigidity, or vertebral point tenderness. Chest/axilla: Normal chest wall appearance and motion. Nontender with no deformity. No lesions are appreciated. Cardiovascular: Regular rate and rhythm with a normal S1 and S2. No gallops, murmurs, or rubs. Normal PMI, no JVD. No pulse deficits. Respiratory: Lungs have equal breath sounds bilaterally, clear to auscultation and percussion. No rales, rhonchi or wheezes noted. No increased work of breathing, no retractions or nasal flaring. Abdomen/GI: Soft, non-tender, with normal bowel sounds. No distension or tympany. No guarding or rebound. No evidence of tenderness throughout. Back: No spinal tenderness. No costovertebral tenderness. Positive right lower paraspinal musculature tenderness Skin: Warm, dry with normal turgor. Normal color with no rashes, no lesions, and no evidence of cellulitis. MS/ Extremity: Pulses equal, no cyanosis. Neurovascular intact. Full, normal range of motion. Neuro: Awake and alert, GCS 15, oriented to person, place, time, and situation. Cranial nerves II-XII grossly intact. Motor strength 5/5 in all extremities. Sensory grossly intact. Psych: Awake, alert, with orientation to person, place and time. Behavior, mood, and affect are within normal limits Vital Signs: 00:49 BP 111 / 77; Pulse 104; Resp 16; Temp 98.1(O); Pulse Ox 100% on R/A; Weight 72.57 kg kl (R); Height 5 ft. 2 in. ; Pain 9/10; 01:40 BP 121 / 79; Pulse 102; Resp 18 S; Pulse Ox 98% on R/A; ha1 02:07 BP 121 / 81; Pulse 103; Resp 17 S; Pulse Ox 98% on R/A; ha1 03:00 BP 106 / 66; Pulse 102; Resp 18 S; Pulse Ox 100% on R/A; ha1 03:35 BP 108 / 69; Pulse 101; Resp 18 S; Pulse Ox 99% on R/A; ha1 00:49 Body Mass Index 29.26 (72.57 kg, 157.48 cm) kl 00:49 Pain Scale: Adult kl MDM: 00:31 Patient medically screened. sp4 03:29 ED course: CT abdomen - FINDINGS: LUNG BASES: Unremarkable. No mass. No consolidation. sp4 ABDOMEN: LIVER: Unremarkable. GALLBLADDER AND BILE DUCTS: Cholecystectomy. No ductal dilation. PANCREAS: Unremarkable. No ductal dilation. SPLEEN: Unremarkable. No splenomegaly. ADRENALS: Unremarkable. No mass. KIDNEYS AND URETERS: Unremarkable. No obstructing stones. No hydronephrosis. STOMACH AND BOWEL: Unremarkable. No obstruction. No mucosal thickening. PELVIS: APPENDIX: No findings to suggest acute appendicitis. BLADDER: Unremarkable. No stones. REPRODUCTIVE: IUD demonstrated within the endometrial cavity, in appropriate position. ABDOMEN and PELVIS: INTRAPERITONEAL SPACE: Unremarkable. No free air. No significant fluid collection. BONES/JOINTS: No acute fracture. No dislocation. SOFT TISSUES: Unremarkable. VASCULATURE: Bilateral intrapelvic phleboliths. No abdominal aortic aneurysm. LYMPH NODES: Unremarkable. No enlarged lymph nodes. IMPRESSION: 1. Allowing for lack of intravenous contrast, no acute abnormality within the abdomen or pelvis. 2. Cholecystectomy.. 03:37 Differential diagnosis: arthritis, Fatigue Fracture Joint Injury Myeloma Neoplasm sp4 Osteoporosis Pyelonephritis. Data reviewed: vital signs, nurses notes, lab test result(s), radiologic studies, CT scan. Consideration of Admission/Observation Escalation of care including admission/observation considered. ED course: There is no emergency found on CT abdomen pelvis. Patient has elevated CRP and elevated white count no sign of emergent inflammatory problem on his CT abdomen pelvis. No sign of spinal problems. Neurologic exam is normal, gait is normal. Patient has right paraspinal muscular tenderness. Patient was advised to take Flexeril, Naprosyn, Tylenol as well. Advised to control her Diabetes. . 07/18 00:35 Order name: CBC with Diff; Complete Time: 02:29 sp4 07/18 00:35 Order name: CMP; Complete Time: 02:37 sp4 07/18 00:35 Order name: Urinalysis W/Microscopic; Complete Time: 03:27 sp4 08/25 00:35 Order name: CRP; Complete Time: 02:37 sp4 07/18 00:36 Order name: Test, Urine; Complete Time: 03:27 sp4 07/18 00:36 Order name: CT Abd/Pelvis - Without Contrast sp4 07/18 00:35 Order name: Saline Lock; Complete Time: 02:05 sp4 Administered Medications: 01:43 Drug: Cyclobenzaprine PO 10 mg Route: PO; ha1 02:06 Follow up: Response: No adverse reaction ha1 01:45 Drug: Ondansetron IVP 4 mg Route: IVP; Site: right wrist; ha1 02:07 Follow up: Response: No adverse reaction ha1 01:48 Drug: fentaNYL (PF) IVP 100 mcg Route: IVP; Site: right wrist; ha1 02:07 Follow up: Response: No adverse reaction; Pain is decreased; RASS: Alert and Calm (0) ha1 02:45 Drug: NS 0.9% IV 1000 ml Route: IV; Rate: 1 bolus; Site: right wrist; ha1 03:57 Follow up: Response: No adverse reaction; IV Status: Completed infusion; IV Intake: ha1 1000ml 02:46 Drug: Dicyclomine IM 20 mg Route: IM; Site: right ventrogluteal; ha1 03:57 Follow up: Response: No adverse reaction ha1 02:48 Drug: metoCLOPramide IVP 10 mg Route: IVP; Site: right wrist; ha1 03:00 Follow up: Response: No adverse reaction ha1 03:05 Drug: fentaNYL (PF) IVP 100 mcg Route: IVP; Site: right wrist; ha1 03:35 Follow up: Response: No adverse reaction; Pain is decreased; RASS: Alert and Calm (0) ha1 Disposition Summary: 07/18/23 03:44 Discharge Ordered Location: Home sp4 Problem: new sp4 Symptoms: have improved sp4 Condition: Stable sp4 Diagnosis - Low back pain sp4 - Musculoskeletal spinal pain, right paraspinal pain, elevated blood sugar sp4 Followup: sp4 - With: Private Physician - When: 10 - 14 days - Reason: Recheck today's complaints Discharge Instructions: - Discharge Summary Sheet sp4 - Acute Back Pain, Adult sp4 Forms: - Patient Portal Instructions sp4 Prescriptions: - naproxen 500 mg Oral tablet - take 1 tablet by ORAL route every 12 hours; 60 tablet; Refills: 0, Product sp4 Selection Permitted - Cyclobenzaprine 10 mg Oral Tablet - take 1 tablet by ORAL route every 8 hours As needed; 30 tablet; Refills: 0, sp4 Product Selection Permitted Signatures: Dispatcher [employer] Milla Smith RN RN kl Ayala, Heidy, RN RN 1 Jordan Archer MD MD sp4
[2023-07-18 04:25] VITALS: TEMP 98.1
[2023-07-18 04:29] VITALS: BP 108/69; O2SAT 99
--- NOTE | 2023-07-18 15:37 | RAD REPORT ---
EXAM DESCRIPTION: CT Abdomen and Pelvis Without Intravenous Contrast CLINICAL HISTORY: The patient is 38 years old and is Female; acute right lower back pain [facility] M AIN TECHNIQUE: Axial computed tomography images of the abdomen and pelvis without intravenous contrast. Sagittal and coronal reformatted images were created and reviewed. This CT exam was performed usi ng one or more of the following dose reduction techniques: automated exposure control, adjustment o f the mA and/or kV according to patient size, and/or use of iterative reconstruction technique. COMPARISON: 05/10/2023 CT abdomen pelvis without contrast FINDINGS: LUNG BASES: Unremarkable. No mass. No consolidation. ABDOMEN: LIVER: Unremarkable. GALLBLADDER AND BILE DUCTS: Cholecystectomy. No ductal dilation. PANCREAS: Unremarkable. No ductal dilation. SPLEEN: Unremarkable. No splenomegaly. ADRENALS: Unremarkable. No mass. KIDNEYS AND URETERS: Unremarkable. No obstructing stones. No hydronephrosis. STOMACH AND BOWEL: Unremarkable. No obstruction. No mucosal thickening. PELVIS: APPENDIX: No findings to suggest acute appendicitis. BLADDER: Unremarkable. No stones. REPRODUCTIVE: IUD demonstrated within the endometrial cavity, in appropriate position. ABDOMEN and PELVIS: INTRAPERITONEAL SPACE: Unremarkable. No free air. No significant fluid collection. BONES/JOINTS: No acute fracture. No dislocation. SOFT TISSUES: Unremarkable. VASCULATURE: Bilateral intrapelvic phleboliths. No abdominal aortic aneurysm. LYMPH NODES: Unremarkable. No enlarged lymph nodes. IMPRESSION: 1. Allowing for lack of intravenous contrast, no acute abnormality within the abdomen or pelvis. 2. Cholecystectomy. Electronically signed by: Syd Romero MD 07/18/2023 3:18 AM CDT Due to temporary technical issues with the PACS/Fluency reporting system, reports are being signed by the in house radiologists without review as a courtesy to insure prompt reporting. The interpreting radiologist is fully responsible for the content of the report.
== END 2023-07-18 04:00 | disposition home or self-care (01) ==
LOC: ER 00:15
DX: M54.50 Low back pain, unspecified (principal); M54.9 Dorsalgia, unspecified; E11.9 Type 2 diabetes mellitus without complications; F17.210 Nicotine dependence, cigarettes, uncomplicated
CPT/HCPCS: 36415; 74176; 80053; 81001; 81025; 85025; 86140; 96361; 96372; 96374; 96375; 99284; J0500; J2405; J2765; J3010; J7030

== ENCOUNTER 2023-10-18 12:24 | Emergency (ER) | payer SELFPAY ==
[2023-10-18 13:09] LABS: Specific Gravity 1.014 (1.005-1.030)
[2023-10-18 13:11] LABS: Specific Gravity 1.014 (1.005-1.030); Urine Bacteria 20-50 /HPF (<20); Urine Bilirubin NEGATIVE (Negative); Urine Blood Trace (Negative); Urine Clarity Turbid (Clear); Urine Color Light-Yellow (Yellow); Urine Glucose NEGATIVE (Negative); Urine Protein 1+ (Negative); Urine Urobilinogen Normal (Normal)
[2023-10-18] MEDS ORDERED: ONDANSETRON 4 MG (ODT) TAB ONE (14:09)
--- NOTE | 2023-10-18 14:13 | ER ---
Nurse's Notes [facility] Name: Ara Mercado Age: 38 yrs Sex: Female : 1985 Arrival Date: 10/18/2023 Time: 12:24 Bed 15 Private MD: None, None Diagnosis: Urinary tract infection Presentation: 10/18 12:34 Chief complaint:. Chief complaint: Patient states: having nausea and vomiting for 2 ko1 weeks, no diarrhea except one episode, possible fever. Has history of recurrent UTI, no burning when peeing but there is a smell. Coronavirus screen: At this time, the client does not indicate any symptoms associated with coronavirus-19. Ebola Screen: No symptoms or risks identified at this time. Initial Sepsis Screen: Does the patient meet any 2 criteria? No. Patient's initial sepsis screen is negative. Does the patient have a suspected source of infection? No. Patient's initial sepsis screen is negative. Risk Assessment: Do you want to hurt yourself or someone else? Patient reports no desire to harm self or others. Onset of symptoms. 12:34 Method Of Arrival: Ambulatory ko1 12:34 Acuity: CHARISSA 3 ko1 Triage Assessment: 12:39 General: Appears ill, Behavior is calm, cooperative, appropriate for age. Pain: ko1 Complains of pain in left flank and back. GI: Reports nausea, vomiting, since 2 weeks. 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 - Social history:: Smoking status: Patient reports the use of cigarette tobacco products, smokes one-half pack cigarettes per day. Screenin:21 [facility] ED Fall Risk Assessment (Adult) History of falling in the last 3 months, cm10 including since admission No falls in past 3 months (0 pts) Confusion or Disorientation No (0 pts) Intoxicated or Sedated No (0 pts) Impaired Gait No (0 pts) Mobility Assist Device Used No (0 pt) Altered Elimination No (0 pt) Score/Fall Risk Level 0 - 2 = Low Risk Oriented to surroundings, Maintained a safe environment, Hourly rounding (assess needs \T\ fall precautionary measures) done. Abuse screen: Denies threats or abuse. Denies injuries from another. Nutritional screening: No deficits noted. Tuberculosis screening: No symptoms or risk factors identified. Assessment: 13:21 General: Appears in no apparent distress. ill, Behavior is calm, cooperative. Pain: cm10 Complains of pain in back. Neuro: No deficits noted. Cantu Agitation-Sedation Scale (RASS): 0 - Alert and Calm Level of Consciousness is awake, alert, obeys commands, Oriented to person, place, time, situation, Appropriate for age. Cardiovascular: No deficits noted. Patient's skin is warm and dry. Respiratory: No deficits noted. Airway is patent Respiratory effort is even, unlabored, Respiratory pattern is regular, symmetrical. GI: Abdomen is obese, Reports nausea, vomiting. : Reports urine has foul odor. EENT: No deficits noted. No signs and/or symptoms were reported regarding the EENT system. Derm: No deficits noted. No signs and/or symptoms reported regarding the dermatologic system. Skin is intact, Skin is pink, warm \T\ dry. Vital Signs: 12:34 BP 155 / 90; Pulse 94; Resp 16; Temp 98.7; Pulse Ox 100% ; Weight 75.75 kg; Height 5 ko1 ft. 2 in. ; 14:14 BP 139 / 77; Pulse 90; Resp 18; Pulse Ox 100% on R/A; cm10 12:34 Body Mass Index 30.54 (75.75 kg, 157.48 cm) ko1 ED Course: 12:25 Patient arrived in ED. as 12:26 Scott Mcbride MD is Attending Physician. sp3 12:26 None, None is Private Physician. as 12:39 Triage completed. ko1 12:39 Arm band placed on left wrist. Patient placed in an exam room, on a stretcher, on pulse ko1 oximetry, Patient notified of wait time. 13:21 Patient has correct armband on for positive identification. Bed in low position. Call cm10 light in reach. Provided Education on: ER process and procedures. . Pulse ox on. NIBP on. 13:21 No provider procedures requiring assistance completed. cm10 14:23 Patient did not have IV access during this emergency room visit. cm10 Administered Medications: 13:58 Drug: Ondansetron Oral Disintegrating Tablet Oral Disintegrating Tablet 4 mg PO once cm10 Route: PO; 14:23 Follow up: Response: No adverse reaction cm10 14:23 Drug: Acetaminophen-Codeine PO (300 mg-30 mg) 2 tabs PO once; RASS on ADMIN: Combtv4, cm10 Very Agttd3, Agttd2, Rstlss1, AlertClm0, Drwsy-1, Lt Sdtn-2, Mod Sdtn-3, Dp Sdtn-4, UnArsble-5 Route: PO; 14:23 Follow up: Response: No adverse reaction cm10 14:23 Drug: LevOfloxacin PO 500 mg PO once Route: PO; cm10 14:23 Follow up: Response: No adverse reaction cm10 Medication: 13:21 VIS not applicable for this client. cm10 Outcome: 14:13 Discharge ordered by MD. gentile 14:23 Discharged to home ambulatory, with family, cm10 14:23 Condition: good 14:23 Discharge instructions given to patient, Instructed on discharge instructions, follow up and referral plans. medication usage, Demonstrated understanding of instructions, follow-up care, medications, Prescriptions given X 1, 14:24 Patient left the ED. cm10 Addendum: 10/21/2023 15:42 Addendum: Culture Results: Positive urine culture. Phone call Attempt #1 left a . k b3 19:35 Addendum: Culture Results: Positive urine culture. Prescription called-in to pharmacy k b3 of choice. Naya Foreman. Signatures: Mary Land Setul, MD MD sp3 Erica Forbes, RN RN kb3 Laura Peña RN RN ko1 Joceline Land RN RN cm10
--- NOTE | 2023-10-18 14:13 | EDPHYS ---
Physician Documentation [facility] Name: Ara Mercado Age: 38 yrs Sex: Female : 1985 Arrival Date: 10/18/2023 Time: 12:24 Bed 15 Private MD: None, None ED Physician Scott Mcbride HPI: 10/18 13:03 This 38 yrs old Female presents to ER via Ambulatory with complaints of sp3 Nausea/Vomiting, Flank Pain. 13:03 38-year-old female with history of diabetes, gastroparesis, hyperlipidemia, sp3 hypertension, prior UTI now presents to the ED again for urinary symptoms and dysuria and nausea. She denies any fever, abdominal pain, chest pain, shortness of breath, syncope, near syncope, URI symptoms, or any other signs or symptoms on ROS at this time.. 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 - Social history:: Smoking status: Patient reports the use of cigarette tobacco products, smokes one-half pack cigarettes per day. ROS: 13:04 Constitutional: Negative for fever, chills, and weight loss, Eyes: Negative for injury, sp3 pain, redness, and discharge, ENT: Negative for injury, pain, and discharge, Neck: Negative for injury, pain, and swelling, Cardiovascular: Negative for chest pain, palpitations, and edema, Respiratory: Negative for shortness of breath, cough, wheezing, and pleuritic chest pain, MS/Extremity: Negative for injury and deformity, Skin: Negative for injury, rash, and discoloration, Neuro: Negative for headache, weakness, numbness, tingling, and seizure, Psych: Negative for depression, anxiety, suicide ideation, homicidal ideation, and hallucinations, Allergy/Immunology: Negative for hives, rash, and allergies, Endocrine: Negative for neck swelling, polydipsia, polyuria, polyphagia, and marked weight changes, 13:04 All other systems are negative, Exam: 13:04 Constitutional: This is a well developed, well nourished patient who is awake, alert, sp3 and in no acute distress. Head/Face: Normocephalic, atraumatic. Eyes: Pupils equal round and reactive to light, extra-ocular motions intact. Lids and lashes normal. Conjunctiva and sclera are non-icteric and not injected. Cornea within normal limits. Periorbital areas with no swelling, redness, or edema. ENT: Nares patent. No nasal discharge, no septal abnormalities noted. External auditory canals are clear. Oropharynx with no redness, swelling, or masses, exudates, or evidence of obstruction, uvula midline. Mucous membranes moist. Neck: Trachea midline, no thyromegaly or masses palpated, and no cervical lymphadenopathy. Supple, full range of motion without nuchal rigidity, or vertebral point tenderness. No Meningismus. Chest/axilla: Normal chest wall appearance and motion. Nontender with no deformity. No lesions are appreciated. Cardiovascular: Regular rate and rhythm with a normal S1 and S2. No gallops, murmurs, or rubs. Normal PMI, no JVD. No pulse deficits. Respiratory: Lungs have equal breath sounds bilaterally, clear to auscultation and percussion. No rales, rhonchi or wheezes noted. No increased work of breathing, no retractions or nasal flaring. Abdomen/GI: Soft, non-tender, with normal bowel sounds. No distension or tympany. No guarding or rebound. No evidence of tenderness throughout. Back: No spinal tenderness. No costovertebral tenderness. Full range of motion. Skin: Warm, dry with normal turgor. Normal color with no rashes, no lesions, and no evidence of cellulitis. MS/ Extremity: Pulses equal, no cyanosis. Neurovascular intact. Full, normal range of motion. Neuro: Awake and alert, GCS 15, oriented to person, place, time, and situation. Cranial nerves II-XII grossly intact. Motor strength 5/5 in all extremities. Sensory grossly intact. Cerebellar exam normal. Normal gait. Psych: Awake, alert, with orientation to person, place and time. Behavior, mood, and affect are within normal limits. Vital Signs: 12:34 BP 155 / 90; Pulse 94; Resp 16; Temp 98.7; Pulse Ox 100% ; Weight 75.75 kg; Height 5 ko1 ft. 2 in. ; 14:14 BP 139 / 77; Pulse 90; Resp 18; Pulse Ox 100% on R/A; cm10 12:34 Body Mass Index 30.54 (75.75 kg, 157.48 cm) ko1 MDM: 12:50 Patient medically screened. sp3 13:04 Data reviewed: vital signs, nurses notes, lab test result(s). ED course: 38-year-old sp3 female with PMH above now with dysuria and urinary symptoms coupled with nausea. Patient is a multiple visits in the past for the same thing and has had prior UTIs. Patient is not having any active emesis in the ED and her vital signs are completely normal. Will obtain UA and hCG and treat accordingly. I do not believe IV fluids or IV medications are currently indicated at this time. Patient has a nonsurgical abdomen. 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 14:12 ED course: Urinalysis demonstrates positive UTI. Patient continues to not have any sp3 emesis while in the ED and her vital signs are normal. We will give her Levaquin p.o., Tylenol 3 p.o. and Zofran ODT x1 in the ED prior to discharge as her first dose of medications. Patient will go home on p.o. Levaquin and follow-up with her PCP.. 10/18 12:50 Order name: UAM; Complete Time: 14:09 sp3 10/18 12:50 Order name: Test, Urine; Complete Time: 14:09 sp3 10/18 13:14 Order name: Urine Culture EDMS Administered Medications: 13:58 Drug: Ondansetron Oral Disintegrating Tablet Oral Disintegrating Tablet 4 mg PO once cm10 Route: PO; 14:23 Follow up: Response: No adverse reaction cm10 14:23 Drug: Acetaminophen-Codeine PO (300 mg-30 mg) 2 tabs PO once; RASS on ADMIN: Combtv4, cm10 Very Agttd3, Agttd2, Rstlss1, AlertClm0, Drwsy-1, Lt Sdtn-2, Mod Sdtn-3, Dp Sdtn-4, UnArsble-5 Route: PO; 14:23 Follow up: Response: No adverse reaction cm10 14:23 Drug: LevOfloxacin PO 500 mg PO once Route: PO; cm10 14:23 Follow up: Response: No adverse reaction cm10 Disposition Summary: 10/18/23 14:13 Discharge Ordered Notes: Location: Home sp3 Condition: Stable sp3 Diagnosis - Urinary tract infection sp3 Followup: sp3 - With: Private Physician - When: Upon discharge from the Emergency Department - Reason: Continuance of care Discharge Instructions: - Discharge Summary Sheet sp3 - Urinary Tract Infection, Adult sp3 Forms: - Medication Reconciliation Form sp3 - Thank You Letter sp3 - Antibiotic Education sp3 - Prescription Opioid Use sp3 - Patient Portal Instructions sp3 - Leadership Thank You Letter sp3 Prescriptions: - levofloxacin 500 mg Oral tablet - take 1 tablet ORAL route once daily for 7 days; 7 tablet; Refills: 0, Product sp3 Selection Permitted Signatures: Dispatcher [employer] Scott Perez MD MD sp3 Reyna Baca RN RN eh3 Laura Peña RN RN ko1 Joceline Land, RN RN cm10
[2023-10-18 14:28] VITALS: TEMP 98.7; O2SAT 100
[2023-10-18 14:29] VITALS: BP 139/77
[2023-10-18] MEDS ORDERED: levoFLOXacin 250 MG TAB ONE (14:29)
[2023-10-18] MEDS ORDERED: CODEINE 30MG/APAP 300MG TAB ONE (14:30)
== END 2023-10-18 14:24 | disposition home or self-care (01) ==
LOC: ER 12:24
DX: N39.0 Urinary tract infection, site not specified (principal)
CPT/HCPCS: 81001; 81025; 87077; 87086; 87088; 87186; 99283; Q0162

== ENCOUNTER → 2023-11-19 | Emergency (ER) | payer SELFPAY ==
[~2023-11-19] MED LIST: CEFTRIAXONE 1000 MG/VIAL ONE; HYDROCODONE/APAP 5/325 MG TAB ONE; NA CHLORIDE 0.9% 50 ML ONE
[2023-11-19 17:08] LABS: Specific Gravity 1.012 (1.005-1.030)
[2023-11-19 17:13] LABS: Specific Gravity 1.012 (1.005-1.030); Urine Bacteria >50 /HPF (<20); Urine Bilirubin NEGATIVE (Negative); Urine Blood 1+ (Negative); Urine Clarity Extremely Turbid (Clear); Urine Color Light-Yellow (Yellow); Urine Glucose NEGATIVE (Negative); Urine Protein 1+ (Negative); Urine RBC <5 /HPF (None Seen); Urine Urobilinogen Normal (Normal)
[2023-11-19 17:17] LABS: Absolute Lymphocytes (CBC) 2.4 K/uL (0.7-4.9); Hematocrit 42.1 % (36.0-45.0); Lymphocytes % 22.3 % (15.3-44.8); MCV 93.5 fL (80-100); MPV 7.9 fL (7.6-11.3); Platelets 351 thou/uL (152-406)
--- NOTE | 2023-11-19 17:33 | RAD REPORT ---
EXAM DESCRIPTION: CT - Spine Lumbar Wo Con - 11/19/2023 5:22 pm CLINICAL HISTORY: Radiculopathy. uti and injury;Lower back pain;Pain COMPARISON: No comparisons TECHNIQUE: Axial noncontrast CT imaging of the lumbar spine was performed with coronal and sagittal re-formatted images. All CT scans are performed using dose optimization technique as appropriate and may include automated exposure control or mA/KV adjustment according to patient size. FINDINGS: No acute lumbar spine fracture seen. No aggressive marrow pattern or malalignment. Paraspinal tissues are normal in thickness. No paraspinal abscess or hematoma seen. Prominent calcified disc protrusion at L5-S1 along the left paracentral location. Mild posterior disc bulge also noted L3-4 and L4-5. Moderate canal stenosis suspected L5-S1. IMPRESSION: No acute lumbar spine abnormality detected. Moderate L5-S1 spondylosis as detailed.
--- NOTE | 2023-11-19 17:48 | RAD REPORT ---
EXAM DESCRIPTION: US - Extrem Venous W Compress Yony - 11/19/2023 5:42 pm CLINICAL HISTORY: SWELLING Bilateral leg edema and swelling. COMPARISON: UPPER EXTREMITY VENOUS UNILATE dated 08/24/2023 TECHNIQUE: Real-time sonographic interrogation of the left and right lower extremity deep venous sys tems was performed. FINDINGS: Normal compressibility, flow augmentation, phasic flow and spontaneous flow is identified in both the left and right lower extremity deep venous systems. IMPRESSION: No sonographic evidence of left or right lower extremity deep venous thrombosis.
[2023-11-19 18:53] LABS: Albumin 3.1 g/dL (3.4-5.0); Bilirubin Total 0.4 mg/dL (0.2-1.0); Protein, Total 7.5 g/dL (6.4-8.2)
[2023-11-19 19:02] LABS: Potassium 4.2 mEq/L (3.5-5.1)
--- NOTE | 2023-11-19 19:17 | EDPHYS ---
Physician Documentation [facility] Name: Ara Mercado Age: 38 yrs Sex: Female : 1985 Arrival Date: 11/19/2023 Time: 15:16 Bed 8 Private MD: ED Physician John Saleh HPI: 11/19 16:19 This 38 yrs old Female presents to ER via Ambulatory with complaints of Back Pain, Feet sb4 Swelling, UTI. 16:59 Patient comes in with multiple complaints today. First states that she believes she has sb4 another UTI, she was initially taking Macrobid and then switched to some unknown cephalosporin. She states that she also injured her lower back yesterday and on top of that her bilateral feet have been intermittently swollen and painful. She does have a history of DVT in which she does not take any anticoagulants. Historical: - Allergies: 15:41 Amoxicillin; hb 15:41 Bactrim; hb 15:41 Flagyl; hb 15:41 Morphine; hb 15:41 Toradol; hb 15:41 Tramadol HCl; hb - PMHx: 15:41 diabetes mellitus; Gastroparesis; Hypercholesterolemia; Hypertensive disorder; hb Hypothyroidism; kidney disease; neuropathy; NSTEMI; Right arm blood clot; - PSHx: 15:41 Cholecystectomy; hb - Immunization history:: Adult Immunizations up to date. - Social history:: Smoking status: Patient reports the use of cigarette tobacco products, smokes one-half pack cigarettes per day. ROS: 16:59 Constitutional: Negative for fever, chills, and weight loss, sb4 16:59 Back: Positive for injury or acute deformity, pain at rest, of the lumbar area, 16:59 : Positive for urinary symptoms, 16:59 MS/extremity: Positive for swelling, of the right foot and left foot, 16:59 All other systems are negative, Exam: 16:59 Constitutional: This is a well developed, well nourished patient who is awake, alert, sb4 and in no acute distress. Head/Face: Normocephalic, atraumatic. Eyes: Extra-ocular motions intact. Periorbital areas with no swelling, redness, or edema. ENT: Mucous membranes moist. Cardiovascular: Regular rate and rhythm with a normal S1 and S2. Respiratory: Lungs have equal breath sounds bilaterally, clear to auscultation and percussion. No rales, rhonchi or wheezes noted. No increased work of breathing, no retractions or nasal flaring. Abdomen/GI: Soft, non-tender, no distension. Back: No spinal tenderness. No costovertebral tenderness. Full range of motion. Skin: Warm, dry with normal turgor. Normal color with no rashes, no lesions, and no evidence of cellulitis. MS/ Extremity: Pulses equal, no cyanosis. Neurovascular intact. Full, normal range of motion. Neuro: Awake and alert, GCS 15, oriented to person, place, time, and situation. Motor strength 5/5 in all extremities. Sensory grossly intact. Vital Signs: 15:39 BP 170 / 102; Pulse 88; Resp 16; Temp 99.4(TE); Pulse Ox 100% on R/A; Weight 74.84 kg; hb Height 5 ft. 2 in. ; Pain 9/10; 19:16 BP 148 / 78; Pulse 71; Resp 18; Temp 98; Pulse Ox 99% on R/A; ph 15:39 Body Mass Index 30.18 (74.84 kg, 157.48 cm) hb 15:39 Pain Scale: Adult hb MDM: 15:38 Patient medically screened. sb4 16:59 Differential diagnosis: UTI, pyelo, back strain, sciatica, DVT. sb4 19:15 Data reviewed: vital signs, nurses notes, lab test result(s), radiologic studies, and sb4 as a result, I will discharge patient. Consideration of Admission/Observation Escalation of care including admission/observation considered. Care significantly affected by the following chronic conditions: Diabetes, Hypertension. Counseling: I had a detailed discussion with the patient and/or guardian regarding the historical points, exam findings, and any diagnostic results supporting the discharge/admit diagnosis, lab results, radiology results, the need for outpatient follow up, a urologist, to return to the emergency department if symptoms worsen or persist or if there are any questions or concerns that arise at home. 19:18 External Records Reviewed: Outpatient labs: prior urine culture and sensitivity. sb4 11/19 15:42 Order name: CBC with Diff; Complete Time: 17:20 sb4 11/19 15:42 Order name: CMP; Complete Time: 19:05 sb4 11/19 15:42 Order name: Lipase; Complete Time: 19:05 sb4 11/19 15:42 Order name: Test, Urine; Complete Time: 17:11 sb4 11/19 15:42 Order name: Urinalysis w/ reflexes; Complete Time: 17:14 sb4 11/19 19:01 Order name: Glucose, Ancillary Testing; Complete Time: 19:02 EDMS 11/19 15:42 Order name: Extrem Venous W Compression Yony US; Complete Time: 17:50 sb4 11/19 15:42 Order name: CT Lumbar Spine Wo Con; Complete Time: 17:36 sb4 11/19 15:42 Order name: IV Saline Lock; Complete Time: 18:21 sb4 11/19 15:42 Order name: Labs collected and sent; Complete Time: 17:14 sb4 11/19 17:27 Order name: Labs - recollect needed: CBC and Chem- hemolyzed; Complete Time: 18:21 mc5 Administered Medications: 18:56 Drug: HYDROcodone-acetaminophen PO 5 mg-325 mg 2 tabs PO once Route: PO; ph 19:17 Follow up: Response: No adverse reaction ph 19:14 Drug: Rocephin IV 1 grams IV at calculated rate once; Given slow IV push per pharmacy ph instructions Route: IV; Rate: calculated rate; Site: left forearm; 19:17 Follow up: Response: No adverse reaction; IV Status: Completed infusion ph Disposition Summary: 11/19/23 19:16 Discharge Ordered Notes: Location: Home sb4 Problem: new sb4 Symptoms: have improved sb4 Condition: Stable sb4 Diagnosis - UTI/ Urinary tract infection, site not specified sb4 - Strain of muscle, fascia and tendon of lower back, initial encounter sb4 Followup: sb4 - With: Warner Bingham MD - When: 2 - 3 days - Reason: Further diagnostic work-up, Recheck today's complaints, Re-evaluation by your physician Discharge Instructions: - Discharge Summary Sheet sb4 - Lumbosacral Strain sb4 - Urinary Tract Infection, Adult, [id number] sb4 Forms: - Medication Reconciliation Form sb4 - Thank You Letter sb4 - Antibiotic Education sb4 - Prescription Opioid Use sb4 - Patient Portal Instructions sb4 - Leadership Thank You Letter sb4 Prescriptions: - Macrobid 100 mg Oral Capsule - take 1 capsule ORAL route every 12 hours for 10 days; 20 capsule; Refills: 0, sb4 Product Selection Permitted - Cyclobenzaprine 10 mg Oral Tablet - take 1 tablet ORAL route every 8 hours As needed; 30 tablet; Refills: 0, sb4 Product Selection Permitted - cefpodoxime 100 mg Oral Tablet - take 1 tablet ORAL route every 12 hours for 10 days take with food; 20 tablet; sb4 Refills: 0, Product Selection Permitted Addendum: 11/21/2023 07:14 I was immediately available for consultation during this patient's visit. I did not e c2 personally see the patient or guide the patient's care. . Signatures: Dispatcher [employer] Malini Walls, VÍCTOR RN Idalmis Villaseñor RN RN hb Brown, Sophia, PA-C PA-C sb4 Sallie Jeong 5 John Saleh MD MD ec2
--- NOTE | 2023-11-19 19:17 | ER ---
Nurse's Notes [facility] Name: Ara Mercado Age: 38 yrs Sex: Female : 1985 Arrival Date: 11/19/2023 Time: 15:16 Bed 8 Private MD: Diagnosis: UTI/ Urinary tract infection, site not specified;Strain of muscle, fascia and tendon of lower back, initial encounter Presentation: 11/19 15:39 Chief complaint: Back pain after mechanical fall from standing yesterday, pain with hb urination x 2 weeks, and BLE swelling x 3 days.. Coronavirus screen: At this time, the client does not indicate any symptoms associated with coronavirus-19. Ebola Screen: No symptoms or risks identified at this time. Initial Sepsis Screen: Does the patient meet any 2 criteria? No. Patient's initial sepsis screen is negative. Does the patient have a suspected source of infection? No. Patient's initial sepsis screen is negative. Risk Assessment: Do you want to hurt yourself or someone else? Patient reports no desire to harm self or others. Onset of symptoms was November 05, 2023. 15:39 Method Of Arrival: Ambulatory hb 15:39 Acuity: CHARISSA 3 hb Historical: - Allergies: 15:41 Amoxicillin; hb 15:41 Bactrim; hb 15:41 Flagyl; hb 15:41 Morphine; hb 15:41 Toradol; hb 15:41 Tramadol HCl; hb - PMHx: 15:41 diabetes mellitus; Gastroparesis; Hypercholesterolemia; Hypertensive disorder; hb Hypothyroidism; kidney disease; neuropathy; NSTEMI; Right arm blood clot; - PSHx: 15:41 Cholecystectomy; hb - Immunization history:: Adult Immunizations up to date. - Social history:: Smoking status: Patient reports the use of cigarette tobacco products, smokes one-half pack cigarettes per day. Screenin:14 [facility] ED Fall Risk Assessment (Adult) History of falling in the last 3 months, ph including since admission No falls in past 3 months (0 pts). Abuse screen: Denies threats or abuse. Denies injuries from another. Nutritional screening: No deficits noted. Tuberculosis screening: No symptoms or risk factors identified. Assessment: 18:00 General: Appears in no apparent distress. uncomfortable, Behavior is calm, cooperative, ph appropriate for age. Pain: Complains of pain in coccyx. Neuro: Level of Consciousness is awake, alert, obeys commands, Oriented to person, place, time, situation. Cardiovascular: Capillary refill < 3 seconds in bilateral fingers Patient's skin is warm and dry. Cardiovascular: Edema is 1+ to left ankle, left foot, right ankle and right foot. Respiratory: Airway is patent Respiratory effort is even, unlabored, Respiratory pattern is regular, symmetrical. : Reports burning with urination. Derm: Skin is pink, warm \T\ dry. 19:30 Reassessment: Patient and/or family updated on plan of care and expected duration. Pain ha1 level reassessed. Patient is alert, oriented x 3, equal unlabored respirations, skin warm/dry/pink. Patient states feeling better. Patient states symptoms have improved. Vital Signs: 15:39 BP 170 / 102; Pulse 88; Resp 16; Temp 99.4(TE); Pulse Ox 100% on R/A; Weight 74.84 kg; hb Height 5 ft. 2 in. ; Pain 9/10; 19:16 BP 148 / 78; Pulse 71; Resp 18; Temp 98; Pulse Ox 99% on R/A; ph 15:39 Body Mass Index 30.18 (74.84 kg, 157.48 cm) hb 15:39 Pain Scale: Adult hb ED Course: 15:18 Patient arrived in ED. mg5 15:20 Pavithra Ocasio PA-C is PHCP. sb4 15:20 John Saleh MD is Attending Physician. sb4 15:41 Triage completed. hb 15:42 Arm band placed on. hb 16:07 Malini Baca, RN is Primary Nurse. ph 17:00 Test, Urine Sent. zm 17:00 Urinalysis w/ reflexes Sent. zm 17:12 Initial lab(s) drawn, by me, sent to lab. Missed attempt(s): 22 gauge in left ph antecubital area. Bleeding controlled, band aid applied, catheter tip intact. Missed attempt(s): 24 gauge in left antecubital area. Bleeding controlled, band aid applied, catheter tip intact. 17:24 CT Lumbar Spine Wo Con In Process Unspecified. EDMS 17:43 Extrem Venous W Compression Yony US In Process Unspecified. EDMS 19:14 Patient has correct armband on for positive identification. Bed in low position. Call light in reach. Side rails up X2. Pulse ox on. NIBP on. Door closed. Noise minimized. Warm blanket given. 19:16 Warner Bingham MD is Referral Physician. sb4 19:30 No provider procedures requiring assistance completed. IV discontinued, intact, ha1 bleeding controlled, No redness/swelling at site. Pressure dressing applied. 19:31 Provided Education on: need to follow up with urology . ha1 Administered Medications: 18:56 Drug: HYDROcodone-acetaminophen PO 5 mg-325 mg 2 tabs PO once Route: PO; ph 19:17 Follow up: Response: No adverse reaction ph 19:14 Drug: Rocephin IV 1 grams IV at calculated rate once; Given slow IV push per pharmacy ph instructions Route: IV; Rate: calculated rate; Site: left forearm; 19:17 Follow up: Response: No adverse reaction; IV Status: Completed infusion ph Medication: 19:15 VIS not applicable for this client. ph Outcome: 19:16 Discharge ordered by MD. sb4 19:30 Discharged to home ambulatory, with family, ha1 19:30 Condition: stable 19:30 Discharge instructions given to patient, family, Instructed on discharge instructions, follow up and referral plans. medication usage, Demonstrated understanding of instructions, follow-up care, medications, 19:32 Patient left the ED. ha1 Signatures: Dispatcher [employer] Malini Walls RN RN ph Baxter, Heather, RN RN hb Martinez, Zaina zm Ayala, Heidy, RN RN ha1 Pavithra Ocasio PAKat PAIvonneC 4 Jada Yarbrough [facility] [place]
[2023-11-19 21:40] VITALS: BP 148/78; TEMP 98; O2SAT 99
== END ==
LOC: ER 15:16
DX: N39.0 Urinary tract infection, site not specified (principal); S39.012A Strain of muscle, fascia and tendon of lower back, initial encounter; I10 Essential (primary) hypertension; Z88.1 Allergy status to other antibiotic agents; Z88.5 Allergy status to narcotic agent; Z86.718 Personal history of other venous thrombosis and embolism
CPT/HCPCS: 36415; 72131; 80053; 81001; 81025; 82947; 83690; 85025; 93970; 96374; 99284; J0696

== ENCOUNTER → 2023-12-01 | Emergency (ER) | payer SELFPAY ==
[~2023-12-01] MED LIST changes: +APIXABAN 5 MG TABLET ONE; -CEFTRIAXONE 1000 MG/VIAL ONE; +CODEINE 30MG/APAP 300MG TAB ONE; +HYDROCODONE/APAP 10/325 TAB ONE; -HYDROCODONE/APAP 5/325 MG TAB ONE; -NA CHLORIDE 0.9% 50 ML ONE
--- NOTE | 2023-12-01 03:22 | EDPHYS ---
Physician Documentation [facility] Name: Ara Mercado Age: 38 yrs Sex: Female : 1985 Arrival Date: 12/01/2023 Time: 01:50 Bed 11 Private MD: Rashad Beach HPI: 12/01 03:16 This 38 yrs old Female presents to ER via Ambulatory with complaints of Arm bobbi Pain. 03:16 The patient or guardian complains of pain, that is acute. The complaints affect the bobbi anterior aspect of left shoulder, left bicep, posterior aspect of left shoulder and left tricep. Context: The problem was sustained at an unknown location. Onset: The symptoms/episode began/occurred 3 day(s) ago. Treatment prior to arrival includes: no previous treatment. Modifying factors: The symptoms are alleviated by. Associated signs and symptoms: The patient has no apparent associated signs or symptoms. Severity of symptoms: At their worst the symptoms were mild. The patient has experienced similar episodes in the past, multiple times. Historical: - Allergies: 02:22 Amoxicillin; jb4 02:22 Bactrim; jb4 02:22 Morphine; jb4 02:22 Toradol; jb4 02:22 Flagyl; jb4 02:22 Tramadol HCl; jb4 - PMHx: 02:22 Gastroparesis; Hypercholesterolemia; Hypertensive disorder; Hypothyroidism; kidney jb4 disease; neuropathy; NSTEMI; Right arm blood clot; diabetes mellitus; - PSHx: 02:22 Cholecystectomy; jb4 - Immunization history:: Adult Immunizations up to date. - Social history:: Smoking status: Patient reports the use of cigarette tobacco products, 5 cigarettes per day.. - Family history:: not pertinent. ROS: 03:16 Constitutional: Negative for fever, chills, and weight loss, Eyes: Negative for injury, bobbi pain, redness, and discharge, ENT: Negative for injury, pain, and discharge, Neck: Negative for injury, pain, and swelling, Cardiovascular: Negative for chest pain, palpitations, and edema, Respiratory: Negative for shortness of breath, cough, wheezing, and pleuritic chest pain, Abdomen/GI: Negative for abdominal pain, nausea, vomiting, diarrhea, and constipation, Back: Negative for injury and pain, : Negative for injury, bleeding, discharge, and swelling, Skin: Negative for injury, rash, and discoloration, Neuro: Negative for headache, weakness, numbness, tingling, and seizure, Psych: Negative for depression, anxiety, suicide ideation, homicidal ideation, and hallucinations, Allergy/Immunology: Negative for hives, rash, and allergies, Endocrine: Negative for neck swelling, polydipsia, polyuria, polyphagia, and marked weight changes, Hematologic/Lymphatic: Negative for swollen nodes, abnormal bleeding, and unusual bruising, 03:16 MS/extremity: Positive for pain, swelling, of the left arm, Exam: 03:16 Constitutional: This is a well developed, well nourished patient who is awake, alert, bobbi and in no acute distress. Head/Face: Normocephalic, atraumatic. Eyes: Pupils equal round and reactive to light, extra-ocular motions intact. Lids and lashes normal. Conjunctiva and sclera are non-icteric and not injected. Cornea within normal limits. Periorbital areas with no swelling, redness, or edema. ENT: Nares patent. No nasal discharge, no septal abnormalities noted. Tympanic membranes are normal and external auditory canals are clear. Oropharynx with no redness, swelling, or masses, exudates, or evidence of obstruction, uvula midline. Mucous membranes moist. Neck: Trachea midline, no thyromegaly or masses palpated, and no cervical lymphadenopathy. Supple, full range of motion without nuchal rigidity, or vertebral point tenderness. No Meningismus. Chest/axilla: Normal chest wall appearance and motion. Nontender with no deformity. No lesions are appreciated. Cardiovascular: Regular rate and rhythm with a normal S1 and S2. No gallops, murmurs, or rubs. Normal PMI, no JVD. No pulse deficits. Respiratory: Lungs have equal breath sounds bilaterally, clear to auscultation and percussion. No rales, rhonchi or wheezes noted. No increased work of breathing, no retractions or nasal flaring. Abdomen/GI: Soft, non-tender, with normal bowel sounds. No distension or tympany. No guarding or rebound. No evidence of tenderness throughout. Back: No spinal tenderness. No costovertebral tenderness. Full range of motion. Skin: Warm, dry with normal turgor. Normal color with no rashes, no lesions, and no evidence of cellulitis. MS/ Extremity: Pulses equal, no cyanosis. Neurovascular intact. Full, normal range of motion. Neuro: Awake and alert, GCS 15, oriented to person, place, time, and situation. Cranial nerves II-XII grossly intact. Motor strength 5/5 in all extremities. Sensory grossly intact. Cerebellar exam normal. Normal gait. Psych: Awake, alert, with orientation to person, place and time. Behavior, mood, and affect are within normal limits. Vital Signs: 02:19 BP 149 / 83; Pulse 87; Resp 16; Temp 97.2(TE); Pulse Ox 100% on R/A; Weight 79.38 kg jb4 (R); Height 5 ft. 2 in. (R); Pain 7/10; 02:19 Body Mass Index 32.01 (79.38 kg, 157.48 cm) [facility] 02:19 Pain Scale: Adult jb4 MDM: 02:10 Patient medically screened. [facility] 03:19 Differential diagnosis: contusion, abrasion, tendonitis. Data reviewed: vital signs, [facility] nurses notes, radiologic studies, doppler. Consideration of Admission/Observation Escalation of care including admission/observation considered. I considered the following discharge prescriptions or medication management in the emergency department Medications were administered in the Emergency Department. See MAR. Independent interpretation of the following test(s) in the Emergency Department Radiology Department Ultrasound: My interpretation is left upper extremity doppler. Test considered but Not performed: EKG: no ekg. Historians other than the Patient: Spouse/Significant Other: well informed. Care significantly affected by the following chronic conditions: Hypertension, Chronic Kidney Disease. 12/01 03:17 Order name: UPPER EXTREMITY VENOUS UNILATE EDUT 12/01 03:12 Order name: O2 Per Protocol; Complete Time: 03:19 bobbi 12/01 03:12 Order name: O2 Sat Monitoring; Complete Time: 03:19 [facility] Administered Medications: 02:40 Drug: [place] PO 10 mg-325 mg 1 tabs PO once Route: PO; [facility] 03:35 Follow up: Response: No adverse reaction; Pain is unchanged, physician notified [facility] 03:15 CANCELLED (Duplicate Order): enoxaparin1 mg/kg Sub-Q once [facility] 03:15 CANCELLED (Duplicate Order): ns 0.9% 1000 ml IV at 1 bolus Per protocol; 1000 mL bolus [facility] 03:27 Drug: Eliquis PO 10 mg PO once Route: PO; jb4 03:35 Follow up: Response: Medication administered at discharge. jb4 03:35 Drug: Acetaminophen-Codeine PO (300 mg-30 mg) 1 tablet PO once; RASS on ADMIN: Combtv4, jb4 Very Agttd3, Agttd2, Rstlss1, AlertClm0, Drwsy-1, Lt Sdtn-2, Mod Sdtn-3, Dp Sdtn-4, UnArsble-5 {Note: Rass score 0.} Route: PO; 03:35 Follow up: Response: Medication administered at discharge. jb4 Disposition Summary: 12/01/23 03:21 Discharge Ordered Notes: Location: Home bobbi Problem: new bobbi Symptoms: have improved bobbi Condition: Stable bobbi Diagnosis - Acute embolism and thrombosis of deep veins of left upper extremity bobbi Followup: bobbi - With: Private Physician - When: 2 - 3 days - Reason: Recheck today's complaints, Continuance of care, Re-evaluation by your physician Followup: bobbi - With: Nick Franco MD - When: 2 - 3 days - Reason: Recheck today's complaints, Re-evaluation by your physician Followup: bobbi - With: Tc Barrios MD - When: 2 - 3 days - Reason: Recheck today's complaints, Re-evaluation by your physician Discharge Instructions: - Discharge Summary Sheet bobbi - Deep Vein Thrombosis bobbi - Venous Thromboembolism Prevention [facility] Forms: - Medication Reconciliation Form bobbi - Thank You Letter bobbi - Antibiotic Education bobbi - Prescription Opioid Use bobbi - Patient Portal Instructions bobbi - Leadership Thank You Letter [facility] Prescriptions: - Eliquis 5 mg Oral tablet - take 1 tablet ORAL route every 12 hours; 60 tablet; Refills: 0, Product [facility] Selection Permitted - Eliquis 5 mg Oral tablet - take 2 tablet ORAL route 2 times per day for 7 days; 28 tablet; Refills: 0, bobbi Product Selection Permitted Signatures: Dispatcher [employer] Rashad Graham MD MD cha Bryson, James, RN RN jb4 Corrections: (The following items were deleted from the chart) 03:15 03:12 Cardiac monitoring ordered. [facility] 03:12 EKG - Nurse/Tech ordered. [facility] 03:12 Labs collected and sent ordered. [facility] 03:12 Enoxaparin Sub-Q 1 mg/kg Sub-Q once ordered. bobbi bobbi 03:15 03:12 NS 0.9% IV 1000 ml IV at 1 bolus Per protocol; 1000 mL bolus ordered. bobbi bobbi 03:17 02:26 Extremity Venous Uni Ltd+US.RAD.BRZ ordered. EDMS EDMS 03:24 03:12 IV Saline Lock ordered. bobbi jb4 03:26 03:12 BASIC METABOLIC PANEL+C.LAB.BRZ ordered. EDMS EDMS 03: 03:12 CBC+H.LAB.BRZ ordered. EDMS EDMS 03: 03:12 HEPATIC FUNCTION+C.LAB.BRZ ordered. EDMS EDMS 03: 03:12 MAGNESIUM+C.LAB.BRZ ordered. EDMS EDMS 03: 03:12 PROBNP+C.LAB.BRZ ordered. EDMS EDMS 03: 03:12 PROTIME (+INR)+COAG.LAB.BRZ ordered. EDMS EDMS 03: 03:12 Troponin High Sensitivity+C.LAB.BRZ ordered. EDMS EDMS 03: 03:12 LIPASE+C.LAB.BRZ ordered. EDMS EDMS
--- NOTE | 2023-12-01 03:22 | ER ---
Nurse's Notes [facility] Name: Ara Mercado Age: 38 yrs Sex: Female : 1985 Arrival Date: 12/01/2023 Time: 01:50 Bed 11 Private MD: Diagnosis: Acute embolism and thrombosis of deep veins of left upper extremity Presentation: 12/01 02:19 Chief complaint: Patient states: I feel like I have a blood clot in my left arm and a jb4 rash around my elbow. I took benadryl at home. It has not helped the itching yet. Coronavirus screen: At this time, the client does not indicate any symptoms associated with coronavirus-19. Ebola Screen: No symptoms or risks identified at this time. Initial Sepsis Screen: Does the patient meet any 2 criteria? No. Patient's initial sepsis screen is negative. Does the patient have a suspected source of infection? No. Patient's initial sepsis screen is negative. Risk Assessment: Do you want to hurt yourself or someone else? Patient reports no desire to harm self or others. Onset of symptoms was December 01, 2023. Transition of care: patient was not received from another setting of care. 02:19 Method Of Arrival: Ambulatory jb4 02:19 Acuity: CHARISSA 4 jb4 Historical: - Allergies: 02:22 Amoxicillin; jb4 02:22 Bactrim; jb4 02:22 Morphine; jb4 02:22 Toradol; jb4 02:22 Flagyl; jb4 02:22 Tramadol HCl; jb4 - PMHx: 02:22 Gastroparesis; Hypercholesterolemia; Hypertensive disorder; Hypothyroidism; kidney jb4 disease; neuropathy; NSTEMI; Right arm blood clot; diabetes mellitus; - PSHx: 02:22 Cholecystectomy; jb4 - Immunization history:: Adult Immunizations up to date. - Social history:: Smoking status: Patient reports the use of cigarette tobacco products, 5 cigarettes per day.. - Family history:: not pertinent. Screenin:35 [facility] ED Fall Risk Assessment (Adult) History of falling in the last 3 months, jb4 including since admission No falls in past 3 months (0 pts) Confusion or Disorientation No (0 pts) Score/Fall Risk Level 0 - 2 = Low Risk Oriented to surroundings, Maintained a safe environment. Abuse screen: Denies threats or abuse. Nutritional screening: No deficits noted. Tuberculosis screening: No symptoms or risk factors identified. Assessment: 02:23 General: Appears in no apparent distress. comfortable, Behavior is calm, cooperative, jb4 appropriate for age. Pain: Complains of pain in left arm Pain does not radiate. Pain currently is 7 out of 10 on a pain scale. Neuro: Level of Consciousness is awake, alert, obeys commands, Oriented to person, place, time, situation. Cardiovascular: Patient's skin is warm and dry. Respiratory: Airway is patent Respiratory effort is even, unlabored, Respiratory pattern is regular, symmetrical. GI: No signs and/or symptoms were reported involving the gastrointestinal system. : No signs and/or symptoms were reported regarding the genitourinary system. EENT: No signs and/or symptoms were reported regarding the EENT system. Derm: Skin is intact, Skin is pink, warm \T\ dry. Pt reports itching to the left elbow. No rash visualized. Musculoskeletal: Circulation, motion, and sensation intact. Range of motion: intact in all extremities. Vital Signs: 02:19 BP 149 / 83; Pulse 87; Resp 16; Temp 97.2(TE); Pulse Ox 100% on R/A; Weight 79.38 kg jb4 (R); Height 5 ft. 2 in. (R); Pain 7/10; 02:19 Body Mass Index 32.01 (79.38 kg, 157.48 cm) jb4 02:19 Pain Scale: Adult jb4 ED Course: 01:54 Patient arrived in ED. es 02:10 Rashad Melgoza MD is Attending Physician. bobbi 02:22 Triage completed. jb4 02:22 Arm band placed on right wrist. jb4 03:17 UPPER EXTREMITY VENOUS UNILATE In Process Unspecified. EDMS 03:21 Nick Franco MD is Referral Physician. bobbi 03:22 Tc Barrios MD is Referral Physician. bobbi 03:35 Patient has correct armband on for positive identification. Bed in low position. Call jb4 light in reach. Side rails up X 1. 03:35 No provider procedures requiring assistance completed. Patient did not have IV access jb4 during this emergency room visit. Administered Medications: 02:40 Drug: [place] PO 10 mg-325 mg 1 tabs PO once Route: PO; jb4 03:35 Follow up: Response: No adverse reaction; Pain is unchanged, physician notified [facility] 03:15 CANCELLED (Duplicate Order): enoxaparin1 mg/kg Sub-Q once [facility] 03:15 CANCELLED (Duplicate Order): ns 0.9% 1000 ml IV at 1 bolus Per protocol; 1000 mL bolus [facility] 03:27 Drug: Eliquis PO 10 mg PO once Route: PO; jb4 03:35 Follow up: Response: Medication administered at discharge. 4 03:35 Drug: Acetaminophen-Codeine PO (300 mg-30 mg) 1 tablet PO once; RASS on ADMIN: Combtv4, jb4 Very Agttd3, Agttd2, Rstlss1, AlertClm0, Drwsy-1, Lt Sdtn-2, Mod Sdtn-3, Dp Sdtn-4, UnArsble-5 {Note: Rass score 0.} Route: PO; 03:35 Follow up: Response: Medication administered at discharge. jb4 Medication: 03:35 VIS not applicable for this client. 4 Outcome: 03:21 Discharge ordered by . [facility] 03:35 Discharged to home ambulatory, 4 03:35 Condition: stable 03:35 Discharge instructions given to patient, Instructed on discharge instructions, follow up and referral plans. medication usage, Demonstrated understanding of medications, Prescriptions given X 1, 03:36 Patient left the ED. 4 Signatures: Dispatcher [employer] Rashad Graham MD MD cha Salyer, Alejandro Webster, RN RN jb4
[2023-12-01 04:44] VITALS: BP 149/83; TEMP 97.2; O2SAT 100
--- NOTE | 2023-12-01 07:46 | RAD REPORT ---
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 There is partial noncompressible left brachial vein, left basilic vein with echogenic material. Findi ngs are similar to previous study of 08/24/2023. No new evidence for thrombosis within the left upper extremity. The rest of the deep venous system le ft upper activity demonstrate to be patent. IMPRESSION: Chronic DVT left brachial and basilic veins, similar to the previous study of 08/24/2023. Electronically signed by: Kvng Fry MD 12/01/2023 03:29 AM CURB MACHINE OPERATOR Due to temporary technical issues with the PACS/Fluency reporting system, reports are being signed by the in house radiologist without review as a courtesy to ensure prompt reporting. The interpreting r adiologist is fully responsible for the content of the report.
== END ==
LOC: ER 01:50
DX: I82.622 Acute embolism and thrombosis of deep veins of left upper extremity (principal)
CPT/HCPCS: 93971; 99283

== ENCOUNTER → 2023-12-17 | Emergency (ER) | payer SELFPAY ==
--- NOTE | 2023-12-17 06:29 | EDPHYS ---
Physician Documentation [facility] Name: Ara Mercado Age: 38 yrs Sex: Female : 1985 Arrival Date: 12/17/2023 Time: 02:43 Bed 13 Private MD: ED Physician Jordan Archer HPI: 12/17 03:26 This 38 yrs old Female presents to ER via Unassigned with complaints of Arm sp4 Pain, Back Pain. 03:32 Old female presents with complaint of acute back pain after a fall yesterday. Patient sp4 states pain is in the lower back with radiation into the right upper back. Patient is ambulatory on arrival.. Historical: - Allergies: 03:48 Bactrim; pf1 03:48 Amoxicillin; pf1 03:48 Toradol; pf1 03:48 Tramadol HCl; pf1 03:48 Morphine; pf1 03:48 Flagyl; pf1 - PMHx: 03:32 diabetes mellitus; Gastroparesis; Hypercholesterolemia; Hypertensive disorder; sp4 Hypothyroidism; kidney disease; neuropathy; NSTEMI; Right arm blood clot; - PSHx: 03:32 Cholecystectomy; sp4 - Immunization history:: Adult Immunizations up to date, Client reports having NOT received the Covid vaccine. Last tetanus immunization: < 5 years ago Flu vaccine is not up to date. - Family history:: not pertinent. - Social history:: Smoking status: Patient reports the use of cigarette tobacco products, smokes one-half pack cigarettes per day, Patient/guardian denies using alcohol, street drugs. ROS: 03:32 Constitutional: Negative for fever, chills, and weight loss, positive back pain sp4 03:32 All other systems are negative, Exam: 03:32 Constitutional: This is a well developed, well nourished patient who is awake, alert, sp4 and in no acute distress. Head/Face: Normocephalic, atraumatic. Eyes: Pupils equal round and reactive to light, extra-ocular motions intact. Lids and lashes normal. Conjunctiva and sclera are not injected. Cornea within normal limits. Periorbital areas with no swelling, redness, or edema. ENT: Nares patent. No nasal discharge, no septal abnormalities noted. Tympanic membranes are normal and external auditory canals are clear. Oropharynx with no redness, swelling, or masses, exudates, or evidence of obstruction, uvula midline. Mucous membranes moist. Neck: Trachea midline, no thyromegaly or masses palpated, and no cervical lymphadenopathy. Supple, full range of motion without nuchal rigidity, or vertebral point tenderness. Chest/axilla: Normal chest wall appearance and motion. Nontender with no deformity. No lesions are appreciated. Cardiovascular: Regular rate and rhythm with a normal S1 and S2. No gallops, murmurs, or rubs. Normal PMI, no JVD. No pulse deficits. Respiratory: Lungs have equal breath sounds bilaterally, clear to auscultation and percussion. No rales, rhonchi or wheezes noted. No increased work of breathing, no retractions or nasal flaring. Abdomen/GI: Soft, non-tender, with normal bowel sounds. No distension or tympany. No guarding or rebound. No evidence of tenderness throughout. Back: No spinal tenderness. No costovertebral tenderness. Skin: Warm, dry with normal turgor. Normal color with no rashes, no lesions, and no evidence of cellulitis. MS/ Extremity: Pulses equal, no cyanosis. Neurovascular intact. Full, normal range of motion. Neuro: Awake and alert, GCS 15, oriented to person, place, time, and situation. Cranial nerves II-XII grossly intact. Motor strength 5/5 in all extremities. Sensory grossly intact. Psych: Awake, alert, with orientation to person, place and time. Behavior, mood, and affect are within normal limits Vital Signs: 03:15 BP 138 / 73; Pulse 89; Resp 16; Temp 97.9; Pulse Ox 100% on R/A; Weight 79.38 kg; pf1 Height 5 ft. 2 in. ; Pain 9/10; 03:50 BP 110 / 65; Pulse 60; Resp 17; Pulse Ox 99% ; jj7 03:15 Body Mass Index 32.01 (79.38 kg, 157.48 cm) pf1 03:15 Pain Scale: Adult pf1 MDM: 03:32 Differential diagnosis: contusion, abrasion, tendonitis. Data reviewed: vital signs, sp4 nurses notes, old medical records. ED course: Patient's exam reveals no neurologic deficits, normal ambulation, is likely soft tissue contusion there is no discoloration to the back. This time patient warrants some Tylenol and Robaxin as well for pain and muscle soreness. As far as patient's arm exam the arm does not appear swollen. Right arm left arm equal size. Old record review reveals ultrasound that was done on 12/01/2023. Ultrasound reveals chronic DVT left brachial basilic veins similar to the previous study 08/24/2023. Based on patient's medical record she takes Eliquis 5 mg p.o. every 12 hours. Will extend prescription for Eliquis 5 mg p.o. twice a day for next 30 days. Will also prescribe methocarbamol or Robaxin for muscle soreness. No further tests indicated today. 03:37 Patient medically screened. sp4 Administered Medications: 03:39 Drug: Acetaminophen PO 1000 mg PO once Route: PO; jj7 03:52 Follow up: Response: No adverse reaction jj7 03:39 Drug: Methocarbamol PO 750 mg PO once Route: PO; jj7 03:52 Follow up: Response: No adverse reaction jj7 Disposition Summary: 12/17/23 03:37 Discharge Ordered Notes: Location: Home sp4 Problem: new sp4 Symptoms: have improved sp4 Condition: Stable sp4 Diagnosis - Low back pain sp4 - Acute lower back contusion. sp4 - Chronic anticoagulation sp4 Followup: sp4 - With: Jose James MD - When: 7 - 10 days - Reason: Recheck today's complaints Discharge Instructions: - Discharge Summary Sheet sp4 - Acute Back Pain, Adult sp4 Forms: - Patient Portal Instructions sp4 Prescriptions: - Eliquis 5 mg Oral tablet - take 2 tablet ORAL route every 12 hours for 30 days; 60 tablet; Refills: 0, sp4 Product Selection Permitted - methocarbamol 750 mg Oral tablet - take 2 tablets ORAL route every 8 hours for 2 days PRN muscle soreness; 60 sp4 tablet; Refills: 0, Product Selection Permitted Signatures: Ro Camejo RN RN jj7 Columba Cramer RN RN pf1 Jordan Archer MD MD sp4 Corrections: (The following items were deleted from the chart) 03:49 03:32 Allergies: Bactrim [Inactive]; sp4 pf1 03:49 03:32 Allergies: Amoxicillin [Inactive]; sp4 pf1 03:49 03:32 Allergies: Toradol [Inactive]; sp4 pf1 03:49 03:32 Allergies: Tramadol HCl [Inactive]; sp4 pf1 :49 03:32 Allergies: Morphine [Inactive]; sp4 pf1 :49 03:32 Allergies: Flagyl [Inactive]; sp4 pf1
--- NOTE | 2023-12-17 06:29 | ER ---
Nurse's Notes [facility] Name: Ara Mercado Age: 38 yrs Sex: Female : 1985 Arrival Date: 12/17/2023 Time: 02:43 Bed 13 Private MD: Diagnosis: Low back pain;Acute lower back contusion. ;Chronic anticoagulation Presentation: 12/17 03:15 Chief complaint: Patient states: lower back pain of 9 that radiates to posterior left pf1 rib cage,onset yesterday, S/P fall, tripped over a suitcase and landed onto a carpeted odilia. Patient denies any head injury. Patient also C/O right arm pain,onset 3 days. Patient stated thinks she has a blood clot to right arm. 03:15 Coronavirus screen: Vaccine status: Patient reports receiving the 2nd dose of the covid pf1 vaccine. Client denies travel out of the [place] in the last 14 days. At this time, the client does not indicate any symptoms associated with coronavirus-19. Ebola Screen: Patient negative for fever greater than or equal to 101.5 degrees Fahrenheit, and additional compatible Ebola Virus Disease symptoms. Initial Sepsis Screen: Does the patient meet any 2 criteria? No. Patient's initial sepsis screen is negative. Does the patient have a suspected source of infection? No. Patient's initial sepsis screen is negative. Risk Assessment: Do you want to hurt yourself or someone else? Patient reports no desire to harm self or others. 03:15 Method Of Arrival: Ambulatory pf1 03:15 Acuity: CHARISSA 3 pf1 Historical: - Allergies: 03:48 Bactrim; pf1 03:48 Amoxicillin; pf1 03:48 Toradol; pf1 03:48 Tramadol HCl; pf1 03:48 Morphine; pf1 03:48 Flagyl; pf1 - PMHx: 03:32 diabetes mellitus; Gastroparesis; Hypercholesterolemia; Hypertensive disorder; sp4 Hypothyroidism; kidney disease; neuropathy; NSTEMI; Right arm blood clot; - PSHx: 03:32 Cholecystectomy; sp4 - Immunization history:: Adult Immunizations up to date, Client reports having NOT received the Covid vaccine. Last tetanus immunization: < 5 years ago Flu vaccine is not up to date. - Family history:: not pertinent. - Social history:: Smoking status: Patient reports the use of cigarette tobacco products, smokes one-half pack cigarettes per day, Patient/guardian denies using alcohol, street drugs. Screenin:30 [facility] ED Fall Risk Assessment (Adult) History of falling in the last 3 months, jj7 including since admission Yes- single mechanical fall (1 pt) Confusion or Disorientation No (0 pts) Intoxicated or Sedated No (0 pts) Impaired Gait No (0 pts) Mobility Assist Device Used No (0 pt) Altered Elimination No (0 pt) Score/Fall Risk Level 0 - 2 = Low Risk Oriented to surroundings, Maintained a safe environment, Educated pt \T\ family on fall prevention, incl call for assistance when getting out of bed. Abuse screen: Denies threats or abuse. Nutritional screening: No deficits noted. Tuberculosis screening: No symptoms or risk factors identified. Assessment: 03:30 General: Appears in no apparent distress. uncomfortable, Behavior is calm, cooperative, jj7 appropriate for age. Pain: Complains of pain in back and right arm. Neuro: No deficits noted. Level of Consciousness is awake, alert, obeys commands, Oriented to person, place, time, situation, Appropriate for age. Vital Signs: 03:15 BP 138 / 73; Pulse 89; Resp 16; Temp 97.9; Pulse Ox 100% on R/A; Weight 79.38 kg; pf1 Height 5 ft. 2 in. ; Pain 9/10; 03:50 BP 110 / 65; Pulse 60; Resp 17; Pulse Ox 99% ; jj7 03:15 Body Mass Index 32.01 (79.38 kg, 157.48 cm) pf1 03:15 Pain Scale: Adult pf1 ED Course: 02:53 Patient arrived in ED. gm2 03:25 Jordan Archer MD is Attending Physician. sp4 03:30 Patient has correct armband on for positive identification. Bed in low position. Call jj7 light in reach. Side rails up X 1. Warm blanket given. 03:30 No provider procedures requiring assistance completed. jj7 03:36 Jose James MD is Referral Physician. sp4 03:47 Triage completed. pf1 03:51 Arm band placed on right wrist. jj7 03:51 Patient did not have IV access during this emergency room visit. jj7 Administered Medications: 03:39 Drug: Acetaminophen PO 1000 mg PO once Route: PO; j7 03:52 Follow up: Response: No adverse reaction jj7 03:39 Drug: Methocarbamol PO 750 mg PO once Route: PO; j7 03:52 Follow up: Response: No adverse reaction j7 Medication: 03:30 VIS not applicable for this client. jj7 Outcome: 03:37 Discharge ordered by . addi 03:51 Discharged to home ambulatory, jj7 03:51 Condition: good 03:51 Discharge instructions given to patient, Instructed on discharge instructions, follow up and referral plans. medication usage, Demonstrated understanding of instructions, follow-up care, medications, Prescriptions given X 2, 03:52 Patient left the ED. jj7 Signatures: Ro Camejo RN RN jj7 Columba Cramer RN RN pf1 Jordan Archer MD MD sp4 Mena Francis gm2 Corrections: (The following items were deleted from the chart) 03:49 03:32 Allergies: Bactrim [Inactive]; sp4 pf1 03:49 03:32 Allergies: Amoxicillin [Inactive]; sp4 pf1 03:49 03:32 Allergies: Toradol [Inactive]; sp4 pf1 03:49 03:32 Allergies: Tramadol HCl [Inactive]; sp4 pf1 03:49 03:32 Allergies: Morphine [Inactive]; sp4 pf1 03:49 03:32 Allergies: Flagyl [Inactive]; sp4 pf1
[2023-12-17 10:18] VITALS: BP 110/65; TEMP 97.9; O2SAT 99
== END ==
LOC: ER 02:43
DX: S30.0XXA Contusion of lower back and pelvis, initial encounter (principal); D68.9 Coagulation defect, unspecified; F17.210 Nicotine dependence, cigarettes, uncomplicated; Z88.1 Allergy status to other antibiotic agents; Z88.5 Allergy status to narcotic agent
CPT/HCPCS: 99283

== ENCOUNTER → 2024-01-09 | Emergency (ER) | payer SELFPAY ==
--- NOTE | 2024-01-09 16:38 | RAD REPORT ---
EXAM DESCRIPTION: CT - Chest Abd Pelvis Wo Con - 01/09/2024 4:17 pm CLINICAL HISTORY: abd pain, trauma, fall;Blunt chest trauma COMPARISON: Chest For Pe Angio dated 03/05/2022; Chest For Pe Angio dated 11/11/2020 TECHNIQUE: Thin axial CT images of the chest, abdomen, and pelvis, performed without IV contrast. Mu ltiplanar reformats were generated and reviewed. All CT scans are performed using dose optimization technique as appropriate and may include automated exposure control or mA/KV adjustment according to patient size. FINDINGS: The lungs are clear.No pleural or pericardial effusion.No intrathoracic adenopathy. The liver, spleen, pancreas, adrenal glands and kidneys are within normal limits. Status post cholec ystectomy. No bowel obstruction, free air, free fluid or abscess. IUD in place. Appendix is unremarkable. No pa thologic lymphadenopathy in the abdomen or pelvis. No worrisome osseous finding. IMPRESSION: No CT abnormalities in the chest, abdomen, or pelvis. Status post cholecystectomy.
[2024-01-09 16:41] LABS: Specific Gravity 1.007 (1.005-1.030); Urine Bacteria <20 /HPF (<20); Urine Bilirubin NEGATIVE (Negative); Urine Blood Trace (Negative); Urine Clarity Clear (Clear); Urine Color Colorless (Yellow); Urine Glucose 3+ (Negative); Urine Protein TRACE (Negative); Urine RBC <5 /HPF (None Seen); Urine Urobilinogen Normal (Normal); Urine pH 6.5 (5.0-7.0)
--- NOTE | 2024-01-09 16:45 | EDPHYS ---
Physician Documentation [facility] Name: Ara Mercado Age: 38 yrs Sex: Female : 1985 Arrival Date: 01/09/2024 Time: 15:27 Bed IW4 Private MD: ED Physician Alex Lemons HPI: 01/09 16:11 This 38 yrs old Female presents to ER via Ambulatory with complaints of Fall Injury, rn Flank Pain. 16:11 Details of fall: The patient fell from an upright position, Climbing inside of a rn vehicle. Onset: The symptoms/episode began/occurred 2 day(s) ago. Associated injuries: The patient sustained injury to the chest, specifically the right lateral posterior chest and right lateral anterior chest, contusion, tenderness. Severity of symptoms: At their worst the symptoms were moderate, in the emergency department the symptoms are unchanged. The patient has not experienced similar symptoms in the past. The patient has not recently seen a physician. Patient reports climbing inside of a vehicle and slipped, struck right lower ribs on part of the vehicle. Reports pain to right inferior ribs and abdomen. No head injury. No difficulty breathing. No hemoptysis. No blood in stool or urine. Usually takes anticoagulation for DVT but stopped it 2 days ago for upcoming colonoscopy.. Historical: - Allergies: 15:56 Amoxicillin; iw 15:56 Bactrim; iw 15:56 Flagyl; iw 15:56 Morphine; iw 15:56 Toradol; iw 15:56 Tramadol HCl; iw - PMHx: 15:56 diabetes mellitus; Gastroparesis; Hypercholesterolemia; Hypertensive disorder; iw Hypothyroidism; kidney disease; neuropathy; NSTEMI; Right arm blood clot; - Immunization history:: Adult Immunizations up to date. - Family history:: not pertinent. - Social history:: Smoking status: Patient reports the use of cigarette tobacco products, smokes one pack cigarettes per day. - Hospitalizations: : No recent hospitalization is reported. ROS: 16:11 Constitutional: Negative for fever, chills, and weight loss, Eyes: Negative for injury, rn pain, redness, and discharge, Neck: Negative for injury, pain, and swelling, Cardiovascular: Positive for right chest wall injury Respiratory: Negative for shortness of breath, cough, wheezing, and pleuritic chest pain, Abdomen/GI: Positive for mild right abdominal pain and injury Back: Negative for injury and pain, MS/Extremity: Negative for injury and deformity, Skin: Negative for injury, rash, and discoloration, Neuro: Negative for headache, weakness, numbness, tingling, and seizure, Exam: 16:11 Constitutional: This is a well developed, well nourished patient who is awake, alert, rn and in no acute distress. Head/Face: Normocephalic, atraumatic. Chest/axilla: Right lateral inferior rib tenderness without crepitus or contusion or ecchymosis. Cardiovascular: Regular rate and rhythm. No pulse deficits. Respiratory: No increased work of breathing, no retractions or nasal flaring. Abdomen/GI: Soft, non-tender Back: No spinal tenderness. MS/ Extremity: Pulses equal, no cyanosis. Neurovascular intact. Full, normal range of motion. Equal circumference. Neuro: Awake and alert, GCS 15, Normal gait. Vital Signs: 15:55 BP 165 / 93; Pulse 88; Resp 16; Temp 98.1; Pulse Ox 100% on R/A; Weight 79.38 kg; iw Height 5 ft. 2 in. ; Pain 9/10; 15:55 Body Mass Index 32.01 (79.38 kg, 157.48 cm) iw 15:55 Pain Scale: Adult iw MDM: 15:31 Patient medically screened. rn 16:43 Differential diagnosis: contusion, fracture, sprain, strain. Data reviewed: vital rn signs, nurses notes, lab test result(s), radiologic studies, CT scan, and as a result, I will discharge patient. Counseling: I had a detailed discussion with the patient and/or guardian regarding the historical points, exam findings, and any diagnostic results supporting the discharge/admit diagnosis, lab results, radiology results, the need for outpatient follow up, to return to the emergency department if symptoms worsen or persist or if there are any questions or concerns that arise at home. Special discussion: I discussed with the patient/guardian in detail that at this point there is no indication for admission to the hospital. It is understood, however, that if the symptoms persist or worsen the patient needs to return immediately for re-evaluation. 16:43 ED course: No acute traumatic findings in chest abdomen or pelvis. Patient has been off rn of her blood thinners luckily. I have personally reviewed all of the results, including but not limited to blood tests and imaging deemed necessary to safely discharge this patient at this time. All results given to and printed out for patient. I personally went over all the results with the patient and answered all questions. Patient will follow-up with PCP and or specialist as discussed. Return precautions given and understood.. 01/09 15:54 Order name: Test, Urine rn 01/09 15:54 Order name: Urinalysis w/ reflexes; Complete Time: 16:42 rn 01/09 15:53 Order name: CT Chest Abdomen Pelvis W/O Contrast; Complete Time: 16:42 rn Administered Medications: No medications were administered Disposition Summary: 01/09/24 16:45 Discharge Ordered Notes: Location: Home rn Problem: new rn Symptoms: have improved rn Condition: Stable rn Diagnosis - Contusion of ribs rn Followup: rn - With: Private Physician - When: As needed - Reason: Recheck today's complaints, Re-evaluation by your physician Discharge Instructions: - Discharge Summary Sheet rn - Rib Contusion rn Forms: - Medication Reconciliation Form rn - Thank You Letter rn - Antibiotic internal sales - Prescription Opioid Use rn - Patient Portal Instructions rn - Leadership Thank You Letter rn Signatures: Dispatcher [employer] Lyndsay Morales RN RN Alex Draper MD MD rn Slawson, Ashby, RN RN as6
--- NOTE | 2024-01-09 16:45 | ER ---
Nurse's Notes [facility] Name: Ara Mercado Age: 38 yrs Sex: Female : 1985 Arrival Date: 01/09/2024 Time: 15:27 Bed IW4 Private MD: Diagnosis: Contusion of ribs Presentation: 01/09 15:55 Chief complaint: Patient states: on Friday she fell inside the truck , she hit the iw right side of her ribs on the passenger seat and has had increasing pain since then. 15:55 Acuity: CHARISSA 3 iw 15:55 Coronavirus screen: At this time, the client does not indicate any symptoms associated iw with coronavirus-19. Ebola Screen: Patient negative for fever greater than or equal to 101.5 degrees Fahrenheit, and additional compatible Ebola Virus Disease symptoms Patient denies exposure to infectious person. Patient denies travel to an Ebola-affected area in the 21 days before illness onset. No symptoms or risks identified at this time. Initial Sepsis Screen: Does the patient meet any 2 criteria? No. Patient's initial sepsis screen is negative. Does the patient have a suspected source of infection? No. Patient's initial sepsis screen is negative. Risk Assessment: Do you want to hurt yourself or someone else? Patient reports no desire to harm self or others. Onset of symptoms was January 07, 2024. 15:55 Method Of Arrival: Ambulatory iw Historical: - Allergies: 15:56 Amoxicillin; iw 15:56 Bactrim; iw 15:56 Flagyl; iw 15:56 Morphine; iw 15:56 Toradol; iw 15:56 Tramadol HCl; iw - PMHx: 15:56 diabetes mellitus; Gastroparesis; Hypercholesterolemia; Hypertensive disorder; iw Hypothyroidism; kidney disease; neuropathy; NSTEMI; Right arm blood clot; - Immunization history:: Adult Immunizations up to date. - Family history:: not pertinent. - Social history:: Smoking status: Patient reports the use of cigarette tobacco products, smokes one pack cigarettes per day. - Hospitalizations: : No recent hospitalization is reported. Screenin:11 [facility] ED Fall Risk Assessment (Adult) Score/Fall Risk Level 0 - 2 = Low Risk. Abuse as6 screen: Denies threats or abuse. Denies injuries from another. Nutritional screening: No deficits noted. Tuberculosis screening: No symptoms or risk factors identified. Assessment: 17:11 General: Appears uncomfortable, Behavior is calm, cooperative. Pain: Complains of pain as6 in right lateral anterior chest and right lateral posterior chest. Respiratory: Respiratory effort is even, unlabored, Respiratory pattern is regular, symmetrical. Vital Signs: 15:55 BP 165 / 93; Pulse 88; Resp 16; Temp 98.1; Pulse Ox 100% on R/A; Weight 79.38 kg; iw Height 5 ft. 2 in. ; Pain 9/10; 15:55 Body Mass Index 32.01 (79.38 kg, 157.48 cm) iw 15:55 Pain Scale: Adult iw ED Course: 15:31 Patient arrived in ED. im 15:31 Alex Lemons MD is Attending Physician. rn 15:55 Triage completed. iw 15:56 Arm band placed on. iw 16:19 CT Chest Abdomen Pelvis W/O Contrast In Process Unspecified. EDMS 16:29 Test, Urine Sent. bc6 16:29 Urinalysis w/ reflexes Sent. bc6 17:10 Bed in low position. Call light in reach. Provided Education on: follow up. as6 17:10 No provider procedures requiring assistance completed. Patient did not have IV access as6 during this emergency room visit. Administered Medications: No medications were administered Medication: 17:11 VIS not applicable for this client. as6 Outcome: 16:45 Discharge ordered by . rn 17:10 Discharged to home ambulatory, as6 17:10 Condition: stable 17:10 Discharge instructions given to patient, Instructed on discharge instructions, follow up and referral plans. Demonstrated understanding of instructions, follow-up care, 17:12 Patient left the ED. as6 Signatures: Dispatcher [employer] Lyndsay Morales, VÍCTOR RENEE iw Alex Lemons MD MD rn Slawson, Ashby, RN RN asNga [facility] Henny Mueller
[2024-01-09 17:27] VITALS: BP 165/93; TEMP 98.1; O2SAT 100
== END ==
LOC: ER 15:27
DX: S20.211A Contusion of right front wall of thorax, initial encounter (principal)
CPT/HCPCS: 71250; 74176; 81001; 81025; 99283

== ENCOUNTER 2024-05-30 12:35 | Emergency (ER) | payer SELFPAY ==
[2024-05-30 13:57] LABS: Specific Gravity 1.009 (1.005-1.030); Sqamous Epithelial <5 /HPF (None Seen); Urine Bacteria <20 /HPF (<20); Urine Bilirubin NEGATIVE (Negative); Urine Blood Trace (Negative); Urine Clarity Turbid (Clear); Urine Color Colorless (Yellow); Urine Culture Reflex Order REFLEXED; Urine Glucose 4+ (Over) (Negative); Urine Ketones NEGATIVE (Negative); Urine Microscopic Reflex YN ORDER UMIC; Urine Nitrite NEGATIVE (Negative); Urine Protein NEGATIVE (Negative); Urine RBC <5 /HPF (None Seen); Urine Urobilinogen Normal (Normal); Urine WBC 20-50 /HPF (<5); Urine WBC Clump Rare /HPF (None Seen); Urine Yeast (Budding) Trace /HPF (None Seen)
[2024-05-30 14:08] LABS: SARS-CoV-2 Antigen CONTROL BLUE LINE VIS/BG OK; SARS-CoV-2 Antigen Rapid Res Negative (Negative)
[2024-05-30 14:50] LABS: Absolute Basophils 0.1 K/uL (0-0.5); Absolute Eosinophils 0.4 K/uL (0-0.5); Absolute Lymphocytes (CBC) 0.7 K/uL (0.7-4.9); Absolute Monocytes 0.7 K/uL (0.1-1.3); Absolute Neutrophil 8.6 K/uL (1.8-8.0); Basophils % 0.6 % (0-1.3); Eosinophils % 3.5 % (0-4.4); Hematocrit 38.5 % (36.0-45.0); Hemoglobin 13.2 g/dL (12.0-15.0); Lymphocytes % 6.8 % (15.3-44.8); MCH 31.4 pg (27.0-35.0); MCHC 34.2 g/dL (32.0-36.0); MCV 91.6 fL (80-100); MPV 7.2 fL (7.6-11.3); Monocytes % 6.6 % (3.3-12.3); Neutrophils % 82.5 % (41.7-73.7); Platelets 463 thou/uL (152-406); Red Cell Distribution Width 13.2 % (12.1-15.2)
[2024-05-30] MEDS ORDERED: NA CHLORIDE 0.9% 1,000 ML ONE (14:59)
[2024-05-30 15:04] LABS: Anion Gap 8.1 mEq/L (5.0-15.0); Potassium 4.1 mEq/L (3.5-5.1)
[2024-05-30] MEDS ORDERED: ACETAMINOPHEN 500 MG TAB ONE (15:46)
[2024-05-30] MEDS ORDERED: ONDANSETRON 4 MG/2 ML VIAL ONE (15:46)
--- NOTE | 2024-05-30 16:00 | ER ---
Nurse's Notes [facility] Name: Ara Mercado Age: 39 yrs Sex: Female : 1985 Arrival Date: 05/30/2024 Time: 12:35 Bed 16 Private MD: Diagnosis: Dehydration;Viral infection, unspecified Presentation: 05/30 13:23 Chief complaint: Patient states: Body aches, chills, cough, nausea and diarrhea that ph started this morning, family members covid+. Coronavirus screen: Vaccine status: Patient reports being unvaccinated. Ebola Screen: No symptoms or risks identified at this time. Initial Sepsis Screen: Does the patient meet any 2 criteria? No. Patient's initial sepsis screen is negative. Does the patient have a suspected source of infection? No. Patient's initial sepsis screen is negative. Risk Assessment: Do you want to hurt yourself or someone else? Patient reports no desire to harm self or others. Onset of symptoms was May 30, 2024. 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 - Infectious Disease History:: Denies. - Social history:: Smoking status: unknown. Screenin:17 [facility] ED Fall Risk Assessment (Adult) History of falling in the last 3 months, ll1 including since admission No falls in past 3 months (0 pts) Confusion or Disorientation No (0 pts) Intoxicated or Sedated No (0 pts) Impaired Gait No (0 pts) Mobility Assist Device Used No (0 pt) Altered Elimination No (0 pt) Score/Fall Risk Level 0 - 2 = Low Risk Maintained a safe environment, Hourly rounding (assess needs \T\ fall precautionary measures) done. Abuse screen: Denies threats or abuse. Nutritional screening: No deficits noted. Tuberculosis screening: No symptoms or risk factors identified. Assessment: 13:11 General: Appears in no apparent distress. uncomfortable, Behavior is cooperative, rs5 anxious. Pain: Complains of pain in generalized body aches Pain currently is 4 out of 10 on a pain scale. Quality of pain is described as aching, Is continuous. Neuro: Level of Consciousness is awake, alert, obeys commands, Oriented to person, place, time, situation, Reports generalized weakness. Cardiovascular: Patient's skin is warm and dry. Respiratory: Airway is patent Respiratory effort is even, unlabored, Respiratory pattern is regular, symmetrical. 13:11 GI: Abdomen is round non-distended, Abd is soft and non tender X 4 quads. : No signs rs5 and/or symptoms were reported regarding the genitourinary system. Derm: Skin is intact, Skin is pink, warm \T\ dry. Musculoskeletal: Range of motion: intact in all extremities. 13:11 EENT: Reports nasal congestion nasal discharge. rs5 14:18 Reassessment: Patient and/or family updated on plan of care and expected duration. Pain rs5 level reassessed. Patient is alert, oriented x 3, equal unlabored respirations, skin warm/dry/pink. 15:17 Reassessment: No changes from previously documented assessment. rs5 15:51 Reassessment: No changes from previously documented assessment. Patient and/or family ll1 updated on plan of care and expected duration. Pain level reassessed. Patient is alert, oriented x 3, equal unlabored respirations, skin warm/dry/pink. 16:16 Reassessment: No changes from previously documented assessment. Patient and/or family ll1 updated on plan of care and expected duration. Pain level reassessed. Patient is alert, oriented x 3, equal unlabored respirations, skin warm/dry/pink. Vital Signs: 13:23 BP 119 / 79; Pulse 99; Resp 19; Temp 99.5; Pulse Ox 100% on R/A; ph 15:17 BP 125 / 83; Pulse 80; Resp 17; rs5 16:17 BP 136 / 75; Pulse 87; Resp 16; Pulse Ox 99% on R/A; Pain 0/10; ll1 16:17 Pain Scale: Adult ll1 ED Course: 12:40 Patient arrived in ED. mg5 12:41 Celina Driver [facility]C [facility] kb 12:41 John Saleh MD is Attending Physician. kb 13:25 Triage completed. ph 13:25 Arm band placed on Patient placed in waiting room, Patient notified of wait time. ph 13:51 Ronaldo Ryan, RN is Primary Nurse. rs5 14:44 Inserted saline lock: 20 gauge in left antecubital area, using aseptic technique. Blood le1 collected. 14:44 Initial lab(s) drawn, by me, sent to lab. le1 15:51 given crackers. ll1 16:17 No provider procedures requiring assistance completed. IV discontinued, intact, ll1 bleeding controlled, No redness/swelling at site. Pressure dressing applied. 16:18 Patient has correct armband on for positive identification. Provided Education on: ll1 return as needed for worsening symptoms. Administered Medications: 15:05 Drug: NS 0.9% IV 1000 ml IV at 1000 ml once Route: IV; Rate: 1000 ml; Site: right rs5 antecubital; 16:19 Follow up: Response: No adverse reaction; IV Status: Completed infusion; IV Intake: ll1 1000ml 15:51 Drug: Ondansetron IVP 4 mg IVP once; over 2 minutes Route: IVP; Site: left antecubital; ll1 16:19 Follow up: Response: No adverse reaction ll1 15:51 Drug: Acetaminophen PO 1000 mg PO once Route: PO; ll1 16:20 Follow up: Response: No adverse reaction ll1 Medication: 16:18 VIS not applicable for this client. ll1 Intake: 16:19 IV: 1000ml; Total: 1000ml. ll1 Outcome: 15:59 Discharge ordered by . kb 16:18 Discharged to home ambulatory, ll1 16:18 Condition: stable 16:18 Discharge instructions given to patient, family, Instructed on discharge instructions, follow up and referral plans. Demonstrated understanding of instructions, follow-up care, 16:20 Patient left the ED. ll1 Signatures: Celina Driver FNP-C COPIER AND PRINTER FIELD TECHNICIAN-CkMalini Calix RN RN ph Lewis, Lynsay, RN RN ll1 Ronaldo Ryan, VÍCTOR RENEE 5 Jada Yarbrough mg5 Delphine Damico RN RN le1 Corrections: (The following items were deleted from the chart) 15:16 13:11 Neuro: Level of Consciousness is awake, alert, obeys commands, Oriented to rs5 person, place, time, situation, rs5
--- NOTE | 2024-05-30 16:00 | EDPHYS ---
Physician Documentation [facility] Name: Ara Mercado Age: 39 yrs Sex: Female : 1985 Arrival Date: 05/30/2024 Time: 12:35 Bed 16 Private MD: ED Physician John Saleh HPI: 05/30 15:57 This 39 yrs old Female presents to ER via Ambulatory with complaints of Doesn't Feel kb Right. 15:57 Pt is a 39 year old female who presents for bodyaches, malaise, fatigue, cough, kb congestion, fever, chills. States everyone at home tested positive for covid. . 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 - Infectious Disease History:: Denies. - Social history:: Smoking status: unknown. ROS: 15:57 Constitutional: As per HPI kb Exam: 15:57 Constitutional: This is a well developed, well nourished patient who is awake, alert, kb and in no acute distress. Head/Face: Normocephalic, atraumatic. ENT: Moist Mucous membranes Cardiovascular: Regular rate Respiratory: Respirations even and unlabored. No increased work of breathing. Talking in full sentences Abdomen/GI: Soft, non-tender. No distention Skin: Warm, dry with normal turgor. Normal color. MS/ Extremity: Pulses equal, no cyanosis. Neurovascular intact. Full, normal range of motion. Neuro: Awake and alert, GCS 15, oriented to person, place, time, and situation. Moves all extremities. Normal gait. Vital Signs: 13:23 BP 119 / 79; Pulse 99; Resp 19; Temp 99.5; Pulse Ox 100% on R/A; ph 15:17 BP 125 / 83; Pulse 80; Resp 17; rs5 16:17 BP 136 / 75; Pulse 87; Resp 16; Pulse Ox 99% on R/A; Pain 0/10; ll1 16:17 Pain Scale: Adult ll1 MDM: 12:41 Patient medically screened. kb 15:55 Differential diagnosis: flu, covid, uri, abnormal electrolytes, dehydration. Data kb reviewed: vital signs, nurses notes. Consideration of Admission/Observation Escalation of care including admission/observation considered. admission/transfer considered for acute on chronic renal failure. Dr Saleh recommends IV fluid bolus and discharge home with increased oral fluid intake. Management of patient was discussed with the following: Dr Saleh. Counseling: I had a detailed discussion with the patient and/or guardian regarding the historical points, exam findings, and any diagnostic results supporting the discharge/admit diagnosis, lab results, the need for outpatient follow up, a family practitioner, to return to the emergency department if symptoms worsen or persist or if there are any questions or concerns that arise at home. 05/30 13:16 Order name: SARS-COV-2 Antigen Rapid; Complete Time: 14:13 ph 05/30 13:16 Order name: Flu; Complete Time: 15:05 ph 05/30 13:16 Order name: Urinalysis w/ reflexes; Complete Time: 14:13 ph 05/30 14:00 Order name: Urine Culture EDMS 05/30 14:15 Order name: CBC with Diff; Complete Time: 14:57 kb 05/30 14:15 Order name: Basic Metabolic Panel; Complete Time: 15:05 kb 05/30 14:15 Order name: IV Start; Complete Time: 15:30 kb Administered Medications: 15:05 Drug: NS 0.9% IV 1000 ml IV at 1000 ml once Route: IV; Rate: 1000 ml; Site: right rs5 antecubital; 16:19 Follow up: Response: No adverse reaction; IV Status: Completed infusion; IV Intake: ll1 1000ml 15:51 Drug: Ondansetron IVP 4 mg IVP once; over 2 minutes Route: IVP; Site: left antecubital; ll1 16:19 Follow up: Response: No adverse reaction ll1 15:51 Drug: Acetaminophen PO 1000 mg PO once Route: PO; ll1 16:20 Follow up: Response: No adverse reaction ll1 Disposition Summary: 05/30/24 15:59 Discharge Ordered Notes: Location: Home kb Condition: Stable kb Diagnosis - Dehydration kb - Viral infection, unspecified kb Followup: kb - With: Emergency Department - When: As needed - Reason: Worsening of condition Followup: kb - With: Private Physician - When: 2 - 3 days - Reason: Recheck today's complaints, Continuance of care, Re-evaluation by your physician Discharge Instructions: - Discharge Summary Sheet kb - Dehydration, Adult, [id number] kb - Viral Illness, Pediatric kb Forms: - Medication Reconciliation Form kb - Antibiotic Education kb - Prescription Opioid Use kb - Patient Portal Instructions kb - Leadership Thank You Letter kb Signatures: Dispatcher [employer] [facility] Celina Driver, SPRINKLER TENDER-C SPRINKLER TENDER-Malini Membreno RN RN Robert Cooper RN RN ll1 Ronaldo Ryan RN RN rs5 Corrections: (The following items were deleted from the chart) 13:17 13:17 Urinalysis+U.LAB.BRZ ordered. [facility]
[2024-05-30 16:48] VITALS: BP 136/75; TEMP 99.5; O2SAT 99
== END 2024-05-30 16:20 | disposition home or self-care (01) ==
LOC: ER 12:35
DX: E86.0 Dehydration (principal); B34.9 Viral infection, unspecified; Z11.52 Encounter for screening for COVID-19
CPT/HCPCS: 36415; 80048; 81001; 85025; 87077; 87086; 87088; 87186; 87804; 87811; 96361; 96374; 99284; J2405; J7030

== ENCOUNTER 2024-07-23 15:51 | Emergency (ER) | payer OTHER ==
--- NOTE | 2024-07-23 16:23 | ER ---
Nurse's Notes [facility] Name: Ara Mercado Age: 39 yrs Sex: Female : 1985 Arrival Date: 07/23/2024 Time: 15:51 Bed DX3 Private MD: Diagnosis: Viral infection, unspecified;Low back pain Presentation: 07/23 16:08 Chief complaint: Patient states: COUGH X 2 WEEKS WITH BACK PAIN. Coronavirus screen: db Client denies travel out of the [place] in the last 14 days. At this time, the client does not indicate any symptoms associated with coronavirus-19. Ebola Screen: Patient negative for fever greater than or equal to 101.5 degrees Fahrenheit, and additional compatible Ebola Virus Disease symptoms Patient denies exposure to infectious person. Patient denies travel to an Ebola-affected area in the 21 days before illness onset. No symptoms or risks identified at this time. Initial Sepsis Screen: Does the patient meet any 2 criteria? No. Patient's initial sepsis screen is negative. Does the patient have a suspected source of infection? No. Patient's initial sepsis screen is negative. Risk Assessment: Do you want to hurt yourself or someone else? Patient reports no desire to harm self or others. Onset of symptoms was July 07, 2024. 16:08 Method Of Arrival: Ambulatory db 16:08 Acuity: CHARISSA 3 db Triage Assessment: 16:11 General: Appears in no apparent distress. uncomfortable, Behavior is calm, cooperative. db Pain: Complains of pain in back. Neuro: Level of Consciousness is awake, alert, obeys commands, Oriented to person, place, time, situation. Respiratory: Airway is patent Respiratory effort is even, unlabored, Respiratory pattern is regular, symmetrical. Musculoskeletal: Circulation, motion, and sensation intact. Capillary refill < 3 seconds. Historical: - Allergies: 16:11 Amoxicillin; db 16:11 Flagyl; db 16:11 Morphine; db 16:11 Bactrim; db 16:11 Toradol; db 16:11 Tramadol HCl; db - PMHx: 16:11 diabetes mellitus; Gastroparesis; Hypercholesterolemia; Hypertensive disorder; db Hypothyroidism; Hypothyroidism; kidney disease; neuropathy; Right arm blood clot; NSTEMI; - PSHx: 16:11 Cholecystectomy; db - Immunization history:: Adult Immunizations unknown. - Infectious Disease History:: Denies. - Social history:: Smoking status: Patient reports the use of cigarette tobacco products, smokes one pack cigarettes per day. Screenin:38 [facility] ED Fall Risk Assessment (Adult) History of falling in the last 3 months, db including since admission No falls in past 3 months (0 pts) Confusion or Disorientation No (0 pts) Intoxicated or Sedated No (0 pts) Impaired Gait No (0 pts) Mobility Assist Device Used No (0 pt) Altered Elimination No (0 pt) Score/Fall Risk Level 0 - 2 = Low Risk Oriented to surroundings, Maintained a safe environment. Abuse screen: Denies threats or abuse. Denies injuries from another. Nutritional screening: No deficits noted. Tuberculosis screening: No symptoms or risk factors identified. Assessment: 17:38 Reassessment: Patient appears in no apparent distress at this time. Patient and/or db family updated on plan of care and expected duration. Pain level reassessed. Neuro: Level of Consciousness is awake, alert, obeys commands. Vital Signs: 16:08 BP 108 / 74; Pulse 99; Resp 18; Temp 98.5(O); Pulse Ox 100% ; Weight 83.01 kg; Height 5 db ft. 2 in. ; 16:08 Body Mass Index 33.47 (83.01 kg, 157.48 cm) db ED Course: 15:54 Patient arrived in ED. mg5 16:02 John Saleh MD is Attending Physician. ec2 16:11 Triage completed. db 16:11 Arm band placed on. db 17:38 Patient has correct armband on for positive identification. Provided Education on: db DISCHARGE. 17:38 No provider procedures requiring assistance completed. Patient did not have IV access db during this emergency room visit. Administered Medications: 17:30 Drug: HYDROcodone-acetaminophen PO 5 mg-325 mg 1 tabs PO once Route: PO; db 17:37 Follow up: Response: No adverse reaction db 17:37 Drug: Lidoderm Topical Patch 5 % (700 mg/patch) 1 patches Topical once; leave on for 12 db hours; cover most painful area; may cut into smaller pieces Route: Topical; Site: affected area; 17:38 Follow up: Response: No adverse reaction db Medication: 17:38 VIS not applicable for this client. db Outcome: 16:22 Discharge ordered by . ec2 17:38 Discharged to home ambulatory, db 17:38 Condition: stable 17:38 Discharge instructions given to patient, Instructed on discharge instructions, follow up and referral plans. Prescriptions given X 1, 17:40 Patient left the ED. db Signatures: Joy Pires, RN RN Jada Erazo mg5 John Saleh MD MD ec2
--- NOTE | 2024-07-23 16:23 | EDPHYS ---
Physician Documentation [facility] Name: Ara Mercado Age: 39 yrs Sex: Female : 1985 Arrival Date: 07/23/2024 Time: 15:51 Bed DX3 Private MD: ED Physician John Saleh HPI: 07/23 16:24 This 39 yrs old Female presents to ER via Ambulatory with complaints of Back ec2 Pain, Cough. 16:24 Patient arrives today for evaluation of cough and cold symptoms as well as back pain. ec2 Patient reports she has been having issues with back pain, this is subsequently been exacerbated by her frequent cough. No vomiting, no diarrhea. Patient reports no falls injuries or trauma. Has been taking Tylenol with minimal alleviation in symptoms.. Historical: - Allergies: 16:11 Amoxicillin; db 16:11 Flagyl; db 16:11 Morphine; db 16:11 Bactrim; db 16:11 Toradol; db 16:11 Tramadol HCl; db - PMHx: 16:11 diabetes mellitus; Gastroparesis; Hypercholesterolemia; Hypertensive disorder; db Hypothyroidism; Hypothyroidism; kidney disease; neuropathy; Right arm blood clot; NSTEMI; - PSHx: 16:11 Cholecystectomy; db - Immunization history:: Adult Immunizations unknown. - Infectious Disease History:: Denies. - Social history:: Smoking status: Patient reports the use of cigarette tobacco products, smokes one pack cigarettes per day. ROS: 16:24 Constitutional: as per hpi ec2 Exam: 16:24 Constitutional: GEN: NAD Head: atraumatic Eyes: EOMI Ears: External ears are ec2 normal. CV: regular rate LUNGS: no respiratory distress ABD: non-distended SKIN: no evidence of rashes MSK: no evidence of trauma, reproducible upper back and mid back TTP without C/T/L spine deformities or TTP. Vital Signs: 16:08 BP 108 / 74; Pulse 99; Resp 18; Temp 98.5(O); Pulse Ox 100% ; Weight 83.01 kg; Height 5 db ft. 2 in. ; 16:08 Body Mass Index 33.47 (83.01 kg, 157.48 cm) db MDM: 16:11 Patient medically screened. ec2 16:24 Data reviewed: vital signs. ED course: Patient arrives today for URI signs and symptoms ec2 along with back pain. Examination remarkable for reproducible back pain without deformities. Will treat the patient symptoms, instructed her to take [id number] medications for URI. Suspect viral infection, doubt pneumonia. . Administered Medications: 17:30 Drug: HYDROcodone-acetaminophen PO 5 mg-325 mg 1 tabs PO once Route: PO; db 17:37 Follow up: Response: No adverse reaction db 17:37 Drug: Lidoderm Topical Patch 5 % (700 mg/patch) 1 patches Topical once; leave on for 12 db hours; cover most painful area; may cut into smaller pieces Route: Topical; Site: affected area; 17:38 Follow up: Response: No adverse reaction db Disposition Summary: 07/23/24 16:22 Discharge Ordered Notes: Location: Home ec2 Condition: Stable ec2 Diagnosis - Viral infection, unspecified ec2 - Low back pain ec2 Followup: ec2 - With: Private Physician - When: - Reason: Re-evaluation by your physician Discharge Instructions: - Discharge Summary Sheet ec2 - Acute Back Pain, Adult ec2 Forms: - Medication Reconciliation Form ec2 - Antibiotic Education ec2 - Prescription Opioid Use ec2 - Patient Portal Instructions ec2 - Leadership Thank You Letter ec2 Prescriptions: - methocarbamol 500 mg Oral tablet - take 2 tablets ORAL route 4 times per day; 20 tablet; Refills: 0, Product ec2 Selection Permitted Signatures: Joy Pires, RN RN John Rosa MD MD ec2
[2024-07-23] MEDS ORDERED: LIDOCAINE 4% PATCH ONE (17:32)
[2024-07-23] MEDS ORDERED: HYDROCODONE/APAP 5/325 MG TAB ONE (17:32)
[2024-07-23 18:07] VITALS: BP 108/74; TEMP 98.5; O2SAT 100
== END 2024-07-23 17:40 | disposition home or self-care (01) ==
LOC: ER 15:51
DX: B34.9 Viral infection, unspecified (principal); M54.50 Low back pain, unspecified; F17.210 Nicotine dependence, cigarettes, uncomplicated
CPT/HCPCS: 99283; J2001

== ENCOUNTER 2024-07-29 14:53 | Emergency (ER) | payer OTHER ==
[2024-07-29] MEDS ORDERED: ONDANSETRON 4 MG/2 ML VIAL ONE (15:55)
[2024-07-29 16:19] LABS: Specific Gravity 1.011 (1.005-1.030)
[2024-07-29 16:27] LABS: Absolute Eosinophils 0.3 K/uL (0-0.5); Absolute Lymphocytes (CBC) 5.8 K/uL (0.7-4.9); Absolute Monocytes 0.6 K/uL (0.1-1.3); Absolute Neutrophil 1.9 K/uL (1.8-8.0); Basophils % 0.6 % (0-1.3); Eosinophils % 3.1 % (0-4.4); Hematocrit 35.9 % (36.0-45.0); Hemoglobin 11.8 g/dL (12.0-15.0); Lymphocytes % 67.7 % (15.3-44.8); MCH 31.2 pg (27.0-35.0); MCHC 32.7 g/dL (32.0-36.0); MCV 95.5 fL (80-100); MPV 7.7 fL (7.6-11.3); Monocytes % 6.8 % (3.3-12.3); Neutrophils % 21.8 % (41.7-73.7); Nucleated Red Blood Cells % 0.2 % (0-0); Platelets 275 thou/uL (152-406); RBC Red Blood Cell Count 3.77 M/uL (3.86-4.86); Red Cell Distribution Width 13.8 % (12.1-15.2)
[2024-07-29 16:37] LABS: Specific Gravity 1.011 (1.005-1.030); Urine Bilirubin NEGATIVE (Negative); Urine Blood Negative (Negative); Urine Clarity Clear (Clear); Urine Color Colorless (Yellow); Urine Glucose 4+ (Over) (Negative); Urine Ketones NEGATIVE (Negative); Urine Microscopic Reflex YN NO UMIC; Urine Nitrite NEGATIVE (Negative); Urine Protein NEGATIVE (Negative); Urine Urobilinogen Normal (Normal)
[2024-07-29 16:38] LABS: Sqamous Epithelial <5 /HPF (None Seen); Urine Bacteria <20 /HPF (<20); Urine Culture Reflex Order NOT NEEDED; Urine Mucus Slight /HPF (None Seen); Urine RBC <5 /HPF (None Seen); Urine WBC <5 /HPF (<5)
[2024-07-29 16:40] LABS: Albumin 2.9 g/dL (3.4-5.0); Albumin/Globulin Ratio 0.6 (1.1-1.8); Anion Gap 7.2 mEq/L (5.0-15.0); Bilirubin Total 0.7 mg/dL (0.2-1.0); Globulin 4.7 g/dL (2.3-3.5); Potassium 4.2 mEq/L (3.5-5.1); Protein, Total 7.6 g/dL (6.4-8.2)
[2024-07-29] MEDS ORDERED: DIAZEPAM 10 MG/2 ML INJ SYRINGE ONE (16:47)
[2024-07-29] MEDS ORDERED: METHOCARBAMOL 1,000 MG/10 ML VIAL ONE (16:48)
[2024-07-29] MEDS ORDERED: dexAMETHasone 10 MG/ML VIAL ONE (16:48)
[2024-07-29] MEDS ORDERED: NA CHLORIDE 0.9% 50 ML ONE (16:49)
[2024-07-29 17:21] LABS: Atypical Lymphocytes 11 %; Blood Morphology Comment NOT SEEN (NOT SEEN); Differential Total Cells Count 100; Eosinophils 4 % (0-3); Lymphocytes 51 % (15-42); Monocytes 7 % (0-10); Platelet Estimate ADEQ; Segmented Neutrophils 26 % (40-80)
--- NOTE | 2024-07-29 17:50 | RAD REPORT ---
EXAM DESCRIPTION: CT - Stone Protocol - 07/29/2024 4:36 pm CLINICAL HISTORY: FLANK PAIN COMPARISON: Abdomen Pelvis Wo Contrast dated 07/18/2023; Abdomen Pelvis Wo Contrast dated 05/10/20 23; Abdomen Pelvis Wo Contrast dated 01/22/2023; Abdomen Pelvis W Contrast dated 01/02/2023 TECHNIQUE: Thin cut axial CT imaging of the abdomen and pelvis was performed without IV contrast. Mu ltiplanar reformats were generated and reviewed. All CT scans are performed using dose optimization technique as appropriate and may include automated exposure control or mA/KV adjustment according to patient size. FINDINGS: No suspicious findings in the lung bases. The liver, spleen, adrenal glands, and pancreas show no suspicious findings. Gallbladder was surgical ly removed. Symmetric renal contour, without suspicious parenchymal findings within limits of noncontrast techniq ue. No evidence of radiopaque calculi or hydroureteronephrosis. No dilated bowel loops or bowel wall thickening. No free air, free fluid or inflammatory stranding. N o hernia, mass or bulky lymphadenopathy. IUD in place. Small left adnexal 2.4 cm cyst, likely physiol ogic. The urinary bladder is without significant finding. No suspicious bony findings. IMPRESSION: No acute intra-abdominal process.
--- NOTE | 2024-07-29 18:43 | EDPHYS ---
Physician Documentation [facility] Name: Ara Mercado Age: 39 yrs Sex: Female : 1985 Arrival Date: 07/29/2024 Time: 14:53 Bed 20 Private MD: ED Physician Mahamed Mcclellan HPI: 07/29 15:30 This 39 yrs old Female presents to ER via Ambulatory with complaints of Back Pain - cp middle, Low Back Pain. 15:30 The patient presents with pain pain. The symptoms are located in the right flank and cp right mid and right low back. 15:30 Onset: The symptoms/episode began/occurred for weeks. cp 15:30 The pain radiates to the abdomen. Associated signs and symptoms: Pertinent negatives: cp chest pain, constipation, fever, hematuria, incontinence, numbness, urinary retention, vomiting, weakness. The problem was sustained from unknown cause. Severity of symptoms: in the emergency department the symptoms are unchanged, despite home interventions. The patient has been recently seen at the [facility] Emergency Department, for similar complaints several days ago and prescribed muscle relaxer and lidocaine patch w/o improvement. patient reports she has not followed up with pcp. 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 - Infectious Disease History:: Denies. - Social history:: Smoking status: Patient reports the use of cigarette tobacco products, smokes one pack cigarettes per day. ROS: 15:35 Constitutional: Negative for chills, fever, poor PO intake, cp 15:35 Eyes: Negative for injury, pain, redness, and discharge, cp 15:35 Cardiovascular: Negative for chest pain, edema, palpitations, 15:35 Respiratory: Negative for cough, shortness of breath, wheezing, 15:35 Abdomen/GI: Positive for abdominal pain, Negative for vomiting, diarrhea, constipation, 15:35 Back: Positive for pain at rest, pain with movement, 15:35 : Negative for urinary symptoms, difficulty urinating, bladder incontinence, 15:35 Neuro: Negative for altered mental status, dizziness, headache, numbness, weakness, 15:35 All other systems are negative, Exam: 15:40 Constitutional: The patient appears in no acute distress, alert, awake, cp non-diaphoretic, non-toxic, well developed, well nourished, uncomfortable, 15:40 Head/Face: Normocephalic, atraumatic. cp 15:40 Eyes: Periorbital structures: appear normal, Conjunctiva: normal, no exudate, no injection, Sclera: no appreciated abnormality, Lids and lashes: appear normal, bilaterally, 15:40 ENT: External ear(s): are unremarkable, Nose: is normal, Mouth: Lips: moist, Oral mucosa: pink and intact, moist, Posterior pharynx: Airway: no evidence of obstruction, patent, 15:40 Chest/axilla: Inspection: normal, 15:40 Cardiovascular: Rate: normal, Rhythm: regular, 15:40 Respiratory: the patient does not display signs of respiratory distress, Respirations: normal, Breath sounds: are clear throughout, no decreased breath sounds, no stridor, no wheezing, 15:40 Abdomen/GI: Inspection: abdomen appears normal, Bowel sounds: active, all quadrants, Palpation: soft, in all quadrants, moderate abdominal tenderness, in the posterior aspect of right lateral abdomen, anterior aspect of right lateral abdomen and right lower quadrant, rebound tenderness, is not appreciated, involuntary guarding, is not appreciated, 15:40 Back: pain, that is moderate, of the right mid back and right low back, ROM is painful, with all movement, 15:40 Skin: no rash present. 15:40 Neuro: Orientation: to person, place \T\ time. Mentation: is normal, Motor: moves all fours, strength is normal, Sensation: is normal, Vital Signs: 15:00 BP 112 / 70; Pulse 89; Resp 16; Temp 97.7; Pulse Ox 100% ; Weight 83.01 kg; Height 5 dd2 ft. 2 in. ; 15:30 BP 116 / 67; Pulse 83; Resp 16; Pulse Ox 97% on R/A; tl4 16:03 BP 112 / 91; Pulse 80; Resp 16; Pulse Ox 97% on R/A; tl4 20:06 BP 118 / 88; Pulse 82; Resp 16; Pulse Ox 97% ; vc1 15:00 Body Mass Index 33.47 (83.01 kg, 157.48 cm) dd2 MDM: 15:15 Patient medically screened. cp 16:00 Differential diagnosis: Pyelonephritis sciatica, muscle strain, uti, kidney stone. 18:41 Data reviewed: vital signs, nurses notes, lab test result(s), radiologic studies, CT cp scan, and as a result, I will discharge patient. 18:41 I considered the following discharge prescriptions or medication management in the emergency department Medications were administered in the Emergency Department. See MAR. Counseling: I had a detailed discussion with the patient and/or guardian regarding the historical points, exam findings, and any diagnostic results supporting the discharge/admit diagnosis, lab results, radiology results, the need for outpatient follow up, a family practitioner, to return to the emergency department if symptoms worsen or persist or if there are any questions or concerns that arise at home. Response to treatment: the patient's symptoms have mildly improved after treatment, and as a result, I will discharge patient. 07/29 15:24 Order name: CBC with Diff; Complete Time: 18:05 07/29 17:17 Interpretation: Normal except: RBC 3.77; HGB 11.8; HCT 35.9; GEMA% 21.8; LYM% 67.7; LYMA cp 5.8. 07/29 15:24 Order name: CMP; Complete Time: 17:17 07/29 17:17 Interpretation: Normal except: NA 133; GLUC 292; BUN 22; CRE 2.11; GFR 30; ALK 647; ALT cp 85; AST 114; ALB 2.9; GLOB 4.7; A/G 0.6. 07/29 15:24 Order name: Lipase; Complete Time: 17:17 cp 07/29 15:24 Order name: Test, Urine; Complete Time: 17:17 cp 07/29 15:24 Order name: Urinalysis w/ reflexes; Complete Time: 17:17 cp 07/29 16:29 Order name: Manual Differential; Complete Time: 18:05 EDMS 07/29 18:05 Interpretation: Normal except: SEGS 26; LYM 51; EOS 4. cp 07/29 18:48 Order name: Glucose, Ancillary Testing EDMS 07/29 15:25 Order name: CT Stone Protocol; Complete Time: 18:05 cp 07/29 18:07 Interpretation: Report reviewed. cp 07/29 15:24 Order name: IV Saline Lock; Complete Time: 16:13 cp 07/29 15:24 Order name: Labs collected and sent; Complete Time: 16:13 cp Administered Medications: 16:13 Drug: Ondansetron IVP 4 mg IVP once; over 2 minutes Route: IVP; Infused Over: 2 mins; tl4 Site: left antecubital; 18:33 Follow up: Response: No adverse reaction; Nausea is decreased tl4 16:58 Drug: Methocarbamol IVPB 1 grams IVPB once over 1 hrs; if test negative tl4 Route: IVPB; Infused Over: 1 hrs; Site: left antecubital; Delivery: Primary tubing; 18:32 Follow up: Response: No adverse reaction; Pain is decreased; IV Status: Completed tl4 infusion; IV Intake: 50ml 16:59 Drug: Diazepam IVP 5 mg IVP once; if test negative Route: IVP; Site: left tl4 antecubital; 17:25 Follow up: Response: No adverse reaction; Pain is decreased tl4 19:05 Not Given (Patient Refused): Decadron - [id number] mg IVP once; if test tl4 negative 19:41 Drug: Hydrocodone-Acetaminophen PO (7.5 mg-325 mg) 1 tabs PO once; RASS on ADMIN: vc1 Combtv4, Very Agttd3, Agttd2, Rstlss1, AlertClm0, Drwsy-1, Lt Sdtn-2, Mod Sdtn-3, Dp Sdtn-4, UnArsble-5 Route: PO; 19:41 Follow up: Response: Medication administered at discharge. vc1 Disposition: 07/30 09:12 I was immediately available on-site in the Emergency Department for consultation in the ms3 care of the patient. Disposition Summary: 07/29/24 18:42 Discharge Ordered Notes: Location: Home cp Problem: an ongoing problem cp Symptoms: have improved cp Condition: Stable cp Diagnosis - Dorsalgia, unspecified cp Followup: cp - With: Private Physician - When: 2 - 3 days - Reason: Recheck today's complaints Discharge Instructions: - Discharge Summary Sheet cp - Musculoskeletal Pain cp - Back Exercises cp Forms: - Medication Reconciliation Form cp - Antibiotic Education cp - Prescription Opioid Use cp - Patient Portal Instructions cp - Leadership Thank You Letter cp Prescriptions: - Cyclobenzaprine 10 mg Oral Tablet - take 1 tablet ORAL route every 8 hours As needed; 30 tablet; Refills: 0, cp Product Selection Permitted - Medrol (Owen) 4 mg Oral Tablets, Dose Pack - take 1 tablet ORAL route as directed - follow package instructions; 1 packet; cp Refills: 0, Product Selection Permitted Signatures: Dispatcher [employer] EDRashad Milan PA PA cp Sims, Marcus, DO ms3 Lora Victor RN RN vc1 Demarco Gutierrez RN RN tl4 ZAKI CAMPOS RN RN dd2
--- NOTE | 2024-07-29 18:43 | ER ---
Nurse's Notes [facility] Name: Ara Mercado Age: 39 yrs Sex: Female : 1985 Arrival Date: 07/29/2024 Time: 14:53 Bed 20 Private MD: Diagnosis: Dorsalgia, unspecified Presentation: 07/29 15:00 Chief complaint: Patient states: Pt states middle and lower back pain. States she was dd2 here a couple days ago and was given muscle relaxers and lidocaine patch and it continues to hurt. denies urinary issues. Coronavirus screen: At this time, the client does not indicate any symptoms associated with coronavirus-19. Ebola Screen: No symptoms or risks identified at this time. Initial Sepsis Screen: Does the patient meet any 2 criteria? No. Patient's initial sepsis screen is negative. Does the patient have a suspected source of infection? No. Patient's initial sepsis screen is negative. Risk Assessment: Do you want to hurt yourself or someone else? Patient reports no desire to harm self or others. Onset of symptoms is unknown. 15:00 Method Of Arrival: Ambulatory dd2 15:00 Acuity: CHARISSA 3 dd2 Triage Assessment: 15:07 General: Appears in no apparent distress. Behavior is calm, cooperative, appropriate dd2 for age. Pain: Complains of pain in lumbar area, right mid back and right low back. Musculoskeletal: Range of motion: intact in all extremities. 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 - Infectious Disease History:: Denies. - Social history:: Smoking status: Patient reports the use of cigarette tobacco products, smokes one pack cigarettes per day. Screenin:42 [facility] ED Fall Risk Assessment (Adult) History of falling in the last 3 months, tl4 including since admission No falls in past 3 months (0 pts) Confusion or Disorientation No (0 pts) Intoxicated or Sedated No (0 pts) Impaired Gait No (0 pts) Mobility Assist Device Used No (0 pt) Altered Elimination No (0 pt) Score/Fall Risk Level 0 - 2 = Low Risk Oriented to surroundings, Maintained a safe environment, Educated pt \T\ family on fall prevention, incl call for assistance when getting out of bed, Assessed \T\ reinforced patient's understanding of fall precautions, Provided non-skid footwear. Abuse screen: Denies threats or abuse. Denies injuries from another. Nutritional screening: No deficits noted. Tuberculosis screening: No symptoms or risk factors identified. Assessment: 16:00 General: Appears uncomfortable. Pain: Complains of pain in back. Neuro: Level of tl4 Consciousness is awake, alert, obeys commands, Oriented to person, place, time, situation, Moves all extremities. Full function Gait is steady, Speech is normal. Cardiovascular: Capillary refill < 3 seconds Patient's skin is warm and dry. Respiratory: Airway is patent Respiratory effort is even, unlabored, Respiratory pattern is regular, symmetrical, Breath sounds are clear bilaterally. GI: No signs and/or symptoms were reported involving the gastrointestinal system. : No signs and/or symptoms were reported regarding the genitourinary system. EENT: No signs and/or symptoms were reported regarding the EENT system. Derm: No signs and/or symptoms reported regarding the dermatologic system. Musculoskeletal: Reports pain in back. 20:07 Reassessment: No changes from previously documented assessment. Patient and/or family vc1 updated on plan of care and expected duration. Pain level reassessed. Patient is alert, oriented x 3, equal unlabored respirations, skin warm/dry/pink. Vital Signs: 15:00 BP 112 / 70; Pulse 89; Resp 16; Temp 97.7; Pulse Ox 100% ; Weight 83.01 kg; Height 5 dd2 ft. 2 in. ; 15:30 BP 116 / 67; Pulse 83; Resp 16; Pulse Ox 97% on R/A; tl4 16:03 BP 112 / 91; Pulse 80; Resp 16; Pulse Ox 97% on R/A; tl4 20:06 BP 118 / 88; Pulse 82; Resp 16; Pulse Ox 97% ; vc1 15:00 Body Mass Index 33.47 (83.01 kg, 157.48 cm) dd2 ED Course: 14:56 Patient arrived in ED. im 14:56 Rashad Sandoval PA is PHCP. cp 14:56 Mahamed Mcclellan DO is Attending Physician. cp 15:07 Triage completed. dd2 15:07 Arm band placed on right wrist. Patient placed in an exam room, on a stretcher, on dd2 pulse oximetry, Patient notified of wait time. 15:45 Demarco Gutierrez, VÍCTOR is Primary Nurse. tl4 16:13 CBC with Diff Sent. tl4 16:13 CMP Sent. tl4 16:13 Lipase Sent. tl4 16:13 Test, Urine Sent. tl4 16:13 Urinalysis w/ reflexes Sent. tl4 16:13 Initial lab(s) drawn, by me, sent to lab. Urine collected: clean catch specimen. tl4 Inserted saline lock: 22 gauge in left antecubital area, using aseptic technique. Blood collected. Flushed with 10 mL NS. 16:38 CT Stone Protocol In Process Unspecified. EDMS 16:45 Patient has correct armband on for positive identification. Placed in gown. Bed in low tl4 position. Call light in reach. Side rails up X 1. Provided Education on: call so, ed process. Client placed on continuous cardiac and pulse oximetry monitoring. NIBP monitoring applied. Door closed. Noise minimized. Lights dimmed. Moved to private room. Warm blanket given. 20:07 No provider procedures requiring assistance completed. IV discontinued, intact, vc1 bleeding controlled, No redness/swelling at site. Pressure dressing applied. Administered Medications: 16:13 Drug: Ondansetron IVP 4 mg IVP once; over 2 minutes Route: IVP; Infused Over: 2 mins; tl4 Site: left antecubital; 18:33 Follow up: Response: No adverse reaction; Nausea is decreased tl4 16:58 Drug: Methocarbamol IVPB 1 grams IVPB once over 1 hrs; if test negative tl4 Route: IVPB; Infused Over: 1 hrs; Site: left antecubital; Delivery: Primary tubing; 18:32 Follow up: Response: No adverse reaction; Pain is decreased; IV Status: Completed tl4 infusion; IV Intake: 50ml 16:59 Drug: Diazepam IVP 5 mg IVP once; if test negative Route: IVP; Site: left tl4 antecubital; 17:25 Follow up: Response: No adverse reaction; Pain is decreased tl4 19:05 Not Given (Patient Refused): Decadron - [id number] mg IVP once; if test tl4 negative 19:41 Drug: Hydrocodone-Acetaminophen PO (7.5 mg-325 mg) 1 tabs PO once; RASS on ADMIN: vc1 Combtv4, Very Agttd3, Agttd2, Rstlss1, AlertClm0, Drwsy-1, Lt Sdtn-2, Mod Sdtn-3, Dp Sdtn-4, UnArsble-5 Route: PO; 19:41 Follow up: Response: Medication administered at discharge. vc1 Medication: 16:42 VIS not applicable for this client. tl4 Intake: 18:32 IV: 50ml; Total: 50ml. tl4 Outcome: 18:42 Discharge ordered by MD. cp 20:08 Discharged to home ambulatory, vc1 20:08 Condition: good 20:08 Discharge instructions given to patient, Instructed on discharge instructions, follow up and referral plans. medication usage, Demonstrated understanding of instructions, follow-up care, medications, Prescriptions given X 2, 20:08 Patient left the ED. vc1 Signatures: Dispatcher [employer] EDMS Rashad Sandoval PA PA cp Calcote, Vanessa, RN RN vc1 Henny Mueller Toni, RN RN tl4 ZAKI CAMPOS RN RN dd2 Corrections: (The following items were deleted from the chart) 16:45 16:42 [facility] ED Fall Risk Assessment (Adult) History of falling in the last 3 months, tl4 including since admission No falls in past 3 months (0 pts) Confusion or Disorientation No (0 pts) Intoxicated or Sedated No (0 pts) Impaired Gait No (0 pts) Mobility Assist Device Used No (0 pt) Altered Elimination No (0 pt) Score/Fall Risk Level 0 - 2 = Low Risk Oriented to surroundings, Maintained a safe environment, Educated pt \T\ family on fall prevention, incl call for assistance when getting out of bed, Assessed \T\ reinforced patient's understanding of fall precautions, tl4
[2024-07-29] MEDS ORDERED: HYDROCODONE/APAP 7.5/325 MG TAB ONE (19:32)
[2024-07-29 20:23] VITALS: TEMP 97.7
[2024-07-29 20:26] VITALS: O2SAT 97
[2024-07-29 20:30] VITALS: BP 118/88
== END 2024-07-29 20:08 | disposition home or self-care (01) ==
LOC: ER 14:53
DX: M54.9 Dorsalgia, unspecified (principal); M54.50 Low back pain, unspecified; F17.210 Nicotine dependence, cigarettes, uncomplicated
CPT/HCPCS: 96365; 85025; 36415; 81025; 82947; 81003; 83690; 80053; 76377; 74176; 96375; 99284; 96366; J3360; J1100; J2405; J2800

== ENCOUNTER 2024-11-19 12:50 | Emergency (ER) | payer OTHER ==
[2024-11-19 13:38] LABS: Specific Gravity 1.007 (1.005-1.030)
[2024-11-19 13:39] LABS: Specific Gravity 1.007 (1.005-1.030); Sqamous Epithelial <5 /HPF (None Seen); Urine Bacteria None Seen /HPF (<20); Urine Bilirubin NEGATIVE (Negative); Urine Blood Trace (Negative); Urine Clarity Turbid (Clear); Urine Color Colorless (Yellow); Urine Culture Reflex Order NOT NEEDED; Urine Glucose NEGATIVE (Negative); Urine Ketones NEGATIVE (Negative); Urine Microscopic Reflex YN ORDER UMIC; Urine Mucus Slight /HPF (None Seen); Urine Nitrite NEGATIVE (Negative); Urine Protein NEGATIVE (Negative); Urine RBC <5 /HPF (None Seen); Urine Urobilinogen Normal (Normal); Urine WBC <5 /HPF (<5)
[2024-11-19] MEDS ORDERED: HYDROCODONE/APAP 5/325 MG TAB ONE (14:18)
--- NOTE | 2024-11-19 14:24 | EDPHYS ---
Physician Documentation [facility] Name: Ara Mercado Age: 39 yrs Sex: Female : 1985 Arrival Date: 11/19/2024 Time: 12:50 Bed 4 Private MD: ZACHARY Physician Rashad Melgoza HPI: 11/19 13:14 This 39 yrs old Female presents to ER via Unassigned with complaints of Urinary bobbi Problem, Arm Pain. 13:14 The patient or guardian complains of pain, that is acute. The complaints affect the bobbi left bicep, left antecubital area, dorsal aspect of left forearm, left tricep, left elbow and palmar aspect of left forearm. Context: The problem was sustained at an unknown location. Onset: The symptoms/episode began/occurred 3 day(s) ago. Modifying factors: The symptoms are alleviated by nothing. the symptoms are aggravated by nothing. Associated signs and symptoms: The patient has no apparent associated signs or symptoms. The patient has not experienced similar symptoms in the past. 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 - Infectious Disease History:: Denies. - Family history:: not pertinent. - Social history:: Smoking status: Patient reports the use of cigarette tobacco products, smokes one pack cigarettes per day. ROS: 13:14 Constitutional: Negative for fever, chills, and weight loss, Eyes: Negative for injury, bobbi pain, redness, and discharge, ENT: Negative for injury, pain, and discharge, Neck: Negative for injury, pain, and swelling, Cardiovascular: Negative for chest pain, palpitations, and edema, Respiratory: Negative for shortness of breath, cough, wheezing, and pleuritic chest pain, Abdomen/GI: Negative for abdominal pain, nausea, vomiting, diarrhea, and constipation, Back: Negative for injury and pain, Skin: Negative for injury, rash, and discoloration, Neuro: Negative for headache, weakness, numbness, tingling, and seizure, Psych: Negative for depression, anxiety, suicide ideation, homicidal ideation, and hallucinations, Allergy/Immunology: Negative for hives, rash, and allergies, Endocrine: Negative for neck swelling, polydipsia, polyuria, polyphagia, and marked weight changes, Hematologic/Lymphatic: Negative for swollen nodes, abnormal bleeding, and unusual bruising, 13:14 : Positive for urinary frequency, burning with urination, 13:14 MS/extremity: Positive for pain, of the left arm, Exam: 13:14 Constitutional: This is a well developed, well nourished patient who is awake, alert, bobbi and in no acute distress. Head/Face: Normocephalic, atraumatic. Eyes: Pupils equal round and reactive to light, extra-ocular motions intact. Lids and lashes normal. Conjunctiva and sclera are non-icteric and not injected. Cornea within normal limits. Periorbital areas with no swelling, redness, or edema. ENT: Nares patent. No nasal discharge, no septal abnormalities noted. Tympanic membranes are normal and external auditory canals are clear. Oropharynx with no redness, swelling, or masses, exudates, or evidence of obstruction, uvula midline. Mucous membranes moist. Neck: Trachea midline, no thyromegaly or masses palpated, and no cervical lymphadenopathy. Supple, full range of motion without nuchal rigidity, or vertebral point tenderness. No Meningismus. Chest/axilla: Normal chest wall appearance and motion. Nontender with no deformity. No lesions are appreciated. Cardiovascular: Regular rate and rhythm with a normal S1 and S2. No gallops, murmurs, or rubs. Normal PMI, no JVD. No pulse deficits. Respiratory: Lungs have equal breath sounds bilaterally, clear to auscultation and percussion. No rales, rhonchi or wheezes noted. No increased work of breathing, no retractions or nasal flaring. Abdomen/GI: Soft, non-tender, with normal bowel sounds. No distension or tympany. No guarding or rebound. No evidence of tenderness throughout. Back: No spinal tenderness. No costovertebral tenderness. Full range of motion. Skin: Warm, dry with normal turgor. Normal color with no rashes, no lesions, and no evidence of cellulitis. Neuro: Awake and alert, GCS 15, oriented to person, place, time, and situation. Cranial nerves II-XII grossly intact. Motor strength 5/5 in all extremities. Sensory grossly intact. Cerebellar exam normal. Normal gait. Psych: Awake, alert, with orientation to person, place and time. Behavior, mood, and affect are within normal limits. 13:14 Musculoskeletal/extremity: ROM: no acute changes, intact in all extremities, full active range of motion, full passive range of motion, Circulation is intact in all extremities. Sensation intact. Compartment Syndrome exam of affected extremity: is normal. Weight bearing: able to fully bear weight, DVT Exam: no swelling, negative Homans' sign noted on exam, no appreciated bluish discoloration, no erythema, no increased warmth, tenderness, Vital Signs: 13:10 BP 144 / 73; Pulse 76; Resp 16; Temp 98.4; Pulse Ox 100% on R/A; Weight 81.19 kg; db Height 5 ft. 2 in. ; Pain 10/10; 13:10 Body Mass Index 32.74 (81.19 kg, 157.48 cm) db 13:10 Pain Scale: Adult db MDM: 12:59 Medical Screening Exam initiated [facility] 13:16 Differential diagnosis: closed fracture, contusion, tendonitis. Data reviewed: vital [facility] signs, nurses notes, lab test result(s), urinalysis, radiologic studies, doppler, ultrasound. Consideration of Admission/Observation Escalation of care including admission/observation considered. I considered the following discharge prescriptions or medication management in the emergency department Medications were administered in the Emergency Department. See MAR. Test considered but Not performed: Labs: NO CBC, NO COMP MET. Care significantly affected by the following chronic conditions: Diabetes, Hypertension, Chronic Kidney Disease, Liver Disease, GASTROENTERITIS,GASTROPARESIS. 11/19 13:11 Order name: Urinalysis w/ reflexes; Complete Time: 14:22 [facility] 11/19 13:11 Order name: Urine Culture [facility] 11/19 13:11 Order name: PREGU; Complete Time: 14:22 [facility] 11/19 13:11 Order name: US Extremity Venous Unilateral Ltd [facility] 11/19 13:16 Order name: UPPER EXTREMITY VENOUS UNILATE EDMS Administered Medications: 14:21 Drug: [place] PO 5 mg-325 mg 2 tabs PO once Route: PO; cm10 14:41 Follow up: Response: No adverse reaction cm10 14:40 Drug: Ciprofloxacin PO 500 mg PO once Route: PO; cm10 14:40 Follow up: Response: Medication administered at discharge. cm10 Disposition Summary: 11/19/24 14:23 Discharge Ordered Notes: Location: Home bobbi Problem: new bobbi Symptoms: have improved bobbi Condition: Stable bobbi Diagnosis - Dysuria bobbi - Pain in left arm bobbi Followup: bobbi - With: Private Physician - When: 2 - 3 days - Reason: Recheck today's complaints, Continuance of care, Re-evaluation by your physician Discharge Instructions: - Discharge Summary Sheet bobbi - Dysuria bobbi - Musculoskeletal Pain bobbi - How to Use Cold Therapy, [id number] [facility] Forms: - Medication Reconciliation Form bobbi - Antibiotic Education bobbi - Prescription Opioid Use bobbi - Patient Portal Instructions [facility] - Leadership Thank You Letter [facility] Prescriptions: - Eliquis 5 mg Oral tablet - take 1 tablet ORAL route every 12 hours; 30 tablet; Refills: 0, Product bobbi Selection Permitted - Cipro 250 mg Oral tablet - take 1 tablet ORAL route every 12 hours; 14 tablet; Refills: 0, Product bobbi Selection Permitted Signatures: Dispatcher [employer] EDMS Rashad Melgoza MD MD cha Benton, Danielle, RN RN db Joceline Land RN RN cm10 Corrections: (The following items were deleted from the chart) 13:12 13:12 Urinalysis+U.LAB.BRZ ordered. EDMS EDMS 13:12 13:12 Urine Culture+BA.LAB.BRZ ordered. EDMS EDMS 13:12 13:12 Test, Urine+UC.LAB.BRZ ordered. EDMS EDMS
--- NOTE | 2024-11-19 14:24 | ER ---
Nurse's Notes [facility] Name: Ara Mercado Age: 39 yrs Sex: Female : 1985 Arrival Date: 11/19/2024 Time: 12:50 Bed 4 Private MD: Diagnosis: Dysuria;Pain in left arm Presentation: 11/19 13:10 Chief complaint: Patient states: LOWER BACK PAIN FEELS LIKE UTI, WITH FREQUENT db URINATION X 1 MONTH GETTING WORSE. LEFT ARM PAIN CONCERNED FOR BLOOD CLOT WITH SWELLING X 4 DAYS. Coronavirus screen: Client denies travel out of the [place] in the last 14 days. At this time, the client does not indicate any symptoms associated with coronavirus-19. Ebola Screen: Patient negative for fever greater than or equal to 101.5 degrees Fahrenheit, and additional compatible Ebola Virus Disease symptoms Patient denies exposure to infectious person. Patient denies travel to an Ebola-affected area in the 21 days before illness onset. No symptoms or risks identified at this time. Initial Sepsis Screen: Does the patient meet any 2 criteria? No. Patient's initial sepsis screen is negative. Does the patient have a suspected source of infection? No. Patient's initial sepsis screen is negative. Risk Assessment: Do you want to hurt yourself or someone else? Patient reports no desire to harm self or others. Onset of symptoms was November 15, 2024. 13:10 Method Of Arrival: Ambulatory db 13:10 Acuity: CHARISSA 3 db Triage Assessment: 13:15 General: Appears in no apparent distress. comfortable, Behavior is calm, cooperative. db Pain: Complains of pain in low back area and left arm. Neuro: Level of Consciousness is awake, alert, obeys commands, Oriented to person, place, time, situation. Respiratory: Airway is patent Respiratory effort is even, unlabored, Respiratory pattern is regular, symmetrical. : Reports urinary frequency. 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 - Infectious Disease History:: Denies. - Family history:: not pertinent. - Social history:: Smoking status: Patient reports the use of cigarette tobacco products, smokes one pack cigarettes per day. Screenin:41 [facility] ED Fall Risk Assessment (Adult) History of falling in the last 3 months, cm10 including since admission No falls in past 3 months (0 pts) Confusion or Disorientation No (0 pts) Intoxicated or Sedated No (0 pts) Impaired Gait No (0 pts) Mobility Assist Device Used No (0 pt) Altered Elimination No (0 pt) Score/Fall Risk Level 0 - 2 = Low Risk Oriented to surroundings, Maintained a safe environment, Hourly rounding (assess needs \T\ fall precautionary measures) done. Abuse screen: Denies threats or abuse. Denies injuries from another. Nutritional screening: No deficits noted. Tuberculosis screening: No symptoms or risk factors identified. Assessment: 14:41 Reassessment: Patient appears in no apparent distress at this time. No changes from cm10 previously documented assessment. Patient and/or family updated on plan of care and expected duration. Pain level reassessed. Patient is alert, oriented x 3, equal unlabored respirations, skin warm/dry/pink. Vital Signs: 13:10 BP 144 / 73; Pulse 76; Resp 16; Temp 98.4; Pulse Ox 100% on R/A; Weight 81.19 kg; db Height 5 ft. 2 in. ; Pain 10/10; 13:10 Body Mass Index 32.74 (81.19 kg, 157.48 cm) db 13:10 Pain Scale: Adult db ED Course: 12:52 Patient arrived in ED. im 12:59 Rashad Melgoza MD is Attending Physician. bobbi 13:15 Triage completed. db 13:15 Arm band placed on Patient placed in an exam room. db 13:58 UPPER EXTREMITY VENOUS UNILATE In Process Unspecified. EDMS 14:41 Patient has correct armband on for positive identification. Provided Education on: cm10 follow-up instructions. 14:41 No provider procedures requiring assistance completed. Patient did not have IV access cm10 during this emergency room visit. Administered Medications: 14:21 Drug: [place] PO 5 mg-325 mg 2 tabs PO once Route: PO; cm10 14:41 Follow up: Response: No adverse reaction cm10 14:40 Drug: Ciprofloxacin PO 500 mg PO once Route: PO; cm10 14:40 Follow up: Response: Medication administered at discharge. cm10 Medication: 14:41 VIS not applicable for this client. cm10 Outcome: 14:23 Discharge ordered by . bobbi 14:42 Discharged to home ambulatory, 10 14:42 Condition: good 14:42 Discharge instructions given to patient, Instructed on discharge instructions, follow up and referral plans. medication usage, Demonstrated understanding of instructions, follow-up care, medications, Prescriptions given X 2, 14:42 Patient left the ED. cm10 Addendum: 11/24/2024 17:20 Addendum: Culture Results: Positive urine culture. Bacteria is resistant to, has j l7 intermediate sensitivity, or is not tested against prescribed antibiotics. Report given to NAZ for further evaluation and then to professor of forestry for follow up with patient. Phone call Attempt #1 Pt notified of ESBL infection and recommended admission for IV antibiotics. Pt reports she will go to her local [facility] facility in [facility] and have them call so that we can fax them the culture report. Signatures: Dispatcher [employer] Rashad Graham MD MD cha Leal, Jahala, Joy Mullen RN, RN Henny Chi Clarissa, RN RN cm10
[2024-11-19] MEDS ORDERED: CIPROFLOXACIN HCL 500 MG TAB ONE (14:31)
[2024-11-19 14:48] VITALS: BP 144/73; TEMP 98.4; O2SAT 100
--- NOTE | 2024-11-19 16:24 | RAD REPORT ---
EXAMINATION: UPPER EXTREMITY VENOUS UNILATE CLINICAL INDICATION: Female, 39 years old. [facility] MAIN Pain;Swelling Bed Name: 4 TECHNIQUE: Complete venous duplex sonography of the left upper extremity was performed. The examinati on included compression for vein patency, color Doppler imaging and flow augmentation in response to distal compression of the internal jugular, brachiocephalic, subclavian, axillary, brachial, radia l, ulnar, cephalic and basilic veins. COMPARISON: 12/01/2023 FINDINGS: Duplex sonography testing of the veins of the left upper extremity is completed. Color flow imaging s hows all veins to be compressible with appropriate color filling. Pulsatile and phasic flow is present within the upper extremity deep and superficial veins examined. IMPRESSION: There is no deep vein or superficial vein thrombosis.
== END 2024-11-19 14:42 | disposition home or self-care (01) ==
LOC: ER 12:50
DX: R30.0 Dysuria (principal); M79.602 Pain in left arm; E11.9 Type 2 diabetes mellitus without complications; I10 Essential (primary) hypertension; F17.210 Nicotine dependence, cigarettes, uncomplicated
CPT/HCPCS: 81001; 81025; 87077; 87086; 87088; 87186; 93971; 99283

== ENCOUNTER 2024-11-29 13:13 | Emergency (ER) | payer OTHER ==
[2024-11-29 14:35] LABS: AST/SGOT 23 U/L (15-37); Albumin/Globulin Ratio 0.7 (1.1-1.8); Alkaline Phosphatase 173 U/L (45-117); Anion Gap 8.6 mEq/L (5.0-15.0); BUN Blood Urea Nitrogen 8 mg/dL (7-18); Bicarbonate 23 mEq/L (21-32); Bilirubin Total 0.5 mg/dL (0.2-1.0); Globulin 4.2 g/dL (2.3-3.5); Glomerular Filtration Rate 46 ml/min (=/>90); Glucose Level 195 mg/dL (74-106); Lipase 43 U/L (13-75); Potassium 3.6 mEq/L (3.5-5.1); Protein, Total 7.2 g/dL (6.4-8.2); Sodium Level 139 mEq/L (136-145)
[2024-11-29 14:38] LABS: ALT/SGPT < 14 U/L (13-56)
[2024-11-29 14:53] LABS: Absolute Eosinophils 0.5 K/uL (0-0.5); Absolute Lymphocytes (CBC) 2.7 K/uL (0.7-4.9); Absolute Monocytes 0.5 K/uL (0.1-1.3); Absolute Neutrophil 3.5 K/uL (1.8-8.0); Basophils % 0.7 % (0-1.3); Eosinophils % 7.1 % (0-4.4); Hematocrit 33.3 % (36.0-45.0); Hemoglobin 11.5 g/dL (12.0-15.0); Lymphocytes % 36.8 % (15.3-44.8); MCH 33.1 pg (27.0-35.0); MCHC 34.4 g/dL (32.0-36.0); MCV 96.2 fL (80-100); MPV 7.1 fL (7.6-11.3); Monocytes % 6.4 % (3.3-12.3); Nucleated Red Blood Cells % 0.1 % (0-0); Platelets 410 thou/uL (152-406); RBC Red Blood Cell Count 3.46 M/uL (3.86-4.86); Red Cell Distribution Width 13.2 % (12.1-15.2)
[2024-11-29 14:55] LABS: Specific Gravity 1.014 (1.005-1.030)
[2024-11-29 14:58] LABS: Specific Gravity 1.014 (1.005-1.030); Sqamous Epithelial <5 /HPF (None Seen); Urine Bacteria None Seen /HPF (<20); Urine Bilirubin NEGATIVE (Negative); Urine Blood 1+ (Negative); Urine Clarity Clear (Clear); Urine Color Light-Yellow (Yellow); Urine Culture Reflex Order NOT NEEDED; Urine Glucose TRACE (Negative); Urine Ketones NEGATIVE (Negative); Urine Microscopic Reflex YN ORDER UMIC; Urine Nitrite NEGATIVE (Negative); Urine Protein 2+ (Negative); Urine Urobilinogen Normal (Normal); Urine WBC <5 /HPF (<5); Urine WBC Clump Rare /HPF (None Seen)
[2024-11-29] MEDS ORDERED: IBUPROFEN 400 MG TAB ONE (16:23)
--- NOTE | 2024-11-29 17:00 | ER ---
Nurse's Notes [facility] Name: Ara Mercado Age: 39 yrs Sex: Female : 1985 Arrival Date: 11/29/2024 Time: 13:13 Bed 14 Private MD: Diagnosis: Person with feared health complaint in whom no diagnosis is made Presentation: 11/29 13:29 Chief complaint: Patient states: Notified on of Urine culture with ESBL and jl7 needing IV antibiotics, also reporting left low back pain radiating up to left shoulder. Coronavirus screen: At this time, the client does not indicate any symptoms associated with coronavirus-19. Ebola Screen: No symptoms or risks identified at this time. Initial Sepsis Screen: Does the patient meet any 2 criteria? No. Patient's initial sepsis screen is negative. Does the patient have a suspected source of infection? No. Patient's initial sepsis screen is negative. Risk Assessment: Do you want to hurt yourself or someone else? Patient reports no desire to harm self or others. Onset of symptoms is unknown. 13:29 Method Of Arrival: Ambulatory [facility] 13:29 Acuity: CHARISSA 3 jl7 Triage Assessment: 13:31 General: Appears in no apparent distress. uncomfortable, Behavior is calm, cooperative, jl7 appropriate for age. Pain: Complains of pain in low back area Pain currently is 8 out of 10 on a pain scale. Musculoskeletal: Swelling absent. 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 - Infectious Disease History:: ESBL, . - Social history:: Smoking status: Patient reports the use of cigarette tobacco products, smokes one-half pack cigarettes per day. Screenin:54 [facility] ED Fall Risk Assessment (Adult) History of falling in the last 3 months, me1 including since admission No falls in past 3 months (0 pts) Confusion or Disorientation No (0 pts) Intoxicated or Sedated No (0 pts) Impaired Gait No (0 pts) Mobility Assist Device Used No (0 pt) Altered Elimination No (0 pt) Score/Fall Risk Level 0 - 2 = Low Risk Maintained a safe environment, Provided non-skid footwear, Hourly rounding (assess needs \T\ fall precautionary measures) done. Abuse screen: Denies threats or abuse. Nutritional screening: No deficits noted. Tuberculosis screening: No symptoms or risk factors identified. Assessment: 14:54 General: Appears uncomfortable, well groomed, well developed, well nourished, Behavior me1 is calm, cooperative, appropriate for age, Reports Notified on of Urine culture with ESBL and needing IV antibiotics, also reporting left low back pain radiating up to left shoulder. Pain: Complains of pain in back and low back area Pain radiates to left posterior upper chest wall Pain currently is 8 out of 10 on a pain scale. Quality of pain is described as pressure, Pain began 2-3 days ago. Neuro: Level of Consciousness is awake, alert, obeys commands, Oriented to person, place, time, situation, Appropriate for age. Cardiovascular: Patient's skin is warm and dry. Respiratory: Airway is patent Respiratory effort is even, unlabored, Respiratory pattern is regular, symmetrical. GI: No signs and/or symptoms were reported involving the gastrointestinal system. : Reports pain in left in lower back radiating up to left shoulder. : Denies burning with urination, urinary frequency. EENT: No signs and/or symptoms were reported regarding the EENT system. Derm: Skin is intact, is healthy with good turgor, Skin is pink, warm \T\ dry. Musculoskeletal: Reports pain in low back area. Vital Signs: 13:29 BP 158 / 87; Pulse 88; Resp 17; Temp 97; Pulse Ox 100% ; Weight 82.1 kg; Height 5 ft. 2 jl7 in. ; Pain 8/10; 14:48 BP 126 / 63; Pulse 68; Resp 16; Pulse Ox 100% ; me1 15:09 BP 123 / 64; Pulse 72; Resp 16; Pulse Ox 100% ; me1 16:00 BP 123 / 64; Pulse 68; Resp 15; Pulse Ox 100% ; me1 17:00 BP 128 / 70; Pulse 70; Resp 15; Temp 98.6; Pulse Ox 100% ; me1 17:05 Pain 5/10; me1 13:29 Body Mass Index 33.10 (82.10 kg, 157.48 cm) jl7 13:29 Pain Scale: Adult jl7 17:05 Pain Scale: Adult md1 ED Course: 13:15 Patient arrived in ED. mr 13:20 Desire Lawrence MD is Attending Physician. gb1 13:31 Triage completed. jl7 13:31 Arm band placed on right wrist. jl7 14:12 CBC with Diff Sent. bc6 14:12 CMP Sent. bc6 14:12 Lipase Sent. bc6 14:12 Initial lab(s) drawn, by me, sent to lab. Missed attempt(s): 24 gauge in left forearm. bc6 Bleeding controlled, band aid applied, catheter tip intact. 14:43 Yamileth Beltre, RN is Primary Nurse. me1 14:47 Urinalysis w/ reflexes Sent. me1 14:47 Test, Urine Sent. me1 14:47 Urine collected: clean catch specimen, clear. me1 14:54 Patient has correct armband on for positive identification. Bed in low position. Call me1 light in reach. Side rails up X2. Provided Education on: POC. Verbalized understanding.. Client placed on continuous cardiac and pulse oximetry monitoring. NIBP monitoring applied. Pulse ox on. NIBP on. 14:54 No provider procedures requiring assistance completed. me1 17:18 Patient did not have IV access during this emergency room visit. me1 Administered Medications: 16:30 Drug: Ibuprofen PO 400 mg PO once Route: PO; me1 17:05 Follow up: Pain 5/10 Adult; Response: No adverse reaction; Pain is decreased me1 Medication: 14:54 VIS not applicable for this client. me1 Outcome: 17:00 Discharge ordered by . gb1 17:23 Discharged to home ambulatory, me1 17:23 Condition: stable 17:23 Discharge instructions given to patient, Instructed on discharge instructions, follow up and referral plans. medication usage, Demonstrated understanding of instructions, follow-up care, medications, Prescriptions given X 1, 17:24 Patient left the ED. me1 Signatures: Milena Grewal, Reg Reg mr Yumiko Richardson, RN RN jl7 Nga Hughes bc6 Yamileth Beltre RN RN me1 Desire Lawrence MD MD gb1 Corrections: (The following items were deleted from the chart) 14:49 13:29 Chief complaint: Patient states: Notified on of Urine culture with ESBL me1 and needing IV antibiotics, also reporting left low back pain radiating up to left shoulder jl7 14:54 13:29 Chief complaint: Patient states: Notified on of Urine culture with ESBL me1 and needing IV antibiotics, also reporting left low back pain radiating up to left shoulder me1
--- NOTE | 2024-11-29 17:00 | EDPHYS ---
Physician Documentation [facility] Name: Ara Mercado Age: 39 yrs Sex: Female : 1985 Arrival Date: 11/29/2024 Time: 13:13 Bed 14 Private MD: ED Physician Desire Lawrence HPI: 11/29 16:52 This 39 yrs old Female presents to ER via Ambulatory with complaints of Back gb1 Pain, IV antibiotics. 16:52 39-year-old female that was called back for positive urinalysis for ESBL. Patient is gb1 having no urinary symptoms she does not have any fevers or back pain or any signs of vaginal discharge. Patient was here on 11/19 at that time had diarrhea.. 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 - Infectious Disease History:: ESBL, . - Social history:: Smoking status: Patient reports the use of cigarette tobacco products, smokes one-half pack cigarettes per day. Exam: 16:52 Constitutional: This is a well developed, well nourished patient who is awake, alert, gb1 and in no acute distress. Head/Face: Normocephalic, atraumatic. Eyes: Pupils equal round and reactive to light, extra-ocular motions intact. Lids and lashes normal. Conjunctiva and sclera are non-icteric and not injected. Cornea within normal limits. Periorbital areas with no swelling, redness, or edema. ENT: Nares patent. No nasal discharge, no septal abnormalities noted. Tympanic membranes are normal and external auditory canals are clear. Oropharynx with no redness, swelling, or masses, exudates, or evidence of obstruction, uvula midline. Mucous membranes moist. Neck: Trachea midline, no thyromegaly or masses palpated, and no cervical lymphadenopathy. Supple, full range of motion without nuchal rigidity, or vertebral point tenderness. No Meningismus. Chest/axilla: Normal chest wall appearance and motion. Nontender with no deformity. No lesions are appreciated. Cardiovascular: Regular rate and rhythm with a normal S1 and S2. No gallops, murmurs, or rubs. Normal PMI, no JVD. No pulse deficits. Respiratory: Lungs have equal breath sounds bilaterally, clear to auscultation and percussion. No rales, rhonchi or wheezes noted. No increased work of breathing, no retractions or nasal flaring. Abdomen/GI: Soft, non-tender, with normal bowel sounds. No distension or tympany. No guarding or rebound. No evidence of tenderness throughout. Back: No spinal tenderness. No costovertebral tenderness. Full range of motion. Skin: Warm, dry with normal turgor. Normal color with no rashes, no lesions, and no evidence of cellulitis. MS/ Extremity: Pulses equal, no cyanosis. Neurovascular intact. Full, normal range of motion. Vital Signs: 13:29 BP 158 / 87; Pulse 88; Resp 17; Temp 97; Pulse Ox 100% ; Weight 82.1 kg; Height 5 ft. 2 jl7 in. ; Pain 8/10; 14:48 BP 126 / 63; Pulse 68; Resp 16; Pulse Ox 100% ; me1 15:09 BP 123 / 64; Pulse 72; Resp 16; Pulse Ox 100% ; me1 16:00 BP 123 / 64; Pulse 68; Resp 15; Pulse Ox 100% ; me1 17:00 BP 128 / 70; Pulse 70; Resp 15; Temp 98.6; Pulse Ox 100% ; me1 17:05 Pain 5/10; me1 13:29 Body Mass Index 33.10 (82.10 kg, 157.48 cm) jl7 13:29 Pain Scale: Adult jl7 17:05 Pain Scale: Adult me1 MDM: 13:33 Medical Screening Exam initiated gb1 16:52 Data reviewed: vital signs, nurses notes, lab test result(s), CBC, electrolytes, I gb1 reviewed the patient's urine culture from November 19 which showed no less than 5 WBCs, no leukocyte esterase or nitrites.. 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 Patient at this time I am considering that it was a contaminant. Patient's urine today shows no WBCs likely she has also a contaminant. I am discharging her on Macrobid but at this time I do not believe she has an infected stone, acute pyelonephritis or hemorrhagic cystitis. Patient is awake and alert and compliant with his plan of care for discharge home today.. 11/29 13:41 Order name: CBC with Diff; Complete Time: 15:08 gb1 11/29 13:41 Order name: CMP; Complete Time: 15:08 gb1 11/29 13:41 Order name: Lipase; Complete Time: 15:08 gb1 11/29 13:41 Order name: Test, Urine; Complete Time: 15:08 gb1 11/29 13:41 Order name: Urinalysis w/ reflexes; Complete Time: 15:08 gb1 11/29 13:41 Order name: IV Saline Lock; Complete Time: 14:54 gb1 11/29 13:41 Order name: Labs collected and sent; Complete Time: 14:12 gb1 Administered Medications: 16:30 Drug: Ibuprofen PO 400 mg PO once Route: PO; me1 17:05 Follow up: Pain 5/10 Adult; Response: No adverse reaction; Pain is decreased me1 Disposition Summary: 11/29/24 17:00 Discharge Ordered Notes: Location: Home gb1 Problem: an ongoing problem gb1 Symptoms: have improved gb1 Condition: Stable gb1 Diagnosis - Person with feared health complaint in whom no diagnosis is made gb1 Followup: gb1 - With: Private Physician - When: - Reason: Further diagnostic work-up Discharge Instructions: - Discharge Summary Sheet gb1 - Urinary Tract Infection, Adult, [id number] gb1 Forms: - Medication Reconciliation Form gb1 - Antibiotic Education gb1 - Prescription Opioid Use gb1 - Patient Portal Instructions gb1 - Leadership Thank You Letter gb1 Prescriptions: - Macrobid 100 mg Oral Capsule - take 1 capsule ORAL route every 12 hours for 7 days; 14 capsule; Refills: 0, gb1 Product Selection Permitted Signatures: 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
[2024-11-29 17:55] VITALS: O2SAT 100
[2024-11-29 18:01] VITALS: BP 128/70; TEMP 98.6
== END 2024-11-29 17:24 | disposition home or self-care (01) ==
LOC: ER 13:13
DX: M54.50 Low back pain, unspecified (principal); Z71.1 Person with feared health complaint in whom no diagnosis is made; F17.210 Nicotine dependence, cigarettes, uncomplicated; E03.9 Hypothyroidism, unspecified; I10 Essential (primary) hypertension; E78.00 Pure hypercholesterolemia, unspecified; E11.9 Type 2 diabetes mellitus without complications; Z86.73 Personal history of transient ischemic attack (TIA), and cerebral infarction without residual deficits; Z88.2 Allergy status to sulfonamides; Z88.1 Allergy status to other antibiotic agents; Z88.5 Allergy status to narcotic agent; Z88.8 Allergy status to other drugs, medicaments and biological substances
CPT/HCPCS: 36415; 80053; 81001; 81025; 83690; 85025; 99284

== ENCOUNTER 2025-03-15 09:48 | Emergency (ER) | payer OTHER ==
[2025-03-15] MEDS ORDERED: NA CHLORIDE 0.9% 1,000 ML ONE (10:07)
[2025-03-15] MEDS ORDERED: HYDROMORPHONE HCL 1 MG/ML INJ ONE (10:32)
[2025-03-15] MEDS ORDERED: ONDANSETRON 4 MG/2 ML VIAL ONE (10:32)
[2025-03-15 10:41] LABS: Absolute Eosinophils 0.5 K/uL (0-0.5); Absolute Lymphocytes (CBC) 2.4 K/uL (0.7-4.9); Absolute Monocytes 0.5 K/uL (0.1-1.3); Absolute Neutrophil 4.6 K/uL (1.8-8.0); Basophils % 0.6 % (0-1.3); Eosinophils % 5.9 % (0-4.4); Hematocrit 31.9 % (36.0-45.0); Hemoglobin 11.2 g/dL (12.0-15.0); Lymphocytes % 29.3 % (15.3-44.8); MCH 31.8 pg (27.0-35.0); MCHC 35.1 g/dL (32.0-36.0); MCV 90.7 fL (80-100); MPV 7.4 fL (7.6-11.3); Monocytes % 6.5 % (3.3-12.3); Neutrophils % 57.7 % (41.7-73.7); Nucleated Red Blood Cells % 0.1 % (0-0); Platelets 305 thou/uL (152-406); RBC Red Blood Cell Count 3.51 M/uL (3.86-4.86); Red Cell Distribution Width 13.2 % (12.1-15.2)
[2025-03-15 11:06] LABS: Specific Gravity 1.016 (1.005-1.030); Sqamous Epithelial <5 /HPF (None Seen); Urine Bacteria None Seen /HPF (<20); Urine Bilirubin NEGATIVE (Negative); Urine Blood 2+ (Negative); Urine Clarity Turbid (Clear); Urine Color Light-Yellow (Yellow); Urine Culture Reflex Order NOT NEEDED; Urine Glucose NEGATIVE (Negative); Urine Ketones NEGATIVE (Negative); Urine Microscopic Reflex YN ORDER UMIC; Urine Mucus Slight /HPF (None Seen); Urine Nitrite NEGATIVE (Negative); Urine Protein 2+ (Negative); Urine Urobilinogen Normal (Normal); Urine WBC <5 /HPF (<5)
[2025-03-15 11:10] LABS: Specific Gravity 1.016 (1.005-1.030)
[2025-03-15 11:14] LABS: Albumin 2.8 g/dL (3.4-5.0); Albumin/Globulin Ratio 0.7 (1.1-1.8); Alkaline Phosphatase 108 U/L (45-117); Anion Gap 7.8 mEq/L (5.0-15.0); BUN Blood Urea Nitrogen 10 mg/dL (7-18); Bicarbonate 24 mEq/L (21-32); Bilirubin Total 0.3 mg/dL (0.2-1.0); Globulin 3.8 g/dL (2.3-3.5); Glomerular Filtration Rate 43 ml/min (=/>90); Glucose Level 159 mg/dL (74-106); Protein, Total 6.6 g/dL (6.4-8.2); Sodium Level 140 mEq/L (136-145)
[2025-03-15 11:16] LABS: ALT/SGPT < 14 U/L (13-56); AST/SGOT 20 U/L (15-37); Potassium 3.8 mEq/L (3.5-5.1)
[2025-03-15] MEDS ORDERED: NA CHLORIDE 0.9% 50 ML ONE (11:29)
[2025-03-15] MEDS ORDERED: CEFTRIAXONE 1000 MG/VIAL ONE (11:29)
--- NOTE | 2025-03-15 12:10 | RAD REPORT ---
EXAMINATION: CT Stone Protocol CLINICAL INDICATION: Female, 39 years old. FLANK PAIN TECHNIQUE: CT abdomen and pelvis was performed, without IV contrast, as per department protocol. Axia l, sagittal and coronal reconstructions were obtained. One or more of the following dose reduction techniques were used: Automated exposure control, adjustment of the mA and kV according to the patien t size, and iterative reconstruction. Unless otherwise specified, incidental findings do not require dedicated imaging follow-up. COMPARISON: 07/29/2024 FINDINGS: The lack of intravenous contrast limits the sensitivity of this exam for evaluation of solid visceral organs, vascular structures, and retroperitoneum. LOWER CHEST: The visualized lung bases are clear. LIVER: Normal in size and contour. No focal lesion. BILIARY SYSTEM: Status post cholecystectomy. SPLEEN: Normal size. No focal lesion. PANCREAS: No mass, ductal dilation, or kelli-pancreatic fluid. ADRENALS: Normal; no mass. KIDNEYS AND URETERS: Normal size and contour. No hydronephrosis. URINARY BLADDER: Normal contour. GASTROINTESTINAL TRACT: No evidence of bowel obstruction, significant free fluid, free air or abscess . APPENDIX: Normal appendix. LYMPH NODES: No lymphadenopathy. MUSCULOSKELETAL: No acute or suspicious osseous abnormality. ADDITIONAL FINDINGS: IUD in place. Left adnexal 3.1 cm lesion with hyperdense 1.6 cm component caudal ly, could reflect a hemorrhagic cyst. Trace left adnexal region fluid. IMPRESSION: Left adnexal 3.1 cm lesion with hyperdense 1.6 cm component, may reflect hemorrhagic cyst or follicle . Trace left adnexal region fluid, physiologic. No other acute or concerning abnormalities in the abdomen or pelvis, with evaluation limited by lack of IV contrast.
--- NOTE | 2025-03-15 12:10 | EDPHYS ---
Physician Documentation [facility] Name: Ara Mercado Age: 39 yrs Sex: Female : 1985 Arrival Date: 03/15/2025 Time: 09:48 Bed 13 Private MD: ZACHARY Physician Rasahd Melgoza HPI: 03/15 11:31 This 39 yrs old Female presents to ER via Ambulatory with complaints of Back bobbi Pain, Pain With Urination. 11:31 The patient presents with pain that is acute, with no known mechanism of injury. The bobbi symptoms are located in the low back, lumbar area. Onset: The symptoms/episode began/occurred 2 day(s) ago. The pain does not radiate. Associated signs and symptoms: The patient has no apparent associated signs or symptoms. The problem was sustained from unknown cause. Modifying factors: The patient symptoms are alleviated by nothing, the patient symptoms are aggravated by any movement. Severity of symptoms: At their worst the symptoms were mild, in the emergency department the symptoms are unchanged. The patient has experienced similar episodes in the past, a few times. 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 - Infectious Disease History:: Denies. - Social history:: Smoking status: Patient reports the use of cigarette tobacco products, smokes one-half pack cigarettes per day. ROS: 11:32 Constitutional: Negative for fever, chills, and weight loss, Eyes: Negative for injury, bobbi pain, redness, and discharge, ENT: Negative for injury, pain, and discharge, Neck: Negative for injury, pain, and swelling, Cardiovascular: Negative for chest pain, palpitations, and edema, Respiratory: Negative for shortness of breath, cough, wheezing, and pleuritic chest pain, Abdomen/GI: Negative for abdominal pain, nausea, vomiting, diarrhea, and constipation, Back: Negative for injury and pain, MS/Extremity: Negative for injury and deformity, Skin: Negative for injury, rash, and discoloration, Neuro: Negative for headache, weakness, numbness, tingling, and seizure, Psych: Negative for depression, anxiety, suicide ideation, homicidal ideation, and hallucinations, Allergy/Immunology: Negative for hives, rash, and allergies, Endocrine: Negative for neck swelling, polydipsia, polyuria, polyphagia, and marked weight changes, Hematologic/Lymphatic: Negative for swollen nodes, abnormal bleeding, and unusual bruising, 11:32 : Positive for injury or acute deformity, urinary symptoms, urinary frequency, Exam: 11:32 Constitutional: This is a well developed, well nourished patient who is awake, alert, bobbi and in no acute distress. Head/Face: Normocephalic, atraumatic. Eyes: Pupils equal round and reactive to light, extra-ocular motions intact. Lids and lashes normal. Conjunctiva and sclera are non-icteric and not injected. Cornea within normal limits. Periorbital areas with no swelling, redness, or edema. ENT: Nares patent. No nasal discharge, no septal abnormalities noted. Tympanic membranes are normal and external auditory canals are clear. Oropharynx with no redness, swelling, or masses, exudates, or evidence of obstruction, uvula midline. Mucous membranes moist. Neck: Trachea midline, no thyromegaly or masses palpated, and no cervical lymphadenopathy. Supple, full range of motion without nuchal rigidity, or vertebral point tenderness. No Meningismus. Chest/axilla: Normal chest wall appearance and motion. Nontender with no deformity. No lesions are appreciated. Cardiovascular: Regular rate and rhythm with a normal S1 and S2. No gallops, murmurs, or rubs. Normal PMI, no JVD. No pulse deficits. Respiratory: Lungs have equal breath sounds bilaterally, clear to auscultation and percussion. No rales, rhonchi or wheezes noted. No increased work of breathing, no retractions or nasal flaring. Abdomen/GI: Soft, non-tender, with normal bowel sounds. No distension or tympany. No guarding or rebound. No evidence of tenderness throughout. Female : Normal external genitalia. Skin: Warm, dry with normal turgor. Normal color with no rashes, no lesions, and no evidence of cellulitis. MS/ Extremity: Pulses equal, no cyanosis. Neurovascular intact. Full, normal range of motion., bilateral aka Neuro: Awake and alert, GCS 15, oriented to person, place, time, and situation. Cranial nerves II-XII grossly intact. Motor strength 5/5 in all extremities. Sensory grossly intact. Cerebellar exam normal. Normal gait. Psych: Awake, alert, with orientation to person, place and time. Behavior, mood, and affect are within normal limits. 11:32 Back: pain, that is mild, that is moderate, ROM is normal, kyphosis, CVA tenderness, is absent, Vital Signs: 10:01 BP 146 / 78; Pulse 90; Resp 16; Temp 98.7; Pulse Ox 98% ; Weight 80.74 kg; Height 5 ft. iw 2 in. ; Pain 8/10; 10:30 BP 133 / 68; Pulse 99; Resp 18; Pulse Ox 99% on R/A; cm10 11:30 BP 132 / 56; Pulse 93; Resp 15; Pulse Ox 99% on R/A; cm10 12:21 BP 127 / 54; Pulse 88; Resp 18; Pulse Ox 100% on R/A; Pain 8/10; ld1 10:01 Body Mass Index 32.56 (80.74 kg, 157.48 cm) iw 10:01 Pain Scale: Adult iw 12:21 Pain Scale: Adult ld1 MDM: 09:52 Medical Screening Exam initiated bobbi 11:33 Differential diagnosis: nonspecific abdominal pain, chronic back pain, Fatigue Joint bobbi Injury Neoplasm Pyelonephritis uterine fibroids, urinary tract infection, vaginosis. Data reviewed: vital signs, nurses notes, lab test result(s), radiologic studies, CT scan. Consideration of Admission/Observation Escalation of care including admission/observation considered. Independent interpretation of the following test(s) in the Emergency Department CT Scan: My interpretation is ct stone. Test considered but Not performed: Ultrasound no abd usg. Historians other than the Patient: pt well informed. Care significantly affected by the following chronic conditions: Diabetes, Hypertension, Obesity, gastroparesis. Counseling: I had a detailed discussion with the patient and/or guardian regarding the historical points, exam findings, and any diagnostic results supporting the discharge/admit diagnosis, lab results, radiology results, the need for outpatient follow up, for definitive care, a family practitioner. 03/15 09:54 Order name: CBC with Diff; Complete Time: 11:20 [facility] 03/15 09:54 Order name: Urinalysis w/ reflexes; Complete Time: 11:20 [facility] 03/15 09:54 Order name: PREGU; Complete Time: 11:20 [facility] 03/15 09:54 Order name: CMP; Complete Time: 11:20 [facility] 03/15 12:21 Order name: CBC with Automated Diff [facility] 03/15 12:21 Order name: Comprehensive Metabolic Panel [facility] 03/15 09:54 Order name: CT Stone Protocol bobbi Administered Medications: 09:54 CANCELLED (Duplicate Order): prochlorperazinesuppository 25 mg DC once bobbi 10:27 Drug: NS 0.9% IV 1000 ml IV at 1000 ml once; to be given as a bolus over 60 minutes cm10 Route: IV; Rate: 1000 ml; Site: right upper arm; 11:21 Follow up: Response: No adverse reaction; IV Status: Completed infusion; IV Intake: cm10 1000ml 10:37 Drug: HYDROmorphone IVP 1 mg IVP once Route: IVP; Site: right upper arm; cm10 11:21 Follow up: Response: No adverse reaction cm10 10:38 Drug: Ondansetron IVP 4 mg IVP once; over 2 minutes Route: IVP; Site: right upper arm; cm10 11:21 Follow up: Response: No adverse reaction cm10 11:39 Drug: Rocephin IV 1 grams IV at per protocol once; Given slow IV push per pharmacy cm10 instructions Route: IV; Rate: per protocol; Site: right upper arm; 12:10 Drug: Hydrocodone-Acetaminophen PO (7.5 mg-325 mg) 1 tabs PO once; Verbal order per Dr. seema Melgoza Route: PO; 12:22 Follow up: Response: No adverse reaction ld1 Disposition Summary: 03/15/25 12:09 Discharge Ordered Notes: Location: Home bobbi Problem: new bobbi Symptoms: have improved bobbi Condition: Stable bobbi Diagnosis - Dysuria bobbi - Low back pain bobbi Followup: bobbi - With: Private Physician - When: 2 - 3 days - Reason: Recheck today's complaints, Continuance of care, Re-evaluation by your physician Discharge Instructions: - Discharge Summary Sheet bobbi - Acute Back Pain, Adult bobbi - Chronic Back Pain bobbi - Dysuria bobbi - Musculoskeletal Pain [facility] Forms: - Medication Reconciliation Form bobbi - Antibiotic Education bobbi - Prescription Opioid Use bobbi - Patient Portal Instructions [facility] - Leadership Thank You Letter [facility] Prescriptions: - cefdinir 300 mg Oral capsule - take 1 capsule ORAL route every 12 hours for 5 days; 10 capsule; Refills: 0, [facility] Product Selection Permitted - Ibuprofen 600 mg Oral tablet - take 1 tablet ORAL route every 6 hours As needed take with food; 20 tablet; [facility] Refills: 0, Product Selection Permitted - Pyridium 200 mg Oral Tablet - take 1 tablet ORAL route every 8 hours for 3 days; 9 tablet; Refills: 0, [facility] Product Selection Permitted Signatures: Dispatcher [employer] EDRashad Hutchison MD MD cha Williams, Irene RN VÍCTOR iw Linsey Mcclellan RN RN ld1 Joceline Land RN RN cm10 Corrections: (The following items were deleted from the chart) 09:54 09:54 Prochlorperazine DC Suppository 25 mg DC once ordered. [facility] 09:54 09:54 CBC+H.LAB.BRZ ordered. EDMS EDMS 09:54 09:54 Urinalysis+U.LAB.BRZ ordered. EDMS EDMS 09:54 09:54 Test, Urine+UC.LAB.BRZ ordered. EDMS EDMS 09:54 09:54 Stone Protocol+CT.RAD.BRZ ordered. EDMS EDMS
--- NOTE | 2025-03-15 12:10 | ER ---
Nurse's Notes [facility] Name: Ara Mercado Age: 39 yrs Sex: Female : 1985 Arrival Date: 03/15/2025 Time: 09:48 Bed 13 Private MD: Diagnosis: Dysuria;Low back pain Presentation: 03/15 10:01 Chief complaint: Patient states: feels like a UTI, having blood in urine and pain in my iw back and lower abd area, started 2 weeks ago. Coronavirus screen: At this time, the client does not indicate any symptoms associated with coronavirus-19. Ebola Screen: No symptoms or risks identified at this time. Initial Sepsis Screen: Does the patient meet any 2 criteria? No. Patient's initial sepsis screen is negative. Does the patient have a suspected source of infection? No. Patient's initial sepsis screen is negative. Risk Assessment: Do you want to hurt yourself or someone else? Patient reports no desire to harm self or others. Onset of symptoms was March 01, 2025. 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 - Infectious Disease History:: Denies. - Social history:: Smoking status: Patient reports the use of cigarette tobacco products, smokes one-half pack cigarettes per day. Screenin:40 [facility] ED Fall Risk Assessment (Adult) History of falling in the last 3 months, cm10 including since admission No falls in past 3 months (0 pts) Confusion or Disorientation No (0 pts) Intoxicated or Sedated No (0 pts) Impaired Gait No (0 pts) Mobility Assist Device Used No (0 pt) Altered Elimination No (0 pt) Score/Fall Risk Level 0 - 2 = Low Risk Oriented to surroundings, Maintained a safe environment, Hourly rounding (assess needs \T\ fall precautionary measures) done. Abuse screen: Denies threats or abuse. Denies injuries from another. Nutritional screening: No deficits noted. Tuberculosis screening: No symptoms or risk factors identified. Assessment: 10:25 General: Appears in no apparent distress. comfortable, Behavior is calm, cooperative. cm10 Pain: Complains of pain in right lower quadrant and left lower quadrant Pain radiates to left flank and right flank Pain currently is 8 out of 10 on a pain scale. Quality of pain is described as sharp, shooting, Pain began 2 weeks. Neuro: Level of Consciousness is awake, alert, obeys commands, Oriented to person, place, time, situation. Respiratory: No deficits noted. Airway is patent Respiratory effort is even, unlabored, Respiratory pattern is regular, symmetrical. GI: Reports nausea. : Reports blood in urine. 12:21 Reassessment: Patient appears in no apparent distress at this time. No changes from ld1 previously documented assessment. c/o pain to flank. Notified ERP. See [facility] for orders. Vital Signs: 10:01 BP 146 / 78; Pulse 90; Resp 16; Temp 98.7; Pulse Ox 98% ; Weight 80.74 kg; Height 5 ft. iw 2 in. ; Pain 8/10; 10:30 BP 133 / 68; Pulse 99; Resp 18; Pulse Ox 99% on R/A; cm10 11:30 BP 132 / 56; Pulse 93; Resp 15; Pulse Ox 99% on R/A; cm10 12:21 BP 127 / 54; Pulse 88; Resp 18; Pulse Ox 100% on R/A; Pain 8/10; ld1 10:01 Body Mass Index 32.56 (80.74 kg, 157.48 cm) iw 10:01 Pain Scale: Adult iw 12:21 Pain Scale: Adult ld1 ED Course: 09:50 Patient arrived in ED. al6 09:52 Rashad Melgoza MD is Attending Physician. bobbi 10:03 Triage completed. iw 10:03 Arm band placed on. iw 10:07 Joceline Land, RN is Primary Nurse. cm10 10:25 Patient has correct armband on for positive identification. Bed in low position. Call cm10 light in reach. Side rails up X2. Pulse ox on. NIBP on. Door closed. Lights dimmed. Warm blanket given. 10:25 Initial lab(s) drawn, by me, sent to lab. Urine collected: clean catch specimen, cm10 cloudy. Inserted saline lock: 20 gauge in right upper arm, using aseptic technique. Blood collected. Flushed with 10 mL NS. 10:27 CBC with Diff Sent. cm10 10:27 Urinalysis w/ reflexes Sent. cm10 10:27 PREGU Sent. cm10 10:27 CMP Sent. cm10 11:28 CT Stone Protocol In Process Unspecified. EDMS 12:23 No provider procedures requiring assistance completed. IV discontinued, intact, ld1 bleeding controlled, No redness/swelling at site. Administered Medications: 09:54 CANCELLED (Duplicate Order): prochlorperazinesuppository [address] once [facility] 10:27 Drug: NS 0.9% IV 1000 ml IV at 1000 ml once; to be given as a bolus over 60 minutes cm10 Route: IV; Rate: 1000 ml; Site: right upper arm; 11:21 Follow up: Response: No adverse reaction; IV Status: Completed infusion; IV Intake: cm10 1000ml 10:37 Drug: HYDROmorphone IVP 1 mg IVP once Route: IVP; Site: right upper arm; cm10 11:21 Follow up: Response: No adverse reaction cm10 10:38 Drug: Ondansetron IVP 4 mg IVP once; over 2 minutes Route: IVP; Site: right upper arm; cm10 11:21 Follow up: Response: No adverse reaction cm10 11:39 Drug: Rocephin IV 1 grams IV at per protocol once; Given slow IV push per pharmacy cm10 instructions Route: IV; Rate: per protocol; Site: right upper arm; 12:10 Drug: Hydrocodone-Acetaminophen PO (7.5 mg-325 mg) 1 tabs PO once; Verbal order per Dr. seema Melgoza Route: PO; 12:22 Follow up: Response: No adverse reaction ld1 Medication: 10:40 VIS not applicable for this client. cm10 Intake: 11:21 IV: 1000ml; Total: 1000ml. cm10 Outcome: 12:09 Discharge ordered by MD. martines 12:23 Discharged to home ambulatory, ld1 12:23 Condition: stable 12:23 Discharge instructions given to patient, Instructed on discharge instructions, follow up and referral plans. medication usage, Demonstrated understanding of instructions, follow-up care, medications, Prescriptions given X 3, 12:23 Patient left the ED. ld1 Signatures: Dispatcher [employer] EDRashad Hutchison MD MD cha Williams, Irene, RN RN iw Linsey Mcclellan RN RN ld1 Joceline Land RN RN cm10 Verenice Short6
[2025-03-15] MEDS ORDERED: HYDROCODONE/APAP 7.5/325 MG TAB ONE (12:12)
[2025-03-15] MEDS ORDERED: ONDANSETRON 4 MG/2 ML VIAL IV PRN (12:17)
[2025-03-15] MEDS ORDERED: ACETAMINOPHEN 500 MG TAB PO PRN (12:17)
[2025-03-15 12:27] VITALS: TEMP 98.7
[2025-03-15 12:33] VITALS: BP 127/54; O2SAT 100
[2025-03-15] MEDS ORDERED: CEFTRIAXONE 1,000 MG in NA CHLORIDE 0.9% 50 ML IVPB SCH (21:00)
== END 2025-03-15 12:23 | disposition home or self-care (01) ==
LOC: ER 09:48
DX: R30.0 Dysuria (principal); M54.50 Low back pain, unspecified; F17.210 Nicotine dependence, cigarettes, uncomplicated
CPT/HCPCS: 96361; 85025; 81001; 36415; 81025; 80053; 76377; 74176; 96375; 96374; 99284; J1171; J2405; J7030; J0696

== ENCOUNTER 2025-03-31 14:02 | Emergency (ER) | payer OTHER, SELFPAY ==
[2025-03-31] MEDS ORDERED: IBUPROFEN 400 MG TAB ONE (15:44)
[2025-03-31] MEDS ORDERED: IBUPROFEN 200 MG TAB PO ONE (15:44)
[2025-03-31] MEDS ORDERED: ONDANSETRON 4 MG (ODT) TAB ONE (15:44)
[2025-03-31] MEDS ORDERED: HYDROCODONE/APAP 5/325 MG TAB ONE (15:44)
--- NOTE | 2025-03-31 16:17 | RAD REPORT ---
EXAM: CT brain without contrast HISTORY: TRAUMA COMPARISON: 01/22/2023 TECHNIQUE: Multiple contiguous axial images were obtained and a CT of the brain without contrast. Sag ittal and coronal reformats were performed. FINDINGS: No evidence of hydrocephalus, intracranial hemorrhage, or extra-axial fluid collection. The brain is normal in morphology. The calvarium is intact. The visualized paranasal sinuses and mastoid air cells are essentially clear . IMPRESSION: No evidence of acute intracranial abnormality. EXAM: CT of the cervical spine without contrast HISTORY: TRAUMA COMPARISON: 05/20/2023 TECHNIQUE: Multiple contiguous axial images were obtained in a CT of the cervical spine without contr ast. Sagittal and coronal reformats were performed. FINDINGS: The vertebral bodies demonstrate normal height and alignment. No evidence of acute fracture or subluxation.. Mild endplate and uncovertebral joint degenerative changes are present. No prevertebral soft tissue swelling is seen. The posterior facets are well aligned. Normal alignment of the skull base with the cervical spine is seen. The lung apices are unremarkable. IMPRESSION: No evidence of acute osseous abnormality of the cervical spine.
--- NOTE | 2025-03-31 16:25 | ER ---
Nurse's Notes [facility] Name: Ara Mercado Age: 39 yrs Sex: Female : 1985 Arrival Date: 03/31/2025 Time: 14:02 Bed DX3 Private MD: Diagnosis: Closed head injury Presentation: 03/31 14:14 Chief complaint: Patient states: the wind caught the door and the door slammed me down iw to the ground , happened today, now is having head pain, neck pain and back pain throughout her entire back, +nausea, + LOC for 30 seconds. Coronavirus screen: At this time, the client does not indicate any symptoms associated with coronavirus-19. Ebola Screen: No symptoms or risks identified at this time. Mechanism of Injury: resulted from a fall, from a standing position. Initial Sepsis Screen: Does the patient meet any 2 criteria? No. Patient's initial sepsis screen is negative. Does the patient have a suspected source of infection? No. Patient's initial sepsis screen is negative. Risk Assessment: Do you want to hurt yourself or someone else? Patient reports no desire to harm self or others. 14:14 Method Of Arrival: Ambulatory iw 14:14 Acuity: CHARISSA 4 iw 16:32 Onset of symptoms was March 31, 2025. ll1 Triage Assessment: 16:31 Neuro: Level of Consciousness is awake, alert, obeys commands, Oriented to person, ll1 place, time, situation, Appropriate for age Moves all extremities. Full function. 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 - Infectious Disease History:: Denies. - Social history:: Smoking status: Patient reports the use of cigarette tobacco products, smokes one-half pack cigarettes per day. Screenin:35 [facility] ED Fall Risk Assessment (Adult) History of falling in the last 3 months, ll1 including since admission Yes- single mechanical fall (1 pt) Confusion or Disorientation No (0 pts) Intoxicated or Sedated No (0 pts) Impaired Gait No (0 pts) Mobility Assist Device Used No (0 pt) Altered Elimination No (0 pt) Score/Fall Risk Level 0 - 2 = Low Risk Maintained a safe environment, Hourly rounding (assess needs \T\ fall precautionary measures) done. Abuse screen: Denies threats or abuse. Nutritional screening: No deficits noted. Tuberculosis screening: No symptoms or risk factors identified. Assessment: 15:34 General: Appears in no apparent distress. Behavior is calm, cooperative, appropriate ll1 for age. Pain: Complains of pain in scalp. Neuro: Reports headache. Musculoskeletal: Reports pain in back. 15:49 Reassessment: No changes from previously documented assessment. Patient and/or family ll1 updated on plan of care and expected duration. Pain level reassessed. 16:30 Reassessment: No changes from previously documented assessment. Patient and/or family ll1 updated on plan of care and expected duration. Pain level reassessed. Patient is alert, oriented x 3, equal unlabored respirations, skin warm/dry/pink. Vital Signs: 14:14 BP 149 / 88; Pulse 92; Resp 16; Temp 98.4; Pulse Ox 99% on R/A; Weight 82.55 kg; Height iw 5 ft. 2 in. ; Pain 8/10; 16:30 BP 144 / 87; Pulse 80; Resp 16; Pulse Ox 99% ; Pain 6/10; ll1 14:14 Body Mass Index 33.29 (82.55 kg, 157.48 cm) iw 14:14 Pain Scale: Adult iw 16:30 Pain Scale: Adult ll1 [place] Coma Score: 14:14 Eye Response: spontaneous(4). Motor Response: obeys commands(6). Verbal Response: iw oriented(5). Total: 15. ED Course: 14:06 Patient arrived in ED. al6 14:12 Scott Mcbride MD is Attending Physician. sp3 14:17 Triage completed. iw 14:17 Arm band placed on. iw 14:44 CT Head C Spine In Process Unspecified. EDMS 15:33 Patient placed in an internal wait recliner, in view of staff members. ll1 15:36 Patient has correct armband on for positive identification. Provided Education on: ER ll1 procedures and process. Cardiac monitoring not applicable on this patient. 16:31 No provider procedures requiring assistance completed. Patient did not have IV access ll1 during this emergency room visit. Administered Medications: 15:48 Drug: HYDROcodone-acetaminophen PO 5 mg-325 mg 2 tabs PO once Route: PO; ll1 16:31 Follow up: Response: No adverse reaction; Pain is decreased; RASS: Alert and Calm (0) ll1 15:48 Drug: Ondansetron Oral Disintegrating Tablet Oral Disintegrating Tablet 4 mg PO once ll1 Route: PO; 16:31 Follow up: Response: No adverse reaction; Nausea is decreased ll1 15:48 Drug: Ibuprofen PO 600 mg PO once Route: PO; ll1 16:31 Follow up: Response: No adverse reaction ll1 Medication: 15:35 VIS not applicable for this client. ll1 Outcome: 16:25 Discharge ordered by . sp3 16:32 Discharged to home ambulatory, 1 16:32 Condition: stable 16:32 Discharge instructions given to patient, Instructed on discharge instructions, follow up and referral plans. Demonstrated understanding of instructions, follow-up care, did not want tramadol RX 16:32 Patient left the ED. 1 Signatures: Dispatcher [employer] EDLyndsay Astudillo RN RN iw Lewis, Lynsay, RN RN ll1 Scott Mcbride MD MD sp3 Verenice Short6
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
[2025-03-31 16:37] VITALS: TEMP 98.4; O2SAT 99
[2025-03-31 16:38] VITALS: BP 144/87
== END 2025-03-31 16:32 | disposition home or self-care (01) ==
LOC: ER 14:02
DX: S09.90XA Unspecified injury of head, initial encounter (principal); R51.9 Headache, unspecified; M54.2 Cervicalgia
CPT/HCPCS: 70450; 72125; 99283; Q0162